=== PATIENT | male | born 1975 | race Hispanic/Latino ===

== ENCOUNTER 2017-06-10 07:49 | Day surgery (SDC) | payer BC ==
[2017-06-09 15:00] LABS: Absolute Lymphocytes (CBC) 1.8 K/uL (0.7-4.9); Absolute Monocytes 0.6 K/uL (0.1-1.3); Absolute Neutrophil 6.9 K/uL (1.8-8.0); Basophils % 0.4 % (0-1.3); Eosinophils % 0.8 % (0-4.4); Hematocrit 39.3 % (39.6-49.0); Lymphocytes % 19.4 % (15.3-44.8); MCH 30.4 pg (27.0-35.0); MCV 92.5 fL (80-100); MPV 8.1 fL (7.6-11.3); Monocytes % 6.4 % (3.3-12.3); RBC Red Blood Cell Count 4.25 M/uL (4.33-5.43)
--- NOTE | 2017-06-09 15:00 | RAD REPORT ---
EXAM DESCRIPTION: Salud Dhillon (2 Views)06/09/2017 2:55 pm CLINICAL HISTORY: Preop COMPARISON: 2013 FINDINGS: The lungs appear clear of acute infiltrate. The heart is normal size IMPRESSION: No acute abnormalities displayed
[2017-06-09 15:18] LABS: Potassium 5.3 mEq/L (3.6-5.0)
--- NOTE | 2017-06-09 17:58 | EKG ---
Test Date: 2017-06-09 Test Time: 14:22:32 Supervisor Train Operations: MERY MEASUREMENT RESULTS: Intervals: Rate: 51 NC: 168 QRSD: 92 QT: 386 QTc: 355 [place]: P: 7 NC: 168 QRS: 35 T: 24 INTERPRETIVE STATEMENTS: Sinus bradycardia with sinus arrhythmia Otherwise normal ECG Compared to ECG 01/06/2016 08:18:22 Sinus rhythm no longer present Electronically Signed On 06-09-17 17:57:56 CDT by Alexander Lundy
[2017-06-10] MEDS ORDERED: CEFAZOLIN/SWI 1gm 1 GM/10 ML SYR ONE (08:07)
[2017-06-10] MEDS ORDERED: NA CHLORIDE 0.9% 1,000 ML ONE (08:07)
[2017-06-10] MEDS ORDERED: COLLAGENASE 30 GM OINTMENT TOP ONE (08:54)
[2017-06-10] MEDS ORDERED: PROPOFOL 200 MG/20 ML VIAL IV ONE (09:01)
[2017-06-10] MEDS ORDERED: LIDOCAINE 2% MPF 5 ML VIAL ONE (09:02)
[2017-06-10] MEDS ORDERED: MIDAZOLAM HCL 2 MG/2 ML INJ ONE (09:02)
[2017-06-10] MEDS ORDERED: FENTANYL CITR 100 MCG/2 ML ONE (09:03)
[2017-06-10 10:06] VITALS: O2SAT 100
[2017-06-10] MEDS: MEPERIDINE HCL 50 MG/ML AMP ONE ×2 (10:06→10:14)
[2017-06-10] MEDS ORDERED: CODEINE 30MG/APAP 300MG TAB ONE (10:58)
[2017-06-10 11:06] VITALS: BP 132/74; TEMP 98.2
--- NOTE | 2017-06-10 20:52 | OP ---
Date of Procedure: 06/10/2017 Surgeon: Duglas Saunders MD Preoperative Diagnosis: Right scrotal abscess. Postoperative Diagnosis: Right scrotal abscess. Procedure Performed: Incision, drainage, and debridement of right scrotal abscess. Estimated Blood Loss: Minimal. Specimen: Pus. Findings: As above. Anesthesia: General. Complications: None. Disposition: The patient tolerated the procedure in stable condition and taken to Recovery in good g eneral condition. Procedure In Detail: The patient was brought to the OR and placed in supine position. General anest hesia was begun. The patient was prepped and draped in usual sterile fashion in the lithotomy positi on. Then Marcaine 0.5% was infiltrated locally. A 15-blade was used to make a 3 cm incision. Subcu taneous tissue was divided. Pus evacuated. Loculation broken up. Necrotic tissue debrided. Wound irrigated. Bleeding controlled with pressure. Wet-to-dry normal saline dressing change applied. The patient tolerated the procedure in stable condition and taken to Recovery in good general condition. /MODL Voice ID: [id number] Report ID: [id number]
--- NOTE | 2017-06-10 20:58 | DS ---
Date of Discharge: 06/10/2017 Discharge Note: The patient will go to Day Surgery and home when stable. Disposition: Home. Condition: Stable. Discharge Instructions: Resume home medications and diet. Activity as tolerated. No heavy lifting. Remove outer dressing in a.m. wet-to-dry normal saline dressing changes daily. Tylenol No. 3 one t ablet p.o. q.4 p.r.n. pain, and the patient has a prescription for Levaquin already. Follow up in my office 1-2 weeks. SHAHLA/TAMIKO Voice ID: [id number] Report ID: [id number]
== END 2017-06-10 11:31 | disposition home or self-care (01) ==
LOC: OR 07:49
PROVIDERS: ATTEND Surgery
PROC: 0V950ZZ Drainage of Scrotum, Open Approach (ICD-10-PCS; principal; 2017-06-10 09:00)
DX: N49.2 Inflammatory disorders of scrotum (principal)
CPT/HCPCS: 36415; 71046; 80048; 82962; 85025; 87070; 87205; 93005; J0690; J2175; J2250; J3010; J3590; J7030

== ENCOUNTER 2018-09-08 08:29 | Emergency (ER) | payer BC ==
[2018-09-08] MEDS ORDERED: NA CHLORIDE 0.9% 1,000 ML ONE (08:41)
[2018-09-08 08:55] LABS: Absolute Lymphocytes (CBC) 2.9 K/uL (0.7-4.9); Basophils % 0.4 % (0-1.3); Hematocrit 30.1 % (39.6-49.0); MPV 8.2 fL (7.6-11.3); RBC Red Blood Cell Count 3.19 M/uL (4.33-5.43)
[2018-09-08 09:31] LABS: Potassium 3.9 mmol/L (3.5-5.1)
--- NOTE | 2018-09-08 09:59 | RAD REPORT ---
EXAM DESCRIPTION: CT - Head C Spine Cap Wo Con - 09/08/2018 9:17 am CLINICAL HISTORY: Fall, syncopal episode, head, neck, chest and abdomen pain, history of gastric byp ass COMPARISON: None. TECHNIQUE: Axial [address] head images were obtained. Axial [address] cervical spine images were obtain ed with sagittal and coronal reconstruction images reviewed. Axial 5 mm images of the chest, abdomen and pelvis were obtained. All CT scans are performed using dose optimization technique as appropriate and may include automated exposure control or mA/KV adjustment according to patient size. FINDINGS: No intracranial hemorrhage, mass or edema. No midline shift or abnormal fluid collection. Mastoid air cells are clear. Facial bones, orbits and sinuses are separately detailed. . No skull fra cture. Cervical bodies are normal in height and alignment. No fracture or acute bone finding.Minimal disc sp alex narrowing and endplate spurring at C5-6. No canal or foramen stenosis suspected.No prevertebral s oft tissue thickening or paraspinal mass.Central canal detail is inherently limited on CT imaging. CT chest shows no pneumothorax, pulmonary contusion or pleural fluid collection. No mediastinal hem atoma and the aorta and pulmonary arteries are unremarkable. No chest will mass or abnormal axillary finding. No displaced rib fracture or other significant bony finding. CT abdomen and pelvis show no injury to solid abdominal viscera. Cholecystectomy clips are present. N o biliary tree dilatation. Gastric bypass surgical changes seen. No bowel injury or significant findi ng. No free air, free fluid or abnormal stranding. No hernia, mass or bulky lymphadenopathy. No urin shefali bladder abnormality. Slight wedging of the T11 and T12 bodies noted. This is not uncommonly seen even in asymptomatic yuri ents. Correlation is needed with any back pain symptoms referable to the thoracolumbar junction. No a cute fracture planes are seen. Patient has degenerative gas in the disc spaces of L2-3, L3-4 and L4-5 . Central canal detail is limited. IMPRESSION: No hemorrhage, edema or acute CT Head finding. Facial bones, orbits and sinuses are sep arately detailed. Minimal cervical spine degenerative change with no acute finding. Central canal detail is inherently limited regarding assessment of disc herniation or cord injury. No significant CT Chest finding. No significant CT Abdomen and Pelvis finding. Patient has mild wedging of the T11 and T12 vertebrae. An acute fracture line is not seen on CT imagi ng. Correlation is needed with any acute symptoms referable to the thoracolumbar junction. MR imaging can be performed as warranted. Patient has significant for age degenerative change at L2-3, L3-4 and L4-5 disc spaces. Again, Centra l canal detail is limited regarding accurate assessment of disc bulge or herniation.
--- NOTE | 2018-09-08 10:04 | RAD REPORT ---
EXAM DESCRIPTION: CT - Facial Bones W/ Mpr - 09/08/2018 9:17 am CLINICAL HISTORY: Dizziness, fall, syncope, left-sided facial trauma COMPARISON: None. TECHNIQUE: Axial 2 millimeter thick images of the facial bones were obtained with sagittal and coron al reconstruction imaging. All CT scans are performed using dose optimization technique as appropriate and may include automated exposure control or mA/KV adjustment according to patient size. FINDINGS: Mandible is intact. Condyles are normally positioned. Mastoid air cells are clear. Mild mu cosal thickening changes are present along the floor of each maxillary sinus with trace mucosal thick ening in the ethmoid air cells. No acute sinus finding. No facial bone fracture is identified. Very m inimal left deviation of the mid nasal septum seen. There is subtle cortical irregularity of the nasal bone near the anterior tip. However, this is not c onfirmed as a fracture. No globe or orbital content abnormality. No foreign body in the soft tissues. On CT imaging no signif icant mass or hematoma. Patient has a very minimal edema or contusion pattern in the subcutaneous fat overlying the anterolateral left maxilla. IMPRESSION: Minimal contusion or edema changes in the subcutaneous fatty tissues left maxilla region . No foreign body or air in the soft tissues. No facial bone fracture.
[2018-09-08 10:45] LABS: Urine Blood NEGATIVE (NEG); Urine Glucose NEGATIVE (NEG); Urine Protein 1+ (NEG)
[2018-09-08] MEDS ORDERED: HYDROCODONE/APAP 10/325 TAB ONE (11:20)
[2018-09-08] MEDS ORDERED: LIDOCAINE 1% MPF 5 ML VIAL ONE (11:24)
--- NOTE | 2018-09-08 11:43 | ER ---
Nurse's Notes [facility] Name: Rhett Ayers Age: 42 yrs Sex: Male : 1975 Arrival Date: 09/08/2018 Time: 08:34 Bed 13 Private MD: Diagnosis: Syncope and collapse;Superficial injury of head;Lip laceration Presentation: 09/08 08:35 Presenting complaint: EMS states: Patient was feeling dizzy, generally not feeling ss well, stepped out of care, walked approximately 5-10 feet and had a syncopal episode, falling face first onto concrete. Patient is awake and alert on arrival to ED. Asked about his wallet twice and had forgotten he already asked about it. C/o pain to L side of face and L lateral chest wall. Transition of care: patient was not received from another setting of care. Onset of symptoms was September 08, 2018. Risk Assessment: Do you want to hurt yourself or someone else? Patient reports no desire to harm self or others. Initial Sepsis Screen: Does the patient meet any 2 criteria? No. Patient's initial sepsis screen is negative. Does the patient have a suspected source of infection? No. Patient's initial sepsis screen is negative. Care prior to arrival: Two failed IV attempts, BGL 170. 08:35 Method Of Arrival: EMS: [facility] ss 08:35 Acuity: SANTIAG[place] 1 ss 08:35 Mechanism of Injury: Fall from standing position. Trauma event details: Injury occurred ss in the [facility], Injury occurred: in a public building. Injury occurred: September 08, 2018. Trauma Activation: Physician: ED Physician; Name: Noe; Notified At: 08:20; Arrived At: 08:20 Physician: General Surgeon; Name: ; Notified At: 08:20; Arrived At: Physician: Radiology; Name: Siomara Sales; Notified At: 08:20; Arrived At: 08:23 Physician: Respiratory; Name: ; Notified At: 08:20; Arrived At: Physician: Lab; Name: ; Notified At: 08:20; Arrived At: Trauma Activation: Alert Physician: ED Physician; Name: ; Notified At: ; Arrived At: Physician: General Surgeon; Name: ; Notified At: ; Arrived At: Physician: Radiology; Name: ; Notified At: ; Arrived At: Physician: Respiratory; Name: ; Notified At: ; Arrived At: Physician: Lab; Name: ; Notified At: ; Arrived At: Historical: - Allergies: 08:40 No Known Allergies; ss - PMHx: 08:40 Diabetes - NIDDM; Hypertension; orthostatic hypotension; PUD; ss - PSHx: 08:40 Gastric Bypass; ss - Immunization history:: Adult Immunizations up to date. - Social history:: Smoking status: Patient/guardian denies using tobacco. - Immunization history: Last tetanus immunization: - up to date. - Ebola Screening: : Patient denies exposure to infectious person Patient denies travel to an Ebola-affected area in the 21 days before illness onset. Screenin:09 Abuse screen: Denies threats or abuse. Denies injuries from another. Nutritional ss screening: No deficits noted. Tuberculosis screening: Never had TB. Fall Risk Fall in past 12 months (25 points). Secondary diagnosis (15 points) syncope/ hypotension. IV access (20 points). Ambulatory Aid- None/Bed Rest/Nurse Assist (0 pts). Gait- Normal/Bed Rest/Wheelchair (0 pts) Mental Status- Oriented to own ability (0 pts). Primary Survey: 08:35 NO uncontrolled hemorrhage observed. A: The patient is alert. Airway: patent, No ss supplemental oxygen in use on arrival. Oral cavity: clear, Trachea midline. Breathing/Chest: Respiratory pattern: regular, Respiratory effort: spontaneous, unlabored, Breath sounds: clear, bilaterally. Chest inspection: symmetrical rise and fall of the chest. Circulation: Pulses: palpable right radial artery, right posterior tibial artery, left radial artery and left posterior tibial artery. Skin color: pink. Disability Alert. Exposure/Environment: There is no evidence of uncontrolled external bleeding. No obvious injuries are noted at this time. 08:50 Reassessment Airway Airway Patent Breathing/Chest Respiratory pattern Regular rb1 Respiratory effort Spontaneous Unlabored Breath sounds Clear Chest inspection Symmetrical Circulation Heart rhythm Sinus donna Heart tones Present Pulses Palpable Color [place] Temperature Warm Disability Alert. Secondary Survey: 08:35 HEENT: Face Other dry blood noted to mouth, no active bleeding at this time. Eyes: No ss injury or deformity noted. Ears: clear Nose: clear Throat: No injury or deformity noted. : Reports penile swelling. Patient is currently on antibiotic therapy for UTI treatment. Musculoskeletal: Circulation, motion, and sensation intact. Range of motion: intact in all extremities, Swelling absent. 08:50 Gastrointestinal: No deficits noted. rb1 Assessment: 08:33 General: Appears uncomfortable, Behavior is calm, cooperative, Reports intermittent ss fatigue and dizziness since yesterday evening. 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 reports that patient blood pressure was low last night. Denies fever, feeling ill. Pain: Complains of pain in L side of face, L lateracl chest wall Pain currently is 9 out of 10 on a pain scale. Quality of pain is described as aching, tender, Is continuous, Aggravated by increased activity, repositioning. Neuro: Level of Consciousness is awake, alert, obeys commands, Oriented to person, place, time, situation, Tester/Lift Trucker are equal bilaterally Moves all extremities. Full function Speech is normal, Facial symmetry appears normal, Pupils are PERRLA. Neuro: Reports dizziness, since yesterday headache in entire since after syncopal episode. Cardiovascular: Pulses are palpable in right radial artery, right posterior tibial artery, left radial artery and left posterior tibial artery Rhythm is sinus bradycardia. Respiratory: Airway is patent Respiratory effort is even, unlabored, Respiratory pattern is regular, symmetrical, Breath sounds are clear bilaterally. Denies cough, shortness of breath labored breathing, pain with respiration, pain with cough, pain with movement, air hunger. GI: Patient currently denies abdominal pain, diarrhea, nausea, vomiting. : Reports currently taking cipro for treatment of UTI. EENT: Nares are clear no obvious chips in teeth noted. Patient believes he may have a small chip in one of his teeth because he feels some grit in his mouth. No foreign body noted. Oral mucosa is moist. Throat is clear. Derm: Skin is intact, is healthy with good turgor, Skin is pink, warm \T\ dry. normal, Skin temperature is warm. Musculoskeletal: Circulation, motion, and sensation intact. Range of motion: intact in all extremities, Swelling present in upper vermilion border. Injury Description: 0.5-1.0 cm laceration noted to L upper lip. 09:09 Reassessment: Accompanied patient to CT now. Patient is awake, alert and oriented x 3. ss Respirations remain even and unlabored. 09:24 Reassessment: back from CT. at bedside. Patient c/o only of L sided facial pain, L ss lateral chest wall pain. Respirations are even and unlabored. A\T\O x3. 10:20 Reassessment: Patient appears in no apparent distress at this time. Patient and/or rb1 family updated on plan of care and expected duration. Pain level reassessed. Patient is alert, oriented x 3, equal unlabored respirations, skin warm/dry/pink. 11:20 Reassessment: Patient appears in no apparent distress at this time. No changes from rb1 previously documented assessment. Family at bedside. 12:00 Reassessment: Provider at bedside suturing the pt. lip. rb1 12:10 Reassessment: Discharge pending due to provider performing wound care at bedside. rb1 Vital Signs: 08:34 BP 76 / 49; Pulse 54; Resp 16; Pulse Ox 100% on R/A; Weight 117.03 kg; Height 6 ft. 2 ss in. (187.96 cm); Pain 9/10; 08:35 Temp 97.9(O); ss 09:01 BP 84 / 37; Pulse 52; ss 09:22 BP 96 / 65; Pulse 48; Resp 16; Pulse Ox 100% on R/A; ss 10:20 BP 98 / 59; Pulse 44; Resp 12; Temp 98.0(O); Pulse Ox 100% on R/A; Pain 9/10; rb1 11:20 BP 106 / 73; Pulse 50; Resp 13; Temp 98.1(O); Pulse Ox 100% on R/A; Pain 9/10; rb1 12:20 BP 105 / 71; Pulse 51; Resp 17; Temp 98.1(O); Pulse Ox 100% on R/A; Pain 0/10; rb1 08:34 Body Mass Index 33.12 (117.03 kg, 187.96 cm) Ivan Coma Score: 08:35 Eye Response: spontaneous(4). Verbal Response: oriented(5). Motor Response: obeys ss commands(6). Total: 15. 09:22 Eye Response: spontaneous(4). Verbal Response: oriented(5). Motor Response: obeys ss commands(6). Total: 15. Trauma Score (Adult): 08:35 Eye Response: spontaneous(1); Verbal Response: oriented(1); Motor Response: obeys ss commands(2); Systolic BP: 76 to 89 mm Hg(3); Respiratory Rate: 10 to 29 per min(4); Ivan Score: 15; Trauma Score: 11 09:22 Eye Response: spontaneous(1); Verbal Response: oriented(1); Motor Response: obeys ss commands(2); Systolic BP: > 89 mm Hg(4); Respiratory Rate: 10 to 29 per min(4); Ivan Score: 15; Trauma Score: 12 10:20 Eye Response: spontaneous(1); Verbal Response: oriented(1); Motor Response: obeys rb1 commands(2); Systolic BP: > 89 mm Hg(4); Respiratory Rate: 10 to 29 per min(4); [place] Score: 15; Trauma Score: 12 11:20 Eye Response: spontaneous(1); Verbal Response: oriented(1); Motor Response: obeys rb1 commands(2); Systolic BP: > 89 mm Hg(4); Respiratory Rate: 10 to 29 per min(4); Ivan Score: 15; Trauma Score: 12 12:20 Eye Response: spontaneous(1); Verbal Response: oriented(1); Motor Response: obeys rb1 commands(2); Systolic BP: > 89 mm Hg(4); Respiratory Rate: 10 to 29 per min(4); Ivan Score: 15; Trauma Score: 12 NIH Stroke Scale Scores: 08:35 NIHSS Score: 0 ss ED Course: 08:34 Patient arrived in ED. ss 08:34 Arm band placed on right wrist. ss 08:35 Patient maintains SpO2 saturation greater than 95% on room air. ss 08:38 Andrés Liu MD is Attending Physician. kdr 08:39 Triage completed. ss 08:40 Patient has correct armband on for positive identification. Placed in gown. Bed in low ss position. Call light in reach. Side rails up X2. cardiac monitor on. Pulse ox on. NIBP on. Warm blanket given. 08:40 Thermoregulation: warm blanket given to patient. rb1 08:45 Inserted saline lock: 22 gauge in right antecubital area, using aseptic technique. ss Blood collected. 08:46 EKG done, by calibration technician. reviewed by Andrés Liu MD. sm3 09:20 CT Traumagram (Head C Spine CAP wo con) In Process Unspecified. EDMS 09:20 Facial Bones W/ Mpr In Process Unspecified. EDMS 09:23 Claudine Werner, RN is Primary Nurse. ss 12:30 No provider procedures requiring assistance completed. IV discontinued, intact, rb1 bleeding controlled, No redness/swelling at site. Pressure dressing applied. Administered Medications: 08:45 Drug: NS 0.9% 1000 ml Route: IV; Rate: 1 bolus; Site: right antecubital; ss 09:30 Follow up: IV Status: Completed infusion; IV Intake: 1000ml ss 11:23 Drug: [place] 10 mg-325 mg 1 tabs Route: PO; rb1 Intake: 09:30 IV: 1000ml; Total: 1000ml. ss 12:30 PO: 25ml (Water); IV: 1000ml (IV Fluid); Total: 2025ml. rb1 Outcome: 11:42 Discharge ordered by . kdr 11:53 Patient's length of stay in the Emergency Department was greater than 2 hours. rb1 POCPatient's length of stay extended due to 12:30 Discharged to home via wheelchair, with family. rb1 12:30 Condition: stable 12:30 Discharge instructions given to patient, Instructed on discharge instructions, follow up and referral plans. medication usage, Demonstrated understanding of instructions, follow-up care, medications, Prescriptions given X 1. 12:35 Patient left the ED. rb1 NIH Stroke Scale - NIH Stroke Score Date: 09/08/2018 Time: 08:35 Total Score = 0 1a. Level of Consciousness (LOC) - 0(Alert) 1b. Level of Consciousness (LOC) (Year \T\ Age) - 0(Both) 1c. LOC Commands (Open \T\ Closes Eyes/Breaster) - 0(Both) 2. Best Gaze (Lateral Gaze Paresis) - 0(Normal) 3. Visual Field Loss - 0(No visual loss) 4. Facial Palsy - 0(Normal) 5a. Left Arm: Motor (10-second hold) - 0(No drift) 5b. Right Arm: Motor (10-second hold) - 0(No drift) 6a. Left Leg: Motor (5-second hold - always test supine) - 0(No drift) 6b. Right Leg: Motor (5-second hold - always test supine) - 0(No drift) 7. Limb Ataxia (finger/nose \T\ heel/gamez - test with eyes open) - 0(Absent) 8. Sensory Loss (pinprick arms/legs/face) - 0(Normal) 9. Best Language: Aphasia (description/naming/reading) - 0(No aphasia) 10. Dysarthria (speech clarity - read or repeat words) - 0(Normal) 11. Extinction and Inattention (visual/tactile/auditory/spatial/personal) - 0(No abnormality) Initials: ss Signatures: Dispatcher [employer] EDMS Andrés Liu MD MD [facility] Claudine Werner RN RN ss Sade Fisher RN RN rb1 Ольга [email or web address] Corrections: (The following items were deleted from the chart) 09:25 08:35 Ivan Score=15, Trauma Score=12, [facility] 18:28 12:30 Discharge instructions given to patient, Instructed on discharge rb1 instructions, follow up and referral plans. Demonstrated understanding of instructions, follow-up care, rb1
--- NOTE | 2018-09-08 11:43 | EDPHYS ---
Physician Documentation [facility] Name: Rhett Ayers Age: 42 yrs Sex: Male : 1975 Arrival Date: 09/08/2018 Time: 08:34 Bed 13 Private MD: ED Physician Andrés Liu HPI: 09/08 08:42 This 42 yrs old Male presents to ER via EMS with complaints of Syncope. kdr 08:42 The patient has experienced syncope, became unresponsive, collapsed. Onset: The kdr symptoms/episode began/occurred suddenly, just prior to arrival. Duration: This was a single episode, Brief. Context: the episode(s) was witnessed, by a bystander, occurred at a store, on a street or driveway, occurred while the patient was standing, walking, Just prior to the episode the patient experienced. Associated injury: Head/face: left jain, left frontal area and left side of forehead, contusion, laceration, pain, swelling, tenderness. Associated signs and symptoms: Pertinent positives: weakness, Hypotension. Current symptoms: Currently, the patient is not experiencing any symptoms, Mouth and left facial pain s/p fall. The patient has not experienced similar symptoms in the past. The patient has not recently seen a physician. Historical: - Allergies: 08:40 No Known Allergies; ss - PMHx: 08:40 Diabetes - NIDDM; Hypertension; orthostatic hypotension; PUD; ss - PSHx: 08:40 Gastric Bypass; ss - Immunization history:: Adult Immunizations up to date. - Social history:: Smoking status: Patient/guardian denies using tobacco. - Immunization history: Last tetanus immunization: - up to date. - Ebola Screening: : Patient denies exposure to infectious person Patient denies travel to an Ebola-affected area in the 21 days before illness onset. ROS: 08:42 Constitutional: Negative for fever, chills, and weight loss, Eyes: Negative for injury, kdr pain, redness, and discharge, ENT: Negative for injury, pain, and discharge, Neck: Negative for injury, pain, and swelling, Cardiovascular: Negative for chest pain, palpitations, and edema, Respiratory: Negative for shortness of breath, cough, wheezing, and pleuritic chest pain, Abdomen/GI: Negative for abdominal pain, nausea, vomiting, diarrhea, and constipation, Back: Negative for injury and pain, : Negative for injury, bleeding, discharge, and swelling, MS/Extremity: Negative for injury and deformity, Skin: Negative for injury, rash, and discoloration he does have [id number] and contusioni to the left lateral upper lip Psych: Negative for depression, anxiety, suicide ideation, homicidal ideation, and hallucinations, Allergy/Immunology: Negative for hives, rash, and allergies, Endocrine: Negative for neck swelling, polydipsia, polyuria, polyphagia, and marked weight changes, Hematologic/Lymphatic: Negative for swollen nodes, abnormal bleeding, and unusual bruising. 08:42 Neuro: Positive for dizziness, syncope, Negative for altered mental status, gait disturbance, headache, hearing loss, loss of consciousness, numbness, seizure activity, speech changes, tingling, tremor, visual changes, weakness. Exam: 08:42 Constitutional: This is a well developed, well nourished patient who is awake, alert, kdr and in no acute distress. Head/Face: Normocephalic - minor contuions and abrasions to left side of head and face Eyes: Pupils equal round and reactive to light, extra-ocular motions intact. Lids and lashes normal. Conjunctiva and sclera are non-icteric and not injected. Cornea within normal limits. Periorbital areas with no swelling, redness, or edema. Neck: Trachea midline, no thyromegaly or masses palpated, and no cervical lymphadenopathy. Supple, full range of motion without nuchal rigidity, or vertebral point tenderness. No Meningismus. Chest/axilla: Normal chest wall appearance and motion. Nontender with no deformity. No lesions are appreciated. Cardiovascular: Regular rate and rhythm with a normal S1 and S2. No gallops, murmurs, or rubs. Normal PMI, no JVD. No pulse deficits. Respiratory: Lungs have equal breath sounds bilaterally, clear to auscultation and percussion. No rales, rhonchi or wheezes noted. No increased work of breathing, no retractions or nasal flaring. Abdomen/GI: Soft, non-tender, with normal bowel sounds. No distension or tympany. No guarding or rebound. No evidence of tenderness throughout. Back: No spinal tenderness. No costovertebral tenderness. Full range of motion. MS/ Extremity: Pulses equal, no cyanosis. Neurovascular intact. Full, normal range of motion. Neuro: Awake and alert, GCS 15, oriented to person, place, time, and situation. Cranial nerves II-XII grossly intact. Motor strength 5/5 in all extremities. Sensory grossly intact. Cerebellar exam normal. Normal gait. Psych: Awake, alert, with orientation to person, place and time. Behavior, mood, and affect are within normal limits. 08:42 Skin: injury, laceration(s), the wound is approximately 1 cm(s), with a depth of .5 cm(s), of the gums, upper vermilion border and left corner of mouth. Vital Signs: 08:34 BP 76 / 49; Pulse 54; Resp 16; Pulse Ox 100% on R/A; Weight 117.03 kg; Height 6 ft. 2 ss in. (187.96 cm); Pain 9/10; 08:35 Temp 97.9(O); ss 09:01 BP 84 / 37; Pulse 52; ss 09:22 BP 96 / 65; Pulse 48; Resp 16; Pulse Ox 100% on R/A; ss 10:20 BP 98 / 59; Pulse 44; Resp 12; Temp 98.0(O); Pulse Ox 100% on R/A; Pain 9/10; rb1 11:20 BP 106 / 73; Pulse 50; Resp 13; Temp 98.1(O); Pulse Ox 100% on R/A; Pain 9/10; rb1 12:20 BP 105 / 71; Pulse 51; Resp 17; Temp 98.1(O); Pulse Ox 100% on R/A; Pain 0/10; rb1 08:34 Body Mass Index 33.12 (117.03 kg, 187.96 cm) NIH Stroke Scale Scores: 08:35 NIHSS Score: 0 Ivan Coma Score: 08:35 Eye Response: spontaneous(4). Verbal Response: oriented(5). Motor Response: obeys ss commands(6). Total: 15. 09:22 Eye Response: spontaneous(4). Verbal Response: oriented(5). Motor Response: obeys ss commands(6). Total: 15. Trauma Score (Adult): 08:35 Eye Response: spontaneous(1); Verbal Response: oriented(1); Motor Response: obeys ss commands(2); Systolic BP: 76 to 89 mm Hg(3); Respiratory Rate: 10 to 29 per min(4); Ivan Score: 15; Trauma Score: 11 09:22 Eye Response: spontaneous(1); Verbal Response: oriented(1); Motor Response: obeys ss commands(2); Systolic BP: > 89 mm Hg(4); Respiratory Rate: 10 to 29 per min(4); Ivan Score: 15; Trauma Score: 12 10:20 Eye Response: spontaneous(1); Verbal Response: oriented(1); Motor Response: obeys rb1 commands(2); Systolic BP: > 89 mm Hg(4); Respiratory Rate: 10 to 29 per min(4); [place] Score: 15; Trauma Score: 12 11:20 Eye Response: spontaneous(1); Verbal Response: oriented(1); Motor Response: obeys rb1 commands(2); Systolic BP: > 89 mm Hg(4); Respiratory Rate: 10 to 29 per min(4); Ivan Score: 15; Trauma Score: 12 12:20 Eye Response: spontaneous(1); Verbal Response: oriented(1); Motor Response: obeys rb1 commands(2); Systolic BP: > 89 mm Hg(4); Respiratory Rate: 10 to 29 per min(4); [place] Score: 15; Trauma Score: 12 Laceration: 13:15 Wound Repair of 3cm ( 1.2in ) subcutaneous laceration to left upper lip - internal. jr8 Distal neuro/vascular/tendon intact. Anesthesia: Local anesthetic administered with 1.5 mls of 1% lidocaine. Wound prep: Wound explored extensively, Copious irrigation. Skin closed with 2 5-0 fast absorbing chromic using simple sutures and sterile technique. Patient tolerated well. 13:17 Wound Repair of 1.5cm ( 0.6in ) subcutaneous laceration to left upper lip - external. jr8 Moderate contamination.. Distal neuro/vascular/tendon intact. Anesthesia: Local anesthetic administered with .7 mls of 1% lidocaine. Wound prep: Particulate matter removal of gravel by me, Wound explored extensively, Copious irrigation. Skin closed with 1 5-0 Prolene using simple sutures and sterile technique. Patient tolerated well. MDM: 08:42 Data reviewed: vital signs, nurses notes, lab test result(s), radiologic studies. kdr Counseling: I had a detailed discussion with the patient and/or guardian regarding: the historical points, exam findings, and any diagnostic results supporting the discharge/admit diagnosis, lab results, radiology results. 11:42 Patient medically screened. kdr 09/08 08:39 Order name: Basic Metabolic Panel; Complete Time: 10:40 kdr 09/08 13:58 Interpretation: CRE 2.99. kdr 09/08 08:39 Order name: CBC with Diff; Complete Time: 10:40 kdr 09/08 08:39 Order name: CT Traumagram (Head C Spine CAP wo con); Complete Time: 10:40 kdr 09/08 08:39 Order name: Creatinine for Radiology; Complete Time: 10:40 kdr 09/08 08:39 Order name: Type And Screen; Complete Time: 10:40 kdr 09/08 10:33 Order name: Urine Dipstick--Ancillary (enter results) eb 09/08 08:39 Order name: Labs collected and sent; Complete Time: 09:09 kdr 09/08 08:58 Order name: Facial Bones W/ Mpr; Complete Time: 10:40 EDMS Administered Medications: 08:45 Drug: NS 0.9% 1000 ml Route: IV; Rate: 1 bolus; Site: right antecubital; ss 09:30 Follow up: IV Status: Completed infusion; IV Intake: 1000ml ss 11:23 Drug: [place] 10 mg-325 mg 1 tabs Route: PO; rb1 Disposition: 14:21 Co-signature as Attending Physician, Andrés Liu MD I agree with the assessment and kdr plan of care. Disposition: 09/08/18 11:42 Discharged to Home. Impression: Syncope and collapse, Superficial injury of head, Lip laceration. - Condition is Stable. - Discharge Instructions: Nonspecific Chest Pain, Chkg-wz-Pfns, Facial Laceration, Tsws-wy-Xmax, Syncope, Ydsw-wb-Bzzm, Head Injury, Adult, Ytfe-yc-Ywch, Blunt Chest Trauma. - Prescriptions for Tylenol- Codeine #3 300-30 mg Oral Tablet - take 2 tablets by ORAL route every 6 hours As needed; 6 tablet. - Medication Reconciliation Form, Thank You Letter, Work release form form. - Follow up: Private Physician; When: 2 - 3 days; Reason: If symptoms return, Further diagnostic work-up, Recheck today's complaints, Continuance of care, Re-evaluation by your physician. - Problem is new. - Symptoms have improved. - Notes: External sutures out in 5 - 7 days NIH Stroke Scale - NIH Stroke Score Date: 09/08/2018 Time: 08:35 Total Score = 0 1a. Level of Consciousness (LOC) - 0(Alert) 1b. Level of Consciousness (LOC) (Year \T\ Age) - 0(Both) 1c. LOC Commands (Open \T\ Closes Eyes/Pharmacy Services Representative) - 0(Both) 2. Best Gaze (Lateral Gaze Paresis) - 0(Normal) 3. Visual Field Loss - 0(No visual loss) 4. Facial Palsy - 0(Normal) 5a. Left Arm: Motor (10-second hold) - 0(No drift) 5b. Right Arm: Motor (10-second hold) - 0(No drift) 6a. Left Leg: Motor (5-second hold - always test supine) - 0(No drift) 6b. Right Leg: Motor (5-second hold - always test supine) - 0(No drift) 7. Limb Ataxia (finger/nose \T\ heel/gamez - test with eyes open) - 0(Absent) 8. Sensory Loss (pinprick arms/legs/face) - 0(Normal) 9. Best Language: Aphasia (description/naming/reading) - 0(No aphasia) 10. Dysarthria (speech clarity - read or repeat words) - 0(Normal) 11. Extinction and Inattention (visual/tactile/auditory/spatial/personal) - 0(No abnormality) Initials: Signatures: Dispatcher [employer] EDMS Andrés Liu MD MD kdr Claudine Werner RN RN Tremayne Moses PA PA 8 Sade Fisher, RN RN rb1 Corrections: (The following items were deleted from the chart) 12:35 11:42 09/08/2018 11:42 Discharged to Home. Impression: Syncope and collapse; rb1 Superficial injury of head; Lip laceration. Condition is Stable. Forms are Medication Reconciliation Form, Thank You Letter, Antibiotic Education, Prescription Opioid Use. Follow up: Private Physician; When: 2 - 3 days; Reason: If symptoms return, Further diagnostic work-up, Recheck today's complaints, Continuance of care, Re-evaluation by your physician. Problem is new. Symptoms have improved. kdr
[2018-09-08 12:50] VITALS: O2SAT 100
[2018-09-08 12:56] VITALS: BP 106/73; TEMP 98.1
--- NOTE | 2018-09-09 12:38 | EKG ---
Test Date: 2018-09-08 Test Time: 08:36:44 Medical Support Specialist: OSMNA MEASUREMENT RESULTS: Intervals: Rate: 48 VT: 182 QRSD: 104 QT: 464 QTc: 414 [place]: P: 22 VT: 182 QRS: 62 T: 48 INTERPRETIVE STATEMENTS: Marked sinus bradycardia Abnormal ECG Compared to ECG 06/09/2017 14:22:32 Sinus arrhythmia no longer present Electronically Signed On 09-09-18 12:33:15 CDT by Gigi Bedolla
== END 2018-09-08 12:35 | disposition home or self-care (01) ==
LOC: ER 08:29
PROC: 0CQ0XZZ Repair Upper Lip, External Approach (ICD-10-PCS; principal; 2018-09-08)
DX: R55 Syncope and collapse (principal); S00.90XA Unspecified superficial injury of unspecified part of head, initial encounter; S01.511A Laceration without foreign body of lip, initial encounter; W18.39XA Other fall on same level, initial encounter; Y93.01 Activity, walking, marching and hiking; E11.9 Type 2 diabetes mellitus without complications; I10 Essential (primary) hypertension
CPT/HCPCS: 36415; 70450; 70486; 71250; 72125; 76377; 80048; 81003; 85025; 86850; 86900; 86901; 93005; 96360; 99291; 99292; J7030

== ENCOUNTER 2018-09-08 14:15 | Inpatient (IN) | payer BC ==
--- NOTE | 2018-09-08 14:32 | ER ---
Nurse's Notes [facility] Name: Rhett Ayers Age: 42 yrs Sex: Male : 1975 Arrival Date: 09/08/2018 Time: 14:17 Bed 7 Private MD: Diagnosis: Renal failure, closed head injury, syncope, chest wall pain s/p fall Presentation: 09/08 14:31 Presenting complaint: Patient states: "I passed out last night and this morning and my aa5 blood pressure was 70/50 but right now my blood pressure is high because I am hurting". Pt states "I was just seen here a little bit ago and Dr. Deleon sent me here again because I think he wants to admit me". Transition of care: patient was not received from another setting of care. Onset of symptoms was September 08, 2018. Risk Assessment: Do you want to hurt yourself or someone else? Patient reports no desire to harm self or others. Initial Sepsis Screen: Does the patient meet any 2 criteria? No. Patient's initial sepsis screen is negative. Does the patient have a suspected source of infection? No. Patient's initial sepsis screen is negative. Care prior to arrival: None. 14:31 Acuity: SANTIAGO 3 aa5 14:31 Method Of Arrival: Wheelchair aa5 Historical: - Allergies: 14:33 No Known Allergies; ss - PMHx: 14:33 Diabetes - NIDDM; Hypertension; Orthostatic hypotension; PUD; ss - PSHx: 14:33 Gastric Bypass; ss - Immunization history:: Adult Immunizations up to date. - Social history:: Smoking status: Patient/guardian denies using tobacco. - Ebola Screening: : Patient denies exposure to infectious person Patient denies travel to an Ebola-affected area in the 21 days before illness onset. Screenin:55 Abuse screen: Denies threats or abuse. Denies injuries from another. Nutritional sv screening: No deficits noted. Tuberculosis screening: No symptoms or risk factors identified. Fall Risk None identified. Assessment: 14:55 General: Appears in no apparent distress. uncomfortable, well developed, Behavior is sv calm, cooperative, appropriate for age. Pain: Complains of pain in "all over" Pain currently is 8 out of 10 on a pain scale. Neuro: Level of Consciousness is awake, alert, obeys commands, Oriented to person, place, time, situation, Moves all extremities. Full function Gait is steady, Speech is normal. Respiratory: Airway is patent Respiratory effort is even, unlabored, Respiratory pattern is regular, symmetrical. Derm: Skin is pink, warm \\T\\ dry. 15:50 Reassessment: Patient appears in no apparent distress at this time. No changes from sv previously documented assessment. Patient and/or family updated on plan of care and expected duration. Pain level reassessed. Patient is alert, oriented x 3, equal unlabored respirations, skin warm/dry/pink. 17:00 Reassessment: Dr Rich came to see the pt. sv Vital Signs: 14:35 BP 158 / 79; Pulse 72; Resp 18 S; Temp 98.0(O); Pulse Ox 100% on R/A; Weight 116.57 kg aa5 (R); Height 6 ft. 2 in. (187.96 cm) (R); Pain 8/10; 16:46 BP 147 / 76; Pulse 66; Resp 16; Temp 97.6; Pulse Ox 100% on R/A; Pain 3/10; hb 14:35 Body Mass Index 33.00 (116.57 kg, 187.96 cm) aa5 ED Course: 14:17 Patient arrived in ED. as 14:29 Andrés Liu MD is Attending Physician. kdr 14:29 Destiney Trevino MD is Hospitalizing Provider. kdr 14:29 Arm band placed on. aa5 14:33 Triage completed. aa5 14:39 Rosibel Arellano, MEGHANN is Primary Nurse. sv 14:55 Patient has correct armband on for positive identification. Placed in gown. Bed in low sv position. Call light in reach. Side rails up X2. Pulse ox on. NIBP on. Door closed. Warm blanket given. Head of bed elevated. 14:55 Initial lab(s) drawn, by me, sent to lab. Inserted saline lock: 20 gauge in right sv antecubital area, using aseptic technique. Blood collected. Flushed right antecubital with 5 ml normal saline. 16:50 No provider procedures requiring assistance completed. Patient admitted, IV remains in hb place. Administered Medications: 15:15 Drug: Zofran 4 mg Route: IVP; Site: right antecubital; sv 16:10 Follow up: Response: No adverse reaction hb 15:15 Drug: NS 0.9% 1000 ml Route: IV; Rate: 1 bolus; Site: right antecubital; sv 16:50 Follow up: Response: No adverse reaction; IV Status: Completed infusion; IV Intake: sv 1000ml 15:17 Drug: fentaNYL (PF) 50 mcg Route: IVP; Site: right antecubital; sv 16:10 Follow up: Response: No adverse reaction; Pain is decreased hb 16:50 Drug: NS 0.9% 1000 ml Route: IV; Rate: 150 ml/hr; Site: right antecubital; sv 16:51 Follow up: Response: No adverse reaction; IV Status: Infusion continued upon admission sv 17:07 Drug: Tylenol 1000 mg Route: PO; sv 17:07 Follow up: Response: No adverse reaction; Medication administered at discharge. sv Intake: 16:50 IV: 1000ml; Total: 1000ml. sv Outcome: 14:31 Decision to Hospitalize by Provider. kdr 15:45 No charge visit due to call back/ED request. ss 16:50 Admitted to Med/surg accompanied by tech, family with patient, via wheelchair, room hb 421, with chart, Report called to Xenia ZAVALETA 16:50 Condition: stable 16:50 Instructed on the need for admit, Demonstrated understanding of instructions. 17:08 Patient left the ED. sv Signatures: Rosibel Arellano, RN RN sv Andrés Liu MD MD kdr Martinez, Amelia as Calderon, Audri, RN RN aa5 Claudine Werner RN RN Jane Valle RN RN hb
--- NOTE | 2018-09-08 14:32 | EDPHYS ---
Physician Documentation [facility] Name: Rhett Ayers Age: 42 yrs Sex: Male : 1975 Arrival Date: 09/08/2018 Time: 14:17 Bed 7 Private MD: ED Physician Andrés Liu HPI: 09/08 14:32 This 42 yrs old Male presents to ER via Unassigned with complaints of Kidney kdr Problem. 14:32 The patient has been feeling generally weak and tired. He has not been eating or kdr drinking much due to gastric ulcers which he reports were diagnosed and managed by Dr. Castro. The patient had been seen earlier for syncopal episode. He reports that his BP had been low at home for some time. The renal function had not been appreciated on the earlier visit today. Onset: The symptoms/episode began/occurred at an unknown time. Severity of symptoms: At their worst the symptoms were mild in the emergency department the symptoms are unchanged. It is unknown whether or not the patient has had similar symptoms in the past. The patient has been seen by the GI recently for gastric ulcers. Historical: - Allergies: 14:33 No Known Allergies; ss - PMHx: 14:33 Diabetes - NIDDM; Hypertension; Orthostatic hypotension; PUD; ss - PSHx: 14:33 Gastric Bypass; ss - Immunization history:: Adult Immunizations up to date. - Social history:: Smoking status: Patient/guardian denies using tobacco. - Ebola Screening: : Patient denies exposure to infectious person Patient denies travel to an Ebola-affected area in the 21 days before illness onset. ROS: 14:32 Constitutional: Negative for fever, chills, and weight loss. kdr 14:32 Back: Positive for pain with movement, The patient has chronic back pain. Exam: 14:52 Constitutional: This is a well developed, well nourished patient who is awake, alert, kdr and in no acute distress. 14:52 Head/face: Noted is Tender and contusion to left head and face. 14:52 : The patient has had significant reconstructive genital surgery several years ago. He has mild swelling currently which the patient states comes and goes from time to time. Vital Signs: 14:35 BP 158 / 79; Pulse 72; Resp 18 S; Temp 98.0(O); Pulse Ox 100% on R/A; Weight 116.57 kg aa5 (R); Height 6 ft. 2 in. (187.96 cm) (R); Pain 8/10; 16:46 BP 147 / 76; Pulse 66; Resp 16; Temp 97.6; Pulse Ox 100% on R/A; Pain 3/10; hb 14:35 Body Mass Index 33.00 (116.57 kg, 187.96 cm) aa5 MDM: 14:31 Patient medically screened. kdr 09/09 07:55 Data reviewed: vital signs, nurses notes, lab test result(s), radiologic studies. kdr Counseling: I had a detailed discussion with the patient and/or guardian regarding: the historical points, exam findings, and any diagnostic results supporting the discharge/admit diagnosis, lab results, radiology results, the need for further work-up and treatment in the hospital. 09/08 14:47 Order name: Occult Blood--Ancillary; Complete Time: 16:55 sv 09/08 14:59 Order name: Echo with Doppler EDMS 09/08 14:59 Order name: Transferrin Sat/Iron Binding; Complete Time: 16:55 EDMS 09/08 14:59 Order name: Carotid Artery Bilateral; Complete Time: 16:55 EDMS 09/08 14:57 Order name: CONS Physician Consult EDMS 09/08 14:57 Order name: CONS Physician Consult EDMS 09/08 14:58 Order name: NPO; Complete Time: 15:30 EDMS Administered Medications: 09/08 15:15 Drug: Zofran 4 mg Route: IVP; Site: right antecubital; sv 16:10 Follow up: Response: No adverse reaction hb 15:15 Drug: NS 0.9% 1000 ml Route: IV; Rate: 1 bolus; Site: right antecubital; sv 16:50 Follow up: Response: No adverse reaction; IV Status: Completed infusion; IV Intake: sv 1000ml 15:17 Drug: fentaNYL (PF) 50 mcg Route: IVP; Site: right antecubital; sv 16:10 Follow up: Response: No adverse reaction; Pain is decreased hb 16:50 Drug: NS 0.9% 1000 ml Route: IV; Rate: 150 ml/hr; Site: right antecubital; sv 16:51 Follow up: Response: No adverse reaction; IV Status: Infusion continued upon admission sv 17:07 Drug: Tylenol 1000 mg Route: PO; sv 17:07 Follow up: Response: No adverse reaction; Medication administered at discharge. sv Disposition: 09/08/18 14:31 Hospitalization ordered by Destiney Trevino for Inpatient Admission. Preliminary diagnosis is Renal failure, closed head injury, syncope, chest wall pain s/p fall. - Bed requested for Telemetry/MedSurg (Inpatient). - Status is Inpatient Admission. sv - Condition is Fair. - Problem is new. - Symptoms are unchanged. UTI on Admission? Yes Signatures: Dispatcher [employer] EDPA Rosibel Arellano RN RN sv Ene Thomas RN RN dw Andrés Liu MD MD [facility] Claudine Werner RN RN Jane Valle RN Corrections: (The following items were deleted from the chart) 15:00 14:59 Iron ordered. EDPA EDPA 16:16 14:31 Hospitalization Ordered by Destiney Trevino MD for Inpatient Admission. Preliminary dw diagnosis is Renal failure, closed head injury, syncope, chest wall pain s/p fall. Bed requested for Telemetry/MedSurg (Inpatient). Status is Inpatient Admission. Condition is Fair. Problem is new. Symptoms are unchanged. UTI on Admission? Yes. kdr 17:08 16:16 09/08/2018 14:31 Hospitalization Ordered by Destiney Trevino MD for Inpatient sv Admission. Preliminary diagnosis is Renal failure, closed head injury, syncope, chest wall pain s/p fall. Bed requested for Telemetry/MedSurg (Inpatient). Status is Inpatient Admission. Condition is Fair. Problem is new. Symptoms are unchanged. UTI on Admission? Yes. dw
[2018-09-08] MEDS: NA CHLORIDE 0.9% 1,000 ML IV SCH (15:00)
[2018-09-08] MEDS ORDERED: NA CHLORIDE 0.9% 2,000 ML ONE (15:07)
[2018-09-08] MEDS ORDERED: ONDANSETRON 4 MG/2 ML VIAL ONE (15:07)
[2018-09-08] MEDS ORDERED: FENTANYL CITR 100 MCG/2 ML ONE (15:07)
--- NOTE | 2018-09-08 16:20 | P.HP ---
Certification for Inpatient Patient admitted to: Inpatient With expected LOS: >2 Midnights Patient will require the following post-hospital care: None Practitioner: I am a practitioner with admitting privileges, knowledge of patient current condition, hospital course, and medical plan of care. Services: Services provided to patient in accordance with Admission requirements found in Title 42 Section 412.3 of the Code of Federal Regulations Patient History Date of Service: 09/08/18 Primary Care Provider: Dr Deleon Reason for admission: Syncope History of Present Illness: This is a 42-year-old male with significant past medical history of gastric ulcer who presented to the ED complaining of having a syncopal episode. Patient was seen this morning in the ER after he had a syncopal episode and hit his head on the concrete. At that time trauma g was performed which was negative for any acute abnormality however consistent with chronic degenerative disease. Patient at that time was given fluids and was discharged from the ER to follow up with PCP under stable condition. However patient continued to have syncopal episode at the house and thus decided to come back to the ER. Patient stated that for past couple of weeks he has been having low blood pressure which is primary care doctor has been working on and has also been diagnosed with iron-deficiency anemia along with gastric ulcers. Patient was seen recently by GI physician in August and had an MRCP done to rule out any acute abnormality in the gallbladder area. MRCP was negative and consistent with normal post cholecystectomy MRCP. Patient denies having any fever chills nausea vomiting or any other associated symptoms at this. Allergies No Known Allergies Allergy (Verified 06/09/17 14:09) Home Medications: Gabapentin [Neurontin] 100 mg PO TID 01/06/16 Tizanidine HCl 4 mg PO TID 01/06/16 Lisinopril [Prinivil] 10 mg PO [id number] 06/09/17 Metformin HCl [Glucophage] 500 mg PO BIDWM 06/09/17 levoFLOXacin [Levaquin] 500 mg PO DAILY 06/09/17 - Past Medical/Surgical History Diabetic: No -: Chronic back pain -: R knee surgery -: Gastric bypass -: Phimosis skin graft -: Circumcision -: Jackie - Social History Alcohol use: No CD- Drugs: No Caffeine use: Yes Review of Systems 10-point ROS is otherwise unremarkable Physical Examination - Physical Exam General: Alert, In no apparent distress HEENT: Atraumatic, PERRLA, Mucous membr. moist/pink, EOMI, Sclerae nonicteric Neck: Supple, 2+ carotid pulse no bruit, No LAD, Without JVD or thyroid abnormality Respiratory: Clear to auscultation bilaterally, Normal air movement Cardiovascular: Regular rate/rhythm, Normal S1 S2 Gastrointestinal: Normal bowel sounds, No tenderness Musculoskeletal: No tenderness Integumentary: No rashes Neurological: Normal gait, Normal speech, Normal strength at 5/5 x4 extr, Normal tone, Normal affect Lymphatics: No axilla or inguinal lymphadenopathy - Studies Microbiology Data (last 24 hrs): 09/08/18 14:47 Stool Occult Blood - Final Assessment and Plan - Problems (Diagnosis) (1) Syncope Current Visit: Yes Status: Acute Plan: Patient with syncopal episode this morning most likely secondary to hypovolemia -CTA trauma Gram negative for any acute abnormalities -carotid Doppler and echocardiogram ordered at this time -will start with IV fluids -PTOT consulted here in the hospital Qualifiers: Syncope type: unspecified Qualified Code(s): R55 - Syncope and collapse (2) MIGUEL (acute kidney injury) Current Visit: Yes Status: Acute Plan: MIGUEL I was likely secondary to hypovolemia secondary to iron deficiency anemia -BUN creatinine elevated today from baseline -IV fluids at this time -will consult Nephrology (3) Anemia Current Visit: Yes Status: Chronic Plan: Patient with chronic iron-deficiency anemia -hemoglobin is 9.9 which is his baseline according to a GI specialist -will get iron studies done here in the hospital -will transfuse if necessary Qualifiers: Anemia type: iron deficiency Iron deficiency anemia type: chronic blood loss Qualified Code(s): D50.0 - Iron deficiency anemia secondary to blood loss (chronic) - Plan Patient will be admitted to medical-surgical floor for acute kidney injury along with syncopal episode. Will rule out any acute abnormality and treat the acute kidney injury Discharge Plan: Home Plan to discharge in: Greater than 2 days - Advance Directives Does patient have a Living Will: No Does patient have a Durable POA for Healthcare: Yes - Code Status/Comfort Care Code Status Assessed: Yes Critical Care: No
--- NOTE | 2018-09-08 16:54 | RAD REPORT ---
EXAM DESCRIPTION: USCarotid Artery Bilateral09/08/2018 4:29 pm CLINICAL HISTORY: Syncope COMPARISON: None FINDINGS: The velocity of the right internal carotid artery equals 102 cm/sec. The right ICA/CCA rat io 0.9 The velocity of the left internal carotid artery equals 94 cm/sec. The left ICA/CCA ratio 0.8 Plaque is not seen within the carotid arteries. The vertebral arteries demonstrate antegrade flow IMPRESSION: Unremarkable exam NASCET criteria used. Mild 0-49% stenosis Moderate 50-69% stenosis Severe 70-99% stenosis
[2018-09-08] MEDS ORDERED: ACETAMINOPHEN 500 MG TAB ONE (17:01)
[2018-09-08 17:39] VITALS: O2SAT 100
[2018-09-08 18:07] VITALS: BMI 33.1
[2018-09-08] MEDS: PANTOPRAZOLE 40 MG INJ IVP SCH ×2 (18:20→21:00)
[2018-09-08] MEDS ORDERED: GLUCAGON 1 MG/VIAL IM PRN (18:21)
[2018-09-08] MEDS ORDERED: D50W 25 GM/50 ML SYRINGE IV PRN (18:21)
--- NOTE | 2018-09-08 19:15 | RAD REPORT ---
EXAM DESCRIPTION: US - Renal Ultrasound-Complete - 09/08/2018 7:01 pm CLINICAL HISTORY: . Abdominal pain COMPARISON: May 2017 FINDINGS: The right kidney measures 11 cm with a normal echotexture. The left kidney measures 11 cm with a normal echotexture. Hydronephrosis is not seen. No gross abnormality of the bladder noted IMPRESSION: Unremarkable renal ultrasound.
[2018-09-08] MEDS: HYDROCODONE/APAP 7.5/325 MG TAB PO SCH (20:14)
[2018-09-08] MEDS: INSULIN -REGULAR HUMAN 50 UNIT/0.5 ML ML SQ SCH (21:00)
[2018-09-08] MEDS ORDERED: PNEUMOCOCCAL VACCINE 0.5 ML IMVAC ONE (21:00)
[2018-09-08] MEDS: CIPROFLOXACIN HCL 500 MG TAB PO SCH (21:24)
[2018-09-08] MEDS: TIZANIDINE 4 MG TABLET PO SCH (21:24)
[2018-09-08] MEDS: GABAPENTIN 400 MG CAP PO SCH (21:24)
[2018-09-09] MEDS: NA CHLORIDE 0.9% 1,000 ML IV SCH (00:16)
[2018-09-09] MEDS ORDERED: NA CHLORIDE 0.9% 500 ML IV ONE ×2 (00:39→09:28)
[2018-09-09] MEDS ORDERED: FENTANYL CITR 100 MCG/2 ML IV ONE ×2 (00:39→04:55)
[2018-09-09 00:41] LABS: Urine Appearance CLEAR; Urine Bilirubin NEGATIVE (NEG); Urine Blood NEGATIVE (NEG); Urine Color YELLOW; Urine Glucose 1+ (NEG); Urine Protein NEGATIVE (NEG); Urine Specific Gravity 1.015 (1.005-1.030); Urine Urobilinogen 0.2 mg/dL (0.2-1.0); Urine pH 5.5 (5.0-7.0)
[2018-09-09 00:45] LABS: Urine Microscopic Reflex NO UMIC
[2018-09-09 06:32] LABS: Basophils % 0.1 % (0-1.3); Hematocrit 31.9 % (39.6-49.0); Lymphocytes % 24.4 % (15.3-44.8); MPV 9.2 fL (7.6-11.3); RBC Red Blood Cell Count 3.38 M/uL (4.33-5.43)
[2018-09-09 07:01] LABS: Albumin 3.4 g/dL (3.4-5.0); Bilirubin Total 0.4 mg/dL (0.2-1.0); Potassium 3.8 mmol/L (3.5-5.1); Protein, Total 6.6 g/dL (6.4-8.2)
[2018-09-09] MEDS: INSULIN -REGULAR HUMAN 50 UNIT/0.5 ML ML SQ SCH ×2 (07:30→11:30)
[2018-09-09] MEDS: PANTOPRAZOLE 40 MG INJ IVP SCH (08:11)
[2018-09-09] MEDS: TIZANIDINE 4 MG TABLET PO SCH (08:13)
[2018-09-09] MEDS: CIPROFLOXACIN HCL 500 MG TAB PO SCH (08:13)
[2018-09-09] MEDS: GABAPENTIN 400 MG CAP PO SCH (08:13)
[2018-09-09] MEDS: HYDROCODONE/APAP 7.5/325 MG TAB PO SCH (09:00)
--- NOTE | 2018-09-09 12:33 | ECHO ---
HEIGHT: 6 ft 2 in WEIGHT: 258 lb 0 oz DATE OF STUDY: 09/08/[address]: Destiney Trevino MD 2-DIMENSIONAL: YES M.MODE: YES DOPPLER: YES COLOR FLOW: YES TDS: NO PORTABLE: NO DEFINITY: NO BUBBLE STUDY: NO DIAGNOSIS: SYNCOPE CARDIAC HISTORY: CATHERIZATION: NO SURGERY: NO PROSTHETIC VALVE: NO PACEMAKER: NO MEASUREMENTS (cm) DIASTOLIC (NORMALS) SYSTOLIC (NORMALS) IVSd 1.2 (0.6-1.2) LA Diam 3.8 (1.9-4.0) LVEF 66% LVIDd 5.6 (3.5-5.7) LVIDs 3.5 (2.0-3.5) %FS 37% LVPWd 1.5 (0.6-1.2) Ao Diam 3.2 (2.0-3.7) 2 DIMENSIONAL ASSESSMENT: RIGHT ATRIUM: NORMAL LEFT ATRIUM: NORMAL RIGHT VENTRICLE: NORMAL LEFT VENTRICLE: LEFT VENTRICULAR HYPERTROPHY TRICUSPID VALVE: NORMAL MITRAL VALVE: NORMAL PULMONIC VALVE: NORMAL AORTIC VALVE: NORMAL PERICARDIAL EFFUSION: NONE AORTIC ROOT: NORMAL LEFT VENTRICULAR WALL MOTION: NORMAL. DOPPLER/COLOR FLOW: NORMAL. COMMENTS: MILD LEFT VENTRICULAR HYPERTROPHY. NO WALL MOTION ABNORMALITY. NO EFFUSION. NO WALL MOTION ABNORMALITY. TECHNOLOGIST: NINI NULL
--- NOTE | 2018-09-09 13:18 | P.CNS ---
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 , EGD with gastric ulcer , strted on PPI pt didnt improved pt noticed that his bp was on the low side, increased his fluid intake and stopped lisniopril had syncope the day before admission with head trauma in ER Cr 3.0 pt denied chest pain, palpitation, or diarrhea Allergies No Known Allergies Allergy (Verified 06/09/17 14:09) Home Medications: Gabapentin [Neurontin*] 800 mg PO QID 01/06/16 Tizanidine HCl 6 mg PO QID 01/06/16 Lisinopril [Prinivil*] 20 mg PO [id number] 06/09/17 Metformin HCl [Glucophage*] 1,000 mg PO BIDWM 06/09/17 Ciprofloxacin HCl 500 mg PO BID 09/08/18 Hydrocodone/Acetaminophen [Hydrocodone-Acetamin 7.5-325] 1 tab PO QID 09/08/18 Pantoprazole Sodium [Protonix] 40 mg PO DAILY 09/08/18 Sucralfate [Carafate*] 1 gm PO ACHS 09/08/18 - Past Medical/Surgical History Diabetic: No -: Chronic back pain -: DM II age 22 -: R knee surgery -: Gastric bypass -: Phimosis skin graft -: Circumcision -: Jackie -: rt knee surg - Family History Mother Medical History: Heart disease, Diabetes Notes: of cirrrosis of liver Father Medical History: Diabetes Brother Medical History: Hypertension, Diabetes Notes: at 39yr old from "natural causes" - Social History Alcohol use: No CD- Drugs: No Caffeine use: Yes Place of Residence: Home Physical Examination Temp Pulse Resp BP Pulse Ox 97.4 F 50 16 91/44 L 98 09/09/18 08:00 09/09/18 08:00 09/09/18 08:00 09/09/18 08:00 09/09/18 08:00 General: Oriented x3, Obese HEENT: Atraumatic Neck: Supple, Without JVD or thyroid abnormality Respiratory: Clear to auscultation bilaterally, Normal air movement Cardiovascular: No edema, Normal S1 S2, No gallops, No rubs, No murmurs Gastrointestinal: Normal bowel sounds, Soft and benign, No ascites, No tenderness Integumentary: No rashes - Problems (1) MIGUEL (acute kidney injury) Current Visit: Yes Status: Acute (2) Syncope Current Visit: Yes Status: Acute Qualifiers: Syncope type: unspecified Qualified Code(s): R55 - Syncope and collapse Conclusions/Impression: MIGUEL due to prerenal azotemia Cont IVF US no hydro UA +1 prot , no bld Anemia with Hx of gastric ulcer low Iron sat will send for b12 and folate as pt have Hx of gatric bypass Syncope likely due to dehydration Cont IVF for now HTN bp on the low side Cont IVF DM SSI off metformin
[2018-09-09 13:37] VITALS: BP 112/55; TEMP 96.9
--- NOTE | 2018-09-09 17:24 | P.DS ---
Admission Date: 09/08/18 Discharge Date: 09/09/18 Primary Care Provider: Dr Deleon Disposition: ROUTINE DISCHARGE Discharge Condition: GOOD Reason for Admission: Syncope Consultations: Nephrology - Problems (1) Syncope Status: Acute Qualifiers: Syncope type: unspecified Qualified Code(s): R55 - Syncope and collapse (2) MIGUEL (acute kidney injury) Status: Acute (3) Anemia Status: Chronic Qualifiers: Anemia type: iron deficiency Iron deficiency anemia type: chronic blood loss Qualified Code(s): D50.0 - Iron deficiency anemia secondary to blood loss (chronic) Brief History of Present Illness: This is a 42-year-old male with significant past medical history of gastric ulcer who presented to the ED complaining of having a syncopal episode. Patient was seen this morning in the ER after he had a syncopal episode and hit his head on the concrete. At that time trauma g was performed which was negative for any acute abnormality however consistent with chronic degenerative disease. Patient at that time was given fluids and was discharged from the ER to follow up with PCP under stable condition. However patient continued to have syncopal episode at the house and thus decided to come back to the ER. Patient stated that for past couple of weeks he has been having low blood pressure which is primary care doctor has been working on and has also been diagnosed with iron-deficiency anemia along with gastric ulcers. Patient was seen recently by GI physician in August and had an MRCP done to rule out any acute abnormality in the gallbladder area. MRCP was negative and consistent with normal post cholecystectomy MRCP. Patient denies having any fever chills nausea vomiting or any other associated symptoms at this. Hospital Course: Overall during the hospital stay patient remained stable Patient was initially admitted to the hospital for syncopal episode, fall and a KI. Patient's syncopal episode was most likely secondary to hypotension. Patient stated that this is a chronic problem for him at due to chronic blood loss anemia secondary to his gastric ulcer. Hemoglobin here in the hospital remained stable. Patient was placed on IV fluids here in the hospital for acute kidney injury. Had marked improvement in his BUN and creatinine at that time. For syncopal workup patient had carotid Dopplers and echocardiogram done here in the hospital which were without any acute abnormality. At that time cardiology was consulted who recommended outpatient follow up for further testing with stress test if needed. Patient had marked improvement in his symptoms and thus was discharged home under stable condition. Patient did have an episode of bradycardia while here in the hospital however that was immediately after patient took pain medication here in the hospital. After which patient had his heart rate return back to his normal baseline. Patient remained asymptomatic while here in the hospital as well. Patient then was discharged home under stable condition was asked to follow with cardiology and primary care provider in about 1-2 days post discharge. Vital Signs/Physical Exam: Temp Pulse Resp BP Pulse Ox 96.9 F 40 L 18 112/55 L 100 09/09/18 12:00 09/09/18 12:00 09/09/18 12:00 09/09/18 12:00 09/09/18 12:00 General: Alert, In no apparent distress HEENT: Atraumatic, PERRLA, EOMI Neck: Supple, JVD not distended Respiratory: Clear to auscultation bilaterally, Normal air movement Cardiovascular: Regular rate/rhythm, Normal S1 S2 Gastrointestinal: Normal bowel sounds, No tenderness Musculoskeletal: No tenderness Integumentary: No rashes Neurological: Normal speech, Normal tone, Normal affect Lymphatics: No axilla or inguinal lymphadenopathy Laboratory Data at Discharge: WBC 8.2 K/uL (4.3-10.9) 09/09/18 05:50 Hgb 10.8 g/dL (13.6-17.9) L 09/09/18 05:50 Hct 31.9 % (39.6-49.0) L 09/09/18 05:50 Plt Count 227 K/uL (152-406) 09/09/18 05:50 Sodium 144 mmol/L (136-145) 09/09/18 05:50 Potassium 3.8 mmol/L (3.5-5.1) 09/09/18 05:50 BUN 11 mg/dL (7-18) 09/09/18 05:50 Creatinine 1.27 mg/dL (0.55-1.3) D 09/09/18 05:50 Glucose 107 mg/dL (74-106) H 09/09/18 05:50 Total Bilirubin 0.4 mg/dL (0.2-1.0) 09/09/18 05:50 AST 13 U/L (15-37) L 09/09/18 05:50 ALT 21 U/L (12-78) 09/09/18 05:50 Alkaline Phosphatase 77 U/L (45-117) 09/09/18 05:50 Home Medications: Gabapentin [Neurontin*] 800 mg PO QID 01/06/16 Tizanidine HCl 6 mg PO QID 01/06/16 Lisinopril [Prinivil*] 20 mg PO [id number] 06/09/17 Metformin HCl [Glucophage*] 1,000 mg PO BIDWM 06/09/17 Ciprofloxacin HCl 500 mg PO BID 09/08/18 Hydrocodone/Acetaminophen [Hydrocodone-Acetamin 7.5-325] 1 tab PO QID 09/08/18 Pantoprazole Sodium [Protonix] 40 mg PO DAILY 09/08/18 Sucralfate [Carafate*] 1 gm PO ACHS 09/08/18 Diet: Regular Activity: Ad ethan Followup: Deyanira Matt MD [ACTIVE - CAN ADMIT] - 1 Week (kidney doctor- Call to schedule an appointment) Jose Antonio Rich MD [ACTIVE - CAN ADMIT] - 1 Week (gastroenterolgist- Call to schedule an appointment)
== END 2018-09-09 16:14 | disposition home or self-care (01) | DRG 684 ==
LOC: ER 14:15 → ERHOLD 14:56 → 4TH 16:34
PROVIDERS: ADMIT Family Medicine; ATTEND Family Medicine
DX: N17.9 Acute kidney failure, unspecified (principal); E86.0 Dehydration; D50.0 Iron deficiency anemia secondary to blood loss (chronic); E11.9 Type 2 diabetes mellitus without complications; I10 Essential (primary) hypertension; R00.1 Bradycardia, unspecified; Z23 Encounter for immunization; Z79.84 Long term (current) use of oral hypoglycemic drugs; Z87.11 Personal history of peptic ulcer disease; Z98.84 Bariatric surgery status
CPT/HCPCS: 36415; 76770; 80053; 81003; 82272; 82962; 83540; 84466; 85025; 90471; 90670; 93306; 93880; 96361; 96374; 96375; C9113; J2405; J3010; J7030

== ENCOUNTER 2019-04-01 21:50 | Inpatient (IN) | payer BC ==
[2019-04-01] MEDS ORDERED: NA CHLORIDE 0.9% 2,000 ML ONE (22:23)
[2019-04-01] MEDS ORDERED: PANTOPRAZOLE 40 MG INJ ONE ×2 (22:32→23:06)
[2019-04-01 22:38] LABS: Absolute Lymphocytes (CBC) 2.4 K/uL (0.7-4.9); Basophils % 0.6 % (0-1.3); Hematocrit 26.1 % (39.6-49.0); Lymphocytes % 20.1 % (15.3-44.8); MPV 7.5 fL (7.6-11.3); RBC Red Blood Cell Count 2.69 M/uL (4.33-5.43)
[2019-04-01 22:39] LABS: Protime INR 1.11
--- NOTE | 2019-04-01 22:48 | RAD REPORT ---
EXAM DESCRIPTION: [facility] Single View04/01/2019 10:39 pm CLINICAL HISTORY: Hypertension COMPARISON: 2017 FINDINGS: The lungs appear clear of acute infiltrate. The heart is normal size IMPRESSION: No acute abnormalities displayed
[2019-04-01 22:55] LABS: ALT/SGPT 13 U/L (12-78); AST/SGOT 9 U/L (15-37); Albumin 2.7 g/dL (3.4-5.0); Alkaline Phosphatase 80 U/L (45-117); BUN Blood Urea Nitrogen 37 mg/dL (7-18); Bicarbonate 16 mmol/L (21-32); Bilirubin Direct < 0.1 mg/dL (0-0.2); Glucose Level 140 mg/dL (74-106); Magnesium 1.8 mg/dL (1.8-2.4); NT PRO-BNP 179 pg/mL (<125); Protein, Total 6.7 g/dL (6.4-8.2); Sodium Level 140 mmol/L (136-145); Troponin (Emerg Dept Use Only) < 0.02 ng/mL (0.0-0.045)
[2019-04-01 23:05] LABS: Bilirubin Total < 0.1 mg/dL (0.2-1.0)
[2019-04-01] MEDS ORDERED: NA CHLORIDE 0.9% 250 ML ONE (23:12)
--- NOTE | 2019-04-02 00:33 | EDPHYS ---
Physician Documentation [facility] Name: Rhett Ayers Age: 43 yrs Sex: Male : 1975 Arrival Date: 04/01/2019 Time: 21:52 Bed 2 Private MD: Juarez Deleon ED Physician Jose Carlos Salinas HPI: 04/01 22:31 This 43 yrs old Male presents to ER via Wheelchair with complaints of LOW ary BLOOD PRESSURE SYNCOPE. 22:31 The patient has experienced near-syncope. Onset: The symptoms/episode began/occurred ary just prior to arrival. Duration: This was a single episode, that lasted 20 second(s). Context: the episode(s) was witnessed, by family, . Associated injury: The patient did not suffer any apparent associated injury. Associated signs and symptoms: The patient has no apparent associated signs or symptoms. The patient has experienced similar episodes in the past, a few times. Historical: - Allergies: 22:03 No Known Allergies; aj1 - Home Meds: 22:03 Hydrocodone-Acetaminophen Oral [Active]; tizanidine oral oral [Active]; Lisinopril Oral aj1 [Active]; gabapentin oral oral [Active]; "diabetes medicine" [Active]; - PMHx: 22:03 Diabetes - NIDDM; Hypertension; Orthostatic hypotension; PUD; aj1 - Immunization history:: Flu vaccine is up to date. - Coronavirus screen:: The patient has NOT traveled to [place] in the past 14 days. - Social history:: Smoking status: Patient/guardian denies using tobacco. - Family history:: not pertinent. - Ebola Screening: : Patient denies travel to an Ebola-affected area in the 21 days before illness onset. ROS: 22:31 Constitutional: Negative for fever, chills, and weight loss, Eyes: Negative for injury, ary pain, redness, and discharge, ENT: Negative for injury, pain, and discharge, Neck: Negative for injury, pain, and swelling, Cardiovascular: Negative for chest pain, palpitations, and edema, Respiratory: Negative for shortness of breath, cough, wheezing, and pleuritic chest pain, Abdomen/GI: Negative for abdominal pain, nausea, vomiting, diarrhea, and constipation, Back: Negative for injury and pain, : Negative for injury, bleeding, discharge, and swelling, MS/Extremity: Negative for injury and deformity, Psych: Negative for depression, anxiety, suicide ideation, homicidal ideation, and hallucinations, Allergy/Immunology: Negative for hives, rash, and allergies, Endocrine: Negative for neck swelling, polydipsia, polyuria, polyphagia, and marked weight changes, Hematologic/Lymphatic: Negative for swollen nodes, abnormal bleeding, and unusual bruising. 22:31 Skin: Positive for pallor. 22:31 Neuro: Positive for near syncope, weakness. Exam: 22:31 Constitutional: This is a well developed, well nourished patient who is awake, alert, ary and in no acute distress. Head/Face: Normocephalic, atraumatic. ENT: Nares patent. No nasal discharge, no septal abnormalities noted. Tympanic membranes are normal and external auditory canals are clear. Oropharynx with no redness, swelling, or masses, exudates, or evidence of obstruction, uvula midline. Mucous membranes moist. Neck: Trachea midline, no thyromegaly or masses palpated, and no cervical lymphadenopathy. Supple, full range of motion without nuchal rigidity, or vertebral point tenderness. No Meningismus. Chest/axilla: Normal chest wall appearance and motion. Nontender with no deformity. No lesions are appreciated. Cardiovascular: Regular rate and rhythm with a normal S1 and S2. No gallops, murmurs, or rubs. Normal PMI, no JVD. No pulse deficits. Respiratory: Lungs have equal breath sounds bilaterally, clear to auscultation and percussion. No rales, rhonchi or wheezes noted. No increased work of breathing, no retractions or nasal flaring. Abdomen/GI: Soft, non-tender, with normal bowel sounds. No distension or tympany. No guarding or rebound. No evidence of tenderness throughout. Back: No spinal tenderness. No costovertebral tenderness. Full range of motion. Male : Normal genitalia with no discharge or lesions. MS/ Extremity: Pulses equal, no cyanosis. Neurovascular intact. Full, normal range of motion. Neuro: Awake and alert, GCS 15, oriented to person, place, time, and situation. Cranial nerves II-XII grossly intact. Motor strength 5/5 in all extremities. Sensory grossly intact. Cerebellar exam normal. Normal gait. Psych: Awake, alert, with orientation to person, place and time. Behavior, mood, and affect are within normal limits. 22:31 Eyes: Conjunctiva: pale. 22:31 Abdomen/GI: Rectal exam: is unremarkable, Prostate: normal, rectal tone normal, Stool: guaiac negative, hemorrhoid(s), are not appreciated, mass, is not appreciated, swelling, is not appreciated, Liver: no appreciated palpable abnormalities, Hernia: not appreciated. 22:31 Skin: Appearance: Color: pale. Vital Signs: 21:58 BP 77 / 46; Pulse 51; Resp 18; Temp 97.0; Pulse Ox 100% on R/A; aj1 22:03 Pain 8/10; aj1 22:43 BP 81 / 46; Pulse 43; Resp 14 S; Pulse Ox 100% on R/A; jd3 23:30 BP 86 / 55; Pulse 55; Resp 17 S; Pulse Ox 100% on R/A; Pain 0/10; jd3 04/02 00:01 BP 93 / 53; Pulse 43; Resp 17 S; Pulse Ox 100% on R/A; jd3 01:55 BP 99 / 61; Pulse 47; Resp 16 S; Temp 97.1(A); Pulse Ox 100% on R/A; jd3 03:00 BP 105 / 58; Pulse 77; Resp 20 S; Pulse Ox 99% on R/A; jd3 MDM: 04/01 22:15 Patient medically screened. [facility] 22:35 Data reviewed: vital signs, nurses notes, lab test result(s), EKG, radiologic studies, [facility] plain films. 04/01 22:11 Order name: Basic Metabolic Panel [facility] 04/01 22:11 Order name: CBC with Diff [facility] 04/01 22:11 Order name: LFT's [facility] 04/01 22:11 Order name: Magnesium [facility] 04/01 22:11 Order name: NT PRO-BNP [facility] 04/01 22:11 Order name: PT-INR [facility] 04/01 22:11 Order name: Troponin (emerg Dept Use Only) [facility] 04/01 22:11 Order name: Blood Culture Adult (2) [facility] 04/01 22:16 Order name: Type And Screen [facility] 04/01 22:16 Order name: Lipase [facility] 04/01 22:16 Order name: Urine Culture [facility] 04/01 22:57 Order name: Protime (+INR); Complete Time: 23:03 EDSC 04/01 22:57 Order name: CBC with Automated Diff; Complete Time: 23:03 EDMS 04/01 23:08 Order name: Basic Metabolic Panel; Complete Time: 23:16 EDMS 04/01 22:11 Order name: XRAY Chest (1 view) [facility] 04/01 22:52 Order name: RAD; Complete Time: 23:03 EDMS 04/01 23:08 Order name: Liver (Hepatic) Function; Complete Time: 23:16 EDMS 04/01 23:08 Order name: Troponin (Emerg Dept Use Only); Complete Time: 23:16 EDMS 04/01 23:08 Order name: NT PRO-BNP; Complete Time: 23:16 EDMS 04/01 23:08 Order name: Magnesium; Complete Time: 23:16 EDMS 04/01 23:27 Order name: Lipase; Complete Time: 00:22 [facility] 04/01 23:45 Order name: Type and Screen EDSC 04/02 00:22 Order name: Urine Dipstick--Ancillary (enter results) sp 04/02 00:44 Order name: Urine Dipstick-Ancillary [facility] 04/01 22:11 Order name: EKG; Complete Time: 22:12 [facility] 04/01 22:11 Order name: Cardiac monitoring; Complete Time: 22:40 [facility] 04/01 22:11 Order name: EKG - Nurse/Tech; Complete Time: 22:40 [facility] 04/01 22:11 Order name: IV Saline Lock; Complete Time: 22:40 [facility] 04/01 22:11 Order name: Labs collected and sent; Complete Time: 22:40 [facility] 04/01 22:11 Order name: O2 Per Protocol; Complete Time: 22:40 [facility] 04/01 22:11 Order name: O2 Sat Monitoring; Complete Time: 22:40 [facility] 04/01 22:18 Order name: IV Saline Lock - Large Bore; Complete Time: 22:38 [facility] 04/01 22:52 Order name: EKG; Complete Time: 22:52 [facility] 04/01 22:52 Order name: EKG - Nurse/Tech; Complete Time: 23:15 [facility] Administered Medications: 22:38 Drug: NS 0.9% 1000 ml Route: IV; Rate: 125 ml/hr; Site: right antecubital; jd3 04/02 02:24 Follow up: Response: No adverse reaction; IV Status: Infusion continued upon admission jd3 04/01 22:39 Drug: NS 0.9% 1000 ml Route: IV; Rate: 1 bolus; Site: right antecubital; jd3 23:35 Follow up: Response: No adverse reaction; IV Status: Completed infusion; IV Intake: jd3 1000ml 22:39 Drug: ProTONIX 40 mg Route: IVP; Site: right antecubital; jd3 23:38 Follow up: Response: No adverse reaction jd3 23:25 Drug: ProTONIX 40 mg Route: IVP; Site: right antecubital; jd3 04/02 00:25 Follow up: Response: No adverse reaction jd3 04/01 23:25 Drug: ProTONIX 8 mg/hr Route: IV; Rate: 25 ml/hr; Site: right antecubital; jd3 04/02 02:24 Follow up: Response: No adverse reaction; IV Status: Infusion continued upon admission jd3 01:30 Drug: Tylenol 650 mg Route: PO; jd3 02:25 Follow up: Response: No adverse reaction jd3 01:30 Drug: Benadryl 12.5 mg Route: IVP; Site: right antecubital; jd3 02:25 Follow up: Response: No adverse reaction jd3 Disposition: 04/02/19 00:32 Hospitalization ordered by Yonathan Romano for Inpatient Admission. Preliminary diagnosis are Hypotension, Anemia, unspecified, Bradycardia, unspecified, Weakness, Unspecified kidney failure, Volume depletion, Syncope and collapse. - Bed requested for Intensive Care Unit. - Status is Inpatient Admission. jd3 - Condition is Fair. - Problem is new. - Symptoms have improved. Signatures: Dispatcher [employer] EDDannielle Laura RN RN aj1 Jose Carlos Salinas MD MD cha Therrien, Shelly, INSPECTOR LINE-C INSPECTOR LINE-Carey Morgan RN RN cg Davies, Jonathon, RN RN jd3 Corrections: (The following items were deleted from the chart) :24 00:32 Hospitalization Ordered by Yonathan Romano for Inpatient Admission. Preliminary cg diagnosis is Hypotension; Anemia, unspecified; Bradycardia, unspecified; Weakness; Unspecified kidney failure; Volume depletion; Syncope and collapse. Bed requested for Telemetry/MedSurg (Inpatient). Status is Inpatient Admission. Condition is Fair. Problem is new. Symptoms have improved. ary 03:07 01:24 04/02/2019 00:32 Hospitalization Ordered by Yonathan Romano for Inpatient jd3 Admission. Preliminary diagnosis is Hypotension; Anemia, unspecified; Bradycardia, unspecified; Weakness; Unspecified kidney failure; Volume depletion; Syncope and collapse. Bed requested for Intensive Care Unit. Status is Inpatient Admission. Condition is Fair. Problem is new. Symptoms have improved. cg
--- NOTE | 2019-04-02 00:33 | ER ---
Nurse's Notes [facility] Name: Rhett Ayers Age: 43 yrs Sex: Male : 1975 Arrival Date: 04/01/2019 Time: 21:52 Bed 2 Private MD: Juarez Deleon Diagnosis: Hypotension;Anemia, unspecified;Bradycardia, unspecified;Weakness;Unspecified kidney failure;Volume depletion;Syncope and collapse Presentation: 04/01 21:58 Presenting complaint: Significant other states: He was active today, during yard work, aj1 took his prescriptions for his bad back and then he woke up and said his chest was fluttering and he felt dizzy. Patient also reports fatigue. Transition of care: patient was not received from another setting of care. Onset of symptoms was April 01, 2019. Risk Assessment: Do you want to hurt yourself or someone else? Patient reports no desire to harm self or others. Initial Sepsis Screen: Does the patient meet any 2 criteria? Systolic BP < 90 mmHg. Mean Arterial Pressure (MAP) < 65. Does the patient have a suspected source of infection? No. Patient's initial sepsis screen is negative. Care prior to arrival: None. 21:58 Method Of Arrival: Wheelchair aj1 21:58 Acuity: SANTIAGO 2 aj1 Triage Assessment: 22:03 General: Appears in no apparent distress. uncomfortable, Behavior is calm, cooperative, aj1 appropriate for age. Pain: Complains of pain in diaphragm. Neuro: Level of Consciousness is awake, alert, obeys commands. Cardiovascular: Patient's skin is warm and dry. Respiratory: Airway is patent Respiratory effort is even, unlabored, Respiratory pattern is regular, symmetrical. Historical: - Allergies: 22:03 No Known Allergies; aj1 - Home Meds: 22:03 Hydrocodone-Acetaminophen Oral [Active]; tizanidine oral oral [Active]; Lisinopril Oral aj1 [Active]; gabapentin oral oral [Active]; "diabetes medicine" [Active]; - PMHx: 22:03 Diabetes - NIDDM; Hypertension; Orthostatic hypotension; PUD; aj1 - Immunization history:: Flu vaccine is up to date. - Coronavirus screen:: The patient has NOT traveled to [place] in the past 14 days. - Social history:: Smoking status: Patient/guardian denies using tobacco. - Family history:: not pertinent. - Ebola Screening: : Patient denies travel to an Ebola-affected area in the 21 days before illness onset. Screenin/23 00:02 Abuse screen: Denies threats or abuse. Nutritional screening: No deficits noted. jd3 Tuberculosis screening: No symptoms or risk factors identified. Fall Risk IV access (20 points). Ambulatory Aid- None/Bed Rest/Nurse Assist (0 pts). Gait- Weak (10 pts.). Mental Status- Oriented to own ability (0 pts). Total Gomez Fall Scale indicates Low Risk Score (25-44 pts). Fall prevention measures have been instituted. Side Rails Up X 2 Placed close to Nursing Station Frequent Obs/Assesments occuring. Assessment: 04/01 22:40 General: Appears uncomfortable, Behavior is calm, cooperative, appropriate for age. jd3 Pain: Denies pain. Neuro: Level of Consciousness is awake, alert, obeys commands, Oriented to person, place, time, situation. Cardiovascular: Reports fatigue, Denies chest pain, Heart tones present Capillary refill < 3 seconds Patient's skin is warm and dry. Rhythm is sinus bradycardia. Respiratory: Airway is patent Respiratory effort is even, unlabored, Respiratory pattern is regular, symmetrical, Breath sounds are clear bilaterally. Denies cough, shortness of breath. GI: No signs and/or symptoms were reported involving the gastrointestinal system. Patient currently denies diarrhea, nausea, vomiting. : No signs and/or symptoms were reported regarding the genitourinary system. EENT: No signs and/or symptoms were reported regarding the EENT system. Derm: Skin is intact, Skin is dry, Skin is normal, Skin temperature is warm. Musculoskeletal: Circulation, motion, and sensation intact. Range of motion: intact in all extremities. 23:40 Reassessment: Patient appears in no apparent distress at this time. No changes from jd3 previously documented assessment. Patient and/or family updated on plan of care and expected duration. Pain level reassessed. Patient is alert, oriented x 3, equal unlabored respirations, skin warm/dry/pink. 04/02 00:40 Reassessment: Patient appears in no apparent distress at this time. No changes from jd3 previously documented assessment. Patient and/or family updated on plan of care and expected duration. Pain level reassessed. Patient is alert, oriented x 3, equal unlabored respirations, skin warm/dry/pink. 01:40 Reassessment: Patient appears in no apparent distress at this time. Patient and/or jd3 family updated on plan of care and expected duration. Pain level reassessed. Patient is alert, oriented x 3, equal unlabored respirations, skin warm/dry/pink. blood transfusion started. blood consent signed. 02:02 Reassessment: Patient appears in no apparent distress at this time. Patient and/or jd3 family updated on plan of care and expected duration. Pain level reassessed. Patient is alert, oriented x 3, equal unlabored respirations, skin warm/dry/pink. Patient states feeling better. 02:32 Reassessment: Patient appears in no apparent distress at this time. Patient and/or jd3 family updated on plan of care and expected duration. Pain level reassessed. Patient is alert, oriented x 3, equal unlabored respirations, skin warm/dry/pink. report given to Marcelo ZAVALETA. Vital Signs: 04/01 21:58 BP 77 / 46; Pulse 51; Resp 18; Temp 97.0; Pulse Ox 100% on R/A; aj1 22:03 Pain 8/10; aj1 22:43 BP 81 / 46; Pulse 43; Resp 14 S; Pulse Ox 100% on R/A; jd3 23:30 BP 86 / 55; Pulse 55; Resp 17 S; Pulse Ox 100% on R/A; Pain 0/10; jd3 04/02 00:01 BP 93 / 53; Pulse 43; Resp 17 S; Pulse Ox 100% on R/A; jd3 01:55 BP 99 / 61; Pulse 47; Resp 16 S; Temp 97.1(A); Pulse Ox 100% on R/A; jd3 03:00 BP 105 / 58; Pulse 77; Resp 20 S; Pulse Ox 99% on R/A; jd3 ED Course: 04/01 21:52 Patient arrived in ED. es 21:53 Juarez Deleon MD is Private Physician. es 22:01 Triage completed. aj1 22:03 Arm band placed on Patient placed in an exam room. aj1 22:15 Jose Carlos Salinas MD is Attending Physician. ary 22:18 Inserted saline lock: 18 gauge in right in left antecubital area, using aseptic jb4 technique. Blood collected. 22:35 Initial lab(s) drawn, by me, sent to lab. Inserted saline lock: 18 gauge in right EJ, jb4 using aseptic technique. 22:37 Venkatesh Ortega RN is Primary Nurse. j 04/02 00:03 Patient has correct armband on for positive identification. Placed in gown. Bed in low jd3 position. Call light in reach. Side rails up X2. Adult w/ patient. 00:20 Consent for blood and/or blood product transfusion explained by staff, explained by [facility] physician, signed by patient. 00:30 Yonathan Romano is Hospitalizing Provider. [facility] 02:32 No provider procedures requiring assistance completed. Patient admitted, IV remains in jd3 place. Administered Medications: 04/01 22:38 Drug: NS 0.9% 1000 ml Route: IV; Rate: 125 ml/hr; Site: right antecubital; jd3 04/02 02:24 Follow up: Response: No adverse reaction; IV Status: Infusion continued upon admission j 04/01 22:39 Drug: NS 0.9% 1000 ml Route: IV; Rate: 1 bolus; Site: right antecubital; jd3 23:35 Follow up: Response: No adverse reaction; IV Status: Completed infusion; IV Intake: jd3 1000ml 22:39 Drug: ProTONIX 40 mg Route: IVP; Site: right antecubital; jd3 23:38 Follow up: Response: No adverse reaction jd3 23:25 Drug: ProTONIX 40 mg Route: IVP; Site: right antecubital; jd3 04/02 00:25 Follow up: Response: No adverse reaction jd3 04/01 23:25 Drug: ProTONIX 8 mg/hr Route: IV; Rate: 25 ml/hr; Site: right antecubital; jd3 04/02 02:24 Follow up: Response: No adverse reaction; IV Status: Infusion continued upon admission jd3 01:30 Drug: Tylenol 650 mg Route: PO; jd3 02:25 Follow up: Response: No adverse reaction jd3 01:30 Drug: Benadryl 12.5 mg Route: IVP; Site: right antecubital; jd3 02:25 Follow up: Response: No adverse reaction jd3 Intake: 04/01 23:35 IV: 1000ml; Total: 1000ml. jd3 Outcome: 04/02 00:32 Decision to Hospitalize by Provider. ary 03:06 Admitted to ICU accompanied by nurse, via stretcher, room 8, on monitor, with chart, jd3 Report called to Marcelo ZAVALETA 03:06 Condition: stable 03:06 Instructed on the need for admit, Demonstrated understanding of instructions. 03:07 Patient left the ED. jd3 Signatures: Dannielle Coker RN RN aj1 Jose Carlos Salinas MD MD cha Salyer, Edna es Bryson, James, RN RN jb4 Venkatesh Ortega RN RN jd3 Corrections: (The following items were deleted from the chart) 04/01 22:45 22:40 Pain: Denies pain. jd3 jd3 22:45 22:40 Cardiovascular: Reports fatigue, Denies chest pain, Heart tones present Capillary jd3 refill < 3 seconds Patient's skin is warm and dry. Rhythm is sinus bradycardia jd3 23:41 22:40 Pain: Complains of pain in chest jd3 jd3 23:41 22:40 Cardiovascular: Reports chest pain, fatigue, Heart tones present Capillary refill jd3 < 3 seconds Patient's skin is warm and dry. Rhythm is sinus bradycardia jd3 04/02 03:06 03:05 BP 105 / 58; Pulse 77bpm; Resp 20bpm; Spontaneous; Pulse Ox 99% RA; jd3 jd3
[2019-04-02 00:43] LABS: Urine Blood NEGATIVE (NEG); Urine Glucose NEGATIVE (NEG); Urine Protein 2+ (NEG)
--- NOTE | 2019-04-02 01:01 | P.HP ---
Certification for Inpatient Patient admitted to: Observation With expected LOS: <2 Midnights Practitioner: I am a practitioner with admitting privileges, knowledge of patient current condition, hospital course, and medical plan of care. Services: Services provided to patient in accordance with Admission requirements found in Title 42 Section 412.3 of the Code of Federal Regulations Patient History Date of Service: 04/02/19 Reason for admission: Near-syncope History of Present Illness: 43-year-old gentleman with a history of morbid obesity status post gastric bypass surgery in the form of [id number] presented to the emergency department due to an episode of dizziness and feeling of passing out. Patient mentioned the episode occurring after being out on his backyard weeding for about 2 hrs. He reports multiple episodes of diarrhea 2 days ago. He also reports frequent vomiting with meals. He has a history of chronic anemia and takes iron supplementation. He also has a history of chronic kidney disease and follow with Dr. Ferguson. Patient was hypotensive with systolic blood pressure in the 70s on arrival to the ED. His hemoglobin today is 8. He is also noted to be bradycardic. The patient was given 1L normal saline bolus which improved his systolic blood pressures to the 90s. He has evidence of acute renal failure. Patient is admitted for further management. Allergies No Known Allergies Allergy (Verified 04/02/19 05:57) Home Medications: Cholecalciferol (Vitamin D3) [Vitamin D3] 2,000 unit PO BID 04/02/19 Cyanocobalamin [Vitamin B-12] 1,000 mcg PO DAILY 04/02/19 Gabapentin [Neurontin] 800 mg PO Q8H 04/02/19 Lisinopril [Zestril] 20 mg PO DAILY 04/02/19 Metformin HCl 1,000 mg PO BID 04/02/19 Multivitamin [Daily Multiple Vitamin] 1 each PO DAILY 04/02/19 Pantoprazole [Protonix Tab] 40 mg PO DAILY 04/02/19 Sucralfate [Carafate -Tab] 1 gm PO QID 04/02/19 Tizanidine HCl [Zanaflex] 6 mg PO Q6H 04/02/19 - Past Medical/Surgical History Diabetic: No -: Chronic back pain -: DM II age 22 -: Gastric ulcer -: Anemia -: R knee surgery -: Gastric bypass -: Phimosis skin graft -: Circumcision -: Jackie -: rt knee surg - Family History Mother -: Heart disease, Diabetes Notes: of cirrrosis of liver Father -: Diabetes Brother -: Hypertension, Diabetes Notes: at 39yr old from "natural causes" - Social History Alcohol use: No CD- Drugs: No Caffeine use: Yes Review of Systems Other: Except as documented, all other systems reviewed and negative. Physical Examination - Physical Exam General: Alert, In no apparent distress, Oriented x3 HEENT: Normocephalic, PERRLA, Mucous membr. moist/pink, Sclerae nonicteric Neck: Supple, JVD not distended, No Thyromegaly Respiratory: Clear to auscultation bilaterally, Normal air movement Cardiovascular: No edema, Normal pulses, Normal S1 S2, Other (Bradycardia) Capillary refill: <2 Seconds Gastrointestinal: Normal bowel sounds, Soft and benign, Non-distended, No tenderness Musculoskeletal: No swelling, No erythema Integumentary: No rashes Neurological: Normal speech, Normal strength at 5/5 x4 extr, Cranial nerves 3- 12 intact - Studies Laboratory Data (last 24 hrs) 04/01/19 22:18: Lipase 248 04/01/19 22:18: PT 13.1 H, INR 1.11 04/01/19 22:18: WBC 11.9 H, Hgb 8.4 L, Hct 26.1 L, Plt Count 427 H 04/01/19 22:18: Sodium 140, Potassium 5.0, BUN 37 H, Creatinine 2.15 H, Glucose 140 H, Magnesium 1.8, Total Bilirubin < 0.1 L, AST 9 L, ALT 13, Alkaline Phosphatase 80 Assessment and Plan - Problems (Diagnosis) (1) Near syncope Current Visit: Yes Status: Acute (2) Symptomatic anemia Current Visit: Yes Status: Acute (3) Bradycardia Current Visit: Yes Status: Acute (4) Hypovolemic shock Current Visit: Yes Status: Acute (5) DM type 2 (diabetes mellitus, type 2) Current Visit: Yes Status: Acute (6) Acute worsening of stage 3 chronic kidney disease Current Visit: Yes Status: Acute - Plan Admit to ICU for close monitoring Aggressively hydrate with IV normal saline. Transfuse 2 units PRBC Start IV Protonix Monitor H&H q.6 hrs Obtain echocardiogram Cardiology consult Monitor renal function Hold metformin Manage blood sugar with insulin sliding scale. - Advance Directives Does patient have a Living Will: No Does patient have a Durable POA for Healthcare: Yes
[2019-04-02] MEDS ORDERED: NA CHLORIDE 0.9% 250 ML ONE ×2 (01:30→04:10)
[2019-04-02] MEDS ORDERED: DIPHENHYDRAMINE 50 MG/ML VIAL ONE (01:30)
[2019-04-02] MEDS ORDERED: ACETAMINOPHEN 325 MG TABLET ONE (01:30)
[2019-04-02] MEDS ORDERED: SODIUM CHLORIDE 0.9% 10ML INJ IV PRN (02:33)
[2019-04-02] MEDS ORDERED: ONDANSETRON 4 MG/2 ML VIAL IV PRN (02:33)
[2019-04-02] MEDS: HYDROCODONE/APAP 7.5/325 MG TAB PO PRN ×3 (04:15→20:04)
[2019-04-02] MEDS: NA CHLORIDE 0.9% 1,000 ML IV SCH ×4 (04:17→21:11)
[2019-04-02 05:33] VITALS: BMI 29.6
[2019-04-02] MEDS ORDERED: INSULIN -REGULAR HUMAN 50 UNIT/0.5 ML ML SQ SCH (06:00)
--- NOTE | 2019-04-02 07:45 | EKG ---
Test Date: 2019-04-01 Test Time: 22:18:31 Commercial Review Appraiser: SATISH MEASUREMENT RESULTS: Intervals: Rate: 46 NV: 152 QRSD: 96 QT: 416 QTc: 364 [place]: P: 23 NV: 152 QRS: 54 T: 55 INTERPRETIVE STATEMENTS: Marked sinus bradycardia Abnormal ECG Compared to ECG 09/08/2018 08:36:44 No significant changes Electronically Signed On 04-02-19 07:44:36 ACID CONDENSER by Gigi Bedolla
--- NOTE | 2019-04-02 07:45 | EKG ---
Test Date: 2019-04-01 Test Time: 23:14:22 Slater Apprentice: SATISH MEASUREMENT RESULTS: Intervals: Rate: 42 TN: 160 QRSD: 96 QT: 446 QTc: 372 [place]: P: 17 TN: 160 QRS: 54 T: 46 INTERPRETIVE STATEMENTS: Marked sinus bradycardia Early repolarization Abnormal ECG Compared to ECG 04/01/2019 22:18:31 Early repolarization now present Electronically Signed On 04-02-19 07:44:34 TECHNICAL IMPLEMENTATION LEAD by Gigi Bedolla
[2019-04-02] MEDS: PANTOPRAZOLE 40 MG INJ IVP SCH ×2 (08:31→20:04)
[2019-04-02] MEDS ORDERED: GABAPENTIN 300 MG CAP PO PRN (08:41)
[2019-04-02 08:57] LABS: Absolute Lymphocytes (CBC) 1.5 K/uL (0.7-4.9); Basophils % 0.3 % (0-1.3); Hematocrit 29.5 % (39.6-49.0); Lymphocytes % 12.4 % (15.3-44.8); MPV 7.2 fL (7.6-11.3); RBC Red Blood Cell Count 3.17 M/uL (4.33-5.43)
[2019-04-02] MEDS ORDERED: D5 0.9 NS 1,000 ML IV SCH (09:00)
[2019-04-02 09:05] LABS: Potassium 4.1 mmol/L (3.5-5.1)
[2019-04-02 09:22] LABS: Thyroid Stimulating Hormone 0.718 uIU/mL (0.360-3.740)
[2019-04-02] MEDS: GABAPENTIN 400 MG CAP PO PRN ×2 (09:45→17:31)
[2019-04-02] MEDS: TIZANIDINE 4 MG TABLET PO PRN ×3 (09:46→23:39)
--- NOTE | 2019-04-02 10:19 | P.PN ---
Subjective Date of Service: 04/02/19 Chief Complaint: Near-syncope Subjective: No new changes, Improving Review of Systems 10-point ROS is otherwise unremarkable Physical Examination - Vital Signs Temperature: 97 F Blood Pressure: 158/87 Pulse: 101 Respirations: 20 Pulse Ox (%): 94 - Physical Exam General: Alert, In no apparent distress HEENT: Atraumatic, Normocephalic Neck: Supple Respiratory: Clear to auscultation bilaterally, Normal air movement Cardiovascular: No edema, Regular rate/rhythm Gastrointestinal: Soft and benign, W/out hepatosplenomegaly Musculoskeletal: No clubbing, No swelling Integumentary: No rashes Neurological: Normal speech, Normal strength at 5/5 x4 extr Lymphatics: No axilla or inguinal lymphadenopathy External genitalia: Deferred Rectal: Deferred - Studies Laboratory Data (last 24 hrs) 04/01/19 22:18: Lipase 248 04/01/19 22:18: PT 13.1 H, INR 1.11 04/01/19 22:18: WBC 11.9 H, Hgb 8.4 L, Hct 26.1 L, Plt Count 427 H 04/01/19 22:18: Sodium 140, Potassium 5.0, BUN 37 H, Creatinine 2.15 H, Glucose 140 H, Magnesium 1.8, Total Bilirubin < 0.1 L, AST 9 L, ALT 13, Alkaline Phosphatase 80 Assessment & Plan - Problems (Diagnosis) (1) Acute worsening of stage 3 chronic kidney disease Current Visit: Yes Status: Acute (2) Bradycardia Current Visit: Yes Status: Acute (3) DM type 2 (diabetes mellitus, type 2) Current Visit: Yes Status: Chronic Qualifiers: Diabetes mellitus complication status: with kidney complications Diabetes mellitus complication detail: with chronic kidney disease Chronic kidney disease stage: stage 3 (moderate) (4) Near syncope Current Visit: Yes Status: Acute (5) Symptomatic anemia Current Visit: Yes Status: Acute Plan: close monitoring under telemetry Aggressively hydrate with IV normal saline. Transfuse 2 units PRBC On IV Protonix Monitor H&H q.6 hrs Appreciate Cardiology consult Monitor renal function Hold metformin Manage blood sugar with insulin sliding scale. GI consult Continue off Protonix and sucralfate Start on clear liquid diet and advance Will get FOBT and felt Discharge Plan: Home Plan to discharge in: 48 Hours Time Spent Managing Pts Care (In Minutes): 42
[2019-04-02] MEDS ORDERED: D50W 25 GM/50 ML SYRINGE/VIAL IV PRN (10:21)
[2019-04-02] MEDS ORDERED: GLUCAGON 1 MG/VIAL IM PRN (10:21)
[2019-04-02] MEDS: INSULIN -REGULAR HUMAN 50 UNIT/0.5 ML ML SQ SCH ×3 (11:30→21:00)
--- NOTE | 2019-04-02 17:14 | CON ---
Date of Consultation: 04/02/[address] Romano on 04/02/2019. I saw the patient on 04/02/2019. Reason For Consultation: Bradycardia and syncope. History Of Present Illness: Mr. Ayers is a 43-year-old white male, has a very complex past medical hi story, but mainly has a history of diabetes, hypertension, as well as orthostatic hypotension and has a history of obesity status post surgery. At his maximum, he weighed over 500 pounds. He continued to lose weight. He has lost 100 pounds in the last year that is unexplained. He has also history o f peptic ulcer disease. Dr. Rich has cared for him in that regard. Apparently that was develope d after he was taking for chronic pain. He has pain all over the body. He had a gastric bypass surgery by Dr. Nunez in [place]. He is a patient of Dr. Deleon and Dr. Ferguson. Has suffered from renal insufficiency for quite some time. He had an episode in September of 2018, 6 months ago whe re he had syncope as well, but had a normal echocardiogram, normal carotid Doppler, normal renal ultr asound. This has not reoccurred until yesterday. 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 He came in bradycardic in the 50s, hypotensive. This has resolved after hydration. His heart rate now is in the 70s. His blood pressure is about 130 and he is asymptomatic from that standpoint. He denied chest pain, denied nausea or vomiting or diaphoresis. Denied PND, orthopnea, pedal edema, or palpitations. Allergies: NONE. Review of Systems: Positive for aches and pains throughout his body as well as weight loss and lack of energy. Medications: At home include metformin, lisinopril, Neurontin, Protonix. Physical Examination: General: His blood pressure was 158/87. His pulse was 100. HEENT: Negative. Neck: Supple with no bruit. Chest: Clear. Cardiac: Revealed a regular rhythm and rate. No murmurs, gallops, or rubs. Abdomen: Benign. Extremities: Revealed no clubbing, cyanosis, or edema. Diagnostic Data: His creatinine was 2.15, glucose of 140. His BNP was negative. Troponin was negat ross. His hemoglobin was 8.4. TSH was pending. Impression And Plan: Syncope secondary to orthostatic hypotension and/or dehydration. I suggest hyd ration. I would not repeat too much cardiac workup. He just had a negative echo carotid and renal r ecently. I would consider the use of midodrine on hand maybe 5 mg 3 times a day and as needed for lo w blood pressure. [place] may be getting an event monitor on him as an outpatient. Recheck hemoglobin . Consider reconsulting Renal and GI. We will see what his PSA shows. He is already status post bl ood transfusions. He can certainly move out of the ICU whenever it is okay with Dr. Romano. NB/MODL Voice ID: [id number] Report ID: [id number]
[2019-04-03] MEDS: HYDROCODONE/APAP 7.5/325 MG TAB PO PRN ×4 (03:13→23:06)
[2019-04-03 04:17] LABS: Absolute Lymphocytes (CBC) 1.7 K/uL (0.7-4.9); Basophils % 0.4 % (0-1.3); Hematocrit 27.5 % (39.6-49.0); Lymphocytes % 18.2 % (15.3-44.8); MPV 7.4 fL (7.6-11.3); RBC Red Blood Cell Count 3.01 M/uL (4.33-5.43)
[2019-04-03 05:20] LABS: BUN Blood Urea Nitrogen 11 mg/dL (7-18); Bicarbonate 18 mmol/L (21-32); Glucose Level 112 mg/dL (74-106); Phosphorus 2.3 mg/dL (2.5-4.9); Potassium 4.1 mmol/L (3.5-5.1); Sodium Level 142 mmol/L (136-145)
[2019-04-03 05:24] LABS: Magnesium 1.4 mg/dL (1.8-2.4)
[2019-04-03] MEDS ORDERED: Magnesium Sulfate 2gm IVPB 2 G/50 ML BAG IV ONE (05:33)
[2019-04-03] MEDS: GABAPENTIN 400 MG CAP PO PRN ×3 (06:06→21:08)
[2019-04-03] MEDS: INSULIN -REGULAR HUMAN 50 UNIT/0.5 ML ML SQ SCH ×4 (07:30→21:00)
[2019-04-03] MEDS: PANTOPRAZOLE 40 MG INJ IVP SCH ×2 (08:01→21:09)
[2019-04-03] MEDS: POTASS/SODIUM PHOSPHATE 1 PKT POWD.PACK PO SCH ×3 (08:02→11:18)
[2019-04-03] MEDS: TIZANIDINE 4 MG TABLET PO PRN ×3 (08:02→21:08)
--- NOTE | 2019-04-03 11:52 | P.PN ---
Subjective Date of Service: 04/03/19 Chief Complaint: Near-syncope Patient states he feels a lot better today. His blood pressure has improved and he is actually hypertensive today. He will occasionally have bradycardia down to 30. He denies any melena or hematochezia. He has tolerated liquid diet. Noted a drop in his hemoglobin today. Physical Examination - Vital Signs Temperature: 97.7 F Blood Pressure: 176/82 Pulse: 61 Respirations: 19 Pulse Ox (%): 95 - Physical Exam General: Alert, In no apparent distress, Oriented x3 HEENT: PERRLA, Mucous membr. moist/pink, Sclerae nonicteric Neck: Supple, JVD not distended Respiratory: Clear to auscultation bilaterally, Normal air movement Cardiovascular: No edema, Regular rate/rhythm, Normal S1 S2 Capillary refill: <2 Seconds Gastrointestinal: Normal bowel sounds, Soft and benign, Non-distended, No tenderness Musculoskeletal: No swelling, No erythema Integumentary: No rashes Neurological: Normal speech, Normal strength at 5/5 x4 extr Assessment And Plan - Current Problems (Diagnosis) (1) Near syncope Current Visit: Yes Status: Acute (2) Symptomatic anemia Current Visit: Yes Status: Acute (3) Bradycardia Current Visit: Yes Status: Acute (4) Hypovolemic shock Current Visit: Yes Status: Resolved (5) DM type 2 (diabetes mellitus, type 2) Current Visit: Yes Status: Chronic Qualifiers: Diabetes mellitus complication status: with kidney complications Diabetes mellitus complication detail: with chronic kidney disease Chronic kidney disease stage: stage 3 (moderate) (6) Acute worsening of stage 3 chronic kidney disease Current Visit: Yes Status: Acute - Plan Discontinue IV fluid Status post Transfuse 2 units PRBC Change Protonix to oral Monitor Echocardiogram is pending Cardiology input appreciated. Patient may need an event monitor. He will follow with Cardiology as outpatient for arrangement for event monitor. GI consult placed. I contacted Dr. Galvan who will see amd evaluate him tomorrow. Hold metformin Manage blood sugar with insulin sliding scale.
[2019-04-03] MEDS ORDERED: MAGNESIUM SULFATE 1 gm IVPB 1 GM/100 ML BAG IV ONE (14:38)
[2019-04-04] MEDS: TIZANIDINE 4 MG TABLET PO PRN ×2 (03:07→10:00)
[2019-04-04] MEDS: HYDROCODONE/APAP 7.5/325 MG TAB PO PRN ×2 (05:50→13:48)
[2019-04-04 06:18] LABS: Absolute Lymphocytes (CBC) 2.3 K/uL (0.7-4.9); Basophils % 0.4 % (0-1.3); Hematocrit 27.9 % (39.6-49.0); Lymphocytes % 29.1 % (15.3-44.8); MPV 7.6 fL (7.6-11.3); RBC Red Blood Cell Count 3.02 M/uL (4.33-5.43)
[2019-04-04 06:37] LABS: BUN Blood Urea Nitrogen 7 mg/dL (7-18); Bicarbonate 22 mmol/L (21-32); Glucose Level 108 mg/dL (74-106); Magnesium 1.8 mg/dL (1.8-2.4); Phosphorus 2.4 mg/dL (2.5-4.9); Potassium 4.2 mmol/L (3.5-5.1); Sodium Level 141 mmol/L (136-145)
[2019-04-04] MEDS: POTASS/SODIUM PHOSPHATE 1 PKT POWD.PACK PO SCH ×3 (07:00→09:00)
[2019-04-04] MEDS ORDERED: MAGNESIUM SULFATE 1 gm IVPB 1 GM/100 ML BAG IV ONE (07:00)
[2019-04-04] MEDS: INSULIN -REGULAR HUMAN 50 UNIT/0.5 ML ML SQ SCH ×3 (07:30→16:23)
--- NOTE | 2019-04-04 09:17 | RAD REPORT ---
EXAM DESCRIPTION: RAD - Small Bowel Series - 04/04/2019 9:11 am CLINICAL HISTORY: Anemia Abdominal pain COMPARISON: Renal Ultrasound-Complete dated 09/08/2018 FINDINGS: Premix Concrete Batcher film shows a nonspecific bowel gas pattern. No obstruction or free air. No suspiciou s calcifications. Cholecystectomy clips. Gastric size and mucosal fold pattern are normal. No delay in transit of contrast into the small janelle l. Small bowel is normal in diameter with no mucosal fold thickening. No intrinsic or extrinsic mass identifiable. Terminal ileum has normal appearance. Transit time to the colon is normal. No fluoroscopy was performed. Total images acquired: 11 IMPRESSION: Normal small bowel series.
[2019-04-04] MEDS: PANTOPRAZOLE 40 MG INJ IVP SCH (09:50)
[2019-04-04 09:57] VITALS: O2SAT 100
[2019-04-04 13:08] VITALS: BP 157/81; TEMP 99.7
--- NOTE | 2019-04-04 13:22 | P.DS ---
Admission Date: 04/02/19 Discharge Date: 04/04/19 Disposition: ROUTINE DISCHARGE Discharge Condition: FAIR Reason for Admission: Near-syncope Consultations: GI-Dr. Rich Cardiology-Dr. Bedolla - Problems (1) Near syncope Current Visit: Yes Status: Acute (2) Symptomatic anemia Current Visit: Yes Status: Acute (3) Bradycardia Current Visit: Yes Status: Acute (4) Hypovolemic shock Current Visit: Yes Status: Resolved (5) DM type 2 (diabetes mellitus, type 2) Current Visit: Yes Status: Chronic Qualifiers: Diabetes mellitus complication status: with kidney complications Diabetes mellitus complication detail: with chronic kidney disease Chronic kidney disease stage: stage 3 (moderate) (6) Acute worsening of stage 3 chronic kidney disease Current Visit: Yes Status: Acute Brief History of Present Illness: 43-year-old gentleman with a history of morbid obesity status post gastric bypass surgery in the form of [id number] presented to the emergency department due to an episode of dizziness and feeling of passing out. Patient mentioned the episode occurring after being out on his backyard weeding for about 2 hrs. He reports multiple episodes of diarrhea 2 days prior. He also reports frequent vomiting with meals. He has a history of chronic anemia and takes iron supplementation. He also has a history of chronic kidney disease and follow with Dr. Ferguson. Patient was hypotensive with systolic blood pressure in the 70s on arrival to the ED. His hemoglobin was 8. He is also noted to be bradycardic. The patient was given 1L normal saline bolus which improved his systolic blood pressures to the 90s. He had evidence of acute renal failure. Patient was admitted for further management. Hospital Course: Patient was initially admitted to ICU and resuscitated with IV fluids. He was also given 2 units PRBC transfusion which brought his hemoglobin up to 10. Patient had episodes of bradycardia. She was seen and evaluated by Dr. Bedolla. Echocardiogram was performed which was normal. Dr. Bedolla recommended outpatient event monitor given 2 episodes of syncope. Noted patient 's blood pressure was also low on presentation. He takes lisinopril for hypertension and has had multiple episodes of diarrhea and vomiting prior to his symptoms. His dizziness could be related to symptomatic anemia along with hypovolemic shock. He was seen and evaluated by Dr. Rich, small-bowel series was performed which was normal. Dr. Rich recommended CT entereoscopy to further look for bleeding source in the small bowel, which can be done as an outpatient, and also to follow with his bariatric surgeon for a possible reversal of his gastric bypass. His lisinopril was held during the hospital stay and discontinued on discharge. Vital Signs/Physical Exam: Temp Pulse Resp BP Pulse Ox 99.7 F 83 16 157/81 H 97 04/04/19 12:00 04/04/19 12:00 04/04/19 12:00 04/04/19 12:00 04/04/19 12:00 General: Alert, In no apparent distress, Oriented x3 HEENT: Mucous membr. moist/pink, Sclerae nonicteric Neck: Supple, JVD not distended Respiratory: Clear to auscultation bilaterally, Normal air movement Cardiovascular: No edema, Regular rate/rhythm, Normal S1 S2 Gastrointestinal: Normal bowel sounds, Soft and benign, Non-distended, No tenderness Musculoskeletal: No swelling, No erythema Integumentary: No rashes Neurological: Normal speech, Normal strength at 5/5 x4 extr, Cranial nerves 3- 12 intact Laboratory Data at Discharge: WBC 8.1 K/uL (4.3-10.9) 04/04/19 05:09 Hgb 9.1 g/dL (13.6-17.9) L 04/04/19 05:09 Hct 27.9 % (39.6-49.0) L 04/04/19 05:09 Plt Count 371 K/uL (152-406) 04/04/19 05:09 PT 13.1 SECONDS (9.5-12.5) H 04/01/19 22:18 INR 1.11 04/01/19 22:18 Sodium 141 mmol/L (136-145) 04/04/19 05:09 Potassium 4.2 mmol/L (3.5-5.1) 04/04/19 05:09 BUN 7 mg/dL (7-18) 04/04/19 05:09 Creatinine 0.81 mg/dL (0.55-1.3) 04/04/19 05:09 Glucose 108 mg/dL (74-106) H 04/04/19 05:09 Phosphorus 2.4 mg/dL (2.5-4.9) L 04/04/19 05:09 Magnesium 1.8 mg/dL (1.8-2.4) 04/04/19 05:09 Total Bilirubin < 0.1 mg/dL (0.2-1.0) L 04/01/19 22:18 AST 9 U/L (15-37) L 04/01/19 22:18 ALT 13 U/L (12-78) 04/01/19 22:18 Alkaline Phosphatase 80 U/L (45-117) 04/01/19 22:18 Lipase 248 U/L (73-393) 04/01/19 22:18 Home Medications: Cholecalciferol (Vitamin D3) [Vitamin D3] 2,000 unit PO BID 04/02/19 Cyanocobalamin [Vitamin B-12*] 1,000 mcg PO DAILY 04/02/19 Gabapentin [Neurontin] 800 mg PO Q8H 04/02/19 Metformin HCl 1,000 mg PO BID 04/02/19 Multivitamin [Daily Multiple Vitamin] 1 each PO DAILY 04/02/19 Pantoprazole [Protonix Tab*] 40 mg PO DAILY 04/02/19 Sucralfate [Carafate*] 1 gm PO QID 04/02/19 Tizanidine HCl [Zanaflex] 6 mg PO Q6H 04/02/19 Diet: ADA Activity: Fall precautions Followup: Gigi Bedolla MD [ACTIVE - CAN ADMIT] - 1 Week Jose Antonio Rich MD [ACTIVE - CAN ADMIT] - 1-2 Weeks Time spent managing pt's care (in minutes): 40
--- NOTE | 2019-04-04 13:54 | ECHO ---
HEIGHT: 6 ft 2 in WEIGHT: 230 lb 11.2 oz DATE OF STUDY: 04/04/[address]: david pittman 2-DIMENSIONAL: YES M.MODE: YES DOPPLER: YES COLOR FLOW: YES TDS: PORTABLE: DEFINITY: BUBBLE STUDY: DIAGNOSIS: SYMPTOMATIC BRADYCARDIA CARDIAC HISTORY: CATHERIZATION: NO SURGERY: NO PROSTHETIC VALVE: NO PACEMAKER: NO MEASUREMENTS (cm) DIASTOLIC (NORMALS) SYSTOLIC (NORMALS) IVSd 1.2 (0.6-1.2) LA Diam 3.6 (1.9-4.0) LVEF 73% LVIDd 5.0 (3.5-5.7) LVIDs 2.9 (2.0-3.5) %FS 42% LVPWd 1.3 (0.6-1.2) Ao Diam 3.0 (2.0-3.7) 2 DIMENSIONAL ASSESSMENT: RIGHT ATRIUM: NORMAL LEFT ATRIUM: NORMAL RIGHT VENTRICLE: NORMAL LEFT VENTRICLE: NORMAL TRICUSPID VALVE: NORMAL MITRAL VALVE: NORMAL PULMONIC VALVE: NORMAL AORTIC VALVE: NORMAL PERICARDIAL EFFUSION: NONE AORTIC ROOT: NORMAL LEFT VENTRICULAR WALL MOTION: NORMAL DOPPLER/COLOR FLOW: MILD TRICUSPID REGURGITATION. COMMENTS: MILD TRICUSPID REGURGITATION NORMAL RIGHT VENTRICULAR SYSTOLIC PRESSURE. NORMAL LEFT VENTRICULAR SIZE AND FUNCTION. NO EFFUSION. TECHNOLOGIST: NINI RIVERO
== END 2019-04-04 17:00 | disposition home or self-care (01) | DRG 872 ==
LOC: ER 21:50 → ERHOLD 04-02 01:07 → 3RD-ICU 04-02 02:56 → 4TH 04-02 14:10
PROVIDERS: ADMIT Internal Medicine; ATTEND Internal Medicine
PROC: 30233N1 Transfusion of Nonautologous Red Blood Cells into Peripheral Vein, Percutaneous Approach (ICD-10-PCS; principal; 2019-04-02)
PROC: 30233N1 Transfusion of Nonautologous Red Blood Cells into Peripheral Vein, Percutaneous Approach (ICD-10-PCS; 2019-04-02)
DX: R57.1 Hypovolemic shock (principal); N17.9 Acute kidney failure, unspecified; R55 Syncope and collapse; D64.9 Anemia, unspecified; R00.1 Bradycardia, unspecified; E11.22 Type 2 diabetes mellitus with diabetic chronic kidney disease; N18.3 Chronic kidney disease, stage 3 (moderate); I12.9 Hypertensive chronic kidney disease with stage 1 through stage 4 chronic kidney disease, or unspecified chronic kidney disease; Z98.84 Bariatric surgery status
CPT/HCPCS: 36415; 36430; 71045; 74250; 80048; 80076; 81003; 82947; 83540; 83690; 83735; 83880; 84100; 84443; 84466; 84484; 85018; 85025; 85610; 86850; 86900; 86901; 87040; 87086; 87088; 93005; 93306; 96361; 96365; 96366; 96375; 99285; C9113; J1200; J3475; J7030; P9016

== ENCOUNTER 2019-08-17 19:37 | Inpatient (IN) | payer BC ==
[2019-08-18 01:20] LABS: Absolute Lymphocytes (CBC) 1.4 K/uL (0.7-4.9); Basophils % 0.4 % (0-1.3); Hematocrit 33.5 % (39.6-49.0); Lymphocytes % 26.2 % (15.3-44.8); MPV 8.9 fL (7.6-11.3); RBC Red Blood Cell Count 3.35 M/uL (4.33-5.43)
[2019-08-18 01:24] LABS: Protime INR 0.92
[2019-08-18 01:34] LABS: ALT/SGPT 22 U/L (12-78); AST/SGOT 9 U/L (15-37); Albumin 3.6 g/dL (3.4-5.0); Alkaline Phosphatase 97 U/L (45-117); BUN Blood Urea Nitrogen 33 mg/dL (7-18); Bicarbonate 13 mmol/L (21-32); Bilirubin Direct < 0.1 mg/dL (0-0.2); Bilirubin Total 0.3 mg/dL (0.2-1.0); Glucose Level 148 mg/dL (74-106); Lipase 78 U/L (73-393); Potassium 4.4 mmol/L (3.5-5.1); Protein, Total 7.1 g/dL (6.4-8.2); Sodium Level 141 mmol/L (136-145)
[2019-08-18] MEDS ORDERED: NA CHLORIDE 0.9% 1,000 ML ONE (02:17)
[2019-08-18] MEDS ORDERED: HYDROCODONE/APAP 7.5/325 MG TAB ONE (02:41)
--- OUTSIDE RECORDS SUMMARY | 2019-08-18 02:49 | XMS REPORT | Continuity of Care Document ---
:1975 Author Organization [facility] [employer] Care Team Providers Name Role Phone [facility] [employer] Unavailable Un available Problems Problem Status Onset Classification Date Comments [facility] e Date Reported [id number]--- Active 04/25/19 COMPLICATION OF 20 Jhonny ria BARIATRIC [facility] REFLUX Active 04/06/[address] KIDNEY STONE Active 08/20/[address] Herniated disc Resolved Problem 08/24/2012 [facility] Pyelonephritis Resolved Problem 08/24/2012 [facility] Benign essential Active Problem 08/10/2019 Medical hypertension Group,M H (disorder) [facility] Diabetes mellitus Active Problem 08/10/2019 H Medical (disorder) Group,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 Morbid obesity Active Problem 08/10/2019 [facility] edical (disorder) Group,[facility] Pyelonephritis Resolved Problem 08/10/2019 [facility] edical (disorder) Group,[facility] Hypertensive Active Problem 08/10/2019 Med ical disorder, Group, systemic arterial [facility] (disorder) [facility] CALCULUS OF Active [facility] ILLNESS, Active UNSPECIFIED [facility] Medications Medication Details Route Status Patient Ordering Order Source Instructions Provider Date remove patch Notes: Remove No Longer 05/04/ old patch Active 2019 [facility] application of new patch. scopolamine 1.5 Notes: Change No Longer 05/04/ mg transdermal patch every 72 Active 2019 [place] morial film hours (Same City as: Transderm-Scop) Acetaminophen Notes: Do not Inactive 05/02/ exceed 4 2019 [facility] gm/day. (Same City as: Tylenol) Acetaminophen Notes: Do not Inactive 05/02/ 325 MG / exceed 4gm/day 2019 [facility] Hydrocodone [facility] Bitartrate 10 MG acetaminophen. Oral Tablet (Same as: [place] 325/10) omeprazole 40 mg 40 mg = 1 cap, Active oral delayed PO, BID, # 60 2019 Memor ial release capsule cap, 1 [facility] Refill(s) Protonix Notes: For IV Inactive push 2019 [facility] with 10 ml 0.9% sodium chloride and push over 2 minutes. (Same as: Protonix) Lisinopril Notes: (Same Inactive as: Prinivil, 2019 [facility] Zestril) [facility] Lovenox Notes: (Same Inactive as: Lovenox) 2019 [facility] Calcium Chloride 1,000 mL, 1,000 Inactive 0.0014 MEQ/ML / ml/hr, Infuse 2019 [facility] Potassium Over: 1 hr, [facility] Chloride 0.004 Route: IV, MEQ/ML / Sodium 1,000, Drug Chloride 0.103 form: INJ, MEQ/ML / Sodium ONCE, Priority: Lactate 0.028 STAT, Dosing MEQ/ML Weight 102.9 Injectable kg, Start date: Solution 05/02/19 17:50:00 CDT, Stop date: 05/02/19 17:50:00 CDT, 0 Calcium Chloride 1,000 mL, 1,000 Inactive 0.0014 MEQ/ML / ml/hr, Infuse 2019 [facility] Potassium Over: 1 hr, [facility] Chloride 0.004 Route: IV, MEQ/ML / Sodium 1,000, Drug Chloride 0.103 form: INJ, MEQ/ML / Sodium ONCE, Priority: Lactate 0.028 STAT, Dosing MEQ/ML Weight 102.9 Injectable kg, Start date: Solution 05/02/19 17:10:00 CDT, Stop date: 05/02/19 17:10:00 CDT, 0 Ofirmev Notes: Infuse No Longer over [address] Do not exceed [facility] 4gm/day of acetaminophen MEDICATION WASTE Product Size: 1000 mg Product Wasted: ___ mg gabapentin 800 Notes: (Same No Longer MG Oral Tablet as: Neurontin) Active 2019 [facility] tizanidine 6 MG 6 mg = 1 cap, Active Oral Capsule PO, Q6H, PRN 2019 Memori al [Zanaflex] for muscle City spasms gabapentin 800 800 mg = 1 tab, Active H MG Oral Tablet PO, Q8H 2019 [facility] 72 HR Notes: Change Inactive Scopolamine patch every 72 2019 Memor ial 0.0139 MG/HR hours (Same [facility] Transdermal as: Patch Transderm-Scop) tizanidine Notes: (Same No Longer As: Zanaflex) [facility] 2019 [facility] Dextrose 50% 12.5 gm, 25 mL, No Longer H Syringe (D50W) Route: IVP, 2019 [facility] ial Drug Form: INJ, [facility] Dosing Weight 102.9, kg, PRN, PRN Blood Glucose Results, Start date: 05/02/19 12:52:00 CDT, Duration: 30 day, Stop date: 06/01/19 12:51:00 CDT, 0 Glucagon 1 mg, Route: No Longer IM, Drug form: [facility] 2019 [facility] PDR/INJ, PRN, [facility] Dosing Weight 102.9, kg, PRN Blood Glucose Results, Start date: 05/02/19 12:52:00 CDT, Duration: 30 day, Stop date: 06/01/19 12:51:00 CDT, 0 Insulin regular Notes: (Same No Longer H as: Humulin R) [address] in [facility] of hands gently; Do not shake vigorously. WASTE: F/P - Black; E - Municipal Trash Bin Stable for 31 days at room temperature Expires in days from D ate tramadol 50 mg = 1 tab, No Longer hydrochloride 50 PO, Q4H, PRN Active 2019 Me morial MG Oral Tablet Pain Score 4-6, C ity X 3 day, # 18 tab, 0 Refill(s) Sucralfate 1000 1 gm = 1 tab, Active MG Oral Tablet PO, QID-Before 2019 Me morial [Carafate] Meals, crush City and mix with 5-10mL water, # 56 tab, 0 Refill(s) omeprazole 40 mg 40 mg = 1 cap, No Longer oral delayed PO, Daily, # 30 2019 [facility] orial release capsule cap, 3 City Refill(s) ketOROLAC (ANES) IV, ONCE Inactive [address] [place] [address] sugammadex Route: IV, Drug Inactive (ANES) form: SOLN, [address] [place] [address] ONCE, Stop City date: 05/02/19 12:46:00 CDT Calcium Chloride 1,000 mL, Rate: No Longer 05/01 0.0014 MEQ/ML / 150 ml/hr, 2019 [facility] ial Potassium Infuse over: [facility] Chloride 0.004 6.7 hr, Route: MEQ/ML / Sodium IV, Dosing Chloride 0.103 Weight 102.9 MEQ/ML / Sodium kg, Total Lactate 0.028 Volume: 1,000, MEQ/ML Start date: Injectable 05/02/19 Solution 12:45:00 CDT, Duration: 30 day, Stop date: 06/01/19 12:44:00 CDT, 2.3, m2, 0 tramadol Notes: Not to No Longer hydrochloride 50 exceed [facility] [place] [facility] MG Oral Tablet 400mg/day. City (Same As: Ultram) Dilaudid Notes: Same as No Longer Dilaudid [address] Labetalol Notes: (Same No Longer as: Normodyne, [address] Trandate) Push City over 2 minutes Give bolus over 2-3 minutes. Hydralazine Notes: (Same No Longer as: Apresoline) [address] Push over 5 City minutes Ondansetron Notes: (Same No Longer as: Zofran) [address] MEDICATION City WASTE Product Size: 4 mg Product Wasted: ___ mg Promethazine 12.5 mg, 50 mL, No Longer H Route: IVPB, [address] Drug form: City SOLN, Q6H, Dosing Weight 102.9, kg, PRN Nausea & Vomiting, Start date: 05/02/19 12:45:00 CDT, Duration: 30 day, Stop date: 06/01/19 12:44:00 CDT, 0 ondansetron Route: IV, Drug Inactive (ANES) form: INJ, [address] [place] [address] ONCE, Stop [facility] date: 05/02/19 12:35:00 CDT phenylephrine Route: IV, Drug Inactive H (ANES) form: INJ, 2019 [facility] ONCE, Stop [facility] date: 05/02/19 11:24:00 CDT Calcium Chloride 1,000 mL, Rate: Inactive 0.0014 MEQ/ML / 125 ml/hr, 2019 [facility] ial Potassium Infuse over: 8 City Chloride 0.004 hr, Route: IV, MEQ/ML / Sodium Dosing Weight Chloride 0.103 102.9 kg, Total MEQ/ML / Sodium Volume: 1,000, Lactate 0.028 Start date: MEQ/ML 05/02/19 Injectable 10:55:00 CDT, Solution Duration: 30 day, Stop date: 06/01/19 10:54:00 CDT, 2.3, m2, 0 Sodium Chloride 1,000 mL, Rate: Inactive 0.9% IV 1,000 mL 125 ml/hr, 2019 Jhonny rial Infuse over: 8 City hr, Route: IV, Dosing Weight 102.9 kg, Total Volume: 1,000, Start date: 05/02/19 10:55:00 CDT, Duration: 30 day, Stop date: 06/01/19 10:54:00 CDT, 2.3, m2, 0 Hydralazine Notes: (Same Inactive as: Apresoline) [address] [place] [address] Push over 5 City minutes Labetalol Notes: (Same Inactive as: Normodyne, 2019 [facility] Trandate) Push [facility] over 2 minutes Give bolus over 2-3 minutes. Metoprolol Notes: (Same Inactive as: Lopressor) [address] [place] [address] Push over 2 City minutes Acetaminophen Notes: Max Inactive acetaminophen [address] [place] [address] 4000 mg/day (4 City gm/day). (Same as: Tylenol Extra Strength) Ibuprofen Notes: (Same Inactive as: Motrin) "Do [address] [place] [address] Not Crush" [facility] Take with food. Hydromorphone Notes: Same as Inactive Dilaudid [address] [place] [address] Morphine Notes: (Same Inactive as:MORPhine [address] [place] [address] Sulfate) [facility] Flumazenil Notes: (Same Inactive as: Romazicon) 2019 [facility] Naloxone Notes: Same as Inactive Narcan 2019 [facility] Albuterol 0.83 Notes: SEE RT Inactive MG/ML Inhalant DOCUMENTATION 2019 [facility] orial Solution (Same as: [facility] Proventil) Diphenhydramine Notes: (Same Inactive as: Benadryl) 2019 [facility] Meperidine Notes: (Same Inactive as: Demerol) 2019 [facility] "Use Precaution City in Elderly, Seizure disorders, and Renal impairment&quot ; Ondansetron Notes: (Same Inactive as: Zofran) 2019 [facility] MEDICATION City WASTE Product Size: 4 mg Product Wasted: ___ mg Dexamethasone Notes: Inactive Concentration: 2019 [facility] 4mg/ml [facility] Promethazine Notes: Do not Inactive give IV push. 2019 [facility] (Same as: [facility] Phenergan) 72 HR 1 patch, Route: Inactive Scopolamine TOP, Drug Form: 2019 Jhonny rial 0.0139 MG/HR ERFILM, Dosing [facility] Transdermal Weight 102.9, Patch kg, ONCE, Apply behind ear. Avoid use in elderly., Start date: 05/02/19 10:55:00 CDT, Stop date: 05/02/19 10:55:00 CDT Midazolam Notes: (Same Inactive as: Versed) 2019 [facility] MEDICATION City WASTE Product Size: 2 mg Product Wasted: ___ mg ePHEDrine (ANES) Route: IV, Drug Inactive form: INJ, 2019 [facility] ONCE, Stop City date: 05/02/19 10:54:00 CDT fentaNYL (ANES) Route: IV, Drug Inactive form: [id number] [facility] ONCE, Stop City date: 05/02/19 10:44:00 CDT lidocaine (ANES) Route: IV, Drug Inactive form: [id number] [facility] , Stop City date: 05/02/19 10:44:00 CDT propofol (ANES) Route: IV, Drug Inactive form: INJ, 2019 [facility] , Stop City date: 05/02/19 10:44:00 CDT famotidine Route: IV, Drug Inactive (ANES) form: [id number] [facility] , Stop date: 05/02/19 10:44:00 CDT rocuronium Route: IV, Drug Inactive (ANES) form: [id number] [facility] , City date: 05/02/19 10:39:00 CDT ceFAZolin (ANES) Route: IV, Drug Inactive form: INJ, 2019 [facility] , Stop City date: 05/02/19 10:39:00 CDT succinylcholine Route: IV, Drug Inactive (ANES) form: [id number] [facility] , date: 05/02/19 10:39:00 CDT midazolam (ANES) Route: IV, Drug Inactive form: SOLN, 2019 [facility] , date: 05/02/19 10:28:00 CDT acetaminophen Route: IV, Drug Inactive H (ANES) 10 mg form: INJ, 2019 Start date: 05/02/19 10:12:00 CDT, Stop date: 05/02/19 11:12:00 CDT Sodium Chloride Route: IV, Inactive 0.9% IV (ANES) Total Volume: 2019 Mem orial 1000 mL 1,000, Start City date: 05/02/19 9:48:00 CDT, Stop date: 05/02/19 10:48:00 CDT Sodium Chloride 1,000 mL, Rate: Inactive 0.9% IV 1,000 mL 75 ml/hr, 2019 Memor ial Infuse over: [facility] 13.3 hr, Route: IV, Dosing Weight 102.9 kg, Total Volume: 1,000, Start date: 05/02/19 9:11:00 CDT, Duration: 30 day, Stop date: 06/01/19 9:10:00 CDT, 2.3, m2, 0 ceFAZolin + Notes: (Same No Longer sterile water 20 As: Ancef, Active 2019 Jhonny rial mL Kefzol) City MEDICATION WASTE Product Size: 1000 mg Product Wasted: ___ mg scopolamine Notes: Change No Longer patch every 72 Active 2019 [facility] (Same City as: Transderm-Scop) pantoprazole 40 40 mg = 1 tab, No Longer mg oral enteric PO, TID, # 30 Active 2019 Me morial coated tablet tab, 3 City Refill(s) gabapentin 800 800 mg = 1 tab, Active H MG Oral Tablet PO, TID, 0 2019 Medica l Refill(s) Group Sucralfate 100 1 gm = 10 mL, Active MG/ML Oral PO, QID-Before 2019 Medica l Suspension Meals, 0 Group [Carafate] Refill(s) pantoprazole 40 40 mg = 1 tab, Active H mg oral enteric PO, Daily, 0 2020 Med ical coated tablet Refill(s) Group Metformin 1,000 mg = 1 Active hydrochloride tab, PO, BID, 0 2019 Me dical 1000 MG Oral Refill(s) Group Tablet lisinopril 20 mg 20 mg = 1 tab, Active oral tablet PO, Daily, 0 2019 Medical Refill(s) Group Colace 100 mg 100 mg, 1 cap, PO Active [facility] [place] oral capsule PO, BID, 30 2012 Medical cap, Center Substitution Allowed, CAP [place] 10/325 1 tab, PO, Q6H, PO Active [facility] oral tablet PRN, 15 tab, 2012 Medical Pain, Center Substitution Allowed, Maintenance, TAB Keflex 500 mg 500 mg, 1 cap, PO Active [facility] oral capsule PO, QID, 40 2012 Medical cap, Center Substitution Allowed, CAP Insulin regular 4 unit, 0.04 SUB-Q No Longer [facility] mL, Route: Active 2012 Medical SUB-Q, Drug Center form: SOLN, Bedtime, Dosing Weight 153.636, kg, PRN Blood Glucose Results, Start date: 08/21/12 12:06:00, Duration: 30 day, Stop date: 09/20/12 12:05:00 glucagon 1 mg, Route: IM No Longer Ileana Sukhjinder as IM, Drug form: Active 2012 Medical PDR/INJ, PRN, Center Dosing Weight 153.636, kg, PRN Blood Glucose Results, Start date: 08/21/12 12:06:00, Duration: 30 day, Stop date: 09/20/12 12:05:00 Dextrose 50% 25 gm, 50 mL, IVP No Longer Ileana [place] Syringe Route: IVP, Active 2012 Medical Drug Form: INJ, Center Dosing Weight 153.636, kg, PRN, PRN Blood Glucose Results, Start date: 08/21/12 12:06:00, Duration: 30 day, Stop date: 09/20/12 12:05:00 bisacodyl 10 mg, 1 supp, OH No Longer Ileana [facility] Route: OH, Drug Active 2012 Medical form: SUPP, Center Daily, Dosing Weight 153.636, kg, PRN Constipation, Start date: 08/21/12 9:45:00, Duration: 30 day, Stop date: 09/20/12 9:44:00 Insulin regular 1 unit, 0.01 SUB-Q No Longer Ileana [facility] mL, Route: Active 2012 Medical SUB-Q, Drug Center form: SOLN, TID-Before Meals, Dosing Weight 153.636, kg, PRN Blood Glucose Results, Start date: 08/21/12 6:35:00, Duration: 30 day, Stop date: 09/20/12 6:34:00 glucagon 1 mg, Route: IM No Longer Ileana Sukhjinder as IM, Drug form: Active 2012 Medical PDR/INJ, PRN, Center Dosing Weight 153.636, kg, PRN Blood Glucose Results, Start date: 08/21/12 6:35:00, Duration: 30 day, Stop date: 09/20/12 6:34:00 Dextrose 50% 25 gm, 50 mL, IVP No Longer Ileana 08/21/ [facility] Syringe Route: IVP, Active 2012 Medical Drug Form: INJ, Center Dosing Weight 153.636, kg, PRN, PRN Blood Glucose Results, Start date: 08/21/12 6:35:00, Duration: 30 day, Stop date: 09/20/12 6:34:00 [place] 10/325 1 tab, Route: PO No Longer Ileana 13/ H [place] oral tablet PO, Drug Form: Active 2012 Medic al TAB, Dosing Center Weight 153.636, kg, Q6H, Start date: 08/20/12 18:00:00, Duration: 30 day, Stop date: 09/19/12 12:00:00 tizanidine 8 mg, 2 tab, PO No Longer [place] Route: PO, Drug Active 2012 Medical form: TAB, BID, Center Dosing Weight 153.636, kg, Start date: 08/20/12 17:00:00, Duration: 30 day, Stop date: 09/19/12 9:00:00 Flexeril 10 mg, 1 tab, PO No Longer [place] Route: PO, Drug Active 2012 Medical form: TAB, BID, Center Dosing Weight 153.636, kg, PRN Spasm, Start date: 08/20/12 11:21:00, Duration: 30 day, Stop date: 09/19/12 11:20:00 Colace 100 mg 100 mg, 1 cap, PO No Longer [facility] oral capsule Route: PO, Drug Active 2012 Med ical form: CAP, BID, Center Dosing Weight 153.636, kg, Start date: 08/20/12 9:00:00, Duration: 30 day, Stop date: 09/18/12 17:00:00 senna 8.6 mg, 1 tab, PO No Longer [place] Route: PO, Drug Active 2012 Medical Form: TAB, Center Dosing Weight 153.636, kg, BID, Start date: 08/20/12 9:00:00, Duration: 30 day, Stop date: 09/18/12 17:00:00 [place] 10/325 1 tab, Route: PO No Longer Ileana H [place] oral tablet PO, Drug Form: Active 2012 Medic al TAB, Dosing Center Weight 153.636, kg, Q6H, PRN Pain, Start date: 08/20/12 6:36:00, Duration: 30 day, Stop date: 09/19/12 6:35:00 Dilaudid 1 mg, Route: IVP No Longer Donnie 07/13[facility] IVP, ONCE, Active 2012 Medical Dosing Weight Center 152.273, kg, Priority: STAT, Start date: 08/20/12 2:14:00, Stop date: 08/20/12 2:14:00 Rocephin 1 gm, Route: IVPB No Longer [place] IVPB, Drug Active 2012 Medical form: PDR/INJ, Center [id number], Dosing Weight 152.273, kg, Start date: 08/20/12 2:00:00, Duration: 30 day, Stop date: 09/18/12 2:00:00 ondansetron 4 mg, Route: IVP No Longer [place] IVP, ONCE, Active 2012 Medical Dosing Weight Center 152.273, kg, PRN Nausea & Vomiting, Start date: 08/20/12 1:32:00 naloxone 0.04 mg, 0.1 IVP No Longer Donnie 08/20[facility] mL, Route: IVP, 2012 Medical Drug form: INJ, Center Q2MIN, Dosing Weight 152.273, kg, PRN Narcotic Reversal, Start date: 08/20/12 1:32:00, Duration: 8 doses or times, Stop date: Limited # of times hydromorphone 0.5 mg, 0.25 IVP No Longer Roselia 08/20[facility] mL, Route: IVP, 2012 Medical Drug form: INJ, Center Q5Min, Dosing Weight 152.273, kg, PRN Pain Score 7-10, Start date: 08/20/12 1:32:00, Duration: 5 doses or times, Stop date: Limited # of times flumazenil 0.2 mg, 2 mL, IVP No Longer [place] Route: IVP, Active 2012 Medical Drug form: INJ, Center PRN, Dosing Weight 152.273, kg, PRN Benzodiazepine Reversal, Initial dose, Start date: 08/20/12 1:32:00, Duration: 30 day, Stop date: 09/19/12 1:31:00 Rocephin 1 gm, Route: IVPB No Longer [place] IVPB, Drug Active 2012 Medical form: PDR/INJ, Center [id number], Dosing Weight 152.273, kg, Start date: 08/20/12 0:00:00, Duration: 30 day, Stop date: 09/18/12 0:00:00 Dilaudid 1 mg, Route: IVP No Longer [place] 08/20[facility] IVP, ONCE, Active 2012 Medical Dosing Weight Center 152.273, kg, Priority: STAT, Start date: 08/19/12 22:53:00, Stop date: 08/19/12 22:53:00 ciprofloxacin 400 mg, 200 mL, IVPB No Longer [facility] 08/20[facility] Route: IVPB, Active 2012 Medical Drug form: INJ, Center [id number], Dosing Weight 152.273, kg, Priority: STAT, Start date: 08/19/12 22:04:00, Duration: 30 day, Stop date: 09/18/12 10:04:00 morphine Sulfate 2 mg, 1 mL, IVP No Longer [facility] 08/20[facility] Route: IVP, Active 2012 Medical Drug form: INJ, Center Q2H, Dosing Weight 152.273, kg, PRN Break[facility] Pain, Start date: 08/19/12 22:02:00, Duration: 30 day, Stop date: 09/18/12 22:01:00 omega-3 1,000 mg, 1 PO Active 08/20[facility] polyunsaturated cap, PO, BID, 2012 Me dical fatty acids 1000 Substitution Ce nter mg oral capsule Allowed Unknown Home fenugreek Active [facility] Medication herbal 2012 Medical supplement- 1 Center tab po daily, Substitution Allowed multivitamin 1 tab, PO, PO Active 08/20[facility] Daily, 2012 Medical Substitution Center Allowed, Maintenance ibuprofen 800 mg 800 mg, 1 tab, PO Active [facility] oral tablet PO, TID, PRN, 2012 Medica l 270 tab, as Center needed for pain, Substitution Allowed, TAB tizanidine 4 mg 8 mg, 2 tab, PO Active 08/20[facility] oral tablet PO, BID, 180 2012 Medical tab, Center Substitution Allowed, TAB tramadol 50 mg 50 mg, 1 tab, PO Active [facility] oral tablet PO, BID, PRN, 2012 Medica l 40 tab, Pain, Center Substitution Allowed, TAB Flexeril 10 mg 10 mg, 1 tab, PO Active [place] oral tablet PO, BID, PRN, 2012 Medica l 30 tab, for Center spasm, Substitution Allowed, TAB Vicodin HP 660 1 tab, PO, TID, PO Active [place] mg-10 mg oral PRN, for pain, 2012 Med ical tablet Substitution Center Allowed, Maintenance, TAB NS 1,000 mL 1,000 mL, Rate: IV No Longer Ileana [place] 42 ml/hr, Active 2012 Medical Infuse over: Center 23.8 hr, Route: IV, Dosing Weight 152.273 kg, Total Volume: 1,000, Start date: 08/19/12 20:53:00, Stop date: 09/18/12 20:52:00 acetaminophen 650 mg, Route: PO No Longer Hoot [place] PO, ONCE, Active 2012 Medical Dosing Weight Center 152.273, kg, Priority: STAT, Start date: 08/19/12 19:45:00, Stop date: 08/19/12 19:45:00 Dilaudid 1 mg, Route: IV No Longer ot [place] IV, ONCE, Active 2012 Medical Dosing Weight Center 152.273, kg, Start date: 08/19/12 19:37:00, Stop date: 08/19/12 19:37:00 Toradol 30 mg/mL 30 mg, Route: IV No Longer ot [place] injectable IV, ONCE, Active 2012 Medical solution Dosing Weight Center 152.273, kg, Start date: 08/19/12 19:37:00, Stop date: 08/19/12 19:37:00 Allergies, Adverse Reactions, Alerts Substance Category Reaction Severity Reaction Status Date Comments S ource type Reported No Known Assertion Drug MH Medication allergy Medic al Allergies Group Immunizations No Data Provided for This Section Results Order Name Results Value Reference Date Interpretation Comments Lenora rce Range HEMATOLOGY Hgb 9.0 14.0 - 05/02 MH 18.0 [facility] CHEM PANEL Glucose Lvl 173 70 - 99 05/02 [facility] CHEM PANEL BUN 19 7 - 22 05/02 [facility] CHEM PANEL Creatinine 1.10 0.50 - 05/02 MH Lvl 1.40 [facility] CHEM PANEL Sodium Lvl 138 135 - 145 05/02 [facility] CHEM PANEL Potassium 5.0 3.5 - 5.1 05/02 MH Lvl /2019 [facility] CHEM PANEL Chloride Lvl 111 95 - 109 05/02 [facility] CHEM PANEL CO2 19 24 - 32 05/02 [facility] CHEM PANEL Calcium Lvl 8.4 8.5 - 10.5 05/02 [facility] CHEM PANEL AGAP 13.0 10.0 - 05/02 MH 20.0 [facility] CHEM PANEL eGFR 81 05/02 Result Comment: The [facility] eGFR is City calculated using the CKD-EPI formula. In most young, healthy individuals the eGFR will be >90 mL/min/1.73m2 . The eGFR declines with age. An eGFR of 60-89 may be normal in some populations, particularly the elderly, for whom the CKD-EPI formula has not been extensively validated. Use of the eGFR is not recommended in the following populations:< br/>
Jenny viduals with unstable creatinine concentration s, including patients and those with serious co-morbid conditions.<b r/>
Patie nts with extremes in muscle mass or diet.

The data above are obtained from the National Kidney Disease Education Program (NKDEP) which additionally recommends that when the eGFR is used in patients with extremes of body mass index for purposes of drug dosing, the eGFR should be multiplied by the estimated BMI. HEMATOLOGY Segs 68.9 45.0 - 05/02 MH 75.0 [facility] HEMATOLOGY Lymphocytes 23.8 20.0 - 05/02 MH 40.0 [facility] HEMATOLOGY Monocytes 6.1 2.0 - 12.0 05/02 MH /2019 [facility] HEMATOLOGY Eosinophils 1.1 0.0 - 4.0 05/02 [facility] HEMATOLOGY Basophils 0.1 0.0 - 1.0 05/02 [facility] HEMATOLOGY Neutrophils 4.6 1.5 - 8.1 05/02 MH # /2019 [facility] HEMATOLOGY Lymphocytes 1.6 1.0 - 5.5 05/02 MH # [facility] HEMATOLOGY Monocytes # 0.4 0.0 - 0.8 05/02 [facility] HEMATOLOGY Eosinophils 0.1 0.0 - 0.5 / MH # /2019 [facility] HEMATOLOGY WBC 6.7 3.7 - 10.4 03 MH /2019 [facility] HEMATOLOGY RBC 2.86 4.70 - 05/02 MH 6.10 [facility] HEMATOLOGY Hgb 8.6 14.0 - 05/02 [facility] 18.0 [facility] [facility] HEMATOLOGY Hct 27.1 42.0 - 05/02 MH 54.0 /2019 [facility] HEMATOLOGY MCV 95.0 80.0 - 05/02 MH 94.0 /2019 [facility] HEMATOLOGY MCH 30.2 27.0 - 05/02 MH 31.0 /2019 [facility] HEMATOLOGY MCHC 31.8 32.0 - 05/02 MH 36.0 /2019 [facility] HEMATOLOGY RDW 16.5 11.5 - 05/02 MH 14.5 /2019 [facility] HEMATOLOGY Platelet 203 133 - 450 05/02 MH /2019 [facility] HEMATOLOGY MPV 8.3 7.4 - 10.4 05/02 MH /2019 [facility] HEMATOLOGY Hgb 9.3 14.0 - 05/02 MH 18.0 [facility] HEMATOLOGY Hct 33.0 42.0 - 05/01 MH 54.0 [facility] BLOOD BANK ABO/Rh A POS 05/01 RESULTS /2019 [facility] BLOOD BANK Antibody Negative 05/01 RESULTS Scrn (05/02/19 8:55 AM) /2019 [facility] [place] CHEM PANEL Vit B1 Lvl 128.8 66.5 - 05/01 Result MH (Bariatric) 200.0 Comment: This [facility] test was [place] developed and its performance characteristi cs
determ ined by [facility]. It has not been cleared or
approv ed by the Food and Drug Administratio n.
Perfor med At: [facility] [place]
[id number], [place] [id number]<br/ >Clement Stock MD Ph:[phone] CHEM PANEL Vitamin D, 70.5 30.0 - 05/01 MH 25-OH, Total 100.0 [facility] HEMATOLOGY WBC 5.7 3.7 - 10.4 05/01 MH /2019 [facility] HEMATOLOGY RBC 3.94 4.70 - 05/01 MH 6.10 [facility] HEMATOLOGY Hct 36.9 42.0 - 05/01 MH 54.0 [facility] HEMATOLOGY MCV 93.6 80.0 - 05/01 MH 94.0 /2019 [facility] HEMATOLOGY MCH 30.6 27.0 - 05/01 MH 31.0 /2019 [facility] HEMATOLOGY MCHC 32.7 32.0 - 05/01 MH 36.0 /2019 [facility] HEMATOLOGY RDW 16.5 11.5 - 05/01 MH 14.5 /2019 [facility] HEMATOLOGY Platelet 271 133 - 450 03 MH /2019 [facility] HEMATOLOGY MPV 7.8 7.4 - 10.4 03/ MH /2019 [facility] HEMATOLOGY PT 12.2 12.0 - 05/01 MH 14.7 /2019 [facility] HEMATOLOGY INR 0.91 0.85 - 05/01 MH 1.17 /2019 [facility] HEMATOLOGY PTT 26.7 22.9 - 05/01 MH 35.8 [facility] HEMATOLOGY Segs 52.1 45.0 - 05/01 MH 75.0 [facility] HEMATOLOGY Lymphocytes 37.6 20.0 - 05/01 MH 40.0 [facility] HEMATOLOGY Monocytes 6.5 2.0 - 12.0 03 MH /2019 [facility] HEMATOLOGY Eosinophils 3.5 0.0 - 4.0 03/ MH /2019 [facility] HEMATOLOGY Basophils 0.3 0.0 - 1.0 03/ MH /2019 [facility] HEMATOLOGY Neutrophils 3.0 1.5 - 8.1 05/01 # /2019 [facility] HEMATOLOGY Lymphocytes 2.1 1.0 - 5.5 05/01 # /2019 [facility] HEMATOLOGY Monocytes # 0.4 0.0 - 0.8 05/01 [facility] HEMATOLOGY Eosinophils 0.2 0.0 - 0.5 05/01 # /2019 [facility] URINE AND UA Turbidity Clear Clear 05/01 STOOL (05/02/19 8:45 AM) [facility] URINE AND UA Spec Grav 1.009 <=1.030 05/01 STOOL /2019 [facility] URINE AND UA pH 5.0 5.0 - 8.0 05/01 STOOL /2019 [facility] URINE AND UA Protein Negative Negative 05/01 STOOL mg/dL mg/dL [facility] URINE AND UA Glucose Negative Negative 05/01 STOOL mg/dL mg/dL [facility] URINE AND UA Bili Negative Negative 05/01 STOOL *NA* /2019 [facility] (05/02/19 8:45 AM) [facility] URINE AND UA Blood Negative Negative 05/01 STOOL (05/02/19 8:45 AM) [facility] [place] URINE AND UA Nitrite Negative Negative 05/01 STOOL (05/02/19 8:45 AM) [facility] [place] URINE AND UA Leuk Est Negative Negative 05/01 STOOL (05/02/19 8:45 AM) [facility] [place] URINE AND Micro? Not Indicated 05/01 STOOL *NA* /2019 [facility] (05/02/19 8:45 AM) [facility] URINE AND UA Color Straw 05/01 STOOL /2019 [facility] URINE AND UA Ketones Negative 05/01 STOOL [facility] URINE AND UA <=1.0 0.1 - 1.0 05/01 STOOL Urobilinogen mg/dL /2019 [facility] ELECTROLYTE POC Sodium 136 135 - 145 04/10 S [facility] ELECTROLYTE POC 3.8 3.5 - 5.1 04/10 S Potassium /2019 [facility] ELECTROLYTE POC Glucose 92 70 - 99 04/10 S /2019 [facility] ELECTROLYTE POC 10.5 14.0 - 04/10 S Hemoglobin 18.0 [facility] ELECTROLYTE POC 31.0 42.0 - 04/10 S Hematocrit 54.0 [facility] BEDSIDE Gluc POC 168 70 - 99 08/22 HI <sup>1</sup>I [facility] GLUCOSE [facility] nterpretive Medical TESTING Data: Center Upper Reportable Limit: 200 mg/dL. BEDSIDE Comment1 Notify 08/22 NA [facility] GLUCOSE RN/MD Medical TESTING Center CHEMISTRY AGAP 14.8 10.0 - 08/22 Normal [facility] 20.0 [facility] CHEMISTRY eGFR 69 08/22 NA <sup>4</sup>R esult Medical Comment: The Center eGFR is calculated using the CKD-EPI formula. In most young, healthy individuals the eGFR will be >90 mL/min/1.73m2 . The eGFR declines with age. An eGFR of 60-89 may be normal in some populations, particularly the elderly, for whom the CKD-EPI formula has not been extensively validated. Use of the eGFR is not recommended in the following populations:& lt;br/>
I ndividuals with unstable creatinine concentration s, including patients and those with serious co-morbid conditions.<b r/>
Patie nts with extremes in muscle mass or diet.

The data above are obtained from the National Kidney Disease Education Program (NKDEP) which additionally recommends that when the eGFR is used in patients with extremes of body mass index for purposes of drug dosing, the eGFR should be multiplied by the estimated BMI. CHEMISTRY Calcium Lvl 8.0 8.5 - 10.5 08/22 LOW a s [facility] Center CHEMISTRY Chloride Lvl 106 95 - 109 08/22 Normal [facility] Center CHEMISTRY CO2 24 24 - 32 08/22 Normal [facility] CHEMISTRY Potassium 3.8 3.5 - 5.1 08/22 Normal [facility] Lv [facility] Center CHEMISTRY Sodium Lvl 141 135 - 145 08/22 [facility] CHEMISTRY Creatinine 1.3 0.5 - 1.4 08/22 Normal [facility] CHEMISTRY BUN 22 7 - 22 08/22 Normal [facility] CHEMISTRY Glucose Lvl 152 70 - 99 08/22 HI <sup>7</sup>I T ex nterpretive Medical Data: Adult Center reference range values reflect the clinical guidelines
of the [place] [employer]. HEMATOLOGY Platelet 130 133 - 450 08/22 [facility] HEMATOLOGY RDW 15.1 11.5 - 08/22 [facility] [place] 14.5 [facility] HEMATOLOGY MCHC 33.6 32.0 - 08/22 Normal [place] 36.0 /2012 [facility] HEMATOLOGY MCH 28.5 27.0 - 08/22 [facility] [place] 31.0 Medical Center HEMATOLOGY MCV 84.8 80.0 - 08/22 Normal [place] 94.0 /2012 [facility] HEMATOLOGY Hct 30.7 42.0 - 07 [facility] [place] 54.0 /2012 [facility] Center HEMATOLOGY Hgb 10.3 14.0 - 08/22 [facility] [place] 18.0 [facility] HEMATOLOGY MPV 9.1 7.4 - 10.4 08/22 Normal [facility] HEMATOLOGY RBC 3.62 4.70 - 08/22 [facility] [place] 6.10 Medical Center HEMATOLOGY WBC 7.6 3.7 - 10.4 08/22 Normal [facility] Center HEMATOLOGY Lymphocytes 1.0 1.0 - 5.5 08/22 [facility] [place] # /2012 [facility] HEMATOLOGY Segs-Bands # 5.5 1.5 - 8.1 08/22 Normal Sukhjinder as /2012 [facility] HEMATOLOGY Monocytes # 1.0 0.0 - 0.8 08/22 [place] [facility] HEMATOLOGY Eosinophils 0.1 0.0 - 0.5 08/22 [place] # /2012 [facility] Center HEMATOLOGY Basophils 0.3 0.0 - 1.0 08/22 Normal [facility] HEMATOLOGY Eosinophils 1.1 0.0 - 4.0 08/22 [place]2012 [facility] HEMATOLOGY Monocytes 13.1 2.0 - 12.0 08/22 HI [facility] HEMATOLOGY Lymphocytes 13.2 20.0 - 08/22 LOW [place] 40.0 [facility] HEMATOLOGY Segs 72.3 45.0 - 08/22 Normal [facility] 75.0 [facility] BEDSIDE Gluc POC 328 70 - 99 08/22 HI <sup>2</sup>I [facility] GLUCOSE [facility] nterpretive Medical TESTING Data: Center Upper Reportable Limit: 200 mg/dL. BEDSIDE Comment1 Notify 08/21 NA [facility] GLUCOSE RN/ /2012 [facility] TESTING Center BEDSIDE Gluc POC 168 70 - 99 08/21 HI <sup>3</sup>I [facility] GLUCOSE [facility] nterpretive Medical TESTING Data: [place] Upper Reportable Limit: 200 mg/dL. BEDSIDE Comment1 Notify 08/21 NA [facility] GLUCOSE RN/ [facility] TESTING Center Microbiolog Culture: 08/21 [facility] y Urine [facility] CHEMISTRY eGFR 76 08/21 NA <sup>5</sup>R esult Medical Comment: The Center eGFR is calculated using the CKD-EPI formula. In most young, healthy individuals the eGFR will be >90 mL/min/1.73m2 . The eGFR declines with age. An eGFR of 60-89 may be normal in some populations, particularly the elderly, for whom the CKD-EPI formula has not been extensively validated. Use of the eGFR is not recommended in the following populations:& lt;br/>
I ndividuals with unstable creatinine concentration s, including patients and those with serious co-morbid conditions.<b r/>
Patie nts with extremes in muscle mass or diet.

The data above are obtained from the National Kidney Disease Education Program (NKDEP) which additionally recommends that when the eGFR is used in patients with extremes of body mass index for purposes of drug dosing, the eGFR should be multiplied by the estimated BMI. CHEMISTRY Creatinine 1.2 0.5 - 1.4 08/21 Normal [facility] CHEMISTRY BUN 16 7 - 22 08/21 Normal [facility] CHEMISTRY Chloride Lvl 103 95 - 109 08/21 Normal [facility] CHEMISTRY Potassium 3.6 3.5 - 5.1 08/21 Normal [facility] Lvl [facility] CHEMISTRY Sodium Lvl 138 135 - 145 08/21 [facility] CHEMISTRY Glucose Lvl 187 70 - 99 08/21 [place] <sup>8</sup>I [place] nterpretive Medical Data: Adult Center reference range values reflect the clinical guidelines
of the [place] [employer]. CHEMISTRY Calcium Lvl 8.0 8.5 - 10.5 08/21 [place] [facility] Center CHEMISTRY CO2 24 24 - 32 08/21 Normal [facility] CHEMISTRY AGAP 14.6 10.0 - 08/21 [facility] [place] 20.0 /2012 Medical Center HEMATOLOGY MCHC 32.6 32.0 - 08/21 [facility] [place] 36.0 /2012 [facility] HEMATOLOGY RDW 15.3 11.5 - 08/21 [facility] [place] 14.5 /2012 [facility] HEMATOLOGY Hct 30.0 42.0 - 08/21 LOW [place] 54.0 /2012 [facility] Center HEMATOLOGY MCV 86.0 80.0 - 08/21 [facility] [place] 94.0 /2012 [facility] Center HEMATOLOGY MCH 28.0 27.0 - 07 Normal [place] 31.0 /2012 [facility] HEMATOLOGY MPV 9.2 7.4 - 10.4 08/21 [facility] HEMATOLOGY Platelet 141 133 - 450 08/21 Normal [facility] HEMATOLOGY WBC 15.8 3.7 - 10.4 08/21 HI [facility] HEMATOLOGY RBC 3.49 4.70 - 08/21 LOW [place] 6.10 [facility] HEMATOLOGY Hgb 9.8 14.0 - 08/21 [facility] [place] 18.0 /2012 [facility] HEMATOLOGY Segs 88.7 45.0 - 08/21 [facility] [place] 75.0 /2012 [facility] HEMATOLOGY Lymphocytes 6.5 20.0 - 08/21 LOW [place] 40.0 /2012 [facility] HEMATOLOGY Monocytes 4.5 2.0 - 12.0 08/21 Normal [facility] HEMATOLOGY Eosinophils 0.2 0.0 - 4.0 08/21 Normal a [facility] HEMATOLOGY Segs-Bands # 14.0 1.5 - 8.1 08/21 HI [facility] HEMATOLOGY Basophils 0.1 0.0 - 1.0 08/21 Normal [facility] HEMATOLOGY Monocytes # 0.7 0.0 - 0.8 08/21 Normal [facility] HEMATOLOGY Lymphocytes 1.0 1.0 - 5.5 08/21 Normal [facility] CHEMISTRY eGFR 69 08/20 NA <sup>6</sup>R esult Medical Comment: The Center eGFR is calculated using the CKD-EPI formula. In most young, healthy individuals the eGFR will be >90 mL/min/1.73m2 . The eGFR declines with age. An eGFR of 60-89 may be normal in some populations, particularly the elderly, for whom the CKD-EPI formula has not been extensively validated. Use of the eGFR is not recommended in the following populations:& lt;br/>
I ndividuals with unstable creatinine concentration s, including patients and those with serious co-morbid conditions.<b r/>
Patie nts with extremes in muscle mass or diet.

The data above are obtained from the National Kidney Disease Education Program (NKDEP) which additionally recommends that when the eGFR is used in patients with extremes of body mass index for purposes of drug dosing, the eGFR should be multiplied by the estimated BMI. CHEMISTRY Chloride Lvl 106 95 - 109 08/20 Normal [facility] CHEMISTRY Calcium Lvl 7.6 8.5 - 10.5 08/20 [facility] CHEMISTRY AGAP 17.8 10.0 - 08/20 Normal [facility] 20.0 [facility] CHEMISTRY CO2 21 24 - 32 08/20 LOW [facility] CHEMISTRY Glucose Lvl 224 70 - 99 08/20 HI <sup>9</sup>I T ex /2012 nterpretive Medical Data: Adult Center reference range values reflect the clinical guidelines
of the [place] [employer]. CHEMISTRY BUN 14 7 - 22 08/20 Normal [facility] Center CHEMISTRY Potassium 3.8 3.5 - 5.1 08/20 Normal [facility] Lvl [facility] Center CHEMISTRY Creatinine 1.3 0.5 - 1.4 08/20 Normal [facility] Lvl Medical Center CHEMISTRY Sodium Lvl 141 135 - 145 08/20 Normal /2012 Medical Center HEMATOLOGY Plt Morph Normal 08/20 Normal [facility] (08/20/2012 05:30:00) Mi dicva Center HEMATOLOGY Tot Cell Ct 100 08/20 NA [facility] HEMATOLOGY Segs 65.0 45.0 - 08/20 Normal [place] 75.0 /2012 [facility] HEMATOLOGY Bands 28.0 0.0 - 11.0 08/20 HI [facility] HEMATOLOGY Monocytes # 0.2 0.0 - 0.8 08/20 [place] [facility] HEMATOLOGY RBC Morph Normal 08/20 Normal [facility] (08/20/2012 05:30:00) Mi dicva Center HEMATOLOGY Atypical 0.0 <=0.0 08/20 Normal [facility] Lymphs /2012 Medical Center HEMATOLOGY Monocytes 1.0 2.0 - 12.0 08/20 LOW [place] /2012 Medical [facility] HEMATOLOGY Metamyelocyt 1.0 0.0 - 1.0 08/20 Normal [facility] as es [facility] HEMATOLOGY Lymphocytes 5.0 20.0 - 08/20 LOW [place] 40.0 Medical Center HEMATOLOGY Lymphocytes 1.2 1.0 - 5.5 08/20 [place] # /2012 [facility] HEMATOLOGY Segs-Bands # 23.1 1.5 - 8.1 08/20 [facility] as [facility] HEMATOLOGY MCHC 32.3 32.0 - 08/20 Normal [place] 36.0 Medical Center HEMATOLOGY RDW 15.0 11.5 - 08/20 [facility] [place] 14.5 Medical Center HEMATOLOGY Hgb 10.3 14.0 - 08/20 LOW [place] 18.0 /2012 Medical Center HEMATOLOGY RBC 3.67 4.70 - 08/20 LOW [place] 6.10 /2012 Medical Center HEMATOLOGY WBC 24.8 3.7 - 10.4 08/20 HI Medical [place] HEMATOLOGY MCV 86.5 80.0 - 08/20 Normal [place] 94.0 /2012 Medical [place] HEMATOLOGY MCH 27.9 27.0 - 08/20 Normal [facility] 31.0 Medical [place] HEMATOLOGY Hct 31.8 42.0 - 07 LOW [place] 54.0 Medical [place] HEMATOLOGY MPV 9.2 7.4 - 10.4 08/20 Normal [facility] HEMATOLOGY Platelet 132 133 - 450 08/20 LOW [facility] CHEMISTRY Magnesium 1.4 1.8 - 2.4 08/20 LOW [facility] l [facility] CHEMISTRY Phosphorus 2.8 2.5 - 4.5 08/20 Normal [facility] BLOOD BANK Antibody Negative 08/20 Normal [facility] RESULTS Scrn (08/19/2012 21:20:00) [facility] BLOOD BANK ABO/Rh A POS 08/20 Unknown [facility] RESULTS [facility] CHEMISTRY Lactic Acid 3.6 0.5 - 2.2 08/20 [facility] Center CHEMISTRY Globulin 3.5 2.0 - 4.0 08/20 Normal [facility] CHEMISTRY A/G Ratio 0.9 0.7 - 1.6 08/20 Normal [facility] CHEMISTRY Bili 0.8 0.0 - 1.0 08/20 Normal [facility] CHEMISTRY Albumin Lvl 3.2 3.5 - 5.0 08/20 LOW [facility] CHEMISTRY ALT 38 0 - 65 08/20 Normal [facility] Center CHEMISTRY Total 6.7 6.4 - 8.4 08/20 Normal [facility] CHEMISTRY Alk Phos 113 39 - 136 08/20 Normal [facility] CHEMISTRY Bili Total 1.0 0.2 - 1.3 08/20 Normal [facility] Center CHEMISTRY AST 37 0 - 37 08/20 Normal [facility] CHEMISTRY Bili Direct 0.2 0.0 - 0.3 08/20 Normal [facility] HEMATOLOGY Elliptocyte Slight None Seen 08/[place] *[place]* /2012 Medical (08/19/2012 21:20:00) Ce nter HEMATOLOGY Atypical 0.0 <=0.0 08/20 Normal [facility] Lymphs [facility] Center HEMATOLOGY Toxic Gran Slight None Seen 08/20 [facility] * Medical (08/19/2012 21:20:00) Ce nter HEMATOLOGY Large Plt Slight None Seen 08/20 [facility] * Medical (08/19/2012 21:20:00) Ce nter HEMATOLOGY Neut Vac Slight None Seen 08/20 [facility] Medical (08/19/2012 21:20:00) Ce nter HEMATOLOGY Anisocyte 1+ None Seen 08/20 [facility] * Medical (08/19/2012 21:20:00) Ce nter HEMATOLOGY Tot Cell Ct 200 08/20 NA [facility] HEMATOLOGY Polychrom Slight None Seen 08/20 Normal [facility] (08/19/2012 21:20:00) Mi dicva Center HEMATOLOGY Microcyte 1+ None Seen 08/20 [facility] Medical (08/19/2012 21:20:00) Ce nter HEMATOLOGY Hypochrom Slight None Seen 08/20 Normal [facility] (08/19/2012 21:20:00) Mi dical Center HEMATOLOGY Bands 21.0 0.0 - 11.0 08/20 [facility] HEMATOLOGY INR 1.30 0.85 - 08/20 [place] <sup[place]sup> [place] 1.17 Interpretive Medical Data: Center RECOMMENDED RANGES FOR PROTIME INR:
2.0-3.0 for most medical and surgical thromboemboli c states.
2.5-3.5 for artificial heart valves and recurrent embolism.<br/ >
INR SHOULD BE USED ONLY FOR PATIENTS ON STABLE ANTICOAGULANT THERAPY. HEMATOLOGY PT 16.4 12.0 - 08/20 [facility] [place] 14.7 [facility] HEMATOLOGY PTT 33.2 22.9 - 08/20 Normal <sup>11[place]sup> [place] 35.8 Interpretive Medical Data: [facility] Center Therapeutic Range: 57 - 92 Seconds URINALYSIS UA WBC 6-10 /HPF None Seen 08/19 [facility] *ABN Medical (08/19/2012 18:27:00) Ce nter URINALYSIS UA Sq Epi None Seen Few 08/19 Normal [facility] (08/19/2012 18:27:00) Me dical Center URINALYSIS UA Bacteria Few /HPF None Seen 08/19 Normal [facility]hjinder as (08/19/2012 18:27:00) Me dical Center URINALYSIS UA RBC >100 /HPF 0 - 2 08/19 ABN [facility] Medical (08/19/2012 18:27:00) Ce nter URINALYSIS Micro? Performed 08/19 Normal [facility] (08/19/2012 18:27:00) Mi dical Center URINALYSIS UA Protein 30 mg/dL Negative 08/19 [facility] Medical (08/19/2012 18:27:00) Ce nter URINALYSIS UA Glucose Negative Negative 08/19 Normal [facility] (08/19/2012 18:27:00) Mi dical Center URINALYSIS UA pH 5.5 5.0 - 8.0 08/19 Normal [facility] URINALYSIS UA Bili Negative Negative 08/19 NA [facility] *NA* Medical (08/19/2012 18:27:00) Ce nter URINALYSIS UA Ketones Negative [facility] (08/[facility]2012 18:27:00) Ce nter URINALYSIS UA Color Yellow Yellow 08/19 NA [facility]* Medical (08/19/2012 18:27:00) Ce nter URINALYSIS UA Turbidity Slight Cloudy Clear 08/19 Normal [facility] (08/19/2012 18:27:00) Me dical Center URINALYSIS UA Spec Grav 1.020 <=1.030 08/19 Normal [facility] URINALYSIS UA Nitrite Negative Negative 08/19 Normal [facility] (08/19/2012 18:27:00) Me dical Center URINALYSIS UA Leuk Est Small Negative 08/19 [facility] Medical (08/19/2012 18:27:00) Ce nter URINALYSIS UA Blood Large Negative 08/19 ABN Medical (08/19/2012 18:27:00) Ce nter URINALYSIS UA 0.2 0.1 - 1.0 08/19 Normal [facility] Urobilinogen /[address] [place] [address] Pathology Reports No Data Provided for This Section Diagnostic Reports Report Value Date Source Chest 1view DX SINGLE VIEW CHEST X-RAY. 05/02/2019 8:16 AM CDT 05/02/[address] [facility] INDICATION: Coughing - coughing TECHNIQUE: Single frontal view of the chest was performed. COMPARISON: None FINDINGS: The lungs are ana r without consolidation. There are no effusions. No evidence of pneumothorax. The cardiomediastinal silhouette is within normal. Osseous structures show no significant finding. The visualized abdomen is unremarkable. IMPRESSION: No acute cardiopulmonary process. Consultation Notes No Data Provided for This Section Discharge Summaries No Data Provided for This Section History and Physicals No Data Provided for This Section Vital Signs Vital Sign Value Date Comments Source Height 182.88 cm 07/10/2019 [facility] Weight 101.364 07/10/2019 [facility] BMI Calculated 30.31 07/10/2019 [facility] Height 182.88 cm 05/11/2019 [facility] Weight 101.364 05/11/2019 [facility] BMI Calculated 30.31 05/11/2019 [facility] Temperature Oral (F) 97.7 F 05/03/2019 [facility] Heart [facility] 54 [facility] 18 05/03/2019 [facility] C ity Systolic (mm Hg) 112 05/03/2019 [facility] [place] Diastolic (mm Hg) 59 05/03/2019 [facility] Temperature Oral (F) 98.3 F 05/03/2019 [facility] Heart Rate 55 05/03/2019 [facility] Respitory Rate 17 05/03/2019 [facility] C ity Systolic (mm Hg) 99 05/03/2019 [facility] [place] Diastolic (mm Hg) 50 05/03/2019 [facility] Temperature Oral (F) 98.2 F 05/03/2019 [facility] Heart Rate 62 05/03/2019 [facility] Respitory Rate 16 05/03/2019 [facility] C ity Systolic (mm Hg) 149 05/03/2019 [facility] [place] Diastolic (mm Hg) 96 05/03/2019 [facility] Height 182.88 cm 05/01/2019 [facility] Weight 102.9 [facility] Calculated 30.77 [facility]2019 [facility] Height 182.88 cm [facility]2019 [facility] Weight 102.273 04/11[facility]2019 [facility] BMI Calculated 30.58 04[facility]11[facility]2019 [facility] Systolic (mm Hg) 162 04/06/[facility] Diastolic (mm Hg) 93 04/06/2019 [facility] Heart Rate 62 04/06/2019 [facility] Height 182.88 cm 04/06/2019 [facility] Weight 104.091 04/06/2019 [facility] BMI Calculated 31.12 04/06/2019 [facility] Diastolic (mm Hg) 64 08/22/2012 [facility] Systolic (mm Hg) 124 08/22/2012 [facility] Heart Rate 62 08/22/2012 [facility] Respitory Rate 18 08/22/2012 [facility] Temperature Oral (F) 98.0 F 08/22/2012 [facility] Diastolic (mm Hg) 65 08/22/2012 [facility] Systolic (mm Hg) 108 08/22/2012 [facility] Respitory Rate 18 08/22/2012 [facility] Temperature Oral (F) 97.7 F 08/22/2012 [facility] Heart Rate 51 08/22/2012 [facility] Diastolic (mm Hg) 52 08/22/2012 [facility] Respitory Rate 18 08/22/2012 [facility] Center Systolic (mm Hg) 97 08/22/2012 [facility] Heart Rate 59 08/22/2012 [facility] Temperature Oral (F) 97.8 F 08/22/2012 [facility] Height 189.23 cm 08/20/2012 [facility] Weight 153.636 08/20/2012 [facility] Weight 152.273 08/19/2012 [facility] Height 187.96 cm 08/19/2012 [facility] Encounters Location Location Encounter Encounter Reason Attending ADM TX Stat us Source Details Type Number For Provider Date Date Visit [facility] Inpatient [id number] KIDNEY LINDA 08/19 08/22 Active [facility] YAQUELIN /2012 [facility] Outpatient [id number] 04/06 Active [facility] Primomo /2020 [facility] Outpatient [id number] 04/06 [facility] /2020 /2020 [facility] Surgery [facility] Bedded [id number] Jim 04/10 04/10 Patrick Outpatient [facility] /2020 /2020 Jhonny ramonel [facility] Inpatient [id number] Jim 05/01 05/03 Patrick [facility] /2020 /2020 [facility] Outpatient [id number] Jim 05/10 Active [facility] Primomo /2020 [facility] Outpatient [id number] Jim 05/10 05/11 [facility] /2019 /2020 [facility] Surgery Outpatient [id number] GATE PERSON 06/15 Beliai juanita [facility] VISIT /2019 [facility] Outpatient [id number] GATE PERSON 06/15 06/16 [facility]icians VISIT /2019 [facility] l [facility] Surgery Outpatient [id number] Jim 07/09 Active [facility] Primomo /2020 [facility] Outpatient [id number] Jim 07/09 07/10 [facility] /2020 /2020 [facility] Surgery Between [id number] 08/06 08/07 Physicians Visit /2019 [facility] Surgery Between [id number] 08/06 08/07 Physicians Visit /2019 [facility] Surgery Procedures Procedure Code Date Perfomer Comments Source Cystoscopy of ureter [id number] [facility] Gastric bypass [id number] [facility] Right Retrograde [facility] pyelogram with Medical Abtracting Uterry [place] [facility] Stent placement [id number] [facility] with [facility] Cystoscopy of ureter [id number] [facility] edical Group,[facility] Gastric bypass [id number] Medical operation Group,[facility] Right Retrograde [id number] Medic al pyelogram with Group, [facility] Right Stent placement [id number] Medical with [employer] Split Group,[facility] Arthroplasty of [id number] torn meniscus Med ical knee<sup>1</sup> Group,[facility] Cholecystectomy [id number] Medica l Group,[facility] Partial gastrectomy [id number] Me dical Group Revision of [id number] Medical gastrojejunostomy Group Small bowel resection [id number] Medical Group Assessment and Plan Assessment and Plan Date Source Extracted from:Title: Surgery Progress Note 05/04/[address] [facility] Author: Niko Huston (Fellow) DO Date: 05/03/19 43Ms/p laparoscopic revision of gastrojejunostomy with partial gastrectomy, intraoperative endoscopy ; POD1 - advance to Bariatric full liquids as tolerated - continue IV hydration - convert to PO pain medication regimen: Tylenol and PRN Tr amadol - Scopolamine + Zofran, Phenergan PRN nausea - pertinent home meds resumed - continue OOB, ambulation and incentive spirometry - VTE ppx: Lovenox, SCDs Anticipate discharge to home later today Discussed with attending, Addendum by Jim Maurer MD on 05/03/2019 11:18 CDT No events. H/H trending down from 10.5 t o 8.3. Patient with hypotension that has resolved. Denies orthostasis. Ambulating well. Tolerating diet well. Pain well controlled. Abd soft, ND, appr TTP. Unclea r etiology of anemia. Possible chronic b eing manifested by IV hydration . Plan continue to monito and recheck H/H. Cont protocol. Plan of Care No Data Provided for This Section Social History Social History Date Source Social History TypeResponse 07/10/2019 [facility] Smoking Status Never smoker; Previous treatment: None; Exposure to Tobacco Smoke None; Cigarette Smoking Last 365 Days No; Reg Smoking Cessation Counseling No entered on: 07/10/19 Social History TypeResponse 05/02/[address] [facility] Smoking Status Never smoker; Previous treatment: None; Exposure to Tobacco Smoke None; Cigarette Smoking Last 365 Days No; Reg Smoking Cessation Counseling No entered on: 05/02/19 Family History No Data Provided for This Section Advance Directives No Data Provided for This Section Functional Status No Data Provided for This Section
[2019-08-18 03:31] LABS: Blood Gas Oxyhemoglobin 95.9 % (94-97); Blood O2 Saturation 97.8 % (92-98.5)
--- NOTE | 2019-08-18 04:10 | EDPHYS ---
Physician Documentation [facility] Name: Rhett Ayers Age: 43 yrs Sex: Male : 1975 Arrival Date: 08/17/2019 Time: 19:39 Bed 25 Private MD: ED Physician Xavier Sigala HPI: 08/17 00:33 This 43 yrs old Male presents to ER via Ambulatory with complaints of Low cp Blood Level. 00:33 low serum bicarb. patient reports having bloodwork today that returned with low serum cp bicarb. Patient was referred to ED for evaluation. Patient c/o fatigue. Onset: The symptoms/episode began/occurred at an unknown time. Historical: - Allergies: 08/16 19:57 No Known Allergies; dm5 - PMHx: 19:57 Diabetes - NIDDM; Hypertension; Orthostatic hypotension; PUD; compressed discs; dm5 - Immunization history:: Adult Immunizations up to date. - Social history:: Smoking status: Patient denies any tobacco usage or history of. ROS: 08/17 00:40 Constitutional: Positive for fatigue, Negative for body aches, chills, fever, poor PO cp intake. 00:40 Eyes: Negative for injury, pain, redness, and discharge. cp 00:40 ENT: Negative for ear pain, sore throat, difficulty swallowing, difficulty handling secretions. 00:40 Cardiovascular: Negative for chest pain, edema, palpitations. 00:40 Respiratory: Negative for cough, shortness of breath, wheezing. 00:40 Abdomen/GI: Positive for constipation, Negative for abdominal pain, nausea, vomiting, and diarrhea, black/tarry stool, rectal bleeding. 00:40 : Negative for urinary symptoms, difficulty urinating. 00:40 Neuro: Negative for altered mental status, headache, weakness. 00:40 All other systems are negative. Exam: 00:45 Constitutional: The patient appears in no acute distress, alert, awake, cp non-diaphoretic, non-toxic, well developed, well nourished. 00:45 Head/Face: Normocephalic, atraumatic. cp 00:45 Eyes: Periorbital structures: appear normal, Conjunctiva: normal, no exudate, no injection, Sclera: no appreciated abnormality, Lids and lashes: appear normal, bilaterally. 00:45 ENT: External ear(s): are unremarkable, Nose: is normal, Mouth: Lips: moist, Oral mucosa: moist, Posterior pharynx: is normal, airway is patent. 00:45 Neck: ROM/movement: is normal, is supple, without pain, no range of motions limitations. 00:45 Chest/axilla: Inspection: normal. 00:45 Cardiovascular: Rate: normal, Rhythm: regular, Edema: is not appreciated, JVD: is not appreciated. 00:45 Respiratory: the patient does not display signs of respiratory distress, Respirations: normal, no use of accessory muscles, no retractions, labored breathing, is not present, Breath sounds: are clear throughout, no decreased breath sounds. 00:45 Abdomen/GI: Inspection: abdomen appears normal, Bowel sounds: active, all quadrants, Palpation: abdomen is soft and non-tender, in all quadrants. 00:45 Neuro: Orientation: to person, place \T\ time. Mentation: is normal, Motor: moves all fours, strength is normal, Sensation: is normal. 01:00 ECG was reviewed by the Attending Physician. Vital Signs: 08/16 19:54 BP 134 / 85; Pulse 72; Resp 18; Temp 97.6; Pulse Ox 100% on R/A; Weight 104.33 kg (R); dm5 Height 6 ft. 1 in. (185.42 cm) (R); Pain 7/10; 21:50 BP 169 / 98; Pulse 68; Resp 18; Temp 97.6; dm5 08/17 01:00 BP 119 / 75; Pulse 58; Resp 18; Pulse Ox 100% ; vc 03:00 BP 120 / 83; Pulse 53; Resp 18; Pulse Ox 100% ; vc 08/16 19:54 Body Mass Index 30.34 (104.33 kg, 185.42 cm) dm5 08/16 19:54 chronic back pain dm5 MDM: 08/17 00:40 Patient medically screened. cp 01:00 Differential Diagnosis electrolyte abnormality, dehydration, renal failure, cp gastroenteritis, anemia. 03:45 Data reviewed: vital signs, nurses notes, lab test result(s), EKG, I have discussed the cp patient's presentation/case with the attending Emergency Department Physician;. 03:45 Test interpretation: by ED physician or midlevel provider: ECG. cp 03:59 Physician consultation: January Rollins MD was contacted at 03:55, regarding consult, cp patient's condition, and will see patient later today, would like admission per Dr. Yonathan Romano. 04:06 Physician consultation: Yonathan Romano was called at 04:07, was contacted at 04:07, cp regarding admission, to the telemetry unit. patient's condition. 08/17 00:30 Order name: Basic Metabolic Panel; Complete Time: 02:00 cp 08/17 02:01 Interpretation: Normal except: CL 120; CO2 13; GLUC 148; BUN 33; CRE 1.63; GFR 46. cp 08/17 00:30 Order name: CBC with Diff; Complete Time: 02:00 cp 08/17 02:01 Interpretation: RBC 3.35; HGB 10.9; HCT 33.5. cp 08/17 00:30 Order name: Hepatic Function; Complete Time: 02:00 cp 08/17 00:30 Order name: Lipase; Complete Time: 02:00 cp 08/17 00:30 Order name: PT-INR; Complete Time: 02:00 cp 08/17 00:30 Order name: Ptt, Activated; Complete Time: 02:00 cp 08/17 00:30 Order name: IV Saline Lock; Complete Time: 01:30 cp 08/17 00:30 Order name: Labs collected and sent; Complete Time: 01:30 cp 08/17 02:35 Order name: ABG; Complete Time: 03:40 cp EC:00 Rate is 64 beats/min. Rhythm is regular. GA interval is normal. QRS interval is normal. cp QT interval is normal. T waves are Inverted in lead III. Interpreted by me. Reviewed by me. Administered Medications: 02:40 Drug: [place] (7.5 mg-325 mg) 1 tabs Route: PO; vc 04:38 Not Given (order to not give fluids per JOI Carrasco): NS 0.9% 1000 ml IV at 1 bolus Per dm5 protocol; 1000 mL bolus Disposition: 06:47 Co-signature as Attending Physician, Xavier Sigala MD. [email or web address] Disposition: 08/18/19 04:09 Hospitalization ordered by Yonathan Romano for Inpatient Admission. Preliminary diagnosis are Acidosis - metabolic, Chronic kidney disease, unspecified, Anemia in chronic diseases classified elsewhere. - Bed requested for Telemetry/MedSurg (Inpatient). - Status is Inpatient Admission. dm5 - Condition is Stable. - Problem is new. - Symptoms are unchanged. Signatures: Dispatcher [employer] [facility] Viktoria Elmore RN MEGHANN dm5 Jose Carlos Carrasco PA PA cp Garcia, Cindy, RN RN cg Tangela Joseph RN RN vc Holmes, Maurice, MD MD [email or web address] Corrections: (The following items were deleted from the chart) 03:34 02:19 Arterial Blood Gas+RC.LAB.BRZ ordered. [facility] 04:24 04:09 Hospitalization Ordered by Yonathan Romano for Inpatient Admission. Preliminary dm5 diagnosis is Acidosis - metabolic; Chronic kidney disease, unspecified; Anemia in chronic diseases classified elsewhere. Bed requested for Telemetry/MedSurg (Inpatient). Status is Inpatient Admission. Condition is Stable. Problem is new. Symptoms are unchanged. cp 05:13 04:24 08/18/2019 04:09 Hospitalization Ordered by Yonathan Romano for Inpatient cg Admission. Preliminary diagnosis is Acidosis - metabolic; Chronic kidney disease, unspecified; Anemia in chronic diseases classified elsewhere. Bed requested for [facility] ER HOLD. Status is Inpatient Admission. Condition is Stable. Problem is new. Symptoms are unchanged. dm5 05:22 05:13 08/18/2019 04:09 Hospitalization Ordered by [facility] for Inpatient cg Admission. Preliminary diagnosis is Acidosis - metabolic; Chronic kidney disease, unspecified; Anemia in chronic diseases classified elsewhere. Bed requested for Telemetry/MedSurg (Inpatient). Status is Inpatient Admission. Condition is Stable. Problem is new. Symptoms are unchanged. 06:02 05:22 08/18/2019 04:09 Hospitalization Ordered by Yonathan Ibarra for Inpatient dm5 Admission. Preliminary diagnosis is Acidosis - metabolic; Chronic kidney disease, unspecified; Anemia in chronic diseases classified elsewhere. Bed requested for Telemetry/MedSurg (Inpatient). Status is Inpatient Admission. Condition is Stable. Problem is new. Symptoms are unchanged. 06:10 06:02 08/18/2019 04:09 Hospitalization Ordered by [facility] for Inpatient dm5 Admission. Preliminary diagnosis is Acidosis - metabolic; Chronic kidney disease, unspecified; Anemia in chronic diseases classified elsewhere. Bed requested for Telemetry/MedSurg (Inpatient). Status is Inpatient Admission. Condition is Stable. Problem is new. Symptoms are unchanged. dm5
--- NOTE | 2019-08-18 04:10 | ER ---
Nurse's Notes [facility] Name: Rhett Ayers Age: 43 yrs Sex: Male : 1975 Arrival Date: 08/17/2019 Time: 19:39 Bed 25 Private MD: Diagnosis: Acidosis-metabolic;Chronic kidney disease, unspecified;Anemia in chronic diseases classified elsewhere Presentation: 08/16 19:54 Chief complaint: Patient states: fatigued, seen by analytics director. Told that bicarb was dm5 low. Doesn't feel right. Coronavirus screen: Patient denies a cough. Patient denies shortness of breath or difficulty breathing. Patient denies measured and/or subjective temperature greater than 100.4F prior to today's visit. Patient denies travel on a cruise ship or to a country the [facility] currently lists as an affected area. Patient denies contact with known and/or suspected case of COVID-19. Ebola Screen: Patient negative for fever greater than or equal to 101.5 degrees Fahrenheit, and additional compatible Ebola Virus Disease symptoms Patient denies exposure to infectious person. Patient denies travel to an Ebola-affected area in the 21 days before illness onset. No symptoms or risks identified at this time. Initial Sepsis Screen: Does the patient meet any 2 criteria? No. Patient's initial sepsis screen is negative. Does the patient have a suspected source of infection? No. Patient's initial sepsis screen is negative. Risk Assessment: Do you want to hurt yourself or someone else? Patient reports no desire to harm self or others. Onset of symptoms was August 17, 2019. 19:54 Method Of Arrival: Ambulatory dm5 19:54 Acuity: SANTIAGO 3 dm5 Triage Assessment: 23:35 General: Appears in no apparent distress. uncomfortable, Behavior is calm, cooperative. dm5 Pain: Complains of pain in back Pain currently is 7 out of 10 on a pain scale. Pain began years ago. Neuro: Level of Consciousness is awake, alert, obeys commands, Oriented to person, place, time. Historical: - Allergies: 19:57 No Known Allergies; dm5 - PMHx: 19:57 Diabetes - NIDDM; Hypertension; Orthostatic hypotension; PUD; compressed discs; dm5 - Immunization history:: Adult Immunizations up to date. - Social history:: Smoking status: Patient denies any tobacco usage or history of. Screenin/10 00:30 Abuse screen: Denies threats or abuse. Nutritional screening: No deficits noted. vc Tuberculosis screening: No symptoms or risk factors identified. Fall Risk None identified. Assessment: 00:30 General: Appears in no apparent distress. comfortable, Behavior is calm, cooperative, vc appropriate for age. Pain: Complains of pain in back. Neuro: Level of Consciousness is awake, alert, obeys commands, Oriented to person, place, time, situation, Appropriate for age. Cardiovascular: Capillary refill < 3 seconds Patient's skin is warm and dry. Respiratory: Airway is patent Respiratory effort is even, unlabored, Respiratory pattern is regular, symmetrical. GI: No signs and/or symptoms were reported involving the gastrointestinal system. : No signs and/or symptoms were reported regarding the genitourinary system. Derm: Skin is intact, is healthy with good turgor, Skin temperature is warm. 01:30 Reassessment: Patient appears in no apparent distress at this time. Patient and/or vc family updated on plan of care and expected duration. Pain level reassessed. Patient is alert, oriented x 3, equal unlabored respirations, skin warm/dry/pink. 02:30 Reassessment: Patient appears in no apparent distress at this time. Patient and/or vc family updated on plan of care and expected duration. Pain level reassessed. Patient is alert, oriented x 3, equal unlabored respirations, skin warm/dry/pink. 03:48 Reassessment: Patient appears in no apparent distress at this time. Patient and/or vc family updated on plan of care and expected duration. Pain level reassessed. Patient is alert, oriented x 3, equal unlabored respirations, skin warm/dry/pink. Vital Signs: 08/16 19:54 BP 134 / 85; Pulse 72; Resp 18; Temp 97.6; Pulse Ox 100% on R/A; Weight 104.33 kg (R); dm5 Height 6 ft. 1 in. (185.42 cm) (R); Pain 08/17; 21:50 BP 169 / 98; Pulse 68; Resp 18; Temp 97.6; dm5 08/17 01:00 BP 119 / 75; Pulse 58; Resp 18; Pulse Ox 100% ; vc 03:00 BP 120 / 83; Pulse 53; Resp 18; Pulse Ox 100% ; vc 08/16 19:54 Body Mass Index 30.34 (104.33 kg, 185.42 cm) dm5 08/16 19:54 chronic back pain 5 ED Course: 19:39 Patient arrived in ED. cl3 19:56 Triage completed. dm5 08/17 00:13 Jose Carlos Carrasco PA is PHCP. cp 00:13 Xavier Sigala MD is Attending Physician. cp 00:30 Arm band placed on right wrist. vc 00:30 Patient has correct armband on for positive identification. Bed in low position. Call vc light in reach. Side rails up X2. Pulse ox on. NIBP on. 00:53 Tangela Joseph RN is Primary Nurse. vc 04:00 Report received from MEGHANN Honeycutt. dm5 04:07 Yonathan Romano is Hospitalizing Provider. cp 06:03 PHCP role handed off by Jose Carlos Carrasco PA dm5 06:03 Primary Nurse role handed off by Tangela Joseph RN dm5 06:10 Viktoria Elmore RN is Primary Nurse. dm5 07:47 No provider procedures requiring assistance completed. Patient admitted, IV remains in dm5 place. Administered Medications: 02:40 Drug: [place] (7.5 mg-325 mg) 1 tabs Route: PO; vc 04:38 Not Given (order to not give fluids per JOI Carrasco): NS 0.9% 1000 ml IV at 1 bolus Per 5 protocol; 1000 mL bolus Outcome: 04:09 Decision to Hospitalize by Provider. cp 06:02 Patient left the ED. dm5 06:10 Patient left the ED. dm5 07:48 Admitted to Tele accompanied by nurse, via wheelchair, with chart, Report called to [facility] Oleg Ge RN 07:48 Condition: stable 07:48 Discharge instructions given to patient, Instructed on the need for admit. Signatures: Viktoria Elmore, RN RN [facility] Jose Carlos Carrasco PA PA Marya Mcintosh cl3 Tangela Joseph RN RN vc
[2019-08-18] MEDS ORDERED: NACHLORIDE 0.45% 1,000 ML with NA BICARB 8.4% 50 MEQ IV SCH ×4 (05:00→08:00)
[2019-08-18] MEDS ORDERED: ONDANSETRON 4 MG/2 ML VIAL IV PRN (05:00)
[2019-08-18 06:15] VITALS: O2SAT 100
[2019-08-18] MEDS: INSULIN -REGULAR HUMAN 50 UNIT/0.5 ML ML SQ SCH ×4 (07:30→21:00)
--- NOTE | 2019-08-18 08:31 | P.HP ---
Certification for Inpatient Patient admitted to: Observation With expected LOS: <2 Midnights Practitioner: I am a practitioner with admitting privileges, knowledge of patient current condition, hospital course, and medical plan of care. Services: Services provided to patient in accordance with Admission requirements found in Title 42 Section 412.3 of the Code of Federal Regulations Patient History Date of Service: 08/18/19 Reason for admission: Low on blood bicarb level History of Present Illness: 43-year-old gentleman with a history of gastric bypass surgery, chronic iron d eficiency, prior history of peptic ulcer disease was directed to the emergency department due to low bicarb level in his blood. Patient reports previous intermittent diarrhea, last loose bowel movement was about a couple of weeks ago. He denied any nausea or vomiting. He denied any polyuria or decreased urine output. He was previously admitted 4 months ago for acute renal failure which resolved with IV hydration. Patient denies any fever or cough. He has chronic back pain and is on multiple pain medications. ABG showed pH of 7.2. Patient is placed under observation for further management. Allergies No Known Allergies Allergy (Verified 08/02/19 10:37) Home Medications: Cholecalciferol (Vitamin D3) [Vitamin D3] 2,000 unit PO BID 04/02/19 Cyanocobalamin [Vitamin B-12*] 1,000 mcg PO DAILY 04/02/19 Gabapentin [Neurontin] 800 mg PO Q8H 04/02/19 Metformin HCl 1,000 mg PO BID 04/02/19 Multivitamin [Daily Multiple Vitamin] 1 each PO DAILY 04/02/19 Pantoprazole [Protonix Tab*] 40 mg PO DAILY 04/02/19 Sucralfate [Carafate*] 1 gm PO QID 04/02/19 Tizanidine HCl [Zanaflex] 6 mg PO Q6H 04/02/19 - Past Medical/Surgical History Diabetic: No -: Chronic back pain -: DM II age 22 -: Gastric ulcer -: Anemia -: HTN -: R knee surgery -: Gastric bypass -: Phimosis skin graft -: Circumcision -: Jackie -: rt knee surg - Family History Mother -: Heart disease, Diabetes Notes: of cirrrosis of liver Father -: Diabetes Brother -: Hypertension, Diabetes Notes: at 39yr old from "natural causes" - Social History Alcohol use: No CD- Drugs: No Caffeine use: Yes Review of Systems Other: Except as documented, all other systems reviewed and negative. Physical Examination - Vital Signs Temperature: 97.6 F Blood Pressure: 120/83 Pulse: 53 Respirations: 18 - Physical Exam General: Alert, In no apparent distress, Oriented x3 HEENT: Mucous membr. moist/pink, Sclerae nonicteric Neck: Supple, JVD not distended Respiratory: Clear to auscultation bilaterally, Normal air movement Cardiovascular: No edema, Regular rate/rhythm, Normal S1 S2 Capillary refill: <2 Seconds Gastrointestinal: Normal bowel sounds, Soft and benign, Non-distended, No tenderness Musculoskeletal: No swelling, No erythema Integumentary: No rashes Neurological: Normal strength at 5/5 x4 extr, Cranial nerves 3-12 intact - Studies Laboratory Data (last 24 hrs) 08/18/19 01:01: PT 10.9, INR 0.92, APTT 30.6 08/18/19 01:01: WBC 5.2, Hgb 10.9 L, Hct 33.5 L, Plt Count 232 08/18/19 01:01: Sodium 141, Potassium 4.4, BUN 33 H, Creatinine 1.63 H, Glucose 148 H, Total Bilirubin 0.3, AST 9 L, ALT 22, Alkaline Phosphatase 97, Lipase 78 Assessment and Plan - Problems (Diagnosis) (1) Metabolic acidosis Current Visit: Yes Status: Acute (2) MIGUEL (acute kidney injury) Current Visit: No Status: Acute (3) Metabolic encephalopathy Current Visit: Yes Status: Acute (4) Iron deficiency Current Visit: Yes Status: Acute (5) History of Rahul-en-Y gastric bypass Current Visit: Yes Status: Acute (6) DM type 2 (diabetes mellitus, type 2) Current Visit: No Status: Chronic Qualifiers: Diabetes mellitus complication status: with kidney complications Diabetes mellitus complication detail: with chronic kidney disease Chronic kidney disease stage: stage 3 (moderate) (7) Chronic pain syndrome Current Visit: Yes Status: Acute - Plan Admit to the medical floor. Start IV hydration with bicarb drip. Consult to nephrology. Continue home pain medications. Monitor blood chemistry. - Advance Directives Does patient have a Living Will: No Does patient have a Durable POA for Healthcare: Yes
[2019-08-18] MEDS: HEPARIN 5000 UNIT/ML 1 ML VIAL SQ SCH ×3 (10:17→23:50)
[2019-08-18] MEDS: HYDROCODONE/APAP 7.5/325 MG TAB PO PRN ×2 (12:50→20:16)
[2019-08-18 12:58] VITALS: BMI 30.3
--- NOTE | 2019-08-18 15:10 | P.CNS ---
Date of Consult: 08/18/19 Reason for Consult: MIGUEL with acidosis Requesting Physician: david pittman Chief Complaint: Low on blood bicarb level History of Present Illness: 43 yo HM DM sent to the ER by H/O for acidosis in the setting of MIGUEL with associated malaise of unclear etiology. Reports long standing fatigue and weakness with poor endurance. Recently received IV iron. No NSAIDs. No difficulty with urination. 43-year-old gentleman with a history of gastric bypass surgery, chronic iron deficiency, prior history of peptic ulcer disease was directed to the emergency department due to low bicarb level in his blood. Patient reports previous intermittent diarrhea, last loose bowel movement was about a couple of weeks ago. He denied any nausea or vomiting. He denied any polyuria or decreased urine output. He was previously admitted 4 months ago for acute renal failure which resolved with IV hydration. Patient denies any fever or cough. He has chronic back pain and is on multiple pain medications. ABG showed pH of 7.2. Patient is placed under observation for further management. Allergies No Known Allergies Allergy (Verified 08/02/19 10:37) Home medications list reviewed: Yes Home Medications: Cholecalciferol (Vitamin D3) [Vitamin D3] 2,000 unit PO BID 04/02/19 Cyanocobalamin [Vitamin B-12*] 1,000 mcg PO DAILY 04/02/19 Gabapentin [Neurontin] 800 mg PO Q8H 04/02/19 Metformin HCl 1,000 mg PO BID 04/02/19 Multivitamin [Daily Multiple Vitamin] 1 each PO DAILY 04/02/19 Pantoprazole [Protonix Tab*] 40 mg PO DAILY 04/02/19 Tizanidine HCl [Zanaflex] 6 mg PO Q6H 04/02/19 Hydrocodone 7.5/APAP 325 [[place] 7.5/325 mg] 1 tab PO Q6H PRN 08/18/19 Lisinopril [Zestril] 20 mg PO DAILY 08/18/19 Naloxegol Oxalate [Movantik] 25 mg PO DAILY 08/18/19 - Past Medical/Surgical History Diabetic: No -: Chronic back pain -: DM II age 22 -: Gastric ulcer -: Anemia -: HTN -: R knee surgery -: Gastric bypass -: Phimosis skin graft -: Circumcision -: Jackie -: rt knee surg - Family History Mother Medical History: Heart disease, Diabetes Notes: of cirrrosis of liver Father Medical History: Diabetes Brother Medical History: Hypertension, Diabetes Notes: at 39yr old from "natural causes" - Social History Alcohol use: No CD- Drugs: No Caffeine use: Yes Place of Residence: Home Review of Systems 10-point ROS is otherwise unremarkable General: Weakness, Malaise Gastrointestinal: Nausea, Abdominal Pain Neurological: Weakness Physical Examination Temp Pulse Resp BP Pulse Ox 98.6 F 67 18 168/70 H 98 08/18/19 12:00 08/18/19 12:00 08/18/19 12:00 08/18/19 12:00 08/18/19 12:00 General: In no apparent distress, Oriented x3, Cooperative HEENT: Atraumatic Neck: Supple Respiratory: Clear to auscultation bilaterally Cardiovascular: No edema, Regular rate/rhythm Gastrointestinal: Soft and benign, Non-distended Musculoskeletal: No clubbing, No contractures Integumentary: No rashes, No cyanosis Neurological: Normal speech Laboratory Data (last 24 hrs) 08/18/19 01:01: PT 10.9, INR 0.92, APTT 30.6 08/18/19 01:01: WBC 5.2, Hgb 10.9 L, Hct 33.5 L, Plt Count 232 08/18/19 01:01: Sodium 141, Potassium 4.4, BUN 33 H, Creatinine 1.63 H, Glucose 148 H, Total Bilirubin 0.3, AST 9 L, ALT 22, Alkaline Phosphatase 97, Lipase 78 Conclusions/Impression: A/ MIGUEL of unclear etiology but may be due to hypovolemia. Proteinuria HTN DM II with CKD Anemia in chronic illness Iron deficiency Hx of chronic gastric ulcer. Hx gastric bypass. P/ Continue current POC and Medications. Continue IVF. Give a dose of IV iron in the am. Start Sucralfate. Start Vitamin C. No NSAIDs. AM labs. Daily weight. Thank you kindly for the consultation.
[2019-08-18] MEDS: GABAPENTIN 400 MG CAP PO SCH ×2 (16:40→23:50)
[2019-08-18] MEDS: TIZANIDINE 4 MG TABLET PO SCH ×2 (17:02→23:50)
[2019-08-18] MEDS: SODIUM BICARB 325 MG TAB PO SCH (20:15)
[2019-08-18] MEDS: Ringers Lactate 1,000 ML IV SCH (20:16)
[2019-08-18 21:17] LABS: Potassium 4.5 mmol/L (3.5-5.1)
[2019-08-18] MEDS: ASCORBIC ACID 500 MG TABLET PO SCH (21:54)
[2019-08-18] MEDS: SUCRALFATE 1 GM TABLET PO SCH (21:54)
[2019-08-19] MEDS: HYDROCODONE/APAP 7.5/325 MG TAB PO PRN ×3 (04:36→17:11)
[2019-08-19] MEDS: TIZANIDINE 4 MG TABLET PO SCH ×3 (05:14→17:48)
[2019-08-19] MEDS: Ringers Lactate 1,000 ML IV SCH ×2 (05:15→17:13)
[2019-08-19 05:31] LABS: Urine Appearance CLEAR; Urine Bilirubin NEGATIVE (NEG); Urine Blood NEGATIVE (NEG); Urine Color YELLOW; Urine Glucose NEGATIVE (NEG); Urine Protein NEGATIVE (NEG); Urine Urobilinogen 0.2 mg/dL (0.2-1.0)
[2019-08-19 06:06] LABS: Magnesium 1.6 mg/dL (1.8-2.4); Phosphorus 2.8 mg/dL (2.5-4.9); Uric Acid 5.3 mg/dL (3.5-7.2)
[2019-08-19 06:36] LABS: Basophils % 0.4 % (0-1.3); Hematocrit 28.6 % (39.6-49.0); Lymphocytes % 32.9 % (15.3-44.8); MPV 8.8 fL (7.6-11.3); RBC Red Blood Cell Count 2.89 M/uL (4.33-5.43)
[2019-08-19] MEDS: INSULIN -REGULAR HUMAN 50 UNIT/0.5 ML ML SQ SCH ×4 (07:30→21:00)
[2019-08-19] MEDS ORDERED: HYDROCODONE/APAP 7.5/325 MG TAB PO PRN (07:32)
[2019-08-19 07:36] LABS: Urine Bacteria >50 /HPF (NONE SEEN); Urine Culture Reflex Order REFLEXED; Urine RBC <5 /HPF (NONE SEEN)
[2019-08-19] MEDS ORDERED: HOME MED 1 EA UNK (Gabapentin [Neurontin] 800 MG) PO SCH (07:45)
[2019-08-19] MEDS ORDERED: TIZANIDINE HCL 6 MG PO SCH (07:45)
[2019-08-19] MEDS: ASCORBIC ACID 500 MG TABLET PO SCH ×2 (08:38→20:09)
[2019-08-19] MEDS: SODIUM BICARB 325 MG TAB PO SCH ×3 (08:39→20:09)
[2019-08-19] MEDS: GABAPENTIN 400 MG CAP PO SCH ×2 (08:39→17:48)
[2019-08-19] MEDS: SUCRALFATE 1 GM TABLET PO SCH ×4 (08:39→20:09)
[2019-08-19] MEDS: HEPARIN 5000 UNIT/ML 1 ML VIAL SQ SCH ×2 (08:42→17:47)
--- NOTE | 2019-08-19 08:52 | P.DS ---
Admission Date: 08/18/19 Discharge Date: 08/19/19 Disposition: ROUTINE DISCHARGE Reason for Admission: Low on blood bicarb level - Problems (1) Metabolic acidosis Current Visit: Yes Status: Acute (2) MIGUEL (acute kidney injury) Current Visit: No Status: Acute (3) Metabolic encephalopathy Current Visit: Yes Status: Acute (4) Iron deficiency Current Visit: Yes Status: Acute (5) History of Rahul-en-Y gastric bypass Current Visit: Yes Status: Acute (6) DM type 2 (diabetes mellitus, type 2) Current Visit: No Status: Chronic Qualifiers: Diabetes mellitus complication status: with kidney complications Diabetes mellitus complication detail: with chronic kidney disease Chronic kidney disease stage: stage 3 (moderate) (7) Chronic pain syndrome Current Visit: Yes Status: Acute Brief History of Present Illness: 43-year-old gentleman with a history of gastric bypass surgery, chronic iron deficiency, prior history of peptic ulcer disease was directed to the emergency department due to low bicarb level in his blood. Patient reports previous intermittent diarrhea, last loose bowel movement was about a couple of weeks ago. He denied any nausea or vomiting. He denied any polyuria or decreased urine output. He was previously admitted 4 months ago for acute renal failure which resolved with IV hydration. Patient denied any fever or cough. He has chronic back pain and is on multiple pain medications. ABG showed pH of 7.2. Patient was placed under observation for further management. Hospital Course: Patient admitted to the medical floor and hydrated with IV fluids and bicarb drip. Nephrology was consulted, patient was seen by Dr. Ferguson. IV fluid adjusted to ringers lactate and patient placed on oral bicarb replacement. Acute renal failure resolved with IV hydration. Metabolic acidosis also got resolved. I suspect GI bicarb loss as the cause of the metabolic acidosis. Patient also given a dose of IV iron infusion during the hospital stay and placed on vitamin-C. Patient report feeling better. He is deemed clinically stable for discharge`. Vital Signs/Physical Exam: Temp Pulse Resp BP Pulse Ox 97.9 F 54 20 114/55 L 96 08/19/19 04:00 08/19/19 04:00 08/19/19 05:36 08/19/19 04:00 08/19/19 05:36 General: Alert, In no apparent distress, Oriented x3 HEENT: Mucous membr. moist/pink, Sclerae nonicteric Respiratory: Clear to auscultation bilaterally, Normal air movement Cardiovascular: No edema, Regular rate/rhythm, Normal S1 S2 Gastrointestinal: Normal bowel sounds, Soft and benign, No tenderness Musculoskeletal: No swelling, No erythema Neurological: Normal strength at 5/5 x4 extr Laboratory Data at Discharge: WBC 6.0 K/uL (4.3-10.9) D 08/19/19 05:26 Hgb 9.5 g/dL (13.6-17.9) L 08/19/19 05:26 Hct 28.6 % (39.6-49.0) L 08/19/19 05:26 Plt Count 213 K/uL (152-406) 08/19/19 05:26 PT 10.9 SECONDS (9.5-12.5) 08/18/19 01:01 INR 0.92 08/18/19 01:01 APTT 30.6 SECONDS (24.3-36.9) 08/18/19 01:01 Sodium 140 mmol/L (136-145) 08/19/19 05:26 Potassium 5.0 mmol/L (3.5-5.1) 08/19/19 05:26 BUN 14 mg/dL (7-18) 08/19/19 05:26 Creatinine 1.01 mg/dL (0.55-1.3) 08/19/19 05:26 Glucose 153 mg/dL (74-106) H 08/19/19 05:26 Uric Acid 5.3 mg/dL (3.5-7.2) 08/19/19 05:26 Phosphorus 2.8 mg/dL (2.5-4.9) 08/19/19 05:26 Magnesium 1.6 mg/dL (1.8-2.4) L 08/19/19 05:26 Total Bilirubin 0.3 mg/dL (0.2-1.0) 08/18/19 01:01 AST 9 U/L (15-37) L 08/18/19 01:01 ALT 22 U/L (12-78) 08/18/19 01:01 Alkaline Phosphatase 97 U/L (45-117) 08/18/19 01:01 Lipase 78 U/L (73-393) 08/18/19 01:01 Home Medications: Cholecalciferol (Vitamin D3) [Vitamin D3] 2,000 unit PO BID 04/02/19 Cyanocobalamin [Vitamin B-12*] 1,000 mcg PO DAILY 04/02/19 Gabapentin [Neurontin] 800 mg PO Q8H 04/02/19 Metformin HCl 1,000 mg PO BID 04/02/19 Multivitamin [Daily Multiple Vitamin] 1 each PO DAILY 04/02/19 Pantoprazole [Protonix Tab*] 40 mg PO DAILY 04/02/19 Tizanidine HCl [Zanaflex] 6 mg PO Q6H 04/02/19 Hydrocodone 7.5/APAP 325 [[place] 7.5/325 mg*] 1 tab PO Q6H PRN 08/18/19 Lisinopril [Zestril] 20 mg PO DAILY 08/18/19 Naloxegol Oxalate [Movantik] 25 mg PO DAILY 08/18/19 Ascorbic Acid [Vitamin C*] 500 mg PO Q12H #60 tablet 08/19/19 Na Bicarb Tab [Sodium Bicarb 325 MG Tab*] 650 mg PO TID #42 tab 08/19/19 Sucralfate [Carafate*] 1 gm PO ACHS tab 08/19/19 New Medications: Na Bicarb Tab [Sodium Bicarb 325 MG Tab*] 650 mg PO TID #42 tab Ascorbic Acid [Vitamin C*] 500 mg PO Q12H #60 tablet Diet: AHA Activity: Ad ethan Followup: Michael Ferguson DO [ACTIVE - CAN ADMIT] - 1-2 Weeks Charlene Aguilar MD [ACTIVE - CAN ADMIT] - 1 Week Time spent managing pt's care (in minutes): 32
[2019-08-19] MEDS ORDERED: PANTOPRAZOLE 40MG TABLET PO SCH (09:00)
[2019-08-19] MEDS ORDERED: MAGNESIUM SULFATE 1 gm IVPB 1 GM/100 ML BAG IV ONE (09:00)
[2019-08-19] MEDS ORDERED: NALOXEGOL OXALATE 25 MG PO SCH (09:00)
[2019-08-19] MEDS ORDERED: VITAMIN D 5,000 UNIT CAP PO SCH (09:00)
[2019-08-19] MEDS ORDERED: SOD FERRIC GLUC COMPLX/SUCROSE 250 MG in NA CHLORIDE 0.9% 250 ML IV SCH (09:00)
[2019-08-19] MEDS ORDERED: MULTIVITAMIN TAB PO SCH (09:00)
[2019-08-19 22:26] VITALS: BP 154/76; TEMP 98.5
--- NOTE | 2019-08-19 23:29 | PN ---
Date of Progress Note: 08/19/2019 Subjective: Patient was seen and examined. He states that he feels well. No overnight events were noted. No issues noted. Diarrhea was improved. Objective: Vital Signs: Have been reviewed and are stable. General: He appears in no acute distress. Lungs: Clear to auscultation. Abdomen: Soft and nontender. Extremities: Without any evidence of edema. Laboratory Data: Has been reviewed in detail. Renal function has significantly improved. Acidosis has also improved. His blood sugars were running low, but it is improved now after he started eating some snacks. He has mild anemia, but otherwise stable. Impression: 1.Acute renal failure secondary to likely from dehydration, currently with improving renal function with IV fluids. 2.Hypertension, stable. 3.Insulin-dependent diabetes, improved. 4.Iron deficiency, received some iron transfusion. 5.History of Rahul-en-Y gastric bypass. 6.Metabolic acidosis, stabilized. Plan: Patient is overall doing okay. He presented to the hospital with acidosis, likely secondary t o diarrhea. Patient's heart volume status was corrected with IV fluids and bicarb drip. Renal funct ion has returned back to baseline. Will need further investigation into recurrent causes of this aci dosis and GI losses of bicarb. Will need to do that as outpatient. This was counseled to the patien t and he understands and voiced understanding and will agree to follow up. Patient is okay to be discharged f rom Nephrology standpoint. VV/MODL Voice ID: [id number] Report ID: [id number]
== END 2019-08-19 22:41 | disposition home or self-care (01) | DRG 682 ==
LOC: ER 19:37 → ERHOLD 08-18 04:36 → 2ND 08-18 05:36 → OBSVTOIN 08-18 18:21
PROVIDERS: ADMIT Internal Medicine; ATTEND Internal Medicine
DX: N17.9 Acute kidney failure, unspecified (principal); G93.41 Metabolic encephalopathy; E87.2 Acidosis; E86.0 Dehydration; E61.1 Iron deficiency; E11.22 Type 2 diabetes mellitus with diabetic chronic kidney disease; I12.9 Hypertensive chronic kidney disease with stage 1 through stage 4 chronic kidney disease, or unspecified chronic kidney disease; N18.3 Chronic kidney disease, stage 3 (moderate); G89.4 Chronic pain syndrome; Z20.828 Contact with and (suspected) exposure to other viral communicable diseases; Z98.84 Bariatric surgery status
CPT/HCPCS: 36415; 80048; 80076; 81001; 82533; 82805; 82947; 83036; 83605; 83690; 83735; 84100; 84550; 85025; 85610; 85730; 87077; 87086; 87088; 87186; 93005; 99285; G0378; J1644; J2916; J3475; J7030; J7050; J7120; U0002

== ENCOUNTER 2019-09-06 07:30 | Day surgery (SDC) | payer BC ==
[2019-09-06] MEDS ORDERED: SODIUM CHLORIDE 0.9% 10ML INJ IV ONE (08:00)
[2019-09-06] MEDS ORDERED: COSYNTROPIN 0.25 MG VIAL IV ONE (08:00)
--- OUTSIDE RECORDS SUMMARY | 2019-09-06 08:01 | XMS REPORT | Continuity of Care Document ---
:[address] [facility] Information [employer] Care Team Providers Name Role Phone [facility] Information [facility] Unavailable Un available Problems Problem Status Onset Classification Date Comments [facility] e Date Reported [id number]--- Active 04/25/19 COMPLICATION OF 20 Jhonny ria BARIATRIC [facility] REFLUX Active 04/06/[address] KIDNEY STONE Active 08/20/[address] Herniated disc Resolved Problem 08/24/2012 [facility] Pyelonephritis Resolved Problem 08/24/2012 [facility] Benign essential Active Problem 08/10/2019 Medical hypertension Group,M H (disorder) [facility] Diabetes mellitus Active Problem 08/10/2019 H Medical (disorder) Group,[facility] 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/2019 [facility] edical disc prolapse Group, (disorder) [facility] Joint pain Active Problem 08/10/2019 Medic al (finding) Group,[facility] Morbid obesity Active Problem 08/10/2019 [facility] edical (disorder) Group,[facility] Pyelonephritis Resolved Problem 08/10/2019 [facility] edical (disorder) Group,[facility] Hypertensive Active Problem 08/10/2019 Med ical disorder, Group, systemic arterial [facility] (disorder) [facility] CALCULUS OF Active [facility] ILLNESS, Active UNSPECIFIED [facility] Medications Medication Details Route Status Patient Ordering Order Source Instructions Provider Date remove patch Notes: Remove No Longer 05/04/ old patch Active 2019 [facility] application of new patch. scopolamine 1.5 Notes: Change No Longer 05/04/ mg transdermal patch every 72 Active 2019 [place] [facility] film hours (Same City as: Transderm-Scop) Acetaminophen Notes: Do not Inactive 05/02/ exceed 4 2019 [facility] gm/day. (Same City as: Tylenol) Acetaminophen Notes: Do not Inactive 05/02/ 325 MG / exceed 4gm/day 2019 [facility] Hydrocodone [facility] Bitartrate 10 MG acetaminophen. Oral Tablet (Same as: [place] 325/10) omeprazole 40 mg 40 mg = 1 cap, Active oral delayed PO, BID, # 60 2019 [facility] ial release capsule cap, 1 [facility] Refill(s) Protonix Notes: For IV Inactive push 2019 [facility] with 10 ml 0.9% sodium chloride and push over 2 minutes. (Same as: Protonix) Lisinopril Notes: (Same Inactive as: Prinivil, 2019 [facility] Zestril) [facility] Lovenox Notes: (Same Inactive as: Lovenox) 2019 [facility] Calcium Chloride 1,000 mL, 1,000 Inactive 0.0014 MEQ/ML / ml/hr, Infuse 2019 [facility] Potassium Over: 1 hr, [facility] Chloride 0.004 Route: IV, MEQ/ML / Sodium 1,000, Drug Chloride 0.103 form: INJ, MEQ/ML / Sodium ONCE, Priority: Lactate 0.028 STAT, Dosing MEQ/ML Weight 102.9 Injectable kg, Start date: Solution 05/02/19 17:50:00 CDT, Stop date: 05/02/19 17:50:00 CDT, 0 Calcium Chloride 1,000 mL, 1,000 Inactive 0.0014 MEQ/ML / ml/hr, Infuse 2019 [facility] Potassium Over: 1 hr, [facility] Chloride 0.004 Route: IV, MEQ/ML / Sodium 1,000, Drug Chloride 0.103 form: INJ, MEQ/ML / Sodium ONCE, Priority: Lactate 0.028 STAT, Dosing MEQ/ML Weight 102.9 Injectable kg, Start date: Solution 05/02/19 17:10:00 CDT, Stop date: 05/02/19 17:10:00 CDT, 0 Ofirmev Notes: Infuse No Longer over [address] Do not exceed [facility] 4gm/day of acetaminophen MEDICATION WASTE Product Size: 1000 mg Product Wasted: ___ mg gabapentin 800 Notes: (Same No Longer MG Oral Tablet as: Neurontin) Active 2019 [facility] tizanidine 6 MG 6 mg = 1 cap, Active Oral Capsule PO, Q6H, PRN 2019 Memori al [Zanaflex] for muscle City spasms gabapentin 800 800 mg = 1 tab, Active H MG Oral Tablet PO, Q8H 2019 [facility] 72 HR Notes: Change Inactive Scopolamine patch every 72 2019 [facility] ial 0.0139 MG/HR hours (Same [facility] Transdermal as: Patch Transderm-Scop) tizanidine Notes: (Same No Longer As: Zanaflex) [facility] 2019 [facility] Dextrose 50% 12.5 gm, 25 mL, No Longer H Syringe (D50W) Route: IVP, 2019 [facility] Drug Form: INJ, [facility] Dosing Weight 102.9, kg, PRN, PRN Blood Glucose Results, Start date: 05/02/19 12:52:00 CDT, Duration: 30 day, Stop date: 06/01/19 12:51:00 CDT, 0 Glucagon 1 mg, Route: No Longer IM, Drug form: [facility] 2019 [facility] PDR/INJ, PRN, [facility] Dosing Weight 102.9, kg, PRN Blood Glucose Results, Start date: 05/02/19 12:52:00 CDT, Duration: 30 day, Stop date: 06/01/19 12:51:00 CDT, 0 Insulin regular Notes: (Same No Longer H as: Humulin R) [address] in [facility] of hands gently; Do not shake [...] oral delayed PO, Daily, # 30 2019 [facility] orial release capsule cap, 3 City Refill(s) ketOROLAC (ANES) IV, ONCE Inactive [address] [place] [address] sugammadex Route: IV, Drug Inactive (ANES) form: SOLN, [address] [place] [address] ONCE, Stop City date: 05/02/19 12:46:00 CDT Calcium Chloride 1,000 mL, Rate: No Longer 05/01 0.0014 MEQ/ML / 150 ml/hr, 2019 [facility] Potassium Infuse over: [facility] Chloride 0.004 6.7 hr, Route: MEQ/ML / Sodium IV, Dosing Chloride 0.103 Weight 102.9 MEQ/ML / Sodium kg, Total Lactate 0.028 Volume: 1,000, MEQ/ML Start date: Injectable 05/02/19 Solution 12:45:00 CDT, Duration: 30 day, Stop date: 06/01/19 12:44:00 CDT, 2.3, m2, 0 tramadol Notes: Not to No Longer hydrochloride 50 exceed [facility] Memoria l MG Oral Tablet 400mg/day. City (Same As: Ultram) Dilaudid Notes: Same as No Longer Dilaudid [address] Labetalol Notes: (Same No Longer as: Normodyne, [address] Trandate) Push City over 2 minutes Give bolus over 2-3 minutes. Hydralazine Notes: (Same No Longer as: Apresoline) [address] Push over 5 City minutes Ondansetron Notes: (Same No Longer as: Zofran) [address] MEDICATION City WASTE Product Size: 4 mg Product Wasted: ___ mg Promethazine 12.5 mg, 50 mL, No Longer H Route: IVPB, [address] Drug form: City SOLN, Q6H, Dosing Weight 102.9, kg, PRN Nausea & Vomiting, Start date: 05/02/19 12:45:00 CDT, Duration: 30 day, Stop date: 06/01/19 12:44:00 CDT, 0 ondansetron Route: IV, Drug Inactive (ANES) form: INJ, [address] [place] [address] ONCE, Stop [facility] date: 05/02/19 12:35:00 CDT phenylephrine Route: IV, Drug Inactive H (ANES) form: INJ, 2019 [facility] ONCE, Stop [facility] date: 05/02/19 11:24:00 CDT Calcium Chloride [...] 0 Hydralazine Notes: (Same Inactive as: Apresoline) [address] [place] [address] Push over 5 City minutes Labetalol Notes: (Same Inactive as: Normodyne, 2019 [facility] Trandate) Push [facility] over 2 minutes Give bolus over 2-3 minutes. Metoprolol Notes: (Same Inactive as: Lopressor) [address] [place] [address] Push over 2 City minutes Acetaminophen Notes: Max Inactive acetaminophen [address] [place] [address] 4000 mg/day (4 City gm/day). (Same as: Tylenol Extra Strength) Ibuprofen Notes: (Same Inactive as: Motrin) "Do [address] [place] [address] Not Crush" [facility] Take with food. Hydromorphone Notes: Same as Inactive Dilaudid [address] [place] [address] Morphine Notes: (Same Inactive as:MORPhine [address] [place] [address] Sulfate) [facility] Flumazenil Notes: (Same Inactive as: Romazicon) 2019 [facility] Naloxone Notes: Same as Inactive Narcan 2019 [facility] Albuterol 0.83 Notes: SEE RT Inactive MG/ML Inhalant DOCUMENTATION 2019 [facility] orial Solution (Same as: [facility] Proventil) Diphenhydramine Notes: (Same Inactive as: Benadryl) 2019 [facility] Meperidine Notes: (Same Inactive as: Demerol) 2019 [facility] "Use Precaution City in Elderly, Seizure disorders, and Renal impairment&quot ; Ondansetron Notes: (Same Inactive as: Zofran) 2019 [facility] MEDICATION City WASTE Product Size: 4 mg Product Wasted: ___ mg Dexamethasone Notes: Inactive Concentration: 2019 [facility] 4mg/ml [facility] Promethazine Notes: Do not Inactive give IV push. 2019 [facility] (Same as: [facility] Phenergan) 72 HR 1 patch, Route: Inactive Scopolamine TOP, Drug Form: 2019 Jhonny rial 0.0139 MG/HR ERFILM, Dosing [facility] Transdermal Weight 102.9, Patch kg, ONCE, Apply behind ear. Avoid use in elderly., Start date: 05/02/19 10:55:00 CDT, Stop date: 05/02/19 10:55:00 CDT Midazolam Notes: (Same Inactive as: Versed) 2019 [facility] MEDICATION City WASTE Product Size: 2 mg Product Wasted: ___ mg ePHEDrine (ANES) Route: IV, Drug Inactive form: INJ, 2019 [facility] ONCE, Stop City date: 05/02/19 10:54:00 CDT fentaNYL (ANES) Route: IV, Drug Inactive form: [id number] [facility] ONCE, Stop City date: 05/02/19 10:44:00 CDT lidocaine (ANES) Route: IV, Drug Inactive form: [id number] [facility] , Stop City date: 05/02/19 10:44:00 CDT propofol (ANES) Route: IV, Drug Inactive form: INJ, 2019 [facility] , Stop City date: 05/02/19 10:44:00 CDT famotidine Route: IV, Drug Inactive (ANES) form: [id number] [facility] , Stop date: 05/02/19 10:44:00 CDT rocuronium Route: IV, Drug Inactive (ANES) form: [id number] [facility] , City date: 05/02/19 10:39:00 CDT ceFAZolin (ANES) Route: IV, Drug Inactive form: INJ, 2019 [facility] , Stop City date: 05/02/19 10:39:00 CDT succinylcholine Route: IV, Drug Inactive (ANES) form: [id number] [facility] , date: 05/02/19 10:39:00 CDT midazolam (ANES) Route: IV, Drug Inactive form: SOLN, 2019 [facility] , date: 05/02/19 10:28:00 CDT acetaminophen [...] 75 ml/hr, 2019 Mem[facility] ial Infuse over: [facility] 13.3 hr, Route: IV, Dosing Weight [...] 2012 Medical cap, Center Substitution Allowed, CAP [place] 10/325 1 tab, PO, Q6H, PO Active [facility] oral tablet PRN, 15 tab, 2012 Medical Pain, Center Substitution Allowed, Maintenance, TAB Keflex 500 mg 500 mg, 1 cap, PO Active [facility] oral capsule PO, QID, 40 2012 Medical cap, Center Substitution Allowed, CAP Insulin regular 4 unit, 0.04 SUB-Q No Longer [facility] mL, Route: Active 2012 Medical SUB-Q, [...] 50 mL, IVP No Longer Ileana H [place] Syringe Route: IVP, Active 2012 Medical Drug Form: INJ, Center Dosing Weight 153.636, kg, PRN, PRN Blood Glucose Results, Start date: 08/21/12 12:06:00, Duration: 30 day, Stop date: 09/20/12 12:05:00 bisacodyl 10 mg, 1 supp, IA No Longer Ileana [facility] Route: IA, Drug Active 2012 Medical form: SUPP, Center Daily, Dosing Weight 153.636, kg, PRN Constipation, Start date: 08/21/12 9:45:00, Duration: 30 day, Stop date: 09/20/12 9:44:00 Insulin regular 1 unit, 0.01 SUB-Q No Longer Ileana [facility] mL, Route: Active 2012 Medical SUB-Q, [...] 50 mL, IVP No Longer Ileana 08/21/ [facility] Syringe Route: IVP, Active 2012 Medical Drug Form: INJ, Center Dosing Weight 153.636, kg, PRN, PRN Blood Glucose Results, Start date: 08/21/12 6:35:00, Duration: 30 day, Stop date: 09/20/12 6:34:00 [place] 10/325 1 tab, Route: PO No Longer Ileana 13/ H [place] oral tablet PO, Drug Form: Active 2012 [...] 100 mg, 1 cap, PO No Longer [facility] oral capsule Route: PO, Drug Active [...] Duration: 30 day, Stop date: 09/18/12 17:00:00 [place] 10/325 1 tab, Route: PO No Longer Ileana H [place] oral tablet PO, Drug Form: Active 2012 Medic al TAB, Dosing Center Weight 153.636, kg, Q6H, PRN Pain, Start date: 08/20/12 6:36:00, Duration: 30 day, Stop date: 09/19/12 6:35:00 Dilaudid 1 mg, Route: IVP No Longer Donnie 07/13[facility] IVP, ONCE, Active 2012 Medical Dosing Weight Center 152.273, kg, Priority: STAT, Start date: 08/20/12 2:14:00, Stop date: 08/20/12 2:14:00 Rocephin 1 gm, Route: IVPB [place] Longer [place] IVPB, Drug Active 2012 Medical form: PDR/INJ, Center [id number], Dosing Weight 152.273, kg, Start date: 08/20/12 2:00:00, Duration: 30 day, Stop date: 09/18/12 2:00:00 ondansetron 4 mg, Route: IVP No Longer [place] IVP, ONCE, Active 2012 Medical Dosing Weight Center 152.273, kg, PRN Nausea & Vomiting, Start date: 08/20/12 1:32:00 naloxone 0.04 mg, 0.1 IVP No Longer Donnie 08/20[facility] mL, Route: IVP, 2012 Medical Drug form: INJ, Center Q2MIN, Dosing Weight 152.273, kg, PRN Narcotic Reversal, Start date: 08/20/12 1:32:00, Duration: 8 doses or times, Stop date: Limited # of times hydromorphone 0.5 mg, 0.25 IVP No Longer Roselia 08/20[facility] mL, Route: IVP, 2012 Medical Drug form: [...] Drug Active 2012 Medical form: PDR/INJ, Center [id number], Dosing Weight 152.273, kg, Start date: 08/20/12 0:00:00, Duration: 30 day, Stop date: 09/18/12 0:00:00 Dilaudid 1 mg, Route: IVP No Longer [place] 08/20[facility] IVP, ONCE, Active 2012 Medical Dosing Weight Center 152.273, kg, Priority: STAT, Start date: 08/19/12 22:53:00, Stop date: 08/19/12 22:53:00 ciprofloxacin 400 mg, 200 mL, IVPB No Longer [facility] 08/20[facility] Route: IVPB, Active 2012 Medical Drug form: INJ, Center [id number], Dosing Weight 152.273, kg, Priority: STAT, Start date: 08/19/12 22:04:00, Duration: 30 day, Stop date: 09/18/12 10:04:00 morphine Sulfate 2 mg, 1 mL, IVP No Longer [facility] 08/20[facility] Route: IVP, Active 2012 Medical Drug form: INJ, Center Q2H, Dosing Weight 152.273, kg, PRN Breakthrough Pain, Start date: 08/19/12 22:02:00, Duration: 30 day, Stop date: 09/18/12 22:01:00 omega-3 1,000 mg, 1 PO Active 08/20[facility] polyunsaturated cap, PO, BID, 2012 Me dical fatty acids 1000 Substitution Ce nter mg oral capsule Allowed Unknown Home fenugreek Active [facility] Medication herbal 2012 Medical supplement- 1 Center tab po daily, Substitution Allowed multivitamin 1 tab, PO, PO Active 08/20[facility] Daily, 2012 Medical Substitution Center Allowed, Maintenance ibuprofen 800 mg 800 mg, 1 tab, PO Active [facility] oral tablet PO, TID, PRN, 2012 Medica l 270 tab, as Center needed for pain, Substitution Allowed, TAB tizanidine 4 mg 8 mg, 2 tab, PO Active 08/20[facility] oral tablet PO, BID, 180 2012 Medical tab, Center Substitution Allowed, TAB tramadol 50 mg 50 mg, 1 tab, PO Active [facility] oral tablet PO, BID, PRN, 2012 Medica l 40 tab, Pain, Center Substitution Allowed, TAB Flexeril 10 mg 10 mg, 1 tab, PO Active [place] oral tablet PO, BID, PRN, 2012 Medica l 30 tab, for Center spasm, Substitution Allowed, TAB Vicodin HP 660 1 tab, PO, TID, PO Active [place] mg-10 mg oral PRN, for pain, 2012 Med ical tablet Substitution Center Allowed, Maintenance, TAB NS 1,000 mL 1,000 mL, Rate: IV No Longer Ileana [place] 42 ml/hr, Active 2012 Medical Infuse over: Center 23.8 hr, Route: IV, Dosing Weight 152.273 kg, Total Volume: 1,000, Start date: 08/19/12 20:53:00, Stop date: 09/18/12 20:52:00 acetaminophen 650 mg, Route: PO No Longer Hoot [place] PO, ONCE, Active 2012 Medical Dosing Weight Center 152.273, kg, Priority: STAT, Start date: 08/19/12 19:45:00, Stop date: 08/19/12 19:45:00 Dilaudid 1 mg, Route: IV No Longer ot [place] IV, ONCE, Active 2012 Medical Dosing Weight Center 152.273, kg, Start date: 08/19/12 19:37:00, Stop date: 08/19/12 19:37:00 Toradol 30 mg/mL 30 mg, Route: IV No Longer ot [place] injectable IV, ONCE, Active 2012 Medical solution [...] Hgb 9.0 14.0 - 05/02 MH 18.0 [facility] CHEM PANEL Glucose Lvl 173 70 - 99 05/02 [facility] CHEM PANEL BUN 19 7 - 22 05/02 [facility] CHEM PANEL Creatinine 1.10 0.50 - 05/02 MH Lvl 1.40 [facility] CHEM PANEL Sodium Lvl 138 135 - 145 05/02 [facility] CHEM PANEL Potassium 5.0 3.5 - 5.1 05/02 MH Lvl /2019 [facility] CHEM PANEL Chloride Lvl 111 95 - 109 05/02 [facility] CHEM PANEL CO2 19 24 - 32 05/02 [facility] CHEM PANEL Calcium Lvl 8.4 8.5 - 10.5 05/02 [facility] CHEM PANEL AGAP 13.0 10.0 - 05/02 MH 20.0 [facility] CHEM PANEL eGFR 81 05/02 Result Comment: [facility] eGFR is City calculated using the [...] Segs 68.9 45.0 - 05/02 MH 75.0 [facility] HEMATOLOGY Lymphocytes 23.8 20.0 - 05/02 MH 40.0 [facility] HEMATOLOGY Monocytes 6.1 2.0 - 12.0 05/02 MH /2019 [facility] HEMATOLOGY Eosinophils 1.1 0.0 - 4.0 05/02 [facility] HEMATOLOGY Basophils 0.1 0.0 - 1.0 05/02 [facility] HEMATOLOGY Neutrophils 4.6 1.5 - 8.1 05/02 MH # /2019 [facility] HEMATOLOGY Lymphocytes 1.6 1.0 - 5.5 05/02 MH # [facility] HEMATOLOGY Monocytes # 0.4 0.0 - 0.8 05/02 [facility] HEMATOLOGY Eosinophils 0.1 0.0 - 0.5 / MH # /2019 [facility] HEMATOLOGY WBC 6.7 3.7 - 10.4 03 MH /2019 [facility] HEMATOLOGY RBC 2.86 4.70 - 05/02 MH 6.10 [facility] HEMATOLOGY Hgb 8.6 14.0 - 05/02 MH 18.0 [facility] HEMATOLOGY Hct 27.1 42.0 - 05/02 MH 54.0 /2019 [facility] HEMATOLOGY MCV 95.0 80.0 - 05/02 MH 94.0 /2019 [facility] HEMATOLOGY MCH 30.2 27.0 - 05/02 MH 31.0 /2019 [facility] HEMATOLOGY MCHC 31.8 32.0 - 05/02 MH 36.0 /2019 [facility] HEMATOLOGY RDW 16.5 11.5 - 05/02 MH 14.5 /2019 [facility] HEMATOLOGY Platelet 203 133 - 450 05/02 MH /2019 [facility] HEMATOLOGY MPV 8.3 7.4 - 10.4 05/02 MH /2019 [facility] HEMATOLOGY Hgb 9.3 14.0 - 05/02 MH 18.0 [facility] HEMATOLOGY Hct 33.0 42.0 - 05/01 MH 54.0 [facility] BLOOD BANK ABO/Rh A POS 05/01 RESULTS /2019 [facility] BLOOD BANK Antibody Negative 05/01 RESULTS Scrn (05/02/19 8:55 AM) /2019 [facility] CHEM PANEL Vit B1 Lvl 128.8 66.5 - 05/01 Result MH (Bariatric) 200.0 Comment: This [facility] test was City developed and its performance characteristi cs
determ ined by [facility]. It has not been cleared or
approv ed by the Food and Drug Administratio n.
Perfor med At: [facility] [place]
[address], [place] [id number]<br/ >Clement Stock MD Ph:[phone] CHEM PANEL Vitamin D, 70.5 30.0 - 05/01 MH 25-OH, Total 100.0 [facility] HEMATOLOGY WBC 5.7 3.7 - 10.4 05/01 MH /2019 [facility] HEMATOLOGY RBC 3.94 4.70 - 05/01 MH 6.10 [facility] HEMATOLOGY Hct 36.9 42.0 - 05/01 MH 54.0 [facility] HEMATOLOGY MCV 93.6 80.0 - 05/01 MH 94.0 /2019 [facility] HEMATOLOGY MCH 30.6 27.0 - 05/01 MH 31.0 /2019 [facility] HEMATOLOGY MCHC 32.7 32.0 - 05/01 MH 36.0 /2019 [facility] HEMATOLOGY RDW 16.5 11.5 - 05/01 MH 14.5 /2019 [facility] HEMATOLOGY Platelet 271 133 - 450 03 MH /2019 [facility] HEMATOLOGY MPV 7.8 7.4 - 10.4 03/ MH /2019 [facility] HEMATOLOGY PT 12.2 12.0 - 05/01 MH 14.7 /2019 [facility] HEMATOLOGY INR 0.91 0.85 - 05/01 MH 1.17 /2019 [facility] HEMATOLOGY PTT 26.7 22.9 - 05/01 MH 35.8 [facility] HEMATOLOGY Segs 52.1 45.0 - 05/01 MH 75.0 [facility] HEMATOLOGY Lymphocytes 37.6 20.0 - 05/01 MH 40.0 [facility] HEMATOLOGY Monocytes 6.5 2.0 - 12.0 03 MH /2019 [facility] HEMATOLOGY Eosinophils 3.5 0.0 - 4.0 03/ MH /2019 [facility] HEMATOLOGY Basophils 0.3 0.0 - 1.0 03/ MH /2019 [facility] HEMATOLOGY Neutrophils 3.0 1.5 - 8.1 05/01 # /2019 [facility] HEMATOLOGY Lymphocytes 2.1 1.0 - 5.5 05/01 # /2019 [facility] HEMATOLOGY Monocytes # 0.4 0.0 - 0.8 05/01 [facility] HEMATOLOGY Eosinophils 0.2 0.0 - 0.5 05/01 # /2019 [facility] URINE AND UA Turbidity Clear Clear 05/01 STOOL (05/02/19 8:45 AM) [facility] URINE AND UA Spec Grav 1.009 <=1.030 05/01 STOOL /2019 [facility] URINE AND UA pH 5.0 5.0 - 8.0 05/01 STOOL /2019 [facility] URINE AND UA Protein Negative Negative 05/01 STOOL mg/dL mg/dL [facility] URINE AND UA Glucose Negative Negative 05/01 STOOL mg/dL mg/dL [facility] URINE AND UA Bili Negative Negative 05/01 STOOL *NA* /2019 [facility] (05/02/19 8:45 AM) [facility] URINE AND UA Blood Negative Negative 05/01 STOOL (05/02/19 8:45 AM) [facility] URINE AND UA Nitrite Negative Negative 05/01 STOOL (05/02/19 8:45 AM) [facility] URINE AND UA Leuk Est Negative Negative 05/01 STOOL (05/02/19 8:45 AM) [facility] URINE AND Micro? Not Indicated 05/01 STOOL *NA* /2019 [facility] (05/02/19 8:45 AM) [facility] URINE AND UA Color Straw 05/01 STOOL /2019 [facility] URINE AND UA Ketones Negative 05/01 STOOL [facility] URINE AND UA <=1.0 0.1 - 1.0 05/01 STOOL Urobilinogen mg/dL /2019 [facility] ELECTROLYTE POC Sodium 136 135 - 145 04/10 S [facility] ELECTROLYTE POC 3.8 3.5 - 5.1 04/10 S Potassium /2019 [facility] ELECTROLYTE POC Glucose 92 70 - 99 04/10 S /2019 [facility] ELECTROLYTE POC 10.5 14.0 - 04/10 S Hemoglobin 18.0 [facility] ELECTROLYTE POC 31.0 42.0 - 04/10 S Hematocrit 54.0 [facility] BEDSIDE Gluc POC 168 70 - 99 08/22 HI <sup>1</sup>I [facility] GLUCOSE Lifscn nterpretive Medical TESTING Data: Center Upper Reportable Limit: 200 mg/dL. BEDSIDE Comment1 Notify 08/22 NA [facility] GLUCOSE RN/MD Medical TESTING Center CHEMISTRY AGAP 14.8 10.0 - 08/22 Normal [facility] 20.0 [facility] CHEMISTRY eGFR 69 08/22 NA <sup>4</sup>R esult [...] 8.5 - 10.5 08/22 LOW a s [facility] CHEMISTRY Chloride Lvl 106 95 - 109 08/22 Normal [facility] CHEMISTRY CO2 24 24 - 32 08/22 Normal [facility] CHEMISTRY Potassium 3.8 3.5 - 5.1 08/22 Normal [facility] Lv [facility] CHEMISTRY Sodium Lvl 141 135 - 145 08/22 [facility] CHEMISTRY Creatinine 1.3 0.5 - 1.4 08/22 Normal [facility] CHEMISTRY BUN 22 7 - 22 08/22 Normal [facility] CHEMISTRY Glucose Lvl 152 70 - 99 08/22 HI <sup>7</sup>I T ex nterpretive Medical Data: Adult Center reference range values reflect the clinical guidelines
of the [place] [employer]. HEMATOLOGY Platelet 130 133 - 450 08/22 [facility] HEMATOLOGY RDW 15.1 11.5 - 08/22 [facility] [place] 14.5 [facility] HEMATOLOGY MCHC 33.6 32.0 - 08/22 Normal [place] 36.0 /2012 [facility] HEMATOLOGY MCH 28.5 27.0 - 08/22 [facility] [place] 31.0 Medical Center HEMATOLOGY MCV 84.8 80.0 - 08/22 Normal [place] 94.0 /2012 Medical Center HEMATOLOGY Hct 30.7 42.0 - 07 [facility] [place] 54.0 /2012 [facility] HEMATOLOGY Hgb 10.3 14.0 - 08/22 [facility] [place] 18.0 [facility] HEMATOLOGY MPV 9.1 7.4 - 10.4 08/22 Normal [facility] HEMATOLOGY RBC 3.62 4.70 - 08/22 [facility] [place] 6.10 Medical Center HEMATOLOGY WBC 7.6 3.7 - 10.4 08/22 Normal [facility] HEMATOLOGY Lymphocytes 1.0 1.0 - 5.5 08/22 [facility] [place] # /2012 [facility] HEMATOLOGY Segs-Bands # 5.5 1.5 - 8.1 08/22 Normal [place]ukhjinder as /2012 [facility] HEMATOLOGY Monocytes # 1.0 0.0 - 0.8 08/22 [place] [facility] HEMATOLOGY Eosinophils 0.1 0.0 - 0.5 08/22 [place] # /2012 [facility] HEMATOLOGY Basophils 0.3 0.0 - 1.0 08/22 Normal [facility] HEMATOLOGY Eosinophils 1.1 0.0 - 4.0 08/22 [place] [facility] HEMATOLOGY Monocytes 13.1 2.0 - 12.0 08/22 HI [facility] HEMATOLOGY Lymphocytes 13.2 20.0 - 08/22 LOW [place] 40.0 [facility] HEMATOLOGY Segs 72.3 45.0 - 08/22 Normal [facility] 75.0 [facility] BEDSIDE Gluc POC 328 70 - 99 08/22 HI <sup>2</sup>I [facility] GLUCOSE [facility] nterpretive Medical TESTING Data: Center Upper Reportable Limit: 200 mg/dL. BEDSIDE Comment1 Notify 08/21 NA [facility] GLUCOSE RN/ /2012 [facility] TESTING Center BEDSIDE Gluc POC 168 70 - 99 08/21 HI <sup>3</sup>I [facility] GLUCOSE [facility] nterpretive Medical TESTING Data: [place] Upper Reportable Limit: 200 mg/dL. BEDSIDE Comment1 Notify 08/21 NA [facility] GLUCOSE RN/ [facility] TESTING Center Microbiolog Culture: 08/21 [facility] y Urine [facility] CHEMISTRY eGFR 76 08/21 NA <sup>5</sup>R esult [...] Creatinine 1.2 0.5 - 1.4 08/21 Normal [facility] CHEMISTRY BUN 16 7 - 22 08/21 Normal [facility] CHEMISTRY Chloride Lvl 103 95 - 109 08/21 Normal [facility] CHEMISTRY Potassium 3.6 3.5 - 5.1 08/21 Normal [facility] Lvl [facility] CHEMISTRY Sodium Lvl 138 135 - 145 08/21 [facility] CHEMISTRY Glucose Lvl 187 70 - 99 08/21 [place] <sup>8</sup>[place] nterpretive Medical Data: Adult Center reference range values reflect the clinical guidelines
of the [place] [employer]. CHEMISTRY Calcium Lvl 8.0 8.5 - 10.5 08/21 [place] [facility] CHEMISTRY CO2 24 24 - 32 08/21 Normal [facility] CHEMISTRY AGAP 14.6 10.0 - 08/21 [facility] [place] 20.0 /2012 Medical Center HEMATOLOGY MCHC 32.6 32.0 - 08/21 [facility] [place] 36.0 /2012 [facility] HEMATOLOGY RDW 15.3 11.5 - 08/21 [facility] [place] 14.5 /2012 [facility] HEMATOLOGY Hct 30.0 42.0 - 08/21 LOW [place] 54.0 /2012 [facility] HEMATOLOGY MCV 86.0 80.0 - 08/21 [facility] [place] 94.0 /2012 [facility] HEMATOLOGY MCH 28.0 27.0 - 07 Normal [place] 31.0 /2012 [facility] HEMATOLOGY MPV 9.2 7.4 - 10.4 08/21 [facility] HEMATOLOGY Platelet 141 133 - 450 08/21 Normal [facility] HEMATOLOGY WBC 15.8 3.7 - 10.4 08/21 HI [facility] HEMATOLOGY RBC 3.49 4.70 - 08/21 LOW [place] 6.10 [facility] HEMATOLOGY Hgb 9.8 14.0 - 08/21 [facility] [place] 18.0 /2012 [facility] HEMATOLOGY Segs 88.7 45.0 - 08/21 [facility] [place] 75.0 /2012 [facility] HEMATOLOGY Lymphocytes 6.5 20.0 - 08/21 LOW [place] 40.0 /2012 [facility] HEMATOLOGY Monocytes 4.5 2.0 - 12.0 08/21 Normal [facility] HEMATOLOGY Eosinophils 0.2 0.0 - 4.0 08/21 Normal a [facility] HEMATOLOGY Segs-Bands # 14.0 1.5 - 8.1 08/21 HI [facility] HEMATOLOGY Basophils 0.1 0.0 - 1.0 08/21 Normal [facility] HEMATOLOGY Monocytes # 0.7 0.0 - 0.8 08/21 [facility] HEMATOLOGY Lymphocytes 1.0 1.0 - 5.5 08/21 [facility] CHEMISTRY eGFR 69 08/20 NA <sup>6</sup>R esult [...] Lvl 106 95 - 109 08/20 Normal [facility] CHEMISTRY Calcium Lvl 7.6 8.5 - 10.5 08/20 [facility] CHEMISTRY AGAP 17.8 10.0 - 08/20 Normal [facility] 20.0 [facility] CHEMISTRY CO2 21 24 - 32 08/20 LOW [facility] CHEMISTRY Glucose Lvl 224 70 - 99 08/20 [place] <sup>9</sup>I [place] /2012 nterpretive Medical Data: Adult Center reference range values reflect the clinical guidelines
of the [place] [employer]. CHEMISTRY BUN 14 7 - 22 08/20 Normal [facility] CHEMISTRY Potassium 3.8 3.5 - 5.1 08/20 Normal [facility] Lvl [facility] CHEMISTRY Creatinine 1.3 0.5 - 1.4 08/20 Normal [facility] Lvl Medical Center CHEMISTRY Sodium Lvl 141 135 - 145 08/20 Normal /2012 [facility] HEMATOLOGY Plt Morph Normal 08/20 Normal [facility] (08/20/2012 05:30:00) [facility] HEMATOLOGY Tot Cell Ct 100 08/20 NA [facility] HEMATOLOGY Segs 65.0 45.0 - 08/20 Normal [place] 75.0 /2012 [facility] HEMATOLOGY Bands 28.0 0.0 - 11.0 08/20 [facility] HEMATOLOGY Monocytes # 0.2 0.0 - 0.8 08/20 [place] [facility] HEMATOLOGY RBC Morph Normal 08/20 Normal [facility] (08/20/2012 05:30:00) [place] [facility] HEMATOLOGY Atypical 0.0 <=0.0 08/20 Normal [facility] Lymphs /2012 [facility] HEMATOLOGY Monocytes 1.0 2.0 - 12.0 08/20 LOW [place] /2012 [facility] HEMATOLOGY Metamyelocyt 1.0 0.0 - 1.0 08/20 Normal S[facility]hjinder as es [facility] HEMATOLOGY Lymphocytes 5.0 20.0 - 08/20 LOW [place] 40.0 [facility] HEMATOLOGY Lymphocytes 1.2 1.0 - 5.5 08/20 [place] # /2012 [facility] HEMATOLOGY Segs-Bands # 23.1 1.5 - 8.1 08/20 [facility] Sukhjinder as [facility] HEMATOLOGY MCHC 32.3 32.0 - 08/20 Normal [place] 36.0 [facility] HEMATOLOGY RDW 15.0 11.5 - 08/20 [facility] [place] 14.5 [facility] Center HEMATOLOGY Hgb 10.3 14.0 - 08/20 LOW [place] 18.0 /2012 [facility] HEMATOLOGY RBC 3.67 4.70 - 08/20 LOW [place] 6.10 /2012 [facility] HEMATOLOGY WBC 24.8 3.7 - 10.4 08/20 [place] Medical [place] HEMATOLOGY MCV 86.5 80.0 - 08/20 Normal [place] 94.0 /2012 Medical [place] HEMATOLOGY MCH 27.9 27.0 - 08/20 Normal [facility] 31.0 Medical [place] HEMATOLOGY Hct 31.8 42.0 - 07 LOW [place] 54.0 Medical [place] HEMATOLOGY MPV 9.2 7.4 - 10.4 08/20 Normal [facility] HEMATOLOGY Platelet 132 133 - 450 08/20 LOW [facility] CHEMISTRY Magnesium 1.4 1.8 - 2.4 08/20 LOW [facility] l [facility] CHEMISTRY Phosphorus 2.8 2.5 - 4.5 08/20 Normal [facility] BLOOD BANK Antibody Negative 08/20 Normal [facility] RESULTS Scrn (08/19/2012 21:20:00) [facility] BLOOD BANK ABO/Rh A POS 08/20 Unknown [facility] RESULTS [facility] CHEMISTRY Lactic Acid 3.6 0.5 - 2.2 08/20 [facility] CHEMISTRY Globulin 3.5 2.0 - 4.0 08/20 Normal [facility] CHEMISTRY A/G Ratio 0.9 0.7 - 1.6 08/20 Normal [facility] CHEMISTRY Bili 0.8 0.0 - 1.0 08/20 Normal [facility] CHEMISTRY Albumin Lvl 3.2 3.5 - 5.0 08/20 LOW [facility] CHEMISTRY ALT 38 0 - 65 08/20 Normal [facility] CHEMISTRY Total 6.7 6.4 - 8.4 08/20 Normal [facility] CHEMISTRY Alk Phos 113 39 - 136 08/20 Normal [facility] CHEMISTRY Bili Total 1.0 0.2 - 1.3 08/20 Normal [facility] CHEMISTRY AST 37 0 - 37 08/20 Normal [facility] CHEMISTRY Bili Direct 0.2 0.0 - 0.3 08/20 Normal [facility] HEMATOLOGY Elliptocyte Slight None Seen 08/[place] *[place]* /2012 Medical (08/19/2012 21:20:00) Ce nter HEMATOLOGY Atypical 0.0 <=0.0 08/20 Normal [facility] Lymphs [facility] HEMATOLOGY Toxic Gran Slight None Seen 08/20 [facility] * Medical (08/19/2012 21:20:00) Ce nter HEMATOLOGY Large Plt Slight None Seen 08/20 [facility] * Medical (08/19/2012 21:20:00) Ce nter HEMATOLOGY Neut Vac Slight None Seen 08/20 [facility] Medical (08/19/2012 21:20:00) Ce nter HEMATOLOGY Anisocyte 1+ None Seen 08/20 [facility] * Medical (08/19/2012 21:20:00) Ce nter HEMATOLOGY Tot Cell Ct 200 08/20 NA [facility] HEMATOLOGY Polychrom Slight None Seen 08/20 Normal [facility] (08/19/2012 21:20:00) [facility] HEMATOLOGY Microcyte 1+ None Seen 08/20 [facility] Medical (08/19/2012 21:20:00) Ce nter HEMATOLOGY Hypochrom Slight None Seen 08/20 Normal [facility] (08/19/2012 21:20:00) [place] [facility] HEMATOLOGY Bands 21.0 0.0 - 11.0 08/20 [facility] HEMATOLOGY INR 1.30 0.85 - 08/20 [place]sup[place]> [place] 1.17 Interpretive Medical Data: Center RECOMMENDED RANGES FOR PROTIME INR:
2.0-3.0 for most medical and surgical thromboemboli c states.
2.5-3.5 for artificial heart valves and recurrent embolism.<br/ >
INR SHOULD BE USED ONLY FOR PATIENTS ON STABLE ANTICOAGULANT THERAPY. HEMATOLOGY PT 16.4 12.0 - 08/20 [facility] [place] 14.7 [facility] HEMATOLOGY PTT 33.2 22.9 - 08/20 Normal <sup>11</sup> [place] 35.8 Interpretive Medical Data: [facility] Center Therapeutic Range: 57 - 92 Seconds URINALYSIS UA WBC 6-10 /HPF None Seen 08/19 [facility] *ABN Medical (08/19/2012 18:27:00) Ce nter URINALYSIS UA Sq Epi None Seen Few 08/19 Normal [facility] (08/19/2012 18:27:00) Me dical Center URINALYSIS UA Bacteria Few /HPF None Seen 08/19 Normal Sukhjinder as (08/19/2012 18:27:00) Me dical Center URINALYSIS UA RBC >100 /HPF 0 - 2 08/19 ABN [facility] Medical (08/19/2012 18:27:00) Ce nter URINALYSIS Micro? Performed 08/19 Normal [facility] (08/19/2012 18:27:00) [facility] URINALYSIS UA Protein 30 mg/dL Negative 08/19 [facility] Medical (08/19/2012 18:27:00) Ce nter URINALYSIS UA Glucose Negative Negative 08/19 Normal [facility] (08/19/2012 18:27:00) [place] [facility] URINALYSIS UA pH 5.5 5.0 - 8.0 08/19 Normal [facility] Center URINALYSIS UA Bili Negative Negative 08/19 NA [facility] *NA* Medical (08/19/2012 18:27:00) Ce nter URINALYSIS UA Ketones Negative Negative [facility]2012 18:27:00) Ce nter URINALYSIS UA Color Yellow Yellow 08/19 NA [facility]* Medical (08/19/2012 18:27:00) Ce nter URINALYSIS UA Turbidity Slight Cloudy Clear 08/19 Normal [facility] (08/19/2012 18:27:00) Me dical Center URINALYSIS UA Spec Grav 1.020 <=1.030 08/19 Normal [facility] URINALYSIS UA Nitrite Negative Negative 08/19 Normal [facility] (08/19/2012 18:27:00) Me dical Center URINALYSIS UA Leuk Est Small Negative 08/19 [facility] Medical (08/19/2012 18:27:00) Ce nter URINALYSIS UA Blood Large Negative 08/19 ABN Medical (08/19/2012 18:27:00) Ce nter URINALYSIS UA 0.2 0.1 - 1.0 08/19 Normal [facility] [employer]ilin[employer] /[address] [place] [address] Pathology Reports No Data Provided for This Section Diagnostic Reports Report Value Date Source Chest 1view DX SINGLE VIEW CHEST X-RAY. 05/02/2019 8:16 AM CDT 05/02/2019 [facility] INDICATION: Coughing - coughing TECHNIQUE: Single frontal [...] oup Temperature Oral (F) 97.7 F 05/03/2019 [facility] Heart Rate 54 [facility]03[facility] Resp[facility] 18 05/03/[address] [facility] C ity Systolic (mm Hg) 112 05/03/[address] [facility] [place] Diastolic (mm Hg) 59 05/03/[address] [facility] Temperature Oral (F) 98.3 F 05/03/2019 [facility] Heart Rate 55 05/03/2019 [facility] Respitory Rate 17 05/03/[address] [facility] C ity Systolic (mm Hg) 99 05/03/[address] [facility] [place] Diastolic (mm Hg) 50 05/03/[address] [facility] Temperature Oral (F) 98.2 F 05/03/2019 [facility] Heart Rate 62 05/03/2019 [facility] Respitory Rate 16 05/03/[address] [facility] C ity Systolic (mm Hg) 149 05/03/[address] [facility] [place] Diastolic (mm Hg) 96 05/03/[address] [facility] Height 182.88 cm 05/01/2019 [facility] [...] Gr oup Diastolic (mm Hg) 64 08/22/2012 [facility] edical Center Systolic (mm Hg) 124 08/22/2012 [facility] dical Center Heart Rate 62 08/22/2012 [facility] Respitory Rate 18 08/22/2012 [facility] Temperature Oral (F) 98.0 F 08/22/2012 [facility] Diastolic (mm Hg) 65 08/22/2012 [facility] edical Center Systolic (mm Hg) 108 08/22/2012 [facility] dical Center Respitory Rate 18 08/22/2012 [facility] Center Temperature Oral (F) 97.7 F 08/22/2012 [facility] Heart Rate 51 08/22/2012 [facility] Diastolic (mm Hg) 52 08/22/2012 [facility] edical Center Respitory Rate 18 08/22/2012 [facility] damien Center Systolic (mm Hg) 97 08/22/2012 [facility] dical Center Heart Rate 59 08/22/2012 [facility] Temperature Oral (F) 97.8 F 08/22/2012 [facility] Height 189.23 cm 08/20/2012 [facility] Medica l Center Weight 153.636 08/20/2012 [facility] Medica l Center Weight 152.273 08/19/2012 [facility] Medica l Center Height 187.96 cm 08/19/2012 [facility] Encounters Location Location Encounter Encounter Reason Attending ADM [place] Stat us Source Details Type Number For Provider Date Date Visit [facility] Inpatient [id number] KIDNEY LINDA 08/19 08/22 Active [place] [facility] STONE YAQUELIN /2012 [facility] Outpatient [id number] 04/06 Active [facility] Primomo /2020 [facility] Outpatient [id number] 04/06 [facility] [place] /2020 /2020 [facility] Surgery [facility] Bedded [id number] Jim 04/10 04/10 [facility] [place] /2020 /2020 Jhonny ramonel [facility] Inpatient [id number] Jim 05/01 05/03 Patrick [place] /2020 /2020 [facility] Outpatient [id number] Jim 05/10 Active [facility] Primomo /2020 [facility] Outpatient [id number] Jim 05/10 05/11 [facility] [place] /2019 /2020 [facility] Surgery Outpatient [id number] QUALITY RN 06/15 Beliai juanita [facility] VISIT /2019 [facility] Outpatient [id number] QUALITY RN 06/15 06/16 Physicians VISIT /2019 Medica l [facility]ric Group Surgery Outpatient [id number] Jim 07/09 Active [facility] Primomo /2020 [facility] Outpatient [id number] Jim 07/09 07/10 [facility] [place] /2020 /2020 [facility]ric Group Surgery Between [id number] 08/06 08/07 Physicians Visit /2019 [facility]ica l [facility]ric [facility] Surgery Between [id number] 08/06 08/07 Physicians Visit /2019 Medica l Bariatric Group Surgery Procedures Procedure Code Date Perfomer Comments Source Cystoscopy of ureter [id number] [facility] Gastric bypass [id number] [facility] Right Retrograde [facility] pyelogram with Medical Abtracting Uterry [place] Stone Right Stent placement [id number] [facility] with [facility] Cystoscopy of ureter [id number] [facility] edical Group,[facility] Gastric bypass [id number] Medical operation Group,[facility] Right Retrograde [id number] Medic al pyelogram with Group, [facility] Stone Right Stent placement [id number] Medical with [employer] Split Group,[facility] Arthroplasty of [id number] torn meniscus Med ical knee<sup>1</sup> Group,[facility] Cholecystectomy [id number] Medica l Group,[facility] Partial gastrectomy [id number] Me dical Group Revision of [id number] Medical gastrojejunostomy Group Small bowel resection [id number] Medical Group Assessment and Plan Assessment and Plan Date Source Extracted from:Title: Surgery Progress Note 05/04/2019 [facility] Author: Niko Huston (Fellow) DO Date: 05/03/19 [...] entered on: 07/10/19 Social History TypeResponse 05/02/2019 [facility] Smoking Status Never smoker; Previous treatment: None; Exposure to Tobacco Smoke None; Cigarette Smoking Last 365 Days No; Reg Smoking Cessation Counseling No entered on: 05/02/19 Family History No Data Provided for This Section Advance Directives No Data Provided for This Section Functional Status No Data Provided for This Section
--- OUTSIDE RECORDS SUMMARY | 2019-09-06 08:05 | XMS REPORT | Continuity of Care Document ---
:1975 Author Organization [facility] t Address [address] [place] [address] Care Team Providers Name Role Phone Lukasz Duran MD Attending Clinician Edmundo Maurer Attending Clinician VISIT, ESTELITA Attending Clinician Unavailable Edmundo Maurer Admitting Clinician Problems Condition Condition Condition Status Onset Resolution Last Treating Co mments Source Name Details Category Date Date Treatment Clinician Date 37224--- Diagnosis Active 2019-05-02 M emoria [place]AT[place] 3-17 15:27[place] [address]--- 00:00: Hitesh n BARIATRIC COMPLICATI 00 SURGE ON OF BARIATRIC SURGE Active 04/25/2019 [facility] REFLUX Diagnosis Active 2019-04-11 Mem oria 2-27 11:36:00 l REFLUX 00:00: Patrick 00 Active 04/06/2019 [facility] KIDNEY Diagnosis Active 2012-09-20 Mem oria STONE 7-12 15:15:00 l KIDNEY 00:00: Dustin STONE 00 Active 08/19/2012 [facility] Herniated Problem Resolve 2012-08-24 M emoria disc d 21:03:13 l Dustin Herniated disc Resolved Problem 08/24/2012 [facility] Pyelonephr Problem Resolve 2012-08-24 Memoria itis d 21:03:13 l Dustin Pyelonephr itis Resolved Problem 08/24/2012 [facility] Interverte Problem Resolve 2019-08-10 Memoria bral disc d 22:24:06 l prolapse Dustin (disorder) Interverte bral disc prolapse (disorder) Resolved Problem 08/10/2019 [facility] Pyelonephr Problem Resolve 2019-08-10 Memoria itis d 22:24:06 l (disorder) Hitesh n Pyelonephr itis (disorder) Resolved Problem 08/10/2019 [facility] Benign Problem Active 2019-08-10 Memor ia essential 22:24:06 l hypertensi Benign Herm david on essential (disorder) hypertensi on (disorder) Active Problem 08/10/2019 [facility] Diabetes Problem Active 2019-08-10 Mem oria mellitus 22:24:06 l (disorder) Diabetes He rmann mellitus (disorder) Active Problem 08/10/2019 [facility] Joint pain Problem Active 2019-08-10 M emoria (finding) 22:24:06 l Joint Dustin pain (finding) Active Problem 08/10/2019 [facility] Morbid Problem Active 2019-08-10 Memor ia obesity 22:24:06 l (disorder) Morbid Herm david obesity (disorder) Active Problem 08/10/2019 [facility] Hypertensi Problem Active 2019-08-10 M emoria ve 22:24:06 l disorder, Patrick systemic Hypertensi arterial ve (disorder) disorder, systemic arterial (disorder) Active Problem 08/10/2019 [facility] CALCULUS Diagnosis Active 2012-09-20 M emoria OF KIDNEY 15:15:00 l CALCULUS Hitesh n OF KIDNEY Active [facility] ILLNESS, Diagnosis Active 2019-05-02 M emoria UNSPECIFIE 15:27:00 l D ILLNESS, Hitesh n UNSPECIFIE D Active [facility] Allergies, Adverse Reactions, Alerts Allergy Allergy Status Severity Reaction(s) Onset Inactive Treating Comm ents Source Name Type Date Date Clinician No Known No Known Active Memori a Medicati Medicati l on on Patrick Allergie Allergie s s Social History Smoking Status Start Date Stop Date Source Social History [facility] Medications Ordered Filled Start Stop Current Ordering Indication Dosage Frequency Signature Comments Components Source Medication Medication Date Date Medication? Clinician (SIG) Name Name remove No Notes: Memoria patch 3-27 Remove old l 14:00: patch Patrick 00 before applicatio n of new patch. scopolamine No Notes: Jhonny ramone 1.5 mg 3-27 Change l transdermal 14:00: patch Nina nn film 00 every 72 hours (Same as: Transderm- Scop) Acetaminoph No Notes: Do M emoria en 3-25 not exceed l 17:45: 4 gm/day. Patrick 00 (Same as: Tylenol) Acetaminoph No Notes: Do M emoria en 325 MG / 3-25 not exceed l Hydrocodone 15:52: 4gm/day of Patrick Bitartrate 00 acetaminop 10 MG Oral hen. Tablet (Same as: [place] 325/10) omeprazole Yes 40 mg = 1 Me moria 40 mg oral 3-25 cap, PO, l delayed 15:46: BID, # 60 Nina nn release 00 cap, 1 capsule Refill(s) Protonix No Notes: For Mem oria 3-25 IV push l 14:00: reconstitu Dustin 00 te with 10 ml 0.9% sodium chloride and push over 2 minutes. (Same as: Protonix) Lisinopril No Notes: Memor ia 3-25 (Same as: l 14:00: Prinivil, Dustin Zestril) Lovenox No Notes: Memoria 3-25 (Same as: l 06:00: Lovenox) Patrick 00 Calcium No 1,000 mL, Memor ia Chloride 3-24 1,000 l 0.0014 22:50: ml/hr, Dustin MEQ/ML / 00 Infuse Potassium Over: 1 Chloride hr, Route: 0.004 IV, 1,000, MEQ/ML / Drug form: Sodium INJ, ONCE, Chloride Priority: 0.103 STAT, MEQ/ML / Dosing Sodium Weight Lactate 102.9 kg, 0.028 Start MEQ/ML date: Injectable 05/02/19 Solution 17:50:00 CDT, Stop date: 05/02/19 17:50:00 CDT, 0 Calcium No 1,000 mL, Memor ia Chloride 3-24 1,000 l 0.0014 22:10: ml/hr, Dustin MEQ/ML / 00 Infuse Potassium Over: 1 Chloride hr, Route: 0.004 IV, 1,000, MEQ/ML / Drug form: Sodium INJ, ONCE, Chloride Priority: 0.103 STAT, MEQ/ML / Dosing Sodium Weight Lactate 102.9 kg, 0.028 Start MEQ/ML date: Injectable 05/02/19 Solution 17:10:00 CDT, Stop date: 05/02/19 17:10:00 CDT, 0 Ofirmev 2019-0 No Notes: Memoria 3-24 Infuse l 22:00: over 15 Patrick 00 minutes Do not exceed 4gm/day of acetaminop hen MEDICATION WASTE Product Size: 1000 mg Product Wasted: ___ mg gabapentin No Notes: Memor ia 800 MG Oral 3-24 (Same as: l Tablet 21:00: Neurontin) Nina tizanidine Yes 6 mg = 1 Mem oria 6 MG Oral 3-24 cap, PO, l Capsule 18:49: Q6H, PRN Hitesh n [Zanaflex] 00 for muscle spasms gabapentin Yes 800 mg = 1 M emoria 800 MG Oral 3-24 tab, PO, l Tablet 18:46: Q8H Patrick 00 72 HR 0 No Notes: Memoria Scopolamine 3-24 Change l 0.0139 18:00: patch Dustin MG/HR 00 every 72 Transdermal hours Patch (Same as: Transderm- Scop) tizanidine No Notes: Memor ia 3-24 (Same As: l 18:00: Zanaflex) Dextrose 2019-0 No 12.5 gm, Memor ia 50% Syringe 3-24 25 mL, l (D50W) 17:52: Route: Dustin 00 IVP, Drug Form: INJ, Dosing Weight 102.9, kg, PRN, PRN Blood Glucose Results, Start date: 05/02/19 12:52:00 CDT, Duration: 30 day, Stop date: 06/01/19 12:51:00 CDT, 0 Glucagon 0 No 1 mg, Memoria 3-24 Route: IM, l 17:52: Drug form: Patrick 00 PDR/INJ, PRN, Dosing Weight 102.9, kg, PRN Blood Glucose Results, Start date: 05/02/19 12:52:00 CDT, Duration: 30 day, Stop date: 06/01/19 12:51:00 CDT, 0 Insulin 2020-0 No Notes: Memoria regular 3-24 (Same as: l 17:52: Humulin R) Patrick Roll in palms of hands gently; Do not shake vigorously . WASTE: F/P - Black; E - Municipal Trash Bin Stable for 31 days at room temperatur e Expires in days from ____Date tramadol 2020-0 No 50 mg = 1 Jhonny ramone hydrochlori 3-24 tab, PO, l de 50 MG 17:52: Q4H, PRN Nina nn Oral Tablet 00 Pain Score 4-6, X 3 day, # 18 tab, 0 Refill(s) Sucralfate 2020-0 Yes 1 gm = 1 Mem oria 1000 MG 3-24 tab, PO, l Oral Tablet 17:52: QID-Before Dustin [Carafate] 00 Meals, crush and mix with 5-10mL water, # 56 tab, 0 Refill(s) omeprazole 2020-0 No 40 mg = 1 Me moria 40 mg oral 3-24 cap, PO, l delayed 17:52: Daily, # Hitesh n release 00 30 cap, 3 capsule Refill(s) ketOROLAC 2020-0 No IV, ONCE Jhonny ramone (ANES) 3-24 l 17:46: Patrick 00 sugammadex 2020-0 No Route: IV, M emoria (ANES) 3-24 Drug form: l 17:46: SOLN, Patrick 00 ONCE, Stop date: 05/02/19 12:46:00 CDT Calcium 2020-0 No 1,000 mL, Memor ia Chloride 3-24 Rate: 150 l 0.0014 17:45: ml/hr, Patrick MEQ/ML / 00 Infuse Potassium over: 6.7 Chloride hr, Route: 0.004 IV, Dosing MEQ/ML / Weight Sodium 102.9 kg, Chloride Total 0.103 Volume: MEQ/ML / 1,000, Sodium Start Lactate date: 0.028 05/02/19 MEQ/ML 12:45:00 Injectable CDT, Solution Duration: 30 day, Stop date: 06/01/19 12:44:00 CDT, 2.3, m2, 0 tramadol 2020-0 No Notes: Not Mem oria hydrochlori 3-24 to exceed l de 50 MG 17:45: 400mg/day. Her reyes Oral Tablet 00 (Same As: Ultram) Dilaudid 2019-0 No Notes: Memoria 3-24 Same as l 17:45: Dilaudid Labetalol 2019-0 No Notes: Memori a 3-24 (Same as: l 17:45: Normodyne, Trandate) Push over 2 minutes Give bolus over 2-3 minutes. Hydralazine 2019-0 No Notes: Jhonny ramone 3-24 (Same as: l 17:45: Apresoline ) Push over 5 minutes Ondansetron 2019-0 No Notes: Jhonny ramone 3-24 (Same as: l 17:45: Zofran) MEDICATION WASTE Product Size: 4 mg Product Wasted: ___ mg Promethazin 2019-0 No 12.5 mg, Me moria e 3-24 50 mL, l 17:45: Route: IVPB, Drug form: SOLN, Q6H, Dosing Weight 102.9, kg, PRN Nausea & Vomiting, Start date: 05/02/19 12:45:00 CDT, Duration: 30 day, Stop date: 06/01/19 12:44:00 CDT, 0 ondansetron 2019-0 No Route: IV, Memoria (ANES) 3-24 Drug form: l 17:35: INJ, ONCE, Stop date: 05/02/19 12:35:00 CDT phenylephri 2019-0 No Route: IV, Memoria ne (ANES) 3-24 Drug form: l 16:24: INJ, ONCE, Stop date: 05/02/19 11:24:00 CDT Calcium 2019-0 No 1,000 mL, Memor ia Chloride -24 Rate: 125 l 0.0014 15:55: ml/hr, MEQ/ML / 00 Infuse Potassium over: 8 Chloride hr, Route: 0.004 IV, Dosing MEQ/ML / Weight Sodium 102.9 kg, Chloride Total 0.103 Volume: MEQ/ML / 1,000, Sodium Start Lactate date: 0.028 05/02/19 MEQ/ML 10:55:00 Injectable CDT, Solution Duration: 30 day, Stop date: 06/01/19 10:54:00 CDT, 2.3, m2, 0 Sodium 2020-0 No 1,000 mL, Memori a Chloride 3-24 Rate: 125 l 0.9% IV 15:55: ml/hr, Dustin 1,000 mL 00 Infuse over: 8 hr, Route: IV, Dosing Weight 102.9 kg, Total Volume: 1,000, Start date: 05/02/19 10:55:00 CDT, Duration: 30 day, Stop date: 06/01/19 10:54:00 CDT, 2.3, m2, 0 Hydralazine 2019- No Notes: Jhonny ramone 3-24 (Same as: l 15:55: Apresoline ) Push over 5 minutes Labetalol No Notes: Memori a 3-24 (Same as: l 15:55: Normodyne, Trandate) Push over 2 minutes Give bolus over 2-3 minutes. Metoprolol No Notes: Memor ia 3-24 (Same as: l 15:55: Lopressor) Push over 2 minutes Acetaminoph No Notes: Max Memoria en 3-24 acetaminop l 15:55: hen 4000 mg/day (4 gm/day). (Same as: Tylenol Extra Strength) Ibuprofen No Notes: Memori a 3-24 (Same as: l 15:55: Motrin) "Do Not Crush" Take with food. Hydromorpho No Notes: Jhonny ramone ne 3-24 Same as l 15:55: Dilaudid Morphine No Notes: Memoria 3-24 (Same l 15:55: as:MORPhin e Sulfate) Flumazenil No Notes: Memor ia 3-24 (Same as: l 15:55: Romazicon) Naloxone 2019-0 No Notes: Memoria 3-24 Same as l 15:55: Narcan Albuterol No Notes: SEE Me moria 0.83 MG/ML 3-24 RT l Inhalant 15:55: DOCUMENTAT Her reyes Solution 00 ION (Same as: Proventil) Diphenhydra No Notes: Jhonny ramone mine 3-24 (Same as: l 15:55: Benadryl) Meperidine No Notes: Memor ia -24 (Same as: l 15:55: Demerol) "Use Precaution in Elderly, Seizure disorders, and Renal impairment " Ondansetron No Notes: Jhonny ramone 3-24 (Same as: l 15:55: Zofran) MEDICATION WASTE Product Size: 4 mg Product Wasted: ___ mg Dexamethaso No Notes: Jhonny ramone ne -24 Concentrat l 15:55: ion: 4mg/ml Promethazin No Notes: Do M emoria e 3-24 not give l 15:55: IV push. (Same as: Phenergan) 72 HR No 1 patch, Memoria Scopolamine 24 Route: l 0.0139 15:55: TOP, Drug Hitesh n MG/HR 00 Form: Transdermal ERFILM, Patch Dosing Weight 102.9, kg, ONCE, Apply behind ear. Avoid use in elderly., Start date: 05/02/19 10:55:00 CDT, Stop date: 05/02/19 10:55:00 CDT Midazolam No Notes: Memori a 3-24 (Same as: l 15:55: Versed) MEDICATION WASTE Product Size: 2 mg Product Wasted: ___ mg ePHEDrine No Route: IV, Me moria (ANES) -24 Drug form: l 15:54: INJ, ONCE, Stop date: 05/02/19 10:54:00 CDT fentaNYL 2019- No Route: IV, Mem oria (ANES) -24 Drug form: l 15:44: INJ, ONCE, Stop date: 05/02/19 10:44:00 CDT lidocaine 2020-0 No Route: IV, Me moria (ANES) - Drug form: l 15:44: INJ, ONCE, Stop date: 05/02/19 10:44:00 CDT propofol 2020-0 No Route: IV, Mem oria (ANES) - Drug form: l 15:44: INJ, ONCE, Stop date: 05/02/19 10:44:00 CDT famotidine 2020-0 No Route: IV, Francine emoria (ANES) - Drug form: l 15:44: INJ, ONCE, Stop date: 05/02/19 10:44:00 CDT rocuronium 2020-0 No Route: IV, Francine emoria (ANES) - Drug form: l 15:39: INJ, ONCE, Stop date: 05/02/19 10:39:00 CDT ceFAZolin 2019-0 No Route: IV, Me moria (ANES) - Drug form: l 15:39: INJ, ONCE, Stop date: 05/02/19 10:39:00 CDT succinylcho 2019-0 No Route: IV, Memoria line (ANES) - Drug form: l 15:39: INJ, ONCE, Stop date: 05/02/19 10:39:00 CDT midazolam 2019-0 No Route: IV, Me moria (ANES) - Drug form: l 15:28: SOLN, 00 ONCE, Stop date: 05/02/19 10:28:00 CDT acetaminoph 2019-0 No Route: IV, Memoria en (ANES) - Drug form: l 10 mg 15:12: INJ, Start Hitesh n 00 date: 05/02/19 10:12:00 CDT, Stop date: 05/02/19 11:12:00 CDT Sodium 2020-0 No Route: IV, Memor ia Chloride 3-24 Total l 0.9% IV 14:48: Volume: Dustin (ANES) 1000 00 1,000, mL Start date: 05/02/19 9:48:00 CDT, Stop date: 05/02/19 10:48:00 CDT Sodium 2020-0 No 1,000 mL, Memori a Chloride 3-24 Rate: 75 l 0.9% IV 14:11: ml/hr, Patrick 1,000 mL 00 Infuse over: 13.3 hr, Route: IV, Dosing Weight 102.9 kg, Total Volume: 1,000, Start date: 05/02/19 9:11:00 CDT, Duration: 30 day, Stop date: 06/01/19 9:10:00 CDT, 2.3, m2, 0 ceFAZolin + No Notes: Jhonny ramone sterile 3-24 (Same As: l water 20 mL 03:00: Ancef, Herm david 00 Kefzol) MEDICATION WASTE Product Size: 1000 mg Product Wasted: ___ mg scopolamine No Notes: Jhonny ramone 3-24 Change l 03:00: patch Patrick 00 every 72 hours (Same as: Transderm- Scop) pantoprazol No 40 mg = 1 M emoria e 40 mg 3-23 tab, PO, l oral 16:16: TID, # 30 Patrick enteric 00 tab, 3 coated Refill(s) tablet gabapentin Yes 800 mg = 1 M emoria 800 MG Oral 2-27 tab, PO, l Tablet 21:27: TID, 0 Dustin 00 Refill(s) Sucralfate 0 Yes 1 gm = 10 Me moria 100 MG/ML 2-27 mL, PO, l Oral 21:27: QID-Before Dustin Suspension 00 Meals, 0 [Carafate] Refill(s) pantoprazol Yes 40 mg = 1 M emoria e 40 mg 2-27 tab, PO, l oral 21:27: Daily, 0 Dustin enteric 00 Refill(s) coated tablet Metformin 0 Yes 1,000 mg = Me moria hydrochlori 2-27 1 tab, PO, l de 1000 MG 21:27: BID, 0 Nina nn Oral Tablet 00 Refill(s) lisinopril Yes 20 mg = 1 Me moria 20 mg oral 2-27 tab, PO, l tablet 21:27: Daily, 0 Patrick 00 Refill(s) Colace 100 2013-0 Yes Martine Ifrah 100 mg, 1 Memoria mg oral 7-15 Canalichio cap, PO, l capsule 13:22: BID, 30 Dustin 02 cap, Substituti on Allowed, CAP [place] Yes Martine Ifrah 1 tab, PO, Memoria 10/325 oral 7-15 Canalichio Q6H, PRN, l tablet 13:21: 15 tab, Patrick 03 Pain, Substituti on Allowed, Maintenanc e, TAB Keflex 500 Yes Martine Ifrah 500 mg, 1 Memoria mg oral 7-15 Canalichio cap, PO, l capsule 13:17: QID, 40 Patrick 38 cap, Substituti on Allowed, CAP Insulin No 4 unit, Memor ia regular 714 Mainor 0.04 mL, l 17:06: Ileana Route: Hitesh n 00 SUB-Q, Drug form: SOLN, Bedtime, Dosing Weight 153.636, kg, PRN Blood Glucose Results, Start date: 08/21/12 12:06:00, Duration: 30 day, Stop date: 09/20/12 12:05:00 glucagon No 1 mg, Memori a 7-14 Mainor Route: IM, l 17:06: Ileana Drug form: He rmann 00 PDR/INJ, PRN, Dosing Weight 153.636, kg, PRN Blood Glucose Results, Start date: 08/21/12 12:06:00, Duration: 30 day, Stop date: 09/20/12 12:05:00 Dextrose No 25 gm, 50 Me moria 50% Syringe 08-21 Mainor mL, Route: l 17:06: Ileana IVP, Drug Her reyes 00 Form: INJ, Dosing Weight 153.636, kg, PRN, PRN Blood Glucose Results, Start date: 08/21/12 12:06:00, Duration: 30 day, Stop date: 09/20/12 12:05:00 bisacodyl 2012- No 10 mg, 1 Me moria 7-14 Mainor supp, l 14:45: Ileana Route: MN, He rmann 00 Drug form: SUPP, Daily, Dosing Weight 153.636, kg, PRN Constipati on, Start date: 08/21/12 9:45:00, Duration: 30 day, Stop date: 09/20/12 9:44:00 Insulin 2012- No 1 unit, Memor ia regular 08-21 Mainor 0.01 mL, l 11:35: Ileana Route: Hitesh n 00 SUB-Q, Drug form: SOLN, TID-Before Meals, Dosing Weight 153.636, kg, PRN Blood Glucose Results, Start date: 08/21/12 6:35:00, Duration: 30 day, Stop date: 09/20/12 6:34:00 glucagon 2012- No 1 mg, Memori a 08-21 Mainor Route: IM, l 11:35: Ileana Drug form: He rmann 00 PDR/INJ, PRN, Dosing Weight 153.636, kg, PRN Blood Glucose Results, Start date: 08/21/12 6:35:00, Duration: 30 day, Stop date: 09/20/12 6:34:00 Dextrose No 25 gm, 50 Me moria 50% Syringe 08-21 Mainor mL, Route: l 11:35: Ileana IVP, Drug Her reyes 00 Form: INJ, Dosing Weight 153.636, kg, PRN, PRN Blood Glucose Results, Start date: 08/21/12 6:35:00, Duration: 30 day, Stop date: 09/20/12 6:34:00 [place] 2012-0 No 1 tab, Memoria 10/325 oral 08-20 Mainor Route: PO, l tablet 23:00: Ileana Drug Form: Patrick 00 TAB, Dosing Weight 153.636, kg, Q6H, Start date: 08/20/12 18:00:00, Duration: 30 day, Stop date: 09/19/12 12:00:00 tizanidine 2012-0 No 8 mg, 2 Me moria 08-20 Mainor tab, l 22:00: Ileana Route: PO, He rmann 00 Drug form: TAB, BID, Dosing Weight 153.636, kg, Start date: 08/20/12 17:00:00, Duration: 30 day, Stop date: 09/19/12 9:00:00 Flexeril 2012-0 No 10 mg, 1 Mem oria 08-20 Mainor tab, l 16:21: Ileana Route: PO, He rmann 00 Drug form: TAB, BID, Dosing Weight 153.636, kg, PRN Spasm, Start date: 08/20/12 11:21:00, Duration: 30 day, Stop date: 09/19/12 11:20:00 Colace 100 2012-0 No 100 mg, 1 Memoria mg oral 08-20 Mainor cap, l capsule 14:00: Route: PO, Patrick 00 Drug form: CAP, BID, Dosing Weight 153.636, kg, Start date: 08/20/12 9:00:00, Duration: 30 day, Stop date: 09/18/12 17:00:00 senna 2012-0 No 8.6 mg, 1 Memor ia 08-20 Mainor tab, l 14:00: Route: PO, He rm Drug Form: TAB, Dosing Weight 153.636, kg, BID, Start date: 08/20/12 9:00:00, Duration: 30 day, Stop date: 09/18/12 17:00:00 [place] 2012-0 No 1 tab, Memoria 10/325 oral 08-20 Mainor Route: PO, l tablet 11:36: Drug Form: TAB, Dosing Weight 153.636, kg, Q6H, PRN Pain, Start date: 08/20/12 6:36:00, Duration: 30 day, Stop date: 09/19/12 6:35:00 Dilaudid 2012-0 No Raheel 1 mg, Memoria 08-20 Ricardo Route: l 07:14: Donnie IVP, ONCE, Hitesh n 00 Dosing Weight 152.273, kg, Priority: STAT, Start date: 08/20/12 2:14:00, Stop date: 08/20/12 2:14:00 Rocephin 2012-0 No Rose 1 gm, Memor ia 08-20 [facility] Route: l 07:00: Ketchandji IVPB, Drug H erm form: PDR/INJ, [id number], Dosing Weight 152.273, kg, Start date: 08/20/12 2:00:00, Duration: 30 day, Stop date: 09/18/12 2:00:00 ondansetron 2013-0 No Gaby 4 mg, Jhonny ramone 08-20 [place] Route: l 06:32: Roselia IVP, ONCE, Herm Dosing Weight 152.273, kg, PRN Nausea & Vomiting, Start date: 08/20/12 1:32:00 naloxone No Raheel 0.04 mg, Jhonny ramone 08-20 Ricardo 0.1 mL, l 06:32: Donnie Route: Patrick IVP, Drug form: INJ, Q2MIN, Dosing Weight 152.273, kg, PRN Narcotic Reversal, Start date: 08/20/12 1:32:00, Duration: 8 doses or times, Stop date: Limited # of times hydromorpho No Gaby 0.5 mg, Me moria ne 08-20 [place] 0.25 mL, l 06:32: Roselia Route: Dustin IVP, Drug form: INJ, Q5Min, Dosing Weight 152.273, kg, PRN Pain Score 7-10, Start date: 08/20/12 1:32:00, Duration: 5 doses or times, Stop date: Limited # of times flumazenil No Raheel 0.2 mg, 2 M emoria 08-20 Ricardo mL, Route: l 06:32: Donnie IVP, Drug Dustin 00 form: INJ, PRN, Dosing Weight 152.273, kg, PRN Benzodiaze pine Reversal, Initial dose, Start date: 08/20/12 1:32:00, Duration: 30 day, Stop date: 09/19/12 1:31:00 Rocephin No Rose 1 gm, Memor ia 08-20 [facility] Route: l 05:00: [place] IVPB, Drug H erm form: PDR/INJ, [id number], Dosing Weight 152.273, kg, Start date: 08/20/12 0:00:00, Duration: 30 day, Stop date: 09/18/12 0:00:00 Dilaudid No Teddy 1 mg, Memori a 08-20 [place] Route: l 03:53: Potter IVP, ONCE, Nina Dosing Weight 152.273, kg, Priority: STAT, Start date: 08/19/12 22:53:00, Stop date: 08/19/12 22:53:00 ciprofloxac 2012- No 400 mg, M emoria in 08-20 Mainor 200 mL, l 03:04: Ileana Route: Hitesh n 00 IVPB, Drug form: INJ, [id number], Dosing Weight 152.273, kg, Priority: STAT, Start date: 08/19/12 22:04:00, Duration: 30 day, Stop date: 09/18/12 10:04:00 morphine 2012- No 2 mg, 1 Jhonny ramone Sulfate 08-20 Mainor mL, Route: l 03:02: Ileana IVP, Drug Her reyes 00 form: INJ, Q2H, Dosing Weight 152.273, kg, PRN Breakthrou gh Pain, Start date: 08/19/12 22:02:00, Duration: 30 day, Stop date: 09/18/12 22:01:00 omega-3 2012- Yes 1,000 mg, Memor ia polyunsatur 08-20 1 cap, PO, l ated fatty 03:01: BID, Patrick acids 1000 23 Substituti mg oral on Allowed capsule Unknown Yes fenugreek Memor ia Home 08-20 herbal l Medication 03:00: supplement H ermann 17 - 1 tab po daily, Substituti on Allowed multivitami Yes 1 tab, PO, Memoria n -13 Daily, l 03:00: Substituti Patrick 00 on Allowed, Maintenanc e ibuprofen Yes 800 mg, 1 Mem oria 800 mg oral -13 tab, PO, l tablet 02:59: TID, PRN, Hitesh n 48 270 tab, as needed for pain, Substituti on Allowed, TAB tizanidine 2012- Yes 8 mg, 2 Jhonny ramone 4 mg oral 7-13 tab, PO, l tablet 02:59: BID, 180 Patrick 33 tab, Substituti on Allowed, TAB tramadol 50 2012- Yes 50 mg, 1 Me moria mg oral -13 tab, PO, l tablet 02:59: BID, PRN, Hitesh n 09 40 tab, Pain, Substituti on Allowed, TAB Flexeril 10 Yes 10 mg, 1 Me moria mg oral 08-20 tab, PO, l tablet 02:58: BID, PRN, Hitesh n 57 30 tab, for spasm, Substituti on Allowed, TAB Vicodin HP Yes 1 tab, PO, M emoria 660 mg-10 08-20 TID, PRN, l mg oral 02:58: for pain, Nina nn tablet 42 Substituti on Allowed, Maintenanc e, TAB NS 1,000 mL No 1,000 mL, Memoria 08-20 Mainor Rate: 42 l 01:53: Ileana ml/hr, Hitesh n 00 Infuse over: 23.8 hr, Route: IV, Dosing Weight 152.273 kg, Total Volume: 1,000, Start date: 08/19/12 20:53:00, Stop date: 09/18/12 20:52:00 acetaminoph No Oswald 650 mg, M emoria en 08-20 [place] Route: PO, l 00:45: Hoot ONCE, Dustin Dosing Weight 152.273, kg, Priority: STAT, Start date: 08/19/12 19:45:00, Stop date: 08/19/12 19:45:00 Dilaudid No Oswald 1 mg, Memori a 08-20 [place] Route: IV, l 00:37: Hoot ONCE, Dustin 00 Dosing Weight 152.273, kg, Start date: 08/19/12 19:37:00, Stop date: 08/19/12 19:37:00 Toradol 30 No Oswald 30 mg, Mem oria mg/mL 08-20 [place] Route: IV, l injectable 00:37: Hoot ONCE, Hitesh n solution Dosing Weight 152.273, kg, Start date: 08/19/12 19:37:00, Stop date: 08/19/12 19:37:00 Vital Signs Vital Name Observation Time Observation Value Comments Source Height 2019-07-10 14:25:00 182.88 cm [facility] Weight 2019-07-10 14:25:00 [facility] BMI Calculated 2019-07-10 14:25:00 Jesus Alberto shell Dustin Height 2019-05-11 13:32:00 182.88 cm [facility] 2019-05-11 13:32:00 [facility] Dustin BMI Calculated 2019-05-11 13:32:00 Memori al Patrick Temperature Oral (F) 2019-05-03 21:51:00 97.7 F [facility] Patrick Heart Rate 2019-05-03 21:51:00 [facility] Dustin Respitory Rate 2019-05-03 21:51:00 Memori al Patrick Systolic (mm Hg) 2019-05-03 21:51:00 Jhonny rial Dustin Diastolic (mm Hg) 2019-05-03 21:51:00 [facility] Temperature Oral (F) 2019-05-03 16:13:00 98.3 F [facility] Heart Rate 2019-05-03 16:13:00 [facility] Respitory Rate 2019-05-03 16:13:00 [facility] Systolic (mm Hg) 2019-05-03 16:13:00 [facility] Diastolic (mm Hg) 2019-05-03 16:13:00 [facility] Temperature Oral (F) 2019-05-03 12:35:00 98.2 F [facility] Heart Rate 2019-05-03 12:35:00 [facility] Respitory Rate 2019-05-03 12:35:00 [facility] Systolic (mm Hg) 2019-05-03 12:35:00 [facility] Diastolic (mm Hg) 2019-05-03 12:35:00 [facility] Height 2019-05-01 16:17:00 182.88 cm [facility] Weight 2019-05-01 16:17:00 [facility] BMI Calculated 2019-05-01 16:17:00 [facility] Height 2019-04-11 18:01:00 182.88 cm [facility] Weight 2019-04-11 18:01:00 [facility] BMI Calculated 2019-04-11 18:01:00 [facility] Systolic (mm Hg) 2019-04-06 21:23:00 [facility] Diastolic (mm Hg) 2019-04-06 21:23:00 [facility] Heart Rate 2019-04-06 21:23:00 [facility] Height 2019-04-06 21:23:00 182.88 cm [facility] Weight 2019-04-06 21:23:00 [facility] BMI Calculated 2019-04-06 21:23:00 [facility] Diastolic (mm Hg) 2012-08-22 13:15:00 [facility] Systolic (mm Hg) 2012-08-22 13:15:00 [facility] Heart Rate 2012-08-22 13:15:00 [facility] Respitory Rate 2012-08-22 13:15:00 [facility] Temperature Oral (F) 2012-08-22 13:15:00 98.0 F [facility] Diastolic (mm Hg) 2012-08-22 10:15:00 [facility] Systolic (mm Hg) 2012-08-22 10:15:00 [facility] Respitory Rate 2012-08-22 10:15:00 [facility] Temperature Oral (F) 2012-08-22 10:15:00 97.7 F [facility] Heart Rate 2012-08-22 10:15:00 [facility] Diastolic (mm Hg) 2012-08-22 04:52:00 [facility] Dustin Respitory Rate 2012-08-22 04:52:00 [facility] Systolic (mm Hg) 2012-08-22 04:52:00 Jhonny rial Dustin Heart Rate 2012-08-22 04:52:00 [facility] Temperature Oral (F) 2012-08-22 04:52:00 97.8 F [facility] Dustin Height 2012-08-20 08:41:00 189.23 cm [facility] Weight 2012-08-20 08:41:00 [facility] Weight 2012-08-19 23:04:00 [facility] 2012-08-19 23:04:00 187.96 [facility] Procedures Procedure Date / Time Performing Clinician Source Performed [facility] operation [facility] Right Retrograde pyelogram [facility] with Abtracting Uterry Stone Right Stent placement with [facility] Durcel Split [facility] of [facility] Gastric bypass operation [facility] Right Retrograde pyelogram [facility] with Abtracting Uterry Stone Right Stent placement with [facility] Durcel Split [facility]<sup>1</sup> Cholecystectomy [facility] Dustin Partial gastrectomy [facility] Revision of [facility] gastrojejunostomy Small bowel resection [facility] Encounters Start End Encounter Admission Attending Care Care Encounter Source Date/Time Date/Time Type Type Clinicians Facility Department ID 2019-05-[address] [facility] [id number] Mem oria 07:39:00 [facility] 2019-08-07 2019-08-08 Outpatient [facility] [id number] 15:15:59 15:15:59 03 2019-08-07 2019-08-08 Outpatient [facility] [id number] 09:20:22 09:20:22 02 2019-07-20 2019-07-20 [id number] 00:00:00 00:00:00 Lukasz Hoyos [facility] [id number] Surgical 4.2.7.2.686 Specialti [id number] es [address] 2019-07-10 2019-07-10 Outpatient Erasto, [facility] [id number] 09:45:00 23:59:59 Jim Wyatt 2019-07-06 2019-07-06 Telephone [facility] [id number] 00:00:00 00:00:00 Lukasz Hoyos [facility] [id number] Surgical 4.2.7.2.686 Specialti [id number] es [address] 2019-07-04 2019-07-04 [facility] [id number] 00:00:00 00:00:00 Lukasz Hoyos [facility] [id number] Surgical 4.2.7.2.686 Specialti [id number] es [address] [place] 2019-06-29 2019-06-29 [facility] [id number] 08:56:15 09:22:49 Visit Lukasz Hoyos [facility] [id number] Surgical 4.2.7.2.686 Specialti [id number] es [address] 2019-06-16 2019-06-16 Outpatient VISIT, [facility] [id number] 10:00:00 23:59:59 MANAGER DIVISION 02 MPB 2019-05-11 2019-05-11 Outpatient Primomo, [facility] [id number] 09:00:00 23:59:59 Jim 01 Edmundo 2019-05-02 2019-05-03 Outpatient Primomo, [facility] [id number] 07:39:00 19:00:00 Jim Carr Edmundo 2019-04-11 2019-04-11 Outpatient Primomo, [facility] [id number] 11:28:00 14:50:00 Jim 00 Edmundo 2019-04-11 2019-04-[address] [facility] [id number] Memoria 11:28:00 11:28:00 l [facility] 2019-04-06 2019-04-06 Outpatient Primomo, [facility] [id number] 14:30:00 23:59:59 Jim Wyatt Results Test Description Test Time Test Comments Results Result Comments Source HEMATOLOGY 2019-05-03 9.0 [facility] nn 16:41:00 CHEM PANEL 2019-05-03 173 [facility] nn 09:09:00 CHEM PANEL 2019-05-03 19 [facility] nn 09:09:00 CHEM PANEL 2019-05-03 1.10 [facility] nn 09:09:00 CHEM PANEL 2019-05-03 138 [facility] nn 09:09:00 CHEM PANEL 2019-05-03 5.0 [facility] nn 09:09:00 CHEM PANEL 2019-05-03 111 [facility] nn 09:09:00 CHEM PANEL 2019-05-03 19 [facility] nn 09:09:00 CHEM PANEL 2019-05-03 8.4 [facility] nn 09:09:00 CHEM PANEL 2019-05-03 13.0 [facility] nn 09:09:00 CHEM PANEL 2019-05-03 81 [facility] nn 09:09:00 HEMATOLOGY 2019-05-03 68.9 [facility] nn 09:09:00 HEMATOLOGY 2019-05-03 23.8 [facility] nn 09:09:00 HEMATOLOGY 2019-05-03 6.1 [facility] nn 09:09:00 HEMATOLOGY 2019-05-03 1.1 [facility] nn 09:09:00 HEMATOLOGY 2019-05-03 0.1 [facility] nn 09:09:00 HEMATOLOGY 2019-05-03 4.6 [facility] nn 09:09:00 HEMATOLOGY 2019-05-03 1.6 [facility] nn 09:09:00 HEMATOLOGY 2019-05-03 0.4 [facility] nn 09:09:00 HEMATOLOGY 2019-05-03 0.1 [facility] nn 09:09:00 HEMATOLOGY 2019-05-03 6.7 [facility] nn 09:09:00 HEMATOLOGY 2019-05-03 2.86 [facility] nn 09:09:00 HEMATOLOGY 2019-05-03 8.6 [facility] nn 09:09:00 HEMATOLOGY 2019-05-03 27.1 [facility] nn 09:09:00 HEMATOLOGY 2019-05-03 95.0 [facility] Nina nn 09:09:00 HEMATOLOGY 2019-05-03 09:09:00 Test Item Value Reference Range Interpretation Comme nts MCH (test code = MCH) 30.2 pg 27.0-31.0 [facility] UethgtmZJBDPASYIT9146-26-06 09:09:0031.8[facility] HermannHEMATOLOGY 2019-05-03 09:09:0016.5[facility] CcwxrctSNRRIKOINH7655-47-26 09:09:80826Kicwbgzs XlskqfpPXNTXQTQSG6413-12-89 09:09:008.3[facility] VjjplpnWJUZBDFUHI3320-17-48 04:40:009.3[facility] ZrldrsgSEQUEXEKHW6406-69-89 23:19:0033.0[facility] BLOOD BANK EBFWOAP2288-89-19 13:55:00Negative (05/02/19 8:55 AM)[facility] CHEM INYKF8265-55-45 13:55:01218.8[facility] HermannCHEM UCCSE8162-64-32 13:55:00 70.5[facility] EnrwmsxVLHXPDIWLL0091-41-29 13:55:005.7[facility] HermannHEMATOLOGY 2019-05-02 13:55:003.94[facility] YfqkcdaJOCGYMJCZG0423-83-02 13:55:0036.9[facility] SvqqpaeRDAIWTTFTJ6187-99-40 13:55:0093.6[facility] HgvcqayGHYKZVIXQG6082-41-57 13:55:00 Test Item Value Reference Range Interpretation Comments MCH (test code = MCH) 30.6 pg 27.0-31.0 [facility] MjzjmmgHYLOSUYBVK5019-46-44 13:55:0032.7[facility] HermannHEMATOLOGY 2019-05-02 13:55:0016.5[facility] RfrzakmIQKJOVJWPQ6836-56-93 13:55:55696Cjrdtqyz UbvfjfhQWSCIFXOXH9516-82-55 13:55:007.8[facility] KhgcbfdNXFPFHYZUA1067-74-69 13:55:00 Test Item Value Reference Range Interpretation Comments PT (test code = PT) 12.2 s 12.0-14.7 [facility] DnwsrvmALJCJVRQPN2524-91-73 13:55:00 Test Item Value Reference Range Interpretation Comments INR (test code = INR) 0.91 1 0.85-1.17 [facility] ArpddwiPWBUHJUSSX6152-64-34 13:55:00 Test Item Value Reference Range Interpretation Comments PTT (test code = PTT) 26.7 s 22.9-35.8 [facility] AmpbamrIVTZOKUBOL0810-03-28 13:55:0052.1[facility] HermannHEMATOLOGY 2019-05-02 13:55:0037.6[facility] BkmcoroQABAVKJNVG1483-32-40 13:55:006.5[facility] UyfdrqvKSCPNWQMBW8335-46-18 13:55:003.5[facility] MtxzennFTFALNFFJO4416-70-56 13:55:000.3[facility] PncfznkGFOEWRQHUG5894-20-06 13:55:003.0[facility] WBMTDNEYKS2607-14-71 13:55:002.1[facility] PxrycyiIIXVTXWEFM2860-67-63 13:55:000.4 [facility] NuauztdJIXQWTINQT3435-53-56 13:55:000.2[facility] HermannURINE AND STOOL 2019-05-02 13:45:00Clear (05/02/19 8:45 AM)[facility]ann[facility]INE AND STOOL 2019-05-02 13:45:00 Test Item Value Reference Range Interpretation Comments UA Spec Grav (test code = UA Spec 1.009 1 Grav) [facility] AND WSZEM2242-10-24 13:45:00 Test Item Value Reference Range Interpretation Comments UA pH (test code = UA pH) 5.0 1 5.0-8.0 [facility] AND ULBMT6885-89-60 13:45:00Negative *NA*(05/02/19 8:45 AM) [facility] CKDPY5786-66-66 13:45:00Negative (05/02/19 8:45 AM) [facility] ULVNG0835-15-37 13:45:00Negative (05/02/19 8:45 AM) [facility] SDVFA1165-22-93 13:45:00Negative (05/02/19 8:45 AM) [facility] AND YYVHD9139-62-05 13:45:00Not Indicated *NA*(05/02/19 8:45 AM)[facility] IyyxkptJYWPJVFERHGQ6230-24-43 18:23:80702Ywkoccfm Dustin KUCJGMGURCDW8111-16-28 18:23:003.8[facility] CpcilsoLZZVRMNEYWJA0344-88-14 18:23:0092[facility] AuxfwzdOVTMLXRPIYCN2764-26-16 18:23:0010.5[facility] YHAKOISEXZRJ5186-88-28 18:23:0031.0[facility] HermannBEDSIDE GLUCOSE TESTING 2012-08-22 12:59:65462Rhrbfpop YnookqoBMTNWCNIY0908-66-06 10:15:0014.8[facility] XwfhxlxMACQTKCGA0166-66-51 10:15:0069[facility] DteaasiDJLKBOSCK4099-93-43 10:15:008.0[facility] JfnasapDAFZHSYTI3560-06-52 10:15:64665Lbfsgzkh Patrick SNYDAELIP4137-98-28 10:15:0024[facility] IvbsvfdYSYJOVPNO6144-34-22 10:15:003.8 [facility] WfueqzdROVGRKKCL4544-13-94 10:15:92125Vttotmze HermannCHEMISTRY 2012-08-22 10:15:001.3[facility] ShqxgvnSRYDUZYGN2630-37-90 10:15:0022[facility] KukfsexWIFDZUBWB9833-29-76 10:15:60750Pleevqpg IpcgglxDWBLEPUREP8942-64-63 10:15:21831Vekcryev HagqhcuXRIYMQAJHE5934-92-07 10:15:0015.1[facility] MSTFMLONGT3408-51-18 10:15:0033.6[facility] IewpkbxSEOAZQUVKS8348-16-47 10:15:00 Test Item Value Reference Range Interpretation Comments MCH (test code = MCH) 28.5 pg 27.0-31.0 N [facility] LdtdkalBRINNDAJNO7757-72-64 10:15:0084.8[facility] HermannHEMATOLOGY 2012-08-22 10:15:0030.7[facility] FqeilmcFZIFISNTTP4041-61-14 10:15:0010.3[facility] GfxlnrvNXCRZVVGHU9147-83-52 10:15:009.1[facility] HfrpsoqLXDZTNCDPX3266-76-31 10:15:003.62[facility] NkpcwqhAJFCVNIWUI4238-38-74 10:15:007.6[facility] TNOQUIJINN3598-04-06 10:15:001.0[facility] VfqdsvmDARGRBMTGE6862-51-20 10:15:005.5 [facility] IoxaurjQFJCCJRYIE4383-25-65 10:15:001.0[facility] HermannHEMATOLOGY 2012-08-22 10:15:000.1[facility] UfmucjjURSOYRKYAG0319-86-86 10:15:000.3[facility] HmkvzbuHECBUIUPGI7851-67-73 10:15:001.1[facility] IisoqyrFCAOIQTROC1775-81-81 10:15:0013.1[facility] SauwvmmOAUICBPGFJ7316-22-92 10:15:0013.2[facility] HJBVLGVXJB6776-44-55 10:15:0072.3[facility] HermannBEDSIDE GLUCOSE TESTING 2012-08-22 01:25:41042Lasvcrnd HermannBEDSIDE GLUCOSE STKAVRL5084-96-26 21:35:00 168[facility] KztciovVYXCUCEQR5108-47-39 07:31:1776[facility] HermannCHEMISTRY 2012-08-21 07:31:171.2[facility] BgkpnreSPRGCEQUC8978-35-57 07:31:1716[facility] FhgqmokINOKDKOYG7944-26-61 07:31:48442Onzmqgtp HwryyvbEZJFBZZTV6739-36-19 07:31:173.6[facility] TmogzpsHWMWVOUDL6425-61-31 07:31:12947Btfaxtie Dustin LPTHKJKSN6439-79-85 07:31:28097Oevsaczd HcvzdhcKXVKWKJGP2422-11-43 07:31:178.0 [facility] IcbealqLYJYEBFLT7472-55-07 07:31:1724[facility] HermannCHEMISTRY 2012-08-21 07:31:1714.6[facility] PsisjcyGNOBHZWAAB8540-10-23 07:31:1732.6[facility] YolezmeCTANYZOTOQ0018-49-56 07:31:1715.3[facility] KmytegrLCKSLEOSNW1209-45-21 07:31:1730.0[facility] WjjuifvEENRYTAIQC7669-20-79 07:31:1786.0[facility] IZHFVGRAAT8448-93-40 07:31:17 Test Item Value Reference Range Interpretation Comments MCH (test code = MCH) 28.0 pg 27.0-31.0 N [facility] JsshgwjNIRVRORXXK8941-80-10 07:31:179.2[facility] HermannHEMATOLOGY 2012-08-21 07:31:96948Dcndseow MrlwkpxCRASEPERZY1911-55-07 07:31:1715.8[facility] DlcemxpRHOMJTVPWW2878-99-95 07:31:173.49[facility] AbtimnuIHMIVVXEGW9297-60-65 07:31:179.8[facility] HfraahcWPHDRDHPTN4501-38-20 07:31:1788.7[facility] ERHUFNGBAU7761-62-47 07:31:176.5[facility] KybutijOKGTYGYYOW9988-05-56 07:31:174.5 [facility] VkqdfwnKHYOFXCKAA6479-70-94 07:31:170.2[facility] HermannHEMATOLOGY 2012-08-21 07:31:1714.0[facility] HlxmnxdNJMCVXIRTF0998-27-88 07:31:170.1[facility] GrrocrqNWQHPYKTUB9769-47-16 07:31:170.7[facility] QwnmmpvHPGWVEZVXU8872-73-63 07:31:171.0[facility] HbuuyzxEDAXNNALO2902-48-21 10:30:0069[facility] OZYWYBQYO9571-19-45 10:30:02482Ozwodeqd RgqhgmoCQXOPMIFH2967-77-69 10:30:007.6 [facility] SszqrsiBVJMZCWVF2538-71-74 10:30:0017.8[facility] HermannCHEMISTRY 2012-08-20 10:30:0021Mem[facility] BwdmvqwJLEBQDYEW4161-67-81 10:30:66441Ogkuqhqi AbsuozhWYRFTXVBR9728-44-30 10:30:0014Mem[facility] WhkziywGTYKCVWNR7258-51-00 10:30:003.8[facility] KjujugjCEANQOQDF6550-69-13 10:30:001.3[facility] SKWAMBHRB1914-75-26 10:30:96698Pomvsjtw RnsfvyjZKKABPIJIU8392-04-67 10:30:00 Normal (08/20/2012 05:30:00)[facility] VacvqkuQGJQLUVJSO4677-31-36 10:30:00 Test Item Value Reference Range Interpretation Comments Tot Cell Ct (test code = Tot Cell Ct) 100 1 [facility] BcfhzxmETCSMSSQAK1751-15-40 10:30:0065.0[facility] HermannHEMATOLOGY 2012-08-20 10:30:0028.0[facility] KocksvdUWOBXFLMYH6115-14-77 10:30:000.2[facility] AcfjaerSWHRLAWIHQ2956-68-39 10:30:00Normal (08/20/2012 05:30:00)[facility] QCHBLQJHAV8215-49-07 10:30:000.0[facility] IcuvljwFWQSIWUWAJ3004-79-19 10:30:001.0 [facility] FldxujcJMCMTGZCJQ9846-85-13 10:30:001.0[facility] HermannHEMATOLOGY 2012-08-20 10:30:005.0[facility] UmivsukNOREIYQFRA9244-81-37 10:30:001.2[facility] BcpiuovCPTLSNKRHS4406-96-68 10:30:0023.1[facility] RfcctsqLMGMATZJBT4515-32-08 10:30:0032.3[facility] LhdjzjeEYEWWUZSME4150-42-36 10:30:0015.0[facility] NSBTWSDHCS3274-16-59 10:30:0010.3[facility] OhkotxbCDUWJQKMMO5467-58-32 10:30:00 3.67[facility] FtuvkbxGUXCLHFBZA4505-95-44 10:30:0024.8[facility] HermannHEMATOLOGY 2012-08-20 10:30:0086.5[facility] XxjwkpfCNRTOERJKX6478-25-12 10:30:00 Test Item Value Reference Range Interpretation Comments MCH (test code = MCH) 27.9 pg 27.0-31.0 N [facility] GnkvsoyKPGESQEAZU6260-85-68 10:30:0031.8[facility] HermannHEMATOLOGY 2012-08-20 10:30:009.2[facility] MndfhtlZHIVXJMBTN1853-47-58 10:30:66169Dlpugytw WuyjghxMWXWSIPDU4774-96-38 08:00:001.4[facility] FakfunaGNKXEWGCO8776-92-09 08:00:002.8[facility] HermannBLOOD BANK MMFTKPX6951-66-99 02:20:00Negative (08/19/2012 21:20:00)[facility] YdykdibCLFEWFTKS5954-22-47 02:20:003.6[facility] HeegogzSHLIMWSTA5483-43-32 02:20:003.5[facility] KlqcyicHEXXKXPOH3830-40-03 02:20:000.9[facility] XrwcfvqIPIXXVMBV5497-24-91 02:20:000.8[facility] MLRAGMYLV6295-57-87 02:20:003.2[facility] JhqefewKGNCHFCDZ2297-69-47 02:20:0038 [facility] CeholudZJWZYDALO2208-68-82 02:20:006.7[facility] HermannCHEMISTRY 2012-08-20 02:20:86944Papezsep UuxhuezDIOQIWPMF5793-98-67 02:20:001.0[facility] ZclrjxfXYPLHSWPB8238-19-07 02:20:0037[facility] FvknleyFYQNUVUTV2497-33-95 02:20:000.2[facility] WykpoucUBGXIMHRBO6051-77-94 02:20:00Slight *ABN*(08/19/2012 21:20:00)[facility]LhhchpoTUYKQQYWYK4344-39-69 02:20:000.[facility] HULNQUECZV4187-68-30 02:20:00Slight *ABN*(08/19/2012 21:20:00)[facility] YCCCLFZIHV2225-71-09 02:20:00Slight *ABN*(08/19/2012 21:20:00)[facility] MXSCNXMSCM1128-13-87 02:20:00Slight *ABN*(08/19/2012 21:20:00)[facility] TVQZXQKIWH0627-06-59 02:20:001+ *ABN*(08/19/2012 21:20:00)[facility] TALXPDERDU3997-60-68 02:20:00 Test Item Value Reference Range Interpretation Comments Tot Cell Ct (test code = Tot Cell Ct) 200 1 [facility] CenterZpusovmLQAIEFVYOW1103-24-61 02:20:00Slight (08/19/2012 21:20:00) [facility] CenterYejmofvMQHPIZJCJO8959-40-25 02:20:001+ *ABN*(08/19/2012 21:20:00) [facility] CenterIqnmunzTHNMBNAKFJ8850-49-85 02:20:00Slight (08/19/2012 21:20:00) [facility] CypressYgzbuswJXLSNVYRSG6291-02-05 02:20:0021.0[facility] 2012-08-20 02:20:001.30[facility] CenterQktbarsYXJYWRGOMT7155-37-32 02:20:00 Test Item Value Reference Range Interpretation Comments PT (test code = PT) 16.4 s 12.0-14.7 H [facility] CypressXmpvrfgMMXFYTYXBJ3633-25-43 02:20:00 Test Item Value Reference Range Interpretation Comments PTT (test code = PTT) 33.2 s 22.9-35.8 N [facility] CypressYoqqrleUITWWNVEJH1887-86-09 23:27:006-10 /HPF *ABN*(08/19/2012 18:27:00)[facility]ressUiwjjhbCFAINIOTZF0257-23-58 23:27:00None Seen (08/19/2012 18:27:00)[facility] CypressLwydabvMMNKTHPTBI1764-48-88 23:27:00Few /HPF (08/19/2012 18:27:00)[facility] CenterZanpzsaOUVYKTGKUX6831-92-52 23:27:00>100 /HPF *ABN*(08/19/2012 18:27:00)[facility] CenterDdlhajtCYHQLKZTNO0595-04-44 23:27:00Performed (08/19/2012 18:27:00)[facility] CenterPlpgysyBUHOIAZHPT8457-27-13 23:27:0030 mg/dL *ABN*(08/19/2012 18:27:00)[facility] CenterJylhwllYKEXIHPKAR2134-61-10 23:27:00Negative (08/19/2012 18:27:00)[facility] CenterCsuwrgoTHKOVOTVLW2713-34-68 23:27:00 Test Item Value Reference Range Interpretation Comments UA pH (test code = UA pH) 5.5 1 5.0-8.0 N [facility] CenterClnoxttTJQXXAZFQW5978-98-01 23:27:00Negative *NA*(08/19/2012 18:27:00) [facility] CenterRwhtlxmPMTRIIVLLV4210-70-41 23:27:00Negative *NA*(08/19/2012 18:27:00) [facility] CenterJimybfsBZYOPSLTMM8218-84-25 23:27:00Yellow *NA*(08/19/2012 18:27:00) [facility] CenterUklisynVTVRJEPVHS9644-95-09 23:27:00Slight Cloudy (08/19/2012 18:27:00) [facility] CenterMfljdgmDGOZXJFMVN8553-37-07 23:27:00 Test Item Value Reference Range Interpretation Comments UA Spec Grav (test code = UA Spec 1.020 1 N Grav) [facility] CenterStejdfvIJUKHZVPFX7124-81-98 23:27:00Negative (08/19/2012 18:27:00) [facility] CenterValybekBNHQYFNYNR0044-34-86 23:27:00Small *ABN*(08/19/2012 18:27:00) [facility] CenterQfkgzvtVSDFTXCLON2051-46-79 23:27:00Large *ABN*(08/19/2012 18:27:00) [facility] CenterPbmttwfITQCTGHMXR7336-89-14 23:27:000.2[facility]
[2019-09-06 08:12] VITALS: BP 146/87; TEMP 97; O2SAT 100; BMI 28.2
== END 2019-09-06 09:15 | disposition home or self-care (01) ==
LOC: DS 07:30
PROVIDERS: ATTEND Internal Medicine Nephrology
DX: E27.40 Unspecified adrenocortical insufficiency (principal); E83.42 Hypomagnesemia; N18.3 Chronic kidney disease, stage 3 (moderate); E11.22 Type 2 diabetes mellitus with diabetic chronic kidney disease; I12.9 Hypertensive chronic kidney disease with stage 1 through stage 4 chronic kidney disease, or unspecified chronic kidney disease; N18.4 Chronic kidney disease, stage 4 (severe); N17.9 Acute kidney failure, unspecified; R60.9 Edema, unspecified; E87.70 Fluid overload, unspecified; E11.42 Type 2 diabetes mellitus with diabetic polyneuropathy; E61.1 Iron deficiency; N20.0 Calculus of kidney
CPT/HCPCS: 36415; 82533 ×4; 82024; 96372; J0834

== ENCOUNTER 2019-09-18 07:47 | Emergency (ER) | payer BC ==
--- OUTSIDE RECORDS SUMMARY | 2019-09-18 07:54 | XMS REPORT | Continuity of Care Document ---
:1975 Author Organization [facility] t Address [address] [place] [address] Care Team Providers Name Role Phone Lukasz Duran MD Attending Clinician Problems This patient has no known problems. Allergies, Adverse Reactions, Alerts This patient has no known allergies or adverse reactions. Medications This patient has no known medications. Procedures This patient has no known procedures. Encounters Start End Encounter Admission Attending Care Care Encounter Source Date/Time Date/Time Type Type Clinicians Facility Department ID 2019-05-02 Inpatient [facility] 7501 Mem oria 07:39:00 fitz Nguyen [facility] 2019-07-20 2019-07-20 Telephone [facility] [id number] 00:00:00 00:00:00 Lukasz Hoyos 4vets [id number] Surgical 4.2.7.2.686 Specialti [id number] [address] 2019-07-06 2019-07-06 Telephone [facility] [id number] 00:00:00 00:00:00 Lukasz [facility] [id number] Surgical 4.2.7.2.686 Specialti [id number] es [address] 2019-07-04 2019-07-04 Telephone [facility] [id number] 00:00:00 00:00:00 Lukasz [facility] [id number] Surgical 4.2.7.2.686 Specialti [id number] es [address] 2019-06-29 2019-06-29 Office Roger [place] [id number] 08:56:15 09:22:49 Visit [facility] [id number] Surgical 4.2.7.2.686 Specialti [id number] es [address] 2019-04-11 2019-04-[address] 11:28:00 11:28:00 fitz Nguyen [facility] l Results This patient has no known results.
[2019-09-18] MEDS ORDERED: NA CHLORIDE 0.9% 1,000 ML ONE (09:07)
[2019-09-18] MEDS ORDERED: ACETAMINOPHEN 500 MG TAB ONE (10:11)
--- NOTE | 2019-09-18 11:05 | ER ---
Nurse's Notes [facility] Name: Rhett Ayers Age: 43 yrs Sex: Male : 1975 Arrival Date: 09/18/2019 Time: 07:48 Bed 4 Private MD: Diagnosis: Near syncope;Urinary tract infection, site not specified Presentation: 09/17 07:55 Chief complaint: Patient states: Dizziness, headache and low blood sugar that began ss last night. Coronavirus screen: Client denies travel out of the [place] in the last 14 days. At this time, the client does not indicate any symptoms associated with coronavirus-19. Ebola Screen: Patient denies exposure to infectious person. Patient denies travel to an Ebola-affected area in the 21 days before illness onset. Initial Sepsis Screen: Does the patient meet any 2 criteria? No. Patient's initial sepsis screen is negative. Does the patient have a suspected source of infection? No. Patient's initial sepsis screen is negative. Risk Assessment: Do you want to hurt yourself or someone else? Patient reports no desire to harm self or others. Onset of symptoms was September 17, 2019. 07:55 Method Of Arrival: Ambulatory ss 07:55 Acuity: SANTIAGO 3 ss Historical: - Allergies: 08:00 No Known Allergies; ss - PMHx: 08:00 compressed discs; Diabetes - NIDDM; Hypertension; Orthostatic hypotension; PUD; ss - Immunization history:: Adult Immunizations up to date. - Social history:: Smoking status: Patient denies any tobacco usage or history of. - Family history:: not pertinent. - Hospitalizations: : No recent hospitalization is reported. Screenin:30 Nutritional screening: No deficits noted. Tuberculosis screening: No symptoms or risk jr10 factors identified. Fall Risk No fall in past 12 months (0 pts). No secondary diagnosis (0 pts). IV access (20 points). Ambulatory Aid- None/Bed Rest/Nurse Assist (0 pts). Gait- Normal/Bed Rest/Wheelchair (0 pts) Mental Status- Oriented to own ability (0 pts). 09:35 Abuse screen: Denies threats or abuse. Denies injuries from another. jr10 Assessment: 09:00 General: Appears in no apparent distress. Behavior is calm, cooperative, appropriate jr10 for age. Pain: Complains of pain in generalized WATSON pain. Neuro: Level of Consciousness is awake, alert, obeys commands, Oriented to person, place, time, situation, Appropriate for age. Neuro: Reports dizziness, since this morning when he noticed his BG was low. Pt report BG at 50, reports drinking OJ and eating a star crunch and several popsicle's doll wig maker. Pt BG noted to be 90 upon arrival. Cardiovascular: No deficits noted. Denies chest pain, Rhythm is sinus bradycardia. Respiratory: No deficits noted. Airway is patent Respiratory effort is even, unlabored, Respiratory pattern is regular, symmetrical, Breath sounds are clear bilaterally. Denies cough, shortness of breath. GI: No deficits noted. No signs and/or symptoms were reported involving the gastrointestinal system. : No deficits noted. No signs and/or symptoms were reported regarding the genitourinary system. EENT: No deficits noted. No signs and/or symptoms were reported regarding the EENT system. Derm: No deficits noted. No signs and/or symptoms reported regarding the dermatologic system. Musculoskeletal: No deficits noted. No signs and/or symptoms reported regarding the musculoskeletal system. 10:00 Reassessment: Patient and/or family updated on plan of care and expected duration. Pain jr10 level reassessed. Patient is alert, oriented x 3, equal unlabored respirations, skin warm/dry/pink. Repeat BG performed, BG noted to be 92. Pt resting comfortably in bed, c/o left side temporal WATSON at present. Dr Thomas notified and aware. Order for tylenol placed, see downtime paper charting for order. Vital Signs: 07:55 BP 178 / 96; Pulse 63; Resp 16; Temp 97.6(O); Pulse Ox 100% on R/A; Weight 106.59 kg; Height 6 ft. 2 in. (187.96 cm); Pain 9/10; 09:34 BP 147 / 80; Pulse 54; Resp 20; Pulse Ox 100% on R/A; jr10 10:59 BP 149 / 78; Pulse 60; Resp 20; Pulse Ox 100% on R/A; jr10 07:55 Body Mass Index 30.17 (106.59 kg, 187.96 cm) ED Course: 07:48 Patient arrived in ED. ds1 08:00 Triage completed. 08:00 Arm band placed on left wrist. 08:16 Kenroy Thomas MD is Attending Physician. rn 08:25 Elisa Gonzalez, MEGHANN is Primary Nurse. jr10 08:37 EKG done, by ED staff, reviewed by Kenroy Thomas MD. dh3 08:53 Missed attempt(s): 20 gauge in left antecubital area. Bleeding controlled, band aid dh3 applied, catheter tip intact. 09:35 Patient has correct armband on for positive identification. Bed in low position. Call jr10 light in reach. Side rails up X2. Pulse ox on. NIBP on. 09:35 Inserted saline lock: 20 gauge in left forearm, using aseptic technique. IV is patent, jr10 is intact, with good blood return, Flushed. 11:21 IV discontinued, bleeding controlled, No redness/swelling at site. Pressure dressing jr10 applied. 11:22 No provider procedures requiring assistance completed. jr10 Administered Medications: 09:00 Drug: NS 0.9% 1000 ml {Note: see downtime paper documentation for correct order times.} jr10 Route: IV; Rate: 1000 ml; Site: left forearm; 10:58 Follow up: Response: No adverse reaction; IV Status: Completed infusion jr10 10:00 Drug: Tylenol 1000 mg Route: PO; jr10 10:02 CANCELLED (wrong order): Sodium Chloride 0.9% 500 ml IVPB in left forearm once jr10 11:10 Drug: Cipro 500 mg Route: PO; jr10 11:21 Follow up: Response: No adverse reaction jr10 Point of Care Testing: Blood Glucose: 08:00 Blood Glucose: 90 mg/dL; Ranges: Outcome: 11:04 Discharge ordered by . rn 11:22 Discharged to home ambulatory. jr10 11:22 Condition: stable 11:22 Discharge instructions given to patient, Instructed on discharge instructions, follow up and referral plans. Demonstrated understanding of instructions, follow-up care, medications, Prescriptions given X 1. 11:22 Patient left the ED. jr10 Signatures: Lola Juarez ds1 Kenroy Thomas MD MD rn Smirch, Shelby, RN RN Jacquelyn Diggs 3 Elisa Gonzalez, RN RN jr10 Corrections: (The following items were deleted from the chart) 10:01 09:00 Sodium Chloride 0.9% 500 ml IVPB in left forearm jr10 jr10
--- NOTE | 2019-09-18 11:06 | EDPHYS ---
Physician Documentation [facility] Name: Rhett Ayers Age: 43 yrs Sex: Male : 1975 Arrival Date: 09/18/2019 Time: 07:48 Bed 4 Private MD: ED Physician Kenroy Thomas HPI: 09/17 08:37 This 43 yrs old Male presents to ER via Ambulatory with complaints of Syncope, rn Dizziness. 08:37 The patient has experienced near-syncope. Onset: The symptoms/episode began/occurred rn just prior to arrival. Duration: This was a single episode. Associated injury: The patient did not suffer any apparent associated injury. Current symptoms: headache. The patient has experienced similar episodes in the past. Reports almost "blacked out", when getting up from bed, reports happened multiple times in past without clear answers, has been told has chronic anemia and has had problems with acidosis and dehydration. Denies fever/focal neuro complaints/chest pain/sob/abd pain/vomiting/diarrhea/blood in stool. Took glucose and was 50s, took PO and now glucose increased, feels better but shaky. Reports increased urination.. Historical: - Allergies: 08:00 No Known Allergies; ss - PMHx: 08:00 compressed discs; Diabetes - NIDDM; Hypertension; Orthostatic hypotension; PUD; ss - Immunization history:: Adult Immunizations up to date. - Social history:: Smoking status: Patient denies any tobacco usage or history of. - Family history:: not pertinent. - Hospitalizations: : No recent hospitalization is reported. ROS: 08:37 Constitutional: Negative for fever, chills, and weight loss, Eyes: Negative for injury, rn pain, redness, and discharge, Neck: Negative for injury, pain, and swelling, Cardiovascular: Negative for chest pain, and edema, Respiratory: Negative for shortness of breath, cough, wheezing, and pleuritic chest pain, Abdomen/GI: Negative for abdominal pain, nausea, vomiting, diarrhea, and constipation, MS/Extremity: Negative for injury and deformity, Skin: Negative for injury, rash, and discoloration, Neuro: Negative for numbness, tingling, and seizure. Exam: 08:37 Constitutional: This is a well developed, well nourished patient who is awake, alert, rn and in no acute distress. Head/Face: Normocephalic, atraumatic. ENT: dry MM Cardiovascular: Regular rate and rhythm. No pulse deficits. Respiratory: No increased work of breathing, no retractions or nasal flaring. Abdomen/GI: soft, non-tender Skin: Warm, dry MS/ Extremity: Pulses equal, no cyanosis. Neurovascular intact. Full, normal range of motion. Equal circumference. Neuro: Awake and alert, GCS 15, oriented to person, place, time, and situation. Cranial nerves II-XII grossly intact. Motor strength 5/5 in all extremities. Sensory grossly intact. Cerebellar exam normal. Normal gait. 09:03 ECG was reviewed by the Attending Physician. rn Vital Signs: 07:55 BP 178 / 96; Pulse 63; Resp 16; Temp 97.6(O); Pulse Ox 100% on R/A; Weight 106.59 kg; ss Height 6 ft. 2 in. (187.96 cm); Pain 9/10; 09:34 BP 147 / 80; Pulse 54; Resp 20; Pulse Ox 100% on R/A; jr10 10:59 BP 149 / 78; Pulse 60; Resp 20; Pulse Ox 100% on R/A; jr10 07:55 Body Mass Index 30.17 (106.59 kg, 187.96 cm) ss MDM: 08:16 Patient medically screened. rn 09:59 ED course: CT head neg per Dr. Santoro. rn 11:02 Differential Diagnosis: vasovagal episode, anemia, dehydration, UTI, hyperglycemia. rn Data reviewed: vital signs, nurses notes, lab test result(s), EKG, radiologic studies, CT scan, and as a result, I will discharge patient. Counseling: I had a detailed discussion with the patient and/or guardian regarding: the historical points, exam findings, and any diagnostic results supporting the discharge/admit diagnosis, lab results, radiology results, the need for outpatient follow up, to return to the emergency department if symptoms worsen or persist or if there are any questions or concerns that arise at home. Response to treatment: the patient's symptoms have markedly improved after treatment, and as a result, I will discharge patient. Special discussion: I discussed with the patient/guardian in detail that at this point there is no indication for admission to the hospital. It is understood, however, that if the symptoms persist or worsen the patient needs to return immediately for re-evaluation. Based on the history and exam findings, there is no indication for further emergent testing or inpatient evaluation. I discussed with the patient/guardian the need to see the primary care provider for further evaluation of the symptoms. ED course: Feels better, + UTI, normal glucose, is hungry, stable vitals, bicarb 20, which is what is was when hematology checked this past week. Will prescribe abx and dc home. . 09/17 10:31 Order name: Urine Dipstick--Ancillary (enter results) mt EC:03 Rate is 47 beats/min. Rhythm is regular. QRS [place] is Normal. SD interval is normal. QRS rn interval is normal. QT interval is normal. No Q waves. T waves are Normal. No ST changes noted. Clinical impression: Sinus bradycardia. Interpreted by me. Reviewed by me. Administered Medications: 09:00 Drug: NS 0.9% 1000 ml {Note: see downtime paper documentation for correct order times.} jr10 Route: IV; Rate: 1000 ml; Site: left forearm; 10:58 Follow up: Response: No adverse reaction; IV Status: Completed infusion jr10 10:00 Drug: Tylenol 1000 mg Route: PO; jr10 10:02 CANCELLED (wrong order): Sodium Chloride 0.9% 500 ml IVPB in left forearm once jr10 11:10 Drug: Cipro 500 mg Route: PO; jr10 11:21 Follow up: Response: No adverse reaction jr10 Point of Care Testing: Blood Glucose: 08:00 Blood Glucose: 90 mg/dL; ss Ranges: Critical Glucose Levels:Adult <50 mg/dl or >400 mg/dl <40 mg/dl or >180 mg/dl Disposition: 09/18/19 11:04 Discharged to Home. Impression: Near syncope, Urinary tract infection, site not specified. - Condition is Stable. - Discharge Instructions: Near-Syncope, Urinary Tract Infection, Adult. - Prescriptions for Cipro 500 mg Oral Tablet - take 1 tablet by ORAL route every 12 hours for 10 days; 20 tablet. - Medication Reconciliation Form, Thank You Letter, Antibiotic Education, Prescription Opioid Use form. - Follow up: Private Physician; When: As needed; Reason: Recheck today's complaints, Re-evaluation by your physician. - Problem is new. - Symptoms have improved. Signatures: Dispatcher [employer] EDMS Kenroy Thomas MD MD rn Smirch, Shelby, RN RN Elisa Gonzalez RN RN jr10 Corrections: (The following items were deleted from the chart) 10:02 10:01 Sodium Chloride 0.9% 500 ml IVPB in left forearm once given. jr10 jr10 10:02 10:01 Sodium Chloride 0.9% 500 ml IVPB in left forearm once ordered. jr10 jr10 11:22 11:04 09/18/2019 11:04 Discharged to Home. Impression: Near syncope; Urinary tract jr10 infection, site not specified. Condition is Stable. Forms are Medication Reconciliation Form, Thank You Letter, Antibiotic Education, Prescription Opioid Use. Follow up: Private Physician; When: As needed; Reason: Recheck today's complaints, Re-evaluation by your physician. Problem is new. Symptoms have improved. rn
[2019-09-18] MEDS ORDERED: CIPROFLOXACIN HCL 500 MG TAB ONE (11:21)
--- NOTE | 2019-09-18 11:38 | RAD REPORT ---
EXAM DESCRIPTION: CT - Head Brain Wo Cont - 09/18/2019 11:07 am CLINICAL HISTORY: DIZZY, LOW BLOOD SUGAR Headache, drowsiness COMPARISON: Facial Bones W/ Mpr dated 09/08/2018 TECHNIQUE: All CT scans are performed using dose optimization technique as appropriate and may inclu de automated exposure control or mA/KV adjustment according to patient size. FINDINGS: No intracranial hemorrhage, hydrocephalus or extra-axial fluid collection.Mild brain atrop hy is seen.No areas of brain edema or evidence of midline shift. The paranasal sinuses and mastoids are clear. The calvarium is intact. IMPRESSION: No acute intracranial abnormality.
[2019-09-18 12:51] VITALS: BP 149/78; TEMP 97.6; O2SAT 100
[2019-09-18 14:09] LABS: Basophils % 0.5 % (0-1.3); Hematocrit 31.2 % (39.6-49.0); Lymphocytes % 34.2 % (15.3-44.8); RBC Red Blood Cell Count 3.22 M/uL (4.33-5.43)
[2019-09-18 14:35] LABS: ALT/SGPT 25 U/L (12-78); AST/SGOT 15 U/L (15-37); Albumin 3.6 g/dL (3.4-5.0); Alkaline Phosphatase 98 U/L (45-117); BUN Blood Urea Nitrogen 17 mg/dL (7-18); Bicarbonate 20 mmol/L (21-32); Bilirubin Direct < 0.1 mg/dL (0-0.2); Bilirubin Total 0.2 mg/dL (0.2-1.0); Glucose Level 97 mg/dL (74-106); Lipase 77 U/L (73-393); Potassium 4.5 mmol/L (3.5-5.1); Protein, Total 7.1 g/dL (6.4-8.2); Sodium Level 143 mmol/L (136-145); Troponin (Emerg Dept Use Only) < 0.02 ng/mL (0.0-0.045)
[2019-09-18 22:04] LABS: Urine Bacteria >50 /HPF (NONE SEEN); Urine Culture Reflex Order REFLEXED; Urine RBC <5 /HPF (NONE SEEN)
--- NOTE | 2019-09-19 07:22 | EKG ---
Test Date: 2019-09-18 Test Time: 08:37:35 Chief Meteorologist: LOPEZ MEASUREMENT RESULTS: Intervals: Rate: 47 NH: 148 QRSD: 96 QT: 400 QTc: 354 [place]: P: 9 NH: 148 QRS: 52 T: 44 INTERPRETIVE STATEMENTS: Marked sinus bradycardia Abnormal ECG Compared to ECG 08/17/2019 20:14:22 Sinus rhythm no longer present Sinus arrhythmia no longer present Electronically Signed On 09-19-19 07:21:55 CDT by Gigi Bedolla
[2019-09-19 10:55] LABS: Urine Blood NEGATIVE (NEG); Urine Glucose NEGATIVE (NEG); Urine Protein NEGATIVE (NEG); Urine pH 5.5 (5.0-7.0)
== END 2019-09-18 11:22 | disposition home or self-care (01) ==
LOC: ER 07:47
DX: N39.0 Urinary tract infection, site not specified (principal); I10 Essential (primary) hypertension
CPT/HCPCS: 96361; 93005; 87088; 85025; 87086; 80048; 36415; 82947 ×3; 80076; 84484; 83690; 70450; 96360; 99284; J7030; 81003; 81015; 87077; 87186

== ENCOUNTER 2020-12-20 08:57 | Inpatient (IN) | payer BC ==
[2020-12-20 09:54] LABS: Urine Blood Trace-intact (Negative); Urine Glucose Negative (Negative); Urine Protein 2+ (Negative); Urine Specific Gravity 1.015 (1.005-1.030); Urine pH 5.5 (5.0-7.0)
[2020-12-20] MEDS ORDERED: NA CHLORIDE 0.9% 3,000 ML ONE (10:21)
[2020-12-20 10:47] LABS: Absolute Lymphocytes (CBC) 0.8 K/uL (0.7-4.9); Basophils % 0.2 % (0-1.3); Hematocrit 35.3 % (39.6-49.0); Lymphocytes % 9.7 % (15.3-44.8); MPV 7.6 fL (7.6-11.3); RBC Red Blood Cell Count 3.61 M/uL (4.33-5.43)
[2020-12-20 10:52] LABS: Protime INR 0.93
[2020-12-20 11:16] LABS: ALT/SGPT 27 U/L (12-78); AST/SGOT 16 U/L (15-37); Albumin 3.5 g/dL (3.4-5.0); Alkaline Phosphatase 145 U/L (45-117); Amylase 50 U/L (25-115); BUN Blood Urea Nitrogen 55 mg/dL (7-18); Bilirubin Direct < 0.1 mg/dL (0-0.2); Bilirubin Total 0.2 mg/dL (0.2-1.0); CKMB Creatine Kinase MB 1.5 ng/mL (1.0-3.6); Creatine Phosphokinase 101 U/L (39-308); Glucose Level 112 mg/dL (74-106); Lipase 91 U/L (73-393); Protein, Total 7.8 g/dL (6.4-8.2); Sodium Level 142 mmol/L (136-145); Troponin (Emerg Dept Use Only) < 0.02 ng/mL (0.0-0.045)
[2020-12-20] MEDS ORDERED: WATER FOR INJ,STERILE 10 ML ONE (11:20)
[2020-12-20] MEDS ORDERED: CEFTRIAXONE 1000 MG/VIAL ONE ×2 (11:20→11:24)
[2020-12-20 11:24] LABS: Potassium 6.9 mmol/L (3.5-5.1)
[2020-12-20] MEDS ORDERED: NA CHLORIDE 0.9% 0 ML ONE (11:24)
[2020-12-20 11:27] LABS: Bicarbonate 14 mmol/L (21-32)
--- NOTE | 2020-12-20 11:51 | RAD REPORT ---
EXAM DESCRIPTION: RAD - Chest Single View - 12/20/2020 10:40 am CLINICAL HISTORY: Weakness and dizziness COMPARISON: March 2019 TECHNIQUE: AP portable chest image was obtained 12/20/2020 10:40 am . FINDINGS: Lungs are clear. Heart and vasculature are normal. No measurable pleural effusion and no p neumothorax. No acute bony abnormality seen. No acute aortic findings suspected. IMPRESSION: No acute cardiopulmonary process. No significant change from comparison study.
--- NOTE | 2020-12-20 12:08 | ER ---
Nurse's Notes [facility] Name: Rhett Ayers Age: 45 yrs Sex: Male : 1975 Arrival Date: 12/20/2020 Time: 09:00 Bed 8 Private MD: Barbara Garcia Diagnosis: Weakness, acute renal failure, hyperkalemia, metabolic acidosis Presentation: 12/20 09:11 Chief complaint: Spouse and/or significant other states: "He has been confused. ss Yesterday he slept all day. He just isn't making any sense. The last time this happened it was dehydration. They kept him, did fluids and they even did a blood transfusion. He has this trouble because he had a gastric bypass years ago and then had another surgery because he had an ulcer which made his stomach even smaller making it more difficult to stay hydrated and receive nutrients.". Coronavirus screen: Client denies travel out of the [place] in the last 14 days. Ebola Screen: Patient denies exposure to infectious person. Patient denies travel to an Ebola-affected area in the 21 days before illness onset. Initial Sepsis Screen: Does the patient meet any 2 criteria? No. Patient's initial sepsis screen is negative. Does the patient have a suspected source of infection? No. Patient's initial sepsis screen is negative. Risk Assessment: Do you want to hurt yourself or someone else? Patient reports no desire to harm self or others. Onset of symptoms was December 2020. 09:11 Method Of Arrival: Ambulatory ss 09:11 Acuity: SANTIAGO 3 ss Historical: - Allergies: 09:15 No Known Allergies; ss - Home Meds: 14:21 lisinopril 20 mg Oral tab 1 tab once daily [Active]; fluoxetine 40 mg Oral cap 1 cap tw2 once daily [Active]; amlodipine 5 mg tab 1 tab once daily [Active]; tizanidine 2 mg oral tab 4 tabs every 8 hours [Active]; gabapentin 800 mg oral tab 1 tab 3 times per day [Active]; hydrocodone-acetaminophen 10-325 mg Oral tab 1 tab every 6 hours [Active]; morphine 15 mg Oral TR12 1 tab once daily [Active]; Movantik 25 mg oral tab 1 tab once daily [Active]; - PMHx: 09:15 compressed discs; Diabetes - NIDDM; Hypertension; Orthostatic hypotension; PUD; ss 14:21 Gastric ulcer; Kidney stone; tw2 - PSHx: 09:15 Gatric Bypass; Cholecystectomy; ss 14:26 Ureter sx; tw2 - Immunization history:: Client reports receiving the 2nd dose of the Covid vaccine. - Social history:: Smoking status: Patient denies any tobacco usage or history of. Screenin:32 Abuse screen: Denies threats or abuse. Nutritional screening: No deficits noted. tw2 Tuberculosis screening: No symptoms or risk factors identified. Fall Risk None identified. Assessment: 09:16 Reassessment: provider at bedside at this time. General: Appears in no apparent tw2 distress. Behavior is calm, cooperative, appropriate for age. Pain: Denies pain. Neuro: Level of Consciousness is awake, alert, obeys commands, Oriented to person, place, time, situation, Reports weakness. 09:59 Cardiovascular: Capillary refill < 3 seconds. Respiratory: Airway is patent Respiratory tw2 effort is even, unlabored, Respiratory pattern is regular, symmetrical. Musculoskeletal: Range of motion: intact in all extremities. 11:01 Reassessment: Patient appears in no apparent distress at this time. No changes from tw2 previously documented assessment. Patient and/or family updated on plan of care and expected duration. Pain level reassessed. Patient is alert, oriented x 3, equal unlabored respirations, skin warm/dry/pink. 12:00 Reassessment: Patient appears in no apparent distress at this time. No changes from tw2 previously documented assessment. Patient and/or family updated on plan of care and expected duration. Pain level reassessed. Patient is alert, oriented x 3, equal unlabored respirations, skin warm/dry/pink. 13:59 Reassessment: Patient appears in no apparent distress at this time. No changes from tw2 previously documented assessment. Patient and/or family updated on plan of care and expected duration. Pain level reassessed. Patient is alert, oriented x 3, equal unlabored respirations, skin warm/dry/pink. 15:39 Reassessment: Patient appears in no apparent distress at this time. No changes from tw2 previously documented assessment. Patient and/or family updated on plan of care and expected duration. Pain level reassessed. Patient is alert, oriented x 3, equal unlabored respirations, skin warm/dry/pink. Vital Signs: 09:11 BP 130 / 57; Pulse 77; Resp 16; Temp 97.1(TE); Pulse Ox 100% on R/A; Weight 117.93 kg; ss Height 6 ft. 2 in. (187.96 cm); Pain 0/10; 11:01 BP 147 / 67; Pulse 68; Resp 15; Pulse Ox 100% on R/A; tw2 12:00 BP 154 / 72; Pulse 73; Resp 17; Pulse Ox 100% on R/A; tw2 13:00 BP 148 / 66; Pulse 70; Resp 17; Pulse Ox 100% on R/A; tw2 13:58 BP 155 / 74; Pulse 99; Resp 20; Pulse Ox 100% on R/A; tw2 14:50 BP 153 / 69; Pulse 86; Resp 17; Pulse Ox 100% on R/A; tw2 15:38 BP 117 / 58; Pulse 87; Resp 17; Pulse Ox 97% on R/A; tw2 09:11 Body Mass Index 33.38 (117.93 kg, 187.96 cm) ED Course: 09:00 Patient arrived in ED. as 09:00 Barbara Garcia is Private Physician. as 09:15 Triage completed. ss 09:15 Arm band placed on right wrist. ss 09:29 Andrés Liu MD is Attending Physician. kdr 09:31 Darlene Bangura RN is Primary Nurse. tw2 09:32 Bed in low position. Call light in reach. Adult w/ patient. tw2 10:24 Missed attempt(s): 20 gauge in left antecubital area. by Vini Olivera at this time.. tw2 Bleeding controlled, band aid applied, catheter tip intact. 10:40 Chest Single View XRAY In Process Unspecified. EDMS 10:45 Initial lab(s) drawn, by ED staff, sent to lab. First set of blood cultures drawn by ED jl7 staff, Second set of blood cultures drawn by ky, EKG done, by ED staff, reviewed by Andrés Liu MD. 10:55 IV discontinued, intact, bleeding controlled, No redness/swelling at site. Pressure tw2 dressing applied, 20 g LEFT ac. would not flush at this time. Missed attempt(s): 20 gauge in right forearm. notified MEGHANN Chapa of need for iv at this time.. Bleeding controlled, band aid applied, catheter tip intact. 11:15 Inserted saline lock: 20 gauge in right antecubital area, using aseptic technique. jl7 11:31 Repeat lab(s) drawn. by me, sent to lab. jl7 12:03 Amylase, Serum Sent. jl7 12:03 Basic Metabolic Panel Sent. jl7 12:03 Blood Culture Adult (2) Sent. jl7 12:03 CBC with Diff Sent. jl7 12:03 CPK Sent. jl7 12:03 Ckmb Sent. jl7 12:03 LFT's Sent. jl7 12:03 Lactate Sent. jl7 12:06 Jose Maria Thomas MD is Hospitalizing Provider. kdr 15:37 No provider procedures requiring assistance completed. tw2 Administered Medications: 11:19 Drug: NS 0.9% (30 ml/kg) 30 ml/kg {Note: 3L per Dr. Liu.} Route: IV; Rate: bolus; tw2 Site: right antecubital; 13:20 Follow up: Response: No adverse reaction; IV Status: Completed infusion; IV Intake: tw2 3000ml 12:00 Drug: Rocephin - (cefTRIAXone) 1 grams {Note: IVP available..} Route: IVPB; Infused tw2 Over: 10 mins; Site: right antecubital; 12:03 Follow up: Response: No adverse reaction; IV Status: Completed infusion jl7 12:19 Follow up: IV Intake: 10ml tw2 13:05 Drug: Insulin Regular Human 10 units {Co-Signature: ll3 (Greyson Ivy RN).} Route: jl7 IVP; Site: right antecubital; 15:39 Follow up: Response: No adverse reaction tw2 13:10 Drug: D50W 50 ml Route: IVP; Site: right antecubital; jl7 15:39 Follow up: Response: No adverse reaction tw2 13:15 Drug: Sodium Bicarbonate 1 amp Route: IVP; Site: right antecubital; jl7 14:29 Follow up: Response: No adverse reaction tw2 13:22 Drug: Calcium Gluconate 1 grams Route: IVPB; Infused Over: 60 mins; Site: right jl antecubital; 14:22 Follow up: Response: No adverse reaction; IV Status: Completed infusion; IV Intake: tw2 100ml 13:22 Drug: Albuterol 2.5 mg Route: Inhalation; jl7 13:22 Drug: Albuterol 2.5 mg Route: Inhalation; jl7 13:22 Drug: Albuterol 2.5 mg Route: Inhalation; jl7 Intake: 12:19 IV: 10ml; Total: 10ml. tw2 13:20 IV: 3000ml; Total: 3010ml. tw2 14:22 IV: 100ml; Total: 3110ml. tw2 Output: 11:30 Urine: 400ml (Voided); Total: 400ml. tw2 Outcome: 12:07 Decision to Hospitalize by Provider. kdr 15:37 Admitted to Med/surg via wheelchair, room 211, with chart, Report called to MEGHANN Raza tw2 15:37 Condition: stable 15:37 Instructed on the need for admit. 15:45 Patient left the ED. tw2 Signatures: Dispatcher [employer] EDMS Andrés Liu MD MD kdr Vernell Fowler Shelby, RN RN ss Darlene Bangura RN RN tw2 Sammi Vasques RN RN jl7 Greyson Ivy RN ll3 Corrections: (The following items were deleted from the chart) 09:59 09:16 Neuro: Level of Consciousness is awake, alert, obeys commands, Oriented to tw2 person, place, time, situation, Reports weakness tw2 11:01 10:55 Missed attempt(s): 20 gauge in right forearm. Bleeding controlled, band aid tw2 applied, catheter tip intact. tw2
--- NOTE | 2020-12-20 12:08 | EDPHYS ---
Physician Documentation [facility] Name: Rhett Ayers Age: 45 yrs Sex: Male : 1975 Arrival Date: 12/20/2020 Time: 09:00 Bed 8 Private MD: Barbara Garcia ED Physician Andrés Liu HPI: 12/20 10:30 This 45 yrs old Male presents to ER via Ambulatory with complaints of General kdr Weakness. 10:30 Patient complains of generalized weakness and possible dehydration. Since having a kdr gastric sleeve placed several years ago, he has had intermittent issues with hydration, dizziness and occasional syncope last syncope was several years ago. Today his concern is that he feels he is becoming increasingly dehydrated and he and his feel that he may need either a blood transfusion or iron or fluids or all of the above.. Onset: The symptoms/episode began/occurred gradually, at an unknown time. Severity of symptoms: At their worst the symptoms were mild moderate just prior to arrival, in the emergency department the symptoms are unchanged. The patient has experienced similar episodes in the past, chronically. The patient has not recently seen a physician. Historical: - Allergies: 09:15 No Known Allergies; ss - Home Meds: 14:21 lisinopril 20 mg Oral tab 1 tab once daily [Active]; fluoxetine 40 mg Oral cap 1 cap tw2 once daily [Active]; amlodipine 5 mg tab 1 tab once daily [Active]; tizanidine 2 mg oral tab 4 tabs every 8 hours [Active]; gabapentin 800 mg oral tab 1 tab 3 times per day [Active]; hydrocodone-acetaminophen 10-325 mg Oral tab 1 tab every 6 hours [Active]; morphine 15 mg Oral TR12 1 tab once daily [Active]; Movantik 25 mg oral tab 1 tab once daily [Active]; - PMHx: 09:15 compressed discs; Diabetes - NIDDM; Hypertension; Orthostatic hypotension; PUD; ss 14:21 Gastric ulcer; Kidney stone; tw2 - PSHx: 09:15 Gatric Bypass; Cholecystectomy; ss 14:26 Ureter sx; tw2 - Immunization history:: Client reports receiving the 2nd dose of the Covid vaccine. - Social history:: Smoking status: Patient denies any tobacco usage or history of. ROS: 10:30 Constitutional: Negative for fever, chills, and weight loss, Eyes: Negative for injury, kdr pain, redness, and discharge, ENT: Negative for injury, pain, and discharge, Neck: Negative for injury, pain, and swelling, Cardiovascular: Negative for chest pain, palpitations, and edema, Respiratory: Negative for shortness of breath, cough, wheezing, and pleuritic chest pain, Abdomen/GI: Negative for abdominal pain, nausea, vomiting, diarrhea, and constipation, Back: Negative for injury and pain, : Negative for injury, bleeding, discharge, and swelling, MS/Extremity: Negative for injury and deformity, Skin: Negative for injury, rash, and discoloration, Psych: Negative for depression, anxiety, suicide ideation, homicidal ideation, and hallucinations, Allergy/Immunology: Negative for hives, rash, and allergies, Endocrine: Negative for neck swelling, polydipsia, polyuria, polyphagia, and marked weight changes, Hematologic/Lymphatic: Negative for swollen nodes, abnormal bleeding, and unusual bruising. 10:30 Neuro: Positive for dizziness, weakness, He feels that when he closes his eyes and shakes his head he becomes very dizzy and disoriented, Negative for loss of consciousness, seizure activity, speech changes, syncope, near syncope. Exam: 10:30 Constitutional: This is a well developed, well nourished patient who is awake, alert, kdr and in no acute distress. Head/Face: Normocephalic, atraumatic. Eyes: Pupils equal round and reactive to light, extra-ocular motions intact. Lids and lashes normal. Conjunctiva and sclera are non-icteric and not injected. Cornea within normal limits. Periorbital areas with no swelling, redness, or edema. Neck: Trachea midline, no thyromegaly or masses palpated, and no cervical lymphadenopathy. Supple, full range of motion without nuchal rigidity, or vertebral point tenderness. No Meningismus. Chest/axilla: Normal chest wall appearance and motion. Nontender with no deformity. No lesions are appreciated. Cardiovascular: Regular rate and rhythm with a normal S1 and S2. No gallops, murmurs, or rubs. Normal PMI, no JVD. No pulse deficits. Respiratory: Lungs have equal breath sounds bilaterally, clear to auscultation and percussion. No rales, rhonchi or wheezes noted. No increased work of breathing, no retractions or nasal flaring. Abdomen/GI: Soft, non-tender, with normal bowel sounds. No distension or tympany. No guarding or rebound. No evidence of tenderness throughout. Back: No spinal tenderness. No costovertebral tenderness. Full range of motion. Skin: Warm, dry with normal turgor. Normal color with no rashes, no lesions, and no evidence of cellulitis. MS/ Extremity: Pulses equal, no cyanosis. Neurovascular intact. Full, normal range of motion. Neuro: Awake and alert, GCS 15, oriented to person, place, time, and situation. Cranial nerves II-XII grossly intact. Motor strength 5/5 in all extremities. Sensory grossly intact. Cerebellar exam normal. Normal gait. Psych: Awake, alert, with orientation to person, place and time. Behavior, mood, and affect are within normal limits. 10:45 ECG was reviewed by the Attending Physician. kdr Vital Signs: 09:11 BP 130 / 57; Pulse 77; Resp 16; Temp 97.1(TE); Pulse Ox 100% on R/A; Weight 117.93 kg; ss Height 6 ft. 2 in. (187.96 cm); Pain 0/10; 11:01 BP 147 / 67; Pulse 68; Resp 15; Pulse Ox 100% on R/A; tw2 12:00 BP 154 / 72; Pulse 73; Resp 17; Pulse Ox 100% on R/A; tw2 13:00 BP 148 / 66; Pulse 70; Resp 17; Pulse Ox 100% on R/A; tw2 13:58 BP 155 / 74; Pulse 99; Resp 20; Pulse Ox 100% on R/A; tw2 14:50 BP 153 / 69; Pulse 86; Resp 17; Pulse Ox 100% on R/A; tw2 15:38 BP 117 / 58; Pulse 87; Resp 17; Pulse Ox 97% on R/A; tw2 09:11 Body Mass Index 33.38 (117.93 kg, 187.96 cm) ss MDM: 10:30 Data reviewed: vital signs, nurses notes, lab test result(s), radiologic studies. kdr Counseling: I had a detailed discussion with the patient and/or guardian regarding: the historical points, exam findings, and any diagnostic results supporting the discharge/admit diagnosis, lab results, radiology results. 12:07 Patient medically screened. [facility] 12/20 09:54 Order name: Urine Dipstick-Ancillary; Complete Time: 11:22 EDMS 12/20 10:05 Order name: Amylase, Serum kdr 12/20 10:05 Order name: Basic Metabolic Panel kdr 12/20 10:05 Order name: Blood Culture Adult (2) kdr 12/20 10:05 Order name: CBC with Diff kdr 12/20 10:05 Order name: CPK kdr 12/20 10:05 Order name: Ckmb kdr 12/20 10:05 Order name: LFT's kdr 12/20 10:05 Order name: Lactate kdr 12/20 10:05 Order name: Lipase; Complete Time: 11:40 [facility] 12/20 10:05 Order name: Procalcitonin kdr 12/20 10:05 Order name: Protime (+inr); Complete Time: 11:22 [facility] 12/20 10:05 Order name: Ptt, Activated; Complete Time: 11:22 [facility] 12/20 10:05 Order name: Troponin (emerg Dept Use Only); Complete Time: 11:40 [facility] 12/20 10:05 Order name: Urine Microscopic Only kdr 12/20 10:05 Order name: Chest Single View XRAY kdr 12/20 10:06 Order name: Amylase; Complete Time: 11:40 EDMS 12/20 10:06 Order name: Basic Metabolic Panel; Complete Time: 11:40 EDMS 12/20 10:06 Order name: Blood Culture EDMS 12/20 10:06 Order name: CBC with Automated Diff; Complete Time: 11:22 EDAL 12/20 10:06 Order name: Creatine Phosphokinase; Complete Time: 11:40 EDMS 12/20 10:06 Order name: CKMB Creatine Kinase MB; Complete Time: 11:40 EDMS 12/20 10:06 Order name: Liver (Hepatic) Function; Complete Time: 11:40 EDMS 12/20 10:06 Order name: Lactate; Complete Time: 11:22 EDMS 12/20 10:38 Order name: Glucose, Ancillary Testing; Complete Time: 11:22 EDMS 12/20 10:55 Order name: Type and Screen Tube method EDMS 12/20 11:34 Order name: Basic Metabolic Panel 12/20 12:15 Order name: Urine Culture EDAL 12/20 13:09 Order name: SARS-COV-2 RT PCR (Document "Date of Onset" if Symptomatic) 12/20 10:05 Order name: Accucheck; Complete Time: : kdr 12/20 10:05 Order name: Cardiac monitoring; Complete Time: : kdr 12/20 10:05 Order name: EKG - Nurse/Tech; Complete Time: 10: kdr 12/20 10:05 Order name: IV Saline Lock - Large Bore; Complete Time: 10: kdr 12/20 10:05 Order name: Labs collected and sent; Complete Time: : kdr 12/20 10:05 Order name: O2 Per Protocol; Complete Time: 10: kdr 12/20 10:05 Order name: O2 Sat Monitoring; Complete Time: : kdr 12/20 10:05 Order name: Urine Dipstick-Ancillary (obtain specimen); Complete Time: : kdr 12/20 13:07 Order name: CONS Physician Consult EDMS EC:45 Rate is 66 beats/min. Rhythm is regular, Normal Sinus Rhythm with No ectopy. QRS Gordon kdr is Normal. KS interval is normal. QRS interval is normal. QT interval is normal. Clinical impression: Normal ECG. Administered Medications: :19 Drug: NS 0.9% (30 ml/kg) 30 ml/kg {Note: 3L per Dr. Liu.} Route: IV; Rate: bolus; tw2 Site: right antecubital; 13:20 Follow up: Response: No adverse reaction; IV Status: Completed infusion; IV Intake: tw2 3000ml 12:00 Drug: Rocephin - (cefTRIAXone) 1 grams {Note: IVP available..} Route: IVPB; Infused tw2 Over: 10 mins; Site: right antecubital; 12:03 Follow up: Response: No adverse reaction; IV Status: Completed infusion jl7 12:19 Follow up: IV Intake: 10ml tw2 13:05 Drug: Insulin Regular Human 10 units {Co-Signature: ll3 (Greyson Ivy RN).} Route: jl7 IVP; Site: right antecubital; 15:39 Follow up: Response: No adverse reaction tw2 13:10 Drug: D50W 50 ml Route: IVP; Site: right antecubital; jl7 15:39 Follow up: Response: No adverse reaction tw2 13:15 Drug: Sodium Bicarbonate 1 amp Route: IVP; Site: right antecubital; jl7 14:29 Follow up: Response: No adverse reaction tw2 13:22 Drug: Calcium Gluconate 1 grams Route: IVPB; Infused Over: 60 mins; Site: right jl7 antecubital; 14:22 Follow up: Response: No adverse reaction; IV Status: Completed infusion; IV Intake: tw2 100ml 13:22 Drug: Albuterol 2.5 mg Route: Inhalation; jl7 13:22 Drug: Albuterol 2.5 mg Route: Inhalation; jl7 13:22 Drug: Albuterol 2.5 mg Route: Inhalation; jl7 Disposition Summary: 12/20/20 12:07 Hospitalization Ordered Hospitalization Status: Inpatient Admission kdr Provider: Jose Maria Thomas Location: Telemetry/MedSurg (Inpatient) kdr Condition: Fair kdr Problem: an acute exacerbation kdr Symptoms: have improved kdr Bed/Room Type: Standard kdr Room Assignment: 211(12/20/20 14:54) eb Diagnosis - Weakness, acute renal failure, hyperkalemia, metabolic acidosis kdr Forms: - Medication Reconciliation Form kdr - SBAR form kdr Signatures: Dispatcher [employer] EDMS Anrdés Liu MD MD kdr Claudine Werner RN RN ss Darlene Bangura RN RN tw2 Sammi Vasques RN RN jl7 Page Kothari Greyson Ivy RN ll3 Corrections: (The following items were deleted from the chart) 10:55 10:35 TYPE AND SCREEN+[id number].BRZ ordered. EDAL EDAL 14:54 12:07 kdr eb
[2020-12-20 12:14] LABS: Urine Bacteria LOADED /HPF (NONE SEEN)
[2020-12-20 12:33] LABS: Potassium 6.9 mmol/L (3.5-5.1)
[2020-12-20] MEDS ORDERED: ALBUTEROL 2.5 MG/3 ML NEB SOL ONE (12:44)
[2020-12-20] MEDS ORDERED: INSULIN -REGULAR HUMAN 50 UNIT/0.5 ML ML ONE (12:45)
[2020-12-20] MEDS ORDERED: D50W 50 ML IV ONE (12:45)
[2020-12-20] MEDS ORDERED: CALCIUM GLUCONATE 1 GM IVPB 1 GM/50 ML BAG IV ONE (12:46)
--- NOTE | 2020-12-20 13:18 | P.HP ---
Certification for Inpatient Patient admitted to: Inpatient With expected LOS: >2 Midnights Practitioner: I am a practitioner with admitting privileges, knowledge of patient current condition, hospital course, and medical plan of care. Services: Services provided to patient in accordance with Admission requirements found in Title 42 Section 412.3 of the Code of Federal Regulations Patient History Date of Service: 12/20/20 Reason for admission: MIGUEL, UTI History of Present Illness: 45yo M, PMH: gastric bypass, anemia of unknown etiology, NIDDM2, HTN, PUD Presents to ED due to ~2-3 days of generalized weakness, fatigue, and <1 day of confusion. Patient also reports intermittent dysuria over the last week as well as slightly increased frequency of loose stools. No recent change in medication. He states he has always been easily dehydrated since he had his gastric bypass. Very fatigued over last 2 days, sleeping most of the days. Unsure if he had a fever or not, states he always runs cold anyway. Denies nausea/vomiting. Last night was confused per , thought it was a different time / confused of what was going on. ER physician had requested admission for further evaluation / treatment. Allergies No Known Allergies Allergy (Verified 08/02/19 10:37) Home Medications: Cholecalciferol (Vitamin D3) [Vitamin D3] 2,000 unit PO BID 04/02/19 Cyanocobalamin [Vitamin B-12*] 1,000 mcg PO DAILY 04/02/19 Gabapentin [Neurontin] 800 mg PO Q8H 04/02/19 Metformin HCl 1,000 mg PO BID 04/02/19 Multivitamin [Daily Multiple Vitamin] 1 each PO DAILY 04/02/19 Pantoprazole [Protonix Tab*] 40 mg PO DAILY 04/02/19 Tizanidine HCl [Zanaflex] 6 mg PO Q6H 04/02/19 Hydrocodone 7.5/APAP 325 [[place] 7.5/325 mg*] 1 tab PO Q6H PRN 08/18/19 Lisinopril [Zestril] 20 mg PO DAILY 08/18/19 Naloxegol Oxalate [Movantik] 25 mg PO DAILY 08/18/19 Ascorbic Acid [Vitamin C*] 500 mg PO Q12H #60 tablet 08/19/19 Na Bicarb Tab [Sodium Bicarb 325 MG Tab*] 650 mg PO TID #42 tab 08/19/19 Sucralfate [Carafate -Tab] 1 gm PO ACHS 14 Days #56 tab 08/19/19 - Past Medical/Surgical History Diabetic: No -: Chronic back pain -: DM II age 22 -: Gastric ulcer -: Anemia -: HTN -: R knee surgery -: Gastric bypass -: Phimosis skin graft -: Circumcision -: Jackie -: rt knee surg - Family History Mother -: Heart disease, Diabetes Notes: of cirrrosis of liver Father -: Diabetes Brother -: Hypertension, Diabetes Notes: at 39yr old from "natural causes" - Social History Smoking Status: Never smoker Alcohol use: No CD- Drugs: No Caffeine use: Yes Place of Residence: Home Review of Systems 10-point ROS is otherwise unremarkable Physical Examination - Physical Exam General: Alert, Mild distress HEENT: Sclerae nonicteric Respiratory: Clear to auscultation bilaterally, Normal air movement Cardiovascular: No edema, Regular rate/rhythm Capillary refill: <2 Seconds Gastrointestinal: Soft and benign, Non-distended, No tenderness Musculoskeletal: No tenderness Integumentary: No rashes, No significant lesion Neurological: Normal speech, Normal strength at 5/5 x4 extr, Normal affect - Studies Laboratory Data (last 24 hrs) 12/20/20 11:29: Sodium 142, Potassium 6.9 H*, BUN 52 H, Creatinine 2.30 H, Glucose 104 12/20/20 10:30: PT 10.7, INR 0.93, APTT 29.9 12/20/20 10:30: WBC 8.00, Hgb 11.2 L, Hct 35.3 L, Plt Count 312 12/20/20 10:30: Sodium 142, Potassium 6.9 H*, BUN 55 H, Creatinine 2.48 H, Glucose 112 H, Total Bilirubin 0.2, AST 16, ALT 27, Alkaline Phosphatase 145 H, Amylase 50, Lipase 91 Assessment and Plan - Advance Directives Does patient have a Living Will: No Does patient have a Durable POA for Healthcare: Yes Physician Review Additional Text: Problem list Urinary tract infection MIGUEL, likely prerenal CKD 2 Hyperkalemia Hyperchloremic metabolic acidosis Chronic loose stools, after gastric bypass (Rahul-en-Y) Hypertension Diabetes mellitus type 2, [id number] Chronic back pain -Patient is afebrile, vitals within normal limits and stable. Patient does not appear to have severe sepsis or septic shock -Urine with pyuria and bacteriuria, start Rocephin empirically -MIGUEL likely prerenal, possible renal disease, but has been having more loose stools, reports difficulty today keep up with his hydration -Start D5 half NS -Nephrology consulted due to MIGUEL, hyperkalemia, hyperchloremic metabolic acidosis -ER ordered hyperkalemia protocol, will recheck later this afternoon -Patient denies any chronic kidney disease, but has had episodes of acute renal failure in the past -Monitor on telemetry -Confirm home medications and restart as appropriate -Patient reports he takes chronic opioid pain medication -Follow-up cultures VTE: lovenox Code: full Dispo: anticipate dc home in 2-3 days Time Spent Managing Pts Care (In Minutes): 60
[2020-12-20] MEDS ORDERED: ONDANSETRON 4 MG/2 ML VIAL IV PRN (15:57)
[2020-12-20 16:27] VITALS: BMI 33.3
[2020-12-20] MEDS: INSULIN -REGULAR HUMAN 50 UNIT/0.5 ML ML SQ SCH ×2 (16:30→21:00)
[2020-12-20] MEDS: ENOXAPARIN 40 MG/0.4 ML SQ SCH (16:44)
[2020-12-20] MEDS: D5 0.45 NS 1,000 ML IV SCH (16:44)
[2020-12-20] MEDS ORDERED: INFLUENZA VACCINE (for 6+ mo) 0.5 ML DOSE IMVAC ONE (17:00)
[2020-12-20 17:54] LABS: Potassium 5.5 mmol/L (3.5-5.1)
[2020-12-20] MEDS: HYDROCODONE/APAP 10/325 TAB PO PRN (20:09)
[2020-12-20] MEDS ORDERED: MORPHINE 2 MG/ML SYR IV ONE (21:36)
--- NOTE | 2020-12-20 21:39 | RAD REPORT ---
EXAM DESCRIPTION: US - Renal Ultrasound-Complete - 12/20/2020 6:22 pm CLINICAL HISTORY: MIGUEL COMPARISON: Small Bowel Series dated 04/04/2019 FINDINGS: Both kidneys are normal in size, shape and echotexture. The right kidney measures 9.5 cm. No hydronephrosis, focal mass or perinephric fluid. The left kidney measures 10.8 cm. No hydronephrosis, focal mass or perinephric fluid. The urinary bladder is incompletely distended without gross abnormality seen. IMPRESSION: No hydronephrosis.
[2020-12-21] MEDS: ZOLPIDEM TARTRATE 10 MG TABLET PO SCH ×2 (00:17→20:16)
[2020-12-21] MEDS: TIZANIDINE 4 MG TABLET PO SCH ×5 (00:17→23:33)
[2020-12-21] MEDS: GABAPENTIN 400 MG CAP PO SCH ×4 (00:17→23:35)
[2020-12-21] MEDS: D5 0.45 NS 1,000 ML IV SCH ×4 (00:22→23:46)
[2020-12-21 05:27] LABS: Urine Appearance CLEAR (Clear); Urine Bilirubin NEGATIVE (Negative); Urine Blood 1+ (Negative); Urine Color YELLOW (Yellow); Urine Glucose NEGATIVE (Negative); Urine Protein TRACE (Negative); Urine Urobilinogen 0.2 mg/dL (0.2-1.0); Urine pH 5.5 (5.0-7.0)
[2020-12-21 05:48] LABS: Urine Bacteria <20 /HPF (NONE SEEN)
--- NOTE | 2020-12-21 06:00 | P.PN ---
Date of Service: 12/21/20 Subjective: Feeling better, continues with headache, continues with chronic pain More energy, overall feeling little bit better No new complaints/symptoms ROS: 10 point ROS as noted above, otherwise negative Physical exam GEN: Alert, oriented, uncomfortable HEENT: Normal conjunctiva, sclera anicteric CV: Regular rate and rhythm, no edema Pulm: Nonlabored respiration on room air ABD: Soft, nontender, nondistended MSK: lumbar tenderness (chronic) Integumentary: No rashes Neuro: Normal speech, normal affect Problem list Urinary tract infection MIGUEL, likely prerenal CKD 2 Hyperkalemia Hyperchloremic metabolic acidosis Chronic loose stools, after gastric bypass (Rahul-en-Y) Hypertension Diabetes mellitus type 2, [id number] Chronic back pain -Patient is afebrile, vitals within normal limits and stable. Patient does not appear to have severe sepsis or septic shock -Urine with pyuria and bacteriuria, continue Rocephin empirically -MIGUEL likely prerenal, possible renal disease, but has been having more loose stools, reports difficulty today keep up with his hydration -Start D5 half NS, renal function improving -Nephrology consulted due to MIGUEL, hyperkalemia, hyperchloremic metabolic acidosis -Patient denies any chronic kidney disease, but has had episodes of acute renal failure in the past -Monitor on telemetry -Patient reports he takes chronic opioid pain medication -Continue home pain medication, [employer]PER[employer] reviewed, no red flags -Preliminary urine culture growing gram-negative rods VTE: lovenox Code: full Dispo: anticipate dc home in ~2 days Time Spent Managing Pts Care (In Minutes): 35
[2020-12-21 06:04] LABS: Absolute Lymphocytes (CBC) 1.1 K/uL (0.7-4.9); Basophils % 0.3 % (0-1.3); Hematocrit 28.8 % (39.6-49.0); Lymphocytes % 18.9 % (15.3-44.8); MPV 7.9 fL (7.6-11.3); RBC Red Blood Cell Count 3.01 M/uL (4.33-5.43)
[2020-12-21] MEDS: HYDROCODONE/APAP 10/325 TAB PO PRN ×4 (06:09→23:34)
[2020-12-21 06:23] LABS: Albumin 2.7 g/dL (3.4-5.0); Bilirubin Total 0.2 mg/dL (0.2-1.0); Magnesium 1.6 mg/dL (1.8-2.4); Phosphorus 2.5 mg/dL (2.5-4.9); Potassium 5.5 mmol/L (3.5-5.1); Protein, Total 6.3 g/dL (6.4-8.2); Uric Acid 5.9 mg/dL (3.5-7.2)
[2020-12-21] MEDS: INSULIN -REGULAR HUMAN 50 UNIT/0.5 ML ML SQ SCH ×4 (07:30→21:00)
[2020-12-21] MEDS: ENOXAPARIN 40 MG/0.4 ML SQ SCH (08:56)
[2020-12-21] MEDS ORDERED: MORPHINE *EXTENDED RELEASE* 15 MG TAB PO SCH (09:00)
[2020-12-21] MEDS ORDERED: AMLODIPINE 5 MG TAB PO SCH (09:00)
[2020-12-21] MEDS ORDERED: FLUOXETINE 20 MG CAP PO SCH (09:00)
[2020-12-21] MEDS ORDERED: CEFTRIAXONE 1,000 MG in NA CHLORIDE 0.9% 50 ML IVPB SCH (09:00)
--- NOTE | 2020-12-21 12:16 | P.CNS ---
Date of Consult: 12/21/20 Reason for Consult: MIGUEL/ CKD with hyperkalemia Requesting Physician: Jose Maria Thomas Chief Complaint: MIGUEL, UTI History of Present Illness: 45yo M, PMH: gastric bypass, anemia of unknown etiology, NIDDM2, HTN, PUD Presents to ED due to ~2-3 days of generalized weakness, fatigue, and <1 day of confusion. Patient also reports intermittent dysuria over the last week as well as slightly increased frequency of loose stools. No recent change in medication. He states he has always been easily dehydrated since he had his gastric bypass. Very fatigued over last 2 days, sleeping most of the days. Unsure if he had a fever or not, states he always runs cold anyway. Denies nausea/vomiting. Last night was confused per , thought it was a different time / confused of what was going on. Reports intermittent NSAIDs over the past few weeks. Reports drinking OJ and eating potatoes regularly. He notice more muscle cramping over the past few weeks. 10:30 This 45 yrs old Male presents to ER via Ambulatory with complai nts of General kdr Weakness. 10:30 Patient complains of generalized weakness and possible dehydration. Since having a kdr gastric sleeve placed several years ago, he has had intermittent issues with hydration, dizziness and occasional syncope last syncope was several years ago. Today his concern is that he feels he is becoming increasingly dehydrated and he and his feel that he may need either a blood transfusion or iron or fluids or all of the above.. Onset: The symptoms/episode began/occurred gradually, at an unknown time. Severity of symptoms: At their worst the symptoms were mild moderate just prior to arrival, in the emergency department the symptoms are unchanged. The patient has experienced similar episodes in the past, chronically. The patient has not recently seen a physician. Allergies No Known Allergies Allergy (Verified 08/02/19 10:37) Home medications list reviewed: Yes Home Medications: Gabapentin [Neurontin] 800 mg PO Q8H 04/02/19 Metformin HCl 1,000 mg PO DAILY PRN 04/02/19 Multivitamin [Daily Multiple Vitamin] 1 each PO DAILY 04/02/19 Tizanidine HCl [Zanaflex] 6 mg PO Q6H 04/02/19 Hydrocodone 7.5/APAP 325 [[place] 7.5/325 mg*] 1 tab PO Q6H PRN 08/18/19 Naloxegol Oxalate [Movantik] 25 mg PO DAILY 08/18/19 Amlodipine [Norvasc] 5 mg PO DAILY 12/20/20 Fluoxetine HCl [Prozac] 1 cap PO DAILY 12/20/20 Lisinopril [Zestril] 1 tab PO DAILY 12/20/20 Morphine *Extended Release* [MS Contin*] 1 tab PO DAILY 12/20/20 Zolpidem Tartrate [Ambien Cr] 1 tab PO BEDTIME 12/20/20 - Past Medical/Surgical History Diabetic: Yes -: Chronic back pain -: DM II age 22 -: Gastric ulcer -: Anemia -: HTN -: R knee surgery -: Gastric bypass -: Phimosis skin graft -: Circumcision -: Jackie -: rt knee surg - Family History Mother Medical History: Heart disease, Diabetes Notes: of cirrrosis of liver Father Medical History: Diabetes Brother Medical History: Hypertension, Diabetes Notes: at 39yr old from "natural causes" - Social History Alcohol use: No CD- Drugs: No Caffeine use: Yes Place of Residence: Home Review of Systems 10-point ROS is otherwise unremarkable General: Weakness, Malaise Neurological: Weakness Physical Examination Temp Pulse Resp BP Pulse Ox 98.6 F 58 18 149/71 H 100 12/21/20 11:24 12/21/20 11:24 12/21/20 11:24 12/21/20 11:24 12/21/20 11:24 General: Oriented x3, Cooperative HEENT: Normocephalic Neck: Supple Respiratory: Clear to auscultation bilaterally Cardiovascular: No edema, Regular rate/rhythm Gastrointestinal: Soft and benign, Non-distended Musculoskeletal: No clubbing, No contractures Integumentary: No rashes, No cyanosis Laboratory Data (last 24 hrs) 12/20/20 11:29: Sodium 142, Potassium 6.9 H*, BUN 52 H, Creatinine 2.30 H, Glucose 104 Imagings Data: EXAM DESCRIPTION: US - Renal Ultrasound-Complete - 12/20/2020 6:22 pm CLINICAL HISTORY: MIGUEL COMPARISON: Small Bowel Series dated 04/04/2019 FINDINGS: Both kidneys are normal in size, shape and echotexture. The right kidney measures 9.5 cm. No hydronephrosis, focal mass or perinephric fluid. The left kidney measures 10.8 cm. No hydronephrosis, focal mass or perinephric fluid. The urinary bladder is incompletely distended without gross abnormality seen. IMPRESSION: No hydronephrosis. EXAM DESCRIPTION: RAD - Chest Single View - 12/20/2020 10:40 am CLINICAL HISTORY: Weakness and dizziness COMPARISON: March 2019 TECHNIQUE: AP portable chest image was obtained 12/20/2020 10:40 am . FINDINGS: Lungs are clear. Heart and vasculature are normal. No measurable pleural effusion and no pneumothorax. No acute bony abnormality seen. No acute aortic findings suspected. IMPRESSION: No acute cardiopulmonary process. No significant change from comparison study. Conclusions/Impression: MIGUEL likely due to hypovolemia CKD III -No NSAIDs -Continue IVF Hyperkalemia -Low potassium diet -Continue IVF -Hold Lisinopril Acidosis -Continue IVF Hypomagnesemia HTN with CKD -Continue Amlodipine DM II with CKD -RISS Moderate malnutrition -Encourage nutrition Anemia in chronic illness -Monitor H&H Thank you kindly for the consultation. Case reviewed with Dr. Thomas
[2020-12-21] MEDS ORDERED: ZOLPIDEM TARTRATE 10 MG TABLET PO SCH (21:00)
[2020-12-21 21:35] VITALS: O2SAT 99
--- OUTSIDE RECORDS SUMMARY | 2020-12-21 22:33 | XMS REPORT | Continuity of Care Document ---
:1975 Author Organization [facility] t Address [address] [place] [address] [address] [place] [address] Care Team Providers Name Role Phone LOS MARRERO Attending Clinician Unavailable Doctor Unassigned, Name Attending Clinician Unavailable Roger SCRUGGS L Attending Clinician Fitz PORTILLO Attending Clinician Unavailable Payers Payer Name Policy Type Policy Number Effective Date Expiration Date S [facility] - [id number] 2008 00:00:00 OUT OF STATE Problems This patient has no known problems. Allergies, Adverse Reactions, Alerts Allergy Allergy Status Severity Reaction(s) Onset Inactive Treating Comm ents Source Name Type Date Date Clinician NO KNOWN Drug Active Univers ALLERGIE Class ity of [facility] Social History Social Habit Start Date Stop Date Quantity Comments Source Sex Assigned At [facility] Medical Branch Exposure to Not sure [facility] SARS-CoV-2 (event) Medica l Branch Tobacco use and 2019-06-29 2019-06-29 Never used [facility] exposure 00:00:00 00:00:00 Medical [place] Smoking Status Start Date Stop Date Source Never smoker [facility] Medications Ordered Filled Start Stop Current Ordering Indication Dosage Frequency Signature Comments Components Source Medication Medication Date Date Medication? Clinician (SIG) Name Name pantoprazol 2020-0 Yes Univer s e 40 mg EC 5-19 ity of tablet 00:00: [place] [facility] pantoprazol 2020-0 Yes Univer s e 40 mg EC 5-19 ity of tablet 00:00: [place] 00 [facility] pantoprazol 2020-0 Yes Univer s e 40 mg EC 5-19 ity of tablet 00:00: [place] 00 [facility] pantoprazol 2020-0 Yes Univer s e 40 mg EC 5-19 ity of tablet 00:00: [place] 00 [facility] pantoprazol 2020-0 Yes Univer s e 40 mg EC 5-19 ity of tablet 00:00: [place] 00 [facility] pantoprazol 2020-0 Yes Univer s e 40 mg EC 5-19 ity of tablet 00:00: [place] 00 [facility] gabapentin 2020-0 Yes TAKE 1 Unive rs 800 mg 5-17 TABLET BY ity of tablet 00:00: MOUTH [place] EVERY 8 Medical HOURS Branch tiZANidine 2020-0 Yes Univers 6 mg 5-17 ity of capsule 00:00: [place] 00 [facility] gabapentin 2020-0 Yes TAKE 1 Unive rs 800 mg 5-17 TABLET BY ity of tablet 00:00: MOUTH [place] EVERY 8 Medical HOURS Branch tiZANidine 2020-0 Yes Univers 6 mg 5-17 ity of capsule 00:00: [place] 00 [facility] gabapentin 2020-0 Yes TAKE 1 Unive rs 800 mg 5-17 TABLET BY ity of tablet 00:00: MOUTH [place] EVERY 8 Medical HOURS Branch tiZANidine 2020-0 Yes Univers 6 mg 5-17 ity of capsule 00:00: [place] 00 [facility] gabapentin 2020-0 Yes TAKE 1 Unive rs 800 mg 5-17 TABLET BY ity of tablet 00:00: MOUTH [place] EVERY 8 Medical HOURS Branch tiZANidine 2020-0 Yes Univers 6 mg 5-17 ity of capsule 00:00: [place] 00 [facility] gabapentin 2020-0 Yes TAKE 1 Unive rs 800 mg 5-17 TABLET BY ity of tablet 00:00: MOUTH [place] EVERY 8 Medical HOURS Branch tiZANidine 2020-0 Yes Univers 6 mg 5-17 ity of capsule 00:00: [place] 00 [facility] gabapentin 2020-0 Yes TAKE 1 Unive rs 800 mg 5-17 TABLET BY ity of tablet 00:00: MOUTH [place] EVERY 8 Medical HOURS Branch tiZANidine 2020-0 Yes Univers 6 mg 5-17 ity of capsule 00:00: [place] 00 [facility] Branch HYDROcodone 2020-0 Yes TAKE 1 Univ ers -acetaminop 5-07 TABLET BY ity of hen 10-325 00:00: MOUTH [place] mg tablet 00 EVERY 6 Medical HOURS Branch NEEDED HYDROcodone 2020-0 Yes TAKE 1 Univ ers -acetaminop 5-07 TABLET BY ity of hen 10-325 00:00: MOUTH [place] mg tablet 00 EVERY 6 Medical HOURS Branch NEEDED HYDROcodone 2020-0 Yes TAKE 1 Univ ers -acetaminop 5-07 TABLET BY ity of hen 10-325 00:00: MOUTH [place] mg tablet 00 EVERY 6 Medical HOURS Branch NEEDED HYDROcodone 2020-0 Yes TAKE 1 Univ ers -acetaminop 5-07 TABLET BY ity of hen 10-325 00:00: MOUTH [place] mg tablet 00 EVERY 6 Medical HOURS Branch NEEDED HYDROcodone 2020-0 Yes TAKE 1 Univ ers -acetaminop 5-07 TABLET BY ity of hen 10-325 00:00: MOUTH [place] mg tablet 00 EVERY 6 Medical HOURS Branch NEEDED HYDROcodone 2020-0 Yes TAKE 1 Univ ers -acetaminop 5-07 TABLET BY ity of hen 10-325 00:00: MOUTH [place] mg tablet 00 EVERY 6 Medical HOURS Branch NEEDED MOVANTIK 25 2020-0 Yes 1{tbl} Take 1 Un luz [place] mg Tab 5-05 tablet by ity of 00:00: mouth [place] 00 every Medical morning. Branch MOVANTIK 25 2020-0 Yes 1{tbl} Take 1 Un luz [place] mg Tab 5-05 tablet by ity of 00:00: mouth [place] 00 every Medical morning. Branch MOVANTIK 25 2020-0 Yes 1{tbl} Take 1 Un luz [place] mg Tab 5-05 tablet by ity of 00:00: mouth [place] 00 every Medical morning. Branch MOVANTIK 25 2020-0 Yes 1{tbl} Take 1 Un luz [place] mg Tab 5-05 tablet by ity of 00:00: mouth [place] 00 every Medical morning. Branch MOVANTIK 25 2020-0 Yes 1{tbl} Take 1 Un luz [place] mg Tab 5-05 tablet by ity of 00:00: mouth [place] 00 every Medical morning. Branch MOVANTIK 25 2020-0 Yes 1{tbl} Take 1 Un luz [place] mg Tab 5-05 tablet by ity of 00:00: mouth [place] 00 every Medical morning. Branch lisinopril 2020-0 Yes 20mg Take 20 mg U nivers 20 mg 5-03 by mouth ity of tablet 00:00: daily. [place] 00 Medical Branch lisinopril 2020-0 Yes 20mg Take 20 mg U nivers 20 mg 5-03 by mouth ity of tablet 00:00: daily. Medical Branch lisinopril 2020-0 Yes 20mg Take 20 mg U nivers 20 mg 5-03 by mouth ity of tablet 00:00: daily. Medical Branch lisinopril 2019-0 Yes 20mg Take 20 mg U nivers 20 mg 5-03 by mouth ity of tablet 00:00: daily. [place] [facility] lisinopril 2020-0 Yes 20mg Take 20 mg U nivers 20 mg 5-03 by mouth ity of tablet 00:00: daily. [place] [facility] lisinopril 2019-0 Yes 20mg Take 20 mg U nivers 20 mg 5-03 by mouth ity of tablet 00:00: daily. [place] [facility] CARAFATE 2019-0 Yes TAKE 10 ML Uni vers 100 mg/mL 3-16 BY MOUTH 4 ity of suspension 00:00: TIMES [place] DAY BEFORE Medical MEALS Branch CARAFATE 2019-0 Yes TAKE 10 ML Uni vers 100 mg/mL 3-16 BY MOUTH 4 ity of [place] 00:00: TIMES [place] 00 DAY BEFORE Medical MEALS Branch CARAFATE 2019-0 Yes TAKE 10 ML Uni vers 100 mg/mL 3-16 BY MOUTH 4 ity of [place] 00:00: [place]ES [place] BEFORE Medical MEALS Branch CARAFATE 2019-0 Yes TAKE 10 ML Uni vers 100 mg/mL 3-16 BY MOUTH 4 ity of [place] 00:00: [place]ES [place] BEFORE Medical MEALS Branch CARAFATE 2019-0 Yes TAKE 10 ML Uni vers 100 mg/mL 3-16 BY MOUTH 4 ity of [place] 00:00: [place]ES [place] 00 DAY BEFORE Medical MEALS Branch CARAFATE 2019-0 Yes TAKE 10 ML Uni vers 100 mg/mL 3-16 BY MOUTH 4 ity of [place] 00:00: [place]ES [place] BEFORE [place] MEALS Branch Vital Signs Vital Name Observation Time Observation Value Comments Source Systolic blood 2019-06-29 14:16:00 137 mm[Hg] [facility]iver [facility]ity of [place] pressure Medical Branch Diastolic blood 2019-06-29 14:16:00 81 mm[Hg] [facility] [place] [facility] Heart rate 2019-06-29 14:16:00 52 /min Universi ty [facility] BMI 2019-06-29 14:11:00 29.69 kg/m2 Universi ty [facility] Body height 2019-06-29 14:11:00 185.4 cm Universi ty [facility] Body weight 2019-06-29 14:11:00 102.059 kg Universi ty [facility] Systolic blood 2019-06-29 14:16:00 137 mm[Hg] Univer sity of [facility] Diastolic blood 2019-06-29 14:16:00 81 mm[Hg] Unive rsity [facility] Heart rate 2019-06-29 14:16:00 52 /min Universi ty [facility] BMI 2019-06-29 14:11:00 29.69 kg/m2 Universi ty [facility] Body height 2019-06-29 14:11:00 185.4 cm Universi ty [facility] Body weight 2019-06-29 14:11:00 102.059 kg Universi ty [facility] Procedures This patient has no known procedures. Encounters Start End Encounter Admission Attending Care Care Encounter Source Date/Time Date/Time Type Type Clinicians Facility Department ID 2019-05-02 Inpatient [facility] [id number] Mem oria 07:39:00 [facility] 2020-04-27 2020-04-27 Outpatient [facility] [id number] Univers 09:45:00 09:45:00 ity [facility] 2020-04-06 2020-04-06 Outpatient Tawana MARRERO [facility] [id number] Univers 09:55:00 09:55:00 LOS ity [facility] 2020-04-04 2020-04-04 Letter Doctor MAYA [id number] Univers 00:00:00 00:00:00 (Out) Unassigned, BA [id number] ity of [place] [facility] [id number] Sukhjinder as [phone] [address] 2019-07-20 2019-07-20 Telephone Roger [facility] [id number] 00:00:00 00:00:[address] [facility] [id number] Surgical [id number] Specialti [id number] es [address] [place] 2019-07-20 2019-07-20 Telephone Roger [facility] [id number] Univers 00:00:00 00:00:00 Lisha [facility] [id number] it y of Surgical [id number] Sukhjinder as Specialti [id number] Me dical es [address] Branch [place] 2019-07-06 2019-07-06 Telephone Roger [facility] [id number] 00:00:00 00:00:00 Lisha [facility] [id number] Surgical [id number] Specialti [phone] es [address] [place] 2019-07-06 2019-07-06 Telephone Roger [facility] [id number] Univers 00:00:00 00:00:00 Lisha [facility] [id number] it y of Surgical [id number] Sukhjinder as Specialti [phone] Dc dical es 198 [facility] 2019-07-04 2019-07-04 Telephone Roger [facility] [id number] 00:00:00 00:00:00 Lisha [facility] [id number] Surgical [id number] Specialti [id number] es [address] [place] 2019-07-04 2019-07-04 Telephone Roger [facility] [id number] [facility] 00:00:00 00:00:00 Lisha [facility] [id number] it y of Surgical [id number] Sukhjinder as Specialti [id number] Dc dical es 198 [facility] 2019-06-29 2019-06-29 Office Roger [facility] [id number] 08:56:15 09:22:49 Visit Lisha [facility] [id number] Surgical [id number] Specialti [phone] es [address] [place] 2019-06-29 2019-06-29 Office Roger [facility] [id number] [facility] 08:56:15 09:22:49 Visit Lisha [facility] [id number] it y of Surgical [id number] Sukhjinder as Specialti [id number] Dc mal [address] 2019-06-29 2019-06-29 Outpatient Tawana PORTILLO [facility] [id number] [facility] 09:00:00 09:00:00 LISHA lundy [facility] 2019-04-11 2019-04-11 Outpatient [facility] [id number] [facility] 11:28:00 11:28:00 fitz Monzon l [facility] Results This patient has no known results.
[2020-12-22] MEDS: D5 0.45 NS 1,000 ML IV SCH (01:36)
[2020-12-22 05:36] LABS: Hematocrit 28.7 % (39.6-49.0); MPV 7.8 fL (7.6-11.3); RBC Red Blood Cell Count 3.04 M/uL (4.33-5.43)
[2020-12-22 05:51] LABS: Magnesium 1.5 mg/dL (1.8-2.4); Potassium 4.6 mmol/L (3.5-5.1)
[2020-12-22] MEDS: HYDROCODONE/APAP 10/325 TAB PO PRN (05:58)
[2020-12-22] MEDS: TIZANIDINE 4 MG TABLET PO SCH (05:58)
[2020-12-22] MEDS ORDERED: Magnesium Sulfate 2gm IVPB 2 G/50 ML BAG IV ONE (06:30)
[2020-12-22 08:02] VITALS: BP 135/82; TEMP 98.2
--- NOTE | 2020-12-22 20:43 | P.DS ---
Admission Date: 12/20/20 Discharge Date: 12/22/20 Disposition: AMA-LEFT AGAINST MEDICAL ADVIC Reason for Admission: MIGUEL, UTI Consultations: Nephrology - Dr. 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 Patient also reports intermittent dysuria over the last week as well as slightly increased frequency of loose stools. No recent change in medication. He states he has always been easily dehydrated since he had his gastric bypass. Very fatigued over last 2 days, sleeping most of the days. Unsure if he had a fever or not, states he always runs cold anyway. Denies nausea/vomiting. Last night was confused per , thought it was a different time / confused of what was going on. ER physician had requested admission for further evaluation / treatment. Hospital Course: Patient had improvement of his symptoms / MIGUEL / hyperkalemia with antibiotics and IV fluid. Nephrology was consulted for assistance with management. On 12/22, patient reported having a family emergency and had to leave the hospital. Upon my arrival to his room, I asked if everything was ok and if there was any way I could help. He responded with yelling and using expletives while describing how upset he was due to the conditions of his room, the uncomfortable bed, rough blankets, that blankets/sheets were changed within 24hrs, the temperature of his room, some of the staff, and accused me of being very rude / not listening to him when I admitted him. He went on to say that I was talking to him as though he were a child by asking him if everything was ok and if I could do anything to help with his family emergency. Patient stated the family emergency was an invasion of his privacy, that I should take him for his word, and I should learn how to talk to him. He went on to threaten me with harm - stating he has a short temper and I'm luis he has changed his ways. If we weren't in the hospital he would put me in my place. Patient demanded to leave the hospital. It was explained to him that he is leaving against medical advise at this time. He was still on IV fluids and urine culture was pending. He expressed understanding and that he didn't care. He signed AMA paperwork and left the hospital. I sent a prescription electronically to his pharmacy for Levaquin for 7 days to complete his treatment for UTI. Patient was informed of this prescription prior to leaving. He was advised to follow up with his PCP JUANITA and follow up with nephrology in the next few weeks. He should get blood work done within a week. Vital Signs/Physical Exam: Patient refused exam. Temp Pulse Resp BP Pulse Ox 98.2 F 61 18 135/82 97 12/22/20 08:00 12/22/20 08:00 12/22/20 08:00 12/22/20 08:00 12/22/20 08:00 Laboratory Data at Discharge: WBC 6.90 K/uL (4.3-10.9) D 12/22/20 05:24 Hgb 9.3 g/dL (13.6-17.9) L 12/22/20 05:24 Hct 28.7 % (39.6-49.0) L 12/22/20 05:24 Plt Count 275 K/uL (152-406) 12/22/20 05:24 PT 10.7 SECONDS (9.5-12.5) 12/20/20 10:30 INR 0.93 12/20/20 10:30 APTT 29.9 SECONDS (24.3-36.9) 12/20/20 10:30 Sodium 144 mmol/L (136-145) 12/22/20 05:24 Potassium 4.6 mmol/L (3.5-5.1) 12/22/20 05:24 BUN 15 mg/dL (7-18) 12/22/20 05:24 Creatinine 1.15 mg/dL (0.55-1.3) 12/22/20 05:24 Glucose 128 mg/dL (74-106) H 12/22/20 05:24 Uric Acid 5.9 mg/dL (3.5-7.2) 12/21/20 05:13 Phosphorus 2.5 mg/dL (2.5-4.9) 12/21/20 05:13 Magnesium Cancelled 12/22/20 14:00 Total Bilirubin 0.2 mg/dL (0.2-1.0) 12/21/20 05:13 AST 11 U/L (15-37) L 12/21/20 05:13 ALT 22 U/L (12-78) 12/21/20 05:13 Alkaline Phosphatase 114 U/L (45-117) 12/21/20 05:13 Amylase 50 U/L (25-115) 12/20/20 10:30 Lipase 91 U/L (73-393) 12/20/20 10:30 Home Medications: Gabapentin [Neurontin] 800 mg PO Q8H 04/02/19 Metformin HCl 1,000 mg PO DAILY PRN 04/02/19 Multivitamin [Daily Multiple Vitamin] 1 each PO DAILY 04/02/19 Tizanidine HCl [Zanaflex] 6 mg PO Q6H 04/02/19 Hydrocodone 7.5/APAP 325 [[place] 7.5/325 mg*] 1 tab PO Q6H PRN 08/18/19 Naloxegol Oxalate [Movantik] 25 mg PO DAILY 08/18/19 Amlodipine [Norvasc] 5 mg PO DAILY 12/20/20 Fluoxetine HCl [Prozac] 1 cap PO DAILY 12/20/20 Lisinopril [Zestril] 1 tab PO DAILY 12/20/20 Morphine *Extended Release* [MS Contin*] 1 tab PO DAILY 12/20/20 Zolpidem Tartrate [Ambien Cr] 1 tab PO BEDTIME 12/20/20 levoFLOXacin [Levaquin] 750 mg PO DAILY 7 Days #7 tab 12/22/20 New Medications: levoFLOXacin [Levaquin] 750 mg PO DAILY 7 Days #7 tab Followup: Barbara Garcia FNP [Primary Care Provider] - Time spent managing pt's care (in minutes): 45
== END 2020-12-22 08:10 | disposition left against medical advice (07) | DRG 683 ==
LOC: ER 08:57 → ERHOLD 13:06 → 2ND 15:33
PROVIDERS: ADMIT Hospitalist; ATTEND Hospitalist
DX: N17.9 Acute kidney failure, unspecified (principal); N39.0 Urinary tract infection, site not specified; E87.2 Acidosis; E44.0 Moderate protein-calorie malnutrition; E87.5 Hyperkalemia; G89.29 Other chronic pain; M54.9 Dorsalgia, unspecified; I12.9 Hypertensive chronic kidney disease with stage 1 through stage 4 chronic kidney disease, or unspecified chronic kidney disease; N18.30 Chronic kidney disease, stage 3 unspecified; E11.22 Type 2 diabetes mellitus with diabetic chronic kidney disease; E83.42 Hypomagnesemia; D63.8 Anemia in other chronic diseases classified elsewhere; Z98.84 Bariatric surgery status; Z79.899 Other long term (current) drug therapy; Z68.32 Body mass index [BMI] 32.0-32.9, adult; Z90.49 Acquired absence of other specified parts of digestive tract; Z79.84 Long term (current) use of oral hypoglycemic drugs; Z53.29 Procedure and treatment not carried out because of patient's decision for other reasons; Z20.822 Contact with and (suspected) exposure to COVID-19
CPT/HCPCS: 36415; 71045; 76770; 80048; 80053; 80076; 81001; 81003; 81015; 82150; 82550; 82553; 82570; 82947; 83605; 83690; 83735; 84100; 84132; 84145; 84300; 84484; 84550; 85025; 85027; 85610; 85730; 86850; 86900; 86901; 87040; 87077; 87086; 87088; 87186; 93005; 94760; 96365; 96366; 96367; 96375; 99285; J0610; J1650; J2270; J2405; J3475; J7030; J7799; U0003

== ENCOUNTER 2021-09-10 15:09 | Inpatient (IN) | payer BC, OTHER ==
--- OUTSIDE RECORDS SUMMARY | 2021-09-10 15:14 | XMS REPORT | Continuity of Care Document ---
:1975 Author Organization [facility] t Address [address] [place] [address] Dr. [address]. [address] [place] [address] Care Team Providers Name Role Phone CAROLINE VALLE Primary Care Physician Unavailable TANYA BOSS Attending Clinician Unavailable Tanya Boss MD Attending Clinician CAROLINE VALLE Attending Clinician Unavailable CHAPO JOHNSON Attending Clinician Unavailable MIRA BEDOYA Attending Clinician Unavailable SHAHEEN CACERES Attending Clinician Unavailable SIMBA NATHAN Attending Clinician Unavailable JASON TRAYLOR Attending Clinician Unavailable SANIYA MARCELO Attending Clinician Unavailable Chapo Johnson MD Attending Clinician MARY ESPANA Attending Clinician Unavailable LAB47 Attending Clinician Unavailable Diego Martin MD Attending Clinician JOSE G SUN Attending Clinician Unavailable NEY CARRILLO Attending Clinician Unavailable Jac SCRUGGS, Simba Attending Clinician LAB90 Attending Clinician Unavailable Leonard ASHER-Caroline Varghese Attending Clinician MD GEOVANNI Attending Clinician Unavailable CARMENCITA WASHINGTON Attending Clinician Unavailable LAB45 Attending Clinician Unavailable Jose G Sun MD Attending Clinician Jack Traylor Attending Clinician Unavailable JOSE GUEVARA Attending Clinician Unavailable EVIE GUSMAN Attending Clinician Unavailable Lukasz Duran MD Attending Clinician MAYA LANGLEY Attending Clinician Unavailable Caroline Valle Admitting Clinician Unavailable MAYA LANGLEY Admitting Clinician Unavailable Payers Payer Name Policy Type Policy Number Effective Date Expiration Date S shellce [employer] [id number] 2021 00:00:00 BCBS 2 [id number] 2021 00:00:00 Problems Condition Condition Condition Status Onset Resolution Last Treating Co mments Source Name Details Category Date Date Treatment Clinician Date 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, ulcer, 00:00: [place] left left Medical Branch Symptomati Symptomati Disease Active U nivers c c 5-09 it[place] of bradycardi bradycardi [place] [facility] [place] 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 5-09 ity of kidney kidney 00:00: [place] disease disease 00 Medical Branch Major Major Disease Active [place] 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 disorder disorder 00:00: 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 00 remission remission Iron Iron Disease Active [place] deficiency deficiency -27 Se [place] anemia anemia 00:00: secondary secondary 00 to to inadequate inadequate dietary dietary iron iron intake intake Intestinal Intestinal Disease Active Shahid schneider malabsorpt malabsorpt -27 Se [place] ion ion 00:00: 00 Chronic Chronic Disease Active [place] pain 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-06 Seybold syndrome - syndrome - 00:00: Controlled Controlled 00 Slow Slow Disease Active [place] transit transit 03-06 Sey[place] constipati constipati 00:00: on - Not on - Not 00 Controlled Controlled 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 03-06 [place] valgum valgum 00:00: 00 Dislocatio Dislocatio Disease Active K elsey n of right n of right 03-06 Se [facility] knee knee 00:00: 00 History of History of Disease Active K elsemargaret torn torn 03-06 Seybold meniscus meniscus 00:00: of right of right 00 knee - Not knee - Not Controlled Controlled Numbness Numbness Disease Active Kelse y in left in left 03-06 [place] leg leg 00:00: 00 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 03-06 [place] low back low back 00:00: pain with pain with 00 sciatica sciatica Hypertensi Hypertensi Disease Active K elsey on on 03-06 Seybold 00:00: 00 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[place] chronic chronic 03-06 [place] kidney kidney 00:00: disease disease 00 Phimosis Phimosis Disease Active Kelse y of penis - of penis - 03-06 Se ybold Not Not 00:00: Controlled Controlled 00 Recurrent Recurrent Disease Active Cole sey UTI - Not UTI - Not 03-06 Seyb old Controlled Controlled 00:00: 00 Prediabete Prediabete Disease Active K elsey s - s - 03-06 Seybold Controlled Controlled 00:00: 00 MIGUEL (acute MIGUEL (acute Disease Active 2020-02 U nivers kidney kidney 2-06 ity of injury) injury) 00:00: [place] [address] Medical Branch Obesity Obesity Disease Active 2020-02 [facility] (BMI (BMI 2-06 ity of 30-39.9) 30-39.9) 00:00: [place] [address] Medical Branch Primary Primary Disease Active 2020-02 [facility] hypertensi hypertensi 2-06 it y of on on 00:00: [place] 00 Medical Branch Type 2 Type 2 Disease Active 2020-02 [facility] diabetes diabetes 2 ity of mellitus mellitus 00:00: [place] without without 00 Medical complicati complicati Br anch on, on, without without long-term long-term current current use of use of insulin insulin Elevated Elevated Disease Active 2020-02 Unive rs brain brain 2-06 ity of natriureti natriureti [place] c peptide c peptide 00 Medi damien (BNP) (BNP) Branch level level Anemia Anemia Disease Active 2020-02 [facility] 2-06 ity of 00:00: [place] 00 Medical Branch Hyperkalem Hyperkalem Disease Active 2020-02 U nivers ia ia 03-15 ity of 00:00: [address] Allergies, Adverse Reactions, Alerts Allergy Allergy Status Severity Reaction(s) Onset Inactive Treating Comm ents Source Name Type Date Date Clinician No Known DA Active [facility] 06-04 [place] Intolera 00:00: d [address] NO KNOWN Drug Active [facility] ALLERGIE Class ity of S [facility] Social History Social Habit Start Date Stop Date Quantity Comments Source Exposure to 2021-08-26 2021-09-05 Not sure [facility] SARS-CoV-2 00:00:00 13:18:00 [facility] (event) [place] Alcohol intake 2021-06-25 2021-06-25 Ex-drinker [place] antonio 00:00:00 00:00:00 (finding) Tobacco use and 2021-06-04 2021-06-04 Smokeless tobacco Ez chaidezcaitie Brady exposure 00:00:00 00:00:00 non-user Sex [birth year] M [place] peterson 00:00:00 00:00:00 Smoking Status Start Date Stop Date Source Never smoked tobacco [place] Medications Ordered Filled Start Stop Current Ordering Indication Dosage Frequency Signature Comments Components Source Medication Medication Date Date Medication? Clinician (SIG) Name Name prednisoLON Yes [id number] 1[drp] Place 1 Univers E acetate 09-05 [id number] Drop in ity o f (PRED 00:00: left eye 4 [facility]) 1 % 00 (four) Medical ophthalmic times Branch suspension daily. drops moxifloxaci Yes [id number] 1[drp] Place 1 Univers n 0.5 % 7-01 9102 Drop in ity of ophthalmic 00:00: left eye 4 [place] drops 00 (four) Medical times Branch daily. ketorolac Yes [id number] 1[drp] Place 1 Univers 0.5 % 6-07 9102 Drop in ity of ophthalmic 00:00: left eye 4 [place] solution 00 (four) Medical times Branch daily. hydroCHLORO Yes [id number] 25mg Take 2 [facility] thiazide 5-29 9102 capsules ity of 12.5 mg 00:00: by mouth [place] capsule 00 daily. Medical Branch tiZANidine Yes 6mg Take 6 mg Un luz marina 2 mg 5-28 by mouth ity of capsule 17:49: every 6 [place] 34 (six) Medical hours. Branch FLUoxetine Yes 40mg Take 40 mg U nivers 40 mg 5-28 by mouth ity of capsule 17:49: daily. [address] Branch naloxegoL Yes 25mg Take 25 mg Un luz marina (MOVANTIK) 5-28 by mouth ity o f 25 mg Tab 17:49: daily. [address] Branch ferrous Yes 325mg Take 325 Unive rs sulfate 325 5-28 mg by ity of mg (65 mg 17:49: mouth [place] iron) 34 every Medical tablet other day. Branch HYDROcodone Yes 1{tbl} Take 1 Un luz marina -acetaminop 5-28 tablet by ity of hen (NORCO) 17:49: mouth [place] 10-325 mg 34 every 6 Medical tablet (six) Branch hours as needed for Pain (scale 7-10). doxepin HCl Yes 75mg Take 75 mg Univers (DOXEPIN 5-28 by mouth ity of ORAL) 17:49: every [place] 34 evening. Medical Branch morphine ER Yes 15mg Take 15 mg Univers 15 mg 12 hr 5-28 by mouth ity of tablet 17:49: daily. [address] Branch docusate Yes 100mg Take 100 Univ ers 100 mg 5-28 mg by ity of capsule 17:49: mouth [place] 34 daily. Medical Branch nystatin Yes Apply to Unive rs 100,000 5- area(s) 2 ity of unit/gram 17:49: (two) [place] cream 34 times Medical daily. Branch ondansetron Yes 4mg Take 4 mg U nivers 4 mg 5-28 by mouth ity of disintegrat 17:49: every 8 Sukhjinder as ing tablet 34 (eight) Medica l hours as Branch needed for Nausea and Vomiting (N/V). natamycin 5 Yes [id number] 1[drp] Place 1 Univers % 5-28 9102 Drop in ity of ophthalmic 00:00: left eye Sukhjinder as suspension 00 every 2 Medica l drops (two) Branch hours. erythromyci Yes [id number] .5[in_u Place 0.5 Univers n 5 mg/gram 5-28 9102 s] Inches in ity of (0.5 %) 00:00: left eye [place] ophthalmic 00 at Medical ointment bedtime. Branch hydrALAZINE Yes [id number] 5mg Take 0.5 Univers 10 mg 5-28 9102 tablets by ity of tablet 00:00: mouth 2 [place] 00 (two) Medical times Branch daily. HYDROcodone Yes [id number] Take by [place] -Acetaminop 5-18 mouth Seybold hen 10-325 11:11: MG oral 20 Tablet Metoprolol 0 Yes [id number] 50mg TAKE 1 K elsey Tartrate 50 5-09 TABLET (50 Se ybold MG oral 00:00: MG TOTAL) Tablet 00 BY MOUTH IN THE MORNING AND 1 TABLET (50 MG TOTAL) IN THE EVENING. hydroCHLORO 0 Yes [id number] 25mg TAKE 1 [place] thiazide 25 5-09 TABLET (25 Se ybold MG oral 00:00: MG TOTAL) Tablet 00 BY MOUTH DAILY. Metoprolol 0 Yes [id number] 50mg TAKE 1 K elsey Tartrate 50 5-09 TABLET (50 Se ybold MG oral 00:00: MG TOTAL) Tablet 00 BY MOUTH IN THE MORNING AND 1 TABLET (50 MG TOTAL) IN THE EVENING. hydroCHLORO 2021-0 Yes [id number] 25mg TAKE 1 [place] thiazide 25 5-09 TABLET (25 Se ybold MG oral 00:00: MG TOTAL) Tablet 00 BY MOUTH DAILY. Nystatin Yes [id number] APPLY 1 Ke lsey [id number] 4-28 APPLICATIO Seybold UNIT/GM 00:00: N apply 00 TOPICALLY externally 3 TIMES Powder DAILY. Nystatin Yes [id number] APPLY 1 Ke lsey [id number] 4-28 APPLICATIO Seybold UNIT/GM 00:00: N apply 00 TOPICALLY externally 3 TIMES Powder DAILY. HYDROcodone Yes [id number] Take by [place] -Acetaminop 4-15 mouth Seybold hen 10-325 11:36: MG oral 16 Tablet HYDROcodone Yes [id number] Take by [place] -Acetaminop 4-15 mouth Seybold hen 10-325 11:36: MG oral 16 Tablet Acarbose 50 Yes Take one Ke lsey MG oral 4-13 tablet Seybold Tablet 00:00: daily 00 before largest meal of the day Acarbose 50 Yes Take one Ke lsey MG oral 4-13 tablet Seybold Tablet 00:00: daily 00 before largest meal of the day Acarbose 50 0 Yes Take one Ke lsey MG oral 4-13 tablet Seybold Tablet 00:00: daily 00 before largest meal of the day Methylpredn 2021- No [id number] 40mg [place] isolone -05-16 Seybold Acetate 16:45: 16:37 (Depo-Medro 00 :00 l) 40 mg/ml - Physician Administere d (J1030) Methylpredn 2021- No [id number] 40mg 40 mg, [place] isolone -05-16 Physician Seybol d Acetate 16:45: 16:37 Administer (Depo-Medro 00 :00 ed, ONCE, l) 40 mg/ml 1 dose, On - Physician 05/16/21 Administere at 1145 d (J1030) HYDROcodone Yes [id number] Take by [place] -Acetaminop 4-08 mouth Seybold hen 10-325 10:52: MG oral 25 Tablet HYDROcodone 2021-0 Yes [id number] Take by [place] -Acetaminop 3-29 mouth Seybold hen 10-325 09:51: MG oral 33 Tablet hydroCHLORO 2022-0 Yes [id number] 25mg Take 1 [place] thiazide 25 3-29 tablet (25 Se ybold MG oral 00:00: mg total) Tablet 00 by mouth daily Nystatin Yes [id number] Apply 1 Ke lsey [id number] 3-29 applicatio Seybold UNIT/GM 00:00: n apply 00 topically externally 3 times Powder daily Ondansetron 0 Yes [id number] 4mg Q.[id number] Take 1 [place] (Zofran 3-29 [id number] tablet (4 S eybold ODT) 4 MG 00:00: 3D mg total) oral TABLET 00 by mouth DISPERSIBLE every 8 hours as needed for nausea hydroCHLORO 0 Yes [id number] 25mg Take 1 [place] thiazide 25 3-29 tablet (25 Se ybold MG oral 00:00: mg total) Tablet 00 by mouth daily Nystatin 0 Yes [id number] Apply 1 Ke lsey [id number] 3-29 applicatio Seybold UNIT/GM 00:00: n apply 00 topically externally 3 times Powder daily Ondansetron 0 Yes [id number] 4mg Q.[id number] Take 1 [place] (Zofran 3-29 [id number] tablet (4 S eybold ODT) 4 MG 00:00: 3D mg total) oral TABLET 00 by mouth DISPERSIBLE every 8 hours as needed for nausea hydroCHLORO 0 Yes [id number] 25mg Take 1 [place] thiazide 25 3-29 tablet (25 Se ybold MG oral 00:00: mg total) Tablet 00 by mouth daily Nystatin 0 Yes [id number] Apply 1 Ke lsey [id number] 3-29 applicatio Seybold UNIT/GM 00:00: n apply 00 topically externally 3 times Powder daily Ondansetron 0 Yes [id number] 4mg Q.[id number] Take 1 [place] (Zofran 3-29 [id number] tablet (4 S eybold ODT) 4 MG 00:00: 3D mg total) oral TABLET 00 by mouth DISPERSIBLE every 8 hours as needed for nausea Ondansetron 2021-0 Yes [id number] 4mg Q.[id number] Take 1 [place] (Zofran 3-29 [id number] tablet (4 S eybold ODT) 4 MG 00:00: 3D mg total) oral TABLET 00 by mouth DISPERSIBLE every 8 hours as needed for nausea Ondansetron 2021-0 Yes [id number] 4mg Q.[id number] Take 1 [place] (Zofran 3-29 [id number] tablet (4 S eybold ODT) 4 MG 00:00: 3D mg total) oral TABLET 00 by mouth DISPERSIBLE every 8 hours as needed for nausea HYDROcodone 2021-0 Yes [id number] Take by [place] -Acetaminop 3-25 mouth Seybold hen 10-325 10:27: MG oral 08 Tablet Pantoprazol 2021-0 Yes [place] e Sodium 40 3-25 Seybold MG oral 00:00: Tablet 00 Delayed Response Pantoprazol 2021-0 Yes [place] e Sodium 40 3-25 Seybold MG oral 00:00: Tablet 00 Delayed Response Pantoprazol 2021-0 Yes [place] e Sodium 40 3-25 Seybold MG oral 00:00: Tablet 00 Delayed Response Pantoprazol 2021-0 Yes [place] e Sodium 40 3-25 Seybold MG oral 00:00: Tablet 00 Delayed Response Pantoprazol 2021-0 Yes [place] e Sodium 40 3-25 Seybold MG oral 00:00: Tablet 00 Delayed Response Cosyntropin 2021-0 2021- No [id number] .25mg [place] (CORTROSYN) 04-30- Seybold 0.25 mg 14:15: 14:21 00 :00 Cosyntropin 2021-0 2021- No [id number] .25mg 0.25 mg, [place] (CORTROSYN) 04-30- intramuscu S eybold 0.25 mg 14:15: 14:21 lar, ONCE, 00 :00 1 dose, On Wed04/30/21 at 0915 Tizanidine 2021-0 2021- No [id number] every 6 [place] HCl 2 MG 04-30- (six) Seybold oral 08:46: 00:00 hours Capsule 51 :00 HYDROcodone 2021-0 Yes [id number] Take by [place] -Acetaminop 3-23 mouth Seybold hen 10-325 08:46: MG oral 49 Tablet Sodium Yes [place] Bicarbonate 3-20 Seybold 325 MG oral 00:00: Tablet 00 Sodium Yes [place] Bicarbonate 3-20 Seybold 325 MG oral 00:00: Tablet 00 Sodium 2021- No [place] Bicarbonate 3-20 03-29 Seybold 325 MG oral 00:00: 00:00 Tablet 00 :00 Continuous Yes Use daily Ke lsey Blood Gluc 3-15 to check Seybo ld Transmit 00:00: blood 3-4 (Dexcom G6 00 times and Transmitter as needed. ) does not apply Misc Continuous Yes Use daily Ke lsey Blood Gluc 3-15 to check Seybo ld Transmit 00:00: blood 3-4 (Dexcom G6 00 times and Transmitter as needed. ) does not apply Misc Continuous Yes Use daily Ke lsey Blood Gluc 3-15 to check Seybo ld Transmit 00:00: blood 3-4 (Dexcom G6 00 times and Transmitter as needed. ) does not apply Misc Continuous Yes Use daily Ke lsey Blood Gluc 3-15 to check Seybo ld Transmit 00:00: blood 3-4 (Dexcom G6 00 times and Transmitter as needed. ) does not apply Misc Continuous Yes Use daily Ke lsey Blood Gluc 3-15 to check Seybo ld Transmit 00:00: blood 3-4 (Dexcom G6 00 times and Transmitter as needed. ) does not apply Misc Continuous Yes Use daily Ke lsey Blood Gluc 3-15 to check Seybo ld Transmit 00:00: blood 3-4 (Dexcom G6 00 times and Transmitter as needed. ) does not apply Misc Continuous Yes Use daily Ke lsey Blood Gluc 3-15 to check Seybo ld Transmit 00:00: blood 3-4 (Dexcom G6 00 times and Transmitter as needed. ) does not apply Misc Metoprolol Yes [id number] 50mg Take 1 K elsey Tartrate 50 3-08 tablet (50 Se ybold MG oral 00:00: mg total) Tablet 00 by mouth in the morning and 1 tablet (50 mg total) in the evening. Docusate Yes [id number] 100mg Take 100 [place] Sodium 100 3-08 mg by Seybold MG oral 00:00: mouth 2 Tablet 00 times daily Metoprolol 2021-0 Yes [id number] 50mg Take 1 K elsey Tartrate 50 3-08 tablet (50 Se ybold MG oral 00:00: mg total) Tablet 00 by mouth in the morning and 1 tablet (50 mg total) in the evening. Docusate 2021-0 Yes [id number] 100mg Take 100 [place] Sodium 100 3-08 mg by Seybold MG oral 00:00: mouth 2 Tablet 00 times daily Metoprolol 2021-0 Yes [id number] 50mg Take 1 K elsey Tartrate 50 3-08 tablet (50 Se ybold MG oral 00:00: mg total) Tablet 00 by mouth in the morning and 1 tablet (50 mg total) in the evening. Docusate 2021-0 Yes [id number] 100mg Take 100 [place] Sodium 100 3-08 mg by Seybold MG oral 00:00: mouth 2 Tablet 00 times daily Metoprolol 2021-0 Yes [id number] 50mg Take 1 K elsey Tartrate 50 3-08 tablet (50 Se ybold MG oral 00:00: mg total) Tablet 00 by mouth in the morning and 1 tablet (50 mg total) in the evening. Docusate 2021-0 Yes [id number] 100mg Take 100 [place] Sodium 100 3-08 mg by Seybold MG oral 00:00: mouth 2 Tablet 00 times daily Metoprolol 2021-0 Yes [id number] 50mg Take 1 K elsey Tartrate 50 3-08 tablet (50 Se ybold MG oral 00:00: mg total) Tablet 00 by mouth in the morning and 1 tablet (50 mg total) in the evening. Docusate 2021-0 Yes [id number] 100mg Take 100 [place] Sodium 100 3-08 mg by Seybold MG oral 00:00: mouth 2 Tablet 00 times daily Docusate 2021-0 Yes [id number] 100mg Take 100 [place] Sodium 100 3-08 mg by Seybold MG oral 00:00: mouth 2 Tablet 00 times daily Docusate 2021-0 Yes [id number] 100mg Take 100 [place] Sodium 100 3-08 mg by Seybold MG oral 00:00: mouth 2 Tablet 00 times daily Tizanidine 2021-0 Yes [id number] every 6 [place] HCl 2-28 (six) Seybold (Zanaflex) 08:53: hours 2 MG oral 51 Capsule HYDROcodone Yes [id number] Take by [place] -Acetaminop 2-28 mouth Seybold hen 10-325 08:53: MG oral 32 Tablet Fluoxetine 2021- No [id number] Take by [place] HCl 20 MG 2-24 02-24 mouth 2 Seybol d oral 15:04: 00:00 times Capsule 25 :00 daily Metformin 2021- No [id number] 1000mg Take 1,000 [place] HCl 1000 MG 2-23 02-23 mg by Seybol d oral Tablet 10:44: 00:00 mouth 42 :00 daily Continuous Yes [id number] Check K elsey Blood Gluc 2-23 Seybold Sensor 00:00: (Dexcom G6 00 Sensor) does not apply Misc Continuous Yes [id number] Check K elsey Blood Gluc 2-23 sugar 4 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: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 (Dexcom G4 00 daily and [place] as needed Rcv/Share) does not apply Device Continuous 0 Yes [id number] Check K elsey Blood Gluc 2-23 Seybold Sensor 00:00: (Dexcom G6 00 Sensor) does not apply Misc Continuous 2021-0 Yes [id number] Check K elsey Blood Gluc 2-23 sugar 4 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:00: times (Dexcom G4 00 daily and [place] as needed Rcv/Share) does not apply Device Continuous 0 Yes [id number] Check K elsey Blood Gluc 2-23 Seybold Sensor 00:00: (Dexcom G6 00 Sensor) does not apply Misc Continuous 2021-0 Yes [id number] Check K elsey Blood Gluc 2-23 sugar 4 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:00: 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 (Dexcom G4 00 daily and [place] as needed Rcv/Share) does not apply Device Continuous 2021-0 Yes [id number] Check K elsey Blood Gluc 2-23 Seybold Sensor 00:00: (Dexcom G6 00 Sensor) does not apply Misc Continuous 2021-0 Yes [id number] Check K elsey Blood Gluc 2-23 sugar 4 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:00: times (Dexcom G4 00 daily and [place] as needed Rcv/Share) does not apply Device Continuous 2-0 Yes [id number] Check K elsey Blood Gluc 2-23 Seybold Sensor 00:00: (Dexcom G6 00 Sensor) does not apply Misc Continuous 2021-0 Yes [id number] Check K elsey Blood Gluc 2-23 sugar 4 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: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 (Dexcom G4 00 daily and [place] as needed Rcv/Share) does not apply Device Continuous 2021-0 Yes [id number] Check K elsey Blood Gluc 2-23 Seybold Sensor 00:00: (Dexcom G6 00 Sensor) does not apply Misc Continuous 2021-0 Yes [id number] Check K elsey Blood Gluc 2-23 sugar 4 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:00: times (Dexcom G4 00 daily and [place] as needed Rcv/Share) does not apply Device Continuous 2021-0 Yes [id number] Check K elsey Blood Gluc 2-23 Seybold Sensor 00:00: (Dexcom G6 00 Sensor) does not apply Misc Continuous 2021-0 Yes [id number] Check K elsey Blood Gluc 2-23 sugar 4 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:00: times (Dexcom G4 00 daily and [place] as needed Rcv/Share) does not apply Device Continuous 2021-0 Yes [id number] Check K elsey Blood Gluc 2-23 Seybold Sensor 00:00: (Dexcom G6 00 Sensor) does not apply Misc Continuous 2021-0 Yes [id number] Check K elsey Blood Gluc 2-23 sugar 4 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:00: times (Dexcom G4 00 daily and [place] as needed Rcv/Share) does not apply Device Continuous 2021-0 Yes [id number] Check K elsey Blood Gluc 2-23 Seybold Sensor 00:00: (Dexcom G6 00 Sensor) does not apply Misc Continuous 2021-0 Yes [id number] Check K elsey Blood Gluc 2-23 sugar 4 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:00: times (Dexcom G4 00 daily and [place] as needed Rcv/Share) does not apply Device Docusate 2021-0 Yes [place] Sodium 100 2-22 Seybold MG oral 00:00: Capsule 00 Docusate 2-0 Yes [place] Sodium 100 2-22 Seybold MG oral 00:00: Capsule 00 Docusate 2021-0 2021- No [place] Sodium 100 2-29 04- Seybold MG oral 00:00: 00:00 Capsule 00 :00 Lisinopril 2-0 2021- No [place] 40 MG oral 04-0124 Seybold Tablet 00:00: 00:00 00 :00 Tamsulosin 2021-0 Yes 1{capsu Take 1 Ke lsey HCl 0.4 MG 2-18 le} capsule by Sey bold oral 00:00: mouth Capsule 00 daily Amlodipine 2021-0 Yes 10mg Take 10 mg K elsey Besylate 10 2-18 by mouth Seyb old MG oral 00:00: daily Tablet 00 Tamsulosin 2021-0 Yes 1{capsu Take 1 Ke lsey HCl 0.4 MG 2-18 le} capsule by Sey bold oral 00:00: mouth Capsule 00 daily Amlodipine 2021-0 Yes 10mg Take 10 mg K elsey Besylate 10 2-18 by mouth Seyb old MG oral 00:00: daily Tablet 00 Tamsulosin 2021-0 Yes 1{capsu Take 1 Ke lsey HCl 0.4 MG 2-18 le} capsule by Sey bold oral 00:00: mouth Capsule 00 daily Amlodipine 2021-0 Yes 10mg Take 10 mg K elsey Besylate 10 2-18 by mouth Seyb old MG oral 00:00: daily Tablet 00 Tamsulosin 2021-0 Yes 1{capsu Take 1 Ke lsey HCl 0.4 MG 2-18 le} capsule by Sey bold oral 00:00: mouth Capsule 00 daily Amlodipine 2021-0 Yes 10mg Take 10 mg K elsey Besylate 10 2-18 by mouth Seyb old MG oral 00:00: daily Tablet 00 Tamsulosin 2021-0 Yes 1{capsu Take 1 Ke lsey HCl 0.4 MG 2-18 le} capsule by Sey bold oral 00:00: mouth Capsule 00 daily Tamsulosin 2021-0 Yes 1{capsu Take 1 Ke lsey HCl 0.4 MG 2-18 le} capsule by Sey bold oral 00:00: mouth Capsule 00 daily Tamsulosin 2021-0 Yes 1{capsu Take 1 Ke lsey HCl 0.4 MG 2-18 le} capsule by Sey bold oral 00:00: mouth Capsule 00 daily Tamsulosin 0 Yes 1{capsu Take 1 Ke lsey HCl 0.4 MG 2-18 le} capsule by Sey bold oral 00:00: mouth Capsule 00 daily Tamsulosin 0 Yes 1{capsu Take 1 Ke lsey HCl 0.4 MG 2-18 le} capsule by Sey bold oral 00:00: mouth Capsule 00 daily Amlodipine 0 2021- No 10mg Take 10 mg [place] Besylate 10 18 05-06 by mouth Sey bold MG oral 00:00: 00:00 daily Tablet 00 :00 Metoprolol 2021-0 Yes [id number] TAKE 1 K elsey Tartrate 50 2-17 TABLET BY Sey bold MG oral 00:00: MOUTH 2 Tablet 00 TIMES DAILY Tizanidine 0 Yes TAKE 3 Kelse y HCl 2 MG 2-17 TABLETS BY Seybo ld oral Tablet 00:00: MOUTH 00 EVERY 6 HOURS Metoprolol 2021-0 Yes [id number] TAKE 1 K elsey Tartrate 50 2-17 TABLET BY Sey bold MG oral 00:00: MOUTH 2 Tablet 00 TIMES DAILY Tizanidine 2021-0 Yes TAKE 3 Kelse y HCl 2 MG 2-17 TABLETS BY Seybo ld oral Tablet 00:00: MOUTH 00 EVERY 6 HOURS Tizanidine 2021-0 Yes TAKE 3 Kelse y HCl 2 MG 2-17 TABLETS BY Seybo ld oral Tablet 00:00: MOUTH 00 EVERY 6 HOURS Tizanidine 2021-0 Yes TAKE 3 Kelse y HCl 2 MG 2-17 TABLETS BY Seybo ld oral Tablet 00:00: MOUTH 00 EVERY 6 HOURS Tizanidine 2021-0 Yes TAKE 3 Kelse y HCl 2 MG 2-17 TABLETS BY Seybo ld oral Tablet 00:00: MOUTH 00 EVERY 6 HOURS Tizanidine 2021-0 Yes TAKE 3 Kelse y HCl 2 MG 2-17 TABLETS BY Seybo ld oral Tablet 00:00: MOUTH 00 EVERY 6 HOURS Tizanidine 2021-0 Yes TAKE 3 Kelse y HCl 2 MG 2-17 TABLETS BY Seybo ld oral Tablet 00:00: MOUTH 00 EVERY 6 HOURS Tizanidine 2021-0 Yes TAKE 3 Kelse y HCl 2 MG 2-17 TABLETS BY Seybo ld oral Tablet 00:00: MOUTH 00 EVERY 6 HOURS Tizanidine 2021-0 Yes TAKE 3 Kelse y HCl 2 MG 2-17 TABLETS BY Seybo ld oral Tablet 00:00: MOUTH 00 EVERY 6 HOURS Fluoxetine 2021-0 Yes 40mg Take 40 mg K elsey HCl 40 MG 2-11 by mouth Seybol d oral 00:00: daily Capsule Fluoxetine 2021-0 Yes 40mg Take 40 mg K elsey HCl 40 MG 2-11 by mouth Seybol d oral 00:00: daily Capsule Fluoxetine 2021-0 Yes 40mg Take 40 mg K elsey HCl 40 MG 2-11 by mouth Seybol d oral 00:00: daily Capsule Fluoxetine 2021-0 Yes 40mg Take 40 mg K elsey HCl 40 MG 2-11 by mouth Seybol d oral 00:00: daily Capsule Fluoxetine 2021-0 Yes 40mg Take 40 mg K elsey HCl 40 MG 2-11 by mouth Seybol d oral 00:00: daily Capsule Fluoxetine 2021-0 Yes 40mg Take 40 mg K elsey HCl 40 MG 2-11 by mouth Seybol d oral 00:00: daily Capsule Fluoxetine 2021- Yes 40mg Take 40 mg K elsey HCl 40 MG 2-11 by mouth Seybol d oral 00:00: daily Capsule Fluoxetine 2021-0 Yes 40mg Take 40 mg K elsey HCl 40 MG 2-11 by mouth Seybol d oral 00:00: daily Capsule Fluoxetine 2021-0 Yes 40mg Take 40 mg K elsey HCl 40 MG 2-11 by mouth Seybol d oral 00:00: daily Capsule Doxepin HCl 2021-0 Yes TAKE 1 Wanda ey 75 MG oral 1-31 CAPSULE Seybol d Capsule 00:00: (75 MG) BY 00 MOUTH DAILY AT BEDTIME Doxepin HCl 2021-0 Yes TAKE 1 Wanda ey 75 MG oral 1-31 CAPSULE Seybol d Capsule 00:00: (75 MG) BY 00 MOUTH DAILY AT BEDTIME Doxepin HCl 2021-0 Yes TAKE 1 Wanda ey 75 MG oral 1-31 CAPSULE Seybol d Capsule 00:00: (75 MG) BY 00 MOUTH DAILY AT BEDTIME Doxepin HCl 2021-0 Yes TAKE 1 Wanda ey 75 MG oral 1-31 CAPSULE Seybol d Capsule 00:00: (75 MG) BY 00 MOUTH DAILY AT BEDTIME Doxepin HCl Yes TAKE 1 Wanda ey 75 MG oral 1-31 CAPSULE Seybol d Capsule 00:00: (75 MG) BY 00 MOUTH DAILY AT BEDTIME Doxepin HCl 2021-0 Yes TAKE 1 Wanda ey 75 MG oral 1-31 CAPSULE Seybol d Capsule 00:00: (75 MG) BY 00 MOUTH DAILY AT BEDTIME Doxepin HCl 2021-0 Yes TAKE 1 Wanda ey 75 MG oral 1-31 CAPSULE Seybol d Capsule 00:00: (75 MG) BY 00 MOUTH DAILY AT BEDTIME Doxepin HCl Yes TAKE 1 Wanda ey 75 MG oral 1-31 CAPSULE Seybol d Capsule 00:00: (75 MG) BY 00 MOUTH DAILY AT BEDTIME Doxepin HCl 2021- Yes TAKE 1 Wanda ey 75 MG oral 1-31 CAPSULE Seybol d Capsule 00:00: (75 MG) BY 00 MOUTH DAILY AT BEDTIME Fluoxetine 2021-0 Yes [id number] Take by Cheyenne HCl 20 MG 1-27 mouth 2 Seybold oral 08:05: times Capsule 51 daily Metformin 2021-0 Yes [id number] 1000mg Take 1,000 [place] HCl 1000 MG 1-27 mg by Seybold oral Tablet 08:05: mouth 32 daily HYDROcodone 2021-0 Yes [id number] Take by Cheyenne -Acetaminop 1-27 mouth Seybold hen 10-325 08:05: MG oral 25 Tablet Tizanidine 2021-0 Yes [id number] every 6 Cheyenne HCl 1-27 (six) Seybold (Zanaflex) 08:05: hours 2 MG oral 25 Capsule HYDROcodone 2021-0 Yes [id number] Take by Che[place] -Acetaminop 1-27 mouth Seybold hen 10-325 08:05: MG oral 25 Tablet Tizanidine 2021-0 Yes [id number] every 6 [place] HCl 1-27 (six) Seybold (Zanaflex) 08:05: hours 2 MG oral 25 Capsule Docusate 2021-0 Yes [id number] 100mg Take 100 Cheyenne Sodium 100 1-26 mg by Seybold MG oral 00:00: mouth 2 Tablet 00 times daily Sennosides 2021-0 Yes [id number] 1{capsu Take 1 Cheyenne (Senna) 8.6 1-26 le} capsule by Se ybold MG oral 00:00: mouth Capsule 00 daily Docusate Yes [id number] 100mg Take 100 Che[place] Sodium 100 1-26 mg by Seybold MG oral 00:00: mouth 2 Tablet 00 times daily Sennosides Yes [id number] 1{capsu Take 1 Cheyenne (Senna) 8.6 1-26 le} capsule by Se ybold MG oral 00:00: mouth Capsule 00 daily Sennosides 0 Yes [id number] 1{capsu Take 1 Che[place]enne (Senna) 8.6 1-26 le} capsule by Se ybold MG oral 00:00: mouth Capsule 00 daily Sennosides Yes [id number] 1{capsu Take 1 Che[place]enne (Senna) 8.6 1-26 le} capsule by Se ybold MG oral 00:00: mouth Capsule 00 daily Sennosides 0 Yes [id number] 1{capsu Take 1 Che[place]enne (Senna) 8.6 1-26 le} capsule by Se ybold MG oral 00:00: mouth Capsule 00 daily Sennosides 0 Yes [id number] 1{capsu Take 1 [place]enne (Senna) 8.6 1-26 le} capsule by Se ybold MG oral 00:00: mouth Capsule 00 daily Sennosides 0 Yes [id number] 1{capsu Take 1 Cheyenne (Senna) 8.6 1-26 le} capsule by Se ybold MG oral 00:00: mouth Capsule 00 daily Sennosides 0 Yes [id number] 1{capsu Take 1 [place] (Senna) 8.6 1-26 le} capsule by Se ybold MG oral 00:00: mouth Capsule 00 daily Metoprolol Yes [id number] 50mg Take 1 K elsey Tartrate 50 1-26 tablet (50 Se ybold MG oral 00:00: mg total) Tablet 00 by mouth 2 times daily Sennosides Yes [id number] 1{capsu Take 1 Che[place]enne (Senna) 8.6 1-26 le} capsule by Se ybold MG oral 00:00: mouth Capsule 00 daily Docusate Yes [id number] 100mg Take 100 [place] Sodium 100 1-26 mg by Seybold MG oral 00:00: mouth 2 Tablet 00 times daily Sennosides 2022-0 Yes [id number] 1{capsu Take 1 Che[place] (Senna) 8.6 1-26 le} capsule by Se ybold MG oral 00:00: mouth Capsule 00 daily Gabapentin 2022-0 Yes [id number] Ke lsey 800 MG oral 1-24 Seybold Tablet 00:00: 00 Gabapentin 2022-0 Yes [id number] Ke lsey 800 MG oral 1-24 Seybold Tablet 00:00: 00 Gabapentin 2022-0 Yes [id number] Ke lsey 800 MG oral 1-24 Seybold Tablet 00:00: 00 Gabapentin 2022-0 Yes [id number] Ke lsey 800 MG oral 1-24 Seybold Tablet 00:00: 00 Gabapentin 2022-0 Yes [id number] Ke lsey 800 MG oral 1-24 Seybold Tablet 00:00: 00 Gabapentin 2022-0 Yes [id number] Ke lsey 800 MG oral 1-24 Seybold Tablet 00:00: 00 Gabapentin 2022-0 Yes [id number] Ke lsey 800 MG oral 1-24 Seybold Tablet 00:00: 00 Gabapentin 2022-0 Yes [id number] Ke lsey 800 MG oral 1-24 Seybold Tablet 00:00: 00 Gabapentin 2022-0 Yes [id number] Ke lsey 800 MG oral 1-24 Seybold Tablet 00:00: 00 Gabapentin 2022-0 Yes [id number] Ke lsey 800 MG oral 1-24 Seybold Tablet 00:00: 00 Morphine 2022-0 Yes [id number] Wanda ey Sulfate ER 1-15 Seybold 15 MG oral 00:00: Tab CR 00 Morphine 2022-0 Yes [id number] Wanda ey Sulfate ER 1-15 Seybold 15 MG oral 00:00: Tab CR 00 Morphine 2022-0 Yes [id number] Wanda ey Sulfate ER 1-15 Seybold 15 MG oral 00:00: Tab CR 00 Morphine 2022-0 Yes [id number] Wanda ey Sulfate ER 1-15 Seybold 15 MG oral 00:00: Tab CR 00 Morphine 2022-0 Yes [id number] Wanda ey Sulfate ER 1-15 Seybold 15 MG oral 00:00: Tab CR 00 Morphine 2022-0 Yes [id number] Wanda ey Sulfate ER 1-15 Seybold 15 MG oral 00:00: Tab CR 00 Morphine 2022-0 Yes [id number] Wanda ey Sulfate ER 1-15 Seybold 15 MG oral 00:00: Tab CR 00 Morphine 2022-0 Yes [id number] Wanda ey Sulfate ER 1-15 Seybold 15 MG oral 00:00: Tab CR 00 Morphine 2022-0 Yes [id number] Wanda ey Sulfate ER 1-15 Seybold 15 MG oral 00:00: Tab CR 00 Morphine 2022-0 Yes [id number] Wanda ey Sulfate ER 1-15 Seybold 15 MG oral 00:00: Tab CR 00 Doxepin HCl 2022-0 Yes [id number] Ke lsey 25 MG oral 1-12 Seybold Capsule 00:00: 00 Doxepin HCl 2022-0 Yes [id number] Ke lsey 25 MG oral 1-12 Seybold Capsule 00:00: 00 Doxepin HCl 2022-0 Yes [id number] Ke lsey 25 MG oral 1-12 Seybold Capsule 00:00: 00 Doxepin HCl 2022-0 2022- No [id number] K elsey 25 MG oral 1-12 -23 Seybold Capsule 00:00: 00:00 00 :00 Lokelma 10 2022-0 Yes [id number] Cole sey g oral Pack 1-10 Seybold 00:00: 00 Lokelma 10 2022-0 Yes [id number] Cole sey g oral Pack 1-10 Seybold 00:00: 00 Lokelma 10 2022-0 Yes [id number] Cole sey g oral Pack 1-10 Seybold 00:00: 00 Lokelma 10 2022-0 Yes [id number] Cole sey g oral Pack 1-10 Seybold 00:00: 00 Lokelma 10 2022-0 Yes [id number] Cole sey g oral Pack 1-10 Seybold 00:00: 00 Lokelma 10 2022-0 Yes [id number] Cole sey g oral Pack 1-10 Seybold 00:00: 00 Lokelma 10 2022-0 Yes [id number] Cole sey g oral Pack 1-10 Seybold 00:00: 00 Lokelsd 10 2021-0 Yes [id number] Cole sey g oral Pack 1-10 Seybold 00:00: 00 Lokelsd 10 2021-0 Yes [id number] Cole sey g oral Pack 1- Seybold 00:00: 00 Lokelsd 10 2021-0 Yes [id number] Cole sorenseny g oral Pack 1- Seybold 00:00: 00 Sodium 2021-0 3- No [id number] 650mg Take 650 K elsey Bicarbonate 1-10 -11 mg by Seybol d 650 MG oral 00:00: 05:59 mouth 3 Tablet 00 :00 times daily Sodium 2021-0 3- No [id number] 650mg Take 650 K elsey Bicarbonate 1-10 -11 mg by Seybol d 650 MG oral 00:00: 05:59 mouth 3 Tablet 00 :00 times daily Sodium 2021-0 3- No [id number] 650mg Take 650 K elsey Bicarbonate 1-10 -11 mg by Seybol d 650 MG oral 00:00: 05:59 mouth 3 Tablet 00 :00 times daily Sodium 2021-0 3- No [id number] 650mg Take 650 K elsey Bicarbonate 1-10 01-11 mg by Seybol d 650 MG oral 00:00: 05:59 mouth 3 Tablet 00 :00 times daily Sodium 2021-0 3- No [id number] 650mg Take 650 K elsey Bicarbonate 1-10 01-11 mg by Seybol d 650 MG oral 00:00: 05:59 mouth 3 Tablet 00 :00 times daily Sodium 2021-0 3- No [id number] 650mg Take 650 K elsey Bicarbonate 1-10 01-11 mg by Seybol d 650 MG oral 00:00: 05:59 mouth 3 Tablet 00 :00 times daily Sodium 2021-0 3- No [id number] 650mg Take 650 K elsey Bicarbonate 1-10 01-11 mg by Seybol d 650 MG oral 00:00: 05:59 mouth 3 Tablet 00 :00 times daily Sodium 2021-0 3- No [id number] 650mg Take 650 K elsey Bicarbonate 1-10 01-11 mg by Seybol d 650 MG oral 00:00: 05:59 mouth 3 Tablet 00 :00 times daily Sodium 2021-0 2023- No [id number] 650mg Take 650 K elsey Bicarbonate 1-10 01-11 mg by Seybol d 650 MG oral 00:00: 05:59 mouth 3 Tablet 00 :00 times daily Sodium 2021-0 2022- No [id number] 650mg Take 650 K elsey Bicarbonate 1-10 01-11 mg by Seybol d 650 MG oral 00:00: 05:59 mouth 3 Tablet 00 :00 times daily Movantik 25 2021-0 Yes [id number] K elsey MG oral 1-05 Seybold Tablet 00:00: 00 [facility] 25 2021-0 Yes [id number] K elsey MG oral 1-05 Seybold Tablet 00:00: 00 [facility] 2021-0 Yes [id number] K elsey MG oral 1-05 Seybold Tablet 00:00: 00 [facility] 25 2021-0 Yes [id number] K elsey MG oral 1-05 Seybold Tablet 00:00: 00 [facility] 2021-0 Yes [id number] K elsey MG oral 1-05 Seybold Tablet 00:00: 00 [facility] 25 2021-0 Yes [id number] K elsey MG oral 1-05 Seybold Tablet 00:00: 00 [facility] 2021-0 Yes [id number] K elsey MG oral 1-05 Seybold Tablet 00:00: 00 [facility] 25 2021-0 Yes [id number] K elsey MG oral 1-05 Seybold Tablet 00:00: 00 [facility] 2021-0 Yes [id number] K elsey MG oral 1-05 Seybold Tablet 00:00: 00 [facility] 2021-0 Yes [id number] K elsey MG oral 1-05 Seybold Tablet 00:00: 00 Ferrous 2020-02 Yes [id number] Kelse y Sulfate 325 2-26 Seybold (65 Fe) MG 00:00: oral Tablet 00 Ferrous 2020-02 Yes [id number] Kelse y Sulfate 325 2-26 Seybold (65 Fe) MG 00:00: oral Tablet 00 Ferrous 2020-02 Yes [id number] Kelse y Sulfate 325 2-26 Seybold (65 Fe) MG 00:00: oral Tablet 00 Ferrous 2020-02 Yes [id number] Kelse y Sulfate 325 2-26 Seybold (65 Fe) MG 00:00: oral Tablet 00 Ferrous 2020-02 Yes [id number] Kelse y Sulfate 325 2-26 Seybold (65 Fe) MG 00:00: oral Tablet 00 Ferrous 2020-02 Yes [id number] Kelse y Sulfate 325 2-26 Seybold (65 Fe) MG 00:00: oral Tablet 00 Ferrous 2020-02 Yes [id number] Kelse y Sulfate 325 2-26 Seybold (65 Fe) MG 00:00: oral Tablet 00 Ferrous 2020-02 Yes [id number] Kelse y Sulfate 325 2-26 Seybold (65 Fe) MG 00:00: oral Tablet 00 Ferrous 2020-02 Yes [id number] Kelse y Sulfate 325 2-26 Seybold (65 Fe) MG 00:00: oral Tablet 00 Ferrous 2020-02 Yes [id number] Kelse y Sulfate 325 2-26 Seybold (65 Fe) MG 00:00: oral Tablet 00 [facility] Vitamin 2020- Yes [id number] K elsey B12 1000 2-08 Seybold MCG oral 00:00: Tab CR 00 Magnesium 2020-1 Yes [id number] Wanda ey Oxide 420 2-08 Seybold MG oral 00:00: Tablet 00 [facility] Vitamin 202-1 Yes [id number] K elsey B12 1000 2-08 Seybold MCG oral 00:00: Tab CR 00 Magnesium 2020-1 Yes [id number] Wanda ey Oxide 420 2-08 Seybold MG oral 00:00: Tablet 00 [facility] Vitamin 202-1 Yes [id number] K elsey B12 1000 2-08 Seybold MCG oral 00:00: Tab CR 00 Magnesium 2020-1 Yes [id number] Wanda ey Oxide 420 2-08 Seybold MG oral 00:00: Tablet 00 [facility] Vitamin 202-1 Yes [id number] K elsey B12 1000 2-08 Seybold MCG oral 00:00: Tab CR 00 Magnesium 2020-1 Yes [id number] Wanda ey Oxide 420 2-08 Seybold MG oral 00:00: Tablet 00 [facility] Vitamin 202-1 Yes [id number] K elsey B12 1000 2-08 Seybold MCG oral 00:00: Tab CR 00 Magnesium 1-1 Yes [id number] Wanda ey Oxide 420 2-08 Seybold MG oral 00:00: Tablet 00 [facility] Vitamin 2021-1 Yes [id number] K elsey B12 1000 2-08 Seybold MCG oral 00:00: Tab CR 00 Magnesium 2021-1 Yes [id number] Wanda ey Oxide 420 2-08 Seybold MG oral 00:00: Tablet 00 [facility] Vitamin 2021-1 Yes [id number] K elsey B12 1000 2-08 Seybold MCG oral 00:00: Tab CR 00 Magnesium 2021-1 Yes [id number] Wanda ey Oxide 420 2-08 Seybold MG oral 00:00: Tablet 00 [facility] Vitamin 2021-1 Yes [id number] K elsey B12 1000 2-08 Seybold MCG oral 00:00: Tab CR 00 [facility] Vitamin 2021-1 Yes [id number] K elsey B12 1000 2-08 Seybold MCG oral 00:00: Tab CR 00 Magnesium 2021-1 Yes [id number] Wanda ey Oxide 420 2-08 Seybold MG oral 00:00: Tablet 00 Magnesium 2021-1 Yes [id number] Wanda ey Oxide 420 2-08 Seybold MG oral 00:00: Tablet 00 [facility] Vitamin 2021-1 Yes [id number] K elsey B12 1000 2-08 Seybold MCG oral 00:00: Tab CR 00 Magnesium 2021-1 Yes [id number] Wanda ey Oxide 420 2-08 Seybold MG oral 00:00: Tablet 00 Ascorbic 2021-1 Yes [id number] 1{tbl} Take 1 Cheyenne Acid 500 MG 1-22 tablet by Sey bold oral Tablet 00:00: mouth 2 00 times daily Ascorbic 202-1 Yes [id number] 1{tbl} Take 1 [place] Acid 500 MG 1-22 tablet by Sey bold oral Tablet 00:00: mouth 2 00 times daily Ascorbic 2021-1 Yes [id number] 1{tbl} Take 1 [place] Acid 500 MG 1-22 tablet by Sey bold oral Tablet 00:00: mouth 2 00 times daily Ascorbic 202-1 Yes [id number] 1{tbl} Take 1 [place] Acid 500 MG 1-22 tablet by Sey bold oral Tablet 00:00: mouth 2 00 times daily Ascorbic 202-1 Yes [id number] 1{tbl} Take 1 [place] Acid 500 MG 1-22 tablet by Sey bold oral Tablet 00:00: mouth 2 00 times daily Ascorbic 2021-1 Yes [id number] 1{tbl} Take 1 [place] Acid 500 MG 1-22 tablet by Sey bold oral Tablet 00:00: mouth 2 00 times daily Ascorbic 2020-02 Yes [id number] 1{tbl} Take 1 [place] Acid 500 MG 1-22 tablet by Sey bold oral Tablet 00:00: mouth 2 00 times daily Ascorbic 2020-02 Yes [id number] 1{tbl} Take 1 [place] Acid 500 MG 1-22 tablet by Sey bold oral Tablet 00:00: mouth 2 00 times daily Ascorbic 2020-02 Yes [id number] 1{tbl} Take 1 [place] Acid 500 MG 1-22 tablet by Sey bold oral Tablet 00:00: mouth 2 00 times daily Ascorbic 2020-02 Yes [id number] 1{tbl} Take 1 [place] Acid 500 MG 1-22 tablet by Sey bold oral Tablet 00:00: mouth 2 00 times daily Amlodipine 2020-0 2021- No [id number] 5mg Take 5 mg Cheyenne Besylate 5 09-02- by mouth Seyb old MG oral 00:00: 04:59 daily Tablet 00 :00 Amlodipine 2020-0 2021- No [id number] 5mg Take 5 mg Cheyenne Besylate 5 -02 09- by mouth Seyb old MG oral 00:00: 04:59 daily Tablet 00 :00 Amlodipine 2020-0 2021- No [id number] 5mg Take 5 mg Cheyenne Besylate 5 -02 09- by mouth Seyb old MG oral 00:00: 04:59 daily Tablet 00 :00 Amlodipine 2020-0 2021- No [id number] 5mg Take 5 mg Cheyenne Besylate 5 -02 09- by mouth Seyb old MG oral 00:00: 04:59 daily Tablet 00 :00 Amlodipine 2020-0 2021- No [id number] 5mg Take 5 mg Cheyenne Besylate 5 -02 09- by mouth Seyb old MG oral 00:00: 04:59 daily Tablet 00 :00 Amlodipine 2020-0 2021- No [id number] 5mg Take 5 mg Cheyenne Besylate 5 -03 05-29 by mouth Seyb old MG oral 00:00: 00:00 daily Tablet 00 :00 gabapentin 2019-0 Yes 800mg Take 800 Un luz marina 800 mg 5-17 mg by ity of tablet 00:00: mouth [place] 00 every 6 [facility] ([facility] hours. Immunizations Ordered Immunization Filled Immunization Date Status Commen ts Source Name Name Covid-19 Vaccine 2021-01-10 Completed Cheyenne romeo ([employer]), Mrna-lnp, 00:00:00 Noam Protein, Pf, 30mcg/0.3ml,IM Covid-19 Vaccine 2021-01-10 Completed Cheyenne bloodbocinthia ([employer]), Mrna-lnp, 00:00:00 Noam Protein, Pf, 30mcg/0.3ml,IM Covid-19 Vaccine 2021-01-10 Completed Cheyenne Uriarte eybold ([employer]), Mrna-lnp, 00:00:00 Noam Protein, Pf, 30mcg/0.3ml,IM Covid-19 Vaccine 2021-01-10 Completed Cheyenne bloodbocinthia ([employer]), Mrna-lnp, 00:00:00 Noam Protein, Pf, 30mcg/0.3ml,IM Covid-19 Vaccine 2021-01-10 Completed Cheyenne bloodbocinthia ([employer]), Mrna-lnp, 00:00:00 Noam Protein, Pf, 30mcg/0.3ml,IM Covid-19 Vaccine 2021-01-10 Completed Cheyenne bloodbocinthia ([employer]), Mrna-lnp, 00:00:00 Noam Protein, Pf, 30mcg/0.3ml,IM Covid-19 Vaccine 2021-01-10 Completed Cheyenne bloodbocinthia ([employer]), Mrna-lnp, 00:00:00 Noam Protein, Pf, 30mcg/0.3ml,IM Covid-19 Vaccine 2021-01-10 Completed Cheyenne bloodbold ([employer]), Mrna-lnp, 00:00:00 Noam Protein, Pf, 30mcg/0.3ml,IM Covid-19 Vaccine 2021-01-10 Completed Cheyenne Uriarte eybold ([employer]), Mrna-lnp, 00:00:00 Noam Protein, Pf, 30mcg/0.3ml,IM Covid-19 Vaccine 2021-01-10 Completed Cheyenne Uriarte eybold ([employer]), Mrna-lnp, 00:00:00 Noam Protein, Pf, 30mcg/0.3ml,IM Covid-19 Vaccine 2021-01-10 Completed Cheyenne S eybold (Pf[facility]), Mrna-lnp, 00:00:00 Noam Protein, Pf, 30mcg/0.3ml,IM Covid-19 Vaccine 2021-01-10 Completed Cheyenne S eybold (Pfizer), Mrna-lnp, 00:00:00 Noam Protein, Pf, 30mcg/0.3ml,IM Covid-19 Vaccine 2021-01-10 Completed Cheyenne S eybold (Pfizer), Mrna-lnp, 00:00:00 Noam Protein, Pf, 30mcg/0.3ml,IM Covid-19 Vaccine 2021-01-10 Completed Cheyenne S eybold (Pfizer), Mrna-lnp, 00:00:00 Noam Protein, Pf, 30mcg/0.3ml,IM Covid-19 Vaccine 2021-01-10 Completed Cheyenne S eybold (Pfizer), Mrna-lnp, 00:00:00 Noam Protein, Pf, 30mcg/0.3ml,IM Covid-19 Vaccine 2021-01-10 Completed Cheyenne S eybold (Pfizer), Mrna-lnp, 00:00:00 Noam Protein, Pf, 30mcg/0.3ml,IM Covid-19 Vaccine 2021-01-10 Completed Cheyenne S eybold (Pfizer), Mrna-lnp, 00:00:00 Noam Protein, Pf, 30mcg/0.3ml,IM Covid-19 Vaccine 2021-01-10 Completed Cheyenne S eybold (Pfizer), Mrna-lnp, 00:00:00 Noam Protein, Pf, 30mcg/0.3ml,IM Covid-19 Vaccine 2021-01-10 Completed Cheyenne S eybold (Pfizer), Mrna-lnp, 00:00:00 Noam Protein, Pf, 30mcg/0.3ml,IM SARS-COV-2 COVID-19 2021-01-10 Completed [facility] of PFIZER VACCINE 00:00:00 [facility] Covid-19 Vaccine 2020-04-27 Completed Cheyenne S eybold (Pfizer), Mrna-lnp, 00:00:00 Noam Protein, Pf, 30mcg/0.3ml,IM Covid-19 Vaccine 2020-04-27 Completed Cheyenne S eybold (Pfizer), Mrna-lnp, 00:00:00 Noam Protein, Pf, 30mcg/0.3ml,IM Covid-19 Vaccine 2020-04-27 Completed Cheyenne S eybold (Pfizer), Mrna-lnp, 00:00:00 Noam Protein, Pf, 30mcg/0.3ml,IM Covid-19 Vaccine 2020-04-27 Completed Cheyenne S eybold (Pfizer), Mrna-lnp, 00:00:00 Noam Protein, Pf, 30mcg/0.3ml,IM Covid-19 Vaccine 2020-04-27 Completed Cheyenne S eybold (Pfizer), Mrna-lnp, 00:00:00 Noam Protein, Pf, 30mcg/0.3ml,IM Covid-19 Vaccine 2020-04-27 Completed Cheyenne S eybold (Pfizer), Mrna-lnp, 00:00:00 Noam Protein, Pf, 30mcg/0.3ml,IM Covid-19 Vaccine 2020-04-27 Completed Cheyenne S eybold (Pfizer), Mrna-lnp, 00:00:00 Noam Protein, Pf, 30mcg/0.3ml,IM Covid-19 Vaccine 2020-04-27 Completed Cheyenne S eybold (Pfizer), Mrna-lnp, 00:00:00 Noam Protein, Pf, 30mcg/0.3ml,IM Covid-19 Vaccine 2020-04-27 Completed Cheyenne S eybold (Pfizer), Mrna-lnp, 00:00:00 Noam Protein, Pf, 30mcg/0.3ml,IM Covid-19 Vaccine 2020-04-27 Completed Cheyenne S eybold (Pfizer), Mrna-lnp, 00:00:00 Noam Protein, Pf, 30mcg/0.3ml,IM Covid-19 Vaccine 2020-04-27 Completed Cheyenne S eybold (Pfizer), Mrna-lnp, 00:00:00 Noam Protein, Pf, 30mcg/0.3ml,IM Covid-19 Vaccine 2020-04-27 Completed Cheyenne S eybold (Pfizer), Mrna-lnp, 00:00:00 Noam Protein, Pf, 30mcg/0.3ml,IM Covid-19 Vaccine 2020-04-27 Completed Cheyenne S eybold (Pfizer), Mrna-lnp, 00:00:00 Noam Protein, Pf, 30mcg/0.3ml,IM Covid-19 Vaccine 2020-04-27 Completed Cheyenne S eybold (Pfizer), Mrna-lnp, 00:00:00 Noam Protein, Pf, 30mcg/0.3ml,IM Covid-19 Vaccine 2020-04-27 Completed Cheyenne S eybold (Pfizer), Mrna-lnp, 00:00:00 Noam Protein, Pf, 30mcg/0.3ml,IM Covid-19 Vaccine 2020-04-27 Completed Cheyenne S eybold (Pfizer), Mrna-lnp, 00:00:00 Noam Protein, Pf, 30mcg/0.3ml,IM Covid-19 Vaccine 2020-04-27 Completed Cheyenne S eybold (Pfizer), Mrna-lnp, 00:00:00 Noam Protein, Pf, 30mcg/0.3ml,IM Covid-19 Vaccine 2020-04-27 Completed Cheyenne S eybold (Pfizer), Mrna-lnp, 00:00:00 Noam Protein, Pf, 30mcg/0.3ml,IM Covid-19 Vaccine 2020-04-27 Completed Cheyenne S eybold (Pfizer), Mrna-lnp, 00:00:00 Noam Protein, Pf, 30mcg/0.3ml,IM SARS-COV-2 COVID-19 2020-04-27 Completed [facility] of PFIZER VACCINE 00:00:00 [facility] Covid-19 Vaccine 2020-04-06 Completed Cheyenne S eybold (Pfizer), Mrna-lnp, 00:00:00 Noam Protein, Pf, 30mcg/0.3ml,IM Covid-19 Vaccine 2020-04-06 Completed Cheyenne S eybold (Pf[facility]), Mrna-lnp, 00:00:00 Noam Protein, Pf, 30mcg/0.3ml,IM Covid-19 Vaccine 2020-04-06 Completed Cheyenne S eybold ([facility]), Mrna-lnp, 00:00:00 Noam Protein, Pf, 30mcg/0.3ml,IM Covid-19 Vaccine 2020-04-06 Completed Cheyenne S eybold (Pf[facility]), Mrna-lnp, 00:00:00 Noam Protein, Pf, 30mcg/0.3ml,IM Covid-19 Vaccine 2020-04-06 Completed Cheyenne S eybold (Pf[facility]), Mrna-lnp, 00:00:00 Noam Protein, Pf, 30mcg/0.3ml,IM Covid-19 Vaccine 2020-04-06 Completed Cheyenne S eybold (Pf[facility]), Mrna-lnp, 00:00:00 Noam Protein, Pf, 30mcg/0.3ml,IM Covid-19 Vaccine 2020-04-06 Completed Cheyenne S eybold ([facility]), Mrna-lnp, 00:00:00 Noam Protein, Pf, 30mcg/0.3ml,IM Covid-19 Vaccine 2020-04-06 Completed Cheyenne S eybold ([facility]), Mrna-lnp, 00:00:00 Noam Protein, Pf, 30mcg/0.3ml,IM Covid-19 Vaccine 2020-04-06 Completed Cheyenne S eybold ([facility]), Mrna-lnp, 00:00:00 Noam Protein, Pf, 30mcg/0.3ml,IM Covid-19 Vaccine 2020-04-06 Completed Cheyenne S eybold ([facility]), Mrna-lnp, 00:00:00 Noam Protein, Pf, 30mcg/0.3ml,IM Covid-19 Vaccine 2020-04-06 Completed Cheyenne S eybold ([facility]), Mrna-lnp, 00:00:00 Noam Protein, Pf, 30mcg/0.3ml,IM Covid-19 Vaccine 2020-04-06 Completed Cheyenne S eybold ([facility]), Mrna-lnp, 00:00:00 Noam Protein, Pf, 30mcg/0.3ml,IM Covid-19 Vaccine 2020-04-06 Completed Cheyenne S eybold (Pf[facility]), Mrna-lnp, 00:00:00 Noam Protein, Pf, 30mcg/0.3ml,IM Covid-19 Vaccine 2020-04-06 Completed Cheyenne S eybold ([employer]), Mrna-lnp, 00:00:00 Noam Protein, Pf, 30mcg/0.3ml,IM Covid-19 Vaccine 2020-04-06 Completed Cheyenne S eybold ([employer]), Mrna-lnp, 00:00:00 oNam Protein, Pf, 30mcg/0.3ml,IM Covid-19 Vaccine 2020-04-06 Completed Cheyenne S eybold ([employer]), Mrna-lnp, 00:00:00 Noam Protein, Pf, 30mcg/0.3ml,IM Covid-19 Vaccine 2020-04-06 Completed Cheyenne S eybold ([employer]), Mrna-lnp, 00:00:00 Noam Protein, Pf, 30mcg/0.3ml,IM Covid-19 Vaccine 2020-04-06 Completed Cheyenne S eybold ([employer]), Mrna-lnp, 00:00:00 Noam Protein, Pf, 30mcg/0.3ml,IM Covid-19 Vaccine 2020-04-06 Completed Cheyenne Uriarte eybold ([employer]), Mrna-lnp, 00:00:00 Noam Protein, Pf, 30mcg/0.3ml,IM SARS-COV-2 COVID-19 2020-04-06 Completed [facility] PFIZER VACCINE 00:00:00 [facility] Influenza, Seasonal, 2018-11-01 Completed Wanda ey Seybold Injectable 00:00:00 Influenza Virus 2018-11-01 Completed [facility] Se ybold Vaccine, Unspecified 00:00:00 Formulation Influenza, Seasonal, 2018-11-01 Completed Wanda ey Seybold Injectable 00:00:00 Influenza Virus 2018-11-01 Completed [facility] Se ybold Vaccine, Unspecified 00:00:00 Formulation Influenza, Seasonal, 2018-11-01 Completed Wanda ey Seybold Injectable 00:00:00 Influenza Virus 2018-11-01 Completed [facility] Se [facility] Vaccine, Unspecified 00:00:00 Formulation Influenza, Seasonal, 2018-11-01 Completed Wanda ey Seybold Injectable 00:00:00 Influenza Virus 2018-11-01 Completed [facility] Se ybold Vaccine, Unspecified 00:00:00 Formulation Influenza, Seasonal, 2018-11-01 Completed Wanda ey Seybold Injectable 00:00:00 Influenza Virus 2018-11-01 Completed [facility] Se [facility] Vaccine, Unspecified 00:00:00 Formulation Influenza, Seasonal, 2018-11-01 Completed Wanda ey Seybold Injectable 00:00:00 Influenza Virus 2018-11-01 Completed [facility] Se [facility] Vaccine, Unspecified 00:00:00 Formulation Influenza, Seasonal, 2018-11-01 Completed Wanda ey Seybold Injectable 00:00:00 Influenza Virus 2018-11-01 Completed [facility] Se [facility] Vaccine, Unspecified 00:00:00 Formulation Influenza, Seasonal, 2018-11-01 Completed Wanda ey Seybold Injectable 00:00:00 Influenza Virus 2018-11-01 Completed [facility] Se [facility] Vaccine, Unspecified 00:00:00 Formulation Influenza, Seasonal, 2018-11-01 Completed Wanda ey Seybold Injectable 00:00:00 Influenza Virus 2018-11-01 Completed [facility] Se [facility] Vaccine, Unspecified 00:00:00 Formulation Influenza, Seasonal, 2018-11-01 Completed Wanda ey Seybold Injectable 00:00:00 Influenza Virus 2018-11-01 Completed [facility] Se ybold Vaccine, Unspecified 00:00:00 Formulation Influenza Virus 2018-11-01 Completed [facility] 00:00:00 [facility] Influenza Virus 2018-11-01 Completed [facility] 00:00[facility]00 [facility] Pneumococcal Vaccine, 2018-09-08 Completed Cole sey Seybold Polysaccharide 00:00:00 Pneumococcal Vaccine, 2018-09-08 Completed Cole sey Seybold Polysaccharide 00:00:00 Pneumococcal Vaccine, 2018-09-08 Completed Cole sey Seybold Polysaccharide 00:00:00 Pneumococcal Vaccine, 2018-09-08 Completed Cole sey Seybold Polysaccharide 00:00:00 Pneumococcal Vaccine, 2018-09-08 Completed Cole sey Seybold Polysaccharide 00:00:00 Pneumococcal Vaccine, 2018-09-08 Completed Cole sey Seybold Polysaccharide 00:00:00 Pneumococcal Vaccine, 2018-09-08 Completed Cole sey Seybold Polysaccharide 00:00:00 Pneumococcal Vaccine, 2018-09-08 Completed Cole sey Seybold Polysaccharide 00:00:00 Pneumococcal Vaccine, 2018-09-08 Completed Cole sey Seybold Polysaccharide 00:00:00 Pneumococcal Vaccine, 2018-09-08 Completed Cole mckay Seybold Polysaccharide 00:00:00 Pneumococcal 2018-09-08 Completed [facility] Polysaccharide, 00:00:00 [facility] PPSV23 (PNEUMOVAX) Pooler Vital Signs Vital Name Observation Time Observation Value Comments Source Body weight 2021-09-05 18:53:00 117.935 kg [facility] BMI 2021-09-05 18:53:00 33.38 kg/m2 [facility] Systolic blood 2021-06-25 16:08:00 140 mm[Hg] Cheyenne Seybold pressure Diastolic blood 2021-06-25 16:08:00 85 mm[Hg] Kelse y Seybold pressure Heart rate 2021-06-25 16:08:00 60 /min Cheyenne S eybold Respiratory rate 2021-06-25 16:08:00 18 /min Wanda blood Seybold Body height 2021-06-25 16:08:00 188 cm Cheyenne S caitiebold Body weight 2021-06-25 16:08:00 117.935 kg [place] S eybold BMI 2021-06-25 16:08:00 33.38 kg/m2 [place] S eybold Systolic blood 2021-05-23 16:35:00 143 mm[Hg] Cheyenne Seybold pressure Diastolic blood 2021-05-23 16:35:00 78 mm[Hg] Kelse y Seybold pressure Heart rate 2021-05-23 16:35:00 74 /min [place]yenne S eybold Body temperature 2021-05-23 16:35:00 36.83 Carlyn Wanda ey Seybold Respiratory rate 2021-05-23 16:35:00 18 /min Wanda ey Seybold Body height 2021-05-23 16:35:00 188 cm [place]enne S eybold Body weight 2021-05-23 16:35:00 121.11 kg [place] S eybold BMI 2021-05-23 16:35:00 34.28 kg/m2 Cheyenne Uriarte eybold Oxygen saturation in 2021-05-23 16:35:00 98 /min Cheyenne Sorensenybold Arterial blood by Pulse oximetry Systolic blood 2021-05-16 15:51:00 142 mm[Hg] Cheyenne Seybold pressure Diastolic blood 2021-05-16 15:51:00 80 mm[Hg] Kelse y Seybold pressure Body height 2021-05-16 15:51:00 188 cm [place] S eybold Body weight 2021-05-16 15:51:00 120.203 kg [place] S eybold BMI 2021-05-16 15:51:00 34.02 kg/m2 [place] S eybold Systolic blood 2021-05-06 14:53:00 139 mm[Hg] Cheyenne Seybold pressure Diastolic blood 2021-05-06 14:53:00 80 mm[Hg] Kelse y Seybold pressure Heart rate 2021-05-06 14:53:00 56 /min [place] S eybold Body temperature 2021-05-06 14:53:00 36.39 Carlyn Wanda ey Seybold Respiratory rate 2021-05-06 14:53:00 14 /min Wanda ey Seybold Body height 2021-05-06 14:53:00 188 cm [place]enne S eybold Body weight 2021-05-06 14:53:00 122.471 kg [place] S eybold BMI 2021-05-06 14:53:00 34.67 kg/m2 [place] S eybold Oxygen saturation in 2021-05-06 14:53:00 96 /min Cheyenne Seybold Arterial blood by Pulse oximetry Body height 2021-05-02 15:21:00 188 cm [place]yenne S eybold Body weight 2021-05-02 15:21:00 122.471 kg [place] S eybold BMI 2021-05-02 15:21:00 34.67 kg/m2 [place] S eybold Systolic blood 2021-04-30 13:47:00 148 mm[Hg] Cheyenne Seybold pressure Diastolic blood 2021-04-30 13:47:00 82 mm[Hg] Kelse y Seybold pressure Heart rate 2021-04-30 13:47:00 58 /min [place]yenne S eybold Respiratory rate 2021-04-30 13:47:00 18 /min Wanda ey Seybold Body height 2021-04-30 13:47:00 188 cm [place]yenne S eybold Body weight 2021-04-30 13:47:00 123.016 kg Chey[place] Uriarte eybold BMI 2021-04-30 13:47:00 34.82 kg/m2 Chey[place] Uriarte eybold Oxygen saturation in 2021-04-30 13:47:00 99 /min Cheyenne Brady Arterial blood by Pulse oximetry Body temperature 2021-04-07 14:48:00 37.11 Carlyn Wanda ey Seybold Body height 2021-04-07 14:48:00 188 cm [place]enne Uriarte eybold Body weight 2021-04-07 14:48:00 117.935 kg [place] Uriarte eybold BMI 2021-04-07 14:48:00 33.38 kg/m2 [place] Uriarte eybold Systolic blood 2021-04-02 16:06:00 138 mm[Hg] Cheyenne Seybold pressure Diastolic blood 2021-04-02 16:06:00 81 mm[Hg] Kelse y Seybold pressure Heart rate 2021-04-02 16:06:00 55 /min Cheyenne Uriarte eybold Body temperature 2021-04-02 16:06:00 36 Carlyn Wanda ey Seybold Respiratory rate 2021-04-02 16:06:00 14 /min Wanda ey Seybold Body height 2021-04-02 16:06:00 188 cm Cheyenne Uriarte eybold Body weight 2021-04-02 16:06:00 122.471 kg Cheyenne Uriarte eybold BMI 2021-04-02 16:06:00 34.67 kg/m2 [place] Uriarte eybold Systolic blood 2021-03-05 16:16:00 164 mm[Hg] Cheyenne Seybold pressure Diastolic blood 2021-03-05 16:16:00 86 mm[Hg] Kelse y Seybold pressure Heart rate 2021-03-05 16:16:00 106 /min [place] Uriarte eybold Body temperature 2021-03-05 16:16:00 35.67 Carlyn Wanda ey Seybold Respiratory rate 2021-03-05 16:16:00 12 /min Wanda ey Seybold Body height 2021-03-05 16:16:00 188 cm Cheyenne Uriarte eybold Body weight 2021-03-05 16:16:00 118.842 kg Cheyenne romeo BMI 2021-03-05 16:16:00 33.64 kg/m2 Cheyenne romeo Procedures Procedure Date / Time Performed Performing Clinician [facility] e SHOULDER 3 VIEW RIGHT 2021-05-16 16:50:00 Simba Nathan (ORTHO) KNEE ROUTINE 40 YEARS AND 2021-05-16 16:20:08 Simba Nathan OLDER RIGHT HIPS BILATERAL 2021-04-07 16:58:39 Chapo Johnson ld LUMBAR SPINE 2 VIEWS 2021-04-07 16:54:49 Chapo Johnson LUMBAR SPINE FLEX/EXTENSION 2021-04-07 16:45:43 Chapo Johnson ONLY CERVICAL SPINE - 2 VIEW 2021-04-07 16:44:19 Chapo Johnson URINALYSIS, ROUTINE 2021-04-02 17:46:00 Caroline Valle MICROSCOPIC EXAMINATION 2021-04-02 17:46:00 Caroline Valle PHOSPHORUS, SERUM 2021-04-02 17:27:00 Caroline Valle MAGNESIUM, SERUM 2021-04-02 17:27:00 Caroline Valle COMP. METABOLIC PANEL (14) 2021-04-02 17:27:00 Caroline Valle Encounters Start End Encounter Admission Attending Care Care Encounter Source Date/Time Date/Time Type Type Clinicians Facility Department ID 2021-09-24 2021-09-24 Outpatient R NIDIA DCPALLAVI [facility] [id number] Univers 13:30:00 13:30:00 [facility] 2021-09-05 2021-09-05 Office ROBSON Boss [id number] Univers 13:30:00 14:26:19 Visit relocality 350.1.13.10 it y of EYE 4.2.7.2.686 [facility] [id number] [address] 2021-08-12 2021-08-12 Outpatient LEONARD CHEYENNE DIAZ [id number] [place] 00:00:00 00:00:00 CAROLINE Seybol d 2021-07-22 2021-07-22 Outpatient CHEYENNE VALLE CHEYENNE [id number] [place] 13:30:00 13:30:00 CAROLINE Seybol d 2021-07-15 2021-07-15 Outpatient LEONARD [place] DIAZ [id number] [place] 00:00:00 00:00:00 CAROLINE Seybol d 2021-07-08 2021-07-08 Outpatient LEONARD [place] DIAZ [id number] [place] 00:00:00 00:00:00 CAROLINE Seybol d 2021-07-02 2021-07-02 Outpatient CHAPO JOHNSON [place] DIAZ [id number] [place] 10:30:00 10:30:00 Seybol d 2021-06-26 2021-06-26 Outpatient CHEYENNE DIAZ [id number] [place] 07:35:00 07:35:00 Seybol d 2021-06-26 2021-06-26 Outpatient CHEYENNE DIAZ [id number] [place] 07:05:00 07:05:00 Seybol d 2021-06-26 2021-06-26 Outpatient CHEYENNE BEDOYA [id number] [place] 07:00:00 07:00:00 AHMED Seybol d 2021-06-26 2021-06-26 Outpatient CHEYENNE CACERES [id number] [place] 00:00:00 00:00:00 SHAHEEN vicente 2021-06-25 2021-06-25 Office KORIN NATHAN 1.2.840.114 [id number] [place] 11:20:00 11:20:00 Visit [facility] 350.1.13.13 [facility] 1.2.7.2.686 [id number] 2021-06-25 2021-06-25 Outpatient CHEYENNE TRAYLOR [id number] [place] 00:00:00 00:00:00 ADRYENE Seybol d 2021-06-25 2021-06-25 Outpatient DAVIAN [facility] [id number] [place] 00:00:00 00:00:[address]WARD [address] 2021-06-23 2021-06-23 Outpatient CHEYENNE BEDOYA [id number] [place] 00:00:00 00:00:00 AHMED Seybol d 2021-06-20 2021-06-20 Telemedici Chapo JohnsonWOO 1.2.840.11 [id number] [place] 10:15:00 10:26:50 ne T D 350.1.13.13 Se ybold 1.2.7.2.686 [id number] 2021-06-16 2021-06-16 Outpatient SONY SAVANNAHBRIANNA DIAZ [id number] [place] 15:15:00 15:15:00 Seybol d 2021-06-16 2021-06-16 Outpatient CHEYENNE VALLE [id number] [place] 00:00:00 00:00:00 CAROLINE Seybol d 2021-06-14 2021-06-14 Outpatient CHEYENNE VALLE [id number] [place] 00:00:00 00:00:00 CAROLINE Seybol d 2021-06-07 2021-06-07 Outpatient CHEYENNE NATHAN [id number] [place] 00:00:00 00:00:00 SIMBA Seybol d 2021-06-07 2021-06-07 Outpatient SONY SAVANNAHBRIANNA DIAZ [id number] [place] 00:00:00 00:00:00 Seybol d 2021-06-05 2021-06-05 Outpatient CHEYENNE BEDOYA [id number] [place] 09:02:00 09:02:00 AHMED Seybol d 2021-06-05 2021-06-05 Outpatient CHEYENNE DIAZ [id number] [place] 07:15:00 07:15:00 Seybol d 2021-06-05 2021-06-05 Outpatient CHEYENNE CACERES [id number] [place] 00:00:00 00:00:00 SHAHEEN Grimeso ld 2021-06-04 2021-06-04 Outpatient CHEYENNE BEDOYA [id number] [place] 00:00:00 00:00:00 AHMED Seybol d 2021-06-04 2021-06-04 Outpatient KYMBERLY CHE[place]NE DIAZ [id number] [place] 00:00:00 00:00:00 ADRYENE Seybol d 2021-06-03 2021-06-03 Outpatient JOVIMARY Wing [place]NE DIAZ [id number] [place] 10:30:00 10:30:00 Seybol d 2021-05-23 2021-05-23 Outpatient CHEYENNE DIAZ [id number] [place] 14:00:00 14:00:00 Seybol d 2021-05-23 2021-05-23 Outpatient LAB CHEYENNE DIAZ [id number] [place] 12:05:00 12:05:00 Seybol d 2021-05-23 2021-05-23 Office Diego Martin 1.2.840.114 [id number] [place] 11:20:00 11:40:00 Visit 350.1.13.13 ybold 1.2.7.2.686 [id number] 2021-05-23 2021-05-23 Outpatient CHEYENNE NATHAN [id number] [place] 00:00:00 00:00:00 SIMBA Seybol d 2021-05-21 2021-05-21 Outpatient CHEYENNE SUN [id number] [place] 00:00:00 00:00:00 JOSE G Seybol d 2021-05-19 2021-05-19 Outpatient CHEYENNE SUN [id number] [place] 00:00:00 00:00:00 JOSE G Seybol d 2021-05-16 2021-05-16 Outpatient CHEYENNE DIAZ [id number] [place] 11:45:00 11:45:00 Seybol d 2021-05-16 2021-05-16 Outpatient CHEYENNE CARRILLO [id number] [place] 11:45:00 11:45:00 NEY Seybol d 2021-05-16 2021-05-16 Office KORIN Nathan 1.2.840.114 [id number] [place] 11:00:00 11:20:00 Visit [facility] 350.1.13.13 Se ybold 1.2.7.2.686 [id number] 2021-05-16 2021-05-16 Outpatient CHEYENNE DIAZ [id number] [place] 11:05:00 11:05:00 Seybol d 2021-05-16 2021-05-16 Outpatient MARY ESPANA [id number] [place] 09:10:00 09:10:00 Seybol d 2021-05-12 2021-05-12 Outpatient CHAPO JOHNSON [id number] [place] 00:00:00 00:00:00 Seybol d 2021-05-11 2021-05-11 Outpatient CHAPO JOHNSON [id number] [place] 00:00:00 00:00:00 Seybol d 2021-05-08 2021-05-08 Outpatient CHEYENNE SUN [id number] [place] 09:30:00 09:30:00 JOSE G Seybol d 2021-05-06 2021-05-06 Outpatient LAB CHEYENNE DIAZ [id number] [place] 10:55:00 10:55:00 Seybol d 2021-05-06 2021-05-06 Office Surendra Valle 1.2.840.114 [id number] [place] 10:00:00 10:30:00 Visit Caroline Durham 350.1.13.13 Se ybold 1.2.7.2.686 [id number] 2021-05-05 2021-05-05 Outpatient CHEYENNE BEDOYA [id number] [place] 00:00:00 00:00:00 AHMED Seybol d 2021-05-05 2021-05-05 Outpatient CHEYENNE BEDOYA [id number] [place] 00:00:00 00:00:00 AHMED Seybol d 2021-05-05 2021-05-05 Outpatient MAIRA DIAZ [id number] [place] 00:00:00 00:00:00 MD RAJAN Seybol d 2021-05-05 2021-05-05 Outpatient CHAPO JOHNSON [id number] [place] 00:00:00 00:00:00 Seybol d 2021-05-02 2021-05-02 Office Chapo Johnson 1.2.840.114 [id number] [place] 10:15:00 10:30:00 Visit Ezio Almaraz 350.1.13.13 Se ybold 1.2.7.2.686 [id number] 2021-05-02 2021-05-02 Outpatient CHEYENNE WASHINGTON [id number] [place] 09:00:00 09:00:00 CARMENCITA Seybol d 2021-04-30 2021-04-30 Outpatient LAB45 CHEY[place]NE DIAZ [id number] [place] 10:25:00 10:25:00 Seybol d 2021-04-30 2021-04-30 Office PAWEL Sun [id number] [place] 08:45:00 09:15:00 Visit Jose G CLARKE 350.1.13.13 Seybold DIAGNOSTI 1.2.7.2.686 [facility] [id number] 2021-04-30 2021-04-30 Outpatient CHEYENNE VALLE [id number] [place] 08:30:00 08:30:00 CAROLINE Seybol d 2021-04-25 2021-04-25 Inpatient LOLY Jack Traylor [facility] RADI [id number] [facility] 10:00:00 10:00:00 [id number] [facility] 2021-04-23 2021-04-23 Outpatient CHEYENNE GUEVARA [id number] [place] 09:00:00 09:00:00 JOSE Seybol d 2021-04-22 2021-04-22 Outpatient CHEYENNE DIAZ [id number] [place] 07:00:00 07:00:00 Seybol d 2021-04-22 2021-04-22 Outpatient CHEYENNE GUSMAN [id number] [place] 00:00:00 00:00:00 EVIE Seybol d 2021-04-22 2021-04-22 Outpatient CHEYENNE GUSMAN [id number] [place] 00:00:00 00:00:00 EVIE Seybol d 2021-04-18 2021-04-18 Outpatient CHEYENNE DIAZ [id number] [place] 14:00:00 14:00:00 Seybol d 2021-04-18 2021-04-18 Outpatient CHEYENNE VALLE [id number] [place] 00:00:00 00:00:00 CAROLINE Seybol d 2021-04-17 2021-04-17 Outpatient TraylorJack dejesus [place] [id number] [facility] 14:14:00 14:14:00 [id number] [facility] 2021-04-15 2021-04-15 Outpatient Jack Traylor [place] [id number] [facility] 15:51:00 15:51:00 [id number] [facility] 2021-04-14 2021-04-14 Outpatient CHEYENNE VALLE [id number] [place] 00:00:00 00:00:00 CAROLINE Seybol d 2021-04-11 2021-04-11 Outpatient LAB90 CHEYENNE DIAZ [id number] [place] 10:20:00 10:20:00 Seybol d 2021-04-10 2021-04-10 Outpatient CHEYENNE VALLE [id number] [place] 00:00:00 00:00:00 CAROLINE Seybol d 2021-04-07 2021-04-07 Outpatient CHEYENNE DIAZ [id number] [place] 10:05:00 10:05:00 Seybol d 2021-04-07 2021-04-07 Outpatient CHEYENNE DIAZ [id number] [place] 10:00:00 10:00:00 Seybol d 2021-04-07 2021-04-07 Outpatient CHEYENNE DIAZ [id number] [place] 09:55:00 09:55:00 Seybol d 2021-04-07 2021-04-07 Outpatient CHEYENNE DIAZ [id number] [place] 09:50:00 09:50:00 Seybol d 2021-04-07 2021-04-07 Outpatient CHEYENNE DIAZ [id number] [place] 09:05:00 09:05:00 Seybol d 2021-04-072021-04-07 Office CHAPO JOHNSON 1.2.840.114 [id number] [place] 09:00:00 09:00:00 Visit MEDICAL 350.1.13.13 Seybold DIAGNOSTI 1.2.7.2.686 [facility] [id number] 2021-04-04 2021-04-04 Outpatient CHEYENNE VALLE [id number] [place] 00:00:00 00:00:00 CAROLINE Seybol d 2021-04-03 2021-04-03 Outpatient CHEYENNE SUN [id number] [place] 15:30:00 15:30:00 JOSE G Seybol d 2021-04-02 2021-04-02 Outpatient LAB90 CHEYENNE DIAZ [id number] [place] 11:25:00 11:25:00 Seybol d 2021-04-02 2021-04-02 Office Surendra Valle 1.2.840.114 [id number] [place] 10:00:00 10:30:00 Visit Caroline He 350.1.13.13 Se ybold 1.2.7.2.686 [id number] 2021-03-26 2021-03-26 Outpatient CHEYENNE VALLE [id number] [place] 00:00:00 00:00:00 CAROLINE Seybol d 2021-03-26 2021-03-26 Outpatient CHEYENNE VALLE [id number] [place] 00:00:00 00:00:00 CAROLINE Seybol d 2021-03-06 2021-03-06 Outpatient CHEYENNE VALLE [id number] [place] 00:00:00 00:00:00 CAROLINE Seybol d 2021-03-05 2021-03-05 Office Surendra Valle 1.2.840.114 [id number] [place] 10:30:00 11:00:00 Visit Caroline He 350.1.13.13 Se ybold 1.2.7.2.686 [id number] 2021-03-05 2021-03-05 Outpatient CHEYENNE VALLE [id number] [place] 00:00:00 00:00:00 CAROLINE Seybol d 2019-07-20 2019-07-20 Telephone ROBSON Duran 1.2.840.114 [id number] 00:00:00 00:00:00 Lukasz [facility] 350.1.13.10 Surgical 4.2.7.2.686 Specialti [id number] es [address] [place] 2019-07-06 2019-07-06 Telephone ROBSON Duran 1.2.840.114 [id number] 00:00:00 00:00:00 Lukasz Pinzon 350.1.13.10 Surgical 4.2.7.2.686 Specialti [id number] es [address] [place] 2019-07-04 2019-07-04 Telephone ROBSON Duran 1.2.840.114 [id number] 00:00:00 00:00:00 Lukasz Pinzon 350.1.13.10 Surgical 4.2.7.2.686 Specialti [id number] es [address] [place] 2019-06-29 2019-06-29 Office ROBSON Duran [id number] 08:56:15 09:22:49 Visit Lukasz Pinzon 350.1.13.10 Surgical 4.2.7.2.686 Specialti [id number] es [address] [place] 2019-05-02 2019-05-03 Inpatient [facility] [id number] [place] 07:39:00 19:00:00 [facility] 2019-04-[facility] 2019-04-11 [id number] 14:50:00 MAYA Nguyen [facility] Results Test Description Test Time Test Comments Results Result Comments Source URINALYSIS, ROUTINE 2021-04-03 16:56:00 Test Item Value Reference Range Interpretation Comme nts SPECIFIC GRAVITY (test 1.005-1.030 code = 5811-5) PH (test code = 5803-2) 5.0-7.5 URINE-COLOR (test code = Yellow Yellow 5778-6) APPEARANCE (test code = Clear Clear 5767-9) WBC ESTERASE (test code = 1+ Negative A 5799-2) PROTEIN (test code = Negative Negative/Trace 05583-3) GLUCOSE (test code = Negative Negative 35578-4) KETONES (test code = Negative Negative 2514-8) OCCULT BLOOD (test code = Negative Negative 5794-3) BILIRUBIN (test code = Negative Negative 5770-3) UROBILINOGEN,SEMI-QN (test 0.2 mg/dL 0.2-1.0 code = 58705-9) NITRITE, URINE (test code Negative Negative = 5802-4) MICROSCOPIC EXAMINATION See below: Micr oscopic was (test code = 53018-6) indica senthil and was performed. [place] (test code = [place]) [facility] results reported in Eastern Time. [facility] Clinical Information:SRC:Urin e*Urine ?LCA Source of Specimen:Urine*Urine Lab Interpretation (test Abnormal code = 95982-5) [place] SeyboldMICROSCOPIC [id number] 16:56:00 Test Item Value Reference Range Interpretation Comments WBC (test code = 11-30 See_Comment A [Automated 5821-4) message] The system which generated this result transmit senthil reference range : 0 - 5 /hpf. The reference range was not used to interpret this result as normal/abnormal . RBC (test code = None seen See_Comment [Automated 90274-1) message] The system which generated this result transmit senthil reference range : 0 - 2 /hpf. The reference range was not used to interpret this result as normal/abnormal . EPITHELIAL CELLS (NON 0-10 See_Comment [Auto mated RENAL) (test code = message] The 5787-7) system which generated this result transmit senthil reference range : 0 - 10 /hpf. The reference range was not used to interpret this result as normal/abnormal . CASTS (test code = None seen None seen /lpf 77680-4) BACTERIA (test code = None seen None seen/Few 5769-5) [place] (test code = [place]) [facility] results reported in Eastern Time. [facility] Clinical Information:SRC :Urine*Urine ?LCA Source of Specimen:Urine* Urine Lab Interpretation Abnormal (test code = 29271-1) Cheyenne GrimesoldMAGNESIUM, [id number] 14:37:00 Test Item Value Reference Range Interpretation Comments MAGNESIUM, SERUM 1.9 mg/dL 1.6-2.3 (test code = 96496-6) [place] (test code = [place]) [facility] results reported in Eastern Time. [facility] Clinical Information:[facility] Source of Specimen:Blood, venous*Venipunc [place] BradyPHOSPHORUS, [id number] 14:37:00 Test Item Value Reference Range Interpretation Comments PHOSPHORUS, SERUM 3.2 mg/dL 2.8-4.1 (test code = 2777-1) [place] (test code = [place]) [facility] results reported in Eastern Time. [facility] Clinical Information:SRC:Blood, venous*Venipunc ture ? [facility] Source of Specimen:Blood, venous*Venipunc [place] BradyCOMP. METABOLIC PANEL (14)2021-04-03 14:09:00 Test Item Value Reference Range Interpretation Comments GLUCOSE, SERUM (test 101 mg/dL 65-99 H code = 2345-7) BUN (test code = 22 mg/dL - 3094-0) CREATININE, SERUM 1.22 mg/dL 0.76-1.27 ? (test code = 2160-0) Effec tive April 07, 2021 [facility] will begin ? reporting the 2020 CKD-EPI creatin ine equation that ? estimat es kidney function without a race variable. EGFR IF NONAFRICN AM 70 mL/min/1.73 >59 (test code = 61469-3) EGFR IF AFRICN AM 81 mL/min/1.73 >59 In acc ordance with (test code = recommendations from 92920-5) the NKF-ASN Tas k force, ?[facility] is in the process of updating its eG FR calculation to the ?2020 CKD-EPI creatinine equa tion that estimates kidney function ?witho ut a race variable. BUN/CREATININE RATIO 9-20 (test code = 3097-3) SODIUM, SERUM (test 138 mmol/L 134-144 code = 2951-2) POTASSIUM, SERUM 5.6 mmol/L 3.5-5.2 H (test code = 2823-3) CHLORIDE, SERUM 105 mmol/L 96-106 (test code = 5-0) CARBON DIOXIDE, 20 mmol/L 20-29 TOTAL (test code = 2027-10) CALCIUM, SERUM (test 9.4 mg/dL 8.7-10.2 code = 89776-2) PROTEIN, TOTAL, 7.1 g/dL 6.0-8.5 SERUM (test code = 2885-2) ALBUMIN, SERUM (test 4.7 g/dL 4.0-5.0 code = 1751-7) GLOBULIN, TOTAL 2.4 g/dL 1.5-4.5 (test code = 89485-5) A/G RATIO (test code 1.2-2.2 = 1759-0) BILIRUBIN, TOTAL 0.3 mg/dL 0.0-1.2 (test code = 1975-2) ALKALINE See_Comment H [Automated mes jing] PHOSPHATASE, SERUM The syste m which (test code = 6768-6) generat ed this result transmitted ref erence range: 44 - 121 IU/L. The reference r reece was not used to interpret this result as normal/abnor mal. AST (SGOT) (test See_Comment [Automated message] code = 1920-8) The system [employer] generated this result transmitted ref erence range: 0 - 40 I U/L. The reference r reece was not used to interpret this result as normal/abnor mal. ALT (SGPT) (test See_Comment [Automated message] code = 1742-6) The system [employer] generated this result transmitted ref erence range: 0 - 44 I U/L. The reference r reece was not used to interpret this result as normal/abnor mal. [place] (test code = [facility] [place]) results reported in Eastern Time. [facility] Clinical Information:SR C:Blood, venous*Venipun c ture ? [facility] Source of Specimen:Blood , venous*Venipun c Lab Interpretation Abnormal (test code = 95503-3) Cheyenne Brady
[2021-09-10] MEDS ORDERED: MORPHINE 4 MG/ML SYR ONE (15:26)
[2021-09-10] MEDS ORDERED: ONDANSETRON 4 MG/2 ML VIAL ONE (15:26)
[2021-09-10 15:37] LABS: Absolute Lymphocytes (CBC) 1.2 K/uL (0.7-4.9); Hematocrit 36.7 % (39.6-49.0); Lymphocytes % 8.6 % (15.3-44.8); MCV 95.6 fL (80-100); MPV 8.5 fL (7.6-11.3); RBC Red Blood Cell Count 3.84 M/uL (4.33-5.43)
[2021-09-10 16:01] LABS: Potassium 5.8 mmol/L (3.5-5.1)
--- NOTE | 2021-09-10 16:01 | RAD REPORT ---
EXAM DESCRIPTION: CT - Stone Protocol - 09/10/2021 3:37 pm CLINICAL HISTORY: left flank pain, fall COMPARISON: CT ABD PELVIS W CONTRAST dated 08/19/2012 TECHNIQUE: Axial 3 mm thick images were obtained without oral or IV contrast. The vjrxl-rt-dwnr span s the entirety of the system including uppermost abdomen and lung bases. All CT scans are performed using dose optimization technique as appropriate and may include automated exposure control or mA/KV adjustment according to patient size. FINDINGS: No dense consolidations seen in the lung base. However, there is patchy alveolar opacifica tion in the left lower lobe and minimally in the lingula. No pneumothorax or pleural effusion. No car diomegaly or pericardial effusion. No hydronephrosis is present and no obstructing ureteral calculi. A punctate 3 mm calcification is pr esent lower pole of the left kidney. No perinephric stranding. No suspicious renal masses. Isodense m asses and pyelonephritis are not excluded on a stone protocol CT scan. No significant adrenal finding . No urinary bladder suspicious finding. Imaged portions of the liver, spleen and pancreas show no suspicious findings on non-contrast imaging . Cholecystectomy clips are present. No biliary tree dilatation. Postsurgical gastric changes are present. Fluid filled gastric lumen noted with no wall thickening or mass. No gastric wall edema. Small bowel loops are unremarkable. Small bowel anastomosis without acu te findings. Moderate stool volume present in the colon. No hernia, mass or bulky lymphadenopathy noted. No free air, free fluid or inflammatory stranding. Disc and bone degenerative changes are present. No acute bone finding. IMPRESSION: No hydronephrosis, obstructing calculus or acute finding. Isodense masses and pyelonephritis are not excluded on stone protocol technique. Left lower lobe parenchymal opacification is present suspicious for early pneumonia. Correlation is n eeded to determine if the patient's left flank symptoms may be due to a left base pneumonia.
[2021-09-10] MEDS ORDERED: INSULIN -REGULAR HUMAN 50 UNIT/0.5 ML ML ONE ×2 (18:33→18:35)
[2021-09-10] MEDS ORDERED: DEXTROSE 10%-WATER 500 ML IV ONE (18:38)
[2021-09-10] MEDS ORDERED: SOD POLYSTYREN SUL 15 GM/60 ML UCUP ONE ×2 (18:38→18:45)
[2021-09-10] MEDS ORDERED: ALBUTEROL INHALER 60 PUFF/8 GM IH ONE (18:39)
--- NOTE | 2021-09-10 19:26 | EDPHYS ---
Physician Documentation [facility] Name: Rhett Ayers Age: 45 yrs Sex: Male : 1975 Arrival Date: 09/10/2021 Time: 15:11 Bed 20 Private MD: ED Physician Jose Carlos Salinas HPI: 09/10 19:22 This 45 yrs old Male presents to ER via EMS with complaints of Low back pain. jmm 19:22 The patient presents with pain that is acute. The symptoms are located in the low back. jmm Onset: The symptoms/episode began/occurred acutely, just prior to arrival. The pain radiates to the left leg. This is a 45-year-old male with history diabetes mellitus, hypertension the presents emerged department with complaints of left flank pain radiating to the left leg. Patient states he sustained multiple falls over the past couple days. Patient did recently have a dental extraction and is taking pain medication for this. Denies shortness of breath or chest pain. Denies fever. Historical: - Allergies: 15:14 No Known Allergies; ld1 - PMHx: 15:14 compressed discs; Diabetes - NIDDM; gastric ulcer; Hypertension; Kidney stone; ld1 Orthostatic hypotension; PUD; - PSHx: 15:14 Cholecystectomy; Gatric Bypass; Ureter sx; ld1 - Immunization history:: Adult Immunizations up to date, Client reports having NOT received the Covid vaccine. - Social history:: Smoking status: Patient denies any tobacco usage or history of. Patient/guardian denies using alcohol. ROS: 19:22 Constitutional: Negative for fever, chills, and weight loss, Cardiovascular: Negative jmm for chest pain, palpitations, and edema, Respiratory: Negative for shortness of breath, cough, wheezing, and pleuritic chest pain. 19:22 Back: Positive for pain with movement. 19:22 All other systems are negative. Exam: 19:22 Constitutional: This is a well developed, well nourished patient who is awake, alert, jmm and in no acute distress. Head/Face: atraumatic. Eyes: EOMI, no conjunctival erythema appreciated ENT: Moist Mucus Membranes Neck: Trachea midline, Supple Chest/axilla: Normal chest wall appearance and motion. 19:22 Cardiovascular: Rate: normal, Rhythm: regular. 19:22 Respiratory: the patient does not display signs of respiratory distress, Respirations: normal, Breath sounds: are clear throughout. 19:22 Back: pain, that is moderate, of the left subscapular area, left low back and left mid back. 19:22 Musculoskeletal/extremity: ROM: intact in all extremities. 19:22 Neuro: Orientation: is normal, Mentation: is normal, Memory: is normal. 19:22 Psych: Behavior/mood is pleasant, cooperative. Vital Signs: 15:12 BP 111 / 52; Pulse 67; Resp 18; Temp 97.9(O); Pulse Ox 100% on R/A; Pain 9/10; ld1 17:06 BP 116 / 63; Pulse 69; Resp 18; Pulse Ox 100% on R/A; ld1 18:20 BP 125 / 65; Pulse 78; Resp 18; Pulse Ox 99% on R/A; Weight 117.93 kg; eh3 18:29 BP 129 / 72; Pulse 76; Resp 18; Pulse Ox 100% on R/A; ld1 09/11 00:42 BP 104 / 57; Pulse 91; Resp 20; Pulse Ox 96% on R/A; ja4 03:16 BP 101 / 65; Pulse 69; Resp 20; Pulse Ox 93% on 2 lpm NC; ja4 MDM: 09/10 15:12 Patient medically screened. [facility] 19:24 Data reviewed: vital signs, nurses notes. Counseling: I had a detailed discussion with [facility] the patient and/or guardian regarding: the historical points, exam findings, and any diagnostic results supporting the discharge/admit diagnosis, lab results, the need for further work-up and treatment in the hospital. ED course: I discussed the patient with Dr. Segundo penn whom accepted the patient as consult. I discussed the patient with Hayes Forte excepted the patient to Dr. Martha cowan.. 09/10 15:13 Order name: CBC with Diff; Complete Time: 16:10 [facility] 09/10 15:13 Order name: BMP; Complete Time: 16:10 [facility] 09/10 18:16 Order name: Troponin High Sensitivity; Complete Time: 20:18 [facility] 09/10 18:16 Order name: Lactate; Complete Time: 20:18 [facility] 09/10 18:16 Order name: Blood Culture Adult (2) [facility] 09/10 19:56 Order name: SARS RAPID jmm 09/10 20:45 Order name: SARS-COV-2 Antigen Rapid EDMS 09/10 21:59 Order name: Glucose, Ancillary Testing EDMS 09/10 22:00 Order name: Urine Dipstick-Ancillary EDMS 09/10 22:46 Order name: Glucose, Ancillary Testing EDMS 09/11 00:24 Order name: Basic Metabolic Panel EDMS 09/11 01:44 Order name: Glucose, Ancillary Testing EDMS 09/11 02:39 Order name: CBC with Automated Diff EDMS 09/11 02:58 Order name: Comprehensive Metabolic Panel EDMS 09/11 02:58 Order name: Creatine Phosphokinase EDMS 09/11 02:58 Order name: Lipid Profile EDMS 09/11 02:58 Order name: T4 Free EDMS 09/11 02:58 Order name: Thyroid Stimulating Hormone EDMS 09/11 03:24 Order name: Hemoglobin A1c EDMS / 08:01 Order name: Glucose, Ancillary Testing EDMS / 12:02 Order name: Glucose, Ancillary Testing EDMS 09/11 14:03 Order name: Potassium EDMS 09/11 17:29 Order name: Procalcitonin EDMS / 17:32 Order name: Glucose, Ancillary Testing EDMS 09/11 20:46 Order name: Glucose, Ancillary Testing EDMS 09/12 03:34 Order name: CBC with Automated Diff EDMS 09/12 03:53 Order name: Comprehensive Metabolic Panel EDMS 09/12 03:53 Order name: Uric Acid EDMS 09/12 03:53 Order name: Phosphorus EDMS 09/12 03:53 Order name: Creatine Phosphokinase EDMS 09/10 15:13 Order name: Saline Lock; Complete Time: 15:26 m 09/10 15:13 Order name: CT Stone Protocol; Complete Time: 16:10 m 09/10 16:35 Order name: EKG - Nurse/Tech; Complete Time: 17:22 m 09/10 18:23 Order name: CT Chest Wo Con; Complete Time: 19:38 jmm 09/10 19:10 Order name: Urine Dipstick-Ancillary (obtain specimen); Complete Time: 20:55 jmm 09/11 08:37 Order name: US EDMS 09/12 03:53 Order name: Magnesium EDMS 09/12 06:13 Order name: Glucose, Ancillary Testing EDMS Administered Medications: 15:26 Drug: morphine 4 mg Route: IVP; Infused Over: 4 mins; Site: right antecubital; ld1 18:53 Follow up: Response: No adverse reaction ld1 15:26 Drug: Zofran (Ondansetron) 4 mg Route: IVP; Site: right antecubital; ld1 18:53 Follow up: Response: No adverse reaction ld1 19:09 CANCELLED (Patient Refused): NS 0.9% 1000 ml IV at 1 bolus Per protocol; 1000 mL bolus [facility] 19:10 Drug: D10 in Water [2 mL/kg] 2 ml/kg Route: IVP; Site: right antecubital; [facility] 19:10 Drug: Albuterol 2.5 mg Route: Inhalation; 3 19:10 Drug: Kayexalate (polystyrene) 60 grams Route: PO; [facility] 20:00 Follow up: Response: No adverse reaction j9 19:25 Drug: Insulin Regular Human 10 units {Co-Signature: [facility] (Geovanna Bradley).} Route: IVP; Site: ld1 right antecubital; 20:00 Follow up: Response: No adverse reaction jg9 20:42 Drug: Rocephin - (cefTRIAXone) 1 grams Route: IVPB; Infused Over: 30 mins; Site: right bb antecubital; 20:59 Follow up: IV Status: Completed infusion; IV Intake: 50ml bb 20:46 Drug: NS 0.9% 250 ml Route: IV; Rate: bolus; Site: right antecubital; 22:00 Follow up: IV Status: Completed infusion; IV Intake: 250ml j9 20:59 Drug: Zithromax (azithromycin) 500 mg Route: IVPB; Infused Over: 1 hrs; Site: right bb antecubital; 22:00 Follow up: IV Status: Completed infusion; IV Intake: 250ml jg9 09/11 07:39 Not Given (previous shiftt): Kayexalate (polystyrene) 30 grams PO once jg9 Disposition Summary: 09/10/21 19:25 Hospitalization Ordered Hospitalization Status: Inpatient Admission jmm Provider: Jose Maria Thomas Condition: Stable jmm Problem: new jmm Symptoms: are unchanged jmm Bed/Room Type: Standard [facility] Location: [facility] ER HOLD(09/10/21 21:27) tw5 Room Assignment: ERHOLD-(09/10/21 21:27) tw5 Diagnosis - Acute Renal Failure [facility] - Hyperkalemia werner - Pneumonia werner Forms: - Medication Reconciliation Form werner - SBAR form sandra Signatures: Dispatcher [employer] EDMS Jethro Huerta PA PA jmm Ballard, Brenda, RN RN Hayes Zarco, LINUX SECURITY ADMINISTRATOR-C LINUX SECURITY ADMINISTRATOR-[facility]1 Kamilah Griffith RN RN cinthia1 Myrna Copeland tw5 January Rich RN RN jg9 Kirk, Geovanna 3 Geovanna Bradley 3 Corrections: (The following items were deleted from the chart) 09/10 19:09 19:09 NS 0.9% 1000 ml IV at 1 bolus Per protocol; 1000 mL bolus ordered. [facility] : 19:25 Telemetry/MedSurg (Inpatient) [place] [id number] : 19:25 [place] [id number]
--- NOTE | 2021-09-10 19:26 | ER ---
Nurse's Notes [facility] Name: Rhett Ayers Age: 45 yrs Sex: Male : 1975 Arrival Date: 09/10/2021 Time: 15:11 Bed 20 Private MD: Diagnosis: Acute Renal Failure;Hyperkalemia;Pneumonia Presentation: 09/10 15:12 Chief complaint: EMS states: toned out to pt home for left flank pain X 24 hours. ld1 Coronavirus screen: At this time, the client does not indicate any symptoms associated with coronavirus-19. Ebola Screen: No symptoms or risks identified at this time. Initial Sepsis Screen: Does the patient meet any 2 criteria? No. Patient's initial sepsis screen is negative. Does the patient have a suspected source of infection? No. Patient's initial sepsis screen is negative. Risk Assessment: Do you want to hurt yourself or someone else? Patient reports no desire to harm self or others. Onset of symptoms was September 10, 2021. 15:12 Method Of Arrival: EMS: [facility] ld1 15:12 Acuity: SANTIAGO 3 ld1 Triage Assessment: 15:14 General: Appears in no apparent distress. uncomfortable, Behavior is calm, cooperative, ld1 appropriate for age. Pain: Complains of pain in left low back Pain does not radiate. Pain currently is 9 out of 10 on a pain scale. Quality of pain is described as sharp, throbbing, Pain began 1 day ago. Is continuous. EENT: No signs and/or symptoms were reported regarding the EENT system. Neuro: Level of Consciousness is awake, alert, obeys commands, Oriented to person, place, time, situation. Cardiovascular: Capillary refill < 3 seconds Patient's skin is warm and dry. Respiratory: Airway is patent Respiratory effort is even, unlabored. GI: Abdomen is round non-distended. : Reports pain in left flank(s). Derm: No signs and/or symptoms reported regarding the dermatologic system. Musculoskeletal: No signs and/or symptoms reported regarding the musculoskeletal system. Historical: - Allergies: 15:14 No Known Allergies; ld1 - PMHx: 15:14 compressed discs; Diabetes - NIDDM; gastric ulcer; Hypertension; Kidney stone; ld1 Orthostatic hypotension; PUD; - PSHx: 15:14 Cholecystectomy; Gatric Bypass; Ureter sx; ld1 - Immunization history:: Adult Immunizations up to date, Client reports having NOT received the Covid vaccine. - Social history:: Smoking status: Patient denies any tobacco usage or history of. Patient/guardian denies using alcohol. Screenin:35 Abuse screen: na. Nutritional screening: No deficits noted. Tuberculosis screening: No [facility] symptoms or risk factors identified. Fall Risk Fall in past 12 months (25 points). IV access (20 points). Gait- Weak (10 pts.). Assessment: 17:06 Reassessment: Patient appears in no apparent distress at this time. See triage ld1 assessment. 20:58 Reassessment:. ja4 21:15 Reassessment: Pt up to the restroom at this time. will complete meds when pt returns. ja4 Vital Signs: 15:12 BP 111 / 52; Pulse 67; Resp 18; Temp 97.9(O); Pulse Ox 100% on R/A; Pain 9/10; ld1 17:06 BP 116 / 63; Pulse 69; Resp 18; Pulse Ox 100% on R/A; ld1 18:20 BP 125 / 65; Pulse 78; Resp 18; Pulse Ox 99% on R/A; Weight 117.93 kg; eh3 18:29 BP 129 / 72; Pulse 76; Resp 18; Pulse Ox 100% on R/A; ld1 08/04 00:42 BP 104 / 57; Pulse 91; Resp 20; Pulse Ox 96% on R/A; ja4 03:16 BP 101 / 65; Pulse 69; Resp 20; Pulse Ox 93% on 2 lpm NC; ja4 ED Course: 09/10 15:11 Patient arrived in ED. 3 15:12 Jethro Huerta PA is PHCP. [facility] 15:12 Jose Carlos Salinas MD is Attending Physician. [facility] 15:12 Kamilah Griffith, RN is Primary Nurse. ld1 15:14 Triage completed. ld1 15:14 Arm band placed on right wrist. ld1 15:26 BMP Sent. ld1 15:26 CBC with Diff Sent. ld1 15:26 Inserted saline lock: 20 gauge in right antecubital area, using aseptic technique. ld1 Blood collected. 15:39 CT Stone Protocol In Process Unspecified. EDMS 19:01 CT Chest Wo Con In Process Unspecified. EDMS 19:25 Jose Maria Thomas MD is Hospitalizing Provider. jmm 19:36 Lactate Sent. oe 19:36 Troponin High Sensitivity Sent. oe 20:55 SARS RAPID Sent. ja4 21:16 Blood Culture Adult (2) Sent. ja4 21:35 Patient has correct armband on for positive identification. Bed in low position. Call ja4 light in reach. Side rails up X2. Adult w/ patient. 21:35 No provider procedures requiring assistance completed. 4 09/11 07:29 Patient admitted, IV remains in place. jg9 Administered Medications: 09/10 15:26 Drug: morphine 4 mg Route: IVP; Infused Over: 4 mins; Site: right antecubital; ld1 18:53 Follow up: Response: No adverse reaction ld1 15:26 Drug: Zofran (Ondansetron) 4 mg Route: IVP; Site: right antecubital; 1 18:53 Follow up: Response: No adverse reaction ld1 19:09 CANCELLED (Patient Refused): NS 0.9% 1000 ml IV at 1 bolus Per protocol; 1000 mL bolus [facility] 19:10 Drug: D10 in Water [2 mL/kg] 2 ml/kg Route: IVP; Site: right antecubital; [facility] 19:10 Drug: Albuterol 2.5 mg Route: Inhalation; 3 19:10 Drug: Kayexalate (polystyrene) 60 grams Route: PO; 3 20:00 Follow up: Response: No adverse reaction [facility] 19:25 Drug: Insulin Regular Human 10 units {Co-Signature: 3 (Geovanna Bradley).} Route: IVP; Site: ld1 right antecubital; 20:00 Follow up: Response: No adverse reaction j9 20:42 Drug: Rocephin - (cefTRIAXone) 1 grams Route: IVPB; Infused Over: 30 mins; Site: right bb antecubital; 20:59 Follow up: IV Status: Completed infusion; IV Intake: 50ml bb 20:46 Drug: NS 0.9% 250 ml Route: IV; Rate: bolus; Site: right antecubital; bb 22:00 Follow up: IV Status: Completed infusion; IV Intake: 250ml j9 20:59 Drug: Zithromax (azithromycin) 500 mg Route: IVPB; Infused Over: 1 hrs; Site: right bb antecubital; 22:00 Follow up: IV Status: Completed infusion; IV Intake: 250ml jg9 09/11 07:39 Not Given (previous shiftt): Kayexalate (polystyrene) 30 grams PO once jg9 Medication: 07:29 VIS not applicable for this client. jg9 Intake: 09/10 20:59 IV: 50ml; Total: 50ml. bb 22:00 IV: 250ml; Total: 300ml. jg9 22:00 IV: 250ml; Total: 550ml. jg9 Outcome: 19:25 Decision to Hospitalize by Provider. sandra 09/11 07:29 Admitted to ER Hold. Please see [facility] for further documentation. jg9 Condition: stable 09/12 09:07 Patient left the ED. aa5 Signatures: Dispatcher [employer] EDMS Jethro Huerta PA PA Mirtha Powell RN RN Lisbeth Stokes RN RN aa5 Carlos Alberto Pelletier Lauren RN RN ld1 January Rich RN RN jGeovanna Solorio 3 Hipolito Lozoya RN RN ja4 Geovanna Bradley 3 Corrections: (The following items were deleted from the chart) 09/10 19:21 19:10 Kayexalate (polystyrene) 30 grams PO eh3 eh3 09/11 07:39 0803 22:00 Kayexalate (polystyrene) 30 grams PO jg9 jg9 09/11 07:39 0803 22:30 Response: No adverse reaction jg9 jg9 09/11 14:58 14:58 Response: No adverse reaction jg9 jg9 14:59 09/10 20:00 Response: No adverse reaction jg9 jg9 09/11 15:01 08 20:00 Response: No adverse reaction jg9 jg9
--- NOTE | 2021-09-10 19:35 | RAD REPORT ---
EXAM DESCRIPTION: CT - Thorax Wo Scott - 09/10/2021 6:59 pm CLINICAL HISTORY: flank pain, pnemonia COMPARISON: No comparisons TECHNIQUE: Axial 5 mm thick images of the chest were obtained without IV contrast. All CT scans are performed using dose optimization technique as appropriate and may include automated exposure control or mA/KV adjustment according to patient size. FINDINGS: Patchy interstitial and alveolar opacities are present in the left lower lobe and minimall y in the posterior lingula. Right lung field is clear. No dense consolidation. No mass or cavitation seen. In the acute clinical setting a mild or early pneumonia would be most likely. There is no pneum othorax or pleural effusion. No pleural based mass. No abnormal mediastinal or hilar masses or lymphadenopathy seen. No gross aortic or pulmonary artery finding suspected. Assessment is limited in the absence of IV contrast. No chest wall mass or abnormal axillary lymphadenopathy. IMPRESSION: Patchy interstitial and alveolar opacities scattered in the left lower lobe and minimall y in the posterior lingula of the left upper lobe. In the acute clinical setting a mild or early pneumonia would be most likely.
[2021-09-10] MEDS ORDERED: NA CHLORIDE 0.9% 250 ML ONE ×2 (20:35→20:55)
[2021-09-10] MEDS ORDERED: NA CHLORIDE 0.9% 50 ML ONE (20:35)
[2021-09-10] MEDS ORDERED: CEFTRIAXONE 1000 MG/VIAL ONE (20:35)
[2021-09-10] MEDS ORDERED: AZITHROMYCIN 500 MG INJ IVPB ONE (20:35)
[2021-09-10 20:45] LABS: SARS-CoV-2 Antigen Rapid Res Negative (Negative)
--- NOTE | 2021-09-10 21:16 | P.HP ---
Certification for Inpatient Patient admitted to: Inpatient With expected LOS: >2 Midnights Patient will require the following post-hospital care: None Practitioner: I am a practitioner with admitting privileges, knowledge of patient current condition, hospital course, and medical plan of care. Services: Services provided to patient in accordance with Admission requirements found in Title 42 Section 412.3 of the Code of Federal Regulations <Hayes Forte - Last Filed: 09/10/21 21:17> Patient History Date of Service: 09/10/21 Reason for admission: Acute renal failure, pneumonia History of Present Illness: 45-year-old male with history of chronic pain, [id number] diabetes, hypertension and reported CKD presents the emergency department for left flank/back pain and feeling unwell. He was evaluated in the emergency department his labs were significant for leukocytosis, acute renal failure, hyperkalemia and mild hyperglycemia he had a CT scan of his chest without contrast which revealed patchy interstitial and alveolar opacities scattered in the left lower lobe and minimally in the posterior lingula of the left upper lobe concern for mild or early pneumonia CT of the abdomen without contrast showed no hydronephrosis, obstructing calculus or acute findings. ED provider discussed case with nephrology patient was given small IV fluid bolus as well as treatment for his hyperkalemia nephrology prefers IV fluids overnight and will consult. Only sirs criteria present is leukocytosis no sepsis at this time. We will continue antibiotics for treatment of pneumonia as well as IV fluids and nephrology consult. - Past Medical/Surgical History Diabetic: Yes -: Chronic back pain -: DM II age 22 -: Gastric ulcer -: Anemia -: HTN -: R knee surgery -: Gastric bypass -: Phimosis skin graft -: Circumcision -: Jackie -: rt knee surg Psychosocial/ Personal History: Patient lives at home with his , is disabled - Family History Mother -: Heart disease, Diabetes Notes: of cirrrosis of liver Father -: Diabetes Brother -: Hypertension, Diabetes Notes: at 39yr old from "natural causes" - Social History Smoking Status: Never smoker Alcohol use: No CD- Drugs: No Caffeine use: Yes Place of Residence: Home <Hayes Forte - Last Filed: 09/10/21 21:17> Date of Service: 09/11/21 <Larry Jones - Last Filed: 09/11/21 16:08> Allergies No Known Allergies Allergy (Verified 08/02/19 10:37) Home Medications: Gabapentin [Neurontin] 800 mg PO Q8H 04/02/19 Multivitamin [Daily Multiple Vitamin] 1 each PO DAILY 04/02/19 Tizanidine HCl [Zanaflex] 6 mg PO Q6H 04/02/19 Hydrocodone 7.5/APAP 325 [[place] 7.5/325 mg*] 1 tab PO Q6H PRN 08/18/19 Amlodipine [Norvasc] 5 mg PO DAILY 12/20/20 Fluoxetine HCl [Prozac] 1 cap PO DAILY 12/20/20 Morphine *Extended Release* [MS Contin*] 1 tab PO DAILY 12/20/20 Review of Systems 10-point ROS is otherwise unremarkable General: Weakness, Malaise Gastrointestinal: Nausea Musculoskeletal: Back Pain <Hayes Forte - Last Filed: 09/10/21 21:17> Physical Examination - Physical Exam General: Alert, In no apparent distress, Oriented x3 HEENT: Atraumatic, PERRLA, Mucous membr. moist/pink, EOMI, Sclerae nonicteric Neck: Supple, 2+ carotid pulse no bruit, No LAD, Without JVD or thyroid abnormality Respiratory: Normal air movement, Diminished Cardiovascular: No edema, Regular rate/rhythm, Normal S1 S2 Gastrointestinal: Normal bowel sounds, No tenderness Musculoskeletal: No tenderness Integumentary: No rashes Neurological: Normal speech, Normal strength at 5/5 x4 extr, Normal tone, Normal affect - Studies Laboratory Data (last 24 hrs) 09/10/21 15:25: Sodium 131 L, Potassium 5.8 H*, BUN 89 H, Creatinine 5.53 H*, Glucose 165 H 09/10/21 15:25: WBC 14.0 H, Hgb 11.9 L, Hct 36.7 L, Plt Count 236 <Hayes Forte - Last Filed: 09/10/21 21:17> Assessment and Plan - Plan Assessment: Acute renal failure with hyperkalemia Left lower lobe pneumonia Diabetes mellitus type [id number] Hypertension Plan: Acute renal failure with hyperkalemia: Most recent renal function here with normal creatinine, patient's manager field investigations was consulted we will continue IV fluids overnight, obtain renal ultrasound. Patient denies taking any NSAIDs, he is currently on metformin as well as hydrochlorothiazide, hold these medications. Appreciate further input from nephrology. Left lower lobe pneumonia: Continue Rocephin/Zithromax/incentive spirometry. 14,000 white count no other prescription. Present at this time. Currently not septic. Diabetes mellitus type [id number]: ACH S Accu-Chek, sliding scale insulin. Hold metformin given acute renal failure. Hypertension: Patient not completely sure was on medications but believes he is taking hydrochlorothiazide we will hold this medication. Provide medication as needed for hypertension will need adjustment of his medications given renal function. DVT PPX: Heparin Code status: Full Discharge Plan: Home Plan to discharge in: 72 Hours - Advance Directives Does patient have a Living Will: No Does patient have a Durable POA for Healthcare: Yes - Code Status/Comfort Care Code Status Assessed: Yes (Full code) Critical Care: No Time Spent Managing Pts Care (In Minutes): 70 <Hayes Forte - Last Filed: 09/10/21 21:17> Physician Review: Patient Assessed, Agree with Above Assessment and Plan <Larry Jones - Last Filed: 09/11/21 16:08>
[2021-09-10 21:59] LABS: Urine Blood 1+ (Negative); Urine Glucose Negative (Negative); Urine Protein 1+ (Negative); Urine Specific Gravity 1.015 (1.005-1.030); Urine pH 5.5 (5.0-7.0)
[2021-09-10] MEDS ORDERED: ONDANSETRON 4 MG/2 ML VIAL IV PRN (21:59)
[2021-09-10] MEDS ORDERED: ACETAMINOPHEN 500 MG TAB PO PRN (21:59)
[2021-09-10] MEDS ORDERED: NA CHLORIDE 0.9% 1,000 ML IV SCH (21:59)
[2021-09-10] MEDS: HEPARIN 5000 UNIT/ML 1 ML VIAL SQ SCH (21:59)
[2021-09-10] MEDS: INSULIN -REGULAR HUMAN 50 UNIT/0.5 ML ML SQ SCH (21:59)
[2021-09-10] MEDS ORDERED: HYDROCODONE/APAP 5/325 MG TAB ONE (22:55)
[2021-09-10] MEDS ORDERED: NA CHLORIDE 0.9% 1,000 ML ONE (22:55)
[2021-09-10] MEDS ORDERED: HEPARIN 5000 UNIT/ML 1 ML VIAL ONE (22:55)
[2021-09-10] MEDS: HYDROCODONE/APAP 7.5/325 MG TAB PO PRN (23:00)
[2021-09-10] MEDS ORDERED: HYDROCODONE/APAP 7.5/325 MG TAB ONE (23:09)
[2021-09-11] MEDS ORDERED: FUROSEMIDE 40 MG/4 ML VIAL IV ONE (00:34)
[2021-09-11] MEDS ORDERED: CALCIUM GLUC 10% INJ 4.65 MEQ in NA CHLORIDE 0.9% 100 ML IV ONE (00:34)
[2021-09-11] MEDS ORDERED: GLUCAGON 1 MG/VIAL IM PRN ×2 (00:36→07:48)
[2021-09-11] MEDS ORDERED: D50W 25 GM/50 ML SYRINGE IV PRN ×2 (00:36→07:48)
[2021-09-11] MEDS ORDERED: INSULIN -REGULAR HUMAN 50 UNIT/0.5 ML ML IV ONE ×2 (00:37→08:00)
[2021-09-11] MEDS ORDERED: D10W 125 ML IV PRN (00:44)
[2021-09-11] MEDS ORDERED: CALCIUM GLUCONATE 1 GM IVPB 1 GM/50 ML BAG IV ONE ×2 (00:45→01:00)
[2021-09-11] MEDS ORDERED: FUROSEMIDE 40 MG/4 ML VIAL ONE (00:59)
[2021-09-11] MEDS ORDERED: INSULIN -REGULAR HUMAN 50 UNIT/0.5 ML ML ONE ×3 (00:59→12:54)
[2021-09-11] MEDS ORDERED: D10W 250 ML IV ONE ×2 (01:00→08:00)
[2021-09-11] MEDS ORDERED: NA CHLORIDE 0.9% 250 ML IV ONE (01:12)
[2021-09-11 01:34] VITALS: BMI 33.3
[2021-09-11 02:32] LABS: Absolute Lymphocytes (CBC) 0.9 K/uL (0.7-4.9); Hematocrit 33.7 % (39.6-49.0); Lymphocytes % 8.2 % (15.3-44.8); MCV 95.2 fL (80-100); MPV 8.4 fL (7.6-11.3); RBC Red Blood Cell Count 3.54 M/uL (4.33-5.43)
[2021-09-11 02:57] LABS: Albumin 3.3 g/dL (3.4-5.0); Bilirubin Total 0.2 mg/dL (0.2-1.0); Protein, Total 7.4 g/dL (6.4-8.2); Thyroid Stimulating Hormone 0.138 uIU/mL (0.360-3.740)
[2021-09-11 02:58] LABS: Potassium 5.6 mmol/L (3.5-5.1)
[2021-09-11] MEDS: INSULIN -REGULAR HUMAN 50 UNIT/0.5 ML ML SQ SCH ×4 (07:30→21:00)
[2021-09-11] MEDS ORDERED: SOD POLYSTYREN SUL 15 GM/60 ML UCUP PO ONE ×2 (07:46→09:54)
[2021-09-11] MEDS ORDERED: D50W 25 GM/50 ML SYRINGE IV ONE (07:47)
--- NOTE | 2021-09-11 07:53 | P.PN ---
Date of Service: 09/11/21 Brief Renal note (full consult note to follow, chart review only) Pt presents with Stage III ARF per REILLY definition with presenting Cr level > 4 mg/dl, but levels slowly downward trending with volume challenge. CT scan shows no obstuctive uropathy. UA not too impressive. Pt also with hyperkalemia s/p medical treatment with lower level this AM but still > 5 mmol/L so will dose D50/IV insulin regular push and Kayexalate. Will plance on sodium bicarb added IVF to address bicarb deficit, lung imaging shows no major pulm edema and prior echo did not show systolic dysfunction. Dr. Ferguson to follow up on this pt later today. Cj Ruiz MD, [facility]
[2021-09-11] MEDS: NACHLORIDE 0.45% 1,000 ML with NA BICARB 8.4% 75 MEQ IV SCH ×4 (08:00→18:45)
[2021-09-11] MEDS ORDERED: HYDROCODONE/APAP 7.5/325 MG TAB ONE (08:00)
[2021-09-11] MEDS: HYDROCODONE/APAP 7.5/325 MG TAB PO PRN (08:03)
--- NOTE | 2021-09-11 08:36 | RAD REPORT ---
EXAM DESCRIPTION: US - Renal Ultrasound-Complete - 09/11/2021 1:55 am CLINICAL HISTORY: arf Flank pain COMPARISON: Renal Ultrasound-Complete dated 12/20/2020 FINDINGS: Both kidneys are normal in size, shape and echotexture. The right kidney measures 10.3 x 6.4 x 4.7 cm. No hydronephrosis, focal mass or perinephric fluid. The left kidney measures 10.8 x 6.7 x 5.3 cm. No hydronephrosis, focal mass or perinephric fluid. The urinary bladder is incompletely distended without gross abnormality seen. IMPRESSION: Unremarkable renal sonogram.
[2021-09-11] MEDS: HEPARIN 5000 UNIT/ML 1 ML VIAL SQ SCH ×2 (09:00→21:00)
[2021-09-11] MEDS ORDERED: SOD POLYSTYREN SUL 15 GM/60 ML UCUP ONE ×2 (09:16→11:33)
[2021-09-11] MEDS ORDERED: HEPARIN 5000 UNIT/ML 1 ML VIAL ONE ×2 (09:17→20:53)
[2021-09-11] MEDS: SODIUM BICARB 325 MG TAB PO SCH ×4 (10:00→21:00)
--- NOTE | 2021-09-11 10:01 | P.CNS ---
Date of Consult: 09/11/21 Reason for Consult: MIGUEL/ CKD Requesting Physician: Larry Jones Chief Complaint: Acute renal failure, pneumonia History of Present Illness: 45-year-old male with history of chronic pain, onh-[id number]-[id number] diabetes, hypertension and reported CKD presents the emergency department for left flank/back pain and feeling unwell. He was evaluated in the emergency department his labs were significant for leukocytosis, acute renal failure, hyperkalemia and mild hyperglycemia he had a CT scan of his chest without contrast which revealed patchy interstitial and alveolar opacities scattered in the left lower lobe and minimally in the posterior lingula of the left upper lobe concern for mild or early pneumonia CT of the abdomen without contrast showed no hydronephrosis, obstructing calculus or acute findings. ED provider discussed case with nephrology patient was given small IV fluid bolus as well as treatment for his hyperkalemia nephrology prefers IV fluids overnight and will consult. Only sirs criteria present is leukocytosis no sepsis at this time. We will continue antibiotics for treatment of pneumonia as well as IV fluids and nephrology consult. 19:22 This 45 yrs old Male presents to ER via EMS with complaints of Low back pain. [facility] 19:22 The patient presents with pain that is acute. The symptoms are located in the low back. jmm Onset: The symptoms/episode began/occurred acutely, just prior to arrival. The pain radiates to the left leg. This is a 45-year-old male with history diabetes mellitus, hypertension the presents emerged department with complaints of left flank pain radiating to the left leg. Patient states he sustained multiple falls over the past couple days. Patient did recently have a dental extraction and is taking pain medication for this. Denies shortness of breath or chest pain. Denies fever. Allergies No Known Allergies Allergy (Verified 08/02/19 10:37) Home medications list reviewed: Yes Home Medications: Gabapentin [Neurontin] 800 mg PO Q8H 04/02/19 Multivitamin [Daily Multiple Vitamin] 1 each PO DAILY 04/02/19 Tizanidine HCl [Zanaflex] 6 mg PO Q6H 04/02/19 Hydrocodone 7.5/APAP 325 [[place] 7.5/325 mg*] 1 tab PO Q6H PRN 08/18/19 Amlodipine [Norvasc] 5 mg PO DAILY 12/20/20 Fluoxetine HCl [Prozac] 1 cap PO DAILY 12/20/20 Morphine *Extended Release* [MS Contin*] 1 tab PO DAILY 12/20/20 - Past Medical/Surgical History Diabetic: Yes -: Chronic back pain -: DM II Dx age 22 -: Gastric ulcer -: Anemia -: HTN -: CKD II with proteinuria/ Hx MIGUEL followed by Dr. Ferguson -: R knee surgery -: Gastric bypass -: Phimosis skin graft -: Circumcision -: Jackie -: rt knee surg Psychosocial/ Personal History: Patient lives at home with his , is disabled - Family History Mother Medical History: Heart disease, Diabetes Notes: of cirrrosis of liver Father Medical History: Diabetes Brother Medical History: Hypertension, Diabetes Notes: at 39yr old from "natural causes" - Social History Alcohol use: No CD- Drugs: No Caffeine use: Yes Place of Residence: Home Review of Systems 10-point ROS is otherwise unremarkable General: Weakness, Malaise Neurological: Weakness Physical Examination Temp Pulse Resp BP Pulse Ox 81 18 117/70 97 09/11/21 08:00 09/11/21 08:03 09/11/21 08:00 09/11/21 08:03 General: Oriented x3, Cooperative HEENT: Atraumatic Neck: Supple Respiratory: Clear to auscultation bilaterally Cardiovascular: No edema, Regular rate/rhythm Gastrointestinal: Hypoactive, Non-distended Musculoskeletal: No clubbing, No contractures Integumentary: No rashes, No cyanosis Neurological: Normal speech Laboratory Data (last 24 hrs) 09/10/21 15:25: Sodium 131 L, Potassium 5.8 H*, BUN 89 H, Creatinine 5.53 H*, Glucose 165 H 09/10/21 15:25: WBC 14.0 H, Hgb 11.9 L, Hct 36.7 L, Plt Count 236 Imagings Data: EXAM DESCRIPTION: US - Renal Ultrasound-Complete - 09/11/2021 1:55 am CLINICAL HISTORY: arf Flank pain COMPARISON: Renal Ultrasound-Complete dated 12/20/2020 FINDINGS: Both kidneys are normal in size, shape and echotexture. The right kidney measures 10.3 x 6.4 x 4.7 cm. No hydronephrosis, focal mass or perinephric fluid. The left kidney measures 10.8 x 6.7 x 5.3 cm. No hydronephrosis, focal mass or perinephric fluid. The urinary bladder is incompletely distended without gross abnormality seen. IMPRESSION: Unremarkable renal sonogram. EXAM DESCRIPTION: CT - Thorax Wo Con - 09/10/2021 6:59 pm CLINICAL HISTORY: flank pain, pnemonia COMPARISON: No comparisons TECHNIQUE: Axial 5 mm thick images of the chest were obtained without IV contrast. All CT scans are performed using dose optimization technique as appropriate and may include automated exposure control or mA/KV adjustment according to patient size. FINDINGS: Patchy interstitial and alveolar opacities are present in the left lower lobe and minimally in the posterior lingula. Right lung field is clear. No dense consolidation. No mass or cavitation seen. In the acute clinical setting a mild or early pneumonia would be most likely. There is no pneumothorax or pleural effusion. No pleural based mass. No abnormal mediastinal or hilar masses or lymphadenopathy seen. No gross aortic or pulmonary artery finding suspected. Assessment is limited in the absence of IV contrast. No chest wall mass or abnormal axillary lymphadenopathy. IMPRESSION: Patchy interstitial and alveolar opacities scattered in the left lower lobe and minimally in the posterior lingula of the left upper lobe. In the acute clinical setting a mild or early pneumonia would be most likely. EXAM DESCRIPTION: CT - Stone Protocol - 09/10/2021 3:37 pm CLINICAL HISTORY: left flank pain, fall COMPARISON: CT ABD PELVIS W CONTRAST dated 08/19/2012 TECHNIQUE: Axial 3 mm thick images were obtained without oral or IV contrast. The [id number] spans the entirety of the system including uppermost abdomen and lung bases. All CT scans are performed using dose optimization technique as appropriate and may include automated exposure control or mA/KV adjustment according to patient size. FINDINGS: No dense consolidations seen in the lung base. However, there is patchy alveolar opacification in the left lower lobe and minimally in the lingula. No pneumothorax or pleural effusion. No cardiomegaly or pericardial effusion. No hydronephrosis is present and no obstructing ureteral calculi. A punctate 3 mm calcification is present lower pole of the left kidney. No perinephric stranding. No suspicious renal masses. Isodense masses and pyelonephritis are not excluded on a stone protocol CT scan. No significant adrenal finding. No urinary bladder suspicious finding. Imaged portions of the liver, spleen and pancreas show no suspicious findings on non-contrast imaging. Cholecystectomy clips are present. No biliary tree dilatation. Postsurgical gastric changes are present. Fluid filled gastric lumen noted with no wall thickening or mass. No gastric wall edema. Small bowel loops are unremarkable. Small bowel anastomosis without acute findings. Moderate stool volume present in the colon. No hernia, mass or bulky lymphadenopathy noted. No free air, free fluid or inflammatory stranding. Disc and bone degenerative changes are present. No acute bone finding. IMPRESSION: No hydronephrosis, obstructing calculus or acute finding. Isodense masses and pyelonephritis are not excluded on stone protocol technique. Left lower lobe parenchymal opacification is present suspicious for early pneumonia. Correlation is needed to determine if the patient's left flank symptoms may be due to a left base pneumonia. Conclusions/Impression: MIGUEL likely due to hypovolemia CKD III with proteinuria -No NSAIDs -Continue IVF Hyponatremia -Continue IVF Hypokalemia -Continue IVF -Kayexalate as ordered Acidosis -Start oral bicarb -Continue IVF with bicarb HTN with CKD -Hold antihypertensives at this time DM II with CKD & Polyneuropathy -RISS -Continue Gabapentin Anemia in chronic illness -Monitor H&H Case reviewed with Dr. Jones Thank you kindly for the consultation.
[2021-09-11] MEDS ORDERED: DEXTROSE 10%-WATER 500 ML IV ONE (10:10)
[2021-09-11] MEDS: TIZANIDINE 4 MG TABLET PO SCH ×3 (10:50→21:00)
[2021-09-11] MEDS ORDERED: FLUOXETINE 20 MG CAP PO SCH (10:51)
[2021-09-11] MEDS: GABAPENTIN 300 MG CAP PO SCH ×2 (10:52→21:00)
[2021-09-11] MEDS ORDERED: GABAPENTIN 300 MG CAP ONE ×2 (11:33→20:53)
--- NOTE | 2021-09-11 15:44 | P.PN ---
Subjective Date of Service: 09/11/21 Chief Complaint: Acute renal failure, pneumonia Subjective: No new changes This morning, he appears to have significant chills and anxiety. His vital signs are stable, but he appears to be withdrawing from his home medications. He reports that he has not taken his medications in two days: tizanidine 6 mg QID, fluoxetine 40 mg daily, Sapello-10 q6h, doxepin 75 mg daily, morphine 12.5 mg daily, and gabapentin 800 mg q6h. Will restart his medications at lower dose given his acute renal failure. Review of Systems 10-point ROS is otherwise unremarkable General: Chills Gastrointestinal: Constipation Musculoskeletal: Other (generalized pain/discomfort) Physical Examination - Vital Signs Blood Pressure: 126/74 Pulse: 66 Respirations: 17 Pulse Ox (%): 97 - Physical Exam General: Alert, Oriented x3, Mild distress HEENT: Atraumatic, Mucous membr. moist/pink, EOMI, Sclerae nonicteric Neck: Supple, JVD not distended Respiratory: Diminished (LLL field) Cardiovascular: No edema, Regular rate/rhythm, Normal S1 S2, No gallops, No rubs, No murmurs Gastrointestinal: Normal bowel sounds, Soft and benign, Non-distended, No tenderness, No rebound, No guarding Musculoskeletal: No clubbing Integumentary: No rashes Neurological: Normal speech, Normal affect - Studies Laboratory Data (last 24 hrs) 09/10/21 15:25: Sodium 131 L, Potassium 5.8 H*, BUN 89 H, Creatinine 5.53 H*, Glucose 165 H 09/10/21 15:25: WBC 14.0 H, Hgb 11.9 L, Hct 36.7 L, Plt Count 236 Medications List Reviewed: Yes Assessment And Plan - Plan # KDIGO Stage III Acute Kidney Injury with Hyperkalemia - Nephrology consulted and spoke with Dr. Ferguson - recommendations appreciated - Creatinine = 5.53 -> 4.38 -> 4.02 (was 1.15 in 12/2020) - Urinalysis = 1+ blood, leukocyte esterase +, 1+protein - Renal ultrasound = "unremarkable renal sonogram." - CT abdomen/pelvis = "no hydronephrosis, obstructing calculus or acute finding. Isodense masses and pyelonephritis are not excluded on stone protocol technique. Left lower lobe parenchymal opacification is present suspicious for early pneumonia. Correlation is needed to determine if the patient's left flank symptoms may be due to a left base pneumonia. " - Monitor creatinine and urine output - Renally dose medications - Hold home metformin and hydrochlorothiazide # Left Lower Lobe Community Acquired Pneumonia Does not meet SIRS criteria. - Evaluation thus far: - CT chest= "patchy interstitial and alveolar opacities scattered in the left lower lobe and minimally in the posterior lingula of the left upper lobe. In the acute clinical setting a mild or early pneumonia would be most likely." - Management plan: - Ordered procalcitonin and urine Streptococcus and Legionella antigens - Ceftriaxone 1 g IV q24hr - Azithromycin 500 mg IV q24hr - Supplemental oxygen to maintain SpO2 > 92% - Incentive spirometry # Hyperglycemia in Type II Diabetes Mellitus - Hgb A1c = 6.5 % - Correction scale insulin - Metformin held in the setting of MIGUEL # Suspect Early Opioid Withdrawal - Will give his home medications at a reduced dose given decreased creatinine clearance # Hypertension Resume home meds once reconciled - MÓNICA-I/ARBs and diuretics will need to be held given MIGUEL # Subclinical Hyperthyroidism - TSH 0.138, Free T4 0.91 - Follow-up with PCP Larry Jones M.D. Discharge Plan: Home Plan to discharge in: Greater than 2 days
[2021-09-11] MEDS: HYDROCODONE/APAP 5/325 MG TAB PO PRN (18:22)
[2021-09-11] MEDS ORDERED: HYDROCODONE/APAP 5/325 MG TAB ONE (18:32)
[2021-09-11] MEDS ORDERED: AZITHROMYCIN IV 500 MG in NA CHLORIDE 0.9% 250 ML IVPB SCH (20:00)
[2021-09-11] MEDS ORDERED: CEFTRIAXONE 1000 MG/VIAL ONE (20:53)
[2021-09-11] MEDS ORDERED: AZITHROMYCIN 500 MG INJ IVPB ONE (20:53)
[2021-09-11] MEDS ORDERED: NA CHLORIDE 0.9% 250 ML ONE (20:54)
[2021-09-11] MEDS ORDERED: CEFTRIAXONE 1,000 MG in NA CHLORIDE 0.9% 50 ML IVPB SCH (21:00)
[2021-09-12] MEDS: HYDROCODONE/APAP 5/325 MG TAB PO PRN (00:43)
[2021-09-12 03:33] LABS: Absolute Lymphocytes (CBC) 1.4 K/uL (0.7-4.9); Hematocrit 32.5 % (39.6-49.0); Lymphocytes % 15.6 % (15.3-44.8); MCV 94.2 fL (80-100); MPV 8.2 fL (7.6-11.3); RBC Red Blood Cell Count 3.45 M/uL (4.33-5.43)
[2021-09-12 03:43] LABS: Albumin 3.4 g/dL (3.4-5.0); Bilirubin Total 0.4 mg/dL (0.2-1.0); Magnesium 2.2 mg/dL (1.8-2.4); Phosphorus 3.5 mg/dL (2.5-4.9); Potassium 3.6 mmol/L (3.5-5.1); Protein, Total 7.3 g/dL (6.4-8.2); Uric Acid 7.6 mg/dL (3.5-7.2)
[2021-09-12] MEDS: NACHLORIDE 0.45% 1,000 ML with NA BICARB 8.4% 75 MEQ IV SCH ×2 (05:30)
--- NOTE | 2021-09-12 07:59 | P.DS ---
Admission Date: 09/10/21 Discharge Date: 09/12/21 Disposition: ROUTINE DISCHARGE Discharge Condition: GOOD Reason for Admission: Acute renal failure, pneumonia Consultations: 1. Nephrology Hospital Course: DIAGNOSES: # KDIGO Stage III Acute Kidney Injury with Hyperkalemia # Left Lower Lobe Community Acquired Pneumonia # Hyperglycemia in Type II Diabetes Mellitus # Suspect Early Opioid Withdrawal # Hypertension # Subclinical Hyperthyroidism HOSPITAL COURSE: Mr. Rhett Ayers is a 45 year old male with a past medical history significant for type 2 diabetes mellitus and hypertension who was admitted to the [facility] on 09/10/2021 due to generalized weakness. Upon further evaluation, he was found to have a KDIGO stage III acute kidney injury complicated by hyperkalemia as well as a left lower lobe community- acquired pneumonia. He was admitted to the Medicine service and Nephrology was consulted. He was evaluated by Dr. Ferguson, who recommended IV hydration. Over the course of his hospitalization, his creatinine improved significantly and he was cleared for discharge by Nephrology with a close follow-up appointment. In regards to his pneumonia, he had minimal respiratory symptoms and maintained adequate SpO2 readings on room air. On 09/12/2021, he was seen on morning rounds and deemed medically stable for discharge. He was discharged with instructions to schedule follow-up appointments with his PCP in 3-5 days and with Nephrology (Dr. Ferguson) in 3-5 days. He was provided prescriptions for cefdinir and azithromycin. He was given the opportunity to ask questions and reported no further questions. Furthermore, all questions were answered to the best of my ability. Today, I personally spent 20 minutes with him, of which greater than 50% of the time was spent in patient education, counseling, and coordination of care as described above. - Physical Exam General: Alert, Oriented x3, Mild distress HEENT: Atraumatic, Mucous membr. moist/pink, EOMI, Sclerae nonicteric Neck: Supple, JVD not distended Respiratory: CTAB with diminished breath sounds in LLL field Cardiovascular: No edema, Regular rate/rhythm, Normal S1 S2, No gallops, No rubs, No murmurs Gastrointestinal: Normal bowel sounds, Soft and benign, Non-distended, No tenderness, No rebound, No guarding Musculoskeletal: No clubbing Integumentary: No rashes Neurological: Normal speech, Normal affect Vital Signs/Physical Exam: Temp Pulse Resp BP Pulse Ox 97.8 F 76 16 149/84 H 100 09/12/21 04:00 09/12/21 04:00 09/12/21 04:00 09/12/21 04:00 09/12/21 04:00 Laboratory Data at Discharge: WBC 8.8 K/uL (4.3-10.9) D 09/12/21 03:08 Hgb 10.8 g/dL (13.6-17.9) L 09/12/21 03:08 Hct 32.5 % (39.6-49.0) L 09/12/21 03:08 Plt Count 243 K/uL (152-406) 09/12/21 03:08 Sodium 140 mmol/L (136-145) 09/12/21 03:08 Potassium 3.6 mmol/L (3.5-5.1) 09/12/21 03:08 BUN 60 mg/dL (7-18) H D 09/12/21 03:08 Creatinine 2.18 mg/dL (0.55-1.3) H D 09/12/21 03:08 Glucose 153 mg/dL (74-106) H 09/12/21 03:08 Uric Acid 7.6 mg/dL (3.5-7.2) H D 09/12/21 03:08 Phosphorus 3.5 mg/dL (2.5-4.9) 09/12/21 03:08 Magnesium 2.2 mg/dL (1.8-2.4) D 09/12/21 03:08 Total Bilirubin 0.4 mg/dL (0.2-1.0) 09/12/21 03:08 AST 41 U/L (15-37) H 09/12/21 03:08 ALT 64 U/L (12-78) 09/12/21 03:08 Alkaline Phosphatase 138 U/L (45-117) H 09/12/21 03:08 Triglycerides 106 mg/dL (<150) 09/11/21 02:08 Cholesterol 93 mg/dL (<200) 09/11/21 02:08 HDL Cholesterol 52 mg/dL (40-60) 09/11/21 02:08 Cholesterol/HDL Ratio 1.79 09/11/21 02:08 Home Medications: Gabapentin [Neurontin] 800 mg PO Q8H 04/02/19 Multivitamin [Daily Multiple Vitamin] 1 each PO DAILY 04/02/19 Tizanidine HCl [Zanaflex] 6 mg PO Q6H 04/02/19 Hydrocodone 7.5/APAP 325 [[place] 7.5/325 mg*] 1 tab PO Q6H PRN 08/18/19 Amlodipine [Norvasc*] 5 mg PO DAILY 12/20/20 Fluoxetine HCl [Prozac] 1 cap PO DAILY 12/20/20 Morphine *Extended Release* [MS Contin*] 1 tab PO DAILY 12/20/20 Azithromycin Tab [Zithromax*] 250 mg PO ZPAK #1 indira 09/12/21 Cefdinir [Cefdinir*] 300 mg PO BID #10 cap 09/12/21 New Medications: Cefdinir [Cefdinir*] 300 mg PO BID #10 cap Azithromycin Tab [Zithromax*] 250 mg PO ZPAK #1 indira Physician Discharge Instructions: 1. Please schedule a follow-up with your PCP in 3-5 days 2. Please schedule a follow-up with Nephrology (Dr. Ferguson) in 5-7 days Diet: Renal Activity: Ad ethan Followup: Erma Riojas, LAKESHIA [Primary Care Provider] - Michael Ferguson DO [ACTIVE - CAN ADMIT] - Time spent managing pt's care (in minutes): 20
[2021-09-12 09:22] VITALS: TEMP 97.9
[2021-09-12 09:33] VITALS: BP 101/65; O2SAT 93
--- NOTE | 2021-09-12 15:11 | EKG ---
Test Date: 2021-09-10 Test Time: 17:18:04 Asp Developer: MILLY MEASUREMENT RESULTS: Intervals: Rate: 70 NE: 200 QRSD: 96 QT: 382 QTc: 412 [place]: P: 67 NE: 200 QRS: 50 T: 63 INTERPRETIVE STATEMENTS: Normal sinus rhythm Normal ECG Compared to ECG 12/20/2020 10:27:03 No significant changes Electronically Signed On 09-12-21 15:08:49 CDT by Trell Erwin
== END 2021-09-12 08:55 | disposition home or self-care (01) | DRG 682 ==
LOC: ER 15:09 → ERHOLD 19:15 → 2ND 21:38 → ERHOLD 22:12
PROVIDERS: ADMIT Internal Medicine; ATTEND Internal Medicine
DX: N17.9 Acute kidney failure, unspecified (principal); J18.9 Pneumonia, unspecified organism; F11.23 Opioid dependence with withdrawal; E87.2 Acidosis; E87.1 Hypo-osmolality and hyponatremia; E87.5 Hyperkalemia; E11.65 Type 2 diabetes mellitus with hyperglycemia; E05.80 Other thyrotoxicosis without thyrotoxic crisis or storm; I12.9 Hypertensive chronic kidney disease with stage 1 through stage 4 chronic kidney disease, or unspecified chronic kidney disease; E11.22 Type 2 diabetes mellitus with diabetic chronic kidney disease; N18.30 Chronic kidney disease, stage 3 unspecified; Z98.84 Bariatric surgery status; Z20.822 Contact with and (suspected) exposure to COVID-19
CPT/HCPCS: 36415; 71250; 74176; 76377; 76770; 80048; 80053; 80061; 81003; 82550; 82947; 83036; 83605; 83735; 84100; 84132; 84145; 84439; 84443; 84484; 84550; 85025; 86704; 86706; 87040; 87340; 87449; 87811; 87899; 93005; 96365; 96367; 96375; 99285; J0456; J0610; J1644; J1815; J1940; J2405; J7030; J7050

== ENCOUNTER 2021-11-10 17:24 | Emergency (ER) | payer OTHER ==
--- OUTSIDE RECORDS SUMMARY | 2021-11-10 17:32 | XMS REPORT | Continuity of Care Document ---
:1975 Author Organization [facility] t Address [facility] [place] [address] Care Team Providers Name Role Phone Caroline Valle Primary Care Physician CAROLINE VALLE Attending Clinician Unavailable Almas Boss MD Attending Clinician ALMAS BOSS Attending Clinician Unavailable MIRA BEDOYA Attending Clinician Unavailable LAB90 Attending Clinician Unavailable Evie Gusman MD Attending Clinician [phone] EVIE GUSMAN Attending Clinician Unavailable DIANNA JOHNSON Attending Clinician Unavailable SHAHEEN CACERES Attending Clinician Unavailable Neftali Parker MD Attending Clinician RYDER NATHAN Attending Clinician Unavailable JASON TRAYLOR Attending Clinician Unavailable Dianna Johnson MD Attending Clinician MARY ESPANA Attending Clinician Unavailable LAB47 Attending Clinician Unavailable Diego Martin MD Attending Clinician AMARJIT SUN Attending Clinician Unavailable NEY CARRILLO Attending Clinician Unavailable Ryder Nathan MD Attending Clinician Leonard ASHER-CCaroline Attending Clinician MD GEOVANNI Attending Clinician Unavailable CARMENCITA WASHINGTON Attending Clinician Unavailable LAB45 Attending Clinician Unavailable Amarjit Sun MD Attending Clinician Jack Traylor Attending Clinician Unavailable JOSE GUEVARA Attending Clinician Unavailable Lukasz Duran MD Attending Clinician MAYA LANGLEY Attending Clinician Unavailable Caroline Valle Admitting Clinician Unavailable MAYA LANGLEY Admitting Clinician Unavailable Payers Payer Name Policy Type Policy Number Effective Date Expiration Date Kalani beltran [facility] 2 [id number] 2021 [facility] 00:00:00 ADMINISTRATORS BCBS 2 [id number] 2021 00:00:00 Problems Condition Condition Condition Status Onset Resolution Last Treating Co mments Source Name Details Category Date Date Treatment Clinician Date 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, ulcer, 00:00: [place] left left 00 Medical Branch Symptomati Symptomati Disease Active U nivers c c - ity of bradycardi bradycardi [place] 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 - ity of kidney kidney 00:00: [place] disease disease 00 Medical Branch Major Major Disease Active [place] 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 disorder disorder 00:00: 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 00 remission remission Iron Iron Disease Active [place] deficiency deficiency 03-06 [place] anemia anemia 00:00: secondary secondary 00 to to inadequate inadequate dietary dietary iron iron intake intake Intestinal Intestinal Disease Active K jennie malabsorpt malabsorpt 03-06 Se [place] ion ion 00:00: 00 Chronic [...] History of History of Disease Active K parammargaret torn torn 03-06 [place] meniscus meniscus 00:00: [...] - 03-06 [place] Controlled Controlled 00:00: 00 Elevated Elevated Disease Active 2020-02 Unive rs brain brain 2-06 ity of natriureti nat[place]ureti [place] c peptide c peptide 00 Medi damien (BNP) (BNP) Branch level level Anemia Anemia Disease Active 2020-02 Univers 2-06 ity of 00:00: [place] [address] Medical Branch MIGUEL (acute MIGUEL (acute Disease Active 2020-02 U dale kidney kidney 2-06 ity of injury) injury) 00:00: [place] [address] Medical Branch Obesity Obesity Disease Active 2020-02 Univers (BMI (BMI 2-06 ity of 30-39.9) 30-39.9) 00:00: [place] [address] Medical Branch Primary Primary Disease Active 2020-02 Univers hypertensi hypertensi 2-06 it y of on on 00:00: [place] [address] Medical Branch Type 2 Type 2 Disease Active 2020-02 Univers diabetes diabetes 2-06 ity of mellitus mellitus 00:00: [place] without without 00 Medical complicati complicati Br anch on, on, without without long-term long-term current current use of use of insulin insulin Hyperkalem Hyperkalem Disease Active 2020-02 U dale ia ia 2-05 ity of 00:00: [place] [address] Medical [place] Allergies, Adverse Reactions, Alerts Allergy Allergy Status Severity Reaction(s) Onset Inactive Treating Comm ents Source Name Type Date Date Clinician No Known DA Active U [facility] Drug 4-27 [place] Intolera 00:00: [place] [address] Medical [place] NO KNOWN Drug Active [facility] ALLERGIE Class ity of [facility] Social History Social Habit Start Date Stop Date Quantity Comments Source Exposure to 2021-09-28 2021-10-08 Not sure [facility] SARS-CoV-2 00:00:00 09:17:00 [facility] (event) Branch Alcohol intake 2021-06-25 2021-06-25 Ex-drinker [place] antonio 00:00:00 00:00:00 (finding) Tobacco use and 2021-06-04 2021-06-04 Smokeless tobacco Ez Brady exposure 00:00:00 00:00:00 non-user Sex Ass[birth year] At [birth year] [facility] 00:00:00 00:00:00 Smoking Status Start Date Stop Date Source Tobacco smoking consumption unknown [facility] Never smoked tobacco [place] Medications Ordered Filled Start Stop Current Ordering Indication Dosage Frequency Signature Comments Components Source Medication Medication Date Date Medication? Clinician (SIG) Name Name PREDNISOLON Yes [id number] PLACE ONE Univers E ACETATE 1 10-21 [id number] (1) DROP it y of % 00:00: INTO LEFT [place] ophthalmic 00 EYE FOUR Medic al suspension TIMES Branch drops DAILY. MOXIFLOXACI 2021-0 Yes [id number] INSTILL Univers N 0.5 % 09-30 9102 ONE (1) ity of ophthalmic 00:00: [place] drops 00 LEFT EYE Medical FOUR TIMES Branch DAILY. MOXIFLOXACI 2021-0 Yes [id number] INSTILL Univers N 0.5 % 09-30 9102 ONE (1) ity of ophthalmic 00:00: [place]OP [place] drops 00 LEFT EYE Medical FOUR TIMES Branch DAILY. prednisoLON 2021-0 Yes [id number] 1[drp] Place 1 Univers E acetate - [id number] Drop in ity o f (PRED 00:00: left eye 4 [place] FORTE) 1 % 00 (four) Medical ophthalmic times Branch suspension daily. drops prednisoLON 2021-0 2022- No [id number] 1[drp] Place 1 Univers E acetate 8-10-21 [id number] Drop in ity of (PRED 00:00: 00:00 left eye 4 [place] FORTE) 1 % 00 :00 (four) Medical ophthalmic times Branch suspension daily. drops ketorolac 2021-0 Yes [id number] 1[drp] Place 1 Univers 0.5 % 6-07 9102 Drop in ity of ophthalmic 00:00: left eye 4 [place] solution 00 (four) Medical times Branch daily. ketorolac 2021-0 Yes [id number] 1[drp] Place 1 Univers 0.5 % 6-07 9102 Drop in ity of ophthalmic 00:00: left eye 4 [place] solution 00 (four) Medical times Branch daily. hydroCHLORO 2021-0 Yes [id number] 25mg Take 2 Univers thiazide 5-29 9102 capsules ity of 12.5 mg 00:00: by mouth [place] capsule 00 daily. Medical Branch hydroCHLORO 2021-0 Yes [id number] 25mg Take 2 Univers thiazide 5-29 9102 capsules ity of 12.5 mg 00:00: by mouth [place] capsule 00 daily. Medical Branch tiZANidine 2021-0 Yes 6mg Take 6 mg Un luz marina 2 mg 5-28 by mouth ity of capsule 17:49: every 6 [place] 34 (six) Medical hours. Branch FLUoxetine Yes 40mg Take 40 mg U nivers 40 mg 5-28 by mouth ity of capsule 17:49: daily. [place] [address] Medical Branch naloxegoL 0 Yes 25mg Take 25 mg Un luz marina (MOVANTIK) 5-28 by mouth ity o f 25 mg Tab 17:49: daily. [place] [address] Medical Branch ferrous 0 Yes 325mg Take 325 Unive rs sulfate 325 5-28 mg by ity of mg (65 mg 17:49: mouth [place] iron) 34 every Medical tablet other day. Branch HYDROcodone 0 Yes 1{tbl} Take 1 Un luz marina -acetaminop 5-28 tablet by ity of hen (NORCO) 17:49: mouth [place] 10-325 mg 34 every 6 Medical tablet (six) Branch hours as needed for Pain (scale 7-10). doxepin HCl Yes 75mg Take 75 mg Univers (DOXEPIN 5-28 by mouth ity of ORAL) 17:49: every [place] [address] evening. Medical Branch morphine ER Yes 15mg Take 15 mg Univers 15 mg 12 hr 5-28 by mouth ity of tablet 17:49: daily. [place] [address] Medical Branch docusate 0 Yes 100mg Take 100 Univ ers 100 mg 5-28 mg by ity of capsule 17:49: mouth [place] 34 daily. Medical Branch nystatin Yes Apply to Unive rs 100,000 5-28 area(s) 2 ity of unit/gram 17:49: (two) [place] cream 34 times Medical daily. Branch ondansetron Yes 4mg Take 4 mg U nivers 4 mg 5-28 by mouth ity of disintegrat 17:49: every 8 Sukhjinder as ing tablet 34 (eight) Medica l hours as Branch needed for Nausea and Vomiting (N/V). tiZANidine 0 Yes 6mg Take 6 mg Un luz marina 2 mg 5-28 by mouth ity of capsule 17:49: every 6 [place] [address] (six) Medical hours. Branch FLUoxetine Yes 40mg Take 40 mg U nivers 40 mg 5-28 by mouth ity of capsule 17:49: daily. [place] [address] Medical Branch naloxegoL 0 Yes 25mg Take 25 mg Un luz marina (MOVANTIK) 5-28 by mouth ity o f 25 mg Tab 17:49: daily. [place] [address] Medical Branch ferrous Yes 325mg Take 325 Unive [...] by mouth ity of ORAL) 17:49: every [place] 34 evening. Medical Branch morphine ER Yes 15mg Take 15 mg Univers 15 mg 12 hr 5-28 by mouth ity of tablet 17:49: daily. [place] [address] Medical Branch docusate Yes 100mg Take 100 Univ ers 100 mg 5-28 mg by ity of capsule 17:49: mouth [place] 34 daily. Medical Branch nystatin Yes Apply to Unive rs 100,000 5-28 area(s) 2 ity of unit/gram 17:49: (two) [place] cream 34 times Medical daily. Branch ondansetron Yes 4mg Take 4 mg U nivers 4 mg 5-28 by mouth ity of disintegrat 17:49: every 8 Sukhjinder as ing tablet 34 (eight) Medica l hours as Branch needed for Nausea and Vomiting (N/V). natamycin 5 Yes [id number] 1[drp] Place 1 Univers % 5-28 9102 Drop in ity of ophthalmic 00:00: left eye Sukhjinder as suspension 00 every 2 Medica l drops (two) Branch hours. erythromyci Yes [id number] .5[in_u Place 0.5 Univers n 5 mg/gram 5-28 9102 s] Inches in ity of (0.5 %) 00:00: left eye [place] ophthalmic 00 at Medical ointment bedtime. Branch hydrALAZINE Yes [id number] 5mg Take 0.5 Univers 10 mg 5-28 9102 tablets by ity of tablet 00:00: mouth 2 [place] (two) Medical times Branch daily. natamycin 5 2021-0 Yes [id number] 1[drp] Place 1 Univers % 5-28 9102 Drop in ity of ophthalmic 00:00: left eye Sukhjinder as suspension 00 every 2 Medica l drops (two) Branch hours. erythromyci Yes [id number] .5[in_u Place 0.5 Univers n 5 mg/gram 5-28 9102 s] Inches in ity of (0.5 %) 00:00: left eye [place] ophthalmic 00 at Medical ointment bedtime. Branch hydrALAZINE Yes [id number] 5mg Take 0.5 Univers 10 mg 5-28 9102 tablets by ity of tablet 00:00: mouth 2 [place] (two) Medical times [place] daily. HYDROcodone 0 Yes [id number] Take by [place] -Acetaminop 5-18 mouth Seybold hen 10-325 11:11: MG oral 20 Tablet Metoprolol 0 Yes [id number] 50mg TAKE 1 K elsey Tartrate 50 5-09 TABLET (50 Se ybold MG oral 00:00: MG TOTAL) Tablet 00 BY MOUTH IN THE MORNING AND 1 TABLET (50 MG TOTAL) IN THE EVENING. hydroCHLORO 2021-0 Yes [id number] 25mg TAKE 1 [place] thiazide 25 5-09 TABLET (25 Se ybold MG oral 00:00: MG TOTAL) Tablet 00 BY MOUTH DAILY. Metoprolol 0 Yes [id number] 50mg TAKE 1 K elsey Tartrate 50 5-09 TABLET (50 Se ybold MG oral 00:00: MG TOTAL) Tablet 00 BY MOUTH IN THE MORNING AND 1 TABLET (50 MG TOTAL) IN THE EVENING. hydroCHLORO 2021-0 Yes [id number] 25mg TAKE 1 [place] thiazide 25 5-09 TABLET (25 Se ybold MG oral 00:00: MG TOTAL) Tablet 00 BY MOUTH DAILY. Nystatin 2021-0 Yes [id number] APPLY 1 [place] [id number] 4-28 APPLICATIO Seybold UNIT/GM 00:00: N apply 00 TOPICALLY externally 3 TIMES Powder DAILY. Nystatin 2021-0 Yes [id number] APPLY 1 [place] [id number] 4-28 APPLICATIO Seybold UNIT/GM 00:00: N apply 00 TOPICALLY externally 3 TIMES Powder DAILY. HYDROcodone Yes [id number] Take by [place] -Acetaminop 4-15 mouth Seybold hen 10-325 11:36: MG oral 16 Tablet HYDROcodone 2021-0 Yes [id number] Take by [place] -Acetaminop 4-15 mouth Seybold [...] before largest meal of the day Methylpredn 2021-2021- No [id number] 40mg [place] isolone 05-16 [place] Acetate 16:45: 16:37 (Depo-Medro 00 :00 l) 40 mg/ml - Physician Administere d (J1030) Methylpredn 2021-0 2021- No [id number] 40mg 40 mg, [place] isolone -08 05-16 Physician Seybol d Acetate 16:45: 16:37 Administer (Depo-Medro 00 :00 ed, ONCE, l) 40 mg/ml 1 dose, On - Physician Wed05/16/21 Administere at 1145 d (J1030) HYDROcodone 2021-0 Yes [id number] Take by [place] -Acetaminop 4-08 mouth Seybold hen 10-325 10:52: MG oral 25 Tablet HYDROcodone 2021-0 Yes [id number] Take by [place] -Acetaminop 3-29 mouth Seybold hen 10-325 09:51: MG oral 33 Tablet hydroCHLORO 2021-0 Yes [id number] 25mg Take 1 [place] thiazide 25 3-29 tablet (25 Se ybold MG oral 00:00: mg total) Tablet 00 by mouth daily Nystatin Yes [id number] Apply 1 [place] [id number] 3-29 applicatio Seybold UNIT/GM 00:00: n apply 00 topically externally 3 times Powder daily Ondansetron 2021-0 Yes [id number] 4mg Q.[id number] Take 1 [place] (Zofran 3-29 [id number] tablet (4 S eybold ODT) 4 MG 00:00: 3D mg total) oral TABLET 00 by mouth DISPERSIBLE every 8 hours as needed for nausea hydroCHLORO 2-0 Yes [id number] 25mg Take 1 [place] thiazide 25 3-29 tablet (25 Se ybold MG oral 00:00: mg total) Tablet 00 by mouth daily Nystatin 2021-0 Yes [id number] Apply 1 [place] [id number] 3-29 applicatio Seybold UNIT/GM 00:00: n apply 00 topically externally 3 times Powder daily Ondansetron 2021-0 Yes [id number] 4mg Q.[id number] Take 1 [place] (Zofran 3-29 [id number] tablet (4 S eybold ODT) 4 MG 00:00: 3D mg total) oral TABLET 00 by mouth DISPERSIBLE every 8 hours as needed for nausea hydroCHLORO 2021-0 Yes [id number] 25mg Take 1 [place] thiazide 25 3-29 tablet (25 Se ybold MG oral 00:00: mg total) Tablet 00 by mouth daily Nystatin 2021-0 Yes [id number] Apply 1 [place] 761971 3- applicatio Seybold UNIT/GM 00:00: n apply 00 topically externally 3 times Powder daily Ondansetron 2-0 Yes [id number] 4mg Q.[id number] Take 1 [place] (Zofran 3-29 [id number] tablet (4 S eybold ODT) 4 MG 00:00: 3D mg total) oral TABLET 00 by mouth DISPERSIBLE every 8 hours as needed for nausea Ondansetron 2-0 Yes [id number] 4mg Q.[id number] Take 1 [place] (Zofran 3-29 [id number] tablet (4 S eybold ODT) 4 MG 00:00: 3D mg total) oral TABLET 00 by mouth DISPERSIBLE every 8 hours as needed for nausea Ondansetron 2022-0 Yes [id number] 4mg Q.[id number] Take 1 [place] (Zofran 3-29 [id number] tablet (4 S eybold ODT) 4 MG 00:00: 3D mg total) oral TABLET 00 by mouth DISPERSIBLE every 8 hours as needed for nausea HYDROcodone Yes [id number] Take by [place] -Acetaminop 3-25 mouth Seybold hen 10-325 10:27: MG oral 08 Tablet Pantoprazol 2021-0 Yes [place] e Sodium 40 3-25 Seybold MG oral 00:00: Tablet 00 Delayed Response Pantoprazol 0 Yes [place] e Sodium 40 3-25 Seybold MG oral 00:00: Tablet 00 Delayed Response Pantoprazol 0 Yes [place] e Sodium 40 3-25 Seybold MG oral 00:00: Tablet 00 Delayed Response Pantoprazol 0 Yes [place] e Sodium 40 3-25 Seybold MG oral 00:00: Tablet 00 Delayed Response Pantoprazol 0 Yes [place] e Sodium 40 3-25 Seybold MG oral 00:00: Tablet 00 Delayed Response Cosyntropin 0 2021- No [id number] .25mg [place] (CORTROSYN) 04-30 Seybold 0.25 mg 14:15: 14:21 00 :00 Cosyntropin 2021-0 2021- No [id number] .25mg 0.25 mg, [place] (CORTROSYN) 04-30- intramuscu S eybold 0.25 mg 14:15: 14:21 lar, ONCE, 00 :00 1 dose, On Wed04/30/21 at 0915 Tizanidine 2021-0 2021- No [id number] every 6 [place] HCl 2 MG -30 04-23 (six) Seybold oral 08:46: 00:00 hours Capsule 51 :00 HYDROcodone 2021-0 Yes [id number] Take by [place] -Acetaminop 3-23 mouth Seybold hen 10-325 08:46: MG oral 49 Tablet Sodium 0 Yes [place] Bicarbonate 3-20 Seybold 325 MG oral 00:00: Tablet 00 Sodium 2021-0 Yes [place] Bicarbonate 3-20 Seybold 325 MG oral 00:00: Tablet 00 Sodium 2021-0 202- No [place] Bicarbonate 3-20 03-29 Seybold 325 MG oral 00:00: 00:00 Tablet 00 :00 Continuous Yes Use daily [place] Blood Gluc 3-15 to check Seybo ld Transmit 00:00: blood 3-4 (Dexcom G6 00 times and Transmitter as needed. ) does not apply Misc Continuous 0 Yes Use daily [place] Blood Gluc 3-15 to check Seybo ld Transmit 00:00: blood 3-4 (Dexcom G6 00 times and Transmitter as needed. ) does not apply Misc Continuous 0 Yes Use daily Ke l[place] Blood Gluc [...] ) does not apply Misc Metoprolol Yes [id number] 50mg Take 1 K elsey Tartrate 50 3-08 tablet (50 Se ybold MG oral 00:00: mg total) Tablet 00 by mouth in the morning and 1 tablet (50 mg total) in the evening. Docusate Yes [id number] 100mg Take 100 [place] Sodium 100 3-08 mg by Seybold MG oral 00:00: mouth 2 Tablet 00 times daily Metoprolol Yes [id number] 50mg Take 1 K elsey Tartrate 50 3-08 tablet (50 Se ybold MG oral 00:00: mg total) Tablet 00 by mouth in the morning and 1 tablet (50 mg total) in the evening. Docusate 0 Yes [id number] 100mg Take 100 [place] Sodium 100 3-08 mg by Seybold MG oral 00:00: mouth 2 Tablet 00 times daily Metoprolol 2021-0 Yes [id number] 50mg Take 1 K elsey Tartrate 50 3-08 tablet (50 Se ybold MG oral 00:00: mg total) Tablet 00 by mouth in the morning and 1 tablet (50 mg total) in the evening. Docusate 0 Yes [id number] 100mg Take 100 [place] Sodium 100 3-08 mg by Seybold MG oral 00:00: mouth 2 Tablet 00 times daily Metoprolol 0 Yes [id number] 50mg Take 1 K elsey Tartrate 50 3-08 tablet (50 Se ybold MG oral 00:00: mg total) Tablet 00 by mouth in the morning and 1 tablet (50 mg total) in the evening. Docusate 0 Yes [id number] 100mg Take 100 [place] Sodium 100 3-08 mg by Seybold MG oral 00:00: mouth 2 Tablet 00 times daily Metoprolol 0 Yes [id number] 50mg Take 1 K elsey Tartrate 50 3-08 tablet (50 Se ybold MG oral 00:00: mg total) Tablet 00 by mouth in the morning and 1 tablet (50 mg total) in the evening. Docusate Yes [id number] 100mg Take 100 [place] Sodium 100 3-08 mg by Seybold MG oral 00:00: mouth 2 Tablet 00 times daily Docusate 2021-0 Yes [id number] 100mg Take 100 [place] Sodium 100 3-08 mg by Seybold MG oral 00:00: mouth 2 Tablet 00 times daily Docusate 2021-0 Yes [id number] 100mg Take 100 [place] Sodium 100 3-08 mg by Seybold MG oral 00:00: mouth 2 Tablet 00 times daily Tizanidine 2021-0 Yes [id number] every 6 [place] HCl 2-28 (six) Seybold (Zanaflex) 08:53: hours 2 MG oral 51 Capsule HYDROcodone 2021-0 Yes [id number] Take by [place] -Acetaminop 2-28 mouth Seybold hen 10-325 08:53: MG oral 32 Tablet Fluoxetine 0 2021- No [id number] Take by [place] HCl 20 MG 2-24 02-24 mouth 2 Seybol d oral 15:04: 00:00 times Capsule 25 :00 daily Metformin 2021- No [id number] 1000mg Take 1,000 [place] HCl 1000 MG 2-23 02-23 mg by Seybol d oral Tablet 10:44: 00:00 mouth 42 :00 daily Continuous Yes [id number] Check K elsey Blood Gluc 2-23 Seybold Sensor 00:00: (Dexcom G6 00 Sensor) does not apply Misc Continuous Yes [id number] Check K elsey Blood Gluc 2-23 sugar 4 Seybol d [employer] 00:00: times (Dexcom G4 00 daily and [place] as needed Rcv/Share) does not apply Device Continuous Yes [id number] Check K elsey Blood Gluc 2-23 Seybold Sensor 00:00: (Dexcom G6 00 Sensor) does not apply Misc Continuous Yes [id number] Check K elsey Blood Gluc 2-23 sugar 4 Seybol d [employer] Manager 00:00: times (Dexcom G4 00 daily and [place] as needed Rcv/Share) does not apply Device Continuous 0 Yes [id number] Check K elsey Blood Gluc 2-23 Seybold Sensor 00:00: (Dexcom G6 00 Sensor) does not apply Misc Continuous 2021-0 Yes [id number] Check K elsey Blood Gluc 2-23 sugar 4 Seybol d [employer] 00:00: times (Dexcom G4 00 daily and [place] as needed Rcv/Share) does not apply Device Continuous 0 Yes [id number] Check K elsey Blood Gluc 2-23 Seybold Sensor 00:00: (Dexcom G6 00 Sensor) does not apply Misc Continuous 2021-0 Yes [id number] Check K elsey Blood Gluc 2-23 sugar 4 Seybol d [employer] 00:00: times (Dexcom G4 00 daily and [place] as needed Rcv/Share) does not apply Device Continuous 2021-0 Yes [id number] Check K elsey Blood Gluc 2-23 Seybold Sensor 00:00: (Dexcom G6 00 Sensor) does not apply Misc Continuous 2021-0 Yes [id number] Check K elsey Blood Gluc 2-23 sugar 4 Seybol d [employer] 00:00: times (Dexcom G4 00 daily and [place] as needed Rcv/Share) does not apply Device Continuous 2021-0 Yes [id number] Check K elsey Blood Gluc 2-23 Seybold Sensor 00:00: (Dexcom G6 00 Sensor) does not apply Misc Continuous 2021-0 Yes [id number] Check K elsey Blood Gluc 2-23 sugar 4 Seybol d [employer] 00:00: times (Dexcom G4 00 daily and [place] as needed Rcv/Share) does not apply Device Continuous 2021-0 Yes [id number] Check K elsey Blood Gluc 2-23 Seybold Sensor 00:00: (Dexcom G6 00 Sensor) does not apply Misc Continuous 2021-0 Yes [id number] Check K elsey Blood Gluc 2-23 sugar 4 Seybol d [employer] 00:00: times (Dexcom G4 00 daily and [place] as needed Rcv/Share) does not apply Device Continuous 2021-0 Yes [id number] Check K elsey Blood Gluc 2-23 Seybold Sensor 00:00: (Dexcom G6 00 Sensor) does not apply Misc Continuous 2021-0 Yes [id number] Check K elsey Blood Gluc 2-23 sugar 4 Seybol d [employer] 00:00: times (Dexcom G4 00 daily and [place] as needed Rcv/Share) does not apply Device Continuous 2021-0 Yes [id number] Check K elsey Blood Gluc 2-23 Seybold Sensor 00:00: (Dexcom G6 00 Sensor) does not apply Misc Continuous 2021-0 Yes [id number] Check K elsey Blood Gluc 2-23 sugar 4 Seybol d [employer] Manager 00:00: times (Dexcom G4 00 daily and [place] as needed Rcv/Share) does not apply Device Docusate 2021-0 Yes [place] Sodium 100 2-22 Seybold MG oral 00:00: Capsule 00 Docusate 2021-0 Yes [place] Sodium 100 2-22 Seybold MG oral 00:00: Capsule 00 Docusate 2021-0 2022- No [place] Sodium 100 2-22 03-23 Seybold MG oral 00:00: 00:00 Capsule 00 :00 Lisinopril 2021-0 2021- No [place] 40 MG oral 2-22 02-24 Seybold Tablet 00:00: 00:00 00 :00 Tamsulosin [...] 00:00: mouth Capsule 00 daily Amlodipine 2021-0 2- No 10mg Take 10 mg [place] Besylate 10 -18 - by mouth Sey bold MG oral 00:00: 00:00 daily Tablet 00 :00 Metoprolol 2021-0 Yes [id number] TAKE 1 K elsey Tartrate 50 2-17 TABLET BY Sey bold MG oral 00:00: MOUTH 2 Tablet 00 TIMES DAILY Tizanidine 2021-0 Yes TAKE 3 Kelse y HCl 2 MG 2-17 TABLETS BY Seybo ld oral Tablet 00:00: MOUTH 00 EVERY 6 HOURS Metoprolol 2021-0 Yes [id number] TAKE 1 K elsey Tartrate 50 2-17 [...] 00:00: MOUTH 00 EVERY 6 HOURS Fluoxetine 2-0 Yes 40mg Take 40 mg K elsey HCl 40 MG 2-11 by mouth Seybol d oral 00:00: daily Capsule Fluoxetine Yes 40mg Take 40 mg K elsey HCl 40 MG 2-11 by mouth Seybol d oral 00:00: daily Capsule Fluoxetine Yes 40mg Take 40 mg K elsey HCl 40 MG 2-11 by mouth Seybol d oral 00:00: daily Capsule Fluoxetine Yes 40mg Take 40 mg K elsey HCl 40 MG 2-11 by mouth Seybol d oral 00:00: daily Capsule Fluoxetine Yes 40mg Take 40 mg K elsey HCl 40 MG 2-11 by mouth Seybol d oral 00:00: daily Capsule Fluoxetine Yes 40mg Take 40 mg K elsey HCl 40 MG 2-11 by mouth Seybol d oral 00:00: daily Capsule Fluoxetine Yes 40mg Take 40 mg K elsey HCl 40 MG 2-11 by mouth Seybol d oral 00:00: daily Capsule Fluoxetine Yes 40mg Take 40 mg K elsey HCl 40 MG 2-11 by mouth Seybol d oral 00:00: daily Capsule Fluoxetine Yes 40mg Take 40 mg K elsey HCl 40 MG 2-11 by mouth Seybol d oral 00:00: daily Capsule Doxepin HCl Yes TAKE 1 Wanda ey 75 MG oral 03-10 CAPSULE Seybol d Capsule 00:00: (75 MG) BY 00 MOUTH DAILY AT BEDTIME Doxepin HCl Yes TAKE 1 Wanda ey 75 MG oral 03-10 CAPSULE Seybol d Capsule 00:00: (75 MG) BY 00 MOUTH DAILY AT BEDTIME Doxepin HCl Yes TAKE 1 Wanda ey 75 MG oral -31 CAPSULE Seybol d Capsule 00:00: (75 MG) BY 00 MOUTH DAILY AT BEDTIME Doxepin HCl 2021- Yes TAKE 1 Wanda ey 75 MG oral 1-31 CAPSULE Seybol d Capsule 00:00: (75 MG) BY 00 MOUTH DAILY AT BEDTIME Doxepin HCl 2021- Yes TAKE 1 Wanda ey 75 MG oral -31 CAPSULE Seybol d Capsule 00:00: (75 MG) BY 00 MOUTH DAILY AT BEDTIME Doxepin HCl Yes TAKE 1 Wanda ey 75 MG oral 1-31 CAPSULE Seybol d Capsule 00:00: (75 MG) BY 00 MOUTH DAILY AT BEDTIME Doxepin HCl 2021-0 Yes TAKE 1 [place] ey 75 MG oral 1-31 CAPSULE Seybol [...] MOUTH DAILY AT BEDTIME Fluoxetine 2021-0 Yes [id number] Take by [place] HCl 20 MG 1-27 mouth 2 Seybold oral 08:05: times Capsule 51 daily Metformin 2021-0 Yes [id number] 1000mg Take 1,000 [place] HCl 1000 MG 1-27 mg by Seybold oral Tablet 08:05: mouth 32 daily HYDROcodone 2021-0 Yes [id number] Take by [place] -Acetaminop 1-27 mouth Seybold hen 10-325 08:05: MG oral 25 Tablet Tizanidine 2021-0 Yes [id number] every 6 [place] HCl 1-27 (six) Seybold (Zanaflex) 08:05: hours 2 MG oral 25 Capsule HYDROcodone 2021-0 Yes [id number] Take by Cheyenne -Acetaminop 1-27 mouth Seybold hen 10-325 08:05: MG oral 25 Tablet Tizanidine 2-0 Yes [id number] every 6 Cheyenne HCl 1-27 (six) Seybold (Zanaflex) 08:05: hours 2 MG oral 25 Capsule Docusate 2021-0 Yes [id number] 100mg Take 100 Cheyenne Sodium 100 1-26 mg by Seybold MG oral 00:00: mouth 2 Tablet 00 times daily Sennosides 2021-0 Yes [id number] 1{capsu Take 1 Cheyenne (Senna) 8.6 1-26 le} capsule by Se ybold MG oral 00:00: mouth Capsule 00 daily Docusate 2-0 Yes [id number] 100mg Take 100 Cheyenne Sodium 100 1-26 mg by Seybold MG oral 00:00: mouth 2 Tablet 00 times daily Sennosides 202-0 Yes [id number] 1{capsu Take 1 Cheyenne (Senna) 8.6 1-26 le} capsule by Se ybold MG oral 00:00: mouth Capsule 00 daily Sennosides 202-0 Yes [id number] 1{capsu Take 1 Cheyenne (Senna) 8.6 1-26 le} capsule by Se ybold MG oral 00:00: mouth Capsule 00 daily Sennosides 2020 Yes [id number] 1{capsu Take 1 Cheyenne (Senna) 8.6 1-26 le} capsule by Se ybold MG oral 00:00: mouth Capsule 00 daily Sennosides 202-0 Yes [id number] 1{capsu Take 1 Cheyenne (Senna) 8.6 1-26 le} capsule by Se ybold MG oral 00:00: mouth Capsule 00 daily Sennosides 202-0 Yes [id number] 1{capsu Take 1 Cheyenne (Senna) 8.6 1-26 le} capsule by Se ybold MG oral 00:00: mouth Capsule 00 daily Sennosides 202-0 Yes [id number] 1{capsu Take 1 Cheyenne (Senna) 8.6 1-26 le} capsule by Se ybold MG oral 00:00: mouth Capsule 00 daily Sennosides 202-0 Yes [id number] 1{capsu Take 1 Cheyenne (Senna) 8.6 1-26 le} capsule by Se ybold MG oral 00:00: mouth Capsule 00 daily Metoprolol 0 Yes [id number] 50mg Take 1 K elsey Tartrate 50 1-26 tablet (50 Se ybold MG oral 00:00: mg total) Tablet 00 by mouth 2 times daily Sennosides 2020 Yes [id number] 1{capsu Take 1 Cheyenne (Senna) 8.6 1-26 le} capsule by Se ybold MG oral 00:00: mouth Capsule 00 daily Docusate 2021-0 Yes [id number] 100mg Take 100 [place]enne Sodium 100 1-26 mg by Seybold MG oral 00:00: mouth 2 Tablet 00 times daily Sennosides 0 Yes [id number] 1{capsu Take 1 Cheyenne (Senna) 8.6 1-26 le} capsule by Se ybold MG oral 00:00: mouth Capsule 00 daily Gabapentin 2022-0 Yes [id number] Ke lsey 800 MG oral 1-24 Seybold Tablet 00:00: 00 Gabapentin 2022-0 Yes [id number] Ke lsey 800 MG oral 1-24 Seybold Tablet 00:00: 00 Gabapentin 2022-0 Yes [id number] Ke lsey 800 MG oral 1-24 Seybold Tablet 00:00: 00 Gabapentin 2022-0 Yes [id number] Ke lsey 800 MG oral 1-24 Seybold Tablet 00:00: 00 Gabapentin 2022-0 Yes [id number] Ke lsey 800 MG oral 1-24 Seybold Tablet 00:00: 00 Gabapentin 2022-0 Yes [id number] Ke lsey 800 MG oral 1-24 Seybold Tablet 00:00: 00 Gabapentin 2022-0 Yes [id number] Ke lsey 800 MG oral 1-24 Seybold Tablet 00:00: 00 Gabapentin 2022-0 Yes [id number] Ke lsey 800 MG oral 1-24 Seybold Tablet 00:00: 00 Gabapentin 2022-0 Yes [id number] Ke lsey 800 MG oral 1-24 Seybold Tablet 00:00: 00 Gabapentin 2022-0 Yes [id number] Ke lsey 800 MG oral 1-24 Seybold Tablet 00:00: 00 Morphine 2022-0 Yes [id number] Wanda ey Sulfate ER 1-15 Seybold 15 MG oral 00:00: Tab CR 00 Morphine 2022-0 Yes [id number] Wanda ey Sulfate ER 1-15 Seybold 15 MG oral 00:00: Tab CR 00 Morphine 2022-0 Yes [id number] Wanda ey Sulfate ER 1-15 Seybold 15 MG oral 00:00: Tab CR 00 Morphine 2022-0 Yes [id number] Wanda ey Sulfate ER 1-15 Seybold 15 MG oral 00:00: Tab CR 00 Morphine 2022-0 Yes [id number] Wanda ey Sulfate ER 1-15 Seybold 15 MG oral 00:00: Tab CR 00 Morphine 2022-0 Yes [id number] Wanda ey Sulfate ER 1-15 Seybold 15 MG oral 00:00: Tab CR 00 Morphine 2022-0 Yes [id number] Wanda ey Sulfate ER 1-15 Seybold 15 MG oral 00:00: Tab CR 00 Morphine 2022-0 Yes [id number] Wanda ey Sulfate ER 1-15 Seybold 15 MG oral 00:00: Tab CR 00 Morphine 2022-0 Yes [id number] Wanda ey Sulfate ER 1-15 Seybold 15 MG oral 00:00: Tab CR 00 Morphine 2022-0 Yes [id number] Wanda ey Sulfate ER 1-15 Seybold 15 MG oral 00:00: Tab CR 00 Doxepin HCl 2022-0 Yes [id number] Ke lsey 25 MG oral 1-12 Seybold Capsule 00:00: 00 Doxepin HCl 2022-0 Yes [id number] Ke lsey 25 MG oral 1-12 Seybold Capsule 00:00: 00 Doxepin HCl 2022-0 Yes [id number] Ke lsey 25 MG oral 1-12 Seybold Capsule 00:00: 00 Doxepin HCl 2022-0 2022- No [id number] K elsey 25 MG oral 1-12 - Seybold Capsule 00:00: 00:00 00 :00 Lokelma 10 2022-0 Yes [id number] Cole sey g oral Pack 1-10 Seybold 00:00: 00 Lokelma 10 2022-0 Yes [id number] Cole sey g oral Pack 1-10 Seybold 00:00: 00 Lokelma 10 2022-0 Yes [id number] Cole sey g oral Pack 1-10 Seybold 00:00: 00 Lokelma 10 2022-0 Yes [id number] Cole sey g oral Pack 1-10 Seybold 00:00: 00 Lokelma 10 2022-0 Yes [id number] Cole sey g oral Pack 1-10 Seybold 00:00: 00 Lokelma 10 2022-0 Yes [id number] Cole sey g oral Pack 1-10 Seybold 00:00: 00 Lokelma 10 2022-0 Yes [id number] Cole sey g oral Pack 1-10 Seybold 00:00: 00 Lokelma 10 2022-0 Yes [id number] Cole sey g oral Pack 1-10 Seybold 00:00: 00 Lokelma 10 2022-0 Yes [id number] Cole sey g oral Pack 1-10 Seybold 00:00: 00 Lokelma 10 2022-0 Yes [id number] Cole sey g oral Pack 1-10 Seybold 00:00: 00 Sodium 2022- No [id number] 650mg Take 650 K elsey Bicarbonate 1-10 -11 mg by Seybol d 650 MG oral 00:00: 05:59 mouth 3 Tablet 00 :00 times daily Sodium 0 2022- No [id number] 650mg Take 650 K elsey Bicarbonate 1-10 -11 mg by Seybol d 650 MG oral 00:00: 05:59 mouth 3 Tablet 00 :00 times daily Sodium 2022- No [id number] 650mg Take 650 K elsey Bicarbonate 1-10 -11 mg by Seybol d 650 MG oral 00:00: 05:59 mouth 3 Tablet 00 :00 times daily Sodium 2022- No [id number] 650mg Take 650 K elsey Bicarbonate 1-10 -11 mg by Seybol d 650 MG oral 00:00: 05:59 mouth 3 Tablet 00 :00 times daily Sodium 2022- No [id number] 650mg Take 650 K elsey Bicarbonate 1-10 -11 mg by Seybol d 650 MG oral 00:00: 05:59 mouth 3 Tablet 00 :00 times daily Sodium 2022- No [id number] 650mg Take 650 K elsey Bicarbonate 1-10 -11 mg by Seybol d 650 MG oral 00:00: 05:59 mouth 3 Tablet 00 :00 times daily Sodium 2022- No [id number] 650mg Take 650 K elsey Bicarbonate 1-10 -11 mg by Seybol d 650 MG oral 00:00: 05:59 mouth 3 Tablet 00 :00 times daily Sodium 2022- No [id number] 650mg Take 650 K elsey Bicarbonate 1-10 -11 mg by Seybol d 650 MG oral 00:00: 05:59 mouth 3 Tablet 00 :00 times daily Sodium 2022- No [id number] 650mg Take 650 K elsey Bicarbonate 1-10 -11 mg by Seybol d 650 MG oral 00:00: 05:59 mouth 3 Tablet 00 :00 times daily Sodium 2022- No [id number] 650mg Take 650 K elsey Bicarbonate 1-10 01-11 mg by Seybol d 650 MG oral 00:00: 05:59 mouth 3 Tablet 00 :00 times daily [facility]-0 Yes [id number] K elsey MG oral 1-05 Seybold Tablet 00:00: 00 [facility] 2021-0 Yes [id number] K elsey MG oral 1-05 Seybold Tablet 00:00: 00 [facility] Yes [id number] K elsey MG oral 1-05 Seybold Tablet 00:00: 00 Mov[facility] 2021-0 Yes [id number] K elsey MG oral 1-05 Seybold Tablet 00:00: 00 [facility] 2021-0 Yes [id number] K elsey MG oral 1-05 Seybold Tablet 00:00: 00 [facility] 2021-0 Yes [id number] K elsey MG oral 1-05 Seybold Tablet 00:00: [facility]-0 Yes [id number] K elsey MG oral 1-05 Seybold Tablet 00:00: 00 [facility] Yes [id number] K elsey MG oral 1-05 Seybold Tablet 00:00: 00 [facility] 2021-0 Yes [id number] K elsey MG oral 1-05 Seybold Tablet 00:00: 00 [facility] 2021-0 Yes [id number] K elsey MG oral 1-05 Seybold Tablet 00:00: 00 Ferrous 2020-02 Yes [id number] Kelse y Sulfate 325 2-26 Seybold (65 Fe) MG 00:00: oral Tablet 00 Ferrous 2020-02 Yes [id number] Kelse y Sulfate 325 2-26 Seybold (65 Fe) MG 00:00: oral Tablet 00 Ferrous 2020-02 Yes [id number] Kelse y Sulfate 325 2-26 Seybold (65 Fe) MG 00:00: oral Tablet 00 Ferrous 2020-02 Yes [id number] Kelse y Sulfate 325 2-26 Seybold (65 Fe) MG 00:00: oral Tablet 00 Ferrous 2020-02 Yes [id number] Kelse y Sulfate 325 2-26 Seybold (65 Fe) MG 00:00: oral Tablet 00 Ferrous 2020-02 Yes [id number] Kelse y Sulfate 325 2-26 Seybold (65 Fe) MG 00:00: oral Tablet 00 Ferrous 2020-1 Yes [id number] Kelse y Sulfate 325 2-26 Seybold (65 Fe) MG 00:00: oral Tablet 00 Ferrous 2020- Yes [id number] Kelse y Sulfate 325 2-26 Seybold (65 Fe) MG 00:00: oral Tablet 00 Ferrous 2020- Yes [id number] Kelse y Sulfate 325 2-26 Seybold (65 Fe) MG 00:00: oral Tablet 00 Ferrous 2020- Yes [id number] Kelse y Sulfate 325 2-26 Seybold (65 Fe) MG 00:00: oral Tablet 00 [facility] Vitamin 202-1 Yes [id number] K elsey B12 1000 2-08 Seybold MCG oral 00:00: Tab CR 00 Magnesium 2021-1 Yes [id number] Wanda ey Oxide 420 2-08 Seybold MG oral 00:00: Tablet 00 [facility] Vitamin 2021-1 Yes [id number] K elsey B12 1000 2-08 Seybold MCG oral 00:00: Tab CR 00 Magnesium 2021-1 Yes [id number] Wanda ey Oxide 420 2-08 Seybold MG oral 00:00: Tablet 00 [facility] Vitamin 2021-1 Yes [id number] K elsey B12 1000 2-08 Seybold MCG oral 00:00: Tab CR 00 Magnesium 2021-1 Yes [id number] Wanda ey Oxide 420 2-08 Seybold MG oral 00:00: Tablet 00 [facility] Vitamin 2021-1 Yes [id number] K elsey B12 1000 2-08 Seybold MCG oral 00:00: Tab CR 00 Magnesium 2021-1 Yes [id number] Wanda ey Oxide 420 2-08 Seybold MG oral 00:00: Tablet 00 [facility] Vitamin 2021-1 Yes [id number] K elsey B12 1000 2-08 Seybold MCG oral 00:00: Tab CR 00 Magnesium 2021-1 Yes [id number] Wanda ey Oxide 420 2-08 Seybold MG oral 00:00: Tablet 00 [facility] Vitamin 2021-1 Yes [id number] K elsey B12 1000 2-08 Seybold MCG oral 00:00: Tab CR 00 Magnesium 2021-1 Yes [id number] Wanda ey Oxide 420 2-08 Seybold MG oral 00:00: Tablet 00 [facility] Vitamin 202-1 Yes [id number] K elsey B12 1000 2-08 Seybold MCG oral 00:00: Tab CR 00 Magnesium 202-1 Yes [id number] Wanda ey Oxide 420 2-08 Seybold MG oral 00:00: Tablet 00 [facility] Vitamin 202-1 Yes [id number] K elsey B12 1000 2-08 Seybold MCG oral 00:00: Tab CR 00 [facility] Vitamin 2020-1 Yes [id number] K elsey B12 1000 2-08 Seybold MCG oral 00:00: Tab CR 00 Magnesium 2021-1 Yes [id number] Wanda ey Oxide 420 2-08 Seybold MG oral 00:00: Tablet 00 Magnesium 202-1 Yes [id number] Wanda ey Oxide 420 2-08 Seybold MG oral 00:00: Tablet 00 [facility] Vitamin 2020- Yes [id number] K elsey B12 1000 2-08 Seybold MCG oral 00:00: Tab CR 00 Magnesium 2021-1 Yes [id number] Wanda ey Oxide 420 2-08 Seybold MG oral 00:00: Tablet 00 Ascorbic 2020- Yes [id number] 1{tbl} Take 1 Cheyenne Acid 500 MG 1-22 tablet by Sey bold oral Tablet 00:00: mouth 2 00 times daily Ascorbic 2020- Yes [id number] 1{tbl} Take 1 [place]enne Acid 500 MG 1-22 tablet by Sey bold oral Tablet 00:00: mouth 2 00 times daily Ascorbic 2020- Yes [id number] 1{tbl} Take 1 [place]enne Acid 500 MG 1-22 tablet by Sey bold oral Tablet 00:00: mouth 2 00 times daily Ascorbic 2020- Yes [id number] 1{tbl} Take 1 [place] Acid 500 MG 1-22 tablet by Sey bold oral Tablet 00:00: mouth 2 00 times daily Ascorbic 2020- Yes [id number] 1{tbl} Take 1 [place] Acid 500 MG 1-22 tablet by Sey bold oral Tablet 00:00: mouth 2 00 times daily Ascorbic 2020- Yes [id number] 1{tbl} Take 1 [place] Acid 500 MG 1-22 tablet by Sey bold oral Tablet 00:00: mouth 2 00 times daily Ascorbic 2020- Yes [id number] 1{tbl} Take 1 [place] Acid 500 MG 1-22 tablet by Sey bold oral Tablet 00:00: mouth 2 00 times daily Ascorbic 2020-02 Yes [id number] 1{tbl} Take 1 [place] Acid 500 MG 1-22 tablet by Sey bold oral Tablet 00:00: mouth 2 00 times daily Ascorbic 2020-02 Yes [id number] 1{tbl} Take 1 [place] Acid 500 MG 1-22 tablet by Sey bold oral Tablet 00:00: mouth 2 00 times daily Ascorbic 2020-02 Yes [id number] 1{tbl} Take 1 [place] Acid 500 MG 1-22 tablet by Sey bold oral Tablet 00:00: mouth 2 00 times daily Amlodipine 2020-0 2021- No [id number] 5mg Take 5 mg Cheyenne Besylate 5 -02 09- by mouth Seyb old MG oral 00:00: 04:59 daily Tablet 00 :00 Amlodipine 2020-0 2021- No [id number] 5mg Take 5 mg Cheyenne Besylate 5 -02 09- by mouth Seyb old MG oral 00:00: 04:59 daily Tablet 00 :00 Amlodipine 2020-0 2021- No [id number] 5mg Take 5 mg Cheyenne Besylate 5 -02 09- by mouth Seyb old MG oral 00:00: 04:59 daily Tablet 00 :00 Amlodipine 2020-0 2021- No [id number] 5mg Take 5 mg Cheyenne Besylate 5 -02 09- by mouth Seyb old MG oral 00:00: 04:59 daily Tablet 00 :00 Amlodipine 2020-0 2021- No [id number] 5mg Take 5 mg Cheyenne Besylate 5 -02 09- by mouth Seyb old MG oral 00:00: 04:59 daily Tablet 00 :00 Amlodipine 2020-0 2021- No [id number] 5mg Take 5 mg Cheyenne Besylate 5 -03 05-29 by mouth Seyb old MG oral 00:00: 00:00 daily Tablet 00 :00 gabapentin 2020-0 Yes 800mg Take 800 Un luz marina 800 mg 5-17 mg by ity of tablet 00:00: mouth [place] 00 every 6 Medical (six) Branch hours. gabapentin 2020-0 Yes 800mg Take 800 Un luz marina 800 mg 5-17 mg by ity of tablet 00:00: mouth [place] 00 every 6 Medical (six) Branch hours. Immunizations Ordered Immunization Filled Immunization Date Status Commen ts Source Name Name SARS-COV-2 COVID-19 2021-01-10 Completed Unive rsity of PFIZER VACCINE 00:00:00 [facility] SARS-COV-2 COVID-19 2021-01-10 Completed Unive rsity of PFIZER VACCINE 00:00:00 [facility] Covid-19 Vaccine 2021-01-10 Completed Cheyenne S eybold [...] Protein, Pf, 30mcg/0.3ml,IM SARS-COV-2 COVID-19 2020-04-27 Completed [facility] of PFIZER VACCINE 00:00:00 [facility] SARS-COV-2 COVID-19 2020-04-27 Completed Unive rsity of PFIZER VACCINE 00:00:00 [facility] Covid-19 Vaccine 2020-04-27 Completed Cheyenne S eybold [...] Completed Unive rsity of PFIZER VACCINE 00:00:00 [facility] SARS-COV-2 COVID-19 2020-04-06 Completed Unive rsity of PFIZER VACCINE 00:00:00 [facility] Covid-19 Vaccine 2020-04-06 Completed Cheyenne S eybold [...] Pf, 30mcg/0.3ml,IM Covid-19 Vaccine 2020-04-06 Completed Cheyenne bloodbold ([employer]), Mrna-lnp, 00:00:00 Noam Protein, Pf, 30mcg/0.3ml,IM Covid-19 Vaccine 2020-04-06 Completed Cheyenne Uriarte eybold ([employer]), Mrna-lnp, 00:00:00 Noam Protein, Pf, 30mcg/0.3ml,IM Covid-19 Vaccine 2020-04-06 Completed Cheyenne Uriarte eybold ([employer]), Mrna-lnp, 00:00:00 Noam Protein, Pf, 30mcg/0.3ml,IM Covid-19 Vaccine 2020-04-06 Completed Cheyenne bloodbold ([employer]), Mrna-lnp, 00:00:00 Noam Protein, Pf, 30mcg/0.3ml,IM Covid-19 Vaccine 2020-04-06 Completed Cheyenne bloodbold ([employer]), Mrna-lnp, 00:00:00 Noam Protein, Pf, 30mcg/0.3ml,IM Covid-19 Vaccine 2020-04-06 Completed Cheyenne Uriarte eybold ([employer]), Mrna-lnp, 00:00:00 Noam Protein, Pf, 30mcg/0.3ml,IM Covid-19 Vaccine 2020-04-06 Completed Cheyenne bloodbold ([employer]), Mrna-lnp, 00:00:00 Noam Protein, Pf, 30mcg/0.3ml,IM Covid-19 Vaccine 2020-04-06 Completed Cheyenne bloodbold ([employer]), Mrna-lnp, 00:00:00 Noam Protein, Pf, 30mcg/0.3ml,IM Influenza Virus 2018-11-01 Completed [facility] Vaccine (3+ yrs) 00:00:00 [facility] Influenza Virus 2018-11-01 Completed [facility] of Vaccine 00:00:00 [facility] Influenza Virus 2018-11-01 Completed [facility]it [facility] of Vaccine (3+ yrs) 00:00:00 [facility] Influenza Virus 2018-11-01 Completed Universit [facility] of Vaccine 00:00:00 [facility] Influenza, Seasonal, 2018-11-01 Completed Wanda ey Seybold [...] Cheyenne Se ybold Vaccine, Unspecified 00:00:00 Formulation Pneumococcal 2018-09-08 Completed Klemme o f Polysaccharide, 00:00:00 [facility] ical PPSV23 (PNEUMOVAX) Branch Pneumococcal 2018-09-08 Completed Klemme o f Polysaccharide, 00:00:00 [place] [facility] ical PPSV23 (PNEUMOVAX) Branch Pneumococcal Vaccine, 2018-09-08 Completed Cole sey Seybold [...] 2018-09-08 Completed Cole sey Seybold Polysaccharide 00:00:00 Vital Signs Vital Name Observation Time Observation Value Comments Source Body weight 2021-10-08 14:40:00 120.203 kg [facility] BMI 2021-10-08 14:40:00 34.02 kg/m2 [facility] Systolic blood 2021-06-25 16:08:00 140 mm[Hg] Cheyenne Seybold pressure Diastolic blood 2021-06-25 16:08:00 85 mm[Hg] Kelse y Seybold pressure Heart rate 2021-06-25 16:08:00 60 /min Cheyenne S eybold Respiratory rate 2021-06-25 16:08:00 18 /min Wanda ey Seybold Body height 2021-06-25 16:08:00 188 cm Cheyenne S eybold Body weight 2021-06-25 16:08:00 117.935 kg Cheyenne [...] eybold BMI 2021-05-23 16:35:00 34.28 kg/m2 Cheyenne S eybold Oxygen saturation in 2021-05-23 16:35:00 98 /min Cheyenne Seybold Arterial blood by Pulse oximetry Systolic blood [...] Body weight 2021-04-30 13:47:00 123.016 kg Cheyenne S eybold BMI 2021-04-30 13:47:00 34.82 kg/m2 Cheyenne S eybold Oxygen saturation in 2021-04-30 13:47:00 99 /min Cheyenne Seybold Arterial blood by Pulse oximetry Body temperature 2021-04-07 14:48:00 37.11 Carlyn Wanda ey Seybold Body height 2021-04-07 14:48:00 188 cm Cheyenne S eybold Body weight 2021-04-07 14:48:00 117.935 kg Cheyenne S eybold BMI 2021-04-07 14:48:00 33.38 kg/m2 Cheyenne S eybold Systolic blood 2021-04-02 16:06:00 138 mm[Hg] Cheyenne Seybold pressure Diastolic blood 2021-04-02 16:06:00 81 mm[Hg] Kelse y Seybold pressure Heart rate 2021-04-02 16:06:00 55 /min Cheyenne S eybold Body temperature 2021-04-02 16:06:00 36 Carlyn Wanda ey Seybold Respiratory rate 2021-04-02 16:06:00 14 /min Wanda ey Seybold Body height 2021-04-02 16:06:00 188 cm Cheyenne S eybold Body weight 2021-04-02 16:06:00 122.471 kg Cheyenne S eybold BMI 2021-04-02 16:06:00 34.67 kg/m2 Cheyenne S eybold Systolic blood 2021-03-05 16:16:00 164 mm[Hg] Cheyenne Brittmiltonrita pressure Diastolic blood 2021-03-05 16:16:00 86 mm[Hg] Quan Brady pressure Heart rate 2021-03-05 16:16:00 106 /min Cheyenne romeo Body temperature 2021-03-05 16:16:00 35.67 Carlyn Wanda Brady Respiratory rate 2021-03-05 16:16:00 12 /min Wanda Brady Body height 2021-03-05 16:16:00 188 cm Cheyenne romeo Body weight 2021-03-05 16:16:00 118.842 kg Cheyenne rmoeo BMI 2021-03-05 16:16:00 33.64 kg/m2 Cheyenne romeo Procedures Procedure Date / Time Performed Performing Clinician [facility] FUNGUS CULTURE 2021-06-26 02:23:00 KeithNeftali zepeda [facility] SHOULDER 3 VIEW RIGHT 2021-05-16 16:50:00 Ryder Nathan (ORTHO) KNEE ROUTINE 38 YEARS 2021-05-16 16:20:08 Ryder Nathan AND OLDER RIGHT HIPS BILATERAL 2021-04-07 16:58:39 Dianna Johnson LUMBAR SPINE 2 VIEWS 2021-04-07 16:54:49 Dianna Johnson LUMBAR SPINE 2021-04-07 16:45:43 Dianna Johnson FLEX/EXTENSION ONLY CERVICAL SPINE - 2 VIEW 2021-04-07 16:44:19 Dianna Johnson URINALYSIS, ROUTINE 2021-04-02 17:46:00 Caroline Valle MICROSCOPIC EXAMINATION 2021-04-02 17:46:00 Caroline Valle PHOSPHORUS, SERUM 2021-04-02 17:27:00 Caroline Valle MAGNESIUM, SERUM 2021-04-02 17:27:00 Caroline Valle COMP. METABOLIC PANEL 2021-04-02 17:27:00 Caroline Valle (14) Plan of Care Planned Activity Planned Date Details Comments Source Future Scheduled 2021-10-29 INFLUENZA VACCINE [facility] 05:44:13 [code = INFLUENZA VACCINE] Future Scheduled 2021-10-29 [facility]13 (1 of 3 - 3-dose series) [code = HEPATITIS B VACCINES (1 of 3 - 3-dose series)] Future Scheduled 2021-10-29 COLONOSCOPY SCREENING [facility] Test 05:44:13 [code = COLONOSCOPY SCREENING] Future Scheduled 2021-10-29 COVID-19 VACCINE (4 - [facility] Test 05:44:13 Booster for Pfizer series) [code = COVID-19 VACCINE (4 - Booster for Pfizer series)] Encounters Start End Encounter Admission Attending Care Care Encounter Source Date/Time Date/Time Type Type Clinicians Facility Department ID 2021-11-25 2021-11-25 Outpatient CHEYENNE VALLE [id number] Cheyenne 09:00:00 09:00:00 CAROLINE billings 2021-10-21 2021-10-21 Refill G[facility] [id number] Univers 00:00:00 00:00:00 [facility] [id number] it y of EYE [id number] [facility] [place] [id number] [address] 2021-10-15 2021-10-15 Outpatient AOSM AOSM [id number] Sharon 00:00:00 00:00:00 [id number] Orthop e dic Sports Medicin e 2021-10-08 2021-10-08 Office Gera [facility] [id number] Univers 09:30:00 10:36:53 Visit [facility] [id number] it y of EYE [id number] [facility] [place] [phone] [address] 2021-10-08 2021-10-08 Outpatient Tawana BOSS [facility] [id number] Univers 09:30:00 10:36:53 ALMAS itmargaret [facility] 2021-10-08 2021-10-08 Outpatient CHEYENNE BEDOYA CHEYENNE [id number] [place] 08:00:00 08:00:00 AHMED Seybol d 2021-10-03 2021-10-03 Outpatient LAB90 CHEYENNE CHEYENNE [id number] Che[place] 10:35:00 10:35:00 Seybol d 2021-09-25 2021-09-25 Outpatient LAB90 CHEYENNE CHEYENNE [id number] [place] 09:50:00 09:50:00 Seybol d 2021-09-25 2021-09-25 Office Surendra Gusman [id number] [place] 09:00:00 09:15:00 Visit Evie He [id number] Se ybold Somogyi [id number] 2021-09-25 2021-09-25 Outpatient NASEEM, CHEYENNE DIAZ [id number] [place] 00:00:00 00:00:00 EVIE Seybol d 2021-09-22 2021-09-22 Outpatient TIHAGOSoha CHEYENNE DIAZ [id number] [place] 10:00:00 10:00:00 CAROLINE Seybol d 2021-09-17 2021-09-17 Outpatient LAB90 CHEYENNE DIAZ [id number] [place] 09:45:00 09:45:00 Seybol d 2021-09-17 2021-09-17 Office Surendra Gusman [id number] [place] 09:00:00 09:30:00 Visit Evie He [id number] Se ybold Somogyi [id number] 2021-09-11 2021-09-11 Outpatient LEONARD [place] DIAZ [id number] [place] 00:00:00 00:00:00 CAROLINE Seybol d 2021-08-12 2021-08-12 Outpatient CHEYENNE VALLE [id number] [place] 00:00:00 00:00:00 CAROLINE Seybol d 2021-07-22 2021-07-22 Outpatient CHEYENNE VALLE [id number] [place] 13:30:00 13:30:00 CAROLINE Seybol d 2021-07-15 2021-07-15 Outpatient THIAGOSoha CHEYENNE DIAZ [id number] [place] 00:00:00 00:00:00 CAROLINE Seybol d 2021-07-08 2021-07-08 Outpatient LEONARD [place] DIAZ [id number] [place] 00:00:00 00:00:00 CAROLINE Seybol d 2021-07-02 2021-07-02 Outpatient DIANNA JOHNSON [place] DIAZ [id number] [place] 10:30:00 10:30:00 Seybol d 2021-06-26 2021-06-26 Outpatient CHEYENNE DIAZ [id number] [place] 07:35:00 07:35:00 Seybol d 2021-06-26 2021-06-26 Outpatient CHEYENNE DIAZ [id number] [place] 07:05:00 07:05:00 Seybol d 2021-06-26 2021-06-26 Outpatient JOHNDERICCHEYENNE [id number] [place] 07:00:00 07:00:00 AHMED Seybol d 2021-06-26 2021-06-26 Outpatient MORRIS [place] DIAZ [id number] [place] 00:00:00 00:00:00 SHAHEEN vicente 2021-06-25 2021-06-25 Lab Keith [id number] Methodi 21:20:00 21:25:00 Edward [id number] [facility] [id number] Hospit a [id number] l .8 2021-06-25 2021-06-25 Office KORIN NATHAN [id number] [place] 11:20:00 11:20:00 Visit [facility] [id number] kristen [id number] 2021-06-25 2021-06-25 Outpatient CHEYENNE TRAYLOR [id number] [place] 00:00:00 00:00:00 ADRYENE Seybol d 2021-06-25 2021-06-25 Outpatient [facility] [id number] [place] 00:00:00 00:00:[address] 2021-06-25 2021-06-25 Travel 1.2.840.1 1.2.062.716 [id number] Methodi 00:00:00 00:00:[address] 3.430.2.7 0.2.7.3.698 Ho spita .3.444465 084.8 l .8 2021-06-23 2021-06-23 Outpatient CHEYENNE BEDOYA [id number] [place] 00:00:00 00:00:00 AHMED Seybol d 2021-06-20 2021-06-20 Telemedici Dianna Johnson 1.2.840.11 4 [id number] [place] 10:15:00 10:26:50 ne T D 350.1.13.13 Se ybold 1.2.7.2.686 [id number] 5 2021-06-16 2021-06-16 Outpatient DIANNA JOHNSON [id number] [place] 15:15:00 15:15:00 Seybol d 2021-06-16 2021-06-16 Outpatient CHEYENNE VALLE [id number] [place] 00:00:00 00:00:00 CAROLINE Seybol d 2021-06-14 2021-06-14 Outpatient CHEY[place]NE VALLE [id number] [place] 00:00:00 00:00:00 CAROLINE Seybol d 2021-06-07 2021-06-07 Outpatient CHEYENNE NATHAN [id number] [place] 00:00:00 00:00:00 RYDER Seybol d 2021-06-07 2021-06-07 Outpatient DIANNA JOHNSON [id number] [place] 00:00:00 00:00:00 Seybol d 2021-06-05 2021-06-05 Outpatient CHEYENNE BEDOYA [id number] [place] 09:02:00 09:02:00 AHMED Seybol d 2021-06-05 2021-06-05 Outpatient [place]NE DIAZ [id number] [place] 07:15:00 07:15:00 Seybol d 2021-06-05 2021-06-05 Outpatient MORRISCHEYENNE [id number] [place] 00:00:00 00:00:00 SHAHEEN Seybo ld 2021-06-04 2021-06-04 Outpatient ELKECHEYENNE [id number] [place] 00:00:00 00:00:00 AHMED Seybol d 2021-06-04 2021-06-04 Outpatient TRAYLORCHEYENNE [id number] [place] 00:00:00 00:00:00 ADRYENE Seybol d 2021-06-03 2021-06-03 Outpatient MARY ESPANA [id number] [place] 10:30:00 10:30:00 Seybol d 2021-05-23 2021-05-23 Outpatient [place] DIAZ [id number] [place] 14:00:00 14:00:00 Seybol d 2021-05-23 2021-05-23 Outpatient [facility] [place] DIAZ [id number] [place] 12:05:00 12:05:00 Seybol d 2021-05-23 2021-05-23 Office Diego Martin [id number] [place] 11:20:00 11:40:00 Visit [id number] Se ybold [id number] 2021-05-23 2021-05-23 Outpatient CHEYENNE NATHAN [id number] [place] 00:00:00 00:00:00 RYDER Seybol d 2021-05-21 2021-05-21 Outpatient [place]NE SUN [id number] [place] 00:00:00 00:00:00 AMARJIT Seybol d 2021-05-19 2021-05-19 Outpatient [place]NE SUN [id number] [place] 00:00:00 00:00:00 AMARJIT Seybol d 2021-05-16 2021-05-16 Outpatient [place]NE DIAZ [id number] [place] 11:45:00 11:45:00 Seybol d 2021-05-16 2021-05-16 Outpatient CHEY[place]NE CARRILLO [id number] [place] 11:45:00 11:45:00 NEY Seybol d 2021-05-16 2021-05-16 Office ArlinKORIN crenshaw [id number] [place] 11:00:00 11:20:00 Visit [facility] [id number] Se ybold [id number] 2021-05-16 2021-05-16 Outpatient [place]NE DIAZ [id number] [place] 11:05:00 11:05:00 Seybol d 2021-05-16 2021-05-16 Outpatient MARY ESPANA [id number] [place] 09:10:00 09:10:00 Seybol d 2021-05-12 2021-05-12 Outpatient DIANNA JOHNSON [id number] [place] 00:00:00 00:00:00 Seybol d 2021-05-11 2021-05-11 Outpatient DIANNA JOHNSON [id number] [place] 00:00:00 00:00:00 Seybol d 2021-05-08 2021-05-08 Outpatient CHEYENNE SUN [id number] [place] 09:30:00 09:30:00 AMARJIT Seybol d 2021-05-06 2021-05-06 Outpatient LAB90 [place]NE DIAZ [id number] [place] 10:55:00 10:55:00 Seybol d 2021-05-06 2021-05-06 Office Surendra Valle [id number] [place] 10:00:00 10:30:00 Visit Caroline Neri [id number] Se ybold [id number] 2021-05-05 2021-05-05 Outpatient CHEYENNE BEDOYA [id number] [place] 00:00:00 00:00:00 AHMED Seybol d 2021-05-05 2021-05-05 Outpatient CHEYENNE BEDOYA [place] [id number] [place] 00:00:00 00:00:00 AHMED Seybol d 2021-05-05 2021-05-05 Outpatient MAIRA [place] DIAZ [id number] [place] 00:00:00 00:00:00 MD RAJAN Seybol d 2021-05-05 2021-05-05 Outpatient SONYDIANNA [place] DIAZ [id number] [place] 00:00:00 00:00:00 Seybol d 2021-05-02 2021-05-02 Office Dianna Johnson KYLEE [id number] [place] 10:15:00 10:30:00 Visit Ezio Billings 350.1.13.13 Se ybold [id number] 2021-05-02 2021-05-02 Outpatient CHE[place]ENNE WASHINGTON [id number] [place] 09:00:00 09:00:00 CARMENCITA Seybol d 2021-04-30 2021-04-30 Outpatient LAB45 [place] DIAZ [id number] [place] 10:25:00 10:25:00 Seybol d 2021-04-30 2021-04-30 Office PAWEL Sun [id number] [place] 08:45:00 09:15:00 Visit Amarjit ANTOINE 350.1.13.13 Seybold DIAGNOSTI 1.2.7.2.686 [facility] [id number] 2021-04-30 2021-04-30 Outpatient CHEYENNE VALLE [id number] [place] 08:30:00 08:30:00 CAROLINE Seybol d 2021-04-25 2021-04-25 Inpatient EL TraylorJack dejesus [facility] RADI [id number] [facility] 10:00:00 10:00:00 57 Kym billings [facility] 2021-04-23 2021-04-23 Outpatient CHEYENNE GUEVARA [id number] [place] 09:00:00 09:00:00 JOSE Seybol d 2021-04-22 2021-04-22 Outpatient [place]NE DIAZ [id number] [place] 07:00:00 07:00:00 Seybol d 2021-04-22 2021-04-22 Outpatient CHEYENNE GUSMAN [id number] [place] 00:00:00 00:00:00 EVIE Seybol d 2021-04-22 2021-04-22 Outpatient [place]NE GUSMAN [id number] [place] 00:00:00 00:00:00 EVIE Seybol d 2021-04-18 2021-04-18 Outpatient [place]NE DIAZ [id number] [place] 14:00:00 14:00:00 Seybol d 2021-04-18 2021-04-18 Outpatient [place]NE VALLE [id number] [place] 00:00:00 00:00:00 CAROLINE Seybol d 2021-04-17 2021-04-17 [id number] 14:14:00 14:14:00 21 [facility] 2021-04-15 2021-04-15 Outpatient Sabra [facility] [id number] [facility] 15:51:00 15:51:00 75 [facility] 2021-04-14 2021-04-14 Outpatient [place]NE VALLE [id number] [place] 00:00:00 00:00:00 CAROLINE Seybol d 2021-04-11 2021-04-11 Outpatient LAB90 [place] DIAZ [id number] [place] 10:20:00 10:20:00 Seybol d 2021-04-10 2021-04-10 Outpatient CHE[place]NE VALLE [id number] [place] 00:00:00 00:00:00 CAROLINE Seybol d 2021-04-07 2021-04-07 Outpatient [place]NE DIAZ [id number] [place] 10:05:00 10:05:00 Seybol d 2021-04-07 2021-04-07 Outpatient [place]NE DIAZ [id number] [place] 10:00:00 10:00:00 Seybol d 2021-04-07 2021-04-07 Outpatient [place]NE DIAZ [id number] [place] 09:55:00 09:55:00 Seybol d 2021-04-07 2021-04-07 Outpatient [place]NE DIAZ [id number] [place] 09:50:00 09:50:00 Seybol d 2021-04-07 2021-04-07 Outpatient [place]NE DIAZ [id number] [place] 09:05:00 09:05:00 Seybol d 2021-04-07 2021-04-07 Office SONYDIANNA PAWEL HALL [id number] [place] 09:00:00 09:00:00 Visit MEDICAL 350.1.13.13 Seybold DIAGNOSTI 1.2.7.2.686 [facility] [id number] 2021-04-04 2021-04-04 Outpatient CHEY[place]NE VALLE [id number] [place] 00:00:00 00:00:00 CAROLINE Seybol d 2021-04-03 2021-04-03 Outpatient CHEYENNE SUN [id number] [place] 15:30:00 15:30:00 AMARJIT Seybol d 2021-04-02 2021-04-02 Outpatient LAB90 [place] DIAZ [id number] [place] 11:25:00 11:25:00 Seybol d 2021-04-02 2021-04-02 Office Surendra Valle [id number] [place] 10:00:00 10:30:00 Visit Caroline He 350.1.13.13 Se ybold [id number] 2021-03-26 2021-03-26 Outpatient CHEY[place]NE VALLE [id number] [place] 00:00:00 00:00:00 CAROLINE Seybol d 2021-03-26 2021-03-26 Outpatient [place]NE VALLE [id number] [place] 00:00:00 00:00:00 CAROLINE Seybol d 2021-03-06 2021-03-06 Outpatient [place]NE VALLE [id number] [place] 00:00:00 00:00:00 CAROLINE Seybol d 2021-03-05 2021-03-05 Office Surendra Valle [id number] [place] 10:30:00 11:00:00 Visit Caroline He 350.1.13.13 Se peterson 1.2.7.2.686 [id number] 2021-03-05 2021-03-05 Outpatient CHEY[place]NE VALLE [id number] [place] 00:00:00 00:00:00 CAROLINE billings 2019-07-20 2019-07-[address] [facility] 1.2.840.114 [id number] 00:00:00 00:00:00 [facility] 350.1.13.10 Surgical 4.2.7.2.686 Specialti [id number] es [address] [place] 2019-07-06 2019-07-06 [facility] 1.2.840.114 [id number] 00:00:00 00:00:00 [facility] 350.1.13.10 Surgical 4.2.7.2.686 Specialti [id number] es [address] [place] 2019-07-04 2019-07-04 [facility] [id number] 00:00:00 00:00:00 Lukasz [facility] 350.1.13.10 Surgical 4.2.7.2.686 Specialti [id number] es [address] [place] 2019-06-29 2019-06-[address] [facility] [id number] 08:56:15 09:22:49 Visit Lukasz [facility] 350.1.13.10 Surgical 4.2.7.2.686 Specialti [id number] es [address] [place] 2019-05-02 2019-05-03 Inpatient [facility] [address] 07:39:00 19:00:00 [facility] 2019-04-11 2019-04-11 Outpatient [facility] [address] 11:28:00 14:50:00 MAYA [facility] Results Test Description Test Time Test Comments Results Result Comments Source HEPATITIS B SURFACE ANTIBODY 2021-09-12 14:53:53 Test Item Value Reference Range Interpretation Comme nts HEPATITIS B SURFACE ANTIBODY (BEAKER) (test code = 647) < mIU/mL <8.0 King Maker ID - BSHEPATITIS B SURFACE [id number] 14:53:32 Test Item Value Reference Range Interpretation Comments HEPATITIS B SURFACE ANTIGEN (2) Nonreactive Nonreactive (BEAKER) (test code = 2585) Specimen is considered negative for HBsAg.HEPATITIS B CORE ANTIBODY, TOTAL 2021-09-12 14:53:32 Test Item Value Reference Range Interpretation Comments HEPATITIS B CORE TOTAL ANTIBODY Nonreactive Nonreactive (BEAKER) (test code = 497) King Maker ID - BSFungus [id number] 19:50:00 Test Item Value Reference Interpretation Comments Range Fungus culture Fusarium A Specimen isolate (test code species Informati onSpecimen = 580-1) Source: CorneaS pecimen Site: Left Eye [place] (test code = ONLY CXFUN IS [place]) REQUESTED ON REQ Lab Interpretation Abnormal (test code = 00781-4) [facility] [id number] 16:56:00 Test Item Value Reference Range Interpretation Comments SPECIFIC GRAVITY 1.005-1.030 (test code = 5811-5) PH (test code = 5.0-7.5 5803-2) URINE-COLOR (test Yellow Yellow code = 5778-6) APPEARANCE (test code Clear Clear = 5767-9) WBC ESTERASE (test 1+ Negative A code = 5799-2) PROTEIN (test code = Negative Negative/Trace 99744-0) GLUCOSE (test code = Negative Negative 67718-5) KETONES (test code = Negative Negative 2514-8) OCCULT BLOOD (test Negative Negative code = 5794-3) BILIRUBIN (test code Negative Negative = 5770-3) UROBILINOGEN,SEMI-QN 0.2 mg/dL 0.2-1.0 (test code = 49662-4) NITRITE, URINE (test Negative Negative code = 5802-4) MICROSCOPIC See below: Microscopic was EXAMINATION (test indicated and was code = 96272-7) performed. [place] (test code = PH[place]ENIX) [facility] results reported in [place] Time. [facility] Clinical Information:SRC :Urine*Urine ?L[facility] Source of Specimen:Urine* Urine Lab Interpretation Abnormal (test code = 01871-1) [place] SeyboldMICROSCOPIC [id number] 16:56:00 Test Item Value Reference Range Interpretation Comments WBC (test code = 11-30 See_Comment A [Automated 5821-4) message] The system which generated this result transmit senthil reference range : 0 - 5 /hpf. The reference range was not used to interpret this result as normal/abnormal . RBC (test code = None seen See_Comment [Automated 49709-0) message] The system which generated this result [...] code = None seen None seen /lpf 02315-9) BACTERIA (test code = None seen None seen/Few 5769-5) [place] (test code = [place]) [facility] results reported in [place] Time. [facility] Clinical Information:SRC :Urine*Urine ?L[facility] Source of Specimen:Urine* Urine Lab Interpretation Abnormal (test code = 39649-1) [place] BradyMAGNESIUM, [id number] 14:37:00 Test Item Value Reference Range Interpretation Comments MAGNESIUM, SERUM 1.9 mg/dL 1.6-2.3 (test code = 74630-7) [place] (test code = PH[place]) [facility] results reported in [place] Time. [facility] Clinical Information:[facility] Source of Specimen:Blood, venous*Venipunc [place] GrimesoldPHOSPHORUS, [id number] 14:37:00 Test Item Value Reference Range Interpretation Comments PHOSPHORUS, SERUM 3.2 mg/dL 2.8-4.1 (test code = 2777-1) [place] (test code = [place]IX) [facility] results reported in [place] Time. [facility] Clinical Information:SRC:Blood, venous*Venipunc ture ? [facility] Source of Specimen:Blood, venous*Venipunc [place] BrittyboldCOMP. METABOLIC PANEL (14)2021-04-03 14:09:00 Test Item Value [...] AM 70 mL/min/1.73 >59 (test code = 69479-8) EGFR IF AFRICN AM 81 mL/min/1.73 >59 In acc ordance with (test code = recommendations from 83122-9) the NKF-ASN Tas k force, ?[facility] rp [...] SERUM 105 mmol/L 96-106 (test code = 2074-0) CARBON DIOXIDE, 20 mmol/L 20-29 TOTAL (test code = 2027-) CALCIUM, SERUM (test 9.4 mg/dL 8.7-10.2 code = 96660-6) PROTEIN, TOTAL, 7.1 g/dL 6.0-8.5 SERUM (test code = 2885-2) ALBUMIN, SERUM (test 4.7 g/dL 4.0-5.0 code = 1751-7) GLOBULIN, TOTAL 2.4 g/dL 1.5-4.5 (test code = 58419-6) A/G RATIO (test code 1.2-2.2 = 1759-0) [...] [Automated message] code = 1920-8) The system [facility] generated this result transmitted ref erence range: 0 - 40 I U/L. The reference r reece was not used to interpret this result as normal/abnor mal. ALT (SGPT) (test See_Comment [Automated message] code = 1742-6) The system [facility] generated this result transmitted ref erence range: 0 - 44 I U/L. The reference r reece was not used to interpret this result as normal/abnor mal. [place] (test code = [facility] [place]) results reported in [place] Time. [facility] Clinical Information:SR C:Blood, venous*Venipun c ture ? [facility] Source of Specimen:Blood , venous*Venipun c Lab Interpretation Abnormal (test code = 62446-1) [place] Brady
[2021-11-10 18:08] LABS: Hematocrit 32.6 % (39.6-49.0); Lymphocytes % 7.8 % (15.3-44.8); MCV 95.8 fL (80-100); MPV 8.2 fL (7.6-11.3)
[2021-11-10 18:34] LABS: Albumin 3.2 g/dL (3.4-5.0); Bilirubin Direct 0.1 mg/dL (0-0.2); Bilirubin Total 0.4 mg/dL (0.2-1.0); Potassium 5.2 mmol/L (3.5-5.1); Protein, Total 7.1 g/dL (6.4-8.2)
[2021-11-10] MEDS ORDERED: NA CHLORIDE 0.9% 500 ML ONE (18:40)
--- NOTE | 2021-11-10 18:45 | ER ---
Nurse's Notes [facility] Name: Rhett Ayers Age: 45 yrs Sex: Male : 1975 Arrival Date: 11/10/2021 Time: 17:29 Bed 18 Private MD: Diagnosis: Weakness;Dehydration Presentation: 11/10 17:37 Chief complaint: Patient states: he feels like he has been slow to respond lately, and ap3 due to his hx of CKD he believes he may have elevated sodium levels. patient states he has a hx of sodium levels and he feels similar to those times. patient reports having an increase of alcohol Wednesday11/07/2021, which may have lead to this. Coronavirus screen: At this time, the client does not indicate any symptoms associated with coronavirus-19. Ebola Screen: No symptoms or risks identified at this time. Initial Sepsis Screen: Does the patient meet any 2 criteria? No. Patient's initial sepsis screen is negative. Does the patient have a suspected source of infection? No. Patient's initial sepsis screen is negative. Risk Assessment: Do you want to hurt yourself or someone else? Patient reports no desire to harm self or others. Onset of symptoms was November 10, 2021. 17:37 Method Of Arrival: Wheelchair ap3 17:37 Acuity: SANTIAGO 3 ap3 Triage Assessment: 17:40 General: Appears in no apparent distress. Behavior is calm, cooperative. Pain: Denies ap3 pain. Neuro: Level of Consciousness is awake, alert, obeys commands, Oriented to person, place, time, patient states he feels he is slow to respond. Cardiovascular: Patient's skin is warm and dry. Respiratory: Airway is patent Respiratory effort is even, unlabored, Respiratory pattern is regular, symmetrical. Historical: - Allergies: 17:40 No Known Allergies; ap3 - PMHx: 17:40 compressed discs; Diabetes - NIDDM; gastric ulcer; Hypertension; Kidney stone; ap3 Orthostatic hypotension; PUD; CKD; - PSHx: 17:40 Cholecystectomy; Gatric Bypass; Ureter sx; ap3 - Immunization history:: Client reports receiving the 2nd dose of the Covid vaccine. - Social history:: Smoking status: Patient denies any tobacco usage or history of. Patient uses alcohol, occasionally. Screenin:41 Abuse screen: Denies threats or abuse. Nutritional screening: No deficits noted. ap3 Tuberculosis screening: No symptoms or risk factors identified. 19:15 Fall Risk None identified. jj7 Assessment: 18:04 Neuro: Level of Consciousness is awake, alert, obeys commands, Oriented to person, mb8 place, time, situation, Appropriate for age Technical Marketing Engineer are equal bilaterally Moves all extremities. Full function Gait is steady, Speech is normal, Facial symmetry appears normal, Intact. Respiratory: No deficits noted. 18:31 Reassessment: Patient and/or family updated on plan of care and expected duration. Pain mb8 level reassessed. Patient is alert, oriented x 3, equal unlabored respirations, skin warm/dry/pink. 19:15 Reassessment: ASSUMED CARE OF PT. PT LYING IN BED TALKING TO . NO PAIN OR DISTRESS jj7 NOTED. VS STABLE. IV INFUSION COMPLETE. NO NEEDS TA THIS TIME. PT READY FOR DISCHARGE. Vital Signs: 17:37 BP 147 / 79; Pulse 65; Resp 17; Pulse Ox 100% ; Weight 127.01 kg; Height 6 ft. 2 in. ap3 (187.96 cm); 18:31 BP 141 / 72; Pulse 67; Resp 16; Pulse Ox 98% ; mb8 19:15 BP 139 / 74; Pulse 74; Resp 14; Pulse Ox 99% ; Pain 0/10; jj7 17:37 Body Mass Index 35.95 (127.01 kg, 187.96 cm) ap3 Vitals: 18:31 Cardiac Rhythm Assessment Sinus rhythm. mb8 ED Course: 17:29 Patient arrived in ED. dt4 17:34 Oleg Hunt MD is Attending Physician. jr11 17:40 Triage completed. ap3 17:41 Arm band placed on left wrist. ap3 17:46 Navarro Comer, MEGHANN is Primary Nurse. mb8 18:04 Patient has correct armband on for positive identification. Placed in gown. Bed in low mb8 position. Call light in reach. Side rails up X2. Client placed on continuous cardiac and pulse oximetry monitoring. NIBP monitoring applied. monitoring and evaluation advisor on. 18:04 No provider procedures requiring assistance completed. Inserted saline lock: 20 gauge mb8 in left antecubital area, using aseptic technique. Blood collected. 18:30 Basic Metabolic Panel Sent. mb8 18:30 CBC with Diff Sent. mb8 18:30 LFT's Sent. mb8 18:30 Magnesium Sent. mb8 18:30 XRAY Chest (1 view) Sent. mb8 19:25 IV discontinued, intact, bleeding controlled, No redness/swelling at site. jj7 Administered Medications: 19:34 Discontinued: NS 0.9% 500 ml IV at bolus once jj7 18:42 Drug: NS 0.9% 500 ml Route: IV; Rate: bolus; Site: left antecubital; mb8 Medication: 17:41 VIS not applicable for this client. ap3 Outcome: 18:44 Discharge ordered by . jr11 19:25 Discharged to home ambulatory, with significant other. jj7 19:25 Condition: improved 19:25 Discharge instructions given to patient, family. 19:33 Patient left the ED. jj7 Signatures: Celestina Hollingsworth RN RN ap3 Oleg Hunt MD MD jr11 Navarro Comer RN RN mb8 Deniz Coker RN RN jj7 Kristine King dt4
--- NOTE | 2021-11-10 18:45 | EDPHYS ---
Physician Documentation [facility] Name: Rhett Ayers Age: 45 yrs Sex: Male : 1975 Arrival Date: 11/10/2021 Time: 17:29 Bed 18 Private MD: ED Physician Oleg Hunt HPI: 11/10 17:45 This 45 yrs old Male presents to ER via Wheelchair with complaints of jr11 Dizziness, POSSIBLE SODIUM BUILD UP. 17:45 The patient presents with feeling faint, generalized weakness, lightheadedness, a sense jr11 of confusion. Onset: The symptoms/episode began/occurred yesterday. Context: almost ESRD, went drinking last weekend . Modifying factors: The symptoms are alleviated by nothing, the symptoms are aggravated by nothing. Associated signs and symptoms: Pertinent positives: nausea, Pertinent negatives: abdominal pain, vomiting. Severity of symptoms: At their worst the symptoms were moderate in the emergency department the symptoms are worse. h/o the same . Historical: - Allergies: 17:40 No Known Allergies; ap3 - PMHx: 17:40 compressed discs; Diabetes - NIDDM; gastric ulcer; Hypertension; Kidney stone; ap3 Orthostatic hypotension; PUD; CKD; - PSHx: 17:40 Cholecystectomy; Gatric Bypass; Ureter sx; ap3 - Immunization history:: Client reports receiving the 2nd dose of the Covid vaccine. - Social history:: Smoking status: Patient denies any tobacco usage or history of. Patient uses alcohol, occasionally. ROS: 17:45 Cardiovascular: Negative for chest pain, palpitations, and edema. jr11 17:45 All other systems are negative. Exam: 17:45 Constitutional: This is a well developed, well nourished patient who is awake, alert, jr11 and in no acute distress. Head/Face: Normocephalic, atraumatic. Eyes: Extra-ocular motions intact. Lids and lashes normal. Conjunctiva and sclera are non-icteric and not injected. Cornea within normal limits. Periorbital areas with no swelling, redness, or edema. ENT: Nares patent. No nasal discharge, no septal abnormalities noted. Oropharynx with no redness, swelling, or masses, exudates, or evidence of obstruction, uvula midline. Mucous membranes moist. Neck: Trachea midline, no thyromegaly or masses palpated, and no cervical lymphadenopathy. Supple, full range of motion without nuchal rigidity, or vertebral point tenderness. No Meningismus. Chest/axilla: Normal chest wall appearance and motion. Nontender with no deformity. No lesions are appreciated. Cardiovascular: Regular rate and rhythm with a normal S1 and S2. No gallops, murmurs, or rubs. Normal PMI, no JVD. No pulse deficits. Respiratory: diminished at the bases Abdomen/GI: Soft, non-tender, with normal bowel sounds. No distension or tympany. No guarding or rebound. No evidence of tenderness throughout. Skin: Warm, dry with normal turgor. Normal color with no rashes, no lesions, and no evidence of cellulitis. MS/ Extremity: Pulses equal, no cyanosis. Neurovascular intact. Full, normal range of motion. Vital Signs: 17:37 BP 147 / 79; Pulse 65; Resp 17; Pulse Ox 100% ; Weight 127.01 kg; Height 6 ft. 2 in. ap3 (187.96 cm); 18:31 BP 141 / 72; Pulse 67; Resp 16; Pulse Ox 98% ; mb8 19:15 BP 139 / 74; Pulse 74; Resp 14; Pulse Ox 99% ; Pain 0/10; jj7 17:37 Body Mass Index 35.95 (127.01 kg, 187.96 cm) ap3 MDM: 17:42 Patient medically screened. jr11 17:45 Differential diagnosis: generalized weakness, electrolyte abnormalities . Data [facility] reviewed: vital signs, nurses notes. ED course: Patient is a 45-year-old that is near end-stage renal, has a history of electrolyte abnormalities that have him feeling lightheaded dizzy with slight confusion. Will check electrolytes, reassess. Patient otherwise is well-appearing alert and oriented x4.. 18:06 ED course: EKG interpreted by me shows normal sinus rhythm, normal axis, normal jr intervals, no acute ST changes.. 18:41 ED course: Pt with slight electrolyte derangements but not significant enough for [facility] admission, will get via PCP in 3 days again, return if worsening, slight volume depletion . 11/10 17:42 Order name: Basic Metabolic Panel jr11 11/10 17:42 Order name: CBC with Diff jr11 11/10 17:42 Order name: LFT's jr11 11/10 17:42 Order name: Magnesium jr 11/10 18:11 Order name: CBC with Automated Diff; Complete Time: 18:22 EDMS 11/10 18:35 Order name: Basic Metabolic Panel; Complete Time: 18:36 EDMS 11/10 17:42 Order name: XRAY Chest (1 view) [facility] 11/10 17:42 Order name: EKG; Complete Time: 17:43 [facility] 11/10 17:42 Order name: Cardiac monitoring; Complete Time: 18:30 [facility] 11/10 17:42 Order name: EKG - Nurse/Tech; Complete Time: 18:30 [facility] 11/10 18:35 Order name: Liver (Hepatic) Function; Complete Time: 18:36 EDMS 11/10 18:35 Order name: Magnesium; Complete Time: 18:36 EDMS 11/10 19:11 Order name: RAD EDMS 11/10 17:42 Order name: IV Saline Lock; Complete Time: 18:30 [facility] 11/10 17:42 Order name: Labs collected and sent; Complete Time: 18:30 [facility] 11/10 17:42 Order name: O2 Per Protocol; Complete Time: 18:30 [facility] 11/10 17:42 Order name: O2 Sat Monitoring; Complete Time: 18:30 [facility] Administered Medications: 19:34 Discontinued: NS 0.9% 500 ml IV at bolus once jj7 18:42 Drug: NS 0.9% 500 ml Route: IV; Rate: bolus; Site: left antecubital; mb8 Disposition Summary: 11/10/21 18:44 Discharge Ordered Location: Home jr Condition: Stable jr11 Diagnosis - Weakness jr11 - Dehydration jr11 Discharge Instructions: - Dehydration, Adult jr11 - Weakness jr11 - Discharge Summary Sheet mb8 - Fatigue jr11 Forms: - Medication Reconciliation Form jr11 - Thank You Letter jr11 - SBAR form mb8 - Antibiotic Education jr11 - Prescription Opioid Use jr11 Signatures: Dispatcher [employer] EDCelestina Paulino RN RN ap3 Oleg Hunt MD MD jr11 Navarro Comer RN RN mb8
--- NOTE | 2021-11-10 19:11 | RAD REPORT ---
EXAM DESCRIPTION: RAD - Chest Single View - 11/10/2021 6:35 pm CLINICAL HISTORY: electrolyte, esrd COMPARISON: Portable 12/20/2020 TECHNIQUE: AP portable chest image was obtained 11/10/2021 6:35 pm . FINDINGS: Patient has a chronic interstitial lung pattern is accentuated by shallow inspiration. The re is additional interstitial thickening and alveolar opacification in the right lung field. No dense consolidation seen. Heart size is similar to comparison. Central vasculature is mildly prominent. No measurable pleural effusion and no pneumothorax. No acute bony abnormality seen. No acute aortic findings suspected. IMPRESSION: Asymmetrically prominent interstitial and alveolar opacification worse on the right. Right-sided pneumonia is suspected. The patient could have asymmetric presentation of a failure or vo lume overload process.
[2021-11-10 19:47] VITALS: BP 139/74; O2SAT 99
--- NOTE | 2021-11-12 07:54 | EKG ---
Test Date: 2021-11-10 Test Time: 17:59:04 [employer]: LOPEZ MEASUREMENT RESULTS: Intervals: Rate: 66 [place]: 182 QRSD: 84 QT: 358 QTc: 375 [place]: P: 42 NJ: 182 QRS: 44 T: 34 INTERPRETIVE STATEMENTS: Normal sinus rhythm Junctional ST depression, probably normal Borderline ECG Compared to ECG 09/10/2021 17:18:04 ST (T wave) deviation now present Electronically Signed On 11-12-21 07:48:37 CDT by Gigi Bedolla
== END 2021-11-10 19:33 | disposition home or self-care (01) ==
LOC: ER 17:24
DX: E86.0 Dehydration (principal); R53.1 Weakness; E11.9 Type 2 diabetes mellitus without complications; I10 Essential (primary) hypertension; I95.1 Orthostatic hypotension; N18.9 Chronic kidney disease, unspecified
CPT/HCPCS: 93005; 85025; 80048; 36415; 83735; 80076; 71045; 99284; J7040

== ENCOUNTER 2021-12-23 03:05 | Emergency (ER) | payer OTHER ==
--- OUTSIDE RECORDS SUMMARY | 2021-12-23 03:12 | XMS REPORT | Continuity of Care Document ---
:1975 Author Organization [facility] t Address [facility] [place] [address] Care Team Providers Name Role Phone Evie Gusman MD Primary Care Physician [phone] MIRA BEDOYA Attending Clinician Unavailable ED SAMS Attending Clinician Unavailable CAROLINE VALLE Attending Clinician Unavailable ALMAS JACOB Attending Clinician Unavailable Almas Jacob MD Attending Clinician Doctor Unassigned, Gilead Attending Clinician Unavailable LAB90 Attending Clinician Unavailable Evie Gusman MD Attending Clinician [phone] EVIE GUSMAN Attending Clinician Unavailable ANDRÉS CHAUDHRY Attending Clinician Unavailable Isidoro SCRUGGS, Andrés Jean Attending Clinician Renetta ZAVALETA, Mickie Dejesus Attending Clinician BROOKS GIRALDO Attending Clinician Unavailable BOROKS GIRALDO Attending Clinician Unavailable Quinton ASHER, Jelly Attending Clinician Herrera Yoo DO Attending Clinician DIANNA JOHNSON Attending Clinician Unavailable SHAHEEN CACERES Attending Clinician Unavailable Neftali Parker MD Attending Clinician RYDER NAHTAN Attending Clinician Unavailable JASON MONTAÑO Attending Clinician Unavailable Alex SCRUGGS, Dianna Holguin Attending Clinician FIDEL GARCIA Attending Clinician Unavailable Guzman Oliva DO Attending Clinician Fidel Garcia MD Attending Clinician MARY ESPANA Attending Clinician Unavailable LAB47 Attending Clinician Unavailable Diego Martin MD Attending Clinician AMARJIT LEO Attending Clinician Unavailable NEY CARRILLO Attending Clinician Unavailable Ryder Nathan MD Attending Clinician Leonard ASHER-CCaroline Attending Clinician MD GEOVANNI Attending Clinician Unavailable CARMENCITA WASHINGTON Attending Clinician Unavailable LAB45 Attending Clinician Unavailable Amarjit Leo MD Attending Clinician Jack Montaño Attending Clinician Unavailable JOSE GUEVARA Attending Clinician Unavailable TEODORO HEARD Attending Clinician Unavailable Felicia Bar Attending Clinician Sharita Sanchez DO Attending Clinician Teodoro Heard MD Attending Clinician Kim Ba NP Attending Clinician Cici Watson MD Attending Clinician CICI WATSON Attending Clinician Unavailable HERRERA YOO Attending Clinician Unavailable Nurse, Adc Pob Immunization Attending Clinician Unavailable LOS MARRERO Attending Clinician Unavailable Lisha Portillo MD Attending Clinician LISHA PORTILLO Attending Clinician Unavailable MAYA LANGLEY Attending Clinician Unavailable HERRERA YOO Admitting Clinician Unavailable Herrera Yoo DO Admitting Clinician FIDEL GARCIA Admitting Clinician Unavailable Fidel Garcia MD Admitting Clinician Caroline Valle Admitting Clinician Unavailable SHARITA SANCHEZ Admitting Clinician Unavailable Sharita Sanchez DO Admitting Clinician Cici Watson MD Admitting Clinician CICI WATSON Admitting Clinician Unavailable MAYA LANGLEY Admitting Clinician Unavailable Payers Payer Name Policy Type Policy Number Effective Date Expiration Date S [facility] 2 [id number] 2021 [facility] 00:00:00 [employer] M[employer]IC [id number] 2021 00:00:00 BCBS 2 [id number] 2021 00:00:00 [place] [id number] [address] [place] [id number] 00:00:00 Problems Condition Condition Condition Status Onset Resolution Last Treating Co mments Source Name Details Category Date Date Treatment Clinician Date 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, ulcer, 00:00: [place] left left 00 Medical Branch Symptomati Symptomati Disease Active U nivers c c 5-09 ity of bradycardi bradycardi [place] [facility] [place] 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 5-09 ity of kidney kidney 00:00: [place] disease disease 00 Medical Branch Major Major Disease Active [place] 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 disorder disorder 00:00: 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 00 remission remission Iron Iron Disease Active [place] deficiency deficiency 1-27 [facility] [place] anemia anemia 00:00: secondary secondary 00 to to inadequate inadequate dietary dietary iron iron intake intake Intestinal Intestinal Disease Active K elsemargaret malabsorpt malabsorpt 03-06 [facility] [place] ion ion [...] kidney 2-06 ity of injury) injury) 00:00: [place] [address] Medical Branch Obesity Obesity Disease Active 2020-02 Univers (BMI (BMI 2-06 ity of 30-39.9) 30-39.9) 00:00: [place] [address] Medical Branch Primary Primary Disease Active 2020-02 Univers hypertensi hypertensi 2-06 it y of on on 00:00: [place] [address] Medical Branch Type 2 Type 2 Disease Active 2020-02 Univers diabetes diabetes 2 ity of mellitus mellitus 00:00: [place] without without 00 Medical complicati complicati Br anch on, on, without without long-term long-term current current use of use of insulin insulin Elevated Elevated Disease Active 2020-02 Unive rs brain brain 2 ity of natriureti natriureti [place] c peptide c peptide 00 Medi damien (BNP) (BNP) Branch level level Anemia Anemia Disease Active 2020-02 Univers 2-06 ity of 00:00: [place] [address] Medical Branch Hyperkalem Hyperkalem Disease Active 2020-02 U nivers ia ia 03-15 ity of 00:00: [address] Allergies, Adverse Reactions, Alerts Allergy Allergy Status Severity Reaction(s) Onset Inactive Treating Comm ents Source Name Type Date Date Clinician No Known DA Active [facility] 06-04 [place] [facility] 00:00: d nces 00 Medical [place] NO KNOWN Drug Active [facility] ALLERGIE Class ity of S [facility] Social History Social Habit Start Date Stop Date Quantity Comments Source Exposure to 2021-11-22 2021-12-02 Not sure [facility] SARS-CoV-2 00:00:00 08:34:00 [facility] (event) Branch Alcohol intake 2021-06-25 2021-06-25 Ex-drinker [place] antonio 00:00:00 00:00:00 (finding) Tobacco use and 2021-06-04 2021-06-04 Smokeless tobacco Ez Brady exposure 00:00:00 00:00:00 non-user Sex Ass[birth year] At [birth year] [facility] kes 00:00:00 [facility]:00:00 [facility] Smoking Status Start Date Stop Date Source Tobacco smoking consumption unknown [facility] Never smoked tobacco [place] Medications Ordered Filled Start Stop Current Ordering Indication Dosage Frequency Signature Comments Components Source Medication Medication Date Date Medication? Clinician (SIG) Name Name PREDNISOLON 2021-[id number] Univers E ACETATE 1 0- 338375 (1) DROP it y of % 00:00: INTO LEFT [place] ophthalmic 00 EYE FOUR Medic al suspension TIMES Branch drops DAILY. PREDNISOLON 2021-[id number] ONE Univers E ACETATE 1 0-06 529353 (1) DROP it y of % 00:00: INTO LEFT [place] ophthalmic 00 EYE FOUR Medic al suspension TIMES Branch drops DAILY. PREDNISOLON 2021-[id number] ONE Univers E ACETATE 1 0-06 801254 (1) DROP it y of % 00:00: INTO LEFT [place] ophthalmic 00 EYE FOUR Medic al suspension TIMES Branch drops DAILY. PREDNISOLON 2021-[id number] ONE Univers E ACETATE 1 0-06 650146 (1) DROP it y of % 00:00: INTO LEFT [place] ophthalmic 00 EYE FOUR Medic al suspension TIMES Branch drops DAILY. PREDNISOLON Yes [id number] PLACE ONE Univers E ACETATE 1 9-13 284248 (1) DROP it y of % 00:00: INTO LEFT [place] ophthalmic 00 EYE FOUR Medic al suspension TIMES Branch drops DAILY. PREDNISOLON 2021- No [id number] PLACE ONE Univers E ACETATE 1 9-13 10- 391196 (1) DROP i ty of % 00:00: 00:00 INTO LEFT [place] ophthalmic 00 :00 EYE FOUR Medic al suspension TIMES Branch drops DAILY. MOXIFLOXACI Yes [id number] INSTILL Univers N 0.5 % 09-3002 ONE (1) ity of ophthalmic 00:00: [place] drops 00 LEFT EYE Medical FOUR TIMES Branch DAILY. MOXIFLOXACI Yes [id number] INSTILL Univers N 0.5 % 09-3002 ONE (1) ity of ophthalmic 00:00: [place]OP [place] drops 00 LEFT EYE Medical FOUR TIMES Branch DAILY. MOXIFLOXACI Yes [id number] INSTILL Univers N 0.5 % 09-30 9102 ONE (1) ity of ophthalmic 00:00: DROP [place] drops 00 LEFT EYE Medical FOUR TIMES Branch DAILY. MOXIFLOXACI 0 Yes [id number] INSTILL Univers N 0.5 % 09-3002 ONE (1) ity of ophthalmic 00:00: DROP [place] drops 00 LEFT EYE Medical FOUR TIMES Branch DAILY. MOXIFLOXACI Yes [id number] INSTILL Univers N 0.5 % 8 9102 ONE (1) ity of ophthalmic 00:00: DROP [place] drops 00 LEFT EYE Medical FOUR TIMES Branch DAILY. MOXIFLOXACI 2021-0 Yes [id number] INSTILL Univers N 0.5 % 8 9102 ONE (1) ity of ophthalmic 00:00: DROP [place] drops 00 LEFT EYE Medical FOUR TIMES Branch DAILY. prednisoLON 2021-0 Yes [id number] 1[drp] Place 1 Univers E acetate 8- 579248 Drop in ity o f (PRED 00:00: left eye 4 [place] FORTE) 1 % 00 (four) Medical ophthalmic times Branch suspension daily. drops prednisoLON 2021-0 2021- No [id number] 1[drp] Place 1 Univers E acetate 8-11 16- 812644 Drop in ity of (PRED 00:00: 00:00 left eye 4 [place] FORTE) 1 % 00 :00 (four) Medical ophthalmic times Branch suspension daily. drops ketorolac 2021-0 Yes [id number] 1[drp] Place 1 Univers 0.5 % 6-07 9102 Drop in ity of ophthalmic 00:00: left eye 4 [place] solution 00 (four) Medical times Branch daily. ketorolac 2021-0 Yes [id number] 1[drp] Place 1 Univers 0.5 % 6-07 9102 Drop in ity of ophthalmic 00:00: left eye 4 [place] solution 00 (four) Medical times Branch daily. ketorolac 2021-0 Yes [id number] 1[drp] Place 1 Univers 0.5 % 6-07 9102 Drop in ity of ophthalmic 00:00: left eye 4 [place] solution 00 (four) Medical times Branch daily. ketorolac 2021-0 Yes [id number] 1[drp] Place 1 Univers 0.5 % 6-07 9102 Drop in ity of ophthalmic 00:00: left eye 4 [place] solution 00 (four) Medical times Branch daily. ketorolac 2021-0 Yes [id number] 1[drp] Place 1 Univers 0.5 % 6-07 9102 Drop in ity of ophthalmic 00:00: left eye 4 [place] solution 00 (four) Medical times Branch daily. ketorolac Yes [id number] 1[drp] Place 1 Univers 0.5 % 6-07 9102 Drop in ity of ophthalmic 00:00: left eye 4 [place] solution 00 (four) Medical times Branch daily. hydroCHLORO Yes [id number] 25mg Take 2 Univers thiazide 5-29 9102 capsules ity of 12.5 mg 00:00: by mouth [place] capsule 00 daily. Medical Branch hydroCHLORO Yes [id number] 25mg Take 2 Univers thiazide 5-29 9102 capsules ity of 12.5 mg 00:00: by mouth [place] capsule 00 daily. Medical Branch hydroCHLORO Yes [id number] 25mg Take 2 Univers thiazide 5-29 9102 capsules ity of 12.5 mg 00:00: by mouth [place] capsule 00 daily. Medical Branch hydroCHLORO Yes [id number] 25mg Take 2 Univers thiazide 5-29 9102 capsules ity of 12.5 mg 00:00: by mouth [place] capsule 00 daily. Medical Branch hydroCHLORO Yes [id number] 25mg Take 2 Univers thiazide 5-29 9102 capsules ity of 12.5 mg 00:00: by mouth [place] capsule 00 daily. Medical Branch hydroCHLORO 0 Yes [id number] 25mg Take 2 Univers thiazide 5-29 9102 capsules ity of 12.5 mg 00:00: by mouth [place] capsule 00 daily. Medical Branch tiZANidine Yes 6mg Take 6 mg Un luz marina 2 mg 5-28 by mouth ity of capsule 17:49: every 6 [place] [address] (six) Medical hours. Branch FLUoxetine Yes 40mg Take 40 mg U nivers 40 mg 5-28 by mouth ity of capsule 17:49: daily. [place] [address] Medical Branch naloxegoL 0 Yes 25mg Take 25 mg Un luz marina (MOVANTIK) 5-28 by mouth ity o f 25 mg Tab 17:49: daily. [place] [address] Medical Branch ferrous 0 Yes 325mg Take [...] needed for Pain (scale 7-10). doxepin HCl 0 Yes 75mg Take 75 mg Univers (DOXEPIN 5-28 by mouth ity of ORAL) 17:49: every [place] 34 evening. Medical Branch morphine ER 0 Yes 15mg Take 15 mg Univers 15 mg 12 hr 5-28 by mouth ity of tablet 17:49: daily. [place] [address] Medical Branch docusate 0 Yes 100mg Take [...] mouth ity of capsule 17:49: every 6 [place] 34 (six) Medical hours. Branch FLUoxetine 0 Yes 40mg Take 40 mg U nivers 40 mg 5-28 by mouth ity of capsule 17:49: daily. [place] [address] Medical Branch naloxegoL 0 Yes 25mg Take 25 mg Un luz marina (MOVANTIK) 5-28 by mouth ity o f 25 mg Tab 17:49: daily. [place] [address] Medical Branch ferrous 0 Yes 325mg Take [...] needed for Pain (scale 7-10). doxepin HCl 0 Yes 75mg Take 75 mg Univers (DOXEPIN 5-28 by mouth ity of ORAL) 17:49: every [place] 34 evening. Medical Branch morphine ER 0 Yes 15mg Take 15 mg Univers 15 mg 12 hr 5-28 by mouth ity of tablet 17:49: daily. [place] [address] Medical Branch docusate 0 Yes 100mg Take [...] needed for Nausea and Vomiting (N/V). tiZANidine Yes 6mg Take 6 mg Un luz [place] 2 mg 5-28 by mouth ity of capsule 17:49: every 6 [place] 34 (six) Medical hours. Branch FLUoxetine Yes 40mg Take 40 mg U nivers 40 mg 5-28 by mouth ity of capsule 17:49: daily. [place] [address] Medical Branch naloxegoL Yes 25mg Take 25 mg Un luz [place] (MOVANTIK) 5-28 by mouth ity o f 25 mg Tab 17:49: daily. [place] [address] Medical Branch ferrous 0 Yes 325mg Take [...] needed for Pain (scale 7-10). doxepin HCl 0 Yes 75mg Take 75 mg Univers (DOXEPIN 5-28 by mouth ity of ORAL) 17:49: every [place] 34 evening. Medical Branch morphine ER 0 Yes 15mg Take 15 mg Univers 15 mg 12 hr 5-28 by mouth ity of tablet 17:49: daily. [place] [address] Medical Branch docusate Yes 100mg Take 100 [...] needed for Nausea and Vomiting (N/V). tiZANidine Yes 6mg Take 6 mg Un luz [place] 2 mg 5-28 by mouth ity of capsule 17:49: every 6 [place] 34 (six) Medical hours. Branch FLUoxetine Yes 40mg Take 40 mg U nivers 40 mg 5-28 by mouth ity of capsule 17:49: daily. [place] [address] Medical Branch naloxegoL Yes 25mg Take 25 mg Un luz mar[place] (MOVANTIK) 5-28 by mouth ity o f 25 mg Tab 17:49: daily. [place] [address] Medical Branch ferrous Yes 325mg Take 325 [...] by mouth ity of ORAL) 17:49: every [place] 34 evening. Medical Branch morphine ER 0 Yes 15mg Take 15 mg Univers 15 mg 12 hr 5-28 by mouth ity of tablet 17:49: daily. [place] [address] Medical Branch docusate Yes 100mg Take 100 Univ ers 100 mg 5-28 mg by ity of capsule 17:49: mouth [place] 34 daily. Medical Branch nystatin Yes Apply to Univ ers 100,000 5-28 area(s) 2 ity of unit/gram 17:49: (two) [place] cream 34 times Medical daily. Branch ondansetron Yes 4mg Take 4 mg U nivers 4 mg 5-28 by mouth ity of disintegrat 17:49: every 8 Sukhjinder as ing tablet 34 (eight) Medica l hours as Branch needed for Nausea and Vomiting (N/V). tiZANidine Yes 6mg Take 6 mg Un luz [place] 2 mg 5-28 by mouth ity of capsule 17:49: every 6 [place] 34 (six) Medical hours. Branch FLUoxetine Yes 40mg Take 40 mg U nivers 40 mg 5-28 by mouth ity of capsule 17:49: daily. [place] [address] Medical Branch naloxegoL Yes 25mg Take 25 mg Un luz [place] (MOVANTIK) 5-28 by mouth ity o f 25 mg Tab 17:49: daily. [place] [address] Medical Branch ferrous Yes 325mg Take 325 [...] by mouth ity of ORAL) 17:49: every [place] 34 evening. Medical Branch morphine ER Yes 15mg Take 15 mg Univers 15 mg 12 hr 5-28 by mouth ity of tablet 17:49: daily. [place] [address] Medical Branch docusate Yes 100mg Take 100 [...] needed for Nausea and Vomiting (N/V). tiZANidine Yes 6mg Take 6 mg Un luz [place] 2 mg 5-28 by mouth ity of capsule 17:49: every 6 [place] 34 (six) Medical hours. Branch FLUoxetine Yes 40mg Take 40 mg U nivers 40 mg 5-28 by mouth ity of capsule 17:49: daily. [place] [address] Medical Branch naloxegoL Yes 25mg Take 25 mg Un luz [place] (MOVANTIK) 5-28 by mouth ity o f 25 mg Tab 17:49: daily. [place] [address] Medical Branch ferrous Yes 325mg Take 325 [...] by mouth ity of ORAL) 17:49: every [place] 34 evening. Medical Branch morphine ER Yes 15mg Take 15 mg Univers 15 mg 12 hr 5-28 by mouth ity of tablet 17:49: daily. [place] [address] Medical Branch docusate Yes 100mg Take 100 [...] Nausea and Vomiting (N/V). natamycin 5 Yes [id number] 1[drp] Place 1 Univers % 5-28 9102 Drop in ity of ophthalmic 00:00: left eye Sukhjinder as suspension 00 every 2 Medica l drops (two) Branch hours. erythromyci Yes [id number] .5[in_u Place 0.5 Univers n 5 mg/gram 5-28 9102 s] Inches in ity of (0.5 %) 00:00: left eye [place] ophthalmic 00 at Medical ointment bedtime. Branch hydrALAZINE Yes [id number] 5mg Take 0.5 Univers 10 mg 5-28 9102 tablets by ity of tablet 00:00: mouth 2 [place] 00 (two) Medical times Branch daily. natamycin 5 Yes [id number] 1[drp] Place 1 Univers % 5-28 9102 Drop in ity of ophthalmic 00:00: left eye Sukhjinder as suspension 00 every 2 Medica l drops (two) Branch hours. erythromyci Yes [id number] .5[in_u Place 0.5 Univers n 5 mg/gram 5-28 9102 s] Inches in ity of (0.5 %) 00:00: left eye [place] ophthalmic 00 at Medical ointment bedtime. Branch hydrALAZINE Yes [id number] 5mg Take 0.5 Univers 10 mg 5-28 9102 tablets by ity of tablet 00:00: mouth 2 (two) Medical times Branch daily. natamycin 5 0 Yes [id number] 1[drp] Place 1 Univers % 5-28 9102 Drop in ity of ophthalmic 00:00: left eye Sukhjinder as suspension 00 every 2 Medica l drops (two) Branch hours. erythromyci 0 Yes [id number] .5[in_u Place 0.5 Univers n 5 mg/gram 5-28 9102 s] Inches in ity of (0.5 %) 00:00: left eye [place] ophthalmic 00 at Medical ointment bedtime. Branch hydrALAZINE Yes [id number] 5mg Take 0.5 Univers 10 mg 5-28 9102 tablets by ity of tablet 00:00: mouth 2 [place] 00 (two) Medical times Branch daily. natamycin 5 2021-0 Yes [id number] 1[drp] Place 1 Univers % 5-28 9102 Drop in ity of ophthalmic 00:00: left eye Sukhjinder as suspension 00 every 2 Medica l drops (two) Branch hours. erythromyci Yes [id number] .5[in_u Place 0.5 Univers n 5 mg/gram 5-28 9102 s] Inches in ity of (0.5 %) 00:00: left eye [place] ophthalmic 00 at Medical ointment bedtime. Branch hydrALAZINE Yes [id number] 5mg Take 0.5 Univers 10 mg 5-28 9102 tablets by ity of tablet 00:00: mouth 2 [place] 00 (two) Medical times Branch daily. natamycin 5 Yes [id number] 1[drp] Place 1 Univers % 5-28 9102 Drop in ity of ophthalmic 00:00: left eye Sukhjinder as suspension 00 every 2 Medica l drops (two) Branch hours. erythromyci Yes [id number] .5[in_u Place 0.5 Univers n 5 mg/gram 5-28 9102 s] Inches in ity of (0.5 %) 00:00: left eye [place] ophthalmic 00 at Medical ointment bedtime. Branch hydrALAZINE Yes [id number] 5mg Take 0.5 Univers 10 mg 5-28 9102 tablets by ity of tablet 00:00: mouth 2 (two) Medical times Branch daily. natamycin 5 Yes [id number] 1[drp] Place 1 Univers % 5-28 9102 Drop in ity of ophthalmic 00:00: left eye Sukhjinder as suspension 00 every 2 Medica l drops (two) Branch hours. erythromyci Yes [id number] .5[in_u Place 0.5 Univers n 5 mg/gram 5-28 9102 s] Inches in ity of (0.5 %) 00:00: left eye [place] ophthalmic 00 at Medical ointment bedtime. Branch hydrALAZINE Yes [id number] 5mg Take 0.5 Univers 10 mg 5-28 9102 tablets by ity of tablet 00:00: mouth 2 [place] 00 (two) Medical times Branch daily. HYDROcodone 2022-0 Yes [id number] Take by [place] -Acetaminop 5-18 mouth [place] hen 10-325 11:11: MG oral 20 Tablet Metoprolol 2021-0 Yes [id number] 50mg TAKE 1 K elsey Tartrate 50 5-09 TABLET (50 Se ybold MG oral 00:00: MG TOTAL) Tablet 00 BY MOUTH IN THE MORNING AND 1 TABLET (50 MG TOTAL) IN THE EVENING. hydroCHLORO 2021-0 Yes [id number] 25mg TAKE 1 [place] thiazide 25 5-09 TABLET (25 Se ybold MG oral 00:00: MG TOTAL) Tablet 00 BY MOUTH DAILY. Metoprolol 2021-0 Yes [id number] 50mg TAKE 1 K elsey Tartrate 50 5-09 TABLET (50 Se ybold MG oral 00:00: MG TOTAL) Tablet 00 BY MOUTH IN THE MORNING AND 1 TABLET (50 MG TOTAL) IN THE EVENING. hydroCHLORO 2021-0 Yes [id number] 25mg TAKE 1 [place] thiazide 25 5-09 TABLET (25 Se ybold MG oral 00:00: MG TOTAL) Tablet 00 BY MOUTH DAILY. Nystatin 2021-0 Yes [id number] APPLY 1 [place] [id number] 4-28 APPLICATIO Seybold UNIT/GM 00:00: N apply 00 TOPICALLY externally 3 TIMES Powder DAILY. Nystatin 2021-0 Yes [id number] APPLY 1 [place] [id number] 4-28 APPLICATIO [place] UNIT/GM 00:00: N apply 00 TOPICALLY externally 3 TIMES Powder DAILY. HYDROcodone 2021-0 Yes [id number] Take by [place] -Acetaminop 4-15 mouth [place] hen 10-325 11:36: MG oral 16 Tablet HYDROcodone 2021-0 Yes [id number] Take by [place] -Acetaminop 4-15 mouth [place] hen 10-325 11:36: MG oral 16 Tablet Acarbose 50 2021-0 Yes Take one [place] MG oral 4-13 tablet Seybold Tablet 00:00: daily 00 before largest meal of the day Acarbose 50 2021-0 Yes Take one [place] MG oral 4-13 tablet Seybold Tablet 00:00: daily 00 before largest meal of the day Acarbose 50 2021-0 Yes Take one [place] MG oral 4-13 tablet Seybold Tablet 00:00: daily 00 before largest meal of the day Methylpredn 2021-0 2021- No [id number] 40mg [place] isolone 05-16 [place] Acetate 16:45: 16:37 (Depo-Medro 00 :00 l) 40 mg/ml - Physician Administere d (J1030) Methylpredn 2021-0 202- No [id number] 40mg 40 mg, [place] isolone 05-16 Physician Seybol d Acetate 16:45: 16:37 Administer (Depo-Medro 00 :00 ed, ONCE, l) 40 mg/ml 1 dose, On - Physician 05/16/21 Administere at 1145 d (J1030) HYDROcodone Yes [id number] Take by [place] -Acetaminop -08 mouth [place]bold hen 10-325 10:52: MG oral 25 Tablet HYDROcodone Yes [id number] Take by [place] -Acetaminop 3- mouth [place] hen 10-325 09:51: MG oral 33 Tablet hydroCHLORO Yes [id number] 25mg Take 1 [place] thiazide 25 3-29 tablet (25 Se ybold MG oral 00:00: mg total) Tablet 00 by mouth daily Nystatin Yes [id number] Apply 1 [place] [id number] 3-29 applicatio Seybold UNIT/GM 00:00: n apply 00 topically externally 3 times Powder daily Ondansetron Yes [id number] 4mg Q.[id number] Take 1 [place] (Zofran 3-29 [id number] tablet (4 S eybold ODT) 4 MG 00:00: 3D mg total) oral TABLET 00 by mouth DISPERSIBLE every 8 hours as needed for nausea hydroCHLORO Yes [id number] 25mg Take 1 [place] thiazide 25 3-29 tablet (25 Se ybold MG oral 00:00: mg total) Tablet 00 by mouth daily Nystatin Yes [id number] Apply 1 [place] [id number] 3-29 applicatio Seybold UNIT/GM 00:00: n apply 00 topically externally 3 times Powder daily Ondansetron Yes [id number] 4mg Q.[id number] Take 1 [place] (Zofran 3-29 [id number] tablet (4 S eybold ODT) 4 MG 00:00: 3D mg total) oral TABLET 00 by mouth DISPERSIBLE every 8 hours as needed for nausea hydroCHLORO 2021-0 Yes [id number] 25mg Take 1 [place] thiazide 25 3-29 tablet (25 Se ybold MG oral 00:00: mg total) Tablet 00 by mouth daily Nystatin 2021-0 Yes [id number] Apply 1 Ez chaidezey [id number] 3- applicatio Seybold UNIT/GM 00:00: n apply 00 topically externally 3 times Powder daily Ondansetron 0 Yes [id number] 4mg Q.[id number] Take 1 [place] (Zofran 3-29 [id number] tablet (4 S eybold ODT) 4 MG 00:00: 3D mg total) oral TABLET 00 by mouth DISPERSIBLE every 8 hours as needed for nausea Ondansetron 2021-0 Yes [id number] 4mg Q.[id number] Take 1 [place] (Zofran 3-29 [id number] tablet (4 S eybold ODT) 4 MG 00:00: 3D mg total) oral TABLET 00 by mouth DISPERSIBLE every 8 hours as needed for nausea Ondansetron 0 Yes [id number] 4mg Q.[id number] Take 1 [place] (Zofran 3-29 [id number] tablet (4 S eybold ODT) 4 MG 00:00: 3D mg total) oral TABLET 00 by mouth DISPERSIBLE every 8 hours as needed for nausea HYDROcodone 0 Yes [id number] Take by [place] -Acetaminop 3-25 mouth [place] hen 10-325 10:27: MG oral 08 Tablet Pantoprazol 2021-0 Yes [place] childs Sodium 40 3-25 Seybold MG oral 00:00: Tablet 00 Delayed Response Pantoprazol 2021-0 Yes [place] childs Sodium 40 3-25 Seybold MG oral 00:00: Tablet 00 Delayed Response Pantoprazol 2021-0 Yes [place] childs Sodium 40 3-25 Seybold MG oral 00:00: Tablet 00 Delayed Response Pantoprazol 2021-0 Yes [place] e Sodium 40 3-25 Seybold MG oral 00:00: Tablet 00 Delayed Response Pantoprazol 2021-0 Yes [place] e Sodium 40 3-25 Seybold MG oral 00:00: Tablet 00 Delayed Response Cosyntropin 2021- No [id number] .25mg [place] (CORTROSYN) 04-30 [place]bold 0.25 mg 14:15: 14:21 00 :00 Cosyntropin 2021- No [id number] .25mg 0.25 mg, [place] (CORTROSYN) 04-30 intramuscu S eybold 0.25 mg 14:15: 14:21 lar, ONCE, 00 :00 1 dose, On Wed04/30/21 at 0915 Tizanidine 2021- No [id number] every 6 [place] HCl 2 MG 04-30 (six) Seybold oral 08:46: 00:00 hours Capsule 51 :00 HYDROcodone Yes [id number] Take by [place] -Acetaminop 04-30 mouth [place] hen 10-325 08:46: MG oral 49 Tablet Sodium Yes [place] Bicarbonate 3-20 Seybold 325 MG oral 00:00: Tablet 00 Sodium 0 Yes [place] Bicarbonate 3-20 Seybold 325 MG oral 00:00: Tablet 00 Sodium 0 2021- No [place] Bicarbonate 3-20 03-29 Seybold [...] ) does not apply Misc Metoprolol Yes [id number] 50mg Take 1 K elsey Tartrate 50 3-08 tablet (50 Se ybold MG oral 00:00: mg total) Tablet 00 by mouth in the morning and 1 tablet (50 mg total) in the evening. Docusate Yes [id number] 100mg Take 100 [place] Sodium 100 3-08 mg by Seybold MG oral 00:00: mouth 2 Tablet 00 times daily Metoprolol Yes [id number] 50mg Take 1 K elsey Tartrate 50 3-08 tablet (50 Se ybold MG oral 00:00: mg total) Tablet 00 by mouth in the morning and 1 tablet (50 mg total) in the evening. Docusate Yes [id number] 100mg Take 100 [place] Sodium 100 3-08 mg by Seybold MG oral 00:00: mouth 2 Tablet 00 times daily Metoprolol Yes [id number] 50mg Take 1 K elsey Tartrate 50 3-08 tablet (50 Se ybold MG oral 00:00: mg total) Tablet 00 by mouth in the morning and 1 tablet (50 mg total) in the evening. Docusate Yes [id number] 100mg Take 100 [place] Sodium 100 3-08 mg by Seybold MG oral 00:00: mouth 2 Tablet 00 times daily Metoprolol Yes [id number] 50mg Take 1 K elsey Tartrate 50 3-08 tablet (50 Se ybold MG oral 00:00: mg total) Tablet 00 by mouth in the morning and 1 tablet (50 mg total) in the evening. Docusate Yes [id number] 100mg Take 100 [place] Sodium 100 3-08 mg by Seybold MG oral 00:00: mouth 2 Tablet 00 times daily Metoprolol Yes [id number] 50mg Take 1 K elsey Tartrate 50 3-08 tablet (50 Se ybold MG oral 00:00: mg total) Tablet 00 by mouth in the morning and 1 tablet (50 mg total) in the evening. Docusate Yes [id number] 100mg Take 100 [place] Sodium 100 3-08 mg by Seybold MG oral 00:00: mouth 2 Tablet 00 times daily Docusate Yes [id number] 100mg Take 100 [place] Sodium 100 3-08 mg by Seybold MG oral 00:00: mouth 2 Tablet 00 times daily Docusate Yes [id number] 100mg Take 100 [place] Sodium 100 3-08 mg by Seybold MG oral 00:00: mouth 2 Tablet 00 times daily Tizanidine Yes [id number] every 6 [place]enne HCl 2-28 (six) Seybold (Zanaflex) 08:53: hours 2 MG oral 51 Capsule HYDROcodone Yes [id number] Take by [place] -Acetaminop 2-28 mouth Seybold hen 10-325 08:53: MG oral 32 Tablet Fluoxetine 2021- No [id number] Take by [place] HCl 20 MG 2-24 02-24 mouth 2 Seybol d oral 15:04: 00:00 times Capsule 25 :00 daily Metformin 2021- No [id number] 1000mg Take 1,000 [place] HCl 1000 MG 2-23 02-23 mg by Seybol d oral Tablet 10:44: 00:00 mouth 42 :00 daily Continuous Yes [id number] Check K elsey Blood Gluc 2-23 Seybold Sensor 00:00: (Dexcom G6 00 Sensor) does not apply Misc Continuous Yes [id number] Check K elsey Blood Gluc 2-23 sugar 4 Seybol d 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:00: times (Dexcom G4 00 daily and [place] as needed Rcv/Share) does not apply Device Continuous Yes [id number] Check K elsey Blood Gluc 2-23 Seybold Sensor 00:00: (Dexcom G6 00 Sensor) does not apply Misc Continuous 2022-0 Yes [id number] Check K elsey Blood Gluc 2-23 sugar 4 Seybol d 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:00: times (Dexcom G4 00 daily and [place] as needed Rcv/Share) does not apply Device Continuous 2022-0 Yes [id number] Check K elsey Blood Gluc 2-23 Seybold Sensor 00:00: (Dexcom G6 00 Sensor) does not apply Misc Continuous 2022-0 Yes [id number] Check K elsey Blood Gluc 2-23 sugar 4 Seybol d 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:00: times (Dexcom G4 00 daily and [place] as needed Rcv/Share) does not apply Device Continuous 2022-0 Yes [id number] Check K elsey Blood Gluc 2-23 Seybold Sensor 00:00: (Dexcom G6 00 Sensor) does not apply Misc Continuous 2022-0 Yes [id number] Check K elsey Blood Gluc 2-23 sugar 4 Seybol d 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:00: times (Dexcom G4 00 daily and [place] as needed Rcv/Share) does not apply Device Continuous 2022-0 Yes [id number] Check K elsey Blood Gluc 2-23 Seybold Sensor 00:00: (Dexcom G6 00 Sensor) does not apply Misc Continuous 2022-0 Yes [id number] Check K elsey Blood Gluc 2-23 sugar 4 Seybol d 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:00: times (Dexcom G4 00 daily and [place] as needed Rcv/Share) does not apply Device Continuous 2022-0 Yes [id number] Check K elsey Blood Gluc 2-23 Seybold Sensor 00:00: (Dexcom G6 00 Sensor) does not apply Misc Continuous 2022-0 Yes [id number] Check K elsey Blood Gluc 2-23 sugar 4 Seybol d 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:00: times (Dexcom G4 00 daily and [place] as needed Rcv/Share) does not apply Device Continuous 2022-0 Yes [id number] Check K elsey Blood Gluc 2-23 Seybold Sensor 00:00: (Dexcom G6 00 Sensor) does not apply Misc Continuous 2022-0 Yes [id number] Check K elsey Blood Gluc 2-23 sugar 4 Seybol d 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:00: times (Dexcom G4 00 daily and [place] as needed Rcv/Share) does not apply Device Continuous 2021-0 Yes [id number] Check K elsey Blood Gluc 2-23 Seybold Sensor 00:00: (Dexcom G6 00 Sensor) does not apply Misc Continuous 2021-0 Yes [id number] Check K elsey Blood Gluc 2-23 sugar 4 Seybol d 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:00: times (Dexcom G4 00 daily and [place] as needed Rcv/Share) does not apply Device Continuous 2021-0 Yes [id number] Check K elsey Blood Gluc 2-23 Seybold Sensor 00:00: (Dexcom G6 00 Sensor) does not apply Misc Continuous 2021-0 Yes [id number] Check K elsey Blood Gluc 2-23 sugar 4 Seybol d 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:00: times (Dexcom G4 00 daily and [place] as needed Rcv/Share) does not apply Device Docusate 0 Yes [place] Sodium 100 2-22 Seybold MG oral 00:00: Capsule 00 Docusate 2021-0 Yes [place] Sodium 100 2-22 Seybold MG oral 00:00: Capsule 00 Docusate 2021-0 2022- No [place] Sodium 100 2-22 03-23 Seybold MG oral 00:00: 00:00 Capsule 00 :00 Lisinopril 2-0 2022- No Cheyenne 40 MG oral 2-22 02-24 [...] 00:00: mouth Capsule 00 daily Amlodipine 0 Yes 10mg Take 10 mg K elsey Besylate 10 2-18 by mouth Seyb old MG oral 00:00: daily Tablet 00 Tamsulosin Yes 1{capsu Take 1 Ke lsey HCl 0.4 MG 2-18 le} capsule by Sey bold oral 00:00: mouth Capsule 00 daily Amlodipine 0 Yes 10mg Take 10 mg K elsey Besylate 10 2-18 by mouth Seyb old MG oral 00:00: daily Tablet 00 Tamsulosin 0 Yes 1{capsu Take 1 Ke [...] 10mg Take 10 mg [place] Besylate 10 2-18 -29 by mouth Sey bold MG oral 00:00: 00:00 daily Tablet 00 :00 Metoprolol 2021-0 Yes [id number] TAKE 1 K elsey Tartrate 50 2-17 TABLET BY Sey bold MG oral 00:00: MOUTH 2 Tablet 00 TIMES DAILY Tizanidine 2021-0 Yes TAKE 3 Kelse y HCl 2 MG 2-17 TABLETS BY Seybo ld oral Tablet 00:00: MOUTH 00 EVERY 6 HOURS Metoprolol 2021-0 Yes [id number] TAKE 1 K elsey Tartrate 50 2-17 [...] mouth Seybol d oral 00:00: daily Capsule 00 Fluoxetine Yes 40mg Take 40 mg K elsey HCl 40 MG 2-11 by mouth Seybol d oral 00:00: daily Capsule 00 Fluoxetine Yes 40mg Take 40 mg K elsey HCl 40 MG 2-11 by mouth Seybol d oral 00:00: daily Capsule 00 Doxepin HCl Yes TAKE 1 Wanda ey [...] BY 00 MOUTH DAILY AT BEDTIME Fluoxetine Yes [id number] Take by [place] HCl 20 MG 1-27 mouth 2 Seybold oral 08:05: times Capsule 51 daily Metformin Yes [id number] 1000mg Take 1,000 [place] HCl 1000 MG 1-27 mg by Seybold oral Tablet 08:05: mouth 32 daily HYDROcodone 2021-0 Yes [id number] Take by [place] -Acetaminop 1-27 mouth Seybold hen 10-325 08:05: MG oral 25 Tablet Tizanidine 2021-0 Yes [id number] every 6 [place] HCl 1-27 (six) Seybold (Zanaflex) 08:05: hours 2 MG oral 25 Capsule HYDROcodone 0 Yes [id number] Take by [place] -Acetaminop 1-27 mouth Seybold hen 10-325 08:05: MG oral 25 Tablet Tizanidine 0 Yes [id number] every 6 [place] HCl 1-27 (six) Seybold (Zanaflex) 08:05: hours 2 MG oral 25 Capsule Docusate 0 Yes [id number] 100mg Take 100 [place] Sodium 100 1-26 mg by Seybold MG oral 00:00: mouth 2 Tablet 00 times daily Sennosides 0 Yes [id number] 1{capsu Take 1 [place] (Senna) 8.6 1-26 le} capsule by Se ybold MG oral 00:00: mouth Capsule 00 daily Docusate 0 Yes [id number] 100mg Take 100 [place] Sodium 100 1-26 mg by Seybold MG oral 00:00: mouth 2 Tablet 00 times daily Sennosides 0 Yes [id number] 1{capsu Take 1 [place] (Senna) 8.6 1-26 le} capsule by Se ybold MG oral 00:00: mouth Capsule 00 daily Sennosides 2021-0 Yes [id number] 1{capsu Take 1 [place] (Senna) 8.6 1-26 le} capsule by Se ybold MG oral 00:00: mouth Capsule 00 daily Sennosides 2021-0 Yes [id number] 1{capsu Take 1 [place] (Senna) 8.6 1-26 le} capsule by Se ybold MG oral 00:00: mouth Capsule 00 daily Sennosides 2021-0 Yes [id number] 1{capsu Take 1 [place] (Senna) 8.6 1-26 le} capsule by Se ybold MG oral 00:00: mouth Capsule 00 daily Sennosides Yes [id number] 1{capsu Take 1 [place] (Senna) 8.6 1-26 le} capsule by Se ybold MG oral 00:00: mouth Capsule 00 daily Sennosides 0 Yes [id number] 1{capsu Take 1 [place] (Senna) 8.6 1-26 le} capsule by Se ybold MG oral 00:00: mouth Capsule 00 daily Sennosides 0 Yes [id number] 1{capsu Take 1 [place] (Senna) 8.6 1-26 le} capsule by Se ybold MG oral 00:00: mouth Capsule 00 daily Metoprolol 0 Yes [id number] 50mg Take 1 K elsey Tartrate 50 1-26 tablet (50 Se ybold MG oral 00:00: mg total) Tablet 00 by mouth 2 times daily Sennosides Yes [id number] 1{capsu Take 1 [place] (Senna) 8.6 1-26 le} capsule by Se ybold MG oral 00:00: mouth Capsule 00 daily Docusate 0 Yes [id number] 100mg Take 100 [place] Sodium 100 1-26 mg by Seybold MG oral 00:00: mouth 2 Tablet 00 times daily Sennosides 0 Yes [id number] 1{capsu Take 1 [place] (Senna) 8.6 1-26 le} capsule by Se ybold MG oral 00:00: mouth Capsule 00 daily Gabapentin 2022-0 Yes [id number] Ke lsey 800 MG oral 1-24 Seybold Tablet 00:00: 00 Gabapentin 2022-0 Yes [id number] Ke lsey 800 MG oral 1-24 Seybold Tablet 00:00: 00 Gabapentin 2022-0 Yes [id number] Ke lsey 800 MG oral 1-24 Seybold Tablet 00:00: 00 Gabapentin 2022-0 Yes [id number] Ke lsey 800 MG oral 1-24 Seybold Tablet 00:00: 00 Gabapentin 2022-0 Yes [id number] Ke lsey 800 MG oral 1-24 Seybold Tablet 00:00: 00 Gabapentin 2022-0 Yes [id number] Ke lsey 800 MG oral 1-24 Seybold Tablet 00:00: 00 Gabapentin 2022-0 Yes [id number] Ke lsey 800 MG oral 1-24 Seybold Tablet 00:00: 00 Gabapentin 2022-0 Yes [id number] Ke lsey 800 MG oral 1-24 Seybold Tablet 00:00: 00 Gabapentin 2022-0 Yes [id number] Ke lsey 800 MG oral 1-24 Seybold Tablet 00:00: 00 Gabapentin 2022-0 Yes [id number] Ke lsey 800 MG oral 1-24 Seybold Tablet 00:00: 00 Morphine 2022-0 Yes [id number] Wanda ey Sulfate ER 1-15 Seybold 15 MG oral 00:00: Tab CR 00 Morphine 2022-0 Yes [id number] Wanda ey Sulfate ER 1-15 Seybold 15 MG oral 00:00: Tab CR 00 Morphine 2022-0 Yes [id number] Wanda ey Sulfate ER 1-15 Seybold 15 MG oral 00:00: Tab CR 00 Morphine 2022-0 Yes [id number] Wanda ey Sulfate ER 1-15 Seybold 15 MG oral 00:00: Tab CR 00 Morphine 2022-0 Yes [id number] Wanda ey Sulfate ER 1-15 Seybold 15 MG oral 00:00: Tab CR 00 Morphine 2022-0 Yes [id number] Wanda ey Sulfate ER 1-15 Seybold 15 MG oral 00:00: Tab CR 00 Morphine 2022-0 Yes [id number] Wanda ey Sulfate ER 1-15 Seybold 15 MG oral 00:00: Tab CR 00 Morphine 2022-0 Yes [id number] Wanda ey Sulfate ER 1-15 Seybold 15 MG oral 00:00: Tab CR 00 Morphine 2022-0 Yes [id number] Wanda ey Sulfate ER 1-15 Seybold 15 MG oral 00:00: Tab CR 00 Morphine 2022-0 Yes [id number] Wanda ey Sulfate ER 1-15 Seybold 15 MG oral 00:00: Tab CR 00 Doxepin HCl 2022-0 Yes [id number] Ke lsey 25 MG oral 1-12 Seybold Capsule 00:00: 00 Doxepin HCl 2022-0 Yes [id number] Ke lsey 25 MG oral 1-12 Seybold Capsule 00:00: 00 Doxepin HCl 2022-0 Yes [id number] Ke lsey 25 MG oral 1-12 Seybold Capsule 00:00: 00 Doxepin HCl 2022-0 2022- No [id number] K elsey 25 MG oral -01 10- Seybold Capsule 00:00: 00:00 00 :00 Lokelma 10 2-0 Yes [id number] Cole sey g oral Pack 1-10 Seybold 00:00: 00 Lokelma 10 2-0 Yes [id number] Cole sey g oral Pack 1-10 Seybold 00:00: 00 Lokelma 10 2-0 Yes [id number] Coel sey g oral Pack 1-10 Seybold 00:00: 00 Lokelma 10 2-0 Yes [id number] Cole sey g oral Pack 1-10 Seybold 00:00: 00 Lokelma 10 2-0 Yes [id number] Cole sey g oral Pack 1-10 Seybold 00:00: 00 Lokelma 10 2-0 Yes [id number] Cole sey g oral Pack 1-10 Seybold 00:00: 00 Lokelma 10 2-0 Yes [id number] Cole sey g oral Pack 1-10 Seybold 00:00: 00 Lokelma 10 2-0 Yes [id number] Cole sey g oral Pack 1-10 Seybold 00:00: 00 Lokelma 10 2-0 Yes [id number] Cole sey g oral Pack 1-10 Seybold 00:00: 00 Lokelma 10 2-0 Yes [id number] Cole sey g oral Pack 1-10 Seybold 00:00: 00 Sodium 2022-0 2023- No [id number] 650mg Take 650 K elsey Bicarbonate 1-10 -11 mg by Seybol d 650 MG oral 00:00: 05:59 mouth 3 Tablet 00 :00 times daily Sodium 2022-0 2023- No [id number] 650mg Take 650 K elsey Bicarbonate 1-10 -11 mg by Seybol d 650 MG oral 00:00: 05:59 mouth 3 Tablet 00 :00 times daily Sodium 2022-0 2023- No [id number] 650mg Take 650 K elsey Bicarbonate 1-10 -11 mg by Seybol d 650 MG oral 00:00: 05:59 mouth 3 Tablet 00 :00 times daily Sodium 2021-0 2023- No [id number] 650mg Take 650 K elsey Bicarbonate 1-10 01-11 mg by Seybol d 650 MG oral 00:00: 05:59 mouth 3 Tablet 00 :00 times daily Sodium 2021-0 3- No [id number] 650mg Take 650 K elsey Bicarbonate 1-10 01-11 mg by Seybol d 650 MG oral 00:00: 05:59 mouth 3 Tablet 00 :00 times daily Sodium 2021-0 3- No [id number] 650mg Take 650 K elsey Bicarbonate 1-10 01-11 mg by Seybol d 650 MG oral 00:00: 05:59 mouth 3 Tablet 00 :00 times daily Sodium 2021-0 3- No [id number] 650mg Take 650 K elsey Bicarbonate 1-10 01-11 mg by Seybol d 650 MG oral 00:00: 05:59 mouth 3 Tablet 00 :00 times daily Sodium 2021-0 3- No [id number] 650mg Take 650 K elsey Bicarbonate 1-10 01-11 mg by Seybol d 650 MG oral 00:00: 05:59 mouth 3 Tablet 00 :00 times daily Sodium 2021-0 3- No [id number] 650mg Take 650 K elsey Bicarbonate 1-10 01-11 mg by Seybol d 650 MG oral 00:00: 05:59 mouth 3 Tablet 00 :00 times daily Sodium 2021-0 3- No [id number] 650mg Take 650 K elsey Bicarbonate 1-10 01-11 mg by Seybol d 650 MG oral 00:00: 05:59 mouth 3 Tablet 00 :00 times daily Movantik 25 2021-0 Yes [id number] K elsey MG oral 1-05 Seybold Tablet 00:00: 00 Movantik 25 2021-0 Yes [id number] K elsey MG oral 1-05 Seybold Tablet 00:00: 00 Movantik 25 2021-0 Yes [id number] K elsey MG oral 1-05 Seybold Tablet 00:00: 00 Movantik 25 2021-0 Yes [id number] K elsey MG oral 1-05 Seybold Tablet 00:00: 00 Movantik 25 2021-0 Yes [id number] K elsey MG oral 1-05 Seybold Tablet 00:00: 00 Movantik 25 2021-0 Yes [id number] K elsey MG oral 1-05 Seybold Tablet 00:00: 00 Movantik 25 2021-0 Yes [id number] K elsey MG oral 1-05 Seybold Tablet 00:00: 00 Movantik 25 2021-0 Yes [id number] K elsey MG oral 1-05 Seybold Tablet 00:00: 00 Movantik 25 2021-0 Yes [id number] K elsey MG oral 1-05 Seybold Tablet 00:00: 00 Movantik 25 2021-0 Yes [id number] K elsey MG oral 1-05 Seybold Tablet 00:00: 00 Ferrous 2020-02 Yes [id number] Kelse y Sulfate 325 2-26 Seybold (65 Fe) MG 00:00: oral Tablet 00 Ferrous 2020-02 Yes [id number] Kelse y Sulfate 325 2-26 Seybold (65 Fe) MG 00:00: oral Tablet 00 Ferrous 2020-02 Yes [id number] Kelse y Sulfate 325 2-26 Seybold (65 Fe) MG 00:00: oral Tablet 00 Ferrous 2020-02 Yes [id number] Kelse y Sulfate 325 2-26 Seybold (65 Fe) MG 00:00: oral Tablet 00 Ferrous 2020-02 Yes [id number] Kelse y Sulfate 325 2-26 Seybold (65 Fe) MG 00:00: oral Tablet 00 Ferrous 2020-02 Yes [id number] Kelse y Sulfate 325 2-26 Seybold (65 Fe) MG 00:00: oral Tablet 00 Ferrous 2020-02 Yes [id number] Kelse y Sulfate 325 2-26 Seybold (65 Fe) MG 00:00: oral Tablet 00 Ferrous 2020-02 Yes [id number] Kelse y Sulfate 325 2-26 Seybold (65 Fe) MG 00:00: oral Tablet 00 Ferrous 2020-02 Yes [id number] Kelse y Sulfate 325 2-26 Seybold (65 Fe) MG 00:00: oral Tablet 00 Ferrous 2020-02 Yes [id number] Kelse y Sulfate 325 2-26 Seybold (65 Fe) MG 00:00: oral Tablet 00 [facility] Vitamin 2020-02 Yes [id number] K elsey B12 1000 2-08 Seybold MCG oral 00:00: Tab CR 00 Magnesium 2020-02 Yes [id number] Wanda ey Oxide 420 2-08 Seybold MG oral 00:00: Tablet 00 [facility] Vitamin 2021-1 Yes [id number] K elsey B12 1000 2-08 Seybold MCG oral 00:00: Tab CR 00 Magnesium 2021-1 Yes [id number] Wanda ey Oxide 420 2-08 Seybold MG oral 00:00: Tablet 00 [facility] Vitamin 2021-1 Yes [id number] K elsey B12 1000 2-08 Seybold MCG oral 00:00: Tab CR 00 Magnesium 2021-1 Yes [id number] Wanda ey Oxide 420 2-08 Seybold MG oral 00:00: Tablet 00 [facility] Vitamin 2021-1 Yes [id number] K elsey B12 1000 2-08 Seybold MCG oral 00:00: Tab CR 00 Magnesium 2021-1 Yes [id number] Wanda ey Oxide 420 2-08 Seybold MG oral 00:00: Tablet 00 [facility] Vitamin 2021-1 Yes [id number] K elsey B12 1000 2-08 Seybold MCG oral 00:00: Tab CR 00 Magnesium 2021-1 Yes [id number] Wanda ey Oxide 420 2-08 Seybold MG oral 00:00: Tablet 00 [facility] Vitamin 2021-1 Yes [id number] K elsey B12 1000 2-08 Seybold MCG oral 00:00: Tab CR 00 Magnesium 2021-1 Yes [id number] Wanda ey Oxide 420 2-08 Seybold MG oral 00:00: Tablet 00 [facility] Vitamin 2021-1 Yes [id number] K elsey B12 1000 2-08 Seybold MCG oral 00:00: Tab CR 00 Magnesium 2021-1 Yes [id number] Wanda ey Oxide 420 2-08 Seybold MG oral 00:00: Tablet 00 [facility] Vitamin 2021-1 Yes [id number] K elsey B12 1000 2-08 Seybold MCG oral 00:00: Tab CR 00 [facility] Vitamin 2021-1 Yes [id number] K elsey B12 1000 2-08 Seybold MCG oral 00:00: Tab CR 00 Magnesium 2021-1 Yes [id number] Wanda ey Oxide 420 2-08 Seybold MG oral 00:00: Tablet 00 Magnesium 2021-1 Yes [id number] Wanda ey Oxide 420 2-08 Seybold MG oral 00:00: Tablet 00 [facility] Vitamin 2021-1 Yes [id number] K elsey B12 1000 2-08 Seybold MCG oral 00:00: Tab CR 00 Magnesium 2020-02 Yes [id number] Wanda ey Oxide 420 2-08 Seybold MG oral 00:00: Tablet 00 Ascorbic 2020-02 Yes [id number] 1{tbl} Take 1 [place] Acid 500 MG 1-22 tablet by Sey bold oral Tablet 00:00: mouth 2 00 times daily Ascorbic 2020-02 Yes [id number] 1{tbl} Take 1 [place] Acid 500 MG 1-22 tablet by Sey bold oral Tablet 00:00: mouth 2 00 times daily Ascorbic 2020-02 Yes [id number] 1{tbl} Take 1 [place] Acid 500 MG 1-22 tablet by Sey bold oral Tablet 00:00: mouth 2 00 times daily Ascorbic 2020-02 Yes [id number] 1{tbl} Take 1 [place] Acid 500 MG 1-22 tablet by Sey bold oral Tablet 00:00: mouth 2 00 times daily Ascorbic 2020-02 Yes [id number] 1{tbl} Take 1 [place] Acid 500 MG 1-22 tablet by Sey bold oral Tablet 00:00: mouth 2 00 times daily Ascorbic 2020-02 Yes [id number] 1{tbl} Take 1 [place] Acid 500 MG 1-22 tablet by Sey bold oral Tablet 00:00: mouth 2 00 times daily Ascorbic 2020-02 Yes [id number] 1{tbl} Take 1 [place] Acid 500 MG 1-22 tablet by Sey bold oral Tablet 00:00: mouth 2 00 times daily Ascorbic 2020-02 Yes [id number] 1{tbl} Take 1 [place] Acid 500 MG 1-22 tablet by Sey bold oral Tablet 00:00: mouth 2 00 times daily Ascorbic 2020-02 Yes [id number] 1{tbl} Take 1 [place] Acid 500 MG 1-22 tablet by Sey bold oral Tablet 00:00: mouth 2 00 times daily Ascorbic 2020-02 Yes [id number] 1{tbl} Take 1 [place] Acid 500 MG 1-22 tablet by Sey bold oral Tablet 00:00: mouth 2 00 times daily Amlodipine 2021- No [id number] 5mg Take 5 mg [place] Besylate 5 7-26 07-27 by mouth Seyb old MG oral 00:00: 04:59 daily Tablet 00 :00 Amlodipine 2021- No [id number] 5mg Take 5 mg [place] Besylate 5 09-02- by mouth Seyb old MG oral 00:00: 04:59 daily Tablet 00 :00 Amlodipine 2020-0 2021- No [id number] 5mg Take 5 mg [place] Besylate 5 09-02- by mouth Seyb old MG oral 00:00: 04:59 daily Tablet 00 :00 Amlodipine 2020-0 2- No [id number] 5mg Take 5 mg [place] Besylate 5 09-02- by mouth Seyb old MG oral 00:00: 04:59 daily Tablet 00 :00 Amlodipine 2020-0 2021- No [id number] 5mg Take 5 mg [place] Besylate 5 09-02- by mouth Seyb old MG oral 00:00: 04:59 daily Tablet 00 :00 Amlodipine 2020-0 2021- No [id number] 5mg Take 5 mg [place] Besylate 5 09-02-29 by mouth Seyb old MG oral 00:00: 00:00 daily Tablet 00 :00 gabapentin 2020-0 Yes 800mg Take 800 Un luz marina 800 mg 5-17 mg by ity of tablet 00:00: [facility] 00 every 6 Medical (six) Branch hours. gabapentin 2020-0 Yes 800mg Take 800 Un luz marina 800 mg 5-17 mg by ity of tablet 00:00: [facility] 00 every 6 Medical (six) Branch hours. gabapentin 2020-0 Yes 800mg Take 800 Un luz marina 800 mg 5-17 mg by ity of tablet 00:00: [facility] 00 every 6 Medical (six) Branch hours. gabapentin 2020-0 Yes 800mg Take 800 Un luz marina 800 mg 5-17 mg by ity of tablet 00:00: [facility] 00 every 6 Medical (six) Branch hours. gabapentin 2020-0 Yes 800mg Take 800 Un luz marina 800 mg 5-17 mg by ity of tablet 00:00: [facility] 00 every 6 Medical (six) Branch hours. gabapentin 2020-0 Yes 800mg Take 800 Un luz marina 800 mg 5-17 mg by ity of tablet 00:00: [facility] 00 every 6 Medical (six) Branch hours. Immunizations Ordered Immunization Filled Immunization Date Status Commen ts Source Name Name SARS-COV-2 COVID-19 2021-01-10 Completed [facility] [employer] VACCINE 00:00:00 [facility] SARS-COV-2 COVID-19 2021-01-10 Completed Unive rsity of PFIZER VACCINE 00:00:00 [facility] SARS-COV-2 COVID-19 2021-01-10 Completed Unive rsity of PFIZER VACCINE 00:00:00 [facility] SARS-COV-2 COVID-19 2021-01-10 Completed Unive rsity of PFIZER VACCINE 00:00:00 [facility] SARS-COV-2 COVID-19 2021-01-10 Completed Unive rsity of PFIZER VACCINE 00:00:00 [facility] SARS-COV-2 COVID-19 2021-01-10 Completed Unive rsity of PFIZER VACCINE 00:00:00 [facility] Covid-19 Vaccine 2021-01-10 Completed [place]enne S eybold [...] Completed Cheyenne S eybold ([employer]), Mrna-lnp, 00:00:00 [place] [facility], Pf, 30mcg/0.3ml,IM Covid-19 Vaccine 2021-01-10 Completed [...] Protein, Pf, 30mcg/0.3ml,IM SARS-COV-2 COVID-19 2020-04-27 Completed Unive rsity of PFIZER VACCINE 00:00:00 [facility] SARS-COV-2 COVID-19 2020-04-27 Completed Unive rsity of PFIZER VACCINE 00:00:00 [facility] SARS-COV-2 COVID-19 2020-04-27 Completed Unive rsity of PFIZER VACCINE 00:00:00 [facility] SARS-COV-2 COVID-19 2020-04-27 Completed Unive rsity of PFIZER VACCINE 00:00:00 [facility] SARS-COV-2 COVID-19 2020-04-27 Completed Unive rsity of PFIZER VACCINE 00:00:00 [facility] SARS-COV-2 COVID-19 2020-04-27 Completed Unive rsity of PFIZER VACCINE 00:00:00 [facility] Covid-19 Vaccine 2020-04-27 Completed Chey[place] S eybold [...] Covid-19 Vaccine 2020-04-27 Completed Cheyenne S eybold ([facility]), Mrna-lnp, 00:00:00 [place] Protein, Pf, 30mcg/0.3ml,IM Covid-19 Vaccine 2020-04-27 Completed Cheyenne S eybold ([facility]), Mrna-lnp, 00:00:00 [facility] Protein, Pf, 30mcg/0.3ml,IM Covid-19 Vaccine 2020-04-27 Completed Cheyenne S eybold ([facility]), Mrna-lnp, 00:00:00 [place] Protein, Pf, 30mcg/0.3ml,IM Covid-19 Vaccine 2020-04-27 Completed Cheyenne S eybold ([facility]), Mrna-lnp, 00:00:00 [place] Protein, Pf, 30mcg/0.3ml,IM Covid-19 Vaccine 2020-04-27 Completed Cheyenne S eybold ([facility]), Mrna-lnp, 00:00:00 [place] Protein, Pf, 30mcg/0.3ml,IM Covid-19 Vaccine 2020-04-27 Completed Cheyenne S eybold ([facility]), Mrna-lnp, 00:00:00 [place] Protein, Pf, 30mcg/0.3ml,IM Covid-19 Vaccine 2020-04-27 Completed Cheyenne S eybold ([facility]), Mrna-lnp, 00:00:00 No[place] Protein, Pf, 30mcg/0.3ml,IM Covid-19 Vaccine 2020-04-27 Completed Cheyenne S eybold ([facility]), Mrna-lnp, 00:00:00 Noam Protein, Pf, 30mcg/0.3ml,IM Covid-19 Vaccine 2020-04-27 Completed Cheyenne S eybold ([facility]), Mrna-lnp, 00:00:00 Noam Protein, Pf, 30mcg/0.3ml,IM Covid-19 Vaccine 2020-04-27 Completed Chyeenne S eybold ([facility]), Mrna-lnp, 00:00:00 Noam Protein, Pf, 30mcg/0.3ml,IM Covid-19 Vaccine 2020-04-27 Completed Cheyenne S eybold ([facility]), Mrna-lnp, 00:00:00 [place] Protein, Pf, 30mcg/0.3ml,IM Covid-19 Vaccine 2020-04-27 Completed Cheyenne Uriarte eybold ([facility]), Mrna-lnp, 00:00:00 [place] Protein, Pf, 30mcg/0.3ml,IM Covid-19 Vaccine 2020-04-27 Completed Cheyenne Uriarte eybold ([facility]), Mrna-lnp, 00:00:00 No[place] Protein, Pf, 30mcg/0.3ml,IM Covid-19 Vaccine 2020-04-27 Completed [facility] Uri[facility] (Pfizer), Mrna-lnp, 00:00:00 [facility] Protein, Pf, 30mcg/0.3ml,IM SARS-COV-2 COVID-19 2020-04-06 Completed [facility] PFIZER VACCINE 00:00:00 [facility] SARS-COV-2 COVID-19 2020-04-06 Completed [facility] of PFIZER VACCINE 00:00:00 [facility] SARS-COV-2 COVID-19 2020-04-06 Completed [facility] of PFIZER VACCINE 00:00:00 [facility] SARS-COV-2 COVID-19 2020-04-06 Completed Unive rsity of PFIZER VACCINE 00:00:00 [facility] SARS-COV-2 COVID-19 2020-04-06 Completed Unive rsity of PFIZER VACCINE 00:00:00 [facility] SARS-COV-2 COVID-19 2020-04-06 Completed Unive rsity of PFIZER VACCINE 00:00:00 [facility] Covid-19 Vaccine 2020-04-06 Completed Cheyenne Uriarte eybold (Pfizer), Mrna-lnp, 00:00:00 Noam Protein, Pf, 30mcg/0.3ml,IM Covid-19 Vaccine 2020-04-06 Completed Cheyenne Uriarte eybold (Pfizer), Mrna-lnp, 00:00:00 Noam Protein, Pf, 30mcg/0.3ml,IM Covid-19 Vaccine 2020-04-06 Completed Cheyenne Uriarte eybold (Pfizer), Mrna-lnp, 00:00:00 Noam Protein, Pf, 30mcg/0.3ml,IM Covid-19 Vaccine 2020-04-06 Completed Cheyenne Uriarte eybold (Pfizer), Mrna-lnp, 00:00:00 Noam Protein, Pf, 30mcg/0.3ml,IM Covid-19 Vaccine 2020-04-06 Completed Cheyenne S eybold (Pfizer), Mrna-lnp, 00:00:00 Noam Protein, Pf, 30mcg/0.3ml,IM Covid-19 Vaccine 2020-04-06 Completed Cheyenne S eybold (Pfizer), Mrna-lnp, 00:00:00 Noam Protein, Pf, 30mcg/0.3ml,IM Covid-19 Vaccine 2020-04-06 Completed Cheyenne S eybold ([facility]), Mrna-lnp, 00:00:00 Noam Protein, Pf, 30mcg/0.3ml,IM Covid-19 Vaccine 2020-04-06 Completed Cheyenne S eybold ([facility]), Mrna-lnp, 00:00:00 Noam Protein, Pf, 30mcg/0.3ml,IM Covid-19 [...] Covid-19 Vaccine 2020-04-06 Completed Cheyenne S eybold (allyve), Mrna-lnp, 00:00:00 Noam Protein, Pf, 30mcg/0.3ml,IM Influenza Virus 2018-11-01 Completed Universit y of Vaccine (3+ yrs) 00:00:00 [facility] Influenza Virus 2018-11-01 Completed Universit y of Vaccine 00:00:00 [facility] Influenza Virus 2018-11-01 Completed Universit y of Vaccine (3+ yrs) 00:00:00 [facility] Influenza Virus 2018-11-01 Completed Universit y of Vaccine 00:00:00 [facility] Influenza Virus 2018-11-01 Completed Universit y of Vaccine (3+ yrs) 00:00:00 [facility] Influenza Virus 2018-11-01 Completed Universit y of Vaccine 00:00:00 [facility] Influenza Virus 2018-11-01 Completed Universit y of Vaccine (3+ yrs) 00:00:00 [facility] Influenza Virus 2018-11-01 Completed Universit y of Vaccine 00:00:00 [facility] Influenza Virus 2018-11-01 Completed Universit y of Vaccine (3+ yrs) 00:00:00 [facility] Influenza Virus 2018-11-01 Completed Universit y of Vaccine 00:00:00 [facility] Influenza Virus 2018-11-01 Completed Universit y of Vaccine (3+ yrs) 00:00:00 [place] [facility] Influenza Virus 2018-11-01 Completed Universit y of Vaccine 00:00:00 [facility] Influenza, Seasonal, 2018-11-01 Completed Wanda ey Seybold [...] Vaccine, Unspecified 00:00:00 Formulation Pneumococcal 2018-09-08 Completed University o f Polysaccharide, 00:00:00 [facility] PPSV23 (PNEUMOVAX) Branch Pneumococcal 2018-09-08 Completed University o f Polysaccharide, 00:00:00 [place] [facility] PPSV23 (PNEUMOVAX) Branch Pneumococcal 2018-09-08 Completed University o f Polysaccharide, 00:00:00 [place] [facility] PPSV23 (PNEUMOVAX) Branch Pneumococcal 2018-09-08 Completed University o f Polysaccharide, 00:00:00 [place] [facility] PPSV23 (PNEUMOVAX) Branch Pneumococcal 2018-09-08 Completed University o f Polysaccharide, 00:00:00 [place] [facility] PPSV23 (PNEUMOVAX) Branch Pneumococcal 2018-09-08 Completed University o f Polysaccharide, 00:00:00 [place] [facility] PPSV23 (PNEUMOVAX) Branch Pneumococcal Vaccine, [...] Source Body weight 2021-10-08 14:40:00 120.203 kg [facility] BMI 2021-10-08 14:40:00 34.02 kg/m2 [facility] Systolic blood 2021-06-25 16:08:00 140 mm[Hg] Cheyenne Grimesold pressure Diastolic blood 2021-06-25 16:08:00 85 mm[Hg] Quan y Seybold pressure Heart rate 2021-06-25 16:08:00 60 /min Cheyenne romeo Respiratory rate 2021-06-25 16:08:00 18 /min Wanda [...] pressure Heart rate 2021-03-05 16:16:00 106 /min Cheynene Uriarte eybold Body temperature 2021-03-05 16:16:00 35.67 Carlyn Wanda ey Seybold Respiratory rate 2021-03-05 16:16:00 12 /min Wanda ey Seybold Body height 2021-03-05 16:16:00 188 cm Cheyenne Uriarte eybocinthia Body weight 2021-03-05 16:16:00 118.842 kg [place] Uriarte eybold BMI 2021-03-05 16:16:00 33.64 kg/m2 Che[place]enne bloodbocinthia Procedures Procedure Date / Time Performing Clinician Source Performed OPHTHALMOLOGY DIAGNOSTIC 2021-12-02 05:01:00 Doctor Unassigned, No [facility] TEST Name Medical Branch OU CORNEAL TOPOGRAPHY, 2021-12-02 00:00:00 Micah Serrano [facility] BOTH EYES Medical Branch HEPATITIS B SURFACE 2021-09-12 03:08:00 [facility] Medical ANTIGEN Center HEPATITIS B SURFACE 2021-09-12 03:08:00 [facility] ANTIBODY Center HEPATITIS B CORE 2021-09-12 03:08:00 [facility] ANTIBODY, TOTAL Center FUNGUS CULTURE 2021-06-26 02:23:00 [facility] RIGHT 2021-05-16 16:50:00 Ryder Nathan (ORTHO) KNEE ROUTINE 38 YEARS 2021-05-16 16:20:08 Ryder Nathan AND OLDER RIGHT HIPS BILATERAL 2021-04-07 16:58:39 Johnson, Vargasu Ezio Quinn Seybo ld LUMBAR SPINE 2 VIEWS 2021-04-07 16:54:49 Alex, Dianna Quinn Seybold LUMBAR SPINE 2021-04-07 16:45:43 Johnson, Meimargaretu Ezio Quinn Seybo ld FLEX/EXTENSION ONLY CERVICAL SPINE - 2 VIEW 2021-04-07 16:44:19 Dianan Johnson Seybrita URINALYSIS, ROUTINE 2021-04-02 17:46:00 Hundl, Caroline bloodbocinthia MICROSCOPIC EXAMINATION 2021-04-02 17:46:00 KimlCaroline PHOSPHORUS, SERUM 2021-04-02 17:27:00 HundlCaroline bold MAGNESIUM, SERUM 2021-04-02 17:27:00 HundlCaroline old COMP. METABOLIC PANEL 2021-04-02 17:27:00 Caroline Valle (14) Plan of Care Planned Activity Planned Date Details Comments Source Future Scheduled 2021-12-10 INFLUENZA VACCINE [facility] Test 05:45:32 [code = INFLUENZA VACCINE] Future Scheduled 2021-12-10 HEPATITIS B VACCINES [facility] Hospital Test 05:45:32 (1 of 3 - 3-dose series) [code = HEPATITIS B VACCINES (1 of 3 - 3-dose series)] Future Scheduled 2021-12-10 COLONOSCOPY SCREENING [facility] Hospital Test 05:45:32 [code = COLONOSCOPY SCREENING] Future Scheduled 2021-12-10 COVID-19 VACCINE (4 - [facility] Hospital Test 05:45:32 Booster for Pfizer series) [code = COVID-19 VACCINE (4 - Booster for Pfizer series)] Future Scheduled 2021-10-29 COVID-19 VACCINE (4 - [facility] Hospital Test 05:44:13 Booster for Pfizer series) [code = COVID-19 VACCINE (4 - Booster for Pfizer series)] Future Scheduled 2021-10-29 INFLUENZA VACCINE [facility] Test 05:44:13 [code = INFLUENZA VACCINE] Future Scheduled 2021-10-29 HEPATITIS B VACCINES Met [facility] Test 05:44:13 (1 of 3 - 3-dose series) [code = HEPATITIS B VACCINES (1 of 3 - 3-dose series)] Future Scheduled 2021-10-29 COLONOSCOPY SCREENING [facility] Test 05:44:13 [code = COLONOSCOPY SCREENING] Future Scheduled 2021-10-09 INFLUENZA VACCINE (#1) [facility] Test 00:00:00 [code = INFLUENZA Medical Ce nter VACCINE (#1)] Future Scheduled 2021-02-[address] [facility] Test 00:00:00 (12+) [code = Medical Center DEPRESSION SCREENING (12+)] Future Scheduled [address] [facility] Test 00:00:00 (procedure) [code = Medical Center 56750075] Future Scheduled 1992 DTAP/TDAP/TD VACCINES [facility] Test 00:00:00 (1 - Tdap) [code = Medical C enter DTAP/TDAP/TD VACCINES (1 - Tdap)] Future Scheduled 1991-12-18 HEPATITIS C [facility]CREENING [facility] Test 00:00:00 [code = HEPATITIS C Medical Center SCREENING] Future Scheduled 1974-06-16 COVID-19 VACCINE (#1) [facility] Test 00:00:00 [code = COVID-[address] VACCINE (#1)] Future Scheduled [address] [facility] Test 00:00:00 (combo) [code = CT Medical C enter Colonography (combo)] Future Scheduled [address] [facility] Test 00:00:00 malignant neoplasm of Medica l Center colon (procedure) [code = 276582391] Future Scheduled [address] [facility] Test 00:00:00 malignant neoplasm of Medica [facility] Center colon (procedure) [code = 660672669] Future Scheduled [address] [facility] Test 00:00:00 malignant neoplasm of Medica l Center colon (procedure) [code = 154649900] Future Scheduled [address] [facility] Test 00:00:00 malignant neoplasm of [facility] colon (procedure) [code = 485308484] Future Scheduled 1973 Sigmoidoscopy [code [facility] Test 00:00:00 Sigmoidoscopy] Medical Jocelyneamadeo bose Encounters Start End Encounter Admission Attending Care Care Encounter Source Date/Time Date/Time Type Type Clinicians Facility Department ID 2022-01-07 2022-01-07 Outpatient CHEYENNE BEDOYA [id number] [place] 10:00:00 10:00:00 AHMED Seybol awa 2021-12-24 2021-12-24 Outpatient R FLAQUITA [facility] [id number] Univers 10:00:00 10:00:00 ED lundy [facility] 2021-12-03 2021-12-03 Outpatient CHEYENNE VALLE [id number] [place] 09:00:00 09:00:00 CAROLINE almaraz 2021-12-02 2021-12-02 [facility] [id number] Univers 09:00:00 09:47:08 [facility] ity [facility] 2021-12-02 2021-12-02 [facility] 1.2.840.114 [id number] Univers 09:00:00 09:47:08 Visit [facility] 350.1.13.10 it y of EYE 4.2.7.2.686 [facility] [id number] [facility] 136 Branch 2021-12-02 2021-12-02 Outpatient CHEYENNE VALLE [id number] [place] 00:00:00 00:00:00 CAROLINE Brittybol awa 2021-12-02 2021-12-02 Orders Doctor TREJO 1.2.840.114 [id number] Univers 00:00:00 00:00:00 Only Unassigned, BA 350.1.13.10 ity of [place] [facility] 4.2.7.2.686 [facility] [id number] [facility] 009 Branch 2021-12-01 2021-12-01 Outpatient LAB90 CHEYENNE QUINN [id number] [place] 09:45:00 09:45:00 Seybol d 2021-12-01 2021-12-01 Outpatient LEONARD CHEY[place]NE QUINN [id number] [place] 09:00:00 09:00:00 CAROLINE Seybol d 2021-11-25 2021-11-25 Outpatient LEONARD CHEYENNE CHEYENNE [id number] [place] 09:00:00 09:00:00 CAROLINE Seybol awa 2021-11-13 2021-11-13 [facility] 1.2.840.114 [id number] Univers 00:00:00 00:00:00 [facility] 350.1.13.10 [place] [id number] [address] 2021-10-21 2021-10-21 [facility] 1.2.840.114 [id number] Univers 00:00:00 00:00:00 [facility] HEALTH 350.1.13.10 [place] [id number] [address] 2021-10-15 2021-10-15 Outpatient AOSM AOSM [id number] Sharon 00:00:00 00:00:00 [id number] Orthop e dic Sports Medicin e 2021-10-08 2021-10-08 Outpatient Tawana JACOB [facility] [id number] Univers 09:30:00 10:36:53 [facility] 2021-10-08 2021-10-08 Office Nidia [facility] 1.2.840.114 [id number] Univers 09:30:00 10:36:53 Visit [facility] 350.1.13.10 it y of EYE 4.2.7.2.686 [facility] [id number] [address] 2021-10-08 2021-10-08 Outpatient Tawana JACOB [facility] [id number] Univers 09:30:00 10:36:53 [facility] 2021-10-08 2021-10-08 Outpatient Tawana JACOB [facility] [id number] Univers 09:30:00 09:30:00 HUMAIR ity [facility] 2021-10-08 2021-10-08 Outpatient ELKE CHEY[place]NE QUINN [id number] [place] 08:00:00 08:00:00 MIRA Grimesol d 2021-10-08 2021-10-08 Orders Doctor MAYA 1.2.840.114 [id number] Univers 00:00:00 00:00:00 Only Unassigned, BA 350.1.13.10 ity of [place] [facility] 4.2.7.2.686 [facility] [id number] [address] 2021-10-03 2021-10-03 Outpatient LAB90 CHEYENNE QUINN [id number] [place] 10:35:00 10:35:00 Semiltonol awa 2021-09-30 2021-09-30 Refill ROBSON Jacob 1.2.840.114 [id number] Univers 00:00:00 00:00:00 [employer] HEALTH 350.1.13.10 it y of EYE 4.2.7.2.686 [facility] [id number] [address] 2021-09-25 2021-09-25 Outpatient LAB90 CHEYENNE QUINN [id number] [place] 09:50:00 09:50:00 Corneliool awa 2021-09-25 2021-09-25 Office Surendra Gusman 1.2.840.114 [id number] [place] 09:00:00 09:15:00 Visit Evie He 350.1.13.13 Se kristen [place] 1.2.7.2.686 [id number] 2021-09-25 2021-09-25 Outpatient CHEYENNE GUSMAN [id number] [place] 00:00:00 00:00:00 EVIE Grimesol awa 2021-09-24 2021-09-24 Outpatient R ROBSON JACOB [facility] [id number] Univers 13:30:00 14:26:29 HUMAIR ity [facility] 2021-09-24 2021-09-24 Office ROBSON Jacob 1.2.840.114 [id number] Univers 13:30:00 14:26:[address] [facility] 350.1.13.10 it y of EYE 4.2.7.2.686 [facility] [id number] [facility] 136 Branch 2021-09-22 2021-09-22 Outpatient CHEYENNE VALLE [id number] [place] 10:00:00 10:00:00 CAROLINE almaraz 2021-09-22 2021-09-22 Orders Doctor TREJO 1.2.840.114 [id number] Univers 00:00:00 00:00:00 Only Unassigned, BA 350.1.13.10 ity of [place] [facility] 4.2.7.2.686 [facility] [id number] [facility] 009 Branch 2021-09-17 2021-09-17 Outpatient LAB90 CHEYENNE QUINN [id number] [place] 09:45:00 09:45:00 Thomsa almaraz 2021-09-17 2021-09-17 Office Surendra Gusman 1.2.840.114 [id number] [place] 09:00:00 09:30:00 Visit Evie He 350.1.13.13 Se kristen [place] 1.2.7.2.686 [id number] 2021-09-12 2021-09-[address] [facility] [id number] [facility] [facility] [address] 00:00:00 00:00:00 [facility] 2021-09-11 2021-09-11 Outpatient CHEYENNE VALLE [id number] [place] 00:00:00 00:00:00 CAROLINE almaraz 2021-09-05 2021-09-05 Outpatient Tawana JACOB [facility] [id number] Univers 13:30:00 14:26:19 [facility] ity [facility] 2021-09-05 2021-09-05 Office Nidia MDPALLAVI 1.2.840.114 [id number] Univers 13:30:00 14:26:19 Visit [facility] 350.1.13.10 it y of EYE 4.2.7.2.686 [facility] [id number] [facility] 136 Branch 2021-09-05 2021-09-05 Outpatient Tawana JACOB [facility] [id number] Univers 13:30:00 13:30:00 [facility] ity [facility] 2021-08-27 2021-08-27 Patient Nidia [facility] 1.2.840.114 [id number] Univers 00:00:00 00:00:00 Secure Msg [employer] HEALTH 350.1.13.10 [place]2.7.2.[place] [id number] [address] 2021-08-27 2021-08-27 Orders Doctor MAYA 1.2.840.114 [id number] Univers 00:00:00 00:00:00 Only Unassigned, BA 350.1.13.10 ity of [place] [facility] 4.2.7.2.686 Sukhjinder as [id number] [address] 2021-08-22 2021-08-22 Outpatient R NIDIA [facility] [id number] Univers 14:00:00 14:54:52 HUMAIR ity [facility] 2021-08-22 2021-08-22 Office Nidia [facility] 1.2.840.114 [id number] Univers 14:00:00 14:54:52 Visit [facility] HEALTH 350.1.13.10 [place]2.[place].2.[place] [id number] [address] 2021-08-22 2021-08-22 Outpatient R NIDIA [facility] [id number] Univers 14:00:00 14:00:00 HUMAIR ity [facility] 2021-08-12 2021-08-12 Outpatient CHEYENNE VALLE [id number] [place] 00:00:00 00:00:00 CAROLINE almaraz 2021-08-08 2021-08-08 [facility] [id number] Univers 15:30:00 16:30:03 HUMAIR ity [facility] 2021-08-08 2021-08-08 Office Nidia [facility] 1.2.840.114 [id number] Univers 15:30:00 16:30:03 Visit [employer] HEALTH 350.1.13.10 [place] 4.2.7.2.[place] [id number] [address] 2021-08-08 2021-08-08 Outpatient Tawana JACOB, [facility] [id number] Univers 15:30:00 16:30:03 HUMAIR ity [facility] 2021-08-08 2021-08-08 Outpatient Tawana JACOB [facility] [id number] Univers 15:30:00 16:30:03 HUMAIR ity [facility] 2021-07-30 2021-07-30 Outpatient Tawana NIDIA [facility] [id number] Univers 10:30:00 10:30:00 HUMAIR ity [facility] 2021-07-22 2021-07-22 Outpatient CHEYENNE VALLE [id number] [place] 13:30:00 13:30:00 CAROLINE almaraz 2021-07-15 2021-07-15 Outpatient Tawana JACOB [facility] [id number] Univers 13:00:00 13:57:05 [facility] 2021-07-15 2021-07-15 Outpatient Tawana JACOB [facility] [id number] Univers 13:00:00 13:57:05 [facility] 2021-07-15 2021-07-15 Office Nidia [facility] 1.2.840.114 [id number] Univers 13:00:00 13:57:05 Visit [facility] 350.1.13.10 it y of EYE 4.2.7.2.686 [facility] [id number] [address] 2021-07-15 2021-07-15 Outpatient CHEYENNE VALLE [id number] [place] 00:00:00 00:00:00 CAROLINE almaraz 2021-07-14 2021-07-14 [facility] [id number] Univers 10:15:00 10:15:00 [facility] 2021-07-09 2021-07-09 Outpatient R ISIDORO [facility] [id number] Univers 15:15:00 16:31:00 ANDRÉS [facility] 2021-07-09 2021-07-09 Office Isidoro MDPALLAVI 1.2.840.114 [id number] Univers 15:15:00 16:31:00 Visit Andrés Jean MEG 350.1.13.10 ity of IALTY 4.2.7.2.686 [facility] [id number] [facility] AND [address] [facility] 2021-07-08 2021-07-08 Outpatient CHEYENNE VALLE [id number] [place] 00:00:00 00:00:00 CAROLINE almaraz 2021-07-08 2021-07-08 Transition FELIPA Jackson 1.2.840.114 [id number] Univers 00:00:00 00:00:00 of Care Mickie Francine MANCUSO 350.1.13.10 i ty of YOANDY 4.2.7.2.686 [facility] [id number] [facility] 403 Branch 2021-07-01 2021-07-05 [facility] TIFFANIE [id number] Univers 10:06:00 17:49:00 [facility] 2021-07-01 2021-07-05 Inpatient X ENZO [facility] TIFFANIE [id number] Univers 10:06:00 17:49:00 [facility] 2021-07-01 2021-07-05 [facility] Jelly Alcantara 1.2.840.11 [id number] Univers 10:06:00 17:49:00 Encounter Herrera Yoo 350.1.1 3.10 [facility]y [facility] 4.2.7.2.686 [place] [id number] [facility] 099 Branch 2021-07-02 2021-07-02 Outpatient DIANNA JOHNSON [id number] [place] 10:30:00 10:30:00 Corneliool awa 2021-07-02 2021-07-02 Outpatient Tawana JACOB [facility] [id number] Univers 09:15:00 09:15:00 HUMAIR itmargaret [facility] 2021-07-01 2021-07-01 Outpatient Tawana JACOB [facility] [id number] Univers 09:00:00 09:30:19 HUMAIR itmargaret [facility] 2021-07-01 2021-07-[address] [facility] 1.2.777.157 [id number] Univers 09:00:00 09:30:19 Visit [employer] Y 350.1.13.10 it y of NATIONAL 4.2.7.2.686 Sukhjinder as BANK [id number] [facility] BLDG. 136 Branch 2021-07-01 2021-07-01 Orders Doctor MAYA 1.2.840.114 [id number] Univers 00:00:00 00:00:00 Only Unassigned, BA 350.1.13.10 ity of [place] [facility] 4.2.7.2.686 Sukhjinder as [id number] [facility] 009 Branch 2021-06-30 2021-06-30 Telephone Nidia [facility] 1.2.123.953 [id number] Univers 00:00:00 00:00:00 [employer] HEALTH 350.1.13.10 it y of E[place] 4.2.7.2.686 [place] [facility] [id number] [facility] 136 [place] 2021-06-27 2021-06-27 [facility] [id number] Univers 14:00:00 14:00:00 HUMAIR ity [facility] 2021-06-26 2021-06-26 Outpatient CHEYENNE QUINN [id number] [place] 07:35:00 07:35:00 Seybol d 2021-06-26 2021-06-26 Outpatient CHEYENNE QUINN [id number] [place] 07:05:00 07:05:00 Seybol d 2021-06-26 2021-06-26 Outpatient CHEYENNE BEDOYA [id number] [place] 07:00:00 07:00:00 AHMED Seybol d 2021-06-26 2021-06-26 Outpatient CHEYENNE CACERES [id number] [place] 00:00:00 00:00:00 SHAHEEN vicente 2021-06-25 2021-06-25 Lab Keith, 1.2.840.1 [id number] Oral 21:20:00 21:25:[address] [facility] 3.430.2.7 Hospit a .3.209062 l .8 2021-06-25 2021-06-25 Lab Keith, 1.2.840.1 [id number] Methodi 21:20:00 21:25:[address] [facility] 3.430.2.7 Hospit a .3.626122 l .8 2021-06-25 2021-06-25 Office KORIN NATHAN 1.2.840.114 [id number] [place] 11:20:00 11:20:00 Visit [facility] 350.1.13.13 Se ybold 1.2.7.2.686 [id number] 2021-06-25 2021-06-25 Outpatient CHEYENNE MONTAÑO [id number] [place] 00:00:00 00:00:00 ADRGUILLERMINA Seybol d 2021-06-25 2021-06-25 Travel 1.2.840.1 [id number] [id number] Methodi 00:00:00 00:00:[address] 3.430.2.7 0.2.7.3.698 Ho spita .3.471218 084.8 l .8 2021-06-25 2021-06-25 Travel 1.2.840.1 1.2.899.512 [id number] Methodi 00:00:00 00:00:[address] 3.430.2.7 0.2.7.3.698 Ho spita .3.459699 084.8 l .8 2021-06-23 2021-06-23 Outpatient CHEYENNE BEDOYA [id number] [place] 00:00:00 00:00:00 AHMED Seybol d 2021-06-20 2021-06-20 Telemedici Dianna Johnson 1.2.840.11 [id number] [place] 10:15:00 10:26:50 ne T D 350.1.13.13 Se ybold 1.2.7.2.686 [id number] 2021-06-16 2021-06-17 Outpatient X [facility] [id number] [facility] 06:11:00 14:35:00 FIDEL lundy [facility] 2021-06-16 2021-06-17 Emergency Guzman Oliva [facility] 1.2.840. [id number] [facility] 06:11:00 14:35:00 [facility]686 [facility] [id number] [place] [id number] [place] 2021-06-16 2021-06-16 Outpatient DIANNA JOHNSON [id number] [place] 15:15:00 15:15:00 Seybol d 2021-06-16 2021-06-16 Outpatient CHEYENNE VALLE [id number] [place] 00:00:00 00:00:00 CAROLINE Seybol d 2021-06-14 2021-06-14 Outpatient CHEY[place]NE VALLE [id number] [place] 00:00:00 00:00:00 CAROLINE Seybol d 2021-06-07 2021-06-07 Outpatient CHEYENNE NATHAN [id number] [place] 00:00:00 00:00:00 RYDER Seybol d 2021-06-07 2021-06-07 Outpatient DIANNA JOHNSON [id number] [place] 00:00:00 00:00:00 Seybol d 2021-06-05 2021-06-05 Outpatient CHEYENNE BEDOYA [id number] [place] 09:02:00 09:02:00 AHMED Seybol d 2021-06-05 2021-06-05 Outpatient CHEYENNE QUINN [id number] [place] 07:15:00 07:15:00 Seybol d 2021-06-05 2021-06-05 Outpatient CHEYENNE CACERES [id number] [place] 00:00:00 00:00:00 SHAHEEN vicente 2021-06-04 2021-06-04 Outpatient [place]NE BEDYOA [place] [id number] [place] 00:00:00 00:00:00 AHMED Seybol d 2021-06-04 2021-06-04 Outpatient KYMBERLY [place]NE QUINN [id number] [place] 00:00:00 00:00:00 ADRYENE Seybol d 2021-06-03 2021-06-03 Outpatient MARY ESPANA CHEY[place]NE QUINN [id number] [place] 10:30:00 10:30:00 Seybol d 2021-05-23 2021-05-23 Outpatient CHEY[place]NE QUINN [id number] [place] 14:00:00 14:00:00 Seybol d 2021-05-23 2021-05-23 Outpatient [facility] [place] QUINN [id number] [place] 12:05:00 12:05:00 Seybol d 2021-05-23 2021-05-23 Office Diego Martin .2.840.114 1 [id number] [place] 11:20:00 11:40:00 Visit 350.1.13.13 Se ybold 1.2.7.2.686 [id number] 2021-05-23 2021-05-23 Outpatient CHEYENNE NATHAN [id number] [place] 00:00:00 00:00:00 RYDER Seybol d 2021-05-21 2021-05-21 Outpatient CHEY[place]NE LEO [id number] [place] 00:00:00 00:00:00 AMARJIT Seybol d 2021-05-19 2021-05-19 Outpatient [place]NE LEO [id number] [place] 00:00:00 00:00:00 AMARJIT Seybol d 2021-05-16 2021-05-16 Outpatient [place]NE QUINN [id number] [place] 11:45:00 11:45:00 Seybol d 2021-05-16 2021-05-16 Outpatient CHEYENNE CARRILLO [id number] [place] 11:45:00 11:45:00 NEY Seybol d 2021-05-16 2021-05-16 Office KORIN Nathan 1.2.840.114 [id number] [place] 11:00:00 11:20:00 Visit [facility] 350.1.13.13 Se ybold 1.2.7.2.686 [id number] 2021-05-16 2021-05-16 Outpatient CHEY[place]NE QUINN [id number] [place] 11:05:00 11:05:00 Seybol d 2021-05-16 2021-05-16 Outpatient MARY ESPANA [id number] [place] 09:10:00 09:10:00 Seybol d 2021-05-12 2021-05-12 Outpatient JOHNSONDIANNA [id number] [place] 00:00:00 00:00:00 Seybol d 2021-05-11 2021-05-11 Outpatient DIANNA JOHNSON [id number] [place] 00:00:00 00:00:00 Seybol d 2021-05-08 2021-05-08 Outpatient CHEY[place]NE LEO [id number] [place] 09:30:00 09:30:00 AMARJIT Seybol d 2021-05-06 2021-05-06 Outpatient LAB90 CHE[place]NE QUINN [id number] [place] 10:55:00 10:55:00 Seybol d 2021-05-06 2021-05-06 Office Surendra Valle 1.2.840.114 [id number] [place] 10:00:00 10:30:00 Visit [facility] 350.1.13.13 Se ybold 1.2.7.2.686 [id number] 2021-05-05 2021-05-05 Outpatient CHEYENNE BEDOYA [id number] [place] 00:00:00 00:00:00 AHMED Seybol d 2021-05-05 2021-05-05 Outpatient CHEYENNE BEDOYA [id number] [place] 00:00:00 00:00:00 AHMED Seybol d 2021-05-05 2021-05-05 Outpatient MAIRA QUINN [id number] [place] 00:00:00 00:00:00 MD RAJAN Seybol d 2021-05-05 2021-05-05 Outpatient DIANNA JOHNSON [place] QUINN [id number] [place] 00:00:00 00:00:00 Seybol d 2021-05-02 2021-05-02 Office Dianna Johnson 1.2.840.114 [id number] [place] 10:15:00 10:30:00 Visit Ezio Almaraz 350.1.13.13 Se ybold 1.2.7.2.686 [id number] 2021-05-02 2021-05-02 Outpatient CHEYENNE WASHINGTON [id number] [place] 09:00:00 09:00:00 CARMENCITA Seybol d 2021-04-30 2021-04-30 Outpatient LAB45 [place]NE QUINN [id number] [place] 10:25:00 10:25:00 Seybol d 2021-04-30 2021-04-30 Office PAWEL Leo [id number] [id number] [place] 08:45:00 09:15:00 Visit Amarjit CLARKE 350.1.13.13 Seybold DIAGNOSTI 1.2.7.2.686 [facility] [id number] 2021-04-30 2021-04-30 Outpatient CHEYENNE VALLE [id number] [place] 08:30:00 08:30:00 CAROLINE Seybol d 2021-04-25 2021-04-25 Inpatient Jack Velasquez [facility] RADI [id number] [facility] 10:00:00 10:00:00 57 [facility] 2021-04-23 2021-04-23 Outpatient CHEYENNE GUEVARA [id number] [place] 09:00:00 09:00:00 JOSE Seybol d 2021-04-22 2021-04-22 Outpatient [place]NE QUINN [id number] [place] 07:00:00 07:00:00 Seybol d 2021-04-22 2021-04-22 Outpatient CHEYENNE GUSMAN [id number] [place] 00:00:00 00:00:00 EVIE Seybol d 2021-04-22 2021-04-22 Outpatient CHEY[place]NE GUSMAN [id number] [place] 00:00:00 00:00:00 EVIE Seybol d 2021-04-18 2021-04-18 Outpatient CHEY[place]NE QUINN [id number] [place] 14:00:00 14:00:00 Seybol d 2021-04-18 2021-04-18 Outpatient CHEYENNE VALLE [id number] [place] 00:00:00 00:00:00 CAROLINE Seybol d 2021-04-17 2021-04-17 Outpatient MontañoJack dejseus [facility] [id number] [facility] 14:14:00 14:14:[address] [facility] 2021-04-15 2021-04-15 Outpatient MontañoMary Jane dejesusFormerly [facility] BP00 [id number] [facility] 15:51:00 15:51:[address] [facility] 2021-04-14 2021-04-14 Outpatient CHEYENNE VALLE [id number] [place] 00:00:00 00:00:00 CAROLINE Seybol d 2021-04-11 2021-04-11 Outpatient LAB90 CHEY[place]NE QUINN [id number] [place] 10:20:00 10:20:00 Seybol d 2021-04-10 2021-04-10 Outpatient LEONARD [place]NE QUINN [id number] [place] 00:00:00 00:00:00 CAROLINE Seybol d 2021-04-07 2021-04-07 Outpatient CHEY[place]NE QUINN [id number] [place] 10:05:00 10:05:00 Seybol d 2021-04-07 2021-04-07 Outpatient CHEY[place]NE QUINN [id number] [place] 10:00:00 10:00:00 Seybol d 2021-04-07 2021-04-07 Outpatient CHEYENNE QUINN [id number] [place] 09:55:00 09:55:00 Seybol d 2021-04-07 2021-04-07 Outpatient CHEY[place]NE QUINN [id number] [place] 09:50:00 09:50:00 Seybol d 2021-04-07 2021-04-07 Outpatient CHEY[place]NE QUINN [id number] [place] 09:05:00 09:05:00 Seybol d 2021-04-07 2021-04-07 Office DIANNA JOHNSON 1.2.840.114 [id number] [place] 09:00:00 09:00:00 Visit TRICIA Erazo 350.1.13.13 Seybold DIAGNOSTI 1.2.7.2.686 [facility] [id number] 2021-04-04 2021-04-04 Outpatient CHEYENNE VALLE [id number] [place] 00:00:00 00:00:00 CAROLINE Seybol awa 2021-04-03 2021-04-03 Outpatient CHEYENNE LEO [id number] [place] 15:30:00 15:30:00 AMARJIT Seybol awa 2021-04-02 2021-04-02 Outpatient LAB90 [place]NE QUINN [id number] [place] 11:25:00 11:25:00 Seybol d 2021-04-02 2021-04-02 Office Surendra Valle 1.2.840.114 [id number] [place] 10:00:00 10:30:00 Visit Caroline He 350.1.13.13 Se ybrita 1.2.7.2.686 [id number] 2021-03-24 2021-03-28 [id number] Univers 19:41:00 16:22:00 [facility] 2021-03-24 2021-03-28 [facility] Felicia Griffin 1.2.840. 114 [id number] Univers 19:41:00 16:22:00 Encounter Sharita Sanchez 350.1.13.10 [facility] 4.2.7.2.686 [place] [id number] [address] 2021-03-26 2021-03-26 Outpatient CHEYENNE VALLE [id number] [place] 00:00:00 00:00:00 CAROLINE Seybol awa 2021-03-26 2021-03-26 Outpatient CHEY[place]NE VALLE [id number] [place] 00:00:00 00:00:00 CAROLINE Brittybol awa 2021-03-24 2021-03-24 Orders Doctor TREJO 1.2.840.114 [id number] Univers 00:00:00 00:00:00 Only Unassigned, BA 350.1.13.10 ity of [place] [facility] 4.2.7.2.686 Sukhjinder as [id number] [facility] [address] 2021-03-06 2021-03-06 Outpatient CHEYENNE VALLE [id number] [place] 00:00:00 00:00:00 CAROLINE almaraz 2021-03-05 2021-03-05 Office KimSurendra byrnes 1.2.840.114 [id number] [place] 10:30:00 11:00:00 Visit Caroline Neri 350.1.13.13 kristen 1.2.7.2.686 [id number] 2021-03-05 2021-03-05 Outpatient CHEYENNE VALLE [id number] [place] 00:00:00 00:00:00 CAROLINE almaraz 2021-01-16 2021-01-16 Transition FELIPA Jackson 1.2.840.114 [id number] Univers 00:00:00 00:00:00 of Care Mickie MANCUSO 350.1.13.10 i ty of [place] [id number] [facility] [address] 2021-01-12 2021-01-15 [facility] Kim Ba [facility] 1.2.840. 114 [id number] Univers 20:00:00 13:44:00 Encounter Cici Watson 350.1.13.10 ity of [place] [id number] [facility] [address] 2021-01-12 2021-01-15 Inpatient X WALTER [facility] TIFFANIE [id number] Univers 20:00:00 13:44:00 CICI lundy [facility] 2021-01-10 2021-01-10 Outpatient Tawana YOO [facility] [id number] Univers 14:10:00 14:10:00 HERRERA [facility] 2021-01-10 2021-01-10 Imm/Inj Nurse, Adc Pob Immunization [facility] 1.2.840.114 [id number] Univers 14:04:54 14:05:05 Visit Herrera Yoo Jens [facility] 350.1.13 .10 ity of [place] [id number] Nm dical NAL 421 [facility] 2020-04-27 2020-04-27 Outpatient [facility] [id number] Univers 09:45:00 09:45:00 ity of [facility] 2020-04-06 2020-04-06 Outpatient R ELIDA, [facility] [id number] Univers 09:55:00 09:55:00 LOS ity [facility] 2020-04-04 2020-04-04 Letter Doctor MAYA 1.2.840.114 [id number] Univers 00:00:00 00:00:00 (Out) Unassigned, BA 350.1.13.10 ity of [place] [facility] 4.2.7.2.686 Sukhjinder as [id number] [address] 2019-07-20 2019-07-20 Telephone [facility] 1.2.840.114 [id number] Univers 00:00:00 00:00:00 Lisha Quincy [employer] 350.1.13.10 it y of Surgical 4.2.7.2.686 Sukhjinder as Specialti [id number] Nm dical es [address] [facility] 2019-07-20 2019-07-20 Telephone [facility] 1.2.840.114 [id number] 00:00:00 00:00:00 Lisha Quincy [employer] 350.1.13.10 Surgical 4.2.7.2.686 Specialti [id number] es [address] [place] [address] 2019-07-06 2019-07-06 Telephone [facility] 1.2.840.114 [id number] Univers 00:00:00 00:00:00 Lisha [facility] 350.1.13.10 it y of Surgical 4.2.7.2.686 Sukhjinder as Specialti [id number] Nm dical es [address] [facility] 2019-07-06 2019-07-06 Telephone [facility] 1.2.840.114 [id number] 00:00:00 00:00:00 Lisha [facility] 350.1.13.10 Surgical 4.2.7.2.686 Specialti [id number] es [address] [place] 2019-07-04 2019-07-04 Telephone Bandar [facility] 1.2.840.114 [id number] Univers 00:00:00 00:00:00 Lisha Pinzon 350.1.13.10 it y of Surgical 4.2.7.2.686 Sukhjinder as Specialti [id number] Me dical es [address] [facility] 2019-07-04 2019-07-04 Telephone Bandar [facility] 1.2.840.114 [id number] 00:00:00 00:00:00 Lisha [facility] 350.1.13.10 Surgical 4.2.7.2.686 Specialti [id number] es [address] [place] 2019-06-29 2019-06-29 [facility] 1.2.752.160 [id number] Univers 08:56:15 09:22:49 Visit Lisha Pinzon 350.1.13.10 it y of Surgical 4.2.7.2.686 Sukhjinder as Specialti [id number] Nm dical es [address] [facility] 2019-06-29 2019-06-29 [facility] [id number] 08:56:15 09:22:49 Visit Lisha Pinzon 350.1.13.10 Surgical 4.2.7.2.686 Specialti [id number] es [address] [place] [address] 2019-06-29 2019-06-29 [facility] [id number] [facility] 09:00:00 09:00:00 LISHA lundy [facility] 2019-05-02 2019-05-03 Inpatient [facility] [id number] 07:39:00 19:00:00 [facility] 2019-04-11 2019-04-11 Outpatient [facility] [address] 11:28:00 14:50:00 MAYA Monzon [facility] Results Test Description Test Time Test Comments Results Result Comments Source Hepatitis B surface antibody 2021-09-12 14:53:53 Test Item Value Reference Range Interpretation Comme nts Hep B S Ab (test code = <8.0 See_Comment [Au tomated message] The 26709-6) system which ge nerated this result transmit senthil reference range: <8.0 mIU /mL. The reference range was not used to interpret th is result as normal/abnormal . PHOENIX (test code = PHOENIX) Patient Day Coordinator ID - BS Lab Interpretation (test Normal code = 66154-8) [facility] [id number] 14:53:53 Test Item Value Reference Range Interpretation Comments HEPATITIS B SURFACE ANTIBODY < mIU/mL <8.0 (BEAKER) (test code = 647) Patient Day Coordinator ID - BSHepatitis B surface [id number] 14:53:32 Test Item Value Reference Range Interpretation Comments Hepatitis B surface Nonreactive Nonreactive antigen (test code = 5195-3) PHOENIX (test code = PHOENIX) Specimen is considered negative for HBsAg. Lab Interpretation (test Normal code = 19009-0) [facility] antibody, [id number] 14:53:32 Test Item Value Reference Range Interpretation Comments Hep B Core Total Ab (test Nonreactive Nonreactive code = 66425-5) PHOENIX (test code = PHOENIX) Patient Day Coordinator ID - BS Lab Interpretation (test Normal code = 88523-9) [facility] [id number] 14:53:32 Test Item Value Reference Range Interpretation Comments HEPATITIS B SURFACE ANTIGEN (2) Nonreactive Nonreactive (BEAKER) (test code = 2585) Specimen is considered negative for HBsAg.HEPATITIS B CORE ANTIBODY, TOTAL 2021-09-12 14:53:32 Test Item Value Reference Range Interpretation Comments HEPATITIS B CORE TOTAL ANTIBODY Nonreactive Nonreactive (BEAKER) (test code = 497) Patient Day Coordinator ID - BSFungus [id number] 19:50:00 Test Item Value Reference Interpretation Comments Range Fungus culture Fusarium A Specimen isolate (test code species Informati onSpecimen = 580-1) Source: CorneaS pecimen Site: Left Eye PHOENIX (test code = ONLY CXFUN IS PHOENIX) REQUESTED ON REQ Lab Interpretation Abnormal (test code = 33257-7) [facility] [id number] 19:50:00 Test Item Value Reference Interpretation Comments Range Fungus culture Fusarium A Specimen isolate (test code species Informati onSpecimen = 580-1) Source: CorneaS pecimen Site: Left Eye PHOENIX (test code = ONLY CXFUN IS PHOENIX) REQUESTED ON REQ Lab Interpretation Abnormal (test code = 50789-0) [facility], [id number] 16:56:00 Test Item Value Reference Range Interpretation Comments SPECIFIC GRAVITY 1.005-1.030 (test code = 5811-5) PH (test code = 5.0-7.5 5803-2) URINE-COLOR (test Yellow Yellow code = 5778-6) APPEARANCE (test code Clear Clear = 5767-9) WBC ESTERASE (test 1+ Negative A code = 5799-2) PROTEIN (test code = Negative Negative/Trace 32099-2) GLUCOSE (test code = Negative Negative 33267-6) KETONES (test code = Negative Negative 2514-8) OCCULT BLOOD (test Negative Negative code = 5794-3) BILIRUBIN (test code Negative Negative = 5770-3) UROBILINOGEN,SEMI-QN 0.2 mg/dL 0.2-1.0 (test code = 00807-4) NITRITE, URINE (test Negative Negative code = 5802-4) MICROSCOPIC See below: Microscopic was EXAMINATION (test indicated and was code = 60377-4) performed. PHOENIX (test code = PHOENIX) [facility] results reported in Eastern Time. [facility] Clinical Information:SRC :Urine*Urine ?LCA Source of Specimen:Urine* Urine Lab Interpretation Abnormal (test code = 33252-4) [place] SeyboldMICROSCOPIC [id number] 16:56:00 Test Item Value Reference Range Interpretation Comments WBC (test code = 11-30 See_Comment A [Automated 5821-4) message] The system which generated this result transmit senthil reference range : 0 - 5 /hpf. The reference range was not used to interpret this result as normal/abnormal . RBC (test code = None seen See_Comment [Automated 57639-2) message] The system which generated this result [...] code = None seen None seen /lpf 77263-3) BACTERIA (test code = None seen None seen/Few 5769-5) PHOENIX (test code = PHOENIX) [facility] results reported in Eastern Time. [facility] Clinical Information:SRC :Urine*Urine ?LCA Source of Specimen:Urine* Urine Lab Interpretation Abnormal (test code = 34100-4) [place] CooperGNESIUM, [id number] 14:37:00 Test Item Value Reference Range Interpretation Comments MAGNESIUM, SERUM 1.9 mg/dL 1.6-2.3 (test code = 28358-2) PHOENIX (test code = PHOENIX) [facility] results reported in [place] Time. [facility] Clinical Information:[facility] Source of Specimen:Blood, venous*Venipunc [place] BradyPHOSPHORUS, [id number] 14:37:00 Test Item Value Reference Range Interpretation Comments PHOSPHORUS, SERUM 3.2 mg/dL 2.8-4.1 (test code = 2777-1) PHOENIX (test code = PHOENIX) [facility] results reported in [place] Time. [facility] Clinical Information:SRC:Blood, venous*Venipunc ture ? L[facility] Source of Specimen:Blood, venous*Venipunc [place] BradyCOMP. METABOLIC PANEL (14)2021-04-03 14:09:00 Test Item Value Reference Range Interpretation Comments GLUCOSE, SERUM (test 101 mg/dL 65-99 H code = 2345-7) BUN (test code = 22 mg/dL -24 3094-0) CREATININE, SERUM 1.22 mg/dL 0.76-1.27 ? (test code = 2160-0) Effec tive April 07, 2021 [facility] will begin ? reporting the 2020 CKD-EPI creatin ine equation that ? estimat es kidney function without a race variable. EGFR IF NONAFRICN AM 70 mL/min/1.73 >59 (test code = 73550-4) EGFR IF AFRICN AM 81 mL/min/1.73 >59 In acc ordance with (test code = recommendations from 17222-0) the NKF-ASN Tas k force, ?[facility] rp [...] SERUM (test 9.4 mg/dL 8.7-10.2 code = 76961-4) PROTEIN, TOTAL, 7.1 g/dL 6.0-8.5 SERUM (test code = 2885-2) ALBUMIN, SERUM (test 4.7 g/dL 4.0-5.0 code = 1751-7) GLOBULIN, TOTAL 2.4 g/dL 1.5-4.5 (test code = 12559-7) A/G RATIO (test code 1.2-2.2 = 1759-0) [...] [Automated message] code = 1920-8) The system [employer] generated this result transmitted ref erence range: 0 - 40 I U/L. The reference r reece was not used to interpret this result as normal/abnor mal. ALT (SGPT) (test See_Comment [Automated message] code = 1792-6) The system [employer] generated this result transmitted ref erence range: 0 - 44 I U/L. The reference r reece was not used to interpret this result as normal/abnor mal. PHOENIX (test code = [facility] PHOENIX) results reported in Eastern Time. [facility] Clinical Information:SR C:Blood, venous*Venipun c ture ? L[facility] Source of Specimen:Blood , venous*Venipun c Lab Interpretation Abnormal (test code = 91105-0) [place] Brady
[2021-12-23] MEDS ORDERED: HYDROCODONE/APAP 10/325 TAB ONE (03:39)
--- NOTE | 2021-12-23 05:18 | ER ---
Nurse's Notes [facility] Name: Rhett Ayers Age: 46 yrs Sex: Male : 1975 Arrival Date: 12/23/2021 Time: 03:08 Bed 12 Private MD: Diagnosis: Sprain of unspecified ligament of right ankle Presentation: 12/23 03:22 Chief complaint: Patient states: Around 0100 this morning i was walking and i grabbed kd3 the door knob to keep myself steady and my right slipper twisted out from under me and i held on to the door knob and my foot twisted more. Its really swollen now and hurts up to my knee. Coronavirus screen: Vaccine status: Patient reports receiving the 2nd dose of the covid vaccine. lolyzer. Ebola Screen: No symptoms or risks identified at this time. Initial Sepsis Screen: Does the patient meet any 2 criteria? No. Patient's initial sepsis screen is negative. Does the patient have a suspected source of infection? No. Patient's initial sepsis screen is negative. Risk Assessment: Do you want to hurt yourself or someone else? Patient reports no desire to harm self or others. Onset of symptoms was December 23, 2021. 03:22 Method Of Arrival: Wheelchair kd3 03:22 Acuity: SANTIAGO 3 kd3 Triage Assessment: 03:25 General: Appears uncomfortable, Behavior is calm, cooperative. Pain: Complains of pain kd3 in right foot, lateral aspect of right knee and posterior aspect of right knee. Neuro: Level of Consciousness is awake, alert, obeys commands, Oriented to person, place, time, situation. Musculoskeletal: Swelling present in right foot. Injury Description: Bruise sustained to right foot. Historical: - PMHx: 03:24 CKD; compressed discs; Diabetes - NIDDM; Hypertension; Kidney stone; Orthostatic kd3 hypotension; gastric ulcer; PUD; - PSHx: 03:24 Cholecystectomy; Ureter sx; Gatric Bypass; kd3 - Immunization history:: Adult Immunizations up to date. - Social history:: Smoking status: unknown. - Family history:: not pertinent. Screenin:26 Abuse screen: Denies threats or abuse. Denies injuries from another. Nutritional kd3 screening: No deficits noted. Tuberculosis screening: No symptoms or risk factors identified. Fall Risk Gait- Impaired (20 pts.). Assessment: 05:28 Reassessment: Patient and/or family updated on plan of care and expected duration. Pain kd3 level reassessed. Patient is alert, oriented x 3, equal unlabored respirations, skin warm/dry/pink. Patient states feeling better. Patient states symptoms have improved. Vital Signs: 03:22 Pulse 113; Resp 19; Temp 98.1; Pulse Ox 100% ; Weight 122.47 kg; Height 6 ft. 2 in. kd3 (187.96 cm); Pain 7/10; 03:41 BP 126 / 74; kd3 05:27 BP 147 / 66; Pulse 103; Resp 18; Pulse Ox 99% on R/A; kd3 03:22 Body Mass Index 34.67 (122.47 kg, 187.96 cm) kd3 ED Course: 03:08 Patient arrived in ED. ja2 03:22 Lydia Matute RN is Primary Nurse. kd3 03:24 Sly Norton MD is Attending Physician. rt 03:24 Triage completed. kd3 03:25 Arm band placed on right wrist. kd3 03:26 Patient has correct armband on for positive identification. Bed in low position. Side kd3 rails up X 1. Pulse ox on. NIBP on. 03:26 No provider procedures requiring assistance completed. kd3 05:27 Ankle Right 3 View In Process Unspecified. EDMS 05:27 Knee Right 3 View In Process Unspecified. EDMS 05:28 Patient did not have IV access during this emergency room visit. kd3 Administered Medications: 03:41 Drug: Belzoni (HYDROcodone-acetaminophen) 10 mg-325 mg 1 tabs Route: PO; kd3 05:17 Follow up: Response: No adverse reaction; Pain is decreased kd3 Medication: 03:26 VIS not applicable for this client. kd3 Outcome: 05:18 Discharge ordered by . rt 05:27 Discharged to home via wheelchair, with crutches. kd3 05:27 Condition: stable 05:27 Discharge instructions given to patient, Instructed on discharge instructions, follow up and referral plans. Demonstrated understanding of instructions, follow-up care. 05:28 Patient left the ED. kd3 Signatures: Dispatcher [employer] EDNC Melo Elisa ja2 Lydia Matute RN RN kd3 Sly Norton, MD rt
--- NOTE | 2021-12-23 05:18 | EDPHYS ---
Physician Documentation [facility] Name: Rhett Ayers Age: 46 yrs Sex: Male : 1975 Arrival Date: 12/23/2021 Time: 03:08 Bed 12 Private MD: ED Physician Sly Norton HPI: 12/23 04:08 This 46 yrs old Male presents to ER via Wheelchair with complaints of Foot rt Injury, Foot Pain, Knee Pain. 04:08 The patient presents with an injury. The complaints affect the right foot. Context: The rt problem was sustained at home. Onset: The symptoms/episode began/occurred acutely, just prior to arrival. Modifying factors: The symptoms are alleviated by nothing, the symptoms are aggravated by nothing. Associated signs and symptoms: The patient has no apparent associated signs or symptoms. Severity of symptoms: At their worst the symptoms were moderate. Patient presents to the ED with an injury to his right ankle. Patient states that as he was opening up a doorknob, his foot slipped, causing his foot to invert. He reports pain and swelling to his right lateral ankle as well as pain rating to his right knee which he states is chronic pain due to arthritis. Denies other injury or other acute complaints. Pain is aching nature, not otherwise radiating, no other aggravating or alleviating factors.. Historical: - PMHx: 03:24 CKD; compressed discs; Diabetes - NIDDM; Hypertension; Kidney stone; Orthostatic kd3 hypotension; gastric ulcer; PUD; - PSHx: 03:24 Cholecystectomy; Ureter sx; Gatric Bypass; kd3 - Immunization history:: Adult Immunizations up to date. - Social history:: Smoking status: unknown. - Family history:: not pertinent. ROS: 04:08 Constitutional: Negative for fever, chills, and weight loss, Eyes: Negative for injury, rt pain, redness, and discharge, Cardiovascular: Negative for chest pain, palpitations, and edema, Respiratory: Negative for shortness of breath, cough, wheezing, and pleuritic chest pain, Abdomen/GI: Negative for abdominal pain, nausea, vomiting, diarrhea, and constipation, Back: Negative for injury and pain, Skin: Negative for injury, rash, and discoloration, Neuro: Negative for headache, weakness, numbness, tingling, and seizure, Psych: Negative for depression, anxiety, suicide ideation, homicidal ideation, and hallucinations. 04:08 MS/extremity: Positive for injury or acute deformity, swelling. Exam: 04:08 Constitutional: This is a well developed, well nourished patient who is awake, alert, rt and in no acute distress. Head/Face: Normocephalic, atraumatic. Chest/axilla: Normal chest wall appearance and motion. Nontender with no deformity. No lesions are appreciated. Cardiovascular: Regular rate and rhythm with a normal S1 and S2. No gallops, murmurs, or rubs. Normal PMI, no JVD. No pulse deficits. Respiratory: Lungs have equal breath sounds bilaterally, clear to auscultation and percussion. No rales, rhonchi or wheezes noted. No increased work of breathing, no retractions or nasal flaring. Abdomen/GI: Soft, non-tender, with normal bowel sounds. No distension or tympany. No guarding or rebound. No evidence of tenderness throughout. Skin: Warm, dry with normal turgor. Normal color with no rashes, no lesions, and no evidence of cellulitis. Neuro: Awake and alert, GCS 15, oriented to person, place, time, and situation. Cranial nerves II-XII grossly intact. Motor strength 5/5 in all extremities. Sensory grossly intact. Cerebellar exam normal. Normal gait. Psych: Awake, alert, with orientation to person, place and time. Behavior, mood, and affect are within normal limits. 04:08 Musculoskeletal/extremity: Swelling, tenderness to the right lateral malleolus. Pulses, motor, sensation are intact, skin is intact. Minimal tenderness surrounding the knee, no appreciable swelling, deformity.. Vital Signs: 03:22 Pulse 113; Resp 19; Temp 98.1; Pulse Ox 100% ; Weight 122.47 kg; Height 6 ft. 2 in. kd3 (187.96 cm); Pain 7/10; 03:41 BP 126 / 74; kd3 05:27 BP 147 / 66; Pulse 103; Resp 18; Pulse Ox 99% on R/A; kd3 03:22 Body Mass Index 34.67 (122.47 kg, 187.96 cm) kd3 MDM: 03:26 Patient medically screened. rt 05:18 Differential diagnosis: fracture, sprain. Data reviewed: vital signs, nurses notes, rt radiologic studies. ED course: Patient presents to the ED with an injury to the right ankle.He has no neurovascular compromise, evidence of compartment syndrome. X-rays reveal no fracture. Suspect that the patient sprained his ankle. Will give patient Ortho boot, crutches. Discussed conservative home care with the patient, stable for outpatient care, return precautions discussed.. 12/23 03:37 Order name: Ankle Right 3 View XRAY rt 12/23 03:37 Order name: Knee Left 3 View XRAY rt 12/23 05:17 Order name: Crutches; Complete Time: 05:28 rt 12/23 05:27 Order name: Ankle Right 3 View EDMS 12/23 05:27 Order name: Knee Right 3 View EDMS 12/23 05:17 Order name: Orthopedic shoe; Complete Time: 05:28 rt Administered Medications: 03:41 Drug: Valentine (HYDROcodone-acetaminophen) 10 mg-325 mg 1 tabs Route: PO; kd3 05:17 Follow up: Response: No adverse reaction; Pain is decreased kd3 Disposition Summary: 12/23/21 05:18 Discharge Ordered Location: Home rt Problem: new rt Symptoms: are unchanged rt Condition: Stable rt Diagnosis - Sprain of unspecified ligament of right ankle rt Followup: rt - With: Private Physician - When: 2 - 3 days - Reason: Discharge Instructions: - Discharge Summary Sheet rt - Ankle Sprain rt Forms: - Medication Reconciliation Form rt - Thank You Letter rt - Antibiotic Education rt - Prescription Opioid Use rt Signatures: Dispatcher [employer] Lydia Stanley RN RN kd3 Sly Norton MD MD rt
[2021-12-23 05:34] VITALS: TEMP 98.1
[2021-12-23 05:36] VITALS: BP 147/66; O2SAT 99
--- NOTE | 2021-12-23 13:35 | RAD REPORT ---
EXAM DESCRIPTION: XR Right Knee, 3 Views CLINICAL HISTORY: The patient is 46 years old and is Male; pain TECHNIQUE: Three views of the right knee. COMPARISON: No relevant prior studies available. FINDINGS: Bones/joints: Lateral and anterior osteophytes. No effusion. No acute fracture. No dislocation. Soft tissues: Unremarkable. Vasculature: Atherosclerotic calcification. Other findings: Evidence of old MCL injury. IMPRESSION: No acute findings. Electronically signed by: Rosibel Castro MD 12/23/2021 5:07 AM CLERICAL SUPPORT SPECIALIST Due to temporary technical issues with the PACS/Fluency reporting system, reports are being signed by the in house radiologists without review as a courtesy to insure prompt reporting. The interpreting radiologist is fully responsible for the content of the report.
--- NOTE | 2021-12-23 13:36 | RAD REPORT ---
EXAM DESCRIPTION: Ankle Right 3 View XR Right Ankle 3 Views CLINICAL HISTORY: Pain COMPARISON: None. TECHNIQUE: Right Ankle 3 Views FINDINGS: No fracture or dislocation. No significant sclerotic/lytic bone lesion. Osteopenia or diffuse decreased bone density. Large calcaneal enthesophyte (bone spur) arising from plantar fascia attachment site. Joint spaces unremarkable. Moderate soft tissue swelling located along anterolateral aspects of right ankle. Vascular calcifications throughout visualized right lower extremity. IMPRESSION: 1. Osteopenia. 2. Large right calcaneal enthesophyte (bone spur) arising from plantar fascia attachment site. 3. Moderate right ankle soft tissue swelling. Electronically signed by: Kalin Cazares MD 12/23/2021 5:08 AM AGILE JAVA DEVELOPER Due to temporary technical issues with the PACS/Fluency reporting system, reports are being signed by the in house radiologists without review as a courtesy to insure prompt reporting. The interpreting radiologist is fully responsible for the content of the report.
== END 2021-12-23 05:28 | disposition home or self-care (01) ==
LOC: ER 03:05
DX: S93.401A Sprain of unspecified ligament of right ankle, initial encounter (principal); E11.22 Type 2 diabetes mellitus with diabetic chronic kidney disease; I12.9 Hypertensive chronic kidney disease with stage 1 through stage 4 chronic kidney disease, or unspecified chronic kidney disease; N18.9 Chronic kidney disease, unspecified
CPT/HCPCS: 99283

== ENCOUNTER 2022-01-05 16:10 | Inpatient (IN) | payer OTHER ==
[2022-01-05] MEDS: carvediloL 25 MG TAB PO SCH (17:00)
--- OUTSIDE RECORDS SUMMARY | 2022-01-05 17:22 | XMS REPORT | Continuity of Care Document ---
:1975 Author Organization [facility] t Address [address] [place] [address] Dr. Gonzalez. [address] [place] [address] Care Team Providers Name Role Phone Caroline Valle Primary Care Physician MIRA BEDOYA Attending Clinician Unavailable CAROLINE VALLE Attending Clinician Unavailable ED SAMS Attending Clinician Unavailable ALMAS JACOB Attending Clinician Unavailable Almas Jacob MD Attending Clinician Doctor Unassigned, Lorimor Attending Clinician Unavailable LAB90 Attending Clinician Unavailable Evie Gusman MD Attending Clinician [phone] EVIE GUSMAN Attending Clinician Unavailable MERKLEY, ANDRÉS H Attending Clinician Unavailable Fernando SCRUGGS, Andrés Jean Attending Clinician Renetta ZAVALETA, Mickie Escamilla Attending Clinician BROOKS GIRALDO Attending Clinician Unavailable ENZO, BROOKS Attending Clinician Unavailable Quinton ASHER, Jelly Attending Clinician Herrera Yoo DO Attending Clinician DIANNA JOHNSON Attending Clinician Unavailable SHAHEEN CACERES Attending Clinician Unavailable Nefatli Parker MD Attending Clinician RYDER NATHAN Attending Clinician Unavailable JASON MONTAÑO Attending Clinician [...] Policy Number Effective Date Expiration Date S [facility] 2 [id number] 2021 [facility] 00:00:00 ADMINISTRATORS MULTIPLAN GENERIC [id number] 2021 00:00:00 BCBS 2 [id number] 2021 00:00:00 [facility] [place] [facility] [id number] [address] [place] [id number] 00:00:00 Problems Condition Condition Condition Status Onset Resolution Last Treating Co mments Source Name Details Category Date Date Treatment Clinician Date 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-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 ulcer of 00:00: - left eye left eye 00 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 l Type 2 Type 2 Disease Active 2021-02 [place] diabetes diabetes 0-24 Seybol d mellitus mellitus 00:00: - without without 00 Externa complicati complicati l on, on, without without long-term long-term current current use of use of insulin insulin Cornea Cornea Disease Active 2021-02 [place] opacity opacity 0-24 Seybold 00:00: - 00 Externa l 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, ulcer, 00:00: [place] left left 00 Medical Branch Symptomati Symptomati Disease Active 2022-0 U nivers c c 06-16 ity of bradycardi bradycardi [place] a a [place] 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 06-16 ity of kidney kidney 00:00: [place] disease disease 00 Medical Branch Major Major Disease Active [place] depressive depressive 03-06 Se ybold disorder disorder 00:00: - 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 00 Ex terna remission remission l Iron Iron Disease Active [place] deficiency deficiency 03-06 Se ybold anemia anemia 00:00: - secondary secondary 00 Exte rna to to l inadequate inadequate dietary dietary iron iron intake intake Intestinal Intestinal Disease Active K elsey malabsorpt malabsorpt 03-06 Se ybold ion ion 00:00: - 00 Externa l Chronic Chronic Disease Active [place] pain pain 03-06 [facility]bold syndrome - syndrome - 00:00: - Controlled Controlled 00 Ex terna l Slow Slow Disease Active [place] transit transit 03-06 [facility] constipati constipati 00:00: - on - Not on - Not 00 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 Controlled Controlled l 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 03-06 [place] valgum valgum 00:00: - 00 Externa l Dislocatio Dislocatio Disease Active K elsey n of right n of right 03-06 Se ybold knee knee 00:00: - 00 Externa l History of History of Disease Active K elsemargaret torn torn 03-06 Seybold meniscus meniscus 00:00: - of right of right 00 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 knee - Not knee - Not l Controlled Controlled Numbness Numbness Disease Active Kelse y in left in left 03-06 [place] leg leg 00:00: - 00 Externa l 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 03-06 Seybold low back low back 00:00: - pain with pain with 00 Exte rna sciatica sciatica l Hypertensi Hypertensi Disease Active K elsey on on 03-06 Seybold 00:00: - 00 Externa l 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[place] chronic chronic 03-06 Sey[facility] kidney kidney 00:00: - disease disease 00 Externa l Phimosis Phimosis Disease Active Kelse y of penis - of penis - 03-06 Se ybold Not Not 00:00: - Controlled Controlled 00 Ex terna l Recurrent Recurrent Disease Active Cole sey UTI - Not UTI - Not 03-06 Seyb old Controlled Controlled 00:00: - 00 Externa l Prediabete Prediabete Disease Active K elsey s - s - 03-06 Seybold Controlled Controlled 00:00: 00 MIGUEL (acute MIGUEL (acute Disease Active 2020-02 U [facility] kidney kidney 2-06 ity of injury) injury) 00:00: [address] Branch Obesity Obesity Disease Active 2020-02 Univers (BMI (BMI 2-06 ity of 30-39.9) 30-39.9) 00:00: [address] Branch Primary Primary Disease Active 2020-02 Univers hypertensi hypertensi 2-06 it y of on on 00:00: [address] Branch Type 2 Type 2 Disease Active 2020-02 Univers diabetes diabetes 2-06 ity of mellitus mellitus 00:00: [place] without without 00 Medical complicati complicati Br anch on, on, without without long-term long-term current current use of use of insulin insulin Elevated Elevated Disease Active 2020-02 Unive rs brain brain 2-06 ity of natriureti natriureti [place] c peptide c peptide 00 Medi damien (BNP) (BNP) Branch level level Anemia Anemia Disease Active 2020-02 Univers 2-06 ity of 00:00: [address] Branch Hyperkalem Hyperkalem Disease Active 2020-02 U dale ia ia 2-05 ity of 00:00: [address] Branch Allergies, Adverse Reactions, Alerts Allergy Allergy Status Severity Reaction(s) Onset Inactive Treating Comm ents Source Name Type Date Date Clinician Amlodipi Propensi Active Swelling Wanda ey ne ty to 09-29 Seybold adverse 00:00: - reaction 00 Externa s l No Known DA Active [facility] 06-04 [place] [facility] 00:[facility]: [facility] NO KNOWN Drug Active Univers ALLERGIE Class ity of [facility] Social History Social Habit Start Date Stop Date Quantity Comments Source Alcohol intake 2022-01-05 2022-01-05 Ex-drinker [place] Leti bold - 00:00:00 00:00:00 (finding) External Exposure to 2021-11-22 2021-12-02 Not sure [facility]-CoV-2 00:00:00 08:34:00 [facility] (event) Branch Tobacco use and 2021-06-04 2021-06-04 Smokeless tobacco Ke lsey Seybold - exposure 00:00:00 00:00:00 non-user External Sex [birth year] At [birth year] JAMEY Cordoba 00:00:00 [facility]:00 [facility] Smoking Status Start Date Stop Date Source Tobacco smoking consumption unknown [facility] Never smoked tobacco [place] milton old - External Medications Ordered Filled Start Stop Current Ordering Indication Dosage Frequency Signature Comments Components Source Medication Medication Date Date Medication? Clinician (SIG) Name Name HYDROcodone 2021-02- No 1{tbl} Take 1 K elsey -Acetaminop 1-28 11-28 tablet by Se ybold hen 7.5-325 11:57: 00:00 mouth as - MG oral 37 :00 needed Externa Tablet l HYDROcodone 2021-02 Yes [id number] Take by [place] -Acetaminop 1-28 mouth Seybold hen 10-325 10:50: - MG oral 57 Externa Tablet l Carvedilol 2021-02 Yes [id number] 12.5mg Take 2 [place] 6.25 MG 1-28 tablets Seybold oral Tablet 00:00: (12.5 mg - 00 total) by Externa mouth in l the morning and 2 tablets (12.5 mg total) in the evening. Take with meals. Gabapentin 2021-02 Yes [id number] 800mg Q.[id number] Take 1 [place] 800 MG oral 1-28 [id number] tablet Seybold Tablet 00:00: 3D (800 mg - 00 total) by Externa mouth 3 l times daily as needed (nerve pain) Fluconazole 2021-02 Yes [id number] TAKE 1 [place] 150 MG oral 1-25 TABLET BY Sey bold Tablet 00:00: MOUTH A - 00 SINGLE Externa DOSE l PREDNISOLON 2021-[id number] Univers E ACETATE 1 0-06 [id number] (1) DROP it y of % 00:00: INTO LEFT [place] ophthalmic 00 EYE FOUR Medic al suspension TIMES Branch drops DAILY. PREDNISOLON 2021-[id number] ONE Univers E ACETATE 1 0-06 [id number] (1) DROP it y of % 00:00: INTO LEFT [place] ophthalmic 00 EYE FOUR Medic al suspension TIMES Branch drops DAILY. PREDNISOLON 2021-[id number] ONE Univers E ACETATE 1 0-06 [id number] (1) DROP it y of % 00:00: INTO LEFT [place] ophthalmic 00 EYE FOUR Medic al suspension TIMES Branch drops DAILY. PREDNISOLON 2021-[id number] ONE Univers E ACETATE 1 0-06 [id number] (1) DROP it y of % 00:00: INTO LEFT [place] ophthalmic 00 EYE FOUR Medic al suspension TIMES Branch drops DAILY. PREDNISOLON Yes [id number] PLACE ONE Univers E ACETATE 1 9-13 [id number] (1) DROP it y of % 00:00: INTO LEFT [place] ophthalmic 00 EYE FOUR Medic al suspension TIMES Branch drops DAILY. PREDNISOLON 2021- No [id number] PLACE ONE Univers E ACETATE 1 9-13 10- 651714 (1) DROP i ty of % 00:00: 00:00 INTO LEFT [place] ophthalmic 00 :00 EYE FOUR Medic al suspension TIMES Branch drops DAILY. MOXIFLOXACI Yes [id number] INSTILL Univers N 0.5 % 09-3002 ONE (1) ity of ophthalmic 00:00: [place] drops 00 LEFT EYE Medical FOUR TIMES Branch DAILY. MOXIFLOXACI Yes [id number] INSTILL Univers N 0.5 % 09-3002 ONE (1) ity of ophthalmic 00:00: [place]OP [place] drops 00 LEFT EYE Medical FOUR TIMES Branch DAILY. MOXIFLOXACI Yes [id number] INSTILL Univers N 0.5 % 09-30 9102 ONE (1) ity of ophthalmic 00:00: DROP IN [place] drops 00 LEFT EYE Medical FOUR TIMES Branch DAILY. MOXIFLOXACI 0 Yes [id number] INSTILL Univers N 0.5 % 09-3002 ONE (1) ity of ophthalmic 00:00: DROP IN [place] drops 00 LEFT EYE Medical FOUR TIMES Branch DAILY. MOXIFLOXACI Yes [id number] INSTILL Univers N 0.5 % 09-3002 ONE (1) ity of ophthalmic 00:00: DROP IN [place] drops 00 LEFT EYE Medical FOUR TIMES Branch DAILY. MOXIFLOXACI Yes [id number] INSTILL Univers N 0.5 % 09-30 ONE (1) ity of ophthalmic 00:00: DROP IN [place] drops 00 LEFT EYE Medical FOUR TIMES Branch DAILY. Carvedilol 2021- No TAKE ONE Ke lsey 6.25 MG 09-30 (1) Seybold oral Tablet 00:00: 00:00 TABLET(S) - 00 :00 BY MOUTH Externa TWICE A l DAY (EVERY MORNING AND EVENING). prednisoLON Yes [id number] 1[drp] Place 1 Univers E acetate 8- [id number] Drop in ity o f (PRED 00:00: left eye 4 [place] FORTE) 1 % 00 (four) Medical ophthalmic times Branch suspension daily. drops Doxepin HCl Yes [id number] TAKE 1 [place] 75 MG oral 8-10 CAPSULE Seybol d Capsule 00:00: (75 MG) BY - 00 MOUTH Externa DAILY AT l BEDTIME Fluoxetine Yes [id number] 40mg Take 1 K elsey HCl 40 MG 8-10 capsule Seybold oral 00:00: (40 mg - Capsule 00 total) by Externa mouth l daily prednisoLON Yes PLACE ONE K elsey E Acetate 1 8- (1) DROP Seyb old % 00:00: INTO LEFT - ophthalmic 00 EYE FOUR Exter na Suspension TIMES l DAILY. prednisoLON 2021- No [id number] 1[drp] Place 1 Univers E acetate 8-11 16-13 [id number] Drop in ity of (PRED 00:00: 00:00 left eye 4 [place] FORTE) 1 % 00 :00 (four) Medical ophthalmic times Branch suspension daily. drops ketorolac Yes [id number] 1[drp] Place 1 Univers 0.5 % 607 9102 Drop in ity of ophthalmic 00:00: left eye 4 [place] solution 00 (four) Medical times Branch daily. ketorolac Yes [id number] 1[drp] Place 1 Univers 0.5 % 6-07 9102 Drop in ity of ophthalmic 00:00: left eye 4 [place] solution 00 (four) Medical times Branch daily. ketorolac 2021-0 Yes [id number] 1[drp] Place 1 Univers 0.5 % 6-07 9102 Drop in ity of ophthalmic 00:00: left eye 4 [place] solution 00 (four) Medical times Branch daily. ketorolac 2021-0 Yes [id number] 1[drp] Place 1 Univers 0.5 % 6-07 9102 Drop in ity of ophthalmic 00:00: left eye 4 [place] solution 00 (four) Medical times Branch daily. ketorolac 2021-0 Yes [id number] 1[drp] Place 1 Univers 0.5 % 6-07 9102 Drop in ity of ophthalmic 00:00: left eye 4 [place] solution 00 (four) Medical times Branch daily. ketorolac 2021-0 Yes [id number] 1[drp] Place 1 Univers 0.5 % 6-07 9102 Drop in ity of ophthalmic 00:00: left eye 4 [place] solution 00 (four) Medical times Branch daily. Tizanidine 0 Yes TAKE 3 Kelse y HCl 2 MG 6-04 CAPSULES Seybold oral 00:00: BY MOUTH - Capsule 00 EVERY 6 Externa HOURS l hydroCHLORO 0 Yes [id number] 25mg Take 2 Univers thiazide 5-29 9102 capsules ity of 12.5 mg 00:00: by mouth [place] capsule 00 daily. Medical Branch hydroCHLORO 0 Yes [id number] 25mg Take 2 Univers thiazide 5-29 9102 capsules ity of 12.5 mg 00:00: by mouth [place] capsule 00 daily. Medical Branch hydroCHLORO 0 Yes [id number] 25mg Take 2 Univers thiazide 5-29 9102 capsules ity of 12.5 mg 00:00: by mouth [place] capsule 00 daily. Medical Branch hydroCHLORO 0 Yes [id number] 25mg Take 2 Univers thiazide 5-29 9102 capsules ity of 12.5 mg 00:00: by mouth [place] capsule 00 daily. Medical Branch hydroCHLORO 2021-0 Yes [id number] 25mg Take 2 Univers thiazide 5-29 9102 capsules ity of 12.5 mg 00:00: by mouth [place] capsule 00 daily. Medical Branch hydroCHLORO Yes [id number] 25mg Take 2 Univers thiazide 5-29 9102 [...] by mouth ity of capsule 17:49: daily. [place] [address] Medical Branch naloxegoL Yes 25mg Take 25 mg Un luz marina (MOVANTIK) 5-28 by mouth ity o f 25 mg Tab 17:49: daily. [place] [address] Medical Branch ferrous Yes 325mg Take 325 [...] by mouth ity of tablet 17:49: daily. [place] [address] Medical Branch docusate Yes 100mg Take 100 [...] mouth ity of capsule 17:49: every 6 [place] [address] (six) Medical hours. Branch FLUoxetine Yes 40mg Take 40 mg U nivers 40 mg 5-28 by mouth ity of capsule 17:49: daily. [place] [address] Medical Branch naloxegoL 0 Yes 25mg Take 25 mg Un luz marina (MOVANTIK) 5-28 by mouth ity o f 25 mg Tab 17:49: daily. [place] [address] Medical Branch ferrous Yes 325mg Take 325 [...] by mouth ity of ORAL) 17:49: every [place] 34 evening. Medical Branch morphine ER 0 Yes 15mg Take 15 mg Univers 15 mg 12 hr 5-28 by mouth ity of tablet 17:49: daily. [place] [address] Medical Branch docusate 0 Yes 100mg Take [...] mouth ity of capsule 17:49: every 6 [place] [address] (six) Medical hours. Branch FLUoxetine 2022-0 Yes 40mg Take 40 mg U nivers 40 mg 5-28 by mouth ity of capsule 17:49: daily. [place] [address] Medical Branch naloxegoL Yes 25mg Take 25 mg Un luz marina (MOVANTIK) 5-28 by mouth ity o f 25 mg Tab 17:49: daily. [place] [address] Medical Branch ferrous Yes 325mg Take 325 [...] by mouth ity of ORAL) 17:49: every [place] 34 evening. Medical Branch morphine ER Yes 15mg Take 15 mg Univers 15 mg 12 hr 5-28 by mouth ity of tablet 17:49: daily. [place] [address] Medical Branch docusate Yes 100mg Take 100 [...] by mouth ity of capsule 17:49: daily. [place] [address] Medical Branch naloxegoL Yes 25mg Take 25 mg Un luz marina (MOVANTIK) 5-28 by mouth ity o f 25 mg Tab 17:49: daily. [place] [address] Medical Branch ferrous Yes 325mg Take 325 [...] by mouth ity of ORAL) 17:49: every [place] [address] evening. Medical Branch morphine ER Yes 15mg Take 15 mg Univers 15 mg 12 hr 5-28 by mouth ity of tablet 17:49: daily. [place] [address] Medical Branch docusate Yes 100mg Take 100 Univ ers 100 mg 5-28 mg by ity of capsule 17:49: mouth [place] 34 daily. Medical Branch nystatin Yes Apply [...] mouth ity of capsule 17:49: every 6 [place] [address] (six) Medical hours. Branch FLUoxetine Yes 40mg Take 40 mg U nivers 40 mg 5-28 by mouth ity of capsule 17:49: daily. [place] [address] Medical Branch naloxegoL Yes 25mg Take 25 mg Un luz marina (MOVANTIK) 5-28 by mouth ity o f 25 mg Tab 17:49: daily. [place] [address] Medical Branch ferrous Yes 325mg Take 325 [...] by mouth ity of tablet 17:49: daily. [place] [address] Medical Branch docusate Yes 100mg Take 100 [...] by mouth ity of capsule 17:49: daily. [place] [address] Medical Branch naloxegoL Yes 25mg Take 25 mg Un luz marina (MOVANTIK) 5-28 by mouth ity o f 25 mg Tab 17:49: daily. [place] [address] Medical Branch ferrous 0 Yes 325mg Take [...] by mouth ity of tablet 17:49: daily. [place] 34 Medical Branch docusate Yes 100mg Take 100 [...] Nausea and Vomiting (N/V). natamycin 5 Yes [id number] 1[drp] Place 1 Univers % 5-28 9102 Drop in ity of ophthalmic 00:00: left eye Sukhjinder as suspension 00 every 2 Medica l drops (two) Branch hours. erythromyci Yes [id number] .5[in_u Place 0.5 Univers n 5 mg/gram 5-28 9102 s] Inches in ity of (0.5 %) 00:00: left eye [place] ophthalmic 00 at Medical ointment bedtime. Branch hydrALAZINE Yes [id number] 5mg Take 0.5 Univers 10 mg 5-28 9102 tablets by ity of tablet 00:00: mouth 2 [place] 00 (two) Medical times Branch daily. natamycin 5 Yes [id number] 1[drp] Place 1 Univers % 5-28 9102 Drop in ity of ophthalmic 00:00: left eye Sukhjinder as suspension 00 every 2 Medica l drops (two) Branch hours. erythromyci Yes [id number] .5[in_u Place 0.5 Univers n 5 mg/gram 5-28 9102 s] Inches in ity of (0.5 %) 00:00: left eye [place] ophthalmic 00 at Medical ointment bedtime. Branch hydrALAZINE Yes [id number] 5mg Take 0.5 Univers 10 mg 5-28 9102 tablets by ity of tablet 00:00: mouth 2 [place] (two) Medical times Branch daily. natamycin 5 Yes [id number] 1[drp] Place 1 Univers % 5-28 9102 Drop in ity of ophthalmic 00:00: left eye Sukhjinder as suspension 00 every 2 Medica l drops (two) Branch hours. erythromyci Yes [id number] .5[in_u Place 0.5 Univers n 5 mg/gram 5-28 9102 s] Inches in ity of (0.5 %) 00:00: left eye [place] ophthalmic 00 at Medical ointment bedtime. Branch hydrALAZINE Yes [id number] 5mg Take 0.5 Univers 10 mg 5-28 9102 tablets by ity of tablet 00:00: mouth 2 (two) Medical times Branch daily. natamycin Yes [id number] 1[drp] Place 1 Univers % 5-28 9102 Drop in ity of ophthalmic 00:00: left eye Sukhjinder as suspension 00 every 2 Medica l drops (two) Branch hours. erythromyci Yes [id number] .5[in_u Place 0.5 Univers n 5 mg/gram 5-28 9102 s] Inches in ity of (0.5 %) 00:00: left eye [place] ophthalmic 00 at Medical ointment bedtime. Branch hydrALAZINE Yes [id number] 5mg Take 0.5 Univers 10 mg 5-28 9102 tablets by ity of tablet 00:00: mouth 2 00 (two) Medical times Branch daily. natamycin 5 Yes [id number] 1[drp] Place 1 Univers % 5-28 9102 Drop in ity of ophthalmic 00:00: left eye Sukhjinder as suspension 00 every 2 Medica l drops (two) Branch hours. erythromyci Yes [id number] .5[in_u Place 0.5 Univers n 5 mg/gram 5-28 9102 s] Inches in ity of (0.5 %) 00:00: left eye [place] ophthalmic 00 at Medical ointment bedtime. Branch hydrALAZINE Yes [id number] 5mg Take 0.5 Univers 10 mg 5-28 9102 tablets by ity of tablet 00:00: mouth 2 [place] 00 (two) Medical times [place] daily. natamycin 5 0 Yes [id number] 1[drp] Place 1 Univers % 5-28 9102 Drop in ity of ophthalmic 00:00: left eye Sukhjinder as suspension 00 every 2 Medica l drops (two) Branch hours. erythromyci Yes [id number] .5[in_u Place 0.5 Univers n 5 mg/gram 5-28 9102 s] Inches in ity of (0.5 %) 00:00: left eye [place] ophthalmic 00 at Medical ointment bedtime. Branch hydrALAZINE Yes [id number] 5mg Take 0.5 Univers 10 mg 5-28 9102 tablets by ity of tablet 00:00: mouth 2 [place] [address] (two) Medical times [place] daily. HYDROcodone 0 Yes [id number] Take by [place] -Acetaminop 5-18 mouth Seybold hen 10-325 11:11: MG oral 20 Tablet Metoprolol 0 Yes [id number] 50mg TAKE 1 K elsey Tartrate 50 5-09 TABLET (50 Se ybold MG oral 00:00: MG TOTAL) Tablet 00 BY MOUTH IN THE MORNING AND 1 TABLET (50 MG TOTAL) IN THE EVENING. hydroCHLORO 0 Yes [id number] 25mg TAKE 1 [place] thiazide 25 5-09 TABLET (25 Se ybold MG oral 00:00: MG TOTAL) Tablet 00 BY MOUTH DAILY. Metoprolol 0 Yes [id number] 50mg TAKE 1 K elsey Tartrate 50 5-09 TABLET (50 Se ybold MG oral 00:00: MG TOTAL) Tablet 00 BY MOUTH IN THE MORNING AND 1 TABLET (50 MG TOTAL) IN THE EVENING. hydroCHLORO 2021-0 Yes [id number] 25mg TAKE 1 [place] thiazide 25 5-09 TABLET (25 Se ybold MG oral 00:00: MG TOTAL) Tablet 00 BY MOUTH DAILY. Nystatin 0 Yes [id number] APPLY 1 Ke lsey [id number] 4-28 APPLICATIO Seybold UNIT/GM 00:00: N apply 00 TOPICALLY externally 3 TIMES Powder DAILY. Nystatin Yes [id number] APPLY 1 Ke lsey [id number] 4-28 APPLICATIO Seybold UNIT/GM 00:00: N apply 00 TOPICALLY externally 3 TIMES Powder DAILY. HYDROcodone 2021-0 Yes [id number] Take by [place] -Acetaminop 4-15 mouth Seybold hen 10-325 11:36: MG oral 16 Tablet HYDROcodone 2021-0 Yes [id number] Take by [place] -Acetaminop 4-15 mouth Seybold [...] of the day Methylpredn 2021-0 2021- No [id number] 40mg [place] isolone -05-16 Seybold Acetate 16:45: 16:37 (Depo-Medro 00 :00 l) 40 mg/ml - Physician Administere d (J1030) Methylpredn 2021-0 2021- No [id number] 40mg 40 mg, [place] isolone -05-16 Physician Seybol d Acetate 16:45: 16:37 Administer (Depo-Medro 00 :00 ed, ONCE, l) 40 mg/ml 1 dose, On - Physician 05/16/21 Administere at 1145 d (J1030) HYDROcodone 2021-0 Yes [id number] Take by [place] -Acetaminop 4-08 mouth Seybold hen 10-325 10:52: MG oral 25 Tablet HYDROcodone 2021-0 Yes [id number] Take by [place] -Acetaminop 3-29 mouth Seybold hen 10-325 09:51: MG oral 33 Tablet hydroCHLORO 2021-0 Yes [id number] 25mg Take 1 [place] thiazide 25 3-29 tablet (25 Se ybold MG oral 00:00: mg total) Tablet 00 by mouth daily Nystatin 0 Yes [id number] Apply 1 Ke lsey [id number] 3- applicatio Seybold UNIT/GM 00:00: n apply 00 topically externally 3 times Powder daily Ondansetron 0 Yes [id number] 4mg Q.[id number] Take 1 [place] (Zofran 3-29 [id number] tablet (4 S eybold ODT) 4 MG 00:00: 3D mg total) oral TABLET 00 by mouth DISPERSIBLE every 8 hours as needed for nausea hydroCHLORO 2021-0 Yes [id number] 25mg Take 1 [place] thiazide 25 3-29 tablet (25 Se ybold MG oral 00:00: mg total) Tablet 00 by mouth daily Nystatin 0 Yes [id number] Apply 1 Ke lsey [id number] 3- applicatio Seybold UNIT/GM 00:00: n apply 00 topically externally 3 times Powder daily Ondansetron 0 Yes [id number] 4mg Q.[id number] Take 1 [place] (Zofran 3-29 [id number] tablet (4 S eybold ODT) 4 MG 00:00: 3D mg total) oral TABLET 00 by mouth DISPERSIBLE every 8 hours as needed for nausea hydroCHLORO 2021-0 Yes [id number] 25mg Take 1 [place] thiazide 25 3-29 tablet (25 Se ybold MG oral 00:00: mg total) Tablet 00 by mouth daily Nystatin 2021-0 Yes [id number] Apply 1 Ke lsey [id number] 3- applicatio Seybold UNIT/GM 00:00: n apply 00 topically externally 3 times Powder daily Ondansetron 2021-0 Yes [id number] 4mg Q.[id number] Take 1 [place] (Zofran 3-29 [id number] tablet (4 S eybold ODT) 4 MG 00:00: 3D mg total) oral TABLET 00 by mouth DISPERSIBLE every 8 hours as needed for nausea Ondansetron 2021-0 Yes [id number] 4mg Q.[id number] Take 1 [place] (Zofran 3-29 [id number] tablet (4 S eybold ODT) 4 MG 00:00: 3D mg total) oral TABLET 00 by mouth DISPERSIBLE every 8 hours as needed for nausea Ondansetron 2021-0 Yes [id number] 4mg Q.[id number] Take 1 [place] (Zofran 3-29 [id number] tablet (4 S eybold ODT) 4 MG 00:00: 3D mg total) oral TABLET 00 by mouth DISPERSIBLE every 8 hours as needed for nausea Ondansetron 2021-0 Yes [id number] 4mg Q.[id number] Take 1 [place] (Zofran 3-29 [id number] tablet (4 S eybold ODT) 4 MG 00:00: 3D mg total) - oral TABLET 00 by mouth Exte rna DISPERSIBLE every 8 l hours as needed for nausea HYDROcodone 2021-0 Yes [id number] Take by [place] -Acetaminop 3-25 mouth Seybold [...] oral 00:00: Tablet 00 Delayed Response Cosyntropin 2-0 2022- No [id number] .25mg [place] (CORTROSYN) 04-30 Seybold 0.25 mg 14:15: 14:21 00 :00 Cosyntropin 2-0 2021- No [id number] .25mg 0.25 mg, [place] (CORTROSYN) 04-30- intramuscu S eybold 0.25 mg 14:15: 14:21 lar, ONCE, 00 :00 1 dose, On Wed04/30/21 at 0915 Tizanidine 2021-0 2022- No [id number] every 6 [place] HCl 2 MG 04-30- (six) Seybold oral 08:46: 00:00 hours Capsule 51 :00 HYDROcodone Yes [id number] Take by [place] -Acetaminop 3-23 mouth Seybold [...] check Seybo ld Transmit 00:00: blood 3-4 - (Dexcom G6 00 times and Exte rna Transmitter as needed. l ) does not apply Misc Metoprolol 2021-0 Yes [id number] 50mg Take 1 K elsey Tartrate 50 3-08 tablet (50 Se ybold MG oral 00:00: mg total) Tablet 00 by mouth in the morning and 1 tablet (50 mg total) in the evening. Docusate 2021-0 Yes [id number] 100mg Take 100 [place] Sodium 100 3-08 mg by Seybold MG oral 00:00: mouth 2 Tablet 00 times daily Metoprolol 2021-0 Yes [id number] 50mg Take 1 K elsey Tartrate 50 3-08 tablet (50 Se ybold MG oral 00:00: mg total) Tablet 00 by mouth in the morning and 1 tablet (50 mg total) in the evening. Docusate 2021-0 Yes [id number] 100mg Take 100 [place] Sodium 100 3-08 mg by Seybold MG oral 00:00: mouth 2 Tablet 00 times daily Metoprolol 2021-0 Yes [id number] 50mg Take 1 K elsey Tartrate 50 3-08 tablet (50 Se ybold MG oral 00:00: mg total) Tablet 00 by mouth in the morning and 1 tablet (50 mg total) in the evening. Docusate 2021-0 Yes [id number] 100mg Take 100 [place] Sodium 100 3-08 mg by Seybold MG oral 00:00: mouth 2 Tablet 00 times daily Metoprolol 2021-0 Yes [id number] 50mg Take 1 K elsey Tartrate 50 3-08 tablet (50 Se ybold MG oral 00:00: mg total) Tablet 00 by mouth in the morning and 1 tablet (50 mg total) in the evening. Docusate 2021-0 Yes [id number] 100mg Take 100 [place] Sodium 100 3-08 mg by Seybold MG oral 00:00: mouth 2 Tablet 00 times daily Metoprolol 2021-0 Yes [id number] 50mg Take 1 K elsey Tartrate 50 3-08 tablet (50 Se ybold MG oral 00:00: mg total) Tablet 00 by mouth in the morning and 1 tablet (50 mg total) in the evening. Docusate 2021-0 Yes [id number] 100mg Take 100 [place] Sodium 100 3-08 mg by Seybold MG oral 00:00: mouth 2 Tablet 00 times daily Docusate Yes [id number] 100mg Take 100 Che[place] Sodium 100 3-08 mg by Seybold MG oral 00:00: mouth 2 Tablet 00 times daily Docusate Yes [id number] 100mg Take 100 Che[place]enne Sodium 100 3-08 mg by Seybold MG oral 00:00: mouth 2 Tablet 00 times daily Tizanidine Yes [id number] every 6 Cheyenne HCl 2-28 (six) Seybold (Zanaflex) 08:53: hours 2 MG oral 51 Capsule HYDROcodone Yes [id number] Take by Cheyenne -Acetaminop 2-28 mouth Seybold hen 10-325 08:53: MG oral 32 Tablet Fluoxetine 2021- No [id number] Take by Che[place] HCl 20 MG 2-24 02-24 mouth 2 Seybol d oral 15:04: 00:00 times Capsule 25 :00 daily Metformin 2021- No [id number] 1000mg Take 1,000 Cheyenne HCl 1000 MG 2-23 02-23 mg by Seybol d oral Tablet 10:44: 00:00 mouth 42 :00 daily Continuous Yes [id number] Check K elsey Blood Gluc 2-23 Seybold Sensor 00:00: (Dexcom G6 00 Sensor) does not apply Misc Continuous Yes [id number] Check K elsey Blood Gluc 2-23 sugar 4 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:00: times (Dexcom G4 00 daily and [place] as needed Rcv/Share) does not apply Device Continuous Yes [id number] Check K elsey Blood Gluc 2-23 Seybold Sensor 00:00: (Dexcom G6 00 Sensor) does not apply Misc Continuous Yes [id number] Check K elsey Blood Gluc 2-23 sugar 4 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:00: times (Dexcom G4 00 daily and [place] as needed Rcv/Share) does not apply Device Continuous Yes [id number] Check K elsey Blood Gluc 2-23 Seybold Sensor 00:00: (Dexcom G6 00 Sensor) does not apply Misc Continuous Yes [id number] Check K elsey Blood Gluc 2-23 sugar 4 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:00: times (Dexcom G4 00 daily and [place] as needed Rcv/Share) does not apply Device Continuous 2022-0 Yes [id number] Check K elsey Blood Gluc 2-23 Seybold Sensor 00:00: (Dexcom G6 00 Sensor) does not apply Misc Continuous 2022-0 Yes [id number] Check K elsey Blood Gluc 2-23 sugar 4 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:00: times (Dexcom G4 00 daily and [place] as needed Rcv/Share) does not apply Device Continuous 2022-0 Yes [id number] Check K elsey Blood Gluc 2-23 Seybold Sensor 00:00: (Dexcom G6 00 Sensor) does not apply Misc Continuous 2022-0 Yes [id number] Check K elsey Blood Gluc 2-23 sugar 4 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:00: times (Dexcom G4 00 daily and [place] as needed Rcv/Share) does not apply Device Continuous 2022-0 Yes [id number] Check K elsey Blood Gluc 2-23 Seybold Sensor 00:00: (Dexcom G6 00 Sensor) does not apply Misc Continuous 2022-0 Yes [id number] Check K elsey Blood Gluc 2-23 sugar 4 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:00: times (Dexcom G4 00 daily and [place] as needed Rcv/Share) does not apply Device Continuous 2022-0 Yes [id number] Check K elsey Blood Gluc 2-23 Seybold Sensor 00:00: (Dexcom G6 00 Sensor) does not apply Misc Continuous 2022-0 Yes [id number] Check K elsey Blood Gluc 2-23 sugar 4 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:00: times (Dexcom G4 00 daily and [place] as needed Rcv/Share) does not apply Device Continuous 2022-0 Yes [id number] Check K elsey Blood Gluc 2-23 Seybold Sensor 00:00: (Dexcom G6 00 Sensor) does not apply Misc Continuous 2022-0 Yes [id number] Check K elsey Blood Gluc 2-23 sugar 4 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:00: times (Dexcom G4 00 daily and [place] as needed Rcv/Share) does not apply Device Continuous 2022-0 Yes [id number] Check K elsey Blood Gluc 2-23 Seybold Sensor 00:00: (Dexcom G6 00 Sensor) does not apply Misc Continuous 0 Yes [id number] Check K elsey Blood Gluc 2-23 sugar 4 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:00: times (Dexcom G4 00 daily and [place] as needed Rcv/Share) does not apply Device Continuous 0 Yes [id number] Check K elsey Blood Gluc 2-23 sugar 4 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:00: times - (Dexcom G4 00 daily and Exte rna [place] as needed l Rcv/Share) does not apply Device Docusate 0 Yes Che[place] Sodium 100 2-22 Seybold MG oral 00:00: Capsule 00 Docusate 2021-0 Yes [place] Sodium 100 2-22 Seybold MG oral 00:00: Capsule 00 Docusate 2021-0 2- No [place] Sodium 100 2-22 03-23 Seybold MG oral 00:00: 00:00 Capsule 00 :00 Lisinopril 2021-0 2- No Cheyenne 40 MG oral 2-22 02-24 [...] oral 00:00: mouth Capsule 00 daily Amlodipine 2-0 Yes 10mg Take 10 mg K elsey [...] oral 00:00: mouth Capsule 00 daily Tamsulosin Yes 1{capsu Take 1 Ke lsey HCl 0.4 MG 2-18 le} capsule by Sey bold oral 00:00: mouth Capsule 00 daily Tamsulosin 0 Yes 1{capsu Take 1 Ke lsey HCl 0.4 MG 2-18 le} capsule by Sey bold oral 00:00: mouth Capsule 00 daily Amlodipine 2021-0 2021- No 10mg Take 10 mg Che[place] Besylate 10 2-18 -29 by mouth Sey bold MG oral 00:00: 00:00 daily Tablet 00 :00 Metoprolol 2021-0 Yes [id number] TAKE 1 K elsey Tartrate 50 2-17 TABLET BY Sey bold MG oral 00:00: MOUTH 2 Tablet 00 TIMES DAILY Tizanidine 0 Yes TAKE 3 Kelse y HCl 2 MG 2-17 TABLETS BY Seybo ld oral Tablet 00:00: MOUTH 00 EVERY 6 HOURS Metoprolol 2021-0 Yes [id number] TAKE 1 K elsey Tartrate 50 2-17 [...] 00 MOUTH DAILY AT BEDTIME Fluoxetine Yes [id number] Take by Che[place]enne HCl 20 MG 1-27 mouth 2 Seybold oral 08:05: times Capsule 51 daily Metformin Yes [id number] 1000mg Take 1,000 [place] HCl 1000 MG 1-27 mg by Seybold oral Tablet 08:05: mouth 32 daily HYDROcodone 2021-0 Yes [id number] Take by Cheyenne -Acetaminop 1-27 mouth Seybold hen 10-325 08:05: MG oral 25 Tablet Tizanidine Yes [id number] every 6 [place] HCl 1-27 (six) Seybold (Zanaflex) 08:05: hours 2 MG oral 25 Capsule HYDROcodone Yes [id number] Take by Cheyenne -Acetaminop 1-27 mouth Seybold hen 10-325 08:05: MG oral 25 Tablet Tizanidine 0 Yes [id number] every 6 [place] HCl 1-27 (six) Seybold (Zanaflex) 08:05: hours 2 MG oral 25 Capsule Docusate Yes [id number] 100mg Take 100 [place] Sodium 100 1-26 mg by Seybold MG oral 00:00: mouth 2 Tablet 00 times daily Sennosides 0 Yes [id number] 1{capsu Take 1 Cheyenne (Senna) 8.6 1-26 le} capsule by Se ybold MG oral 00:00: mouth Capsule 00 daily Docusate Yes [id number] 100mg Take 100 [place] Sodium 100 1-26 mg by Seybold MG oral 00:00: mouth 2 Tablet 00 times daily Sennosides Yes [id number] 1{capsu Take 1 Cheyenne (Senna) 8.6 1-26 le} capsule by Se ybold MG oral 00:00: mouth Capsule 00 daily Sennosides 0 Yes [id number] 1{capsu Take 1 Che[place]enne (Senna) 8.6 1-26 le} capsule by Se ybold MG oral 00:00: mouth Capsule 00 daily Sennosides 0 Yes [id number] 1{capsu Take 1 [place]enne (Senna) 8.6 1-26 le} capsule by Se ybold MG oral 00:00: mouth Capsule 00 daily Sennosides 0 Yes [id number] 1{capsu Take 1 [place]enne (Senna) 8.6 1-26 le} capsule by Se ybold MG oral 00:00: mouth Capsule 00 daily Sennosides 0 Yes [id number] 1{capsu Take 1 [place]enne (Senna) 8.6 1-26 le} capsule by Se ybold MG oral 00:00: mouth Capsule 00 daily Sennosides 0 Yes [id number] 1{capsu Take 1 [place] (Senna) 8.6 1-26 le} capsule by Se ybold MG oral 00:00: mouth Capsule 00 daily Sennosides 2021-0 Yes [id number] 1{capsu Take 1 [place] (Senna) 8.6 1-26 le} capsule by Se ybold MG oral 00:00: mouth Capsule 00 daily Metoprolol 2021-0 Yes [id number] 50mg Take 1 K elsey Tartrate 50 1-26 tablet (50 Se ybold MG oral 00:00: mg total) Tablet 00 by mouth 2 times daily Sennosides 2021-0 Yes [id number] 1{capsu Take 1 Che[place]enne (Senna) 8.6 1-26 le} capsule by Se ybold MG oral 00:00: mouth Capsule 00 daily Docusate 2021-0 Yes [id number] 100mg Take 100 [place] Sodium 100 1-26 mg by Seybold MG oral 00:00: mouth 2 Tablet 00 times daily Sennosides 0 Yes [id number] 1{capsu Take 1 [place] (Senna) 8.6 1-26 le} capsule by Se ybold MG oral 00:00: mouth Capsule 00 daily Sennosides 2021-0 Yes [id number] 1{capsu Take 1 [place] (Senna) 8.6 1-26 le} capsule by Se ybold MG oral 00:00: mouth - Capsule 00 daily Externa l Gabapentin 2021-0 Yes [id number] Ke lsey 800 MG oral 1-24 Seybold Tablet 00:00: 00 Gabapentin 2022-0 Yes [id number] Ke lsey 800 MG oral 1-24 Seybold Tablet 00:00: 00 Gabapentin 2022-0 Yes [id number] Ke lsey 800 MG oral 1-24 Seybold Tablet 00:00: 00 Gabapentin 2022-0 Yes [id number] Ke lsey 800 MG oral 1-24 Seybold Tablet 00:00: 00 Gabapentin 2022-0 Yes [id number] Ke lsey 800 MG oral 1-24 Seybold Tablet 00:00: 00 Gabapentin 2022-0 Yes [id number] Ke lsey 800 MG oral 1-24 Seybold Tablet 00:00: 00 Gabapentin 2022-0 Yes [id number] Ke lsey 800 MG oral 1-24 Seybold Tablet 00:00: 00 Gabapentin 2022-0 Yes [id number] Ke lsey 800 MG oral 1-24 Seybold Tablet 00:00: 00 Gabapentin 2022-0 Yes [id number] Ke lsey 800 MG oral 1-24 Seybold Tablet 00:00: 00 Gabapentin 2022-0 Yes [id number] Ke lsey 800 MG oral 1-24 Seybold Tablet 00:00: 00 Gabapentin 2022-0 2022- No [id number] K elsey 800 MG oral 1-24 11-28 Seybold Tablet 00:00: 00:00 - 00 :00 Externa l Morphine 2022-0 Yes [id number] Wanda ey Sulfate ER 1-15 Seybold 15 MG oral 00:00: Tab CR 00 Morphine 2022-0 Yes [id number] Wanda ey Sulfate ER 1-15 Seybold 15 MG oral 00:00: Tab CR 00 Morphine 2022-0 Yes [id number] Wanda ey Sulfate ER 1-15 Seybold 15 MG oral 00:00: Tab CR 00 Morphine 2022-0 Yes [id number] Wanda ey Sulfate ER 1-15 Seybold 15 MG oral 00:00: Tab CR 00 Morphine 2022-0 Yes [id number] Wanda ey Sulfate ER 1-15 Seybold 15 MG oral 00:00: Tab CR 00 Morphine 2022-0 Yes [id number] Wanda ey Sulfate ER 1-15 Seybold 15 MG oral 00:00: Tab CR 00 Morphine 2022-0 Yes [id number] Wanda ey Sulfate ER 1-15 Seybold 15 MG oral 00:00: Tab CR 00 Morphine 2022-0 Yes [id number] Wanda ey Sulfate ER 1-15 Seybold 15 MG oral 00:00: Tab CR 00 Morphine 2022-0 Yes [id number] Wanda ey Sulfate ER 1-15 Seybold 15 MG oral 00:00: Tab CR 00 Morphine 2022-0 Yes [id number] Wanda ey Sulfate ER 1-15 Seybold 15 MG oral 00:00: Tab CR 00 Morphine 2022-0 Yes [id number] Wanda ey Sulfate ER 1-15 Seybold 15 MG oral 00:00: - Tab CR 00 Externa l Doxepin HCl 2022-0 Yes [id number] Ke lsey 25 MG oral 1-12 Seybold Capsule 00:00: 00 Doxepin HCl 2022-0 Yes [id number] Ke lsey 25 MG oral 1-12 Seybold Capsule 00:00: 00 Doxepin HCl 2021-0 Yes [id number] Ke lsey 25 MG oral 1-12 Seybold Capsule 00:00: 00 Doxepin HCl 2022-0 2022- No [id number] K elsey 25 MG oral -12 -23 Seybold Capsule 00:00: 00:00 00 :00 Lokelma 10 2022-0 Yes [id number] Cole sey g oral Pack 1-10 Seybold 00:00: 00 Lokelma 10 2022-0 Yes [id number] Cole sey g oral Pack 1-10 Seybold 00:00: 00 Lokelma 10 2-0 Yes [id number] Cole sey g oral Pack 1-10 Seybold 00:00: 00 Lokelma 10 2-0 Yes [id number] Cole sey g oral Pack 1-10 Seybold 00:00: 00 Lokelma 10 2-0 Yes [id number] Cole sey g oral Pack 1-10 Seybold 00:00: 00 Lokelma 10 2022-0 Yes [id number] Cole sey g oral Pack 1-10 Seybold 00:00: 00 Lokelma 10 2-0 Yes [id number] Cole sey g oral Pack 1-10 Seybold 00:00: 00 Lokelma 10 2022-0 Yes [id number] Cole sey g oral Pack 1-10 Seybold 00:00: 00 Lokelma 10 2022-0 Yes [id number] Cole sey g oral Pack 1-10 Seybold 00:00: 00 Lokelma 10 2-0 Yes [id number] Cole sey g oral Pack 1-10 Seybold 00:00: 00 Sodium 2022-0 2023- No [id number] 650mg Take 650 K elsey Bicarbonate 1-10 01-11 mg by Seybol d 650 MG oral 00:00: 05:59 mouth 3 Tablet 00 :00 times daily Sodium 2022-0 2023- No [id number] 650mg Take 650 K elsey Bicarbonate 1-10 01-11 mg by Seybol d 650 MG oral 00:00: 05:59 mouth 3 Tablet 00 :00 times daily Sodium 2022-0 2023- No [id number] 650mg Take 650 K elsey Bicarbonate 1-10 01-11 mg by Seybol d 650 MG oral 00:00: 05:59 mouth 3 Tablet 00 :00 times daily Sodium 2021-0 2023- No [id number] 650mg Take 650 K elsey Bicarbonate 1-10 01-11 mg by Seybol d 650 MG oral 00:00: 05:59 mouth 3 Tablet 00 :00 times daily Sodium 2021-0 2023- No [id number] 650mg Take 650 K elsey Bicarbonate 1-10 01-11 mg by Seybol d 650 MG oral 00:00: 05:59 mouth 3 Tablet 00 :00 times daily Sodium 2021-0 2023- No [id number] 650mg Take 650 K elsey Bicarbonate 1-10 01-11 mg by Seybol d 650 MG oral 00:00: 05:59 mouth 3 Tablet 00 :00 times daily Sodium 2021-0 3- No [id number] 650mg Take 650 K elsey Bicarbonate 1-10 01-11 mg by Seybol d 650 MG oral 00:00: 05:59 mouth 3 Tablet 00 :00 times daily Sodium 2021-0 2023- No [id number] 650mg Take 650 K elsey Bicarbonate 1-10 01-11 mg by Seybol d 650 MG oral 00:00: 05:59 mouth 3 Tablet 00 :00 times daily Sodium 2021-0 3- No [id number] 650mg Take 650 K elsey Bicarbonate 1-10 01-11 mg by Seybol d 650 MG oral 00:00: 05:59 mouth 3 Tablet 00 :00 times daily Sodium 2021-0 3- No [id number] 650mg Take 650 K elsey Bicarbonate 1-10 01-11 mg by Seybol d 650 MG oral 00:00: 05:59 mouth 3 Tablet 00 :00 times daily Movantik 25 2021-0 Yes [id number] K elsey MG oral 1-05 Seybold Tablet 00:00: 00 Movantik 25 2021-0 Yes [id number] K elsey MG oral 1-05 Seybold Tablet 00:00: 00 Movantik 25 2021-0 Yes [id number] K elsey MG oral 1-05 Seybold Tablet 00:00: 00 Movantik 25 2021-0 Yes [id number] K elsey MG oral 1-05 Seybold Tablet 00:00: 00 Movantik 25 2021-0 Yes [id number] K elsey MG oral 1-05 Seybold Tablet 00:00: 00 Movantik 25 2021-0 Yes [id number] K elsey MG oral 1-05 Seybold Tablet 00:00: 00 Movantik 25 2021-0 Yes [id number] K elsey MG oral 1-05 Seybold Tablet 00:00: 00 Movantik 25 2021-0 Yes [id number] K elsey MG oral 1-05 Seybold Tablet 00:00: 00 Movantik 25 2021-0 Yes [id number] K elsey MG oral 1-05 Seybold Tablet 00:00: 00 Movantik 25 2021-0 Yes [id number] K elsey MG oral 1-05 Seybold Tablet 00:00: 00 Ferrous 2020-02 Yes [id number] Kelse y Sulfate 325 2-26 Seybold (65 Fe) MG 00:00: oral Tablet 00 Ferrous 2020-02 Yes [id number] Kelse y Sulfate 325 2-26 Seybold (65 Fe) MG 00:00: oral Tablet 00 Ferrous 2020-02 Yes [id number] Kelse y Sulfate 325 2-26 Seybold (65 Fe) MG 00:00: oral Tablet 00 Ferrous 2020-02 Yes [id number] Kelse y Sulfate 325 2-26 Seybold (65 Fe) MG 00:00: oral Tablet 00 Ferrous 2020-02 Yes [id number] Kelse y Sulfate 325 2-26 Seybold (65 Fe) MG 00:00: oral Tablet 00 Ferrous 2020-02 Yes [id number] Kelse y Sulfate 325 2-26 Seybold (65 Fe) MG 00:00: oral Tablet 00 Ferrous 2020-02 Yes [id number] Kelse y Sulfate 325 2-26 Seybold (65 Fe) MG 00:00: oral Tablet 00 Ferrous 2020-02 Yes [id number] Kelse y Sulfate 325 2-26 Seybold (65 Fe) MG 00:00: oral Tablet 00 Ferrous 2020-02 Yes [id number] Kelse y Sulfate 325 2-26 Seybold (65 Fe) MG 00:00: oral Tablet 00 Ferrous 2020-02 Yes [id number] Kelse y Sulfate 325 2-26 Seybold (65 Fe) MG 00:00: oral Tablet 00 [facility] Vitamin 2021-1 Yes [id number] K elsey B12 1000 2-08 Seybold MCG oral 00:00: Tab CR 00 Magnesium 2021-1 Yes [id number] Wanda ey Oxide 420 2-08 Seybold MG oral 00:00: Tablet 00 [facility] Vitamin 2021-1 Yes [id number] K elsey B12 1000 2-08 Seybold MCG oral 00:00: Tab CR 00 Magnesium 2021-1 Yes [id number] Wanda ey Oxide 420 2-08 Seybold MG oral 00:00: Tablet 00 [facility] Vitamin 2021-1 Yes [id number] K elsey B12 1000 2-08 Seybold MCG oral 00:00: Tab CR 00 Magnesium 2021-1 Yes [id number] Wanda ey Oxide 420 2-08 Seybold MG oral 00:00: Tablet 00 [facility] Vitamin 2021-1 Yes [id number] K elsey B12 1000 2-08 Seybold MCG oral 00:00: Tab CR 00 Magnesium 2021-1 Yes [id number] Wanda ey Oxide 420 2-08 Seybold MG oral 00:00: Tablet 00 [facility] Vitamin 2021-1 Yes [id number] K elsey B12 1000 2-08 Seybold MCG oral 00:00: Tab CR 00 Magnesium 2021-1 Yes [id number] Wanda ey Oxide 420 2-08 Seybold MG oral 00:00: Tablet 00 [facility] Vitamin 2021-1 Yes [id number] K elsey B12 1000 2-08 Seybold MCG oral 00:00: Tab CR 00 Magnesium 2021-1 Yes [id number] Wanda ey Oxide 420 2-08 Seybold MG oral 00:00: Tablet 00 [facility] Vitamin 2021-1 Yes [id number] K elsey B12 1000 2-08 Seybold MCG oral 00:00: Tab CR 00 Magnesium 2021-1 Yes [id number] Wanda ey Oxide 420 2-08 Seybold MG oral 00:00: Tablet 00 [facility] Vitamin 2021-1 Yes [id number] K elsey B12 1000 2-08 Seybold MCG oral 00:00: Tab CR 00 [facility] Vitamin 2021-1 Yes [id number] K elsey B12 1000 2-08 Seybold MCG oral 00:00: Tab CR 00 Magnesium 2021-1 Yes [id number] Wanda ey Oxide 420 2-08 Seybold MG oral 00:00: Tablet 00 Magnesium 2020-02 Yes [id number] Wanda ey Oxide 420 2-08 Seybold MG oral 00:00: Tablet 00 [facility] Vitamin 2020-02 Yes [id number] K elsey B12 1000 2-08 Seybold MCG oral 00:00: Tab CR 00 Magnesium 2020-02 Yes [id number] Wanda ey Oxide 420 2-08 Seybold MG oral 00:00: Tablet 00 [facility] Vitamin 2020-02 Yes [id number] K elsey B12 1000 2-08 Seybold MCG oral 00:00: - Tab CR 00 Externa l Ascorbic 2020-02 Yes [id number] 1{tbl} Take 1 Che[place] Acid 500 MG 1-22 tablet by Sey bold oral Tablet 00:00: mouth 2 00 times daily Ascorbic 2020-02 Yes [id number] 1{tbl} Take 1 [place] Acid 500 MG 1-22 tablet by Sey bold oral Tablet 00:00: mouth 2 00 times daily Ascorbic 2020-02 Yes [id number] 1{tbl} Take 1 [place] Acid 500 MG 1-22 tablet by Sey bold oral Tablet 00:00: mouth 2 00 times daily Ascorbic 2020-02 Yes [id number] 1{tbl} Take 1 [place] Acid 500 MG 1-22 tablet by Sey bold oral Tablet 00:00: mouth 2 00 times daily Ascorbic 2020-02 Yes [id number] 1{tbl} Take 1 [place] Acid 500 MG 1-22 tablet by Sey bold oral Tablet 00:00: mouth 2 00 times daily Ascorbic 2020-02 Yes [id number] 1{tbl} Take 1 [place] Acid 500 MG 1-22 tablet by Sey bold oral Tablet 00:00: mouth 2 00 times daily Ascorbic 2020-02 Yes [id number] 1{tbl} Take 1 [place] Acid 500 MG 1-22 tablet by Sey bold oral Tablet 00:00: mouth 2 00 times daily Ascorbic 2020-02 Yes [id number] 1{tbl} Take 1 [place] Acid 500 MG 1-22 tablet by Sey bold oral Tablet 00:00: mouth 2 00 times daily Ascorbic 2020-02 Yes [id number] 1{tbl} Take 1 [place] Acid 500 MG 1-22 tablet by Sey bold oral Tablet 00:00: mouth 2 00 times daily Ascorbic 2020-02 Yes [id number] 1{tbl} Take 1 [place] Acid 500 MG 1-22 tablet by Sey bold oral Tablet 00:00: mouth 2 00 times daily Amlodipine 2021- No [id number] 5mg Take 5 mg Cheyenne Besylate 5 09-02- by mouth Seyb old MG oral 00:00: 04:59 daily Tablet 00 :00 Amlodipine 2021- No [id number] 5mg Take 5 mg Che[place] Besylate 5 09-02- by mouth Seyb old MG oral 00:00: 04:59 daily Tablet 00 :00 Amlodipine 2021- No [id number] 5mg Take 5 mg [place] Besylate 5 09-02- by mouth Seyb old MG oral 00:00: 04:59 daily Tablet 00 :00 Amlodipine 2021- No [id number] 5mg Take 5 mg [place] Besylate 5 09-02- by mouth Seyb old MG oral 00:00: 04:59 daily Tablet 00 :00 Amlodipine 2021- No [id number] 5mg Take 5 mg [place] Besylate 5 09-02- by mouth Seyb old MG oral 00:00: 04:59 daily Tablet 00 :00 Amlodipine 2021- No [id number] 5mg Take 5 mg Cheyenne Besylate 5 09-02-29 by mouth Seyb old MG oral 00:00: 00:00 daily Tablet 00 :00 gabapentin 2020-0 Yes 800mg Take 800 Un luz marina 800 mg 5-17 mg by ity of tablet 00:00: mouth [place] 00 every 6 Medical (six) Branch hours. [...] mg by ity of tablet 00:00: mouth [place] 00 every 6 Medical (six) Branch hours. Immunizations Ordered Immunization Filled Immunization Date Status Commen ts Source Name Name Influenza Virus 2021-12-01 Completed Cheyenne peterson - Vaccine, age 6 months 00:00:00 Ext ernal and up SARS-COV-2 COVID-19 2021-01-10 Completed Unive rsity of PFIZER VACCINE 00:00:00 [facility] SARS-COV-2 COVID-19 2021-01-10 Completed Unive rsity of PFIZER VACCINE 00:00:00 [facility] SARS-COV-2 COVID-19 2021-01-10 Completed Unive rsity of PFIZER VACCINE 00:00:00 [facility] SARS-COV-2 COVID-19 2021-01-10 Completed Unive rsity of PFIZER VACCINE 00:00:00 [facility] SARS-COV-2 COVID-19 2021-01-10 Completed Unive rsity of PFIZER VACCINE 00:00:00 [facility] SARS-COV-2 COVID-19 2021-01-10 Completed Unive rsity of PFIZER VACCINE 00:00:00 [facility] Covid-19 Vaccine 2021-01-10 Completed Cheyenne romeo (Pfizer), Mrna-lnp, 00:00:00 Noam Protein, Pf, 30mcg/0.3ml,IM Covid-19 Vaccine 2021-01-10 Completed Cheyenne bloodbold (Pfizer), Mrna-lnp, 00:00:00 Noam Protein, Pf, 30mcg/0.3ml,IM Covid-19 Vaccine 2021-01-10 Completed Cheyenne bloodbold (Pfizer), Mrna-lnp, 00:00:00 Noam Protein, Pf, 30mcg/0.3ml,IM Covid-19 Vaccine 2021-01-10 Completed Cheyenne bloodbold (Pfizer), Mrna-lnp, 00:00:00 Noam Protein, Pf, 30mcg/0.3ml,IM Covid-19 Vaccine 2021-01-10 Completed Cheyenne bloodbold (Pfizer), Mrna-lnp, 00:00:00 Noam Protein, Pf, 30mcg/0.3ml,IM Covid-19 Vaccine 2021-01-10 Completed Cheyenne S eybold ([facility]), Mrna-lnp, 00:00:00 Noam Protein, Pf, 30mcg/0.3ml,IM Covid-19 Vaccine 2021-01-10 Completed Cheyenne S eybold (Pfizer), Mrna-lnp, 00:00:00 Noam Protein, Pf, 30mcg/0.3ml,IM Covid-19 Vaccine 2021-01-10 Completed Cheyenne S eybold ([facility]), Mrna-lnp, 00:00:00 Noam Protein, Pf, 30mcg/0.3ml,IM Covid-19 Vaccine 2021-01-10 Completed Cheyenne S eybold ([facility]), Mrna-lnp, 00:00:00 Noam Protein, Pf, 30mcg/0.3ml,IM Covid-19 Vaccine 2021-01-10 Completed Cheyenne S eybold ([facility]), Mrna-lnp, 00:00:00 Noam Protein, Pf, 30mcg/0.3ml,IM Covid-19 Vaccine 2021-01-10 Completed Cheyenne S eybold ([facility]), Mrna-lnp, 00:00:00 Noam Protein, Pf, 30mcg/0.3ml,IM Covid-19 Vaccine 2021-01-10 Completed Cheyenne S eybold ([facility]), Mrna-lnp, 00:00:00 Noam Protein, Pf, 30mcg/0.3ml,IM Covid-19 Vaccine 2021-01-10 Completed Cheyenne S eybold ([facility]), Mrna-lnp, 00:00:00 Noam Protein, Pf, 30mcg/0.3ml,IM Covid-19 Vaccine 2021-01-10 Completed Cheyenne S eybold ([facility]), Mrna-lnp, 00:00:00 Noam Protein, Pf, 30mcg/0.3ml,IM Covid-19 [...] Covid-19 Vaccine 2021-01-10 Completed Cheyenne S eybold - (Pfizer), Mrna-lnp, 00:00:00 Exter nal Noam Protein, Pf, 30mcg/0.3ml,IM Covid-19 Vaccine 2021-01-10 Completed Cheyenne S eybold - (Pfizer), Mrna-lnp, 00:00:00 Exter nal Noam Protein, Pf, 30mcg/0.3ml,IM SARS-COV-2 COVID-19 2020-04-27 Completed Unive rsity of PFIZER VACCINE 00:00:00 [facility] SARS-COV-2 COVID-19 2020-04-27 Completed Unive rsity of PFIZER VACCINE 00:00:00 [facility] SARS-COV-2 COVID-19 2020-04-27 Completed Unive rsity of PFIZER VACCINE 00:00:00 [facility] SARS-COV-2 COVID-19 2020-04-27 Completed Unive rsity of PFIZER VACCINE 00:00:00 [facility] SARS-COV-2 COVID-19 2020-04-27 Completed Unive rsity of PFIZER VACCINE 00:00:00 [facility] SARS-COV-2 COVID-19 2020-04-27 Completed Unive rsity of PFIZER VACCINE 00:00:00 [facility] Covid-19 Vaccine 2020-04-27 Completed Cheyenne S eybold (Pfizer), Mrna-lnp, 00:00:00 Noam Protein, Pf, 30mcg/0.3ml,IM Covid-19 Vaccine 2020-04-27 Completed Cheyenne S eybold ([facility]), Mrna-lnp, 00:00:00 Noam Protein, Pf, 30mcg/0.3ml,IM Covid-19 Vaccine 2020-04-27 Completed Cheyenne S eybold (Pfizer), Mrna-lnp, 00:00:00 Noam Protein, Pf, 30mcg/0.3ml,IM Covid-19 Vaccine 2020-04-27 Completed Cheyenne S eybold ([facility]), Mrna-lnp, 00:00:00 Noam Protein, Pf, 30mcg/0.3ml,IM Covid-19 Vaccine 2020-04-27 Completed [facility] ([facility]), Mrna-lnp, 00:00:00 Noam Protein, Pf, 30mcg/0.3ml,IM Covid-19 Vaccine 2020-04-27 Completed [facility] ([facility]), Mrna-lnp, 00:00:00 Noam Protein, Pf, 30mcg/0.3ml,IM Covid-19 Vaccine 2020-04-27 Completed [facility] ([facility]), Mrna-lnp, 00:00:00 Noam Protein, Pf, 30mcg/0.3ml,IM Covid-19 Vaccine 2020-04-27 Completed [facility] ([facility]), Mrna-lnp, 00:00:00 Noam Protein, Pf, 30mcg/0.3ml,IM Covid-19 Vaccine 2020-04-27 Completed [facility] ([facility]), Mrna-lnp, 00:00:00 Noam Protein, Pf, 30mcg/0.3ml,IM Covid-19 Vaccine 2020-04-27 Completed [facility] ([facility]), Mrna-lnp, 00:00:00 Noam Protein, Pf, 30mcg/0.3ml,IM Covid-19 Vaccine 2020-04-27 Completed [facility] ([facility]), Mrna-lnp, 00:00:00 Noam Protein, Pf, 30mcg/0.3ml,IM Covid-19 Vaccine 2020-04-27 Completed [facility] ([facility]), Mrna-lnp, 00:00:00 Noam Protein, Pf, 30mcg/0.3ml,IM Covid-19 Vaccine 2020-04-27 Completed Cheyenne S eybold ([facility]), Mrna-lnp, 00:00:00 Noam Protein, Pf, 30mcg/0.3ml,IM Covid-19 Vaccine 2020-04-27 Completed Cheyenne S eybold ([facility]), Mrna-lnp, 00:00:00 Noam Protein, Pf, 30mcg/0.3ml,IM Covid-19 Vaccine 2020-04-27 Completed Cheyenne S eybold ([facility]), Mrna-lnp, 00:00:00 Noam Protein, Pf, 30mcg/0.3ml,IM Covid-19 Vaccine 2020-04-27 Completed Cheyenne S eybold ([facility]), Mrna-lnp, 00:00:00 Noam Protein, Pf, 30mcg/0.3ml,IM Covid-19 Vaccine 2020-04-27 Completed Cheyenne S eybold ([facility]), Mrna-lnp, 00:00:00 Noam Protein, Pf, 30mcg/0.3ml,IM Covid-19 Vaccine 2020-04-27 Completed Chyeenne S eybold ([facility]), Mrna-lnp, 00:00:00 Noam Protein, Pf, 30mcg/0.3ml,IM Covid-19 Vaccine 2020-04-27 Completed Cheyenne S eybold ([facility]), Mrna-lnp, 00:00:00 Noam Protein, Pf, 30mcg/0.3ml,IM Covid-19 Vaccine 2020-04-27 Completed Cheyenne S eybold - ([facility]), Mrna-lnp, 00:00:00 Exter nal Noam Protein, Pf, 30mcg/0.3ml,IM Covid-19 Vaccine 2020-04-27 Completed Cheyenne S eybold - ([facility]), Mrna-lnp, 00:00:00 Exter nal Noam Protein, Pf, 30mcg/0.3ml,IM Covid-19 Vaccine 2020-04-06 Completed Cheyenne S eybold ([facility]), Mrna-lnp, 00:00:00 Noam Protein, Pf, 30mcg/0.3ml,IM Covid-19 Vaccine 2020-04-06 Completed Cheyenne S eybold ([facility]), Mrna-lnp, 00:00:00 Noam Protein, Pf, 30mcg/0.3ml,IM Covid-19 Vaccine 2020-04-06 Completed Cheyenne S eybold ([facility]), Mrna-lnp, 00:00:00 Noam Protein, Pf, 30mcg/0.3ml,IM Covid-19 Vaccine 2020-04-06 Completed Cheyenne S eybold ([facility]), Mrna-lnp, 00:00:00 Noam Protein, Pf, 30mcg/0.3ml,IM Covid-19 Vaccine 2020-04-06 Completed Cheyenne S eybold ([facility]), Mrna-lnp, 00:00:00 Noam Protein, Pf, 30mcg/0.3ml,IM Covid-19 Vaccine 2020-04-06 Completed Cheyenne S eybold ([facility]), Mrna-lnp, 00:00:00 Noam Protein, Pf, 30mcg/0.3ml,IM Covid-19 [...] Covid-19 Vaccine 2020-04-06 Completed Cheyenne Uriarte eybold - ([facility]), Mrna-lnp, 00:00:00 Exter nal Noam Protein, Pf, 30mcg/0.3ml,IM Covid-19 Vaccine 2020-04-06 Completed Cheyenne Uriarte eybold - ([facility]), Mrna-lnp, 00:00:00 Exter nal Noam Protein, Pf, 30mcg/0.3ml,IM SARS-COV-2 COVID-19 2020-04-06 Completed Unive rsity of PFIZER VACCINE 00:00:00 [facility] SARS-COV-2 COVID-19 2020-04-06 Completed Unive rsity of PFIZER VACCINE 00:00:00 [facility] SARS-COV-2 COVID-19 2020-04-06 Completed Unive rsity of PFIZER VACCINE 00:00:00 [facility] SARS-COV-2 COVID-19 2020-04-06 Completed Unive rsity of PFIZER VACCINE 00:00:00 [facility] SARS-COV-2 COVID-19 2020-04-06 Completed Unive rsity of PFIZER VACCINE 00:00:00 [facility] SARS-COV-2 COVID-19 2020-04-06 Completed Unive rsity of PFIZER VACCINE 00:00:00 [facility] Covid-19 Vaccine 2020-04-06 Completed Cheyenne Uriarte eybold ([facility]), Mrna-lnp, 00:00:00 Noam Protein, Pf, 30mcg/0.3ml,IM Covid-19 Vaccine 2020-04-06 Completed Cheyenne Uriarte eybold ([facility]), Mrna-lnp, 00:00:00 Noam Protein, Pf, 30mcg/0.3ml,IM Covid-19 Vaccine 2020-04-06 Completed Cheyenne S eybold ([facility]), Mrna-lnp, 00:00:00 Noam Protein, Pf, 30mcg/0.3ml,IM Covid-19 Vaccine 2020-04-06 Completed Cheyenne S eybold ([facility]), Mrna-lnp, 00:00:00 Noam Protein, Pf, 30mcg/0.3ml,IM Covid-19 Vaccine 2020-04-06 Completed Cheyenne S eybold ([facility]), Mrna-lnp, 00:00:00 Noam Protein, Pf, 30mcg/0.3ml,IM Covid-19 Vaccine 2020-04-06 Completed Cheyenne S eybold ([facility]), Mrna-lnp, 00:00:00 Noam Protein, Pf, 30mcg/0.3ml,IM Influenza, Seasonal, 2018-11-01 Completed Wanda ey Seybold [...] Influenza, Seasonal, 2018-11-01 Completed Wanda ey Seybold - Injectable 00:00:00 External Influenza Virus 2018-11-01 Completed Cheyenne Se ybold - Vaccine, Unspecified 00:00:00 Exte rnal Formulation Influenza Virus 2018-11-01 Completed Universit y of Vaccine (3+ yrs) 00:00:00 [facility] Influenza Virus 2018-11-01 Completed Universit y of Vaccine 00:00:00 [facility] Influenza Virus 2018-11-01 Completed Universit y of Vaccine (3+ yrs) 00:00:00 [facility] Influenza Virus 2018-11-01 Completed Universit y of Vaccine 00:00:00 [facility] Influenza Virus 2018-11-01 Completed Universit y of Vaccine (3+ yrs) 00:00:00 [facility] Influenza Virus 2018-11-01 Completed Universit y of Vaccine 00:00:00 [facility] Influenza Virus 2018-11-01 Completed Universit y of Vaccine (3+ yrs) 00:00:00 [facility] Influenza Virus 2018-11-01 Completed Universit y of Vaccine 00:00:00 [facility] Influenza Virus 2018-11-01 Completed Universit y of Vaccine (3+ yrs) 00:00:00 [facility] Influenza Virus 2018-11-01 Completed Universit y of Vaccine 00:00:00 [facility] Influenza Virus 2018-11-01 Completed Universit y of Vaccine (3+ yrs) 00:00:00 [facility] Influenza Virus 2018-11-01 Completed Universit y of Vaccine 00:00:00 [facility] Pneumococcal Vaccine, 2018-09-08 Completed Cole sey Seybold [...] Pneumococcal Vaccine, 2018-09-08 Completed Cole sey Seybold - Polysaccharide 00:00:00 External Pneumococcal 2018-09-08 Completed University o f Polysaccharide, [...] 00:00:00 [place] [facility] PPSV23 (PNEUMOVAX) Branch Vital Signs Vital Name Observation Time Observation Value Comments Source Systolic blood 2022-01-05 16:43:00 110 mm[Hg] Cheyenne Seybold - pressure External Diastolic blood 2022-01-05 16:43:00 68 mm[Hg] Quan y Seybold - pressure External Heart rate 2022-01-05 16:43:00 72 /min Cheyenne S eybold - External Body temperature 2022-01-05 16:43:00 35.39 Carlyn Wanda ey Seybold - External Respiratory rate 2022-01-05 16:43:00 16 /min Wanda ey Seybold - External Body height 2022-01-05 16:43:00 188 cm Cheyenne S eybold - External Body weight 2022-01-05 16:43:00 116.574 kg Cheyenne S eybold - External BMI 2022-01-05 16:43:00 33.00 kg/m2 Cheyenne S eybold - External Body weight 2021-10-08 14:40:00 120.203 kg [facility] BMI 2021-10-08 14:40:00 34.02 kg/m2 [facility] Systolic blood 2021-06-25 16:08:00 140 mm[Hg] [...] Heart rate 2021-03-05 16:16:00 106 /min Cheyenne S eybold Body temperature 2021-03-05 16:16:00 35.67 Carlyn Wanda ey Seybold Respiratory rate 2021-03-05 16:16:00 12 /min Wanda ey Seybold Body height 2021-03-05 16:16:00 188 cm Cheyenne S eybold Body weight 2021-03-05 16:16:00 118.842 kg Cheyenne romeo BMI 2021-03-05 16:16:00 33.64 kg/m2 Cheyenne bloodmarisela Procedures Procedure Date / Time Performing Clinician Source Performed OPHTHALMOLOGY DIAGNOSTIC 2021-12-02 05:01:00 Doctor Unassigned, No [facility] TEST Name Medical Branch OU CORNEAL TOPOGRAPHY, 2021-12-02 00:00:00 Micah Serrano [facility] BOTH EYES Medical Branch HEPATITIS B SURFACE 2021-09-12 03:08:00 [facility] ANTIGEN Center HEPATITIS B SURFACE 2021-09-12 03:08:00 [facility] ANTIBODY Center HEPATITIS B CORE 2021-09-12 03:08:00 [facility] ANTIBODY, TOTAL Center FUNGUS CULTURE 2021-06-26 02:23:00 Neftali Parker [facility] SHOULDER 3 VIEW RIGHT 2021-05-16 16:50:00 Ryder aNthan (ORTHO) KNEE ROUTINE 38 YEARS 2021-05-16 16:20:08 [...] Date Details Comments Source Future Scheduled 2021-12-10 COVID-19 VACCINE (4 - Me [facility] Test 05:45:32 Booster for Pfizer series) [code = COVID-19 VACCINE (4 - Booster for Pfizer series)] Future Scheduled 2021-12-10 INFLUENZA VACCINE Method [facility] Test 05:45:32 [code = INFLUENZA VACCINE] Future Scheduled 2021-12-10 HEPATITIS B VACCINES [facility] Test 05:45:32 (1 of 3 - 3-dose series) [code = HEPATITIS B VACCINES (1 of 3 - 3-dose series)] Future Scheduled 2021-12-10 COLONOSCOPY SCREENING [facility] Test 05:45:32 [code = COLONOSCOPY SCREENING] Future Scheduled 2021-12-10 COVID-19 VACCINE (4 - [facility] Test 05:45:32 Booster for Pfizer series) [code = COVID-19 VACCINE (4 - Booster for Pfizer series)] Future Scheduled 2021-12-10 INFLUENZA VACCINE Method [facility] Test 05:45:32 [code = INFLUENZA VACCINE] Future Scheduled 2021-12-10 HEPATITIS B VACCINES [facility] Test 05:45:32 (1 of 3 - 3-dose series) [code = HEPATITIS B VACCINES (1 of 3 - 3-dose series)] Future Scheduled 2021-12-10 COLONOSCOPY SCREENING [facility] Test 05:45:32 [code = COLONOSCOPY SCREENING] Future Scheduled 2021-10-29 INFLUENZA VACCINE Method [facility] Test 05:44:13 [code = INFLUENZA VACCINE] Future Scheduled 2021-10-29 HEPATITIS B VACCINES [facility] Test 05:44:13 (1 of 3 - 3-dose series) [code = HEPATITIS B VACCINES (1 of 3 - 3-dose series)] Future Scheduled 2021-10-29 COLONOSCOPY SCREENING [facility] Test 05:44:13 [code = COLONOSCOPY SCREENING] Future Scheduled 2021-10-29 COVID-19 VACCINE (4 - Me [facility] Test 05:44:13 Booster for Pfizer series) [code = COVID-19 VACCINE (4 - Booster for Pfizer series)] Future Scheduled 2021-10-09 INFLUENZA VACCINE (#1) [facility] Test 00:00:00 [code = INFLUENZA Medical Ce nter VACCINE (#1)] Future Scheduled 2021-10-09 INFLUENZA VACCINE (#1) [facility] Test 00:00:00 [code = INFLUENZA Medical Ce nter VACCINE (#1)] Future Scheduled 2021-02-[address] [facility] Test 00:00:00 (12+) [code = Medical Center DEPRESSION SCREENING (12+)] Future Scheduled 2021-02-[address] [facility] Test 00:00:00 (12+) [code = Medical Center DEPRESSION SCREENING (12+)] Future Scheduled [address] [facility] Test 00:[facility]:00 (procedure) [code = [facility] [id number]] Future Scheduled [address] [facility] Test 00:00:00 (procedure) [code = [facility] [id number]] Future Scheduled 1992 DTAP/TDAP/TD VACCINES [facility] Test 00:00:00 (1 - Tdap) [code = Medical C enter DTAP/TDAP/TD VACCINES (1 - Tdap)] Future Scheduled 1992 DTAP/TDAP/TD VACCINES [facility] Test 00:00:00 (1 - Tdap) [code = Medical C enter DTAP/TDAP/TD VACCINES (1 - Tdap)] Future Scheduled 1991-12-18 HEPATITIS C [facility]CREENING [facility] Test 00:00:00 [code = HEPATITIS C Medical Center SCREENING] Future Scheduled 1991-12-18 HEPATITIS C [facility]CREENING [facility] Test 00:00:00 [code = HEPATITIS C Medical Center SCREENING] Future Scheduled [address] [facility] Test 00:00:00 Counseling and Medical Cente r Screening (12+) [code = Tobacco Cessation Counseling and Screening (12+)] Future Scheduled 1974-06-16 COVID-19 VACCINE (#1) [facility] Test 00:00:00 [code = COVID-[address] VACCINE (#1)] Future Scheduled 1974-06-16 COVID-19 VACCINE (#1) [facility] 00:00:00 [code = COVID-[address] VACCINE (#1)] Future Scheduled [address] [facility] Test 00:00:00 (combo) [code = CT Medical C enter Colonography (combo)] Future Scheduled [address] [facility] Test 00:00:00 malignant neoplasm of Medica l Center colon (procedure) [code = 904883524] Future Scheduled [address] [facility] Test 00:00:00 malignant neoplasm of Medica l Center colon (procedure) [code = 925916972] Future Scheduled [address] [facility] Test 00:00:00 malignant neoplasm of Medica l Center colon (procedure) [code = 519186445] Future Scheduled [address] [facility] Test 00:00:00 malignant neoplasm of Medica l Center colon (procedure) [code = 754778696] Future Scheduled 1973 Sigmoidoscopy [code [facility] Sigmoidoscopy] Medical Zhou r Future Scheduled [address] [facility] Test 00:00:00 (combo) [code = CT Medical C enter Colonography (combo)] Future Scheduled [address] [facility] [facility] Test 00:00:00 malignant neoplasm of Medica l Center colon (procedure) [code = 317917810] Future Scheduled [address] [facility] Test 00:00:00 malignant neoplasm of Medica l Center colon (procedure) [code = 464133884] Future Scheduled [address] [facility] Test 00:00:00 malignant neoplasm of Medica l Center colon (procedure) [code = 724855218] Future Scheduled [address] [facility] [facility] Test 00:00:00 malignant neoplasm of Medica l Center colon (procedure) [code = 227948908] Future Scheduled 1973 Sigmoidoscopy [facility]code [facility] 00:[facility] Sigmoidoscopy] Medical Zhou r Encounters Start End Encounter Admission Attending Care Care Encounter Source Date/Time Date/Time Type Type Clinicians Facility Department ID 2022-01-07 2022-01-07 Outpatient CHEYENNE BEDOYA [id number] [place] 10:00:00 10:00:00 MIRA almaraz 2022-01-05 2022-01-05 Outpatient CHEYENNE VALLE [id number] [place] 10:30:00 10:30:00 CAROLINE Seybol d 2021-12-24 2021-12-24 Outpatient R JOVONADELINEKVNG [facility] [id number] Univers 10:00:00 10:00:00 ED lundy [facility] 2021-12-03 2021-12-03 Outpatient CHEYENNE VALLE [id number] [place] 09:00:00 09:00:00 CAROLINE Seybol d 2021-12-02 2021-12-02 [id number] Univers 09:00:00 09:47:08 [facility] 2021-12-02 2021-12-02 [facility] 1.2.840.114 [id number] [facility] 09:00:00 09:47:08 Visit [facility] [id number] it y of EYE [id number] [facility] [id number] [facility] 136 Branch 2021-12-02 2021-12-02 Outpatient LEONARD CHEYENNE DIAZ [id number] [place] 00:00:00 00:00:00 CAROLINE Grimesol awa 2021-12-02 2021-12-02 Orders Doctor MAYA 1.2.840.114 [id number] Univers 00:00:00 00:00:00 Only Unassigned, BA 350.1.13.10 ity of [place] [facility] 4.2.7.2.686 [facility] [id number] [facility] 009 Branch 2021-12-01 2021-12-01 Outpatient LAB90 CHEYENNE DIAZ [id number] [place] 09:45:00 09:45:00 Seybol d 2021-12-01 2021-12-01 Outpatient CHEYENNE VALLE [id number] [place] 09:00:00 09:00:00 CAROLINE Seybol d 2021-11-25 2021-11-25 Outpatient CHEYENNE VALLE [id number] [place] 09:00:00 09:00:00 CAROLINE Seybol awa 2021-11-13 2021-11-13 [facility] 1.2.840.114 [id number] Univers 00:00:00 00:00:00 [employer] [facility] [id number] it y of EYE 4.2.7.2.686 [facility] [id number] [address] 2021-10-21 2021-10-21 [facility] 1.2.840.114 [id number] Univers 00:00:00 00:00:00 [employer] HEALTH 350.1.13.10 it y of EYE 4.2.7.2.686 [facility] [id number] [address] 2021-10-15 2021-10-15 Outpatient AOSM AOSM [id number] Sharon 00:00:00 00:00:00 [id number] Orthop e dic Sports Medic[facility] e 2021-10-08 2021-10-08 [facility] [id number] Univers 09:30:00 10:36:53 HUMAIR ity [facility] 2021-10-08 2021-10-08 [facility] 1.2.840.114 [id number] Univers 09:30:00 10:36:53 Visit [employer] [facility] 350.1.13.10 it y of EYE 4.2.7.2.686 [facility] [id number] [address] 2021-10-08 2021-10-08 [facility] [id number] Univers 09:30:00 10:36:53 HUMAIR ity Formerly [facility] 2021-10-08 2021-10-08 [facility] [id number] Univers 09:30:00 09:30:00 HUMAIR ity Formerly [facility] 2021-10-08 2021-10-08 Outpatient CHEYENNE BEDOYA [id number] [place] 08:00:00 08:00:00 MIRA almaraz 2021-10-08 2021-10-08 Orders Doctor MAYA 1.2.840.114 [id number] Univers 00:00:00 00:00:00 Only Unassigned, BA 350.1.13.10 ity of [place] [facility] 4.2.7.2.686 Sukhjinder [id number] [facility] 009 Branch 2021-10-03 2021-10-03 Outpatient LAB90 CHEYENNE DIAZ [id number] [place] 10:35:00 10:35:00 Seybol d 2021-09-30 2021-09-30 Refill Nidia [facility] 1.2.840.114 [id number] Univers 00:00:00 00:00:00 [employer] HEALTH 350.1.13.10 it y of EYE 4.2.7.2.686 [facility] [id number] [facility] 136 Branch 2021-09-25 2021-09-25 Outpatient LAB90 CHEYENNE DIAZ [id number] [place] 09:50:00 09:50:00 Seybol awa 2021-09-25 2021-09-25 Office Surendra Gusman 1.2.840.114 [id number] [place] 09:00:00 09:15:00 Visit Evie He 350.1.13.13 Se kristen [place] 1.2.7.2.686 [id number] 2021-09-25 2021-09-25 Outpatient CHEYENNE GUSMAN [id number] [place] 00:00:00 00:00:00 EVIE almaraz 2021-09-24 2021-09-24 [facility] [id number] Univers 13:30:00 14:26:29 HUMAIR ity of [facility] 2021-09-24 2021-09-24 Office [facility] 1.2.840.114 [id number] Univers 13:30:00 14:26:29 Visit [facility] 350.1.13.10 it y of EYE 4.2.7.2.686 [facility] [id number] [facility] 136 Branch 2021-09-22 2021-09-22 Outpatient CHEYENNE VALLE [id number] [place] 10:00:00 10:00:00 CAROLINE Grimesol awa 2021-09-22 2021-09-22 Orders Doctor TRJEO 1.2.840.114 [id number] Univers 00:00:00 00:00:00 Only Unassigned, BA 350.1.13.10 ity of [place] [facility] 4.2.7.2.686 Sukhjinder [id number] [facility] 009 Branch 2021-09-17 2021-09-17 Outpatient LAB90 CHEYENNE DIAZ [id number] [place] 09:45:00 09:45:00 Thomas almaraz 2021-09-17 2021-09-17 Office Surendra Gusman 1.2.840.114 [id number] [place] 09:00:00 09:30:00 Visit Evie He 350.1.13.13 Se kristen [place] 1.2.7.2.686 [id number] 2021-09-12 2021-09-12 Lab [facility] [id number] 00:00[facility]00 [facility]00 [facility] 2021-09-12 2021-09-12 Lab [facility] [id number] 00:00:00 00:00:00 Requisitio [facility] 2021-09-11 2021-09-11 Outpatient LEONARD, CHEYENNE DIAZ [id number] [place] 00:00:00 00:00:00 CAROLINE almaraz 2021-09-05 2021-09-05 Outpatient R NIDIA [facility] [id number] Univers 13:30:00 14:26:19 HUMAIR ity [facility] 2021-09-05 2021-09-05 Office ROBSON Jacob 1.2.840.114 [id number] Univers 13:30:00 14:26:19 Visit [facility] Wavii 350.1.13.10 it y of EYE 4.2.7.2.686 [facility] [id number] [facility] 136 Branch 2021-09-05 2021-09-05 Outpatient R NIDIA [facility] [id number] Univers 13:30:00 13:30:00 HUMAIR ity Formerly [facility] 2021-08-27 2021-08-27 Patient ROBSON Jacob 1.2.840.114 [id number] Univers 00:00:00 00:00:00 Secure Msg [employer] HEALTH 350.1.13.10 ity of EYE 4.2.7.2.686 [facility] [place] [id number] [facility] 136 [place] 2021-08-27 2021-08-27 Orders Doctor MAYA 1.2.840.114 [id number] Univers 00:00:00 00:00:00 Only Unassigned, BA 350.1.13.10 ity of [place] [facility] 4.2.7.2.686 Sukhjinder [id number] [address] 2021-08-22 2021-08-22 [facility] [id number] Univers 14:00:00 14:54:52 HUMAIR ity [facility] 2021-08-22 2021-08-22 Office Nidia [facility] 1.2.840.114 [id number] Univers 14:00:00 14:54:52 [facility] 350.1.13.10 it y of EYE 4.2.7.2.686 [facility] s [place] [id number] [address] 2021-08-22 2021-08-22 [facility] [id number] Univers 14:00:00 14:00:00 [facility] 2021-08-12 2021-08-12 Outpatient CHEYENNE VALLE [id number] [place] 00:00:00 00:00:00 CAROLINE almaraz 2021-08-08 2021-08-08 Outpatient Tawana JACOB [facility] [id number] Univers 15:30:00 16:30:03 HUMAIR ity [facility]ly [facility] 2021-08-08 2021-08-08 Office Nidia MAPALLAVI 1.2.840.114 [id number] Univers 15:30:00 16:30:03 [facility] 350.1.13.10 it y of EYE 4.2.7.2.686 [facility] s [place] [id number] [address] 2021-08-08 2021-08-08 Outpatient Tawana JACOB [facility] [id number] Univers 15:30:00 16:30:03 HUMAIR ity Formerly [facility] 2021-08-08 2021-08-08 Outpatient Tawana JACOB [facility] [id number] Univers 15:30:00 16:30:03 HUMAIR ity Formerly [facility] 2021-07-30 2021-07-30 Outpatient Tawana JACOB [facility] [id number] Univers 10:30:00 10:30:00 HUMAIR ity [facility]ly [facility] 2021-07-22 2021-07-22 Outpatient CHEYENNE VALLE [id number] [place] 13:30:00 13:30:00 CAROLINE almaraz 2021-07-15 2021-07-15 Outpatient Tawana JACOB [facility] [id number] Univers 13:00:00 13:57:05 HUMAIR itmargaret [facility]ly [facility] 2021-07-15 2021-07-15 Outpatient Tawana JACOB [facility] [id number] Univers 13:00:00 13:57:05 [facility] 2021-07-15 2021-07-15 Office [facility] 1.2.840.114 [id number] Univers 13:00:00 13:57:05 Visit [facility] 350.1.13.10 [place] 4.2.7.2.[id number] [address] 2021-07-15 2021-07-15 Outpatient LEONARD CHEYENNE DIAZ [id number] [place] 00:00:00 00:00:00 CAROLINE almaraz 2021-07-14 2021-07-14 [facility] [id number] Univers 10:15:00 10:15:00 [facility] 2021-07-09 2021-07-09 Outpatient R PARKERMALISSA [facility] [id number] Univers 15:15:00 16:31:00 [facility] 2021-07-09 2021-07-09 Office [facility] 1.2.840.114 [id number] Univers 15:15:00 16:31:00 Visit Andrés MULTISPEC 350.1.13.10 it[place].2.7.2.[place] [id number] [facility] [place] [address] Branch [facility] 2021-07-08 2021-07-08 Outpatient CHEYENNE VALLE [id number] [place] 00:00:00 00:00:00 CAROLINE almaraz 2021-07-08 2021-07-08 Transition [facility] 1.2.840.114 [id number] Univers 00:00:00 00:00:00 of Care Mickie MANCUSO 350.1.13.10 i ty of [place] 4.2.7.2.686 [facility] [id number] [facility] 403 Branch 2021-07-01 2021-07-05 Inpatient X SANDORFrancine [facility] TIFFANIE [id number] Univers 10:06:00 17:49:[address] [facility] 2021-07-01 2021-07-05 Inpatient X ENZO [facility] TIFFANIE [id number] Univers 10:06:00 17:49:[address] [facility] 2021-07-01 2021-07-05 [facility] Jelly Alcantara [id number] Univers 10:06:00 17:49:00 Encounter Herrera Yoo 350.1.1 3.10 ity of [facility] [id number] [place] [id number] [facility] [address] 2021-07-02 2021-07-02 Outpatient DIANNA JOHNSON [id number] [place] 10:30:00 10:30:00 Thomas almaraz 2021-07-02 2021-07-02 Outpatient Tawana JACOB [facility] [id number] Univers 09:15:00 09:15:00 HUMAIR ity [facility] 2021-07-01 2021-07-01 Outpatient Tawana JACOB [facility] [id number] Univers 09:00:00 09:30:19 HUMAIR itmargaret [facility] 2021-07-01 2021-07-01 Office PHILOMENA Jacob [id number] Univers 09:00:00 09:30:19 Visit Almas Lee [id number] it y of NATIONAL [id number] Sukhjinder as BANK [id number] [facility] BLDG. [address] 2021-07-01 2021-07-01 Orders Doctor MAYA [id number] Univers 00:00:00 00:00:00 Only Unassigned, BA 350.1.13.10 ity of [place] [facility] 4.2.7.2.686 Sukhjinder as [phone] [facility] [address] 2021-06-30 2021-06-30 Telephone [facility] 1.2.098.110 [id number] Univers 00:00:00 00:00:00 [facility] HEALTH 350.1.13.10 it y of [place] [id number] [facility] [address] 2021-06-27 2021-06-27 Outpatient Tawana [facility] [id number] Univers 14:00:00 14:00:00 HUMAIR ity Formerly [facility] 2021-06-26 2021-06-26 Outpatient CHEYENNE DIAZ [id number] [place] 07:35:00 07:35:00 Seybol d 2021-06-26 2021-06-26 Outpatient CHEYENNE DIAZ [id number] [place] 07:05:00 07:05:00 Seybol d 2021-06-26 2021-06-26 Outpatient CHEYENNE BEDOYA [id number] [place] 07:00:00 07:00:00 MIRA Seybol d 2021-06-26 2021-06-26 Outpatient CHEYENNE CACERES [id number] [place] 00:00:00 00:00:00 SHAHEEN Negro ld 2021-06-25 2021-06-25 Lab Keith 1.2.840.1 [id number] Methodi 21:20:00 21:25:00 Neftali 35794.1.1 063 [facility] 3.430.2.7 Hospit a .3.572680 l .8 2021-06-25 2021-06-25 Samira Parker 1.2.840.1 [id number] [id number] Methodi 21:20:00 21:25:[address] Zander 3.430.2.7 Hospit a .3.795302 l .8 2021-06-25 2021-06-25 Office KORIN NATHAN 1.2.840.114 [id number] [place] 11:20:00 11:20:00 Visit [facility] 350.1.13.13 Se ybold 1.2.7.2.686 [id number] 0 2021-06-25 2021-06-25 Outpatient KYMBERLY CHEYENNE DIAZ [id number] [place] 00:00:00 00:00:00 JASON Seybol d 2021-06-25 2021-06-25 Travel 1.2.840.1 1.2.192.627 [id number] Methodi 00:00:00 00:00:[address] 3.430.2.7 0.2.7.3.698 Ho spita .3.871773 084.8 l .8 2021-06-25 2021-06-25 Travel 1.2.840.1 1.2.773.414 [id number] Methodi 00:00:00 00:00:[address] 3.430.2.7 0.2.7.3.698 Ho spita .3.988324 084.8 l .8 2021-06-23 2021-06-23 Outpatient ELKE CHEY[place]NE DIAZ [id number] [place] 00:00:00 00:00:00 AHMED Seybol d 2021-06-20 2021-06-20 Telemedici Dianna Johnson 1.2.840.11 [id number] [place] 10:15:00 10:26:50 ne T D 350.1.13.13 Se ybold 1.2.7.2.686 [id number] 5 2021-06-16 2021-06-17 Outpatient Adebayo GARCIA [facility] [id number] Univers 06:11:00 14:35:00 FIDEL lundy Formerly [facility] 2021-06-16 2021-06-17 Emergency Guzman Oliva [facility] 1.2.840. 114 [id number] [facility] 06:11:00 14:35:00 Fidel Garcia 350.1.13.10 [facility] 4.2.7.2.686 [facility] [phone] [place] [address] Branch 2021-06-16 2021-06-16 Outpatient DIANNA JOHNSON [id number] [place] 15:15:00 15:15:00 Seybol d 2021-06-16 2021-06-16 Outpatient CHEYENNE VALLE [id number] [place] 00:00:00 00:00:00 CAROLINE Seybol d 2021-06-14 2021-06-14 Outpatient CHEYENNE VALLE [id number] [place] 00:00:00 00:00:00 CAROLINE Seybol d 2021-06-07 2021-06-07 Outpatient CHEYENNE NATHAN 1090 [id number] [place] 00:00:00 00:00:00 RYDER Seybol d 2021-06-07 2021-06-07 Outpatient DIANNA JOHNSON [id number] [place] 00:00:00 00:00:00 Seybol d 2021-06-05 2021-06-05 Outpatient CHEYENNE BEDOYA [id number] [place] 09:02:00 09:02:00 AHMED Seybol d 2021-06-05 2021-06-05 Outpatient CHEYENNE DIAZ [id number] [place] 07:15:00 07:15:00 Seybol d 2021-06-05 2021-06-05 Outpatient CHEYENNE CACERES [id number] [place] 00:00:00 00:00:00 SHAHEEN Negro ld 2021-06-04 2021-06-04 Outpatient CHEYENNE BEDOYA [id number] [place] 00:00:00 00:00:00 AHMED Seybol d 2021-06-04 2021-06-04 Outpatient CHEYENNE MONTAÑO [id number] [place] 00:00:00 00:00:00 ADRYENE Seybol d 2021-06-03 2021-06-03 Outpatient MARY ESPANA [place]NE DIAZ [id number] [place] 10:30:00 10:30:00 Seybol d 2021-05-23 2021-05-23 Outpatient CHEYENNE DIAZ [id number] [place] 14:00:00 14:00:00 Seybol d 2021-05-23 2021-05-23 Outpatient [facility] CHE[place]NE DIAZ [id number] [place] 12:05:00 12:05:00 Seybol d 2021-05-23 2021-05-23 Office Diego Martin 1.2.840.114 1 [id number] [place] 11:20:00 11:40:00 Visit 350.1.13.13 Se ybold 1.2.7.2.686 [id number] 2021-05-23 2021-05-23 Outpatient CHEYENNE NATHAN [id number] [place] 00:00:00 00:00:00 RYDER Seybol d 2021-05-21 2021-05-21 Outpatient AHMET [place]NE DIAZ [id number] [place] 00:00:00 00:00:00 AMARJIT Seybol d 2021-05-19 2021-05-19 Outpatient AHMET [place] DIAZ [id number] [place] 00:00:00 00:00:00 AMARJIT Seybol d 2021-05-16 2021-05-16 Outpatient CHEYENNE DIAZ [id number] [place] 11:45:00 11:45:00 Seybol d 2021-05-16 2021-05-16 Outpatient GERARDO [place]NE DIAZ [id number] [place] 11:45:00 11:45:00 NEY Seybol d 2021-05-16 2021-05-16 Office KOIRN Nathan 1.2.840.114 [id number] [place] 11:00:00 11:20:00 Visit [facility] 350.1.13.13 Se ybold 1.2.7.2.686 [id number] 2021-05-16 2021-05-16 Outpatient CHEYENNE DIAZ [id number] [place] 11:05:00 11:05:00 Seybol d 2021-05-16 2021-05-16 Outpatient MARY ESPANA CHE[place]NE DIAZ [id number] [place] 09:10:00 09:10:00 Seybol d 2021-05-12 2021-05-12 Outpatient JOHNSON, DIANNA [place]NE DIAZ [id number] [place] 00:00:00 00:00:00 Seybol d 2021-05-11 2021-05-11 Outpatient JOHNSON, DIANNA [place]NE DIAZ [id number] [place] 00:00:00 00:00:00 Seybol d 2021-05-08 2021-05-08 Outpatient ADOLPHMeccaCHEYENNE [id number] [place] 09:30:00 09:30:00 AMARJIT Seybol d 2021-05-06 2021-05-06 Outpatient LAB90 CHEY[place]NE DIAZ [id number] [place] 10:55:00 10:55:00 Seybol d 2021-05-06 2021-05-06 Office Surendra Valle 1.2.840.114 [id number] [place] 10:00:00 10:30:00 [facility].1.13.13 [facility] 1.2.7.2.686 [id number] 0 2021-05-05 2021-05-05 Outpatient CHEYENNE BEDOYA [id number] [place] 00:00:00 00:00:00 AHMED Seybol d 2021-05-05 2021-05-05 Outpatient CHEYENNE BEDOYA [id number] [place] 00:00:00 00:00:00 AHMED Seybol d 2021-05-05 2021-05-05 Outpatient ALEXIAVINCEoSha DIAZ [id number] [place] 00:00:00 00:00:00 MD RAJAN Seybol d 2021-05-05 2021-05-05 Outpatient JOHNSON DIANNA DIAZ [id number] [place] 00:00:00 00:00:00 Seybol d 2021-05-02 2021-05-02 Office Dianna Johnson 1.2.840.114 1 [id number] [place] 10:15:00 10:30:00 Visit Ezio Almaraz 350.1.13.13 Se ybold 1.2.7.2.686 [id number] 5 2021-05-02 2021-05-02 Outpatient CHEYENNE WASHINGTON [id number] [place] 09:00:00 09:00:00 CARMENCITA Seybol d 2021-04-30 2021-04-30 Outpatient LAB45 CHE[place]NE DIAZ [id number] [place] 10:25:00 10:25:00 Seybol d 2021-04-30 2021-04-30 Office PAWEL Leo 1.2.544.378 [id number] [place] 08:45:00 09:15:00 Visit Amarjit CLARKE 350.1.13.13 Seybold DIAGNOSTI 1.2.7.2.686 [facility] [id number] 2021-04-30 2021-04-30 Outpatient CHEYENNE VALLE [id number] [place] 08:30:00 08:30:00 CAROLINE Seybol d 2021-04-25 2021-04-25 Inpatient Jack Montaño HCAPM RADI [id number] [facility] 10:00:00 10:00:00 57 [facility] 2021-04-23 2021-04-23 Outpatient CHEYENNE GUEVARA [id number] [place] 09:00:00 09:00:00 JOSE Seybol d 2021-04-22 2021-04-22 Outpatient CHEYENNE DIAZ [id number] [place] 07:00:00 07:00:00 Seybol d 2021-04-22 2021-04-22 Outpatient CHEYENNE GUSMAN [id number] [place] 00:00:00 00:00:00 EVIE Seybol d 2021-04-22 2021-04-22 Outpatient CHEYENNE GUSMAN [id number] [place] 00:00:00 00:00:00 EVIE Seybol d 2021-04-18 2021-04-18 Outpatient CHEYENNE DIAZ [id number] [place] 14:00:00 14:00:00 Seybol d 2021-04-18 2021-04-18 Outpatient LEONARD [place]NE DIAZ [id number] [place] 00:00:00 00:00:00 CAROLINE Seybol d 2021-04-17 2021-04-17 Outpatient Jack Montaño [facility] [id number] [facility] 14:14:00 14:14:00 21 [facility] 2021-04-15 2021-04-15 Outpatient Jack Montaño [facility] [id number] [facility] 15:51:00 15:51:00 75 [facility] 2021-04-14 2021-04-14 Outpatient CHEYENNE VALLE [id number] [place] 00:00:00 00:00:00 CAROLINE Seybol d 2021-04-11 2021-04-11 Outpatient LAB90 CHEYENNE DIAZ [id number] [place] 10:20:00 10:20:00 Seybol d 2021-04-10 2021-04-10 Outpatient CHEYENNE VALLE [id number] [place] 00:00:00 00:00:00 CAROLINE Seybol d 2021-04-07 2021-04-07 Outpatient CHEYENNE DIAZ [id number] [place] 10:05:00 10:05:00 Seybol d 2021-04-07 2021-04-07 Outpatient CHEYENNE DIAZ [id number] [place] 10:00:00 10:00:00 Seybol d 2021-04-07 2021-04-07 Outpatient CHEYENNE DIAZ [id number] [place] 09:55:00 09:55:00 Seybol d 2021-04-07 2021-04-07 Outpatient CHEYENNE DIAZ [id number] [place] 09:50:00 09:50:00 Seybol d 2021-04-07 2021-04-07 Outpatient CHEYENNE DIAZ [id number] [place] 09:05:00 09:05:00 Seybol d 2021-04-07 2021-04-07 Office DIANNA JOHNSON 1.2.840.114 1 [id number] [place] 09:00:00 09:00:00 Visit MEDICAL & 350.1.13.13 Seybold DIAGNOSTI 1.2.7.2.686 [facility] [id number] 2021-04-04 2021-04-04 Outpatient CHEYENNE VALLE [id number] [place] 00:00:00 00:00:00 CAROLINE Brittybol d 2021-04-03 2021-04-03 Outpatient CHEYENNE LEO [id number] [place] 15:30:00 15:30:00 AMARJIT Seybol d 2021-04-02 2021-04-02 Outpatient LAB90 CHEY[place]NE DIAZ [id number] [place] 11:25:00 11:25:00 Seybol d 2021-04-02 2021-04-02 Office Surendra Valle 1.2.840.114 [id number] [place] 10:00:00 10:30:00 Visit Caroline He 350.1.13.13 Se kristen 1.2.7.2.686 [id number] 2021-03-24 2021-03-28 Inpatient U FÉLIX [facility] [id number] Univers 19:41:00 16:22:00 [facility] ity Formerly [facility] 2021-03-24 2021-03-28 [facility] Felicia Griffin 1.2.840. 114 [id number] Univers 19:41:00 16:22:00 Encounter Sharita Sanchez 350.1.13.10 ity of [facility] 4.2.7.2.686 [place] [id number] [address] 2021-03-26 2021-03-26 Outpatient CHEYENNE VALLE [id number] [place] 00:00:00 00:00:00 CAROLINE Brittybol waa 2021-03-26 2021-03-26 Outpatient CHEYENNE VALLE [id number] [place] 00:00:00 00:00:00 CAROLINE Grimesol awa 2021-03-24 2021-03-24 Orders Doctor TREJO 1.2.840.114 [id number] Univers 00:00:00 00:00:00 Only UnassBA brown 350.1.13.10 ity of [place] [facility] 4.2.7.2.686 Sukhjinder as [id number] [facility] [address] 2021-03-06 2021-03-06 Outpatient CHEYENNE VALLE CHEYENNE [id number] [place] 00:00:00 00:00:00 CAROLINE almaraz 2021-03-05 2021-03-05 Office Surendra Valle 1.2.840.114 [id number] [place] 10:30:00 11:00:00 Visit Caroline He 350.1.13.13 kristen 1.2.7.2.686 [id number] 2021-03-05 2021-03-05 Outpatient CHEYENNE VALLE CHEYENNE [id number] [place] 00:00:00 00:00:00 CAROLINE almaraz 2021-01-16 2021-01-16 Transition FELIPA Jackson 1.2.840.114 [id number] Univers 00:00:00 00:00:00 of Care Mickie MANCUSO 350.1.13.10 i ty [place] [id number] [facility] [address] 2021-01-12 2021-01-15 [facility] Kim Ba [facility] 1.2.840. 114 [id number] Univers 20:00:00 13:44:00 Encounter Cici Watson 350.1.13.10 ity [facility] [place].2.7.2.[place] [id number] [facility] [address] 2021-01-12 2021-01-15 Inpatient X WALTER [facility] [id number] Univers 20:00:00 13:44:00 CICI lundy [facility] 2021-01-10 2021-01-10 Outpatient Tawana YOO [facility] [id number] Univers 14:10:00 14:10:00 HERRERA ludny [facility] 2021-01-10 2021-01-10 Imm/Inj Nurse, Adc Pob Immunization [facility] 1.2.840.114 [id number] Univers 14:04:54 14:05:05 Visit Herrera Yoo 350.1.13 .10 ity [facility] [place]2.[place].2.[place] [facility] [id number] Me dical NAL 421 [facility] 2020-04-27 2020-04-27 Outpatient [facility] [id number] Univers 09:45:00 09:45:00 ity of [facility] 2020-04-06 2020-04-06 Outpatient R ELIDA, [facility] [id number] Univers 09:55:00 09:55:00 LOS ity of [facility] 2020-04-04 2020-04-04 Letter Doctor MAYA 1.2.840.114 [id number] Univers 00:00:00 00:00:00 (Out) Unassigned, BA 350.1.13.10 ity of [place] [facility] 4.2.7.2.686 Sukhjinder as [id number] [address] 2019-07-20 2019-07-20 Telephone [facility] 1.2.840.114 [id number] [facility] 00:00:00 00:00:00 [facility] [employer] [facility] 350.1.13.10 it y of Surgical 4.2.7.2.686 Sukhjinder as Specialti [id number] Nh dical es [address] [facility] 2019-07-20 2019-07-20 [facility] 1.2.840.114 [id number] 00:00:00 00:00:00 Lisha MovieLaLa 350.1.13.10 Surgical 4.2.7.2.686 Specialti [id number] es [address] 2019-07-06 2019-07-06 [facility] 1.2.840.114 [id number] Univers 00:00:00 00:00:00 Lisha MovieLaLa 350.1.13.10 it y of Surgical 4.2.7.2.686 Sukhjinder as Specialti [id number] Me dical es [address] [facility] 2019-07-06 2019-07-06 [facility] 1.2.840.114 [id number] 00:00:00 00:00:00 Lisha MovieLaLa 350.1.13.10 Surgical 4.2.7.2.686 Specialti [id number] es [address] [place] [address] 2019-07-04 2019-07-04 Telephone [facility] 1.2.840.114 [id number] Univers 00:00:00 00:00:00 Lisha Pinzon 350.1.13.10 it y of Surgical 4.2.7.2.686 Sukhjinder as Specialti [id number] Nh dical es [address] [facility] 2019-07-04 2019-07-04 Telephone Bandar MAPALLAVI 1.2.840.114 [id number] 00:00:00 00:00:00 iLsha Pinzon 350.1.13.10 Surgical 4.2.7.2.686 Specialti [id number] es [address] 2019-06-29 2019-06-29 Office Bandar [facility] 1.2.328.353 [id number] [facility] 08:56:15 09:22:49 Visit Lisha Pinzon 350.1.13.10 it y of Surgical 4.2.7.2.686 Sukhjinder as Specialti [id number] Nh dical es [address] [facility] 2019-06-29 2019-06-29 Office Bandar [facility] 1.2.560.649 [id number] 08:56:15 09:22:49 Visit Lisha Pinzon 350.1.13.10 Surgical 4.2.7.2.686 Specialti [id number] es [address] [place] [address] 2019-06-29 2019-06-29 Outpatient R BANDAR [facility] [id number] Univers 09:00:00 09:00:00 LISHA lundy [facility] 2019-05-02 2019-05-03 Inpatient [facility] [address] 07:39:00 19:00:00 [facility] 2019-04-11 2019-04-11 Outpatient [facility] [address] 11:28:00 14:50:00 MAYA Nguyen [facility] Results Test Description Test Time Test Comments Results Result Comments Source Hepatitis B surface antibody 2021-09-12 14:53:53 Test Item Value Reference Range Interpretation Comme nts Hep B S Ab (test code = <8.0 See_Comment [Au tomated message] The 68278-6) system which ge nerated this result transmit senthil reference range: <8.0 mIU /mL. The reference range was not used to interpret th is result as normal/abnormal . PHOENIX (test code = PHOENIX) Technical Inspector ID - BS Lab Interpretation (test Normal code = 21122-7) [facility] [id number] 14:53:53 Test Item Value Reference Range Interpretation Comments Hep B S Ab (test code <8.0 See_Comment [Auto mated = 05734-3) message] The system which generated this result transmit senthil reference range : <8.0 mIU/mL. Th e reference range was not used to interpret this result as normal/abnormal . PHOENIX (test code = PHOENIX) Technical Inspector ID - BS Lab Interpretation Normal (test code = 66212-3) [facility] [id number] 14:53:53 Test Item Value Reference Range Interpretation Comments HEPATITIS B SURFACE ANTIBODY < mIU/mL <8.0 (BEAKER) (test code = 647) Technical Inspector ID - BSHepatitis B surface [id number] 14:53:32 Test Item Value Reference Range Interpretation Comments Hepatitis B surface Nonreactive Nonreactive antigen (test code = 5195-3) PHOENIX (test code = PHOENIX) Specimen is considered negative for HBsAg. Lab Interpretation (test Normal code = 75054-9) [facility] antibody, [id number] 14:53:32 Test Item Value Reference Range Interpretation Comments Hep B Core Total Ab (test Nonreactive Nonreactive code = 99925-0) PHOENIX (test code = PHOENIX) Technical Inspector ID - BS Lab Interpretation (test Normal code = 42737-2) [facility] surface [id number] 14:53:32 Test Item Value Reference Range Interpretation Comments Hepatitis B surface Nonreactive Nonreactive antigen (test code = 5195-3) PHOENIX (test code = PHOENIX) Specimen is considered negative for HBsAg. Lab Interpretation (test Normal code = 37087-3) [facility] antibody, [id number] 14:53:32 Test Item Value Reference Range Interpretation Comments Hep B Core Total Ab (test Nonreactive Nonreactive code = 86143-4) PHOENIX (test code = PHOENIX) Technical Inspector ID - BS Lab Interpretation (test Normal code = 03345-5) [facility] B SURFACE [id number] 14:53:32 Test Item Value Reference Range Interpretation Comments HEPATITIS B SURFACE ANTIGEN (2) Nonreactive Nonreactive (BEAKER) (test code = 2585) Specimen is considered negative for HBsAg.HEPATITIS B CORE ANTIBODY, TOTAL 2021-09-12 14:53:32 Test Item Value Reference Range Interpretation Comments HEPATITIS B CORE TOTAL ANTIBODY Nonreactive Nonreactive (BEAKER) (test code = 497) Technical Inspector ID - BSBasil [id number] 19:50:00 Test Item Value Reference Interpretation Comments Range Fungus culture Fusarium A Specimen isolate (test code species Informati onSpecimen = 580-1) [facility]: [facility] Left Eye PHOENIX (test code = ONLY CXFUN IS PHOENIX) REQUESTED ON REQ Lab Interpretation Abnormal (test code = 07317-4) [facility] [id number] 19:50:00 Test Item Value Reference Interpretation Comments Range Fungus culture Fusarium A Specimen isolate (test code species Informati onSpecimen = 580-1) Source: CorneaS pecimen Site: Left Eye PHOENIX (test code = ONLY CXFUN IS PHOENIX) REQUESTED ON REQ Lab Interpretation Abnormal (test code = 17016-7) [facility] [id number] 19:50:00 Test Item Value Reference Interpretation Comments Range Fungus culture Fusarium A Specimen isolate (test code species Informati onSpecimen = 580-1) Source: CorneaS [facility] Site: Left Eye PHOENIX (test code = ONLY CXFUN IS PHOENIX) REQUESTED ON REQ Lab Interpretation Abnormal (test code = 07906-0) [facility] [id number] 16:56:00 Test Item Value Reference Range Interpretation Comments SPECIFIC GRAVITY 1.005-1.030 (test code = 5811-5) PH (test code = 5.0-7.5 5803-2) URINE-COLOR (test Yellow Yellow code = 5778-6) APPEARANCE (test code Clear Clear = 5767-9) WBC ESTERASE (test 1+ Negative A code = 5799-2) PROTEIN (test code = Negative Negative/Trace 84349-3) GLUCOSE (test code = Negative Negative 48681-2) KETONES (test code = Negative Negative 4-8) OCCULT BLOOD (test Negative Negative code = 5794-3) BILIRUBIN (test code Negative Negative = 5770-3) UROBILINOGEN,SEMI-QN 0.2 mg/dL 0.2-1.0 (test code = 28517-4) NITRITE, URINE (test Negative Negative code = 5802-4) MICROSCOPIC See below: Microscopic was EXAMINATION (test indicated and was code = 83142-0) performed. PHOENIX (test code = PHOENIX) [facility] results reported in Eastern Time. [facility] Clinical Information:SRC :Urine*Urine ?LCA Source of Specimen:Urine* Urine Lab Interpretation Abnormal (test code = 08953-4) [place] GrimesoldMICROSCOPIC [id number] 16:56:00 Test Item Value Reference Range Interpretation Comments WBC (test code = 11-30 See_Comment A [Automated 5821-4) message] The system which generated this result transmit senthil reference range : 0 - 5 /hpf. The reference range was not used to interpret this result as normal/abnormal . RBC (test code = None seen See_Comment [Automated 93140-0) message] The system which generated this result [...] code = None seen None seen /lpf 34939-7) BACTERIA (test code = None seen None seen/Few 5769-5) PHOENIX (test code = PHOENIX) [facility] results reported in [place] Time. [facility] Clinical Information:SRC :Urine*Urine ?LCA Source of Specimen:Urine* Urine Lab Interpretation Abnormal (test code = 73431-8) [place] CooperGNESIUM, [id number] 14:37:00 Test Item Value Reference Range Interpretation Comments MAGNESIUM, SERUM 1.9 mg/dL 1.6-2.3 (test code = 87788-9) PHOENIX (test code = PHOENIX) [facility] results reported in [place] Time. [facility] Clinical Information:LCA Source of Specimen:Blood, venous*Venipunc [place] SeyboldPHOSPHORUS, [id number] 14:37:00 Test Item Value Reference Range Interpretation Comments PHOSPHORUS, SERUM 3.2 mg/dL 2.8-4.1 (test code = 2777-1) PHOENIX (test code = PHOENIX) [facility] results reported in Eastern Time. [facility] Clinical Information:SRC:Blood, venous*Venipunc ture ? LCA Source of Specimen:Blood, venous*Venipunc [place] Lowe. METABOLIC PANEL (14)2021-04-03 14:09:00 Test Item Value Reference Range Interpretation Comments GLUCOSE, SERUM (test 101 mg/dL 65-99 H code = 2345-7) BUN (test code = 22 mg/dL 08-01 3094-0) CREATININE, SERUM 1.22 mg/dL 0.76-1.27 ? (test code = 2160-0) Effec tive April 07, 2021 [facility] will begin ? reporting the 2020 CKD-EPI creatin ine equation that ? estimat es kidney function without a race variable. EGFR IF NONAFRICN AM 70 mL/min/1.73 >59 (test code = 75165-3) EGFR IF AFRICN AM 81 mL/min/1.73 >59 In acc ordance with (test code = recommendations from 47430-4) the NKF-ASN Tas k force, ?[facility] rp [...] SERUM 105 mmol/L 96-106 (test code = 2075-0) CARBON DIOXIDE, 20 mmol/L 20-29 TOTAL (test code = 2027-) CALCIUM, SERUM (test 9.4 mg/dL 8.7-10.2 code = 11931-4) PROTEIN, TOTAL, 7.1 g/dL 6.0-8.5 SERUM (test code = 2885-2) ALBUMIN, SERUM (test 4.7 g/dL 4.0-5.0 code = 1751-7) GLOBULIN, TOTAL 2.4 g/dL 1.5-4.5 (test code = 04597-6) A/G RATIO (test code 1.2-2.2 = 1759-0) [...] [Automated message] code = 1920-8) The system [employer] generated this result transmitted ref erence range: 0 - 40 I U/L. The reference r reece was not used to interpret this result as normal/abnor mal. ALT (SGPT) (test See_Comment [Automated message] code = 1742-6) The system [employer] generated this result transmitted ref erence range: 0 - 44 I U/L. The reference r reece was not used to interpret this result as normal/abnor mal. PHOENIX (test code = [facility] PHOENIX) results reported in Eastern Time. [facility] Clinical Information:SR C:Blood, venous*Venipun c ture ? L[facility] Source of Specimen:Blood , venous*Venipun c Lab Interpretation Abnormal (test code = 42397-1) [place] Brady
[2022-01-05 17:38] LABS: SARS-CoV-2 Antigen Rapid Res Negative (Negative)
[2022-01-05] MEDS ORDERED: ACETAMINOPHEN 500 MG TAB PO PRN (17:58)
[2022-01-05] MEDS ORDERED: ONDANSETRON 4 MG/2 ML VIAL IV PRN (17:58)
--- NOTE | 2022-01-05 17:58 | P.HP ---
Certification for Inpatient Patient admitted to: Inpatient With expected LOS: >2 Midnights Patient will require the following post-hospital care: None Practitioner: I am a practitioner with admitting privileges, knowledge of patient current condition, hospital course, and medical plan of care. Services: Services provided to patient in accordance with Admission requirements found in Title 42 Section 412.3 of the Code of Federal Regulations Patient History Date of Service: 01/05/22 Reason for admission: Right foot osteomyelitis History of Present Illness: Patient is a 46yo who was admitted to the hospital with a right foot infection. Has an eschar on the right foot. Patient's been running fevers and patient's been having a lot of pain in the right foot. Patient does appear to have neuropathy and is pulsation is diminished. She will get an arterial Doppler and an MRI of the foot. We will get surgery consultation. Patient will be admitted to the hospital for further treatment. Patient will probably need prolonged IV antibiotic therapy. Allergies No Known Allergies Allergy (Verified 08/02/19 10:37) Home Medications: Gabapentin [Neurontin] 800 mg PO QID 04/02/19 Multivitamin [Daily Multiple Vitamin] 1 each PO DAILY 04/02/19 Tizanidine HCl [Zanaflex] 6 mg PO Q6H 04/02/19 Fluoxetine HCl [Prozac] 1 cap PO DAILY 12/20/20 Morphine *Extended Release* [MS Contin*] 1 tab PO DAILY 12/20/20 Carvedilol [Coreg] 2 tab PO BID 01/05/22 Doxepin HCl 75 mg PO BEDTIME 01/05/22 Hydrocodone Bit/Acetaminophen [Hydrocodon-Acetaminophn 10-325] 1 tab PO QID 01/05/22 - Past Medical/Surgical History Diabetic: Yes -: Chronic back pain -: DM II Dx age 22 -: Gastric ulcer -: Anemia -: HTN -: CKD II with proteinuria/ Hx MIGUEL followed by Dr. Ferguson -: R knee surgery -: Gastric bypass -: Phimosis skin graft -: Circumcision -: Jackie -: rt knee surg Psychosocial/ Personal History: Patient lives at home with his , is disabled - Family History Mother Medical History: Heart disease, Diabetes Notes: of cirrrosis of liver Father Medical History: Diabetes Brother Medical History: Hypertension, Diabetes Notes: at 39yr old from "natural causes" - Social History Smoking Status: Never smoker Alcohol use: No CD- Drugs: No Caffeine use: Yes Review of Systems 10-point ROS is otherwise unremarkable Physical Examination - Vital Signs Temperature: 99 F Blood Pressure: 100/60 Pulse: 99 Respirations: 18 Pulse Ox (%): 95 - Physical Exam General: Alert, In no apparent distress, Oriented x3 HEENT: Atraumatic, PERRLA, Mucous membr. moist/pink, EOMI, Sclerae nonicteric Neck: Supple, 2+ carotid pulse no bruit, No LAD, Without JVD or thyroid abnormality Respiratory: Clear to auscultation bilaterally, Normal air movement Cardiovascular: Regular rate/rhythm, Normal S1 S2, Abnormal pulses (dominished in the lower extremity) Gastrointestinal: Normal bowel sounds, Soft and benign, Non-distended, No tenderness Musculoskeletal: No clubbing, Swelling, Erythema, Tenderness Integumentary: No rashes, Tenderness/swelling, Erythema Neurological: Normal strength at 5/5 x4 extr, Cranial nerves 3-12 intact, Abnormal gait, Abnormal sensation Lymphatics: No axilla or inguinal lymphadenopathy Assessment & Plan - Problems (Diagnosis) (1) Diabetic neuropathy Current Visit: Yes Status: Acute (2) Osteomyelitis Current Visit: Yes Status: Acute (3) DM type 2 (diabetes mellitus, type 2) Current Visit: No Status: Chronic (4) Peripheral arterial disease Current Visit: Yes Status: Acute (5) Acute worsening of stage 3 chronic kidney disease Current Visit: No Status: Acute (6) Anemia Current Visit: No Status: Chronic Qualifiers: Anemia type: iron deficiency Iron deficiency anemia type: chronic blood loss Qualified Code(s): D50.0 - Iron deficiency anemia secondary to blood loss (chronic) - Plan Plan: 1. Continue with IV antibiotics 2. General surgery consultation 3. Arterial Doppler 4. MRI of the foot 5. Nephrology consultation for acute renal insufficiency 6. Gentle hydration 7. Strict blood sugar control 8. History of blood pressure control 9. GI DVT prophylaxis Discharge Plan: Home Plan to discharge in: Greater than 2 days - Advance Directives Does patient have a Living Will: No Does patient have a Durable POA for Healthcare: Yes - Code Status/Comfort Care Code Status Assessed: Yes Code Status: Full Code Critical Care: No Time Spent Managing PTS Care (In Minutes): 45
[2022-01-05] MEDS ORDERED: Levofloxacin 750mg IV 750 MG/150 ML BAG IV ONE (18:00)
[2022-01-05] MEDS ORDERED: D50W 25 GM/50 ML SYRINGE IV PRN (18:02)
[2022-01-05] MEDS ORDERED: GLUCAGON 1 MG/VIAL IM PRN (18:02)
[2022-01-05] MEDS ORDERED: VANCOMYCIN 2 GM in NA CHLORIDE 0.9% 500 ML IVPB ONE (18:30)
[2022-01-05] MEDS ORDERED: Levofloxacin 750mg IV 750 MG/150 ML BAG IV SCH (19:00)
[2022-01-05] MEDS: HYDROCODONE/APAP 10/325 TAB PO PRN (19:15)
[2022-01-05] MEDS: NA CHLORIDE 0.9% 1,000 ML IV SCH (19:28)
--- NOTE | 2022-01-05 20:25 | RAD REPORT ---
EXAM DESCRIPTION: US - Lower Extremity Arterial Bilat - 01/05/2022 8:13 pm CLINICAL HISTORY: PAD; right leg COMPARISON: None FINDINGS: Right lower extremity: The common femoral, superficial femoral and popliteal arteries in the right lower extremity demonstra te monophasic flow. The posterior tibial and dorsalis pedis arteries in the right lower extremity demonstrate monophasic flow. Left lower extremity: The common femoral, superficial femoral and popliteal arteries in the right lower extremity demonstra te triphasic flow. The left posterior tibial artery demonstrates monophasic flow. The dorsalis pedis demonstrates biphas ic flow. IMPRESSION: Right lower extremity: Monophasic flow throughout the right lower extremity would sugges t a high-grade stenosis at the right iliac arteries. Left lower extremity: Triphasic flow to the level of the popliteal artery. Monophasic flow in the pos terior tibial artery indicating at least a moderate stenosis. Biphasic flow in the dorsalis pedis michael soriano.
[2022-01-05] MEDS: INSULIN -REGULAR HUMAN 50 UNIT/0.5 ML ML SQ SCH (21:00)
[2022-01-05] MEDS ORDERED: PREGABALIN 50 MG CAP PO SCH (21:00)
[2022-01-05] MEDS: GABAPENTIN 300 MG CAP PO SCH (21:06)
[2022-01-05] MEDS: INSULIN GLARGINE 100 UNIT/ML SQ SCH (21:09)
[2022-01-05] MEDS: MORPHINE 4 MG/ML SYR IV PRN (22:14)
[2022-01-06] MEDS: HYDROCODONE/APAP 10/325 TAB PO PRN ×2 (01:44→20:16)
[2022-01-06 04:29] LABS: Absolute Lymphocytes (CBC) 1.2 K/uL (0.7-4.9); Hematocrit 25.8 % (39.6-49.0); Lymphocytes % 17.3 % (15.3-44.8); MCV 96.5 fL (80-100); MPV 7.6 fL (7.6-11.3); RBC Red Blood Cell Count 2.67 M/uL (4.33-5.43)
[2022-01-06 04:33] LABS: Protime INR 1.05
[2022-01-06 04:36] LABS: Potassium 5.2 mmol/L (3.5-5.1)
[2022-01-06] MEDS: INSULIN -REGULAR HUMAN 50 UNIT/0.5 ML ML SQ SCH ×4 (07:30→20:19)
[2022-01-06] MEDS: carvediloL 25 MG TAB PO SCH ×2 (08:00→16:31)
[2022-01-06] MEDS: FLUOXETINE 20 MG CAP PO SCH (09:00)
[2022-01-06] MEDS: GABAPENTIN 300 MG CAP PO SCH ×3 (09:00→20:16)
[2022-01-06] MEDS: MORPHINE 4 MG/ML SYR IV PRN (09:10)
[2022-01-06] MEDS ORDERED: BUPIVACAINE 0.5% PF 10 ML VIAL ONE (09:54)
[2022-01-06] MEDS ORDERED: FENTANYL CITR 100 MCG/2 ML ONE (10:08)
[2022-01-06] MEDS ORDERED: propofoL 200 MG/20 ML VIAL IV ONE (10:08)
[2022-01-06] MEDS ORDERED: LIDOCAINE 1% MPF 5 ML VIAL ONE (10:09)
[2022-01-06] MEDS ORDERED: MIDAZOLAM HCL 2 MG/2 ML INJ ONE (10:09)
[2022-01-06] MEDS ORDERED: NA CHLORIDE 0.9% 1,000 ML ONE (10:24)
[2022-01-06] MEDS ORDERED: ONDANSETRON 4 MG/2 ML VIAL ONE (11:01)
[2022-01-06] MEDS ORDERED: EPHEDRINE SULF 50 MG/ML VIAL ONE (11:09)
[2022-01-06] MEDS ORDERED: NS 0.9% VIAL 10 ML ONE (11:09)
--- NOTE | 2022-01-06 11:27 | P.BOP ---
Preoperative diagnosis: right foot cellulitis with necrotic infected diabetic ulcers Postoperative diagnosis: same Primary procedure: Excisional debridement R foot necrotic infected diabetic ulcer 7x7x1.5cm Estimated blood loss: <10cc Specimen: necrotic tissue, culture Findings: necrotic wounds, tendons exposed dorsum Anesthesia: General Complications: None Transferred to: Recovery Room Condition: Good
[2022-01-06] MEDS: HYDROMORPHONE HCL 1 MG/ML INJ ONE ×2 (11:46→11:56)
--- NOTE | 2022-01-06 15:48 | CON ---
Date of Consultation: 01/06/2022 Diagnoses: Right foot osteomyelitis, necrotic ulcers, diabetic foot ulcers. History Of Present Illness: This is the case of a 46-year-old patient, who comes to the hospital, ad mitted with necrotic wounds in the right foot with an abscess and cellulitis. The patient was consul senthil for Surgery for debridement. The patient was admitted with a working diagnosis of cellulitis and osteomyelitis. He denies any trauma. Review of Systems: Denies any shortness of breath, any chest pain, any fever. Past Medical History: Diabetes, gastric ulcers, anemia, hypertension, chronic kidney disease. Past Surgical History: Procedures; gastric bypass, circumcision, cholecystectomy, right knee surger y. Family History: Includes diabetes and heart disease. Social History: He does not smoke. He does not drink alcohol. Review of Systems: See above, although 10 points otherwise unremarkable. Physical Examination: General: The patient is awake, alert. HEENT: Pupils are equal and reactive. Anicteric. Neck: Supple. Chest: Clear. Heart: S1, S2. Abdomen: Soft and depressible. No guarding or rebound. Extremities: Diminished pulses bilaterally, although present dorsalis pedis and posterior tibialis. Good capillary refill. Over the right foot, the patient has cellulitis of the entire foot with swel ling of the dorsum and multiple necrotic ulcers present and area is about 7 x 7 cm at least. There i s fluctuance present consistent with an abscess. Neuropathy present too. Laboratory Data: Blood work shows WBC count of 7.2 and hemoglobin of 8.4. INR of 1.05, creatinine i s 2.94. Doppler of the right leg shows right lower extremity monophasic flow through the right lower extremity was suggestive of high-grade stenosis at the area of the right iliac. Left lower extremit y shows some significant findings, although not as severe as the right side. Assessment: It is a 46-year-old patient. He has a necrotic infected diabetic ulcers. He will be ta zoran to surgery for debridement of the right foot ulcers with benefits, alternatives, and risks includ e, but not limited to infection, bleeding, damage to adjacent structures, anesthesia complication, no nhealing wound, SD and even . He also understands this may not relieve any symptoms. He might need more than one surgical intervention. He understood, signed a consent. He understands he may re quire wound care that may include also coming to the [facility]. He understood. For the v ascular issues to minimize chance of the future of this coming back or even amputation, he has to be seen by a vascular surgeon or at least a vascular practitioner, who can address the issue of the lowe r extremities stenosis. RICHARD/TAMIKO Voice ID: [id number] Report ID: [id number]
[2022-01-06] MEDS: ENOXAPARIN 40 MG/0.4 ML SQ SCH (17:10)
[2022-01-06] MEDS: NA CHLORIDE 0.9% 1,000 ML IV SCH ×2 (17:11→20:29)
[2022-01-06] MEDS ORDERED: VANCOMYCIN 1.75 GM in NA CHLORIDE 0.9% 500 ML IVPB SCH (18:00)
[2022-01-06 18:34] LABS: Absolute Lymphocytes (CBC) 0.8 K/uL (0.7-4.9); Hematocrit 22.7 % (39.6-49.0); Lymphocytes % 12.9 % (15.3-44.8); MCV 97.2 fL (80-100); MPV 7.2 fL (7.6-11.3); RBC Red Blood Cell Count 2.34 M/uL (4.33-5.43)
[2022-01-06 18:46] LABS: Potassium 4.2 mmol/L (3.5-5.1)
[2022-01-06 19:04] LABS: Magnesium 1.4 mg/dL (1.8-2.4)
[2022-01-06] MEDS ORDERED: Magnesium Sulfate 2gm IVPB 2 G/50 ML BAG IV ONE (19:38)
[2022-01-06] MEDS: INSULIN GLARGINE 100 UNIT/ML SQ SCH (20:18)
--- NOTE | 2022-01-06 21:10 | P.CNS ---
Date of Consult: 01/06/22 Reason for Consult: MIGUEL/ CKD Requesting Physician: Miriam Boss Chief Complaint: Right foot osteomyelitis History of Present Illness: 46 yo HM DM, HTN, CKD presented to the hospital with several days of a moderate, progressive necrotic ventral right foot ulcer subsequent to trauma at home. He was taking care of the wound at home but it continued to worsen with associated pain and swelling. No current NSAIDs. No difficulty with urination. Allergies No Known Allergies Allergy (Verified 08/02/19 10:37) Home medications list reviewed: Yes Home Medications: Gabapentin [Neurontin] 800 mg PO QID 04/02/19 Multivitamin [Daily Multiple Vitamin] 1 each PO DAILY 04/02/19 Tizanidine HCl [Zanaflex] 6 mg PO Q6H 04/02/19 Fluoxetine HCl [Prozac] 1 cap PO DAILY 12/20/20 Morphine *Extended Release* [MS Contin*] 1 tab PO DAILY 12/20/20 Carvedilol [Coreg] 2 tab PO BID 01/05/22 Doxepin HCl 75 mg PO BEDTIME 01/05/22 Hydrocodone Bit/Acetaminophen [Hydrocodon-Acetaminophn 10-325] 1 tab PO QID 01/05/22 - Past Medical/Surgical History Diabetic: Yes -: Chronic back pain -: DM II Dx age 22 -: Gastric ulcer -: Anemia -: HTN -: CKD II with proteinuria/ Hx MIGUEL followed by Dr. Ferguson -: R knee surgery -: Gastric bypass -: Phimosis skin graft -: Circumcision -: Jackie -: rt knee surg Psychosocial/ Personal History: Patient lives at home with his , is disabled - Family History Mother Medical History: Heart disease, Diabetes Notes: of cirrrosis of liver Father Medical History: Diabetes Brother Medical History: Hypertension, Diabetes Notes: at 39yr old from "natural causes" - Social History Smoking Status: Unknown if ever smoked Alcohol use: No CD- Drugs: No Caffeine use: Yes Place of Residence: Home Review of Systems 10-point ROS is otherwise unremarkable General: Malaise Integumentary: Lesions Physical Examination Temp Pulse Resp BP Pulse Ox 97.6 F 64 16 90/52 L 100 01/06/22 16:00 01/06/22 17:16 01/06/22 20:16 01/06/22 17:16 01/06/22 20:16 General: Oriented x3, Cooperative HEENT: Atraumatic Neck: Supple Respiratory: Clear to auscultation bilaterally Cardiovascular: No edema, Regular rate/rhythm Gastrointestinal: Soft and benign, Non-distended Musculoskeletal: No clubbing, No contractures Integumentary: No cyanosis, Skin breakdown, Skin lesion, Tenderness/swelling Neurological: Normal speech Laboratory Data (last 24 hrs) 01/06/22 18:24: Sodium 140 D, Potassium 4.2 D, BUN 31 H, Creatinine 1.87 H, Glucose 179 H, Magnesium 1.4 L* 01/06/22 18:24: WBC 6.50, Hgb 7.3 L D, Hct 22.7 L, Plt Count 241 01/06/22 03:40: Sodium 134 L, Potassium 5.2 H, BUN 48 H, Creatinine 2.94 H, Glucose 127 H 01/06/22 03:40: PT 11.6, INR 1.05, APTT 22.7 L 01/06/22 03:40: WBC 7.20, Hgb 8.4 L, Hct 25.8 L, Plt Count 270 Imagings Data: EXAM DESCRIPTION: US - Lower Extremity Arterial Bilat - 01/05/2022 8:13 pm CLINICAL HISTORY: PAD; right leg COMPARISON: None FINDINGS: Right lower extremity: The common femoral, superficial femoral and popliteal arteries in the right lower extremity demonstrate monophasic flow. The posterior tibial and dorsalis pedis arteries in the right lower extremity demonstrate monophasic flow. Left lower extremity: The common femoral, superficial femoral and popliteal arteries in the right lower extremity demonstrate triphasic flow. The left posterior tibial artery demonstrates monophasic flow. The dorsalis pedis demonstrates biphasic flow. IMPRESSION: Right lower extremity: Monophasic flow throughout the right lower extremity would suggest a high-grade stenosis at the right iliac arteries. Left lower extremity: Triphasic flow to the level of the popliteal artery. Monophasic flow in the posterior tibial artery indicating at least a moderate stenosis. Biphasic flow in the dorsalis pedis artery. Conclusions/Impression: Stage II MIGUEL in the setting of hypovolemia CKD II with proteinuria -No NSAIDs -Continue IVF Hyponatremia -Corrected with IVF Hyperkalemia -Continue IVF -Renal diet Metabolic Acidosis -Change IVF to IV bicarb Hypomagnesemia -Agree with IV mag -MagOx qhs HTN with CKD complicated by hypotension -Reduce Coreg and add holding parameters -Check cortisol level DM II with CKD and Polyneuropathy -Continue Lantus -RISS -Continue Gabapentin Anemia in chronic illness -Monitor H&H -Retacrit X1 PAD RLE Ulcer -Surgery following -Wound care as ordered -Continue abx; renal dosing -Monitor vanc level Thank you kindly for the consultation.
[2022-01-06] MEDS ORDERED: EPOETIN ALFA-EPBX 10,000 UNIT/ML VIAL SQ ONE (21:15)
--- NOTE | 2022-01-06 22:23 | OP ---
Date of Procedure: 01/06/2022 Surgeon: Angelo Fowler MD Preoperative Diagnosis: Right foot cellulitis with necrotic infected diabetic ulcer. Postoperative Diagnosis: Right foot cellulitis with necrotic infected diabetic ulcer. Procedure: Excisional debridement of right foot necrotic infected diabetic ulcer 7 x 7 x 1.5 cm. Estimated Blood Loss: Less than 10 mL. Specimen: Necrotic tissue culture. Finding: Necrotic wounds, tendon was exposed after the necrotic tissue was removed. Anesthesia: MAC plus local. Complications: None. Indications: This is the case of 46-year-old patient with history of diabetes with necrotic wound ov er the right foot area, abscess and cellulitis present with black necrotic wounds on top. Patient ex plained the importance of debridement with benefits, alternatives, and risks including, but not limit ed to infection, bleeding, damage to adjacent structures, anesthesia complication, recurrence, LA, an d even . He also understands this may not relieve the symptoms, he might need more than one caden gical intervention. He understands the importance of controlling sugar in his body controlling also the way he ambulates with proper diabetic shoes. Also advised the importance of losing weight. He u nderstands that after this, he will require wound care and he was invited to [facility] after he gets discharged. He also was advised to see a vascular surgeon for evaluation of h is circulation and improvement. The patient brought to the operating room, placed in supine position . Anesthesia was done without complication. A time-out was called. Right foot was prepped and drap ed in sterile fashion. Local anesthesia was applied followed by sharp incision with a knife of this wound on the dorsum of the foot. They extend lateral medial extent deep to the point that the tendon s are exposed. The fat underneath was necrotic too and all that have to be debrided. The patient to lerated the procedure well. Hemostasis was obtained and the area was packed with wet-to-dry dressing . Patient tolerated the procedure well. Patient was sent to recovery in stable condition. HM/MODL Voice ID: [id number] Report ID: [id number]
[2022-01-06] MEDS ORDERED: D5W 1,000 ML IV ONE (23:23)
[2022-01-06] MEDS ORDERED: SODIUM BICARB 50 MEQ/50ML VIAL ONE (23:25)
[2022-01-06] MEDS: MAGNESIUM OXIDE 400 MG TAB PO SCH (23:37)
[2022-01-06] MEDS: D5W 1,000 ML with NA BICARB 8.4% 100 MEQ IV SCH ×2 (23:38)
[2022-01-06] MEDS ORDERED: EPOETIN ALFA-EPBX 10,000 UNIT/ML VIAL ONE (23:54)
[2022-01-07] MEDS: HYDROCODONE/APAP 10/325 TAB PO PRN ×3 (01:07→20:22)
[2022-01-07 04:46] LABS: Lymphocytes % 11.9 % (15.3-44.8); MCV 96.1 fL (80-100); MPV 7.4 fL (7.6-11.3); RBC Red Blood Cell Count 2.91 M/uL (4.33-5.43)
[2022-01-07 04:56] LABS: Bilirubin Total 0.4 mg/dL (0.2-1.0); Magnesium 1.9 mg/dL (1.8-2.4); Phosphorus 2.1 mg/dL (2.5-4.9); Potassium 4.9 mmol/L (3.5-5.1); Protein, Total 6.9 g/dL (6.4-8.2); Uric Acid 5.9 mg/dL (3.5-7.2)
[2022-01-07] MEDS: VANCOMYCIN 1.75 GM in NA CHLORIDE 0.9% 500 ML IVPB SCH (06:22)
[2022-01-07] MEDS: INSULIN -REGULAR HUMAN 50 UNIT/0.5 ML ML SQ SCH ×4 (07:30→20:23)
[2022-01-07] MEDS: COLLAGENASE 30 GM OINTMENT TOP SCH (08:57)
[2022-01-07] MEDS: MORPHINE 4 MG/ML SYR IV PRN ×2 (08:58→13:49)
[2022-01-07] MEDS ORDERED: DRISDOL (VITAMIN D=ERGOCALCIFEROL) 50000 UNIT CAP PO SCH (09:00)
[2022-01-07] MEDS: FLUOXETINE 20 MG CAP PO SCH (09:04)
[2022-01-07] MEDS: carvediloL 25 MG TAB PO SCH ×2 (09:05→17:04)
[2022-01-07] MEDS: GABAPENTIN 300 MG CAP PO SCH ×3 (09:05→20:22)
--- NOTE | 2022-01-07 10:13 | P.PN ---
Subjective Date of Service: 01/06/22 Subjective: No new changes, No C/O voiced, Improving Review of Systems 10-point ROS is otherwise unremarkable Physical Examination - Vital Signs Temperature: 99 F Blood Pressure: 100/60 Pulse: 99 Respirations: 18 Pulse Ox (%): 95 - Physical Exam General: Alert, In no apparent distress, Oriented x3 Respiratory: Clear to auscultation bilaterally, Normal air movement Cardiovascular: Regular rate/rhythm, Normal S1 S2 Gastrointestinal: Normal bowel sounds, No tenderness Musculoskeletal: Erythema, Tenderness, Warmth Integumentary: Tenderness/swelling, Erythema Neurological: Normal speech, Normal tone, Normal affect, Abnormal sensation Lymphatics: No axilla or inguinal lymphadenopathy - Studies Laboratory Data (last 24 hrs) 01/07/22 04:15: WBC 8.50, Hgb 9.1 L D, Hct 28.0 L, Plt Count 321 D 01/07/22 04:15: Sodium 138, Potassium 4.9 D, BUN 30 H, Creatinine 1.76 H, Glucose 139 H, Uric Acid 5.9, Phosphorus 2.1 L, Magnesium 1.9, Total Bilirubin 0.4, AST 7 L, ALT 17, Alkaline Phosphatase 127 H 01/06/22 18:24: Sodium 140 D, Potassium 4.2 D, BUN 31 H, Creatinine 1.87 H, Glucose 179 H, Magnesium 1.4 L* 01/06/22 18:24: WBC 6.50, Hgb 7.3 L D, Hct 22.7 L, Plt Count 241 Medications List Reviewed: Yes Assessment & Plan - Problems (Diagnosis) (1) Diabetic neuropathy Current Visit: Yes Status: Acute (2) Osteomyelitis Current Visit: Yes Status: Acute (3) DM type 2 (diabetes mellitus, type 2) Current Visit: No Status: Chronic (4) Peripheral arterial disease Current Visit: Yes Status: Acute (5) Acute worsening of stage 3 chronic kidney disease Current Visit: No Status: Acute (6) Anemia Current Visit: No Status: Chronic Qualifiers: Anemia type: iron deficiency Iron deficiency anemia type: chronic blood loss Qualified Code(s): D50.0 - Iron deficiency anemia secondary to blood loss (chronic) - Plan Plan: Continue with plan of care as mentioned below: 1. Continue with IV antibiotics 2. General surgery consultation appreciated 3. Arterial Doppler with PAD 4. MRI of the foot pending 5. Nephrology consultation appreciated 6. Gentle hydration 7. Strict blood sugar control 8. History of blood pressure control 9. GI DVT prophylaxis Discharge Plan: Home Plan to discharge in: Greater than 2 days - Advance Directives Does patient have a Living Will: No Does patient have a Durable POA for Healthcare: Yes - Code Status/Comfort Care Code Status: Full Code Critical Care: No Time Spent Managing PTS Care (In Minutes): 35
--- NOTE | 2022-01-07 10:14 | P.PN ---
Date of Service: 01/07/22 Subjective Patient is clinically doing well. Awaiting for arrangements IV antibiotic therapy Review of Systems 10-point ROS is otherwise unremarkable Physical Examination - Vital Signs reviewed - Physical Exam General: Alert, In no apparent distress, Oriented x3 Respiratory: Clear to auscultation bilaterally, Normal air movement Cardiovascular: Regular rate/rhythm, Normal S1 S2 Gastrointestinal: Normal bowel sounds, No tenderness Musculoskeletal: Erythema, Tenderness, Warmth Integumentary: Tenderness/swelling, Erythema Neurological: No focal deficits Assessment & Plan - Problems (Diagnosis) (1) Diabetic neuropathy Current Visit: Yes Status: Acute (2) Osteomyelitis Current Visit: Yes Status: Acute (3) DM type 2 (diabetes mellitus, type 2) Current Visit: No Status: Chronic (4) Peripheral arterial disease Current Visit: Yes Status: Acute (5) Acute worsening of stage 3 chronic kidney disease Current Visit: No Status: Acute (6) Anemia Current Visit: No Status: Chronic Qualifiers: Anemia type: iron deficiency Iron deficiency anemia type: chronic blood loss Qualified Code(s): D50.0 - Iron deficiency anemia secondary to blood loss (chronic) - Plan Continue with plan of care as mentioned below: 1. Continue with IV antibiotics 2. General surgery consultation appreciated 3. Arterial Doppler showed PAD; outpt arteriogram 4. MRI of the foot pending 5. Nephrology consultation appreciated 6. Heplock IV 7. Strict blood sugar control 8. Continue with strict blood sugar & blood pressure control 9. GI/DVT prophylaxis
[2022-01-07] MEDS: D5W 1,000 ML with NA BICARB 8.4% 100 MEQ IV SCH ×2 (12:06)
--- NOTE | 2022-01-07 13:30 | P.PN ---
Nephrology note (S) Pt denies any sig foot pain, vitals stable, remains on IVF and Abx Vitals reviewed in the EMR General: Oriented x3, Cooperative HEENT: Atraumatic Neck: Supple Respiratory: Clear to auscultation bilaterally Cardiovascular: No edema, Regular rate/rhythm Gastrointestinal: Soft and benign, Non-distended Musculoskeletal: No clubbing, No contractures Integumentary: Rt foot ulcer/wound wrapped Neurological: Awake, alert, oriented, Normal speech Laboratory Data (last 24 hrs) Reviewed Conclusions/Impression: Stage II MIGUEL in the setting of hypovolemia, other CKD NOS with proteinuria -Cont hydration, avoid iodine contrast imaging unless strongly indicated and/or renal function improving, monitor Vanc levels Metabolic Acidosis -Cont bicarb added IVF to address deficit Hypomagnesemia -Cont supplementation Hypotension unspecified Cont IVF hydration, consider Coreg dose reduction and apply holding parameters PAD RLE DFU -Surgery following -Wound care as ordered -Continue abx
[2022-01-07] MEDS: NACHLORIDE 0.45% 1,000 ML with NA BICARB 8.4% 75 MEQ IV SCH ×2 (14:00)
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
--- NOTE | 2022-01-07 16:03 | PN ---
Date of Progress Note: 01/07/2022 Diagnosis: Right foot cellulitis with necrotic infected diabetic ulcer. Procedure: Excisional debridement of right foot necrotic infected diabetic ulcer. Subjective: Patient doing well. No complaint. No nausea, no vomiting. Objective: Chest: Clear. Abdomen: Soft and depressible. Extremity: Intact surgical site. Plan: From the surgical standpoint, continue dressing changes. May use enzymatic debrider and when he gets discharged from the institution, we would like to see him at the [facility] so we c an help him deal with this diabetic ulcers. RICHARD/TAMIKO Voice ID: [id number] Report ID: [id number]
[2022-01-07] MEDS: ENOXAPARIN 40 MG/0.4 ML SQ SCH (17:04)
[2022-01-07] MEDS: Levofloxacin 750mg IV 750 MG/150 ML BAG IV SCH (17:05)
[2022-01-07] MEDS ORDERED: Levofloxacin500mg IV 500 MG/100 ML BAG IV SCH (18:00)
[2022-01-07] MEDS: MAGNESIUM OXIDE 400 MG TAB PO SCH (20:22)
[2022-01-07] MEDS: INSULIN GLARGINE 100 UNIT/ML SQ SCH (20:23)
[2022-01-08] MEDS: HYDROCODONE/APAP 10/325 TAB PO PRN ×4 (03:20→22:53)
[2022-01-08] MEDS: NACHLORIDE 0.45% 1,000 ML with NA BICARB 8.4% 75 MEQ IV SCH ×2 (03:24)
[2022-01-08 05:58] LABS: Specific Gravity 1.014 (1.005-1.030); Urine Bilirubin NEGATIVE (Negative); Urine Blood Negative (Negative); Urine Clarity Clear (Clear); Urine Color Light-Yellow (Yellow); Urine Glucose 4+ (Negative); Urine Mucus Slight /HPF (None Seen); Urine Protein 1+ (Negative); Urine RBC <5 /HPF (None Seen); Urine Urobilinogen Normal (Normal); Urine pH 5.5 (5.0-7.0)
[2022-01-08 06:03] LABS: UR PROTEIN 61.6 mg/dL (<11.9); Urine Protein/Creatinine Ratio 0.6 ratio (<0.15)
[2022-01-08] MEDS: MORPHINE 4 MG/ML SYR IV PRN ×3 (06:31→19:40)
[2022-01-08] MEDS: INSULIN -REGULAR HUMAN 50 UNIT/0.5 ML ML SQ SCH ×4 (07:30→21:00)
[2022-01-08] MEDS: carvediloL 25 MG TAB PO SCH ×2 (09:30→17:06)
[2022-01-08] MEDS: FLUOXETINE 20 MG CAP PO SCH (09:30)
[2022-01-08] MEDS: GABAPENTIN 300 MG CAP PO SCH ×3 (09:30→21:19)
[2022-01-08] MEDS: COLLAGENASE 30 GM OINTMENT TOP SCH (09:32)
--- NOTE | 2022-01-08 13:14 | RAD REPORT ---
EXAM DESCRIPTION: RAD - Foot Right 2 View - 01/08/2022 12:42 pm CLINICAL HISTORY: F/U MRI Pain and swelling COMPARISON: Foot Right Wo Cont dated 01/08/2022 FINDINGS: Evidence of comminuted fracture of the second metatarsal shaft and base is present. Fractu re is also present involving the third metatarsal neck with mild displacement. Prominent soft tissue ulceration is seen dorsal forefoot. Large plantar calcaneal spur.
--- NOTE | 2022-01-08 13:19 | RAD REPORT ---
EXAM DESCRIPTION: MRIFoot Right Wo Cont01/08/2022 11:47 am CLINICAL HISTORY: Right foot pain COMPARISON: X-ray January 08, 2022 TECHNIQUE: Axial, sagittal and coronal magnetic resonance imaging of the right foot was obtained. FINDINGS: Mildly displaced fracture involves the proximal and mid second metatarsal with edema withi n the bone. Moderately to markedly displaced fracture involves the third metatarsal neck with edema in the bone. Increased signal throughout the fourth metatarsal. A discrete fracture line not seen. Nondisplaced fracture fourth metatarsal neck with edema in the bone. IMPRESSION: Mildly displaced fracture second metatarsal Moderately to markedly displaced fracture third metatarsal neck Nondisplaced fracture fourth metatarsal neck All these fractures probably are subacute
[2022-01-08] MEDS: VANCOMYCIN 1.75 GM in NA CHLORIDE 0.9% 500 ML IVPB SCH (17:06)
[2022-01-08] MEDS: ENOXAPARIN 40 MG/0.4 ML SQ SCH (17:07)
[2022-01-08] MEDS ORDERED: VANCOMYCIN 2 GM in NA CHLORIDE 0.9% 500 ML IVPB SCH (18:00)
[2022-01-08] MEDS: MAGNESIUM OXIDE 400 MG TAB PO SCH (21:19)
[2022-01-08] MEDS: INSULIN GLARGINE 100 UNIT/ML SQ SCH (21:25)
--- NOTE | 2022-01-08 21:29 | P.PN ---
Date of Service: 01/08/22 Vital Signs Temp Pulse Resp BP Pulse Ox 97.1 F 57 16 124/60 97 01/08/22 16:00 01/08/22 16:00 01/08/22 18:06 01/08/22 16:00 01/08/22 18:06 Medications Acetaminophen (Acetaminophen 500 Mg Tab) 500 mg PO Q6H PRN PRN Reason: Pain scale 2-4 (Mild) OR T>100 Hydrocodone Bitart/Acetaminophen (Hydrocodone/Apap 10/325 Tab) 1 tab PO QID PRN PRN Reason: Pain scale 5-7 (Moderate) Last Admin: 01/08/22 17:06 Dose: 1 tab Carvedilol (Carvedilol 25 Mg Tab) 12.5 mg PO BIDWM [facility] Last Admin: 01/08/22 17:06 Dose: 12.5 mg Collagenase (Collagenase 30 Gm Ointment) 1 appl TOP DAILY [facility] Last Admin: 01/08/22 09:32 Dose: 1 appl Enoxaparin Sodium (Enoxaparin 40 Mg/0.4 Ml) 40 mg SQ DAILY 5 PM [facility] Last Admin: 01/08/22 17:07 Dose: 40 mg Ergocalciferol (Drisdol (Vitamin D=Ergocalciferol) 38472 Unit Cap) 50,000 unit PO Q7D@0900 [facility] Last Admin: 01/07/22 09:06 Dose: 50,000 unit Fluoxetine HCl (Fluoxetine 20 Mg Cap) 40 mg PO DAILY [facility] Last Admin: 01/08/22 09:30 Dose: 40 mg Gabapentin (Gabapentin 300 Mg Cap) 600 mg PO TID [facility] Last Admin: 01/08/22 13:58 Dose: 600 mg Glucagon (Glucagon 1 Mg/Vial) 1 mg IM 1X PRN; Protocol PRN Reason: HYPOGLYCEMIA Levofloxacin/Dextrose (Levaquin 750 Mg/150 Ml Ivpb (Premix)) 750 mg in 150 mls @ 100 mls/hr IV Q48H [facility] Last Admin: 01/07/22 17:05 Dose: 150 mls Sodium Bicarbonate 75 meq/ (Sodium Chloride) 1,075 mls @ 75 mls/hr IV .[id number] [facility] Last Admin: 01/08/22 03:24 Dose: 1,075 mls Vancomycin HCl 2 gm/ Sodium (Chloride) 500 mls @ 250 mls/hr IVPB Q36H [facility] Last Admin: 01/08/22 18:00 Dose: 500 mls Insulin Glargine (Insulin Glargine 100 Unit/Ml) 20 unit SQ BEDTIME [facility] Last Admin: 01/07/22 20:23 Dose: 20 unit Insulin Human Regular (Insulin -Regular Human 50 Unit/0.5 Ml Ml) 0 unit SQ ACHS [facility]; Protocol Last Admin: 01/08/22 16:05 Dose: Not Given Magnesium Oxide (Magnesium Oxide 400 Mg Tab) 400 mg PO BEDTIME [facility] Last Admin: 01/07/22 20:22 Dose: 400 mg Morphine Sulfate (Morphine 4 Mg/Ml Syr) 4 mg IV Q4H PRN PRN Reason: Pain scale 8-10 (Severe) Last Admin: 01/08/22 19:40 Dose: 4 mg Ondansetron HCl (Ondansetron 4 Mg/2 Ml Vial) 4 mg IV Q4H PRN PRN Reason: NAUSEA / VOMITING Sodium Chloride (Flush Normal Saline 10 Ml) 10 ml IV BID [facility] Last Admin: 01/08/22 09:31 Dose: 10 ml Lab Results (last 24 hrs) 01/08/22 19:27: POC Glucose 126 H 01/08/22 16:14: Vancomycin Trough 8.5 01/08/22 15:44: POC Glucose 166 H 01/08/22 12:35: POC Glucose 125 H 01/08/22 07:23: POC Glucose 88 01/08/22 05:40: Urine Color Light-yellow, Urine Clarity Clear, Urine pH 5.5, Ur Specific Mulga 1.014, Glucose (UA)(Auto) 4+ H, Urine Ketones Negative, Urine Blood Negative, Urine Nitrite Negative, Urine Bilirubin Negative, Urine Urobilinogen Normal, Ur Leukocyte Esterase Negative, Urine RBC <5, Urine WBC <5, Ur Squamous Epith Cells <5, U Non-Squamous Epi Cells <5, Urine Mucus Slight, Urine Total Protein 1+ H 01/08/22 05:40: U Random Total Protein 61.6 H, Urine Creatinine 103.0, Protein/Creatinin Ratio 0.60 H 01/08/22 05:37: Urine Color Cancelled, Urine Clarity Cancelled, Urine pH Cance lled, Ur Specific Mulga Cancelled, Glucose (UA)(Auto) Cancelled, Urine Ketones Cancelled, Urine Blood Cancelled, Urine Nitrite Cancelled, Urine Bilirubin Cancelled, Urine Urobilinogen Cancelled, Ur Leukocyte Esterase Cancelled, Urine RBC Cancelled, Urine Red Cell Clumps Cancelled, Urine WBC Cancelled, Urine WBC Clumps Cancelled, Ur Squamous Epith Cells Cancelled, U Non-Squamous Epi Cells Cancelled, Ur Transition Epith Cell Cancelled, Ur Renal Epithelial Cell Cancelled, Calcium Carbonate Cryst Cancelled, Calcium Oxalate Crystal Cancelled, Leucine Crystals Cancelled, Cystine Crystals Cancelled, Uric Acid Crystals Cancelled, Triple Phos Crystals Cancelled, Tyrosine Crystals Cancelled, Unidentified Crystals Cancelled, Amorphous Crystals Cancelled, Urine Bacteria Cancelled, Hyaline Casts Cancelled, Granular Casts Cancelled, Waxy Casts Cancelled, RBC Casts Cancelled, WBC Casts Cancelled, Urine Mucus Cancelled, Urine Trichomonas Cancelled, Ur Yeast w Hyphae Cancelled, Urine Yeast (Budding) Cancelled, Urine Sperm Cancelled, Ur Oval Fat Bodies Cancelled, Urine Total Protein Cancelled, Urine Ascorbic Acid Cancelled, Urine Fat Cancelled Microbiology Results 01/06/22 11:15 Body Fluid - Other Gram Stain - Final 01/06/22 11:15 Wound - Other Gram Stain - Final Assessment/ Plan: Nephrology No dyspnea No chest pain Feeling better No acute events overnight Vitals, medications, blood work and imaging reviewed in the chart General: Oriented x3, Cooperative HEENT: Atraumatic Neck: Supple Respiratory: Clear to auscultation bilaterally Cardiovascular: No edema, Regular rate/rhythm Gastrointestinal: Soft and benign, Non-distended Musculoskeletal: No clubbing, No contractures Integumentary: No cyanosis, Skin breakdown, Skin lesion, Tenderness/swelling Neurological: Normal speech Laboratory Data (last 24 hrs) 01/06/22 18:24: Sodium 140 D, Potassium 4.2 D, BUN 31 H, Creatinine 1.87 H, Glucose 179 H, Magnesium 1.4 L* 01/06/22 18:24: WBC 6.50, Hgb 7.3 L D, Hct 22.7 L, Plt Count 241 01/06/22 03:40: Sodium 134 L, Potassium 5.2 H, BUN 48 H, Creatinine 2.94 H, Glucose 127 H 01/06/22 03:40: PT 11.6, INR 1.05, APTT 22.7 L 01/06/22 03:40: WBC 7.20, Hgb 8.4 L, Hct 25.8 L, Plt Count 270 Imagings Data: EXAM DESCRIPTION: US - Lower Extremity Arterial Bilat - 01/05/2022 8:13 pm CLINICAL HISTORY: PAD; right leg COMPARISON: None FINDINGS: Right lower extremity: The common femoral, superficial femoral and popliteal arteries in the right lower extremity demonstrate monophasic flow. The posterior tibial and dorsalis pedis arteries in the right lower extremity demonstrate monophasic flow. Left lower extremity: The common femoral, superficial femoral and popliteal arteries in the right lower extremity demonstrate triphasic flow. The left posterior tibial artery demonstrates monophasic flow. The dorsalis pedis demonstrates biphasic flow. IMPRESSION: Right lower extremity: Monophasic flow throughout the right lower extremity would suggest a high-grade stenosis at the right iliac arteries. Left lower extremity: Triphasic flow to the level of the popliteal artery. Monophasic flow in the posterior tibial artery indicating at least a moderate stenosis. Biphasic flow in the dorsalis pedis artery. Conclusions/Impression: Stage II MIGUEL in the setting of hypovolemia CKD II with proteinuria -No NSAIDs -Continue IVF Hyponatremia, resolved Hyperkalemia, resolved Metabolic Acidosis -Change IVF with bicarb Hypomagnesemia -MagOx qhs HTN with CKD complicated by hypotension -Continue Coreg with holding parameters DM II with CKD and Polyneuropathy -Continue Lantus -RISS -Continue Gabapentin Anemia in chronic illness -Monitor H&H -Retacrit prn PAD RLE Ulcer -Surgery following -Wound care as ordered -Continue abx; renal dosing -Monitor vanc level
[2022-01-09] MEDS: MORPHINE 4 MG/ML SYR IV PRN ×6 (00:36→21:27)
[2022-01-09] MEDS: NACHLORIDE 0.45% 1,000 ML with NA BICARB 8.4% 75 MEQ IV SCH ×4 (00:40→10:03)
[2022-01-09 04:26] LABS: Absolute Lymphocytes (CBC) 1.3 K/uL (0.7-4.9); Hematocrit 22.7 % (39.6-49.0); Lymphocytes % 20.1 % (15.3-44.8); MCV 94.7 fL (80-100); MPV 7.5 fL (7.6-11.3)
[2022-01-09 04:41] LABS: Albumin 2.5 g/dL (3.4-5.0); Bilirubin Total 0.3 mg/dL (0.2-1.0); C-Reactive Protein 4.37 mg/L (<3.00); Phosphorus 2.6 mg/dL (2.5-4.9); Potassium 3.8 mmol/L (3.5-5.1); Protein, Total 5.5 g/dL (6.4-8.2)
[2022-01-09] MEDS: HYDROCODONE/APAP 10/325 TAB PO PRN ×3 (06:34→20:25)
[2022-01-09] MEDS: INSULIN -REGULAR HUMAN 50 UNIT/0.5 ML ML SQ SCH ×4 (07:30→20:27)
[2022-01-09] MEDS: FLUOXETINE 20 MG CAP PO SCH (08:48)
[2022-01-09] MEDS: carvediloL 25 MG TAB PO SCH ×2 (08:48→18:20)
[2022-01-09] MEDS: GABAPENTIN 300 MG CAP PO SCH ×3 (08:49→20:25)
[2022-01-09] MEDS: COLLAGENASE 30 GM OINTMENT TOP SCH (08:54)
--- NOTE | 2022-01-09 15:38 | P.PN ---
Date of Service: 01/08/22 Subjective Awaiting for arrangements of IV antibiotic therapy. Review of Systems 10-point ROS is otherwise unremarkable Physical Examination - Vital Signs reviewed - Physical Exam General: Alert, In no apparent distress, Oriented x3 Respiratory: Clear to auscultation bilaterally, Normal air movement Cardiovascular: Regular rate/rhythm, Normal S1 S2 Gastrointestinal: Normal bowel sounds, No tenderness Musculoskeletal: Erythema, Tenderness, Warmth Integumentary: Tenderness/swelling, Erythema Neurological: No focal deficits Assessment & Plan - Problems (Diagnosis) (1) Diabetic neuropathy Current Visit: Yes Status: Acute (2) Osteomyelitis Current Visit: Yes Status: Acute (3) DM type 2 (diabetes mellitus, type 2) Current Visit: No Status: Chronic (4) Peripheral arterial disease Current Visit: Yes Status: Acute (5) Acute worsening of stage 3 chronic kidney disease Current Visit: No Status: Acute (6) Anemia Current Visit: No Status: Chronic Qualifiers: Anemia type: iron deficiency Iron deficiency anemia type: chronic blood loss Qualified Code(s): D50.0 - Iron deficiency anemia secondary to blood loss (chronic) - Plan Continue with plan of care as mentioned below: 1. Continue with IV antibiotics; trying to arrange for payment of outpt antibiotics 2. General surgery consultation appreciated 3. Arterial Doppler showed PAD; outpt arteriogram 4. MRI of the foot pending 5. Nephrology consultation appreciated 6. Heplock IV 7. Wound care 8. Continue with strict blood sugar & blood pressure control 9. GI/DVT prophylaxis
--- NOTE | 2022-01-09 15:42 | P.PN ---
Date of Service: 01/09/22 Subjective Insurance not covering antibiotics; unable to get him into home health Review of Systems 10-point ROS is otherwise unremarkable Physical Examination - Vital Signs reviewed - Physical Exam General: Alert, In no apparent distress, Oriented x3 Respiratory: Clear to auscultation bilaterally, Normal air movement Cardiovascular: Regular rate/rhythm, Normal S1 S2 Gastrointestinal: Normal bowel sounds, No tenderness Musculoskeletal: Erythema, Tenderness, Warmth Integumentary: Tenderness/swelling, Erythema Neurological: No focal deficits Assessment & Plan - Problems (Diagnosis) (1) Diabetic neuropathy Current Visit: Yes Status: Acute (2) Osteomyelitis Current Visit: Yes Status: Acute (3) DM type 2 (diabetes mellitus, type 2) Current Visit: No Status: Chronic (4) Peripheral arterial disease Current Visit: Yes Status: Acute (5) Acute worsening of stage 3 chronic kidney disease Current Visit: No Status: Acute (6) Anemia Current Visit: No Status: Chronic Qualifiers: Anemia type: iron deficiency Iron deficiency anemia type: chronic blood loss Qualified Code(s): D50.0 - Iron deficiency anemia secondary to blood loss (chronic) - Plan Continue with plan of care as mentioned below: 1. Continue with IV antibiotics; trying to arrange for payment of outpt antibiotics; insurance not covering antibiotics 2. General surgery consultation appreciated 3. Arterial Doppler showed PAD; outpt arteriogram 4. MRI of the foot with fractures; ID reccomending antibiotics intravenously 5. Nephrology consultation appreciated 6. Heplock IV 7. Wound care 8. Continue with strict blood sugar & blood pressure control 9. GI/DVT prophylaxis
--- NOTE | 2022-01-09 17:24 | PN ---
Subjective: The patient is lying in bed, awaiting for a PICC line placement to continue his antibiot ic. The patient denies any chest pain, abdominal pain, constipation, or diarrhea. Objective: Vital Signs: Temperature 97, pulse 59, respirations 17, blood pressure 148/75. Lungs: Basal crackles. Heart: S1, S2. Regular. Abdomen: Soft, nontender. Bowel sounds present. Extremities: No edema. Right foot wound noted. Muscle wasting noted. Laboratory Data: Shows WBC 6.3, hemoglobin 7.5, platelets 263. Chemistry shows BUN of 22, creatinin e 1.1, albumin level was 2.5. Micro data; cultures are negative to date, 1+ Staph species showing on wound cultures. Assessment And Plan: The patient is currently being treated with vancomycin and Levaquin. We will r ecommend to continue treatment for 6 weeks and follow up with surgical team for wound. Monitor kidne y function and liver function and CBC on biweekly basis while the patient is on 6 week antibiotic cou linus. MATHEUS/MODL Voice ID: [id number] Report ID: [id number]
--- NOTE | 2022-01-09 18:17 | RAD REPORT ---
EXAM DESCRIPTION: RAD - Chest Single View - 01/09/2022 6:09 pm CLINICAL HISTORY: PICC line placement COMPARISON: Chest Single View dated 11/10/2021; Chest Single View dated 12/20/2020; Chest Single View dated 04/01/2019; Chest Pa And Lat (2 Views) dated 06/09/2017 FINDINGS: Portable chest was obtained following placement of a right upper extremity PICC line. The catheter tip projects over the SVC.
[2022-01-09 18:20] VITALS: BMI 32.5
[2022-01-09] MEDS: Levofloxacin 750mg IV 750 MG/150 ML BAG IV SCH (18:21)
[2022-01-09] MEDS: VANCOMYCIN 1.75 GM in NA CHLORIDE 0.9% 500 ML IVPB SCH (18:21)
[2022-01-09] MEDS: ENOXAPARIN 40 MG/0.4 ML SQ SCH (18:21)
[2022-01-09] MEDS: INSULIN GLARGINE 100 UNIT/ML SQ SCH (20:25)
[2022-01-09] MEDS: MAGNESIUM OXIDE 400 MG TAB PO SCH (20:25)
[2022-01-09 23:05] VITALS: O2SAT 99
[2022-01-10] MEDS: MORPHINE 4 MG/ML SYR IV PRN ×2 (01:35→05:15)
[2022-01-10] MEDS: HYDROCODONE/APAP 10/325 TAB PO PRN (03:44)
[2022-01-10] MEDS: INSULIN -REGULAR HUMAN 50 UNIT/0.5 ML ML SQ SCH ×3 (07:30→16:25)
[2022-01-10] MEDS: COLLAGENASE 30 GM OINTMENT TOP SCH (09:00)
[2022-01-10] MEDS: carvediloL 25 MG TAB PO SCH ×2 (09:12→16:25)
[2022-01-10] MEDS: FLUOXETINE 20 MG CAP PO SCH (09:13)
[2022-01-10] MEDS: GABAPENTIN 300 MG CAP PO SCH ×2 (09:13→13:43)
[2022-01-10] MEDS ORDERED: MORPHINE *EXTENDED RELEASE* 15 MG TAB PO SCH (11:00)
[2022-01-10] MEDS: TIZANIDINE 4 MG TABLET PO SCH ×2 (13:43→16:25)
[2022-01-10] MEDS: ENOXAPARIN 40 MG/0.4 ML SQ SCH (16:25)
[2022-01-10] MEDS: VANCOMYCIN 1.75 GM in NA CHLORIDE 0.9% 500 ML IVPB SCH (16:25)
[2022-01-10 16:26] VITALS: BP 118/60
[2022-01-10] MEDS ORDERED: Levofloxacin500mg IV 500 MG/100 ML BAG IV SCH (17:00)
[2022-01-10 17:56] VITALS: TEMP 97.8
--- NOTE | 2022-01-10 18:24 | PN ---
Date of Progress Note: 01/10/2022 Subjective: Patient is seen and examined at bedside. Denies any complaints. No issues noted. Objective: Vital Signs: Have been reviewed and are stable. General: He appears in no acute distress. Lungs: Clear. Abdomen: Soft. Extremities: Right foot was noted to be in dressing. Laboratory Data: No new laboratory data has been obtained since this morning. Current Medications: Have been reviewed in detail. He remains on vancomycin every 24 hours along wi th Levaquin 750 mg every 48 hours to treat his foot infection. Impression: 1.Chronic renal insufficiency, currently with stable renal function. 2.Osteomyelitis, remains on antibiotics. 3.Diabetic neuropathy. 4.Peripheral arterial disease. Plan: The patient's renal function is stable. Continue to monitor. Antibiotics have been adjusted for renal function. Outpatient antibiotics are being arranged. Continue to monitor closely. TERESO/TAMIKO Voice ID: [id number] Report ID: [id number]
--- NOTE | 2022-01-10 19:00 | CON ---
Date of Consultation: 01/07/2022 Reason For Consultation: Peripheral arterial disease. History Of Present Illness: Mr. Ayers is an unfortunate 46-year-old male who has a history of chronic renal disease, diabetes, hypertension, and peripheral arterial disease, who came in with COVID and w as also found to have a right foot ulcer and he is status post debridement. Normally sees Dr. Riojas at [facility]. He had an arterial Doppler showing severe right iliac stenosis and I was consulte d. The patient denied any cardiac symptoms. Past Medical History: As stated above. Allergies: NONE. Medications: Include Coreg, Neurontin, and doxepin. Review of Systems: Negative. Social History: Negative. Family History: Noncontributory. Physical Examination: Vital Signs: Stable, afebrile. HEENT: Negative. Neck: Supple with no bruit. Chest: Clear. Cardiac: Normal. Abdomen: Benign. Extremities: No clubbing, cyanosis, or edema. He is status post debridement of his right foot ulcer s. Diagnostic Data: Otherwise within normal limits. Impression And Plan: Patient with history of chronic renal disease, diabetes, hypertension, peripher al arterial disease, and documented right iliac stenosis by Doppler. I prefer that Mr. Ayers wait to have an abdominal angiogram with runoff because of his COVID and because of the cellulitis of his rig ht foot. I will make arrangements for him to have an abdominal angiogram with runoff via left groin approach, hopefully in the next week or 2. I will make sure my office calls him after he goes home. YOSEF/TAMIKO Voice ID: [id number] Report ID: [id number]
--- NOTE | 2022-01-19 23:06 | P.DS ---
Discharge Date: 01/10/22 Disposition: ROUTINE DISCHARGE Discharge Condition: GOOD Reason for Admission: Right foot osteomyelitis Consultations: Infectious disease Surgery Cardiology - Problems (1) Diabetic neuropathy Status: Acute (2) Osteomyelitis Status: Acute (3) DM type 2 (diabetes mellitus, type 2) Status: Chronic (4) Peripheral arterial disease Status: Acute (5) Acute worsening of stage 3 chronic kidney disease Status: Acute (6) Anemia Status: Chronic Qualifiers: Anemia type: iron deficiency Iron deficiency anemia type: chronic blood loss Qualified Code(s): D50.0 - Iron deficiency anemia secondary to blood loss (chronic) Brief History of Present Illness: Patient is a 46yo who was admitted to the hospital with a right foot infection. Has an eschar on the right foot. Patient's been running fevers and patient's been having a lot of pain in the right foot. Patient does appear to have neuropathy and is pulsation is diminished. She will get an arterial Doppler and an MRI of the foot. We will get surgery consultation. Patient will be admitted to the hospital for further treatment. Patient will probably need prolonged IV antibiotic therapy. Hospital Course: Patient had arterial Doppler which revealed peripheral arterial disease. Possible occlusion in the iliac artery. Patient will be seen by Cardiology as an outpatient. Patient will need arteriogram for further evaluation. Patient also had debridement of a diabetic foot ulcer. This was done by General surgery. Patient had an excisional debridement of right foot necrotic infected diabetic ulcer 7cm x 7cm x 1.5 cm. patient will be followed up as an outpatient [facility] and [facility] surgery. Patient will see Cardiology as an outpatient as well. Patient had a PICC line placed and will be discharged with IV antibiotic therapy for 6 weeks. Vital Signs/Physical Exam: Temp Pulse Resp BP Pulse Ox 97.8 F 55 18 118/60 98 01/10/22 16:00 01/10/22 16:25 01/10/22 16:00 01/10/22 16:25 01/10/22 16:00 General: Alert, In no apparent distress, Oriented x3 Laboratory Data at Discharge: WBC 6.30 K/uL (4.3-10.9) 01/09/22 03:50 Hgb 7.5 g/dL (13.6-17.9) L 01/09/22 03:50 Hct 22.7 % (39.6-49.0) L 01/09/22 03:50 Plt Count 264 K/uL (152-406) 01/09/22 03:50 PT 11.6 SECONDS (9.5-12.5) 01/06/22 03:40 INR 1.05 01/06/22 03:40 APTT 22.7 SECONDS (24.3-36.9) L 01/06/22 03:40 Sodium 140 mmol/L (136-145) 01/09/22 03:50 Potassium 3.8 mmol/L (3.5-5.1) 01/09/22 03:50 BUN 22 mg/dL (7-18) H 01/09/22 03:50 Creatinine 1.11 mg/dL (0.55-1.3) 01/09/22 03:50 Glucose 92 mg/dL (74-106) 01/09/22 03:50 Uric Acid 4.7 mg/dL (3.5-7.2) 01/08/22 22:18 Phosphorus 2.6 mg/dL (2.5-4.9) 01/09/22 03:50 Magnesium 1.9 mg/dL (1.8-2.4) 01/07/22 04:15 Total Bilirubin 0.3 mg/dL (0.2-1.0) 01/09/22 03:50 AST 29 U/L (15-37) 01/09/22 03:50 ALT 53 U/L (12-78) 01/09/22 03:50 Alkaline Phosphatase 94 U/L (45-117) 01/09/22 03:50 Home Medications: Gabapentin [Neurontin] 800 mg PO QID 04/02/19 Multivitamin [Daily Multiple Vitamin] 1 each PO DAILY 04/02/19 Tizanidine HCl [Zanaflex] 6 mg PO Q6H 04/02/19 Fluoxetine HCl [Prozac] 1 cap PO DAILY 12/20/20 Morphine *Extended Release* [MS Contin*] 1 tab PO DAILY 12/20/20 Carvedilol [Coreg] 2 tab PO BID 01/05/22 Doxepin HCl 75 mg PO BEDTIME 01/05/22 Hydrocodone Bit/Acetaminophen [Hydrocodon-Acetaminophn 10-325] 1 tab PO QID 01/05/22 Collagenase [Santyl Ointment*] 1 appl TOP DAILY #1 tube 12/03/22 Magnesium Chloride [Slow-Mag] 64 mg PO DAILY #10 tab 01/10/22 New Medications: Collagenase [Santyl Ointment*] 1 appl TOP DAILY #1 tube Magnesium Chloride [Slow-Mag] 64 mg PO DAILY #10 tab Physician Discharge Instructions: OK TO DC IV AND DC HOME FOLLOW-UP WITH PRIMARY CARE PROVIDER IN 1-2 WEEKS FOLLOW-UP WITH CARDIOLOGY and SURGERY IN 1-2 WEEKS RETURN TO THE ER IF SYMPTOMS WORSENS CALL DR. JACOB AT [phone] IF ANY QUESTIONS REGARDING HOSPITAL STAY. PLEASE CALL THE FLOOR AT [phone] IF ANY MEDICATION OR NURSING QUESTIONS. Diet: ADA (heart healthy) Activity: Fall precautions Followup: Gigi Bedolla MD [ACTIVE - CAN ADMIT] - 1 Week (follow-up with Dr. Bedolla in 1 week to have PAD evaluated(stenosis of iliac artery suspected-to be treated once antibiotics completed)) Angelo Fowler MD [ACTIVE - CAN ADMIT] - 1 Week (follow-up at wound healing with Dr. Fowler in 1 week) Time spent managing pt's care (in minutes): 35
== END 2022-01-10 20:26 | disposition home or self-care (01) | DRG 264 ==
LOC: 2ND 17:13
PROVIDERS: ADMIT Hospitalist; ATTEND Hospitalist
PROC: 0JBQ0ZZ Excision of Right Foot Subcutaneous Tissue and Fascia, Open Approach (ICD-10-PCS; principal; 2022-01-06 11:15)
PROC: 02HV33Z Insertion of Infusion Device into Superior Vena Cava, Percutaneous Approach (ICD-10-PCS; 2022-01-09)
DX: E11.52 Type 2 diabetes mellitus with diabetic peripheral angiopathy with gangrene (principal); E87.1 Hypo-osmolality and hyponatremia; N17.9 Acute kidney failure, unspecified; E87.20 Acidosis, unspecified; L03.115 Cellulitis of right lower limb; M86.8X7 Other osteomyelitis, ankle and foot; E44.0 Moderate protein-calorie malnutrition; I12.9 Hypertensive chronic kidney disease with stage 1 through stage 4 chronic kidney disease, or unspecified chronic kidney disease; N18.2 Chronic kidney disease, stage 2 (mild); E11.22 Type 2 diabetes mellitus with diabetic chronic kidney disease; E11.42 Type 2 diabetes mellitus with diabetic polyneuropathy; E11.69 Type 2 diabetes mellitus with other specified complication; E11.621 Type 2 diabetes mellitus with foot ulcer; D63.1 Anemia in chronic kidney disease; D50.0 Iron deficiency anemia secondary to blood loss (chronic); G89.29 Other chronic pain; M54.9 Dorsalgia, unspecified; E83.42 Hypomagnesemia; E87.5 Hyperkalemia; D63.8 Anemia in other chronic diseases classified elsewhere; L97.519 Non-pressure chronic ulcer of other part of right foot with unspecified severity; Z90.49 Acquired absence of other specified parts of digestive tract; Z68.33 Body mass index [BMI] 33.0-33.9, adult; Z98.84 Bariatric surgery status; Z79.899 Other long term (current) drug therapy; Z20.822 Contact with and (suspected) exposure to COVID-19
CPT/HCPCS: 36415; 36569; 71045; 80048; 80053; 80202; 81001; 82024; 82533; 82570; 82947; 83735; 84100; 84156; 84550; 85025; 85610; 85652; 85730; 86140; 87070; 87075; 87077; 87186; 87205; 87811; 88304; 93925; A4216; J1170; J1650; J1815; J2001; J2250; J2405; J2704; J3010; J3370; J3475; J3590; J7030; J7040; Q5106

== ENCOUNTER 2022-02-12 15:07 | Observation (INO) | payer OTHER ==
--- OUTSIDE RECORDS SUMMARY | 2022-02-12 15:15 | XMS REPORT | Continuity of Care Document ---
:1975 Author Organization [facility] t Address [address] [place] [address] Care Team Providers Name Role Phone Evie Gusman MD Primary Care Physician [phone] EMIGDIO ALCALA Attending Clinician Unavailable MIRA BEDOYA Attending Clinician Unavailable CAROLINE VALLE Attending Clinician Unavailable SURENDRA SANDOVAL Attending Clinician Unavailable LAB90 Attending Clinician Unavailable GWENDOLYN CROOKS Attending Clinician Unavailable Doctor Unassigned, [place] Attending Clinician Unavailable ALMAS JACOB Attending Clinician Unavailable [facility]47 Attending Clinician Unavailable DIEGO LORENZO Attending Clinician Unavailable Almas Jacob MD Attending Clinician ED SAMS Attending Clinician Unavailable Denis SCRUGGS, Evie Enamorado Attending Clinician [phone] EVIE GUSMAN Attending Clinician Unavailable ANDRÉS CHAUDHRY Attending Clinician Unavailable Fernando SCRUGGS, Andrés Jean Attending Clinician Renetta ZAVALETA, Mickie Dejesus Attending Clinician BROOKS GIRALDO Attending Clinician Unavailable GRAYSON, BROOKS Attending Clinician Unavailable Jelly Yanes Attending Clinician Herrera Yoo DO Attending Clinician DIANNA JOHNSON Attending Clinician Unavailable SHAHEEN CACERES Attending Clinician Unavailable Keith SCRUGGS, Neftali Fermin Attending Clinician RYDER NATHAN Attending Clinician Unavailable JASON MONTAÑO Attending Clinician Unavailable Alex SCRUGGS, Dianna Holguin Attending Clinician FIDEL GARCIA Attending Clinician Unavailable Guzman Oliva DO Attending Clinician Fidel Garcia MD Attending Clinician MARY ESPANA Attending Clinician Unavailable Diego Lorenzo MD Attending Clinician AMARJIT LEO Attending Clinician [...] Policy Number Effective Date Expiration Date S ource [facility] 2 [id number] 2021 [facility] 00:00:00 ADMINISTRATORS DEVON COTA 9 [id number] 2022 [facility] ON 00:00:00 BCBS 2 [id number] 2021 00:00:00 [place] [id number] 2008 [facility] 00:00:00 Problems Condition Condition Condition Status Onset Resolution Last Treating Co mments Source Name Details Category Date Date Treatment Clinician Date 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-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 ulcer of 00:00: - left eye left eye 00 Audio/Video Technician a l Type 2 Type 2 Disease [...] Symptomati Disease Active U nivers c c 06-16 ity of bradycardi bradycardi [place] a a 00 Medical [place] 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 09 ity of kidney kidney 00:00: [place] disease disease 00 Medical Branch Major Major [...] on - Not on - Not 00 Audio/Video Technician a Controlled Controlled l 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 03-06 [facility] valgum valgum 00:00: - 00 Externa l Dislocatio Dislocatio Disease Active K elsey n of right n of right 03-06 Se ybold knee knee 00:00: - 00 Externa l History of History of Disease Active K elsey torn torn 03-06 [facility] meniscus meniscus 00:00: - of right of right 00 Audio/Video Technician a knee - Not knee - Not [...] kidney 2-06 ity of injury) injury) 00:00: [place] [address] Medical Branch Obesity Obesity Disease Active 2020-02 Univers (BMI (BMI 2-06 ity of 30-39.9) 30-39.9) 00:00: [place] [address] Medical Branch Primary Primary Disease Active 2020-02 Univers hypertensi hypertensi 2-06 it y of on on 00:00: [place] [address] Medical Branch Type 2 Type 2 Disease Active 2020-02 Univers diabetes diabetes 2-06 ity of mellitus mellitus 00:00: [place] without without 00 Medical complicati complicati Br anch on, on, without without long-term long-term current current use of use of insulin insulin Elevated Elevated Disease Active 2020-02 Unive rs brain brain 2-06 ity of natriureti natriureti 00:[place]: [place] c peptide c peptide 00 Medi damien (BNP) (BNP) Branch level level Anemia Anemia Disease Active 2020-02 Univers 2-06 ity of 00:00: [place] 00 Medical Branch Hyperkalem Hyperkalem Disease Active 2020-02 U dale ia ia 2-05 ity of 00:00: [place] [address] Medical Branch Allergies, Adverse Reactions, Alerts Allergy Allergy Status Severity Reaction(s) Onset Inactive Treating Comm ents Source Name Type Date Date Clinician Fd&C Propensi Active 2021-02 Other [place] Blue ty to 02-16 reaction( Seybold #1-Fd&C adverse 00:00: s): - Yellow reaction 00 Hallucina Exter na #10-Morp s tions l chandrika Amlodipi Propensi Active Swelling Wanda ey ne ty to 09-29 [place]bold adverse 00:00: - reaction 00 Externa s l No Known DA Active U [facility] 06-04 [place] [facility] 00:[facility]: [facility] NO KNOWN Drug Active Univers ALLERGIE Class ity of S [facility] Social History Social Habit Start Date Stop Date Quantity Comments Source Alcohol intake 2022-01-13 2022-01-13 Ex-drinker [place] Landeros bold - 00:00:00 00:00:00 (finding) External Exposure to 2021-11-22 2021-12-02 Not sure University SARS-CoV-2 00:00:00 08:34:00 [facility] (event) [place] Tobacco use and 2021-06-04 2021-06-04 Smokeless tobacco Ke froylan Seybold - exposure 00:00:00 00:00:00 non-user External Sex Ass[birth year] At [birth year] [facility] 00:00:00 00:00:00 Smoking Status Start Date Stop Date Source Tobacco smoking consumption unknown [facility] Never smoked tobacco [place] Grimes old - External Medications Ordered Filled Start Stop Current Ordering Indication Dosage Frequency Signature Comments Components Source Medication Medication Date Date Medication? Clinician (SIG) Name Name HYDROcodone 2021-02 Yes [id number] Take by [place] -Acetaminop 03-16 mouth Seybold hen 10325 13:51: - MG oral 43 Externa Tablet l prednisoLON 2021-[id number] ONE [place] E Acetate 1 03-16 (1) DROP Seyb old % 00:00: INTO LEFT - ophthalmic 00 EYE FOUR Exter na Suspension TIMES l DAILY. Moxifloxaci 2021-02 Yes [id number] 1[drp] Apply 1 [place] n HCl 0.5 % 03-16 drop to Seybo ld ophthalmic 00:00: eye 3 - Solution 00 times Externa daily l Fluconazole 2021-02 Yes [id number] TAKE 1 [place] 150 MG oral 2-05 TABLET BY Sey bold Tablet 00:00: MOUTH A - 00 SINGLE Externa DOSE l Doxepin HCl 2021-02 Yes [id number] TAKE 1 [place] 75 MG oral 2-05 CAPSULE Seybol d Capsule 00:00: (75 MG) BY - 00 MOUTH Externa DAILY AT l BEDTIME Fluoxetine 2021-02 Yes [id number] 40mg Take 1 K elsey HCl 40 MG 2-05 capsule Seybold oral 00:00: (40 mg - Capsule 00 total) by Externa mouth l daily Magnesium 2021-02 Yes 64mg 64 mg [place] Chloride 64 2-03 Seybold MG oral 00:00: - Tablet 00 Externa Delayed l Response Collagenase 2021-02 Yes DAILY Kelse y (Santyl) 2-03 Seybold 250 UNIT/GM 00:00: - apply 00 Externa externally l Ointment HYDROcodone 2021-02- No 1{tbl} Take 1 K elsey -Acetaminop 1-28 11-28 tablet by Se ybold hen 7.5-325 11:57: 00:00 mouth as - MG oral 37 :00 needed Externa Tablet l HYDROcodone 2021-02 Yes [id number] Take by [place] -Acetaminop 1-28 mouth Seybold hen 10-325 10:50: - MG oral 57 Externa Tablet l Carvedilol 2021-02 Yes [id number] 12.5mg Take 2 [place] 6.25 MG 1-28 tablets Seybold oral Tablet 00:00: (12.5 mg - 00 total) by Externa mouth in l the morning and 2 tablets (12.5 mg total) in the evening. Take with meals. Gabapentin 2021-02 Yes [id number] 800mg [id number] Take 1 [place] 800 MG oral 1-28 [id number] tablet Seybold Tablet 00:00: 3D (800 mg - 00 total) by Externa mouth 3 l times daily as needed (nerve pain) Carvedilol 2021-02 Yes [id number] 12.5mg Take 2 [place] 6.25 MG 1-28 tablets Seybold oral Tablet 00:00: (12.5 mg - 00 total) by Externa mouth in l the morning and 2 tablets (12.5 mg total) in the evening. Take with meals. Gabapentin 2021-02 Yes [id number] 800mg Q.[id number] Take 1 [place] 800 MG oral 1-28 [id number] tablet Seybold Tablet 00:00: 3D (800 mg - 00 total) by Externa mouth 3 l times daily as needed (nerve pain) Fluconazole 2021-02 Yes [id number] TAKE 1 [place] 150 MG oral 1-25 TABLET BY Sey bold Tablet 00:00: MOUTH A - 00 SINGLE Externa DOSE l PREDNISOLON 2021-[id number] Univers E ACETATE 1 0-06 [id number] (1) DROP it y of % 00:00: INTO LEFT [place] ophthalmic 00 EYE FOUR Medic al suspension TIMES Branch drops DAILY. PREDNISOLON 2021-[id number] ONE Univers E ACETATE 1 0-06 [id number] (1) DROP it y of % 00:00: INTO LEFT [place] ophthalmic 00 EYE FOUR Medic al suspension TIMES Branch drops DAILY. PREDNISOLON 2021-[id number] ONE Univers E ACETATE 1 0-06 [id number] (1) DROP it y of % 00:00: INTO LEFT [place] ophthalmic 00 EYE FOUR Medic al suspension TIMES Branch drops DAILY. PREDNISOLON 2021-[id number] ONE Univers E ACETATE 1 0-06 [id number] (1) DROP it y of % 00:00: INTO LEFT [place] ophthalmic 00 EYE FOUR Medic al suspension TIMES Branch drops DAILY. PREDNISOLON 2021-[id number] ONE Univers E ACETATE 1 0-06 [id number] (1) DROP it y of % 00:00: INTO LEFT [place] ophthalmic 00 EYE FOUR Medic al suspension TIMES Branch drops DAILY. PREDNISOLON 2021-[id number] ONE Univers E ACETATE 1 0-06 [id number] (1) DROP it y of % 00:00: INTO LEFT [place] ophthalmic 00 EYE FOUR Medic al suspension TIMES Branch drops DAILY. PREDNISOLON Yes [id number] PLACE ONE Univers E ACETATE 1 9-13 [id number] (1) DROP it y of % 00:00: INTO LEFT [place] ophthalmic 00 EYE FOUR Medic al suspension TIMES Branch drops DAILY. PREDNISOLON 2021- [id number] PLACE ONE Univers E ACETATE 1 9-13 10-06 [id number] (1) DROP i ty of % 00:00: 00:00 INTO LEFT [place] ophthalmic 00 :00 EYE FOUR Medic al suspension TIMES Branch drops DAILY. MOXIFLOXACI Yes [id number] INSTILL Univers N 0.5 % 09-30 9102 ONE (1) ity of ophthalmic 00:00: DR[place] drops 00 LEFT EYE Medical FOUR TIMES Branch DAILY. MOXIFLOXACI 2021-0 Yes [id number] INSTILL Univers N 0.5 % 09-30 ONE (1) ity of ophthalmic 00:00: DROP IN [place] drops 00 LEFT EYE Medical FOUR TIMES Branch DAILY. MOXIFLOXACI 2021-0 Yes [id number] INSTILL Univers N 0.5 % 09-30 ONE (1) ity of ophthalmic 00:00: DROP IN [place] drops 00 LEFT EYE Medical FOUR TIMES Branch DAILY. MOXIFLOXACI 2021-0 Yes [id number] INSTILL Univers N 0.5 % 09-30 ONE (1) ity of ophthalmic 00:00: DROP IN [place] drops 00 LEFT EYE Medical FOUR TIMES Branch DAILY. MOXIFLOXACI 2021-0 Yes [id number] INSTILL Univers N 0.5 % 09-30 ONE (1) ity of ophthalmic 00:00: DROP IN [place] drops 00 LEFT EYE Medical FOUR TIMES Branch DAILY. MOXIFLOXACI 2021-0 Yes [id number] INSTILL Univers N 0.5 % 09-30 ONE (1) ity of ophthalmic 00:00: DROP IN [place] drops 00 LEFT EYE Medical FOUR TIMES Branch DAILY. MOXIFLOXACI 2021-0 Yes [id number] INSTILL Univers N 0.5 % 09-30 ONE (1) ity of ophthalmic 00:00: DROP IN [place] drops 00 LEFT EYE Medical FOUR TIMES Branch DAILY. MOXIFLOXACI 0 Yes [id number] INSTILL Univers N 0.5 % 09-30 ONE (1) ity of ophthalmic 00:00: DROP IN [place] drops 00 LEFT EYE Medical FOUR TIMES Branch DAILY. Carvedilol 0 2021- No TAKE ONE Ke lsey 6.25 MG 09-30 (1) Seybold oral Tablet 00:00: 00:00 TABLET(S) - 00 :00 BY MOUTH Externa TWICE A l DAY (EVERY MORNING AND EVENING). prednisoLON 2021-0 Yes [id number] 1[drp] Place 1 Univers E acetate 09-17 [id number] Drop in ity o f (PRED 00:00: left eye 4 [place] FORTE) 1 % 00 (four) Medical ophthalmic times Branch suspension daily. drops Doxepin HCl Yes [id number] TAKE 1 [place] 75 MG oral 8-10 CAPSULE Seybol d Capsule 00:00: (75 MG) BY - 00 MOUTH Externa DAILY AT l BEDTIME Fluoxetine Yes [id number] 40mg Take 1 K elsey HCl 40 MG 8-10 capsule Seybold oral 00:00: (40 mg - Capsule 00 total) by Externa mouth l daily prednisoLON Yes PLACE ONE K elsey E Acetate 1 8-10 (1) DROP Seyb old % 00:00: INTO LEFT - ophthalmic 00 EYE FOUR Exter na Suspension TIMES l DAILY. prednisoLON 2021- No PLACE ONE [place] E Acetate 1 8-10 12-06 (1) DROP Sey bold % 00:00: 00:00 INTO LEFT - ophthalmic 00 :00 EYE FOUR Exter na Suspension TIMES l DAILY. prednisoLON 2021- No [id number] 1[drp] Place 1 Univers E acetate 8-10 10-21 [id number] Drop in ity of (PRED 00:00: 00:00 left eye 4 [place] FORTE) 1 % 00 :00 (four) Medical ophthalmic times Branch suspension daily. drops ketorolac Yes [id number] 1[drp] Place 1 Univers 0.5 % 6-07 9102 Drop in ity of ophthalmic 00:00: left eye 4 [place] solution 00 (four) Medical times Branch daily. ketorolac Yes [id number] 1[drp] Place 1 Univers 0.5 % 6-07 9102 Drop in ity of ophthalmic 00:00: left eye 4 [place] solution 00 (four) Medical times Branch daily. ketorolac 0 Yes [id number] 1[drp] Place 1 Univers 0.5 % 6-07 9102 Drop in ity of ophthalmic 00:00: left eye 4 [place] solution 00 (four) Medical times Branch daily. ketorolac 2021-0 Yes [id number] 1[drp] Place 1 Univers 0.5 % 6-07 9102 Drop in ity of ophthalmic 00:00: left eye 4 [place] solution 00 (four) Medical times Branch daily. ketorolac Yes [id number] 1[drp] Place 1 Univers 0.5 % 6-07 9102 Drop in ity of ophthalmic 00:00: left eye 4 [place] solution 00 (four) Medical times Branch daily. ketorolac 2021-0 Yes [id number] 1[drp] Place 1 Univers 0.5 % 6-07 9102 Drop in ity of ophthalmic 00:00: left eye 4 [place] solution 00 (four) Medical times Branch daily. ketorolac 2021-0 Yes [id number] 1[drp] Place 1 Univers 0.5 % 6-07 9102 Drop in ity of ophthalmic 00:00: left eye 4 [place] solution 00 (four) Medical times Branch daily. ketorolac 2021-0 Yes [id number] 1[drp] Place 1 Univers 0.5 % 6-07 9102 Drop in ity of ophthalmic 00:00: left eye 4 [place] solution 00 (four) Medical times Branch daily. Tizanidine 0 Yes TAKE 3 K[place] y HCl 2 MG 6-04 CAPSULES Seybold oral 00:00: BY MOUTH - Capsule 00 EVERY 6 Externa HOURS l Tizanidine 0 Yes TAKE 3 [place] HCl 2 MG 6-04 CAPSULES Seybold oral 00:00: BY MOUTH - Capsule 00 EVERY 6 Externa HOURS l hydroCHLORO 2021-0 Yes [id number] 25mg Take 2 Univers thiazide 5-29 9102 capsules ity of 12.5 mg 00:00: by mouth [place] capsule 00 daily. Medical Branch hydroCHLORO 0 Yes [id number] 25mg Take 2 Univers thiazide 5-29 9102 capsules ity of 12.5 mg 00:00: by mouth [place] capsule 00 daily. Medical Branch hydroCHLORO 2021-0 Yes [id number] 25mg Take 2 Univers thiazide 5-29 9102 capsules ity of 12.5 mg 00:00: by mouth [place] capsule 00 daily. Medical Branch hydroCHLORO 2021-0 Yes [id number] 25mg Take 2 Univers thiazide 5-29 9102 capsules ity of 12.5 mg 00:00: by mouth [place] capsule 00 daily. Medical Branch hydroCHLORO 2021-0 Yes [id number] 25mg Take 2 Univers thiazide 5-29 9102 capsules ity of 12.5 mg 00:00: by mouth [place] capsule 00 daily. Medical Branch hydroCHLORO Yes [id number] 25mg Take 2 Univers thiazide 5-29 9102 capsules ity of 12.5 mg 00:00: by mouth [place] capsule 00 daily. Medical Branch hydroCHLORO Yes [id number] 25mg Take 2 Univers thiazide 5-29 9102 capsules ity of 12.5 mg 00:00: by mouth [place] capsule 00 daily. Medical Branch hydroCHLORO Yes [id number] 25mg Take 2 Univers thiazide 5-29 9102 capsules ity of 12.5 mg 00:00: by mouth [place] capsule 00 daily. Medical Branch tiZANidine Yes 6mg Take 6 mg Un luz marina 2 mg 5-28 by mouth ity of capsule 17:49: every 6 [place] [address] (six) Medical hours. Branch FLUoxetine Yes 40mg Take 40 mg U nivers 40 mg 5-28 by mouth ity of capsule 17:49: daily. [place] [address] Medical Branch naloxegoL Yes 25mg Take 25 mg Un luz marina (MOVANTIK) 5-28 by mouth ity o f 25 mg Tab 17:49: daily. [place] [address] Medical Branch ferrous Yes 325mg Take 325 [...] by mouth ity of ORAL) 17:49: every [place] 34 evening. Medical Branch morphine ER Yes 15mg Take 15 mg Univers 15 mg 12 hr 5-28 by mouth ity of tablet 17:49: daily. [place] [address] Medical Branch docusate Yes 100mg Take 100 [...] by mouth ity of capsule 17:49: daily. [place] [address] Medical Branch naloxegoL Yes 25mg Take 25 mg Un luz mar[place] (MOVANTIK) 5-28 by mouth ity o f 25 mg Tab 17:49: daily. [place] [address] Medical Branch ferrous Yes 325mg Take 325 [...] by mouth ity of tablet 17:49: daily. [place] [address] Medical Branch docusate Yes 100mg Take 100 [...] by mouth ity of capsule 17:49: daily. [place] [address] Medical Branch naloxegoL 0 Yes 25mg Take 25 mg Un luz mar[place] (MOVANTIK) 5-28 by mouth ity o f 25 mg Tab 17:49: daily. [place] [address] Medical Branch ferrous Yes 325mg Take 325 [...] by mouth ity of tablet 17:49: daily. [place] [address] Medical Branch docusate Yes 100mg Take 100 [...] mouth ity of capsule 17:49: every 6 [place] [address] (six) Medical hours. Branch FLUoxetine Yes 40mg Take 40 mg U nivers 40 mg 5-28 by mouth ity of capsule 17:49: daily. [place] [address] Medical Branch naloxegoL 0 Yes 25mg Take 25 mg Un luz [place] (MOVANTIK) 5-28 by mouth ity o f 25 mg Tab 17:49: daily. [place] [address] Medical Branch ferrous 0 Yes 325mg Take [...] by mouth ity of ORAL) 17:49: every [place] [address] evening. Medical Branch morphine ER Yes 15mg Take 15 mg Univers 15 mg 12 hr 5-28 by mouth ity of tablet 17:49: daily. [place] [address] Medical Branch docusate 0 Yes 100mg Take [...] mouth ity of capsule 17:49: every 6 [place] [address] (six) Medical hours. Branch FLUoxetine Yes 40mg Take 40 mg U nivers 40 mg 5-28 by mouth ity of capsule 17:49: daily. [place] [address] Medical Branch naloxegoL Yes 25mg Take 25 mg Un luz [place] (MOVANTIK) 5-28 by mouth ity o f 25 mg Tab 17:49: daily. [place] [address] Medical Branch ferrous Yes 325mg Take 325 [...] by mouth ity of ORAL) 17:49: every [place] 34 evening. Medical Branch morphine ER Yes 15mg Take 15 mg Univers 15 mg 12 hr 5-28 by mouth ity of tablet 17:49: daily. [place] [address] Medical Branch docusate Yes 100mg Take 100 [...] mouth ity of capsule 17:49: every 6 [place] [address] (six) Medical hours. Branch FLUoxetine Yes 40mg Take 40 mg U nivers 40 mg 5-28 by mouth ity of capsule 17:49: daily. [place] [address] Medical Branch naloxegoL Yes 25mg Take 25 mg Un luz mar[place] (MOVANTIK) 5-28 by mouth ity o f 25 mg Tab 17:49: daily. [place] [address] Medical Branch ferrous Yes 325mg Take 325 [...] by mouth ity of tablet 17:49: daily. [place] [address] Medical Branch docusate Yes 100mg Take 100 [...] mouth ity of capsule 17:49: every 6 [place] [address] (six) Medical hours. Branch FLUoxetine Yes 40mg Take 40 mg U nivers 40 mg 5-28 by mouth ity of capsule 17:49: daily. [place] [address] Medical Branch naloxegoL Yes 25mg Take 25 mg Un luz [place] (MOVANTIK) 5-28 by mouth ity o f 25 mg Tab 17:49: daily. [place] [address] Medical Branch ferrous Yes 325mg Take 325 [...] by mouth ity of tablet 17:49: daily. [place] [address] Medical Branch docusate 0 Yes 100mg Take 100 Univ ers 100 mg 5-28 mg by ity of capsule 17:49: mouth [place] 34 daily. Medical Branch nystatin Yes Apply to Unive rs 100,000 5-28 area(s) 2 ity of unit/gram 17:49: (two) [place] cream 34 times Medical daily. Branch ondansetron 0 Yes 4mg Take 4 mg U nivers 4 mg 5-28 by mouth ity of disintegrat 17:49: every 8 Sukhjinder as ing tablet 34 (eight) Medica l hours as Branch needed for Nausea and Vomiting (N/V). tiZANidine 0 Yes 6mg Take 6 mg Un luz marina 2 mg 5-28 by mouth ity of capsule 17:49: every 6 [place] 34 (six) Medical hours. Branch FLUoxetine 0 Yes 40mg Take 40 mg U nivers 40 mg 5-28 by mouth ity of capsule 17:49: daily. [place] [address] Medical Branch naloxegoL 0 Yes 25mg Take 25 mg Un luz marina (MOVANTIK) 5-28 by mouth ity o f 25 mg Tab 17:49: daily. [place] [address] Medical Branch ferrous 0 Yes 325mg Take [...] needed for Pain (scale 7-10). doxepin HCl 2022-0 Yes 75mg Take 75 mg Univers (DOXEPIN 5-28 by mouth ity of ORAL) 17:49: every [place] 34 evening. Medical Branch morphine ER Yes 15mg Take 15 mg Univers 15 mg 12 hr 5-28 by mouth ity of tablet 17:49: daily. [place] 34 Medical Branch docusate Yes 100mg Take [...] Nausea and Vomiting (N/V). natamycin 5 Yes [id number] 1[drp] Place 1 Univers % 5-28 9102 Drop in ity of ophthalmic 00:00: left eye Sukhjinder as suspension 00 every 2 Medica l drops (two) Branch hours. erythromyci Yes [id number] .5[in_u Place 0.5 Univers n 5 mg/gram 5-28 9102 s] Inches in ity of (0.5 %) 00:00: left eye [place] ophthalmic 00 at Medical ointment bedtime. Branch hydrALAZINE Yes [id number] 5mg Take 0.5 Univers 10 mg 5-28 9102 tablets by ity of tablet 00:00: mouth 2 [place] 00 (two) Medical times Branch daily. natamycin 5 Yes [id number] 1[drp] Place 1 Univers % 5-28 9102 Drop in ity of ophthalmic 00:00: left eye Sukhjinder as suspension 00 every 2 Medica l drops (two) Branch hours. erythromyci Yes [id number] .5[in_u Place 0.5 Univers n 5 mg/gram 5-28 9102 s] Inches in ity of (0.5 %) 00:00: left eye [place] ophthalmic 00 at Medical ointment bedtime. Branch hydrALAZINE Yes [id number] 5mg Take 0.5 Univers 10 mg 5-28 9102 tablets by ity of tablet 00:00: mouth 2 [place] 00 (two) Medical times Branch daily. natamycin 5 2021-0 Yes [id number] 1[drp] Place 1 Univers % 5-28 9102 Drop in ity of ophthalmic 00:00: left eye Sukhjinder as suspension 00 every 2 Medica l drops (two) Branch hours. erythromyci Yes [id number] .5[in_u Place 0.5 Univers n 5 mg/gram 5-28 9102 s] Inches in ity of (0.5 %) 00:00: left eye [place] ophthalmic 00 at Medical ointment bedtime. Branch hydrALAZINE Yes [id number] 5mg Take 0.5 Univers 10 mg 5-28 9102 tablets by ity of tablet 00:00: mouth 2 00 (two) Medical times Branch daily. natamycin 5 Yes [id number] 1[drp] Place 1 Univers % 5-28 9102 Drop in ity of ophthalmic 00:00: left eye Sukhjinder as suspension 00 every 2 Medica l drops (two) Branch hours. erythromyci Yes [id number] .5[in_u Place 0.5 Univers n 5 mg/gram 5-28 9102 s] Inches in ity of (0.5 %) 00:00: left eye [place] ophthalmic 00 at Medical ointment bedtime. Branch hydrALAZINE Yes [id number] 5mg Take 0.5 Univers 10 mg 5-28 9102 tablets by ity of tablet 00:00: mouth 2 [place] 00 (two) Medical times Branch daily. natamycin 5 0 Yes [id number] 1[drp] Place 1 Univers % 5-28 9102 Drop in ity of ophthalmic 00:00: left eye Sukhjinder as suspension 00 every 2 Medica l drops (two) Branch hours. erythromyci Yes [id number] .5[in_u Place 0.5 Univers n 5 mg/gram 5-28 9102 s] Inches in ity of (0.5 %) 00:00: left eye [place] ophthalmic 00 at Medical ointment bedtime. Branch hydrALAZINE Yes [id number] 5mg Take 0.5 Univers 10 mg 5-28 9102 tablets by ity of tablet 00:00: mouth 2 (two) Medical times Branch daily. natamycin 5 2021-0 Yes [id number] 1[drp] Place 1 Univers % 5-28 9102 Drop in ity of ophthalmic 00:00: left eye Sukhjinder as suspension 00 every 2 Medica l drops (two) Branch hours. erythromyci 0 Yes [id number] .5[in_u Place 0.5 Univers n 5 mg/gram 5-28 9102 s] Inches in ity of (0.5 %) 00:00: left eye [place] ophthalmic 00 at Medical ointment bedtime. Branch hydrALAZINE Yes [id number] 5mg Take 0.5 Univers 10 mg 5-28 9102 tablets by ity of tablet 00:00: mouth 2 (two) Medical times Branch daily. natamycin 5 2021-0 Yes [id number] 1[drp] Place 1 Univers % 5-28 9102 Drop in ity of ophthalmic 00:00: left eye Sukhjinder as suspension 00 every 2 Medica l drops (two) Branch hours. erythromyci 0 Yes [id number] .5[in_u Place 0.5 Univers n 5 mg/gram 5-28 9102 s] Inches in ity of (0.5 %) 00:00: left eye [place] ophthalmic 00 at Medical ointment bedtime. Branch hydrALAZINE 0 Yes [id number] 5mg Take 0.5 Univers 10 mg 5-28 9102 tablets by ity of tablet 00:00: mouth 2 (two) Medical times Branch daily. natamycin 5 2021-0 Yes [id number] 1[drp] Place 1 Univers % 5-28 9102 Drop in ity of ophthalmic 00:00: left eye Sukhjinder as suspension 00 every 2 Medica l drops (two) Branch hours. erythromyci 2021-0 Yes [id number] .5[in_u Place 0.5 Univers n 5 mg/gram 5-28 9102 s] Inches in ity of (0.5 %) 00:00: left eye [place] ophthalmic 00 at Medical ointment bedtime. Branch hydrALAZINE Yes [id number] 5mg Take 0.5 Univers 10 mg 5-28 9102 tablets by ity of tablet 00:00: mouth 2 [place] 00 (two) Medical times [place] daily. HYDROcodone 0 Yes [id number] Take by [place] -Acetaminop 5-18 mouth Seybold hen 10-325 11:11: MG oral 20 Tablet Metoprolol 2021-0 Yes [id number] 50mg TAKE 1 K elsey Tartrate 50 5-09 TABLET (50 Se ybold MG oral 00:00: MG TOTAL) Tablet 00 BY MOUTH IN THE MORNING AND 1 TABLET (50 MG TOTAL) IN THE EVENING. hydroCHLORO Yes [id number] 25mg TAKE 1 [place] thiazide 25 5-09 TABLET (25 Se ybold MG oral 00:00: MG TOTAL) Tablet 00 BY MOUTH DAILY. Metoprolol Yes [id number] 50mg TAKE 1 K elsey Tartrate 50 5-09 TABLET (50 Se ybold MG oral 00:00: MG TOTAL) Tablet 00 BY MOUTH IN THE MORNING AND 1 TABLET (50 MG TOTAL) IN THE EVENING. hydroCHLORO Yes [id number] 25mg TAKE 1 [place] thiazide 25 5-09 TABLET (25 Se ybold MG oral 00:00: MG TOTAL) Tablet 00 BY MOUTH DAILY. Nystatin Yes [id number] APPLY 1 Ke lsey [id number] 4-28 APPLICATIO Seybold UNIT/GM 00:00: N apply 00 TOPICALLY externally 3 TIMES Powder DAILY. Nystatin 2021-0 Yes [id number] APPLY 1 Ke lsey [id number] 4-28 APPLICATIO Seybold UNIT/GM 00:00: N apply 00 TOPICALLY externally 3 TIMES Powder DAILY. HYDROcodone 2021-0 Yes [id number] Take by [place] -Acetaminop 4-15 mouth Seybold hen 10-325 11:36: MG oral 16 Tablet HYDROcodone 2021-0 Yes [id number] Take by [place] -Acetaminop 4-15 mouth Seybold [...] meal of the day Methylpredn 2021- No [id number] 40mg [place] isolone 05-16 Seybold Acetate 16:45: 16:37 (Depo-Medro 00 :00 l) 40 mg/ml - Physician Administere d (J1030) Methylpredn 2021- No [id number] 40mg 40 mg, [place] isolone 05-16 Physician Seybol d Acetate 16:45: 16:37 Administer (Depo-Medro 00 :00 ed, ONCE, l) 40 mg/ml 1 dose, On - Physician 05/16/21 Administere at 1145 d (J1030) HYDROcodone Yes [id number] Take by [place] -Acetaminop 4-08 mouth Seybold hen 10-325 10:52: MG oral 25 Tablet HYDROcodone Yes [id number] Take by [place] -Acetaminop 3-29 mouth Seybold hen 10-325 09:51: MG oral 33 Tablet hydroCHLORO Yes [id number] 25mg Take 1 [place] thiazide 25 3-29 tablet (25 Se ybold MG oral 00:00: mg total) Tablet 00 by mouth daily Nystatin Yes [id number] Apply 1 Ke lsey [id number] 3-29 applicatio Seybold UNIT/GM 00:00: n apply 00 topically externally 3 times Powder daily Ondansetron Yes [id number] 4mg Q.[id number] Take 1 [place] (Zofran 3-29 [id number] tablet (4 S eybold ODT) 4 MG 00:00: 3D mg total) oral TABLET 00 by mouth DISPERSIBLE every 8 hours as needed for nausea hydroCHLORO Yes [id number] 25mg Take 1 [place] thiazide 25 3-29 tablet (25 Se ybold MG oral 00:00: mg total) Tablet 00 by mouth daily Nystatin Yes [id number] Apply 1 Ke lsey [id number] 3-29 applicatio Seybold UNIT/GM 00:00: n apply 00 topically externally 3 times Powder daily Ondansetron 2021-0 Yes [id number] 4mg Q.[id number] Take 1 [place] (Zofran 3-29 [id number] tablet (4 S eybold ODT) 4 MG 00:00: 3D mg total) oral TABLET 00 by mouth DISPERSIBLE every 8 hours as needed for nausea hydroCHLORO 2021-0 Yes [id number] 25mg Take 1 [place] thiazide 25 -29 tablet (25 Se ybold MG oral 00:00: mg total) Tablet 00 by mouth daily Nystatin 2021-0 Yes [id number] Apply 1 Ke lsey 3 applicatio Seybold UNIT/GM 00:00: n apply 00 topically externally 3 times Powder daily Ondansetron 2021-0 Yes [id number] 4mg Q.[id number] Take 1 [place] (Zofran 3-29 [id number] tablet (4 S eybold ODT) 4 MG 00:00: 3D mg total) oral TABLET 00 by mouth DISPERSIBLE every 8 hours as needed for nausea Ondansetron 2021-0 Yes [id number] 4mg Q.[id number] Take 1 [place] (Zofran 3-29 [id number] tablet (4 S eybold ODT) 4 MG 00:00: 3D mg total) oral TABLET 00 by mouth DISPERSIBLE every 8 hours as needed for nausea Ondansetron 2021-0 Yes [id number] 4mg Q.[id number] Take 1 [place] (Zofran 3-29 [id number] tablet (4 S eybold ODT) 4 MG 00:00: 3D mg total) oral TABLET 00 by mouth DISPERSIBLE every 8 hours as needed for nausea Ondansetron 2021-0 Yes [id number] 4mg Q.[id number] Take 1 [place] (Zofran 3-29 [id number] tablet (4 S eybold ODT) 4 MG 00:00: 3D mg total) - oral TABLET 00 by mouth Exte rna DISPERSIBLE every 8 l hours as needed for nausea Ondansetron 2-0 Yes [id number] 4mg Q.[id number] Take 1 [place] (Zofran 3-29 [id number] tablet (4 S eybold ODT) 4 MG 00:00: 3D mg total) - oral TABLET 00 by mouth Exte rna DISPERSIBLE every 8 l hours as needed for nausea HYDROcodone Yes [id number] Take by [place] -Acetaminop 3-25 mouth Seybold hen 10-325 10:27: MG oral 08 Tablet Pantoprazol 2021-0 Yes [place]enne e Sodium 40 3-25 Seybold MG oral 00:00: Tablet 00 Delayed Response Pantoprazol 0 Yes [place] e Sodium 40 3-25 Seybold MG oral 00:00: Tablet 00 Delayed Response Pantoprazol 0 Yes [place] e Sodium 40 3-25 Seybold MG oral 00:00: Tablet 00 Delayed Response Pantoprazol Yes [place] e Sodium 40 3-25 Seybold MG oral 00:00: Tablet 00 Delayed Response Pantoprazol 0 Yes [place]enne e Sodium 40 3-25 Seybold MG oral 00:00: Tablet 00 Delayed Response Cosyntropin 2021- No [id number] .25mg [place] (CORTROSYN) 04-30 Seybold 0.25 mg 14:15: 14:21 00 :00 Cosyntropin 0 2021- No [id number] .25mg 0.25 mg, [place] (CORTROSYN) 04-30- intramuscu S eybold 0.25 mg 14:15: 14:21 lar, ONCE, 00 :00 1 dose, On Wed04/30/21 at 0915 Tizanidine 2021- No [id number] every 6 [place] HCl 2 MG 04-30- (six) Seybold oral 08:46: 00:00 hours Capsule 51 :00 HYDROcodone 0 Yes [id number] Take by [place] -Acetaminop 3-23 mouth Seybold [...] needed. l ) does not apply Misc Continuous Yes Use daily Ke lsey Blood Gluc 3-15 to check Seybo ld Transmit 00:00: blood 3-4 - (Dexcom G6 00 times and Exte rna Transmitter as needed. l ) does not apply Misc Metoprolol Yes [id number] 50mg Take 1 K elsey Tartrate 50 3-08 tablet (50 Se ybold MG oral 00:00: mg total) Tablet 00 by mouth in the morning and 1 tablet (50 mg total) in the evening. Docusate 2-0 Yes [id number] 100mg Take 100 [place] Sodium 100 3-08 mg by Seybold MG oral 00:00: mouth 2 Tablet 00 times daily Metoprolol 2-0 Yes [id number] 50mg Take 1 K elsey Tartrate 50 3-08 tablet (50 Se ybold MG oral 00:00: mg total) Tablet 00 by mouth in the morning and 1 tablet (50 mg total) in the evening. Docusate 2021-0 Yes [id number] 100mg Take 100 [place] Sodium 100 3-08 mg by Seybold MG oral 00:00: mouth 2 Tablet 00 times daily Metoprolol 2-0 Yes [id number] 50mg Take 1 K elsey Tartrate 50 3-08 tablet (50 Se ybold MG oral 00:00: mg total) Tablet 00 by mouth in the morning and 1 tablet (50 mg total) in the evening. Docusate 2021-0 Yes [id number] 100mg Take 100 [place] Sodium 100 3-08 mg by Seybold MG oral 00:00: mouth 2 Tablet 00 times daily Metoprolol 2-0 Yes [id number] 50mg Take 1 K elsey Tartrate 50 3-08 tablet (50 Se ybold MG oral 00:00: mg total) Tablet 00 by mouth in the morning and 1 tablet (50 mg total) in the evening. Docusate 2021-0 Yes [id number] 100mg Take 100 [place] Sodium 100 3-08 mg by Seybold MG oral 00:00: mouth 2 Tablet 00 times daily Metoprolol 2022-0 Yes [id number] 50mg Take 1 K elsey Tartrate 50 3-08 tablet (50 Se ybold MG oral 00:00: mg total) Tablet 00 by mouth in the morning and 1 tablet (50 mg total) in the evening. Docusate 2-0 Yes [id number] 100mg Take 100 [place] Sodium 100 3-08 mg by Seybold MG oral 00:00: mouth 2 Tablet 00 times daily Docusate 2-0 Yes [id number] 100mg Take 100 [place] Sodium 100 3-08 mg by Seybold MG oral 00:00: mouth 2 Tablet 00 times daily Docusate 2-0 Yes [id number] 100mg Take 100 [place] Sodium 100 3-08 mg by Seybold MG oral 00:00: mouth 2 Tablet 00 times daily Tizanidine Yes [id number] every 6 [place] HCl 2-28 (six) Seybold (Zanaflex) 08:53: hours 2 MG oral 51 Capsule HYDROcodone Yes [id number] Take by [place] -Acetaminop 2-28 mouth Seybold hen 10-325 08:53: MG oral 32 Tablet Fluoxetine 2021- No [id number] Take by [place] HCl 20 MG 2-24 02-24 mouth 2 Seybol d oral 15:04: 00:00 times Capsule 25 :00 daily Metformin 2021- No [id number] 1000mg Take 1,000 [place] HCl 1000 MG 2-23 02-23 mg by Seybol d oral Tablet 10:44: 00:00 mouth 42 :00 daily Continuous Yes [id number] Check K elsey Blood Gluc 2-23 Seybold Sensor 00:00: (Dexcom G6 00 Sensor) does not apply Misc Continuous Yes [id number] Check K elsey Blood Gluc 2-23 sugar 4 Seybol d Dance Coach 00:00: times (Dexcom G4 00 daily and [place] as needed Rcv/Share) does not apply Device Continuous Yes [id number] Check K elsey Blood Gluc 2-23 Seybold Sensor 00:00: (Dexcom G6 00 Sensor) does not apply Misc Continuous Yes [id number] Check K elsey Blood Gluc 2-23 sugar 4 Seybol d Dance Coach 00:00: times (Dexcom G4 00 daily and [place] as needed Rcv/Share) does not apply Device Continuous Yes [id number] Check K elsey Blood Gluc 2-23 Seybold Sensor 00:00: (Dexcom G6 00 Sensor) does not apply Misc Continuous Yes [id number] Check K elsey Blood Gluc 2-23 sugar 4 Seybol d Dance Coach 00:00: times (Dexcom G4 00 daily and [place] as needed Rcv/Share) does not apply Device Continuous Yes [id number] Check K elsey Blood Gluc 2-23 Seybold Sensor 00:00: (Dexcom G6 00 Sensor) does not apply Misc Continuous 0 Yes [id number] Check K elsey Blood Gluc 2-23 sugar 4 Seybol d Dance Coach 00:00: times (Dexcom G4 00 daily and [place] as needed Rcv/Share) does not apply Device Continuous 2022-0 Yes [id number] Check K elsey Blood Gluc 2-23 Seybold Sensor 00:00: (Dexcom G6 00 Sensor) does not apply Misc Continuous 2022-0 Yes [id number] Check K elsey Blood Gluc 2-23 sugar 4 Seybol d Dance Coach 00:00: times (Dexcom G4 00 daily and [place] as needed Rcv/Share) does not apply Device Continuous 2022-0 Yes [id number] Check K elsey Blood Gluc 2-23 Seybold Sensor 00:00: (Dexcom G6 00 Sensor) does not apply Misc Continuous 2022-0 Yes [id number] Check K elsey Blood Gluc 2-23 sugar 4 Seybol d Dance Coach 00:00: times (Dexcom G4 00 daily and [place] as needed Rcv/Share) does not apply Device Continuous 2022-0 Yes [id number] Check K elsey Blood Gluc 2-23 Seybold Sensor 00:00: (Dexcom G6 00 Sensor) does not apply Misc Continuous 2022-0 Yes [id number] Check K elsey Blood Gluc 2-23 sugar 4 Seybol d Dance Coach 00:00: times (Dexcom G4 00 daily and [place] as needed Rcv/Share) does not apply Device Continuous 2022-0 Yes [id number] Check K elsey Blood Gluc 2-23 Seybold Sensor 00:00: (Dexcom G6 00 Sensor) does not apply Misc Continuous 2022-0 Yes [id number] Check K elsey Blood Gluc 2-23 sugar 4 Seybol d Dance Coach 00:00: times (Dexcom G4 00 daily and [place] as needed Rcv/Share) does not apply Device Continuous 2022-0 Yes [id number] Check K elsey Blood Gluc 2-23 Seybold Sensor 00:00: (Dexcom G6 00 Sensor) does not apply Misc Continuous 2022-0 Yes [id number] Check K elsey Blood Gluc 2-23 sugar 4 Seybol d Dance Coach 00:00: times (Dexcom G4 00 daily and [place] as needed Rcv/Share) does not apply Device Continuous 2022-0 Yes [id number] Check K elsey Blood Gluc 2-23 sugar 4 Seybol d Dance Coach 00:00: times - (Dexcom G4 00 daily and Exte rna [place] as needed l Rcv/Share) does not apply Device Continuous Yes [id number] Check K elsey Blood Gluc 2-23 sugar 4 Seybol d Dance Coach 00:00: times - (Dexcom G4 00 daily and Exte rna [place] as needed l Rcv/Share) does not apply Device Docusate Yes [place] Sodium 100 2-22 Seybold MG oral 00:00: Capsule 00 Docusate 0 Yes [place] Sodium 100 2-22 Seybold MG oral 00:00: Capsule 00 Docusate 0 2022- No [place] Sodium 100 2-22 03-23 Seybold MG oral 00:00: 00:00 Capsule 00 :00 Lisinopril 2021-0 2- No [place] 40 MG oral 2-22 02-24 Seybold Tablet 00:00: 00:00 00 :00 Tamsulosin 0 Yes 1{capsu Take 1 Ke [...] Take 10 mg [place] Besylate 10 2-18 03-29 by mouth Sey bold MG oral 00:00: 00:00 daily Tablet 00 :00 Metoprolol 2021-0 Yes [id number] TAKE 1 K elsey Tartrate 50 2-17 TABLET BY Sey bold MG oral 00:00: MOUTH 2 Tablet 00 TIMES DAILY Tizanidine 2021-0 Yes TAKE 3 Kelse y HCl 2 MG 2-17 TABLETS BY Seybo ld oral Tablet 00:00: MOUTH 00 EVERY 6 HOURS Metoprolol 2021-0 Yes [id number] TAKE 1 K elsey Tartrate 50 2-17 [...] 00 MOUTH DAILY AT BEDTIME Doxepin HCl 0 Yes TAKE 1 Wanda ey 75 MG [...] 00 MOUTH DAILY AT BEDTIME Fluoxetine Yes [id number] Take by [place] HCl 20 MG 1-27 mouth 2 Seybold oral 08:05: times Capsule 51 daily Metformin 2021-0 Yes [id number] 1000mg Take 1,000 [place] HCl 1000 MG 1-27 mg by Seybold oral Tablet 08:05: mouth 32 daily HYDROcodone 2021-0 Yes [id number] Take by [place] -Acetaminop 1-27 mouth Seybold hen 10-325 08:05: MG oral 25 Tablet Tizanidine 2021-0 Yes [id number] every 6 [place] HCl 1-27 (six) Seybold (Zanaflex) 08:05: hours 2 MG oral 25 Capsule HYDROcodone 0 Yes [id number] Take by [place] -Acetaminop 1-27 mouth Seybold hen 10-325 08:05: MG oral 25 Tablet Tizanidine 0 Yes [id number] every 6 [place] HCl 1-27 (six) Seybold (Zanaflex) 08:05: hours 2 MG oral 25 Capsule Docusate 0 Yes [id number] 100mg Take 100 [place] Sodium 100 1-26 mg by Seybold MG oral 00:00: mouth 2 Tablet 00 times daily Sennosides 0 Yes [id number] 1{capsu Take 1 [place] (Senna) 8.6 1-26 le} capsule by Se ybold MG oral 00:00: mouth Capsule 00 daily Docusate 0 Yes [id number] 100mg Take 100 [place] Sodium 100 1-26 mg by Seybold MG oral 00:00: mouth 2 Tablet 00 times daily Sennosides 0 Yes [id number] 1{capsu Take 1 [place] (Senna) 8.6 1-26 le} capsule by Se ybold MG oral 00:00: mouth Capsule 00 daily Sennosides 2021-0 Yes [id number] 1{capsu Take 1 [place] (Senna) 8.6 1-26 le} capsule by Se ybold MG oral 00:00: mouth Capsule 00 daily Sennosides 2021-0 Yes [id number] 1{capsu Take 1 [place] (Senna) 8.6 1-26 le} capsule by Se ybold MG oral 00:00: mouth Capsule 00 daily Sennosides 2021-0 Yes [id number] 1{capsu Take 1 [place] (Senna) 8.6 1-26 le} capsule by Se ybold MG oral 00:00: mouth Capsule 00 daily Sennosides 2021-0 Yes [id number] 1{capsu Take 1 [place] (Senna) 8.6 1-26 le} capsule by Se ybold MG oral 00:00: mouth Capsule 00 daily Sennosides 2021-0 Yes [id number] 1{capsu Take 1 [place] (Senna) 8.6 1-26 le} capsule by Se ybold MG oral 00:00: mouth Capsule 00 daily Sennosides 0 Yes [id number] 1{capsu Take 1 [place] (Senna) 8.6 1-26 le} capsule by Se ybold MG oral 00:00: mouth Capsule 00 daily Metoprolol 2021-0 Yes [id number] 50mg Take 1 K elsey Tartrate 50 1-26 tablet (50 Se ybold MG oral 00:00: mg total) Tablet 00 by mouth 2 times daily Sennosides 0 Yes [id number] 1{capsu Take 1 [place] (Senna) 8.6 1-26 le} capsule by Se ybold MG oral 00:00: mouth Capsule 00 daily Docusate 0 Yes [id number] 100mg Take 100 [place] Sodium 100 1-26 mg by Seybold MG oral 00:00: mouth 2 Tablet 00 times daily Sennosides 0 Yes [id number] 1{capsu Take 1 [place] (Senna) 8.6 1-26 le} capsule by Se ybold MG oral 00:00: mouth Capsule 00 daily Sennosides 0 Yes [id number] 1{capsu Take 1 [place] (Senna) 8.6 1-26 le} capsule by Se ybold MG oral 00:00: mouth - Capsule 00 daily Externa l Sennosides 0 Yes [id number] 1{capsu Take 1 [place] (Senna) 8.6 1-26 le} capsule by Se ybold MG oral 00:00: mouth - Capsule 00 daily Externa l Gabapentin 2021-0 Yes [id number] Ke lsey 800 MG oral 1-24 Seybold Tablet 00:00: 00 Gabapentin 2022-0 Yes [id number] Ke lsey 800 MG oral 1-24 Seybold Tablet 00:00: 00 Gabapentin 2022-0 Yes [id number] Ke lsey 800 MG oral 1-24 Seybold Tablet 00:00: 00 Gabapentin 2022-0 Yes [id number] Ke lsey 800 MG oral 1-24 Seybold Tablet 00:00: 00 Gabapentin 2022-0 Yes [id number] Ke lsey 800 MG oral 1-24 Seybold Tablet 00:00: 00 Gabapentin 2022-0 Yes [id number] Ke lsey 800 MG oral 1-24 Seybold Tablet 00:00: 00 Gabapentin 2022-0 Yes [id number] Ke lsey 800 MG oral 1-24 Seybold Tablet 00:00: 00 Gabapentin 2022-0 Yes [id number] Ke lsey 800 MG oral 1-24 Seybold Tablet 00:00: 00 Gabapentin 2022-0 Yes [id number] Ke lsey 800 MG oral 1-24 Seybold Tablet 00:00: 00 Gabapentin 2022-0 Yes [id number] Ke lsey 800 MG oral 1-24 Seybold Tablet 00:00: 00 Gabapentin 2022-0 2022- No [id number] K elsey 800 MG oral 1-24 11-28 Seybold Tablet 00:00: 00:00 - 00 :00 Externa l Morphine 2022-0 Yes [id number] Wanda ey Sulfate ER 1-15 Seybold 15 MG oral 00:00: Tab CR 00 Morphine 2022-0 Yes [id number] Wanda ey Sulfate ER 1-15 Seybold 15 MG oral 00:00: Tab CR 00 Morphine 2022-0 Yes [id number] Wanda ey Sulfate ER 1-15 Seybold 15 MG oral 00:00: Tab CR 00 Morphine 2022-0 Yes [id number] Wanda ey Sulfate ER 1-15 Seybold 15 MG oral 00:00: Tab CR 00 Morphine 2022-0 Yes [id number] Wanda ey Sulfate ER 1-15 Seybold 15 MG oral 00:00: Tab CR 00 Morphine 2022-0 Yes [id number] Wanda ey Sulfate ER 1-15 Seybold 15 MG oral 00:00: Tab CR 00 Morphine 2022-0 Yes [id number] Wanda ey Sulfate ER 1-15 Seybold 15 MG oral 00:00: Tab CR 00 Morphine 2022-0 Yes [id number] Wanda ey Sulfate ER 1-15 Seybold 15 MG oral 00:00: Tab CR 00 Morphine 2022-0 Yes [id number] Wanda ey Sulfate ER 1-15 Seybold 15 MG oral 00:00: Tab CR 00 Morphine 2022-0 Yes [id number] Wanda ey Sulfate ER 1-15 Seybold 15 MG oral 00:00: Tab CR 00 Morphine 2022-0 Yes [id number] Wanda ey Sulfate ER 1-15 Seybold 15 MG oral 00:00: - Tab CR 00 Externa l Morphine 2-0 Yes [id number] Wanda ey Sulfate ER 1-15 Seybold 15 MG oral 00:00: - Tab CR 00 Externa l Doxepin HCl 2021-0 Yes [id number] Ke lsey 25 MG oral -12 Seybold Capsule 00:00: 00 Doxepin HCl 2021-0 Yes [id number] Ke lsey 25 MG oral 1-12 Seybold Capsule 00:00: 00 Doxepin HCl 2021-0 Yes [id number] Ke lsey 25 MG oral 1-12 Seybold Capsule 00:00: 00 Doxepin HCl 2021-0 2022- No [id number] K elsey 25 MG oral 1-12 -23 Seybold Capsule 00:00: 00:00 00 :00 Lokelma 10 2-0 Yes [id number] Cole sey g oral Pack 1-10 Seybold 00:00: 00 Lokelma 10 2-0 Yes [id number] Cole sey g oral Pack 1-10 Seybold 00:00: 00 Lokelma 10 2-0 Yes [id number] Cole sey g oral Pack 1-10 Seybold 00:00: 00 Lokelma 10 2-0 Yes [id number] Cole sey g oral Pack 1-10 Seybold 00:00: 00 Lokelma 10 2-0 Yes [id number] Cole sey g oral Pack 1-10 Seybold 00:00: 00 Lokelma 10 2-0 Yes [id number] Cole sey g oral Pack 1-10 Seybold 00:00: 00 Lokelma 10 2022-0 Yes [id number] Cole sey g oral Pack 1-10 Seybold 00:00: 00 Lokelma 10 2022-0 Yes [id number] Cole sey g oral Pack 1-10 Seybold 00:00: 00 Lokelma 10 2022-0 Yes [id number] Cole sey g oral Pack 1-10 Seybold 00:00: 00 Lokelma 10 2022-0 Yes [id number] Cole sey g oral Pack 1-10 Seybold 00:00: 00 Sodium 2022-0 2023- No [id number] 650mg Take 650 K elsey Bicarbonate 1-10 01-11 mg by Seybol d 650 MG oral 00:00: 05:59 mouth 3 Tablet 00 :00 times daily Sodium 2021-0 3- No [id number] 650mg Take 650 K elsey Bicarbonate 1-10 01-11 mg by Seybol d 650 MG oral 00:00: 05:59 mouth 3 Tablet 00 :00 times daily Sodium 2021-0 3- No [id number] 650mg Take 650 K elsey Bicarbonate 1-10 01-11 mg by Seybol d 650 MG oral 00:00: 05:59 mouth 3 Tablet 00 :00 times daily Sodium 2021-0 3- No [id number] 650mg Take 650 K elsey Bicarbonate 1-10 01-11 mg by Seybol d 650 MG oral 00:00: 05:59 mouth 3 Tablet 00 :00 times daily Sodium 2021-0 2022- No [id number] 650mg Take 650 K elsey Bicarbonate 1-10 01-11 mg by Seybol d 650 MG oral 00:00: 05:59 mouth 3 Tablet 00 :00 times daily Sodium 2021-0 2022- No [id number] 650mg Take 650 K elsey Bicarbonate 1-10 01-11 mg by Seybol d 650 MG oral 00:00: 05:59 mouth 3 Tablet 00 :00 times daily Sodium 2021-0 3- No [id number] 650mg Take 650 K elsey Bicarbonate 1-10 01-11 mg by Seybol d 650 MG oral 00:00: 05:59 mouth 3 Tablet 00 :00 times daily Sodium 2021-0 3- No [id number] 650mg Take 650 K elsey Bicarbonate 1-10 01-11 mg by Seybol d 650 MG oral 00:00: 05:59 mouth 3 Tablet 00 :00 times daily Sodium 2021-0 3- No [id number] 650mg Take 650 K elsey Bicarbonate 1-10 01-11 mg by Seybol d 650 MG oral 00:00: 05:59 mouth 3 Tablet 00 :00 times daily Sodium 2021-0 2022- No [id number] 650mg Take 650 K elsey Bicarbonate 1-10 01-11 mg by Seybol d 650 MG oral 00:00: 05:59 mouth 3 Tablet 00 :00 times daily Movantik 25 2021-0 Yes [id number] K elsey MG oral 1-05 Seybold Tablet 00:00: 00 Movantik 25 2021-0 Yes [id number] K elsey MG oral 1-05 Seybold Tablet 00:00: 00 Movantik 2021-0 Yes [id number] K elsey MG oral 1-05 Seybold Tablet 00:00: 00 Movantik 2021-0 Yes [id number] K elsey MG oral 1-05 Seybold Tablet 00:00: 00 Movantik 2021-0 Yes [id number] K elsey MG oral 1-05 Seybold Tablet 00:00: 00 Movantik 2021-0 Yes [id number] K elsey MG oral 1-05 Seybold Tablet 00:00: 00 Movantik 2021-0 Yes [id number] K elsey MG oral 1-05 Seybold Tablet 00:00: 00 Movantik 2021-0 Yes [id number] K elsey MG oral 1-05 Seybold Tablet 00:00: 00 Movanti 2021-0 Yes [id number] K elsey MG oral 1-05 Seybold Tablet 00:00: 00 Movantik 2021-0 Yes [id number] K elsey MG oral 1-05 Seybold Tablet 00:00: 00 Ferrous 2020-02 Yes [id number] Kelse y Sulfate 325 2-26 Seybold (65 Fe) MG 00:00: oral Tablet 00 Ferrous 2020-02 Yes [id number] Kelse y Sulfate 325 2-26 Seybold (65 Fe) MG 00:00: oral Tablet 00 Ferrous 2020-02 Yes [id number] Kelse y Sulfate 325 2-26 Seybold (65 Fe) MG 00:00: oral Tablet 00 Ferrous 2020-02 Yes [id number] Kelse y Sulfate 325 2-26 Seybold (65 Fe) MG 00:00: oral Tablet 00 Ferrous 2020-02 Yes [id number] Kelse y Sulfate 325 2-26 Seybold (65 Fe) MG 00:00: oral Tablet 00 Ferrous 2020-02 Yes [id number] Kelse y Sulfate 325 2-26 Seybold (65 Fe) MG 00:00: oral Tablet 00 Ferrous 2020-02 Yes [id number] Kelse y Sulfate 325 2-26 Seybold (65 Fe) MG 00:00: oral Tablet 00 Ferrous 2021-1 Yes [id number] Kelse y Sulfate 325 2-26 Seybold (65 Fe) MG 00:00: oral Tablet 00 Ferrous 202-1 Yes [id number] Kelse y Sulfate 325 2-26 Seybold (65 Fe) MG 00:00: oral Tablet 00 Ferrous 2021-1 Yes [id number] Kelse y Sulfate 325 2-26 Seybold (65 Fe) MG 00:00: oral Tablet 00 [facility] Vitamin 2021-1 Yes [id number] K elsey B12 1000 2-08 Seybold MCG oral 00:00: Tab CR 00 Magnesium 2021-1 Yes [id number] Wanda ey Oxide 420 2-08 Seybold MG oral 00:00: Tablet 00 [facility] Vitamin 2021-1 Yes [id number] K elsey B12 1000 2-08 Seybold MCG oral 00:00: Tab CR 00 Magnesium 2021-1 Yes [id number] Wanda ey Oxide 420 2-08 Seybold MG oral 00:00: Tablet 00 [facility] Vitamin 2021-1 Yes [id number] K elsey B12 1000 2-08 Seybold MCG oral 00:00: Tab CR 00 Magnesium 2021-1 Yes [id number] Wanda ey Oxide 420 2-08 Seybold MG oral 00:00: Tablet 00 [facility] Vitamin 2021-1 Yes [id number] K elsey B12 1000 2-08 Seybold MCG oral 00:00: Tab CR 00 Magnesium 2021-1 Yes [id number] Wanda ey Oxide 420 2-08 Seybold MG oral 00:00: Tablet 00 [facility] Vitamin 2021-1 Yes [id number] K elsey B12 1000 2-08 Seybold MCG oral 00:00: Tab CR 00 Magnesium 2021-1 Yes [id number] Wanda ey Oxide 420 2-08 Seybold MG oral 00:00: Tablet 00 [facility] Vitamin 2021-1 Yes [id number] K elsey B12 1000 2-08 Seybold MCG oral 00:00: Tab CR 00 Magnesium 2021-1 Yes [id number] Wanda ey Oxide 420 2-08 Seybold MG oral 00:00: Tablet 00 [facility] Vitamin 2021-1 Yes [id number] K elsey B12 1000 2-08 Seybold MCG oral 00:00: Tab CR 00 Magnesium 2021-1 Yes [id number] Wanda ey Oxide 420 2-08 Seybold MG oral 00:00: Tablet 00 [facility] Vitamin 2021-1 Yes [id number] K elsey B12 1000 2-08 Seybold MCG oral 00:00: Tab CR 00 [facility] Vitamin 2020- Yes [id number] K elsey B12 1000 2-08 Seybold MCG oral 00:00: Tab CR 00 Magnesium 202-1 Yes [id number] Wanda ey Oxide 420 2-08 Seybold MG oral 00:00: Tablet 00 Magnesium 2020-1 Yes [id number] Wanda ey Oxide 420 2-08 Seybold MG oral 00:00: Tablet 00 [facility] Vitamin 2020- Yes [id number] K elsey B12 1000 2-08 Seybold MCG oral 00:00: Tab CR 00 Magnesium 2020-1 Yes [id number] Wanda ey Oxide 420 2-08 Seybold MG oral 00:00: Tablet 00 [facility] Vitamin 2020- Yes [id number] K elsey B12 1000 2-08 Seybold MCG oral 00:00: - Tab CR 00 Externa l [facility] Vitamin 2020-02 Yes [id number] K elsey B12 1000 2-08 Seybold MCG oral 00:00: - Tab CR 00 Externa l Ascorbic 2020- Yes [id number] 1{tbl} Take 1 [place] Acid 500 MG 1-22 tablet by Sey bold oral Tablet 00:00: mouth 2 00 times daily Ascorbic 2020- Yes [id number] 1{tbl} Take 1 [place] Acid 500 MG 1-22 tablet by Sey bold oral Tablet 00:00: mouth 2 00 times daily Ascorbic 2020- Yes [id number] 1{tbl} Take 1 [place] Acid 500 MG 1-22 tablet by Sey bold oral Tablet 00:00: mouth 2 00 times daily Ascorbic 2020- Yes [id number] 1{tbl} Take 1 [place] Acid 500 MG 1-22 tablet by Sey bold oral Tablet 00:00: mouth 2 00 times daily Ascorbic 2020- Yes [id number] 1{tbl} Take 1 [place] Acid 500 MG 1-22 tablet by Sey bold oral Tablet 00:00: mouth 2 00 times daily Ascorbic 2020- Yes [id number] 1{tbl} Take 1 [place] Acid 500 MG 1-22 tablet by Sey bold oral Tablet 00:00: mouth 2 00 times daily Ascorbic 2020- Yes [id number] 1{tbl} Take 1 [place] Acid 500 MG 1-22 tablet by Sey bold oral Tablet 00:00: mouth 2 00 times daily Ascorbic 2020-02 Yes [id number] 1{tbl} Take 1 [place] Acid 500 MG 1-22 tablet by Sey bold oral Tablet 00:00: mouth 2 00 times daily Ascorbic 2020-02 Yes [id number] 1{tbl} Take 1 [place] Acid 500 MG 1-22 tablet by Sey bold oral Tablet 00:00: mouth 2 00 times daily Ascorbic 2020-02 Yes [id number] 1{tbl} Take 1 [place] Acid 500 MG 1-22 tablet by Sey bold oral Tablet 00:00: mouth 2 00 times daily Amlodipine 0 2021- No [id number] 5mg Take 5 mg [place] Besylate 5 -02 09- by mouth Seyb old MG oral 00:00: 04:59 daily Tablet 00 :00 Amlodipine 2020-0 2021- No [id number] 5mg Take 5 mg [place] Besylate 5 -02 09- by mouth Seyb old MG oral 00:00: 04:59 daily Tablet 00 :00 Amlodipine 2020-0 2021- No [id number] 5mg Take 5 mg [place] Besylate 5 -02 09- by mouth Seyb old MG oral 00:00: 04:59 daily Tablet 00 :00 Amlodipine 2020-0 2021- No [id number] 5mg Take 5 mg Cheyenne Besylate 5 7-02 09- by mouth Seyb old MG oral 00:00: 04:59 daily Tablet 00 :00 Amlodipine 2020-0 2021- No [id number] 5mg Take 5 mg Cheyenne Besylate 5 -02 09- by mouth Seyb old MG oral 00:00: 04:59 daily Tablet 00 :00 Amlodipine 2020-0 2021- No [id number] 5mg Take 5 mg Cheyenne Besylate 5 - 03-29 by mouth Seyb old MG oral 00:00: 00:00 daily Tablet 00 :00 gabapentin 2020-0 Yes 800mg Take 800 Un luz marina 800 mg 5-17 mg by ity of tablet 00:00: mouth [place] 00 every 6 [facility] ([facility] hours. [...] Name Name Influenza Virus 2021-12-01 Completed Cheyenne roseold - Vaccine, age 6 months 00:00:00 Ext ernal and up Influenza Virus 2021-12-01 Completed Cheyenne roseold - Vaccine, age 6 months 00:00:00 Ext ernal and up Covid-19 Vaccine 2021-01-10 Completed Cheyenne romeo (Poly Adaptive), Mrna-lnp, 00:00:00 Noam Protein, Pf, 30mcg/0.3ml,IM Covid-19 Vaccine 2021-01-10 Completed Cheyenne romeo (Poly Adaptive), Mrna-lnp, 00:00:00 Noam Protein, Pf, 30mcg/0.3ml,IM Covid-19 Vaccine 2021-01-10 Completed Cheyenne romeo (Poly Adaptive), Mrna-lnp, 00:00:00 Noam Protein, Pf, 30mcg/0.3ml,IM Covid-19 Vaccine 2021-01-10 Completed Cheyenne romeo (Poly Adaptive), Mrna-lnp, 00:00:00 Noam Protein, Pf, 30mcg/0.3ml,IM Covid-19 Vaccine 2021-01-10 Completed Cheyenne S eybold ([facility]), Mrna-lnp, 00:00:00 Noam Protein, Pf, 30mcg/0.3ml,IM Covid-19 Vaccine 2021-01-10 Completed Cheyenne S eybold (Pfizer), Mrna-lnp, 00:00:00 Noam Protein, Pf, 30mcg/0.3ml,IM Covid-19 Vaccine 2021-01-10 Completed Cheyenne S eybold (Pfizer), Mrna-lnp, 00:00:00 Noam Protein, Pf, 30mcg/0.3ml,IM Covid-19 Vaccine 2021-01-10 Completed Cheyenne S eybold ([facility]), Mrna-lnp, 00:00:00 Noam Protein, Pf, 30mcg/0.3ml,IM Covid-19 Vaccine 2021-01-10 Completed Cheyenne S eybold ([facility]), Mrna-lnp, 00:00:00 Noam Protein, Pf, 30mcg/0.3ml,IM Covid-19 Vaccine 2021-01-10 Completed Cheyenne S eybold (Pfizer), Mrna-lnp, 00:00:00 Noam Protein, Pf, 30mcg/0.3ml,IM Covid-19 Vaccine 2021-01-10 Completed Cheyenne S eybold ([facility]), Mrna-lnp, 00:00:00 Noam Protein, Pf, 30mcg/0.3ml,IM [...] nal Noam Protein, Pf, 30mcg/0.3ml,IM SARS-COV-2 COVID-19 2021-01-10 Completed Unive rsity of PFIZER VACCINE 00:00:00 [facility] SARS-COV-2 COVID-19 2021-01-10 Completed Unive rsity of PFIZER VACCINE 00:00:00 [facility] SARS-COV-2 COVID-19 2021-01-10 Completed Unive rsity of PFIZER VACCINE 00:00:00 [facility] SARS-COV-2 COVID-19 2021-01-10 Completed Unive rsity of PFIZER VACCINE 00:00:00 [facility] SARS-COV-2 COVID-19 2021-01-10 Completed Unive rsity of PFIZER VACCINE 00:00:00 [facility] SARS-COV-2 COVID-19 2021-01-10 Completed Unive rsity of PFIZER VACCINE 00:00:00 [facility] SARS-COV-2 COVID-19 2021-01-10 Completed Unive rsity of PFIZER VACCINE 00:00:00 [facility] SARS-COV-2 COVID-19 2021-01-10 Completed Unive rsity of PFIZER VACCINE 00:00:00 [facility] Covid-19 Vaccine 2020-04-27 Completed Cheyenne S eybold (Pfizer), Mrna-lnp, 00:00:00 Noam Protein, Pf, 30mcg/0.3ml,IM Covid-19 Vaccine 2020-04-27 Completed Cheyenne S eybold (Pfizer), Mrna-lnp, 00:00:00 Noam Protein, Pf, 30mcg/0.3ml,IM Covid-19 Vaccine 2020-04-27 Completed Cheyenne S eybold (Pfizer), Mrna-lnp, 00:00:00 Noam Protein, Pf, 30mcg/0.3ml,IM Covid-19 Vaccine 2020-04-27 Completed Cheyenne S eybold (Pfizer), Mrna-lnp, 00:00:00 [place] Protein, Pf, 30mcg/0.3ml,IM Covid-19 Vaccine 2020-04-27 Completed Cheyenne S eybold (Pfizer), Mrna-lnp, 00:00:00 Noam Protein, Pf, 30mcg/0.3ml,IM Covid-19 Vaccine 2020-04-27 Completed Cheyenne S eybold (Pfizer), Mrna-lnp, 00:00:00 Noam Protein, Pf, 30mcg/0.3ml,IM Covid-19 Vaccine 2020-04-27 Completed Cheyenne S eybold (Pfizer), Mrna-lnp, 00:00:00 Noam Protein, Pf, 30mcg/0.3ml,IM Covid-19 Vaccine 2020-04-27 Completed Cheyenne S eybold ([facility]), Mrna-lnp, 00:00:00 Noam Protein, Pf, 30mcg/0.3ml,IM Covid-19 Vaccine 2020-04-27 Completed Cheyenne S eybold ([facility]), Mrna-lnp, 00:00:00 Noam Protein, Pf, 30mcg/0.3ml,IM Covid-19 Vaccine 2020-04-27 Completed Cheyenne S eybold ([facility]), Mrna-lnp, 00:00:00 Noam Protein, Pf, 30mcg/0.3ml,IM Covid-19 Vaccine 2020-04-27 Completed Cheyenne S eybold ([facility]), Mrna-lnp, 00:00:00 Noam Protein, Pf, 30mcg/0.3ml,IM Covid-19 Vaccine 2020-04-27 Completed Cheyenne S eybold ([facility]), Mrna-lnp, 00:00:00 Noam Protein, Pf, 30mcg/0.3ml,IM Covid-19 Vaccine 2020-04-27 Completed Cheyenne S eybold ([facility]), Mrna-lnp, 00:00:00 Noam Protein, Pf, 30mcg/0.3ml,IM Covid-19 Vaccine 2020-04-27 Completed Cheyenne S eybold ([facility]), Mrna-lnp, 00:00:00 Noam Protein, Pf, 30mcg/0.3ml,IM Covid-19 Vaccine 2020-04-27 Completed Cheyenne S eybold ([facility]), Mrna-lnp, 00:00:00 Noam Protein, Pf, 30mcg/0.3ml,IM Covid-19 Vaccine 2020-04-27 Completed Cheyenne S eybold ([facility]), Mrna-lnp, 00:00:00 Noam Protein, Pf, 30mcg/0.3ml,IM Covid-19 Vaccine 2020-04-27 Completed Cheyenne S eybold ([facility]), Mrna-lnp, 00:00:00 Noam Protein, Pf, 30mcg/0.3ml,IM Covid-19 Vaccine 2020-04-27 Completed Cheyenne S eybold ([facility]), Mrna-lnp, 00:00:00 Noam Protein, Pf, 30mcg/0.3ml,IM Covid-19 Vaccine 2020-04-27 Completed Cheyenne S eybold (Pfizer), Mrna-lnp, 00:00:00 Noam Protein, Pf, 30mcg/0.3ml,IM Covid-19 Vaccine 2020-04-27 Completed Cheyenne S eybold - (Pfizer), Mrna-lnp, 00:00:00 Exter nal Noam Protein, Pf, 30mcg/0.3ml,IM Covid-19 Vaccine 2020-04-27 Completed Cheyenne S eybold - (Pfizer), Mrna-lnp, 00:00:00 Exter nal Noam Protein, Pf, 30mcg/0.3ml,IM Covid-19 Vaccine 2020-04-27 Completed Cheyenne S eybold - (Pfizer), Mrna-lnp, 00:00:00 Exter nal Noam Protein, Pf, 30mcg/0.3ml,IM Covid-19 Vaccine 2020-04-27 Completed Cheyenne Uriarte eybold - (Pfizer), Mrna-lnp, 00:00:00 Exter nal Noam Protein, Pf, 30mcg/0.3ml,IM SARS-COV-2 COVID-19 2020-04-27 Completed Unive rsity of PFIZER VACCINE 00:00:00 [facility] SARS-COV-2 COVID-19 2020-04-27 Completed Unive rsity of PFIZER VACCINE 00:00:00 [facility] SARS-COV-2 COVID-19 2020-04-27 Completed Unive rsity of PFIZER VACCINE 00:00:00 [facility] SARS-COV-2 COVID-19 2020-04-27 Completed Unive rsity of PFIZER VACCINE 00:00:00 [facility] SARS-COV-2 COVID-19 2020-04-27 Completed Unive rsity of PFIZER VACCINE 00:00:00 [facility] SARS-COV-2 COVID-19 2020-04-27 Completed Unive rsity of PFIZER VACCINE 00:00:00 [facility] SARS-COV-2 COVID-19 2020-04-27 Completed Unive rsity of PFIZER VACCINE 00:00:00 [facility] SARS-COV-2 COVID-19 2020-04-27 Completed Unive rsity of PFIZER VACCINE 00:00:00 [facility] Covid-19 Vaccine 2020-04-06 Completed Cheyenne Uriarte eybold [...] Covid-19 Vaccine 2020-04-06 Completed Cheyenne S eybold ([facility]), Mrna-lnp, 00:00:00 Noam Protein, Pf, 30mcg/0.3ml,IM Covid-19 Vaccine 2020-04-06 Completed Cheyenne S eybold (Pfizer), Mrna-lnp, 00:00:00 Noam Protein, Pf, 30mcg/0.3ml,IM Covid-19 Vaccine 2020-04-06 Completed Cheyenne S eybold (Pfizer), Mrna-lnp, 00:00:00 Noam Protein, Pf, 30mcg/0.3ml,IM Covid-19 Vaccine 2020-04-06 Completed Cheyenne S eybold (Poly Adaptive), Mrna-lnp, 00:00:00 Noam Protein, Pf, 30mcg/0.3ml,IM Covid-19 Vaccine 2020-04-06 Completed Cheyenne S eybold ([facility]), Mrna-lnp, 00:00:00 Noam Protein, Pf, 30mcg/0.3ml,IM Covid-19 Vaccine 2020-04-06 Completed Cheyenne S eybold ([facility]), Mrna-lnp, 00:00:00 Noam Protein, Pf, 30mcg/0.3ml,IM Covid-19 Vaccine 2020-04-06 Completed Cheyenne S eybold ([facility]), Mrna-lnp, 00:00:00 Noam Protein, Pf, 30mcg/0.3ml,IM Covid-19 Vaccine 2020-04-06 Completed Cheyenne S eybold (Pfizer), Mrna-lnp, 00:00:00 Noam Protein, Pf, 30mcg/0.3ml,IM Covid-19 Vaccine 2020-04-06 Completed Cheyenne S eybold ([facility]), Mrna-lnp, 00:00:00 Noam Protein, Pf, 30mcg/0.3ml,IM Covid-19 Vaccine 2020-04-06 Completed Cheyenne S eybold - ([facility]), Mrna-lnp, 00:00:00 Exter nal Noam Protein, Pf, 30mcg/0.3ml,IM Covid-19 Vaccine 2020-04-06 Completed Cheyenne S eybold - (Pfizer), Mrna-lnp, 00:00:00 Exter nal Noam Protein, Pf, 30mcg/0.3ml,IM Covid-19 Vaccine 2020-04-06 Completed Cheyenne bloodbold - (Pfizer), Mrna-lnp, 00:00:00 Exter nal Noam Protein, Pf, 30mcg/0.3ml,IM Covid-19 Vaccine 2020-04-06 Completed Cheyenne Uriarte eybold - (Pfizer), Mrna-lnp, 00:00:00 Exter nal Noam Protein, Pf, 30mcg/0.3ml,IM SARS-COV-2 COVID-19 2020-04-06 Completed Unive rsity of PFIZER VACCINE 00:00:00 [facility] SARS-COV-2 COVID-19 2020-04-06 Completed Unive rsity of PFIZER VACCINE 00:00:00 [facility] SARS-COV-2 COVID-19 2020-04-06 Completed Unive rsity of PFIZER VACCINE 00:00:00 [facility] SARS-COV-2 COVID-19 2020-04-06 Completed Unive rsity of PFIZER VACCINE 00:00:00 [facility] SARS-COV-2 COVID-19 2020-04-06 Completed Unive rsity of PFIZER VACCINE 00:00:00 [facility] SARS-COV-2 COVID-19 2020-04-06 Completed Unive rsity of PFIZER VACCINE 00:00:00 [facility] SARS-COV-2 COVID-19 2020-04-06 Completed Unive rsity of PFIZER VACCINE 00:00:00 [facility] SARS-COV-2 COVID-19 2020-04-06 Completed Unive rsity of PFIZER VACCINE 00:00:00 [facility] Influenza, Seasonal, 2018-11-01 Completed Wanda ey Seybold [...] - Vaccine, Unspecified 00:00:00 Exte rnal Formulation Influenza, Seasonal, 2018-11-01 Completed Wanda ey Seybold - Injectable 00:00:00 External Influenza Virus 2018-11-01 Completed Cheyenne Se ybold - Vaccine, Unspecified 00:00:00 Exte rnal Formulation Influenza Virus 2018-11-01 Completed Universit [facility] of Vaccine (3+ yrs) 00:00:00 [facility] Influenza Virus 2018-11-01 Completed Universit y of Vaccine 00:00:00 [facility] Influenza Virus 2018-11-01 Completed Universit y of Vaccine (3+ yrs) 00:00:00 [facility] Influenza Virus 2018-11-01 Completed Universit y of Vaccine 00:00:00 [facility] Influenza Virus 2018-11-01 Completed Universit y of Vaccine (3+ yrs) 00:00:00 [facility] Influenza Virus 2018-11-01 Completed Universit y of Vaccine 00:00:00 [facility] Influenza Virus 2018-11-01 Completed Universit y of Vaccine (3+ yrs) 00:00:00 [facility] Influenza Virus 2018-11-01 Completed Universit y of Vaccine 00:00:00 [facility] Influenza Virus 2018-11-01 Completed Universit y of Vaccine (3+ yrs) 00:00:00 [facility] Influenza Virus 2018-11-01 Completed Universit y of Vaccine 00:00:00 [facility] Influenza Virus 2018-11-01 Completed Universit y of Vaccine (3+ yrs) 00:00:00 [facility] Influenza Virus 2018-11-01 Completed Universit y of Vaccine 00:00:00 [facility] Influenza Virus 2018-11-01 Completed Universit y of Vaccine (3+ yrs) 00:00:00 [facility] Influenza Virus 2018-11-01 Completed Universit y of Vaccine 00:00:00 [facility] Influenza Virus 2018-11-01 Completed Universit y of Vaccine (3+ yrs) 00:00:00 [facility] Influenza Virus 2018-11-01 Completed Universit y of Vaccine 00:00:00 [facility] Pneumococcal Vaccine, 2018-09-08 Completed Cole sey Seybold [...] Polysaccharide 00:00:00 Pneumococcal Vaccine, 2018-09-08 Completed Cole sorenseny Seybold - Polysaccharide 00:00:00 External Pneumococcal Vaccine, 2018-09-08 Completed Cole sorenseny Seybold - Polysaccharide 00:00:00 External Pneumococcal 2018-09-08 [...] Time Observation Value Comments Source Systolic blood 2022-01-13 19:50:00 142 mm[Hg] Cheyenne Grimesold - pressure External Diastolic blood 2022-01-13 19:50:00 80 mm[Hg] Quan robles Seybold - pressure External Heart rate 2022-01-13 19:50:00 84 /min Cheyenne romeo - External Body temperature 2022-01-13 19:50:00 36.44 Carlyn Wanda blood Seybold - External Respiratory rate 2022-01-13 19:50:00 14 /min Wanda Brady - External Body height 2022-01-13 19:50:00 188 cm Cheyenne romeo - External Body weight 2022-01-13 19:50:00 122.018 kg Cheyenne S eybold - External BMI 2022-01-13 19:50:00 34.54 kg/m2 Cheyenne Uriarte eybold - External Oxygen saturation in 2022-01-13 19:50:00 99 /min Cheyenne Brady - Arterial blood by External Pulse oximetry Systolic blood 2022-01-05 16:43:00 110 mm[Hg] Cheyenne Seybold - pressure External Diastolic blood 2022-01-05 16:43:00 68 mm[Hg] Colese y Seybold - pressure External Heart rate 2022-01-05 16:43:00 72 /min Cheyenne Uriarte eybold - External Body temperature 2022-01-05 16:43:00 35.39 Carlyn Wanda ey Seybold - External Respiratory rate 2022-01-05 16:43:00 16 /min Wanda blood Seybold - External Body height 2022-01-05 16:43:00 188 cm Cheyenne Uriarte eybold - External Body weight 2022-01-05 16:43:00 116.574 kg Cheyenne Uriarte eybold - External BMI 2022-01-05 16:43:00 33.00 kg/m2 Cheyenne Uriarte eybold - External Body weight 2021-10-08 14:40:00 120.203 kg [facility] BMI 2021-10-08 14:40:00 34.02 kg/m2 [facility] Systolic blood 2021-06-25 16:08:00 140 mm[Hg] Cheyenne Seybold pressure Diastolic blood 2021-06-25 16:08:00 85 mm[Hg] Colese y Seybold pressure Heart rate 2021-06-25 16:08:00 [...] Seybold Body height 2021-05-23 16:35:00 188 cm Cheyenen S eybold Body weight 2021-05-23 16:35:00 121.11 [...] Body weight 2021-04-02 16:06:00 122.471 kg Cheyenne romeo BMI 2021-04-02 16:06:00 34.67 kg/m2 Cheyenne bloodboicnthia Systolic blood 2021-03-05 16:16:00 164 mm[Hg] Cheyenne ybold pressure Diastolic blood 2021-03-05 16:16:00 86 mm[Hg] Kelse y Seybold pressure Heart rate 2021-03-05 16:16:00 106 /min Cheyenne romeo Body temperature 2021-03-05 16:16:00 35.67 Carlyn Wanda blood Seybold Respiratory rate 2021-03-05 16:16:00 12 /min Wanda ey Seybold Body height 2021-03-05 16:16:00 188 cm Cheyenne romeo Body weight 2021-03-05 16:16:00 118.842 kg Cheyenne romeo BMI 2021-03-05 16:16:00 33.64 kg/m2 Cheyenne romeo Procedures Procedure Date / Time Performing Clinician Source Performed AUTHORIZATION FOR 2022-01-28 06:01:00 Doctor Unassigned, No [facility] RELEASE OF PHI Name [facility] OPHTHALMOLOGY DIAGNOSTIC 2021-12-02 05:01:00 Doctor Unassigned, No [facility] TEST Name [facility] OU CORNEAL TOPOGRAPHY, 2021-12-02 00:00:00 Micah Serrano [facility] BOTH EYES [facility] FUNGUS CULTURE 2021-06-26 02:23:00 Neftali Parker [facility] SHOULDER 3 VIEW RIGHT 2021-05-16 16:50:00 Ryder Nathan Seybold (ORTHO) KNEE ROUTINE 40 YEARS 2021-05-16 16:20:08 Ryder Nathan AND OLDER RIGHT HIPS BILATERAL 2021-04-07 16:58:39 Dianna Johnson ld LUMBAR SPINE 2 VIEWS 2021-04-07 16:54:49 Dianna Johnson LUMBAR SPINE 2021-04-07 16:45:43 Dianna Johnson FLEX/EXTENSION ONLY CERVICAL SPINE - 2 VIEW 2021-04-07 16:44:19 JohnsonDianna Wanda Brady URINALYSIS, ROUTINE 2021-04-02 17:46:00 Caroline Vallebocinthia MICROSCOPIC EXAMINATION 2021-04-02 17:46:00 Caroline Valle PHOSPHORUS, SERUM 2021-04-02 17:27:00 Caroline Valle MAGNESIUM, SERUM 2021-04-02 17:27:00 Caroline Valle COMP. METABOLIC PANEL 2021-04-02 17:27:00 Caroline Valle (14) Plan of Care Planned Activity Planned Date Details Comments Source Future Scheduled 2022-01-21 COLONOSCOPY SCREENING Formerly [facility] Test 05:11:07 [code = COLONOSCOPY SCREENING] Future Scheduled 2022-01-21 COVID-19 VACCINE (4 - [facility] Test 05:11:07 Booster for Pfizer series) [code = COVID-19 VACCINE (4 - Booster for Pfizer series)] Future Scheduled 2022-01-21 INFLUENZA VACCINE Method [facility] Test 05:11:07 [code = INFLUENZA VACCINE] Future Scheduled 2021-12-10 COLONOSCOPY SCREENING Formerly [facility] Test 05:45:32 [code = COLONOSCOPY SCREENING] Future Scheduled 2021-12-10 COVID-19 VACCINE (4 - [facility] Test 05:45:32 Booster for Pfizer series) [code = COVID-19 VACCINE (4 - Booster for Pfizer series)] Future Scheduled 2021-12-10 INFLUENZA VACCINE Method [facility] Test 05:45:32 [code = INFLUENZA VACCINE] Future Scheduled 2021-12-10 HEPATITIS B VACCINES Met [facility] Test 05:45:32 (1 of 3 - 3-dose series) [code = HEPATITIS B VACCINES (1 of 3 - 3-dose series)] Future Scheduled 2021-12-10 COLONOSCOPY SCREENING Formerly [facility] Test 05:45:32 [code = COLONOSCOPY SCREENING] Future Scheduled 2021-12-10 COVID-19 VACCINE (4 - [facility] Test 05:45:32 Booster for Pfizer series) [code = COVID-19 VACCINE (4 - Booster for Pfizer series)] Future Scheduled 2021-12-10 INFLUENZA VACCINE Method [facility] Test 05:45:32 [code = INFLUENZA VACCINE] Future Scheduled 2021-12-10 HEPATITIS B VACCINES Met [facility] Test 05:45:32 (1 of 3 - 3-dose series) [code = HEPATITIS B VACCINES (1 of 3 - 3-dose series)] Future Scheduled 2021-10-29 INFLUENZA VACCINE Method [facility] Test 05:44:13 [code = INFLUENZA VACCINE] Future Scheduled 2021-10-29 HEPATITIS B VACCINES Met [facility] Test 05:44:13 (1 of 3 - 3-dose series) [code = HEPATITIS B VACCINES (1 of 3 - 3-dose series)] Future Scheduled 2021-10-29 COLONOSCOPY SCREENING Formerly [facility] Test 05:44:13 [code = COLONOSCOPY SCREENING] Future Scheduled 2021-10-29 COVID-19 VACCINE (4 - [facility] Test 05:44:13 Booster for Pfizer series) [code = COVID-19 VACCINE (4 - Booster for Pfizer series)] Encounters Start End Encounter Admission Attending Care Care Encounter Source Date/Time Date/Time Type Type Clinicians Facility Department ID 2022-03-03 2022-03-03 Outpatient CHEYENNE ALCALA [id number] Cheyenne 08:40:00 08:40:00 EMIGDIO Seybol d 2022-02-18 2022-02-18 Outpatient CHEYENNE BEDOYA [id number] [place]yenne 09:00:00 09:00:00 AHMED Seybol d 2022-02-12 2022-02-12 Outpatient CHEYENNE VALLE [id number] [place] 00:00:00 00:00:00 CAROLINE Seybol d 2022-02-11 2022-02-11 Outpatient CHEYENNE VALLE [id number] Cheyenne 00:00:00 00:00:00 CAROLINE Seybol d 2022-02-11 2022-02-11 Outpatient CHEYENNE VALLE [id number] Cheyenne 00:00:00 00:00:00 CAROLINE Seybol d 2022-02-11 2022-02-11 Outpatient CHEYENNE VALLE [id number] [place]yenne 00:00:00 00:00:00 CAROLINE Seybol d 2022-02-10 2022-02-10 Outpatient SURENDRA SANDOVAL [id number] [place] 08:00:00 08:00:00 Seybol d 2022-02-10 2022-02-10 Outpatient LAB90 CHEYENNE DIAZ [id number] [place] 07:55:00 07:55:00 Seybol d 2022-02-10 2022-02-10 Outpatient LEONARD CHEYENNE CHEYENNE [id number] Cheyenne 00:00:00 00:00:00 CAROLINE Seybol d 2022-02-06 2022-02-06 Outpatient LAB90 CHEYENNE DIAZ [id number] Cheyenne 08:05:00 08:05:00 Seybol d 2022-02-03 2022-02-03 Outpatient SURENDRA SANDOVAL [id number] [place]enne 08:30:00 08:30:00 Seybol d 2022-02-03 2022-02-03 Outpatient LAB90 CHEYENNE DIAZ [id number] [place] 08:00:00 08:00:00 Seybol d 2022-02-03 2022-02-03 Outpatient CHEYENNE CROOKS [id number] Cheyenne 00:00:00 00:00:00 GWENDOLYN Seybol d 2022-02-03 2022-02-03 Outpatient LEONARD CHEYENNE DIAZ [id number] Cheyenne 00:00:00 00:00:00 CAROLINE Seybol d 2022-01-30 2022-01-30 Outpatient LAB90 CHEYENNE DIAZ [id number] Cheyenne 08:10:00 08:10:00 Seybol d 2022-01-28 2022-01-28 Orders Doctor MAYA [id number] Univers 00:00:00 00:00:00 Only Unassigned, BA [id number] ity of [place] [facility] [id number] Sukhjinder as [id number] [place] [id number] [place] 2022-01-27 2022-01-27 Outpatient CHEYENNE CROOKS [id number] Cheyenne 00:00:00 00:00:00 GWENDOLYN Seybol d 2022-01-26 2022-01-26 Outpatient JAIME SURENDRA DIAZ [id number] [place]yenne 08:45:00 08:45:00 Seybol d 2022-01-26 2022-01-26 Outpatient LAB90 CHEYENNE DIAZ [id number] [place]enne 08:00:00 08:00:00 Seybol d 2022-01-26 2022-01-26 Outpatient THIAGOL, CHEYENNE DIAZ [id number] Cheyenne 00:00:00 00:00:00 CAROLINE Seybol d 2022-01-23 2022-01-23 Outpatient HUNDL, CHEYENNE DIAZ [id number] Cheyenne 00:00:00 00:00:00 CAROLINE Seybol d 2022-01-21 2022-01-21 Outpatient PREZAS, CHEYENNE DIAZ [id number] Cheyenne 00:00:00 00:00:00 GWENDOLYN Seybol d 2022-01-20 2022-01-20 Outpatient R NIDIA, [facility] [id number] Univers 13:15:00 13:15:00 [facility] 2022-01-20 2022-01-20 Outpatient LAB90 CHEYENNE DIAZ [id number] Cheyenne 07:50:00 07:50:00 Seybol d 2022-01-19 2022-01-19 Outpatient HUNDL, CHEYENNE DIAZ [id number] Che[place]enne 00:00:00 00:00:00 CAROLINE Seybol d 2022-01-17 2022-01-17 Outpatient LAB47 CHEYENNE DIAZ [id number] [place] 08:50:00 08:50:00 Seybol d 2022-01-15 2022-01-15 Outpatient THIAGOL, CHEYENNE DIAZ [id number] [place]enne 00:00:00 00:00:00 CAROLINE Seybol d 2022-01-15 2022-01-15 Outpatient HUNDL, CHEYENNE DIAZ [id number] [place] 00:00:00 00:00:00 CAROLINE Seybol d 2022-01-14 2022-01-14 Outpatient LAB90 CHEYENNE DIAZ [id number] [place] 10:00:00 10:00:00 Seybol d 2022-01-14 2022-01-14 Outpatient JAIME, SERRANO CHEYENNE DIAZ [id number] Che[place] 09:30:00 09:30:00 Seybol d 2022-01-14 2022-01-14 Outpatient DIEGO LORENZO CHEYENNE DIAZ [id number] Cheyenne 00:00:00 00:00:00 Seybol d 2022-01-13 2022-01-13 Outpatient LAB90 CHEYENNE DIAZ [id number] [place] 14:45:00 14:45:00 Seybol d 2022-01-13 2022-01-13 Outpatient LEONARD CHEYENNE DIAZ [id number] [place] 14:00:00 14:00:00 CAROLINE Seybol d 2022-01-13 2022-01-13 Outpatient LEONARD CHEYENNE DIAZ [id number] [place] 13:30:00 13:30:00 CAROLINE Seybol d 2022-01-13 2022-01-13 Outpatient LEONARD [place] DIAZ [id number] [place] 00:00:00 00:00:00 CAROLINE Seybol d 2022-01-13 2022-01-13 [facility] [id number] [place] [address] 00:00:00 00:00:00 [facility] [id number] it y of EYE [id number] [facility] [id number] [address] 2022-01-12 2022-01-12 Outpatient LEONARD [place] DIAZ [id number] [place] 00:00:00 00:00:00 CAROLINE Seybol d 2022-01-11 2022-01-11 Outpatient CHEYENNE VALLE [id number] [place] 00:00:00 00:00:00 CAROLINE Seybol d 2022-01-07 2022-01-07 Outpatient CHEYENNE BEDOYA [id number] [place] 10:00:00 10:00:00 AHMED Seybol d 2022-01-05 2022-01-05 Outpatient [place]NE VALLE [id number] [place] 10:30:00 10:30:00 CAROLINE Seybol d 2021-12-24 2021-12-24 Outpatient Tawana SAMS [facility] [id number] Univers 10:00:00 10:00:00 ED lundy [facility] 2021-12-03 2021-12-03 Outpatient LEONARD [place]IAZ [id number] [place] 09:00:00 09:00:00 CAROLINE Seybol d 2021-12-02 2021-12-02 Outpatient R NIDIA [facility] [id number] Univers 09:00:00 09:47:08 HUMAIR [facility]y of [facility] 2021-12-02 2021-12-02 Office Nidia [facility] [id number] Univers 09:00:00 09:47:08 Visit [facility] [id number] it y of EYE [id number] [facility] [place] [id number] [address] 2021-12-02 2021-12-02 Outpatient CHEYENNE VALLE [id number] [place] 00:00:00 00:00:00 CAROLINE Seybol d 2021-12-02 2021-12-02 Orders Doctor MAYA [id number] Univers 00:00:00 00:00:00 Only Unassigned, BA 350.1.13.10 ity of [place] [facility] 4.2.7.2.686 Sukhjinder as [phone] [address] 2021-12-01 2021-12-01 Outpatient LAB90 CHEYENNE DIAZ [id number] [place] 09:45:00 09:45:00 Seybol d 2021-12-01 2021-12-01 Outpatient CHEYENNE VALLE [id number] [place] 09:00:00 09:00:00 CAROLINE Seybol d 2021-11-25 2021-11-25 Outpatient CHEYENNE VALEL [id number] [place] 09:00:00 09:00:00 CAROLINE Seybol d 2021-11-13 2021-11-13 Refkimo Jacob [facility] 1.2.840.114 [id number] Univers 00:00:00 00:00:00 [facility] 350.1.13.10 it y of EYE 4.2.7.2.686 [facility] [place] [id number] [address] 2021-10-21 2021-10-21 [facility] 1.2.840.114 [id number] Univers 00:00:00 00:00:00 [employer]air HEALTH 350.1.13.10 it y of EYE 4.2.7.2.686 [facility] [phone] [address] 2021-10-15 2021-10-15 Outpatient AOSM AOSM [id number] [place] 00:00:00 00:00:00 [id number] Orthop e dic Sports Medicin e 2021-10-08 2021-10-08 [facility] [id number] Univers 09:30:00 10:36:53 HUMAIR ity [facility] 2021-10-08 2021-10-08 [facility] 1.2.840.114 [id number] Univers 09:30:00 10:36:53 Visit [facility] 350.1.13.10 it y of EYE 4.2.7.2.686 [facility] [phone] [address] 2021-10-08 2021-10-08 [facility] [id number] Univers 09:30:00 10:36:53 HUMAIR ity [facility] 2021-10-08 2021-10-08 [facility] [id number] Univers 09:30:00 09:30:00 HUMAIR ity [facility] 2021-10-08 2021-10-08 Outpatient CHEYENNE BEDOYA [id number] [place] 08:00:00 08:00:00 MIRA Grimesol d 2021-10-08 2021-10-08 Orders Doctor MAYA 1.2.840.114 [id number] Univers 00:00:00 00:00:00 Only Unassigned, BA 350.1.13.10 ity of [place] [facility] 4.2.7.2.686 [facility] [phone] [address] 2021-10-03 2021-10-03 Outpatient LAB90 CHEYENNE DIAZ [id number] [place] 10:35:00 10:35:00 Seybol d 2021-09-30 2021-09-30 Refill [facility] 1.2.840.114 [id number] Univers 00:00:00 00:00:00 Humair HEALTH 350.1.13.10 it y of EYE 4.2.7.2.686 [facility] [phone] [facility] [address] 2021-09-25 2021-09-25 Outpatient LAB90 CHEYENNE DIAZ [id number] [place] 09:50:00 09:50:00 Seybol d 2021-09-25 2021-09-25 Office Surendra Gusman 1.2.840.114 [id number] [place] 09:00:00 09:15:00 Visit Evie He 350.1.13.13 Se kristen [place] 1.2.7.2.686 [id number] 2021-09-25 2021-09-25 Outpatient CHEYENNE GUSMAN [id number] [place] 00:00:00 00:00:00 EVIE Sorensenybol d 2021-09-24 2021-09-24 [facility] [id number] Univers 13:30:00 14:26:29 HUMAIR ity of [facility] 2021-09-24 2021-09-24 Office [facility] 1.2.840.114 [id number] Univers 13:30:00 14:26:29 Visit [facility] 350.1.13.10 it y of EYE 4.2.7.2.686 [facility] [phone] [facility] [address] 2021-09-22 2021-09-22 Outpatient CHEYENNE VALLE [id number] [place] 10:00:00 10:00:00 CAROLINE Seybol d 2021-09-22 2021-09-22 Orders Doctor MAYA 1.2.840.114 [id number] Univers 00:00:00 00:00:00 Only Unassigned, BA 350.1.13.10 ity of [place] [facility] 4.2.7.2.686 Sukhjinder [phone] [facility] [address] 2021-09-17 2021-09-17 Outpatient LAB90 CHEYENNE DIAZ [id number] [place] 09:45:00 09:45:00 Seybol d 2021-09-17 2021-09-17 Office Surendra Gusman 1.2.840.114 [id number] [place] 09:00:00 09:30:00 Visit Evie He 350.1.13.13 Se kristen [place] 1.2.7.2.686 [id number] 0 2021-09-11 2021-09-11 Outpatient CHEYENNE VALLE [id number] [place] 00:00:00 00:00:00 CAROLINE almaraz 2021-09-05 2021-09-05 [facility] [id number] Univers 13:30:00 14:26:19 HUMAIR ity [facility] 2021-09-05 2021-09-05 [facility] 1.2.840.114 [id number] Univers 13:30:00 14:26:19 Visit [facility] 350.1.13.10 it y of EYE 4.2.7.2.686 [facility] [id number] [facility] [address] 2021-09-05 2021-09-05 [facility] [id number] Univers 13:30:00 13:30:00 HUMAIR ity [facility] 2021-08-27 2021-08-27 Patient [facility] 1.2.840.114 [id number] Univers 00:00:00 00:00:00 Secure Msg [employer] HEALTH 350.1.13.10 ity of EYE 4.2.7.2.686 [facility] [phone] [facility] [address] 2021-08-27 2021-08-27 Orders Doctor MAYA 1.2.840.114 [id number] Univers 00:00:00 00:00:00 Only Unassigned, BA 350.1.13.10 ity of [place] [facility] 4.2.7.2.686 [facility] [phone] [facility] [address] 2021-08-22 2021-08-22 Out[facility] [id number] Univers 14:00:00 14:54:52 HUMAIR ity [facility] 2021-08-22 2021-08-22 [facility] 1.2.840.114 [id number] Univers 14:00:00 14:54:52 Visit [employer] HEALTH 350.1.13.10 it y of EYE 4.2.7.2.686 [facility] [place] [phone] [address] 2021-08-22 2021-08-22 Outpatient Tawana [facility] [id number] Univers 14:00:00 14:00:00 HUMAIR ity [facility] 2021-08-12 2021-08-12 Outpatient CHEYENNE VALLE [id number] [place] 00:00:00 00:00:00 CAROLINE almaraz 2021-08-08 2021-08-08 Outpatient Tawana [facility] [id number] Univers 15:30:00 16:30:03 HUMAIR ity [facility] 2021-08-08 2021-08-08 Office [facility] 1.2.840.114 [id number] Univers 15:30:00 16:30:03 Visit [facility] HEALTH 350.1.13.10 it y of EYE 4.2.7.2.686 [facility] [place] [phone] [address] 2021-08-08 2021-08-08 Out[facility] [id number] Univers 15:30:00 16:30:03 HUMAIR ity [facility] 2021-08-08 2021-08-08 Outpatient Tawana JACOB [facility] [id number] Univers 15:30:00 16:30:03 HUMAIR ity [facility] 2021-07-30 2021-07-30 Outpatient Tawana JACOB [facility] [id number] Univers 10:30:00 10:30:00 HUMAIR ity [facility] 2021-07-22 2021-07-22 Outpatient CHEYENEN VALLE [id number] [place] 13:30:00 13:30:00 CAROLINE almaraz 2021-07-15 2021-07-15 Outpatient Tawana [facility] [id number] Univers 13:00:00 13:57:05 HUMAIR ity [facility] 2021-07-15 2021-07-15 Outpatient Tawana NIDIA [facility] [id number] Univers 13:00:00 13:57:05 [facility] 2021-07-15 2021-07-15 [facility] 1.2.840.114 [id number] Univers 13:00:00 13:57:05 Visit [facility] 350.1.13.10 it [place] [id number] [facility] [address] 2021-07-15 2021-07-15 Outpatient CHEYENNE VALLE [id number] [place] 00:00:00 00:00:00 CAROLINE almaraz 2021-07-14 2021-07-14 Outpatient Tawana JACOB [facility] [id number] Univers 10:15:00 10:15:00 [facility] 2021-07-09 2021-07-09 Outpatient Tawana CHAUDHRY [facility] [id number] Univers 15:15:00 16:31:00 ANDRÉS lundy [facility] 2021-07-09 2021-07-09 [facility] 1.2.840.114 [id number] Univers 15:15:00 16:31:00 Visit Andrés WEAVER 350.1.13.10 ity of [place] 4.2.7.2.686 [facility] [place] [id number] [address] [facility] 2021-07-08 2021-07-08 Outpatient CHEYENNE VALLE [id number] [place] 00:00:00 00:00:00 CAROLINE almaraz 2021-07-08 2021-07-08 Transition FELIPA Jackson 1.2.840.114 [id number] Univers 00:00:00 00:00:00 of Care Mickie MANCUSO 350.1.13.10 i [place] [phone] [facility] [address] 2021-07-01 2021-07-05 Inpatient X BROOKS GIRALDO [facility] TIFFANIE [id number] Univers 10:06:00 17:49:00 BROOKS GIRALDO it y of [facility] 2021-07-01 2021-07-05 Inpatient X BROOKS GIRALDO [facility] [id number] Univers 10:06:00 17:49:00 BROOKS GIRALDO it y of [facility] 2021-07-01 2021-07-05 Hospital Jelly Alc[place] 1.2.840.11 [id number] Univers 10:06:00 17:49:00 Encounter Herrera Yoo 350.1.1 3.10 ity of [place] [facility] 4.2.7.2.686 [place] [phone] [facility] [address] 2021-07-02 2021-07-02 Outpatient DIANNA JOHNSON [id number] [place] 10:30:00 10:30:00 Seybol d 2021-07-02 2021-07-02 [facility] [id number] Univers 09:15:00 09:15:00 HUMAIR ity [facility] 2021-07-01 2021-07-01 Out[facility] [id number] Univers 09:00:00 09:30:19 HUMAIR ity [facility] 2021-07-01 2021-07-01 Office PHILOMENA Jacob 1.2.448.305 [id number] Univers 09:00:00 09:30:19 Visit [employer] Y 350.1.13.10 it y of NATIONAL 4.2.7.2.686 Sukhjinder as BANK [phone] [facility] BLDG. [address] 2021-07-01 2021-07-01 Orders Doctor MAYA 1.2.840.114 [id number] Univers 00:00:00 00:00:00 Only Unassigned, BA 350.1.13.10 ity of [place] [facility] 4.2.7.2.686 Sukhjinder as [phone] [facility] [address] 2021-06-30 2021-06-30 Telephone Nidia WAPALLAVI 1.2.576.841 [id number] Univers 00:00:00 00:00:00 [employer]air HEALTH 350.1.13.10 it y of EYE 4.2.7.2.686 [facility] [phone] [address] 2021-06-27 2021-06-27 Outpatient Tawana JACOB [facility] [id number] Univers 14:00:00 14:00:00 ALMAS lundy [facility] 2021-06-26 2021-06-26 Outpatient CHEYENNE DIAZ [id number] [place] 07:35:00 07:35:00 Seybol d 2021-06-26 2021-06-26 Outpatient CHEYENNE DIAZ [id number] [place] 07:05:00 07:05:00 Seybol d 2021-06-26 2021-06-26 Outpatient CHEYENNE BEDOYA [id number] [place] 07:00:00 07:00:00 AHMED Seybol d 2021-06-26 2021-06-26 Outpatient CHEYENNE CACERES [id number] [place] 00:00:00 00:00:00 SHAHEEN vicente 2021-06-25 2021-06-25 Lab Keith, 1.2.840.1 [id number] Methodi 21:20:00 21:25:[address] [facility] 3.430.2.7 Hospit a .3.787554 l .8 2021-06-25 2021-06-25 Lab Keith, 1.2.840.1 [id number] Methodi 21:20:00 21:25:[address] [facility] 3.430.2.7 Hospit a .3.314496 l .8 2021-06-25 2021-06-25 Office KORIN NATHAN 1.2.840.114 [id number] [place] 11:20:00 11:20:00 Visit [facility] 350.1.13.13 Se ybold 1.2.7.2.686 [id number] 0 2021-06-25 2021-06-25 Outpatient CHEYENNE MONTAÑO [id number] [place] 00:00:00 00:00:00 ADRYENE Seybol d 2021-06-25 2021-06-25 Travel 1.2.840.1 1.2.747.063 3603 [id number] Methodi 00:00:00 00:00:[address] 3.430.2.7 0.2.7.3.698 Ho spita .3.908936 084.8 l .8 2021-06-25 2021-06-25 Travel 1.2.840.1 1.2.440.157 [id number] Methodi 00:00:00 00:00:[address] 3.430.2.7 0.2.7.3.698 Ho spita .3.209048 084.8 l .8 2021-06-23 2021-06-23 Outpatient CHEYENNE BEDOYA [id number] [place] 00:00:00 00:00:00 MIRA Seybol d 2021-06-20 2021-06-20 Telemedici Dianna Johnson 1.2.840.11 [id number] [place] 10:15:00 10:26:50 ne Ezio Almaraz 350.1.13.13 Se ybold 1.2.7.2.686 [id number] 5 2021-06-16 2021-06-17 Outpatient X JUAN WAPALLAVI TIFFANIE [id number] Univers 06:11:00 14:35:00 FIDEL lundy [facility] 2021-06-16 2021-06-17 Emergency Guzman Oliva [facility] 1.2.840. 114 [id number] Univers 06:11:00 14:35:00 Fidel Garcia 350.1.13.10 kamron [facility] 4.2.7.2.686 [facility] [id number] [address] 2021-06-16 2021-06-16 Outpatient DIANNA JOHNSON [id number] [place] 15:15:00 15:15:00 Seybol d 2021-06-16 2021-06-16 Outpatient CHEYENNE VALLE [id number] [place] 00:00:00 00:00:00 CAROLINE Seybol d 2021-06-14 2021-06-14 Outpatient LEONARDCHEYENNE [id number] [place] 00:00:00 00:00:00 CAROLINE Seybol d 2021-06-07 2021-06-07 Outpatient NEETU CHEYENNE DIAZ [id number] [place] 00:00:00 00:00:00 RYDER Seybol d 2021-06-07 2021-06-07 Outpatient DIANNA JOHNSON CHEYENNE DIAZ [id number] [place] 00:00:00 00:00:00 Seybol d 2021-06-05 2021-06-05 Outpatient CHEYENNE BEDOYA [id number] [place] 09:02:00 09:02:00 AHMED Seybol d 2021-06-05 2021-06-05 Outpatient CHEYENNE DIAZ [id number] [place] 07:15:00 07:15:00 Seybol d 2021-06-05 2021-06-05 Outpatient CHEYENNE CACERES [id number] [place] 00:00:00 00:00:00 SHAHEEN Seybo ld 2021-06-04 2021-06-04 Outpatient CHEYENNE BEDOYA [id number] [place] 00:00:00 00:00:00 AHMED Seybol d 2021-06-04 2021-06-04 Outpatient MONTAÑOCHEYENNE [id number] [place] 00:00:00 00:00:00 ADRYENE Seybol d 2021-06-03 2021-06-03 Outpatient MARY ESPANA [id number] [place] 10:30:00 10:30:00 Seybol d 2021-05-23 2021-05-23 Outpatient CHEYENNE DIAZ [id number] [place] 14:00:00 14:00:00 Seybol d 2021-05-23 2021-05-23 Outpatient COLE CHEYENNE DIAZ [id number] [place] 12:05:00 12:05:00 Seybol d 2021-05-23 2021-05-23 Office Diego Lorenzo 1.2.840.114 1 [id number] [place] 11:20:00 11:40:00 Visit 350.1.13.13 Se ybold 1.2.7.2.686 [id number] 2021-05-23 2021-05-23 Outpatient CHEYENNE NATHAN [id number] [place] 00:00:00 00:00:00 RYDER Seybol d 2021-05-21 2021-05-21 Outpatient CHEYENNE LEO [id number] [place] 00:00:00 00:00:00 AMARJIT Seybol d 2021-05-19 2021-05-19 Outpatient CHEYENNE LEO [id number] [place] 00:00:00 00:00:00 AMARJIT Seybol d 2021-05-16 2021-05-16 Outpatient CHEYENNE DIAZ [id number] [place] 11:45:00 11:45:00 Seybol d 2021-05-16 2021-05-16 Outpatient CHEYENNE CARRILLO [id number] [place] 11:45:00 11:45:00 NEY Seybol d 2021-05-16 2021-05-16 Office KORIN Nathan 1.2.840.114 [id number] [place] 11:00:00 11:20:00 Visit [facility] 350.1.13.13 Se ybold 1.2.7.2.686 [id number] 2021-05-16 2021-05-16 Outpatient CHEYENNE DIAZ [id number] [place] 11:05:00 11:05:00 Seybol d 2021-05-16 2021-05-16 Outpatient MARY ESPANA [id number] [place] 09:10:00 09:10:00 Seybol d 2021-05-12 2021-05-12 Outpatient DIANNA JOHNSON [id number] [place] 00:00:00 00:00:00 Seybol d 2021-05-11 2021-05-11 Outpatient DIANNA JOHNSON [id number] [place] 00:00:00 00:00:00 Seybol d 2021-05-08 2021-05-08 Outpatient CHEYENNE LEO [id number] [place] 09:30:00 09:30:00 AMARJIT Seybol d 2021-05-06 2021-05-06 Outpatient LAB90 CHEYENNE DIAZ [id number] [place] 10:55:00 10:55:00 Seybol d 2021-05-06 2021-05-06 Office ThiagofitzSurendra 1.2.840.114 [id number] [place] 10:00:00 10:30:00 Visit Caroline He 350.1.13.13 Se ybold 1.2.7.2.686 [id number] 2021-05-05 2021-05-05 Outpatient CHEYENNE BEDOYA [id number] [place] 00:00:00 00:00:00 AHMED Seybol d 2021-05-05 2021-05-05 Outpatient CHEYENNE BEDOYA [id number] [place] 00:00:00 00:00:00 AHMED Seybol d 2021-05-05 2021-05-05 Outpatient MAIRA DIAZ [id number] [place] 00:00:00 00:00:00 MD RAJAN Seybol d 2021-05-05 2021-05-05 Outpatient DIANNA JOHNSON [id number] [place] 00:00:00 00:00:00 Seybol d 2021-05-02 2021-05-02 Office Dianna Johnson .2.840.114 1 [id number] [place] 10:15:00 10:30:00 Visit Ezio Almaraz 350.1.13.13 Se ybold 1.2.7.2.686 [id number] 2021-05-02 2021-05-02 Outpatient CHEYENNE WASHINGTON [id number] [place] 09:00:00 09:00:00 CARMENCITA Seybol d 2021-04-30 2021-04-30 Outpatient LAB45 CHEYENNE DIAZ [id number] [place] 10:25:00 10:25:00 Seybol d 2021-04-30 2021-04-30 Office PAWEL Leo 1.2.868.035 [id number] [place] 08:45:00 09:15:00 Visit Amarjit Hoyos [place] 13409.1.13.13 Jose Antonio DIAGNOSTI 1.2.7.2.686 [facility] [id number] 2021-04-30 2021-04-30 Outpatient CHEYENNE VALLE [id number] [place] 08:30:00 08:30:00 CAROLINE Seybol awa 2021-04-25 2021-04-25 Inpatient EL MontañoJack dejesus [facility] [id number] [facility] 10:00:00 10:00:00 57 [facility] 2021-04-23 2021-04-23 Outpatient CHEYENNE GUEVARA [id number] [place] 09:00:00 09:00:00 JOSE Grimesol awa 2021-04-22 2021-04-22 Outpatient CHEYENNE DIAZ [id number] [place] 07:00:00 07:00:00 Seybol awa 2021-04-22 2021-04-22 Outpatient CHEYENNE GUSMAN [id number] [place] 00:00:00 00:00:00 EVIE Seybol awa 2021-04-22 2021-04-22 Outpatient CHEYENNE GUSMAN [id number] [place] 00:00:00 00:00:00 EVIE Sorensenybol awa 2021-04-18 2021-04-18 Outpatient CHEYENNE DIAZ [id number] [place] 14:00:00 14:00:00 Semiltonol awa 2021-04-18 2021-04-18 Outpatient CHEYENNE VALLE [id number] [place] 00:00:00 00:00:00 CAROLINE Seybol awa 2021-04-17 2021-04-17 Outpatient MontañoJack dejesus [facility] [id number] [facility] 14:14:00 14:14:00 21 [facility] 2021-04-15 2021-04-15 Outpatient Jack Montaño [facility] [id number] [facility] 15:51:00 15:51:00 75 [facility] 2021-04-14 2021-04-14 Outpatient CHEYENNE VALLE [id number] [place] 00:00:00 00:00:00 CAROLINE Seybol d 2021-04-11 2021-04-11 Outpatient LAB90 CHEYENNE DIAZ [id number] [place] 10:20:00 10:20:00 Seybol d 2021-04-10 2021-04-10 Outpatient CHEYENNE VALLE [id number] [place] 00:00:00 00:00:00 CAROLINE Seybol d 2021-04-07 2021-04-07 Outpatient CHEYENNE DIAZ [id number] [place] 10:05:00 10:05:00 Seybol d 2021-04-07 2021-04-07 Outpatient CHEYENNE DIAZ [id number] [place] 10:00:00 10:00:00 Seybol d 2021-04-07 2021-04-07 Outpatient CHEYENNE DIAZ [id number] [place] 09:55:00 09:55:00 Seybol d 2021-04-07 2021-04-07 Outpatient CHEYENNE DIAZ [id number] [place] 09:50:00 09:50:00 Seybol d 2021-04-07 2021-04-07 Outpatient CHEYENNE DIAZ [id number] [place] 09:05:00 09:05:00 Seybol d 2021-04-07 2021-04-07 Office DIANNA JOHNSON 1.2.840.114 [id number] [place] 09:00:00 09:00:00 Visit MEDICAL & 350.1.13.13 Seybold DIAGNOSTI 1.2.7.2.686 [facility] [id number] 2021-04-04 2021-04-04 Outpatient CHEYENNE VALLE [id number] [place] 00:00:00 00:00:00 CAROLINE Seybol d 2021-04-03 2021-04-03 Outpatient CHEYENNE LEO [id number] [place] 15:30:00 15:30:00 AMARJIT Seybol d 2021-04-02 2021-04-02 Outpatient LAB90 CHEYENNE DIAZ [id number] [place] 11:25:00 11:25:00 Seybol d 2021-04-02 2021-04-02 Office Surendra Valle 1.2.840.114 [id number] [place] 10:00:00 10:30:00 Visit Caroline He 350.1.13.13 Se ybold 1.2.7.2.686 [id number] 2021-03-24 2021-03-28 Inpatient U FÉLIX [facility] [id number] Univers 19:41:00 16:22:00 PREMND ity [facility] 2021-03-24 2021-03-28 [facility] Felicia Griffin 1.2.840. 114 [id number] Univers 19:41:00 16:22:00 Encounter Coleman Sharita COSME 350.1.13.10 ity [facility] 4.2.7.2.686 [place] [id number] [facility] [address] 2021-03-26 2021-03-26 Outpatient CHEYENNE VALLE [id number] [place] 00:00:00 00:00:00 CAROLINE Seybol d 2021-03-26 2021-03-26 Outpatient CHEYENNE VALLE [id number] [place] 00:00:00 00:00:00 CAROLINE Seybol d 2021-03-24 2021-03-24 Orders Doctor MAYA 1.2.840.114 [id number] [facility] 00:00:00 00:00:00 Only Unassigned, BA 350.1.13.10 ity of [place] [facility] 4.2.7.2.686 [facility] [id number] [facility] [address] 2021-03-06 2021-03-06 Outpatient CHEYENNE VALLE [id number] [place] 00:00:00 00:00:00 CAROLINE Seybol d 2021-03-05 2021-03-05 Office Surendra Valle 1.2.840.114 [id number] [place] 10:30:00 11:00:00 Visit Caroline Neri 350.1.13.13 Se ybold 1.2.7.2.686 [id number] 2021-03-05 2021-03-05 Outpatient CHEYENNE VALLE [id number] [place] 00:00:00 00:00:00 CAROLINE Seybol d 2021-01-16 2021-01-16 Transition FELIPA Jackson 1.2.840.114 [id number] Univers 00:00:00 00:00:00 of Care Mickie WILSONY 350.1.13.10 i ty of [place] [id number] [facility] [address] 2021-01-12 2021-01-15 Hospital Kim Ba [facility] 1.2.840. 114 [id number] Univers 20:00:00 13:44:00 Encounter Cici Watson 350.1.13.10 it[place] [id number] [facility] [address] 2021-01-12 2021-01-15 Inpatient X WALTER [facility] [id number] Univers 20:00:00 13:44:00 CICI [facility] 2021-01-10 2021-01-10 Outpatient R ZULEIMA [facility] [id number] Univers 14:10:00 14:10:00 HERRERA margaret [facility] 2021-01-10 2021-01-10 Imm/Inj Nurse, Adc Pob Immunization [facility] 1.2.840.114 [id number] Univers 14:04:54 14:05:05 Visit Herrera Yoo 350.1.13 .10 ity of [place] [id number] [place] [facility] [address] BUILDING 2020-04-27 2020-04-27 Outpatient [facility] [id number] Univers 09:45:00 09:45:00 ity [facility] 2020-04-06 2020-04-06 Outpatient R ELIDA [facility] [id number] Univers 09:55:00 09:55:00 LOS [facility] 2020-04-04 2020-04-04 Letter Doctor MAYA 1.2.840.114 [id number] Univers 00:00:00 00:00:00 (Out) Unassigned, BA 350.1.13.10 ity of [place] [facility] 4.2.7.2.686 Sukhjinder as [phone] [address] 2019-07-20 2019-07-20 Telephone Bandar, WAPALLAVI 1.2.840.114 [id number] Univers 00:00:00 00:00:00 [facility] 350.1.13.10 it y of Surgical 4.2.7.2.686 Sukhjinder as Specialti [phone] [place] [address] [facility] 2019-07-20 2019-07-20 Telephone Bandar, [facility] 1.2.840.114 [id number] 00:00:00 00:00:00 [facility] 350.1.13.10 Surgical 4.2.7.2.686 Specialti [phone] es [address] [place] 2019-07-06 2019-07-06 Telephone Bandar [facility] 1.2.840.114 [id number] [facility] 00:00:00 00:00:00 Lisha L [facility] 350.1.13.10 it y of Surgical 4.2.7.2.686 Sukhjinder as Specialti [phone] [place] [address] [facility] 2019-07-06 2019-07-06 Telephone Bandar [facility] 1.2.840.114 [id number] 00:00:00 00:00:00 [facility] 350.1.13.10 Surgical 4.2.7.2.686 Specialti [id number] es [address] [place] 2019-07-04 2019-07-04 [place] Bandar [facility] 1.2.840.114 [id number] [facility] 00:00:00 00:00:00 [facility]isha [facility] 350.1.13.10 it y of Surgical 4.2.7.2.686 Sukhjinder as Specialti [phone] [place] [address] [facility] 2019-07-04 2019-07-04 Telephone Bandar [facility] 1.2.840.114 [id number] 00:00:00 00:00:00 [facility] 350.1.13.10 Surgical 4.2.7.2.686 Specialti [phone] es [address] [place] 2019-06-29 2019-06-29 Office Bandar [facility] 1.2.963.442 [id number] Univers 08:56:15 09:22:49 Visit Lisha Hoyos [facility] 350.1.13.10 it y of Surgical 4.2.7.2.686 Sukhjinder as Specialti [phone] Me dical es [address] [place] 2019-06-29 2019-06-29 [facility] 1.2.617.022 [id number] 08:56:15 09:22:49 Visit Lisha Hoyos [facility] 350.1.13.10 Surgical 4.2.7.2.686 Specialti [phone] es [address] [place] 2019-06-29 2019-06-29 [facility] [id number] Univers 09:00:00 09:00:00 [facility] 2019-05-02 2019-05-03 Inpatient [facility] [id number] 07:39:00 19:00:00 [facility] 2019-04-11 Outpatient [facility] [address] 11:28:00 14:50:00 MAYA Nguyen [facility] Results Test Description Test Time Test Comments Results Result Comments Source Fungus culture 2021-06-30 19:50:00 Test Item Value Reference Range Interpretation Comme nts Fungus culture isolate Fusarium species A S pecimen InformationSpecimen (test code = 580-1) Source: CorneaSpecimen Site: Left Eye [place] (test code = [place]) ONLY CXFUN IS REQUESTED ON REQ Lab Interpretation (test Abnormal code = 14341-3) [facility]2022-05-23 19:50:00 Test Item Value Reference Interpretation Comments Range Fungus culture Fusarium A Specimen isolate (test code species Informati onSpecimen = 580-1) Source: CorneaS pecimen Site: Left Eye [place] (test code = ONLY CXFUN IS [place]) REQUESTED ON REQ Lab Interpretation Abnormal (test code = 21300-0) [facility] [id number] 19:50:00 Test Item Value Reference Interpretation Comments Range Fungus culture Fusarium A Specimen isolate (test code species Informati onSpecimen = 580-1) Source: CorneaS pecimen Site: Left Eye [place] (test code = ONLY CXFUN IS [place]) REQUESTED ON REQ Lab Interpretation Abnormal (test code = 77187-5) [id number] 19:50:00 Test Item Value Reference Interpretation Comments Range Fungus culture Fusarium A Specimen isolate (test code species Informati onSpecimen = 580-1) Source: CorneaS pecimen Site: Left Eye [place] (test code = ONLY CXFUN IS [place]) REQUESTED ON REQ Lab Interpretation Abnormal (test code = 14079-4) [facility] [id number] 16:56:00 Test Item Value Reference Range Interpretation Comments SPECIFIC GRAVITY 1.005-1.030 (test code = 5811-5) PH (test code = 5.0-7.5 5803-2) URINE-COLOR (test Yellow Yellow code = 5778-6) APPEARANCE (test code Clear Clear = 5767-9) WBC ESTERASE (test 1+ Negative A code = 5799-2) PROTEIN (test code = Negative Negative/Trace 39310-8) GLUCOSE (test code = Negative Negative 68975-5) KETONES (test code = Negative Negative 2514-8) OCCULT BLOOD (test Negative Negative code = 5794-3) BILIRUBIN (test code Negative Negative = 5770-3) UROBILINOGEN,SEMI-QN 0.2 mg/dL 0.2-1.0 (test code = 78371-3) NITRITE, URINE (test Negative Negative code = 5802-4) MICROSCOPIC See below: Microscopic was EXAMINATION (test indicated and was code = 00603-9) performed. [place] (test code = [place]) [facility] results reported in [place] Time. [facility] Clinical Information:SRC :Urine*Urine ?[facility] Source of Specimen:Urine* Urine Lab Interpretation Abnormal (test code = 12415-5) [facility] SeyboldMICROSCOPIC [id number] 16:56:00 Test Item Value Reference Range Interpretation Comments WBC (test code = 11-30 See_Comment A [Automated 2721-4) message] The system which generated this result transmit senthil reference range : 0 - 5 /hpf. The reference range was not used to interpret this result as normal/abnormal . RBC (test code = None seen See_Comment [Automated 77474-4) message] The system which generated this result [...] code = None seen None seen /lpf 88101-9) BACTERIA (test code = None seen None seen/Few 5769-5) [place] (test code = [place]) [facility] results reported in [place] Time. [facility] Clinical Information:SRC :Urine*Urine ?[facility] Source of Specimen:Urine* Urine Lab Interpretation Abnormal (test code = 70014-4) [facility]yenne CooperGNESIUM, [id number] 14:37:00 Test Item Value Reference Range Interpretation Comments MAGNESIUM, SERUM 1.9 mg/dL 1.6-2.3 (test code = 61375-0) [place] (test code = [place]) [facility] results reported in [place] Time. [facility] Clinical Information:[facility] Source of Specimen:Blood, venous*Venipunc Cheyenne BradyPHOSPHORUS, [id number] 14:37:00 Test Item Value Reference Range Interpretation Comments PHOSPHORUS, SERUM 3.2 mg/dL 2.8-4.1 (test code = 2777-1) [place] (test code = [place]) [facility] results reported in [place] Time. [facility] Clinical Information:SRC:Blood, venous*Venipunc ture ? [facility] Source of Specimen:Blood, venous*Venipunc Cheyenne BradyCOMP. METABOLIC PANEL (14)2021-04-03 14:09:00 Test Item Value Reference Range Interpretation Comments GLUCOSE, SERUM (test 101 mg/dL 65-99 H code = 2345-7) BUN (test code = 22 mg/dL 6-24 3094-0) CREATININE, SERUM 1.22 mg/dL 0.76-1.27 ? (test code = 2160-0) Effec tive April 07, 2021 [facility] will begin ? reporting the 2020 CKD-EPI creatin ine equation that ? estimat es kidney function without a race variable. EGFR IF NONAFRICN AM 70 mL/min/1.73 >59 (test code = 05497-3) EGFR IF AFRICN AM 81 mL/min/1.73 >59 In acc ordance with (test code = recommendations from 53458-0) the NKF-ASN Tas k force, ?[facility]p [...] SERUM (test 9.4 mg/dL 8.7-10.2 code = 54245-9) PROTEIN, TOTAL, 7.1 g/dL 6.0-8.5 SERUM (test code = 2885-2) ALBUMIN, SERUM (test 4.7 g/dL 4.0-5.0 code = 1751-7) GLOBULIN, TOTAL 2.4 g/dL 1.5-4.5 (test code = 74130-1) A/G RATIO (test code 1.2-2.2 = 1759-0) [...] (SGOT) (test See_Comment [Automated message] code = 6350-8) The system [employer] generated this result transmitted ref erence range: 0 - 40 I U/L. The reference r reece was not used to interpret this result as normal/abnor mal. ALT (SGPT) (test See_Comment [Automated message] code = 8882-6) The system [facility] generated this result transmitted ref erence range: 0 - 44 I U/L. The reference r reece was not used to interpret this result as normal/abnor mal. [place] (test code = [facility] [place]) results reported in [place] Time. [facility] Clinical Information:SR C:Blood, venous*Venipun c ture ? [facility] Source of Specimen:Blood , venous*Venipun c Lab Interpretation Abnormal (test code = 47116-4) Cheyenne Brady
[2022-02-12] MEDS ORDERED: MORPHINE 4 MG/ML SYR ONE (16:00)
[2022-02-12] MEDS ORDERED: ONDANSETRON 4 MG/2 ML VIAL ONE (16:00)
[2022-02-12 16:39] LABS: Magnesium 1.7 mg/dL (1.6-2.4)
[2022-02-12 16:40] LABS: Potassium 5.6 mmol/L (3.5-5.1)
[2022-02-12] MEDS ORDERED: ALBUTEROL 2.5 MG/3 ML NEB SOL ONE (17:07)
[2022-02-12] MEDS ORDERED: NA CHLORIDE 0.9% 1,000 ML ONE (17:07)
[2022-02-12] MEDS ORDERED: D10W 250 ML IV ONE (17:10)
[2022-02-12 17:21] LABS: Absolute Lymphocytes (CBC) 1.2 K/uL (0.7-4.9); Hematocrit 24.9 % (39.6-49.0); MCV 95.7 fL (80-100); MPV 7.3 fL (7.6-11.3)
[2022-02-12 17:28] LABS: Protime INR 1.05
--- NOTE | 2022-02-12 17:31 | ER ---
Nurse's Notes [facility] Name: Rhett Ayers Age: 46 yrs Sex: Male : 1975 Arrival Date: 02/12/2022 Time: 15:20 Bed 27 Private MD: Diagnosis: Hyperkalemia;Unspecified injury of unspecified kidney, initial encounter Presentation: 02/12 15:22 Chief complaint: Patient states: " I was in preop today to check the flow of my blood em6 in my legs, because I have an open wound in the right foot. My labs came back and they decided to cancel my procedure and they sent me here to the ER. On December 22 I fell and cut my right food and it got infected I am a diabetic". Coronavirus screen: Client denies travel out of the [place] in the last 14 days. Ebola Screen: Patient negative for fever greater than or equal to 101.5 degrees Fahrenheit, and additional compatible Ebola Virus Disease symptoms. Initial Sepsis Screen: Does the patient meet any 2 criteria? No. Patient's initial sepsis screen is negative. Does the patient have a suspected source of infection? Yes: Skin breakdown/wound. Risk Assessment: Do you want to hurt yourself or someone else? Patient reports no desire to harm self or others. Onset of symptoms was February 12, 2022. 15:22 Method Of Arrival: Other em6 15:22 Acuity: SANTIAGO 3 em6 Historical: - Allergies: 15:28 No Known Allergies; em6 - PMHx: 15:28 CKD; compressed discs; Diabetes - NIDDM; gastric ulcer; Hypertension; Kidney stone; em6 Orthostatic hypotension; PUD; - PSHx: 15:28 Cholecystectomy; Gatric Bypass; Ureter sx; em6 - Immunization history:: Adult Immunizations up to date. - Social history:: Smoking status: unknown. Screenin:27 [facility] ED Fall Risk Assessment (Adult) History of falling in the last 3 months, em6 including since admission Yes- single mechanical fall (1 pt) Confusion or Disorientation No (0 pts) Intoxicated or Sedated No (0 pts) Impaired Gait Yes (1 pt) Mobility Assist Device Used No (0 pt) Altered Elimination No (0 pt) Score/Fall Risk Level 0 - 2 = Low Risk Oriented to surroundings, Maintained a safe environment, Educated pt \\T\\ family on fall prevention, incl call for assistance when getting out of bed, Assessed \\T\\ reinforced patient's understanding of fall precautions, Provided non-skid footwear, Hourly rounding (assess needs \\T\\ fall precautionary measures) done, Used ambulatory aids as needed (educated on \\T\\ assisted with), Used gait belt as appropriate. Abuse screen: Denies threats or abuse. Nutritional screening: No deficits noted. Tuberculosis screening: No symptoms or risk factors identified. Assessment: 15:20 General: Appears in no apparent distress. Behavior is cooperative. Pain: Complains of em6 pain in back and right foot Pain does not radiate. Pain currently is 8 out of 10 on a pain scale. Quality of pain is described as sharp, stabbing. Neuro: Level of Consciousness is awake, alert, obeys commands, Oriented to person, place, time, situation. Cardiovascular: Patient's skin is warm and dry. Respiratory: Airway is patent Respiratory effort is even, unlabored, Respiratory pattern is regular, symmetrical, Breath sounds are clear bilaterally. GI: Abdomen is non-distended, Bowel sounds present X 4 quads. Abd is soft and non tender X 4 quads. : No signs and/or symptoms were reported regarding the genitourinary system. EENT: No signs and/or symptoms were reported regarding the EENT system. Derm: wound noted to the right foot. dressing dry and intact. Musculoskeletal: Range of motion: intact in all extremities. 16:20 Reassessment: Patient appears in no apparent distress at this time. No changes from em6 previously documented assessment. Patient and/or family updated on plan of care and expected duration. Pain level reassessed. Patient is alert, oriented x 3, equal unlabored respirations, skin warm/dry/pink. 17:20 Reassessment: Patient appears in no apparent distress at this time. No changes from em6 previously documented assessment. Patient and/or family updated on plan of care and expected duration. Pain level reassessed. Patient is alert, oriented x 3, equal unlabored respirations, skin warm/dry/pink. 18:20 Reassessment: Patient appears in no apparent distress at this time. No changes from em6 previously documented assessment. Patient and/or family updated on plan of care and expected duration. Pain level reassessed. Patient is alert, oriented x 3, equal unlabored respirations, skin warm/dry/pink. 19:20 Reassessment: Patient appears in no apparent distress at this time. No changes from em6 previously documented assessment. Patient and/or family updated on plan of care and expected duration. Pain level reassessed. Patient is alert, oriented x 3, equal unlabored respirations, skin warm/dry/pink. 20:20 Reassessment: Patient appears in no apparent distress at this time. No changes from em6 previously documented assessment. Patient and/or family updated on plan of care and expected duration. Pain level reassessed. Patient is alert, oriented x 3, equal unlabored respirations, skin warm/dry/pink. Vital Signs: 15:22 BP 162 / 80; Pulse 71; Resp 20; Temp 98.1; Pulse Ox 99% ; Weight 122.47 kg; Height 6 em6 ft. 2 in. (187.96 cm); Pain 8/10; 16:45 BP 146 / 66; Pulse 73; Resp 15; Pulse Ox 100% on R/A; em6 17:30 BP 145 / 80; Pulse 78; Resp 15; Pulse Ox 100% on R/A; em6 20:09 BP 140 / 66; Pulse 82; Resp 18; Pulse Ox 100% ; em6 15:22 Body Mass Index 34.67 (122.47 kg, 187.96 cm) em6 ED Course: 15:20 Patient arrived in ED. em6 15:20 Accessed PICC line. Blood collected. PICC line dressing intact.. em6 15:21 Jose Carlos Carrasco PA is PHCP. cp 15:21 Geovany Salinas DO is Attending Physician. cp 15:27 Triage completed. em6 15:28 Arm band placed on. em6 15:28 Placed in gown. Bed in low position. Call light in reach. Side rails up X 1. Pulse ox em6 on. NIBP on. Warm blanket given. 15:35 Jelly Fowler, MEGHANN is Primary Nurse. em6 17:30 Larry Jones MD is Hospitalizing Provider. cp 17:57 SARS RAPID Sent. em6 20:55 No provider procedures requiring assistance completed. em6 20:56 Patient admitted, IV remains in place. em6 Administered Medications: 16:14 Drug: morphine 4 mg Route: IVP; Infused Over: 4 mins; Site: PICC; em6 17:00 Follow up: Response: No adverse reaction em6 16:14 Drug: Zofran (Ondansetron) 4 mg Route: IVP; Site: PICC; em6 17:00 Follow up: Response: No adverse reaction em6 17:26 Drug: D50W 50 ml Route: IVP; Site: PICC; em6 19:27 Follow up: Response: No adverse reaction em6 17:26 Drug: Albuterol 2.5 mg Route: Inhalation; em6 17:26 Drug: NS 0.9% 1000 ml Route: IV; Rate: 1 bolus; Site: PICC; em6 20:08 Follow up: Response: No adverse reaction; IV Status: Completed infusion; IV Intake: em6 1000ml 17:27 Drug: D50W 50 ml Route: IVP; Site: PICC; em6 19:27 Follow up: Response: No adverse reaction em6 18:00 Drug: Albuterol 2.5 mg Route: Inhalation; em6 18:32 Drug: Calcium Gluconate 1 grams Route: IVPB; Infused Over: 60 mins; Site: PICC; em6 19:27 Follow up: Response: No adverse reaction; IV Status: Completed infusion; IV Intake: [id number] 18:33 Drug: Albuterol 2.5 mg Route: Inhalation; em6 18:55 Drug: Lasix (furosemide) 40 mg Route: IVP; Site: PICC; em6 19:27 Follow up: Response: No adverse reaction em6 19:33 Drug: Insulin Regular Human 10 units {Co-Signature: [email or web address] (Monae Tellez RN).} em6 Route: IVP; Site: PICC; 20:08 Follow up: Response: No adverse reaction em6 Medication: 20:56 VIS not applicable for this client. em6 Intake: 19:27 IV: 50ml; Total: 50ml. em6 20:08 IV: 1000ml; Total: 1050ml. em6 Outcome: 17:31 Decision to Hospitalize by Provider. cp 20:56 Admitted to Tele accompanied by manan, via wheelchair, room 410, Report called to hoang em6 20:56 Condition: stable 20:56 Instructed on the need for admit, Demonstrated understanding of instructions. 20:57 Patient left the ED. em6 Signatures: Page, Jose Carlos, PA PA cp Malcolm, Jelly, RN RN em6 Monae Tellez RN mb9 Corrections: (The following items were deleted from the chart) 20:56 15:20 Accessed PICC line. Blood collected. PICC line dressing intact.. Patient em6 admitted, IV remains in place. em6
--- NOTE | 2022-02-12 17:31 | EDPHYS ---
Physician Documentation [facility] Name: Rhett Ayers Age: 46 yrs Sex: Male : 1975 Arrival Date: 02/12/2022 Time: 15:20 Bed 27 Private MD: ED Physician Geovany Salinas HPI: 02/12 15:40 This 46 yrs old Male presents to ER via Other with complaints of Abnormal labs.cp 15:40 Patient presents to ED after being referred by DR Erwin for elevated serum potassium. cp Patient reports he was scheduled for right leg stents to be placed when blood work showed elevated potassium level. Patient with chronic wound to right foot and is currently receiving IV Vancomycin and Levofloxacin antibiotics. Historical: - Allergies: 15:28 No Known Allergies; em6 - PMHx: 15:28 CKD; compressed discs; Diabetes - NIDDM; gastric ulcer; Hypertension; Kidney stone; em6 Orthostatic hypotension; PUD; - PSHx: 15:28 Cholecystectomy; Gatric Bypass; Ureter sx; em6 - Immunization history:: Adult Immunizations up to date. - Social history:: Smoking status: unknown. ROS: 15:45 Constitutional: Negative for body aches, chills, fever, poor PO intake. cp 15:45 Eyes: Negative for injury, pain, redness, and discharge. cp 15:45 ENT: Negative for drainage from ear(s), ear pain, sore throat, difficulty swallowing, difficulty handling secretions. 15:45 Cardiovascular: Negative for chest pain, palpitations. 15:45 Respiratory: Negative for cough, shortness of breath, wheezing. 15:45 Abdomen/GI: Negative for abdominal pain, nausea, vomiting, and diarrhea. 15:45 Back: Positive for pain at rest, Negative for injury or acute deformity. 15:45 MS/extremity: Positive for pain, of the right foot and right leg. 15:45 Neuro: Negative for altered mental status, dizziness, headache. 15:45 All other systems are negative. Exam: 15:50 Constitutional: The patient appears in no acute distress, alert, awake, cp non-diaphoretic, non-toxic, well developed, well nourished, obese. 15:50 Head/Face: Normocephalic, atraumatic. cp 15:50 Eyes: Periorbital structures: appear normal, Conjunctiva: normal, no exudate, no injection, Sclera: no appreciated abnormality, Lids and lashes: appear normal, bilaterally. 15:50 ENT: External ear(s): are unremarkable, Nose: is normal, Mouth: Lips: moist, Oral mucosa: moist, Posterior pharynx: Airway: no evidence of obstruction, patent. 15:50 Chest/axilla: Inspection: normal. 15:50 Cardiovascular: Rate: normal, Rhythm: regular, Edema: is not appreciated, JVD: is not appreciated. 15:50 Respiratory: the patient does not display signs of respiratory distress, Respirations: normal, no use of accessory muscles, no retractions, labored breathing, is not present, Breath sounds: are clear throughout, no decreased breath sounds, no stridor, no wheezing. 15:50 Abdomen/GI: Inspection: abdomen appears normal, Palpation: abdomen is soft and non-tender, in all quadrants. 15:50 Back: pain, is absent, ROM is normal. 15:50 Skin: chronic wound noted to dorsum right foot with mild swelling and mild erythema. 16:21 ECG was reviewed by the Attending Physician. Vital Signs: 15:22 BP 162 / 80; Pulse 71; Resp 20; Temp 98.1; Pulse Ox 99% ; Weight 122.47 kg; Height 6 em6 ft. 2 in. (187.96 cm); Pain 8/10; 16:45 BP 146 / 66; Pulse 73; Resp 15; Pulse Ox 100% on R/A; em6 17:30 BP 145 / 80; Pulse 78; Resp 15; Pulse Ox 100% on R/A; em6 20:09 BP 140 / 66; Pulse 82; Resp 18; Pulse Ox 100% ; em6 15:22 Body Mass Index 34.67 (122.47 kg, 187.96 cm) em6 MDM: 15:24 Patient medically screened. 17:00 Data reviewed: vital signs, nurses notes, lab test result(s), EKG. 17:00 Test interpretation: by ED physician or midlevel provider: ECG. 17:10 Physician consultation: Trell Erwin MD was called at 17:05, was contacted at 17:05, regarding patient's condition, wants patient admitted to hospitalist services and consult. 02/12 15:33 Order name: Basic Metabolic Panel; Complete Time: 16:53 02/12 16:53 Interpretation: Normal except: K 5.6; CL 112; CO2 17; BUN 22; CRE 1.63; GFR 52. cp 02/12 15:33 Order name: CBC with Diff; Complete Time: 17:29 cp 02/12 17:29 Interpretation: Normal except: RBC 2.60; HGB 8.3; HCT 24.9; RDW 17.4; MPV 7.3; LYM% cp 15.0; EOSINOPHIL % 10.6; EOSA 0.8. 01 15:33 Order name: Magnesium; Complete Time: 16:53 cp 02/12 15:33 Order name: PT-INR; Complete Time: 17:29 cp 02/12 16:23 Order name: Glucose, Ancillary Testing; Complete Time: 16:53 EDMS 02/12 17:51 Order name: SARS RAPID; Complete Time: 18:46 em6 02/12 18:46 Interpretation: Reviewed. 02/12 15:33 Order name: EKG; Complete Time: 15:33 cp 02/12 15:33 Order name: Cardiac monitoring; Complete Time: 16:25 cp 02/12 15:33 Order name: EKG - Nurse/Tech; Complete Time: 16:24 cp 02/12 15:33 Order name: IV Saline Lock; Complete Time: 16:14 cp 02/12 15:33 Order name: Labs collected and sent; Complete Time: 16:14 cp 02/12 15:33 Order name: O2 Per Protocol; Complete Time: 16:14 cp 02/12 15:33 Order name: O2 Sat Monitoring; Complete Time: 16:14 cp 02/12 15:33 Order name: Accucheck Blood Glucose; Complete Time: 16:14 cp 02/12 16:28 Order name: Labs - recollect needed; Complete Time: 17:08 ld1 EC:21 Rate is 74 beats/min. Rhythm is regular. CT interval is normal. QRS interval is normal. cp QT interval is normal. T waves are Inverted in lead aVR. Interpreted by me. Reviewed by me. Administered Medications: 16:14 Drug: morphine 4 mg Route: IVP; Infused Over: 4 mins; Site: PICC; em6 17:00 Follow up: Response: No adverse reaction em6 16:14 Drug: Zofran (Ondansetron) 4 mg Route: IVP; Site: PICC; em6 17:00 Follow up: Response: No adverse reaction em6 17:26 Drug: D50W 50 ml Route: IVP; Site: PICC; em6 19:27 Follow up: Response: No adverse reaction em6 17:26 Drug: Albuterol 2.5 mg Route: Inhalation; em6 17:26 Drug: NS 0.9% 1000 ml Route: IV; Rate: 1 bolus; Site: PICC; em6 20:08 Follow up: Response: No adverse reaction; IV Status: Completed infusion; IV Intake: em6 1000ml 17:27 Drug: D50W 50 ml Route: IVP; Site: PICC; em6 19:27 Follow up: Response: No adverse reaction em6 18:00 Drug: Albuterol 2.5 mg Route: Inhalation; em6 18:32 Drug: Calcium Gluconate 1 grams Route: IVPB; Infused Over: 60 mins; Site: PICC; em6 19:27 Follow up: Response: No adverse reaction; IV Status: Completed infusion; IV Intake: [id number] 18:33 Drug: Albuterol 2.5 mg Route: Inhalation; em6 18:55 Drug: Lasix (furosemide) 40 mg Route: IVP; Site: PICC; em6 19:27 Follow up: Response: No adverse reaction em6 19:33 Drug: Insulin Regular Human 10 units {Co-Signature: [email or web address] (Monae Tellez RN).} em6 Route: IVP; Site: PICC; 20:08 Follow up: Response: No adverse reaction em6 Disposition: 16:49 Co-signature as Attending Physician, Geovany REA was immediately available on-site ms3 in the Emergency Department for consultation in the care of the patient. Disposition Summary: 02/12/22 17:31 Hospitalization Ordered Hospitalization Status: Inpatient Admission cp Provider: Larry Jones cp Location: Telemetry/[facility] (Inpatient) cp Condition: Stable cp Problem: new cp Symptoms: are unchanged cp Bed/Room Type: Standard cp Room Assignment: 410(02/12/22 19:52) cg Diagnosis - Hyperkalemia cp - Unspecified injury of unspecified kidney, initial encounter cp Forms: - Medication Reconciliation Form cp - SBAR form cp Signatures: Dispatcher [employer] EDHayes Shannon, FUNERAL SERVICE PRACTITIONER/EMBALMER-C FUNERAL SERVICE PRACTITIONER/EMBALMER-Cla1 Jose Carlos Carrasco PA PA cp Garcia, Cindy, RN RN cg Geovany Salinas DO DO ms3 Kamilah Griffith RN RN ld1 Jelly Fowler RN RN em6 Monae Tellez RN mb9 Corrections: (The following items were deleted from the chart) 19:52 17:31 cp cg
[2022-02-12] MEDS ORDERED: CALCIUM GLUCONATE 1 GM IVPB 1 GM/50 ML BAG IV ONE (18:03)
[2022-02-12 18:25] LABS: SARS-CoV-2 Antigen Rapid Res Negative (Negative)
[2022-02-12] MEDS ORDERED: FUROSEMIDE 40 MG/4 ML VIAL ONE (18:53)
--- NOTE | 2022-02-12 19:15 | P.HP ---
Certification for Inpatient Patient admitted to: Observation With expected LOS: <2 Midnights Patient will require the following post-hospital care: None Practitioner: I am a practitioner with admitting privileges, knowledge of patient current condition, hospital course, and medical plan of care. Services: Services provided to patient in accordance with Admission requirements found in Title 42 Section 412.3 of the Code of Federal Regulations <Hayes Forte - Last Filed: 02/12/22 19:15> Patient History Date of Service: 02/12/22 Reason for admission: Hyperkalemia, CKD, foot ulcer History of Present Illness: 46-year-old male with history of vli-hilclho-okxzimosd diabetes, CKD 3, hypertension, GERD was scheduled for a angiogram of the right lower extremity given a chronic wound that has been present. Patient has been on antibiotics with vancomycin/Levaquin for the last approximately 4 weeks and is due to continue for total of 6 weeks for this diabetic ulceration to the dorsum of his right foot. He had labs performed prior to the procedure which demonstrated an elevated potassium level, at that time he was referred to the emergency department. He had his labs repeated in the emergency department his potassium was 5.6, creatinine 1.63, GFR 52, BUN 22 hemoglobin is 8.3 hematocrit 24.9. Patient was given insulin, dextrose, calcium gluconate, albuterol, Lasix in ED. ED provider wishes to admit under observation for further evaluation and management of hyperkalemia, diabetic foot ulceration. - Past Medical/Surgical History Diabetic: Yes -: Chronic back pain -: DM II Dx age 22 -: Gastric ulcer -: Anemia -: HTN -: CKD II with proteinuria/ Hx MIGUEL followed by Dr. Ferguson -: R knee surgery -: Gastric bypass -: Phimosis skin graft -: Circumcision -: Jackie -: rt knee surg Psychosocial/ Personal History: Patient lives at home with his , is disabled - Family History Mother -: Heart disease, Diabetes Notes: of cirrrosis of liver Father -: Diabetes Brother -: Hypertension, Diabetes Notes: at 39yr old from "natural causes" - Social History Alcohol use: No CD- Drugs: No Caffeine use: Yes Place of Residence: Home <Hayes Forte - Last Filed: 02/12/22 19:15> Date of Service: 02/13/22 <Larry Jones - Last Filed: 02/13/22 18:39> Allergies No Known Allergies Allergy (Verified 08/02/19 10:37) Home Medications: Gabapentin [Neurontin] 800 mg PO Q8H 04/02/19 Fluoxetine HCl [Prozac] 1 cap PO DAILY 12/20/20 Morphine *Extended Release* [MS Contin*] 1 tab PO DAILY 12/20/20 Carvedilol [Coreg] 2 tab PO BID 01/05/22 Hydrocodone Bit/Acetaminophen [Hydrocodon-Acetaminophn 10-325] 1 tab PO Q6H 01/05/22 Tizanidine HCl [Zanaflex] 1 tab PO Q6HP PRN 02/12/22 Review of Systems 10-point ROS is otherwise unremarkable Musculoskeletal: Foot Pain <Hayes Forte - Last Filed: 02/12/22 19:15> Physical Examination - Physical Exam General: Alert, In no apparent distress, Oriented x3 HEENT: Atraumatic, PERRLA, Mucous membr. moist/pink, EOMI, Sclerae nonicteric Neck: Supple, 2+ carotid pulse no bruit, No LAD, Without JVD or thyroid abnormality Respiratory: Clear to auscultation bilaterally, Normal air movement Cardiovascular: Regular rate/rhythm, Normal S1 S2 Capillary refill: <2 Seconds Gastrointestinal: Normal bowel sounds, No tenderness Musculoskeletal: No tenderness Integumentary: Diabetic ulcer (Diabetic ulceration present to the dorsum of the right foot with granulation tissue present.) Neurological: Normal gait, Normal speech, Normal strength at 5/5 x4 extr, Normal tone, Normal affect - Studies Laboratory Data (last 24 hrs) 02/12/22 17:08: PT 11.6, INR 1.05 02/12/22 17:08: WBC 7.80, Hgb 8.3 L, Hct 24.9 L, Plt Count 238 02/12/22 16:06: Sodium 136, Potassium 5.6 H*, BUN 22 H, Creatinine 1.63 H, Glucose 96, Magnesium 1.7 <Hayes Forte - Last Filed: 02/12/22 19:15> Assessment and Plan - Plan Assessment: CKD 3 with hyperkalemia 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 We will repeat potassium level this evening, nephrology consult in place. Patient similar to baseline underlying renal function. 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 Will need total of 6 weeks, continue IV antibiotics during hospitalization. We will consult wound healing, general surgery for evaluation. Diabetes mellitus type [id number]: A1c in the morning, mild sliding scale insulin. Chronic pain: Home medications continued hypertension: Continue home medications as appropriate. DVT PPX: Heparin Code status: Full Discharge Plan: Home Plan to discharge in: 24 Hours - Advance Directives Does patient have a Living Will: No Does patient have a Durable POA for Healthcare: Yes - Code Status/Comfort Care Code Status Assessed: Yes (Full code) Critical Care: No Time Spent Managing Pts Care (In Minutes): 55 <Hayes Forte - Last Filed: 02/12/22 19:15> Physician Review: Patient Assessed, Agree with Above Assessment and Plan <Larry Jones - Last Filed: 02/13/22 18:39>
[2022-02-12] MEDS ORDERED: INSULIN -REGULAR HUMAN 50 UNIT/0.5 ML ML ONE (19:32)
[2022-02-12] MEDS ORDERED: ACETAMINOPHEN 500 MG TAB PO PRN (21:01)
[2022-02-12] MEDS ORDERED: NA CHLORIDE 0.9% 1,000 ML IV SCH (21:01)
[2022-02-12] MEDS ORDERED: ONDANSETRON 4 MG/2 ML VIAL IV PRN (21:01)
[2022-02-12] MEDS: TIZANIDINE 4 MG TABLET PO SCH ×2 (21:01)
[2022-02-12] MEDS ORDERED: DOXEPIN HCL 25 MG CAP PO SCH (21:01)
[2022-02-12 21:34] VITALS: O2SAT 100
[2022-02-12] MEDS: GABAPENTIN 400 MG CAP PO SCH (21:36)
[2022-02-12] MEDS: HEPARIN 5000 UNIT/ML 1 ML VIAL SQ SCH (21:36)
[2022-02-12] MEDS: NA CHLORIDE 0.9% 1,000 ML IV SCH (21:37)
[2022-02-12] MEDS: HYDROCODONE/APAP 10/325 TAB PO SCH (21:37)
[2022-02-12] MEDS: INSULIN -REGULAR HUMAN 50 UNIT/0.5 ML ML SQ SCH (21:38)
[2022-02-12] MEDS ORDERED: VANCOMYCIN 2 GM in NA CHLORIDE 0.9% 500 ML IVPB SCH (22:00)
[2022-02-12] MEDS ORDERED: VANCOMYCIN 1 GM/VIAL ONE (23:31)
[2022-02-12] MEDS ORDERED: NA CHLORIDE 0.9% 500 ML ONE (23:32)
[2022-02-13 00:40] VITALS: BMI 34.2
[2022-02-13] MEDS ORDERED: HYDROCODONE/APAP 10/325 TAB PO ONE (02:41)
[2022-02-13] MEDS ORDERED: SOD POLYSTYREN SUL 15 GM/60 ML UCUP PO ONE (02:43)
[2022-02-13 04:51] LABS: Hematocrit 23.1 % (39.6-49.0); Lymphocytes % 13.8 % (15.3-44.8); MCV 96.1 fL (80-100); MPV 7.6 fL (7.6-11.3)
[2022-02-13 05:04] LABS: Potassium 5.4 mmol/L (3.5-5.1)
[2022-02-13] MEDS: TIZANIDINE 4 MG TABLET PO SCH ×3 (05:25→17:45)
[2022-02-13] MEDS: INSULIN -REGULAR HUMAN 50 UNIT/0.5 ML ML SQ SCH ×3 (07:30→16:30)
[2022-02-13] MEDS ORDERED: VANCOMYCIN 1 GM in NA CHLORIDE 0.9% 250 ML IVPB SCH (09:00)
[2022-02-13] MEDS ORDERED: COLLAGENASE 30 GM OINTMENT TOP SCH (09:00)
[2022-02-13] MEDS ORDERED: FLUOXETINE 20 MG CAP PO SCH (09:00)
[2022-02-13] MEDS ORDERED: MORPHINE *EXTENDED RELEASE* 15 MG TAB PO SCH (09:00)
[2022-02-13] MEDS ORDERED: Levofloxacin500mg IV 500 MG/100 ML BAG IV SCH (09:00)
[2022-02-13 09:08] LABS: Specific Gravity 1.015 (1.005-1.030); Urine Bacteria None Seen /HPF (<20); Urine Bilirubin NEGATIVE (Negative); Urine Blood Negative (Negative); Urine Clarity Clear (Clear); Urine Color Light-Yellow (Yellow); Urine Glucose 3+ (Negative); Urine Protein TRACE (Negative); Urine RBC <5 /HPF (None Seen); Urine Urobilinogen Normal (Normal)
[2022-02-13] MEDS: GABAPENTIN 400 MG CAP PO SCH ×3 (09:25→17:45)
[2022-02-13] MEDS: HYDROCODONE/APAP 10/325 TAB PO SCH ×3 (09:25→17:46)
[2022-02-13] MEDS: NA CHLORIDE 0.9% 1,000 ML IV SCH (09:37)
[2022-02-13] MEDS: HEPARIN 5000 UNIT/ML 1 ML VIAL SQ SCH (10:19)
[2022-02-13 12:50] VITALS: TEMP 98.7
[2022-02-13 16:59] VITALS: BP 135/60
[2022-02-13] MEDS ORDERED: VANCOMYCIN 2 GM in NA CHLORIDE 0.9% 500 ML IVPB SCH (18:00)
--- NOTE | 2022-02-13 18:39 | P.DS ---
Admission Date: 02/12/22 Discharge Date: 02/13/22 Primary Care Provider: Dr. Olivera Disposition: ROUTINE DISCHARGE Discharge Condition: GOOD Reason for Admission: Hyperkalemia, CKD, foot ulcer Consultations: 1. Nephrology 2. General Surgery Hospital Course: DIAGNOSES: # KDIGO Stage I Acute Kidney Injury on Chronic Kidney Disease Stage III with Hyperkalemia # Type II Diabetes Mellitus and Peripheral Arterial Disease complicated by Right Foot Wound with Osteomyelitis # Chronic Pain Syndrome # Hypertension HOSPITAL COURSE: Mr. Rhett Ayers is a 46 year old male with a past medical history significant for type 2 diabetes mellitus, hypertension, and chronic pain syndrome who was admitted to the [facility] on 02/12/2022 due to hyperkalemia. He was admitted to the Medicine service. He was found to have a slightly elevated potassium level, for which he received IV hydration and kayexalate. Nephrology was consulted, and he was evaluated by Dr. Ferguson. Given his improvement and the fact that he receives q3-day blood work currently for his IV antibiotics, he felt that he was safe to be discharged home with continued close outpatient follow-up between himself and Dr. Olivera. He cleared him for discharge with an additional dose of Lokelma prior to discharge. Dr. Fowler was consulted regarding his foot wound and he recommended outpatient follow-up at the wound healing center on 02/17/2022. On 02/13/2022, he was seen on rounds and deemed medically stable for discharge. He was discharged with instructions to schedule follow-up appointments with his PCP (Dr. Olivera), with General Surgery/Wound Healing (Dr. Fowler), and with Nephrology (Dr. Ferguson). He and his family members were given the opportunity to ask questions and reported no further questions. Furthermore, all questions were answered to the best of my ability. Today, I personally spent 20 minutes with him, of which greater than 50% of the time was spent in patient education, counseling, and coordination of care as described above. Vital Signs/Physical Exam: Temp Pulse Resp BP Pulse Ox 98.7 F 73 16 135/60 96 02/13/22 16:00 02/13/22 16:00 02/13/22 17:46 02/13/22 16:00 02/13/22 17:46 General: Alert, In no apparent distress, Oriented x3 HEENT: Atraumatic, Mucous membr. moist/pink, EOMI, Sclerae nonicteric Neck: JVD not distended Respiratory: Clear to auscultation bilaterally, Normal air movement Cardiovascular: No edema, Regular rate/rhythm, Normal S1 S2, No gallops, No rubs, No murmurs Gastrointestinal: Normal bowel sounds, Soft and benign, Non-distended, No tenderness, No rebound, No guarding Musculoskeletal: No clubbing Integumentary: No rashes, Other (Clean wound on the dorsum of the right foot. No warmth, erythema, or purulent drainage.) Neurological: Normal speech, Cranial nerves 3-12 intact, Normal affect Laboratory Data at Discharge: WBC 7.10 K/uL (4.3-10.9) 02/13/22 04:33 Hgb 7.6 g/dL (13.6-17.9) L D 02/13/22 04:33 Hct 23.1 % (39.6-49.0) L 02/13/22 04:33 Plt Count 231 K/uL (152-406) 02/13/22 04:33 PT 11.6 SECONDS (9.5-12.5) 02/12/22 17:08 INR 1.05 02/12/22 17:08 Sodium 138 mmol/L (136-145) 02/13/22 04:33 Potassium 5.4 mmol/L (3.5-5.1) H 02/13/22 04:33 BUN 24 mg/dL (7-18) H 02/13/22 04:33 Creatinine 1.46 mg/dL (0.70-1.30) H 02/13/22 04:33 Glucose 99 mg/dL (74-106) 02/13/22 04:33 Magnesium 1.7 mg/dL (1.6-2.4) 02/12/22 16:06 Home Medications: Gabapentin [Neurontin] 800 mg PO Q8H 04/02/19 Fluoxetine HCl [Prozac] 1 cap PO DAILY 12/20/20 Morphine *Extended Release* [MS Contin*] 1 tab PO DAILY 12/20/20 Carvedilol [Coreg] 2 tab PO BID 01/05/22 Hydrocodone Bit/Acetaminophen [Hydrocodon-Acetaminophn 10-325] 1 tab PO Q6H 01/05/22 Tizanidine HCl [Zanaflex] 1 tab PO Q6HP PRN 02/12/22 Physician Discharge Instructions: 1. Please call and schedule follow-up appointment with your PCP (Dr. Olivera) in 3-5 days -He will continue to check your blood work every 3 days while on the IV antibiotics for your foot infection 2. Please attend your follow-up appointment with Dr. Fowler at the wound healing center on 02/17/2022 3. Please call and schedule follow-up appointment with your Drophammer Operator (Dr. Ferguson) in 3-5 days Diet: Renal Activity: Ad ethan Followup: Michael Ferguson DO [ACTIVE - CAN ADMIT] - Angelo Fowler MD [ACTIVE - CAN ADMIT] - Giuseppe Olivera DO [ACTIVE - CAN ADMIT] - Time spent managing pt's care (in minutes): 20
[2022-02-13] MEDS ORDERED: SODIUM ZIRCONIUM CYCLOSILICATE 10 GM/PKT PO ONE (19:00)
--- NOTE | 2022-02-13 20:23 | CON ---
Date of Consultation: 02/13/2022 Diagnosis: Nonhealing wound in the right foot area. History Of Present Illness: This is a case of a 46-year-old patient known to us due to history of ne crotic wound on the right foot area. He says he has not been able to follow with us. Recently he ca me because he was doing some vascular workup and was found to have hyperkalemia. The patient was adm itted and the primary doctor requested us to evaluate the right foot wound. He denies any trauma. Ted childs stated his is doing dressing changes wet-to-dry all this time. Medications: Reviewed including Coreg, Santyl, Zanaflex, and Neurontin. Past Medical History: Includes diabetes, gastric ulcers, and anemia. Past Surgical History: Include gallbladder, knee surgeries, and once again debridement of the right foot. Family History: Includes diabetes. Social History: He does not smoke. He does not drink alcohol. Review of Systems: No nausea, no vomiting, no fever. Foot as per H and P. 10 points otherwise unremarkable. Physical Examination: General: The patient is awake, alert, and in no distress. Eye: Pupils are equal and reactive. Anicteric. Neck: Supple. Chest: Clear. Heart: S1, S2. Abdomen: Soft and depressible. Extremities: Good capillary refill. There is an open ulcer wound on the dorsum of the foot, approxi mately 5 cm. There is no bone or tendon exposed. Good granulation tissue present. Some fibrin mixe d with normal granulation tissue with no cellulitis present. No fluctuance seen. No crepitus. Laboratory Data: Blood work reviewed. Plan: Continue Santyl. We encouraged him to come to the [facility] this Wednesday morning f or followup. Diabetic shoes. It is important that he control his sugar. HM/MODL Voice ID: [id number] Report ID: [id number]
--- NOTE | 2022-02-13 22:28 | P.CNS ---
Date of Consult: 02/13/22 Reason for Consult: Hyperkalemia Requesting Physician: Larry Jones Primary Care Provider: Dr. Olivera Chief Complaint: Hyperkalemia, CKD, foot ulcer History of Present Illness: 46-year-old male with history of dsl-yszbbnv-[id number] diabetes, CKD 3, hypertension, GERD was scheduled for a angiogram of the right lower extremity given a chronic wound that has been present. Patient has been on antibiotics with vancomycin/Levaquin for the last approximately 4 weeks and is due to continue for total of 6 weeks for this diabetic ulceration to the dorsum of his right foot. He had labs performed prior to the procedure which demonstrated an elevated potassium level, at that time he was referred to the emergency department. He had his labs repeated in the emergency department his potassium was 5.6, creatinine 1.63, GFR 52, BUN 22 hemoglobin is 8.3 hematocrit 24.9. Patient was given insulin, dextrose, calcium gluconate, albuterol, Lasix in ED. ED provider wishes to admit under observation for further evaluation and management of hyperkalemia, diabetic foot ulceration. [facility] 15:40 This 46 yrs old Male presents to ER via Other with complaints of Abnormal labs. 15:40 Patient presents to ED after being referred by DR Erwin for elevated serum potassium. Patient reports he was scheduled for right leg stents to be placed when blood work showed elevated potassium level. Patient with chronic wound to right foot and is currently receiving IV Vancomycin and Levofloxacin antibiotics. Allergies No Known Allergies Allergy (Verified 08/02/19 10:37) Home medications list reviewed: Yes Home Medications: Gabapentin [Neurontin] 800 mg PO Q8H 04/02/19 Fluoxetine HCl [Prozac] 1 cap PO DAILY 12/20/20 Morphine *Extended Release* [MS Contin*] 1 tab PO DAILY 12/20/20 Carvedilol [Coreg] 2 tab PO BID 01/05/22 Hydrocodone Bit/Acetaminophen [Hydrocodon-Acetaminophn 10-325] 1 tab PO Q6H 01/05/22 Tizanidine HCl [Zanaflex] 1 tab PO Q6HP PRN 02/12/22 - Past Medical/Surgical History Diabetic: Yes -: Chronic back pain -: DM II Dx age 22 -: Gastric ulcer -: Anemia -: HTN -: CKD II with proteinuria/ Hx MIGUEL followed by Dr. Ferguson -: R knee surgery -: Gastric bypass -: Phimosis skin graft -: Circumcision -: Jackie -: rt knee surg Psychosocial/ Personal History: Patient lives at home with his , is disabled - Family History Mother Medical History: Heart disease, Diabetes Notes: of cirrrosis of liver Father Medical History: Diabetes Brother Medical History: Hypertension, Diabetes Notes: at 39yr old from "natural causes" - Social History Smoking Status: Unknown if ever smoked Alcohol use: No CD- Drugs: No Caffeine use: Yes Place of Residence: Home Review of Systems 10-point ROS is otherwise unremarkable Musculoskeletal: Foot Pain Physical Examination Temp Pulse Resp BP Pulse Ox 98.7 F 73 16 135/60 96 02/13/22 16:00 02/13/22 16:00 02/13/22 17:46 02/13/22 16:00 02/13/22 17:46 General: In no apparent distress, Oriented x3, Cooperative HEENT: Atraumatic Neck: Supple Respiratory: Clear to auscultation bilaterally Cardiovascular: No edema, Regular rate/rhythm Gastrointestinal: Soft and benign, Non-distended Musculoskeletal: No clubbing, No contractures Integumentary: No rashes, No cyanosis Neurological: Normal speech Blood work reviewed in the chart. Imagings Data: [facility] EXAM DESCRIPTION: US - Renal Ultrasound-Complete - 09/11/2021 1:55 am CLINICAL HISTORY: arf Flank pain COMPARISON: Renal Ultrasound-Complete dated 12/20/2020 FINDINGS: Both kidneys are normal in size, shape and echotexture. The right kidney measures 10.3 x 6.4 x 4.7 cm. No hydronephrosis, focal mass or perinephric fluid. The left kidney measures 10.8 x 6.7 x 5.3 cm. No hydronephrosis, focal mass or perinephric fluid. The urinary bladder is incompletely distended without gross abnormality seen. IMPRESSION: Unremarkable renal sonogram. Conclusions/Impression: Stage I MIGUEL due to hypovolemia CKD III -No NSAIDs -Encourage oral intake Hyperkalemia -Lokelma as ordered -Low potassium diet HTN with CKD -Restart Coreg DM II with CKD & Polyneuropathy -RISS -Continue Gabapentin Anemia in chronic illness -Monitor H&H Case reviewed with Dr. Jones Thank you kindly for the consultation Case reviewed with PCP, Dr. Olivera Will follow BMP as an outpt and adjust medications accordingly.
--- NOTE | 2022-02-14 17:43 | EKG ---
Test Date: 2022-02-12 Test Time: 16:13:49 Criminalist Technician: ANAHI MEASUREMENT RESULTS: Intervals: Rate: 74 CA: 170 QRSD: 94 QT: 374 QTc: 415 [place]: P: 28 CA: 170 QRS: 46 T: 27 INTERPRETIVE STATEMENTS: Normal sinus rhythm Normal ECG Compared to ECG 01/23/2022 13:35:06 No significant changes Electronically Signed On 02-14-22 17:40:22 OPHTHALMIC SURGICAL ASSISTANT by Trell Erwin
== END 2022-02-13 19:30 | disposition home or self-care (01) ==
LOC: ER 15:07 → ERHOLD 18:47 → 4TH 19:56
PROVIDERS: ADMIT Internal Medicine; ATTEND Internal Medicine
DX: N17.9 Acute kidney failure, unspecified (principal); E87.5 Hyperkalemia; E11.22 Type 2 diabetes mellitus with diabetic chronic kidney disease; I73.9 Peripheral vascular disease, unspecified; S91.301A Unspecified open wound, right foot, initial encounter; M86.9 Osteomyelitis, unspecified; I12.9 Hypertensive chronic kidney disease with stage 1 through stage 4 chronic kidney disease, or unspecified chronic kidney disease; N18.30 Chronic kidney disease, stage 3 unspecified; G89.29 Other chronic pain; E86.1 Hypovolemia; D63.1 Anemia in chronic kidney disease; Z20.822 Contact with and (suspected) exposure to COVID-19
CPT/HCPCS: 96365; 96361; 93005; 85025 ×2; 81001; 80048 ×2; 36415; 83735; 84132; 85610; 82947 ×5; 83036; 96375; 99285; 87811; J1815 ×2; J1940; J1644 ×2; J7613; J3590; J3370 ×2; J0610; J7040 ×2; J7030 ×3; J2405; G0378 ×3

== ENCOUNTER 2022-04-14 01:31 | Emergency (ER) | payer OTHER ==
--- OUTSIDE RECORDS SUMMARY | 2022-04-14 01:42 | XMS REPORT | Continuity of Care Document ---
:1975 Author Organization [facility] t Address [address] [address]. [address] [place] [address] Care Team Providers Name Role Phone Caroline Valle Primary Care Physician MIRA BEDOYA Attending Clinician Unavailable GWENDOLYN CROOKS Attending Clinician Unavailable HANK LEPE Attending Clinician Unavailable LAB90 Attending Clinician Unavailable KEITH SCHWARTZ Attending Clinician Unavailable CAROLINE VALLE Attending Clinician Unavailable Hank Lepe MD Attending Clinician [phone] HANK LEPE Attending Clinician Unavailable Hank Lepe MD Attending Clinician [phone] Yas Morataya MD Attending Clinician [phone] Zoya Lux CRNA Attending Clinician [phone] RUPINDER JOHNSON Attending Clinician Unavailable EMIGDIO ALCALA Attending Clinician Unavailable LAB39 Attending Clinician Unavailable SURENDRA SANDOVAL Attending Clinician Unavailable Doctor Unassigned, [place] Attending Clinician Unavailable ALMAS JACOB Attending Clinician Unavailable LAB47 Attending Clinician Unavailable DIEGO LORENZO Attending Clinician Unavailable Almas Jacob MD Attending Clinician ED SAMS Attending Clinician Unavailable Denis SCRUGGS, Evie Enamorado Attending Clinician [phone] EVIE GUSMAN Attending Clinician Unavailable ANDRÉS CHAUDHRY Attending Clinician Unavailable Andrés Chaudhry MD Attending Clinician Renetta ZAVALETA, Mickie Dejesus Attending Clinician BROOKS GIRALDO Attending Clinician Unavailable BROOKS GIRALDO Attending Clinician Unavailable Jelly Yanes Attending Clinician Herrera Yoo DO Attending Clinician DIANNA JOHNSON Attending Clinician Unavailable SHAHEEN CACERES Attending Clinician Unavailable Neftali Parker MD Attending Clinician RYDER NATHAN Attending Clinician Unavailable JASON MONTAÑO Attending Clinician Unavailable Dianna Johnson MD Attending Clinician FIDEL GARCIA Attending Clinician Unavailable Guzman Oliva DO Attending Clinician Fidel Garcia MD Attending Clinician MARY ESPANA Attending Clinician Unavailable Diego Lorenzo MD Attending Clinician AMARJIT LEO Attending Clinician Unavailable NEY CARRILLO Attending Clinician Unavailable Ryder Nathan MD Attending Clinician Caroline Palacios Attending Clinician MD GEOVANNI Attending Clinician Unavailable ELSENBROOK, CARMENCITA K Attending Clinician Unavailable LAB45 Attending Clinician Unavailable Amarjit Leo MD Attending Clinician Jack Montaño Attending Clinician Unavailable JOSE GUEVARA Attending Clinician Unavailable TEODORO HEARD Attending Clinician Unavailable Felicia Bar Attending Clinician Sharita Sanchez DO Attending Clinician Félix SCRUGGS, Teodoro Friedman Attending Clinician Kim Ba NP Attending Clinician Cici Watson MD Attending Clinician CICI WATSON Attending Clinician Unavailable HERRERA YOO Attending Clinician Unavailable Nurse, Adc Pob Immunization Attending Clinician Unavailable LOS MARRERO Attending Clinician Unavailable Lisha Portillo MD Attending Clinician LISHA PORTILLO Attending Clinician Unavailable MAYA LANGLEY Attending Clinician Unavailable HOMA BRANTLEY Attending Clinician Unavailable HANK LEPE Admitting Clinician Unavailable HERRERA YOO Admitting Clinician Unavailable [...] Policy Number Effective Date Expiration Date S devin AETNA NIDA GOLD 9 [id number] 2022 [facility] ON 00:00:00 [facility] A[facility] - [id number] [facility] PL[facility] EPO [id number] 2022-02-082022-03-03 - AETNA 00:00:00 00:00:00 PPO/EPO - BCBS [id number] [facility] 2 [id number] 2021 [facility] 00:00:00 ADMINISTRATORS BCBS 2 [id number] 2021 00:00:00 [place] - OUT [id number] 2008 [facility] 00:00:00 Problems Condition Condition Condition Status Onset Resolution Last Treating Co mments Source Name Details Category Date Date Treatment Clinician Date Diabetes Diabetes Disease Active Kelse y mellitus mellitus 1-16 Seybol d type 2 in type 2 in 00:00: - obese obese 00 Externa l 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-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 ulcer of 00:00: - left eye left eye 00 Optometric Tech a l Type 2 Type 2 Disease [...] depressive 1-27 Se ybold disorder disorder 00:00: - 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 00 Ex terna remission remission l Iron Iron Disease Active [place] deficiency deficiency 1-27 Se ybold anemia anemia 00:00: - secondary secondary 00 Exte rna to to l inadequate inadequate dietary dietary iron iron intake intake Intestinal Intestinal Disease Active K elsey malabsorpt malabsorpt 1-27 Se ybold ion ion 00:00: - 00 Externa l Chronic Chronic Disease Active [place] pain pain 1-27 Seybold syndrome - syndrome - 00:00: - Controlled Controlled 00 Ex terna l Slow Slow Disease Active [place] transit transit 03-06 Seybold constipati constipati 00:00: - on - Not on - Not 00 Optometric Tech a Controlled Controlled l Acquired Acquired Disease [...] 00:00: - of right of right 00 Optometric Tech a knee - Not knee - Not [...] kidney 2-06 ity of injury) injury) 00:00: [address] Obesity Obesity Disease Active 2020-02 [facility] (BMI (BMI 2-06 ity of 30-39.9) 30-39.9) 00:00: [address] Primary Primary Disease Active 2020-02 [facility] hypertensi hypertensi 2- it y of on on 00:00: [place] 00 [facility] Branch Type 2 Type 2 Disease Active 2020-02 [facility] diabetes diabetes 03-16 ity of mellitus mellitus 00:00: [place] without without 00 Medical complicati complicati Br anch on, on, without without long-term long-term current current use of use of insulin insulin Elevated Elevated Disease Active 2020-02 Unive rs brain brain 03-16 ity of natriureti [place] peptide c peptide 00 Medi damien (BNP) (BNP) Branch level level Anemia Anemia Disease Active 2020-02 Univers 2-06 ity of 00:00: [place] 00 Medical Branch Hyperkalem Hyperkalem Disease Active 2020-02 U nivers ia ia 03-15 ity of 00:00: [address] Branch Allergies, Adverse Reactions, Alerts Allergy Allergy Status Severity Reaction(s) Onset Inactive Treating Comm ents Source Name Type Date Date Clinician Amlodipi Drug Active [facility] AMLODIPI Allergy Active [facility] Fd&C Propensi Active 2021-02 Other [place] Blue ty to 02-16 reaction( Jose Antonio #1-Fd&C adverse 00:00: s): - Yellow reaction 00 Hallucina Exter na #10-Morp s tions l chandrika Amlodipi Propensi Active Swelling Wanda ey ne ty to 09-29 Seybold adverse 00:00: - reaction 00 Externa s l No Known DA Active [facility] Drug 4-27 [place] Intolera 00:00: d nces 00 [facility] NO KNOWN Drug Active [facility] ALLERGIE Class ity of S [facility] Social History Social Habit Start Date Stop Date Quantity Comments Source History SDOH [facility] Alcohol Std Drinks Medica l Center History SDOH [facility] Alcohol Binge Medical Iza[facility] History SDOH [facility] Alcohol Comment Medical C enter Exposure to 2022-02-22 2022-03-[address] [facility] SARS-CoV-2 (event) 00:00:00 11:41:00 Medica l Center Alcohol intake 2022-03-04 2022-03-04 Ex-drinker JAMEY Shah es 00:00:00 00:00:00 (finding) Medical Center History SDOH 2022-03-04 2022-03-04 1 JAMEY Ledesma Alcohol Frequency 00:00:00 00:00:00 Medical Center Tobacco use and 2022-03-04 2022-03-04 Never used JAMEY Cordoba exposure 00:00:00 00:00:00 Medical Center Sex [birth year] At [birth year] JAMEY Cordoba 00:00:00 00:00:00 [facility] Center Smoking Status Start Date Stop Date Source Tobacco smoking consumption unknown [facility] Never smoked tobacco [place] Seyb old - External Medications Ordered Filled Start Stop Current Ordering Indication Dosage Frequency Signature Comments Components Source Medication Medication Date Date Medication? Clinician (SIG) Name Name HYDROcodone Yes [id number] 1{tbl} Q.25D Take 1 [place] -Acetaminop 2-13 tablet by Sey bold hen 10-325 00:00: mouth - MG oral 00 every 6 Externa Tablet hours as l needed for pain Morphine Yes [id number] 1{tbl} Take 1 [place] Sulfate ER 2-13 tablet by Seyb old 15 MG oral 00:00: mouth - Tab CR 00 every 24 Externa hours l Baclofen 10 2022- No TAKE ONE K elsey MG oral 2-08 02-08 TABLET BY Seybol d Tablet 00:00: 00:00 MOUTH - 00 :00 THREE Externa TIMES A l DAY NEEDED FOR M USCLE SPASMS OR PAIN Voriconazol 2022- Yes 200mg Take 200 [place] e 200 MG 2-03 02-25 mg by Seybold oral Tablet 00:00: 05:59 mouth 2 - 00 :00 times Externa daily l Cyclobenzap Yes 10mg Q.[id number] Take 1 [place] rine HCl 10 1-30 [id number] tablet (10 Seybold MG oral 00:00: 3D mg total) - Tablet 00 by mouth 3 Externa times l daily as needed for muscle spasms Atropine 2022- Yes 1[drp] Inject 1 Cole sey Sulfate 1 % 1-26 drop into Sey bold ophthalmic 00:00: the eye 2 - Solution 00 times Externa daily l cyanocobala Yes 1000ug QD Take 1,[address] [facility] min 1-25 mcg by [facility] (vitamin 17:40: mouth Medical B-12) 1000 26 daily. Center MCG tablet prednisoLON Yes 1[drp] Q.25D Apply [address] [facility] acetate 1-25 drop to [facility] (Pred 17:40: eye(s) 4 Medical Forte) 1 % 26 (four) Center ophthalmic times suspension daily. TiZANidine Yes 6mg Q.25D Take [address] (ZANAFLEX) 1-25 by mouth 4 Shad es 6 MG 17:40: (four) Medical capsule 26 times Center daily. moxifloxaci Yes 1[drp] Q.[id number] Apply [address] [facility] (VIGAMOX) 1-25 [id number] drop to [facility] 0.5 % 17:40: 3D eye(s) 3 Medical ophthalmic 26 (three) Center solution times daily. HYDROcodone Yes 1{tbl} Take [address] -acetaminop 1-25 tablet by Shad cardoso hen (NORCO 17:40: mouth Medica l 10-325) 26 every 6 Center 10-325 mg (six) per tablet hours as needed for Pain. morphine Yes severe 15mg QD Take [address] (MS CONTIN) 1-25 chronic by mouth L ukes 15 MG 12 hr 17:40: pain daily. Medi damien tablet 26 requiring Center long-term opioid treatment naloxone Yes 1{spray [address] [address] (Narcan) 4 1-25 } Nasal [facility] mg/actuatio 17:40: route as Me dical n [place] 26 needed for Center Opioid Reversal. fluconazole Yes 150mg QD Take [address] (DIFLUCAN) 1-25 mg by [facility] 150 MG 17:40: mouth Medical tablet 26 daily. Center multivitami Yes 1{capsu QD Take [address] n capsule 1-25 le} capsule by Luke s 17:40: mouth Medical 26 daily. Center carvediloL Yes 12.5mg Take 12.[address] (COREG) 1-25 mg by [facility] 12.5 MG 17:40: mouth 2 Medical tablet 26 (two) Center times daily with breakfast and dinner. magnesium Yes 64mg QD Take [address] chloride 1-25 by mouth [facility] (Mag 64) 64 17:40: daily. Medi damien mg DR 26 Center tablet FLUoxetine 0 Yes 40mg QD Take [address] (PROzac) 40 1-25 by mouth Luke s MG capsule 17:40: daily. Medic al 26 Center doxepin Yes 75mg QD Take [address] (SINEquan) 1-25 by mouth [facility] 75 MG 17:40: nightly. Medical capsule 26 Center gabapentin Yes 800mg Q.76220996 Take [address] (NEURONTIN) 1-25 [id number] mg by L ukes 800 MG 17:40: 3D mouth 3 Medical tablet 26 (three) Center times daily. ondansetron Yes 4mg Take [address] (ZOFRAN) 4 1-25 by mouth 3 Shad es MG tablet 17:40: (three) Medic al 26 times Center daily as needed for Nausea. senna Yes constipatio 1{tbl} QD Take [address] (SENOKOT) 1-25 n tablet by [facility] 8.6 mg 17:40: mouth Medical tablet 26 daily. Center cyanocobala Yes 1000ug QD Take 1,[address] min 1-25 mcg by [facility] (vitamin 17:40: mouth Medical B-12) 1000 26 daily. Center MCG tablet prednisoLON Yes 1[drp] Q.25D Apply [address] [facility] acetate 1-25 drop to [facility] (Pred 17:40: eye(s) 4 Medical Forte) 1 % 26 (four) Center ophthalmic times suspension daily. TiZANidine Yes 6mg Q.25D Take [address] (ZANAFLEX) 1-25 by mouth 4 Shad es 6 MG 17:40: (four) Medical capsule 26 times Center daily. moxifloxaci 0 Yes 1[drp] Q.[id number] Apply [address] [facility] (VIGAMOX) 1-25 [id number] drop to [facility] 0.5 % 17:40: 3D eye(s) 3 Medical ophthalmic 26 (three) Center solution times daily. HYDROcodone Yes 1{tbl} Take [address] -acetaminop 1-25 tablet by Shad shaver (NORCO 17:40: mouth Medica l 10-325) 26 every 6 Center 10-325 mg (six) per tablet hours as needed for Pain. morphine Yes severe 15mg QD Take [address] (MS CONTIN) 1-25 chronic by mouth L ukes 15 MG 12 hr 17:40: pain daily. Medi damien tablet 26 requiring Center long-term opioid treatment naloxone Yes 1{spray [address] [facility] [address] (Narcan) 4 1-25 } Nasal [facility] mg/actuatio 17:40: route as Me dical n [place] 26 needed for Center Opioid Reversal. fluconazole Yes 150mg QD Take [address] (DIFLUCAN) 1-25 mg by [facility] 150 MG 17:40: mouth Medical tablet 26 daily. Center multivitami Yes 1{capsu QD Take [address] n capsule 1-25 le} capsule by Luke s 17:40: mouth Medical 26 daily. Center carvediloL Yes 12.5mg Take 12.[address] (COREG) 1-25 mg by [facility] 12.5 MG 17:40: mouth 2 Medical tablet 26 (two) Center times daily with breakfast and dinner. magnesium Yes 64mg QD Take [address] chloride 1-25 by mouth [facility] (Mag 64) 64 17:40: daily. Medi damien mg DR 26 Center tablet FLUoxetine Yes 40mg QD Take [address] (PROzac) 40 1-25 by mouth Luke s MG capsule 17:40: daily. Medic al 26 Center doxepin Yes 75mg QD Take [address] (SINEquan) 1-25 by mouth [facility] 75 MG 17:40: nightly. Medical capsule 26 Center gabapentin Yes 800mg Q.08500997 Take [address] (NEURONTIN) 1-25 [id number] mg by L ukes 800 MG 17:40: 3D mouth 3 Medical tablet 26 (three) Center times daily. ondansetron Yes 4mg Take [address] (ZOFRAN) 4 1-25 by mouth 3 Shad es MG tablet 17:40: (three) Medic al 26 times Center daily as needed for Nausea. senna Yes constipatio 1{tbl} QD Take [address] (SENOKOT) 1-25 n tablet by [facility] 8.6 mg 17:40: mouth Medical tablet 26 daily. Center cyanocobala Yes 1000ug QD Take 1,[address] min 1-25 mcg by [facility] (vitamin 17:40: mouth Medical B-12) 1000 26 daily. Center MCG tablet prednisoLON Yes 1[drp] Q.25D Apply [address] [facility] acetate 1-25 drop to [facility] (Pred 17:40: eye(s) 4 Medical Forte) 1 % 26 (four) Center ophthalmic times suspension daily. TiZANidine Yes 6mg Q.25D Take [address] (ZANAFLEX) 1-25 by mouth 4 Shad es 6 MG 17:40: (four) Medical capsule 26 times Center daily. moxifloxaci Yes 1[drp] Q.[id number] Apply [address] [facility] (VIGAMOX) 1-25 [id number] drop to [facility] 0.5 % 17:40: 3D eye(s) 3 Medical ophthalmic 26 (three) Center solution times daily. HYDROcodone Yes 1{tbl} Take [address] -acetaminop 1-25 tablet by Shad es hen (NORCO 17:40: mouth Medica l 10-325) 26 every 6 Center 10-325 mg (six) per tablet hours as needed for Pain. morphine Yes severe 15mg QD Take [address] (MS CONTIN) 1-25 chronic by mouth L ukes 15 MG 12 hr 17:40: pain daily. Medi damien tablet 26 requiring Center long-term opioid treatment naloxone Yes 1{spray [address] [facility] (Narcan) 4 1-25 } Nasal [facility] mg/actuatio 17:40: route as Me dical n [place] 26 needed for Center Opioid Reversal. fluconazole Yes 150mg QD Take [address] (DIFLUCAN) 1-25 mg by [facility] 150 MG 17:40: mouth Medical tablet 26 daily. Center multivitami Yes 1{capsu QD Take [address] n capsule 1-25 le} capsule by Luke s 17:40: mouth Medical 26 daily. Center moxifloxaci Yes 1[drp] Q.10798710 Apply [address] [facility] (VIGAMOX) 1-25 [id number] drop to [facility] 0.5 % 17:40: 3D eye(s) 3 Medical ophthalmic 26 (three) Center solution times daily. HYDROcodone Yes 1{tbl} Take [address] -acetaminop 1-25 tablet by Shad shaver (NORCO 17:40: mouth Medica l 10-325) 26 every 6 Center 10-325 mg (six) per tablet hours as needed for Pain. morphine Yes severe 15mg QD Take [address] (MS CONTIN) 1-25 chronic by mouth L ukes 15 MG 12 hr 17:40: pain daily. Medi damien tablet 26 requiring Center long-term opioid treatment naloxone Yes 1{spray [address] [facility] (Narcan) 4 1-25 } Nasal [facility] mg/actuatio 17:40: route as Me dical n [place] 26 needed for Center Opioid Reversal. carvediloL Yes 12.5mg Take 12.[address] (COREG) 1-25 mg by [facility] 12.5 MG 17:40: mouth 2 Medical tablet 26 (two) Center times daily with breakfast and dinner. fluconazole Yes 150mg QD Take [address] (DIFLUCAN) 1-25 mg by [facility] 150 MG 17:40: mouth Medical tablet 26 daily. Reform multivitami Yes 1{capsu QD Take [address] n capsule 1-25 le} capsule by Luke s 17:40: mouth Medical 26 daily. Center carvediloL Yes 12.5mg Take 12.[address] (COREG) 1-25 mg by [facility] 12.5 MG 17:40: mouth 2 Medical tablet 26 (two) Center times daily with breakfast and dinner. magnesium Yes 64mg QD Take [address] chloride 1-25 by mouth [facility] (Mag 64) 64 17:40: daily. Medi damien mg DR 26 Center tablet FLUoxetine 0 Yes 40mg QD Take [address] (PROzac) 40 1-25 by mouth Luke s MG capsule 17:40: daily. Medic al 26 Center doxepin 2022-0 Yes 75mg QD Take [address] (SINEquan) 1-25 by mouth [facility] 75 MG 17:40: nightly. Medical capsule 26 Center gabapentin 0 Yes 800mg Q.[id number] Take [address] (NEURONTIN) 1-25 [id number] mg by L ukes 800 MG 17:40: 3D mouth 3 Medical tablet 26 (three) Center times daily. ondansetron 0 Yes 4mg Take [address] (ZOFRAN) 4 1-25 by mouth 3 Shad es MG tablet 17:40: (three) Medic al 26 times Center daily as needed for Nausea. senna 0 Yes constipatio 1{tbl} QD Take [address] (SENOKOT) 1-25 n tablet by [facility] 8.6 mg 17:40: mouth Medical tablet 26 daily. Center cyanocobala 0 Yes 1000ug QD Take 1,[address] min 1-25 mcg by [facility] (vitamin 17:40: mouth Medical B-12) 1000 26 daily. Center MCG tablet magnesium 0 Yes 64mg QD Take [address] chloride 1-25 by mouth [facility] (Mag 64) 64 17:40: daily. Medi damien mg DR 26 Center tablet prednisoLON 0 Yes 1[drp] Q.25D Apply [address] [facility] acetate 1-25 drop to [facility] (Pred 17:40: eye(s) 4 Medical Forte) 1 % 26 (four) Center ophthalmic times suspension daily. TiZANidine 0 Yes 6mg Q.25D Take [address] (ZANAFLEX) 1-25 by mouth 4 Shad es 6 MG 17:40: (four) Medical capsule 26 times Center daily. FLUoxetine 2022-0 Yes 40mg QD Take [address] (PROzac) 40 1-25 by mouth Luke s MG capsule 17:40: daily. Medic al 26 Center doxepin 2022-0 Yes 75mg QD Take [address] (SINEquan) 1-25 by mouth [facility] 75 MG 17:40: nightly. Medical capsule 26 Center gabapentin Yes 800mg Q.[id number] Take [address] (NEURONTIN) 1-25 [id number] mg by L ukes 800 MG 17:40: 3D mouth 3 Medical tablet 26 (three) Center times daily. ondansetron Yes 4mg Take [address] (ZOFRAN) 4 1-25 by mouth 3 Shad es MG tablet 17:40: (three) Medic al 26 times Center daily as needed for Nausea. senna Yes constipatio 1{tbl} QD Take [address] (SENOKOT) 1-25 n tablet by [facility] 8.6 mg 17:40: mouth Medical tablet 26 daily. Center cyanocobala Yes 1000ug QD Take 1,[address] min 1-25 mcg by [facility] (vitamin 17:40: mouth Medical B-12) 1000 26 daily. Center MCG tablet prednisoLON Yes 1[drp] Q.25D Apply [address] [facility] acetate 1-25 drop to [facility] (Pred 17:40: eye(s) 4 Medical Forte) 1 % 26 (four) Center ophthalmic times suspension daily. TiZANidine Yes 6mg Q.25D Take [address] (ZANAFLEX) 1-25 by mouth 4 Shad es 6 MG 17:40: (four) Medical capsule 26 times Center daily. moxifloxaci Yes 1[drp] Q.[id number] Apply [address] [facility] (VIGAMOX) 1-25 [id number] drop to [facility] 0.5 % 17:40: 3D eye(s) 3 Medical ophthalmic 26 (three) Center solution times daily. HYDROcodone 0 Yes 1{tbl} Take [address] -acetaminop 1-25 tablet by Shad es hen (NORCO 17:40: mouth Medica l 10-325) 26 every 6 Center 10-325 mg (six) per tablet hours as needed for Pain. morphine Yes severe 15mg QD Take [address] (MS CONTIN) 1-25 chronic by mouth L ukes 15 MG 12 hr 17:40: pain daily. Medi damien tablet 26 requiring Center long-term opioid treatment naloxone Yes 1{spray [address] [facility] (Narcan) 4 1-25 } Nasal [facility] mg/actuatio 17:40: route as Me dical n [place] 26 needed for Center Opioid Reversal. fluconazole Yes 150mg QD Take [address] (DIFLUCAN) 1-25 mg by [facility] 150 MG 17:40: mouth Medical tablet 26 daily. Center multivitami Yes 1{capsu QD Take [address] n capsule 1-25 le} capsule by Luke s 17:40: mouth Medical 26 daily. Center carvediloL Yes 12.5mg Take 12.[address] (COREG) 1-25 mg by [facility] 12.5 MG 17:40: mouth 2 Medical tablet 26 (two) Center times daily with breakfast and dinner. magnesium Yes 64mg QD Take [address] chloride 1-25 by mouth [facility] (Mag 64) 64 17:40: daily. Medi damien mg DR 26 Center tablet FLUoxetine Yes 40mg QD Take [address] (PROzac) 40 1-25 by mouth Luke s MG capsule 17:40: daily. Medic al 26 Center doxepin Yes 75mg QD Take [address] (SINEquan) 1-25 by mouth [facility] 75 MG 17:40: nightly. Medical capsule 26 Center gabapentin Yes 800mg Q.[id number] Take [address] (NEURONTIN) 1-25 [id number] mg by L ukes 800 MG 17:40: 3D mouth 3 Medical tablet 26 (three) Center times daily. ondansetron Yes 4mg Take [address] (ZOFRAN) 4 1-25 by mouth 3 Shad es MG tablet 17:40: (three) Medic al 26 times Center daily as needed for Nausea. senna Yes constipatio 1{tbl} QD Take [address] (SENOKOT) 1-25 n tablet by [facility] 8.6 mg 17:40: mouth Medical tablet 26 daily. Reform cyanocobala Yes 1000ug QD Take 1,[address] min 1-25 mcg by [facility] (vitamin 17:40: mouth Medical B-12) 1000 26 daily. Center MCG tablet prednisoLON Yes 1[drp] Q.25D Apply [address] [facility] E acetate 1-25 drop to [facility] (Pred 17:40: eye(s) 4 Medical Forte) 1 % 26 (four) Center ophthalmic times suspension daily. TiZANidine Yes 6mg Q.25D Take [address] (ZANAFLEX) 1-25 by mouth 4 Shad es 6 MG 17:40: (four) Medical capsule 26 times Center daily. moxifloxaci Yes 1[drp] Q.[id number] Apply [address] n (VIGAMOX) 1-25 [id number] drop to [facility] 0.5 % 17:40: 3D eye(s) 3 Medical ophthalmic 26 (three) Center solution times daily. HYDROcodone Yes 1{tbl} Take [address] -acetaminop 1-25 tablet by Shad cardoso hen (NORCO 17:40: mouth Medica l 10-325) 26 every 6 Center 10-325 mg (six) per tablet hours as needed for Pain. morphine Yes severe 15mg QD Take [address] (MS CONTIN) 1-25 chronic by mouth L ukes 15 MG 12 hr 17:40: pain daily. Medi damien tablet 26 requiring Center long-term opioid treatment naloxone Yes 1{spray [address] [facility] (Narcan) 4 1-25 } Nasal [facility] mg/actuatio 17:40: route as Me dical n [place] 26 needed for Center Opioid Reversal. fluconazole Yes 150mg QD Take [address] (DIFLUCAN) 1-25 mg by [facility] 150 MG 17:40: mouth Medical tablet 26 daily. Center multivitami Yes 1{capsu QD Take [address] n capsule 1-25 le} capsule by Luke s 17:40: mouth Medical 26 daily. Center carvediloL Yes 12.5mg Take 12.[address] (COREG) 1-25 mg by [facility] 12.5 MG 17:40: mouth 2 Medical tablet 26 (two) Center times daily with breakfast and dinner. magnesium Yes 64mg QD Take [address] chloride 1-25 by mouth [facility] (Mag 64) 64 17:40: daily. Medi damien mg DR 26 Center tablet FLUoxetine Yes 40mg QD Take [address] (PROzac) 40 1-25 by mouth Luke s MG capsule 17:40: daily. Medic al 26 Center doxepin 0 Yes 75mg QD Take [address] (SINEquan) 1-25 by mouth [facility] 75 MG 17:40: nightly. Medical capsule 26 Center gabapentin Yes 800mg Q.[id number] Take [address] (NEURONTIN) 1-25 [id number] mg by L ukes 800 MG 17:40: 3D mouth 3 Medical tablet 26 (three) Center times daily. ondansetron Yes 4mg Take [address] (ZOFRAN) 4 1-25 by mouth 3 Shad es MG tablet 17:40: (three) Medic al 26 times Center daily as needed for Nausea. senna Yes constipatio 1{tbl} QD Take [address] (SENOKOT) 1-25 n tablet by [facility] 8.6 mg 17:40: mouth Medical tablet 26 daily. Center cyanocobala Yes 1000ug QD Take 1,[address] min 1-25 mcg by [facility] (vitamin 17:40: mouth Medical B-12) 1000 26 daily. Center MCG tablet prednisoLON Yes 1[drp] Q.25D Apply [address] E acetate 1-25 drop to [facility] (Pred 17:40: eye(s) 4 Medical Forte) 1 % 26 (four) Center ophthalmic times suspension daily. TiZANidine Yes 6mg Q.25D Take [address] (ZANAFLEX) 1-25 by mouth 4 Shad es 6 MG 17:40: (four) Medical capsule 26 times Center daily. moxifloxaci 0 Yes 1[drp] Q.[id number] Apply [address] n (VIGAMOX) 1-25 [id number] drop to [facility] 0.5 % 17:40: 3D eye(s) 3 Medical ophthalmic 26 (three) Center solution times daily. HYDROcodone 2023-0 Yes 1{tbl} Take [address] -acetaminop 1-25 tablet by Shad es hen (NORCO 17:40: mouth Medica l 10-325) 26 every 6 Center 10-325 mg (six) per tablet hours as needed for Pain. morphine Yes severe 15mg QD Take [address] (MS CONTIN) 1-25 chronic by mouth L ukes 15 MG 12 hr 17:40: pain daily. Medi [facility] tablet 26 requiring Center long-term opioid treatment naloxone Yes 1{spray [address] [facility] (Narcan) 4 1-25 } Nasal [facility] mg/actuatio 17:40: route as Me dical n [place] 26 needed for Center Opioid Reversal. fluconazole Yes 150mg QD Take [address] (DIFLUCAN) 1-25 mg by [facility] 150 MG 17:40: mouth Medical tablet 26 daily. Center multivitami Yes 1{capsu QD Take [address] n capsule 1-25 le} capsule by [facility] 17:40: mouth Medical 26 daily. Center carvediloL Yes 12.5mg Take 12.[address] [facility] (COREG) 1-25 mg by [facility] 12.5 MG 17:40: mouth 2 Medical tablet 26 (two) Center times daily with breakfast and dinner. magnesium Yes 64mg QD Take [address] [facility] [address] [facility] chloride 1-25 by mouth [facility] (Mag 64) 64 17:40: daily. Medi [facility] mg DR 26 Center tablet FLUoxetine Yes 40mg QD Take [address] (PROzac) 40 1-25 by mouth [facility] MG capsule 17:40: daily. Medic al 26 Center doxepin Yes 75mg QD Take [address] [facility] (SINEquan) 1-25 by mouth [facility] 75 MG 17:40: nightly. Medical capsule 26 Center gabapentin Yes 800mg Q.[id number] Take [address] [facility] (NEURONTIN) 1-25 [id number] mg by L [facility] 800 MG 17:40: 3D mouth 3 Medical tablet 26 (three) Center times daily. ondansetron Yes 4mg Take [address] [facility] (ZOFRAN) 4 1-25 by mouth 3 [facility] MG tablet 17:40: (three) Medic al 26 times Center daily as needed for Nausea. senna Yes constipatio 1{tbl} QD Take [address] (SENOKOT) 1-25 n tablet by [facility] 8.6 mg 17:40: mouth Medical tablet 26 daily. Center cyanocobala Yes 1000ug QD Take 1,[address] [facility] min 1-25 mcg by [facility] (vitamin 17:40: mouth Medical B-12) 1000 26 daily. Center MCG tablet prednisoLON Yes 1[drp] Q.25D Apply [address] [facility] E acetate 1-25 drop to [facility] (Pred 17:40: eye(s) 4 Medical Forte) 1 % 26 (four) Center ophthalmic times suspension daily. TiZANidine Yes 6mg Q.25D Take [address] [facility] (ZANAFLEX) 1-25 by mouth 4 Shad es 6 MG 17:40: (four) Medical capsule 26 times Center daily. moxifloxaci Yes 1[drp] Q.[id number] Apply [address] [facility] n (VIGAMOX) 1-25 [id number] drop to [facility] 0.5 % 17:40: 3D eye(s) 3 Medical ophthalmic 26 (three) Center solution times daily. HYDROcodone Yes 1{tbl} Take [address] [facility] [address] [facility] -acetaminop 1-25 tablet by Shad es hen (NORCO 17:40: mouth Medica l 10-325) 26 every 6 Center 10-325 mg (six) per tablet hours as needed for Pain. morphine Yes severe 15mg QD Take [address] [facility] (MS CONTIN) 1-25 chronic by mouth L u[facility] 15 MG 12 hr 17:40: pain daily. Medi [facility] tablet 26 requiring Center long-term opioid treatment naloxone Yes 1{spray [address] [facility] (Narcan) 4 1-25 } Nasal [facility] mg/actuatio 17:40: route as [place] dical n [place] 26 needed for Center Opioid Reversal. fluconazole Yes 150mg QD Take [address] (DIFLUCAN) 1-25 mg by [facility] 150 MG 17:40: mouth Medical tablet 26 daily. Center multivitami Yes 1{capsu QD Take [address] n capsule 1-25 le} capsule by [facility] 17:40: mouth Medical 26 daily. Reform carvediloL Yes 12.5mg Take 12.[address] [facility] (COREG) 1-25 mg by [facility] 12.5 MG 17:40: mouth 2 Medical tablet 26 (two) Center times daily with breakfast and dinner. magnesium Yes 64mg QD Take [address] [facility] [address] [facility] chloride 1-25 by mouth [facility] (Mag 64) 64 17:40: daily. Medi [facility] mg DR 26 Center tablet FLUoxetine Yes 40mg QD Take [address] (PROzac) 40 1-25 by mouth [facility] MG capsule 17:40: daily. Medic al 26 Reform doxepin Yes 75mg QD Take [address] [facility] (SINEquan) 1-25 by mouth [facility] 75 MG 17:40: nightly. Medical capsule 26 Reform gabapentin Yes 800mg Q.[id number] Take [address] [facility] (NEURONTIN) 1-25 [id number] mg by L ukes 800 MG 17:40: 3D mouth 3 Medical tablet 26 (three) Center times daily. ondansetron Yes 4mg Take [address] [facility] (ZOFRAN) 4 1-25 by mouth 3 Sh[facility] es MG tablet 17:40: (three) Medic al 26 times Center daily as needed for Nausea. senna Yes constipatio 1{tbl} QD Take [address] (SENOKOT) 1-25 n tablet by [facility] 8.6 mg 17:40: mouth Medical tablet 26 daily. Reform cyanocobala Yes 1000ug QD Take 1,[address] [facility] min 1-25 mcg by [facility] (vitamin 17:40: mouth Medical B-12) 1000 26 daily. Center MCG tablet prednisoLON Yes 1[drp] Q.25D Apply [address] [facility] E acetate 1-25 drop to [facility] (Pred 17:40: eye(s) 4 Medical Forte) 1 % 26 (four) Center ophthalmic times suspension daily. TiZANidine Yes 6mg Q.25D Take [address] (ZANAFLEX) 1-25 by mouth 4 Shad es 6 MG 17:40: (four) Medical capsule 26 times Center daily. moxifloxaci Yes 1[drp] Q.08826603 Apply [address] [facility] n (VIGAMOX) 1-25 [id number] drop to [facility] 0.5 % 17:40: 3D eye(s) 3 Medical ophthalmic 26 (three) Center solution times daily. HYDROcodone Yes 1{tbl} Take [address] -acetaminop 1-25 tablet by [facility] hen (NORCO 17:40: mouth Medica l 10-325) 26 every 6 Center 10-325 mg (six) per tablet hours as needed for Pain. morphine Yes severe 15mg QD Take [address] (MS CONTIN) 1-25 chronic by mouth L ukes 15 MG 12 hr 17:40: pain daily. Medi [facility] tablet 26 requiring Center long-term opioid treatment naloxone Yes 1{spray [address] [facility] (Narcan) 4 1-25 } Nasal [facility] mg/actuatio 17:40: route as Me dical n [place] 26 needed for Center Opioid Reversal. fluconazole Yes 150mg QD Take [address] (DIFLUCAN) 1-25 mg by [facility] 150 MG 17:40: mouth Medical tablet 26 daily. Center multivitami Yes 1{capsu QD Take [address] n capsule 1-25 le} capsule by [facility] 17:40: mouth Medical 26 daily. Center carvediloL Yes 12.5mg Take 12.[address] [facility] (COREG) 1-25 mg by [facility] 12.5 MG 17:40: mouth 2 Medical tablet 26 (two) Center times daily with breakfast and dinner. magnesium Yes 64mg QD Take [address] [facility] [address] [facility] chloride 1-25 by mouth [facility] (Mag 64) 64 17:40: daily. Medi [facility] mg DR 26 Center tablet FLUoxetine Yes 40mg QD Take [address] (PROzac) 40 1-25 by mouth [facility] MG capsule 17:40: daily. Medic al 26 Center doxepin Yes 75mg QD Take [address] [facility] (SINEquan) 1-25 by mouth [facility] 75 MG 17:40: nightly. Medical capsule 26 Center gabapentin Yes 800mg Q.85931841 Take [address] [facility] (NEURONTIN) 1-25 [id number] mg by L ukes 800 MG 17:40: 3D mouth 3 Medical tablet 26 (three) Center times daily. ondansetron Yes 4mg Take [address] (ZOFRAN) 4 1-25 by mouth 3 [facility] MG tablet 17:40: (three) Medic al 26 times Center daily as needed for Nausea. senna Yes constipatio 1{tbl} QD Take [address] (SENOKOT) 1-25 n tablet by [facility] 8.6 mg 17:40: mouth Medical tablet 26 daily. Center cyanocobala Yes 1000ug QD Take 1,[address] [facility] min 1-25 mcg by [facility] (vitamin 17:40: mouth Medical B-12) 1000 26 daily. Center MCG tablet prednisoLON Yes 1[drp] Q.25D Apply [address] [facility] E acetate 1-25 drop to [facility] (Pred 17:40: eye(s) 4 Medical Forte) 1 % 26 (four) Center ophthalmic times suspension daily. TiZANidine Yes 6mg Q.25D Take [address] (ZANAFLEX) 1-25 by mouth 4 Sh[facility] es 6 MG 17:40: (four) Medical capsule 26 times Center daily. moxifloxaci Yes 1[drp] Q.75245329 Apply [address] [facility] n (VIGAMOX) 1-25 [id number] drop to [facility] 0.5 % 17:40: 3D eye(s) 3 Medical ophthalmic 26 (three) Center solution times daily. HYDROcodone Yes 1{tbl} Take [address] -acetaminop 1-25 tablet by [facility] hen (NORCO 17:40: mouth Medica l 10-325) 26 every 6 Center 10-325 mg (six) per tablet hours as needed for Pain. morphine Yes severe 15mg QD Take [address] (MS CONTIN) 1-25 chronic by mouth L u[facility] 15 MG 12 hr 17:40: pain daily. Medi [facility] tablet 26 requiring Center long-term opioid treatment naloxone Yes 1{spray [address] [facility] (Narcan) 4 1-25 } Nasal [facility] mg/actuatio 17:40: route as Me dical n [place] 26 needed for Center Opioid Reversal. fluconazole Yes 150mg QD Take [address] (DIFLUCAN) 1-25 mg by [facility] 150 MG 17:40: mouth Medical tablet 26 daily. Center multivitami Yes 1{capsu QD Take [address] n capsule 1-25 le} capsule by [facility] 17:40: mouth Medical 26 daily. Center carvediloL Yes 12.5mg Take 12.[address] [facility] (COREG) 1-25 mg by [facility] 12.5 MG 17:40: mouth 2 Medical tablet 26 (two) Center times daily with breakfast and dinner. magnesium Yes 64mg QD Take [address] [facility] [address] [facility] chloride 1-25 by mouth [facility] (Mag 64) 64 17:40: daily. Medi [facility] mg DR 26 Center tablet FLUoxetine Yes 40mg QD Take [address] (PROzac) 40 1-25 by mouth [facility] MG capsule 17:40: daily. Medic al 26 Center doxepin Yes 75mg QD Take [address] [facility] (SINEquan) 1-25 by mouth [facility] 75 MG 17:40: nightly. Medical capsule 26 Center gabapentin Yes 800mg Q.18202289 Take [address] [facility] (NEURONTIN) 1-25 [id number] mg by L ukes 800 MG 17:40: 3D mouth 3 Medical tablet 26 (three) Center times daily. ondansetron Yes 4mg Take [address] (ZOFRAN) 4 1-25 by mouth 3 Shad es MG tablet 17:40: (three) Medic al 26 times Center daily as needed for Nausea. senna Yes constipatio 1{tbl} QD Take [address] (SENOKOT) 1-25 n tablet by [facility] 8.6 mg 17:40: mouth Medical tablet 26 daily. Center collagenase 2022- No 1{appli QD Apply [address] [facility] (SantyL) 1-25 01-25 cation} applicatio L ukes 250 units/g 11:45: 00:00 n Medic al ointment 38 :00 topically Center daily. collagenase 2022- No 1{appli QD Apply [address] [facility] (SantyL) 1-25 cation} applicatio L ukes 250 units/g 11:45: 00:00 n Medic al ointment 38 :00 topically Center daily. collagenase 2022- No 1{appli QD Apply [address] [facility] (SantyL) 1-25 cation} applicatio L ukes 250 units/g 11:45: 00:00 n Medic al ointment 38 :00 topically Center daily. collagenase 2022- No 1{appli QD Apply [address] [facility] (SantyL) 1-25 cation} applicatio L ukes 250 units/g 11:45: 00:00 n Medic al ointment 38 :00 topically Center daily. collagenase 2022- No 1{appli QD Apply [address] [facility] (SantyL) 1-25 cation} applicatio L ukes 250 units/g 11:45: 00:00 n Medic al ointment 38 :00 topically Center daily. collagenase 2022- No 1{appli QD Apply [address] [facility] (SantyL) 1-25 cation} applicatio L ukes 250 units/g 11:45: 00:00 n Medic al ointment 38 :00 topically Center daily. collagenase 2022- No 1{appli QD Apply [address] [facility] (SantyL) 1-25 cation} applicatio L ukes 250 units/g 11:45: 00:00 n Medic al ointment 38 :00 topically Center daily. collagenase 2022- No 1{appli QD Apply [address] [facility] (SantyL) 1-04 03-25 cation} applicatio L ukes 250 units/g 11:45: 00:00 n Medic al ointment 38 :00 topically Center daily. collagenase 2022- No 1{appli QD Apply [address] [facility] (SantyL) 1-04 03-25 cation} applicatio L ukes 250 units/g 11:45: 00:00 n Medic al ointment 38 :00 topically Center daily. collagenase 2022-3- No 1{appli QD Apply [address] [facility] (SantyL) 03-04 cation} applicatio L ukes 250 units/g 11:45: 00:00 n Medic al ointment 38 :00 topically Center daily. baclofen 2022-0 2023- No 10mg Take [address] [facility] [address] [facility] (LIORESAL) 03-04 by mouth 3 Kaycee kes 10 MG 11:45: 00:00 (three) Medical tablet 10 :00 times Center daily as needed (muscle spasms). baclofen 2022-0 2023- No 10mg Take [address] [facility] [address] [facility] (LIORESAL) 03-04 by mouth 3 Kaycee kes 10 MG 11:45: 00:00 (three) Medical tablet 10 :00 times Center daily as needed (muscle spasms). baclofen 2022-0 2023- No 10mg Take [address] [facility] [address] [facility] (LIORESAL) 03-04 by mouth 3 Kaycee kes 10 MG 11:45: 00:00 (three) Medical tablet 10 :00 times Center daily as needed (muscle spasms). baclofen 2022-0 2023- No 10mg Take [address] [facility] [address] [facility] (LIORESAL) 03-04 by mouth 3 Kaycee kes 10 MG 11:45: 00:00 (three) Medical tablet 10 :00 times Center daily as needed (muscle spasms). baclofen 2022-0 2023- No 10mg Take [address] [facility] [address] [facility] (LIORESAL) 03-04 by mouth 3 Kaycee kes 10 MG 11:45: 00:00 (three) Medical tablet 10 :00 times Center daily as needed (muscle spasms). baclofen 2022-0 2023- No 10mg Take [address] [facility] [address] [facility] (LIORESAL) 03-04 by mouth 3 Kaycee kes 10 MG 11:45: 00:00 (three) Medical tablet 10 :00 times Center daily as needed (muscle spasms). baclofen 3-0 2023- No 10mg Take [address] [facility] [address] [facility] (LIORESAL) 03-04 by mouth 3 Kaycee kes 10 MG 11:45: 00:00 (three) Medical tablet 10 :00 times Center daily as needed (muscle spasms). baclofen 0 2022- No 10mg Take [address] [facility] [address] [facility] (LIORESAL) -03-04 by mouth 3 Kaycee kes 10 MG 11:45: 00:00 (three) Medical tablet 10 :00 times Center daily as needed (muscle spasms). baclofen 0 2022- No 10mg Take [address] [facility] [address] [facility] (LIORESAL) -03-04 by mouth 3 Kaycee kes 10 MG 11:45: 00:00 (three) Medical tablet 10 :00 times Center daily as needed (muscle spasms). baclofen 2022- No 10mg Take [address] [facility] [address] [facility] (LIORESAL) 03-04 by mouth 3 Kaycee kes 10 MG 11:45: 00:00 (three) Medical tablet 10 :00 times Center daily as needed (muscle spasms). Moxifloxaci 0 Yes [id number] INSTILL 1 [place] n HCl 0.5 % 1-24 9100 DROP IN [place] [facility] ophthalmic 00:00: AFFECTED - Solution 00 EYE (S) 3 Optometric Tech a TIMES l DAILY Moxifloxaci 2022-0 Yes [id number] INSTILL 1 [place] n HCl 0.5 % 1-24 9100 DROP IN [place] [facility] ophthalmic 00:00: AFFECTED - Solution 00 EYE (S) 3 Optometric Tech a TIMES l DAILY Morphine 2022-0 Yes [id number] 1{tbl} Take 1 [facility] Sulfate ER 1-16 tablet by Cornelio [place] 15 MG oral 00:00: mouth - Tab CR 00 every 24 Externa hours l HYDROcodone 0 Yes [id number] 1{tbl} Q.25D Take 1 [facility] -Acetaminop 1-16 tablet by Leti antonio hen 10-325 00:00: mouth - MG oral 00 every 6 Externa Tablet hours as l needed for pain Morphine 2022-2022- No [id number] 1{tbl} Take 1 [facility] Sulfate ER 1-16 02-07 tablet by Leti bold 15 MG oral 00:00: 00:00 mouth - Tab CR 00 :00 every 24 Externa hours l HYDROcodone 2022-0 2022- No [id number] 1{tbl} Q.25D Take 1 [place] -Acetaminop 1-16 02-07 tablet by Se kristen shaver [id number] 00:00: 00:00 mouth - MG oral 00 :00 every 6 Externa Tablet hours as l needed for pain HYDROcodone 2022-0 Yes [id number] Take by [facility] -Acetaminop -11 mouth Jose Antonio shaver 10-325 08:53: - MG oral 57 Externa Tablet l Baclofen 10 0 Yes 10mg Q.[id number] Take 1 [facility] MG oral -11 [id number] tablet (10 [facility] Tablet 00:00: 3D mg total) - 00 by mouth 3 Externa times l daily as needed for muscle spasms or pain Naloxone 0 Yes Use as [facility] (Narcan) 4 02-18 directed, Sey[facility] old MG/0.1ML 00:00: May be - nasal 00 repeated Externa Liquid if needed l Baclofen 10 0 Yes 10mg Q.53192263 Take 1 [place] MG oral -11 [id number] tablet (10 [facility] Tablet 00:00: 3D mg total) - 00 by mouth 3 Externa times l daily as needed for muscle spasms or pain Naloxone 2022-0 Yes 4mg 0.1 mL (4 [facility] (Narcan) 4 1-11 mg total) [facility] old MG/0.1ML 00:00: by nasal - nasal 00 route as Externa Liquid needed l Naloxone 2022-0 Yes Use as [place] (Narcan) 4 02-18 directed, [facility] old MG/0.1ML 00:00: May be - nasal 00 repeated Externa Liquid if needed l Naloxone 2022-0 Yes 4mg 0.1 mL (4 [facility] (Narcan) 4 1-11 mg total) [facility] old MG/0.1ML 00:00: by nasal - nasal 00 route as Externa Liquid needed l Naloxone 2022-0 Yes Use as [place] (Narcan) 4 02-18 directed, [facility] MG/0.1ML 00:00: May be - nasal 00 repeated Externa Liquid if needed l Naloxone 2022-0 2023- No 2mg Inject 2 [facility] HCl 02-18 01-11 mg as [facility] (NARCAN) 2 00:00: 00:00 directed - MG/2ML 00 :00 once for 1 Externa injection dose l Solution Prefilled Syringe Moxifloxaci Yes [id number] INSTILL 1 [place] n HCl 0.5 % 1-05 9100 DROP IN [place] [facility] ophthalmic 00:00: AFFECTED - Solution 00 EYE (S) 3 Optometric Tech a TIMES l DAILY Fluconazole Yes [id number] TAKE ONE [place] 150 MG oral 1-05 TABLET BY Sey bold Tablet 00:00: MOUTH IN A - 00 SINGLE Externa DOSE l Fluconazole Yes [id number] TAKE ONE [place] 150 MG oral 1-05 TABLET BY Sey bold Tablet 00:00: MOUTH IN A - 00 SINGLE Externa DOSE l Fluconazole Yes [id number] TAKE ONE [place] 150 MG oral 1-05 TABLET BY Sey bold Tablet 00:00: MOUTH IN A - SINGLE Externa DOSE l Collagenase Yes [id number] APPLY TO [facility] (Santyl) 02-10 AFFECTED [facility] 250 UNIT/GM 00:00: AREA DAILY - apply 00 Externa externally l Ointment Collagenase Yes [id number] APPLY TO [facility] (Santyl) 02-10 AFFECTED [facility] 250 UNIT/GM 00:00: AREA DAILY - apply 00 Externa externally l Ointment Collagenase Yes [id number] APPLY TO [place] (Santyl) 1 AFFECTED [facility] 250 UNIT/GM 00:00: AREA DAILY - apply 00 Externa externally l Ointment Multiple 2021-02 Yes [id number] 1{tbl} Take 1 [facility] Vitamins-Ir 2-14 tablet by Leti antonio on 00:00: mouth - (Multivitam 00 daily Externa in Plus l Iron Adult) oral Tablet Multiple 2021-02 Yes [id number] 1{tbl} Take 1 [place] Vitamins-Ir 2-14 tablet by Leti antonio on 00:00: mouth - (Multivitam 00 daily Externa in Plus l Iron Adult) oral Tablet Multiple 2021-02 Yes [id number] 1{tbl} Take 1 [place] Vitamins-Ir 2-14 tablet by Leti antonio on 00:00: mouth - (Multivitam 00 daily Externa in Plus l Iron Adult) oral Tablet Carvedilol 2021-02 Yes [id number] 12.5mg Take 1 [facility] 12.5 MG 2-12 tablet [facility] oral Tablet 00:00: (12.5 mg - 00 total) by Externa mouth in l the morning and 1 tablet (12.5 mg total) in the evening. Take with meals. Carvedilol 2021-02 Yes [id number] 12.5mg Take 1 [place] 12.5 MG 2-12 tablet [facility] oral Tablet 00:00: (12.5 mg - 00 total) by Externa mouth in l the morning and 1 tablet (12.5 mg total) in the evening. Take with meals. Carvedilol 2021-02 Yes [id number] 12.5mg Take 1 [place] 12.5 MG 2-12 tablet [facility] oral Tablet 00:00: (12.5 mg - 00 total) by Externa mouth in l the morning and 1 tablet (12.5 mg total) in the evening. Take with meals. HYDROcodone 2021-02 Yes [id number] Take by [facility] -Acetaminop 03-16 mouth [facility] hen 10-325 13:51: - MG oral 43 Externa Tablet l prednisoLON 2021-[id number] ONE [place] E Acetate 1 03-16 (1) DROP Sey[facility] old % 00:00: INTO LEFT - ophthalmic 00 EYE FOUR Exter na Suspension TIMES l DAILY. Moxifloxaci 2021-02 Yes [id number] 1[drp] Apply 1 [place] HCl 0.5 % 03-16 drop to [facility] ophthalmic 00:00: eye 3 - Solution 00 times Externa daily l prednisoLON 2021-[id number] ONE [place] E Acetate 1 03-16 (1) DROP Sey[facility] old % 00:00: INTO LEFT - ophthalmic 00 EYE FOUR Exter na Suspension TIMES l DAILY. prednisoLON 2021-[id number] ONE [place] E Acetate 1 03-16 (1) DROP [facility] old % 00:00: INTO LEFT - ophthalmic 00 EYE FOUR Exter na Suspension TIMES l DAILY. prednisoLON 2021-[id number] ONE [place] E Acetate 1 03-16 (1) DROP Sey[facility] old % 00:00: INTO LEFT - ophthalmic 00 EYE FOUR Exter na Suspension TIMES l DAILY. Fluconazole 2021-02 Yes [id number] TAKE 1 [facility] 150 MG oral 2-05 TABLET BY Sey bold Tablet 00:00: MOUTH A - 00 SINGLE Externa DOSE l Doxepin HCl 2021-02 Yes [id number] TAKE 1 [facility] 75 MG oral 2-05 CAPSULE [facility] d Capsule 00:00: (75 MG) BY - 00 MOUTH Externa DAILY AT l BEDTIME Fluoxetine 2021-02 Yes [id number] 40mg Take 1 K elsey HCl 40 MG 2-05 capsule [facility] oral 00:00: (40 mg - Capsule 00 total) by Externa mouth l daily Doxepin HCl 2021-02 Yes [id number] TAKE 1 [place] 75 MG oral 2-05 CAPSULE [facility] Capsule 00:00: (75 MG) BY - 00 MOUTH Externa DAILY AT l BEDTIME Fluoxetine 2021-02 Yes [id number] 40mg Take 1 K [facility] HCl 40 MG 2-05 capsule [facility] oral 00:00: (40 mg - Capsule 00 total) by Externa mouth l daily Doxepin HCl 2021-02 Yes [id number] TAKE 1 [place] 75 MG oral 2-05 CAPSULE [facility] Capsule 00:00: (75 MG) BY - 00 MOUTH Externa DAILY AT l BEDTIME Fluoxetine 2021-02 Yes [id number] 40mg Take 1 K [facility] HCl 40 MG 2-05 capsule [facility] oral 00:00: (40 mg - Capsule 00 total) by Externa mouth l daily Doxepin HCl 2021-02 Yes [id number] TAKE 1 [place] 75 MG oral 2-05 CAPSULE [facility] d Capsule 00:00: (75 MG) BY - 00 MOUTH Externa DAILY AT l BEDTIME Fluoxetine 2021-02 Yes [id number] 40mg Take 1 K [facility] HCl 40 [...] - apply 00 Externa externally l Ointment Magnesium 2021-02 Yes 64mg 64 mg [place] Chloride 64 2-03 [facility] MG oral 00:00: - Tablet 00 Externa Delayed l Response Magnesium 2021-02 Yes 64mg 64 mg [place] Chloride 64 2-03 [facility] MG oral 00:00: - Tablet 00 Externa Delayed l Response Magnesium 2021-02 Yes 64mg 64 mg [place] Chloride 64 2-03 [facility] MG oral 00:00: - Tablet 00 Externa Delayed l Response HYDROcodone 2021-02 202- No 1{tbl} Take 1 K [facility] -Acetaminop 1-28 11-28 tablet by Se [facility]bold hen 7.5-325 11:57: 00:00 mouth as - MG oral 37 :00 needed Externa Tablet l HYDROcodone 2021-02 Yes [id number] Take by [facility] -Acetaminop 1-28 mouth [facility] hen 10-325 10:50: - MG oral 57 Externa Tablet l Carvedilol 2021-02 Yes [id number] 12.5mg Take 2 [facility] 6.25 MG 1-28 tablets [facility] oral Tablet 00:00: (12.5 mg - 00 total) by Externa mouth in l the morning and 2 tablets (12.5 mg total) in the evening. Take with meals. Gabapentin 2021-02 Yes [id number] 800mg Q.[id number] Take 1 [place] 800 MG oral 1-28 [id number] tablet [facility] Tablet 00:00: 3D (800 mg - 00 total) by Externa mouth 3 l times daily as needed (nerve pain) Carvedilol 2021-02 Yes [id number] 12.5mg Take 2 [place] 6.25 MG 1-28 tablets [facility] oral Tablet 00:00: (12.5 mg - 00 total) by Externa mouth in l the morning and 2 tablets (12.5 mg total) in the evening. Take with meals. Gabapentin 2021-02 Yes [id number] 800mg Q.[id number] Take 1 [place] 800 MG oral 1-28 [id number] tablet [facility] Tablet 00:00: 3D (800 mg - 00 total) by Externa mouth 3 l times daily as needed (nerve pain) Gabapentin 2021-02 Yes [id number] 800mg Q.[id number] Take 1 [place] 800 MG oral 1-28 [id number] tablet [facility] Tablet 00:00: 3D (800 mg - 00 total) by Externa mouth 3 l times daily as needed (nerve pain) Gabapentin 2021-02 Yes [id number] 800mg Q.[id number] Take 1 [place] 800 MG oral 1-28 [id number] tablet [facility] Tablet 00:00: 3D (800 mg - 00 total) by Externa mouth 3 l times daily as needed (nerve pain) Gabapentin 2021-02 Yes [id number] 800mg Q.[id number] Take 1 [place] 800 MG oral 1-28 [id number] tablet [facility] Tablet 00:00: 3D (800 mg - 00 total) by Externa mouth 3 l times daily as needed (nerve pain) Fluconazole 2021-02 Yes [id number] TAKE 1 [place] 150 MG oral 1-25 TABLET BY Sey bold Tablet 00:00: MOUTH A - 00 SINGLE Externa DOSE l PREDNISOLON 2021-[id number] ONE [facility] E ACETATE 1 0-06 [id number] (1) DROP it y of % 00:00: INTO LEFT [place] ophthalmic 00 EYE FOUR Medic al suspension TIMES Branch drops DAILY. PREDNISOLON 2021-[id number] ONE [facility] E ACETATE 1 0-06 [id number] (1) DROP it y of % 00:00: INTO LEFT [place] ophthalmic 00 EYE FOUR Medic al suspension TIMES Branch drops DAILY. PREDNISOLON 2021-[id number] ONE [facility] E ACETATE 1 0-06 [id number] (1) DROP it y of % 00:00: INTO LEFT [place] ophthalmic 00 EYE FOUR Medic al suspension TIMES Branch drops DAILY. PREDNISOLON 2021-[id number] ONE [facility] E ACETATE 1 0-06 [id number] (1) DROP it y of % 00:00: INTO LEFT [place] ophthalmic 00 EYE FOUR Medic al suspension TIMES Branch drops DAILY. PREDNISOLON 2021-[id number] ONE [facility] E ACETATE 1 0-06 [id number] (1) DROP it y of % 00:00: INTO LEFT [place] ophthalmic 00 EYE FOUR Medic al suspension TIMES Branch drops DAILY. PREDNISOLON 2021-[id number] ONE [facility] E ACETATE 1 0-06 [id number] (1) DROP it y of % 00:00: INTO LEFT [place] ophthalmic 00 EYE FOUR Medic al suspension TIMES Branch drops DAILY. PREDNISOLON Yes [id number] PLACE ONE [facility] E ACETATE 1 9-13 [id number] (1) DROP it y of % 00:00: INTO LEFT [place] ophthalmic 00 EYE FOUR Medic al suspension TIMES Branch drops DAILY. PREDNISOLON 2021-0 2- No [id number] PLACE ONE [facility] E ACETATE 1 10-21 [id number] (1) DROP i ty of % 00:00: 00:00 INTO LEFT [place] ophthalmic 00 :00 EYE FOUR Medic al suspension TIMES Branch drops DAILY. MOXIFLOXACI 2021-0 Yes [id number] INSTILL [facility] N 0.5 % 09-3002 ONE (1) ity of ophthalmic 00:[place]: [place]OP [place] drops 00 LEFT EYE Medical FOUR TIMES Branch DAILY. MOXIFLOXACI 2021-0 Yes [id number] INSTILL [facility] N 0.5 % 09-3002 ONE (1) ity of ophthalmic 00:[place]: DROP IN [place] drops 00 LEFT EYE Medical FOUR TIMES Branch DAILY. MOXIFLOXACI 2021-0 Yes [id number] INSTILL [facility] N 0.5 % 09-30 ONE (1) ity of ophthalmic 00:[place]: DROP IN [place] drops 00 LEFT EYE Medical FOUR TIMES Branch DAILY. MOXIFLOXACI 2021-0 Yes [id number] INSTILL [facility] N 0.5 % 09-3002 ONE (1) ity of ophthalmic 00:00: DROP IN [place] drops 00 LEFT EYE Medical FOUR TIMES Branch DAILY. MOXIFLOXACI 2021-0 Yes [id number] INSTILL [facility] N 0.5 % 09-3002 ONE (1) [facility] 00:[facility] drops 00 LEFT EYE Medical FOUR TIMES Branch DAILY. MOXIFLOXACI 2021-0 Yes [id number] INSTILL [facility] N 0.5 % 09-3002 ONE (1) [facility] 00:[facility] drops 00 LEFT EYE Medical FOUR TIMES Branch DAILY. MOXIFLOXACI 2021-0 Yes [id number] INSTILL [facility] N 0.5 % 09-3002 ONE (1) [facility] 00:[facility]: [place] drops 00 LEFT EYE Medical FOUR TIMES Branch DAILY. MOXIFLOXACI 2021-0 Yes [id number] INSTILL [facility] N 0.5 % 09-3002 ONE (1) [facility] 00:[place]: [place] drops 00 LEFT EYE Medical FOUR TIMES Branch DAILY. Carvedilol 2021- No TAKE ONE [place] 6.25 MG 09-30 (1) Seybold oral Tablet 00:00: 00:00 TABLET(S) - 00 :00 BY MOUTH Externa TWICE A l DAY (EVERY MORNING AND EVENING). Doxepin HCl 2021-0 Yes [id number] TAKE 1 [place] 75 MG oral 8-10 CAPSULE Seybol d Capsule 00:00: (75 MG) BY - 00 MOUTH Externa DAILY AT l BEDTIME Fluoxetine 2021-0 Yes [id number] 40mg Take 1 K elsey HCl 40 MG 8-10 capsule Seybold oral 00:00: (40 mg - Capsule 00 total) by Externa mouth l daily prednisoLON Yes PLACE ONE [facility] else[facility] E Acetate 1 8-10 (1) DROP Seyb old % 00:00: INTO LEFT - ophthalmic 00 EYE FOUR Exter na Suspension TIMES l DAILY. prednisoLON Yes [id number] 1[drp] Place 1 [facility] E acetate 8-10 [id number] Drop in ity o f (PRED 00:00: left eye 4 [place] FORTE) 1 % 00 (four) Medical ophthalmic times Branch suspension daily. drops prednisoLON 2021- No PLACE ONE [place] E Acetate 1 8-10 12-06 (1) DROP Sey bold % 00:00: 00:00 INTO LEFT - ophthalmic 00 :00 EYE FOUR Exter na Suspension TIMES l DAILY. prednisoLON 0 2021- No [id number] 1[drp] Place 1 [facility] E acetate 8-10 09-13 [id number] Drop in ity of (PRED 00:00: 00:00 left eye 4 [place] FORTE) 1 % 00 :00 (four) Medical ophthalmic times Branch suspension daily. drops ketorolac 2021- Yes [id number] 1[drp] Place 1 [facility] 0.5 % 6-07 9102 Drop in ity of ophthalmic 00:00: left eye 4 [place] solution 00 (four) Medical times Branch daily. ketorolac 2021-0 Yes [id number] 1[drp] Place 1 [facility] 0.5 % 6-07 9102 Drop in ity of ophthalmic 00:00: left eye 4 [place] solution 00 (four) Medical times Branch daily. ketorolac 2021-0 Yes [id number] 1[drp] Place 1 [facility] 0.5 % 6-07 9102 Drop in ity of ophthalmic 00:00: left eye 4 [place] solution 00 (four) Medical times Branch daily. ketorolac 2-0 Yes [id number] 1[drp] Place 1 [facility] 0.5 % 6-07 9102 Drop in ity of ophthalmic 00:00: left eye 4 [place] solution 00 (four) Medical times Branch daily. ketorolac 2-0 Yes [id number] 1[drp] Place 1 [facility] 0.5 % 6-07 9102 Drop in ity of ophthalmic 00:00: left eye 4 [place] solution 00 (four) Medical times Branch daily. ketorolac 2-0 Yes [id number] 1[drp] Place 1 [facility] 0.5 % 6-07 9102 Drop in ity of ophthalmic 00:00: left eye 4 [place] solution 00 (four) Medical times Branch daily. ketorolac 2021-0 Yes [id number] 1[drp] Place 1 [facility] 0.5 % 6-07 9102 Drop in ity of ophthalmic 00:00: left eye 4 [place] solution 00 (four) Medical times Branch daily. ketorolac 2-0 Yes [id number] 1[drp] Place 1 [facility] 0.5 % 6-07 9102 Drop in ity of ophthalmic 00:00: left eye 4 [place] solution 00 (four) Medical times Branch daily. Tizanidine 2021-0 Yes TAKE 3 K[facility] HCl 2 MG 6-04 CAPSULES Seybold oral 00:00: BY MOUTH - Capsule 00 EVERY 6 Externa HOURS l Tizanidine 2021-0 Yes TAKE 3 [place] HCl 2 MG 6-04 CAPSULES [facility] oral 00:00: BY MOUTH - Capsule 00 EVERY 6 Externa HOURS l Tizanidine 2-0 3- No TAKE 3 [place] ey HCl 2 MG 6-04 01-11 CAPSULES Seybol d oral 00:00: 00:00 BY MOUTH - Capsule 00 :00 EVERY 6 Externa HOURS l hydroCHLORO 2-0 Yes [id number] 25mg Take 2 [facility] thiazide 5-29 9102 capsules ity of 12.5 mg 00:00: by mouth [place] capsule 00 daily. Medical Branch hydroCHLORO Yes [id number] 25mg Take 2 [facility] thiazide 5-29 9102 capsules ity of 12.5 mg 00:00: by mouth [place] capsule 00 daily. Medical Branch hydroCHLORO 0 Yes [id number] 25mg Take 2 [facility] thiazide 5-29 9102 capsules ity of 12.5 mg 00:00: by mouth [place] capsule 00 daily. Medical Branch hydroCHLORO 0 Yes [id number] 25mg Take 2 [facility] thiazide 5-29 9102 capsules ity of 12.5 mg 00:00: by mouth [place] capsule 00 daily. Medical Branch hydroCHLORO Yes [id number] 25mg Take 2 [facility] thiazide 5-29 9102 capsules ity of 12.5 mg 00:00: by mouth [place] capsule 00 daily. Medical Branch hydroCHLORO Yes [id number] 25mg Take 2 [facility] thiazide 5-29 9102 capsules ity of 12.5 mg 00:00: by mouth [place] capsule 00 daily. Medical Branch hydroCHLORO Yes [id number] 25mg Take 2 [facility] thiazide 5-29 9102 capsules ity of 12.5 mg 00:00: by mouth [place] capsule 00 daily. Medical Branch hydroCHLORO 0 Yes [id number] 25mg Take 2 [facility] thiazide 5-29 9102 capsules ity of 12.5 mg 00:00: by mouth [place] capsule 00 daily. Medical Branch tiZANidine 0 Yes 6mg Take 6 mg Un luz [place] 2 mg 5-28 by mouth ity of capsule 17:49: every 6 [place] [address] (six) Medical hours. Branch FLUoxetine 0 Yes 40mg Take 40 mg U nivers 40 mg 5-28 by mouth ity of capsule 17:49: daily. [place] [address] Medical Branch naloxegoL 0 Yes 25mg Take 25 mg Un luz [place] (MOVANTIK) 5-28 by mouth ity o f 25 mg Tab 17:49: daily. [place] [address] Medical Branch ferrous 0 Yes 325mg Take [...] by mouth ity of tablet 17:49: daily. [place] [address] Medical Branch docusate 0 Yes 100mg Take [...] by mouth ity of capsule 17:49: daily. [place] [address] Medical Branch naloxegoL 0 Yes 25mg Take 25 mg Un luz [place] (MOVANTIK) 5-28 by mouth ity o f 25 mg Tab 17:49: daily. [place] [address] Medical Branch ferrous 0 Yes 325mg Take [...] by mouth ity of tablet 17:49: daily. [place] [address] Medical Branch docusate Yes 100mg Take 100 [...] by mouth ity of capsule 17:49: daily. [place] [address] Medical Branch naloxegoL Yes 25mg Take 25 mg Un l[facility] [place] (MOVANTIK) 5-28 by mouth ity o f 25 mg Tab 17:49: daily. [place] [address] Medical Branch ferrous Yes 325mg Take 325 [...] by mouth ity of tablet 17:49: daily. [place] [address] Medical Branch docusate Yes 100mg Take 100 [...] by mouth ity of capsule 17:49: daily. [place] [address] Medical Branch naloxegoL Yes 25mg Take 25 mg Un luz [place] (MOVANTIK) 5-28 by mouth ity o f 25 mg Tab 17:49: daily. [place] [address] Medical Branch ferrous Yes 325mg Take 325 [...] by mouth ity of tablet 17:49: daily. [place] [address] Medical Branch docusate Yes 100mg Take 100 [...] by mouth ity of capsule 17:49: daily. [place] [address] Medical Branch naloxegoL Yes 25mg Take 25 mg Un l[facility] [place] (MOVANTIK) 5-28 by mouth ity o f 25 mg Tab 17:49: daily. [place] [address] Medical Branch ferrous Yes 325mg Take 325 [...] by mouth ity of tablet 17:49: daily. [place] [address] Medical Branch docusate 0 Yes 100mg Take [...] by mouth ity of capsule 17:49: daily. [place] [address] Medical Branch naloxegoL 0 Yes 25mg Take 25 mg Un l[facility] [place] (MOVANTIK) 5-28 by mouth ity o f 25 mg Tab 17:49: daily. [place] [address] Medical Branch ferrous Yes 325mg Take 325 [...] by mouth ity of tablet 17:49: daily. [place] [address] Medical Branch docusate 0 Yes 100mg Take [...] mouth ity of capsule 17:49: every 6 [place] [address] (six) Medical hours. Branch FLUoxetine Yes 40mg Take 40 mg U nivers 40 mg 5-28 by mouth ity of capsule 17:49: daily. [place] [address] Medical Branch naloxegoL 0 Yes 25mg Take 25 mg Un l[facility] [place] (MOVANTIK) 5-28 by mouth ity o f 25 mg Tab 17:49: daily. [place] [address] Medical Branch ferrous 0 Yes 325mg Take [...] by mouth ity of ORAL) 17:49: every [place] 34 evening. Medical Branch morphine ER Yes 15mg Take 15 mg [facility] 15 mg 12 hr 5-28 by mouth ity of tablet 17:49: daily. [place] [address] Medical Branch docusate 0 Yes 100mg Take [...] mouth ity of capsule 17:49: every 6 [place] [address] (six) Medical hours. Branch FLUoxetine 0 Yes 40mg Take 40 mg U nivers 40 mg 5-28 by mouth ity of capsule 17:49: daily. [place] [address] Medical Branch naloxegoL Yes 25mg Take 25 mg [facility] [place] (MOVANTIK) 5-28 by mouth ity o f 25 mg Tab 17:49: daily. [place] [address] Medical Branch ferrous Yes 325mg Take 325 [...] by mouth ity of tablet 17:49: daily. [place] [address] Medical Branch docusate Yes 100mg Take 100 [...] Branch needed for Nausea and Vomiting (N/V). hydrALAZINE Yes [id number] 5mg Take 0.5 [facility] 10 mg 5-28 9102 tablets by ity of tablet 00:00: mouth 2 [place] 00 (two) Medical times Branch daily. natamycin 5 Yes [id number] 1[drp] Place 1 [facility] % 5-28 9102 Drop in ity of ophthalmic 00:00: left eye Sukhjinder as suspension 00 every 2 Medica l drops (two) Branch hours. erythromyci Yes [id number] .5[in_u Place 0.5 [facility] n 5 mg/gram 5-28 9102 s] Inches in ity of (0.5 %) 00:00: left eye [place] ophthalmic 00 at Medical ointment bedtime. Branch hydrALAZINE Yes [id number] 5mg Take 0.5 [facility] 10 mg 5-28 9102 tablets by ity of tablet 00:00: mouth 2 [place] 00 (two) Medical times Branch daily. natamycin 5 Yes [id number] 1[drp] Place 1 [facility] % 5-28 9102 Drop in ity of ophthalmic 00:00: left eye Sukhjinder as suspension 00 every 2 Medica l drops (two) Branch hours. erythromyci Yes [id number] .5[in_u Place 0.5 [facility] n 5 mg/gram 5-28 9102 s] Inches in ity of (0.5 %) 00:00: left eye [place] ophthalmic 00 at Medical ointment bedtime. Branch hydrALAZINE Yes [id number] 5mg Take 0.5 [facility] 10 mg 5-28 9102 tablets by ity of tablet 00:00: mouth 2 00 (two) Medical times Branch daily. natamycin 5 Yes [id number] 1[drp] Place 1 [facility] % 5-28 9102 Drop in ity of ophthalmic 00:00: left eye Sukhjinder as suspension 00 every 2 Medica l drops (two) Branch hours. erythromyci Yes [id number] .5[in_u Place 0.5 [facility] n 5 mg/gram 5-28 9102 s] Inches in ity of (0.5 %) 00:00: left eye [place] ophthalmic 00 at Medical ointment bedtime. Branch hydrALAZINE Yes [id number] 5mg Take 0.5 [facility] 10 mg 5-28 9102 tablets by ity of tablet 00:00: mouth 2 [place] 00 (two) Medical times Branch daily. natamycin 5 Yes [id number] 1[drp] Place 1 [facility] % 5-28 9102 Drop in ity of ophthalmic 00:00: left eye Sukhjinder as suspension 00 every 2 Medica l drops (two) Branch hours. erythromyci Yes [id number] .5[in_u Place 0.5 [facility] n 5 mg/gram 5-28 9102 s] Inches in ity of (0.5 %) 00:00: left eye [place] ophthalmic 00 at Medical ointment bedtime. Branch hydrALAZINE 0 Yes [id number] 5mg Take 0.5 [facility] 10 mg 5-28 9102 tablets by ity of tablet 00:00: mouth 2 [place] 00 (two) Medical times Branch daily. natamycin 5 2021-0 Yes [id number] 1[drp] Place 1 [facility] % 5-28 9102 Drop in ity of ophthalmic 00:00: left eye Sukhjinder as suspension 00 every 2 Medica l drops (two) Branch hours. erythromyci 0 Yes [id number] .5[in_u Place 0.5 [facility] n 5 mg/gram 5-28 9102 s] Inches in ity of (0.5 %) 00:00: left eye [place] ophthalmic 00 at Medical ointment bedtime. Branch hydrALAZINE Yes [id number] 5mg Take 0.5 [facility] 10 mg 5-28 9102 tablets by ity of tablet 00:00: mouth 2 [place] 00 (two) Medical times Branch daily. natamycin 5 2021-0 Yes [id number] 1[drp] Place 1 [facility] % 5-28 9102 Drop in ity of ophthalmic 00:00: left eye Sukhjinder as suspension 00 every 2 Medica l drops (two) Branch hours. erythromyci 0 Yes [id number] .5[in_u Place 0.5 [facility] n 5 mg/gram 5-28 9102 s] Inches in ity of (0.5 %) 00:00: left eye [place] ophthalmic 00 at Medical ointment bedtime. Branch hydrALAZINE Yes [id number] 5mg Take 0.5 [facility] 10 mg 5-28 9102 tablets by ity of tablet 00:00: mouth 2 [place] 00 (two) Medical times Branch daily. natamycin 5 2021-0 Yes [id number] 1[drp] Place 1 [facility] % 5-28 9102 Drop in ity of ophthalmic 00:00: left eye Sukhjinder as suspension 00 every 2 Medica l drops (two) Branch hours. erythromyci Yes [id number] .5[in_u Place 0.5 [facility] n 5 mg/gram 5-28 9102 s] Inches in ity of (0.5 %) 00:00: left eye [place] ophthalmic 00 at Medical ointment bedtime. Branch hydrALAZINE Yes [id number] 5mg Take 0.5 [facility] 10 mg 5-28 9102 tablets by ity of tablet 00:00: mouth 2 [place] 00 (two) Medical times Branch daily. natamycin 5 Yes [id number] 1[drp] Place 1 [facility] % 5-28 9102 Drop in ity of ophthalmic 00:00: left eye Sukhjinder as suspension 00 every 2 Medica l drops (two) Branch hours. erythromyci Yes [id number] .5[in_u Place 0.5 [facility] n 5 mg/gram 5-28 9102 s] Inches in ity of (0.5 %) 00:00: left eye [place] ophthalmic 00 at Medical ointment bedtime. Branch HYDROcodone Yes [id number] Take by [place] -Acetaminop 5-18 mouth Seybold hen 10-325 11:11: MG oral 20 Tablet Metoprolol Yes [id number] 50mg TAKE 1 K elsey Tartrate 50 5-09 TABLET (50 Se ybold MG oral 00:00: MG TOTAL) Tablet 00 BY MOUTH IN THE MORNING AND 1 TABLET (50 MG TOTAL) IN THE EVENING. hydroCHLORO Yes [id number] 25mg TAKE 1 [place] thiazide 25 5-09 TABLET (25 Se ybold MG oral 00:00: MG TOTAL) Tablet 00 BY MOUTH DAILY. Metoprolol Yes [id number] 50mg TAKE 1 K elsey Tartrate 50 5-09 TABLET (50 Se ybold MG oral 00:00: MG TOTAL) Tablet 00 BY MOUTH IN THE MORNING AND 1 TABLET (50 MG TOTAL) IN THE EVENING. hydroCHLORO Yes [id number] 25mg TAKE 1 [place] thiazide 25 5-09 TABLET (25 Se ybold MG oral 00:00: MG TOTAL) Tablet 00 BY MOUTH DAILY. Nystatin 0 Yes [id number] APPLY 1 [place] [id number] 4- APPLICATIO Seybold UNIT/GM 00:00: N apply 00 TOPICALLY externally 3 TIMES Powder DAILY. Nystatin 2021-0 Yes [id number] APPLY 1 [place] [id number] 4-28 APPLICATIO [facility] UNIT/GM 00:00: N apply 00 TOPICALLY externally 3 TIMES Powder DAILY. HYDROcodone 2021-0 Yes [id number] Take by [place] -Acetaminop 4-15 mouth Seybold hen 10-325 11:36: MG oral 16 Tablet HYDROcodone 2021-0 Yes [id number] Take by [place] -Acetaminop 4-15 mouth Seybold [...] of the day Methylpredn 2021-0 2021- No [id number] 40mg [place] isolone 05-1608 [facility] Acetate 16:45: 16:37 (Depo-Medro 00 :00 l) 40 mg/ml - Physician Administere d (J1030) Methylpredn 2021-0 2021- No [id number] 40mg 40 mg, [place] isolone -08 Physician Seybol d Acetate 16:45: 16:37 Administer (Depo-Medro 00 :00 ed, ONCE, l) 40 mg/ml 1 dose, On - Physician 05/16/21 Administere at 1145 d (J1030) HYDROcodone 2021-0 Yes [id number] Take by [place] -Acetaminop 4-08 mouth Seybold hen 10-325 10:52: MG oral 25 Tablet HYDROcodone 2021-0 Yes [id number] Take by [place] -Acetaminop 3-29 mouth Seybold hen 10-325 09:51: MG oral 33 Tablet hydroCHLORO 2021-0 Yes [id number] 25mg Take 1 [place] thiazide 25 3-29 tablet (25 Se ybold MG oral 00:00: mg total) Tablet 00 by mouth daily Nystatin 0 Yes [id number] Apply 1 [place] [id number] 3-29 applicatio Seybold UNIT/GM 00:00: n apply 00 topically externally 3 times Powder daily Ondansetron 0 Yes [id number] 4mg Q.[id number] Take 1 [place] (Zofran 3-29 [id number] tablet (4 S eybold ODT) 4 MG 00:00: 3D mg total) oral TABLET 00 by mouth DISPERSIBLE every 8 hours as needed for nausea hydroCHLORO 2021-0 Yes [id number] 25mg Take 1 [place] thiazide 25 3-29 tablet (25 Se ybold MG oral 00:00: mg total) Tablet 00 by mouth daily Nystatin Yes [id number] Apply 1 [place] [id number] 3-29 applicatio Seybold UNIT/GM 00:00: n apply 00 topically externally 3 times Powder daily Ondansetron 0 Yes [id number] 4mg Q.[id number] Take 1 [place] (Zofran 3-29 [id number] tablet (4 S eybold ODT) 4 MG 00:00: 3D mg total) oral TABLET 00 by mouth DISPERSIBLE every 8 hours as needed for nausea hydroCHLORO 2021-0 Yes [id number] 25mg Take 1 [place] thiazide 25 3-29 tablet (25 Se ybold MG oral 00:00: mg total) Tablet 00 by mouth daily Nystatin 0 Yes [id number] Apply 1 [place] [id number] 3-29 applicatio Seybold UNIT/GM 00:00: n apply 00 topically externally 3 times Powder daily Ondansetron 2021-0 Yes [id number] 4mg Q.[id number] Take 1 [place] (Zofran 3-29 [id number] tablet (4 S eybold ODT) 4 MG 00:00: 3D mg total) oral TABLET 00 by mouth DISPERSIBLE every 8 hours as needed for nausea Ondansetron 2021-0 Yes [id number] 4mg Q.[id number] Take 1 [place] (Zofran 3-29 [id number] tablet (4 S eybold ODT) 4 MG 00:00: 3D mg total) oral TABLET 00 by mouth DISPERSIBLE every 8 hours as needed for nausea Ondansetron 2021-0 Yes [id number] 4mg Q.[id number] Take 1 [place] (Zofran 3-29 [id number] tablet (4 S eybold ODT) 4 MG 00:00: 3D mg total) oral TABLET 00 by mouth DISPERSIBLE every 8 hours as needed for nausea Ondansetron 2021-0 Yes [id number] 4mg Q.[id number] Take 1 [place] (Zofran 3-29 [id number] tablet (4 S eybold ODT) 4 MG 00:00: 3D mg total) - oral TABLET 00 by mouth Exte rna DISPERSIBLE every 8 l hours as needed for nausea Ondansetron 2021-0 Yes [id number] 4mg Q.[id number] Take 1 [place] (Zofran 3-29 [id number] tablet (4 S eybold ODT) 4 MG 00:00: 3D mg total) - oral TABLET 00 by mouth Exte rna DISPERSIBLE every 8 l hours as needed for nausea Ondansetron 2021-0 Yes [id number] 4mg Q.[id number] Take 1 [place] (Zofran 3-29 [id number] tablet (4 S eybold ODT) 4 MG 00:00: 3D mg total) - oral TABLET 00 by mouth Exte rna DISPERSIBLE every 8 l hours as needed for nausea Ondansetron 2021-0 Yes [id number] 4mg Q.[id number] Take 1 [place] (Zofran 3-29 [id number] tablet (4 S eybold ODT) 4 MG 00:00: 3D mg total) - oral TABLET 00 by mouth Exte rna DISPERSIBLE every 8 l hours as needed for nausea Ondansetron 2021-0 Yes [id number] 4mg Q.[id number] Take 1 [place] (Zofran 3-29 [id number] tablet (4 S eybold ODT) 4 MG 00:00: 3D mg total) - oral TABLET 00 by mouth Exte rna DISPERSIBLE every 8 l hours as needed for nausea HYDROcodone 2021-0 Yes [id number] Take by [place] -Acetaminop 3-25 mouth Seybold [...] Tablet 00 Delayed Response Cosyntropin 2021- No [id number] .25mg [place] (CORTROSYN) 04-30-23 [facility] 0.25 mg 14:15: 14:21 00 :00 Cosyntropin 2021-2021- No [id number] .25mg 0.25 mg, [place] (CORTROSYN) -30 04- intramuscu S eybold 0.25 mg 14:15: 14:21 lar, ONCE, 00 :00 1 dose, On Wed04/30/21 at 0915 Tizanidine 2021-0 2021- No [id number] every 6 [place] HCl 2 MG -30 04-23 (six) Seybold oral 08:46: 00:00 hours Capsule 51 :00 HYDROcodone Yes [id number] Take by [place] -Acetaminop 3-23 mouth Seybold hen 10-325 08:46: MG oral 49 Tablet Sodium Yes [place] Bicarbonate 3-20 Seybold 325 MG oral 00:00: Tablet 00 Sodium 0 Yes [place] Bicarbonate 3-20 Sey[facility] 325 MG oral 00:00: Tablet 00 Sodium 2021-0 2021- No [place] Bicarbonate 3-20 03-29 Seybold [...] needed. ) does not apply Misc Continuous 2021-0 Yes Use daily [place] Blood Gluc [...] l ) does not apply Misc Continuous 0 Yes Use daily [place] Blood Gluc 3-15 to check Seybo ld Transmit 00:00: blood 3-4 - (Dexcom G6 00 times and Exte rna Transmitter as needed. l ) does not apply Misc Continuous 0 Yes Use daily [place] Blood Gluc 3-15 to check Seybo ld Transmit 00:00: blood 3-4 - (Dexcom G6 00 times and Exte rna Transmitter as needed. l ) does not apply Misc Continuous 2021-0 Yes Use daily [place] Blood Gluc 3-15 to check Seybo ld Transmit 00:00: blood 3-4 - (Dexcom G6 00 times and Exte rna Transmitter as needed. l ) does not apply Misc Continuous 0 Yes Use daily [place] Blood Gluc 3-15 to check Seybo ld Transmit 00:00: blood 3-4 - (Dexcom G6 00 times and Exte rna Transmitter as needed. l ) does not apply Misc Metoprolol 2021-0 Yes [id number] 50mg Take 1 K elsey Tartrate 50 3-08 tablet (50 Se ybold MG oral 00:00: mg total) Tablet 00 by mouth in the morning and 1 tablet (50 mg total) in the evening. Docusate 2021-0 Yes [id number] 100mg Take 100 [place] Sodium 100 3-08 mg by Seybold MG oral 00:00: mouth 2 Tablet 00 times daily Metoprolol 2021-0 Yes [id number] 50mg Take 1 K elsey Tartrate 50 3-08 tablet (50 Se ybold MG oral 00:00: mg total) Tablet 00 by mouth in the morning and 1 tablet (50 mg total) in the evening. Docusate 2021-0 Yes [id number] 100mg Take 100 [place] Sodium 100 3-08 mg by Seybold MG oral 00:00: mouth 2 Tablet 00 times daily Metoprolol 2021-0 Yes [id number] 50mg Take 1 K elsey Tartrate 50 3-08 tablet (50 Se ybold MG oral 00:00: mg total) Tablet 00 by mouth in the morning and 1 tablet (50 mg total) in the evening. Docusate 2021-0 Yes [id number] 100mg Take 100 [place] Sodium 100 3-08 mg by Seybold MG oral 00:00: mouth 2 Tablet 00 times daily Metoprolol 2021-0 Yes [id number] 50mg Take 1 K elsey Tartrate 50 3-08 tablet (50 Se ybold MG oral 00:00: mg total) Tablet 00 by mouth in the morning and 1 tablet (50 mg total) in the evening. Docusate 2021-0 Yes [id number] 100mg Take 100 [place] Sodium 100 3-08 mg by Seybold MG oral 00:00: mouth 2 Tablet 00 times daily Metoprolol 2021-0 Yes [id number] 50mg Take 1 K elsey Tartrate 50 3-08 tablet (50 Se ybold MG oral 00:00: mg total) Tablet 00 by mouth in the morning and 1 tablet (50 mg total) in the evening. Docusate 2021-0 Yes [id number] 100mg Take 100 [place] Sodium 100 3-08 mg by Seybold MG oral 00:00: mouth 2 Tablet 00 times daily Docusate Yes [id number] 100mg Take 100 [place] Sodium 100 3-08 mg by Seybold MG oral 00:00: mouth 2 Tablet 00 times daily Docusate Yes [id number] 100mg Take 100 [place] Sodium 100 3-08 mg by Seybold MG oral 00:00: mouth 2 Tablet 00 times daily Tizanidine Yes [id number] every 6 [place] HCl 2-28 (six) Seybold (Zanaflex) 08:53: hours 2 MG oral 51 Capsule HYDROcodone Yes [id number] Take by [place] -Acetaminop 2-28 mouth Seybold hen 10-325 08:53: MG oral 32 Tablet Fluoxetine 2021- No [id number] Take by [place] HCl 20 MG 2-24 02-24 mouth 2 Seybol d oral 15:04: 00:00 times Capsule 25 :00 daily Metformin 2021- No [id number] 1000mg Take 1,000 [place] HCl 1000 MG 2-23 02-23 mg by Seybol d oral Tablet 10:44: 00:00 mouth 42 :00 daily Continuous Yes [id number] Check K elsey Blood Gluc 2-23 Seybold Sensor 00:00: (Dexcom G6 00 Sensor) does not apply Misc Continuous Yes [id number] Check K elsey Blood Gluc 2-23 sugar 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 (Dexcom G4 00 daily and [place] as needed Rcv/Share) does not apply Device Continuous Yes [id number] Check K elsey Blood Gluc 2-23 Seybold Sensor 00:00: (Dexcom G6 00 Sensor) does not apply Misc Continuous Yes [id number] Check K elsey Blood Gluc 2-23 sugar 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 (Dexcom G4 00 daily and [place] as needed Rcv/Share) does not apply Device Continuous Yes [id number] Check K elsey Blood Gluc 2-23 Seybold Sensor 00:00: (Dexcom G6 00 Sensor) does not apply Misc Continuous Yes [id number] Check K elsey Blood Gluc 2-23 sugar 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 (Dexcom G4 00 daily and [place] as needed Rcv/Share) does not apply Device Continuous 2022-0 Yes [id number] Check K elsey Blood Gluc 2-23 Seybold Sensor 00:00: (Dexcom G6 00 Sensor) does not apply Misc Continuous 2022-0 Yes [id number] Check K elsey Blood Gluc 2-23 sugar 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 (Dexcom G4 00 daily and [place] as needed Rcv/Share) does not apply Device Continuous 2022-0 Yes [id number] Check K elsey Blood Gluc 2-23 Seybold Sensor 00:00: (Dexcom G6 00 Sensor) does not apply Misc Continuous 2022-0 Yes [id number] Check K elsey Blood Gluc 2-23 sugar 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 (Dexcom G4 00 daily and [place] as needed Rcv/Share) does not apply Device Continuous 2022-0 Yes [id number] Check K elsey Blood Gluc 2-23 Seybold Sensor 00:00: (Dexcom G6 00 Sensor) does not apply Misc Continuous 2022-0 Yes [id number] Check K elsey Blood Gluc 2-23 sugar 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 (Dexcom G4 00 daily and [place] as needed Rcv/Share) does not apply Device Continuous 2022-0 Yes [id number] Check K elsey Blood Gluc 2-23 Seybold Sensor 00:00: (Dexcom G6 00 Sensor) does not apply Misc Continuous 2022-0 Yes [id number] Check K elsey Blood Gluc 2-23 sugar 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 (Dexcom G4 00 daily and [place] as needed Rcv/Share) does not apply Device Continuous 2022-0 Yes [id number] Check K elsey Blood Gluc 2-23 Seybold Sensor 00:00: (Dexcom G6 00 Sensor) does not apply Misc Continuous 2022-0 Yes [id number] Check K elsey Blood Gluc 2-23 sugar 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 (Dexcom G4 00 daily and [place] as needed Rcv/Share) does not apply Device Continuous 2022-0 Yes [id number] Check K elsey Blood Gluc 2-23 Seybold Sensor 00:00: (Dexcom G6 00 Sensor) does not apply Misc Continuous Yes [id number] Check K elsey Blood Gluc 2-23 sugar 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 (Dexcom G4 00 daily and [place] as needed Rcv/Share) does not apply Device Continuous Yes [id number] Check K elsey Blood Gluc 2-23 sugar 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 - (Dexcom G4 00 daily and Exte rna [place] as needed l Rcv/Share) does not apply Device Continuous Yes [id number] Check K elsey Blood Gluc 2-23 sugar 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 - (Dexcom G4 00 daily and Exte rna [place] as needed l Rcv/Share) does not apply Device Continuous Yes [id number] Check K elsey Blood Gluc 2-23 sugar 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 - (Dexcom G4 00 daily and Exte rna [place] as needed l Rcv/Share) does not apply Device Continuous Yes [id number] Check K elsey Blood Gluc 2-23 sugar 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 - (Dexcom G4 00 daily and Exte rna [place] as needed l Rcv/Share) does not apply Device Continuous Yes [id number] Check K elsey Blood Gluc 2-23 sugar 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 - (Dexcom G4 00 daily and Exte rna Hughes as needed l Rcv/Share) does not apply Device Docusate Yes Cheyenne Sodium 100 2-22 Seybold MG oral 00:00: Capsule 00 Docusate 0 Yes Cheyenne Sodium 100 2-22 Seybold MG oral 00:00: Capsule 00 Docusate 2021-0 2021- No [place] Sodium 100 2-22 03-23 Seybold MG oral 00:00: 00:00 Capsule 00 :00 Lisinopril 2021-0 2021- No Cheyenne 40 MG oral 2-22 02-24 Seybold Tablet 00:00: 00:00 00 :00 Tamsulosin 0 Yes 1{capsu Take 1 Ke lsey HCl 0.4 MG 2-18 le} capsule by Sey bold oral 00:00: mouth Capsule 00 daily Amlodipine 2022-0 Yes 10mg Take 10 mg K elsey [...] 00:00: 00:00 daily Tablet 00 :00 Metoprolol 2-0 Yes [id number] TAKE 1 K elsey Tartrate 50 2-17 TABLET BY Sey bold MG oral 00:00: MOUTH 2 Tablet 00 TIMES DAILY Tizanidine 2021-0 Yes TAKE 3 Kelse y HCl 2 MG 2-17 TABLETS BY Seybo ld oral Tablet 00:00: MOUTH 00 EVERY 6 HOURS Metoprolol 2-0 Yes [id number] TAKE 1 K elsey Tartrate 50 2-17 [...] d oral 00:00: daily Capsule 00 Fluoxetine 2021-0 Yes 40mg Take 40 mg K elsey HCl 40 MG 2-11 by mouth Seybol d oral 00:00: daily Capsule 00 Fluoxetine 2021-0 Yes 40mg Take 40 mg [...] MOUTH DAILY AT BEDTIME Fluoxetine 2021-0 Yes [id number] Take by Cheyenne HCl 20 MG 1-27 mouth 2 Seybold oral 08:05: times Capsule 51 daily Metformin 2021-0 Yes [id number] 1000mg Take 1,000 Cheyenne HCl 1000 MG 1-27 mg by Seybold oral Tablet 08:05: mouth 32 daily HYDROcodone 2021-0 Yes [id number] Take by Cheyenne -Acetaminop 1-27 mouth Seybold hen 10-325 08:05: MG oral 25 Tablet Tizanidine 2021-0 Yes [id number] every 6 Cheyenne HCl 1-27 (six) Seybold (Zanaflex) 08:05: hours 2 MG oral 25 Capsule HYDROcodone 2021-0 Yes [id number] Take by Cheyenne -Acetaminop 1-27 mouth Seybold hen 10-325 08:05: MG oral 25 Tablet Tizanidine 2021-0 Yes [id number] every 6 Cheyenne HCl 1-27 (six) Seybold (Zanaflex) 08:05: hours 2 MG oral 25 Capsule Docusate 2021-0 Yes [id number] 100mg Take 100 Che[place]enne Sodium 100 1-26 mg by Seybold MG oral 00:00: mouth 2 Tablet 00 times daily Sennosides 2021-0 Yes [id number] 1{capsu Take 1 Cheyenne (Senna) 8.6 1-26 le} capsule by Se ybold MG oral 00:00: mouth Capsule 00 daily Docusate 2021-0 Yes [id number] 100mg Take 100 [place]enne Sodium 100 1-26 mg by Seybold MG oral 00:00: mouth 2 Tablet 00 times daily Sennosides 2021-0 Yes [id number] 1{capsu Take 1 Cheyenne (Senna) 8.6 1-26 le} capsule by Se ybold MG oral 00:00: mouth Capsule 00 daily Sennosides 2020 Yes [id number] 1{capsu Take 1 Cheyenne (Senna) 8.6 1-26 le} capsule by Se ybold MG oral 00:00: mouth Capsule 00 daily Sennosides 202-0 Yes [id number] 1{capsu Take 1 Che[place]enne (Senna) 8.6 1-26 le} capsule by Se ybold MG oral 00:00: mouth Capsule 00 daily Sennosides 2020 Yes [id number] 1{capsu Take 1 Che[place]enne (Senna) 8.6 1-26 le} capsule by Se ybold MG oral 00:00: mouth Capsule 00 daily Sennosides 0 Yes [id number] 1{capsu Take 1 Che[place]enne (Senna) 8.6 1-26 le} capsule by Se ybold MG oral 00:00: mouth Capsule 00 daily Sennosides 2020 Yes [id number] 1{capsu Take 1 Che[place]enne (Senna) 8.6 1-26 le} capsule by Se ybold MG oral 00:00: mouth Capsule 00 daily Sennosides 0 Yes [id number] 1{capsu Take 1 Cheyenne (Senna) 8.6 1-26 le} capsule by Se ybold MG oral 00:00: mouth Capsule 00 daily Metoprolol 0 Yes [id number] 50mg Take 1 K elsey Tartrate 50 1-26 tablet (50 Se ybold MG oral 00:00: mg total) Tablet 00 by mouth 2 times daily Sennosides 0 Yes [id number] 1{capsu Take 1 Cheyenne (Senna) 8.6 1-26 le} capsule by Se ybold MG oral 00:00: mouth Capsule 00 daily Docusate 0 Yes [id number] 100mg Take 100 [place] Sodium 100 1-26 mg by Seybold MG oral 00:00: mouth 2 Tablet 00 times daily Sennosides 0 Yes [id number] 1{capsu Take 1 Cheyenne (Senna) 8.6 1-26 le} capsule by Se ybold MG oral 00:00: mouth Capsule 00 daily Sennosides 2020 Yes [id number] 1{capsu Take 1 [place]enne (Senna) 8.6 1-26 le} capsule by Se ybold MG oral 00:00: mouth - Capsule 00 daily Externa l Sennosides 2021-0 Yes [id number] 1{capsu Take 1 Cheyenne (Senna) 8.6 1-26 le} capsule by Se ybold MG oral 00:00: mouth - Capsule 00 daily Externa l Sennosides 2-0 Yes [id number] 1{capsu Take 1 Cheyenne (Senna) 8.6 1-26 le} capsule by Se ybold MG oral 00:00: mouth - Capsule 00 daily Externa l Sennosides 2021-0 Yes [id number] 1{capsu Take 1 Cheyenne (Senna) 8.6 1-26 le} capsule by Se ybold MG oral 00:00: mouth - Capsule 00 daily Externa l Sennosides 2021-0 Yes [id number] 1{capsu Take 1 Cheyenne (Senna) 8.6 1-26 le} capsule by Se ybold MG oral 00:00: mouth - Capsule 00 daily Externa l Gabapentin 2022-0 Yes [id number] Ke lsey 800 MG oral 1-24 Seybold Tablet 00:00: 00 Gabapentin 2022-0 Yes [id number] Ke lsey 800 MG oral 1-24 Seybold Tablet 00:00: 00 Gabapentin 2022-0 Yes [id number] Ke lsey 800 MG oral 1-24 Seybold Tablet 00:00: 00 Gabapentin 2022-0 Yes [id number] Ke lsey 800 MG oral 1-24 Seybold Tablet 00:00: 00 Gabapentin 2022-0 Yes [id number] Ke lsey 800 MG oral 1-24 Seybold Tablet 00:00: 00 Gabapentin 2022-0 Yes [id number] Ke lsey 800 MG oral 1-24 Seybold Tablet 00:00: 00 Gabapentin 2022-0 Yes [id number] Ke lsey 800 MG oral 1-24 Seybold Tablet 00:00: 00 Gabapentin 2022-0 Yes [id number] Ke lsey 800 MG oral 1-24 Seybold Tablet 00:00: 00 Gabapentin 2022-0 Yes [id number] Ke lsey 800 MG oral 1-24 Seybold Tablet 00:00: 00 Gabapentin 2022-0 Yes [id number] Ke lsey 800 MG oral 1-24 Seybold Tablet 00:00: 00 Gabapentin 2022-0 2022- No [id number] K elsey 800 MG oral 124 11-28 Seybold Tablet 00:00: 00:00 - 00 :00 Externa l Morphine 2022-0 Yes [id number] Wanda ey Sulfate ER 1-15 Seybold 15 MG oral 00:00: Tab CR 00 Morphine 2022-0 Yes [id number] Wanda ey Sulfate ER 1-15 Seybold 15 MG oral 00:00: Tab CR 00 Morphine 2022-0 Yes [id number] Wanda ey Sulfate ER 1-15 Seybold 15 MG oral 00:00: Tab CR 00 Morphine 2022-0 Yes [id number] Wanda ey Sulfate ER 1-15 Seybold 15 MG oral 00:00: Tab CR 00 Morphine 2022-0 Yes [id number] Wanda ey Sulfate ER 1-15 Seybold 15 MG oral 00:00: Tab CR 00 Morphine 2022-0 Yes [id number] Wanda ey Sulfate ER 1-15 Seybold 15 MG oral 00:00: Tab CR 00 Morphine 2022-0 Yes [id number] Wanda ey Sulfate ER 1-15 Seybold 15 MG oral 00:00: Tab CR 00 Morphine 2022-0 Yes [id number] Wanda ey Sulfate ER 1-15 Seybold 15 MG oral 00:00: Tab CR 00 Morphine 2022-0 Yes [id number] Wanda ey Sulfate ER 1-15 Seybold 15 MG oral 00:00: Tab CR 00 Morphine 2022-0 Yes [id number] Wanda ey Sulfate ER 1-15 Seybold 15 MG oral 00:00: Tab CR 00 Morphine 2022-0 Yes [id number] Wanda ey Sulfate ER 1-15 Seybold 15 MG oral 00:00: - Tab CR 00 Externa l Morphine 2022-0 Yes [id number] Wanda ey Sulfate ER 1-15 Seybold 15 MG oral 00:00: - Tab CR 00 Externa l Morphine 2022-0 Yes [id number] Wanda ey Sulfate ER 1-15 Seybold 15 MG oral 00:00: - Tab CR 00 Externa l Doxepin HCl 2022-0 Yes [id number] Ke lsey 25 MG oral 1-12 Seybold Capsule 00:00: 00 Doxepin HCl 2022-0 Yes [id number] Ke lsey 25 MG oral 1-12 Seybold Capsule 00:00: 00 Doxepin HCl 2022-0 Yes [id number] Ke lsey 25 MG oral -12 Seybold Capsule 00:00: 00 Doxepin HCl 2022-0 2022- No [id number] K elsey 25 MG oral -01 10- Seybold Capsule 00:00: 00:00 00 :00 Lokelma 10 2022-0 Yes [id number] Cole sey g oral Pack 1-10 Seybold 00:00: 00 Lokelma 10 2022-0 Yes [id number] Cole sey g oral Pack 1-10 Seybold 00:00: 00 Lokelma 10 2022-0 Yes [id number] Cole sey g oral Pack 1-10 Seybold 00:00: 00 Lokelma 10 2022-0 Yes [id number] Cole sey g oral Pack 1-10 Seybold 00:00: 00 Lokelma 10 2022-0 Yes [id number] Cole sey g oral Pack 1-10 Seybold 00:00: 00 Lokelma 10 2022-0 Yes [id number] Cole sey g oral Pack 1-10 Seybold 00:00: 00 Lokelma 10 2022-0 Yes [id number] Cole sey g oral Pack 1-10 Seybold 00:00: 00 Lokelma 10 2022-0 Yes [id number] Cole sey g oral Pack 1-10 Seybold 00:00: 00 Lokelma 10 2022-0 Yes [id number] Cole sey g oral Pack 1-10 Seybold 00:00: 00 Lokelma 10 2022-0 Yes [id number] Cole sey g oral Pack 1-10 Seybold 00:00: 00 Sodium 2022-0 2023- No [id number] 650mg Take 650 K elsey Bicarbonate 1-10 -11 mg by Seybol d 650 MG oral 00:00: 05:59 mouth 3 Tablet 00 :00 times daily Sodium 2022-0 2023- No [id number] 650mg Take 650 K elsey Bicarbonate 1-10 -11 mg by Seybol d 650 MG oral 00:00: 05:59 mouth 3 Tablet 00 :00 times daily Sodium 2022-0 2023- No [id number] 650mg Take 650 K elsey Bicarbonate 1-10 01-11 mg by Seybol d 650 MG oral 00:00: 05:59 mouth 3 Tablet 00 :00 times daily Sodium 2021-0 3- No [id number] 650mg Take 650 K elsey Bicarbonate 1-10 01-11 mg by Seybol d 650 MG oral 00:00: 05:59 mouth 3 Tablet 00 :00 times daily Sodium 2021-0 2023- No [id number] 650mg Take 650 K elsey Bicarbonate 1-10 01-11 mg by Seybol d 650 MG oral 00:00: 05:59 mouth 3 Tablet 00 :00 times daily Sodium 2021-0 3- No [id number] 650mg Take 650 K elsey Bicarbonate 1-10 01-11 mg by Seybol d 650 MG oral 00:00: 05:59 mouth 3 Tablet 00 :00 times daily Sodium 2021-0 3- No [id number] 650mg Take 650 K elsey Bicarbonate 1-10 01-11 mg by Seybol d 650 MG oral 00:00: 05:59 mouth 3 Tablet 00 :00 times daily Sodium 2021-0 3- No [id number] 650mg Take 650 K elsey Bicarbonate 1-10 01-11 mg by Seybol d 650 MG oral 00:00: 05:59 mouth 3 Tablet 00 :00 times daily Sodium 2021-0 3- No [id number] 650mg Take 650 K elsey Bicarbonate 1-10 01-11 mg by Seybol d 650 MG oral 00:00: 05:59 mouth 3 Tablet 00 :00 times daily Sodium 2021-0 3- No [id number] 650mg Take 650 K elsey Bicarbonate 1-10 01-11 mg by Seybol d 650 MG oral 00:00: 05:59 mouth 3 Tablet 00 :00 times daily Movantik 25 2021-0 Yes [id number] K elsey MG oral 1-05 Seybold Tablet 00:00: 00 Movantik 25 2021-0 Yes [id number] K elsey MG oral 1-05 Seybold Tablet 00:00: 00 Movantik 25 2021-0 Yes [id number] K elsey MG oral 1-05 Seybold Tablet 00:00: 00 Movantik 25 2021-0 Yes [id number] K elsey MG oral 1-05 Seybold Tablet 00:00: 00 Movantik 25 2021-0 Yes [id number] K elsey MG oral 1-05 Seybold Tablet 00:00: 00 Movantik 25 2021-0 Yes [id number] K elsey MG oral 1-05 Seybold Tablet 00:00: 00 Movantik 25 2021-0 Yes [id number] K elsey MG oral 1-05 Seybold Tablet 00:00: 00 Movantik 25 2021-0 Yes [id number] K elsey MG oral 1-05 Seybold Tablet 00:00: 00 Movantik 25 2021-0 Yes [id number] K elsey MG oral 1-05 Seybold Tablet 00:00: 00 Movantik 2021-0 Yes [id number] K elsey MG oral 1-05 Seybold Tablet 00:00: 00 Ferrous 2020-02 Yes [id number] Kelse y Sulfate 325 2-26 Seybold (65 Fe) MG 00:00: oral Tablet 00 Ferrous 2020-02 Yes [id number] Kelse y Sulfate 325 2-26 Seybold (65 Fe) MG 00:00: oral Tablet 00 Ferrous 2020-02 Yes [id number] Kelse y Sulfate 325 2-26 Seybold (65 Fe) MG 00:00: oral Tablet 00 Ferrous 2020-02 Yes [id number] Kelse y Sulfate 325 2-26 Seybold (65 Fe) MG 00:00: oral Tablet 00 Ferrous 2020-02 Yes [id number] Kelse y Sulfate 325 2-26 Seybold (65 Fe) MG 00:00: oral Tablet 00 Ferrous 2020-02 Yes [id number] Kelse y Sulfate 325 2-26 Seybold (65 Fe) MG 00:00: oral Tablet 00 Ferrous 2020-02 Yes [id number] Kelse y Sulfate 325 2-26 Seybold (65 Fe) MG 00:00: oral Tablet 00 Ferrous 2020-02 Yes [id number] Kelse y Sulfate 325 2-26 Seybold (65 Fe) MG 00:00: oral Tablet 00 Ferrous 2020-02 Yes [id number] Kelse y Sulfate 325 2-26 Seybold (65 Fe) MG 00:00: oral Tablet 00 Ferrous 2020-02 Yes [id number] Kelse y Sulfate 325 2-26 Seybold (65 Fe) MG 00:00: oral Tablet 00 [facility] Vitamin 2021-1 Yes [id number] K elsey B12 1000 2-08 Seybold MCG oral 00:00: Tab CR 00 Magnesium 2021-1 Yes [id number] Wanda ey Oxide 420 2-08 Seybold MG oral 00:00: Tablet 00 [facility] Vitamin 2021-1 Yes [id number] K elsey B12 1000 2-08 Seybold MCG oral 00:00: Tab CR 00 Magnesium 2021-1 Yes [id number] Wanda ey Oxide 420 2-08 Seybold MG oral 00:00: Tablet 00 [facility] Vitamin 2021-1 Yes [id number] K elsey B12 1000 2-08 Seybold MCG oral 00:00: Tab CR 00 Magnesium 2021-1 Yes [id number] Wanda ey Oxide 420 2-08 Seybold MG oral 00:00: Tablet 00 [facility] Vitamin 2021-1 Yes [id number] K elsey B12 1000 2-08 Seybold MCG oral 00:00: Tab CR 00 Magnesium 2021-1 Yes [id number] Wanda ey Oxide 420 2-08 Seybold MG oral 00:00: Tablet 00 [facility] Vitamin 2021-1 Yes [id number] K elsey B12 1000 2-08 Seybold MCG oral 00:00: Tab CR 00 Magnesium 2021-1 Yes [id number] Wanda ey Oxide 420 2-08 Seybold MG oral 00:00: Tablet 00 [facility] Vitamin 2021-1 Yes [id number] K elsey B12 1000 2-08 Seybold MCG oral 00:00: Tab CR 00 Magnesium 2021-1 Yes [id number] Wanda ey Oxide 420 2-08 Seybold MG oral 00:00: Tablet 00 [facility] Vitamin 2021-1 Yes [id number] K elsey B12 1000 2-08 Seybold MCG oral 00:00: Tab CR 00 Magnesium 2021-1 Yes [id number] Wanda ey Oxide 420 2-08 Seybold MG oral 00:00: Tablet 00 [facility] Vitamin 2021-1 Yes [id number] K elsey B12 1000 2-08 Seybold MCG oral 00:00: Tab CR 00 [facility] Vitamin 2021-1 Yes [id number] K elsey B12 1000 2-08 Seybold MCG oral 00:00: Tab CR 00 Magnesium 2021-1 Yes [id number] Wanda ey Oxide 420 2-08 Seybold MG oral 00:00: Tablet 00 Magnesium 2021-1 Yes [id number] Wanda ey Oxide 420 2-08 Seybold MG oral 00:00: Tablet 00 [facility] Vitamin 202-1 Yes [id number] K elsey B12 1000 2-08 Seybold MCG oral 00:00: Tab CR 00 Magnesium 2020-1 Yes [id number] Wanda ey Oxide 420 2-08 Seybold MG oral 00:00: Tablet 00 [facility] Vitamin 202-1 Yes [id number] K elsey B12 1000 2-08 Seybold MCG oral 00:00: - Tab CR 00 Externa l [facility] Vitamin 202-1 Yes [id number] K elsey B12 1000 2-08 Seybold MCG oral 00:00: - Tab CR 00 Externa l [facility] Vitamin 202-1 Yes [id number] K elsey B12 1000 2-08 Seybold MCG oral 00:00: - Tab CR 00 Externa l [facility] Vitamin 202-1 Yes [id number] K elsey B12 1000 2-08 Seybold MCG oral 00:00: - Tab CR 00 Externa l [facility] Vitamin 2020- Yes [id number] K elsey B12 1000 2-08 Seybold MCG oral 00:00: - Tab CR 00 Externa l Ascorbic 2020- Yes [id number] 1{tbl} Take 1 Cheyenne Acid 500 MG 1-22 tablet by Sey bold oral Tablet 00:00: mouth 2 00 times daily Ascorbic 2020- Yes [id number] 1{tbl} Take 1 [place] Acid 500 MG 1-22 tablet by Sey bold oral Tablet 00:00: mouth 2 00 times daily Ascorbic 2020- Yes [id number] 1{tbl} Take 1 [place] Acid 500 MG 1-22 tablet by Sey bold oral Tablet 00:00: mouth 2 00 times daily Ascorbic 2020- Yes [id number] 1{tbl} Take 1 [place] Acid 500 MG 1-22 tablet by Sey bold oral Tablet 00:00: mouth 2 00 times daily Ascorbic 2020- Yes [id number] 1{tbl} Take 1 [place] Acid 500 MG 1-22 tablet by Sey bold oral Tablet 00:00: mouth 2 00 times daily Ascorbic 2020- Yes [id number] 1{tbl} Take 1 [place] Acid 500 MG 1-22 tablet by Sey bold oral Tablet 00:00: mouth 2 00 times daily Ascorbic 2020-02 Yes [id number] 1{tbl} Take 1 [place] Acid 500 MG 1-22 tablet by Sey bold oral Tablet 00:00: mouth 2 00 times daily Ascorbic 2020-02 Yes [id number] 1{tbl} Take 1 [place] Acid 500 MG 1-22 tablet by Sey bold oral Tablet 00:00: mouth 2 00 times daily Ascorbic 2020-02 Yes [id number] 1{tbl} Take 1 [place] Acid 500 MG 1-22 tablet by Sey bold oral Tablet 00:00: mouth 2 00 times daily Ascorbic 2020-02 Yes [id number] 1{tbl} Take 1 [place] Acid 500 MG 1-22 tablet by Sey bold oral Tablet 00:00: mouth 2 00 times daily Amlodipine 2021- No [id number] 5mg Take 5 mg Cheyenne Besylate 5 -02 09- by mouth Seyb old MG oral 00:00: 04:59 daily Tablet 00 :00 Amlodipine 0 2021- No [id number] 5mg Take 5 mg Cheyenne Besylate 5 -02 09- by mouth Seyb old MG oral 00:00: 04:59 daily Tablet 00 :00 Amlodipine 0 2021- No [id number] 5mg Take 5 mg Cheyenne Besylate 5 7-02 09-27 by mouth Seyb old MG oral 00:00: 04:59 daily Tablet 00 :00 Amlodipine 2021- No [id number] 5mg Take 5 mg Cheyenne Besylate 5 -02 09- by mouth Seyb old MG oral 00:00: 04:59 daily Tablet 00 :00 Amlodipine 0 2021- No [id number] 5mg Take 5 mg Cheyenne Besylate 5 7-02 09-27 by mouth Seyb old MG oral 00:00: 04:59 daily Tablet 00 :00 Amlodipine 0 2021- No [id number] 5mg Take 5 mg Cheyenne Besylate 5 -03 05-29 by mouth Seyb old MG oral 00:00: 00:00 daily Tablet 00 :00 gabapentin 2019- Yes 800mg Take 800 Un luz marina 800 mg 5-17 mg by ity of tablet 00:00: mouth [place] 00 every 6 [facility] ([facility] hours. gabapentin 2019- Yes 800mg Take 800 Un luz marina [...] Name Name Influenza Virus 2021-12-01 Completed Cheyenne Sorensen ybold - Vaccine, age 6 months 00:00:00 Ext ernal and up Influenza Virus 2021-12-01 Completed Cheyenne Sorensen ybold - Vaccine, age 6 months 00:00:00 Ext ernal and up Influenza Virus 2021-12-01 Completed Cheyenne Sorensen ybold - Vaccine, age 6 months 00:00:00 Ext ernal and up Influenza Virus 2021-12-01 Completed Cheyenne Sorensen ybold - Vaccine, age 6 months 00:00:00 Ext ernal and up Influenza Virus 2021-12-01 Completed Cheyenne Sorensen ybold - Vaccine, age 6 months 00:00:00 Ext ernal and up SARS-COV-2 COVID-19 2021-01-10 Completed Unive rsity of PFIZER VACCINE 00:00:00 [facility] SARS-COV-2 COVID-19 2021-01-10 Completed Unive rsity of PFIZER VACCINE 00:00:00 [facility] SARS-COV-2 COVID-19 2021-01-10 Completed Unive rsity of PFIZER VACCINE 00:00:00 [facility] SARS-COV-2 COVID-19 2021-01-10 Completed Unive rsity of PFIZER VACCINE 00:00:00 [facility] SARS-COV-2 COVID-19 2021-01-10 Completed Unive rsity of PFIZER VACCINE 00:00:00 [facility] SARS-COV-2 COVID-19 2021-01-10 Completed Unive rsity of PFIZER VACCINE 00:00:00 [facility] SARS-COV-2 COVID-19 2021-01-10 Completed Unive rsity of PFIZER VACCINE 00:00:00 [facility] SARS-COV-2 COVID-19 2021-01-10 Completed Unive rsity of PFIZER VACCINE 00:00:00 [facility] Covid-19 Vaccine 2021-01-10 Completed Cheyenne S eybold [...] 30mcg/0.3ml,IM Covid-19 Vaccine 2021-01-10 Completed Cheyenne bloodbold - ([employer]), Mrna-lnp, 00:00:00 Exter nal Noam Protein, Pf, 30mcg/0.3ml,IM SARS-COV-2 COVID-19 2020-04-27 Completed Unive rsity of PFIZER VACCINE 00:00:00 [facility] SARS-COV-2 COVID-19 2020-04-27 Completed Unive rsity of PFIZER VACCINE 00:00:00 [facility] SARS-COV-2 COVID-19 2020-04-27 Completed Unive rsity of PFIZER VACCINE 00:00:00 [facility] SARS-COV-2 COVID-19 2020-04-27 Completed Unive rsity of PFIZER VACCINE 00:00:00 [facility] SARS-COV-2 COVID-19 2020-04-27 Completed Unive rsity of PFIZER VACCINE 00:00:00 [facility] SARS-COV-2 COVID-19 2020-04-27 Completed Unive rsity of PFIZER VACCINE 00:00:00 [facility] SARS-COV-2 COVID-19 2020-04-27 Completed Unive rsity of PFIZER VACCINE 00:00:00 [facility] SARS-COV-2 COVID-19 2020-04-27 Completed Unive rsity of PFIZER VACCINE 00:00:00 [facility] Covid-19 Vaccine 2020-04-27 Completed Cheyenne bloodbold ([employer]), Mrna-lnp, 00:00:00 Noam Protein, Pf, 30mcg/0.3ml,IM Covid-19 Vaccine 2020-04-27 Completed Cheyenne bloodbold (Pf[employer]), Mrna-lnp, 00:00:00 Noam Protein, Pf, 30mcg/0.3ml,IM Covid-19 Vaccine 2020-04-27 Completed Cheyenne Uriarte eybold (Pf[employer]), Mrna-lnp, 00:00:00 Noam Protein, Pf, 30mcg/0.3ml,IM Covid-19 Vaccine 2020-04-27 Completed Cheyenne bloodbold (Pfizer), Mrna-lnp, 00:00:00 Noam Protein, Pf, 30mcg/0.3ml,IM Covid-19 Vaccine 2020-04-27 Completed Cheyenne S eybold ([facility]), Mrna-lnp, 00:00:00 Noam Protein, Pf, 30mcg/0.3ml,IM Covid-19 Vaccine 2020-04-27 Completed Cheyenne S eybold (Pf[employer]), Mrna-lnp, 00:00:00 Noam Protein, Pf, 30mcg/0.3ml,IM Covid-19 Vaccine 2020-04-27 Completed Cheyenne S eybold ([facility]), Mrna-lnp, 00:00:00 Noam Protein, Pf, 30mcg/0.3ml,IM Covid-19 Vaccine 2020-04-27 Completed Cheyenne S eybold ([facility]), Mrna-lnp, 00:00:00 Noam Protein, Pf, 30mcg/0.3ml,IM Covid-19 Vaccine 2020-04-27 Completed Cheyenne S eybold ([facility]), Mrna-lnp, 00:00:00 Noam Protein, Pf, 30mcg/0.3ml,IM Covid-19 Vaccine 2020-04-27 Completed Cheyenne S eybold ([facility]), Mrna-lnp, 00:00:00 Noam Protein, Pf, 30mcg/0.3ml,IM Covid-19 Vaccine 2020-04-27 Completed Cheyenne S eybold ([employer]), Mrna-lnp, 00:00:00 Noam Protein, Pf, 30mcg/0.3ml,IM Covid-19 Vaccine 2020-04-27 Completed Cheyenne S eybold ([facility]), Mrna-lnp, 00:00:00 Noam Protein, Pf, 30mcg/0.3ml,IM Covid-19 Vaccine 2020-04-27 Completed Cheyenne S eybold ([employer]), Mrna-lnp, 00:00:00 Noam Protein, Pf, 30mcg/0.3ml,IM Covid-19 Vaccine 2020-04-27 Completed Cheyenne S eybold (Pf[employer]), Mrna-lnp, 00:00:00 Noam Protein, Pf, 30mcg/0.3ml,IM Covid-19 Vaccine 2020-04-27 Completed Cheyenne S eybold ([facility]), Mrna-lnp, 00:00:00 Noam Protein, Pf, 30mcg/0.3ml,IM Covid-19 Vaccine 2020-04-27 Completed Cheyenne S eybold ([facility]), Mrna-lnp, 00:00:00 Noam Protein, Pf, 30mcg/0.3ml,IM Covid-19 Vaccine 2020-04-27 Completed Cheyenne S eybold ([facility]), Mrna-lnp, 00:00:00 Noam Protein, Pf, 30mcg/0.3ml,IM Covid-19 Vaccine 2020-04-27 Completed Cheyenne S eybold ([employer]), Mrna-lnp, 00:00:00 Noam Protein, Pf, 30mcg/0.3ml,IM Covid-19 Vaccine 2020-04-27 Completed Cheyenne S eybold ([employer]), Mrna-lnp, 00:00:00 Noam Protein, Pf, 30mcg/0.3ml,IM Covid-19 Vaccine 2020-04-27 Completed Cheyenne S eybold - ([employer]), Mrna-lnp, 00:00:00 Exter nal Noam Protein, Pf, 30mcg/0.3ml,IM Covid-19 Vaccine 2020-04-27 Completed Cheyenne S eybold - ([facility]), Mrna-lnp, 00:00:00 Exter nal Noam Protein, Pf, 30mcg/0.3ml,IM Covid-19 Vaccine 2020-04-27 Completed Cheyenne S eybold - ([facility]), Mrna-lnp, 00:00:00 Exter nal Noam Protein, Pf, 30mcg/0.3ml,IM Covid-19 Vaccine 2020-04-27 Completed Cheyenne S eybold - ([employer]), Mrna-lnp, 00:00:00 Exter nal Noam Protein, Pf, 30mcg/0.3ml,IM Covid-19 Vaccine 2020-04-27 Completed Cheyenne S eybold - ([facility]), Mrna-lnp, 00:00:00 Exter nal Noam Protein, [...] Completed Unive rsity of PFIZER VACCINE 00:00:00 [facility] SARS-COV-2 COVID-19 2020-04-06 Completed Unive rsity of PFIZER VACCINE 00:00:00 [facility] SARS-COV-2 COVID-19 2020-04-06 Completed Unive rsity of PFIZER VACCINE 00:00:00 [facility] SARS-COV-2 COVID-19 2020-04-06 Completed Unive rsity of PFIZER VACCINE 00:00:00 [facility] SARS-COV-2 COVID-19 2020-04-06 Completed Unive rsity of PFIZER VACCINE 00:00:00 [facility] SARS-COV-2 COVID-19 2020-04-06 Completed Unive rsity of PFIZER VACCINE 00:00:00 [facility] SARS-COV-2 COVID-19 2020-04-06 Completed Unive rsity of PFIZER VACCINE 00:00:00 [facility] SARS-COV-2 COVID-19 2020-04-06 Completed Unive rsity of PFIZER VACCINE 00:00:00 [facility] Covid-19 Vaccine 2020-04-06 Completed Cheyenne S eybold ([facility]), Mrna-lnp, 00:00:00 Noam Protein, Pf, 30mcg/0.3ml,IM [...] Covid-19 Vaccine 2020-04-06 Completed Cheyenne S eybold ([facility]), Mrna-lnp, 00:00:00 Noam Protein, Pf, 30mcg/0.3ml,IM Covid-19 Vaccine 2020-04-06 Completed Cheyenne S eybold ([facility]), Mrna-lnp, 00:00:00 [employer], Pf, 30mcg/0.3ml,IM Covid-19 Vaccine 2020-04-06 Completed Cheyenne S eybold ([facility]), Mrna-lnp, 00:00:00 No[employer], Pf, 30mcg/0.3ml,IM Covid-19 Vaccine 2020-04-06 Completed Cheyenne S eybold ([employer]), Mrna-lnp, 00:00:00 Noam Protein, Pf, 30mcg/0.3ml,IM Covid-19 Vaccine 2020-04-06 Completed Cheyenne S eybold ([facility]), Mrna-lnp, 00:00:00 Noam Protein, Pf, 30mcg/0.3ml,IM Covid-19 Vaccine 2020-04-06 Completed Cheyenne S eybold ([facility]), Mrna-lnp, 00:00:00 Noam Protein, Pf, 30mcg/0.3ml,IM Covid-19 Vaccine 2020-04-06 Completed Cheyenne S eybold ([facility]), Mrna-lnp, 00:00:00 Noam Protein, Pf, 30mcg/0.3ml,IM Covid-19 Vaccine 2020-04-06 Completed Cheyenne S eybold ([facility]), Mrna-lnp, 00:00:00 Noam Protein, Pf, 30mcg/0.3ml,IM Covid-19 Vaccine 2020-04-06 Completed Cheyenne S eybold - ([employer]), Mrna-lnp, 00:00:00 Exter nal Noam Protein, Pf, [...] 00:00:00 Exter nal Noam Protein, Pf, 30mcg/0.3ml,IM Influenza Virus 2018-11-01 Completed [facility] 00:00[facility]00 [facility] Influenza Virus 2018-11-01 Completed [facility]00 [facility] Influenza Virus 2018-11-01 Completed [facility] (3[facility] y[facility]) 00:00:00 [facility] Influenza Virus 2018-11-01 Completed [facility]00 [facility] Influenza Virus 2018-11-01 Completed [facility] (3[facility] yrs) 00:00:00 [facility] Influenza Virus 2018-11-01 Completed [facility] 00:00:00 [facility] Influenza Virus 2018-11-01 Completed [facility]) 00:00:00 [facility] Influenza Virus 2018-11-01 Completed [facility] 00:00[facility]00 [facility] Influenza Virus 2018-11-01 Completed [facility] Vaccine (3+ yrs) 00:00:00 [facility] Influenza Virus 2018-11-01 Completed [facility]ine 00:00:00 [facility] Influenza Virus 2018-11-01 Completed [facility] Vaccine (3+ yrs) 00:00:00 [facility] Influenza Virus 2018-11-01 Completed [facility] 00:00:00 [facility] Influenza Virus 2018-11-01 Completed [facility] Vaccine (3+ yrs) 00:00:00 [facility] Influenza Virus 2018-11-01 Completed [facility]ine 00:00:00 [facility] Influenza Virus 2018-11-01 Completed [facility] Vaccine (3+ yrs) 00:00:00 [facility] Influenza Virus 2018-11-01 Completed [facility] 00:00:00 [facility] Influenza, Seasonal, 2018-11-01 Completed Wanda ey Seybold [...] - Vaccine, Unspecified 00:00:00 Exte rnal Formulation Pneumococcal 2018-09-08 Completed [facility] [...] sey Seybold - Polysaccharide 00:00:00 External Pneumococcal Vaccine, 2018-09-08 Completed Cole sey Seybold - Polysaccharide 00:00:00 External Pneumococcal Vaccine, 2018-09-08 Completed Cole sey Seybold - Polysaccharide 00:00:00 External Pneumococcal Vaccine, 2018-09-08 Completed Cole sey Seybold - Polysaccharide 00:00:00 External Pneumococcal Vaccine, 2018-09-08 Completed Cloe sorenseny Seybold - Polysaccharide 00:00:00 External Vital Signs Vital Name Observation Time Observation Value Comments Source HEIGHT 2022-03-04 11:48:00 188 cm WEIGHT 2022-03-04 11:48:00 124.739 kg HEIGHT 2022-03-04 11:48:00 188 cm WEIGHT 2022-03-04 11:48:00 124.739 kg HEIGHT 2022-03-04 11:48:00 188 cm WEIGHT 2022-03-04 11:48:00 124.739 kg Systolic blood 2022-02-18 14:55:00 152 mm[Hg] Cheyenne Seybold - pressure External Diastolic blood 2022-02-18 14:55:00 84 mm[Hg] Colese y Seybold - pressure External Heart rate 2022-02-18 14:55:00 68 /min Cheyenne Uriarte eybold - External Respiratory rate 2022-02-18 14:55:00 16 /min Wanda blood Seybold - External Body height 2022-02-18 14:55:00 188 cm Cheyenne Uriarte eybold - External Body weight 2022-02-18 14:55:00 120.203 kg Cheyenne Uriarte eybold - External BMI 2022-02-18 14:55:00 34.02 kg/m2 Cheyenne Uriarte eybold - External Systolic blood 2022-01-13 19:50:00 142 mm[Hg] Cheyenne Seybold - pressure External Diastolic blood 2022-01-13 19:50:00 80 mm[Hg] Colese y Seybold - pressure External Heart rate 2022-01-13 19:50:00 84 /min Cheyenne Uriarte eybold - External Body temperature 2022-01-13 19:50:00 36.44 Carlyn Wanda ey Seybold - External Respiratory rate 2022-01-13 19:50:00 14 /min Wanda ey Seybold - External Body height 2022-01-13 19:50:00 188 cm Cheyenne Uriarte eybold - External Body weight 2022-01-13 19:50:00 122.018 kg Cheyenne Uriarte eybold - External BMI 2022-01-13 19:50:00 34.54 kg/m2 Cheyenne Uriarte eybold - External Oxygen saturation in 2022-01-13 19:50:00 99 /min Cheyenne Seybold - Arterial blood by External Pulse oximetry [...] External Body weight 2021-10-08 14:40:00 120.203 kg [facility] BMI 2021-10-08 14:40:00 34.02 kg/m2 [facility] Systolic blood 2021-06-25 16:08:00 [...] Body height 2021-04-02 16:06:00 188 cm Cheyenne bloodbocinthia Body weight 2021-04-02 16:06:00 122.471 kg Cheyenne bloodbold BMI 2021-04-02 16:06:00 34.67 kg/m2 Cheyenne Uriarte eybold Systolic blood 2021-03-05 16:16:00 164 mm[Hg] Cheyenne Seybold pressure Diastolic blood 2021-03-05 16:16:00 86 mm[Hg] Kelse y Seybold pressure Heart rate 2021-03-05 16:16:00 106 /min Cheyenne Uriarte eybold Body temperature 2021-03-05 16:16:00 35.67 Carlyn Wanda ey Seybold Respiratory rate 2021-03-05 16:16:00 12 /min Wanda blood Seybold Body height 2021-03-05 16:16:00 188 cm Cheyenne bloodbocinthia Body weight 2021-03-05 16:16:00 118.842 kg Cheyenne bloodbocinthia BMI 2021-03-05 16:16:00 33.64 kg/m2 Cheyenne bloodbold Systolic blood 2022-03-04 17:05:00 158 mm[Hg] [facility] Diastolic blood 2022-03-04 17:05:00 91 mm[Hg] [facility] Heart rate 2022-03-04 17:05:00 86 /min [facility] Respiratory rate 2022-03-04 17:05:00 17 /min [facility] Oxygen saturation in 2022-03-04 17:05:00 98 /min [facility] Arterial blood by Medical Ce nter Pulse oximetry Body temperature 2022-03-04 15:47:00 37.11 Carlyn [facility] Body height 2022-03-04 11:48:00 188 cm [facility] Body weight 2022-03-04 11:48:00 124.739 kg [facility] BMI 2022-03-04 11:48:00 35.31 kg/m2 [facility] Procedures Procedure Date / Time Performing Clinician Source Performed SURGICAL PATHOLOGY 2022-03-05 00:41:00 [facility] RE[facility] EYE CULTURE 2022-03-04 21:33:00 Hank Lepe ospital [facility] EYE CULTURE, ANAEROBIC 2022-03-04 21:33:00 [facility] 2022-03-04 21:33:00 Hank Lepe ospital [facility] FUNGUS CULTURE 2022-03-04 [facility] POCT-GLUCOSE METER 2022-03-04 15:56:00 Hank Lepe [facility] KERATOPLASTY, 2022-03-04 13:31:00 Hank Lepe [facility] PENETRATING [facility] POCT-GLUCOSE METER 2022-03-04 11:59:00 Roberth [facility] B-SCAN ULTRASOUND - OS - 2022-03-03 16:34:23 [facility] EYE Medicine AUTHORIZATION FOR 2022-01-28 06:01:00 Doctor Unassigned, No [facility] RELEASE OF PHI Name [facility] OPHTHALMOLOGY DIAGNOSTIC 2021-12-02 05:01:00 Doctor Unassigned, No [facility] TEST Name [facility] OU CORNEAL TOPOGRAPHY, 2021-12-02 00:00:00 Micah Serrano [facility] BOTH EYES [facility] HEPATITIS B SURFACE 2021-09-12 03:08:00 [facility] ANTIGEN Center HEPATITIS B SURFACE 2021-09-12 03:08:00 [facility] ANTIBODY Center HEPATITIS B CORE 2021-09-12 03:08:00 [facility] ANTIBODY, TOTAL Center FUNGUS CULTURE 2021-06-26 02:23:00 Neftali Parker [facility] SHOULDER 3 VIEW RIGHT 2021-05-16 16:50:00 Ryder Nathan (ORTHO) KNEE ROUTINE 40 YEARS 2021-05-16 16:20:08 Ryder Nathan AND OLDER RIGHT HIPS BILATERAL 2021-04-07 16:58:39 Dianna Johnson LUMBAR SPINE 2 VIEWS 2021-04-07 16:54:49 Dianna Johnson LUMBAR SPINE 2021-04-07 16:45:43 Dianna Johnson ld FLEX/EXTENSION ONLY CERVICAL SPINE - 2 VIEW 2021-04-07 16:44:19 Dianna Johnson URINALYSIS, ROUTINE 2021-04-02 17:46:00 Caroline Vallebocinthia MICROSCOPIC EXAMINATION 2021-04-02 17:46:00 Caroline Valle PHOSPHORUS, SERUM 2021-04-02 17:27:00 Caroline Valle MAGNESIUM, SERUM 2021-04-02 17:27:00 Caroline Valle COMP. METABOLIC PANEL 2021-04-02 17:27:00 Caroline Valle (14) Plan of Care Planned Activity Planned Date Details Comments Source Future Scheduled 2023-03-[address] [facility] 00[facility] (12+) [code = Tobacco Cessation Counseling and Screening (12+)] Future Scheduled 2023-03-[address] [facility] Test 00:00:00 [facility] (12+) [code = Tobacco Cessation Counseling and Screening (12+)] Future Scheduled 2023-03-[address] [facility] Test 00:00:00 [facility] (12+) [code = Tobacco Cessation Counseling and Screening (12+)] Future Scheduled 2023-03-[address] [facility] Test 00:00:00 [facility] (12+) [code = Tobacco Cessation Counseling and Screening (12+)] Future Scheduled 2023-03-[address] [facility] Test 00:00:00 [facility] (12+) [code = Tobacco Cessation Counseling and Screening (12+)] Future Scheduled 2023-03-[address] [facility] Test 00:00:00 [facility] (12+) [code = Tobacco Cessation Counseling and Screening (12+)] Future Scheduled 2023-03-[address] [facility] Test 00:00:00 [facility] (12+) [code = Tobacco Cessation Counseling and Screening (12+)] Future Scheduled 2023-03-[address] [facility] Test 00:00:00 [facility] (12+) [code = Tobacco Cessation Counseling and Screening (12+)] Future Scheduled 2023-03-[address] [facility] Test 00:00:00 [facility] (12+) [code = Tobacco Cessation Counseling and Screening (12+)] Future Scheduled 2023-03-[address] [facility] Test 00:00:00 [facility] (12+) [code = Tobacco Cessation Counseling and Screening (12+)] Future Scheduled 2022-04-14 COVID-19 VACCINE (4 - [facility] Test 01:33:47 Booster for Pfizer series) [code = COVID-19 VACCINE (4 - Booster for Pfizer series)] Future Scheduled 2022-04-14 COLONOSCOPY SCREENING [facility] Test 01:33:47 [code = COLONOSCOPY SCREENING] Future Scheduled 2022-02-[address] [facility] Test 00:00:00 (12+) [code = Medical Center DEPRESSION SCREENING (12+)] Future Scheduled 2022-02-[address] [facility] Test 00:00:00 (12+) [code = Medical Center DEPRESSION SCREENING (12+)] Future Scheduled 2022-02-[address] [facility] Test 00:00:00 (12+) [code = Medical Center DEPRESSION SCREENING (12+)] Future Scheduled 2022-02-[address] [facility] Test 00:00:00 (12+) [code = Medical Center DEPRESSION SCREENING (12+)] Future Scheduled 2022-02-[address] [facility] Test 00:00:00 (12+) [code = Medical Center DEPRESSION SCREENING (12+)] Future Scheduled 2022-02-[address] [facility] Test 00:00:00 (12+) [code = Medical Center DEPRESSION SCREENING (12+)] Future Scheduled 2022-02-[address] [facility] Test 00:00:00 (12+) [code = Medical Center DEPRESSION SCREENING (12+)] Future Scheduled 2022-02-[address] [facility] Test 00:00:00 (12+) [code = Medical Center DEPRESSION SCREENING (12+)] Future Scheduled 2022-02-[address] [facility] Test 00:00:00 (12+) [code = Medical Center DEPRESSION SCREENING (12+)] Future Scheduled 2022-02-[address] [facility] Test 00:00:00 (12+) [code = Medical Center DEPRESSION SCREENING (12+)] Future Scheduled 2022-01-21 COLONOSCOPY SCREENING [facility] Test 05:11:07 [code = COLONOSCOPY SCREENING] Future Scheduled 2022-01-21 [facility]-19 [facility]ACC[facility]:11[facility]07 Booster for Pfizer series) [code = COVID-19 VACCINE (4 - Booster for Pfizer series)] Future Scheduled 2022-01-21 [facility]:11:07 [code = INFLUENZA VACCINE] Future Scheduled 2021-12-10 HEPATITIS B VACCINES Met [facility] Test 05:45:32 (1 of 3 - 3-dose series) [code = HEPATITIS B VACCINES (1 of 3 - 3-dose series)] Future Scheduled 2021-12-10 COLONOSCOPY SCREENING [facility] Test 05:45:32 [code = COLONOSCOPY SCREENING] Future Scheduled 2021-12-10 COVID[facility]19 [facility] 05:45:32 Booster for Pfizer series) [code = COVID-19 VACCINE (4 - Booster for Pfizer series)] Future Scheduled 2021-12-10 [facility]UENZA [facility]ACCINE [facility] 05:45:32 [code = INFLUENZA VACCINE] Future Scheduled 2021-12-10 HEPATITIS B VACCINES Met [facility] Test 05:45:32 (1 of 3 - 3-dose series) [code = HEPATITIS B VACCINES (1 of 3 - 3-dose series)] Future Scheduled 2021-12-10 COLONOSCOPY SCREENING [facility] Test 05:45:32 [code = COLONOSCOPY SCREENING] Future Scheduled 2021-12-10 COVID-19 VACCINE ([facility] - [facility] 05:45:32 Booster for Pfizer series) [code = COVID-19 VACCINE (4 - Booster for Pfizer series)] Future Scheduled 2021-12-10 INFLUENZA [facility]ACCINE [facility] 05:45:32 [code = INFLUENZA VACCINE] Future Scheduled 2021-10-29 INFLUENZA VACCINE [facility] 05:44:13 [code = INFLUENZA VACCINE] Future Scheduled 2021-10-29 HEPATITIS B VACCINES Met [facility] Test 05:44:13 (1 of 3 - 3-dose series) [code = HEPATITIS B VACCINES (1 of 3 - 3-dose series)] Future Scheduled 2021-10-29 COLONOSCOPY SCREENING [facility] Test 05:44:13 [code = COLONOSCOPY SCREENING] Future Scheduled 2021-10-29 COVID-19 VACCINE (4 - [facility] Test 05:44:13 Booster for Pfizer series) [...] [facility] Test 00:00:00 (procedure) [code = [facility] [id number]] Future Scheduled [address] [facility] 00:[facility]:00 (procedure) [code = [facility] [id number]] Future Scheduled [address] [facility] 00:00:00 (procedure) [code = [facility] [id number]] Future Scheduled [address] [facility] 00:00:00 (procedure) [code = [facility] Center 36957770] Future Scheduled [address] [facility] 00:00:00 (procedure) [code = [facility] [id number]] Future Scheduled [address] [facility] 00:00:00 (procedure) [code = [facility] [id number]] Future Scheduled [address] [facility] 00:00:00 (procedure) [code = [facility] [id number]] Future Scheduled [address] [facility] 00:00:00 (procedure) [code = [facility] 17925714] Future Scheduled [address] [facility] 00:00:00 (procedure) [code = [facility] 95853171] Future Scheduled [address] [facility] 00:00:00 (procedure) [code = [facility] 70110758] Future Scheduled [address] [facility] 00:00:00 (procedure) [code = [facility] 76008685] Future Scheduled [address] [facility] 00:00:00 (procedure) [code = [facility] 00682087] Future Scheduled 1992 DTAP/TDAP/TD VACCINES [facility] [...] [facility] Center colon (procedure) [code = 087505355] Future Scheduled [address] [facility] colon (procedure) [code = 552013832] Future Scheduled [address] [facility] 00:00:00 [facility] colon (procedure) [code = 270327921] Future Scheduled [address] [facility] 00:00:00 [facility] colon (procedure) [code = 553832950] Future Scheduled 1973 Sigmoidoscopy [facility] Cent[facility] r Future Scheduled [address] [facility] 00:00:00 (combo) [code = CT Medical C enter Colonography (combo)] Future Scheduled [address] [facility] 00:00:00 [facility] colon (procedure) [code = 396527631] Future Scheduled [address] [facility] 00:00:00 [facility] colon (procedure) [code = 737021214] Future Scheduled [address] [facility] 00:00:00 [facility] colon (procedure) [code = 198662747] Future Scheduled [address] [facility] 00:00:00 malignant [facility] colon (procedure) [code = 381386195] Future Scheduled 1973 S[facility]oidoscopy [facility]] Medical Jocelynee r Future Scheduled [address] [facility] 00:00:00 (combo) [code = CT Medical C enter Colonography (combo)] Future Scheduled [address] [facility] 00:00:00 [facility] colon (procedure) [code = 937204217] Future Scheduled [address] [facility] 00:00:00 (combo) [code = CT Medical C enter Colonography (combo)] Future Scheduled [address] [facility] 00:00:00 [facility] colon (procedure) [code = 811299671] Future Scheduled [address] [facility] 00:00:00 [facility] colon (procedure) [code = 277126662] Future Scheduled [address] [facility] 00:00:00 [facility] colon (procedure) [code = 310794907] Future Scheduled [address] [facility] 00:00:00 [facility] colon (procedure) [code = 961164820] Future Scheduled 1973 [facility] Medical Cent[facility] r Future Scheduled [address] [facility] 00:00:00 [facility] colon (procedure) [code = 159396536] Future Scheduled [address] [facility] 00:00:00 [facility] colon (procedure) [code = 300644996] Future Scheduled [address] [facility] 00:00:00 [facility] colon (procedure) [code = 208501650] Future Scheduled [address] [facility] 00:00:00 (combo) [code = CT Medical C enter Colonography (combo)] Future Scheduled [address] [facility] 00:00:00 [facility] colon (procedure) [code = 255636501] Future Scheduled [address] [facility] 00:00:00 [facility] colon (procedure) [code = 595968223] Future Scheduled [address] [facility] 00:00:00 malignant [facility] colon (procedure) [code = 068543418] Future Scheduled [address] [facility] 00:00:00 malignant [facility]oplasm [facility] colon (procedure) [code = 258427028] Future Scheduled 1973 [facility] Medical Cent[facility] r Future Scheduled 1973 S[facility]oscopy [facility]] [facility] Cent[facility] r Future Scheduled [address] [facility] 00:00:00 (combo) [code = CT Medical C enter Colonography (combo)] Future Scheduled [address] [facility] 00:[facility]:00 [facility] colon (procedure) [code = 639930063] Future Scheduled [address] [facility] 00:00:00 [facility] colon (procedure) [code = 851266439] Future Scheduled [address] [facility] 00:00:00 [facility] colon (procedure) [code = 559812142] Future Scheduled [address] [facility] 00:00:00 [facility]oplasm [facility] colon (procedure) [code = 386049630] Future Scheduled 1973 S[facility] Cent[facility] Future Scheduled [address] [facility] 00:00:00 (combo) [code = CT Medical C enter Colonography (combo)] Future Scheduled [address] [facility] 00[facility]00:00 [facility] colon (procedure) [code = 474266076] Future Scheduled [address] [facility] 00:00:00 [facility] colon (procedure) [code = 836817488] Future Scheduled [address] [facility] 00:00:00 malignant [facility] colon (procedure) [code = 264224145] Future Scheduled [address] [facility] 00:00:00 malignant neoplasm [facility] colon (procedure) [code = 340196097] Future Scheduled 1973 S[facility]oidoscopy [facility] Cent[facility] Future Scheduled [address] [facility] 00:00:00 (combo) [code = CT Medical C enter Colonography (combo)] Future Scheduled [address] [facility] 00:00:00 [facility] colon (procedure) [code = 584269401] Future Scheduled [address] [facility] 00:00:00 malignant [facility]oplasm [facility] colon (procedure) [code = 764285173] Future Scheduled [address] [facility] 00:00:00 [facility] colon (procedure) [code = 223597255] Future Scheduled [address] [facility] 00:00:00 [facility]oplasm [facility] colon (procedure) [code = 149710283] Future Scheduled 1973 Sigmoidoscopy [facility] Cent[facility] Future Scheduled [address] [facility] 00:00:00 (combo) [code = CT Medical C enter Colonography (combo)] Future Scheduled [address] [facility] 00:00:00 malignant [facility] colon (procedure) [code = 669347564] Future Scheduled [address] [facility] 00:00:00 malignant neoplasm [facility] colon (procedure) [code = 091683731] Future Scheduled [address] [facility] 00:00:00 (combo) [code = CT Medical C enter Colonography (combo)] Future Scheduled [address] [facility] 00:00:00 malignant [facility]oplasm [facility] colon (procedure) [code = 421362187] Future Scheduled [address] [facility] 00:00:00 malignant neoplasm of [facility] colon (procedure) [code = 469548780] Future Scheduled [address] [facility] 00:00:00 malignant neoplasm of [facility] colon (procedure) [code = 974459477] Future Scheduled [address] [facility] 00:00:00 malignant neoplasm of [facility] colon (procedure) [code = 765428411] Future Scheduled [address] [facility] 00:00:00 malignant neoplasm of [facility] colon (procedure) [code = 504102802] Future Scheduled 1973 Sigmoidoscopy [facility]] Medical Cente r Future Scheduled [address] [facility] 00:00:00 malignant neoplasm of [facility] colon (procedure) [code = 849068009] Future Scheduled 1973 Sigmoidoscopy [code [facility] S[facility]oidoscopy] Medical Jocelynee r Future Scheduled [address] [facility] 00:00:00 (combo) [code = CT Medical C enter Colonography (combo)] Future Scheduled [address] [facility] 00:00:00 malignant neoplasm [facility] colon (procedure) [code = 919540450] Future Scheduled [address] [facility] 00:00:00 malignant neoplasm of [facility] colon (procedure) [code = 924703215] Future Scheduled [address] [facility] 00:00:00 malignant neoplasm [facility] colon (procedure) [code = 754626714] Future Scheduled [address] [facility] 00:00:00 malignant neoplasm of [facility] colon (procedure) [code = 690011218] Future Scheduled 1973 Sigmoidoscopy [facility]] Medical Zhuo r Future Scheduled [address] [facility] 00:00:00 (combo) [code = CT Medical C enter Colonography (combo)] Future Scheduled [address] [facility] 00[facility]00:00 malignant neoplasm [facility] colon (procedure) [code = 691134032] Future Scheduled [address] [facility] 00:00:00 malignant neoplasm of [facility] colon (procedure) [code = 517505784] Future Scheduled [address] [facility] 00:00:00 malignant neoplasm of [facility] colon (procedure) [code = 840661586] Future Scheduled [address] [facility] 00:00:00 malignant neoplasm of [facility] colon (procedure) [code = 572776495] Future Scheduled 1973 S[facility]oidoscopy [facility]] Medical Zhou r Medication 2022-05-18 HYDROcodone-Acetaminop Kelse y ybold - 00:00:00 hen 10-325 MG oral External Tablet [code = 414952] Medication 2022-05-18 Morphine Sulfate ER 30 Kelse y ybold - 00:00:00 MG oral Tab CR [code = Exter nal 633519] Medication 2022-04-20 HYDROcodone-Acetaminop Kelse y Seybold - 00:00:00 hen 10-325 MG oral External Tablet [code = 893592] Medication 2022-04-20 Morphine Sulfate ER 15 Kelse y ybold - 00:00:00 MG oral Tab CR [code = Exter nal 000505] Encounters Start End Encounter Admission Attending Care Care Encounter Source Date/Time Date/Time Type Type Clinicians Facility Department ID 2022-06-15 2022-06-15 Outpatient CHEYENNE BEDOYA [id number] [place] 10:30:00 10:30:00 AHMED Seybol d 2022-04-08 2022-04-08 Outpatient CHEYENNE CROOKS [id number] [place] 00:00:00 00:00:00 GWENDOLYN Seybol d 2022-04-06 2022-04-06 Outpatient TETE [facility] [id number] [facility] 13:51:50 15:06:32 HANK zaragoza of Medicin e 2022-04-01 2022-04-01 Outpatient CHEYENNE CROOKS [id number] [place] 00:00:00 00:00:00 GWENDOLYN Seybol d 2022-03-31 2022-03-31 Outpatient LAB90 CHEYENNE DIAZ [id number] [place] 09:05:00 09:05:00 Seybol d 2022-03-30 2022-03-30 Outpatient CHEYENNE BEDOYA [id number] [place] 00:00:00 00:00:00 AHMED Seybol d 2022-03-26 2022-03-26 Outpatient TETE [facility] [id number] [facility] 10:23:10 12:19:21 HANK Chacko ge of Medicin e 2022-03-24 2022-03-24 Outpatient CHEYENNE CROOKS [id number] [place] 00:00:00 00:00:00 GWENDOLYN Seybol d 2022-03-23 2022-03-23 Outpatient LAB90 CHEYENNE DIAZ [id number] [place] 08:05:00 08:05:00 Seybol d 2022-03-19 2022-03-[address] [facility] [id number] [facility] 11:19:39 12:17:35 HANK Colle ge of Medicin e 2022-03-18 2022-03-18 Outpatient ELKE [place]NE DIAZ [id number] [place] 13:45:00 13:45:00 AHMED Seybol d 2022-03-16 2022-03-16 Outpatient ROBERTH, [facility] [id number] [facility] 08:50:28 14:55:16 HANK Colle ge of Medicin e 2022-03-13 2022-03-13 Outpatient LANA, [facility] [id number] [facility] 16:18:33 17:18:33 KEITH Colleg e of Medicin e 2022-03-13 2022-03-13 Outpatient THIAGOSoha CHEYENNE DIAZ [id number] [place] 00:00:00 00:00:00 CAROLINE Seybol d 2022-03-13 2022-03-13 Outpatient VYBRITTANY [place] DIAZ [id number] [place] 00:00:00 00:00:00 GWENDOLYN Seybol d 2022-03-12 2022-03-12 Outpatient THIAGOSoha CHEY[place]NE DIAZ [id number] [place] 00:00:00 00:00:00 CAROLINE Seybol d 2022-03-09 2022-03-09 Outpatient [facility], [facility] [id number] [facility] 13:03:13 14:18:25 HANK Colle ge of Medicin e 2022-03-09 2022-03-09 Outpatient LAB90 CHEYENNE DIAZ [id number] [place] 08:50:00 08:50:00 Seybol d 2022-03-09 2022-03-09 Outpatient ELKE [place] DIAZ [id number] [place] 00:00:00 00:00:00 AHMED Seybol d 2022-03-06 2022-03-06 Outpatient LANA, [facility] [id number] [facility] 13:49:17 14:59:01 KEITH Guillen e of Medicin e 2022-03-06 2022-03-06 Outpatient LEONARDCHEYENNE CHEY[place]NE [id number] [place] 00:00:00 00:00:00 CAROLINE almaraz 2022-03-05 2022-03-05 Outpatient ROBERTH TETE [facility] [id number] [facility] 09:20:45 13:21:47 HANK zaragoza of Medicin e 2022-03-04 2022-03-04 [facility] [id number] 11:32:00 17:20:00 Encounter [facility] 2022-03-04 2022-03-04 [facility]patient [facility] [id number] [facility] 11:32:00 17:20:00 GLASSPORT 2022-03-04 2022-03-04 [facility] [id number] 11:32:00 17:20:00 Encounter [facility] 2022-03-04 2022-03-04 [facility], 1.2.840.1 [id number] [facility]i 17:00:00 17:05:00 Hank 68582.1.1 879 [facility] 3.430.2.7 Hospit a .3.740330 l .8 2022-03-04 2022-03-04 Anesthesia [facility] [id number] [facility] 13:41:00 15:43:00 Event Zoya Lux [facility] 2022-03-04 2022-03-04 Anesthesia Francis-Douglas Yas [facility] [id number] [facility] 13:41:00 15:43:00 Event Jose J Zoya [facility] 2022-03-04 2022-03-04 [facility] [id number] 12:25:00 13:45:00 [facility] 2022-03-04 2022-03-04 [facility] [id number] 12:25:00 13:45:00 [facility] 2022-03-04 2022-03-04 Outpatient CHEYENNE DIAZ [id number] [place] 00:00:00 00:00:00 Seybol d 2022-03-04 2022-03-04 Outpatient CHEYENNE DIAZ [id number] [place] 00:00:00 00:00:00 Seybol d 2022-03-04 2022-03-04 Out[facility] [id number] [place] 00:00:00 00:00:[address]ANK [address] 2022-03-04 2022-03-04 Travel [facility] [id number] [facility] 00:00[facility]00 00:00:00 [facility] 2022-03-04 2022-03-04 Travel [facility] [id number] [facility] 00:00:00 00:00:00 [facility] 2022-03-03 2022-03-[address] [facility] [id number] [facility] 14:10:05 17:20:16 HANK zaragoza of Medicin e 2022-03-03 2022-03-03 Outpatient CHEYENNE JOHNSON [id number] [place] 12:45:00 12:45:00 RUPINDER Seybol d 2022-03-03 2022-03-03 Outpatient CHEYENNE ALCALA [id number] [place] 08:40:00 08:40:00 EMIGDIO Seybol d 2022-03-03 2022-03-03 Outpatient CHEYENNE VALLE [id number] [place] 00:00:00 00:00:00 CAROLINE Seybol d 2022-03-03 2022-03-03 Outpatient CHEYENNE DIAZ [id number] [place] 00:00:00 00:00:00 Seybol d 2022-03-03 2022-03-03 Outpatient CHEYENNE DIAZ [id number] [place] 00:00:00 00:00:00 Seybol d 2022-03-03 2022-03-03 Outpatient CHEYENNE DIAZ [id number] [place] 00:00:00 00:00:00 Seybol d 2022-03-02 2022-03-02 Outpatient HUNDL, CHEYENNE CHEYENNE [id number] [place] 00:00:00 00:00:00 CAROLINE Seybol d 2022-02-24 2022-02-24 Outpatient LAB90 CHEYENNE CHEYENNE [id number] [place] 07:55:00 07:55:00 Seybol d 2022-02-24 2022-02-24 Outpatient HUNDL, CHEYENNE CHEYENNE [id number] [place] 00:00:00 00:00:00 CAROLINE Seybol d 2022-02-24 2022-02-24 Outpatient HUNDL, CHEYENNE DIAZ [id number] [place] 00:00:00 00:00:00 CAROLINE Seybol d 2022-02-20 2022-02-20 Outpatient HUNDL, CHEYENNE DIAZ [id number] [place] 14:00:00 14:00:00 CAROLINE Seybol d 2022-02-19 2022-02-19 Outpatient HUNDL, CHEYENNE DIAZ [id number] [place] 00:00:00 00:00:00 CAROLINE Seybol d 2022-02-18 2022-02-18 Outpatient LAB39 CHEYENNE DIAZ [id number] [place] 10:25:00 10:25:00 Seybol d 2022-02-18 2022-02-18 Outpatient ELKE [place] DIAZ [id number] [place] 09:00:00 09:00:00 AHMED Seybol d 2022-02-18 2022-02-18 Outpatient ELKE [place] DIAZ [id number] [place] 00:00:00 00:00:00 AHMED Seybol d 2022-02-17 2022-02-17 Outpatient [facility], SERRANO CHEY[place]NE DIAZ [id number] [place] 08:30:00 08:30:00 Seybol d 2022-02-17 2022-02-17 Outpatient LAB90 CHEYENNE DIAZ [id number] [place] 08:20:00 08:20:00 Seybol d 2022-02-12 2022-02-12 Outpatient HUNDL, CHEYENNE DIAZ [id number] [place] 00:00:00 00:00:00 CAROLINE Seybol d 2022-02-11 2022-02-11 Outpatient LEONARD CHEYENNE CHEYENNE [id number] [place] 00:00:00 00:00:00 CAROLINE Seybol d 2022-02-11 2022-02-11 Outpatient CHEYENNE VALLE CHEYENNE [id number] [place] 00:00:00 00:00:00 CAROLINE Seybol d 2022-02-11 2022-02-11 Outpatient CHEYENNE VALLE CHEYENNE [id number] [place] 00:00:00 00:00:00 CAROLINE Seybol d 2022-02-10 2022-02-10 Outpatient SURENDRA SANDOVAL [place] DIAZ [id number] [place] 08:00:00 08:00:00 Seybol d 2022-02-10 2022-02-10 Outpatient LAB90 CHEYENNE DIAZ [id number] [place] 07:55:00 07:55:00 Seybol d 2022-02-10 2022-02-10 Outpatient LEONARD [place] DIAZ [id number] [place] 00:00:00 00:00:00 CAROLINE Seybol d 2022-02-06 2022-02-06 Outpatient LAB90 CHEYENNE DIAZ [id number] [place] 08:05:00 08:05:00 Seybol d 2022-02-03 2022-02-03 Outpatient SURENDRA SANDOVAL [place] DIAZ [id number] [place] 08:30:00 08:30:00 Seybol d 2022-02-03 2022-02-03 Outpatient LAB90 CHEYENNE DIAZ [id number] [place] 08:00:00 08:00:00 Seybol d 2022-02-03 2022-02-03 Outpatient PREZAS [place]NE DIAZ [id number] [place] 00:00:00 00:00:00 GWENDOLYN Seybol d 2022-02-03 2022-02-03 Outpatient LEONARD [place] DIAZ [id number] [place] 00:00:00 00:00:00 CAROLINE Seybol d 2022-01-30 2022-01-30 Outpatient LAB90 CHEY[place]NE DIAZ [id number] [place] 08:10:00 08:10:00 Seybol d 2022-01-28 2022-01-28 Orders Doctor MAYA 1.2.840.114 [id number] Univers 00:00:00 00:00:00 Only Unassigned, BA 350.1.13.10 ity [facility] 4.2.7.2.686 Sukhjinder as [id number] [address] 2022-01-27 2022-01-27 Outpatient CHEYENNE CROOKS [id number] [place] 00:00:00 00:00:00 GWENDOLYN Seybol d 2022-01-26 2022-01-26 Outpatient JAIME, SERRANO [place] DIAZ [id number] [place] 08:45:00 08:45:00 Seybol d 2022-01-26 2022-01-26 Outpatient LAB90 CHEY[place]NE DIAZ [id number] [place] 08:00:00 08:00:00 Seybol d 2022-01-26 2022-01-26 Outpatient CHEYENNE VALLE [id number] [place] 00:00:00 00:00:00 CAROLINE Seybol d 2022-01-23 2022-01-23 Outpatient CHEYENNE VALLE [id number] [place] 00:00:00 00:00:00 CAROLINE Seybol d 2022-01-21 2022-01-21 Outpatient CHEYENNE CROOKS [id number] [place] 00:00:00 00:00:00 GWENDOLYN Seybol d 2022-01-20 2022-01-20 Outpatient Tawana JACOB [facility] [id number] Univers 13:15:00 13:15:00 ALMAS margaret [facility] 2022-01-20 2022-01-20 Outpatient LAB90 CHEYENNE DIAZ [id number] [place] 07:50:00 07:50:00 Seybol d 2022-01-19 2022-01-19 Outpatient CHEYENNE VALLE [id number] [place] 00:00:00 00:00:00 CAROLINE Seybol d 2022-01-17 2022-01-17 Outpatient LAB47 CHEYENNE DIAZ [id number] [place] 08:50:00 08:50:00 Seybol d 2022-01-15 2022-01-15 Outpatient CHEYENNE VALLE [id number] [place] 00:00:00 00:00:00 CAROLINE Seybol d 2022-01-15 2022-01-15 Outpatient LEONARD [place] DIAZ [id number] [place] 00:00:00 00:00:00 CAROLINE Seybol d 2022-01-14 2022-01-14 Outpatient LAB90 CHEYENNE DIAZ [id number] [place] 10:00:00 10:00:00 Seybol d 2022-01-14 2022-01-14 Outpatient SURENDRA SANDOVAL [place] DIAZ [id number] [place] 09:30:00 09:30:00 Seybol d 2022-01-14 2022-01-14 Outpatient DIEGO LORENZO [place] DIAZ [id number] [place] 00:00:00 00:00:00 Seybol d 2022-01-13 2022-01-13 Outpatient LAB90 CHEYENNE DIAZ [id number] [place] 14:45:00 14:45:00 Seybol d 2022-01-13 2022-01-13 Outpatient LEONARD [place] DIAZ [id number] [place] 14:00:00 14:00:00 CAROLINE Seybol d 2022-01-13 2022-01-13 Outpatient THIAGOSoha CHEYENNE DIAZ [id number] [place] 13:30:00 13:30:00 CAROLINE Seybol d 2022-01-13 2022-01-13 Outpatient LEONARD [place] DIAZ [id number] [place] 00:00:00 00:00:00 CAROLINE Seybol d 2022-01-13 2022-01-13 Grisel Jacob [facility] 1.2.840.114 [id number] Univers 00:00:00 00:00:00 [facility] 350.1.13.10 it y of EYE 4.2.7.2.686 [facility] [phone] [place] [address] [place] 2022-01-12 2022-01-12 Outpatient CHEYENNE VALLE [id number] [place] 00:00:00 00:00:00 CAROLINE Seybol d 2022-01-11 2022-01-11 Outpatient CHEYENNE VALLE [id number] [place] 00:00:00 00:00:00 CAROLINE Seybol d 2022-01-07 2022-01-07 Outpatient ELKE [place] DIAZ [id number] [place] 10:00:00 10:00:00 AHMED Seybol d 2022-01-05 2022-01-05 Outpatient CHEYENNE VALLE [id number] [place] 10:30:00 10:30:00 CAROLINE Seybol d 2021-12-24 2021-12-24 Outpatient R FLAQUITA [facility] [id number] Univers 10:00:00 10:00:00 ED margaret [facility] 2021-12-03 2021-12-03 Outpatient CHEYENNE VALLE [id number] [place] 09:00:00 09:00:00 CAROLINE Seybol awa 2021-12-02 2021-12-02 [facility] [id number] Univers 09:00:00 09:47:08 [facility] 2021-12-02 2021-12-02 Office [facility] 1.2.840.114 [id number] Univers 09:00:00 09:47:08 Visit [facility] 350.1.13.10 it y of EYE 4.2.7.2.686 [facility] [id number] [facility] [address] 2021-12-02 2021-12-02 Outpatient CHEYENNE VALLE [id number] [place] 00:00:00 00:00:00 CAROLINE Seybol d 2021-12-02 2021-12-02 Orders Doctor MAYA 1.2.840.114 [id number] Univers 00:00:00 00:00:00 Only Unassigned, BA 350.1.13.10 [facility] 4.2.7.2.686 Sukhjinder [id number] [facility] [address] 2021-12-01 2021-12-01 Outpatient LAB90 CHEYENNE DIAZ [id number] [place] 09:45:00 09:45:00 Seybol d 2021-12-01 2021-12-01 Outpatient CHEYENNE VALLE [id number] [place] 09:00:00 09:00:00 CAROLINE Grimesol awa 2021-11-25 2021-11-25 Outpatient CHEYENNE VALLE [id number] [place] 09:00:00 09:00:00 CAROLINE Grimesol awa 2021-11-13 2021-11-13 [facility] 1.2.840.114 [id number] Univers 00:00:00 00:00:00 [facility] 350.1.13.10 it [place] [id number] [address] 2021-10-21 2021-10-21 [facility] 1.2.840.114 [id number] Univers 00:00:00 00:00:00 [facility] 350.1.13.10 it y of EYE 4.2.7.2.686 [facility] [id number] [address] 2021-10-15 2021-10-15 Outpatient AOSM AOSM [id number] [place] 00:00:00 00:00:00 [id number] [facility] 2021-10-08 2021-10-08 [facility] [id number] Univers 09:30:00 10:36:53 [facility] 2021-10-08 2021-10-08 [facility] 1.2.840.114 [id number] Univers 09:30:00 10:36:53 Visit [facility] 350.1.13.10 it y of EYE 4.2.7.2.686 [facility] [place] [id number] [address] 2021-10-08 2021-10-08 Outpatient Tawana JACOB [facility] [id number] Univers 09:30:00 10:36:53 HUMAIR ity [facility] 2021-10-08 2021-10-08 Outpatient Tawana JACOB [facility] [id number] Univers 09:30:00 09:30:00 HUMAIR ity [facility] 2021-10-08 2021-10-08 Outpatient CHEYENNE BEDOYA [id number] [place] 08:00:00 08:00:00 MIRA Seybol d 2021-10-08 2021-10-08 Orders Doctor MAYA 1.2.840.114 [id number] Univers 00:00:00 00:00:00 Only Unassigned, BA 350.1.13.10 ity of [place] [facility] 4.2.7.2.686 Sukhjinder as [phone] [place] [address] [place] 2021-10-03 2021-10-03 Outpatient LAB90 CHEYENNE DIAZ [id number] [place] 10:35:00 10:35:00 Seybol d 2021-09-30 2021-09-30 Refill Nidia NVPALLAVI 1.2.840.114 [id number] Univers 00:00:00 00:00:00 [facility] 350.1.13.10 [place] [id number] [place] [address] [place] 2021-09-25 2021-09-25 Outpatient LAB90 CHEYENNE DIAZ [id number] [place] 09:50:00 09:50:00 Seybol d 2021-09-25 2021-09-25 Office Surendra Gusman 1.2.840.114 [id number] [place] 09:00:00 09:15:00 Visit Evie He 350.1.13.13 Se kristen [place] 1.2.7.2.686 [id number] 2021-09-25 2021-09-25 Outpatient CHEYENNE GUSMAN [id number] [place] 00:00:00 00:00:00 EVIE Grimesol awa 2021-09-24 2021-09-24 Outpatient R ROBSON JACOB NVPALLAVI [id number] Univers 13:30:00 14:26:29 HUMAIR ity of [facility] 2021-09-24 2021-09-24 Office ROBSON Jacob 1.2.840.114 [id number] Univers 13:30:00 14:26:29 Visit [facility] 350.1.13.10 it y of EYE 4.2.7.2.686 [facility] [place] [id number] [facility] [address] 2021-09-22 2021-09-22 Outpatient CHEYENNE VALLE CHEYENNE [id number] [place] 10:00:00 10:00:00 CAROLINE Grimesol awa 2021-09-22 2021-09-22 Orders Doctor TREJO 1.2.840.114 [id number] Univers 00:00:00 00:00:00 Only Unassigned, BA 350.1.13.10 ity of [place] [facility] 4.2.7.2.686 [facility] [id number] [facility] [address] 2021-09-17 2021-09-17 Outpatient LAB90 CHEYENNE DIAZ [id number] [place] 09:45:00 09:45:00 [place] awa 2021-09-17 2021-09-17 Office Surendra Gusman 1.2.840.114 [id number] [place] 09:00:00 09:30:00 Visit Evie He 350.1.13.13 Se miltonrita Fei 1.2.7.2.686 [id number] 2021-09-12 2021-09-[address] [facility] [id number] 00:00:00 00:00:00 [facility] 2021-09-12 2021-09-12 [facility] [id number] 00:00:00 00:00:00 [facility] 2021-09-11 2021-09-11 Outpatient THIAGOSoha CHEYENNE DIAZ [id number] [place] 00:00:00 00:00:00 CAROLINE almaraz 2021-09-05 2021-09-05 Outpatient Tawana JACOB [facility] [id number] Univers 13:30:00 14:26:19 HUMAIR ity of [facility] 2021-09-05 2021-09-05 Office Nidia [facility] 1.2.840.114 [id number] Univers 13:30:00 14:26:19 Visit [facility] 350.1.13.10 it y of EYE 4.2.7.2.686 [facility] [id number] [facility] [address] 2021-09-05 2021-09-05 [facility] [id number] Univers 13:30:00 13:30:00 HUMAIR ity [facility] 2021-08-27 2021-08-27 Patient Nidia NVPALLAVI 1.2.840.114 [id number] Univers 00:00:00 00:00:00 Secure Msg [employer] [facility] 350.1.13.10 ity of EYE 4.2.7.2.686 [facility] [id number] [address] 2021-08-27 2021-08-27 Orders Doctor MAYA 1.2.840.114 [id number] Univers 00:00:00 00:00:00 Only Unassigned, BA 350.1.13.10 ity [place] [facility] 4.2.7.2.686 Sukhjinder as [id number] [address] 2021-08-22 2021-08-22 Outpatient R NIDIA [facility] [id number] Univers 14:00:00 14:54:52 HUMAIR ity [facility] 2021-08-22 2021-08-22 [facility] 1.2.840.114 [id number] Univers 14:00:00 14:54:52 Visit [facility] 350.1.13.10 it y of EYE 4.2.7.2.686 [facility] [place] [id number] [address] 2021-08-22 2021-08-22 Outpatient R NIDIA [facility] [id number] Univers 14:00:00 14:00:00 HUMAIR ity [facility] 2021-08-12 2021-08-12 Outpatient CHEYENNE VALLE [id number] [place] 00:00:00 00:00:00 CAROLINE Grimesol d 2021-08-08 2021-08-08 Outpatient R NIDIA [facility] [id number] Univers 15:30:00 16:30:03 HUMAIR ity [facility] 2021-08-08 2021-08-08 Office Nidia [facility] 1.2.840.114 [id number] Univers 15:30:00 16:30:03 Visit [facility] 350.1.13.10 [place] [id number] [address] 2021-08-08 2021-08-08 Outpatient Tawana JACOB [facility] [id number] Univers 15:30:00 16:30:03 HUMAIR ity [facility] 2021-08-08 2021-08-08 Outpatient Tawana JACOB [facility] [id number] Univers 15:30:00 16:30:03 HUMAIR ity [facility] 2021-07-30 2021-07-30 Outpatient R NIDIA [facility] [id number] Univers 10:30:00 10:30:00 HUMAIR ity [facility] 2021-07-22 2021-07-22 Outpatient CHEYENNE VALLE [id number] [place] 13:30:00 13:30:00 CAROLINE almaraz 2021-07-15 2021-07-15 Outpatient Tawana JACOB, [facility] [id number] Univers 13:00:00 13:57:05 [facility] 2021-07-15 2021-07-15 Outpatient Tawana JACOB, [facility] [id number] Univers 13:00:00 13:57:05 [facility] 2021-07-15 2021-07-15 [facility] 1.2.840.114 [id number] Univers 13:00:00 13:57:05 Visit [facility] 350.1.13.10 it y of EYE 4.2.7.2.686 [facility] [id number] [address] 2021-07-15 2021-07-15 Outpatient CHEYENNE VALLE [id number] [place] 00:00:00 00:00:00 CAROLINE almaraz 2021-07-14 2021-07-14 [facility] [id number] Univers 10:15:00 10:15:00 HUMAIR ity [facility] 2021-07-09 2021-07-09 Outpatient Tawana CHAUDHRY [facility] [id number] Univers 15:15:00 16:31:00 ANDRÉS ity [facility] 2021-07-09 2021-07-09 [facility] 1.2.840.114 [id number] Univers 15:15:00 16:31:00 Visit Andrés WEAVER 350.1.13.10 ity of [place] 4.2.7.2.686 [facility] [id number] [facility] AND [address] [facility] 2021-07-08 2021-07-08 Outpatient CHEYENNE VALLE [id number] [place] 00:00:00 00:00:00 CAROLINE Grimesol d 2021-07-08 2021-07-08 Transition FELIPA [facility] 1.2.840.114 [id number] Univers 00:00:00 00:00:00 of Care Mickie MANCUSO 350.1.13.10 i ty of [place] 4.2.7.2.686 [facility] [id number] [facility] [address] 2021-07-01 2021-07-05 Inpatient X [facility] [id number] Univers 10:06:00 17:49:00 [facility] 2021-07-01 2021-07-05 Inpatient X [facility] GLADWIN TIFFANIE [id number] Univers 10:06:00 17:49:00 [facility] 2021-07-01 2021-07-05 [facility] Jelly Alcantara 1.2.840.11 4 [id number] Univers 10:06:00 17:49:00 Encounter Herrera Yoo 350.1.1 3.10 ity of [facility] 4.2.7.2.686 [place] [phone] [facility] [address] 2021-07-02 2021-07-02 Outpatient DIANNA JOHNSON [id number] [place] 10:30:00 10:30:00 Corneliool awa 2021-07-02 2021-07-02 Outpatient Tawana JACOB [facility] [id number] Univers 09:15:00 09:15:00 ALMAS ity [facility] 2021-07-01 2021-07-01 Outpatient Tawana JACOB [facility] [id number] Univers 09:00:00 09:30:19 HUMAIR ity of [facility] 2021-07-01 2021-07-01 Office Nidia [facility] 1.2.445.084 [id number] Univers 09:00:00 09:30:19 Visit [employer] Y 350.1.13.10 it y of NATIONAL 4.2.7.2.686 Sukhjinder as BANK [phone] [facility] [address]G. [address] [place] 2021-07-01 2021-07-01 Orders Doctor MAYA 1.2.840.114 [id number] Univers 00:00:00 00:00:00 Only Unassigned, BA 350.1.13.10 ity of [place] [facility] 4.2.7.2.686 Sukhjinder as [phone] [facility] [address] 2021-06-30 2021-06-30 Telephone Jacob NVPALLAVI 1.2.363.200 [id number] Univers 00:00:00 00:00:00 [employer] HEALTH 350.1.13.10 it y of E[place] 4.2.7.2.686 [place] [facility] [id number] [facility] [address] [place] 2021-06-27 2021-06-27 Outpatient R NIDIA [facility] [id number] Univers 14:00:00 14:00:00 HUMAIR ity of [facility] 2021-06-26 2021-06-26 Outpatient CHEYENNE DIAZ [id number] [place] 07:35:00 07:35:00 Seybol d 2021-06-26 2021-06-26 Outpatient CHEYENNE DIAZ [id number] [place] 07:05:00 07:05:00 Seybol d 2021-06-26 2021-06-26 Outpatient CHEYENNE BEDOYA [id number] [place] 07:00:00 07:00:00 AHMED Seybol d 2021-06-26 2021-06-26 Outpatient CHEYENNE CACERES [id number] [place] 00:00:00 00:00:00 SHAHEEN vicente 2021-06-25 2021-06-25 Samira Parker 1.2.840.1 [id number] Methodi 21:20:00 21:25:[address] [facility] 3.430.2.7 Hospit a .3.785861 l .8 2021-06-25 2021-06-25 Lab Rupinder Parker.2.840.1 [id number] Methodi 21:20:00 21:25:[address] [facility] 3.430.2.7 Hospit a .3.897700 l .8 2021-06-25 2021-06-25 Office KORIN NATHAN 1.2.840.114 [id number] [place] 11:20:00 11:20:[address] [facility] 350.1.13.13 [facility] 1.2.7.2.686 [id number] 2021-06-25 2021-06-25 Outpatient CHEYENNE MONTAÑO [id number] [place] 00:00:00 00:00:00 ADRYENE Seybol d 2021-06-25 2021-06-25 Travel 1.2.840.1 1.2.285.533 [id number] Methodi 00:00:00 00:00:[address] 3.430.2.7 0.2.7.3.698 Ho spita .3.726585 084.8 l .8 2021-06-25 2021-06-25 Travel 1.2.840.1 1.2.691.476 [id number] Methodi 00:00:00 00:00:[address] 3.430.2.7 0.2.7.3.698 Ho spita .3.129815 084.8 l .8 2021-06-23 2021-06-23 Outpatient CHEYENNE BEDOYA [id number] [place] 00:00:00 00:00:00 AHMED Seybol d 2021-06-20 2021-06-20 Telemedici Dianna Johnson 1.2.840.11 4 [id number] [place] 10:15:00 10:26:50 ne Ezio Almaraz 350.1.13.13 Se kristen 1.2.7.2.686 [id number] 2021-06-16 2021-06-17 Outpatient X JOSE [facility] [id number] Univers 06:11:00 14:35:00 FIDEL lundy [facility] 2021-06-16 2021-06-17 Emergency Guzman Oliva [facility] 1.2.840. 114 [id number] Univers 06:11:00 14:35:00 Jose [facility]ane [facility]13.[facility] [id number] [address] 2021-06-16 2021-06-16 Outpatient DIANNA JOHNSON [id number] [place] 15:15:00 15:15:00 Seybol d 2021-06-16 2021-06-16 Outpatient CHEYENNE VALLE [id number] [place] 00:00:00 00:00:00 CAROLINE Seybol d 2021-06-14 2021-06-14 Outpatient CHEYENNE VALLE [id number] [place] 00:00:00 00:00:00 CAROLINE Seybol d 2021-06-07 2021-06-07 Outpatient CHEYENNE NATHAN [id number] [place] 00:00:00 00:00:00 RYDER Seybol d 2021-06-07 2021-06-07 Outpatient DIANNA JOHNSON [id number] [place] 00:00:00 00:00:00 Seybol d 2021-06-05 2021-06-05 Outpatient CHEYENNE BEDOYA [id number] [place] 09:02:00 09:02:00 AHMED Seybol d 2021-06-05 2021-06-05 Outpatient CHEYENNE DIAZ [id number] [place] 07:15:00 07:15:00 Seybol d 2021-06-05 2021-06-05 Outpatient CHEYENNE CACERES [id number] [place] 00:00:00 00:00:00 SHAHEEN Seybo ld 2021-06-04 2021-06-04 Outpatient ELKE [place]NE DIAZ [id number] [place] 00:00:00 00:00:00 AHMED Seybol d 2021-06-04 2021-06-04 Outpatient MONTAÑOCHEYENNE [id number] [place] 00:00:00 00:00:00 ADRYENE Seybol d 2021-06-03 2021-06-03 Outpatient MARY ESPANA [id number] [place] 10:30:00 10:30:00 Seybol d 2021-05-23 2021-05-23 Outpatient CHEYENNE DIAZ [id number] [place] 14:00:00 14:00:00 Seybol d 2021-05-23 2021-05-23 Outpatient [facility] CHE[place]NE DIAZ [id number] [place] 12:05:00 12:05:00 Seybol d 2021-05-23 2021-05-23 Office Diego Lorenzo 1.2.840.114 1 [id number] [place] 11:20:00 11:40:00 Visit 350.1.13.13 Se ybold 1.2.7.2.686 [id number] 2021-05-23 2021-05-23 Outpatient CHEYENNE NATHAN [id number] [place] 00:00:00 00:00:00 RYDER Seybol d 2021-05-21 2021-05-21 Outpatient CHEYENNE LEO [id number] [place] 00:00:00 00:00:00 AMARJIT Seybol d 2021-05-19 2021-05-19 Outpatient CHEY[place]NE LEO [id number] [place] 00:00:00 00:00:00 AMARJIT Seybol d 2021-05-16 2021-05-16 Outpatient CHEY[place]NE DIAZ [id number] [place] 11:45:00 11:45:00 Seybol d 2021-05-16 2021-05-16 Outpatient CHEYENNE CARRILLO [id number] [place] 11:45:00 11:45:00 NEY Seybol d 2021-05-16 2021-05-16 Office KORIN Nathan 1.2.840.114 [id number] [place] 11:00:00 11:20:00 Visit [facility] 350.1.13.13 Se ybold 1.2.7.2.686 [id number] 2021-05-16 2021-05-16 Outpatient CHEYENNE DIAZ [id number] [place] 11:05:00 11:05:00 Seybol d 2021-05-16 2021-05-16 Outpatient MARY ESPANA [id number] [place] 09:10:00 09:10:00 Seybol d 2021-05-12 2021-05-12 Outpatient JOHNSONDIANNA [id number] [place] 00:00:00 00:00:00 Seybol d 2021-05-11 2021-05-11 Outpatient DIANNA JOHNSON [id number] [place] 00:00:00 00:00:00 Seybol d 2021-05-08 2021-05-08 Outpatient CHEYENNE LEO [id number] [place] 09:30:00 09:30:00 AMARJIT Seybol d 2021-05-06 2021-05-06 Outpatient LAB90 CHE[place]NE DIAZ [id number] [place] 10:55:00 10:55:00 Seybol d 2021-05-06 2021-05-06 Office Surendra Valle 1.2.840.114 [id number] [place] 10:00:00 10:30:00 Visit Caroline Neri 350.1.13.13 Se ybold 1.2.7.2.686 [id number] 2021-05-05 2021-05-05 Outpatient CHEYENNE BEDOYA [id number] [place] 00:00:00 00:00:00 AHMED Seybol d 2021-05-05 2021-05-05 Outpatient CHEYENNE BEDOYA [id number] [place] 00:00:00 00:00:00 AHMED Seybol d 2021-05-05 2021-05-05 Outpatient MAIRA DIAZ [id number] [place] 00:00:00 00:00:00 MD RAJAN Seybol d 2021-05-05 2021-05-05 Outpatient DIANNA JOHNSON [place] DIAZ [id number] [place] 00:00:00 00:00:00 Seybol d 2021-05-02 2021-05-02 Office Dianna Johnson 1.2.840.114 [id number] [place] 10:15:00 10:30:00 Visit Ezio Almaraz 350.1.13.13 Se ybold 1.2.7.2.686 [id number] 2021-05-02 2021-05-02 Outpatient CHEYENNE WASHINGTON [id number] [place] 09:00:00 09:00:00 CARMENCITA Seybol d 2021-04-30 2021-04-30 Outpatient LAB45 CHEY[place]NE DIAZ [id number] [place] 10:25:00 10:25:00 Seybol d 2021-04-30 2021-04-30 Office PAWEL Leo 1.2.011.185 [id number] [place] 08:45:00 09:15:00 Visit Amarjit CLARKE 350.1.13.13 Seybold DIAGNOSTI 1.2.7.2.686 [facility] [id number] 2021-04-30 2021-04-30 Outpatient CHEYENNE VALLE [id number] [place] 08:30:00 08:30:00 CAROLINE Seybol d 2021-04-25 2021-04-25 Inpatient LOLY MabryJack dejesus [facility] RADI [id number] [facility] 10:00:00 10:00:00 57 Kym smith [facility] 2021-04-23 2021-04-23 Outpatient CHEYENNE GUEVARA [id number] [place] 09:00:00 09:00:00 JOSE Seybol d 2021-04-22 2021-04-22 Outpatient CHEYENNE DIAZ [id number] [place] 07:00:00 07:00:00 Seybol d 2021-04-22 2021-04-22 Outpatient CHEYENNE GUSMAN [id number] [place] 00:00:00 00:00:00 EVIE Seybol d 2021-04-22 2021-04-22 Outpatient CHEYENNE GUSMAN [id number] [place] 00:00:00 00:00:00 EVIE Seybol d 2021-04-18 2021-04-18 Outpatient CHEYENNE DIAZ [id number] [place] 14:00:00 14:00:00 Seybol d 2021-04-18 2021-04-18 Outpatient CHEYENNE VALLE [id number] [place] 00:00:00 00:00:00 CAROLINE Seybol d 2021-04-17 2021-04-17 Outpatient MontañoJack dejesus [facility] [id number] [facility] 14:14:00 14:14:00 21 [facility] 2021-04-15 2021-04-15 Outpatient Sabra [facility] BP00 [id number] [facility] 15:51:00 15:51:00 75 [facility] 2021-04-14 2021-04-14 Outpatient CHEY[place]NE VALLE [id number] [place] 00:00:00 00:00:00 CAROLINE Seybol d 2021-04-11 2021-04-11 Outpatient LAB90 CHEYENNE DIAZ [id number] [place] 10:20:00 10:20:00 Seybol d 2021-04-10 2021-04-10 Outpatient CHEYENNE VALLE [id number] [place] 00:00:00 00:00:00 CAROLINE Seybol d 2021-04-07 2021-04-07 Outpatient CHEYENNE DIAZ [id number] [place] 10:05:00 10:05:00 Seybol d 2021-04-07 2021-04-07 Outpatient CHEYENNE DIAZ [id number] [place] 10:00:00 10:00:00 Seybol d 2021-04-07 2021-04-07 Outpatient CHEYENNE DIAZ [id number] [place] 09:55:00 09:55:00 Seybol d 2021-04-07 2021-04-07 Outpatient CHEYENNE DIAZ [id number] [place] 09:50:00 09:50:00 Seybol d 2021-04-07 2021-04-07 Outpatient CHEYENNE DIAZ [id number] [place] 09:05:00 09:05:00 Seybol d 2021-04-07 2021-04-07 Office DIANNA JOHNSON 1.2.840.114 [id number] [place] 09:00:00 09:00:00 Visit TRICIA Erazo 350.1.13.13 Seybold DIAGNOSTI 1.2.7.2.686 [facility] [id number] 2021-04-04 2021-04-04 Outpatient CHEYENNE VALLE [id number] [place] 00:00:00 00:00:00 CAROLINE Seybol d 2021-04-03 2021-04-03 Outpatient CHEYENNE LEO [id number] [place] 15:30:00 15:30:00 AMARJIT Seybol d 2021-04-02 2021-04-02 Outpatient LAB90 CHEY[place]NE DIAZ [id number] [place] 11:25:00 11:25:00 Seybol d 2021-04-02 2021-04-02 Office Surendra Valle 1.2.840.114 [id number] [place] 10:00:00 10:30:00 Visit Caroline He 350.1.13.13 Se ybold 1.2.7.2.686 [id number] 2021-03-24 2021-03-28 Inpatient U FÉLIX [facility] [id number] Univers 19:41:00 16:22:00 [facility] 2021-03-24 2021-03-28 [facility] Felicia Griffin 1.2.840. 114 [id number] Univers 19:41:00 16:22:00 [facility]13.[facility].7[facility] [place] [id number] [address] 2021-03-26 2021-03-26 Outpatient CHEYENNE VALLE [id number] [place] 00:00:00 00:00:00 CAROLINE Seybol d 2021-03-26 2021-03-26 Outpatient CHEYENNE VALLE [id number] [place] 00:00:00 00:00:00 CAROLINE Seybol d 2021-03-24 2021-03-24 Orders Doctor MAYA 1.2.840.114 [id number] Univers 00:00:00 00:00:00 Only Unassigned, BA 350.1.13.10 ity of [place] [facility] 4.2.7.2.686 Sukhjinder as [id number] [facility] [address] 2021-03-06 2021-03-06 Outpatient CHEYENNE VALLE [id number] [place] 00:00:00 00:00:00 CAROLINE Grimesol awa 2021-03-05 2021-03-05 Office Surendra Valle 1.2.840.114 [id number] [place] 10:30:00 11:00:00 Visit Caroline He 350.1.13.13 kristen 1.2.7.2.686 [id number] 2021-03-05 2021-03-05 Outpatient CHEYENNE VALLE [id number] [place] 00:00:00 00:00:00 CAROLINE almaraz 2021-01-16 2021-01-16 Transition FELIPA Jackson 1.2.840.114 [id number] Univers 00:00:00 00:00:00 of Care Mickie MANCUSO 350.1.13.10 i ty of [place] [id number] [facility] [address] 2021-01-12 2021-01-15 [facility] Jesenia Kim Elder [facility] 1.2.840. 114 [id number] Univers 20:00:00 13:44:00 Encounter Cici Watson 350.1.13.10 ity of [place] [id number] [facility] [address] 2021-01-12 2021-01-15 Inpatient X WALTER [facility] TIFFANIE [id number] Univers 20:00:00 13:44:00 CICI [facility] 2021-01-10 2021-01-10 Outpatient Tawana YOO [facility] [id number] Univers 14:10:00 14:10:00 HERRERA [facility] 2021-01-10 2021-01-10 Imm/Inj Nurse, Adc Pob Immunization [facility] 1.2.840.114 [id number] Univers 14:04:54 14:05:05 Visit Herrera Yoo [facility] 350.1.13 .10 ity of [place] [id number] N[place] dical NAL 421 [facility] 2020-04-27 2020-04-27 Outpatient [facility] [id number] Univers 09:45:00 09:45:00 ity [facility] 2020-04-06 2020-04-06 Outpatient R ELIDA, [facility] [id number] Univers 09:55:00 09:55:00 LOS ity [facility] 2020-04-04 2020-04-04 Letter Doctor MAYA 1.2.840.114 [id number] Univers 00:00:00 00:00:00 (Out) Unassigned, BA 350.1.13.10 ity of [place] [facility] 4.2.7.2.686 Sukhjinder as [id number] [address] 2019-07-20 2019-07-20 Telephone [facility] 1.2.840.114 [id number] Univers 00:00:00 00:00:00 [employer] 350.1.13.10 it y of Surgical 4.2.7.2.686 Sukhjinder as Specialti [id number] Nc dical es 198 [facility] 2019-07-20 2019-07-20 Telephone [facility] 1.2.840.114 [id number] 00:00:00 00:00:00 [employer] 350.1.13.10 Surgical 4.2.7.2.686 Specialti [id number] es 198 [place] 2019-07-06 2019-07-06 Telephone [facility] 1.2.840.114 [id number] Univers 00:00:00 00:00:00 [employer] 350.1.13.10 it y of Surgical 4.2.7.2.686 Sukhjinder as Specialti [id number] Nc dical es 198 [facility] 2019-07-06 2019-07-06 Telephone [facility] 1.2.840.114 [id number] 00:00:00 00:00:00 [facility]isha [facility] 350.1.13.10 Surgical 4.2.7.2.686 Specialti [id number] es [address] [place] 2019-07-04 2019-07-04 [facility] 1.2.840.114 [id number] [facility] 00:00:00 00:00:00 [facility] 350.1.13.10 it y of Surgical 4.2.7.2.686 Sukhjinder as Specialti [phone] Me dical es 198 [facility] 2019-07-04 2019-07-04 [facility] 1.2.840.114 [id number] 00:00:00 00:00:00 [facility]isha [facility] 350.1.13.10 Surgical 4.2.7.2.686 Specialti [id number] es [address] [place] 2019-06-29 2019-06-29 [facility] 1.2.775.472 [id number] [facility] 08:56:15 09:22:49 Visit Lisha [facility] 350.1.13.10 it y of Surgical 4.2.7.2.686 Sukhjinder as Specialti [id number] Me dical es 198 [facility] 2019-06-29 2019-06-29 Office [facility] 1.2.123.714 [id number] 08:56:15 09:22:49 Visit Lisha [facility] 350.1.13.10 Surgical 4.2.7.2.686 Specialti [id number] es [address] [place] [address] 2019-06-29 2019-06-29 [facility] [id number] [facility] 09:00:00 09:00:00 LISHA cinthiamargaret [facility] 2019-05-02 2019-05-03 Inpatient [facility] ANDRÉS [address] 07:39:00 19:00:00 MAYA byrnes [facility] 2019-04-11 2019-04-11 [facility] [address] 11:28:00 14:50:00 MAY[facility] 2013-12-08 2013-12-08 Outpatient TETE BRANTLEY [facility] [id number] [facility] 10:34:26 10:34:26 [facility] 2013-11-28 2013-11-28 Outpatient TETE BRANTLEY [facility] [id number] [facility] 12:10:31 12:10:31 HOMA [facility] e Results Test Description Test Time Test Comments Results Result Comments Source Eye culture, anaerobic 2022-03-11 13:34:00 Test Item Value Reference Range Interpretation Comme nts Eye culture isolate, No anaerobes isolated Specimen InformationSpecimen anaerobic (test code = after 7 days. Sour ce: Specimen Site: Left Eye - 1370) Corneal tissue PHOENIX (test code = PHOENIX) cup b [facility] [id number] 20:42:41 Test Item Value Reference Range Interpretation Comments Case number (test code = [id number]) Surgical pathology See link below for report (test code = PDF Lab Report 2255) Result status (test code This is Final Report = [id number]) for [id number] [facility] [id number] 16:08:54 Test Item Value Reference Range Interpretation Comments POC-Glucose Meter (test 126 mg/dL 70-110 H : TE STED AT code = 1538) [facility] [address] [address] 0: Retail Performance Coach/Techni alfred ID = [id number] for NEFTALI REESE Lab Interpretation (test Abnormal code = 91412-8) [facility] [id number] 16:08:54 Test Item Value Reference Range Interpretation Comments POC-Glucose Meter (test 126 mg/dL 70-110 H : TE STED AT code = 1538) [facility] [address] [address] 0: Retail Performance Coach/Techni alfred ID = [id number] for NEFTALI REESE Lab Interpretation (test Abnormal code = 67728-9) [facility]-Glucose [id number] 16:08:54 Test Item Value Reference Range Interpretation Comments POC-Glucose Meter (test 126 mg/dL 70-110 H : TE STED AT code = 1538) [facility] [address] [address] 0: Retail Performance Coach/Techni alfred ID = [id number] for CHANCO, EDWARD Lab Interpretation (test Abnormal code = 77236-0) [facility]-Glucose [id number] 16:08:54 Test Item Value Reference Range Interpretation Comments POC-Glucose Meter (test 126 mg/dL 70-110 H : TE STED AT code = 1538) [facility] [address] [address] 0: Retail Performance Coach/Techni alfred ID = [id number] for CHANCO, EDWARD Lab Interpretation (test Abnormal code = 19673-2) [facility]-Glucose [id number] 16:08:54 Test Item Value Reference Range Interpretation Comments POC-Glucose Meter (test 126 mg/dL 70-110 H : TE STED AT code = 1538) [facility] [address] [address] 0: Retail Performance Coach/Techni alfred ID = [id number] for CHANCO, EDWARD Lab Interpretation (test Abnormal code = 12277-7) [facility]-Glucose [id number] 16:08:54 Test Item Value Reference Range Interpretation Comments POC-Glucose Meter (test 126 mg/dL 70-110 H : TE STED AT code = 1538) [facility] [address] [address] 0: Retail Performance Coach/Techni alfred ID = [id number] for CHANCO, EDWARD Lab Interpretation (test Abnormal code = 03263-9) [facility]-Glucose [id number] 16:08:54 Test Item Value Reference Range Interpretation Comments POC-Glucose Meter (test 126 mg/dL 70-110 H : TE STED AT code = 1538) [facility] [address] [address] 0: Retail Performance Coach/Techni alfred ID = [id number] for CHANCO, EDWARD Lab Interpretation (test Abnormal code = 22614-9) [facility] [id number] 16:08:54 Test Item Value Reference Range Interpretation Comments POC-Glucose Meter (test 126 mg/dL 70-110 H : TE STED AT code = 1538) [facility] [address] [address] 0: Retail Performance Coach/Techni alfred ID = [id number] for NEFTALI REESE Lab Interpretation (test Abnormal code = 74715-6) [facility] [id number] 16:08:54 Test Item Value Reference Range Interpretation Comments POC-Glucose Meter (test 126 mg/dL 70-110 H : TE STED AT code = 1538) [facility] [address] [facility] [address] [place] [address] 0: Retail Performance Coach/Techni alfred ID = [id number] for NEFTALI REESE Lab Interpretation (test Abnormal code = 57422-9) [facility] [id number] 16:08:54 Test Item Value Reference Range Interpretation Comments POC-Glucose Meter (test 126 mg/dL 70-110 H : TE STED AT code = 1538) [facility] [address] [facility] [place] [address] 0: Retail Performance Coach/Techni alfred ID = [id number] for NEFTALI REESE Lab Interpretation (test Abnormal code = 15428-6) [facility]SE [id number] 16:08:54 Test Item Value Reference Range Interpretation Comments POC-GLUCOSE METER 126 mg/dL 70-110 H : TESTED A T [facility] (BEAKER) (test code = [address], DG B 1538) [place] [address] 0: Retail Performance Coach/Techni alfred ID = [id number] for NEFTALI THOMAS POCT-GLUCOSE [id number] 12:10:55 Test Item Value Reference Range Interpretation Comments POC-GLUCOSE METER 97 mg/dL 70-110 : TESTED A T [facility] (BEAKER) (test code = [address], BLDG B 1538) [place] [address] 0: Retail Performance Coach/Techni alfred ID = [id number] for Patsy Diehl Hepatitis B surface [id number] 14:53:53 Test Item Value Reference Range Interpretation Comments Hep B S Ab (test code <8.0 See_Comment [Auto mated = 45269-5) message] The system which generated this result transmit senthil reference range : <8.0 mIU/mL. e reference range was not used to interpret this result as normal/abnormal . PHOENIX (test code = PHOENIX) Retail Performance Coach ID - BS Lab Interpretation Normal (test code = 17063-9) [facility] B surface [id number] 14:53:53 Test Item Value Reference Range Interpretation Comments Hep B S Ab (test code <8.0 See_Comment [Auto mated = 14699-6) message] The system which generated this result transmit senthil reference range : <8.0 mIU/mL. Th e reference range was not used to interpret this result as normal/abnormal . PHOENIX (test code = PHOENIX) Retail Performance Coach ID - BS Lab Interpretation Normal (test code = 61802-8) [facility] B surface [id number] 14:53:53 Test Item Value Reference Range Interpretation Comments Hep B S Ab (test code <8.0 See_Comment [Auto mated = 80310-9) message] The system which generated this result transmit senthil reference range : <8.0 mIU/mL. Th e reference range was not used to interpret this result as normal/abnormal . PHOENIX (test code = PHOENIX) Retail Performance Coach ID - BS Lab Interpretation Normal (test code = 32204-9) [facility] B surface [id number] 14:53:53 Test Item Value Reference Range Interpretation Comments Hep B S Ab (test code <8.0 See_Comment [Auto mated = 18370-0) message] The system which generated this result transmit senthil reference range : <8.0 mIU/mL. Th e reference range was not used to interpret this result as normal/abnormal . PHOENIX (test code = PHOENIX) Retail Performance Coach ID - BS Lab Interpretation Normal (test code = 68769-5) [facility] B surface [id number] 14:53:53 Test Item Value Reference Range Interpretation Comments Hep B S Ab (test code <8.0 See_Comment [Auto mated = 53735-9) message] The system which generated this result transmit senthil reference range : <8.0 mIU/mL. Th e reference range was not used to interpret this result as normal/abnormal . PHOENIX (test code = PHOENIX) Retail Performance Coach ID - BS Lab Interpretation Normal (test code = 82393-4) [facility] B surface [id number] 14:53:53 Test Item Value Reference Range Interpretation Comments Hep B S Ab (test code <8.0 See_Comment [Auto mated = 99856-9) message] The system which generated this result transmit senthil reference range : <8.0 mIU/mL. Th e reference range was not used to interpret this result as normal/abnormal . PHOENIX (test code = PHOENIX) Retail Performance Coach ID - BS Lab Interpretation Normal (test code = 00447-4) [facility] surface [id number] 14:53:53 Test Item Value Reference Range Interpretation Comments Hep B S Ab (test code <8.0 See_Comment [Auto mated = 69534-2) message] The system which generated this result transmit senthil reference range : <8.0 mIU/mL. Th e reference range was not used to interpret this result as normal/abnormal . PHOENIX (test code = PHOENIX) Retail Performance Coach ID - BS Lab Interpretation Normal (test code = 03975-7) [facility] B surface [id number] 14:53:53 Test Item Value Reference Range Interpretation Comments Hep B S Ab (test code <8.0 See_Comment [Auto mated = 85762-2) message] The system which generated this result transmit senthil reference range : <8.0 mIU/mL. Th e reference range was not used to interpret this result as normal/abnormal . PHOENIX (test code = PHOENIX) Retail Performance Coach ID - BS Lab Interpretation Normal (test code = 05783-1) [facility] B surface [id number] 14:53:53 Test Item Value Reference Range Interpretation Comments Hep B S Ab (test code <8.0 See_Comment [Auto mated = 47972-1) message] The system which generated this result transmit senthil reference range : <8.0 mIU/mL. Th e reference range was not used to interpret this result as normal/abnormal . PHOENIX (test code = PHOENIX) Retail Performance Coach ID - BS Lab Interpretation Normal (test code = 91457-0) [facility] B surface nbktpqfj8437-14-56 14:53:53 Test Item Value Reference Range Interpretation Comments Hep B S Ab (test code <8.0 See_Comment [Auto mated = 68231-9) message] The system which generated this result transmit senthil reference range : <8.0 mIU/mL. Th e reference range was not used to interpret this result as normal/abnormal . PHOENIX (test code = PHOENIX) Retail Performance Coach ID - BS Lab Interpretation Normal (test code = 44892-3) [facility] egrtowut9755-20-66 14:53:53 Test Item Value Reference Range Interpretation Comments Hep B S Ab (test code <8.0 See_Comment [Auto mated = 49477-2) message] The system which generated this result transmit senthil reference range : <8.0 mIU/mL. Th e reference range was not used to interpret this result as normal/abnormal . PHOENIX (test code = PHOENIX) Retail Performance Coach ID - BS Lab Interpretation Normal (test code = 41018-2) [facility] [id number] 14:53:53 Test Item Value Reference Range Interpretation Comments Hep B S Ab (test code <8.0 See_Comment [Auto mated = 92797-1) message] The system which generated this result transmit senthil reference range : <8.0 mIU/mL. Th e reference range was not used to interpret this result as normal/abnormal . PHOENIX (test code = PHOENIX) Retail Performance Coach ID - BS Lab Interpretation Normal (test code = 77285-7) [facility] SURFACE [id number] 14:53:53 Test Item Value Reference Range Interpretation Comments HEPATITIS B SURFACE ANTIBODY < mIU/mL <8.0 (BEAKER) (test code = 647) Retail Performance Coach ID - BSHepatitis B surface [id number] 14:53:32 Test Item Value Reference Range Interpretation Comments Hepatitis B surface Nonreactive Nonreactive antigen (test code = 5195-3) PHOENIX (test code = PHOENIX) Specimen is considered negative for HBsAg. Lab Interpretation (test Normal code = 07454-6) [facility], [id number] 14:53:32 Test Item Value Reference Range Interpretation Comments Hep B Core Total Ab (test Nonreactive Nonreactive code = 58728-8) PHOENIX (test code = PHOENIX) [employer] ID - BS Lab Interpretation (test Normal code = 97751-8) [facility], [id number] 14:53:32 Test Item Value Reference Range Interpretation Comments Hep B Core Total Ab (test Nonreactive Nonreactive code = 08189-8) PHOENIX (test code = PHOENIX) Retail Performance Coach ID - BS Lab Interpretation (test Normal code = 58337-3) [facility] [id number] 14:53:32 Test Item Value Reference Range Interpretation Comments Hepatitis B surface Nonreactive Nonreactive antigen (test code = 5195-3) PHOENIX (test code = PHOENIX) Specimen is considered negative for HBsAg. Lab Interpretation (test Normal code = 36027-6) [facility], [id number] 14:53:32 Test Item Value Reference Range Interpretation Comments Hep B Core Total Ab (test Nonreactive Nonreactive code = 63706-2) PHO[place]IX (test code = PHOENIX) Retail Performance Coach ID - BS Lab Interpretation (test Normal code = 23921-8) [facility] [id number] 14:53:32 Test Item Value Reference Range Interpretation Comments Hepatitis B surface Nonreactive Nonreactive antigen (test code = 5195-3) PHOENIX (test code = PHOENIX) Specimen is considered negative for HBsAg. Lab Interpretation (test Normal code = 05025-1) [facility], [id number] 14:53:32 Test Item Value Reference Range Interpretation Comments Hep B Core Total Ab (test Nonreactive Nonreactive code = 27362-6) PHOENIX (test code = PHOENIX) Retail Performance Coach ID - BS Lab Interpretation (test Normal code = 40877-1) [facility] [id number] 14:53:32 Test Item Value Reference Range Interpretation Comments Hepatitis B surface Nonreactive Nonreactive antigen (test code = 5195-3) PHOENIX (test code = PHOENIX) Specimen is considered negative for HBsAg. Lab Interpretation (test Normal code = 64401-6) [facility], [id number] 14:53:32 Test Item Value Reference Range Interpretation Comments Hep B Core Total Ab (test Nonreactive Nonreactive code = 98816-1) PHO[place]IX (test code = PHOENIX) Retail Performance Coach ID - BS Lab Interpretation (test Normal code = 91624-7) [facility] [id number] 14:53:32 Test Item Value Reference Range Interpretation Comments Hepatitis B surface Nonreactive Nonreactive antigen (test code = 5195-3) PHOENIX (test code = PHOENIX) Specimen is considered negative for HBsAg. Lab Interpretation (test Normal code = 00321-5) [facility], [id number] 14:53:32 Test Item Value Reference Range Interpretation Comments Hep B Core Total Ab (test Nonreactive Nonreactive code = 73048-5) PHOENIX (test code = PHOENIX) Retail Performance Coach ID - BS Lab Interpretation (test Normal code = 56123-3) [facility] [id number] 14:53:32 Test Item Value Reference Range Interpretation Comments Hepatitis B surface Nonreactive Nonreactive antigen (test code = 5195-3) PHOENIX (test code = PHOENIX) Specimen is considered negative for HBsAg. Lab Interpretation (test Normal code = 29100-3) [facility] [id number] 14:53:32 Test Item Value Reference Range Interpretation Comments Hepatitis B surface Nonreactive Nonreactive antigen (test code = 5195-3) PHOENIX (test code = PHOENIX) Specimen is considered negative for HBsAg. Lab Interpretation (test Normal code = 55307-7) [facility], [id number] 14:53:32 Test Item Value Reference Range Interpretation Comments Hep B Core Total Ab (test Nonreactive Nonreactive code = 25853-0) PHO[place]IX (test code = PHOENIX) Retail Performance Coach ID - BS Lab Interpretation (test Normal code = 08586-2) [facility], [id number] 14:53:32 Test Item Value Reference Range Interpretation Comments Hep B Core Total Ab (test Nonreactive Nonreactive code = 83800-4) PHOENIX (test code = PHOENIX) Retail Performance Coach ID - BS Lab Interpretation (test Normal code = 31109-0) [facility] [id number] 14:53:32 Test Item Value Reference Range Interpretation Comments Hepatitis B surface Nonreactive Nonreactive antigen (test code = 5195-3) PHOENIX (test code = PHOENIX) Specimen is considered negative for HBsAg. Lab Interpretation (test Normal code = 66626-1) [facility], [id number] 14:53:32 Test Item Value Reference Range Interpretation Comments Hep B Core Total Ab (test Nonreactive Nonreactive code = 22080-3) PHO[place]IX (test code = PHOENIX) Retail Performance Coach ID - BS Lab Interpretation (test Normal code = 97481-5) [facility] [id number] 14:53:32 Test Item Value Reference Range Interpretation Comments Hepatitis B surface Nonreactive Nonreactive antigen (test code = 5195-3) PHOENIX (test code = PHOENIX) Specimen is considered negative for HBsAg. Lab Interpretation (test Normal code = 70932-7) [facility], [id number] 14:53:32 Test Item Value Reference Range Interpretation Comments Hep B Core Total Ab (test Nonreactive Nonreactive code = 44986-5) PHOENIX (test code = PHOENIX) Retail Performance Coach ID - BS Lab Interpretation (test Normal code = 10559-1) [facility] [id number] 14:53:32 Test Item Value Reference Range Interpretation Comments Hepatitis B surface Nonreactive Nonreactive antigen (test code = 5195-3) PHOENIX (test code = PHOENIX) Specimen is considered negative for HBsAg. Lab Interpretation (test Normal code = 05341-6) [facility], [id number] 14:53:32 Test Item Value Reference Range Interpretation Comments Hep B Core Total Ab (test Nonreactive Nonreactive code = 68181-7) PHOENIX (test code = PHOENIX) Retail Performance Coach ID - BS Lab Interpretation (test Normal code = 89656-9) [facility] [id number] 14:53:32 Test Item Value Reference Range Interpretation Comments Hepatitis B surface Nonreactive Nonreactive antigen (test code = 5195-3) PHOENIX (test code = PHOENIX) Specimen is considered negative for HBsAg. Lab Interpretation (test Normal code = 12582-1) [facility], [id number] 14:53:32 Test Item Value Reference Range Interpretation Comments Hep B Core Total Ab (test Nonreactive Nonreactive code = 63111-7) PH[place]IX (test code = PHOENIX) Retail Performance Coach ID - BS Lab Interpretation (test Normal code = 12180-5) [facility] [id number] 14:53:32 Test Item Value Reference Range Interpretation Comments Hepatitis B surface Nonreactive Nonreactive antigen (test code = 5195-3) PHOENIX (test code = PHOENIX) Specimen is considered negative for HBsAg. Lab Interpretation (test Normal code = 49200-0) [facility] [id number] 14:53:32 Test Item Value Reference Range Interpretation Comments HEPATITIS B SURFACE ANTIGEN (2) Nonreactive Nonreactive (BEAKER) (test code = 2585) Specimen is considered negative for HBsAg.HEPATITIS B CORE ANTIBODY, TOTAL 2021-09-12 14:53:32 Test Item Value Reference Range Interpretation Comments HEPATITIS B CORE TOTAL ANTIBODY Nonreactive Nonreactive (BEAKER) (test code = 497) Retail Performance Coach ID - BSFuashley [id number] 19:50:00 Test Item Value Reference Interpretation Comments Range Fungus culture Fusarium A Specimen isolate (test code species Informati onSpecimen = 580-1) [facility] PHOENIX (test code = ONLY CXFUN IS PHOENIX) REQUESTED ON REQ Lab Interpretation Abnormal (test code = 15860-1) [facility] [id number] 19:50:00 Test Item Value Reference Interpretation Comments Range Fungus culture Fusarium A Specimen isolate (test code species Informati onSpecimen = 580-1) Source: [facility] Site: Left Eye PHOENIX (test code = ONLY CXFUN IS PHOENIX) REQUESTED ON REQ Lab Interpretation Abnormal (test code = 08837-2) [facility] [id number] 19:50:00 Test Item Value Reference Interpretation Comments Range Fungus culture Fusarium A Specimen isolate (test code species Informati onSpecimen = 580-1) [facility] PHOENIX (test code = ONLY CXFUN IS PHOENIX) REQUESTED ON REQ Lab Interpretation Abnormal (test code = 44677-3) [facility] [id number] 19:50:00 Test Item Value Reference Interpretation Comments Range Fungus culture Fusarium A Specimen isolate (test code species Informati onSpecimen = 580-1) [facility] PHOENIX (test code = ONLY CXFUN IS PHOENIX) REQUESTED ON REQ Lab Interpretation Abnormal (test code = 22508-7) [facility] [id number] 16:56:00 Test Item Value Reference Range Interpretation Comments SPECIFIC GRAVITY 1.005-1.030 (test code = 5811-5) PH (test code = 5.0-7.5 5803-2) URINE-COLOR (test Yellow Yellow code = 5778-6) APPEARANCE (test code Clear Clear = 5767-9) WBC ESTERASE (test 1+ Negative A code = 5799-2) PROTEIN (test code = Negative Negative/Trace 36853-1) GLUCOSE (test code = Negative Negative 71653-3) KETONES (test code = Negative Negative 2514-8) OCCULT BLOOD (test Negative Negative code = 5794-3) BILIRUBIN (test code Negative Negative = 5770-3) UROBILINOGEN,SEMI-QN 0.2 mg/dL 0.2-1.0 (test code = 92932-5) NITRITE, URINE (test Negative Negative code = 5802-4) MICROSCOPIC See below: Microscopic was EXAMINATION (test indicated and was code = 45931-6) performed. PHOENIX (test code = PHOENIX) [facility] results reported in Eastern Time. [facility] Clinical Information:SRC :Urine*Urine ?[facility] Source of Specimen:Urine* Urine Lab Interpretation Abnormal (test code = 17382-6) Cheyenne SeyboldMICROSCOPIC [id number] 16:56:00 Test Item Value Reference Range Interpretation Comments WBC (test code = 11-30 See_Comment A [Automated 5821-4) message] The system which generated this result transmit senthil reference range : 0 - 5 /hpf. The reference range was not used to interpret this result as normal/abnormal . RBC (test code = None seen See_Comment [Automated 44385-5) message] The system which generated this result [...] code = None seen None seen /lpf 34490-1) BACTERIA (test code = None seen None seen/Few 5769-5) PHOENIX (test code = PHOENIX) [facility] results reported in Eastern Time. [facility] Clinical Information:SRC :Urine*Urine ?[facility] Source of Specimen:Urine* Urine Lab Interpretation Abnormal (test code = 57446-7) Cheyenne GrimesoldMAGNESIUM, [id number] 14:37:00 Test Item Value Reference Range Interpretation Comments MAGNESIUM, SERUM 1.9 mg/dL 1.6-2.3 (test code = 91042-7) PHOENIX (test code = PHOENIX) [facility] results reported in Eastern Time. [facility] Clinical Information:[facility] Source of Specimen:Blood, venous*Venipunc Cheyenne GrimesoldPHOSPHORUS, [id number] 14:37:00 Test Item Value Reference Range Interpretation Comments PHOSPHORUS, SERUM 3.2 mg/dL 2.8-4.1 (test code = 2777-1) PHOENIX (test code = PHOENIX) [facility] results reported in Eastern Time. [facility] Clinical Information:SRC:Blood, venous*Venipunc ture ? [facility] Source of Specimen:Blood, venous*Venipunc Cheyenne GrimesoldCOMP. METABOLIC PANEL (14)2021-04-03 14:09:00 Test Item Value [...] AM 70 mL/min/1.73 >59 (test code = 43649-5) EGFR IF AFRICN AM 81 mL/min/1.73 >59 In acc ordance with (test code = recommendations from 20038-5) the NKF-ASN Tas k force, ?[facility] rp [...] SERUM (test 9.4 mg/dL 8.7-10.2 code = 64199-7) PROTEIN, TOTAL, 7.1 g/dL 6.0-8.5 SERUM (test code = 2885-2) ALBUMIN, SERUM (test 4.7 g/dL 4.0-5.0 code = 1751-7) GLOBULIN, TOTAL 2.4 g/dL 1.5-4.5 (test code = 35914-9) A/G RATIO (test code 1.2-2.2 = 1759-0) BILIRUBIN, TOTAL 0.3 mg/dL 0.0-1.2 (test code = 1974-2) ALKALINE See_Comment H [Automated mes jing] PHOSPHATASE, SERUM The syste m which (test code = 6768-6) generat ed this result transmitted ref erence range: 44 - 121 IU/L. The reference r reece was not used to interpret this result as normal/abnor mal. AST (SGOT) (test See_Comment [Automated message] code = 1920-8) The system [employer] generated this result transmitted ref erence range: 0 - 40 I U/L. The reference r reece was not used to interpret this result as normal/abnor mal. ALT (SGPT) (test See_Comment [Automated message] code = 7702-6) The system [employer] generated this result transmitted ref erence range: 0 - 44 I U/L. The reference r reece was not used to interpret this result as normal/abnor mal. PH[place]ENIX (test code = [facility] PHOENIX) results reported in Eastern Time. [facility] Clinical Information:SR C:Blood, venous*Venipun c ture ? [facility] Source of Specimen:Blood , venous*Venipun c Lab Interpretation Abnormal (test code = 19391-3) Cheyenne Brady
[2022-04-14 03:29] LABS: Hematocrit 30.4 % (39.6-49.0); Lymphocytes % 15.8 % (15.3-44.8); MCV 95.9 fL (80-100); MPV 8.8 fL (7.6-11.3); RBC Red Blood Cell Count 3.17 M/uL (4.33-5.43)
[2022-04-14 03:43] LABS: Bilirubin Total 0.3 mg/dL (0.2-1.0); Potassium 5.2 mmol/L (3.5-5.1); Protein, Total 6.2 g/dL (6.4-8.2); Troponin High Sensitivity 3.1 pg/mL (<58.9)
[2022-04-14] MEDS ORDERED: NA CHLORIDE 0.9% 1,000 ML ONE (04:25)
[2022-04-14 06:08] VITALS: TEMP 97.9
[2022-04-14 06:11] VITALS: BP 98/60; O2SAT 96
--- NOTE | 2022-04-14 15:00 | RAD REPORT ---
EXAM DESCRIPTION: RAD - Chest Single View - 04/14/2022 2:58 am CLINICAL HISTORY: Chest pain COMPARISON: None. FINDINGS: Single frontal radiograph view of the chest. Cardiomediastinal silhouette: Normal size and contour. Lungs: No consolidation, pneumothorax, or pleural effusion. Bones: Degenerative change of the shoulders and spine. Upper abdomen: No abnormality identified. IMPRESSION: 1. No acute pulmonary process identified. Electronically signed by: Harshal Toro 04/14/2022 3:15 AM FIRE TOWER KEEPER Due to temporary technical issues with the PACS/Fluency reporting system, reports are being signed by the in house radiologists without review as a courtesy to insure prompt reporting. The interpreting radiologist is fully responsible for the content of the report.
--- NOTE | 2022-04-14 15:18 | RAD REPORT ---
EXAM DESCRIPTION: CT - Head C Spine Mpr Wo Con - 04/14/2022 5:17 am CLINICAL HISTORY: Altered mental status COMPARISON: 09/18/2019 TECHNIQUE: Axial CT of the head obtained from the skull apex to the skull base without contrast. Axi al CT images of the cervical spine obtained from the skull base through the thoracic inlet. Sagittal and coronal reformatted images available. This exam was performed according to our departmental dose- optimization program, which includes automated exposure control, adjustment of the mA and/or kV accor ding to patient size and/or use of iterative reconstruction technique. FINDINGS: CT head: No acute intracranial hemorrhage identified. No mass, mass effect, shift of the midline, abnormal ext ra-axial fluid collection or CT evidence of acute ischemic change identified. The ventricular system is unremarkable. No acute abnormalities of the supratentorial white matter, basal ganglia, cerebell um, or brainstem. The visualized paranasal sinuses and the mastoids are clear. No skull fracture identified. Visualized orbits and globes are unremarkable. Cervical CT: Alignment of the cervical spine is maintained without evidence of subluxation. The atlantoaxial, at lantodental, and occipitoatlantal intervals are preserved. No fracture identified. Vertebral body h eight preserved. Prevertebral soft tissues are unremarkable. Mild multilevel loss of intervertebral disc height with endplate spondylosis. Visualized skull base is intact. No fracture of the visualized facial bones. Visualized mastoid air c ells and paranasal sinuses are well aerated. Visualized thyroid is unremarkable. No cervical lymphadenopathy. No pneumothorax in the visualized lung apices. IMPRESSION: 1. No acute intracranial abnormality. 2. No acute fracture or subluxation of the cervical spine. 3. Mild multilevel degenerative change of the cervical spine. Electronically signed by: Harshal Toro 04/14/2022 3:33 AM MOLD CAPPER Due to temporary technical issues with the PACS/Fluency reporting system, reports are being signed by the in house radiologists without review as a courtesy to insure prompt reporting. The interpreting radiologist is fully responsible for the content of the report.
--- NOTE | 2022-04-14 17:32 | EKG ---
Test Date: 2022-04-14 Test Time: 04:09:53 Instructor Robotics: KAYCEE MEASUREMENT RESULTS: Intervals: Rate: 66 OH: 176 QRSD: 98 QT: 390 QTc: 408 [place]: P: 25 OH: 176 QRS: 51 T: 48 INTERPRETIVE STATEMENTS: Normal sinus rhythm Normal ECG Compared to ECG 02/12/2022 16:13:49 No significant changes Electronically Signed On 04-14-22 17:30:57 MAINFRAME PROGRAMMER by Trell Erwin
--- NOTE | 2022-05-01 14:13 | ER ---
Nurse's Notes [facility] Name: Rhett Ayers Age: 46 yrs Sex: Male : 1975 Arrival Date: 04/14/2022 Time: 02:55 Bed 13 Private MD: Diagnosis: Dehydration;Acute hypovolemia, acute on chronic renal insufficiency, chronic kidney disease, generalized weakness Presentation: 04/14 01:40 Chief complaint: Patient states: his states he is acting confused and he feels bb confused as well thinks he "over did it this week". Coronavirus screen: At this time, the client does not indicate any symptoms associated with coronavirus-19. Ebola Screen: No symptoms or risks identified at this time. 01:40 Method Of Arrival: Ambulatory bb 01:45 Initial Sepsis Screen: Does the patient meet any 2 criteria? No. Patient's initial bb sepsis screen is negative. Does the patient have a suspected source of infection? No. Patient's initial sepsis screen is negative. Risk Assessment: Do you want to hurt yourself or someone else? Patient reports no desire to harm self or others. Onset of symptoms was April 14, 2022. 01:45 Acuity: SANTIAGO 3 bb Historical: - Allergies: 03:04 No Known Allergies; bb - Home Meds: 03:04 hydrocodone [Active]; Flexeril Oral [Active]; morphine Oral [Active]; gabapentin oral bb [Active]; - PMHx: 03:04 CKD; compressed discs; Diabetes - NIDDM; gastric ulcer; Hypertension; Kidney stone; bb Orthostatic hypotension; PUD; - PSHx: 03:04 Cholecystectomy; Gatric Bypass; Ureter sx; left corneal transplant; bb - Immunization history:: Client reports receiving the 2nd dose of the Covid vaccine, Moderna. - Social history:: Denied use of tobacco alcohol or drug. Screenin:02 [facility] ED Fall Risk Assessment (Adult) History of falling in the last 3 months, jb4 including since admission No falls in past 3 months (0 pts) Confusion or Disorientation No (0 pts) Score/Fall Risk Level 0 - 2 = Low Risk Oriented to surroundings, Maintained a safe environment. Abuse screen: Denies threats or abuse. Nutritional screening: No deficits noted. Tuberculosis screening: No symptoms or risk factors identified. Assessment: 02:00 General: Appears in no apparent distress. comfortable, Behavior is calm, cooperative, jb4 appropriate for age. Pain: Denies pain. Neuro: Level of Consciousness is awake, alert, obeys commands, Oriented to person, place, time, situation. Cardiovascular: Patient's skin is warm and dry. Respiratory: Airway is patent Respiratory effort is even, unlabored, Respiratory pattern is regular, symmetrical. GI: No signs and/or symptoms were reported involving the gastrointestinal system. : No signs and/or symptoms were reported regarding the genitourinary system. EENT: No signs and/or symptoms were reported regarding the EENT system. Derm: Skin is intact, Skin is pink, warm \\T\\ dry. Musculoskeletal: Circulation, motion, and sensation intact. Range of motion: intact in all extremities. 03:45 Reassessment: Patient appears in no apparent distress at this time. Patient and/or jb4 family updated on plan of care and expected duration. Pain level reassessed. Patient is alert, oriented x 3, equal unlabored respirations, skin warm/dry/pink. 05:00 Reassessment: Patient appears in no apparent distress at this time. Patient and/or jb4 family updated on plan of care and expected duration. Pain level reassessed. Patient is alert, oriented x 3, equal unlabored respirations, skin warm/dry/pink. 06:00 Reassessment: Patient appears in no apparent distress at this time. Patient and/or jb4 family updated on plan of care and expected duration. Pain level reassessed. Patient is alert, oriented x 3, equal unlabored respirations, skin warm/dry/pink. Vital Signs: 01:45 BP 110 / 72; Pulse 70; Resp 16 S; Temp 97.9(O); Pulse Ox 99% on R/A; Weight 120.2 kg bb (R); Height 6 ft. 2 in. (R); Pain 0/10; 03:47 BP 102 / 66; Pulse 66; Resp 16; Pulse Ox 100% on R/A; jb4 04:15 BP 98 / 60; Pulse 68; Resp 16; Pulse Ox 96% on R/A; jb4 01:45 Body Mass Index 34.02 (120.20 kg, 187.96 cm) 01:45 Pain Scale: Adult ED Course: 01:40 Arm band placed on Patient placed in an exam room, on a stretcher, on pulse oximetry. aman Family accompanied patient. 02:55 Patient arrived in ED. jb4 02:55 Leighton Cotton MD is Attending Physician. sp4 03:04 Triage completed. aman 03:33 Mainor Hunt, RN is Primary Nurse. jb4 06:02 Patient has correct armband on for positive identification. Bed in low position. Call jb4 light in reach. Side rails up X 1. Client placed on continuous cardiac and pulse oximetry monitoring. NIBP monitoring applied. 06:02 No provider procedures requiring assistance completed. IV discontinued, intact, jb4 bleeding controlled, No redness/swelling at site. Pressure dressing applied. Administered Medications: 04:22 Drug: NS 0.9% IV 1000 ml Route: IV; Rate: 1 bolus; Site: right antecubital; jb4 Medication: 06:02 VIS not applicable for this client. jb4 Outcome: 04:59 Discharge ordered by MD. sp4 06:02 Discharged to home ambulatory, with family. jb4 06:02 Condition: stable 06:02 Discharge instructions given to patient, Instructed on discharge instructions, follow up and referral plans. medication usage, Demonstrated understanding of instructions, follow-up care, medications, Prescriptions given X 1. 06:03 Patient left the ED. jb4 Signatures: Mirtha Ruiz RN RN Mainor Rico, RN RN jb4 Leighton Cotton MD MD sp4
--- NOTE | 2022-05-01 14:14 | EDPHYS ---
Physician Documentation [facility] Name: Rhett Ayers Age: 46 yrs Sex: Male : 1975 Arrival Date: 04/14/2022 Time: 02:55 Bed 13 Private MD: ED Physician Leighton Cotton HPI: 04/14 02:56 This 46 yrs old Male presents to ER via Unassigned with complaints of Acute sp4 confusion. 02:56 . sp4 03:31 . sp4 03:42 46-year-old male presents with complaint of acute confusion starting 3 days ago, sp4 patient states that he talks out of his head and his has noticed that he is saying strange things, patient also complained of some generalized weakness and feeling unwell. Patient has extensive past medical history of chronic back pain, diabetes mellitus type 2, gastric ulcer, anemia, hypertension, chronic kidney disease stage II, history of Rahul-en-Y gastric bypass, skin phimosis with a penile skin graft, history of cholecystectomy, history of right knee surgery, patient was admitted in the hospital on 02/12/2022 for CKD with hyperkalemia, diabetes ulceration of right foot, with peripheral arterial disease and osteomyelitis, diabetes management, chronic pain, and hypertension. Besides confusion and generalized weakness patient has denied any other symptoms today. 03:44 Patient's medications include gabapentin 800 mg 3 times a day, fluoxetine daily, sp4 morphine extended release MS Contin daily, carvedilol twice daily, [place] 10 every 6 hours as needed for pain, and Flexeril 10 mg 3 times a day. Historical: - Allergies: 03:04 No Known Allergies; bb - Home Meds: 03:04 hydrocodone [Active]; Flexeril Oral [Active]; morphine Oral [Active]; gabapentin oral bb [Active]; - PMHx: 03:04 CKD; compressed discs; Diabetes - NIDDM; gastric ulcer; Hypertension; Kidney stone; bb Orthostatic hypotension; PUD; - PSHx: 03:04 Cholecystectomy; Gatric Bypass; Ureter sx; left corneal transplant; bb - Immunization history:: Client reports receiving the 2nd dose of the Covid vaccine, Moderna. - Social history:: Denied use of tobacco alcohol or drug. ROS: 03:44 Constitutional: Negative for fever, chills, and weight loss, reported feeling unwell, sp4 generalized weakness, and acute confusion Eyes: Negative for injury, pain, redness, and discharge, ENT: Negative for injury, pain, and discharge, Neck: Negative for injury, pain, and swelling, Cardiovascular: Negative for chest pain, palpitations, and edema, Respiratory: Negative for shortness of breath, cough, wheezing, and pleuritic chest pain, Abdomen/GI: Negative for abdominal pain, nausea, vomiting, diarrhea, and constipation, Back: Negative for injury and pain, : Negative for injury, bleeding, discharge, and swelling, MS/Extremity: Negative for injury and deformity, Skin: Negative for injury, rash, and discoloration, Neuro: Negative for headache, weakness, numbness, tingling, and seizure, Psych: Negative for depression, anxiety, suicide ideation, homicidal ideation, and hallucinations, reported acute confusional state Allergy/Immunology: Negative for hives, rash, and allergies, Endocrine: Negative for neck swelling, polydipsia, polyuria, polyphagia, and marked weight changes, Hematologic/Lymphatic: Negative for swollen nodes, abnormal bleeding, and unusual bruising. Exam: 03:44 Constitutional: This is a well developed, well nourished patient who is awake, alert, sp4 and in no acute distress. Overweight male who is chronic ill appearance but nontoxic Head/Face: Normocephalic, atraumatic. Eyes: Pupils equal round and reactive to light, extra-ocular motions intact. Lids and lashes normal. Conjunctiva and sclera are non-icteric and not injected. Cornea within normal limits. Periorbital areas with no swelling, redness, or edema. ENT: Nares patent. No nasal discharge, no septal abnormalities noted. Tympanic membranes are normal and external auditory canals are clear. Oropharynx with no redness, swelling, or masses, exudates, or evidence of obstruction, uvula midline. Mucous membranes moist. Neck: Trachea midline, no thyromegaly or masses palpated, and no cervical lymphadenopathy. Supple, full range of motion without nuchal rigidity, or vertebral point tenderness. No Meningismus. Chest/axilla: Normal chest wall appearance and motion. Nontender with no deformity. No lesions are appreciated. Cardiovascular: Regular rate and rhythm with a normal S1 and S2. No gallops, murmurs, or rubs. Normal PMI, no JVD. No pulse deficits. Respiratory: Lungs have equal breath sounds bilaterally, clear to auscultation and percussion. No rales, rhonchi or wheezes noted. No increased work of breathing, no retractions or nasal flaring. Abdomen/GI: Soft, non-tender, with normal bowel sounds. No distension or tympany. No guarding or rebound. No evidence of tenderness throughout. Back: No spinal tenderness. No costovertebral tenderness. Full range of motion. Male : Normal genitalia with no discharge or lesions. Penile skin graft from prior surgery Skin: Warm, dry with normal turgor. Normal color with no rashes, no lesions, and no evidence of cellulitis. MS/ Extremity: Pulses equal, no cyanosis. Neurovascular intact. Full, normal range of motion. Neuro: Awake and alert, GCS 15, oriented to person, place, time, and situation. Cranial nerves II-XII grossly intact. Motor strength 5/5 in all extremities. Sensory grossly intact. Cerebellar exam normal. Normal gait. Psych: Awake, alert, with orientation to person, place and time. Behavior, mood, and affect are within normal limits. Alert and oriented and has normal memory by exam, no sign of confusion 04:22 ECG was reviewed by the Attending Physician. Normal sinus rhythm at the rate of 66, no sp4 ST elevation or depression, no ectopy, normal axis, normal intervals, EKG done at 040 9 in the morning Vital Signs: 01:45 BP 110 / 72; Pulse 70; Resp 16 S; Temp 97.9(O); Pulse Ox 99% on R/A; Weight 120.2 kg bb (R); Height 6 ft. 2 in. (R); Pain 0/10; 03:47 BP 102 / 66; Pulse 66; Resp 16; Pulse Ox 100% on R/A; jb4 04:15 BP 98 / 60; Pulse 68; Resp 16; Pulse Ox 96% on R/A; jb4 01:45 Body Mass Index 34.02 (120.20 kg, 187.96 cm) bb 01:45 Pain Scale: Adult bb MDM: 03:01 Patient medically screened. sp4 03:51 Differential Diagnosis altered mental status, sepsis, flu. Data reviewed: vital signs, sp4 nurses notes, old medical records, lab test result(s), radiologic studies. ED course: Chest x-ray revealed no acute cardiopulmonary process, CT head and C-spine revealed no acute finding, blood work reveals worsening renal function. 04:56 ED course: Patient appears to have decreased kidney function and some degree of sp4 dehydration, he was given IV saline 1 L, patient's CT head and CT C-spine revealed no acute intracranial abnormality, no acute fracture or subluxation, mild multilevel degenerative changes of the cervical spine. Patient's chest x-ray is clear with no acute pulmonary process identified. Patient is stable for discharge home with recommendations to see a body and fender worker on outpatient basis in 7 to 10 days for repeat kidney function check. 04/14 03:30 Order name: CBC with Automated Diff; Complete Time: 03:48 EDMS 04/14 03:44 Order name: Comprehensive Metabolic Panel; Complete Time: 03:48 EDMS 04/14 03:44 Order name: Creatine Phosphokinase; Complete Time: 03:48 EDMS 04/14 03:44 Order name: Troponin High Sensitivity; Complete Time: 03:48 EDMS 04/14 03:44 Order name: Lipase; Complete Time: 03:48 EDMS 04/14 03:51 Order name: Urinalysis w/ reflexes sp4 04/14 04:25 Order name: Alcohol Serum/Plasma; Complete Time: 04:54 EDMS 04/14 03:58 Order name: EKG; Complete Time: 03:59 sp4 04/14 03:58 Order name: EKG - Nurse/Tech; Complete Time: 04:13 sp4 04/14 03:58 Order name: Saline Lock; Complete Time: 03:59 sp4 EC:22 Rate is 66 beats/min. Rhythm is regular. QRS [place] is Normal. [place] interval is normal. QRS sp4 interval is normal. No ST changes noted. Clinical impression: Normal ECG. Interpreted by me. Administered Medications: 04:22 Drug: NS 0.9% IV 1000 ml Route: IV; Rate: 1 bolus; Site: right antecubital; jb4 Disposition Summary: 04/14/22 04:59 Discharge Ordered Location: Home sp4 Problem: new sp4 Symptoms: have improved sp4 Condition: Stable sp4 Diagnosis - Dehydration sp4 - Acute hypovolemia, acute on chronic renal insufficiency, chronic kidney disease, sp4 generalized weakness Followup: sp4 - With: Private Physician - When: 7 - 10 days - Reason: Re-evaluation by your physician Discharge Instructions: - Discharge Summary Sheet sp4 - Dehydration, Adult sp4 Forms: - Medication Reconciliation Form sp4 - Thank You Letter sp4 Prescriptions: - Zofran 4 mg Oral Tablet - take 1 tablet by ORAL route every 12 hours As needed; 20 tablet; Refills: 0, sp4 Product Selection Permitted Signatures: Dispatcher [employer] Mirtha Stewart RN RN bb Mainor Hunt RN RN jb4 Leighton Cotton MD MD sp4
== END 2022-04-14 06:03 | disposition home or self-care (01) ==
LOC: ER 01:31
DX: E86.0 Dehydration (principal); E86.1 Hypovolemia; E11.22 Type 2 diabetes mellitus with diabetic chronic kidney disease; I12.9 Hypertensive chronic kidney disease with stage 1 through stage 4 chronic kidney disease, or unspecified chronic kidney disease; N18.9 Chronic kidney disease, unspecified
CPT/HCPCS: 93005; 85025; 36415; 82550; 84484; 83690; 80053; 70450; 72125; 71045; 99283; J7030; G0480

== ENCOUNTER 2022-07-18 23:26 | Emergency (ER) | payer OTHER ==
--- OUTSIDE RECORDS SUMMARY | 2022-07-18 23:58 | XMS REPORT | Continuity of Care Document ---
:[address] [facility] t Address [address] [place] [address] Care Team Providers Name Role Phone Caroline Valle Primary Care Physician MIRA BEDOYA Attending Clinician Unavailable CAROLINE VALLE Attending Clinician Unavailable CHRISTA GOMEZ Attending Clinician Unavailable Roselyn Attending Clinician Unavailable GWENDOLYN CROOKS Attending Clinician Unavailable HANK LEPE Attending Clinician Unavailable Savage Attending Clinician Unavailable Doctor Unassigned, [place] Attending Clinician Unavailable MASSUMI, CHARLENE Attending Clinician Unavailable CEASAR SAINI Attending Clinician Unavailable 39, HOLTER Attending Clinician Unavailable LAB90 Attending Clinician Unavailable KEITH SCHWARTZ Attending Clinician Unavailable Hank Lepe MD Attending Clinician [phone] HANK LEPE Attending Clinician Unavailable Hank Lepe MD Attending Clinician [phone] Yas Morataya MD Attending Clinician [phone] Zoya Lux CRNA Attending Clinician [phone] RUPINDER JOHNSON Attending Clinician Unavailable EMIGDIO ALCALA Attending Clinician Unavailable LAB39 Attending Clinician Unavailable SURENDRA SANDOVAL Attending Clinician Unavailable ALMAS JACOB Attending Clinician Unavailable LAB47 Attending Clinician Unavailable DIEGO LORENZO Attending Clinician Unavailable Almas Jacob MD Attending Clinician ED SASM Attending Clinician Unavailable Evie Gusman MD Attending Clinician [phone] EVIE GUSMAN Attending Clinician Unavailable ANDRÉS CHAUDHRY Attending Clinician Unavailable Andrés Chaudhry MD Attending Clinician Mickie Jackson RN Attending Clinician BROOKS GIRALDO Attending Clinician Unavailable [...] Unavailable Ryder Nathan MD Attending Clinician Leonard REALTIME REPORTER-CCaroline Attending Clinician MD GEOVANNI Attending Clinician Unavailable [...] Clinician Unavailable HOMA BRANTLEY Attending Clinician Unavailable Prajose_S Admitting Clinician Unavailable Savage Admitting Clinician Unavailable HANK LEPE Admitting Clinician Unavailable [...] Number Effective Date Expiration Date S devin [facility] GOLD 9 [id number] 2022 [employer] HMO ON 00:00:00 DARS [id number] [employer] - [id number] [place] [employer] EPO [id number] 2022 2022 - AETNA 00:00:00 00:00:00 PPO/EPO - BCBS [id number] [facility] [place] 2 [id number] 2021 [facility] 00:00:00 ADMINISTRATORS BCBS 2 [id number] 2021 00:00:00 [place] - OUT [id number] 2008 [facility] 00:00:00 Problems Condition Condition Condition Status Onset Resolution Last Treating Co mments Source Name Details Category Date Date Treatment Clinician Date Degenerati Degenerati Problem Active V illage ve joint ve Joint 5-23 Family disease Disease 00:00: Practic involving Involving 00 e multiple Multiple joints Joints Diabetes Diabetes Disease Active Kelse y mellitus mellitus 1-16 Seybol d type 2 in type 2 in 00:00: - obese obese 00 Externa l 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-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 ulcer of 00:00: - left eye left eye 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 l Type 2 Type 2 Disease [...] on - Not on - Not 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 Controlled Controlled l Acquired Acquired Disease [...] 00:00: - of right of right 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 knee - Not knee - Not [...] Externa l Prediabete Prediabete Disease Active K paramy s - s - - [place] Controlled Controlled 00:00: 00 MIGUEL (acute MIGUEL (acute Disease Active 2020-02 U dale kidney kidney 2-06 ity of injury) injury) 00:00: [place] [address] Medical [facility] Obesity Obesity Disease Active 2020-02 Univers (BMI (BMI 2-06 ity of 30-39.9) 30-39.9) 00:00: [place] [address] Medical Branch Primary Primary Disease Active 2020-02 Univers hypertensi hypertensi 2-06 it y of on on 00:00: [place] [address] Medical Branch Type 2 Type 2 Disease Active 2020-02 Univers diabetes diabetes 2-06 ity of mellitus mellitus 00:00: [place] without without 00 Medical complicati complicati Br anch on, on, without without long-term long-term current current use of use of insulin insulin Elevated Elevated Disease Active 2020-02 Unive rs brain brain 2-06 ity of natriureti natriureti [place] c peptide c peptide 00 Medi damien (BNP) (BNP) Branch level level Anemia Anemia Disease Active 2020-02 Univers 2-06 ity of 00:00: [place] [address] Medical Branch Hyperkalem Hyperkalem Disease Active 2020-02 U dale ia ia 2-05 ity of 00:00: [address] Allergies, Adverse Reactions, Alerts Allergy Allergy Status Severity Reaction(s) Onset Inactive Treating Comm ents Source Name Type Date Date Clinician AMLODIPI Allergy [facility] Amlodipi Drug Active [facility] Fd&C Propensi Active 2021-02 Other [place] Blue ty to 02-16 reaction( [place] #1-Fd&C adverse 00:00: s): - Yellow reaction 00 Hallucina Exter na #10-Morp s tions l chandrika Amlodipi Propensi Active Swelling Wanda ey ne ty to 09-29 [place] adverse 00:00: - reaction 00 Externa s l No Known DA Active U [facility] -27 [place] Intolera 00:00: d nces 00 [facility] Center NO KNOWN Drug Active Univers ALLERGIE Class ity of S [facility] Social History Social Habit Start Date Stop Date Quantity Comments Source History SDOH [facility] Alcohol Comment Medical C enter [facility] Sexual orientation [facility] History SDOH [facility] Alcohol Std Drinks Medica l Center History SDOH [facility] Alcohol Binge Medical Izaiah ter Exposure to 2022-02-22 2022-03-[address] [facility] SARS-CoV-2 (event) 00:00:00 11:41:00 Medica l Center Alcohol intake 2022-03-04 2022-03-04 Ex-drinker [facility] 00:[facility]00 00:00:00 (finding) Medical Center History SDOH 2022-03-04 2022-03-[address] [facility] Alcohol Frequency 00:00:00 00:00:00 [facility] Center Tobacco use and 2022-03-04 2022-03-[address] [facility] exposure 00:00:00 00:00:00 tobacco non-user Medical Center History of Social 2021-06-04 2021-06-04 [place]bold - function 00:00:00 00:00:00 External Sex Assigned At [address] [facility] 00:00:00 00:00:00 Medical Center Smoking Status Start Date Stop Date Source Tobacco smoking consumption unknown [facility] Medications Ordered Filled Start Stop Current Ordering Indication Dosage Frequency Signature Comments Components Source Medication Medication Date Date Medication? Clinician (SIG) Name Name HYDROcodone Yes 1{tbl} Q.25D Take 1 K elsey -Acetaminop 5-15 tablet by Leti shaver 10-325 00:00: mouth - MG oral 00 every 6 Externa Tablet hours as l needed for pain Morphine Yes [id number] 1{tbl} Take 1 [place] Sulfate ER 5-15 tablet by Seyb old 15 MG oral 00:00: mouth - Tab CR 00 every 24 Externa hours l Cyclobenzap Yes [id number] 10mg Q.[id number] Take 1 [place] rine HCl 10 5-08 9107 [id number] tablet (10 Seybold MG oral 00:00: 3D mg total) - Tablet 00 by mouth 3 Externa times l daily as needed for muscle spasms Gabapentin 2022-0 Yes 1200mg Take 2 Cole sey (Neurontin) 5-08 tablets Seybo ld 600 MG oral 00:00: (1,200 mg - Tablet 00 total) by Externa mouth 3 l times daily No driving. No alcohol. No operating machinery. Morphine 2022-0 202- No [id number] 1{tbl} Take 1 [place] Sulfate ER 4-14 05-05 tablet by Sey bold 15 MG oral 00:00: 00:00 mouth - Tab CR 00 :00 every 24 Externa hours l HYDROcodone 2022-0 Yes 1{tbl} Q.25D Take 1 K elsey -Acetaminop 4-10 tablet by Sey bold hen 10-325 00:00: mouth - MG oral 00 every 6 Externa Tablet hours as l needed for pain Morphine 2022-0 Yes 15mg Take 15 mg Cole sey Sulfate ER 4-10 by mouth Seybo ld 30 MG oral 00:00: every 24 - Tab CR 00 hours Externa l Carvedilol 2022-0 Yes [id number] TAKE ONE [place] 12.5 MG 4-10 TABLET BY Seybold oral Tablet 00:00: MOUTH - 00 EVERY Externa MORNING l AND TAKE ONE TABLET BY MOUTH EVERY EVENING WITH A MEAL Cyclobenzap 2022-0 2022- No [id number] TAKE ONE [place] rine HCl 10 4-10 05-08 TABLET BY Se ybold MG oral 00:00: 00:00 MOUTH - Tablet 00 :00 THREE Externa TIMES A l DAY NEEDED FOR MUSCLE SPASMS Gabapentin 2022-0 2023- No [id number] TAKE ONE [place] 800 MG oral 4-10 05-08 TABLET BY Se ybold Tablet 00:00: 00:00 MOUTH - 00 :00 THREE Externa TIMES A l DAY NEEDED FOR NERVE PAIN HYDROcodone 2022-0 202- No 1{tbl} Q.25D Take 1 [place] -Acetaminop 4-10 05-05 tablet by Se ybold hen 10-325 00:00: 00:00 mouth - MG oral 00 :00 every 6 Externa Tablet hours as l needed for pain Fluoxetine 2022-0 Yes [id number] TAKE ONE [place] HCl 40 MG 3-20 CAPSULE BY Seyb old oral 00:00: MOUTH - Capsule 00 DAILY Externa l Doxepin HCl 2022-0 Yes [id number] TAKE ONE [place] 75 MG oral 3-20 CAPSULE BY Leti bold Capsule 00:00: MOUTH - 00 EVERY Externa NIGHT AT l BEDTIME HYDROcodone 2022-0 Yes 1{tbl} Q.25D Take 1 K elsey -Acetaminop 3-13 tablet by Leti INRFOOD hen 10325 00:00: mouth - MG oral 00 every 6 Externa Tablet hours as l needed for pain Morphine 2022-0 Yes 15mg Take 15 mg Cole sey Sulfate ER 3-13 by mouth Seybo ld 15 MG oral 00:00: every 24 - Tab CR 00 hours Externa l HYDROcodone 2022-0 Yes 1{tbl} Q.25D Take 1 K elsey -Acetaminop 3-13 tablet by MedWhat hen 10325 00:00: mouth - MG oral 00 every 6 Externa Tablet hours as l needed for pain HYDROcodone 2022-0 Yes [id number] 1{tbl} Q.25D Take 1 [place] -Acetaminop 2-13 tablet by MedWhat hen 10325 00:00: mouth - MG oral 00 every 6 Externa Tablet hours as l needed for pain Morphine 2022-0 Yes [id number] 1{tbl} Take 1 [place] Sulfate ER 2-13 tablet by Seyb old 15 MG oral 00:00: mouth - Tab CR 00 every 24 Externa hours l HYDROcodone 2022-0 Yes [id number] 1{tbl} Q.25D Take 1 [place] -Acetaminop 2-13 tablet by Xuehuile hen 10325 00:00: mouth - MG oral 00 every 6 Externa Tablet hours as l needed for pain Baclofen 10 2022-0 2022- No TAKE ONE K elsey MG oral 2-08 02-08 TABLET BY Seybol d Tablet 00:00: 00:00 MOUTH - 00 :00 THREE Externa TIMES A l DAY NEEDED FOR M USCLE SPASMS OR PAIN Voriconazol 2022-0 2022- No 200mg Take 200 [place] e 200 MG 2-03 02-25 mg by Seybold oral Tablet 00:00: 05:59 mouth 2 - 00 :00 times Externa daily l Cyclobenzap 2022-0 Yes 10mg Q.[id number] Take 1 [place] rine HCl 10 03-09 [id number] tablet (10 Seybold MG oral 00:00: 3D mg total) - Tablet 00 by mouth 3 Externa times l daily as needed for muscle spasms Atropine Yes 1[drp] Inject 1 Cole sey Sulfate 1 % 1-26 drop into Sey bold ophthalmic 00:00: the eye 2 - Solution 00 times Externa daily l Atropine Yes 1[drp] Inject 1 Cole sey Sulfate [...] 26 times Center daily. moxifloxaci Yes 1[drp] Q.[id number] Apply [address] [facility] (VIGAMOX) 1-25 [id number] drop to [facility] 0.5 % 17:40: 3D [...] mg/actuatio 17:40: route as Me dical n [place] 26 needed for Center Opioid Reversal. fluconazole [...] Center times daily with breakfast and dinner. moxifloxaci Yes 1[drp] Q.[id number] Apply [address] [facility] (VIGAMOX) 1-25 [id number] drop to [facility] 0.5 % 17:40: 3D eye(s) 3 Medical ophthalmic 26 (three) Center solution times daily. HYDROcodone Yes 1{tbl} Take [address] -acetaminop 1-25 tablet by Shad shaver (NORCO 17:40: mouth Medica l 10-325) 26 every 6 Center 10-325 mg (six) per tablet hours as needed for Pain. magnesium Yes 64mg QD Take [address] chloride 1-25 by mouth [facility] (Mag 64) 64 17:40: daily. Medi damien mg DR 26 Center tablet morphine Yes severe 15mg QD Take [address] (MS CONTIN) 1-25 chronic by mouth L ukes 15 MG 12 hr 17:40: pain daily. Medi damien tablet 26 requiring Center long-term opioid treatment naloxone Yes 1{spray [address] (Narcan) 4 1-25 } Nasal [facility] mg/actuatio 17:40: route as Me dical n [place] 26 needed for Center Opioid Reversal. fluconazole [...] MG capsule 17:40: daily. Medic al 26 [place] doxepin Yes 75mg QD Take [address] (SINEquan) 1-25 by mouth [facility] 75 MG 17:40: nightly. Medical capsule 26 [place] gabapentin Yes 800mg Q.[id number] Take [address] (NEURONTIN) 1-25 [id number] mg by L ukes 800 MG 17:40: 3D mouth 3 Medical tablet 26 (three) Center times daily. ondansetron Yes 4mg Take [address] (ZOFRAN) 4 1-25 by mouth 3 Shad es MG tablet 17:40: (three) Medic al 26 times Center daily as needed for Nausea. FLUoxetine Yes 40mg QD Take [address] (PROzac) 40 1-25 by mouth Luke s MG capsule 17:40: daily. Medic al 26 [place] senna Yes constipatio 1{tbl} QD Take [address] (SENOKOT) 1-25 n tablet by [facility] 8.6 mg 17:40: mouth Medical tablet 26 daily. [place] cyanocobala Yes 1000ug QD Take 1,[address] min 1-25 mcg by [facility] (vitamin 17:40: mouth Medical B-12) 1000 26 daily. [place] MCG tablet prednisoLON Yes 1[drp] Q.25D Apply [address] E acetate 1-25 drop to [facility] (Pred 17:40: eye(s) 4 Medical Forte) 1 % 26 (four) Center ophthalmic times suspension daily. TiZANidine Yes 6mg Q.25D Take [address] (ZANAFLEX) 1-25 by mouth 4 Shad es 6 MG 17:40: (four) Medical capsule 26 times Center daily. doxepin Yes 75mg QD Take [address] (SINEquan) 1-25 by mouth [facility] 75 MG 17:40: nightly. Medical capsule 26 Center gabapentin Yes 800mg Q.[id number] Take [address] (NEURONTIN) 1-25 [id number] mg by L ukes 800 MG 17:40: [...] 26 times Center daily. moxifloxaci Yes 1[drp] Q.[id number] Apply [address] n (VIGAMOX) 1-25 [id number] drop to [facility] 0.5 % 17:40: 3D [...] mg/actuatio 17:40: route as Me dical n [place] 26 needed for Center Opioid Reversal. fluconazole [...] Medical capsule 26 Center gabapentin Yes 800mg Q.[id number] Take [address] (NEURONTIN) 1-25 [id number] mg by L ukes 800 MG 17:40: [...] 26 times Center daily. moxifloxaci Yes 1[drp] Q.[id number] Apply [address] [facility] (VIGAMOX) 1-25 [id number] drop to [facility] 0.5 % 17:40: 3D [...] mg/actuatio 17:40: route as Me dical n [place] 26 needed for Center Opioid Reversal. fluconazole Yes 150mg QD Take [address] (DIFLUCAN) 1-25 mg by [facility] 150 MG 17:40: mouth Medical tablet 26 daily. [place] multivitami Yes 1{capsu QD Take [address] n capsule 1-25 le} capsule by Luke s 17:40: mouth Medical 26 daily. [place] carvediloL Yes 12.5mg Take 12.[address] [...] Medical capsule 26 Center gabapentin Yes 800mg Q.[id number] Take [address] (NEURONTIN) 1-25 [id number] mg by L ukes 800 MG 17:40: [...] times Center daily. moxifloxaci 0 Yes 1[drp] Q.[id number] Apply [address] [facility] (VIGAMOX) 1-25 [id number] drop to [facility]ukes 0.5 % 17:40: 3D [...] mg/actuatio 17:40: route as Me dical n [place] 26 needed for Center Opioid Reversal. fluconazole Yes 150mg QD Take [address] (DIFLUCAN) 1-25 mg by [facility] 150 MG 17:40: mouth Medical tablet 26 daily. [place] multivitami Yes 1{capsu QD Take [address] n capsule 1-25 le} capsule by Luke s 17:40: mouth Medical 26 daily. [place] carvediloL Yes 12.5mg Take 12.[address] [...] Medical capsule 26 Center gabapentin Yes 800mg Q.[id number] Take [address] (NEURONTIN) 1-25 [id number] mg by L ukes 800 MG 17:40: [...] 26 times Center daily. moxifloxaci Yes 1[drp] Q.[id number] Apply [address] [facility] (VIGAMOX) 1-25 [id number] drop to [facility] 0.5 % 17:40: 3D [...] mg/actuatio 17:40: route as Me dical n [place] 26 needed for Center Opioid Reversal. fluconazole 2023-0 Yes 150mg QD Take [address] (DIFLUCAN) 1-25 mg by [facility] 150 MG 17:40: mouth Medical tablet 26 daily. [place] multivitami Yes 1{capsu QD Take [address] n capsule 1-25 le} capsule by Luke s 17:40: mouth Medical 26 daily. [place] carvediloL Yes 12.5mg Take 12.[address] [...] MG capsule 17:40: daily. Medic al 26 [place] doxepin Yes 75mg QD Take [address] (SINEquan) 1-25 by mouth [facility] 75 MG 17:40: nightly. Medical capsule 26 [place] gabapentin Yes 800mg Q.[id number] Take [address] (NEURONTIN) 1-25 [id number] mg by Soha crawfordes 800 MG 17:40: 3D mouth 3 Medical [...] mg 17:40: mouth Medical tablet 26 daily. [place] cyanocobala Yes 1000ug QD Take 1,000 CHI [...] 26 times Center daily. moxifloxaci Yes 1[drp] Q.[id number] Apply [address] [facility] (VIGAMOX) 1-25 [id number] drop to [facility]ukes 0.5 % 17:40: 3D [...] mg/actuatio 17:40: route as Me dical n [place] 26 needed for Center Opioid Reversal. fluconazole [...] Medical capsule 26 Center gabapentin Yes 800mg Q.[id number] Take [address] (NEURONTIN) 1-25 [id number] mg by L ukes 800 MG 17:40: [...] mg 17:40: mouth Medical tablet 26 daily. [place] cyanocobala Yes 1000ug QD Take 1,[address] min 1-25 mcg by [facility]ukes (vitamin 17:40: mouth Medical B-12) 1000 26 daily. [place] MCG tablet prednisoLON Yes 1[drp] Q.25D Apply [address] E acetate 1-25 drop to [facility]ukes (Pred 17:40: eye(s) 4 Medical Forte) 1 % 26 (four) Center ophthalmic times suspension daily. TiZANidine Yes 6mg Q.25D Take [address] (ZANAFLEX) 1-25 by mouth 4 Shad es 6 MG 17:40: (four) Medical capsule 26 times Center daily. moxifloxaci Yes 1[drp] Q.[id number] Apply [address] [facility] (VIGAMOX) 1-25 [id number] drop to [facility] 0.5 % 17:40: 3D [...] mg/actuatio 17:40: route as Me dical n [place] 26 needed for Center Opioid Reversal. fluconazole Yes 150mg QD Take [address] (DIFLUCAN) 1-25 mg by [facility] 150 MG 17:40: mouth Medical tablet 26 daily. Center multivitami Yes 1{capsu QD Take [address] n capsule 1-25 le} capsule by Luke s 17:40: mouth Medical 26 daily. [place] carvediloL Yes 12.5mg Take 12.[address] [...] MG capsule 17:40: daily. Medic al 26 [place] doxepin Yes 75mg QD Take [address] (SINEquan) 1-25 by mouth [facility] 75 MG 17:40: nightly. Medical capsule 26 [place] gabapentin Yes 800mg Q.[id number] Take [address] (NEURONTIN) 1-25 [id number] mg by L ukes 800 MG 17:40: [...] mg 17:40: mouth Medical tablet 26 daily. [place] cyanocobala Yes 1000ug QD Take 1,000 CH[facility] [...] 26 times Center daily. moxifloxaci Yes 1[drp] Q.[id number] Apply [address] [facility] (VIGAMOX) 1-25 [id number] drop to [facility] 0.5 % 17:40: 3D [...] mg/actuatio 17:40: route as Me dical n [place] 26 needed for Center Opioid Reversal. fluconazole [...] Medical capsule 26 Center gabapentin Yes 800mg Q.[id number] Take [address] (NEURONTIN) 1-25 [id number] mg by L ukes 800 MG 17:40: [...] mg 17:40: mouth Medical tablet 26 daily. [place] cyanocobala Yes 1000ug QD Take 1,000 CHI [...] times Center daily. moxifloxaci 0 Yes 1[drp] Q.[id number] Apply [address] n (VIGAMOX) 1-25 [id number] drop to [facility] 0.5 % 17:40: 3D [...] } Nasal [facility]ukes mg/actuatio 17:40: route as [place] dical n [place] 26 needed for Center Opioid Reversal. fluconazole [...] Medical capsule 26 Center gabapentin Yes 800mg Q.[id number] Take [address] (NEURONTIN) 1-25 [id number] mg by L ukes 800 MG 17:40: [...] 26 times Center daily. moxifloxaci Yes 1[drp] Q.[id number] Apply [address] [facility] (VIGAMOX) 1-25 [id number] drop to [facility] 0.5 % 17:40: 3D [...] mg/actuatio 17:40: route as Me dical n [place] 26 needed for Center Opioid Reversal. fluconazole Yes 150mg QD Take [address] (DIFLUCAN) 1-25 mg by [facility] 150 MG 17:40: mouth Medical tablet 26 daily. [place] multivitami Yes 1{capsu QD Take [address] n capsule 1-25 le} capsule by Luke s 17:40: mouth Medical 26 daily. [place] carvediloL Yes 12.5mg Take 12.[address] [...] MG capsule 17:40: daily. Medic al 26 [place] doxepin Yes 75mg QD Take [address] (SINEquan) 1-25 by mouth [facility] 75 MG 17:40: nightly. Medical capsule 26 [place] gabapentin Yes 800mg Q.[id number] Take [address] (NEURONTIN) 1-25 [id number] mg by Soha crawfordes 800 MG 17:40: 3D mouth 3 Medical [...] mg 17:40: mouth Medical tablet 26 daily. [place] cyanocobala Yes 1000ug QD Take 1,[address] min 1-25 mcg by [facility]ukes (vitamin 17:40: mouth Medical B-12) 1000 26 daily. [place] MCG tablet prednisoLON Yes 1[drp] Q.25D Apply [address] E acetate 1-25 drop to [facility]ukes (Pred 17:40: eye(s) 4 Medical Forte) 1 % 26 (four) Center ophthalmic times suspension daily. TiZANidine Yes 6mg Q.25D Take [address] (ZANAFLEX) 1-25 by mouth 4 Shad es 6 MG 17:40: (four) Medical capsule 26 times Center daily. moxifloxaci Yes 1[drp] Q.[id number] Apply [address] n (VIGAMOX) 1-25 [id number] drop to [facility] 0.5 % 17:40: 3D [...] [address] [facility] (Narcan) 4 25 } Nasal [facility] mg/actuatio 17:40: route as Me dical n [place] 26 needed for Center Opioid Reversal. fluconazole [...] Medical capsule 26 Center gabapentin Yes 800mg Q.[id number] Take [address] (NEURONTIN) 1-25 [id number] mg by L ukes 800 MG 17:40: [...] 26 times Center daily. moxifloxaci Yes 1[drp] Q.[id number] Apply [address] n (VIGAMOX) 1-25 [id number] drop to [facility] 0.5 % 17:40: 3D [...] mg/actuatio 17:40: route as Me dical n [place] 26 needed for Center Opioid Reversal. fluconazole [...] Medical capsule 26 Center gabapentin Yes 800mg Q.[id number] Take [address] (NEURONTIN) 1-25 [id number] mg by Soha gibbs 800 MG 17:40: 3D mouth 3 Medical [...] 26 times Center daily. moxifloxaci Yes 1[drp] Q.[id number] Apply [address] [facility] (VIGAMOX) 1-25 [id number] drop to [facility] 0.5 % 17:40: 3D [...] mg/actuatio 17:40: route as Me dical n [place] 26 needed for Center Opioid Reversal. fluconazole [...] 75 MG 17:40: nightly. Medical capsule 26 [place] gabapentin Yes 800mg Q.[id number] Take [address] (NEURONTIN) 1-25 [id number] mg by L ukes 800 MG 17:40: [...] mg 17:40: mouth Medical tablet 26 daily. [place] cyanocobala Yes 1000ug QD Take 1,000 CH[facility] [...] 26 times Center daily. moxifloxaci Yes 1[drp] Q.[id number] Apply [address] [facility] (VIGAMOX) 1-25 [id number] drop to [facility] 0.5 % 17:40: 3D [...] mg/actuatio 17:40: route as Me dical n [place] 26 needed for Center Opioid Reversal. fluconazole [...] Medical capsule 26 Center gabapentin Yes 800mg Q.[id number] Take [address] (NEURONTIN) 1-25 [id number] mg by L ukes 800 MG 17:40: 3D mouth 3 Medical tablet 26 (three) Center times daily. ondansetron Yes 4mg Take [address] (ZOFRAN) 4 1-25 by mouth 3 Shad es MG tablet 17:40: (three) Medic al 26 times Center daily as needed for Nausea. senna Yes constipatio 1{tbl} QD Take [address] (SENOKOT) 1-25 n tablet by Vania 8.6 mg 17:40: mouth Medical tablet 26 daily. Center collagenase 2022- No 1{appli QD Apply [address] (SantyL) 1-25 -25 cation} applicatio L ukes 250 units/g 11:45: 00:00 n Medic al ointment 38 :00 topically Center daily. collagenase 2022- No 1{appli QD Apply [address] (SantyL) 1-25 -25 cation} applicatio L ukes 250 units/g 11:45: [...] QD Apply [address] (SantyL) 1-25 -25 cation} applicatio L ukes 250 units/g 11:45: 00:00 n Medic al ointment 38 :00 topically Center daily. collagenase 2022- No 1{appli QD Apply [address] (SantyL) 1-25 -25 cation} applicatio L ukes 250 units/g 11:45: [...] ointment 38 :00 topically Center daily. baclofen 2022- No 10mg Take 10 mg [...] I St (LIORESAL) 03-04 by mouth 3 Akycee kes 10 MG 11:45: 00:00 (three) Medical tablet 10 :00 times Center daily as needed (muscle spasms). baclofen 2022-0 3- No 10mg Take [address] (LIORESAL) 03-04 by mouth 3 Kaycee kes 10 MG 11:45: 00:00 (three) Medical tablet 10 :00 times Center daily as needed (muscle spasms). baclofen 2022-0 3- No 10mg Take 10 mg [facility] I [...] Center daily as needed (muscle spasms). baclofen 2023-0 2023- No 10mg Take 10 mg CH [...] Center daily as needed (muscle spasms). Moxifloxaci 2023-0 Yes [id number] INSTILL 1 [place] n HCl 0.5 % 1-24 9100 DROP IN Seybo ld ophthalmic 00:00: AFFECTED - Solution 00 EYE (S) 3 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 Moxifloxaci 2023-0 Yes [id number] INSTILL 1 [place] n HCl 0.5 % 1-24 9100 DROP IN Seybo ld ophthalmic 00:00: AFFECTED - Solution 00 EYE (S) 3 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 Moxifloxaci 2022-0 Yes [id number] INSTILL 1 [place] n HCl 0.5 % 03-03 9100 DROP IN Seybo ld ophthalmic 00:00: AFFECTED - Solution 00 EYE (S) 3 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 Morphine 2022-0 Yes [id number] 1{tbl} Take 1 [place] Sulfate ER 1-16 tablet by Seyb old 15 MG oral 00:00: mouth - Tab CR 00 every 24 Externa hours l HYDROcodone 2022-0 Yes [id number] 1{tbl} Q.25D Take 1 [place] -Acetaminop 1-16 tablet by Sey bold hen 10-325 00:00: mouth - MG oral 00 every 6 Externa Tablet hours as l needed for pain Morphine 2022-0 2023- No [id number] 1{tbl} Take 1 [place] Sulfate ER 1-16 02-07 tablet by Sey bold 15 MG oral 00:00: 00:00 mouth - Tab CR 00 :00 every 24 Externa hours l HYDROcodone 2022-0 202- No [id number] 1{tbl} Q.25D Take 1 [place] -Acetaminop 1-16 02-07 tablet by Se ybold hen 10-325 00:00: 00:00 mouth - MG oral 00 :00 every 6 Externa Tablet hours as l needed for pain HYDROcodone 2022-0 Yes [id number] Take by [place] -Acetaminop 1-11 mouth Seybold hen 10-325 08:53: - MG oral 57 Externa Tablet l Baclofen 10 2022-0 Yes 10mg [id number] Take 1 [place] MG oral 1-11 [id number] tablet (10 Seybold Tablet 00:00: 3D mg total) - 00 by mouth 3 Externa times l daily as needed for muscle spasms or pain Naloxone Yes Use as [place] (Narcan) 4 1-11 directed, Seyb old MG/0.1ML 00:00: May be - nasal 00 repeated Externa Liquid if needed l Baclofen 10 2022-0 Yes 10mg [id number] Take 1 [place] MG oral 1-11 [id number] tablet (10 [facility]bold Tablet 00:00: 3D mg total) - 00 by mouth 3 Externa times l daily as needed for muscle spasms or pain Naloxone 2022-0 Yes 4mg 0.1 mL (4 Wanda ey (Narcan) 4 1-11 mg total) Seyb old MG/0.1ML 00:00: by nasal - nasal 00 route as Externa Liquid needed l Naloxone 2022-0 Yes Use as [place] (Narcan) 4 -11 directed, Seyb old MG/0.1ML 00:00: June be - nasal 00 repeated Externa Liquid if needed l Naloxone 2022-0 Yes 4mg 0.1 mL (4 Wanda ey (Narcan) 4 1-11 mg total) Seyb old MG/0.1ML 00:00: by nasal - nasal 00 route as Externa Liquid needed l Naloxone 2022-0 Yes Use as [place] (Narcan) 4 -11 directed, Seyb old MG/0.1ML 00:00: June be - nasal 00 repeated Externa Liquid if needed l Naloxone 2022-0 Yes 4mg 0.1 mL (4 [place]anda ey (Narcan) 4 1-11 mg total) Seyb old MG/0.1ML 00:00: by nasal - nasal 00 route as Externa Liquid needed l Naloxone 2022-0 Yes Use as [place] (Narcan) 4 11 directed, Seyb old MG/0.1ML 00:00: June be - nasal 00 repeated Externa Liquid if needed l Naloxone 2022-0 2023- No 2mg Inject 2 [place]anda ey HCl 02-18 01-11 mg as Seybold (NARCAN) 2 00:00: 00:00 directed - MG/2ML 00 :00 once for 1 Externa injection dose l Solution Prefilled Syringe Moxifloxaci 2022-0 Yes [id number] INSTILL 1 [place] n HCl 0.5 % 1-05 9100 DROP IN Seybo ld ophthalmic 00:00: AFFECTED - Solution 00 EYE (S) 3 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 Fluconazole 2022-0 Yes [id number] TAKE ONE [place] 150 MG oral 1-05 TABLET BY Sey bold Tablet 00:00: MOUTH IN A - 00 SINGLE Externa DOSE l Fluconazole 2022-0 Yes [id number] TAKE ONE [place] 150 MG oral 1-05 TABLET BY Sey bold Tablet 00:00: MOUTH IN A - 00 SINGLE Externa DOSE l Fluconazole 2022-0 Yes [id number] TAKE ONE [place] 150 MG oral 1-05 TABLET BY Sey bold Tablet 00:00: MOUTH IN A - SINGLE Externa DOSE l Fluconazole 2022-0 Yes [id number] TAKE ONE [place] 150 MG oral 1-05 TABLET BY Sey bold Tablet 00:00: MOUTH IN A - SINGLE Externa DOSE l Collagenase 2022-0 Yes [id number] APPLY TO [place] (Santyl) 1- AFFECTED Seybold 250 UNIT/GM 00:00: AREA DAILY - apply 00 Externa externally l Ointment Collagenase 2022-0 Yes [id number] APPLY TO [place] (Santyl) 1 AFFECTED [facility] 250 UNIT/GM 00:00: AREA DAILY - apply 00 Externa externally l Ointment Collagenase 2022-0 Yes [id number] APPLY TO [place] (Santyl) 02-10 AFFECTED Sey[facility] 250 UNIT/GM 00:00: AREA DAILY - apply 00 Externa externally l Ointment Collagenase 2022-0 Yes [id number] APPLY TO [place] (Santyl) 1-03 AFFECTED [facility] 250 UNIT/GM 00:00: AREA DAILY - apply 00 Externa externally l Ointment Multiple 2021-02 Yes [id number] 1{tbl} Take 1 [place] Vitamins-Ir 2-14 tablet by Leti bold on 00:00: mouth - (Multivitam 00 daily Externa in Plus l Iron Adult) oral Tablet Multiple 2021-02 Yes [id number] 1{tbl} Take 1 [place] Vitamins-Ir 2-14 tablet by Leti bold on 00:00: mouth - (Multivitam 00 daily Externa in Plus l Iron Adult) oral Tablet Multiple 2021-02 Yes [id number] 1{tbl} Take 1 [place] Vitamins-Ir 2-14 tablet by Leti bold on 00:00: mouth - (Multivitam 00 daily Externa in Plus l [place] Adult) oral Tablet Multiple 2021-02 Yes [id number] 1{tbl} Take 1 [place] Vitamins-Ir 2-14 tablet by Leti bold on 00:00: mouth - (Multivitam 00 daily Externa in Plus l [place] Adult) oral Tablet Carvedilol 2021-02 Yes [id number] 12.5mg Take 1 [place] 12.5 MG 2-12 tablet Sey[facility] oral Tablet 00:00: (12.5 mg - 00 total) by Externa mouth in l the morning and 1 tablet (12.5 mg total) in the evening. Take with meals. Carvedilol 2021-02 Yes [id number] 12.5mg Take 1 [place] 12.5 MG 2-12 tablet [facility] oral Tablet 00:00: (12.5 mg - 00 total) by Externa mouth in l the morning and 1 tablet (12.5 mg total) in the evening. Take with meals. Carvedilol 2021-02 Yes [id number] 12.5mg Take 1 [place] 12.5 MG 2-12 tablet [facility] oral Tablet 00:00: (12.5 mg - 00 total) by Externa mouth in l the morning and 1 tablet (12.5 mg total) in the evening. Take with meals. HYDROcodone 2021-02 Yes [id number] Take by [place] -Acetaminop 03-16 mouth Seybold hen 10-325 13:51: - MG oral 43 Externa Tablet l prednisoLON 2021-[id number] ONE [place] E Acetate 1 03-16 (1) DROP Seyb old % 00:00: INTO LEFT - ophthalmic 00 EYE FOUR Exter na Suspension TIMES l DAILY. Moxifloxaci 2021-02 Yes [id number] 1[drp] Apply 1 [place] n HCl 0.5 % 03-16 drop to Seybo ld ophthalmic 00:00: eye 3 - Solution 00 times Externa daily l prednisoLON 2021-[id number] ONE [place] E Acetate 1 03-16 (1) DROP Seyb old % 00:00: INTO LEFT - ophthalmic 00 EYE FOUR Exter na Suspension TIMES l DAILY. prednisoLON 2021-[id number] ONE [place] E Acetate 1 03-16 (1) DROP Seyb old % 00:00: INTO LEFT - ophthalmic 00 EYE FOUR Exter na Suspension TIMES l DAILY. prednisoLON 2021-[id number] ONE [place] E Acetate 1 03-16 (1) DROP Seyb old % 00:00: INTO LEFT - ophthalmic 00 EYE FOUR Exter na Suspension TIMES l DAILY. prednisoLON 2021-[id number] ONE [place] E Acetate 1 03-16 (1) DROP Seyb old % 00:00: INTO LEFT - ophthalmic 00 EYE FOUR Exter na Suspension TIMES l DAILY. Fluconazole 2021-02 Yes [id number] TAKE 1 [place] 150 MG oral 2-05 TABLET BY Sey bold Tablet 00:00: MOUTH A - 00 SINGLE Externa DOSE l Doxepin HCl 2021-02 Yes [id number] TAKE 1 [place] 75 MG oral 2-05 CAPSULE Seybol d Capsule 00:00: (75 MG) BY - 00 MOUTH Externa DAILY AT l BEDTIME Fluoxetine 2021-02 Yes [id number] 40mg Take 1 K elsey HCl 40 MG 2-05 capsule [facility] oral 00:00: (40 mg - Capsule 00 total) by Externa mouth l daily Doxepin HCl 2021-02 Yes [id number] TAKE 1 [place] 75 MG oral 2-05 CAPSULE Seybol d Capsule 00:00: (75 MG) BY - 00 MOUTH Externa DAILY AT l BEDTIME Fluoxetine 2021-02 Yes [id number] 40mg Take 1 K elsey HCl 40 MG 2-05 capsule [facility] oral 00:00: (40 mg - Capsule 00 total) by Externa mouth l daily Doxepin HCl 2021-02 Yes [id number] TAKE 1 [place] 75 MG oral 2-05 CAPSULE Seybol d Capsule 00:00: (75 MG) BY - 00 MOUTH Externa DAILY AT l BEDTIME Fluoxetine 2021-02 Yes [id number] 40mg Take 1 K elsey HCl 40 MG 2-05 capsule Seybold oral 00:00: (40 mg - Capsule 00 total) by Externa mouth l daily Doxepin HCl 2021-02 Yes [id number] TAKE 1 [place] 75 MG oral 2-05 CAPSULE Seybol d Capsule 00:00: (75 MG) BY - 00 MOUTH Externa DAILY AT l BEDTIME Fluoxetine 2021-02 Yes [id number] 40mg Take 1 K elsey HCl 40 [...] Tablet 00 Externa Delayed l Response HYDROcodone 2021-02- No 1{tbl} Take 1 K elsey -Acetaminop 1-28 11-28 tablet by Se ybold hen 7.5-325 11:57: 00:00 mouth as - MG oral 37 :00 needed Externa Tablet l HYDROcodone 2021-02 Yes [id number] Take by [place] -Acetaminop 1-28 mouth Seybold hen 10-325 10:50: - MG oral 57 Externa Tablet l Carvedilol 2021-02 Yes [id number] 12.5mg Take 2 [place] 6.25 MG 1-28 tablets [facility] oral Tablet 00:00: (12.5 mg - 00 total) by Externa mouth in l the morning and 2 tablets (12.5 mg total) in the evening. Take with meals. Gabapentin 2021-02 Yes [id number] 800mg Q.[id number] Take 1 [place] 800 MG oral 1-28 [id number] tablet [facility] Tablet 00:00: 3D (800 mg - 00 total) by Externa mouth 3 l times daily as needed (nerve pain) Carvedilol 2021-02 Yes [id number] 12.5mg Take 2 [place] 6.25 MG 1-28 tablets [facility] oral Tablet 00:00: (12.5 mg - 00 total) by Externa mouth in l the morning and 2 tablets (12.5 mg total) in the evening. Take with meals. Gabapentin 2021-02 Yes [id number] 800mg Q.[id number] Take 1 [place] 800 MG oral 1-28 [id number] tablet [facility] Tablet 00:00: 3D (800 mg - 00 total) by Externa mouth 3 l times daily as needed (nerve pain) Gabapentin 2021-02 Yes [id number] 800mg Q.[id number] Take 1 [place] 800 MG oral 1-28 [id number] tablet Seybold Tablet 00:00: 3D (800 mg - 00 total) by Externa mouth 3 l times daily as needed (nerve pain) Gabapentin 2021-02 Yes [id number] 800mg Q.[id number] Take 1 [place] 800 MG oral 1-28 [id number] tablet [facility] Tablet 00:00: 3D (800 mg - 00 total) by Externa mouth 3 l times daily as needed (nerve pain) Gabapentin 2021-02 Yes [id number] 800mg Q.[id number] Take 1 [place] 800 MG oral 1-28 [id number] tablet Sey[facility] Tablet 00:00: 3D (800 mg - 00 total) by Externa mouth 3 l times daily as needed (nerve pain) Fluconazole 2021-02 Yes [id number] TAKE 1 [place] 150 MG oral 1-25 TABLET BY Sey bold Tablet 00:00: MOUTH A - 00 SINGLE Externa DOSE l PREDNISOLON 2021-[id number] ONE [facility] E ACETATE 1 0-06 [id number] (1) DROP it y of % 00:00: INTO LEFT [place] ophthalmic 00 EYE FOUR Medic al suspension TIMES Branch drops DAILY. PREDNISOLON 2021-[id number] ONE [facility] E ACETATE 1 0-06 [id number] (1) DROP it y of % 00:00: INTO LEFT [place] ophthalmic 00 EYE FOUR Medic al suspension TIMES Branch drops DAILY. PREDNISOLON 2021-[id number] ONE [facility] E ACETATE 1 0-06 [id number] (1) DROP it y of % 00:00: INTO LEFT [place] ophthalmic 00 EYE FOUR Medic al suspension TIMES Branch drops DAILY. PREDNISOLON 2021-[id number] ONE [facility] E ACETATE 1 0-06 [id number] (1) DROP it y of % 00:00: INTO LEFT [place] ophthalmic 00 EYE FOUR Medic al suspension TIMES Branch drops DAILY. PREDNISOLON 2021-[id number] ONE [facility] E ACETATE 1 0-06 [id number] (1) DROP it y of % 00:00: INTO LEFT [place] ophthalmic 00 EYE FOUR Medic al suspension TIMES Branch drops DAILY. PREDNISOLON 2021-[id number] ONE [facility] E ACETATE 1 0- [id number] (1) DROP it y of % 00:00: INTO LEFT [place] ophthalmic 00 EYE FOUR Medic al suspension TIMES Branch drops DAILY. PREDNISOLON 2021-[id number] ONE [facility] E ACETATE 1 0- [id number] (1) DROP it y of % 00:00: INTO LEFT [place] ophthalmic 00 EYE FOUR Medic al suspension TIMES Branch drops DAILY. PREDNISOLON Yes [id number] PLACE ONE [facility] E ACETATE 1 9 [id number] (1) DROP it y of % 00:00: INTO LEFT [place] ophthalmic 00 EYE FOUR Medic al suspension TIMES Branch drops DAILY. PREDNISOLON 2021- No [id number] PLACE ONE [facility] E ACETATE 1 -11-13 [id number] (1) DROP i ty of % 00:00: 00:00 INTO LEFT [place] ophthalmic 00 :00 EYE FOUR Medic al suspension TIMES Branch drops DAILY. MOXIFLOXACI Yes [id number] INSTILL [facility] N 0.5 % 09-3002 ONE (1) ity of ophthalmic 00:00: DROP IN [place] drops 00 LEFT EYE Medical FOUR TIMES Branch DAILY. MOXIFLOXACI Yes [id number] INSTILL [facility] N 0.5 % 09-30 9102 ONE (1) ity of ophthalmic 00:00: DROP IN [place] drops 00 LEFT EYE Medical FOUR TIMES Branch DAILY. MOXIFLOXACI 0 Yes [id number] INSTILL [facility] N 0.5 % 09-3002 ONE (1) ity of ophthalmic 00:00: DROP IN [place] drops 00 LEFT EYE Medical FOUR TIMES Branch DAILY. MOXIFLOXACI 0 Yes [id number] INSTILL [facility] N 0.5 % 09-3002 ONE (1) ity of ophthalmic 00:00: DROP IN [place] drops 00 LEFT EYE Medical FOUR TIMES Branch DAILY. MOXIFLOXACI 0 Yes [id number] INSTILL [facility] N 0.5 % 09-3002 ONE (1) ity of ophthalmic 00:00: DROP IN [place] drops 00 LEFT EYE Medical FOUR TIMES Branch DAILY. MOXIFLOXACI Yes [id number] INSTILL [facility] N 0.5 % 09-30 ONE (1) ity of ophthalmic 00:00: DROP IN [place] drops 00 LEFT EYE Medical FOUR TIMES Branch DAILY. MOXIFLOXACI Yes [id number] INSTILL [facility] N 0.5 % 09-30 ONE (1) ity of ophthalmic 00:00: DROP IN [place] drops 00 LEFT EYE Medical FOUR TIMES Branch DAILY. MOXIFLOXACI Yes [id number] INSTILL [facility] N 0.5 % 09-30 ONE (1) ity of ophthalmic 00:00: DROP IN [place] drops 00 LEFT EYE Medical FOUR TIMES Branch DAILY. MOXIFLOXACI Yes [id number] INSTILL [facility] N 0.5 % 09-30 ONE (1) ity of ophthalmic 00:00: DROP IN [place] drops 00 LEFT EYE Medical FOUR TIMES Branch DAILY. Carvedilol 2021- No TAKE ONE [place] 6.25 MG 09-30 (1) Seybold oral Tablet 00:00: 00:00 TABLET(S) - 00 :00 BY MOUTH Externa TWICE A l DAY (EVERY MORNING AND EVENING). Doxepin HCl Yes [id number] TAKE 1 [place] 75 MG oral 8-10 CAPSULE Seybol d Capsule 00:00: (75 MG) BY - 00 MOUTH Externa DAILY AT l BEDTIME Fluoxetine Yes [id number] 40mg Take 1 K elsey HCl 40 MG 8-10 capsule Sey[facility] oral 00:00: (40 mg - Capsule 00 total) by Externa mouth l daily prednisoLON Yes PLACE ONE [facility] else[facility] E Acetate 1 8-10 (1) DROP Seyb old % 00:00: INTO LEFT - ophthalmic 00 EYE FOUR Exter na Suspension TIMES l DAILY. prednisoLON Yes [id number] 1[drp] Place 1 [facility] E acetate 8-10 [id number] Drop in ity o f (PRED 00:00: left eye 4 [place] FORTE) 1 % 00 (four) Medical ophthalmic times Branch suspension daily. drops prednisoLON 0 2021- No PLACE ONE [place] E Acetate 1 8-10 12-06 (1) DROP Sey bold % 00:00: 00:00 INTO LEFT - ophthalmic 00 :00 EYE FOUR Exter na Suspension TIMES l DAILY. prednisoLON 2021-2021- No [id number] 1[drp] Place 1 [facility] E acetate 09-17 [id number] Drop in ity of (PRED 00:00: 00:00 left eye 4 [place] FORTE) 1 % 00 :00 (four) Medical ophthalmic times Branch suspension daily. drops ketorolac 2021-0 Yes [id number] 1[drp] Place 1 [facility] 0.5 % 6-07 9102 Drop in ity of ophthalmic 00:00: left eye 4 [place] solution 00 (four) Medical times Branch daily. ketorolac 2021-0 Yes [id number] 1[drp] Place 1 [facility] 0.5 % 6-07 9102 Drop in ity of ophthalmic 00:00: left eye 4 [place] solution 00 (four) Medical times Branch daily. ketorolac 2021-0 Yes [id number] 1[drp] Place 1 [facility] 0.5 % 6-07 9102 Drop in ity of ophthalmic 00:00: left eye 4 [place] solution 00 (four) Medical times Branch daily. ketorolac 2021-0 Yes [id number] 1[drp] Place 1 [facility] 0.5 % 6-07 9102 Drop in ity of ophthalmic 00:00: left eye 4 [place] solution 00 (four) Medical times Branch daily. ketorolac 2021-0 Yes [id number] 1[drp] Place 1 [facility] 0.5 % 6-07 9102 Drop in ity of ophthalmic 00:00: left eye 4 [place] solution 00 (four) Medical times Branch daily. ketorolac 2021-0 Yes [id number] 1[drp] Place 1 [facility] 0.5 % 6-07 9102 Drop in ity of ophthalmic 00:00: left eye 4 [place] solution 00 (four) Medical times Branch daily. ketorolac 2021-0 Yes [id number] 1[drp] Place 1 [facility] 0.5 % 6-07 9102 Drop in ity of ophthalmic 00:00: left eye 4 [place] solution 00 (four) Medical times Branch daily. ketorolac 2021-0 Yes [id number] 1[drp] Place 1 [facility] 0.5 % 6-07 9102 Drop in ity of ophthalmic 00:00: left eye 4 [place] solution 00 (four) Medical times Branch daily. ketorolac 0 Yes [id number] 1[drp] Place 1 [facility] 0.5 % 6-07 [...] EVERY 6 Externa HOURS l Tizanidine 2021-0 2022- No TAKE 3 Wanda ey HCl 2 MG 6-04 01-11 CAPSULES Seybol d oral 00:00: 00:00 BY MOUTH - Capsule 00 :00 EVERY 6 Externa HOURS l hydroCHLORO 0 Yes [id number] 25mg Take 2 [facility] thiazide 5-29 9102 capsules ity of 12.5 mg 00:00: by mouth [place] capsule 00 daily. Medical Branch hydroCHLORO 0 Yes [id number] 25mg Take 2 [facility] thiazide 5-29 9102 capsules ity of 12.5 mg 00:00: by mouth [place] capsule 00 daily. Medical Branch hydroCHLORO 0 Yes [id number] 25mg Take 2 [facility] thiazide 5-29 9102 capsules ity of 12.5 mg 00:00: by mouth [place] capsule 00 daily. Medical Branch hydroCHLORO 0 Yes [id number] 25mg Take 2 [facility] thiazide 5-29 9102 capsules ity of 12.5 mg 00:00: by mouth [place] capsule 00 daily. Medical Branch hydroCHLORO 2021-0 Yes [id number] 25mg Take 2 [facility] thiazide 5-29 9102 capsules ity of 12.5 mg 00:00: by mouth [place] capsule 00 daily. Medical Branch hydroCHLORO 0 Yes [id number] 25mg Take 2 [facility] thiazide 5-29 9102 capsules ity of 12.5 mg 00:00: by mouth [place] capsule 00 daily. Medical Branch hydroCHLORO 2021-0 Yes [id number] 25mg Take 2 [facility] thiazide 5-29 9102 capsules ity of 12.5 mg 00:00: by mouth [place] capsule 00 daily. Medical Branch hydroCHLORO Yes [id number] 25mg Take 2 [facility] thiazide 5-29 9102 capsules ity of 12.5 mg 00:00: by mouth [place] capsule 00 daily. Medical Branch hydroCHLORO Yes [id number] 25mg Take 2 [facility] thiazide 5-29 9102 capsules ity of 12.5 mg 00:00: by mouth [place] capsule 00 daily. Medical Branch docusate Yes 100mg Take 100 [...] by mouth ity of capsule 17:49: daily. [place] [address] Medical Branch naloxegoL Yes 25mg Take 25 mg Un luz marina (MOVANTIK) 5-28 by mouth ity o f 25 mg Tab 17:49: daily. [place] [address] Medical Branch ferrous Yes 325mg Take 325 [...] by mouth ity of tablet 17:49: daily. [place] [address] Medical Branch docusate Yes 100mg Take 100 [...] by mouth ity of capsule 17:49: daily. [place] [address] Medical Branch naloxegoL Yes 25mg Take 25 mg Un luz [place] (MOVANTIK) 5-28 by mouth ity o f 25 mg Tab 17:49: daily. [place] [address] Medical Branch ferrous Yes 325mg Take 325 [...] by mouth ity of tablet 17:49: daily. [place] [address] Medical Branch docusate Yes 100mg Take 100 [...] by mouth ity of capsule 17:49: daily. [place] [address] Medical Branch naloxegoL Yes 25mg Take 25 mg Un luz [place] (MOVANTIK) 5-28 by mouth ity o f 25 mg Tab 17:49: daily. [place] [address] Medical Branch ferrous Yes 325mg Take 325 [...] by mouth ity of tablet 17:49: daily. [place] [address] Medical Branch docusate Yes 100mg Take 100 [...] by mouth ity of capsule 17:49: daily. [place] [address] Medical Branch naloxegoL Yes 25mg Take 25 mg Un luz [place] (MOVANTIK) 5-28 by mouth ity o f 25 mg Tab 17:49: daily. [place] [address] Medical Branch ferrous Yes 325mg Take 325 [...] by mouth ity of tablet 17:49: daily. [place] [address] Medical Branch docusate 0 Yes 100mg Take [...] by mouth ity of capsule 17:49: daily. [place] [address] Medical Branch naloxegoL 0 Yes 25mg Take 25 mg Un luz [place] (MOVANTIK) 5-28 by mouth ity o f 25 mg Tab 17:49: daily. [place] [address] Medical Branch ferrous Yes 325mg Take 325 [...] by mouth ity of tablet 17:49: daily. [place] [address] Medical Branch docusate Yes 100mg Take 100 [...] mouth ity of capsule 17:49: every 6 [place] [address] (six) Medical hours. Branch FLUoxetine 0 Yes 40mg Take 40 mg U nivers 40 mg 5-28 by mouth ity of capsule 17:49: daily. [place] [address] Medical Branch naloxegoL 0 Yes 25mg Take 25 mg Un luz [place] (MOVANTIK) 5-28 by mouth ity o f 25 mg Tab 17:49: daily. [place] [address] Medical Branch ferrous 0 Yes 325mg Take [...] by mouth ity of ORAL) 17:49: every [place] [address] evening. Medical Branch morphine ER 0 Yes 15mg Take 15 mg [facility] 15 mg 12 hr 5-28 by mouth ity of tablet 17:49: daily. [place] [address] Medical Branch docusate 0 Yes 100mg Take [...] mouth ity of capsule 17:49: every 6 [place] [address] (six) Medical hours. Branch FLUoxetine 0 Yes 40mg Take 40 mg U nivers 40 mg 5-28 by mouth ity of capsule 17:49: daily. [place] [address] Medical Branch naloxegoL Yes 25mg Take 25 mg Un luz [place] (MOVANTIK) 5-28 by mouth ity o f 25 mg Tab 17:49: daily. [place] [address] Medical Branch ferrous 0 Yes 325mg Take [...] by mouth ity of ORAL) 17:49: every [place] 34 evening. Medical Branch morphine ER Yes 15mg Take 15 mg [facility] 15 mg 12 hr 5-28 by mouth ity of tablet 17:49: daily. [place] [address] Medical Branch docusate Yes 100mg Take 100 [...] by mouth ity of capsule 17:49: daily. [place] [address] Medical Branch naloxegoL Yes 25mg Take 25 mg Un l[place] (MOVANTIK) 5-28 by mouth ity o f 25 mg Tab 17:49: daily. [place] [address] Medical Branch ferrous 2022-0 Yes 325mg Take 325 Unive rs sulfate [...] by mouth ity of tablet 17:49: daily. [place] [address] Medical Branch docusate Yes 100mg Take 100 [...] mouth ity of capsule 17:49: every 6 [place] 34 (six) Medical hours. Branch FLUoxetine Yes 40mg Take 40 mg U nivers 40 mg 5-28 by mouth ity of capsule 17:49: daily. [place] [address] Medical Branch naloxegoL Yes 25mg Take 25 mg Un luz [place] (MOVANTIK) 5-28 by mouth ity o f 25 mg Tab 17:49: daily. [place] [address] Medical Branch ferrous Yes 325mg Take 325 [...] by mouth ity of ORAL) 17:49: every [place] 34 evening. Medical Branch morphine ER Yes 15mg Take 15 mg [facility] 15 mg 12 hr 5-28 by mouth ity of tablet 17:49: daily. [place] 34 Medical Branch natamycin 5 Yes [id number] 1[drp] Place 1 [facility] % 5-28 9102 Drop in ity of ophthalmic 00:00: left eye Sukhjinder as suspension 00 every 2 Medica l drops (two) Branch hours. erythromyci Yes [id number] .5[in_u Place 0.5 [facility] n 5 mg/gram 5-28 9102 s] Inches in ity of (0.5 %) 00:00: left eye [place] ophthalmic 00 at Medical ointment bedtime. Branch hydrALAZINE Yes [id number] 5mg Take 0.5 [facility] 10 mg 5-28 9102 tablets by ity of tablet 00:00: mouth 2 [place] 00 (two) Medical times Branch daily. natamycin 5 Yes [id number] 1[drp] Place 1 [facility] % 5-28 9102 Drop in ity of ophthalmic 00:00: left eye Sukhjinder as suspension 00 every 2 Medica l drops (two) Branch hours. erythromyci Yes [id number] .5[in_u Place 0.5 [facility] n 5 mg/gram 5-28 9102 s] Inches in ity of (0.5 %) 00:00: left eye [place] ophthalmic 00 at Medical ointment bedtime. Branch hydrALAZINE Yes [id number] 5mg Take 0.5 [facility] 10 mg 5-28 9102 tablets by ity of tablet 00:00: mouth 2 [place] 00 (two) Medical times Branch daily. natamycin 5 Yes [id number] 1[drp] Place 1 [facility] % 5-28 9102 Drop in ity of ophthalmic 00:00: left eye Sukhjinder as suspension 00 every 2 Medica l drops (two) Branch hours. erythromyci Yes [id number] .5[in_u Place 0.5 [facility] n 5 mg/gram 5-28 9102 s] Inches in ity of (0.5 %) 00:00: left eye [place] ophthalmic 00 at Medical ointment bedtime. Branch hydrALAZINE Yes [id number] 5mg Take 0.5 [facility] 10 mg 5-28 9102 tablets by ity of tablet 00:00: mouth 2 00 (two) Medical times Branch daily. natamycin 5 2021-0 Yes [id number] 1[drp] Place 1 [facility] % 5-28 9102 Drop in ity of ophthalmic 00:00: left eye Sukhjinder as suspension 00 every 2 Medica l drops (two) Branch hours. erythromyci Yes [id number] .5[in_u Place 0.5 [facility] n 5 mg/gram 5-28 9102 s] Inches in ity of (0.5 %) 00:00: left eye [place] ophthalmic 00 at Medical ointment bedtime. Branch hydrALAZINE Yes [id number] 5mg Take 0.5 [facility] 10 mg 5-28 9102 tablets by ity of tablet 00:00: mouth 2 (two) Medical times Branch daily. natamycin 5 0 Yes [id number] 1[drp] Place 1 [facility] % 5-28 9102 Drop in ity of ophthalmic 00:00: left eye Sukhjinder as suspension 00 every 2 Medica l drops (two) Branch hours. erythromyci Yes [id number] .5[in_u Place 0.5 [facility] n 5 mg/gram 5-28 9102 s] Inches in ity of (0.5 %) 00:00: left eye [place] ophthalmic 00 at Medical ointment bedtime. Branch hydrALAZINE Yes [id number] 5mg Take 0.5 [facility] 10 mg 5-28 9102 tablets by ity of tablet 00:00: mouth 2 00 (two) Medical times Branch daily. natamycin 5 2021-0 Yes [id number] 1[drp] Place 1 [facility] % 5-28 9102 Drop in ity of ophthalmic 00:00: left eye Sukhjinder as suspension 00 every 2 Medica l drops (two) Branch hours. erythromyci Yes [id number] .5[in_u Place 0.5 [facility] n 5 mg/gram 5-28 9102 s] Inches in ity of (0.5 %) 00:00: left eye [place] ophthalmic 00 at Medical ointment bedtime. Branch hydrALAZINE Yes [id number] 5mg Take 0.5 [facility] 10 mg 5-28 9102 tablets by ity of tablet 00:00: mouth 2 [place] 00 (two) Medical times Branch daily. natamycin 5 2021-0 Yes [id number] 1[drp] Place 1 [facility] % 5-28 9102 Drop in ity of ophthalmic 00:00: left eye Sukhjinder as suspension 00 every 2 Medica l drops (two) Branch hours. erythromyci Yes [id number] .5[in_u Place 0.5 [facility] n 5 mg/gram 5-28 9102 s] Inches in ity of (0.5 %) 00:00: left eye [place] ophthalmic 00 at Medical ointment bedtime. Branch hydrALAZINE Yes [id number] 5mg Take 0.5 [facility] 10 mg 5-28 9102 tablets by ity of tablet 00:00: mouth 2 (two) Medical times Branch daily. natamycin 5 2021-0 Yes [id number] 1[drp] Place 1 [facility] % 5-28 9102 Drop in ity of ophthalmic 00:00: left eye Sukhjinder as suspension 00 every 2 Medica l drops (two) Branch hours. erythromyci Yes [id number] .5[in_u Place 0.5 [facility] n 5 mg/gram 5-28 9102 s] Inches in ity of (0.5 %) 00:00: left eye [place] ophthalmic 00 at Medical ointment bedtime. Branch hydrALAZINE 0 Yes [id number] 5mg Take 0.5 [facility] 10 mg 5-28 9102 tablets by ity of tablet 00:00: mouth 2 [place] 00 (two) Medical times Branch daily. natamycin 5 2021-0 Yes [id number] 1[drp] Place 1 [facility] % 5-28 9102 Drop in ity of ophthalmic 00:00: left eye Sukhjinder as suspension 00 every 2 Medica l drops (two) Branch hours. erythromyci Yes [id number] .5[in_u Place 0.5 Univers n 5 mg/gram 5-28 9102 s] Inches in ity of (0.5 %) 00:00: left eye [place] [facility] 00 at Medical ointment bedtime. Branch hydrALAZINE Yes [id number] 5mg Take 0.5 [facility] 10 mg 5-28 9102 tablets by ity of tablet 00:00: mouth 2 [place] 00 (two) Medical times Branch daily. HYDROcodone Yes [id number] Take by [place] -Acetaminop 5-18 mouth Seybold hen 10-325 11:11: MG oral 20 Tablet Metoprolol Yes [id number] 50mg TAKE 1 K elsey Tartrate 50 5-09 TABLET (50 Se ybold MG oral 00:00: MG TOTAL) Tablet 00 BY MOUTH IN THE MORNING AND 1 TABLET (50 MG TOTAL) IN THE EVENING. hydroCHLORO Yes [id number] 25mg TAKE 1 [place] thiazide 25 5-09 TABLET (25 Se ybold MG oral 00:00: MG TOTAL) Tablet 00 BY MOUTH DAILY. Metoprolol Yes [id number] 50mg TAKE 1 K elsey Tartrate 50 5-09 TABLET (50 Se ybold MG oral 00:00: MG TOTAL) Tablet 00 BY MOUTH IN THE MORNING AND 1 TABLET (50 MG TOTAL) IN THE EVENING. hydroCHLORO 0 Yes [id number] 25mg TAKE 1 [place] thiazide 25 5-09 TABLET (25 Se ybold MG oral 00:00: MG TOTAL) Tablet 00 BY MOUTH DAILY. Nystatin 0 Yes [id number] APPLY 1 Ke lsey [id number] 4-28 APPLICATIO Seybold UNIT/GM 00:00: N apply 00 TOPICALLY externally 3 TIMES Powder DAILY. Nystatin 0 Yes [id number] APPLY 1 Ke lsey [id number] 4-28 APPLICATIO Seybold UNIT/GM 00:00: N apply 00 TOPICALLY externally 3 TIMES Powder DAILY. HYDROcodone 2021-0 Yes [id number] Take by [place] -Acetaminop 4-15 mouth Seybold hen 10-325 11:36: MG oral 16 Tablet HYDROcodone Yes [id number] Take by [place] -Acetaminop 4-15 mouth Seybold [...] meal of the day Methylpredn 2021- No [id number] 40mg [place] isolone 05-16 Seybold Acetate 16:45: 16:37 (Depo-Medro 00 :00 l) 40 mg/ml - Physician Administere d (J1030) Methylpredn 2021- No [id number] 40mg 40 mg, [place] isolone 05-16 Physician Seybol d Acetate 16:45: 16:37 Administer (Depo-Medro 00 :00 ed, ONCE, l) 40 mg/ml 1 dose, On - Physician 05/16/21 Administere at 1145 d (J1030) HYDROcodone Yes [id number] Take by [place] -Acetaminop 4-08 mouth Seybold hen 10-325 10:52: MG oral 25 Tablet HYDROcodone Yes [id number] Take by [place] -Acetaminop 3-29 mouth Seybold hen 10-325 09:51: MG oral 33 Tablet hydroCHLORO Yes [id number] 25mg Take 1 [place] thiazide 25 3-29 tablet (25 Se ybold MG oral 00:00: mg total) Tablet 00 by mouth daily Nystatin Yes [id number] Apply 1 Ke lsey [id number] 3-29 applicatio Seybold UNIT/GM 00:00: n apply 00 topically externally 3 times Powder daily Ondansetron Yes [id number] 4mg Q.54015705 Take 1 [place] (Zofran 3-29 [id number] tablet (4 S eybold ODT) 4 MG 00:00: 3D mg total) oral TABLET 00 by mouth DISPERSIBLE every 8 hours as needed for nausea hydroCHLORO 2021-0 Yes [id number] 25mg Take 1 [place] thiazide 25 3-29 tablet (25 Se ybold MG oral 00:00: mg total) Tablet 00 by mouth daily Nystatin 2021-0 Yes [id number] Apply 1 Ke lsey [id number] 3-29 applicatio Seybold UNIT/GM 00:00: n apply 00 topically externally 3 times Powder daily Ondansetron 2021-0 Yes [id number] 4mg Q.[id number] Take 1 [place] (Zofran 3-29 [id number] tablet (4 S eybold ODT) 4 MG 00:00: 3D mg total) oral TABLET 00 by mouth DISPERSIBLE every 8 hours as needed for nausea hydroCHLORO 2021-0 Yes [id number] 25mg Take 1 [place] thiazide 25 3-29 tablet (25 Se ybold MG oral 00:00: mg total) Tablet 00 by mouth daily Nystatin 2021-0 Yes [id number] Apply 1 Ke lsey [id number] 3-29 applicatio Seybold UNIT/GM 00:00: n apply 00 topically externally 3 times Powder daily Ondansetron 2021-0 Yes [id number] 4mg Q.[id number] Take 1 [place] (Zofran 3-29 [id number] tablet (4 S eybold ODT) 4 MG 00:00: 3D mg total) oral TABLET 00 by mouth DISPERSIBLE every 8 hours as needed for nausea Ondansetron 2021-0 Yes [id number] 4mg Q.[id number] Take 1 [place] (Zofran 3-29 [id number] tablet (4 S eybold ODT) 4 MG 00:00: 3D mg total) oral TABLET 00 by mouth DISPERSIBLE every 8 hours as needed for nausea Ondansetron 2021-0 Yes [id number] 4mg Q.[id number] Take 1 [place] (Zofran 3-29 [id number] tablet (4 S eybold ODT) 4 MG 00:00: 3D mg total) oral TABLET 00 by mouth DISPERSIBLE every 8 hours as needed for nausea Ondansetron 2021-0 Yes [id number] 4mg Q.[id number] Take 1 [place] (Zofran 3-29 [id number] tablet (4 S eybold ODT) 4 MG 00:00: 3D mg total) - oral TABLET 00 by mouth Exte rna DISPERSIBLE every 8 l hours as needed for nausea Ondansetron 2021-0 Yes [id number] 4mg Q.[id number] Take 1 [place] (Zofran 3-29 [id number] tablet (4 S eybold ODT) 4 MG 00:00: 3D mg total) - oral TABLET 00 by mouth Exte rna DISPERSIBLE every 8 l hours as needed for nausea Ondansetron 0 Yes [id number] 4mg Q.[id number] Take 1 [place] (Zofran 3-29 [id number] tablet (4 S eybold ODT) 4 MG 00:00: 3D mg total) - oral TABLET 00 by mouth Exte rna DISPERSIBLE every 8 l hours as needed for nausea Ondansetron 0 Yes [id number] 4mg Q.[id number] Take 1 [place] (Zofran 3-29 [id number] tablet (4 S eybold ODT) 4 MG 00:00: 3D mg total) - oral TABLET 00 by mouth Exte rna DISPERSIBLE every 8 l hours as needed for nausea Ondansetron 0 Yes [id number] 4mg Q.[id number] Take 1 [place] (Zofran 3-29 [id number] tablet (4 S eybold ODT) 4 MG 00:00: 3D mg total) - oral TABLET 00 by mouth Exte rna DISPERSIBLE every 8 l hours as needed for nausea Ondansetron 0 Yes [id number] 4mg Q.[id number] Take 1 [place] (Zofran 3-29 [id number] tablet (4 S eybold ODT) 4 MG 00:00: 3D mg total) - oral TABLET 00 by mouth Exte rna DISPERSIBLE every 8 l hours as needed for nausea HYDROcodone 2021-0 Yes [id number] Take by [place] -Acetaminop 3-25 mouth Seybold [...] Tablet 00 Delayed Response Cosyntropin 2021- No [id number] .25mg [place] (CORTROSYN) -30 04-23 Seybold 0.25 mg 14:15: 14:21 00 :00 Cosyntropin 2021- No [id number] .25mg 0.25 mg, [place] (CORTROSYN) -30 04-23 intramuscu S eybold 0.25 mg 14:15: 14:21 lar, ONCE, 00 :00 1 dose, On Wed04/30/21 at 0915 Tizanidine 2021- No [id number] every 6 [place] HCl 2 MG -30 04-23 (six) Seybold oral 08:46: 00:00 hours Capsule 51 :00 HYDROcodone Yes [id number] Take by [place] -Acetaminop 3-23 mouth Seybold [...] l ) does not apply Misc Metoprolol 0 Yes [id number] 50mg Take 1 K elsey Tartrate 50 3-08 tablet (50 Se ybold MG oral 00:00: mg total) Tablet 00 by mouth in the morning and 1 tablet (50 mg total) in the evening. Docusate 0 Yes [id number] 100mg Take 100 [place] Sodium 100 3-08 mg by Seybold MG oral 00:00: mouth 2 Tablet 00 times daily Metoprolol 2021-0 Yes [id number] 50mg Take 1 K elsey Tartrate 50 3-08 tablet (50 Se ybold MG oral 00:00: mg total) Tablet 00 by mouth in the morning and 1 tablet (50 mg total) in the evening. Docusate 0 Yes [id number] 100mg Take 100 [place] Sodium 100 3-08 mg by Seybold MG oral 00:00: mouth 2 Tablet 00 times daily Metoprolol 2021-0 Yes [id number] 50mg Take 1 K elsey Tartrate 50 3-08 tablet (50 Se ybold MG oral 00:00: mg total) Tablet 00 by mouth in the morning and 1 tablet (50 mg total) in the evening. Docusate 0 Yes [id number] 100mg Take 100 [place] Sodium 100 3-08 mg by Seybold MG oral 00:00: mouth 2 Tablet 00 times daily Metoprolol 2021-0 Yes [id number] 50mg Take 1 K elsey Tartrate 50 3-08 tablet (50 Se ybold MG oral 00:00: mg total) Tablet 00 by mouth in the morning and 1 tablet (50 mg total) in the evening. Docusate 2021-0 Yes [id number] 100mg Take 100 [place] Sodium 100 3-08 mg by Seybold MG oral 00:00: mouth 2 Tablet 00 times daily Metoprolol 2021-0 Yes [id number] 50mg Take 1 K elsey Tartrate 50 3-08 tablet (50 Se ybold MG oral 00:00: mg total) Tablet 00 by mouth in the morning and 1 tablet (50 mg total) in the evening. Docusate Yes [id number] 100mg Take 100 [place] Sodium 100 3-08 mg by Seybold MG oral 00:00: mouth 2 Tablet 00 times daily Docusate Yes [id number] 100mg Take 100 [place] Sodium 100 3-08 mg by Seybold MG oral 00:00: mouth 2 Tablet 00 times daily Docusate Yes [id number] 100mg Take 100 [place] Sodium 100 3-08 mg by Seybold MG oral 00:00: mouth 2 Tablet 00 times daily Tizanidine Yes [id number] every 6 [place] HCl 2-28 (six) Seybold (Zanaflex) 08:53: hours 2 MG oral 51 Capsule HYDROcodone Yes [id number] Take by [place] -Acetaminop 2-28 mouth Seybold hen 10-325 08:53: MG oral 32 Tablet Fluoxetine 2021- No [id number] Take by [place] HCl 20 MG 2-24 02-24 mouth 2 Seybol d oral 15:04: 00:00 times Capsule 25 :00 daily Metformin 2021- No [id number] 1000mg Take 1,000 [place] HCl 1000 MG 2-23 02-23 mg by Seybol d oral Tablet 10:44: 00:00 mouth 42 :00 daily Continuous Yes [id number] Check K elsey Blood Gluc 2-23 Seybold Sensor 00:00: (Dexcom G6 00 Sensor) does not apply Misc Continuous Yes [id number] Check K elsey Blood Gluc 2-23 sugar 4 Seybol d [employer] 00:00: times (Dexcom G4 00 daily and [place] as needed Rcv/Share) does not apply Device Continuous Yes [id number] Check K elsey Blood Gluc 2-23 Seybold Sensor 00:00: (Dexcom G6 00 Sensor) does not apply Misc Continuous Yes [id number] Check K elsey Blood Gluc 2-23 sugar 4 Seybol d [employer] 00:00: times (Dexcom G4 00 daily and [place] as needed Rcv/Share) does not apply Device Continuous Yes [id number] Check K elsey Blood Gluc 2-23 Seybold Sensor 00:00: (Dexcom G6 00 Sensor) does not apply Misc Continuous 2022-0 Yes [id number] Check K elsey Blood Gluc 2-23 sugar 4 Seybol d [employer] 00:00: times (Dexcom G4 00 daily and [place] as needed Rcv/Share) does not apply Device Continuous 2022-0 Yes [id number] Check K elsey Blood Gluc 2-23 Seybold Sensor 00:00: (Dexcom G6 00 Sensor) does not apply Misc Continuous 2022-0 Yes [id number] Check K elsey Blood Gluc 2-23 sugar 4 Seybol d [employer] 00:00: times (Dexcom G4 00 daily and [place] as needed Rcv/Share) does not apply Device Continuous 2022-0 Yes [id number] Check K elsey Blood Gluc 2-23 Seybold Sensor 00:00: (Dexcom G6 00 Sensor) does not apply Misc Continuous 2022-0 Yes [id number] Check K elsey Blood Gluc 2-23 sugar 4 Seybol d [employer] 00:00: times (Dexcom G4 00 daily and [place] as needed Rcv/Share) does not apply Device Continuous 2022-0 Yes [id number] Check K elsey Blood Gluc 2-23 Seybold Sensor 00:00: (Dexcom G6 00 Sensor) does not apply Misc Continuous 2022-0 Yes [id number] Check K elsey Blood Gluc 2-23 sugar 4 Seybol d [employer] 00:00: times (Dexcom G4 00 daily and [place] as needed Rcv/Share) does not apply Device Continuous 2022-0 Yes [id number] Check K elsey Blood Gluc 2-23 Seybold Sensor 00:00: (Dexcom G6 00 Sensor) does not apply Misc Continuous 2022-0 Yes [id number] Check K elsey Blood Gluc 2-23 sugar 4 Seybol d [employer]iter 00:00: times (Dexcom G4 00 daily and [place] as needed Rcv/Share) does not apply Device Continuous 2022-0 Yes [id number] Check K elsey Blood Gluc 2-23 Seybold Sensor 00:00: (Dexcom G6 00 Sensor) does not apply Misc Continuous 2022-0 Yes [id number] Check K elsey Blood Gluc 2-23 sugar 4 Seybol d [employer] 00:00: times (Dexcom G4 00 daily and [place] as needed Rcv/Share) does not apply Device Continuous Yes [id number] Check K elsey Blood Gluc 2-23 Seybold Sensor 00:00: (Dexcom G6 00 Sensor) does not apply Misc Continuous Yes [id number] Check K elsey Blood Gluc 2-23 sugar 4 Seybol d [employer]iter 00:00: times (Dexcom G4 00 daily and [place] as needed Rcv/Share) does not apply Device Continuous Yes [id number] Check K elsey Blood Gluc 2-23 sugar 4 Seybol d [employer] Rec[employer]iter 00:00: times - (Dexcom G4 00 daily and Exte rna [place] as needed l Rcv/Share) does not apply Device Continuous Yes [id number] Check K elsey Blood Gluc 2-23 sugar 4 Seybol d [employer] Rec[employer]iter 00:00: times - (Dexcom G4 00 daily and Exte rna [place] as needed l Rcv/Share) does not apply Device Continuous Yes [id number] Check K elsey Blood Gluc 2-23 sugar 4 Seybol d [employer]iter 00:00: times - (Dexcom G4 00 daily and Exte rna [place] as needed l Rcv/Share) does not apply Device Continuous Yes [id number] Check K elsey Blood Gluc 2-23 sugar 4 Seybol d [employer] Rec[employer]iter 00:00: times - (Dexcom G4 00 daily and Exte rna [place] as needed l Rcv/Share) does not apply Device Continuous Yes [id number] Check K elsey Blood Gluc 2-23 sugar 4 Seybol d [employer] Rec[employer]iter 00:00: times - (Dexcom G4 00 daily and Exte rna [place] as needed l Rcv/Share) does not apply Device Continuous Yes [id number] Check K elsey Blood Gluc 2-23 sugar 4 Seybol d [employer] Rec[employer]iter 00:00: times - (Dexcom G4 00 daily and Exte rna [place] as needed l Rcv/Share) does not apply Device Docusate Yes [place] Sodium 100 2-22 Seybold MG oral 00:00: Capsule 00 Docusate 2021-0 Yes [place] Sodium 100 2-22 Seybold MG oral 00:00: Capsule 00 Docusate 2021-2021- No [place] Sodium 100 2-22 03-23 Seybold MG oral 00:00: 00:00 Capsule 00 :00 Lisinopril 2021-0 2- No [place]yenne 40 MG oral 04-01 Seybold Tablet 00:00: 00:00 00 :00 Tamsulosin [...] daily Tablet 00 :00 Metoprolol 2021-0 Yes [id number] TAKE 1 K elsey Tartrate 50 2-17 TABLET BY Sey bold MG oral 00:00: MOUTH 2 Tablet 00 TIMES DAILY Tizanidine 2021-0 Yes TAKE 3 Kelse y HCl 2 MG 2-17 TABLETS BY Seybo ld oral Tablet 00:00: MOUTH 00 EVERY 6 HOURS Metoprolol 2021-0 Yes [id number] TAKE 1 K elsey Tartrate 50 2-17 [...] 00:00: MOUTH 00 EVERY 6 HOURS Fluoxetine Yes 40mg Take 40 mg K elsey HCl 40 MG 2-11 by mouth Seybol d oral 00:00: daily Capsule Fluoxetine 0 Yes 40mg Take 40 mg K elsey [...] d oral 00:00: daily Capsule Doxepin HCl 0 Yes TAKE 1 Wanda [...] MOUTH DAILY AT BEDTIME Fluoxetine 2021-0 Yes [id number] Take by [place] HCl 20 MG 1-27 mouth 2 Seybold oral 08:05: times Capsule 51 daily Metformin 2021-0 Yes [id number] 1000mg Take 1,000 [place] HCl 1000 MG 1-27 mg by Seybold oral Tablet 08:05: mouth 32 daily HYDROcodone 2021-0 Yes [id number] Take by [place] -Acetaminop 1-27 mouth Seybold hen 10-325 08:05: MG oral 25 Tablet Tizanidine 2021-0 Yes [id number] every 6 [place] HCl 1-27 (six) Seybold (Zanaflex) 08:05: hours 2 MG oral 25 Capsule HYDROcodone 2021-0 Yes [id number] Take by [place] -Acetaminop 1-27 mouth Seybold hen 10-325 08:05: MG oral 25 Tablet Tizanidine 2021-0 Yes [id number] every 6 [place] HCl 1-27 (six) Seybold (Zanaflex) 08:05: hours 2 MG oral 25 Capsule Docusate 2021-0 Yes [id number] 100mg Take 100 [place] Sodium 100 1-26 mg by Seybold MG oral 00:00: mouth 2 Tablet 00 times daily Sennosides 2021-0 Yes [id number] 1{capsu Take 1 [place] (Senna) 8.6 1-26 le} capsule by Se ybold MG oral 00:00: mouth Capsule 00 daily Docusate Yes [id number] 100mg Take 100 [place] Sodium 100 1-26 mg by Seybold MG oral 00:00: mouth 2 Tablet 00 times daily Sennosides Yes [id number] 1{capsu Take 1 [place] (Senna) 8.6 1-26 le} capsule by Se ybold MG oral 00:00: mouth Capsule 00 daily Sennosides Yes [id number] 1{capsu Take 1 [place] (Senna) 8.6 1-26 le} capsule by Se ybold MG oral 00:00: mouth Capsule 00 daily Sennosides 0 Yes [id number] 1{capsu Take 1 [place] (Senna) 8.6 1-26 le} capsule by Se ybold MG oral 00:00: mouth Capsule 00 daily Sennosides Yes [id number] 1{capsu Take 1 [place] (Senna) 8.6 1-26 le} capsule by Se ybold MG oral 00:00: mouth Capsule 00 daily Sennosides Yes [id number] 1{capsu Take 1 [place] (Senna) 8.6 1-26 le} capsule by Se ybold MG oral 00:00: mouth Capsule 00 daily Sennosides Yes [id number] 1{capsu Take 1 [place] (Senna) 8.6 1-26 le} capsule by Se ybold MG oral 00:00: mouth Capsule 00 daily Sennosides 0 Yes [id number] 1{capsu Take 1 [place] (Senna) 8.6 1-26 le} capsule by Se ybold MG oral 00:00: mouth Capsule 00 daily Metoprolol Yes [id number] 50mg Take 1 K elsey Tartrate 50 1-26 tablet (50 Se ybold MG oral 00:00: mg total) Tablet 00 by mouth 2 times daily Sennosides Yes [id number] 1{capsu Take 1 [place] (Senna) 8.6 1-26 le} capsule by Se ybold MG oral 00:00: mouth Capsule 00 daily Docusate Yes [id number] 100mg Take 100 [place] Sodium 100 1-26 mg by Seybold MG oral 00:00: mouth 2 Tablet 00 times daily Sennosides 2021-0 Yes [id number] 1{capsu Take 1 [place] (Senna) 8.6 1-26 le} capsule by Se ybold MG oral 00:00: mouth Capsule 00 daily Sennosides 2021-0 Yes [id number] 1{capsu Take 1 [place] (Senna) 8.6 1-26 le} capsule by Se ybold MG oral 00:00: mouth - Capsule 00 daily Externa l Sennosides 2021-0 Yes [id number] 1{capsu Take 1 [place] (Senna) 8.6 1-26 le} capsule by Se ybold MG oral 00:00: mouth - Capsule 00 daily Externa l Sennosides 2021-0 Yes [id number] 1{capsu Take 1 [place] (Senna) 8.6 1-26 le} capsule by Se ybold MG oral 00:00: mouth - Capsule 00 daily Externa l Sennosides 2021-0 Yes [id number] 1{capsu Take 1 [place] (Senna) 8.6 1-26 le} capsule by Se ybold MG oral 00:00: mouth - Capsule 00 daily Externa l Sennosides 2021-0 Yes [id number] 1{capsu Take 1 [place] (Senna) 8.6 1-26 le} capsule by Se ybold MG oral 00:00: mouth - Capsule 00 daily Externa l Sennosides 2021-0 Yes [id number] 1{capsu Take 1 [place] (Senna) 8.6 1-26 le} capsule by Se ybold MG oral 00:00: mouth - Capsule 00 daily Externa l Gabapentin 2022-0 Yes [id number] Ke lsey 800 MG oral 1-24 Seybold Tablet 00:00: 00 Gabapentin 2022-0 Yes [id number] Ke lsey 800 MG oral 1-24 Seybold Tablet 00:00: 00 Gabapentin 2022-0 Yes [id number] Ke lsey 800 MG oral 1-24 Seybold Tablet 00:00: 00 Gabapentin 2022-0 Yes [id number] Ke lsey 800 MG oral 1-24 Seybold Tablet 00:00: 00 Gabapentin 2022-0 Yes [id number] Ke lsey 800 MG oral 1-24 Seybold Tablet 00:00: 00 Gabapentin 2022-0 Yes [id number] Ke lsey 800 MG oral 1-24 Seybold Tablet 00:00: 00 Gabapentin 2022-0 Yes [id number] Ke lsey 800 MG oral 1-24 Seybold Tablet 00:00: 00 Gabapentin 2022-0 Yes [id number] Ke lsey 800 MG oral 1-24 Seybold Tablet 00:00: 00 Gabapentin 2022-0 Yes [id number] Ke lsey 800 MG oral 1-24 Seybold Tablet 00:00: 00 Gabapentin 2022-0 Yes [id number] Ke lsey 800 MG oral 1-24 Seybold Tablet 00:00: 00 Gabapentin 2022-0 2022- No [id number] K elsey 800 MG oral 1-24 -28 Seybold Tablet 00:00: 00:00 - 00 :00 Externa l Morphine 2022-0 Yes [id number] Wanda ey Sulfate ER 1-15 Seybold 15 MG oral 00:00: Tab CR 00 Morphine 2022-0 Yes [id number] Wanda ey Sulfate ER 1-15 Seybold 15 MG oral 00:00: Tab CR 00 Morphine 2022-0 Yes [id number] Wanda ey Sulfate ER 1-15 Seybold 15 MG oral 00:00: Tab CR 00 Morphine 2022-0 Yes [id number] Wanda ey Sulfate ER 1-15 Seybold 15 MG oral 00:00: Tab CR 00 Morphine 2022-0 Yes [id number] Wanda ey Sulfate ER 1-15 Seybold 15 MG oral 00:00: Tab CR 00 Morphine 2022-0 Yes [id number] Wanda ey Sulfate ER 1-15 Seybold 15 MG oral 00:00: Tab CR 00 Morphine 2022-0 Yes [id number] Wanda ey Sulfate ER 1-15 Seybold 15 MG oral 00:00: Tab CR 00 Morphine 2022-0 Yes [id number] Wanda ey Sulfate ER 1-15 Seybold 15 MG oral 00:00: Tab CR 00 Morphine 2022-0 Yes [id number] Wanda ey Sulfate ER 1-15 Seybold 15 MG oral 00:00: Tab CR 00 Morphine 2022-0 Yes [id number] Wanda ey Sulfate ER 1-15 Seybold 15 MG oral 00:00: Tab CR 00 Morphine 2022-0 Yes [id number] Wanda ey Sulfate ER 1-15 Seybold 15 MG oral 00:00: - Tab CR 00 Externa l Morphine 2022-0 Yes [id number] Wanda ey Sulfate ER 1-15 Seybold 15 MG oral 00:00: - Tab CR 00 Externa l Morphine 2022-0 Yes [id number] Wanda ey Sulfate ER 1-15 Seybold 15 MG oral 00:00: - Tab CR 00 Externa l Doxepin HCl 2-0 Yes [id number] Ke lsey 25 MG oral 1-12 Seybold Capsule 00:00: 00 Doxepin HCl 2022-0 Yes [id number] Ke lsey 25 MG oral 1-12 Seybold Capsule 00:00: 00 Doxepin HCl 2022-0 Yes [id number] Ke lsey 25 MG oral 1-12 Seybold Capsule 00:00: 00 Doxepin HCl 2022-0 2022- No [id number] K elsey 25 MG oral 1-12 - Seybold Capsule 00:00: 00:00 00 :00 Lokelma 10 2022-0 Yes [id number] Cole sey g oral Pack 1-10 Seybold 00:00: 00 Lokelma 10 2022-0 Yes [id number] Cole sey g oral Pack 1-10 Seybold 00:00: 00 Lokelma 10 2022-0 Yes [id number] Cole sey g oral Pack 1-10 Seybold 00:00: 00 Lokelma 10 2022-0 Yes [id number] Cole sey g oral Pack 1-10 Seybold 00:00: 00 Lokelma 10 2022-0 Yes [id number] Cole sey g oral Pack 1-10 Seybold 00:00: 00 Lokelma 10 2022-0 Yes [id number] Cole sey g oral Pack 1-10 Seybold 00:00: 00 Lokelma 10 2022-0 Yes [id number] Cole sey g oral Pack 1-10 Seybold 00:00: 00 Lokelma 10 2022-0 Yes [id number] Cole sey g oral Pack 1-10 Seybold 00:00: 00 Lokelma 10 2022-0 Yes [id number] Cole sey g oral Pack 1-10 Seybold 00:00: 00 Lokelma 10 2022-0 Yes [id number] Cole sey g oral Pack 1-10 Seybold 00:00: 00 Sodium 2022- No [id number] 650mg Take 650 K elsey Bicarbonate 1-10 -11 mg by Seybol d 650 MG oral 00:00: 05:59 mouth 3 Tablet 00 :00 times daily Sodium 2022- No [id number] 650mg Take 650 K elsey Bicarbonate 1-10 -11 mg by Seybol d 650 MG oral 00:00: 05:59 mouth 3 Tablet 00 :00 times daily Sodium 2022- No [id number] 650mg Take 650 K elsey Bicarbonate 1-10 -11 mg by Seybol d 650 MG oral 00:00: 05:59 mouth 3 Tablet 00 :00 times daily Sodium 2022- No [id number] 650mg Take 650 K elsey Bicarbonate 1-10 -11 mg by Seybol d 650 MG oral 00:00: 05:59 mouth 3 Tablet 00 :00 times daily Sodium 2022- No [id number] 650mg Take 650 K elsey Bicarbonate 1-10 -11 mg by Seybol d 650 MG oral 00:00: 05:59 mouth 3 Tablet 00 :00 times daily Sodium 2022- No [id number] 650mg Take 650 K elsey Bicarbonate 1-10 -11 mg by Seybol d 650 MG oral 00:00: 05:59 mouth 3 Tablet 00 :00 times daily Sodium 2022- No [id number] 650mg Take 650 K elsey Bicarbonate 1-10 -11 mg by Seybol d 650 MG oral 00:00: 05:59 mouth 3 Tablet 00 :00 times daily Sodium 2022- No [id number] 650mg Take 650 K elsey Bicarbonate 1-10 -11 mg by Seybol d 650 MG oral 00:00: 05:59 mouth 3 Tablet 00 :00 times daily Sodium 2022- No [id number] 650mg Take 650 K elsey Bicarbonate 1-10 01-11 mg by Seybol d 650 MG oral 00:00: 05:59 mouth 3 Tablet 00 :00 times daily Sodium 2022- No [id number] 650mg Take 650 K elsey Bicarbonate 1-10 01-11 mg by Seybol d 650 MG oral 00:00: 05:59 mouth 3 Tablet 00 :00 times daily Movantik 2021-0 Yes [id number] K elsey MG oral 1-05 Seybold Tablet 00:00: 00 Movantik 2021-0 Yes [id number] K elsey MG oral 1-05 Seybold [facility]:00[facility] [id number] K elsey MG oral 1-05 Seybold Tablet 00:00: 00 Movantik 2021-0 Yes [id number] K elsey MG oral 1-05 Seybold Tablet 00:00: [facility] Yes [id number] K elsey MG oral 1-05 Seybold Tablet 00:00: [facility] Yes [id number] K elsey MG oral 1-05 Seybold Tablet 00:00: 00 [facility] 2021-0 Yes [id number] K elsey MG oral 1-05 Seybold [id number] K elsey MG oral 1-05 Seybold Tablet 00:00: [facility] Yes [id number] K elsey MG oral 1-05 Seybold Tablet 00:00: [facility] Yes [id number] K elsey MG oral 1-05 Seybold Tablet 00:00: 00 Ferrous 2020-02 Yes [id number] Kelse y Sulfate 325 2-26 Seybold (65 Fe) MG 00:00: oral Tablet 00 Ferrous 2020-02 Yes [id number] Kelse y Sulfate 325 2-26 Seybold (65 Fe) MG 00:00: oral Tablet 00 Ferrous 2020-02 Yes [id number] Kelse y Sulfate 325 2-26 Seybold (65 Fe) MG 00:00: oral Tablet 00 Ferrous 2020-02 Yes [id number] Kelse y Sulfate 325 2-26 Seybold (65 Fe) MG 00:00: oral Tablet 00 Ferrous 2020-02 Yes [id number] Kelse y Sulfate 325 2-26 Seybold (65 Fe) MG 00:00: oral Tablet 00 Ferrous 2020-02 Yes [id number] Kelse y Sulfate 325 2-26 Seybold (65 Fe) MG 00:00: oral Tablet 00 Ferrous 2020- Yes [id number] Kelse y Sulfate 325 2-26 Seybold (65 Fe) MG 00:00: oral Tablet 00 Ferrous 2020- Yes [id number] Kelse y Sulfate 325 2-26 Seybold (65 Fe) MG 00:00: oral Tablet 00 Ferrous 2020- Yes [id number] Kelse y Sulfate 325 2-26 Seybold (65 Fe) MG 00:00: oral Tablet 00 Ferrous 2020- Yes [id number] Kelse y Sulfate 325 2-26 Seybold (65 Fe) MG 00:00: oral Tablet 00 [facility] Vitamin 202-1 Yes [id number] K elsey B12 1000 2-08 Seybold MCG oral 00:00: Tab CR 00 Magnesium 2021-1 Yes [id number] Wanda ey Oxide 420 2-08 Seybold MG oral 00:00: Tablet 00 [facility] Vitamin 202-1 Yes [id number] K elsey B12 1000 2-08 Seybold MCG oral 00:00: Tab CR 00 Magnesium 2021-1 Yes [id number] Wanda ey Oxide 420 2-08 Seybold MG oral 00:00: Tablet 00 [facility] Vitamin 2021-1 Yes [id number] K elsey B12 1000 2-08 Seybold MCG oral 00:00: Tab CR 00 Magnesium 2021-1 Yes [id number] Wanda ey Oxide 420 2-08 Seybold MG oral 00:00: Tablet 00 [facility] Vitamin 2021-1 Yes [id number] K elsey B12 1000 2-08 Seybold MCG oral 00:00: Tab CR 00 Magnesium 2021-1 Yes [id number] Wanda ey Oxide 420 2-08 Seybold MG oral 00:00: Tablet 00 [facility] Vitamin 2021-1 Yes [id number] K elsey B12 1000 2-08 Seybold MCG oral 00:00: Tab CR 00 Magnesium 2021-1 Yes [id number] Wanda ey Oxide 420 2-08 Seybold MG oral 00:00: Tablet 00 [facility] Vitamin 2021-1 Yes [id number] K elsey B12 1000 2-08 Seybold MCG oral 00:00: Tab CR 00 Magnesium 2021-1 Yes [id number] Wanda ey Oxide 420 2-08 Seybold MG oral 00:00: Tablet 00 [facility] 2021-1 Yes [id number] K elsey B12 1000 2-08 Seybold MCG oral 00:00: Tab CR 00 Magnesium 2021-1 Yes [id number] Wanda ey Oxide 420 2-08 Seybold MG oral 00:00: Tablet 00 [facility] Vitamin 2021-1 Yes [id number] K elsey B12 1000 2-08 Seybold MCG oral 00:00: Tab CR 00 [facility] Vitamin 2021-1 Yes [id number] K elsey B12 1000 2-08 Seybold MCG oral 00:00: Tab CR 00 Magnesium 2021-1 Yes [id number] Wanda ey Oxide 420 2-08 Seybold MG oral 00:00: Tablet 00 Magnesium 2021-1 Yes [id number] Wanda ey Oxide 420 2-08 Seybold MG oral 00:00: Tablet 00 [facility] Vitamin 2021-1 Yes [id number] K elsey B12 1000 2-08 Seybold MCG oral 00:00: Tab CR 00 Magnesium 2021-1 Yes [id number] Wanda ey Oxide 420 2-08 Seybold MG oral 00:00: Tablet 00 [facility] Vitamin 2021-1 Yes [id number] K elsey B12 1000 2-08 Seybold MCG oral 00:00: - Tab CR 00 Externa l [facility] Vitamin 2021-1 Yes [id number] K elsey B12 1000 2-08 Seybold MCG oral 00:00: - Tab CR 00 Externa l [facility] Vitamin 2021-1 Yes [id number] K elsey B12 1000 2-08 Seybold MCG oral 00:00: - Tab CR 00 Externa l [facility] 2021-1 Yes [id number] K elsey B12 1000 2-08 Seybold MCG oral 00:00: - Tab CR 00 Externa l [facility] Vitamin 2021-1 Yes [id number] K elsey B12 1000 2-08 Seybold MCG oral 00:00: - Tab CR 00 Externa l [facility] Vitamin 2021-1 Yes [id number] K elsey B12 1000 2-08 Seybold MCG oral 00:00: - Tab CR 00 Externa l Ascorbic 2021-1 Yes [id number] 1{tbl} Take 1 Cheyenne Acid 500 MG 1-22 tablet by Sey bold oral Tablet 00:00: mouth 2 00 times daily Ascorbic 2021-1 Yes [id number] 1{tbl} Take 1 Cheyenne Acid 500 MG 1-22 tablet by Sey bold oral Tablet 00:00: mouth 2 00 times daily Ascorbic 2020-02 Yes [id number] 1{tbl} Take 1 Cheyenne Acid 500 MG 1-22 tablet by Sey bold oral Tablet 00:00: mouth 2 00 times daily Ascorbic 2020-02 Yes [id number] 1{tbl} Take 1 Cheyenne Acid 500 MG 1-22 tablet by Sey bold oral Tablet 00:00: mouth 2 00 times daily Ascorbic 2020-02 Yes [id number] 1{tbl} Take 1 Cheyenne Acid 500 MG 1-22 tablet by Sey bold oral Tablet 00:00: mouth 2 00 times daily Ascorbic 2020-02 Yes [id number] 1{tbl} Take 1 Cheyenne Acid 500 MG 1-22 tablet by Sey bold oral Tablet 00:00: mouth 2 00 times daily Ascorbic 2020-02 Yes [id number] 1{tbl} Take 1 Cheyenne Acid 500 MG 1-22 tablet by Sey bold oral Tablet 00:00: mouth 2 00 times daily Ascorbic 2020-02 Yes [id number] 1{tbl} Take 1 Cheyenne Acid 500 MG 1-22 tablet by Sey bold oral Tablet 00:00: mouth 2 00 times daily Ascorbic 2020-02 Yes [id number] 1{tbl} Take 1 Cheyenne Acid 500 MG 1-22 tablet by Sey bold oral Tablet 00:00: mouth 2 00 times daily Ascorbic 2020-02 Yes [id number] 1{tbl} Take 1 Cheyenne Acid 500 MG 1-22 tablet by Sey bold oral Tablet 00:00: mouth 2 00 times daily Amlodipine 0 2021- No [id number] 5mg Take 5 mg Cheyenne Besylate 5 7- 07-27 by mouth Seyb old MG oral 00:00: 04:59 daily Tablet 00 :00 Amlodipine 0 2021- No [id number] 5mg Take 5 mg Cheyenne Besylate 5 7- 07-27 by mouth Seyb old MG oral 00:00: 04:59 daily Tablet 00 :00 Amlodipine 2021- No [id number] 5mg Take 5 mg Cheyenne Besylate 5 7- 07-27 by mouth Seyb old MG oral 00:00: 04:59 daily Tablet 00 :00 Amlodipine 2021- No [id number] 5mg Take 5 mg Cheyenne Besylate 5 7-26 07-27 by mouth Seyb old MG oral 00:00: 04:59 daily Tablet 00 :00 Amlodipine 2020-0 2021- No [id number] 5mg Take 5 mg Cheyenne Besylate 5 09-02 by mouth Seyb old MG oral 00:00: 04:59 daily Tablet 00 :00 Amlodipine 2020-0 2- No [id number] 5mg Take 5 mg Cheyenne Besylate 5 09-02 by mouth Seyb old MG oral 00:00: [...] 00 every 6 Medical (six) Branch hours. carvedilol carvedilol No 1 BID carvedilol Village 12.5 mg 12.5 mg 12.5 mg Family tablet Take tablet Take tablet Practic 1 tablet 1 tablet Take 1 e twice a day twice a day tablet by oral by oral twice a route. route. day by oral route. cyclobenzap cyclobenzap No 1 TID cyclobenza [facility] rine 10 mg rine 10 mg brianna 10 Family tablet Take tablet Take mg tablet Practic 1 tablet 3 1 tablet 3 Take 1 e times a day times a day tablet 3 by oral by oral times a route. route. day by oral route. doxepin 50 doxepin 50 No 1capsul Q1D doxepin 50 Village mg capsule mg capsule e(s) mg capsule Family Take 1 Take 1 Take 1 Practic capsule capsule capsule e every day every day every day by oral by oral by oral route. route. route. Floromet Floromet No Floromet Maricruz roney 0.1 % eye 0.1 % eye 0.1 % eye Family drops,suspe drops,suspe drops,susp Practic nsion nsion ension e INSTILL 1 INSTILL 1 INSTILL 1 DROP INTO DROP INTO DROP INTO AFFECTED AFFECTED AFFECTED EYE(S) BY EYE(S) BY EYE(S) BY OPHTHALMIC OPHTHALMIC OPHTHALMIC ROUTE 4 ROUTE 4 ROUTE 4 TIMES PER TIMES PER TIMES PER DAY DAY DAY gabapentin gabapentin No 6mL TID gabapentin [facility] 250 mg/5 mL 250 mg/5 mL 250 mg/5 Family oral oral mL oral Practic solution solution solution e Take 6 mL 3 Take 6 mL 3 Take 6 mL times a day times a day 3 times a by oral by oral day by route. route. oral route. hydrocodone hydrocodone No 1 Q4H hydrocodon [facility] 10 10 e 10 Family mg-acetamin mg-acetamin mg-acetami Practic ophen 325 ophen 325 nophen 325 e mg tablet mg tablet mg tablet Take 1 Take 1 Take 1 tablet tablet tablet every 4 every 4 every 4 hours by hours by hours by oral route oral route oral route as needed. as needed. as needed. Moxicaine 5 Moxicaine 5 No Moxicaine [place] % topical % topical 5 % Famil y kit APPLY kit APPLY topical Pr actic TO AFFECTED TO AFFECTED kit APPLY e AREA(S) BY AREA(S) BY TO TOPICAL TOPICAL AFFECTED ROUTE 1-4 ROUTE 1-4 AREA(S) BY TIMES DAILY TIMES DAILY TOPICAL NEEDED NEEDED ROUTE 1-4 TIMES DAILY NEEDED naloxone 4 naloxone 4 No naloxone 4 Village mg/actuatio mg/actuatio mg/actuati Family n nasal n nasal on nasal Pract ic spray Take spray Take spray Take e by nasal by nasal by nasal route. route. route. ondansetron ondansetron No 2 BID ondansetro [facility] 4 mg 4 mg n 4 mg Family disintegrat disintegrat disintegra Practic ing tablet ing tablet ting e Place 2 Place [address] 2 twice a day twice a day tablets by by twice a translingua translingua day by l route. l route. translingu al route. Santyl 250 Santyl 250 No Santyl 250 Village unit/gram unit/gram unit/gram Family topical topical topical Practi c ointment ointment ointment e APPLY TO APPLY TO APPLY TO CLEANSED CLEANSED CLEANSED AFFECTED AFFECTED AFFECTED AREA BY AREA BY AREA BY TOPICAL TOPICAL TOPICAL ROUTE ONCE ROUTE ONCE ROUTE ONCE DAILY DAILY DAILY voriconazol voriconazol No 1 Q12H voriconazo Village e 200 mg e 200 mg le 200 mg Fa jennifer tablet Take tablet Take tablet Practic 1 tablet 1 tablet Take 1 e every 12 every 12 tablet hours by hours by every 12 oral route. oral route. hours by oral route. atropine atropine No atropine Maricruz roney 0.01 % eye 0.01 % eye 0.01 % eye Family drop drop drop Practic emulsion emulsion emulsion e baclofen 10 baclofen 10 No 1 TID baclofen Village mg tablet mg tablet 10 mg Fami ly Take 1 Take 1 tablet Practic tablet 3 tablet 3 Take 1 e times a day times a day tablet 3 by oral by oral times a route. route. day by oral route. Immunizations Ordered Immunization Filled Immunization Date Status Commen ts Source Name Name Influenza Virus 2021-12-01 Completed Cheyenne peterson - Vaccine, age 6 months 00:00:00 Ext ernal and up Influenza Virus 2021-12-01 Completed Cheyenne peterson - Vaccine, age 6 months 00:00:00 Ext ernal and up Influenza Virus 2021-12-01 Completed Cheyenne peterson - Vaccine, age 6 months 00:00:00 Ext ernal and up Influenza Virus 2021-12-01 Completed Cheyenne roseold - Vaccine, age 6 months 00:00:00 Ext ernal and up Influenza Virus 2021-12-01 Completed Cheyenne peterson - Vaccine, age 6 months 00:00:00 Ext ernal and up Influenza Virus 2021-12-01 Completed Cheyenne peterson - Vaccine, age 6 months 00:00:00 Ext ernal and up SARS-COV-2 COVID-19 2021-01-10 Completed Unive rsity of PFIZER VACCINE 00:00:00 [facility] SARS-COV-2 COVID-19 2021-01-10 Completed Unive rsity of PFIZER VACCINE 00:00:00 [facility] SARS-COV-2 COVID-19 2021-01-10 Completed Unive rsity of PFIZER VACCINE 00:00:00 [facility] SARS-COV-2 COVID-19 2021-01-10 Completed Unive rsity of PFIZER VACCINE 00:00:00 [facility] SARS-COV-2 COVID-19 2021-01-10 Completed Unive rsity of PFIZER VACCINE 00:00:00 [facility] SARS-COV-2 COVID-19 2021-01-10 Completed Unive rsity of PFIZER VACCINE 00:00:00 [facility] SARS-COV-2 COVID-19 2021-01-10 Completed Unive rsity of PFIZER VACCINE 00:00:00 [facility] SARS-COV-2 COVID-19 2021-01-10 Completed Unive rsity of PFIZER VACCINE 00:00:00 [facility] SARS-COV-2 COVID-19 2021-01-10 Completed Unive rsity of PFIZER VACCINE 00:00:00 [facility] Covid-19 Vaccine 2021-01-10 Completed Cheyenne romeo (Pfizer), [...] Covid-19 Vaccine 2021-01-10 Completed Cheyenne S eybold ([employer]), Mrna-lnp, 00:00:00 Noam Protein, Pf, 30mcg/0.3ml,IM Covid-19 Vaccine 2021-01-10 Completed Cheyenne S eybold ([employer]), Mrna-lnp, 00:00:00 Noam Protein, Pf, 30mcg/0.3ml,IM Covid-19 Vaccine 2021-01-10 Completed Cheyenne S eybold - ([employer]), Mrna-lnp, 00:00:00 Exter nal Noam Protein, Pf, 30mcg/0.3ml,IM Covid-19 Vaccine 2021-01-10 Completed Cheyenne S eybold - ([employer]), Mrna-lnp, 00:00:00 Exter nal Noam Protein, Pf, 30mcg/0.3ml,IM Covid-19 Vaccine 2021-01-10 Completed Cheyenne S eybold - (Pfizer), Mrna-lnp, 00:00:00 Exter nal Noam Protein, Pf, 30mcg/0.3ml,IM Covid-19 Vaccine 2021-01-10 Completed Cheyenne S eybold - ([employer]), Mrna-lnp, 00:00:00 Exter nal Noam Protein, Pf, 30mcg/0.3ml,IM Covid-19 Vaccine 2021-01-10 Completed Cheyenne S eybold - (Pfizer), Mrna-lnp, 00:00:00 Exter nal Noam Protein, Pf, 30mcg/0.3ml,IM Covid-19 Vaccine 2021-01-10 Completed Cheyenne S eybold - ([employer]), Mrna-lnp, 00:00:00 Exter nal Noam Protein, Pf, [...] Completed Unive rsity of PFIZER VACCINE 00:00:00 [facility] SARS-COV-2 COVID-19 2020-04-27 Completed Unive rsity of PFIZER VACCINE 00:00:00 [facility] SARS-COV-2 COVID-19 2020-04-27 Completed Unive rsity of PFIZER VACCINE 00:00:00 [facility] SARS-COV-2 COVID-19 2020-04-27 Completed Unive rsity of PFIZER VACCINE 00:00:00 [facility] SARS-COV-2 COVID-19 2020-04-27 Completed Unive rsity of PFIZER VACCINE 00:00:00 [facility] SARS-COV-2 COVID-19 2020-04-27 Completed Unive rsity of PFIZER VACCINE 00:00:00 [facility] SARS-COV-2 COVID-19 2020-04-27 Completed Unive rsity of PFIZER VACCINE 00:00:00 [facility] SARS-COV-2 COVID-19 2020-04-27 Completed Unive rsity of PFIZER VACCINE 00:00:00 [facility] SARS-COV-2 COVID-19 2020-04-27 Completed Unive rsity of PFIZER VACCINE 00:00:00 [facility] Covid-19 Vaccine 2020-04-27 Completed Cheyenne S eybold [...] Covid-19 Vaccine 2020-04-27 Completed Cheyenne S eybold ([facility]), Mrna-lnp, 00:00:00 Noam Protein, Pf, 30mcg/0.3ml,IM Covid-19 Vaccine 2020-04-27 Completed Cheyenne S eybold ([facility]), Mrna-lnp, 00:00:00 Noam Protein, Pf, 30mcg/0.3ml,IM Covid-19 Vaccine 2020-04-27 Completed Cheyenne S eybold ([facility]), Mrna-lnp, 00:00:00 Noam Protein, Pf, 30mcg/0.3ml,IM Covid-19 Vaccine 2020-04-27 Completed Cheyenne S eybold ([facility]), Mrna-lnp, 00:00:00 Noam Protein, Pf, 30mcg/0.3ml,IM Covid-19 Vaccine 2020-04-27 Completed Cheyenne S eybold ([facility]), Mrna-lnp, 00:00:00 Noam Protein, Pf, 30mcg/0.3ml,IM Covid-19 Vaccine 2020-04-27 Completed Cheyenne S eybold ([facility]), Mrna-lnp, 00:00:00 Noam Protein, Pf, 30mcg/0.3ml,IM Covid-19 Vaccine 2020-04-27 Completed Cheyenne S eybold ([facility]), Mrna-lnp, 00:00:00 Noam Protein, Pf, 30mcg/0.3ml,IM Covid-19 Vaccine 2020-04-27 Completed Cheyenne S eybold ([facility]), Mrna-lnp, 00:00:00 Noam Protein, Pf, 30mcg/0.3ml,IM Covid-19 Vaccine 2020-04-27 Completed Cheyenne S eybold ([facility]), Mrna-lnp, 00:00:00 Noam Protein, Pf, 30mcg/0.3ml,IM Covid-19 Vaccine 2020-04-27 Completed Cheyenne S eybold ([facility]), Mrna-lnp, 00:00:00 Noam Protein, Pf, 30mcg/0.3ml,IM Covid-19 Vaccine 2020-04-27 Completed Cheyenne S eybold ([facility]), Mrna-lnp, 00:00:00 Noam Protein, Pf, 30mcg/0.3ml,IM Covid-19 Vaccine 2020-04-27 Completed Cheyenne S eybold - (Pfizer), Mrna-lnp, 00:00:00 Exter nal Noam Protein, Pf, 30mcg/0.3ml,IM Covid-19 Vaccine 2020-04-27 Completed Cheyenne S eybold - (Pfizer), Mrna-lnp, 00:00:00 Exter nal Noam Protein, Pf, 30mcg/0.3ml,IM Covid-19 Vaccine 2020-04-27 Completed Cheyenne S eybold - ([employer]), Mrna-lnp, 00:00:00 Exter nal Noam Protein, Pf, [...] Completed Unive rsity of PFIZER VACCINE 00:00:00 [facility] SARS-COV-2 COVID-19 2020-04-06 Completed Unive rsity of PFIZER VACCINE 00:00:00 [facility] SARS-COV-2 COVID-19 2020-04-06 Completed Unive rsity of PFIZER VACCINE 00:00:00 [facility] SARS-COV-2 COVID-19 2020-04-06 Completed Unive rsity of PFIZER VACCINE 00:00:00 [facility] SARS-COV-2 COVID-19 2020-04-06 Completed Unive rsity of PFIZER VACCINE 00:00:00 [facility] SARS-COV-2 COVID-19 2020-04-06 Completed Unive rsity of PFIZER VACCINE 00:00:00 [facility] SARS-COV-2 COVID-19 2020-04-06 Completed Unive rsity of PFIZER VACCINE 00:00:00 [facility] SARS-COV-2 COVID-19 2020-04-06 Completed Unive rsity of PFIZER VACCINE 00:00:00 [facility] SARS-COV-2 COVID-19 2020-04-06 Completed Unive rsity of PFIZER VACCINE 00:00:00 [facility] Covid-19 Vaccine 2020-04-06 Completed Cheyenne bloodbold (Pfizer), Mrna-lnp, 00:00:00 Noam [...] Covid-19 Vaccine 2020-04-06 Completed Cheyenne S eybold ([facility]), Mrna-lnp, 00:00:00 Noam Protein, Pf, 30mcg/0.3ml,IM Covid-19 Vaccine 2020-04-06 Completed Cheyenne S eybold ([facility]), Mrna-lnp, 00:00:00 Noam Protein, Pf, 30mcg/0.3ml,IM Covid-19 Vaccine 2020-04-06 Completed Cheyenne S eybold ([facility]), Mrna-lnp, 00:00:00 Noam Protein, Pf, 30mcg/0.3ml,IM Covid-19 Vaccine 2020-04-06 Completed Cheyenne S eybold ([facility]), Mrna-lnp, 00:00:00 Noam Protein, Pf, 30mcg/0.3ml,IM Covid-19 Vaccine 2020-04-06 Completed Cheyenne S eybold ([facility]), Mrna-lnp, 00:00:00 Noam Protein, Pf, 30mcg/0.3ml,IM Covid-19 Vaccine 2020-04-06 Completed Cheyenne S eybold ([facility]), Mrna-lnp, 00:00:00 Noam Protein, Pf, 30mcg/0.3ml,IM Covid-19 Vaccine 2020-04-06 Completed Cheyenne S eybold - ([facility]), Mrna-lnp, 00:00:00 Exter nal Noam Protein, Pf, 30mcg/0.3ml,IM Covid-19 Vaccine 2020-04-06 Completed Cheyenne S eybold - ([facility]), Mrna-lnp, 00:00:00 Exter nal Noam Protein, Pf, 30mcg/0.3ml,IM Covid-19 Vaccine 2020-04-06 Completed Cheyenne S eybold - ([facility]), Mrna-lnp, 00:00:00 Exter nal Noam Protein, Pf, 30mcg/0.3ml,IM Covid-19 Vaccine 2020-04-06 Completed Cheyenne S eybold - ([employer]), Mrna-lnp, 00:00:00 Exter nal Noam Protein, Pf, [...] Universit [facility] of Vaccine (3+ yrs) 00:00:00 [facility] Influenza Virus 2018-11-01 Completed [facility] Vaccine 00:00:00 [facility] Influenza Virus 2018-11-01 Completed Universit y of Vaccine (3+ yrs) 00:00:00 [facility] Influenza Virus 2018-11-01 Completed Universit y of Vaccine 00:00:00 [facility] Influenza Virus 2018-11-01 Completed Universit y of Vaccine (3+ yrs) 00:00:00 [facility] Influenza Virus 2018-11-01 Completed Universit y of Vaccine 00:00:00 [facility] Influenza Virus 2018-11-01 Completed Universit y of Vaccine (3+ yrs) 00:00:00 [facility] Influenza Virus 2018-11-01 Completed Universit y of Vaccine 00:00:00 [facility] Influenza Virus 2018-11-01 Completed Universit y of Vaccine (3+ yrs) 00:00:00 [facility] Influenza Virus 2018-11-01 Completed Universit y of Vaccine 00:00:00 [facility] Influenza Virus 2018-11-01 Completed Universit y of Vaccine (3+ yrs) 00:00:00 [facility] Influenza Virus 2018-11-01 Completed Universit y of Vaccine 00:00:00 [facility] Influenza Virus 2018-11-01 Completed Universit y of Vaccine (3+ yrs) 00:00:00 [facility] Influenza Virus 2018-11-01 Completed Universit y of Vaccine 00:00:00 [facility] Influenza Virus 2018-11-01 Completed Universit y of Vaccine (3+ yrs) 00:00:00 [facility] Influenza Virus 2018-11-01 Completed Universit y of Vaccine 00:00:00 [facility] Influenza Virus 2018-11-01 Completed Universit y of Vaccine (3+ yrs) 00:00:00 [facility] Influenza Virus 2018-11-01 Completed Universit y of Vaccine 00:00:00 [facility] Influenza, Seasonal, 2018-11-01 Completed Wanda ey Seybold [...] Cole sey Seybold - Polysaccharide 00:00:00 External Vital Signs Vital Name Observation Time Observation Value Comments Source BP Diastolic 2022-06-30 00:00:00 84 mm[Hg] [facility] Height 2022-06-30 00:00:00 74 [in_i] [facility] BMI (Body Mass 2022-06-30 00:00:00 34.5 kg/m2 [facility] Family Index) Practice BP Systolic 2022-06-30 00:00:00 138 mm[Hg] [facility] Body Weight 2022-06-30 00:00:00 269 [lb_av] [facility] HEIGHT 2022-03-04 11:48:00 188 cm WEIGHT 2022-03-04 11:48:00 124.739 kg HEIGHT 2022-03-04 11:48:00 188 cm WEIGHT 2022-03-04 11:48:00 124.739 kg HEIGHT 2022-03-04 11:48:00 188 cm WEIGHT 2022-03-04 11:48:00 124.739 kg Systolic blood 2022-02-18 14:55:00 152 mm[Hg] Cheyenne Brittybold - pressure External Diastolic blood 2022-02-18 14:55:00 84 mm[Hg] Kelse y Seybold - pressure External Heart rate 2022-02-18 14:55:00 68 /min Cheyenne S eybold - External Respiratory rate 2022-02-18 14:55:00 16 /min Wanda ey Seybold - External Body height 2022-02-18 14:55:00 188 cm Cheyenne S eybold - External Body weight 2022-02-18 14:55:00 120.203 kg Cheyenne S eybold - External BMI 2022-02-18 14:55:00 34.02 kg/m2 Cheyenne S eybold - External Systolic blood 2022-01-13 19:50:00 142 mm[Hg] Cheyenne Seybold - pressure External Diastolic blood 2022-01-13 19:50:00 80 mm[Hg] Colese y Seybold - pressure External Heart rate 2022-01-13 19:50:00 84 /min Cheyenne S eybold - External Body temperature 2022-01-13 19:50:00 36.44 Carlyn Wanda ey Seybold - External Respiratory rate 2022-01-13 19:50:00 14 /min Wanda ey Seybold - External Body height 2022-01-13 19:50:00 188 cm Cheyenne S eybold - External Body weight 2022-01-13 19:50:00 122.018 kg Cheyenne S eybold - External BMI 2022-01-13 19:50:00 34.54 kg/m2 Cheyenne S eybold - External Oxygen saturation in 2022-01-13 [...] External Body weight 2021-10-08 14:40:00 120.203 kg [facility] BMI 2021-10-08 14:40:00 34.02 kg/m2 [facility] Systolic blood 2021-06-25 16:08:00 140 [...] oximetry Body height 2021-05-02 15:21:00 188 cm Chyeenne S eybold Body weight 2021-05-02 15:21:00 122.471 [...] saturation in 2021-04-30 13:47:00 99 /min Cheyenne Brittybrita Arterial blood by Pulse oximetry Body temperature [...] BMI 2021-03-05 16:16:00 33.64 kg/m2 Cheyenne romeo Systolic blood 2022-03-04 17:05:00 158 mm[Hg] [facility] Diastolic blood 2022-03-04 17:05:00 91 mm[Hg] [facility] Heart rate 2022-03-04 17:05:00 86 /min [facility] Respiratory rate 2022-03-04 17:05:00 17 /min [facility] Oxygen saturation in 2022-03-04 17:05:00 98 /min [facility] Arterial blood by Medical Ce nter Pulse oximetry Body temperature 2022-03-04 15:47:00 37.11 Carlyn [facility] Body height 2022-03-04 11:48:00 188 cm [facility] Body weight 2022-03-04 11:48:00 124.739 kg [facility] BMI 2022-03-04 11:48:00 35.31 kg/m2 [facility] Procedures Procedure Date / Time Performing Clinician Source Performed X-RAY OF KNEE 1 OR 2 2022-06-30 00:00:00 [facility] 2022-06-03 05:01:00 Doctor Unassigned, No [facility] RELEASE/CLEARANCE FORMS Name [facility] SURGICAL PATHOLOGY 2022-03-05 00:41[facility] 2022-03-04 21:33:00 Hank Lepe ospital [facility] FUNGUS CULTURE 2022-03-04 21:33:00 Hank Lepe ospital [facility] EYE CULTURE 2022-03-04 21:33:00 Hank Lepe ostal [facility] EYE CULTURE, ANAEROBIC 2022-03-04 21:33:00 Hank Lepe [facility] POCT-GLUCOSE METER 2022-03-04 15:56:00 Hank Lepe [facility] KERATOPLASTY, 2022-03-04 13:31:00 Hank Lepe [facility] POCT-GLUCOSE METER 2022-03-04 11:59:00 Hank Lepe [facility] B-SCAN ULTRASOUND - OS - 2022-03-03 16:34:23 [facility] EYE Medicine AUTHORIZATION FOR 2022-01-28 06:01:00 Doctor Unassigned, No [facility] RELEASE OF PHI Name [facility] OPHTHALMOLOGY DIAGNOSTIC 2021-12-02 05:01:00 [facility] Name [facility] OU CORNEAL TOPOGRAPHY, 2021-12-02 00:00:00 Micah Serrano [facility] BOTH EYES [facility] HEPATITIS B SURFACE 2021-09-12 03:08:00 [facility] ANTIGEN [place] HEPATITIS B SURFACE 2021-09-12 03:08:00 [facility] ANTIBODY [place] HEPATITIS B CORE 2021-09-12 03:08:00 [facility] ANTIBODY, TOTAL Center FUNGUS CULTURE 2021-06-26 02:23:00 Neftali Parker [facility] SHOULDER 3 VIEW RIGHT 2021-05-16 16:50:00 Ryder [...] METABOLIC PANEL 2021-04-02 17:27:00 Caroline Valle (12) Cor[facility]al [facility] Procedure on Penis [facility] Osteomyelitis Drainage [facility] Gastric Bypass for [facility] Obesity Practice Plan of Care Planned Activity Planned Date [...] Cessation Counseling and Screening (12+)] Future Scheduled 2022-07-16 [facility] Test 09:11:47 malignant neoplasm of colon (procedure) [code = 862948876] Future Scheduled 2022-07-16 [facility] Test 09:11:47 malignant neoplasm of colon (procedure) [code = [id number]] Future Scheduled 2022-07-16 [facility] Test 09:11:47 malignant neoplasm of colon (procedure) [code = [id number]] Future Scheduled 2022-07-16 [facility] Test 09:11:47 malignant neoplasm of colon (procedure) [code = [id number]] Future Scheduled 2022-07-16 [facility] Test 09:11:47 malignant neoplasm of colon (procedure) [code = [id number]] Future Scheduled 2022-07-16 COVID-19 VACCINE (4 - [facility] Test 09:11:47 Pfizer series) [code = COVID-19 VACCINE (4 - Pfizer series)] Future Scheduled 2022-07-16 INFLUENZA VACCINE [facility] Test 09:11:47 [code = INFLUENZA VACCINE] Future Scheduled 2022-04-14 COLONOSCOPY SCREENING [facility] Test 01:33:47 [code = COLONOSCOPY SCREENING] Future Scheduled 2022-04-14 COVID-19 VACCINE (4 - [facility] Test 01:33:47 Booster for Pfizer series) [code = COVID-19 VACCINE (4 - Booster for Pfizer series)] Future Scheduled 2022-02-[address] [...] SCREENING (12+)] Future Scheduled 2022-01-21 COLONOSCOPY SCREENING [facility] Test 05:11:07 [code = COLONOSCOPY SCREENING] Future Scheduled 2022-01-21 COVID-19 VACCINE (4 - [facility] Test 05:11:07 Booster for Pfizer series) [code = COVID-19 VACCINE (4 - Booster for Pfizer series)] Future Scheduled 2022-01-21 INFLU[facility]ZA VACCINE [facility] 05:11:07 [code = INFLUENZA VACCINE] Future Scheduled 2021-12-10 HEPATITIS B VACCINES [facility] Test 05:45:32 (1 of 3 - 3-dose series) [code = HEPATITIS B VACCINES (1 of 3 - 3-dose series)] Future Scheduled 2021-12-10 COLONOSCOPY SCREENING [facility] Test 05:45:32 [code = COLONOSCOPY SCREENING] Future Scheduled 2021-12-10 COVID-19 VACCINE (4 - [facility] Test 05:45:32 Booster for Pfizer series) [code = COVID-19 VACCINE (4 - Booster for Pfizer series)] Future Scheduled 2021-12-10 [facility]INE [facility] 05:45:32 [code = INFLUENZA VACCINE] Future Scheduled 2021-12-10 HEPATITIS B VACCINES [facility] Test 05:45:32 (1 of 3 - 3-dose series) [code = HEPATITIS B VACCINES (1 of 3 - 3-dose series)] Future Scheduled 2021-12-10 COLONOSCOPY SCREENING [facility] Test 05:45:32 [code = COLONOSCOPY SCREENING] Future Scheduled 2021-12-10 COVID-19 VACCINE (4 - [facility] Test 05:45:32 Booster for Pfizer series) [code = COVID-19 VACCINE (4 - Booster for Pfizer series)] Future Scheduled 2021-12-10 [facility] 05:45:32 [code = INFLUENZA VACCINE] Future Scheduled 2021-10-29 [facility]INE [facility] 05:44:13 [code = INFLUENZA VACCINE] Future Scheduled 2021-10-29 HEPATITIS B VACCINES [facility] Test 05:44:13 (1 of 3 - 3-dose series) [code = HEPATITIS B VACCINES (1 of 3 - 3-dose series)] Future Scheduled 2021-10-29 COLONOSCOPY SCREENING [facility] Test 05:44:13 [code = COLONOSCOPY SCREENING] Future Scheduled 2021-10-29 COVID-19 VACCINE (4 - [facility] Test 05:44:13 Booster for Pfizer series) [code = COVID-19 VACCINE (4 - Booster for Pfizer series)] Future Scheduled 2021-10-09 INFLUENZA VACCINE (#1) [facility] 00:[facility]00 [code = INFLUENZA Medical Ce nter VACCINE (#1)] Future Scheduled 2021-10-09 INFLUENZA VACCINE (#1) [facility] 00:00:00 [code = INFLUENZA Medical Ce nter VACCINE (#1)] Future Scheduled 2021-03-07 COVID-19 VACCINE (4 - [facility] Booster for Pfizer Medical C enter series) [code = COVID-19 VACCINE (4 - Booster for Pfizer series)] Future Scheduled 2021-03-07 COVID-19 VACCINE (4 - [facility] 00:00:00 Booster for Pfizer Medical C enter series) [code = COVID-19 VACCINE (4 - Booster for Pfizer series)] Future Scheduled 2021-03-07 COVID-19 VACCINE (4 - [facility] 00:00:00 Booster for Pfizer Medical C enter series) [code = COVID-19 VACCINE (4 - Booster for Pfizer series)] Future Scheduled 2021-02-[address] [facility] Test 00:00:00 (12+) [code = Medical Center DEPRESSION SCREENING (12+)] Future Scheduled 2021-02-[address] [facility] Test 00:00:00 (12+) [code = Medical Center DEPRESSION SCREENING (12+)] Future Scheduled [address] [facility] 00:00:00 (procedure) [code = Medical Center [id number]] Future Scheduled [address] [facility] Test 00:00:00 (procedure) [code = Medical Center 55190188] Future Scheduled [address] [facility] Test 00:00:00 (procedure) [code = Medical Center 32884407] Future Scheduled [address] [facility] Test 00:00:00 (procedure) [code = Medical Center 23212606] Future Scheduled [address] [facility] Test 00:00:00 (procedure) [code = Medical Center 73711697] Future Scheduled [address] [facility] Test 00:00:00 (procedure) [code = Medical Center 95296460] Future Scheduled [address] [facility] Test 00:00:00 (procedure) [code = Medical Center 74975013] Future Scheduled [address] [facility] Test 00:00:00 (procedure) [code = Medical Center 10079315] Future Scheduled [address] [facility] Test 00:00:00 (procedure) [code = Medical Center 70620662] Future Scheduled [address] [facility] Test 00:00:00 (procedure) [code = Medical Center 43893684] Future Scheduled [address] [facility] Test 00:00:00 (procedure) [code = Medical Center 36020131] Future Scheduled [address] [facility] Test 00:00:00 (procedure) [code = Medical Center 26450836] Future Scheduled [address] [facility] Test 00:00:00 (procedure) [code = Medical Center 49189776] Future Scheduled [address] [facility] Test 00:00:00 (procedure) [code = Medical Center 02266817] Future Scheduled [address] [facility] Test 00:00:00 (procedure) [code = Medical Center 38465686] Future Scheduled [address] [facility] Test 00:00:00 (procedure) [code = Medical Center 99191693] Future Scheduled [address] [facility] Test 00:00:00 (procedure) [code = Medical Center 46610671] Future Scheduled 1992 DTAP/TDAP/TD VACCINES [facility] [...] [address] ter VACCINE (#1)] Future Scheduled [address] [facility] 00:[facility]:00 malignant neoplasm of Medica l Center colon (procedure) [code = 476382457] Future Scheduled 1973 Sigmoidoscopy [facility] [address] [facility] 00:00:00 (combo) [code = CT Medical C enter Colonography (combo)] Future Scheduled [address] [facility] Test 00:00:00 malignant neoplasm [facility] Medica [facility] Center colon (procedure) [code = 076002302] Future Scheduled [address] [facility] Test 00:00:00 [facility] Center colon (procedure) [code = 890200346] Future Scheduled [address] [facility] Test 00:00:00 [facility] Center colon (procedure) [code = 468298698] Future Scheduled [address] [facility] Test 00:00:00 malignant neoplasm of Medica [facility] Center colon (procedure) [code = 395475132] Future Scheduled 1973 [facility] [address] [facility] 00:00:00 (combo) [code = CT Medical C enter Colonography (combo)] Future Scheduled [address] [facility] Test 00:00:00 malignant neoplasm [facility] Medica [facility] Center colon (procedure) [code = 896662492] Future Scheduled [address] [facility] Test 00:00:00 malignant [facility]oplasm [facility] Center colon (procedure) [code = 361417942] Future Scheduled [address] [facility] Test 00:00:00 malignant neoplasm of [facility] Center colon (procedure) [code = 598444137] Future Scheduled [address] [facility] Test 00:00:00 malignant neoplasm of [facility] Center colon (procedure) [code = 426086211] Future Scheduled 1973 Sigmoidoscopy [facility] S[facility]oscopy] Medical Zhou r Future Scheduled [address] [facility] 00:00:00 (combo) [code = CT Medical C enter Colonography (combo)] Future Scheduled [address] [facility] Test 00:00:00 [facility] Center colon (procedure) [code = 073488955] Future Scheduled [address] [facility] Test 00:00:00 malignant neoplasm of [facility] Center colon (procedure) [code = 868548833] Future Scheduled [address] [facility] Test 00:00:00 malignant neoplasm of [facility]ica [facility] Center colon (procedure) [code = 451489443] Future Scheduled [address] [facility] Test 00:00:00 malignant neoplasm of [facility] Center colon (procedure) [code = 416588114] Future Scheduled 1973 Sigmoidoscopy [facility]oscopy] Medical Zhou r Future Scheduled [address] [facility] 00:00:00 (combo) [code = CT Medical C enter Colonography (combo)] Future Scheduled [address] [facility] Test 00:00:00 malignant neoplasm of Medica l Center colon (procedure) [code = 855191354] Future Scheduled [address] [facility] Test 00:00:00 malignant neoplasm of [facility]ica [facility] Center colon (procedure) [code = 556225090] Future Scheduled [address] [facility] Test 00:00:00 malignant neoplasm of [facility]ica [facility] Center colon (procedure) [code = 833411672] Future Scheduled [address] [facility] Test 00:00:00 malignant neoplasm of [facility]ica [facility] Center colon (procedure) [code = 276934093] Future Scheduled 1973 Sigmoidoscopy [facility]] Medical Zhou r Future Scheduled [address] [facility] 00:00:00 (combo) [code = CT Medical C enter Colonography (combo)] Future Scheduled [address] [facility] 00:00:00 malignant neoplasm of [facility]ica [facility] Center colon (procedure) [code = 435421763] Future Scheduled [address] [facility] Test 00:00:00 malignant neoplasm of [facility] Center colon (procedure) [code = 650470110] Future Scheduled [address] [facility] Test 00:00:00 malignant neoplasm of [facility] Center colon (procedure) [code = 991390070] Future Scheduled [address] [facility] Test 00:00:00 malignant neoplasm of Medica l Center colon (procedure) [code = 897452469] Future Scheduled 1973 Sigmoidoscopy [facility]] [facility] Future Scheduled [address] [facility] 00:00:00 (combo) [code = CT Medical C enter Colonography (combo)] Future Scheduled [address] [facility] Test 00:00:00 malignant neoplasm of Medica [facility] Center colon (procedure) [code = 534182899] Future Scheduled [address] [facility] Test 00:00:00 malignant neoplasm of [facility] Center colon (procedure) [code = 298236523] Future Scheduled [address] [facility] 00:00:00 malignant neoplasm of [facility] Center colon (procedure) [code = 333912752] Future Scheduled [address] [facility] 00:00:00 malignant neoplasm of [facility]ica [facility] Center colon (procedure) [code = 938060849] Future Scheduled 1973 Sigmoidoscopy [facility]] [facility] Future Scheduled [address] [facility] 00:00:00 (combo) [code = CT Medical C enter Colonography (combo)] Future Scheduled [address] [facility] Test 00:00:00 malignant neoplasm of Medica [facility] Center colon (procedure) [code = 577789544] Future Scheduled [address] [facility] Test 00:00:00 malignant neoplasm of [facility]ica [facility] Center colon (procedure) [code = 589731697] Future Scheduled [address] [facility] Test 00:00:00 malignant neoplasm of [facility]ica [facility] Center colon (procedure) [code = 758659141] Future Scheduled [address] [facility] Test 00:00:00 malignant neoplasm of Medica [facility] Center colon (procedure) [code = 474048025] Future Scheduled 1973 Sigmoidoscopy [facility]] Medical Jocelynee r Future Scheduled [address] [facility] 00:00:00 (combo) [code = CT Medical C enter Colonography (combo)] Future Scheduled [address] [facility] 00:00:00 malignant neoplasm of [facility] Center colon (procedure) [code = 800680591] Future Scheduled [address] [facility] 00:00:00 malignant neoplasm of [facility] Center colon (procedure) [code = 572849351] Future Scheduled [address] [facility] 00:00:00 malignant neoplasm of [facility] Center colon (procedure) [code = 831418615] Future Scheduled [address] [facility] 00:00:00 malignant neoplasm of Medica [facility] Center colon (procedure) [code = 623051746] Future Scheduled 1973 S[facility]oidoscopy [facility]] [facility] Scheduled [address] [facility] 00:00:00 (combo) [code = CT Medical C enter Colonography (combo)] Future Scheduled [address] [facility] 00:00:00 malignant neoplasm of [facility] Center colon (procedure) [code = 876784293] Future Scheduled [address] [facility] 00:00:00 (combo) [code = CT Medical C enter Colonography (combo)] Future Scheduled [address] [facility] 00:00:00 malignant neoplasm of [facility] Center colon (procedure) [code = 706169760] Future Scheduled [address] [facility] 00:00:00 malignant neoplasm of [facility] Center colon (procedure) [code = 024553242] Future Scheduled [address] [facility] 00:00:00 malignant neoplasm of [facility] Center colon (procedure) [code = 000438301] Future Scheduled [address] [facility] 00:00:00 malignant neoplasm [facility] Center colon (procedure) [code = 465041665] Future Scheduled 1973 [facility]oidoscopy [facility] [address] [facility] 00:00:00 malignant neoplasm of [facility] Center colon (procedure) [code = 815009295] Future Scheduled [address] [facility] 00:00:00 malignant neoplasm of [facility] Center colon (procedure) [code = 597977727] Future Scheduled [address] [facility] Test 00:00:00 malignant neoplasm of [facility] Center colon (procedure) [code = 935779620] Future Scheduled [address] [facility] 00:00:00 (combo) [code = CT Medical C enter Colonography (combo)] Future Scheduled [address] [facility] 00:00:00 malignant neoplasm [facility] Center colon (procedure) [code = 644754296] Future Scheduled [address] [facility] 00:00:00 malignant neoplasm of [facility] Center colon (procedure) [code = 164408187] Future Scheduled [address] [facility] 00:00:00 malignant neoplasm of [facility] Center colon (procedure) [code = 492357475] Future Scheduled [address] [facility] 00:00:00 malignant neoplasm of [facility] Center colon (procedure) [code = 066421822] Future Scheduled 1973 S[facility]oidoscopy [facility]] Medical Jocelynee r Future Scheduled 1973 Sigmoidoscopy [code [facility] 00:[facility] S[facility]oscopy] [facility] Future Scheduled [address] [facility] 00:00:00 (combo) [code = CT Medical C enter Colonography (combo)] Future Scheduled [address] [facility] 00:00:00 malignant neoplasm of [facility] Center colon (procedure) [code = 546168786] Future Scheduled [address] [facility] 00:00:00 malignant neoplasm of [facility] Center colon (procedure) [code = 307675116] Future Scheduled [address] [facility] 00:00:00 malignant neoplasm of [facility] Center colon (procedure) [code = 980173288] Future Scheduled [address] [facility] 00:00:00 malignant neoplasm of [facility] Center colon (procedure) [code = 294932402] Future Scheduled 1973 Sigmoidoscopy [facility]code [facility] 00:[facility]] Medical Jocelynee r Future Scheduled [address] [facility] 00:00:00 (combo) [code = CT Medical C enter Colonography (combo)] Future Scheduled [address] [facility] 00:00:00 malignant neoplasm of [facility] Center colon (procedure) [code = 725528182] Future Scheduled [address] [facility] 00:00:00 malignant neoplasm of [facility] Center colon (procedure) [code = 353209244] Future Scheduled [address] [facility] 00:00:00 malignant neoplasm of [facility] Center colon (procedure) [code = 153991533] Future Scheduled [address] [facility] 00:00:00 malignant neoplasm of [facility] Center colon (procedure) [code = 756598252] Future Scheduled 1973 S[facility]oidoscopy [facility]] [facility] Future Scheduled [address] [facility] 00:00:00 (combo) [code = CT Medical C enter Colonography (combo)] Future Scheduled [address] [facility] 00:00:00 malignant neoplasm of [facility] Center colon (procedure) [code = 228384560] Future Scheduled [address] [facility] 00:00:00 malignant neoplasm of [facility] Center colon (procedure) [code = 382653744] Future Scheduled [address] [facility] 00:00:00 malignant neoplasm of [facility] Center colon (procedure) [code = 094850660] Future Scheduled [address] [facility] 00:00:00 malignant neoplasm of [facility] Center colon (procedure) [code = 826180094] Future Scheduled 1973 [facility]oidoscopy [facility] [address] [facility] 00:00:00 (combo) [code = CT Medical C enter Colonography (combo)] Future Scheduled [address] [facility] 00:00:00 malignant neoplasm of [facility] Center colon (procedure) [code = 298965827] Future Scheduled [address] [facility] 00:00:00 malignant neoplasm of [facility] Center colon (procedure) [code = 001498416] Future Scheduled [address] [facility] 00:00:00 (combo) [code = CT Medical C enter Colonography (combo)] Future Scheduled [address] [facility] 00:00:00 malignant neoplasm of [facility] Center colon (procedure) [code = 995565107] Future Scheduled [address] [facility] 00:00:00 malignant neoplasm of [facility] Center colon (procedure) [code = 657277878] Future Scheduled [address] [facility] 00:00:00 malignant neoplasm of [facility] Center colon (procedure) [code = 780526671] Future Scheduled [address] [facility] 00:00:00 malignant neoplasm of [facility] Center colon (procedure) [code = 280240412] Future Scheduled [address] [facility] 00:00:00 malignant neoplasm of [facility]ica l Center colon (procedure) [code = 151116080] Future Scheduled 1973 Sigmoidoscopy [facility]code [facility] [address] [facility] 00:00:00 malignant neoplasm of [facility] Center colon (procedure) [code = 358583137] Future Scheduled 1973 S[facility]oidoscopy [facility] [address] [facility] 00:00:00 (combo) [code = CT Medical C enter Colonography (combo)] Future Scheduled [address] [facility] 00:00:00 malignant neoplasm of [facility] Center colon (procedure) [code = 226041354] Future Scheduled [address] [facility] 00:00:00 malignant neoplasm of [facility] Center colon (procedure) [code = 489325216] Future Scheduled [address] [facility] 00:00:00 malignant neoplasm of [facility] Center colon (procedure) [code = 906734234] Medication 2022-08-18 HYDROcodone-Acetaminop Kelse y Seybold - 00:00:00 hen 10-325 MG oral External Tablet [code = 769128] Medication 2022-08-18 Morphine Sulfate ER 15 Kelse y Seybold - 00:00:00 MG oral Tab CR [code = Exter nal 535021] Medication 2022-07-21 HYDROcodone-Acetaminop Kelse y Seybold - 00:00:00 hen 10-325 MG oral External Tablet [code = 429704] Medication 2022-07-21 Morphine Sulfate ER 15 Kelse y Seybold - 00:00:00 MG oral Tab CR [code = Exter nal 490228] Encounters Start End Encounter Admission Attending Care Care Encounter Source Date/Time Date/Time Type Type Clinicians Facility Department ID 2022-09-15 2022-09-15 Outpatient CHEYENNE BEDOYA [id number] [place] 10:15:00 10:15:00 MIRA Seybol d 2022-07-23 2022-07-23 Outpatient CHEYENNE VALLE [id number] [place] 11:00:00 11:00:00 CAROLINE Seybol awa 2022-07-22 2022-07-22 Outpatient CHEYENNE GOMEZ [id number] [place] 14:45:00 14:45:00 CHRISTA Seybol awa 2022-07-04 2022-07-04 Outpatient CHEYENNE BEDOYA [id number] [place] 00:00:00 00:00:00 MIRA Seybol awa 2022-07-02 2022-07-02 Outpatient CHEY[place]NE VALLE [id number] [place] 00:00:00 00:00:00 CAROLINE Seybol awa 2022-06-30 2022-06-30 Outpatient Navi_S VFP VFP [id number] [facility] 00:00:00 00:00:00 [id number] Family Practic e 2022-06-30 2022-06-30 Swayam VFP [place] - [id number] V illage 00:00:00 00:00:00 Pedro Mcelroy Famil y MD: [id number] Medical - Pract Medical [place] - e Center VM_HOL[facility]ette_[facility]umou [address], [address] [address] , Ph. 2022-06-26 2022-06-26 Outpatient CHEYENNE VALLE [id number] [place] 00:00:00 00:00:00 CAROLNIE Grimesol awa 2022-06-26 2022-06-26 Outpatient CHEYENNE CROOKS [id number] [place] 00:00:00 00:00:00 GWENDOLYN almaraz 2022-06-24 2022-06-24 Outpatient CHEYENNE BEDOYA [id number] [place] 00:00:00 00:00:00 AHMED Seybol d 2022-06-22 2022-06-22 Outpatient [place]NE VALLE [id number] [place] 00:00:00 00:00:00 CAROLINE Seybol d 2022-06-16 2022-06-16 Outpatient [facility] [id number] [facility] 14:09:14 15:41:23 HANK zaragoza of Medicin e 2022-06-16 2022-06-16 Outpatient CHEYENNE VALLE [id number] [place] 00:00:00 00:00:00 CAROLINE Seybol d 2022-06-16 2022-06-16 Outpatient [place]NE VALLE [id number] [place] 00:00:00 00:00:00 CAROLINE Seybol d 2022-06-15 2022-06-15 Outpatient JOHNCHEYENNE LEOS [id number] [place] 10:30:00 10:30:00 AHMED Seybol d 2022-06-10 2022-06-10 Outpatient Julián VF VFP [id number] [facility] 00:00:00 00:00:00 z [id number] Family Practic e 2022-06-04 2022-06-04 Outpatient CHEYENNE VALLE [id number] [place] 00:00:00 00:00:00 CAROLINE Seybol d 2022-06-03 2022-06-03 Outpatient CHEYENNE DIAZ [id number] [place] 00:00:00 00:00:00 Seybol d 2022-06-03 2022-06-03 Orders Doctor MAYA [id number] [facility] 00:00:00 00:00:00 Only Unassigned, BA [id number] [facility] [place] [id number] Sukhjinder as [id number] [facility] damien [address]9 [place] 2022-05-29 2022-05-29 Outpatient CHEYENNE VALLE [id number] [place] 00:00:00 00:00:00 CAROLINE Seybol d 2022-05-22 2022-05-22 Outpatient CHEY[place]NE VALLE [id number] [place] 00:00:00 00:00:00 CAROLINE Seybol d 2022-05-21 2022-05-21 Outpatient ELKE [place]NE DIAZ [id number] [place] 00:00:00 00:00:00 AHMED Seybol d 2022-05-20 2022-05-20 Outpatient PREDEVIKACHEYENNE Uriarte [id number] [place] 00:00:00 00:00:00 GWENDOLYN Seybol d 2022-05-19 2022-05-19 Outpatient CHEYENNE RODRIGUEZ [id number] [place] 10:00:00 10:00:00 CHARLENE Seybol d 2022-05-19 2022-05-19 Outpatient YNEYCHEYENNE [id number] [place] 09:40:00 09:40:00 CEASAR Seybol d 2022-05-18 2022-05-18 Outpatient ELKECHEYENNE [id number] [place] 00:00:00 00:00:00 AHMED Seybol d 2022-05-17 2022-05-17 Outpatient HUNDLCHEYENNE [id number] [place] 00:00:00 00:00:00 CAROLINE Seybol d 2022-05-14 2022-05-14 Outpatient CHEY[place]NE DIAZ [id number] [place] 08:30:00 08:30:00 Seybol d 2022-05-12 2022-05-12 Outpatient [facility] [id number] [facility] 12:41:55 14:04:31 HANK brown Medicin e 2022-05-12 2022-05-12 Outpatient 39, HOLTER CHE[place]NE DIAZ [id number] [place] 10:45:00 10:45:00 Seybol d 2022-05-12 2022-05-12 Outpatient LORNACHEYENNE DICKSON [id number] [place] 09:15:00 09:15:00 CHARLENE Seybol d 2022-05-12 2022-05-12 Outpatient CHEYENNE CROOKS [id number] [place] 00:00:00 00:00:00 GWENDOLYN Seybol d 2022-05-11 2022-05-11 Outpatient LAB90 CHEY[place]NE DIAZ [id number] [place] 09:35:00 09:35:00 Seybol d 2022-05-11 2022-05-11 Outpatient CHEYENNE CROOKS [id number] [place] 00:00:00 00:00:00 GWENDOLYN Seybol d 2022-05-11 2022-05-11 Outpatient CHEYENNE CROOKS [id number] [place] 00:00:00 00:00:00 GWENDOLYN Seybol d 2022-04-27 2022-04-27 Outpatient [facility] [id number] [facility] 12:56:48 13:41:22 HANK Colle ge of Medicin e 2022-04-27 2022-04-27 Outpatient CHEYENNE VALLE [id number] [place] 00:00:00 00:00:00 CAROLINE Seybol d 2022-04-22 2022-04-22 Outpatient CHEYENNE BEDOYA [id number] [place] 00:00:00 00:00:00 AHMED Seybol d 2022-04-16 2022-04-16 [id number] [facility] 10:18:12 11:09:57 HANK Colle ge of Medicin e 2022-04-15 2022-04-15 Outpatient CHEYENNE VALLE [id number] [place] 00:00:00 00:00:00 CAROLINE Seybol d 2022-04-08 2022-04-08 Outpatient CHEYENNE CROOKS [id number] [place] 00:00:00 00:00:00 GWENDOLYN Seybol d 2022-04-06 2022-04-06 Outpatient [facility] [id number] [facility] 13:51:50 15:06:32 HANK Colle ge of Medicin e 2022-04-01 2022-04-01 Outpatient CHEYENNE CROOKS [id number] [place] 00:00:00 00:00:00 GWENDOLYN Seybol d 2022-03-31 2022-03-31 Outpatient LAB90 CHEYENNE DIAZ [id number] [place] 09:05:00 09:05:00 Seybol d 2022-03-30 2022-03-30 Outpatient CHEYENNE BEDOYA [id number] [place] 00:00:00 00:00:00 AHMED Seybol d 2022-03-26 2022-03-26 Outpatient [facility]ERTH[facility] [id number] [facility] 10:23:10 12:19:21 HANK Colle ge of Medicin e 2022-03-24 2022-03-24 Outpatient PRECHEYENNE SOTO [id number] [place] 00:00:00 00:00:00 GWENDOLYN Seybol d 2022-03-23 2022-03-23 Outpatient LAB90 CHEYENNE DIAZ [id number] [place] 08:05:00 08:05:00 Seybol d 2022-03-19 2022-03-19 Outpatient [facility] [id number] [facility] 11:19:39 12:17:35 HANK Colle ge of Medicin e 2022-03-18 2022-03-18 Outpatient VENANCIOCHEYENNE HERNANDES [id number] [place] 13:45:00 13:45:00 AHMED Seybol d 2022-03-16 2022-03-16 Outpatient [facility] [id number] [facility] 08:50:28 14:55:16 HANK Colle ge of Medicin e 2022-03-13 2022-03-13 Outpatient LANA, [facility] [id number] [facility] 16:18:33 17:18:33 KEITH Colleg [employer] Medicin e 2022-03-13 2022-03-13 Outpatient CHEYENNE VALLE [id number] [place] 00:00:00 00:00:00 CAROLINE Seybol d 2022-03-13 2022-03-13 Outpatient PREDEVIKACHEYENNE Uriarte [id number] [place] 00:00:00 00:00:00 GWENDOLYN Seybol d 2022-03-12 2022-03-12 Outpatient CHEYENNE VALLE [id number] [place] 00:00:00 00:00:00 CAROLINE Seybol d 2022-03-09 2022-03-09 Outpatient [facility] [id number] [facility] 13:03:13 14:18:25 HANK Colle ge of Medicin e 2022-03-09 2022-03-09 Outpatient LAB90 CHEYENNE CHEYENNE [id number] [place] 08:50:00 08:50:00 Seybol d 2022-03-09 2022-03-09 Outpatient CHEYENNE BEDOYA [place] [id number] [place] 00:00:00 00:00:00 AHMED Seybol d 2022-03-06 2022-03-06 [facility] [id number] [place] [address] 13:49:17 14:59:01 KEITH childs of Medicin e 2022-03-06 2022-03-06 Outpatient CHEYENNE VALLE CHEYENNE [id number] [place] 00:00:00 00:00:00 CAROLINE Seybol d 2022-03-05 2022-03-05 Outpatient ROBERTH [facility] [id number] [place] [id number] 09:20:45 13:21:47 HANK zaragoza of Medicin e 2022-03-04 2022-03-04 [facility] [id number] 11:32:00 17:20:00 Encounter [facility] 2022-03-04 2022-03-04 Outpatient [facility] Surgery [id number] [facility] 11:32:00 17:20:00 HANK 2022-03-04 2022-03-04 [facility] [id number] 11:32:00 17:20:00 Encounter [facility] 2022-03-04 2022-03-04 [facility], 1.2.840.1 [id number] [facility] 17:00:00 17:05:[address] [facility] 3.430.2.7 Hospit a .3.891937 l .8 2022-03-04 2022-03-04 Lab [place], 1.2.840.1 [id number] [facility] 17:00:00 17:05:[address] [place] 3.430.2.7 Hospit a .3.915631 l .8 2022-03-04 2022-03-04 Anesthesia [facility] [id number] [facility] 13:41:00 15:43:00 Event Zoya [facility] 2022-03-04 2022-03-04 Anesthesia [facility] [id number] [facility] 13:41:00 15:43:00 Event Zoya [facility] 2022-03-04 2022-03-04 [facility] [id number] 12:25:00 13:45:00 [facility] 2022-03-04 2022-03-04 Surgery [facility] [id number] 12:25:00 13:45:00 [facility] 2022-03-04 2022-03-04 Outpatient CHEYENNE DIAZ [id number] [place] 00:00:00 00:00:00 Seybol d 2022-03-04 2022-03-04 Outpatient CHEYENNE DIAZ [id number] [place] 00:00:00 00:00:00 Seybol d 2022-03-04 2022-03-[address] [facility] [id number] [facility] 00:[facility] 00:00:00 [facility] 2022-03-04 2022-03-[address] [facility] [id number] [facility] 00:00:00 00:00:00 [facility] 2022-03-03 2022-03-03 Outpatient [facility] [id number] [facility] 14:10:05 17:20:16 HANK brown Medicin e 2022-03-03 2022-03-03 Outpatient CHEYENNE JOHNSON [id number] [place] 12:45:00 12:45:00 RUPINDER Seybol d 2022-03-03 2022-03-03 Outpatient CHEYENNE ALCALA [id number] [place] 08:40:00 08:40:00 EMIGDIO Seybol d 2022-03-03 2022-03-03 Outpatient HUNDL, CHEYENNE CHEYENNE [id number] [place] 00:00:00 00:00:00 CAROLINE Seybol d 2022-03-03 2022-03-03 Outpatient CHEYENNE DIAZ [id number] [place] 00:00:00 00:00:00 Seybol d 2022-03-03 2022-03-03 Outpatient CHEYENNE DIAZ [id number] [place] 00:00:00 00:00:00 Seybol d 2022-03-03 2022-03-03 Outpatient CHEYENNE DIAZ [id number] [place] 00:00:00 00:00:00 Seybol d 2022-03-02 2022-03-02 Outpatient THIAGOL CHEYENNE DIAZ [id number] [place] 00:00:00 00:00:00 CAROLINE Seybol d 2022-02-24 2022-02-24 Outpatient LAB90 CHEYENNE DIAZ [id number] [place] 07:55:00 07:55:00 Seybol d 2022-02-24 2022-02-24 Outpatient THIAGOL, CHEYENNE DIAZ [id number] [place] 00:00:00 00:00:00 CAROLINE Seybol d 2022-02-24 2022-02-24 Outpatient LEONARD CHEYENNE DIAZ [id number] [place] 00:00:00 00:00:00 CAROLINE Seybol d 2022-02-20 2022-02-20 Outpatient LEONARD CHEYENNE DIAZ [id number] [place] 14:00:00 14:00:00 CAROLINE Seybol d 2022-02-19 2022-02-19 Outpatient THIAGOL CHEY[place]NE DIAZ [id number] [place] 00:00:00 00:00:00 CAROLINE Seybol d 2022-02-18 2022-02-18 Outpatient LAB39 CHEYENNE DIAZ [id number] [place] 10:25:00 10:25:00 Seybol d 2022-02-18 2022-02-18 Outpatient CHEYENNE BEDOYA [id number] [place] 09:00:00 09:00:00 AHMED Seybol d 2022-02-18 2022-02-18 Outpatient CHEYENNE BEDOYA [id number] [place] 00:00:00 00:00:00 AHMED Seybol d 2022-02-17 2022-02-17 Outpatient JAIME, SURENDRA DIAZ [place] [id number] [place] 08:30:00 08:30:00 Seybol d 2022-02-17 2022-02-17 Outpatient LAB90 CHEYENNE CHEYENNE [id number] [place] 08:20:00 08:20:00 Seybol d 2022-02-12 2022-02-12 Outpatient HUNDL, CHEYENNE CHEYENNE [id number] [place] 00:00:00 00:00:00 CAROLINE Seybol d 2022-02-11 2022-02-11 Outpatient HUNDL, CHEYENNE CHEYENNE [id number] [place] 00:00:00 00:00:00 CAROLINE Seybol d 2022-02-11 2022-02-11 Outpatient HUNDL, CHEYENNE CHEYENNE [id number] [place] 00:00:00 00:00:00 CAROLINE Seybol d 2022-02-11 2022-02-11 Outpatient HUNDL, CHEYENNE CHEYENNE [id number] [place] 00:00:00 00:00:00 CAROLINE Seybol d 2022-02-10 2022-02-10 Outpatient JAIME, SURENDRA HALLLETI DIAZ [id number] [place] 08:00:00 08:00:00 Seybol d 2022-02-10 2022-02-10 Outpatient LAB90 CHEYENNE CHEYENNE [id number] [place] 07:55:00 07:55:00 Seybol d 2022-02-10 2022-02-10 Outpatient HUNDL, CHEYENNE CHEYENNE [id number] [place] 00:00:00 00:00:00 CAROLINE Seybol d 2022-02-06 2022-02-06 Outpatient LAB90 CHEYENNELETI DIAZ [id number] [place] 08:05:00 08:05:00 Seybol d 2022-02-03 2022-02-03 Outpatient JAIME, SURENDRA DIAZ [place] [id number] [place] 08:30:00 08:30:00 Seybol d 2022-02-03 2022-02-03 Outpatient LAB90 CHEYENNE DIAZ [id number] [place] 08:00:00 08:00:00 Seybol d 2022-02-03 2022-02-03 Outpatient DAKSHA CHEYENNE DIAZ [id number] [place] 00:00:00 00:00:00 GWENDOLYN Seybol d 2022-02-03 2022-02-03 Outpatient LEONARD CHEY[place]NE DIAZ [id number] [place] 00:00:00 00:00:00 CAROLINE Seybol d 2022-01-30 2022-01-30 Outpatient LAB90 CHEYENNE DIAZ [id number] [place] 08:10:00 08:10:00 Seybol d 2022-01-28 2022-01-28 Orders Doctor MAYA 1.2.840.114 [id number] Univers 00:00:00 00:00:00 Only Unassigned, BA [facility].1.13.[address] [facility] 4.2.7.2.686 Sukhjinder as [id number] [address] 2022-01-27 2022-01-27 Outpatient DAKSHA CHE[place]NE DIAZ [id number] [place] 00:00:00 00:00:00 GWENDOLYN Seybol d 2022-01-26 2022-01-26 Outpatient SURENDRA SANDOVAL [place]NE DIAZ [id number] [place] 08:45:00 08:45:00 Seybol d 2022-01-26 2022-01-26 Outpatient LAB90 CHEYENNE DIAZ [id number] [place] 08:00:00 08:00:00 Seybol d 2022-01-26 2022-01-26 Outpatient LEONARD CHEY[place]NE DIAZ [id number] [place] 00:00:00 00:00:00 CAROLINE Seybol d 2022-01-23 2022-01-23 Outpatient LEONARD CHEY[place]NE DIAZ [id number] [place] 00:00:00 00:00:00 CAROLINE Seybol d 2022-01-21 2022-01-21 Outpatient CHEYENNE CROOKS [id number] [place] 00:00:00 00:00:00 GWENDOLYN Seybol d 2022-01-20 2022-01-20 Outpatient Tawana JACOB [facility] [id number] Univers 13:15:00 13:15:00 [facility] 2022-01-20 Outpatient LAB90 CHEYENNE DIAZ [id number] [place] 07:50:00 07:50:00 Seybol d 2022-01-19 2022-01-19 Outpatient LEONARD, CHEYENNE DIAZ [id number] [place] 00:00:00 00:00:00 CAROLINE Seybol d 2022-01-17 2022-01-17 Outpatient LAB47 CHEYENNE DIAZ [id number] [place] 08:50:00 08:50:00 Seybol d 2022-01-15 2022-01-15 Outpatient HUNDSoha, CHEYENNE DIAZ [id number] [place] 00:00:00 00:00:00 CAROLINE Seybol d 2022-01-15 2022-01-15 Outpatient HUNDSoha, CHEYENNE DIAZ [id number] [place] 00:00:00 00:00:00 CAROLINE Seybol d 2022-01-14 2022-01-14 Outpatient LAB90 CHEYENNE DIAZ [id number] [place] 10:00:00 10:00:00 Seybol d 2022-01-14 2022-01-14 Outpatient SURENDRA SANDOVAL [place]NE DIAZ [id number] [place] 09:30:00 09:30:00 Seybol d 2022-01-14 2022-01-14 Outpatient DIEGO LORENZO CHE[place]NE DIAZ [id number] [place] 00:00:00 00:00:00 Seybol d 2022-01-13 2022-01-13 Outpatient LAB90 CHEYENNE DIAZ [id number] [place] 14:45:00 14:45:00 Seybol d 2022-01-13 2022-01-13 Outpatient LEONARD CHEY[place]NE DIAZ [id number] [place] 14:00:00 14:00:00 CAROLINE Seybol d 2022-01-13 2022-01-13 Outpatient HUNDSoha, CHEYENNE DIAZ [id number] [place] 13:30:00 13:30:00 CAROLINE Seybol d 2022-01-13 2022-01-13 Outpatient HUNDSoha, CHEYENNE DIAZ [id number] [place] 00:00:00 00:00:00 CAROLINE Seybol d 2022-01-13 2022-01-13 [facility] 1.2.840.114 [id number] Univers 00:00:00 00:00:00 [facility] HEALTH 350.1.13.10 it y of EYE 4.2.7.2.686 [facility] [id number] [address] 2022-01-12 2022-01-12 Outpatient CHEYENNE VALLE [id number] [place] 00:00:00 00:00:00 CAROLINE Seybol d 2022-01-11 2022-01-11 Outpatient CHEYENNE VALLE [id number] [place] 00:00:00 00:00:00 CAROLINE Seybol d 2022-01-07 2022-01-07 Outpatient CHEYENNE BEDOYA [id number] [place] 10:00:00 10:00:00 AHMED Seybol d 2022-01-05 2022-01-05 Outpatient CHEYENNE VALLE [id number] [place] 10:30:00 10:30:00 CAROLINE Seybol d 2021-12-24 2021-12-24 Outpatient Tawana SAMS [facility] [id number] Univers 10:00:00 10:00:00 ED lundy [facility] 2021-12-03 2021-12-03 Outpatient CHEYENNE VALLE [id number] [place] 09:00:00 09:00:00 CAROLINE Seybol d 2021-12-02 2021-12-02 [facility] [id number] Univers 09:00:00 09:47:08 [facility] 2021-12-02 2021-12-02 Office [facility] 1.2.840.114 [id number] [facility] 09:00:00 09:47:08 Visit [facility] 350.1.13.10 it y of EYE 4.2.7.2.686 [facility] [id number] [address] 2021-12-02 2021-12-02 Outpatient CHEYENNE VALLE [id number] [place] 00:00:00 00:00:00 CAROLINE Seybol d 2021-12-02 2021-12-02 Orders Doctor MAYA 1.2.840.114 [id number] Univers 00:00:00 00:00:00 Only Unassigned, BA 350.1.13.10 ity of [place] [facility] 4.2.7.2.686 Sukhjinder as [phone] [place] [address] [place] 2021-12-01 2021-12-01 Outpatient LAB90 CHEYENNE DIAZ [id number] [place] 09:45:00 09:45:00 Seybol d 2021-12-01 2021-12-01 Outpatient THIAGOSoha CHEYENNE DIAZ [id number] [place] 09:00:00 09:00:00 CAROLINE Seybol d 2021-11-25 2021-11-25 Outpatient CHEYENNE VALLE [id number] [place] 09:00:00 09:00:00 CAROLINE Seybol d 2021-11-13 2021-11-13 RefROBSON Whitt 1.2.840.114 [id number] Univers 00:00:00 00:00:00 [facility] HEALTH 350.1.13.10 it [place] [id number] [address] 2021-10-21 2021-10-21 Grisel Jacob MDPALLAVI 1.2.840.114 [id number] Univers 00:00:00 00:00:00 [facility] HEALTH 350.1.13.10 [place] [id number] [address] 2021-10-15 2021-10-15 Outpatient AOSM AOSM [id number] [place] 00:00:00 00:00:00 [id number] [facility] 2021-10-08 2021-10-08 Outpatient R ROBSON JACOB [facility] [id number] Univers 09:30:00 10:36:53 HUMAIR ity of [facility] 2021-10-08 2021-10-08 Office ROBSON Jacob 1.2.840.114 [id number] Univers 09:30:00 10:36:53 Visit [employer] HEALTH 350.1.13.10 it y of EYE 4.2.7.2.686 [facility] [id number] [address] 2021-10-08 2021-10-08 Outpatient R NIDIA [facility] [id number] Univers 09:30:00 10:36:53 HUMAIR ity [facility] 2021-10-08 2021-10-08 Outpatient Tawana JACOB [facility] [id number] Univers 09:30:00 09:30:00 HUMAIR ity [facility] 2021-10-08 2021-10-08 Outpatient CHEYENNE BEDOYA [id number] [place] 08:00:00 08:00:00 AHMED Seybol d 2021-10-08 2021-10-08 Orders Doctor TREJO 1.2.840.114 [id number] Univers 00:00:00 00:00:00 Only Unassigned, BA 350.1.13.10 ity of [place] [facility] 4.2.7.2.686 Sukhjinder [id number] [place] [address] [place] 2021-10-03 2021-10-03 Outpatient LAB90 CHEYENNE DIAZ [id number] [place] 10:35:00 10:35:00 Seybol d 2021-09-30 2021-09-30 Grisel [facility] 1.2.840.114 [id number] Univers 00:00:00 00:00:00 [facility] 350.1.13.10 it y of EYE 4.2.7.2.686 [facility] [place] [id number] [address] 2021-09-25 2021-09-25 Outpatient LAB90 CHEYENNE DIAZ [id number] [place] 09:50:00 09:50:00 Seybol d 2021-09-25 2021-09-25 Office Surendra Gusman 1.2.840.114 [id number] [place] 09:00:00 09:15:00 Visit Evie He 350.1.13.13 Se ybold Somogyi 1.2.7.2.686 [id number] 0 2021-09-25 2021-09-25 Outpatient CHEYENNE GUSMAN [id number] [place] 00:00:00 00:00:00 EVIE Seybol d 2021-09-24 2021-09-24 Outpatient R NIDIA [facility] [id number] Univers 13:30:00 14:26:29 HUMAIR ity [facility] 2021-09-24 2021-09-24 Office Nidia [facility] 1.2.840.114 [id number] Univers 13:30:00 14:26:29 Visit [facility] 350.1.13.10 it y of EYE 4.2.7.2.686 [facility] [id number] [place] [address] [place] 2021-09-22 2021-09-22 Outpatient CHEYENNE VALLE [id number] [place] 10:00:00 10:00:00 CAROLINE almaraz 2021-09-22 2021-09-22 Orders Doctor TERJO 1.2.840.114 [id number] Univers 00:00:00 00:00:00 Only Unassigned, BA 350.1.13.10 ity of [place] [facility] 4.2.7.2.686 [facility] [id number] [place] [address] [place] 2021-09-17 2021-09-17 Outpatient LAB90 CHEYENNE DIAZ [id number] [place] 09:45:00 09:45:00 Thomas almaraz 2021-09-17 2021-09-17 Office Surendra Gusman 1.2.840.114 [id number] [place] 09:00:00 09:30:00 Visit Evie He 350.1.13.13 Se kristen [place] 1.2.7.2.686 [id number] 0 2021-09-12 2021-09-[address] [facility] [id number] 00:00:00 00:00:00 Requisitio [facility] 2021-09-12 2021-09-[address] [facility] [id number] 00:00:00 00:00:00 Requisitio [facility] 2021-09-11 2021-09-11 Outpatient CHEYENNE VALLE [id number] [place] 00:00:00 00:00:00 CAROLINE Grimesol awa 2021-09-05 2021-09-05 Outpatient R NIDIA [facility] [id number] Univers 13:30:00 14:26:19 HUMAIR ity [facility] 2021-09-05 2021-09-05 Office Nidia [facility] 1.2.840.114 [id number] Univers 13:30:00 14:26:19 Visit [facility] HEALTH 350.1.13.10 [place] [id number] [address] 2021-09-05 2021-09-05 [facility] [id number] Univers 13:30:00 13:30:00 HUMAIR ity [facility] 2021-08-27 2021-08-27 Patient Nidia [facility] 1.2.840.114 [id number] Univers 00:00:00 00:00:00 Secure Msg [employer] HEALTH 350.1.13.10 ity of EYE 4.2.7.2.686 [facility] [id number] [address] 2021-08-27 2021-08-27 Orders Doctor MAYA 1.2.840.114 [id number] Univers 00:00:00 00:00:00 Only Unassigned, BA 350.1.13.10 ity of [place] [facility] 4.2.7.2.686 Sukhjinder as [id number] [address] 2021-08-22 2021-08-22 Outpatient R JACOB [facility] [id number] Univers 14:00:00 14:54:52 HUMAIR ity [facility] 2021-08-22 2021-08-22 Office Nidia [facility] 1.2.840.114 [id number] Univers 14:00:00 14:54:52 Visit [employer] HEALTH 350.1.13.10 it y of EYE 4.2.7.2.686 [facility] [id number] [address] 2021-08-22 2021-08-22 [facility] [id number] Univers 14:00:00 14:00:00 HUMAIR ity [facility] 2021-08-12 2021-08-12 Outpatient CHEYENNE VALLE [id number] [place] 00:00:00 00:00:00 CAROLINE almaraz 2021-08-08 2021-08-08 Outpatient R NIDIA [facility] [id number] Univers 15:30:00 16:30:03 HUMAIR ity [facility] 2021-08-08 2021-08-08 Office [facility] 1.2.840.114 [id number] Univers 15:30:00 16:30:03 Visit [facility] HEALTH 350.1.13.10 it y of EYE 4.2.7.2.686 [facility] [place] [id number] [address] 2021-08-08 2021-08-08 Outpatient R NIDIA [facility] [id number] Univers 15:30:00 16:30:03 HUMAIR ity [facility] 2021-08-08 2021-08-08 Outpatient R NIDIA [facility] [id number] Univers 15:30:00 16:30:03 HUMAIR ity [facility] 2021-07-30 2021-07-30 Outpatient R NIDIA [facility] [id number] Univers 10:30:00 10:30:00 HUMAIR ity [facility] 2021-07-22 2021-07-22 Outpatient CHEYENNE VALLE [id number] [place] 13:30:00 13:30:00 CAROLINE almaraz 2021-07-15 2021-07-15 Outpatient Tawana JACOB [facility] [id number] Univers 13:00:00 13:57:05 HUMAIR ity [facility] 2021-07-15 2021-07-15 Outpatient R NIDIA [facility] [id number] Univers 13:00:00 13:57:05 HUMAIR ity [facility] 2021-07-15 2021-07-15 Office [facility] 1.2.840.114 [id number] Univers 13:00:00 13:57:05 Visit [facility] HEALTH 350.1.13.10 it y of EYE 4.2.7.2.686 [facility] [place] [id number] [address] 2021-07-15 2021-07-15 Outpatient CHEYENNE VLALE [id number] [place] 00:00:00 00:00:00 CAROLINE almaraz 2021-07-14 2021-07-14 Outpatient R NIDIA [facility] [id number] Univers 10:15:00 10:15:00 ALMAS lundy [facility] 2021-07-09 2021-07-09 Outpatient R ISIDORO [facility] [id number] Univers 15:15:00 16:31:00 ANDRÉS lundy [facility] 2021-07-09 2021-07-09 Office [facility] 1.2.840.114 [id number] Univers 15:15:00 16:31:00 Visit Andrés WEAVER 350.1.13.10 [place] [id number] [facility] AND [address] [facility] 2021-07-08 2021-07-08 Outpatient CHEYENNE VALLE [id number] [place] 00:00:00 00:00:00 CAROLINE almaraz 2021-07-08 2021-07-08 Transition FELIPA Jackson 1.2.840.114 [id number] Univers 00:00:00 00:00:00 of Manuel MANCUSO 350.1.13.10 i ty of [place] [id number] [facility] [address] 2021-07-01 2021-07-05 Inpatient X BROOKS GIRALDO [facility] TIFFANIE [id number] Univers 10:06:00 17:49:00 BROOKS GIRALDO [facility] 2021-07-01 2021-07-05 Inpatient X BROOKS GIRALDO [facility] TIFFANIE [id number] Univers 10:06:00 17:49:00 BROOKS GIRALDO [facility] 2021-07-01 2021-07-05 Hospital Jelly Alcantara 1.2.840.11 4 [id number] Univers 10:06:00 17:49:00 Encounter Herrera Yoo 350.1.1 3.10 ity of [facility] 4.2.7.2.686 [place] [id number] [facility] [address] 2021-07-02 2021-07-02 Outpatient DIANNA JOHNSON CHEYENNE DIAZ [id number] [place] 10:30:00 10:30:00 Seybol d 2021-07-02 2021-07-02 [facility] [id number] Univers 09:15:00 09:15:00 HUMAIR ity [facility] 2021-07-01 2021-07-01 [facility] [id number] Univers 09:00:00 09:30:19 HUMAIR ity [facility] 2021-07-01 2021-07-01 Office PHILOMENA Jacob 1.2.993.527 [id number] Univers 09:00:00 09:30:19 Visit [employer] Y 350.1.13.10 it y of NATIONAL 4.2.7.2.686 Sukhjinder as BANK [id number] [facility] BLDG. 136 Branch 2021-07-01 2021-07-01 Orders Doctor MAYA 1.2.840.114 [id number] Univers 00:00:00 00:00:00 Only Unassigned, BA 350.1.13.10 ity of [place] [facility] 4.2.7.2.686 Sukhjinder as [id number] [facility] 009 Branch 2021-06-30 2021-06-30 [facility] 1.2.605.777 [id number] Univers 00:00:00 00:00:00 [employer] HEALTH 350.1.13.10 it y [place] 4[place] [id number] [facility] 136 Branch 2021-06-27 2021-06-27 [facility] [id number] Univers 14:00:00 14:00:00 HUMAIR ity [facility] 2021-06-26 2021-06-26 Outpatient CHEYENNE DIAZ [id number] [place] 07:35:00 07:35:00 Seybol d 2021-06-26 2021-06-26 Outpatient CHEY[place]NE DIAZ [id number] [place] 07:05:00 07:05:00 Seybol d 2021-06-26 2021-06-26 Outpatient ELKE [place] DIAZ [id number] [place] 07:00:00 07:00:00 AHMED Seybol d 2021-06-26 2021-06-26 Outpatient MORRIS [place] DIAZ [id number] [place] 00:00:00 00:00:00 SHAHEEN vicente 2021-06-25 2021-06-25 Lab Keith, 1.2.840.1 [id number] Methodi 21:20:00 21:25:[address] Zander 3.430.2.7 Hospit a .3.821192 l .8 2021-06-25 2021-06-25 Office KORIN NATHAN 1.2.840.114 [id number] [place] 11:20:00 11:20:00 Visit [facility] 350.1.13.13 Se ybold 1.2.7.2.686 [id number] 0 2021-06-25 2021-06-25 Outpatient KYMBERLY CHEYENNE CHEYENNE [id number] [place] 00:00:00 00:00:00 ADRYENE Seybol d 2021-06-25 2021-06-25 Travel 1.2.840.1 1.2.078.610 [id number] Methodi 00:00:00 00:00:[address] 3.430.2.7 0.2.7.3.698 Ho spita .3.816915 084.8 l .8 2021-06-23 2021-06-23 Outpatient ELKE [place] DIAZ [id number] [place] 00:00:00 00:00:00 AHMED Seybol d 2021-06-20 2021-06-20 Telemedici AlexDianna KYLEE 1.2.840.11 [id number] [place] 10:15:00 10:26:50 ne T D 350.1.13.13 Se ybold 1.2.7.2.686 [id number] 5 2021-06-16 2021-06-17 Outpatient X JUAN [facility] [id number] Univers 06:11:00 14:35:00 FIDEL lundy [facility] 2021-06-16 2021-06-17 Emergency Guzman Oliva [facility] 1.2.840. 114 [id number] Univers 06:11:00 14:35:00 Fidel Garcia [place] [facility]13.[facility] 4.2.7.2.686 [facility] [id number] [place] [address] Branch 2021-06-16 2021-06-16 Outpatient DIANNA JOHNSON [id number] [place] 15:15:00 15:15:00 Seybol d 2021-06-16 2021-06-16 Outpatient CHEYENNE VALLE [id number] [place] 00:00:00 00:00:00 CAROLINE Seybol d 2021-06-14 2021-06-14 Outpatient CHEY[place]NE VALLE [id number] [place] 00:00:00 00:00:00 CAROLINE Seybol d 2021-06-07 2021-06-07 Outpatient CHEYENNE NATHAN [id number] [place] 00:00:00 00:00:00 RYDER Seybol d 2021-06-07 2021-06-07 Outpatient DIANNA JOHNSON [id number] [place] 00:00:00 00:00:00 Seybol d 2021-06-05 2021-06-05 Outpatient CHEYENNE BEDOYA [id number] [place] 09:02:00 09:02:00 AHMED Seybol d 2021-06-05 2021-06-05 Outpatient CHEY[place]NE DIAZ [id number] [place] 07:15:00 07:15:00 Seybol d 2021-06-05 2021-06-05 Outpatient CHEYENNE CACERES [id number] [place] 00:00:00 00:00:00 SHAHEEN Negro ld 2021-06-04 2021-06-04 Outpatient CHEYENNE BEDOYA [id number] [place] 00:00:00 00:00:00 AHMED Seybol d 2021-06-04 2021-06-04 Outpatient MONTAÑOCHEYENNE [id number] [place] 00:00:00 00:00:00 ADRYENE Seybol d 2021-06-03 2021-06-03 Outpatient JOVIMARY Wing [place] DIAZ [id number] [place] 10:30:00 10:30:00 Seybol d 2021-05-23 2021-05-23 Outpatient CHEY[place]NE DIAZ [id number] [place] 14:00:00 14:00:00 Seybol d 2021-05-23 2021-05-23 Outpatient LAB CHEYENNE DIAZ [id number] [place] 12:05:00 12:05:00 Seybol d 2021-05-23 2021-05-23 Office Diego Lorenzo 1.2.840.114 [id number] [place] 11:20:00 11:40:[address] [facility] 1.2.7.2.686 [id number] 2021-05-23 2021-05-23 Outpatient CHEYENNE NATHAN [id number] [place] 00:00:00 00:00:00 RYDER Seybol d 2021-05-21 2021-05-21 Outpatient CHEYENNE LEO [id number] [place] 00:00:00 00:00:00 AMARJIT Seybol d 2021-05-19 2021-05-19 Outpatient CHEY[place]NE LEO [id number] [place] 00:00:00 00:00:00 AMARJIT Seybol d 2021-05-16 2021-05-16 Outpatient CHEY[place]NE DIAZ [id number] [place] 11:45:00 11:45:00 Seybol d 2021-05-16 2021-05-16 Outpatient CHEYENNE CARRILLO [id number] [place] 11:45:00 11:45:00 NEY Seybol d 2021-05-16 2021-05-16 Office KORIN Nathan 1.2.840.114 [id number] [place] 11:00:00 11:20:00 Visit [facility] 350.1.13.13 Se ybold 1.2.7.2.686 [id number] 2021-05-16 2021-05-16 Outpatient CHEYENNE DIAZ [id number] [place] 11:05:00 11:05:00 Seybol d 2021-05-16 2021-05-16 Outpatient MARY ESPANA [id number] [place] 09:10:00 09:10:00 Seybol d 2021-05-12 2021-05-12 Outpatient DIANNA JOHNSON [id number] [place] 00:00:00 00:00:00 Seybol d 2021-05-11 2021-05-11 Outpatient DIANNA JOHNSON [id number] [place] 00:00:00 00:00:00 Seybol d 2021-05-08 2021-05-08 Outpatient CHEYENNE LEO [id number] [place] 09:30:00 09:30:00 AMARJIT Seybol d 2021-05-06 2021-05-06 Outpatient LAB90 [place]NE DIAZ [id number] [place] 10:55:00 10:55:00 Seybol d 2021-05-06 2021-05-06 Office Surendra Valle 1.2.840.114 [id number] [place] 10:00:00 10:30:00 Visit [facility] 350.1.13.13 Se ybold 1.2.7.2.686 [id number] 2021-05-05 2021-05-05 Outpatient CHEYENNE BEDOYA [id number] [place] 00:00:00 00:00:00 AHMED Seybol d 2021-05-05 2021-05-05 Outpatient CHEYENNE BEDOYA [id number] [place] 00:00:00 00:00:00 AHMED Seybol d 2021-05-05 2021-05-05 Outpatient MAIRA DIAZ [id number] [place] 00:00:00 00:00:00 MD RAJAN Seybol d 2021-05-05 2021-05-05 Outpatient DIANNA JOHNSON [id number] [place] 00:00:00 00:00:00 Seybol d 2021-05-02 2021-05-02 Office Dianna Johnson 1.2.840.114 [id number] [place] 10:15:00 10:30:00 Visit Ezio Almaraz 350.1.13.13 Se ybold 1.2.7.2.686 [id number] 2021-05-02 2021-05-02 Outpatient CHEYENNE WASHINGTON [id number] [place] 09:00:00 09:00:00 CARMENCITA Seybol d 2021-04-30 2021-04-30 Outpatient LAB45 CHE[place]NE DIAZ [id number] [place] 10:25:00 10:25:00 Seybol d 2021-04-30 2021-04-30 Office PAWEL Leo 1.2.024.742 [id number] [place] 08:45:00 09:15:00 Visit Amarjit CLARKE 350.1.13.13 Seybold DIAGNOSTI 1.2.7.2.686 [facility] [id number] 2021-04-30 2021-04-30 Outpatient CHEYENNE VALLE [id number] [place] 08:30:00 08:30:00 CAROLINE Seybol d 2021-04-25 2021-04-25 Inpatient Jack Velasquez [facility] [id number] [facility] 10:00:00 10:00:00 57 [facility] 2021-04-23 2021-04-23 Outpatient CHEYENNE GUEVARA [id number] [place] 09:00:00 09:00:00 JOSE Seybol d 2021-04-22 2021-04-22 Outpatient CHEY[place]NE DIAZ [id number] [place] 07:00:00 07:00:00 Seybol d 2021-04-22 2021-04-22 Outpatient CHEYENNE GUSMAN [id number] [place] 00:00:00 00:00:00 EVIE Seybol d 2021-04-22 2021-04-22 Outpatient CHEYENNE GUSMAN [id number] [place] 00:00:00 00:00:00 EVIE Seybol d 2021-04-18 2021-04-18 Outpatient CHEY[place]NE DIAZ [id number] [place] 14:00:00 14:00:00 Seybol d 2021-04-18 2021-04-18 Outpatient LEONARD [place] DIAZ [id number] [place] 00:00:00 00:00:00 CAROLINE Seybol d 2021-04-17 2021-04-17 Outpatient MontañoJack dejesus [facility] [id number] [facility] 14:14:00 14:14:00 21 [facility] 2021-04-15 2021-04-15 Outpatient MontañoMary Jane dejesusFormerly [facility] [id number] [facility] 15:51:00 15:51:00 75 [facility] 2021-04-14 2021-04-14 Outpatient THIAGOSoha CHEY[place]NE DIAZ [id number] [place] 00:00:00 00:00:00 CAROLINE Seybol d 2021-04-11 2021-04-11 Outpatient LAB90 CHEY[place]NE DIAZ [id number] [place] 10:20:00 10:20:00 Seybol d 2021-04-10 2021-04-10 Outpatient THIAGOSoha CHE[place]NE DIAZ [id number] [place] 00:00:00 00:00:00 CAROLINE Seybol d 2021-04-07 2021-04-07 Outpatient CHEY[place]NE DIAZ [id number] [place] 10:05:00 10:05:00 Seybol d 2021-04-07 2021-04-07 Outpatient CHEY[place]NE DIAZ [id number] [place] 10:00:00 10:00:00 Seybol d 2021-04-07 2021-04-07 Outpatient CHEYENNE DIAZ [id number] [place] 09:55:00 09:55:00 Seybol d 2021-04-07 2021-04-07 Outpatient CHEY[place]NE DIAZ [id number] [place] 09:50:00 09:50:00 Seybol d 2021-04-07 2021-04-07 Outpatient CHEYENNE DIAZ [id number] [place] 09:05:00 09:05:00 Seybol d 2021-04-07 2021-04-07 Office DIANNA JOHNSON 1.2.840.114 [id number] [place] 09:00:00 09:00:00 Visit MEDICAL & 350.1.13.13 Seybold DIAGNOSTI 1.2.7.2.686 [facility] [id number] 2021-04-04 2021-04-04 Outpatient CHEYENNE VALLE [id number] [place] 00:00:00 00:00:00 CAROLINE Seybol awa 2021-04-03 2021-04-03 Outpatient CHEYENNE LEO [id number] [place] 15:30:00 15:30:00 AMARJIT Seybol d 2021-04-02 2021-04-02 Outpatient LAB90 CHEY[place]NE DIAZ [id number] [place] 11:25:00 11:25:00 Seybol d 2021-04-02 2021-04-02 Office Surendra Valle 1.2.840.114 [id number] [place] 10:00:00 10:30:00 Visit Caroline He 350.1.13.13 Se ybrita 1.2.7.2.686 [id number] 2021-03-24 2021-03-28 Inpatient U [facility] [id number] Univers 19:41:00 16:22:00 [facility]-03-24 2021-03-28 [facility] Felicia Griffin 1.2.840. 114 [id number] Univers 19:41:00 16:22:00 [facility].2.7[facility] [place] [id number] [address] 2021-03-26 2021-03-26 Outpatient CHEYENNE VALLE [id number] [place] 00:00:00 00:00:00 CAROLINE Brittybol awa 2021-03-26 2021-03-26 Outpatient CHEYENNE VALLE [id number] [place] 00:00:00 00:00:00 CAROLINE Brittybol awa 2021-03-24 2021-03-24 Orders Doctor TREJO 1.2.840.114 [id number] Univers 00:00:00 00:00:00 Only Unassigned, BA 350.1.13.10 ity of [place] [facility] 4.2.7.2.686 Sukhjinder as [id number] [facility] [address] 2021-03-06 2021-03-06 Outpatient CHEYENNE VALLE [id number] [place] 00:00:00 00:00:00 CAROLINE almaraz 2021-03-05 2021-03-05 Office Surendra Valle 1.2.840.114 [id number] [place] 10:30:00 11:00:00 Visit Caroline He 350.1.13.13 Se kristen 1.2.7.2.686 [id number] 2021-03-05 2021-03-05 Outpatient CHEYENNE VALLE [id number] [place] 00:00:00 00:00:00 CAROLINE almaraz 2021-01-16 2021-01-16 Transition FELIPA Jackson 1.2.840.114 [id number] Univers 00:00:00 00:00:00 of Care Mickie MANCUSO 350.1.13.10 i ty of [place] [id number] [facility] [address] 2021-01-12 2021-01-15 [facility] Kim Ba [facility] 1.2.840. 114 [id number] Univers 20:00:00 13:44:00 Encounter Cici Watson 350.1.13.10 ity of [place] [facility] [id number] [facility] [address] 2021-01-12 2021-01-15 Inpatient X WALTER [facility] [id number] Univers 20:00:00 13:44:00 CICI lundy [facility] 2021-01-10 2021-01-10 Outpatient Tawana YOO [facility] [id number] Univers 14:10:00 14:10:00 HERRERA lundy [facility] 2021-01-10 2021-01-10 Imm/Inj Nurse, Adc Pob Immunization [facility] 1.2.840.114 [id number] Univers 14:04:54 14:05:05 Visit Herrera Yoo [place] 350.1.13 .10 ity [place] PROF[place] [id number] Me dical NAL 421 [facility] 2020-04-27 2020-04-27 Outpatient [facility] [id number] Univers 09:45:00 09:45:00 ity of [facility] 2020-04-06 2020-04-06 Outpatient R ELIDA, [facility] [id number] Univers 09:55:00 09:55:00 LOS ity of [facility] 2020-04-04 2020-04-04 Letter Doctor MAYA 1.2.840.114 [id number] Univers 00:00:00 00:00:00 (Out) Unassigned, BA 350.1.13.10 ity of [place] [facility] 4.2.7.2.686 Sukhjinder as [id number] [address] 2019-07-20 2019-07-20 Telephone [facility] 1.2.840.114 [id number] 00:00:00 00:00:00 LishaYouTube 350.1.13.10 Surgical 4.2.7.2.686 Specialti [id number] [address] 2019-07-20 2019-07-20 Telephone [facility] 1.2.840.114 [id number] Univers 00:00:00 00:00:00 LishaYouTube 350.1.13.10 it y of Surgical 4.2.7.2.686 Sukhjinder as Specialti [id number] Nj dical es 198 [facility] 2019-07-06 2019-07-06 Telephone [facility] 1.2.840.114 [id number] 00:00:00 00:00:00 Lisha L [facility] 350.1.13.10 Surgical 4.2.7.2.686 Specialti [id number] [address] 2019-07-06 2019-07-06 Telephone [facility] 1.2.840.114 [id number] Univers 00:00:00 00:00:00 Lisha L Health 350.1.13.10 it y of Surgical 4.2.7.2.686 Sukhjinder as Specialti [id number] Me dical es 198 [facility] 2019-07-04 2019-07-04 [facility]phone [facility] 1.2.840.114 [id number] 00:00:00 00:00:00 [facility]isha [facility] 350.1.13.10 Surgical 4.2.7.2.686 Specialti [id number] es [address] [place] 2019-07-04 2019-07-04 Telephone [facility] 1.2.840.114 [id number] Univers 00:00:00 00:00:00 [facility]isha [facility] 350.1.13.10 it y of Surgical 4.2.7.2.686 Sukhjinder as Specialti [id number] Me dical es 198 [facility] 2019-06-29 2019-06-29 Office [facility] 1.2.705.645 [id number] 08:56:15 09:22:49 Visit Lisha [facility] 350.1.13.10 Surgical 4.2.7.2.686 Specialti [id number] es [address] [place] 2019-06-29 2019-06-29 Office [facility] 1.2.703.020 [id number] [facility] 08:56:15 09:22:49 Visit Lisha [facility] 350.1.13.10 it y of Surgical 4.2.7.2.686 Sukhjinder as Specialti [id number] Me dical es 198 [facility] 2019-06-29 2019-06-29 [facility] [id number] [facility] 09:00:00 09:00:00 LISHA lundy [facility] 2019-05-02 2019-05-03 Inpatient [facility] [address] 07:39:00 19:00:00 [facility] 2019-04-11 2019-04-11 Outpatient [facility] [address] 11:28:00 14:50:00 MAYA [facility] 2013-12-08 2013-12-08 Outpatient TETE BRANTLEY Francine [id number] [facility] 10:34:26 10:34:26 HOMA Tucker 2013-11-28 2013-11-28 Outpatient TETE BRANTLEY [facility] [id number] [facility] 12:10:31 12:10:31 HOMA [facility] Medicin e Results Test Description Test Time Test Comments Results Result Comments Source AFB culture 2022-04-15 14:08:00 Test Item Value Reference Range Interpretation Comme nts AFB culture isolate No AFB isolated after 6 Specimen InformationSpecimen (test code = 543-9) weeks Source: Specimen Site: Left Eye - Corneal tissue [place] (test code = [place]) cup [facility] [id number] 13:34:00 Test Item Value Reference Range Interpretation Comments Eye culture No anaerobes Specimen isolate, isolated after InformationSp ecimen anaerobic (test 7 days. Source: [facility] Site: code = 1370) Left Eye - Pomerene eal tissue [place]IX (test code cup b = [place]) [facility], [id number] 13:34:00 Test Item Value Reference Range Interpretation Comments Eye culture No anaerobes Specimen isolate, isolated after InformationSp ecimen anaerobic (test 7 days. Source: [facility] Site: code = 1370) Left Eye - Pomerene eal tissue [place] (test code cup b = [place]IX) [facility] [id number] 20:42:41 Test Item Value Reference Range Interpretation Comments Case number (test code = [id number]) Surgical pathology See link below for report (test code = PDF Lab Report 2255) Result status (test code This is Final Report = [id number]) for [id number] [facility] [id number] 20:42:41 Test Item Value Reference Range Interpretation Comments Case number (test code = [id number]) Surgical pathology See link below for report (test code = PDF Lab Report 2255) Result status (test code This is Final Report = [id number]) for [id number] [facility] [id number] 16:08:54 Test Item Value Reference Range Interpretation Comments POC-Glucose Meter (test 126 mg/dL 70-110 H : TE STED AT code = 1538) [facility] [address] [place], [facility] 7703 0: Typing Bookkeeper/Techni alfred ID = [id number] for CHANCO, EDWARD Lab Interpretation (test Abnormal code = 30495-8) [facility]-Glucose [id number] 16:08:54 Test Item Value Reference Range Interpretation Comments POC-Glucose Meter (test 126 mg/dL 70-110 H : TE STED AT code = 1538) [facility] [address] [place] [address] 0: Typing Bookkeeper/Techni alfred ID = [id number] for CHANCO, EDWARD Lab Interpretation (test Abnormal code = 32620-7) [facility]-Glucose [id number] 16:08:54 Test Item Value Reference Range Interpretation Comments POC-Glucose Meter (test 126 mg/dL 70-110 H : TE STED AT code = 1538) [facility] [address] [place] [address] 0: Typing Bookkeeper/Techni alfred ID = [id number] for CHANCO, EDWARD Lab Interpretation (test Abnormal code = 30467-9) [facility]-Glucose [id number] 16:08:54 Test Item Value Reference Range Interpretation Comments POC-Glucose Meter (test 126 mg/dL 70-110 H : TE STED AT code = 1538) [facility] [address] [place] [address] 0: Typing Bookkeeper/Techni alfred ID = [id number] for CHANCO, EDWARD Lab Interpretation (test Abnormal code = 04954-8) [facility]-Glucose [id number] 16:08:54 Test Item Value Reference Range Interpretation Comments POC-Glucose Meter (test 126 mg/dL 70-110 H : TE STED AT code = 1538) [facility] [address] [place] [address] 0: Typing Bookkeeper/Techni alfred ID = [id number] for CHANCO, EDWARD Lab Interpretation (test Abnormal code = 81053-2) [facility]-Glucose [id number] 16:08:54 Test Item Value Reference Range Interpretation Comments POC-Glucose Meter (test 126 mg/dL 70-110 H : TE STED AT code = 1538) [facility] [address] [place] [address] 0: Typing Bookkeeper/Techni alfred ID = [id number] for CHANCO, EDWARD Lab Interpretation (test Abnormal code = 91371-2) [facility]ucose [id number] 16:08:54 Test Item Value Reference Range Interpretation Comments POC-Glucose Meter (test 126 mg/dL 70-110 H : TE STED AT code = 1538) [facility] [address] [place] [address] 0: Typing Bookkeeper/Techni alfred ID = [id number] for CHANCO, EDWARD Lab Interpretation (test Abnormal code = 06611-5) [facility]-Glucose [id number] 16:08:54 Test Item Value Reference Range Interpretation Comments POC-Glucose Meter (test 126 mg/dL 70-110 H : TE STED AT code = 1538) [facility] [address] [place] [address] 0: Typing Bookkeeper/Techni alfred ID = [id number] for CHANCO, EDWARD Lab Interpretation (test Abnormal code = 12883-9) [facility] [id number] 16:08:54 Test Item Value Reference Range Interpretation Comments POC-Glucose Meter (test 126 mg/dL 70-110 H : TE STED AT code = 1538) [facility] [address] [place] [place] [address] 0: Typing Bookkeeper/Techni alfred ID = [id number] for CHANCO, EDWARD Lab Interpretation (test Abnormal code = 19020-6) [facility] [id number] 16:08:54 Test Item Value Reference Range Interpretation Comments POC-Glucose Meter (test 126 mg/dL 70-110 H : TE STED AT code = 1538) [facility] [address] [place] [address] 0: Typing Bookkeeper/Techni alfred ID = [id number] for CHANCO, EDWARD Lab Interpretation (test Abnormal code = 66716-0) [facility]-Glucose [id number] 16:08:54 Test Item Value Reference Range Interpretation Comments POC-Glucose Meter (test 126 mg/dL 70-110 H : TE STED AT code = 1538) [facility] [address] [place] [address] 0: Typing Bookkeeper/Techni alfred ID = [id number] for CHANCO, EDWARD Lab Interpretation (test Abnormal code = 61919-5) [facility] [id number] 16:08:54 Test Item Value Reference Range Interpretation Comments POC-Glucose Meter (test 126 mg/dL 70-110 H : TE STED AT code = 1538) [facility] [address] [place] [address] 0: Typing Bookkeeper/Techni alfred ID = [id number] for CHANCO, EDWARD Lab Interpretation (test Abnormal code = 46996-4) [facility] [id number] 16:08:54 Test Item Value Reference Range Interpretation Comments POC-Glucose Meter (test 126 mg/dL 70-110 H : TE STED AT code = 1538) [facility] [address] [place] [place] [address] 0: Typing Bookkeeper/Techni alfred ID = [id number] for CHANCO, EDWARD Lab Interpretation (test Abnormal code = 41487-6) [facility] [id number] 16:08:54 Test Item Value Reference Range Interpretation Comments POC-Glucose Meter (test 126 mg/dL 70-110 H : TE STED AT code = 1538) [facility] [address] [place] [place] [address] 0: Typing Bookkeeper/Techni alfred ID = [id number] for CHANCO, EDWARD Lab Interpretation (test Abnormal code = 22119-0) [facility] [id number] 16:08:54 Test Item Value Reference Range Interpretation Comments POC-Glucose Meter (test 126 mg/dL 70-110 H : TE STED AT code = 1538) [facility] [address] [place] [address] 0: Typing Bookkeeper/Techni alfred ID = [id number] for CHANCO, EDWARD Lab Interpretation (test Abnormal code = 60265-1) [facility]-GLUCOSE [id number] 16:08:54 Test Item Value Reference Range Interpretation Comments POC-GLUCOSE METER 126 mg/dL 70-110 H : TESTED A T [facility] (test code = [address] [facility]) [place] [address] 0: Typing Bookkeeper/Techni alfred ID = [id number] for NEFTALI THOMAS POCT-GLUCOSE [id number] 12:10:55 Test Item Value Reference Range Interpretation Comments POC-GLUCOSE METER 97 mg/dL 70-110 : TESTED A T [facility] (BEAKER) (test code = [address], BLDG B 1538) [place] [address] 0: Typing Bookkeeper/Techni alfred ID = [id number] for Patsy Diehl Hepatitis B surface [id number] 14:53:53 Test Item Value Reference Range Interpretation Comments Hep B S Ab (test code <8.0 See_Comment [Auto mated = 69035-9) message] The system which generated this result transmit senthil reference range : <8.0 mIU/mL. Th e reference range was not used to interpret this result as normal/abnormal . PHOENIX (test code = PHOENIX) Typing Bookkeeper ID - BS Lab Interpretation Normal (test code = 50614-9) [facility] B surface [id number] 14:53:53 Test Item Value Reference Range Interpretation Comments Hep B S Ab (test code <8.0 See_Comment [Auto mated = 81237-2) message] The system which generated this result transmit senthil reference range : <8.0 mIU/mL. Th e reference range was not used to interpret this result as normal/abnormal . [place]IX (test code = PHOENIX) Typing Bookkeeper ID - BS Lab Interpretation Normal (test code = 13376-0) [facility] [id number] 14:53:53 Test Item Value Reference Range Interpretation Comments Hep B S Ab (test code <8.0 See_Comment [Auto mated = 63421-1) message] The system which generated this result transmit senthil reference range : <8.0 mIU/mL. Th e reference range was not used to interpret this result as normal/abnormal . PH[place]ENIX (test code = PHOENIX) Typing Bookkeeper ID - BS Lab Interpretation Normal (test code = 88504-3) [facility] [id number] 14:53:53 Test Item Value Reference Range Interpretation Comments Hep B S Ab (test code <8.0 See_Comment [Auto mated = 38442-6) message] The system which generated this result transmit senthil reference range : <8.0 mIU/mL. Th e reference range was not used to interpret this result as normal/abnormal . PHOENIX (test code = PHOENIX) Typing Bookkeeper ID - BS Lab Interpretation Normal (test code = 60601-9) [facility] B surface [id number] 14:53:53 Test Item Value Reference Range Interpretation Comments Hep B S Ab (test code <8.0 See_Comment [Auto mated = 64441-4) message] The system which generated this result transmit senthil reference range : <8.0 mIU/mL. Th e reference range was not used to interpret this result as normal/abnormal . PHOENIX (test code = PHOENIX) Typing Bookkeeper ID - BS Lab Interpretation Normal (test code = 88271-3) [facility] B surface [id number] 14:53:53 Test Item Value Reference Range Interpretation Comments Hep B S Ab (test code <8.0 See_Comment [Auto mated = 06608-4) message] The system which generated this result transmit senthil reference range : <8.0 mIU/mL. Th e reference range was not used to interpret this result as normal/abnormal . PHOENIX (test code = PHOENIX) Typing Bookkeeper ID - BS Lab Interpretation Normal (test code = 04450-2) [facility] B surface [id number] 14:53:53 Test Item Value Reference Range Interpretation Comments Hep B S Ab (test code <8.0 See_Comment [Auto mated = 10494-8) message] The system which generated this result transmit senthil reference range : <8.0 mIU/mL. Th e reference range was not used to interpret this result as normal/abnormal . PHOENIX (test code = PHOENIX) Typing Bookkeeper ID - BS Lab Interpretation Normal (test code = 15470-9) [facility] B surface [id number] 14:53:53 Test Item Value Reference Range Interpretation Comments Hep B S Ab (test code <8.0 See_Comment [Auto mated = 58068-9) message] The system which generated this result transmit senthil reference range : <8.0 mIU/mL. Th e reference range was not used to interpret this result as normal/abnormal . PHOENIX (test code = PHOENIX) Typing Bookkeeper ID - BS Lab Interpretation Normal (test code = 84557-5) [facility] B surface kgudqkae1831-07-03 14:53:53 Test Item Value Reference Range Interpretation Comments Hep B S Ab (test code <8.0 See_Comment [Auto mated = 70113-2) message] The system which generated this result transmit senthil reference range : <8.0 mIU/mL. Th e reference range was not used to interpret this result as normal/abnormal . PHOENIX (test code = PHOENIX) Typing Bookkeeper ID - BS Lab Interpretation Normal (test code = 60444-0) [facility] B surface [id number] 14:53:53 Test Item Value Reference Range Interpretation Comments Hep B S Ab (test code <8.0 See_Comment [Auto mated = 41540-8) message] The system which generated this result transmit senthil reference range : <8.0 mIU/mL. Th e reference range was not used to interpret this result as normal/abnormal . [place]IX (test code = PHOENIX) Typing Bookkeeper ID - BS Lab Interpretation Normal (test code = 42540-1) [facility] B surface ezhafglk8192-11-21 14:53:53 Test Item Value Reference Range Interpretation Comments Hep B S Ab (test code <8.0 See_Comment [Auto mated = 67563-5) message] The system which generated this result transmit senthil reference range : <8.0 mIU/mL. Th e reference range was not used to interpret this result as normal/abnormal . PHOENIX (test code = PHOENIX) Typing Bookkeeper ID - BS Lab Interpretation Normal (test code = 79475-5) [facility] B surface [id number] 14:53:53 Test Item Value Reference Range Interpretation Comments Hep B S Ab (test code <8.0 See_Comment [Auto mated = 59598-1) message] The system which generated this result transmit senthil reference range : <8.0 mIU/mL. Th e reference range was not used to interpret this result as normal/abnormal . PHOENIX (test code = PHOENIX) Typing Bookkeeper ID - BS Lab Interpretation Normal (test code = 39655-9) [facility] B surface [id number] 14:53:53 Test Item Value Reference Range Interpretation Comments Hep B S Ab (test code See_Comment [Auto mated = 18502-7) message] The system which generated this result transmit senthil reference range : <8.0 mIU/mL. Th e reference range was not used to interpret this result as normal/abnormal . PHOENIX (test code = PHOENIX) Typing Bookkeeper ID - BS Lab Interpretation Normal (test code = 97792-7) [facility] B surface [id number] 14:53:53 Test Item Value Reference Range Interpretation Comments Hep B S Ab (test code See_Comment [Auto mated = 47098-1) message] The system which generated this result transmit senthil reference range : <8.0 mIU/mL. Th e reference range was not used to interpret this result as normal/abnormal . PHOENIX (test code = PHOENIX) Typing Bookkeeper ID - BS Lab Interpretation Normal (test code = 72474-6) [facility] B surface [id number] 14:53:53 Test Item Value Reference Range Interpretation Comments Hep B S Ab (test code See_Comment [Auto mated = 84443-1) message] The system which generated this result transmit senthil reference range : <8.0 mIU/mL. Th e reference range was not used to interpret this result as normal/abnormal . PHOENIX (test code = PHOENIX) Typing Bookkeeper ID - BS Lab Interpretation Normal (test code = 77447-9) [facility] B surface [id number] 14:53:53 Test Item Value Reference Range Interpretation Comments Hep B S Ab (test code <8.0 See_Comment [Auto mated = 07956-6) message] The system which generated this result transmit senthil reference range : <8.0 mIU/mL. Th e reference range was not used to interpret this result as normal/abnormal . PHOENIX (test code = PHOENIX) Typing Bookkeeper ID - BS Lab Interpretation Normal (test code = 75533-0) [facility] B surface [id number] 14:53:53 Test Item Value Reference Range Interpretation Comments Hep B S Ab (test code See_Comment [Auto mated = 97338-7) message] The system which generated this result transmit senthil reference range : <8.0 mIU/mL. Th e reference range was not used to interpret this result as normal/abnormal . PHOENIX (test code = PHOENIX) Typing Bookkeeper ID - BS Lab Interpretation Normal (test code = 52588-3) [facility] [id number] 14:53:53 Test Item Value Reference Range Interpretation Comments HEPATITIS B SURFACE ANTIBODY < mIU/mL <8.0 (BEAKER) (test code = 647) Typing Bookkeeper ID - BSHepatitis B surface [id number] 14:53:32 Test Item Value Reference Range Interpretation Comments Hepatitis B surface Nonreactive Nonreactive antigen (test code = 5195-3) PHOENIX (test code = PHOENIX) Specimen is considered negative for HBsAg. Lab Interpretation (test Normal code = 33248-4) [facility] [id number] 14:53:32 Test Item Value Reference Range Interpretation Comments Hepatitis B surface Nonreactive Nonreactive antigen (test code = 5195-3) PHOENIX (test code = PHOENIX) Specimen is considered negative for HBsAg. Lab Interpretation (test Normal code = 52306-7) [facility], [id number] 14:53:32 Test Item Value Reference Range Interpretation Comments Hep B Core Total Ab (test Nonreactive Nonreactive code = 85908-9) PHOENIX (test code = PHOENIX) Typing Bookkeeper ID - BS Lab Interpretation (test Normal code = 61276-4) [facility], [id number] 14:53:32 Test Item Value Reference Range Interpretation Comments Hep B Core Total Ab (test Nonreactive Nonreactive code = 28126-4) PHOENIX (test code = PHOENIX) Typing Bookkeeper ID - BS Lab Interpretation (test Normal code = 02099-9) [facility] [id number] 14:53:32 Test Item Value Reference Range Interpretation Comments Hepatitis B surface Nonreactive Nonreactive antigen (test code = 5195-3) PHOENIX (test code = PHOENIX) Specimen is considered negative for HBsAg. Lab Interpretation (test Normal code = 24158-1) [facility], [id number] 14:53:32 Test Item Value Reference Range Interpretation Comments Hep B Core Total Ab (test Nonreactive Nonreactive code = 01779-1) PHOENIX (test code = PHOENIX) Typing Bookkeeper ID - BS Lab Interpretation (test Normal code = 18028-4) [facility] [id number] 14:53:32 Test Item Value Reference Range Interpretation Comments Hepatitis B surface Nonreactive Nonreactive antigen (test code = 5195-3) PHOENIX (test code = PHOENIX) Specimen is considered negative for HBsAg. Lab Interpretation (test Normal code = 42674-4) [facility], [id number] 14:53:32 Test Item Value Reference Range Interpretation Comments Hep B Core Total Ab (test Nonreactive Nonreactive code = 21710-9) PHOENIX (test code = PHOENIX) Typing Bookkeeper ID - BS Lab Interpretation (test Normal code = 06581-1) [facility] [id number] 14:53:32 Test Item Value Reference Range Interpretation Comments Hepatitis B surface Nonreactive Nonreactive antigen (test code = 5195-3) PHOENIX (test code = PHOENIX) Specimen is considered negative for HBsAg. Lab Interpretation (test Normal code = 42058-4) [facility], [id number] 14:53:32 Test Item Value Reference Range Interpretation Comments Hep B Core Total Ab (test Nonreactive Nonreactive code = 31854-9) PHOENIX (test code = PHOENIX) Typing Bookkeeper ID - BS Lab Interpretation (test Normal code = 48174-0) [facility] [id number] 14:53:32 Test Item Value Reference Range Interpretation Comments Hepatitis B surface Nonreactive Nonreactive antigen (test code = 5195-3) PHOENIX (test code = PHOENIX) Specimen is considered negative for HBsAg. Lab Interpretation (test Normal code = 11696-0) [facility], [id number] 14:53:32 Test Item Value Reference Range Interpretation Comments Hep B Core Total Ab (test Nonreactive Nonreactive code = 10263-3) PHOENIX (test code = PHOENIX) Typing Bookkeeper ID - BS Lab Interpretation (test Normal code = 21523-8) [facility] [id number] 14:53:32 Test Item Value Reference Range Interpretation Comments Hepatitis B surface Nonreactive Nonreactive antigen (test code = 5195-3) PHOENIX (test code = PHOENIX) Specimen is considered negative for HBsAg. Lab Interpretation (test Normal code = 33540-9) [facility] [id number] 14:53:32 Test Item Value Reference Range Interpretation Comments Hepatitis B surface Nonreactive Nonreactive antigen (test code = 5195-3) PHOENIX (test code = PHOENIX) Specimen is considered negative for HBsAg. Lab Interpretation (test Normal code = 71042-0) [facility], [id number] 14:53:32 Test Item Value Reference Range Interpretation Comments Hep B Core Total Ab (test Nonreactive Nonreactive code = 85306-4) PHOENIX (test code = PHOENIX) Typing Bookkeeper ID - BS Lab Interpretation (test Normal code = 29927-7) [facility], [id number] 14:53:32 Test Item Value Reference Range Interpretation Comments Hep B Core Total Ab (test Nonreactive Nonreactive code = 47449-1) PHOENIX (test code = PHOENIX) Typing Bookkeeper ID - BS Lab Interpretation (test Normal code = 50582-9) [facility] [id number] 14:53:32 Test Item Value Reference Range Interpretation Comments Hepatitis B surface Nonreactive Nonreactive antigen (test code = 5195-3) PHOENIX (test code = PHOENIX) Specimen is considered negative for HBsAg. Lab Interpretation (test Normal code = 61853-7) [facility], [id number] 14:53:32 Test Item Value Reference Range Interpretation Comments Hep B Core Total Ab (test Nonreactive Nonreactive code = 45949-1) PHOENIX (test code = PHOENIX) Typing Bookkeeper ID - BS Lab Interpretation (test Normal code = 02258-1) [facility] [id number] 14:53:32 Test Item Value Reference Range Interpretation Comments Hepatitis B surface Nonreactive Nonreactive antigen (test code = 5195-3) PHOENIX (test code = PHOENIX) Specimen is considered negative for HBsAg. Lab Interpretation (test Normal code = 03948-0) [facility], [id number] 14:53:32 Test Item Value Reference Range Interpretation Comments Hep B Core Total Ab (test Nonreactive Nonreactive code = 84006-3) PHOENIX (test code = PHOENIX) Typing Bookkeeper ID - BS Lab Interpretation (test Normal code = 11344-5) [facility] [id number] 14:53:32 Test Item Value Reference Range Interpretation Comments Hepatitis B surface Nonreactive Nonreactive antigen (test code = 5195-3) PHOENIX (test code = PHOENIX) Specimen is considered negative for HBsAg. Lab Interpretation (test Normal code = 93245-7) [facility], [id number] 14:53:32 Test Item Value Reference Range Interpretation Comments Hep B Core Total Ab (test Nonreactive Nonreactive code = 00474-4) PHOENIX (test code = PHOENIX) Typing Bookkeeper ID - BS Lab Interpretation (test Normal code = 01844-7) [facility] [id number] 14:53:32 Test Item Value Reference Range Interpretation Comments Hepatitis B surface Nonreactive Nonreactive antigen (test code = 5195-3) PHOENIX (test code = PHOENIX) Specimen is considered negative for HBsAg. Lab Interpretation (test Normal code = 49640-2) [facility], [id number] 14:53:32 Test Item Value Reference Range Interpretation Comments Hep B Core Total Ab (test Nonreactive Nonreactive code = 64090-6) PHOENIX (test code = PHOENIX) Typing Bookkeeper ID - BS Lab Interpretation (test Normal code = 88432-1) [facility] [id number] 14:53:32 Test Item Value Reference Range Interpretation Comments Hepatitis B surface Nonreactive Nonreactive antigen (test code = 5195-3) PHOENIX (test code = PHOENIX) Specimen is considered negative for HBsAg. Lab Interpretation (test Normal code = 59053-9) [facility], [id number] 14:53:32 Test Item Value Reference Range Interpretation Comments Hep B Core Total Ab (test Nonreactive Nonreactive code = 76313-9) PHOENIX (test code = PHOENIX) Typing Bookkeeper ID - BS Lab Interpretation (test Normal code = 67021-4) [facility] iahwawz7051-87-21 14:53:32 Test Item Value Reference Range Interpretation Comments Hepatitis B surface Nonreactive Nonreactive antigen (test code = 5195-3) PHOENIX (test code = PHOENIX) Specimen is considered negative for HBsAg. Lab Interpretation (test Normal code = 03185-3) [facility], [id number] 14:53:32 Test Item Value Reference Range Interpretation Comments Hep B Core Total Ab (test Nonreactive Nonreactive code = 56961-1) PHOENIX (test code = PHOENIX) Typing Bookkeeper ID - BS Lab Interpretation (test Normal code = 90385-3) [facility] [id number] 14:53:32 Test Item Value Reference Range Interpretation Comments Hepatitis B surface Nonreactive Nonreactive antigen (test code = 5195-3) PHOENIX (test code = PHOENIX) Specimen is considered negative for HBsAg. Lab Interpretation (test Normal code = 35712-0) [facility], [id number] 14:53:32 Test Item Value Reference Range Interpretation Comments Hep B Core Total Ab (test Nonreactive Nonreactive code = 65402-6) PHOENIX (test code = PHOENIX) Typing Bookkeeper ID - BS Lab Interpretation (test Normal code = 69558-6) [facility] [id number] 14:53:32 Test Item Value Reference Range Interpretation Comments Hepatitis B surface Nonreactive Nonreactive antigen (test code = 5195-3) PHOENIX (test code = PHOENIX) Specimen is considered negative for HBsAg. Lab Interpretation (test Normal code = 73919-5) [facility], [id number] 14:53:32 Test Item Value Reference Range Interpretation Comments Hep B Core Total Ab (test Nonreactive Nonreactive code = 42827-1) PHOENIX (test code = PHOENIX) Typing Bookkeeper ID - BS Lab Interpretation (test Normal code = 87150-3) [facility] [id number] 14:53:32 Test Item Value Reference Range Interpretation Comments Hepatitis B surface Nonreactive Nonreactive antigen (test code = 5195-3) PHOENIX (test code = PHOENIX) Specimen is considered negative for HBsAg. Lab Interpretation (test Normal code = 09934-8) [facility], [id number] 14:53:32 Test Item Value Reference Range Interpretation Comments Hep B Core Total Ab (test Nonreactive Nonreactive code = 05012-0) PHOENIX (test code = PHOENIX) Typing Bookkeeper ID - BS Lab Interpretation (test Normal code = 61606-7) [facility] [id number] 14:53:32 Test Item Value Reference Range Interpretation Comments HEPATITIS B SURFACE ANTIGEN (2) Nonreactive Nonreactive (BEAKER) (test code = 2585) Specimen is considered negative for HBsAg.HEPATITIS B CORE ANTIBODY, TOTAL 2021-09-12 14:53:32 Test Item Value Reference Range Interpretation Comments HEPATITIS B CORE TOTAL ANTIBODY Nonreactive Nonreactive (BEAKER) (test code = 497) Typing Bookkeeper ID - BSFungus hkgysoo9104-07-55 19:50:00 Test Item Value Reference Interpretation Comments Range Fungus culture Fusarium A Specimen isolate (test code species Informati onSpecimen = 580-1) Source: [facility] Site: Left Eye PHOENIX (test code = ONLY CXFUN IS PHOENIX) REQUESTED ON REQ Lab Interpretation Abnormal (test code = 98359-7) [facility] [id number] 19:50:00 Test Item Value Reference Interpretation Comments Range Fungus culture Fusarium A Specimen isolate (test code species Informati onSpecimen = 580-1) Source: [facility] Site: Left Eye PHOENIX (test code = ONLY CXFUN IS PHOENIX) REQUESTED ON REQ Lab Interpretation Abnormal (test code = 25233-3) [facility] [id number] 19:50:00 Test Item Value Reference Interpretation Comments Range Fungus culture Fusarium A Specimen isolate (test code species Informati onSpecimen = 580-1) Source: [facility] Site: Left Eye PHOENIX (test code = ONLY CXFUN IS PHOENIX) REQUESTED ON REQ Lab Interpretation Abnormal (test code = 78331-3) [facility] [id number] 19:50:00 Test Item Value Reference Interpretation Comments Range Fungus culture Fusarium A Specimen isolate (test code species Informati onSpecimen = 580-1) Source: [facility] Site: Left Eye PHOENIX (test code = ONLY CXFUN IS PHOENIX) REQUESTED ON REQ Lab Interpretation Abnormal (test code = 85565-7) [facility] [id number] 16:56:00 Test Item Value Reference Range Interpretation Comments SPECIFIC GRAVITY 1.005-1.030 (test code = 5811-5) PH (test code = 5.0-7.5 5803-2) URINE-COLOR (test Yellow Yellow code = 5778-6) APPEARANCE (test code Clear Clear = 5767-9) WBC ESTERASE (test 1+ Negative A code = 5799-2) PROTEIN (test code = Negative Negative/Trace 78862-7) GLUCOSE (test code = Negative Negative 87856-4) KETONES (test code = Negative Negative 2514-8) OCCULT BLOOD (test Negative Negative code = 5794-3) BILIRUBIN (test code Negative Negative = 5770-3) UROBILINOGEN,SEMI-QN 0.2 mg/dL 0.2-1.0 (test code = 04559-7) NITRITE, URINE (test Negative Negative code = 5802-4) MICROSCOPIC See below: Microscopic was EXAMINATION (test indicated and was code = 80897-1) performed. PHOENIX (test code = PHOENIX) [facility] results reported in Eastern Time. [facility] Clinical Information:SRC :Urine*Urine ?[facility] Source of Specimen:Urine* Urine Lab Interpretation Abnormal (test code = 16905-3) [place] SeyboldMICROSCOPIC [id number] 16:56:00 Test Item Value Reference Range Interpretation Comments WBC (test code = 11-30 See_Comment A [Automated 5821-4) message] The system which generated this result transmit senthil reference range : 0 - 5 /hpf. The reference range was not used to interpret this result as normal/abnormal . RBC (test code = None seen See_Comment [Automated 33399-9) message] The system which generated this result [...] code = None seen None seen /lpf 08494-3) BACTERIA (test code = None seen None seen/Few 5769-5) PHOENIX (test code = PHOENIX) [facility] results reported in Eastern Time. [facility] Clinical Information:SRC :Urine*Urine ?[facility] Source of Specimen:Urine* Urine Lab Interpretation Abnormal (test code = 45720-5) [place] CooperGNESIUM, [id number] 14:37:00 Test Item Value Reference Range Interpretation Comments MAGNESIUM, SERUM 1.9 mg/dL 1.6-2.3 (test code = 40768-2) PHOENIX (test code = PHOENIX) [facility] results reported in Eastern Time. [facility] Clinical Information:[facility] Source of Specimen:Blood, venous*Venipunc [place] BradyPHOSPHORUS, [id number] 14:37:00 Test Item Value Reference Range Interpretation [...] AM 70 mL/min/1.73 >59 (test code = 89954-2) EGFR IF AFRICN AM 81 mL/min/1.73 >59 In acc ordance with (test code = recommendations from 98892-4) the NKF-ASN Tas k force, ?[facility] rp [...] 20 mmol/L 20-29 TOTAL (test code = 2027-9) CALCIUM, SERUM (test 9.4 mg/dL 8.7-10.2 code = 10101-0) PROTEIN, TOTAL, 7.1 g/dL 6.0-8.5 SERUM (test code = 2885-2) ALBUMIN, SERUM (test 4.7 g/dL 4.0-5.0 code = 1751-7) GLOBULIN, TOTAL 2.4 g/dL 1.5-4.5 (test code = 42485-5) A/G RATIO (test code 1.2-2.2 = 1759-0) [...] [Automated message] code = 1920-8) The system Cynny generated this result transmitted ref erence range: 0 - 40 I U/L. The reference r reece was not used to interpret this result as normal/abnor mal. ALT (SGPT) (test See_Comment [Automated message] code = 1742-6) The system Cynny generated this result transmitted ref erence range: 0 - 44 I U/L. The reference r reece was not used to interpret this result as normal/abnor mal. PHOENIX (test code = [facility] PHOENIX) results reported in Eastern Time. [facility] Clinical Information:SR C:Blood, venous*Venipun c ture ? [facility] Source of Specimen:Blood , venous*Venipun c Lab Interpretation Abnormal (test code = 73918-3) Cheyenne Brady
[2022-07-19] MEDS ORDERED: NA CHLORIDE 0.9% 500 ML ONE ×2 (00:06→00:11)
[2022-07-19 00:08] LABS: Absolute Lymphocytes (CBC) 1.3 K/uL (0.7-4.9); Hematocrit 27.1 % (39.6-49.0); MCV 97.2 fL (80-100); MPV 6.7 fL (7.6-11.3); RBC Red Blood Cell Count 2.79 M/uL (4.33-5.43)
[2022-07-19 00:24] LABS: Albumin 2.6 g/dL (3.4-5.0); Bilirubin Total 0.2 mg/dL (0.2-1.0); Potassium 3.7 mEq/L (3.5-5.1); Protein, Total 6.8 g/dL (6.4-8.2)
[2022-07-19 02:27] LABS: Specific Gravity 1.015 (1.005-1.030); Urine Bacteria <20 /HPF (<20); Urine Bilirubin NEGATIVE (Negative); Urine Blood Negative (Negative); Urine Clarity Clear (Clear); Urine Color Light-Yellow (Yellow); Urine Glucose NEGATIVE (Negative); Urine Mucus Slight /HPF (None Seen); Urine Protein TRACE (Negative); Urine RBC <5 /HPF (None Seen); Urine Urobilinogen Normal (Normal)
--- NOTE | 2022-07-19 02:30 | ER ---
Nurse's Notes [facility] Name: Rhett Ayers Age: 46 yrs Sex: Male : 1975 Arrival Date: 07/18/2022 Time: 23:26 Bed 6 Private MD: Diagnosis: Diarrhea, unspecified Presentation: 07/18 23:35 Chief complaint: Patient states: dehydration due from diarrhea, left flank pain of 6 pf1 and concerned for kidney function with elevated potassium,onset Wednesday. Patient stated had diarrhea that started on Wednesday, lasted for 2 days. Coronavirus screen: Vaccine status: Patient reports receiving the 2nd dose of the covid vaccine. 3 doses of Moderna Client denies travel out of the [place] in the last 14 days. Client presents with at least one sign or symptom that may indicate coronavirus-19. Ebola Screen: Patient negative for fever greater than or equal to 101.5 degrees Fahrenheit, and additional compatible Ebola Virus Disease symptoms. Initial Sepsis Screen: Does the patient meet any 2 criteria? No. Patient's initial sepsis screen is negative. Does the patient have a suspected source of infection? No. Patient's initial sepsis screen is negative. Risk Assessment: Do you want to hurt yourself or someone else?. 23:35 Method Of Arrival: Ambulatory pf1 23:35 Acuity: SANTIAGO 3 pf1 07/19 00:00 Onset of symptoms was July 19, 2022. rv Historical: - Home Meds: 07/18 23:42 Flexeril Oral [Active]; gabapentin oral [Active]; Hydrocodone [Active]; Morphine Oral pf1 [Active]; carvedilol 12.5 mg oral tablet 2 times per day [Active]; doxepin 75 mg Oral capsule 1 cap once [Active]; fluoxetine 40 mg Oral capsule 1 cap once [Active]; fluorometholone 0.1 % ophthalmic (eye) drops, suspension 1 drop 2 times per day [Active]; fluconazole 150 mg Oral tablet 1 tab [Active]; - PMHx: 23:46 CKD; compressed discs; Diabetes - NIDDM; gastric ulcer; Hypertension; Kidney stone; pf1 Orthostatic hypotension; PUD; - PSHx: 23:46 Cholecystectomy; Gatric Bypass; left corneal transplant; Ureter sx; skin graft to pf1 genital region; - Immunization history:: Adult Immunizations up to date, Client reports receiving the 2nd dose of the Covid vaccine, Last tetanus immunization: < 10 years ago Flu vaccine is up to date. - Social history:: Smoking status: Patient denies any tobacco usage or history of. Patient/guardian denies using alcohol, street drugs. Screenin/11 02:41 [facility] ED Fall Risk Assessment (Adult) History of falling in the last 3 months, rv including since admission No falls in past 3 months (0 pts). Abuse screen: Denies threats or abuse. Denies injuries from another. Nutritional screening: No deficits noted. Tuberculosis screening: No symptoms or risk factors identified. Assessment: 00:00 General: Appears in no apparent distress. comfortable, Behavior is calm, cooperative, jb4 appropriate for age. Pain:. Neuro: Level of Consciousness is awake, alert, obeys commands, Oriented to person, place, time, situation. Cardiovascular: Patient's skin is warm and dry. Respiratory: Airway Respiratory effort is even, unlabored, Respiratory pattern is regular, symmetrical. GI: Abdomen is non-distended, obese, Reports diarrhea. : EENT: No signs and/or symptoms were reported regarding the EENT system. Derm: Skin is intact, Skin is pink, warm \T\ dry. Musculoskeletal: Circulation, motion, and sensation intact. Range of motion: intact in all extremities. 01:20 Reassessment: Patient appears in no apparent distress at this time. Patient and/or jb4 family updated on plan of care and expected duration. Pain level reassessed. Patient is alert, oriented x 3, equal unlabored respirations, skin warm/dry/pink. Vital Signs: 07/18 23:35 BP 144 / 82; Pulse 88; Resp 18; Temp 97.1; Pulse Ox 96% on R/A; Weight 120.2 kg; Height pf1 6 ft. 2 in. ; Pain 08/17; 07/19 01:20 BP 151 / 84; Pulse 67; Resp 16; Pulse Ox 99% on R/A; jb4 02:26 BP 127 / 64; Pulse 68; Resp 18; Pulse Ox 99% on R/A; rv 07/18 23:35 Body Mass Index 34.02 (120.20 kg, 187.96 cm) pf1 07/18 23:35 Pain Scale: Adult pf1 [place] Coma Score: 02:26 Eye Response: spontaneous(4). Motor Response: obeys commands(6). Verbal Response: rv oriented(5). Total: 15. ED Course: 07/18 23:30 Patient arrived in ED. bp1 23:42 Triage completed. pf1 23:50 Robel Terrazas MD is Attending Physician. bs3 07/19 00:00 Inserted saline lock: 20 gauge in right antecubital area, using aseptic technique. rv Blood collected. 00:00 Arm band placed on right wrist. rv 00:00 Patient has correct armband on for positive identification. Placed in gown. Bed in low rv position. Call light in reach. Side rails up X 1. 00:00 Client placed on continuous cardiac and pulse oximetry monitoring. NIBP monitoring rv applied. 01:18 Mainor Hunt, RN is Primary Nurse. jb4 02:41 No provider procedures requiring assistance completed. IV discontinued, intact, rv bleeding controlled, No redness/swelling at site. Pressure dressing applied. Administered Medications: 00:09 Drug: NS 0.9% IV 500 ml Route: IV; Rate: 1 bolus; Site: right antecubital; jb4 01:00 Follow up: IV Status: Completed infusion; IV Intake: 500ml rv Medication: 02:41 VIS not applicable for this client. rv Intake: 01:00 IV: 500ml; Total: 500ml. rv Outcome: 02:30 Discharge ordered by . bs3 02:41 Discharged to home ambulatory. rv 02:41 Condition: improved 02:41 Discharge instructions given to patient, Instructed on discharge instructions, follow up and referral plans. Demonstrated understanding of instructions, follow-up care. 02:42 Patient left the ED. rv Signatures: Mainor Hunt, RN RN jb4 Nick Jones RN RN rv Roz Ruff bp1 Robel Terrazas MD MD bs3 Kim Tomlinson RN RN pf1
--- NOTE | 2022-07-19 02:30 | EDPHYS ---
Physician Documentation [facility] Name: Rhett Ayers Age: 46 yrs Sex: Male : 1975 Arrival Date: 07/18/2022 Time: 23:26 Bed 6 Private MD: ED Physician Robel Terrazas HPI: 07/19 00:01 This 46 yrs old Male presents to ER via Ambulatory with complaints of bs3 Diarrhea, Dizziness. 00:01 Mr. Rivera is a pleasant 46-year-old male with a history of CKD stage III almost 4, bs3 diabetes who presents with diarrhea for several days he then noted that he got lightheaded and dizzy he denies any fevers or chills chest pain shortness of breath but does note some vague left-sided flank pain he does not have abdominal pain associate with this no sick contacts no recent travel no recent antibiotic use he has had multiple episodes over the last 48 hours no associated vomiting. Historical: - Home Meds: 07/18 23:42 Flexeril Oral [Active]; gabapentin oral [Active]; Hydrocodone [Active]; Morphine Oral pf1 [Active]; carvedilol 12.5 mg oral tablet 2 times per day [Active]; doxepin 75 mg Oral capsule 1 cap once [Active]; fluoxetine 40 mg Oral capsule 1 cap once [Active]; fluorometholone 0.1 % ophthalmic (eye) drops, suspension 1 drop 2 times per day [Active]; fluconazole 150 mg Oral tablet 1 tab [Active]; - PMHx: 23:46 CKD; compressed discs; Diabetes - NIDDM; gastric ulcer; Hypertension; Kidney stone; pf1 Orthostatic hypotension; PUD; - PSHx: 23:46 Cholecystectomy; Gatric Bypass; left corneal transplant; Ureter sx; skin graft to pf1 genital region; - Immunization history:: Adult Immunizations up to date, Client reports receiving the 2nd dose of the Covid vaccine, Last tetanus immunization: < 10 years ago Flu vaccine is up to date. - Social history:: Smoking status: Patient denies any tobacco usage or history of. Patient/guardian denies using alcohol, street drugs. ROS: 07/19 00:01 Constitutional: Negative for fever, chills bs3 All other systems are negative. Exam: 00:01 Constitutional: This is a well developed, well nourished patient who is awake, alert, bs3 and in no acute distress. Head/Face: Normocephalic, atraumatic. Eyes: Pupils equal round and reactive to light, extra-ocular motions intact. Lids and lashes normal. ENT: mmm, no posterior phyarngeal erythema Neck: Trachea midline, no thyromegaly, no neck stiffness Chest/axilla: Normal chest wall appearance and motion. Nontender with no deformity. No lesions are appreciated. Cardiovascular: Regular rate and rhythm with a normal S1 and S2. symmetric pulses in upper extremities Respiratory: Lungs have equal breath sounds bilaterally, clear to auscultation, no respiratory distress Abdomen/GI: Soft, non-tender, no rebound or guarding MS/ Extremity: Pulses equal, no cyanosis. Neurovascular intact. Full, normal range of motion. Neuro: Awake and alert, GCS 15, oriented to person, place, time, and situation. Cranial nerves II-XII grossly intact. Motor strength 5/5 in all extremities. Sensory grossly intact. Psych: Awake, alert, with orientation to person, place and time. Behavior, mood, and affect are within normal limits. 00:06 Normal sinus rhythm at [address] elevations or depressions QTc 401 no peak T waves as bs3 interpreted by myself Vital Signs: 07/18 23:35 BP 144 / 82; Pulse 88; Resp 18; Temp 97.1; Pulse Ox 96% on R/A; Weight 120.2 kg; Height pf1 6 ft. 2 in. ; Pain 08/17; 07/19 01:20 BP 151 / 84; Pulse 67; Resp 16; Pulse Ox 99% on R/A; jb4 02:26 BP 127 / 64; Pulse 68; Resp 18; Pulse Ox 99% on R/A; rv 07/18 23:35 Body Mass Index 34.02 (120.20 kg, 187.96 cm) pf1 07/18 23:35 Pain Scale: Adult pf1 [place] Coma Score: 02:26 Eye Response: spontaneous(4). Motor Response: obeys commands(6). Verbal Response: rv oriented(5). Total: 15. MDM: 07/18 23:50 Patient medically screened. bs3 07/19 00:01 Differential diagnosis: Nonspecific abd pain, gastritis, pancreatitis, viral bs3 gastroenteritis, gastroenteritis. Data reviewed: vital signs, nurses notes. ED course: Will evaluate for electrolyte abnormality will hydrate we will do serial exams and reassess. 00:50 ED course: Hemoglobin slightly lower than prior but patient denies black tarry stools bs3 or bright red blood per rectum advised outpatient follow-up. 02:30 ED course: Urinalysis negative for acute pathology discharged home return precautions. bs3 07/18 23:50 Order name: CBC with Diff; Complete Time: 00:49 bs3 07/18 23:50 Order name: Comprehensive Metabolic Panel; Complete Time: 00:49 bs3 07/19 00:00 Order name: Urinalysis w/ reflexes; Complete Time: 02:30 bs3 07/18 23:50 Order name: EKG - Nurse/Tech; Complete Time: 00:09 bs3 Administered Medications: 00:09 Drug: NS 0.9% IV 500 ml Route: IV; Rate: 1 bolus; Site: right antecubital; jb4 01:00 Follow up: IV Status: Completed infusion; IV Intake: 500ml rv Disposition Summary: 07/19/22 02:30 Discharge Ordered Location: Home bs3 Problem: new bs3 Symptoms: have improved bs3 Condition: Stable bs3 Diagnosis - Diarrhea, unspecified bs3 Followup: bs3 - With: Private Physician - When: 1 week - Reason: Re-evaluation by your physician Discharge Instructions: - Discharge Summary Sheet bs3 - Diarrhea, Adult bs3 Forms: - Medication Reconciliation Form bs3 - Thank You Letter bs3 - Antibiotic Education bs3 - Prescription Opioid Use bs3 Signatures: Dispatcher [employer] EDMS Mainor Hunt RN RN jb4 Robel Terrazas MD MD bs3 Kim Tomlinson RN RN pf1 Nick Jones RN rv
[2022-07-19 02:57] VITALS: TEMP 97.1
[2022-07-19 03:07] VITALS: O2SAT 99
[2022-07-19 03:09] VITALS: BP 127/64
--- NOTE | 2022-07-20 12:06 | EKG ---
Test Date: 2022-07-19 Test Time: 00:04:50 Security Delivery Specialist: KAYCEE MEASUREMENT RESULTS: Intervals: Rate: 73 ID: [id number] QRSD: 96 QT: 364 QTc: 401 [place]: P: 21 ID: [id number] QRS: 43 T: 32 INTERPRETIVE STATEMENTS: Normal sinus rhythm Normal ECG Compared to ECG 04/14/2022 04:09:53 No significant changes Electronically Signed On 07-20-22 12:00:49 CDT by Gigi Bedolla
== END 2022-07-19 02:42 | disposition home or self-care (01) ==
LOC: ER 23:26
DX: R19.7 Diarrhea, unspecified (principal); E11.22 Type 2 diabetes mellitus with diabetic chronic kidney disease; I12.9 Hypertensive chronic kidney disease with stage 1 through stage 4 chronic kidney disease, or unspecified chronic kidney disease; N18.30 Chronic kidney disease, stage 3 unspecified
CPT/HCPCS: 93005; 85025; 81001; 36415; 80053; 96360; 99284; J7040

== ENCOUNTER 2023-08-15 11:16 | Emergency (ER) | payer OTHER ==
[2023-08-15 12:14] LABS: Absolute Eosinophils 0.4 K/uL (0-0.5); Absolute Lymphocytes (CBC) 1.3 K/uL (0.7-4.9); Absolute Monocytes 0.6 K/uL (0.1-1.3); Absolute Neutrophil 11.9 K/uL (1.8-8.0); Basophils % 0.2 % (0-1.3); Eosinophils % 3.1 % (0-4.4); Hematocrit 40.4 % (39.6-49.0); Hemoglobin 12.5 g/dL (13.6-17.9); Lymphocytes % 9.4 % (15.3-44.8); MCH 32.1 pg (27.0-35.0); MCV 103.6 fL (80-100); MPV 7.9 fL (7.6-11.3); Neutrophils % 83.3 % (41.7-73.7); Platelets 432 thou/uL (152-406); RBC Red Blood Cell Count 3.89 M/uL (4.33-5.43); Red Cell Distribution Width 16.3 % (12.1-15.2)
[2023-08-15 12:24] LABS: Specific Gravity 1.027 (1.005-1.030); Sqamous Epithelial <5 /HPF (None Seen); Urine Bacteria <20 /HPF (<20); Urine Bilirubin NEGATIVE (Negative); Urine Blood 1+ (Negative); Urine Clarity Extremely Turbid (Clear); Urine Color Yellow (Yellow); Urine Crystals Unidentified Few /HPF (None Seen); Urine Culture Reflex Order REFLEXED; Urine Glucose NEGATIVE (Negative); Urine Ketones NEGATIVE (Negative); Urine Microscopic Reflex YN ORDER UMIC; Urine Mucus Slight /HPF (None Seen); Urine Nitrite NEGATIVE (Negative); Urine Protein 2+ (Negative); Urine Urobilinogen Normal (Normal); Urine WBC >50 /HPF (<5); Urine WBC Clump Occasional /HPF (None Seen); Urine Yeast (Budding) Occasional /HPF (None Seen)
[2023-08-15 12:29] LABS: Anion Gap 14.1 mEq/L (5.0-15.0)
[2023-08-15 12:30] LABS: Potassium 4.1 mEq/L (3.5-5.1)
--- NOTE | 2023-08-15 13:01 | RAD REPORT ---
EXAM DESCRIPTION: [place]ud Single View08/15/2023 12:53 pm CLINICAL HISTORY: Hypertension, weakness COMPARISON: 2022 FINDINGS: The lungs appear clear of acute infiltrate. The heart is normal size IMPRESSION: No acute abnormalities displayed
[2023-08-15] MEDS ORDERED: NA CHLORIDE 0.9% 1,000 ML ONE (13:27)
--- NOTE | 2023-08-15 13:33 | RAD REPORT ---
EXAM DESCRIPTION: CT - Stone Protocol - 08/15/2023 1:12 pm CLINICAL HISTORY: Abdominal pain. COMPARISON: 2021 TECHNIQUE: Computed axial tomography of the abdomen pelvis was obtained without oral or IV contrast. Lack of IV and oral contrast limits evaluation of solid organs, appendix, bowel, and vessels. Fields l reformatted images were obtained and reviewed. All CT scans are performed using dose optimization technique as appropriate and may include automated exposure control or mA/KV adjustment according to patient size. FINDINGS: Mild to moderate patchy ground-glass and tree-in-bud opacities within the lung bases. Tiny bilateral renal calculi. No hydronephrosis. . Ureteral/bladder calculus is not noted. Cholecystectomy. Post surgical changes involve stomach. The liver, spleen, pancreas and adrenals appear grossly normal There is no evidence of diverticulitis. The appendix appears normal IMPRESSION: Tiny nonobstructing bilateral renal calculi Mild to moderate patchy ground-glass and tree-in-bud opacities within the lung bases may indicate inf ection or inflammation
--- NOTE | 2023-08-15 13:56 | EDPHYS ---
Physician Documentation [facility] Name: Rhett Ayers Age: 47 yrs Sex: Male : 1975 Arrival Date: 08/15/2023 Time: 11:16 Bed 19 Private MD: ED Physician Santos Veliz HPI: 08/14 13:04 This 47 yrs old Male presents to ER via Wheelchair with complaints of General kb Weakness. 13:04 Pt is a 47 year old male who presents for generalized weakness, fatigue, decreased kb appetite and increased thirst for one week. Reports he had abd pain but that has resolved. Denies n/v/d, fever. . Historical: - Allergies: 11:29 No Known Allergies; ph - Home Meds: 13:36 carvedilol 12.5 mg Oral tablet 2 times per day [Active]; doxepin 75 mg Oral capsule 1 le1 cap once [Active]; Flexeril Oral [Active]; fluconazole 150 mg Oral tablet 1 tab [Active]; fluorometholone 0.1 % ophthalmic (eye) drops 1 drop 2 times per day [Active]; fluoxetine 40 mg Oral capsule 1 cap once [Active]; gabapentin oral [Active]; Hydrocodone [Active]; Morphine Oral [Active]; - PMHx: 11:29 CKD; compressed discs; Diabetes - NIDDM; gastric ulcer; Hypertension; Kidney stone; ph Orthostatic hypotension; PUD; - PSHx: 11:29 Cholecystectomy; left corneal transplant; Gatric Bypass; skin graft to genital region; ph Ureter sx; - Immunization history:: Adult Immunizations unknown. - Infectious Disease History:: Denies. - Social history:: Smoking status: Patient denies any tobacco usage or history of. ROS: 13:04 Constitutional: As per HPI kb Exam: 13:04 Constitutional: This is a well developed, well nourished patient who is awake, alert, kb and in no acute distress. Head/Face: Normocephalic, atraumatic. ENT: Moist Mucous membranes Cardiovascular: Regular rate Respiratory: Respirations even and unlabored. No increased work of breathing. Talking in full sentences Abdomen/GI: Soft, non-tender. No distention Skin: Warm, dry with normal turgor. Normal color. MS/ Extremity: Pulses equal, no cyanosis. Neurovascular intact. Full, normal range of motion. Neuro: Awake and alert, GCS 15, oriented to person, place, time, and situation. Moves all extremities. Normal gait. Vital Signs: 11:39 BP 109 / 77; Pulse 82; Resp 18; Temp 97.7; Pulse Ox 99% on R/A; Weight 111.13 kg; ph Height 6 ft. 2 in. ; 13:34 BP 113 / 81; Pulse 74; Resp 18; Pulse Ox 100% ; le1 15:48 BP 117 / 68; Pulse 71; Resp 18; Temp 98.8; Pulse Ox 100% ; le1 11:39 Body Mass Index 31.46 (111.13 kg, 187.96 cm) ph MDM: 11:22 Patient medically screened. kb 13:05 Data reviewed: vital signs, nurses notes. kb 15:35 Differential diagnosis: pneumonia UTI, viral syndrome, abnormal electrolytes, kidney kb failure, dehydration. Consideration of Admission/Observation discussed transfer with pt. Pt refuses transfer at this time. Requests antibiotics and discharge. States cipro or levaquin are the antibiotics that normally work for him when he has a UTI. . Management of patient was discussed with the following: Dr Veliz. Counseling: I had a detailed discussion with the patient and/or guardian regarding the historical points, exam findings, and any diagnostic results supporting the discharge/admit diagnosis, lab results, radiology results, the need to transfer to another facility, [facility] does not immediately have the required specialist. ED course: PT refuses transfer. . 08/14 11:32 Order name: CBC with Diff; Complete Time: 12:16 kb 08/14 11:32 Order name: BMP; Complete Time: 12:34 kb 08/14 11:32 Order name: Urinalysis w/ reflexes; Complete Time: 12:25 kb 08/14 12:27 Order name: Urine Culture EDKY 08/14 12:17 Order name: Chest Single View XRAY; Complete Time: 13:02 kb 08/14 12:42 Order name: CT Stone Protocol; Complete Time: 13:34 kb 08/14 13:35 Order name: EKG; Complete Time: 13:36 kb 08/14 11:32 Order name: IV Start; Complete Time: 12:07 kb 08/14 13:35 Order name: IV Saline Lock - Large Bore; Complete Time: 13:50 kb 08/14 13:35 Order name: O2 Per Protocol; Complete Time: 13:50 kb 08/14 13:35 Order name: O2 Sat Monitoring; Complete Time: 13:50 kb 08/14 13:35 Order name: Vital Signs; Complete Time: 13:50 kb Administered Medications: 13:28 Drug: NS 0.9% IV 1000 ml IV at 1000 ml once Route: IV; Rate: 1000 ml; Site: right le1 antecubital; 15:25 Follow up: Response: No adverse reaction; IV Status: Completed infusion le1 15:28 Follow up: Response: No adverse reaction; IV Status: Completed infusion le1 14:02 CANCELLED (Patient Refused): rocephin1 grams IV at calculated rate once; give after le1 blood cultures 14:02 CANCELLED (Patient Refused): [id number] mg IVPB once over 1 hrs; mix in 250 mL NS le1 15:47 Drug: LevOfloxacin PO 500 mg PO once Route: PO; le1 15:47 Follow up: Response: No adverse reaction le1 15:47 Drug: [place] PO 10 mg-325 mg 1 tabs PO once Route: PO; le1 15:47 Follow up: Response: No adverse reaction; Pain is decreased le1 15:47 Drug: Cyclobenzaprine PO 10 mg PO once Route: PO; le1 15:47 Follow up: Response: No adverse reaction le1 Disposition Summary: 08/15/23 15:33 Discharge Ordered Notes: Location: Home kb Condition: Stable(08/15/23 15:33) kb Diagnosis - Acute kidney failure, unspecified kb - Pneumonia, unspecified organism(08/15/23 15:33) kb - UTI/ Urinary tract infection, site not specified(08/15/23 15:33) kb Followup: kb - With: Emergency Department - When: As needed - Reason: Worsening of condition Followup: kb - With: Private Physician - When: 2 - 3 days - Reason: Recheck today's complaints, Continuance of care, Re-evaluation by your physician Discharge Instructions: - Discharge Summary Sheet kb - Urinary Tract Infection, Adult, [id number] kb - Community-Acquired Pneumonia, Adult, [id number] kb - Chronic Kidney Disease, Adult, [id number] kb Forms: - Medication Reconciliation Form kb - Antibiotic Education kb - Prescription Opioid Use kb - Patient Portal Instructions kb - Leadership Thank You Letter kb Prescriptions: - levofloxacin 500 mg Oral tablet - take 1 tablet ORAL route once daily for 7 days; 7 tablet; Refills: 0, Product kb Selection Permitted Signatures: Dispatcher [employer] EDAshtyn Tatum, DOMINGO ASHER-Vanessa Caly, RN RN Antoine Mcallister RN RN le1 Corrections: (The following items were deleted from the chart) 14:02 13:53 Rocephin IV 1 grams IV at calculated rate once; give after blood cultures le1 ordered. kb 14:02 13:53 Zithromax IVPB 500 mg IVPB once over 1 hrs; mix in 250 mL NS ordered. kb le1 14:03 13:35 Accucheck ordered. kb le1 14:03 13:35 Cardiac monitoring ordered. kb le1 14:03 13:35 EKG - Nurse/Tech ordered. kb le1 14:03 13:35 Labs collected and sent ordered. kb le1 15:33 13:55 Dr kb kb 15:33 13:55 [facility] kb kb 15:33 13:55 Higher level of care kb kb 15:33 13:55 Stable kb kb 15:33 13:55 new kb kb 15:33 13:55 are unchanged kb kb 15:33 13:55 UTI/ Urinary tract infection, site not specified kb kb 15:33 13:55 Other acute kidney failure - acute on chronic kb kb 15:33 13:55 Pneumonia, unspecified organism kb kb
--- NOTE | 2023-08-15 13:56 | ER ---
Nurse's Notes [facility] Name: Rhett Ayers Age: 47 yrs Sex: Male : 1975 Arrival Date: 08/15/2023 Time: 11:16 Bed 19 Private MD: Diagnosis: Acute kidney failure, unspecified;Pneumonia, unspecified organism;UTI/ Urinary tract infection, site not specified Presentation: 08/14 11:28 Chief complaint: Patient states: Fatigue, generalized weakness, decreased appetite and ph increased thirst that has been ongoing for a few weeks. Coronavirus screen: Vaccine status: Patient reports receiving the 2nd dose of the covid vaccine. Ebola Screen: No symptoms or risks identified at this time. Initial Sepsis Screen: Does the patient meet any 2 criteria? No. Patient's initial sepsis screen is negative. Does the patient have a suspected source of infection? No. Patient's initial sepsis screen is negative. Risk Assessment: Do you want to hurt yourself or someone else? Patient reports no desire to harm self or others. Onset of symptoms was August 15, 2023. 11:28 Method Of Arrival: Wheelchair ph 11:39 Acuity: SANTIAGO 3 ph Historical: - Allergies: 11:29 No Known Allergies; ph - Home Meds: 13:36 carvedilol 12.5 mg Oral tablet 2 times per day [Active]; doxepin 75 mg Oral capsule 1 le1 cap once [Active]; Flexeril Oral [Active]; fluconazole 150 mg Oral tablet 1 tab [Active]; fluorometholone 0.1 % ophthalmic (eye) drops 1 drop 2 times per day [Active]; fluoxetine 40 mg Oral capsule 1 cap once [Active]; gabapentin oral [Active]; Hydrocodone [Active]; Morphine Oral [Active]; - PMHx: 11:29 CKD; compressed discs; Diabetes - NIDDM; gastric ulcer; Hypertension; Kidney stone; ph Orthostatic hypotension; PUD; - PSHx: 11:29 Cholecystectomy; left corneal transplant; Gatric Bypass; skin graft to genital region; ph Ureter sx; - Immunization history:: Adult Immunizations unknown. - Infectious Disease History:: Denies. - Social history:: Smoking status: Patient denies any tobacco usage or history of. Screenin:[address] [facility] ED Fall Risk Assessment (Adult) History of falling in the last 3 months, le1 including since admission No falls in past 3 months (0 pts) Confusion or Disorientation No (0 pts) Intoxicated or Sedated No (0 pts) Impaired Gait No (0 pts) Mobility Assist Device Used No (0 pt) Altered Elimination No (0 pt) Score/Fall Risk Level 0 - 2 = Low Risk Oriented to surroundings, Maintained a safe environment, Educated pt \T\ family on fall prevention, incl call for assistance when getting out of bed, Assessed \T\ reinforced patient's understanding of fall precautions, Hourly rounding (assess needs \T\ fall precautionary measures) done. Abuse screen: Denies threats or abuse. Nutritional screening: No deficits noted. Tuberculosis screening: No symptoms or risk factors identified. Assessment: 13:33 Reassessment: Patient appears in no apparent distress at this time. General: Appears in le1 no apparent distress. comfortable, Behavior is calm, cooperative. General: Reports fatigue for. Pain: Denies pain. Neuro: No deficits noted. Cardiovascular: No deficits noted. Respiratory: No deficits noted. GI: No deficits noted. : No deficits noted. Vital Signs: 11:39 BP 109 / 77; Pulse 82; Resp 18; Temp 97.7; Pulse Ox 99% on R/A; Weight 111.13 kg; ph Height 6 ft. 2 in. ; 13:34 BP 113 / 81; Pulse 74; Resp 18; Pulse Ox 100% ; le1 15:48 BP 117 / 68; Pulse 71; Resp 18; Temp 98.8; Pulse Ox 100% ; le1 11:39 Body Mass Index 31.46 (111.13 kg, 187.96 cm) ph ED Course: 11:18 Patient arrived in ED. ph 11:22 Ashtyn He FNP-C is PHCP. kb 11:22 Santos Veliz MD is Attending Physician. kb 11:29 Arm band placed on. ph 11:39 Triage completed. ph 11:51 Antoine Mcallister RN is Primary Nurse. le1 12:07 Initial lab(s) drawn, by hi, sent to lab. Urine collected: clean catch specimen, clear. zm Inserted saline lock: 20 gauge in right antecubital area, using aseptic technique. Blood collected. 12:07 BMP Sent. zm 12:07 CBC with Diff Sent. zm 12:07 Urinalysis w/ reflexes Sent. zm 12:55 Chest Single View XRAY In Process Unspecified. EDMS 13:15 CT Stone Protocol In Process Unspecified. EDMS 13:36 Patient has correct armband on for positive identification. Bed in low position. Call le1 light in reach. Side rails up X2. Adult w/ patient. Provided Education on: Use call light if needed. 15:49 No provider procedures requiring assistance completed. IV discontinued, intact, le1 bleeding controlled, No redness/swelling at site. Pressure dressing applied. Administered Medications: 13:28 Drug: NS 0.9% IV 1000 ml IV at 1000 ml once Route: IV; Rate: 1000 ml; Site: right le1 antecubital; 15:25 Follow up: Response: No adverse reaction; IV Status: Completed infusion le1 15:28 Follow up: Response: No adverse reaction; IV Status: Completed infusion le1 14:02 CANCELLED (Patient Refused): rocephin1 grams IV at calculated rate once; give after le1 blood cultures 14:02 CANCELLED (Patient Refused): [id number] mg IVPB once over 1 hrs; mix in 250 mL NS le1 15:47 Drug: LevOfloxacin PO 500 mg PO once Route: PO; le1 15:47 Follow up: Response: No adverse reaction le1 15:47 Drug: [place] PO 10 mg-325 mg 1 tabs PO once Route: PO; le1 15:47 Follow up: Response: No adverse reaction; Pain is decreased le1 15:47 Drug: Cyclobenzaprine PO 10 mg PO once Route: PO; le1 15:47 Follow up: Response: No adverse reaction le1 Medication: 13:42 VIS not applicable for this client. le1 Outcome: 13:55 ER care complete, transfer ordered by . vero 15:33 Discharge ordered by . vero 15:49 Discharged to home ambulatory, le1 15:49 Condition: improved 15:49 Discharge instructions given to patient, family, Instructed on discharge instructions, follow up and referral plans. medication usage, Demonstrated understanding of instructions, follow-up care, medications, Prescriptions given X 1, 15:49 Patient left the ED. le1 Signatures: Dispatcher [employer] EDMS Ashtyn He, DOMINGO ASHER-Vanessa Clay RN RN ph Malcolm, Eliz zm [place], LaKendric, RN RN le1
[2023-08-15] MEDS ORDERED: levoFLOXacin 250 MG TAB ONE (15:39)
[2023-08-15] MEDS ORDERED: CYCLOBENZAPRINE 10 MG TAB ONE (15:39)
[2023-08-15] MEDS ORDERED: HYDROCODONE/APAP 10/325 TAB ONE (15:39)
[2023-08-15 16:30] VITALS: BP 117/68; TEMP 98.8; O2SAT 100
== END 2023-08-15 15:49 | disposition home or self-care (01) ==
LOC: ER 11:16
DX: N17.9 Acute kidney failure, unspecified (principal); J18.9 Pneumonia, unspecified organism; N39.0 Urinary tract infection, site not specified
CPT/HCPCS: 96361; 87088; 85025; 81001; 87086; 80048; 36415; 87077; 87186; 76377; 74176; 71045; 96360; 99284; J7030

== ENCOUNTER 2023-09-11 21:00 | Inpatient (IN) | payer OTHER ==
[2023-09-11 22:37] LABS: Absolute Eosinophils 0.3 K/uL (0-0.5); Absolute Lymphocytes (CBC) 1.1 K/uL (0.7-4.9); Absolute Monocytes 0.8 K/uL (0.1-1.3); Absolute Neutrophil 8.8 K/uL (1.8-8.0); Basophils % 0.1 % (0-1.3); Eosinophils % 2.5 % (0-4.4); Hematocrit 32.3 % (39.6-49.0); Hemoglobin 10.2 g/dL (13.6-17.9); Lymphocytes % 10.1 % (15.3-44.8); MCH 33.6 pg (27.0-35.0); MCHC 31.7 g/dL (32.0-36.0); MPV 8.7 fL (7.6-11.3); Monocytes % 7.3 % (3.3-12.3); Platelets 182 thou/uL (152-406); RBC Red Blood Cell Count 3.04 M/uL (4.33-5.43); Red Cell Distribution Width 19.7 % (12.1-15.2)
[2023-09-11 22:53] LABS: PT Prothrombin Time 12.1 SECONDS (9.4-12.5); Protime INR 1.08
[2023-09-11 23:00] LABS: Albumin 2.5 g/dL (3.4-5.0); Albumin/Globulin Ratio 0.7 (1.1-1.8); Anion Gap 12.5 mEq/L (5.0-15.0); Bilirubin Direct 0.3 mg/dL (0-0.2); Bilirubin Indirect, Calculated 0.3 mg/dL (0.2-0.8); Bilirubin Total 0.6 mg/dL (0.2-1.0); Globulin 3.4 g/dL (2.3-3.5); Magnesium 1.6 mg/dL (1.6-2.4); Potassium 3.5 mEq/L (3.5-5.1); Protein, Total 5.9 g/dL (6.4-8.2); Troponin High Sensitivity 7.7 pg/mL (<58.9)
[2023-09-11] MEDS ORDERED: NA CHLORIDE 0.9% 1,000 ML ONE (23:11)
[2023-09-11 23:36] LABS: Specific Gravity 1.022 (1.005-1.030); Sqamous Epithelial <5 /HPF (None Seen); Urine Bacteria 20-50 /HPF (<20); Urine Bilirubin NEGATIVE (Negative); Urine Blood 1+ (Negative); Urine Clarity Extremely Turbid (Clear); Urine Color Yellow (Yellow); Urine Culture Reflex Order REFLEXED; Urine Glucose NEGATIVE (Negative); Urine Ketones NEGATIVE (Negative); Urine Micro Reflex YN NO BILL MICROSCOPIC; Urine Mucus Slight /HPF (None Seen); Urine Nitrite NEGATIVE (Negative); Urine Protein 1+ (Negative); Urine Urobilinogen Normal (Normal); Urine WBC 20-50 /HPF (<5)
[2023-09-11] MEDS ORDERED: CEFTRIAXONE 1000 MG/VIAL ONE (23:56)
[2023-09-11] MEDS ORDERED: CYCLOBENZAPRINE 10 MG TAB ONE (23:56)
[2023-09-11] MEDS ORDERED: GABAPENTIN 300 MG CAP ONE (23:56)
[2023-09-11] MEDS ORDERED: HYDROCODONE/APAP 10/325 TAB ONE (23:56)
[2023-09-11] MEDS ORDERED: NA CHLORIDE 0.9% 50 ML ONE (23:57)
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
[2023-09-12] MEDS ORDERED: ACETAMINOPHEN 500 MG TAB PO PRN (01:17)
[2023-09-12] MEDS ORDERED: MORPHINE 2 MG/ML SYR IV PRN (01:17)
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
[2023-09-12] MEDS ORDERED: HOME MED 1 EA UNK (Gabapentin [Neurontin] 800 MG Tablet) PO SCH (01:45)
[2023-09-12] MEDS ORDERED: Levofloxacin500mg IV 500 MG/100 ML BAG IV ONE (07:21)
[2023-09-12] MEDS ORDERED: NA CHLORIDE 0.9% 1,000 ML ONE (07:22)
[2023-09-12] MEDS: carvediloL 12.5 MG TAB PO SCH (09:00)
[2023-09-12] MEDS: GABAPENTIN 400 MG CAP PO SCH (09:13)
[2023-09-12] MEDS: MORPHINE *EXTENDED RELEASE* 15 MG TAB PO SCH (09:13)
[2023-09-12] MEDS: FLUOXETINE 20 MG CAP PO SCH (09:13)
[2023-09-12] MEDS: carvediloL 25 MG TAB PO SCH (09:13)
[2023-09-12] MEDS: Levofloxacin500mg IV 500 MG/100 ML BAG IV SCH (09:13)
[2023-09-12] MEDS: NA CHLORIDE 0.9% 1,000 ML IV SCH (09:13)
[2023-09-12] MEDS ORDERED: MORPHINE *EXTENDED RELEASE* 15 MG TAB PO ONE (09:23)
[2023-09-12 10:34] LABS: Absolute Eosinophils 0.4 K/uL (0-0.5); Absolute Lymphocytes (CBC) 1.2 K/uL (0.7-4.9); Absolute Monocytes 0.9 K/uL (0.1-1.3); Absolute Neutrophil 8.3 K/uL (1.8-8.0); Basophils % 0.2 % (0-1.3); Eosinophils % 3.3 % (0-4.4); Hematocrit 30.9 % (39.6-49.0); Hemoglobin 9.8 g/dL (13.6-17.9); Lymphocytes % 10.8 % (15.3-44.8); MCH 33.5 pg (27.0-35.0); MCHC 31.8 g/dL (32.0-36.0); MCV 105.2 fL (80-100); MPV 8.5 fL (7.6-11.3); Monocytes % 8.3 % (3.3-12.3); Neutrophils % 77.4 % (41.7-73.7); Platelets 186 thou/uL (152-406); RBC Red Blood Cell Count 2.94 M/uL (4.33-5.43); Red Cell Distribution Width 19.3 % (12.1-15.2)
[2023-09-12 10:51] LABS: Albumin 2.4 g/dL (3.4-5.0); Albumin/Globulin Ratio 0.7 (1.1-1.8); Bilirubin Total 0.6 mg/dL (0.2-1.0); Globulin 3.5 g/dL (2.3-3.5); Magnesium 1.4 mg/dL (1.6-2.4); Protein, Total 5.9 g/dL (6.4-8.2)
[2023-09-12 11:01] VITALS: BMI 30.2
[2023-09-12 11:54] LABS: Anisocytosis 2+; Blood Morphology Comment NOTED (NOT SEEN); Hypochromasia 2+; Platelet Estimate ADEQ; White Blood Cell Scan OK (OK)
[2023-09-12] MEDS: Magnesium Sulfate 2gm IVPB 2 G/50 ML BAG IV ONE (12:52)
[2023-09-12] MEDS: CEFEPIME 1 GM in NA CHLORIDE 0.9% 100 ML IV SCH (12:54)
[2023-09-12] MEDS: POTASSIUM CL 40 MEQ in NA CHLORIDE 0.9% 500 ML IV SCH (13:43)
[2023-09-12] MEDS: VANCOMYCIN 2.75 GM in NA CHLORIDE 0.9% 500 ML IVPB ONE (14:12)
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
[2023-09-12] MEDS: CYCLOBENZAPRINE 10 MG TAB PO PRN (17:47)
[2023-09-12 18:45] LABS: Anion Gap 8.5 mEq/L (5.0-15.0)
[2023-09-12 18:46] LABS: Magnesium 1.8 mg/dL (1.6-2.4); Potassium 3.5 mEq/L (3.5-5.1)
[2023-09-12] MEDS: GABAPENTIN 300 MG CAP PO SCH (21:29)
[2023-09-12] MEDS: HYDROCODONE/APAP 10/325 TAB PO PRN (21:29)
[2023-09-13] MEDS: HYDROCODONE/APAP 10/325 TAB PO PRN (05:14)
[2023-09-13 05:49] LABS: Albumin 1.8 g/dL (3.4-5.0); Albumin/Globulin Ratio 0.7 (1.1-1.8); Bilirubin Total 0.3 mg/dL (0.2-1.0); Globulin 2.7 g/dL (2.3-3.5); Protein, Total 4.5 g/dL (6.4-8.2)
[2023-09-13 05:54] LABS: Absolute Eosinophils 0.2 K/uL (0-0.5); Absolute Lymphocytes (CBC) 1.4 K/uL (0.7-4.9); Absolute Monocytes 0.8 K/uL (0.1-1.3); Absolute Neutrophil 4.4 K/uL (1.8-8.0); Basophils % 0.2 % (0-1.3); Eosinophils % 3.6 % (0-4.4); Hematocrit 23.8 % (39.6-49.0); Hemoglobin 7.8 g/dL (13.6-17.9); Lymphocytes % 20.1 % (15.3-44.8); MCH 33.9 pg (27.0-35.0); MCHC 32.7 g/dL (32.0-36.0); MCV 103.8 fL (80-100); MPV 8.8 fL (7.6-11.3); Neutrophils % 64.1 % (41.7-73.7); Platelets 149 thou/uL (152-406); RBC Red Blood Cell Count 2.29 M/uL (4.33-5.43); Red Cell Distribution Width 18.4 % (12.1-15.2)
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
--- NOTE | 2023-09-13 09:48 | RAD REPORT ---
EXAM DESCRIPTION: CT - Chest Abd Pelvis Wo Con - 09/12/2023 6:45 am CLINICAL HISTORY: The patient is 47 years old and is Male; chest pain, weakness, hematuria, perineal abscess TECHNIQUE: Axial computed tomography images of the chest, abdomen and pelvis without intravenous con trast. Sagittal and coronal reformatted images were created and reviewed. This CT exam was perfor med using one or more of the following dose reduction techniques: automated exposure control, adjus tment of the mA and/or kV according to patient size, and/or use of iterative reconstruction technique . COMPARISON: No relevant prior studies available. FINDINGS: CHEST: LUNGS: Subtle patchy groundglass opacities within the right upper lobe and to a greater extent th e left lower lobe are noted. The lungs are otherwise clear. The tracheobronchial tree is patent. PLEURAL SPACE: Unremarkable. No significant effusion. No pneumothorax. HEART: No cardiomegaly. No pericardial effusion. ABDOMEN: LIVER: Homogeneous without focal mass. GALLBLADDER AND BILE DUCTS: Surgical clips are present in the right upper quadrant, consistent wi th previous cholecystectomy. PANCREAS: Unremarkable. No ductal dilation. SPLEEN: Unremarkable. ADRENALS: Unremarkable. No mass. KIDNEYS AND URETERS: No obstructing stones. No hydronephrosis. No perinephric fluid. STOMACH AND BOWEL: Postsurgical changes level of the GE junction is noted. Postsurgical change of the stomach suggesting a gastric bypass is noted. Several fluid-filled small bowel loops are prese nt which are prominent specifically within the left lower quadrant there is no mucosal thickening. Gr adual transition to normal caliber bowel is present. Stool and air noted throughout the colon. There is no evidence of obstruction. PELVIS: APPENDIX: No findings to suggest acute appendicitis. BLADDER: The bladder is moderately distended. No stones. REPRODUCTIVE: Unremarkable as visualized. CHEST, ABDOMEN and PELVIS: INTRAPERITONEAL SPACE: Unremarkable. No significant fluid collection. No free air. BONES/JOINTS: Multilevel degenerative change of the spine is present. There is no acute fracture. SOFT TISSUES: Mild edema of the soft tissues of the lower pannus is present. VASCULATURE: Minimal atherosclerosis of the vasculature is present. No aortic aneurysm. LYMPH NODES: Unremarkable. No enlarged lymph nodes. IMPRESSION: 1. Subtle groundglass opacities within the right upper lobe and to a greater extent th e left lower lobe. Findings are nonspecific and may be secondary to infectious and/or edematous proce ss. 2. Several prominent fluid-filled small bowel loops specifically within the left abdomen. Gradual t ransition to normal caliber bowel in the right lower quadrant is present. Findings may be secondary t o an ileus. 3. Mild/moderate stool burden. Electronically signed by: Svetlana Manning MD 09/12/2023 12:54 AM CDT RP Due to temporary technical issues with the PACS/Fluency reporting system, reports are being signed by the in house radiologist without review as a courtesy to ensure prompt reporting. The interpreting r adiologist is fully responsible for the content of the report.
--- NOTE | 2023-09-13 10:40 | RAD REPORT ---
EXAM DESCRIPTION: US - Extremity Nonvascular Complete - 09/13/2023 9:02 am CLINICAL HISTORY: r/o abscess COMPARISON: Chest Abd Pelvis Wo Con dated 09/12/2023 TECHNIQUE: Sonographic grayscale and color flow images of the perineum and posterior scrotum were obtained. FINDINGS: Targeted sonographic evaluation of the perineal soft tissues reveals a complex elongated i ll-defined region of hypoechogenicity starting in the hypo dermis, and extending into the subcutaneou s soft tissues, with some marginal hypervascularity and tiny areas of fluid internally. This measures 3.4 x 0.9 x 3.5 cm in greatest dimensions. No discrete tract extending to the skin is noted. IMPRESSION: Ill-defined elongated hypo dermal/subcutaneous 3.5 cm ill-defined collection suggesting early abscess versus phlegmon.
--- NOTE | 2023-09-13 12:28 | RAD REPORT ---
EXAM DESCRIPTION: RAD - Chest Single View - 09/11/2023 10:37 pm CLINICAL HISTORY: 47 years, Male, Chest pain; congestion. COMPARISON: XR Chest 08/15/2023. FINDINGS: 1 view of the chest (frontal) was obtained. Prior films were compared. There is normal l angie volume. Mediastinum: The cardiomediastinal silhouette appears normal in size and shape. Lungs: Minimal perihilar increased density perhaps corresponding to minimal bronchial thickening and/ or atelectasis. Heart: The heart is normal in size. Thoracic aorta: The thoracic aorta demonstrate to be normal. Pulmonary vasculature: The pulmonary vasculature is normal in distribution. Pleura: The costophrenic angles demonstrate to be sharp. Osseous structures: The bony structures demonstrate to be within normal limits. Other: None. IMPRESSION: Minimal perihilar increased density perhaps corresponding to minimal bronchial thickenin g and/or atelectasis. Electronically signed by: Jim Graham MD 09/11/2023 11:23 PM CDT RP Due to temporary technical issues with the PACS/Fluency reporting system, reports are being signed by the in house radiologist without review as a courtesy to ensure prompt reporting. The interpreting r adiologist is fully responsible for the content of the report.
[2023-09-13] MEDS: VANCOMYCIN 2 GM in NA CHLORIDE 0.9% 500 ML IVPB SCH (12:34)
--- NOTE | 2023-09-13 17:01 | EKG ---
Test Date: 2023-09-11 Test Time: 22:36:51 [employer] [place] Miller: THEA MEASUREMENT RESULTS: Intervals: Rate: 63 OK: 174 QRSD: 114 QT: 388 QTc: 397 [place]: P: 20 OK: 174 QRS: 13 T: 3 INTERPRETIVE STATEMENTS: Normal sinus rhythm Nonspecific T wave abnormality Abnormal ECG Compared to ECG 07/19/2022 00:04:50 T-wave abnormality now present Electronically Signed On 09-13-23 16:57:25 CDT by Trell Erwin
[2023-09-14 06:27] LABS: Absolute Eosinophils 0.2 K/uL (0-0.5); Absolute Lymphocytes (CBC) 1.4 K/uL (0.7-4.9); Absolute Monocytes 0.7 K/uL (0.1-1.3); Absolute Neutrophil 4.5 K/uL (1.8-8.0); Basophils % 0.3 % (0-1.3); Eosinophils % 3.3 % (0-4.4); Hematocrit 22.9 % (39.6-49.0); Hemoglobin 7.6 g/dL (13.6-17.9); Lymphocytes % 20.1 % (15.3-44.8); MCHC 33.1 g/dL (32.0-36.0); MCV 102.7 fL (80-100); MPV 8.6 fL (7.6-11.3); Monocytes % 10.8 % (3.3-12.3); Neutrophils % 65.5 % (41.7-73.7); Platelets 154 thou/uL (152-406); RBC Red Blood Cell Count 2.23 M/uL (4.33-5.43); Red Cell Distribution Width 17.9 % (12.1-15.2)
[2023-09-14 07:04] LABS: Albumin 1.8 g/dL (3.4-5.0); Albumin/Globulin Ratio 0.6 (1.1-1.8); Anion Gap 9.9 mEq/L (5.0-15.0); Bilirubin Total 0.2 mg/dL (0.2-1.0); Globulin 2.8 g/dL (2.3-3.5); Magnesium 1.4 mg/dL (1.6-2.4); Potassium 2.9 mEq/L (3.5-5.1); Protein, Total 4.6 g/dL (6.4-8.2)
--- NOTE | 2023-09-14 07:48 | RAD REPORT ---
EXAM DESCRIPTION: US - Scrotum Testicles - 09/13/2023 11:27 pm CLINICAL HISTORY: eval 3rd mass and testicles COMPARISON: No comparisons FINDINGS: The right testicle 3.0 x 3.0 x 1.8 cm. No intratesticular masses or evidence of testicular torsion. The left testicle 3.5 x 2.2 x 1.7 cm. No intratesticular masses or evidence of testicular torsion. Both epididymides are normal in size and appearance. No pathologic fluid collections. IMPRESSION: No acute abnormality seen.
[2023-09-14] MEDS: NA CHLORIDE 0.9% 1,000 ML ONE (09:34)
[2023-09-14] MEDS ORDERED: propofoL 200 MG/20 ML VIAL IV ONE (09:50)
[2023-09-14] MEDS ORDERED: KETOROLAC 30 MG/ML INJ ONE (09:50)
[2023-09-14] MEDS ORDERED: LIDOCAINE 1% MPF 5 ML VIAL ONE (09:50)
[2023-09-14] MEDS ORDERED: MIDAZOLAM HCL 2 MG/2 ML INJ ONE (09:50)
[2023-09-14] MEDS ORDERED: FENTANYL CITR 250 MCG/5 ML ONE (09:50)
[2023-09-14] MEDS ORDERED: FENTANYL CITR 100 MCG/2 ML ONE (09:54)
[2023-09-14] MEDS ORDERED: EPHEDRINE SULF 50 MG/ML VIAL ONE (10:55)
--- NOTE | 2023-09-14 11:14 | P.BOP ---
Preoperative diagnosis: Perineal infected subQ mass with abscess Postoperative diagnosis: same Primary procedure: Excisional biopsy 3 infected subQ masses ( 1.5 cm each) with abcess drainag Estimated blood loss: <10cc Specimen: mass x 3, culture Findings: 3 masses at perineum near base of scrotum Anesthesia: General Complications: None Transferred to: Recovery Room Condition: Good
[2023-09-14] MEDS: Magnesium Sulfate 2gm IVPB 2 G/50 ML BAG IV ONE (13:10)
[2023-09-14] MEDS: KCL 20 MEQ/100 mL IVPB 20 MEQ/100 ML BAG IV SCH (13:11)
--- NOTE | 2023-09-14 13:13 | P.PN ---
Subjective Date of Service: 09/14/23 Chief Complaint: Dizziness falls acute renal failure pneumonia Patient has no new complaint today. He stated his perineal pain is much better. No recorded fever. 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 Gradual transition to normal caliber bowel in RLQ present. Possibly secondary to ileus. Mild-mod stool burden CT 1 month ago also noted mild-mod patchy ground glass and tree-in-bud opacities continue empiric vanc / cefepime. afebrile, no leukocytosis UTI, POA; h/o recurrent UTIs prior skin graft to penis reports urine has been dark/foul smelling for ~1 month. 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 urine cx (09/11): 4+ GNR, organism ID and antibiotic sensitivities still pending. continue empiric cefepime for now (09/11-) afebrile, no leukocytosis Scrotal/Perineal cyst vs abscess first noticed palpable lumps/boil over perineum and scrotal base ~1 week ago. +tender Dr. Fowler, general surgery evaluated patient and performed I&D. Local wound care. Analgesics as needed. MIGUEL on CKD2 Hypokalemia Renal function improved, I suspect creatinine is back to baseline. continue to monitor renal function monitor and replete electrolytes as needed continue IV fluids Hypertension Continue home medications. NIDDM2 accu-cheks, SSI Chronic anemia daily labs. monitor H&H. Chronic back pain Continue home meds Analgesics as needed. VTE: ambulatory Code: Full Dispo: Home once clinically stable
[2023-09-14 16:42] VITALS: O2SAT 96
[2023-09-14] MEDS: DOXEPIN HCL 25 MG CAP PO SCH (21:03)
[2023-09-14 21:55] LABS: Anion Gap 9.3 mEq/L (5.0-15.0); Potassium 3.3 mEq/L (3.5-5.1)
--- NOTE | 2023-09-14 22:24 | OP ---
Date of Procedure: 09/14/2023 Surgeon: Angelo Fowler MD Preoperative Diagnosis: Perineal infected subcutaneous mass with abscess. Postoperative Diagnosis: Perineal infected subcutaneous mass with abscess. Procedure: Excisional biopsy of 3 infected subcutaneous mass, 1.5 cm each with abscess drainage. Estimated Blood Loss: Less than 10 mL. Specimen: Mass x3 adjacent on the area at the base of the scrotum to the left, to the right, and mid line. There is purulent discharge present, it is superficial in the subcutaneous tissue. Anesthesia: General plus local. Indication: This is the case of a male, who came to us with pneumonia, also found to have infected m adames on the perineum. He was cleared from a medical standpoint. Since and tender, we pr oceeded then to drain the abscess, but I do not think we will be able to drain the abscess unless we remove that lump, so we are scheduling him for excisional biopsy of an infected subcutaneous mass wit h abscess drainage with benefits, alternatives, and risks including, but not limited to infection, bl eeding, damage to adjacent structures, anesthesia complication, recurrence, MD, and even . He a lso understands this may not relieve symptoms, he might need more than one surgical intervention. He also understands this may require wound care. He understood also it may exacerbate his pneumonia si nce he is so tender in that area that he will require anesthetic. He understood, signed a consent. Description Of Procedure: The patient's area of concern was marked by me and him in the holding room . The patient was brought to the operating room, placed in supine position. Anesthesia was done wit hout complication. The patient was placed in lithotomy position with proper protection. The perinea l area was prepped and draped in sterile fashion. We proceeded to do each mass individually by using the same technique, which consisted with the help of a knife and a Bovie cauterizer. We went around the skin, removed the skin been affected by this subcutaneous mass, and then we found the pus undern eath and we cultured one of them. We noticed that deep in the subcutaneous tissue was intact, does n ot penetrate the scrotum. Each mass was done individually. Hemostasis was obtained and then local a nesthesia was applied after irrigation and then we packed each area with wet-to-dry dressing. The chyna bellamy tolerated the procedure well. The patient was sent to recovery in stable condition. RICHARD/TAMIKO Voice ID: [id number] Report ID: [id number]
[2023-09-14] MEDS: VANCOMYCIN 1.5 GM in NA CHLORIDE 0.9% 500 ML IVPB SCH (22:47)
[2023-09-14] MEDS: POTASSIUM CL SA 10 MEQ TAB PO ONE (22:55)
[2023-09-15] MEDS: ONDANSETRON 4 MG/2 ML VIAL IV PRN (02:40)
[2023-09-15] MEDS: MORPHINE 2 MG/ML SYR IV PRN (02:41)
[2023-09-15 07:07] LABS: Absolute Eosinophils 0.2 K/uL (0-0.5); Absolute Lymphocytes (CBC) 1.4 K/uL (0.7-4.9); Absolute Monocytes 0.6 K/uL (0.1-1.3); Absolute Neutrophil 4.4 K/uL (1.8-8.0); Basophils % 0.4 % (0-1.3); Eosinophils % 3.2 % (0-4.4); Hematocrit 25.1 % (39.6-49.0); Hemoglobin 8.2 g/dL (13.6-17.9); Lymphocytes % 21.2 % (15.3-44.8); MCH 33.4 pg (27.0-35.0); MCHC 32.5 g/dL (32.0-36.0); MCV 102.8 fL (80-100); MPV 8.1 fL (7.6-11.3); Monocytes % 9.1 % (3.3-12.3); Neutrophils % 66.1 % (41.7-73.7); Nucleated Red Blood Cells % 0.2 % (0-0); Platelets 174 thou/uL (152-406); RBC Red Blood Cell Count 2.44 M/uL (4.33-5.43); Red Cell Distribution Width 18.4 % (12.1-15.2)
[2023-09-15 07:19] LABS: Anion Gap 7.1 mEq/L (5.0-15.0); Potassium 3.1 mEq/L (3.5-5.1)
[2023-09-15 08:33] VITALS: BP 127/60; TEMP 97.6
--- NOTE | 2023-09-15 08:45 | P.DS ---
Admission Date: 09/12/23 Discharge Date: 09/15/23 Disposition: ROUTINE DISCHARGE Discharge Condition: FAIR Reason for Admission: Dizziness falls acute renal failure pneumonia Brief History of Present Illness: 47-year-old gentleman with a history of recurrent UTI came to the emergency room because of a feeling of passing out and dizziness. He was diagnosed with another episode of UTI about 2 and half months ago. He denied any fever or chills. Patient was evaluated in the ED and noted to have acute kidney injury, checks x- ray demonstrated possible left-sided pneumonia. Patient was hospitalized for further management. Hospital Course: Diagnosis Bilateral lower lung opacities L > R; presumed pneumonia UTI, POA; recurrent UTIs prior skin graft to penis Scrotal/Perineal cyst vs abscess MIGUEL on CKD2 Hypokalemia Hypertension NIDDM2 Chronic anemia Chronic back pain Hx Rahul-en-Y gastric bypass Bilateral lower lung opacities L > R; presumed pneumonia CT chest (09/11): groundglass opacities L > R, ?infectious pneumonia vs edematous also noted several prominent fluid-filled small bowel loops in left abdomen. Gradual transition to normal caliber bowel in RLQ present. Possibly secondary to ileus. Mild-mod stool burden CT 1 month ago also noted mild-mod patchy ground glass and tree-in-bud opacities Patient treated with empiric antibiotics-IV vancomycin and cefepime He was afebrile, no leukocytosis. 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 urine cx (09/11): 4+ GNR, organism ID and antibiotic sensitivities still pending. Patient treated with empiric IV cefepime. afebrile, no leukocytosis Patient discharged with Augmentin and doxycycline. Scrotal/Perineal cyst vs abscess first noticed palpable lumps/boil over perineum and scrotal base ~1 week ago. +tender Dr. Fowler, general surgery evaluated patient and performed I&D of 3 abscesses. Abscesses look clean, local wound care with Bactroban [address] Fowler Follow-up with Dr. Fowler in the wound care clinic. MIGUEL on CKD2 Hypokalemia Renal function improved with IV hydration, I suspect creatinine has improved to baseline. Hypokalemia corrected. Hypertension Continued home medications. NIDDM2 Managed with insulin sliding scale. Chronic anemia Macrocytic anemia Hemoglobin stable. Chronic back pain Continued home meds Vital Signs/Physical Exam: Temp Pulse Resp BP Pulse Ox 97.6 F 71 16 127/60 99 09/15/23 08:00 09/15/23 08:00 09/15/23 08:00 09/15/23 08:00 09/15/23 08:00 General: Alert, In no apparent distress, Oriented x3 HEENT: Mucous membr. moist/pink Neck: JVD not distended Respiratory: Clear to auscultation bilaterally, Normal air movement Cardiovascular: No edema, Regular rate/rhythm, Normal S1 S2 Gastrointestinal: Soft and benign, Non-distended, No tenderness Musculoskeletal: No swelling Integumentary: No cyanosis Neurological: Normal strength at 5/5 x4 extr Laboratory Data at Discharge: WBC 6.70 thou/uL (4.3-10.9) 09/15/23 06:51 Hgb 8.2 g/dL (13.6-17.9) L 09/15/23 06:51 Hct 25.1 % (39.6-49.0) L 09/15/23 06:51 Plt Count 174 thou/uL (152-406) 09/15/23 06:51 PT 12.1 SECONDS (9.4-12.5) 09/11/23 22:25 INR 1.08 09/11/23 22:25 Sodium 144 mEq/L (136-145) 09/15/23 06:51 Potassium 3.1 mEq/L (3.5-5.1) L 09/15/23 06:51 BUN 15 mg/dL (7-18) 09/15/23 06:51 Creatinine 1.39 mg/dL (0.70-1.30) H 09/15/23 06:51 Glucose 95 mg/dL (74-106) 09/15/23 06:51 Magnesium 1.4 mg/dL (1.6-2.4) L 09/14/23 05:11 Total Bilirubin 0.2 mg/dL (0.2-1.0) 09/14/23 05:11 AST 17 U/L (15-37) 09/14/23 05:11 ALT 21 U/L (16-61) 09/14/23 05:11 Alkaline Phosphatase 160 U/L (45-117) H 09/14/23 05:11 Home Medications: Gabapentin [Neurontin] 600 mg PO TID 04/02/19 Fluoxetine HCl [Prozac] 1 cap PO DAILY 12/20/20 Morphine *Extended Release* [MS Contin*] 1 tab PO DAILY 12/20/20 Carvedilol [Coreg] 12.5 mg PO BID 01/05/22 Hydrocodone Bit/Acetaminophen [Hydrocodon-Acetaminophn 10-325] 10 mg PO Q6H PRN 01/05/22 Collagenase [Santyl Ointment*] 30 gm TP BEDTIME 02/17/22 Doxepin HCl 75 mg PO BEDTIME 02/17/22 Cyclobenzaprine [Flexeril*] 10 mg PO TID PRN 09/12/23 Amox/Clavulanate [Augmentin 875-125 Tab] 1 each PO BID #20 tab 09/15/23 Doxycycline Hyclate 100 mg PO BID #20 cap 09/15/23 New Medications: Amox/Clavulanate [Augmentin 875-125 Tab] 1 each PO BID #20 tab Doxycycline Hyclate 100 mg PO BID #20 cap Physician Discharge Instructions: Wound care: Apply bactroban/mupirocin cream to wounds, cover with gauze twice a day. Diet: ADA Activity: Ad ethan Followup: Angelo Fowler MD [ACTIVE - CAN ADMIT] - 09/21/23 (Next week Wednesday09/21/2023 at the wound care clinic) Erma Riojas FNP [Primary Care Provider] - 1-2 Weeks Time spent managing pt's care (in minutes): 36
[2023-09-15] MEDS: POTASSIUM CL SA 10 MEQ TAB PO ONE (09:02)
[2023-09-15] MEDS ORDERED: MUPIROCIN 2% OINT 22GM TUBE TOP SCH (10:30)
--- NOTE | 2023-09-15 13:11 | PN ---
Patient is out for surgical debridement. We will re-evaluate the patient tomorrow. NF/MODL Voice ID: [id number] Report ID: [id number]
== END 2023-09-15 11:35 | disposition home or self-care (01) | DRG 682 ==
LOC: ER 21:00 → ERHOLD 09-12 01:17 → 2ND 09-12 11:17
PROVIDERS: ADMIT Internal Medicine Sleep Medicine; ATTEND Internal Medicine
PROC: 0J9B0ZX Drainage of Perineum Subcutaneous Tissue and Fascia, Open Approach, Diagnostic (ICD-10-PCS; principal; 2023-09-14 11:00)
DX: N17.9 Acute kidney failure, unspecified (principal); J18.9 Pneumonia, unspecified organism; K56.7 Ileus, unspecified; L02.215 Cutaneous abscess of perineum; N39.0 Urinary tract infection, site not specified; I12.9 Hypertensive chronic kidney disease with stage 1 through stage 4 chronic kidney disease, or unspecified chronic kidney disease; N18.2 Chronic kidney disease, stage 2 (mild); E11.22 Type 2 diabetes mellitus with diabetic chronic kidney disease; D63.1 Anemia in chronic kidney disease; E87.6 Hypokalemia; G89.29 Other chronic pain; M54.9 Dorsalgia, unspecified; R29.6 Repeated falls; Z91.81 History of falling; Z98.84 Bariatric surgery status
CPT/HCPCS: 36415; 71045; 71250; 74176; 76870; 76881; 80048; 80053; 80076; 80202; 81001; 82947; 83735; 83880; 84484; 85025; 85610; 87070; 87075; 87086; 87088; 87205; 88304; 88305; 93005; 96361; 96365; 96366; 99285; J0692; J0696; J2001; J2250; J2270; J2405; J2704; J3010; J3475; J3480; J7030; J7040

== ENCOUNTER 2023-11-10 07:50 | Emergency (ER) | payer OTHER, SELFPAY ==
[2023-11-10 08:32] LABS: Absolute Eosinophils 0.1 K/uL (0-0.5); Absolute Lymphocytes (CBC) 1.6 K/uL (0.7-4.9); Absolute Monocytes 0.4 K/uL (0.1-1.3); Absolute Neutrophil 4.9 K/uL (1.8-8.0); Basophils % 0.5 % (0-1.3); Eosinophils % 1.5 % (0-4.4); Hematocrit 29.2 % (39.6-49.0); Hemoglobin 9.4 g/dL (13.6-17.9); Lymphocytes % 22.2 % (15.3-44.8); MCH 34.7 pg (27.0-35.0); MCHC 32.2 g/dL (32.0-36.0); MCV 107.9 fL (80-100); MPV 7.3 fL (7.6-11.3); Monocytes % 5.7 % (3.3-12.3); Neutrophils % 70.1 % (41.7-73.7); Nucleated Red Blood Cells % 0.1 % (0-0); Platelets 348 thou/uL (152-406); Red Cell Distribution Width 16.9 % (12.1-15.2)
--- NOTE | 2023-11-10 08:44 | RAD REPORT ---
EXAMINATION: CT HEAD WITHOUT CONTRAST CT CERVICAL SPINE WITHOUT CONTRAST CLINICAL INDICATION: Head and neck injury status post fall. Head and neck pain. Dizziness TECHNIQUE: Axial CT images from the skull base to the vertex without intravenous contrast. Axial CT i mages through the cervical spine were obtained without intravenous contrast. Sagittal and coronal reformatted images were created from the data set. Coronal and sagittal reformatted images were creat ed from the data set. One or more of the following dose reduction techniques were used: Automated exposure control, adjustment of the mA and/or kV according to patient size, and/or iterative reconstr uction. Unless otherwise specified, incidental findings do not require dedicated imaging follow-up. [id number]. Comparison: 2022 FINDINGS: Intracranial bleed not noted. Ventricles are normal in caliber. No significant hypodensity within the brain No extra-axial fluid collection. No fluid within the sinuses/mastoids No fracture or dislocation is seen involving the cervical spine. IMPRESSION: No acute intracranial abnormality noted A cervical fracture is not seen. If the patient continues to have symptoms to suggest acute [employer]/spinal pathology then MRI would be rec ommended
[2023-11-10 08:47] LABS: PT Prothrombin Time 10.3 SECONDS (9.4-12.5); PTT, Activated Partial Thromb 31.8 SECONDS (24.3-36.9); Protime INR 0.92
[2023-11-10 08:53] LABS: Albumin 2.8 g/dL (3.4-5.0); Albumin/Globulin Ratio 0.7 (1.1-1.8); Anion Gap 12.3 mEq/L (5.0-15.0); Bilirubin Direct 0.2 mg/dL (0-0.2); Bilirubin Indirect, Calculated 0.2 mg/dL (0.2-0.8); Bilirubin Total 0.4 mg/dL (0.2-1.0); Globulin 4.1 g/dL (2.3-3.5); Magnesium 1.6 mg/dL (1.6-2.4); Potassium 4.3 mEq/L (3.5-5.1); Protein, Total 6.9 g/dL (6.4-8.2); Troponin High Sensitivity 4.5 pg/mL (<58.9)
[2023-11-10 08:57] LABS: Specific Gravity 1.023 (1.005-1.030); Sqamous Epithelial <5 /HPF (None Seen); Urine Bacteria None Seen /HPF (<20); Urine Bilirubin NEGATIVE (Negative); Urine Blood Negative (Negative); Urine Clarity Clear (Clear); Urine Color Light-Yellow (Yellow); Urine Culture Reflex Order NOT NEEDED; Urine Glucose NEGATIVE (Negative); Urine Ketones NEGATIVE (Negative); Urine Microscopic Reflex YN ORDER UMIC; Urine Nitrite NEGATIVE (Negative); Urine Protein 1+ (Negative); Urine RBC <5 /HPF (None Seen); Urine Urobilinogen Normal (Normal); Urine WBC <5 /HPF (<5)
--- NOTE | 2023-11-10 09:27 | RAD REPORT ---
Procedure: Chest Single View History: Hypertension and dizziness Comparison: September 2023 The lungs appear clear of acute infiltrate. No significant pleural effusion noted. The heart is normal size. IMPRESSION: No acute abnormality is displayed.
[2023-11-10 09:49] LABS: Blood Morphology Comment NOTED (NOT SEEN); Burr Cells FEW; Macrocytosis 1+; Platelet Estimate ADEQ; Poikilocytosis 1+; Polychromasia 1+; Teardrop Cell FEW; White Blood Cell Scan OK (OK)
--- NOTE | 2023-11-10 10:16 | ER ---
Nurse's Notes [facility] Name: Rhett Ayers Age: 47 yrs Sex: Male : 1975 Arrival Date: 11/10/2023 Time: 07:50 Bed 2 Private MD: Diagnosis: Dehydration;Muscle weakness (generalized);Chronic kidney disease, unspecified;Anemia, unspecified Presentation: 11/09 08:12 Chief complaint: Patient states: Generalized weakness and fatigue that has been ongoing ph for "a few weeks" but has recently gotten worse. Coronavirus screen: Vaccine status: Patient reports receiving the 2nd dose of the covid vaccine. Ebola Screen: No symptoms or risks identified at this time. Initial Sepsis Screen: Does the patient meet any 2 criteria? No. Patient's initial sepsis screen is negative. Does the patient have a suspected source of infection? No. Patient's initial sepsis screen is negative. Risk Assessment: Do you want to hurt yourself or someone else? Patient reports no desire to harm self or others. 08:12 Method Of Arrival: Ambulatory ph 08:12 Acuity: SANTI[place] 3 ph 08:19 Onset of symptoms was November 10, 2023. ph Triage Assessment: 08:16 General: Appears in no apparent distress. comfortable, Behavior is calm, cooperative. ph Pain: Denies pain. Neuro: Level of Consciousness is awake, alert, obeys commands, Oriented to person, place, time, situation, Reports weakness. Cardiovascular: Reports fatigue, lightheadedness, nausea, vomiting, Capillary refill < 3 seconds in bilateral fingers Patient's skin is warm and dry. Respiratory: Airway is patent Respiratory effort is even, unlabored. GI: Reports nausea, vomiting. Derm: Skin is pale. Historical: - Allergies: 07:57 No Known Allergies; ll1 - PMHx: 07:57 CKD; compressed discs; Diabetes - NIDDM; gastric ulcer; Hypertension; Kidney stone; ll1 Orthostatic hypotension; peptic ulcer disease (Unknown); - Immunization history:: Adult Immunizations up to date. - Infectious Disease History:: Denies. - Family history:: not pertinent. - Social history:: Smoking status: Patient denies any tobacco usage or history of. - Hospitalizations: : No recent hospitalization is reported. Screenin:18 [facility] ED Fall Risk Assessment (Adult) History of falling in the last 3 months, ph including since admission Yes- physiologic fall (2 pts) Confusion or Disorientation No (0 pts) Intoxicated or Sedated No (0 pts) Impaired Gait No (0 pts) Mobility Assist Device Used No (0 pt) Altered Elimination No (0 pt) Score/Fall Risk Level 0 - 2 = Low Risk Oriented to surroundings, Maintained a safe environment, Hourly rounding (assess needs \\T\\ fall precautionary measures) done. Abuse screen: Denies threats or abuse. Denies injuries from another. Nutritional screening: On. Nutritional screening: No deficits noted. Tuberculosis screening: No symptoms or risk factors identified. Assessment: 08:24 General: SEE TRIAGE ASSESSMENT. ph 10:14 Reassessment: Patient appears in no apparent distress at this time. Patient is alert, bp oriented x 3, equal unlabored respirations, skin warm/dry/pink. 10:16 Reassessment: DC ON HOLD FOR COMPLETED IVF. bp Vital Signs: 08:12 BP 117 / 78; Pulse 79; Resp 18; Temp 97.3; Pulse Ox 98% on R/A; Weight 99.79 kg; Height ph 6 ft. 2 in. ; 10:13 BP 116 / 79; Pulse 69; Resp 17; Pulse Ox 100% ; bp 08:12 Body Mass Index 28.25 (99.79 kg, 187.96 cm) ph ED Course: 07:52 Patient arrived in ED. ra3 07:55 Kenroy Thomas MD is Attending Physician. rn 07:57 Arm band placed on Patient placed in an exam room, on a stretcher. ll1 07:58 Vanessa Bradley, RN is Primary Nurse. ph 08:16 Triage completed. ph 08:19 Patient has correct armband on for positive identification. Bed in low position. Call ph light in reach. Side rails up X 1. Client placed on continuous cardiac and pulse oximetry monitoring. NIBP monitoring applied. ekg monitor on. Door closed. Noise minimized. Warm blanket given. Pillow given. 08:23 Basic Metabolic Panel Sent. ph 08:23 CBC with Diff Sent. ph 08:23 Hepatic Function Sent. ph 08:23 Magnesium Sent. ph 08:23 Protime (+inr) Sent. ph 08:23 Ptt, Activated Sent. ph 08:23 Troponin High Sensitivity Sent. ph 08:24 Initial lab(s) drawn, by me, sent to lab. EKG done, by ED staff, reviewed by Kenroy Thomas MD. Inserted saline lock: 20 gauge in right antecubital area, using aseptic technique. Blood collected. Flushed with 10 mL NS. 08:25 CT Head C Spine In Process Unspecified. EDMS 08:58 Chest Single View XRAY In Process Unspecified. EDMS 10:36 No provider procedures requiring assistance completed. IV discontinued, intact, ph bleeding controlled, No redness/swelling at site. Pressure dressing applied. Administered Medications: 08:52 Drug: NS 0.9% IV 500 ml IV at bolus once Route: IV; Rate: bolus; Site: right ph antecubital; 09:30 Follow up: Response: No adverse reaction; IV Status: Completed infusion; IV Intake: ph 500ml 09:42 Drug: NS 0.9% IV 500 ml IV at bolus once Route: IV; Rate: bolus; Site: right bp antecubital; 10:20 Follow up: Response: No adverse reaction; IV Status: Completed infusion; IV Intake: ph 500ml Medication: 08:18 VIS not applicable for this client. ph Intake: 09:30 IV: 500ml; Total: 500ml. ph 10:20 IV: 500ml; Total: 1000ml. ph Outcome: 10:15 Discharge ordered by . rn 10:36 Discharged to home ambulatory, with significant other, ph 10:36 Condition: good 10:36 Discharge instructions given to patient, Instructed on discharge instructions, follow up and referral plans. Demonstrated understanding of instructions, follow-up care, 10:36 Patient left the ED. ph Signatures: Dispatcher [employer] [facility] Kenroy Thomas MD MD rn Hall, Patricia, RN RN Juarez Arthur RN RN bp Lewis, Lynsay, RN RN pedro1 Arielle Talley ra3
--- NOTE | 2023-11-10 10:16 | EDPHYS ---
Physician Documentation [facility] Name: Rhett Ayers Age: 47 yrs Sex: Male : 1975 Arrival Date: 11/10/2023 Time: 07:50 Bed 2 Private MD: ED Physician Kenroy Thomas HPI: 11/09 10:10 This 47 yrs old Male presents to ER via Ambulatory with complaints of Weakness.rn 10:10 The patient presents to the emergency department with weakness of the entire body, rn generalized weakness. Onset: The symptoms/episode began/occurred at an unknown time. Associated signs and symptoms: Pertinent positives: This patient does not have any pertinent positives. Pertinent negatives: fever, headache, neck stiffness, seizure, syncope, blurred vision, double vision, visual field changes, loss of vision. Severity of symptoms: At their worst the symptoms were mild in the emergency department the symptoms are unchanged. Current symptoms: Generalized weakness. The patient has experienced similar episodes in the past. Patient reports months of generalized malaise and dizziness with feeling lightheaded. States recurrent falls. No clear etiology for his dizziness or falls. Has chronic kidney disease and chronic anemia, no longer gets his iron infusions but denies any acute loss of bladder or intestinal bleeding. No chest pain or shortness of breath. No fever or chills. Just completed round of antibiotics for urinary tract infection and feels much better. Patient got lightheaded and leaned up against the wall, may have struck his head, no LOC denies injury from fall.. Historical: - Allergies: 07:57 No Known Allergies; ll1 - PMHx: 07:57 CKD; compressed discs; Diabetes - NIDDM; gastric ulcer; Hypertension; Kidney stone; ll1 Orthostatic hypotension; peptic ulcer disease (Unknown); - Immunization history:: Adult Immunizations up to date. - Infectious Disease History:: Denies. - Family history:: not pertinent. - Social history:: Smoking status: Patient denies any tobacco usage or history of. - Hospitalizations: : No recent hospitalization is reported. ROS: 10:10 Constitutional: Negative for fever, chills Neck: Negative for injury, pain, and rn swelling, Cardiovascular: Negative for chest pain, palpitations, and edema, Respiratory: Negative for shortness of breath, cough, wheezing, and pleuritic chest pain, Abdomen/GI: Negative for abdominal pain, nausea, vomiting, diarrhea, and constipation, Back: Negative for injury and pain, : Negative for injury, bleeding, discharge, and swelling, MS/Extremity: Negative for injury and deformity, Skin: Negative for injury, rash, and discoloration, Neuro: Positive for generalized weakness Exam: 10:10 Constitutional: This is a well developed, well nourished patient who is awake, alert, rn and in no acute distress. Ambulatory to room without difficulty or assistance Head/Face: Normocephalic, atraumatic. ENT: Dry mucous membranes Neck: No midline cervical tenderness Cardiovascular: Regular rate and rhythm. No pulse deficits. Respiratory: No increased work of breathing, no retractions or nasal flaring. Abdomen/GI: Soft, nontender MS/ Extremity: Pulses equal, no cyanosis. Neurovascular intact. Full, normal range of motion. Equal circumference. Neuro: Awake and alert, GCS 15, oriented to person, place, time, and situation. Cranial nerves II-XII grossly intact. Motor strength 4/5 in all extremities. Sensory grossly intact. Cerebellar exam normal. Normal gait. 11:03 ECG was reviewed by the Attending Physician. rn Vital Signs: 08:12 BP 117 / 78; Pulse 79; Resp 18; Temp 97.3; Pulse Ox 98% on R/A; Weight 99.79 kg; Height ph 6 ft. 2 in. ; 10:13 BP 116 / 79; Pulse 69; Resp 17; Pulse Ox 100% ; bp 08:12 Body Mass Index 28.25 (99.79 kg, 187.96 cm) ph MDM: 07:55 Patient medically screened. rn 10:10 Data reviewed: vital signs, nurses notes, lab test result(s), EKG, radiologic studies, rn CT scan, plain films, and as a result, I will discharge patient. Care significantly affected by the following chronic conditions: Diabetes, Hypertension, Chronic Kidney Disease. Counseling: I had a detailed discussion with the patient and/or guardian regarding the historical points, exam findings, and any diagnostic results supporting the discharge/admit diagnosis, lab results, radiology results, the need for outpatient follow up, to return to the emergency department if symptoms worsen or persist or if there are any questions or concerns that arise at home. Special discussion: I discussed with the patient/guardian in detail that at this point there is no indication for admission to the hospital. It is understood, however, that if the symptoms persist or worsen the patient needs to return immediately for re-evaluation. Based on the history and exam findings, there is no indication for further emergent testing or inpatient evaluation. I discussed with the patient/guardian the need to see the primary care provider for further evaluation of the symptoms. ED course: No acute findings and workup. Signs of his known chronic kidney disease and chronic anemia. CT head and C-spine negative for acute findings. Improved after IV fluids. Will discharge home with PCP follow-up and given return precautions.. 11/09 08:05 Order name: Basic Metabolic Panel; Complete Time: 09:33 rn 11/09 08:05 Order name: CBC with Diff; Complete Time: 09:56 rn 11/09 08:05 Order name: Hepatic Function; Complete Time: :33 rn 11/09 08:05 Order name: Magnesium; Complete Time: :33 rn 11/09 08:05 Order name: Protime (+inr); Complete Time: :33 rn 11/09 08:05 Order name: Ptt, Activated; Complete Time: :33 rn 11/09 08:05 Order name: Troponin High Sensitivity; Complete Time: 09:33 rn 11/09 08:05 Order name: Urinalysis w/ reflexes; Complete Time: :33 rn 11/09 08:44 Order name: CBC Smear Scan; Complete Time: 09:56 EDMS 11/09 08:05 Order name: CT Head C Spine; Complete Time: 09:33 rn 11/09 08:05 Order name: Chest Single View XRAY; Complete Time: :33 rn 11/09 08:05 Order name: Cardiac monitoring; Complete Time: 08:41 rn 11/09 08:05 Order name: EKG - Nurse/Tech; Complete Time: 08:41 rn 11/09 08:05 Order name: IV Saline Lock; Complete Time: 08:23 rn 11/09 08:05 Order name: Labs collected and sent; Complete Time: 08:23 rn 11/09 08:05 Order name: O2 Per Protocol; Complete Time: 08:19 rn 11/09 08:05 Order name: O2 Sat Monitoring; Complete Time: 08:19 rn EC:03 Rate is 73 beats/min. Rhythm is regular. QRS Lewis is Normal. MI interval is normal. QRS rn interval is normal. QT interval is normal. No Q waves. T waves are Normal. No ST changes noted. Clinical impression: NSR w/ Non-specific ST/T Changes. Interpreted by me. Reviewed by me. Administered Medications: 08:52 Drug: NS 0.9% IV 500 ml IV at bolus once Route: IV; Rate: bolus; Site: right ph antecubital; 09:30 Follow up: Response: No adverse reaction; IV Status: Completed infusion; IV Intake: ph 500ml 09:42 Drug: NS 0.9% IV 500 ml IV at bolus once Route: IV; Rate: bolus; Site: right bp antecubital; 10:20 Follow up: Response: No adverse reaction; IV Status: Completed infusion; IV Intake: ph 500ml Disposition Summary: 11/10/23 10:15 Discharge Ordered Notes: Location: Home rn Problem: an ongoing problem rn Symptoms: have improved rn Condition: Stable rn Diagnosis - Dehydration rn - Muscle weakness (generalized) rn - Chronic kidney disease, unspecified rn - Anemia, unspecified rn Followup: rn - With: Private Physician - When: As needed - Reason: Recheck today's complaints, Re-evaluation by your physician Discharge Instructions: - Discharge Summary Sheet rn - Anemia rn - Weakness rn - Chronic Kidney Disease, Adult rn Forms: - Medication Reconciliation Form rn - Antibiotic rn plasma center - Prescription Opioid Use rn - Patient Portal Instructions rn - Leadership Thank You Letter rn Signatures: Dispatcher [employer] EDMS Kenroy Thomas MD MD rn Hall, Patricia, RN RN Juarez Arthur, RN RN Prateek Sorenson, RN RN ll1 Corrections: (The following items were deleted from the chart) 08:06 08:06 BASIC METABOLIC PANEL+C.LAB.BRZ ordered. EDMS EDMS 08:06 08:06 CBC+H.LAB.BRZ ordered. EDMS EDMS 08:06 08:06 HEPATIC FUNCTION+C.LAB.BRZ ordered. EDMS EDMS 08:06 08:06 MAGNESIUM+C.LAB.BRZ ordered. EDMS EDMS 08:06 08:06 PROTIME (+INR)+COAG.LAB.BRZ ordered. EDMS EDMS 08:06 08:06 PTT, ACTIVATED+COAG.LAB.BRZ ordered. EDMS EDMS 08:06 08:06 Troponin High Sensitivity+C.LAB.BRZ ordered. EDMS EDMS 08: 08:06 Urinalysis+U.LAB.BRZ ordered. EDMS EDMS 08: 08:06 Head C Spine MPR Wo Con+CT.RAD.BRZ ordered. EDMS EDMS 08: 08:06 Chest Single View+RAD.RAD.BRZ ordered. EDMS EDMS
[2023-11-10 22:50] VITALS: BP 117/78; TEMP 97.3; O2SAT 98
--- NOTE | 2023-11-12 16:42 | EKG ---
Test Date: 2023-11-10 Test Time: 08:38:34 [employer] Operator: ANGEL MEASUREMENT RESULTS: Intervals: Rate: 73 NJ: 164 QRSD: 106 QT: 388 QTc: 427 Bayard: P: 1 NJ: 164 QRS: 12 T: 40 INTERPRETIVE STATEMENTS: Normal sinus rhythm Nonspecific T wave abnormality Abnormal ECG Compared to ECG 09/11/2023 22:36:51 No significant changes Electronically Signed On 11-12-23 16:34:34 CDT by Trell Ewrin
== END 2023-11-10 10:36 | disposition home or self-care (01) ==
LOC: ER 07:50
DX: E86.0 Dehydration (principal); D64.9 Anemia, unspecified; M62.81 Muscle weakness (generalized); N18.9 Chronic kidney disease, unspecified; E11.9 Type 2 diabetes mellitus without complications; I10 Essential (primary) hypertension; I95.1 Orthostatic hypotension
CPT/HCPCS: 36415; 70450; 71045; 72125; 80048; 80076; 81001; 83735; 84484; 85025; 85610; 85730; 93005; 96360; 99285

== ENCOUNTER 2023-12-18 17:35 | Inpatient (IN) | payer OTHER ==
[2023-12-18] MEDS ORDERED: NA CHLORIDE 0.9% 1,000 ML ONE (18:35)
--- NOTE | 2023-12-18 18:45 | RAD REPORT ---
EXAMINATION: ONE VIEW CHEST XR CLINICAL INDICATION: Male, 48 years old.SOB TECHNIQUE: 1 View, AP supine, X-ray of the chest was performed. [id number]. COMPARISON: Chest radiograph 11/10/2023, chest CT 09/12/2023 FINDINGS: Lungs and pleura: Ill-defined bilateral airspace disease which has progressed since 11/10/2023. No eff usion. Heart and mediastinum: Normal heart size. Unremarkable mediastinal contours. Osseous structures: No acute abnormality. Tubes/lines: None Other: None. IMPRESSION: Increased ill-defined irregular bilateral airspace disease which could reflect multifocal pneumonia.
[2023-12-18 19:07] LABS: Absolute Lymphocytes (CBC) 0.6 K/uL (0.7-4.9); Absolute Monocytes 0.4 K/uL (0.1-1.3); Absolute Neutrophil 21.6 K/uL (1.8-8.0); Basophils % 0.1 % (0-1.3); Eosinophils % 0.1 % (0-4.4); Hematocrit 27.3 % (39.6-49.0); Hemoglobin 8.8 g/dL (13.6-17.9); Lymphocytes % 2.5 % (15.3-44.8); MCHC 32.2 g/dL (32.0-36.0); MCV 111.8 fL (80-100); MPV 7.7 fL (7.6-11.3); Monocytes % 1.9 % (3.3-12.3); Neutrophils % 95.4 % (41.7-73.7); Platelets 288 thou/uL (152-406); RBC Red Blood Cell Count 2.44 M/uL (4.33-5.43)
[2023-12-18 19:23] LABS: Albumin 1.6 g/dL (3.4-5.0); Albumin/Globulin Ratio 0.4 (1.1-1.8); Anion Gap 13.5 mEq/L (5.0-15.0); Bilirubin Total 0.6 mg/dL (0.2-1.0); Potassium 3.5 mEq/L (3.5-5.1); Protein, Total 5.6 g/dL (6.4-8.2)
[2023-12-18 19:46] LABS: Differential Total Cells Count 100; Lymphocytes 4 % (15-42); Monocytes 4 % (0-10); Platelet Estimate ADEQ; Segmented Neutrophils 92 % (40-80); Toxic Granulation 1+
[2023-12-18 19:47] LABS: Blood Morphology Comment NOTED (NOT SEEN); Macrocytosis 2+
--- NOTE | 2023-12-18 21:07 | RAD REPORT ---
EXAM: CT CHEST, ABDOMEN AND PELVIS WITHOUT CONTRAST CLINICAL INDICATION: Male, 48 years old Abd pain;Rectal drainage;SOB TECHNIQUE: CT chest, abdomen and pelvis was performed, without IV contrast, [facility] Axial, sagittal and coronal reconstructions were obtained. One or more of the following dose reduction techniques were used: Automated exposure control, adjustment of the mA and/or kV according to the patient size, and/or iterative reconstruction. Unless otherwise specified, incidental findings do not require dedicated imaging follow-up. [id number]. COMPARISON: 09/12/2023, 08/15/2023 FINDINGS: The lack of intravenous contrast limits the sensitivity of this exam for evaluation of solid visceral organs, vascular structures, and retroperitoneum. Chest: LOWER NECK/CHEST WALL: Visualized thyroid gland and soft tissues are normal. LUNGS AND AIRWAYS: Worsened multifocal nodular and groundglass opacities, previously mainly in the le ft lung and now diffuse. PLEURA: No pleural effusion. No pneumothorax. Hemidiaphragms are normally positioned. MEDIASTINUM AND LYMPH NODES: Dense material in the distal esophagus could be from a prior study with oral contrast. THORACIC AORTA: Normal caliber and configuration. PULMONARY ARTERIES: Normal caliber. HEART: Trace pericardial effusion. Coronary artery calcifications which are mild. Abdomen/Pelvis LIVER: Normal in size and contour. No focal lesion. GALLBLADDER/BILE DUCTS: Cholecystectomy PANCREAS: Pancreatic atrophy. SPLEEN: Normal size. No focal lesion. ADRENALS: Normal; no mass. KIDNEYS AND URETERS: Punctate stone in the right kidney. No hydronephrosis. GASTROINTESTINAL TRACT: Rahul-en-Y gastric bypass. Moderate stool in the colon. No bowel obstruction. PERITONEUM: No free fluid. LYMPH NODES: No lymphadenopathy. ABDOMINAL AORTA AND OTHER VESSELS: Normal caliber aorta and IVC. URINARY BLADDER: Normal contour. REPRODUCTIVE ORGANS: No pathologic process. MUSCULOSKELETAL: No acute or suspicious osseous abnormality. Healed remote left 11th rib fracture. Re mote T11 compression fracture. ADDITIONAL FINDINGS: Gas and fluid containing collection in the right medial gluteal fold and periana l region measuring approximately 4.2 x 4.9 cm x 2 cm. IMPRESSION: 1. Perianal abscess with or without fistula. 2. Worsened bilateral airspace disease compared with 09/12/2023. The appearance is most consistent with infection or inflammation but the differential is broader as the findings are progressive and chronic. 3. Dense fluid in the distal esophagus is presumably recently ingested oral contrast. This may be fro m an outside facility. Oral contrast is seen distally within the bowel. Retention of contrast in the esophagus could be from reflux or possible a stricture. Chronic aspiration could conceivably expl ain the progressive lung findings.
--- NOTE | 2023-12-18 21:54 | EDPHYS ---
Physician Documentation [facility] Name: Rhett Ayers Age: 48 yrs Sex: Male : 1975 Arrival Date: 12/18/2023 Time: 17:35 Bed 20 Private MD: ED Physician Sly Norton HPI: 12/17 18:15 This 48 yrs old Male presents to ER via Wheelchair with complaints of cp Shortness Of Breath, Cyst. 18:15 The patient has shortness of breath with light activity. Onset: The symptoms/episode cp began/occurred gradually. Duration: The symptoms are continuous, and are steadily getting worse. Associated signs and symptoms: Pertinent positives: fatigue, Pertinent negatives: chest pain, fever, abdominal pain. 18:15 Patient reports noticing drainage from rectal area today with pain in rectum for cp "awhile". Historical: - Allergies: 17:46 No Known Allergies; tl4 - PMHx: 17:46 CKD; compressed discs; Diabetes - NIDDM; gastric ulcer; Hypertension; Kidney stone; tl4 Orthostatic hypotension; peptic ulcer disease (Unknown); - Immunization history:: Adult Immunizations unknown. - Infectious Disease History:: Denies. - Social history:: Smoking status: Patient denies any tobacco usage or history of. ROS: 18:20 Constitutional: Positive for fatigue, malaise, poor PO intake, Negative for fever, cp 18:20 Eyes: Negative for injury, pain, redness, and discharge, cp 18:20 ENT: Negative for drainage from ear(s), ear pain, sore throat, difficulty swallowing, difficulty handling secretions, 18:20 Cardiovascular: Negative for chest pain, edema, palpitations, 18:20 Respiratory: Positive for shortness of breath, on exertion. Negative for cough, wheezing, 18:20 Abdomen/GI: Positive for rectal pain, purulent drainage from rectal area, Negative for abdominal pain, vomiting, diarrhea, black/tarry stool, rectal bleeding, 18:20 Neuro: Positive for weakness, Negative for altered mental status, dizziness, headache, syncope, 18:20 All other systems are negative, Exam: 18:25 Constitutional: The patient appears in no acute distress, alert, awake, cp non-diaphoretic, non-toxic, well developed, well nourished, obviously ill, uncomfortable, 18:25 Head/Face: Normocephalic, atraumatic. cp 18:25 Eyes: Periorbital structures: appear normal, Pupils: equal, round, and reactive to light and accomodation, Extraocular movements: intact throughout, Conjunctiva: normal, no exudate, no injection, Sclera: no appreciated abnormality, Lids and lashes: appear normal, bilaterally, 18:25 ENT: External ear(s): are unremarkable, Nose: is normal, Mouth: Lips: dry, Oral mucosa: dry, Posterior pharynx: Airway: no evidence of obstruction, patent, 18:25 Neck: ROM/movement: is normal, is supple, without pain, no range of motions limitations, no meningismus, no nuchal rigidity, 18:25 Chest/axilla: Inspection: normal, Palpation: is normal, no crepitus, no tenderness, cp 18:25 Cardiovascular: Rate: tachycardic, Rhythm: regular, Edema: is not appreciated, JVD: is not appreciated, 18:25 Respiratory: the patient does not display signs of respiratory distress, Respirations: normal, no use of accessory muscles, no retractions, labored breathing, is not present, Breath sounds: are clear throughout, no decreased breath sounds, no stridor, no wheezing, 18:25 Abdomen/GI: Inspection: abdomen appears normal, Bowel sounds: active, all quadrants, Palpation: abdomen is soft and non-tender, in all quadrants, Rectal exam: open wound with purulent drainage noted right upper rectum. 18:25 Back: CVA tenderness, is absent, 18:25 Neuro: Orientation: to person, place \\T\\ time. Mentation: is normal, Motor: moves all cp fours, no focal deficits, Vital Signs: 17:43 BP 92 / 57; Pulse 110; Resp 20; Temp 97.7; Pulse Ox 96% on R/A; Weight 95.25 kg; Height tl4 6 ft. 2 in. ; Pain 9/10; 19:22 BP 102 / 68; Pulse 90; Resp 16; Pulse Ox 100% ; kj2 22:25 BP 104 / 70; Pulse 92; Resp 18; Pulse Ox 100% on R/A; kj2 17:43 Body Mass Index 26.96 (95.25 kg, 187.96 cm) tl4 17:43 Pain Scale: Adult tl4 MDM: 17:51 Medical Screening Exam initiated cp 21:38 Management of patient was discussed with the following: Credit Underwriter: DR Fowler who cp will consult and wants patient admitted to hospitalist services. 22:00 Data reviewed: vital signs, nurses notes, lab test result(s), EKG, radiologic studies, cp CT scan, and as a result, I will admit patient, administer antibiotics Zosyn and metronidazole. 12/17 18: Order name: Blood Culture Adult (2) 12/17 18: Order name: CBC with Diff; Complete Time: 20:01 12/17 20:01 Interpretation: Normal except: WBC 22.70; RBC 2.44; HGB 8.8; HCT 27.3; MCV 111.8; MCH cp 36.0; RDW 16.0; ANDREI% 95.4; LYM% 2.5; MN% 1.9; NEUT A 21.6; LYMA 0.6. 12/17 18:09 Order name: CMP; Complete Time: 20:01 12/17 20:02 Interpretation: Normal except: CL 119; CO2 13; GLUC 108; CRE 1.84; GFR 44; ALK 187; TP cp 5.6; ALB 1.6; GLOB 4.0; A/G 0.4. 12/17 18: Order name: Lactate w/ 2H reflex if indic.; Complete Time: 20:02 12/18 20:03 Interpretation: LAC 3.0; Reviewed. 12/17 18:09 Order name: Protime (+inr); Complete Time: 20:02 12/17 18:09 Order name: Ptt, Activated; Complete Time: 20:02 12/17 18:09 Order name: Urinalysis w/ reflexes 12/17 19:30 Order name: Manual Differential; Complete Time: 20:01 [facility] 12/17 21:54 Order name: Type And Screen; Complete Time: 20:02 12/17 22:03 Order name: Urinalysis w/ reflexes; Complete Time: 20:02 [facility] 12/17 22:03 Order name: CBC with Automated Diff [facility] 12/17 22:03 Order name: CBC with Automated Diff; Complete Time: 20:02 [facility] 12/17 22:03 Order name: Comprehensive Metabolic Panel [facility] 12/17 22:03 Order name: Comprehensive Metabolic Panel [facility] 12/17 18:09 Order name: Chest Single View XRAY; Complete Time: 20:01 cp 12/17 20:15 Order name: Chest Abd Pelvis Wo Con; Complete Time: 21:11 [facility] 12/17 22:03 Order name: CONS Physician Consult [facility] 12/17 18:09 Order name: Accucheck; Complete Time: 19:07 cp 12/17 18:09 Order name: Cardiac monitoring; Complete Time: 19:07 cp 12/17 18:09 Order name: EKG - Nurse/Tech; Complete Time: 19:03 cp 12/17 18:09 Order name: IV Saline Lock - Large Bore; Complete Time: 18:55 cp 12/17 18:09 Order name: O2 Per Protocol; Complete Time: 18:35 cp 12/17 18:09 Order name: O2 Sat Monitoring; Complete Time: 18:35 cp 12/17 18:09 Order name: Vital Signs; Complete Time: 18:35 cp Administered Medications: 21:39 Not Given (Physician Discretion): ns 0.9% 1000 ml IV at 1 bolus Per protocol; to be cp given as a bolus over 30 minutes 22:23 Drug: NS 0.9% IV (30 ml/kg) 30 ml/kg IV at bolus once; Sepsis Protocol; to be given as kj2 a bolus over 90 minutes {Note: midline in upper right arm.} Route: IV; Rate: bolus; Site: Other; 23:23 Follow up: IV Status: Infusion continued upon admission; IV Intake: 2000ml kj2 22:24 Drug: metroNIDAZOLE IVPB 500 mg 100 ml IVPB once over 30 mins Volume: 100 ml; Route: kj2 IVPB; Infused Over: 30 mins; Site: right upper arm; 22:55 Follow up: IV Status: Completed infusion; IV Intake: 100ml kj2 23:16 Follow up: Response: No adverse reaction kj2 23:23 Follow up: Response: No adverse reaction kj2 23:16 Drug: Piperacillin-Tazobactam IVPB 3.375 grams IVPB once over 60 mins; (mix in NS 100 kj2 mL) Route: IVPB; Infused Over: 60 mins; Site: right upper arm; 23:24 Follow up: IV Status: Infusion continued; Infusion continued upon admission kj2 Disposition Summary: 12/18/23 21:54 Hospitalization Ordered Notes: Hospitalization Status: Inpatient Admission cp Provider: Kanu Patrick cp Location: Telemetry/MedSurg (Inpatient) cp Condition: Stable cp Problem: new cp Symptoms: have improved cp Bed/Room Type: Standard cp Room Assignment: 229(12/18/23 22:08) rv1 Diagnosis - Severe sepsis without septic shock cp - Right Gluteal Fold and Perianal Abscess with Fistula cp - Anemia in chronic kidney disease cp Forms: - Medication Reconciliation Form cp - SBAR form cp - Leadership Thank You Letter cp Addendum: 12/20/2023 20:49 Co-signature as Attending Physician, Sly Norton MD I reviewed the patient's care r t provided by the Advanced Practice Provider and agree with the diagnosis and treatment plan. Signatures: Dispatcher [employer] EDMS Jose Carlos Carrasco PA PA cp Sly Norton MD MD rt Sade Flores rv1 Yair Young RN RN tl4 Li Mathews RN RN kj2 Corrections: (The following items were deleted from the chart) 12/17 18:09 18:04 Abdomen Pelvis W Con+CT.RAD.BRZ ordered. EDMS EDMS 18:10 18:10 BLOOD CULTURE*+BA.LAB.BRZ ordered. EDMS EDMS 18:10 18:10 CBC+H.LAB.BRZ ordered. EDMS EDMS 18:10 18:10 COMPREHENSIVE METABOLIC PANEL+C.LAB.BRZ ordered. EDMS EDMS 18:10 18:10 LACTATE+C.LAB.BRZ ordered. EDMS EDMS 18:10 18:10 PROTIME (+INR)+COAG.LAB.BRZ ordered. EDMS EDMS 18:10 18:10 PTT, ACTIVATED+COAG.LAB.BRZ ordered. EDMS EDMS 18:10 18:10 Urinalysis+U.LAB.BRZ ordered. EDMS EDMS 18:10 18:10 Chest Single View+RAD.RAD.BRZ ordered. EDMS EDMS 20:15 18:09 Abdomen ordered. EDMS EDMS 20:21 20:04 Thorax Wo Con+CT.RAD.BRZ ordered. EDMS EDMS 22:08 21:54 cp rv1
--- NOTE | 2023-12-18 21:54 | ER ---
Nurse's Notes [facility] Name: Rhett Ayers Age: 48 yrs Sex: Male : 1975 Arrival Date: 12/18/2023 Time: 17:35 Bed 20 Private MD: Diagnosis: Severe sepsis without septic shock;Right Gluteal Fold and Perianal Abscess with Fistula;Anemia in chronic kidney disease Presentation: 12/17 17:43 Chief complaint: Patient states: Pt c/o cyst between buttocks that has gotten tl4 significantly worse today. Wound appears to have purulent drainage. Pt also c/o feeling progressively more SOB over the past several months. Coronavirus screen: At this time, the client does not indicate any symptoms associated with coronavirus-19. Ebola Screen: No symptoms or risks identified at this time. Initial Sepsis Screen: Does the patient meet any 2 criteria? No. Patient's initial sepsis screen is negative. Does the patient have a suspected source of infection? No. Patient's initial sepsis screen is negative. Risk Assessment: Do you want to hurt yourself or someone else? Patient reports no desire to harm self or others. Onset of symptoms is unknown. 17:43 Method Of Arrival: Wheelchair tl4 17:43 Acuity: SANTIAGO 2 tl4 Triage Assessment: 17:46 General: Appears distressed, uncomfortable, Behavior is cooperative. Pain: Complains of tl4 pain in buttocks. EENT: No signs and/or symptoms were reported regarding the EENT system. Neuro: Level of Consciousness is awake, alert, obeys commands, Oriented to person, place, time, situation. Cardiovascular: Capillary refill < 3 seconds Patient's skin is warm and dry. Respiratory: Reports shortness of breath Airway is patent Respiratory effort is even, unlabored, Respiratory pattern is regular, symmetrical, Onset: The symptoms/episode began/occurred several months, the patient has mild shortness of breath. GI: No signs and/or symptoms were reported involving the gastrointestinal system. : No signs and/or symptoms were reported regarding the genitourinary system. Derm: Abscess located on buttocks. Musculoskeletal: No deficits noted. Historical: - Allergies: 17:46 No Known Allergies; tl4 - PMHx: 17:46 CKD; compressed discs; Diabetes - NIDDM; gastric ulcer; Hypertension; Kidney stone; tl4 Orthostatic hypotension; peptic ulcer disease (Unknown); - Immunization history:: Adult Immunizations unknown. - Infectious Disease History:: Denies. - Social history:: Smoking status: Patient denies any tobacco usage or history of. Screenin:45 [facility] ED Fall Risk Assessment (Adult) History of falling in the last 3 months, kc6 including since admission No falls in past 3 months (0 pts) Confusion or Disorientation No (0 pts) Intoxicated or Sedated No (0 pts) Impaired Gait No (0 pts) Mobility Assist Device Used No (0 pt) Altered Elimination No (0 pt) Score/Fall Risk Level 0 - 2 = Low Risk Oriented to surroundings, Maintained a safe environment. Abuse screen: Denies threats or abuse. Denies injuries from another. Nutritional screening: No deficits noted. Tuberculosis screening: No symptoms or risk factors identified. Assessment: 18:45 General: Appears in no apparent distress. comfortable, well groomed, well developed, kc6 Behavior is calm, cooperative, appropriate for age. Pain: Complains of pain in coccyx and gluteal cleft. Neuro: Level of Consciousness is awake, alert, obeys commands, Oriented to person, place, time, situation, Appropriate for age. Cardiovascular: Reports shortness of breath, Denies chest pain, Capillary refill < 3 seconds Rhythm is sinus tachycardia. Respiratory: Airway is patent Trachea midline Respiratory effort is even, unlabored, Respiratory pattern is regular, symmetrical, Breath sounds are clear bilaterally. GI: No signs and/or symptoms were reported involving the gastrointestinal system. : No signs and/or symptoms were reported regarding the genitourinary system. EENT: No signs and/or symptoms were reported regarding the EENT system. Derm: Skin is healthy with good turgor, has lesions on the AMIE upper extremities Skin is dry, Skin is pale, Skin temperature is warm Abscess located on gluteal cleft is quarter sized, has purulent drainage, is hot to touch, is red. Musculoskeletal: No signs and/or symptoms reported regarding the musculoskeletal system. Circulation, motion, and sensation intact. Capillary refill < 3 seconds, Range of motion: intact in all extremities. 19:00 Reassessment: only able to collect CBC and BMP at this time. handoff of care to kc6 MEGHANN Loza. informed that blood cultures, lactate and blue top are still pending. 19:05 General: Appears in no apparent distress. Behavior is calm, cooperative. kj2 Cardiovascular: Patient's skin is warm and dry. Respiratory: Airway is patent Respiratory effort is even, unlabored. 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 22:25 Reassessment: Patient appears in no apparent distress at this time. Patient and/or kj2 family updated on plan of care and expected duration. Pain level reassessed. Patient is alert, oriented x 3, equal unlabored respirations, skin warm/dry/pink. 23:18 Reassessment: Patient appears in no apparent distress at this time. Patient and/or kj2 family updated on plan of care and expected duration. Pain level reassessed. Patient is alert, oriented x 3, equal unlabored respirations, skin warm/dry/pink. 23:20 Reassessment: midline 18g, 8cm placed by MEGHANN Triana. kj2 Vital Signs: 17:43 BP 92 / 57; Pulse 110; Resp 20; Temp 97.7; Pulse Ox 96% on R/A; Weight 95.25 kg; Height tl4 6 ft. 2 in. ; Pain 9/10; 19:22 BP 102 / 68; Pulse 90; Resp 16; Pulse Ox 100% ; kj2 22:25 BP 104 / 70; Pulse 92; Resp 18; Pulse Ox 100% on R/A; kj2 17:43 Body Mass Index 26.96 (95.25 kg, 187.96 cm) tl4 17:43 Pain Scale: Adult tl4 ED Course: 17:38 Patient arrived in ED. mg5 17:42 Jose Carlos Carrasco PA is PHCP. cp 17:42 Sly Norton MD is Attending Physician. cp 17:45 Triage completed. tl4 17:47 Arm band placed on left wrist. tl4 18:35 Saima Armenta, MEGHANN is Primary Nurse. kc6 18:37 Chest Single View XRAY In Process Unspecified. EDMS 18:45 Patient has correct armband on for positive identification. Placed in gown. Bed in low kc6 position. Call light in reach. Side rails up X 1. library monitor on. Pulse ox on. NIBP on. Door closed. Noise minimized. Lights dimmed. Warm blanket given. Pillow given. 18:45 Patient maintains SpO2 saturation greater than 95% on room air. kc6 18:55 CBC with Diff Sent. em1 18:55 CMP Sent. em1 18:56 Inserted saline lock: 22 gauge in right wrist, using aseptic technique. Blood em1 collected. Flushed with 10 mL NS. 19:00 Report given to Denia Mathews RN. kc6 19:03 EKG done, by ED staff, reviewed by Jose Carlos TAMEZ. em1 19:23 Provided Education on: call light, fall precautions. Report received from MEGHANN Landaverde. kj2 20:43 Chest Abd Pelvis Wo Con In Process Unspecified. EDMS 21:51 Kanu Patrick MD is Hospitalizing Provider. cp 22:23 Type And Screen Sent. kj2 22:24 Blood Culture Adult (2) Sent. kj2 22:24 Lactate w/ 2H reflex if indic. Sent. kj2 22:24 Protime (+inr) Sent. kj2 22:32 CBC with Automated Diff Sent. cg 22:32 Comprehensive Metabolic Panel Sent. cg 23:19 No provider procedures requiring assistance completed. kj2 23:23 Patient admitted, IV remains in place. kj2 Administered Medications: 21:39 Not Given (Physician Discretion): ns 0.9% 1000 ml IV at 1 bolus Per protocol; to be cp given as a bolus over 30 minutes 22:23 Drug: NS 0.9% IV (30 ml/kg) 30 ml/kg IV at bolus once; Sepsis Protocol; to be given as kj2 a bolus over 90 minutes {Note: midline in upper right arm.} Route: IV; Rate: bolus; Site: Other; 23:23 Follow up: IV Status: Infusion continued upon admission; IV Intake: 2000ml kj2 22:24 Drug: metroNIDAZOLE IVPB 500 mg 100 ml IVPB once over 30 mins Volume: 100 ml; Route: kj2 IVPB; Infused Over: 30 mins; Site: right upper arm; 22:55 Follow up: IV Status: Completed infusion; IV Intake: 100ml kj2 23:16 Follow up: Response: No adverse reaction kj2 23:23 Follow up: Response: No adverse reaction kj2 23:16 Drug: Piperacillin-Tazobactam IVPB 3.375 grams IVPB once over 60 mins; (mix in NS 100 kj2 mL) Route: IVPB; Infused Over: 60 mins; Site: right upper arm; 23:24 Follow up: IV Status: Infusion continued; Infusion continued upon admission kj2 Medication: 19:23 VIS not applicable for this client. kj2 Intake: 22:55 IV: 100ml; Total: 100ml. kj2 23:23 IV: 2000ml; Total: 2100ml. kj2 Outcome: 21:54 Decision to Hospitalize by Provider. cp 23:22 Admitted to Med/surg accompanied by tech, via stretcher, kj2 23:22 Condition: stable 23:28 Patient left the ED. kj2 Signatures: Dispatcher [employer] Niko Us em1 Jose Carlos Carrasco PA PA cp Carey Barragan, RN RN cg Saima Armenta RN RN kc6 Jaylyn Mitchell mg5 Yair Young RN RN tl4 Li Mathews, RN RN kj2
[2023-12-18] MEDS ORDERED: ACETAMINOPHEN 325 MG TABLET PO PRN (21:57)
[2023-12-18] MEDS ORDERED: ONDANSETRON 4 MG/2 ML VIAL IV PRN (21:57)
--- NOTE | 2023-12-18 21:57 | P.HP ---
Certification for Inpatient Patient admitted to: Inpatient With expected LOS: >2 Midnights Practitioner: I am a practitioner with admitting privileges, knowledge of patient current condition, hospital course, and medical plan of care. Services: Services provided to patient in accordance with Admission requirements found in Title 42 Section 412.3 of the Code of Federal Regulations Patient History Date of Service: 12/19/23 Reason for admission: Abscess Perirectal History of Present Illness: 48-year-old with past medical history of diabetes, hypertension, CKD stage II, history of kidney stone, orthostatic hypotension, GERD, history of gastric ulcer, and anemia , previous history of right Gluteal Fold and Perianal Abscess with Fistula who was brought to ER with c/o cyst between buttocks that has gotten significantly worse today. Wound appears to have purulent drainage. Patient is admitted recently and had underwent incision and drainage by Dr. Fowler. Denies any fever or chills. No nausea vomiting or diarrhea. No chest pain. He also complains of shortness of breath which has been progressively getting worse from last admission.. Worse with movements and exercise. Associated with cough with mucoid expectoration. Patient was assessed in the ER and is admitted for further management. Allergies No Known Allergies Allergy (Verified 08/02/19 10:37) Home medications list reviewed: Yes Home Medications: Gabapentin [Neurontin] 600 mg PO TID 04/02/19 Fluoxetine HCl [Prozac] 1 cap PO DAILY 12/20/20 Morphine *Extended Release* [MS Contin*] 1 tab PO DAILY 12/20/20 Carvedilol [Coreg] 12.5 mg PO BID 01/05/22 Hydrocodone Bit/Acetaminophen [Hydrocodon-Acetaminophn 10-325] 10 mg PO Q6H PRN 01/05/22 Collagenase [Santyl Ointment*] 30 gm TP BEDTIME 02/17/22 Doxepin HCl 75 mg PO BEDTIME 02/17/22 Cyclobenzaprine [Flexeril*] 10 mg PO TID PRN 09/12/23 Amox/Clavulanate [Augmentin 875-125 Tab] 1 each PO BID #20 tab 09/15/23 Doxycycline Hyclate 100 mg PO BID #20 cap 09/15/23 - Past Medical/Surgical History Diabetic: Yes Past Medical History: Reviewed- Non-Contributory -: Chronic back pain -: DM II Dx age 22 -: Gastric ulcer -: Anemia -: HTN -: CKD II with proteinuria/ Hx MIGUEL followed by Dr. Ferguson Past Surgical History: Reviewed- Non-Contributory -: R knee surgery -: Gastric bypass -: Phimosis skin graft -: Circumcision -: Jackie -: rt knee surg Psychosocial/ Personal History: Patient lives at home with his , is disabled - Family History Mother -: Heart disease, Diabetes Notes: of cirrrosis of liver Father -: Diabetes Brother -: Hypertension, Diabetes Notes: at 39yr old from "natural causes" - Social History Alcohol use: No CD- Drugs: No Caffeine use: Yes Review of Systems 10-point ROS is otherwise unremarkable Physical Examination - Vital Signs Temperature: 97.7 F Blood Pressure: 92/57 Pulse: 110 Respirations: 20 Pulse Ox (%): 94 - Physical Exam General: Alert, Oriented x3, Mild distress HEENT: Atraumatic, Normocephalic Neck: Supple, No Thyromegaly Respiratory: Clear to auscultation bilaterally, Normal air movement Cardiovascular: Normal pulses, Regular rate/rhythm, Normal S1 S2 Capillary refill: <2 Seconds Gastrointestinal: Soft and benign, W/out hepatosplenomegaly Musculoskeletal: No clubbing, Erythema Integumentary: No rashes, Tenderness/swelling, Erythema Neurological: Normal speech, Normal strength at 5/5 x4 extr Lymphatics: No axilla or inguinal lymphadenopathy - Studies Laboratory Data (last 24 hrs) 12/18/23 12/18/23 18:53 18:53 WBC 22.70 H Hgb 8.8 L Hct 27.3 L Plt Count 288 Sodium 142 Potassium 3.5 BUN 16 Creatinine 1.84 H Glucose 108 H Total Bilirubin 0.6 AST 20 ALT 19 Alkaline Phosphatase 187 H Assessment and Plan - Plan Perineal cyst vs abscess CT findings noted Will consult Dr. Fowler Started on IV antibiotic Pain control Bilateral airspace disease Started on IV antibiotic Will get a repeat x-ray in a.m. Mucinex MIGUEL on CKD2 Renal function monitor Electrolytes monitor and replace accordingly History of hypertension Will hold antihypertensives for now as the patient has borderline hypotension Diabetes Insulin sliding scale Accu-Chek before every meal and at bedtime Anemia of chronic disease Monitor H&H closely No overt bleeding at this time Chronic back pain Continued home meds GI/DVT prophylaxis Advanced directive full code Discharge Plan: Home Plan to discharge in: 48 Hours - Advance Directives Does patient have a Living Will: No Does patient have a Durable POA for Healthcare: No - Code Status/Comfort Care Code Status: Full Code Time Spent Managing Pts Care (In Minutes): 48
[2023-12-18] MEDS ORDERED: METRONIDAZOLE 500mg IVPB 500 MG/100 ML BAG IV ONE (22:11)
[2023-12-18] MEDS ORDERED: NA CHLORIDE 0.9% 0 ML ONE (22:12)
[2023-12-18] MEDS ORDERED: NA CHLORIDE 0.9% 100 ML ONE (22:12)
[2023-12-18] MEDS ORDERED: PIPERACIL/TAZO 3.375 GM VIAL IV ONE (22:13)
[2023-12-18] MEDS ORDERED: NA CHLORIDE 0.9% 2,000 ML ONE (22:15)
[2023-12-18 22:35] LABS: PT Prothrombin Time 15.1 SECONDS (9.4-12.5); PTT, Activated Partial Thromb 34.6 SECONDS (24.3-36.9); Protime INR 1.36
[2023-12-19] MEDS: HYDROCODONE/APAP 5/325 MG TAB PO PRN (02:38)
[2023-12-19] MEDS: MORPHINE 2 MG/ML SYR IV PRN (03:53)
[2023-12-19] MEDS: VANCOMYCIN 1 GM in NA CHLORIDE 0.9% 250 ML IVPB SCH (04:00)
[2023-12-19] MEDS: NA CHLORIDE 0.9% 500 ML ONE (04:33)
[2023-12-19] MEDS: VANCOMYCIN 1 GM/VIAL ONE (04:34)
[2023-12-19] MEDS: NA CHLORIDE 0.9% 1,000 ML IV SCH ×2 (04:50→09:01)
[2023-12-19] MEDS: VANCOMYCIN 1.75 GM in NA CHLORIDE 0.9% 500 ML IVPB SCH (04:57)
[2023-12-19] MEDS: METRONIDAZOLE 500mg IVPB 500 MG/100 ML BAG IV SCH (07:17)
[2023-12-19 07:56] LABS: Absolute Lymphocytes (CBC) 0.7 K/uL (0.7-4.9); Absolute Monocytes 0.5 K/uL (0.1-1.3); Absolute Neutrophil 17.5 K/uL (1.8-8.0); Basophils % 0.1 % (0-1.3); Eosinophils % 0.1 % (0-4.4); Hematocrit 30.9 % (39.6-49.0); Hemoglobin 9.4 g/dL (13.6-17.9); Lymphocytes % 3.5 % (15.3-44.8); MCH 34.6 pg (27.0-35.0); MCHC 30.3 g/dL (32.0-36.0); MCV 114.4 fL (80-100); MPV 8.7 fL (7.6-11.3); Monocytes % 2.8 % (3.3-12.3); Neutrophils % 93.5 % (41.7-73.7); Nucleated Red Blood Cells % 0.1 % (0-0); Platelets 293 thou/uL (152-406); Red Cell Distribution Width 16.2 % (12.1-15.2)
[2023-12-19] MEDS: HYDROCORTISONE SUC 100 MG INJ IV ONE (08:34)
[2023-12-19] MEDS: CEFTRIAXONE 1,000 MG in NA CHLORIDE 0.9% 50 ML IVPB SCH (08:36)
[2023-12-19] MEDS: GABAPENTIN 300 MG CAP PO SCH (09:00)
[2023-12-19] MEDS: FLUOXETINE 20 MG CAP PO SCH (09:00)
[2023-12-19] MEDS: carvediloL 12.5 MG TAB PO SCH (09:00)
[2023-12-19] MEDS: ENOXAPARIN 40 MG/0.4 ML SQ SCH (09:00)
--- NOTE | 2023-12-19 09:08 | P.PN ---
Subjective Date of Service: 12/19/23 Chief Complaint: Abscess Perirectal, severe sepsis with shock, resp failure Subjective: Worsening (moved to ICU for BiPap) Review of Systems General: Fever, Weakness, Malaise Eyes: Unremarkable ENT: Unremarkable Respiratory: Cough, Shortness of Breath, SOB with Excertion, Other (worsened just after shift change to resp failure, 84% on NRB, initiated BiPap) Cardiovascular: Light Headedness Gastrointestinal: Unremarkable Genitourinary: Unremarkable Musculoskeletal: Unremarkable Integumentary: Other (pale, diaphoretic, multiple areas of scabbing, midline to right upper arm, initiated 22g to left hand/wrist (3rd attempt)) Neurological: Weakness, Other (malaise) Lymphatics: Unremarkable Physical Examination - Vital Signs Temperature: 97.6 F Blood Pressure: 103/59 Pulse: 104 Respirations: 18 Pulse Ox (%): 94 - Physical Exam General: Moderate distress, Obese HEENT: Atraumatic, Normocephalic Neck: Supple Respiratory: Crackles/rales (bilaterally) Cardiovascular: No edema, Regular rate/rhythm, Other (blood pressure below 100) Capillary refill: >2 Seconds Gastrointestinal: Hypoactive, Other (rectal/buttock pain) Musculoskeletal: Other Integumentary: Skin lesion (multiple areas of scabbing), Other (buttock/rectal abscess) Neurological: Other (pale, weak, feels like he cannot breathe), Abnormal strength, Abnormal tone Lymphatics: No axilla or inguinal lymphadenopathy External genitalia: Deferred Rectal: Other (as noted, admission for worsening sepsis) - Studies Laboratory Data (last 24 hrs) 12/18/23 12/18/23 12/18/23 21:56 18:53 18:53 WBC 22.70 H Hgb 8.8 L Hct 27.3 L Plt Count 288 PT 15.1 H INR 1.36 APTT 34.6 Sodium 142 Potassium 3.5 BUN 16 Creatinine 1.84 H Glucose 108 H Total Bilirubin 0.6 AST 20 ALT 19 Alkaline Phosphatase 187 H Assessment And Plan - Plan Assessment and Plan - Plan #1 Perineal cyst vs abscess progressed to severe sepsis with shock and lactic acidosis CT findings noted Will consult Dr. Fowler Started on IV antibiotic Pain control transfer to ICU, ABG, Bipap, Consult Dr. Jeter repeat lactate and blood cultures, draw procal, CPK, PTT #2 probably secondary to #1 Bilateral airspace disease progressed to acute respiratory failure with hypoxia Started on IV antibiotic Will get a repeat x-ray in a.m. Bipap -> Vapotherm Start Heparin 5000u sc q 8h repeat CXR appears ALI/ARDS picture #3 MIGUEL on CKD2 Renal function monitor Electrolytes monitor and replace accordingly Consult Dr. Ferguson #4 History of hypertension Will hold antihypertensives for now as the patient has borderline hypotension #5 Diabetes Insulin sliding scale Accu-Chek before every meal and at bedtime am fsbs 89, hypoglycemic episode may have contributed to decreased responsiveness, recheck ordered recheck 60s, pt given juice and sugar barely came up, add D5 to LR ordered per Dr. Jeter #6 Anemia of chronic disease Monitor H&H closely No overt bleeding at this time T&S #7 Chronic back pain Continued home meds GI/DVT prophylaxis Advanced directive full code Discharge Plan: Home Plan to discharge in: 48 Hours - Advance Directives Does patient have a Living Will: No Does patient have a Durable POA for Healthcare: No - Code Status/Comfort Care Code Status: Full Code Time Spent Managing Pts Care (In Minutes): critical care 48 min Plan to discharge in: Greater than 2 days - Code Status/Comfort Care Code Status Assessed: Yes (Full) Critical Care: Yes (50)
[2023-12-19] MEDS ORDERED: HEPARIN/D5W 25,000 UNIT/500 ML BAG IV SCH (09:17)
[2023-12-19 09:45] LABS: Blood Gas Oxyhemoglobin 90.8 % (94-97)
[2023-12-19 10:10] LABS: Albumin 1.4 g/dL (3.4-5.0); Albumin/Globulin Ratio 0.4 (1.1-1.8); Anion Gap 18.3 mEq/L (5.0-15.0); Bilirubin Total 0.6 mg/dL (0.2-1.0); Globulin 3.7 g/dL (2.3-3.5); Magnesium 1.5 mg/dL (1.6-2.4); Potassium 3.3 mEq/L (3.5-5.1); Protein, Total 5.1 g/dL (6.4-8.2); Thyroid Stimulating Hormone 0.678 uIU/mL (0.358-3.740)
[2023-12-19] MEDS: SODIUM BICARB 50 MEQ/50ML VIAL IV ONE (10:30)
[2023-12-19] MEDS: Ringers Lactate 1,000 ML IV SCH (11:00)
[2023-12-19] MEDS ORDERED: GLUCAGON 1 MG/VIAL IM PRN (11:12)
[2023-12-19] MEDS ORDERED: D10W 125 ML IV PRN (11:12)
[2023-12-19 11:33] LABS: Barbiturates NEGATIVE (NEGATIVE); Benzodiazepines NEGATIVE (NEGATIVE); Cocaine NEGATIVE (NEGATIVE); METHAMPHETAM NEGATIVE (NEGATIVE); Methadone NEGATIVE (NEGATIVE); Opiates POSITIVE (NEGATIVE); Phencyclidine NEGATIVE (NEGATIVE); THC Cannibis NEGATIVE (NEGATIVE)
[2023-12-19 11:44] LABS: Calcium Oxalate Crystals- Ur Few /HPF (None Seen); Specific Gravity 1.024 (1.005-1.030); Sqamous Epithelial <5 /HPF (None Seen); Transitional Epithelial <5 /HPF (None Seen); Urine Bacteria 20-50 /HPF (<20); Urine Bilirubin NEGATIVE (Negative); Urine Blood Trace (Negative); Urine Clarity Extremely Turbid (Clear); Urine Color Yellow (Yellow); Urine Culture Reflex Order REFLEXED; Urine Glucose NEGATIVE (Negative); Urine Ketones NEGATIVE (Negative); Urine Microscopic Reflex YN ORDER UMIC; Urine Mucus Slight /HPF (None Seen); Urine Nitrite 2+ (Negative); Urine Protein 1+ (Negative); Urine Urobilinogen Normal (Normal); Urine WBC 20-50 /HPF (<5)
[2023-12-19] MEDS: HEPARIN 5000 UNIT/ML 1 ML VIAL SQ SCH (11:50)
[2023-12-19] MEDS: D5LR 1,000 ML IV SCH (11:51)
[2023-12-19 12:03] LABS: MA/CREAT RATIO 22.7 (< 30.0); UR MICROALBUMIN 2.2 mg/dL (< 1.9)
--- NOTE | 2023-12-19 12:40 | EKG ---
Test Date: 2023-12-18 Test Time: 19:01:18 Escape Wheel Tooth Cutter: AWILDA MEASUREMENT RESULTS: Intervals: Rate: 90 OK: 162 QRSD: 104 QT: 386 QTc: 472 [place]: P: 0 OK: 162 QRS: 14 T: 137 INTERPRETIVE STATEMENTS: Normal sinus rhythm Low voltage QRS Borderline ECG Compared to ECG 11/10/2023 08:38:34 Low QRS voltage now present T-wave abnormality no longer present Electronically Signed On 12-19-23 12:38:48 LEGAL WRITING PROFESSOR by Domenico Walter
[2023-12-19] MEDS ORDERED: NOREPINEPHRINE 4 MG in D5W 250 ML IV SCH (14:00)
--- NOTE | 2023-12-19 14:15 | RAD REPORT ---
EXAMINATION: ONE VIEW CHEST XR CLINICAL INDICATION: Male, 48 years old.,sob TECHNIQUE: Frontal chest projection is submitted. Examination is limited by patient positioning and t echnique. COMPARISON: 12/18/2023 FINDINGS: Central interstitial prominence and confluent bilateral central predominant fluffy opacities, progres sive. No pneumothorax or sizable effusion. The heart is normal in size. Mediastinal contours are unremarkable. IMPRESSION: Progressive central interstitial prominence and airspace opacities, most concerning for pulmonary vitaly ma.
--- NOTE | 2023-12-19 14:22 | P.PN ---
Subjective Date of Service: 12/19/23 Chief Complaint: Abscess Perirectal, severe sepsis with shock, resp failure This morning patient was complaining of dyspnea Shultis went into respiratory distress, his saturation was 80% by SpO2 on nasal cannula 6 L, he was put on nonrebreathing mask, transferred to ICU. Review of Systems is unable to be obtained Physical Examination - Vital Signs Temperature: 97.6 F Blood Pressure: 103/59 Pulse: 104 Respirations: 18 Pulse Ox (%): 94 - Physical Exam Other Physical/Emotional Findings: - Physical Exam. General: Morbidly obese, not acutely ill looking, in no apparent distress,. HEENT: Normocephalic, atraumatic,. Neck: Supple, without JVD or goiter or thyroid mass. Respiratory: No acute respite distress, clear to auscultation bilaterally, no crackles no wheezing or rhonchi. Cardiovascular: Distant heart sound. Gastrointestinal: Distended, decreased bowel sounds, no palpable mass. Musculoskeletal: No cyanosis, No peripheral edema. Integumentary: No rashes - Studies Laboratory Data (last 24 hrs) 12/18/23 12/18/23 12/18/23 21:56 18:53 18:53 WBC 22.70 H Hgb 8.8 L Hct 27.3 L Plt Count 288 PT 15.1 H INR 1.36 APTT 34.6 Sodium 142 Potassium 3.5 BUN 16 Creatinine 1.84 H Glucose 108 H Total Bilirubin 0.6 AST 20 ALT 19 Alkaline Phosphatase 187 H Assessment And Plan - Plan This is 48 years old gentleman with a past medical history notable for status post Rahul-en-Y gastric bypass, CKD stage II, anemia of chronic disease, type 2 diabetes, hypertension, gastric ulcer. 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 He presented to emergency room for anal pain with a purulent discharge and CT of the chest and abdomen revealed bilateral pulmonary infiltration, a recurrent perianal abscess, patient was started on broad-spectrum antibiotics and admitted on general medical floor on December 17. This morning he developed acute respiratory failure on the floor and transferred to MICU #1 acute hypoxic respiratory failure #2 presumed acute lung injury/ARDS related #3 #3 recurrent perianal abscess with severe sepsis #4 MIGUEL on CKD with severe non-anion gap metabolic acidosis #5 history of type 2 diabetes and hypoglycemia episode Continue broad-spectrum empiric antibiotics with ceftriaxone, metronidazole, IV vancomycin, BiPAP/high flow nasal oxygen, hydrocortisone IV x 1, fluid challenge with Ringer's lactate, bicarb drip started, mortar man, manager grant, general surgeon on board. Patient is in critical condition, once patient is more stable , we will do surgical I&D to control source of infection.
--- NOTE | 2023-12-19 14:59 | RAD REPORT ---
EXAMINATION: ONE VIEW CHEST XR CLINICAL INDICATION: Male, 48 years old.,PICC line TECHNIQUE: Frontal chest projection is submitted. Examination is limited by patient positioning and t echnique. COMPARISON: Chest radiograph of earlier the same day FINDINGS: Partial improvement of central interstitial prominence. Stable to mildly improved fluffy central pred ominant opacities. Left arm PICC has been placed with tip at the level of the distal SVC. No pneumothorax or sizable effusion. The heart is normal in size. Mediastinal contours are unremarkable. IMPRESSION: Satisfactory positioning of left arm PICC. Changes of pulmonary edema, partially improved.
[2023-12-19] MEDS: INSULIN REGULAR (HUMAN) 100 UNIT/ML SQ SCH (16:14)
[2023-12-19] MEDS: FUROSEMIDE 40 MG/4 ML VIAL IV ONE ×2 (16:18→22:22)
[2023-12-19 19:23] LABS: Anion Gap 13.3 mEq/L (5.0-15.0); Magnesium 1.5 mg/dL (1.6-2.4); Potassium 3.3 mEq/L (3.5-5.1)
--- NOTE | 2023-12-19 19:33 | P.CNS ---
Date of Consult: 12/19/23 Reason for Consult: MIGUEL/ CKD Requesting Physician: NIRAJ Sylvester Chief Complaint: Abscess Perirectal, severe sepsis with shock, resp failure History of Present Illness: 48-year-old with past medical history of diabetes, hypertension, CKD stage II, history of kidney stone, orthostatic hypotension, GERD, history of gastric ulcer, and anemia , previous history of right Gluteal Fold and Perianal Abscess with Fistula who was brought to ER with c/o cyst between buttocks that has gotten significantly worse today. Wound appears to have purulent drainage. Patient is admitted recently and had underwent incision and drainage by Dr. Fowler. Denies any fever or chills. No nausea vomiting or diarrhea. No chest pain. He also complains of shortness of breath which has been progressively getting worse from last admission.. Worse with movements and exercise. Associated with cough with mucoid expectoration. Patient was assessed in the ER and is admitted for further management. Feeling better this morning. +BM Allergies No Known Allergies Allergy (Verified 08/02/19 10:37) Home medications list reviewed: Yes Home Medications: Gabapentin [Neurontin] 600 mg PO TID 04/02/19 Fluoxetine HCl [Prozac] 1 cap PO DAILY 12/20/20 Morphine *Extended Release* [MS Contin*] 1 tab PO DAILY 12/20/20 Carvedilol [Coreg] 12.5 mg PO BID 01/05/22 Hydrocodone Bit/Acetaminophen [Hydrocodon-Acetaminophn 10-325] 10 mg PO Q6H PRN 01/05/22 Collagenase [Santyl Ointment*] 30 gm TP BEDTIME 02/17/22 Doxepin HCl 75 mg PO BEDTIME 02/17/22 Cyclobenzaprine [Flexeril*] 10 mg PO TID PRN 09/12/23 Amox/Clavulanate [Augmentin 875-125 Tab] 1 each PO BID #20 tab 09/15/23 Doxycycline Hyclate 100 mg PO BID #20 cap 09/15/23 - Past Medical/Surgical History Diabetic: Yes -: Chronic back pain -: DM II Dx age 22 -: Gastric ulcer -: Anemia -: HTN -: CKD II (Dr. Ferguson/ [facility]) -: R knee surgery -: Gastric bypass -: Phimosis skin graft -: Circumcision -: Jackie -: rt knee surg Psychosocial/ Personal History: Patient lives at home with his , is disabled - Family History Mother Medical History: Heart disease, Diabetes Notes: of cirrrosis of liver Father Medical History: Diabetes Brother Medical History: Hypertension, Diabetes Notes: at 39yr old from "natural causes" - Social History Smoking Status: Unknown if ever smoked Alcohol use: No CD- Drugs: No Caffeine use: Yes Review of Systems 10-point ROS is otherwise unremarkable General: Weakness, Malaise Physical Examination Temp Pulse Resp BP Pulse Ox 97.6 F 104 H 18 103/59 L 94 12/19/23 18:24 12/19/23 18:24 12/19/23 18:24 12/19/23 18:24 12/19/23 18:24 General: In no apparent distress, Oriented x3, Cooperative HEENT: Atraumatic Neck: Supple Respiratory: Normal air movement Cardiovascular: No edema, Regular rate/rhythm Gastrointestinal: Soft and benign, Non-distended Musculoskeletal: No clubbing, No contractures Integumentary: No rashes, No cyanosis Neurological: Normal speech Laboratory Data (last 24 hrs) 12/18/23 12/18/23 21:56 18:53 WBC 22.70 H Hgb 8.8 L Hct 27.3 L Plt Count 288 PT 15.1 H INR 1.36 APTT 34.6 Imagings Data: [id number] EXAMINATION: ONE VIEW CHEST XR CLINICAL INDICATION: Male, 48 years old.,PICC line TECHNIQUE: Frontal chest projection is submitted. Examination is limited by patient positioning and technique. COMPARISON: Chest radiograph of earlier the same day FINDINGS: Partial improvement of central interstitial prominence. Stable to mildly improve d fluffy central predominant opacities. Left arm PICC has been placed with tip at the level of the distal SVC. No pneumothorax or sizable effusion. The heart is normal in size. Mediastinal contours are unremarkable. IMPRESSION: Satisfactory positioning of left arm PICC. Changes of pulmonary edema, partially improved. [id number] EXAMINATION: ONE VIEW CHEST XR CLINICAL INDICATION: Male, 48 years old.,sob TECHNIQUE: Frontal chest projection is submitted. Examination is limited by patient positioning and technique. COMPARISON: 12/18/2023 FINDINGS: Central interstitial prominence and confluent bilateral central predominant fluffy opacities, progressive. No pneumothorax or sizable effusion. The heart is normal in size. Mediastinal contours are unremarkable. IMPRESSION: Progressive central interstitial prominence and airspace opacities, most concerning for pulmonary edema. [id number] EXAMINATION: ONE VIEW CHEST XR CLINICAL INDICATION: Male, 48 years old.SOB TECHNIQUE: 1 View, AP supine, X-ray of the chest was performed. [id number]. COMPARISON: Chest radiograph 11/10/2023, chest CT 09/12/2023 FINDINGS: Lungs and pleura: Ill-defined bilateral airspace disease which has progressed since 11/10/2023. No effusion. Heart and mediastinum: Normal heart size. Unremarkable mediastinal contours. Osseous structures: No acute abnormality. Tubes/lines: None Other: None. IMPRESSION: Increased ill-defined irregular bilateral airspace disease which could reflect multifocal pneumonia. [id number] EXAM: CT CHEST, ABDOMEN AND PELVIS WITHOUT CONTRAST CLINICAL INDICATION: Male, 48 years old Abd pain;Rectal drainage;SOB TECHNIQUE: CT chest, abdomen and pelvis was performed, without IV contrast, as per department protocol. Axial, sagittal and coronal reconstructions were obtained. One or more of the following dose reduction techniques were used: Automated exposure control, adjustment of the mA and/or kV according to the patient size, and/or iterative reconstruction. Unless otherwise specified, incidental findings do not require dedicated imaging follow-up. [id number]. COMPARISON: 09/12/2023, 08/15/2023 FINDINGS: The lack of intravenous contrast limits the sensitivity of this exam for evaluation of solid visceral organs, vascular structures, and retroperitoneum. Chest: LOWER NECK/CHEST WALL: Visualized thyroid gland and soft tissues are normal. LUNGS AND AIRWAYS: Worsened multifocal nodular and groundglass opacities, previously mainly in the left lung and now diffuse. PLEURA: No pleural effusion. No pneumothorax. Hemidiaphragms are normally positioned. MEDIASTINUM AND LYMPH NODES: Dense material in the distal esophagus could be from a prior study with oral contrast. THORACIC AORTA: Normal caliber and configuration. PULMONARY ARTERIES: Normal caliber. HEART: Trace pericardial effusion. Coronary artery calcifications which are mild. Abdomen/Pelvis LIVER: Normal in size and contour. No focal lesion. GALLBLADDER/BILE DUCTS: Cholecystectomy PANCREAS: Pancreatic atrophy. SPLEEN: Normal size. No focal lesion. ADRENALS: Normal; no mass. KIDNEYS AND URETERS: Punctate stone in the right kidney. No hydronephrosis. GASTROINTESTINAL TRACT: Rahul-en-Y gastric bypass. Moderate stool in the colon. No bowel obstruction. PERITONEUM: No free fluid. LYMPH NODES: No lymphadenopathy. ABDOMINAL AORTA AND OTHER VESSELS: Normal caliber aorta and IVC. URINARY BLADDER: Normal contour. REPRODUCTIVE ORGANS: No pathologic process. MUSCULOSKELETAL: No acute or suspicious osseous abnormality. Healed remote left 11th rib fracture. Remote T11 compression fracture. ADDITIONAL FINDINGS: Gas and fluid containing collection in the right medial gluteal fold and perianal region measuring approximately 4.2 x 4.9 cm x 2 cm. IMPRESSION: 1. Perianal abscess with or without fistula. 2. Worsened bilateral airspace disease compared with 09/12/2023. The appearance is most consistent with infection or inflammation but the differential is broader as the findings are progressive and chronic. 3. Dense fluid in the distal esophagus is presumably recently ingested oral contrast. This may be from an outside facility. Oral contrast is seen distally within the bowel. Retention of contrast in the esophagus could be from reflux or possible a stricture. Chronic aspiration could conceivably explain the progressive lung findings. Conclusions/Impression: Stage I MIGUEL in the setting of hypotension CKD II with Proteinuria -No NSAIDs -Albumin IV X2 Hypokalemia -Replete as ordered Acute Metabolic Acidosis -Improving Hypomagnesemia -Replete as ordered Hypotension Sepsis -Continue Abx -Albumin IV X2 -Vasopressor support prn Peripheral Edema Pulmonary Edema -Lasix as ordered Hypoalbuminemia -Albumin IV X2 -Recommend protein supplementation Anemia in chronic illness Macrocytosis -Monitor H&H -PRBC prn PeriAnal Abscess -Continue Abx -Follow up with surgery Acute Infective Cystitis with Hematuria -Continue Abx -Follow up culture Hospitalist and ER notes reviewed Thank you kindly for the consultationi
[2023-12-19] MEDS: ALBUMIN HUMAN 25% 100 ML IV SCH (19:50)
[2023-12-19] MEDS: Magnesium Sulfate 2gm IVPB 2 G/50 ML BAG IV ONE (22:22)
[2023-12-19] MEDS: Mupirocin NASAL 2 APPL/1 GM TUBE NAS SCH (22:22)
[2023-12-19] MEDS: KCL 20 MEQ/100 mL IVPB 20 MEQ/100 ML BAG IV SCH (22:24)
--- NOTE | 2023-12-20 00:11 | CON ---
Diagnoses: Perianal abscess, bilateral pneumoniae. History Of Present Illness: This is a case of a 48-year-old patient who comes to us with multiple me dical problems including bilateral pneumonia, known by us due to history of fistulas and abscess recu rrence. Last time was several months ago when he had a perineal abscess, multiple have to be drained . He has multiple medical problems that include kidney disease, lung disease, diabetes, hypertension . Allergies: NONE. Medications: Reviewed including Neurontin, Coreg, Flexeril, doxycycline. Past Medical History: As above, diabetes, gastric ulcers, anemia, hypertension, perineal abscess, mu ltiple fistulous. Past Surgical History: Surgeries include I and D perianal, perineal abscess, knee surgeries. The fi stulas and abscess were done over the summer. He is completely healed by that. Surgery also include s a gastric bypass, cholecystectomy, circumcision, right knee surgery. Family History: Includes heart disease and diabetes. He does not smoke. He does not drink alcohol. Review of Systems: Perianal tenderness, perineal pain. No nausea, vomiting. History of constipation. No trauma. 10 p oints are otherwise unremarkable. See medical history, comes with bilateral pneumoniae, but not shor t of breath. Physical Examination: Vital Signs: Reviewed. The patient is awake and alert. BiPAP for assist in respiration and process is still removed and be able to talk to me without getting short of breath chest bilateral breath so unds. Abdomen: Soft and depressible. SKIN: Perianal area once again is sensitive in that area, does not allow a physical examination at t his moment. Anyway, he has pictures present to it and we had also seen him in the past with a perian al abscess. We also discussed the CAT scan with the patient. Extremities: Good capillary refill. Diagnostic Data: CAT scan of the abdomen and pelvis interpreted by Dr. Garg reviewed with the patient showing the perianal abscess, cannot rule out fistulous. Assessment: This is a 48-year-old patient with bilateral pneumonia with some exacerbation of that to day. Given some Lasix. From the surgical standpoint, I had opportunity to see if I can take him to surgery and do a UA, anoscopy, proctoscopy, I and D of perianal and perirectal abscess with benefits, alternatives, and risks including, but not limited to infection, bleeding, damage to adjacent struct ures as anesthesia complication, nonhealing wound, SD, and . He also understands as an outpatie nt, we are recommending to see a colorectal surgeon as with the last time that about the c ause of this problems and diminished chance of recurrence. RICHARD/TAMIKO Voice ID: [id number] Report ID: [id number]
[2023-12-20 04:54] LABS: Absolute Lymphocytes (CBC) 0.6 K/uL (0.7-4.9); Absolute Monocytes 0.9 K/uL (0.1-1.3); Absolute Neutrophil 17.1 K/uL (1.8-8.0); Basophils % 0.2 % (0-1.3); Eosinophils % 0.2 % (0-4.4); Hematocrit 23.7 % (39.6-49.0); Lymphocytes % 3.4 % (15.3-44.8); MCH 36.2 pg (27.0-35.0); MCHC 33.7 g/dL (32.0-36.0); MCV 107.2 fL (80-100); MPV 8.3 fL (7.6-11.3); Monocytes % 4.7 % (3.3-12.3); Nucleated RBC Absolute Count 0.1 (0-0); Nucleated Red Blood Cells % 0.2 % (0-0); Platelets 241 thou/uL (152-406); RBC Red Blood Cell Count 2.21 M/uL (4.33-5.43); Red Cell Distribution Width 15.8 % (12.1-15.2)
[2023-12-20 04:56] LABS: Neutrophils % 91.5 % (41.7-73.7)
[2023-12-20 05:04] LABS: Albumin 1.9 g/dL (3.4-5.0); Anion Gap 11.1 mEq/L (5.0-15.0); Magnesium 1.9 mg/dL (1.6-2.4); Phosphorus 3.9 mg/dL (2.5-4.9); Potassium 3.1 mEq/L (3.5-5.1); Uric Acid 3.4 mg/dL (3.5-7.2)
[2023-12-20] MEDS: KCL 20 MEQ/100 mL IVPB 20 MEQ/100 ML BAG IV SCH (06:02)
--- NOTE | 2023-12-20 07:25 | RAD REPORT ---
EXAMINATION: ONE VIEW CHEST XR CLINICAL INDICATION: Male, 48 years old.Resp failure TECHNIQUE: 1 View, AP supine, X-ray of the chest was performed. [id number]. COMPARISON: 12/19/2023 FINDINGS: Lungs and pleura: Similar severe bilateral interstitial and airspace disease. No effusion. Heart and mediastinum: Mild coronary medley. Unremarkable mediastinal contours. Osseous structures: No acute abnormality. Tubes/lines: Left subclavian approach PICC with tip overlying the distal SVC. Other: None. IMPRESSION: Severe bilateral airspace disease which is unchanged since 12/19/2023. This could represent edema, mu ltifocal pneumonia, and/or ARDS.
--- NOTE | 2023-12-20 08:30 | P.CNS ---
Date of Consult: 12/19/23 Reason for Consult: Respiratory failure ARDS Chief Complaint: Abscess Perirectal, severe sepsis with shock, resp failure History of Present Illness: Patient is 48 years of age admitted with perianal abscess developed respiratory distress bilateral pulmonary infiltrates transferred to the ICU currently on BiPAP patient also has metabolic acidosis has been a progressive worsening of his chest x-ray Allergies No Known Allergies Allergy (Verified 08/02/19 10:37) Home Medications: Gabapentin [Neurontin] 600 mg PO TID 04/02/19 Fluoxetine HCl [Prozac] 1 cap PO DAILY 12/20/20 Morphine *Extended Release* [MS Contin*] 1 tab PO DAILY 12/20/20 Carvedilol [Coreg] 12.5 mg PO BID 01/05/22 Hydrocodone Bit/Acetaminophen [Hydrocodon-Acetaminophn 10-325] 10 mg PO Q6H PRN 01/05/22 Collagenase [Santyl Ointment*] 30 gm TP BEDTIME 02/17/22 Doxepin HCl 75 mg PO BEDTIME 02/17/22 Cyclobenzaprine [Flexeril*] 10 mg PO TID PRN 09/12/23 Amox/Clavulanate [Augmentin 875-125 Tab] 1 each PO BID #20 tab 09/15/23 Doxycycline Hyclate 100 mg PO BID #20 cap 09/15/23 - Past Medical/Surgical History Diabetic: Yes -: Chronic back pain -: DM II Dx age 22 -: Gastric ulcer -: Anemia -: HTN -: CKD II with proteinuria/ Hx MIGUEL followed by Dr. Ferguson -: R knee surgery -: Gastric bypass -: Phimosis skin graft -: Circumcision -: Jackie -: rt knee surg Psychosocial/ Personal History: Patient lives at home with his , is disabled - Family History Mother Medical History: Heart disease, Diabetes Notes: of cirrrosis of liver Father Medical History: Diabetes Brother Medical History: Hypertension, Diabetes Notes: at 39yr old from "natural causes" - Social History Smoking Status: Unknown if ever smoked Alcohol use: No CD- Drugs: No Caffeine use: Yes Review of Systems 10-point ROS is otherwise unremarkable General: Weakness Respiratory: Shortness of Breath Physical Examination Temp Pulse Resp BP Pulse Ox 97.8 F 95 H 16 108/85 92 12/20/23 00:00 12/20/23 07:00 12/20/23 07:00 12/20/23 07:00 12/20/23 07:00 General: Alert, Oriented x3, Moderate distress Respiratory: Clear to auscultation bilaterally Cardiovascular: No edema, Regular rate/rhythm, Normal S1 S2 Gastrointestinal: Normal bowel sounds, Soft and benign - Problems (1) ARDS (adult respiratory distress syndrome) Current Visit: Yes Status: Acute Plan: Patient is 48 years of age admitted with acute lung injury which has been progressive also appears to have chronic renal failure admitted with hypoglycemia currently on BiPAP seen by general surgery he has a perianal abscess can DC vancomycin for now due to possibility of nephrotoxicity (2) Metabolic acidosis Current Visit: Yes Status: Acute Plan: Patient has a chronic metabolic acidosis severe hypoalbuminemia normal delta gap when corrected most likely he has renal tubular acidosis patient was will be given some diuretics nephrology consult patient's white count is elevated DC vancomycin patient's toxicology screen is negative for salicylate he does not have any ketones patient will be started on Levophed if necessary (3) Perianal abscess Current Visit: Yes Status: Acute Plan: Continue with Rocephin and metronidazole add p.o. DC vancomycin
--- NOTE | 2023-12-20 08:38 | P.PN ---
Subjective Date of Service: 12/20/23 Chief Complaint: ARDS Patient states that is improving chest x-ray seems to be a little better white count is declining Review of Systems General: Malaise Respiratory: Shortness of Breath Physical Examination - Vital Signs Temperature: 97.8 F Blood Pressure: 108/85 Pulse: 95 Respirations: 16 Pulse Ox (%): 92 - Physical Exam General: Alert, Oriented x3, Mild distress Neck: Supple Respiratory: Crackles/rales, Friction rub Cardiovascular: Normal pulses, Regular rate/rhythm Other Physical/Emotional Findings: - Physical Exam. General: Morbidly obese, not acutely ill looking, in no apparent distress,. HEENT: Normocephalic, atraumatic,. Neck: Supple, without JVD or goiter or thyroid mass. Respiratory: No acute respite distress, clear to auscultation bilaterally, no crackles no wheezing or rhonchi. Cardiovascular: Distant heart sound. Gastrointestinal: Distended, decreased bowel sounds, no palpable mass. Musculoskeletal: No cyanosis, No peripheral edema. Integumentary: No rashes Assessment And Plan - Current Problems (Diagnosis) (1) ARDS (adult respiratory distress syndrome) Current Visit: Yes Status: Acute Plan: Patient has ARDS continue with BiPAP oxygenation improving trial of steroids for 24 hours patient has had 80 mg of Lasix yesterday DC vancomycin HIV test ordered (2) Metabolic acidosis Current Visit: Yes Status: Acute Plan: Patient has chronic hypochloremic metabolic acidosis possibility that he has underlying renal tubular acidosis patient is now has elevated sodium is also hypokalemic potassium replacement (3) Perianal abscess Current Visit: Yes Status: Acute Plan: Continue with Rocephin and metronidazole add p.o. DC vancomycin
[2023-12-20] MEDS: METHYLPREDNISOLONE 40 MG INJ IV SCH (08:44)
[2023-12-20] MEDS: CYCLOBENZAPRINE 10 MG TAB PO PRN (13:08)
[2023-12-20] MEDS: DOXEPIN HCL 25 MG CAP PO SCH (20:22)
[2023-12-20] MEDS: GLUCERNA SHAKE 237 ML CAN PO SCH (20:23)
[2023-12-21 05:36] LABS: Absolute Lymphocytes (CBC) 0.6 K/uL (0.7-4.9); Absolute Monocytes 0.6 K/uL (0.1-1.3); Absolute Neutrophil 13.2 K/uL (1.8-8.0); Basophils % 0.2 % (0-1.3); Hematocrit 22.5 % (39.6-49.0); Hemoglobin 7.4 g/dL (13.6-17.9); Lymphocytes % 4.4 % (15.3-44.8); MCH 35.5 pg (27.0-35.0); MCHC 32.9 g/dL (32.0-36.0); MCV 108.1 fL (80-100); MPV 8.6 fL (7.6-11.3); Monocytes % 3.8 % (3.3-12.3); Neutrophils % 91.6 % (41.7-73.7); Nucleated RBC Absolute Count 0.1 (0-0); Nucleated Red Blood Cells % 0.5 % (0-0); Platelets 190 thou/uL (152-406); RBC Red Blood Cell Count 2.08 M/uL (4.33-5.43); Red Cell Distribution Width 15.5 % (12.1-15.2)
[2023-12-21 05:51] LABS: Anion Gap 9.1 mEq/L (5.0-15.0); Magnesium 2.2 mg/dL (1.6-2.4); Potassium 3.1 mEq/L (3.5-5.1)
[2023-12-21] MEDS: KCL 20 MEQ/100 mL IVPB 20 MEQ/100 ML BAG IV SCH ×2 (08:01→17:42)
[2023-12-21] MEDS: EPINEPHRINE 1 MG/ML VIAL ONE (08:19)
[2023-12-21] MEDS: BUPIVACAINE 0.75% (PF) 2 ML SP ONE (08:20)
[2023-12-21] MEDS ORDERED: FENTANYL CITR 100 MCG/2 ML ONE (08:24)
[2023-12-21] MEDS ORDERED: MIDAZOLAM HCL 2 MG/2 ML INJ ONE (08:24)
[2023-12-21] MEDS ORDERED: propofoL 200 MG/20 ML VIAL IV ONE (08:24)
[2023-12-21] MEDS ORDERED: LIDOCAINE 1% MPF 5 ML VIAL ONE ×2 (08:24→09:14)
--- NOTE | 2023-12-21 09:05 | P.PN ---
Subjective Date of Service: 12/20/23 Patient chart was reviewed. Patient with a history of gastric bypass and he had weighed 500 pounds at 1 time. He ended up losing most of his weight over the next 2 years. He has had issues with scratching whenever he has lesions on his skin. He has gone boils on his arms and his nose. In September he had no issues. He was also found to have some pulmonary issues at that time per CT imaging. These issues have seemed to progress on images done on this admission. Patient also had a perirectal abscess. This will need to be drained. Unsure as to the pathology of the pulmonary issues. Imaging studies resemble ARDS. There appears to be some acute on chronic pulmonary issues. Workup pending. Review of Systems 10-point ROS is otherwise unremarkable Physical Examination - Vital Signs Temperature: 98 F Blood Pressure: 147/94 Pulse: 64 Respirations: 28 Pulse Ox (%): 96 - Physical Exam General: Alert, Other (Tachypneic and looks anxious laying in bed) Respiratory: Diminished, Crackles/rales, Expiratory wheezes Cardiovascular: Regular rate/rhythm, Normal S1 S2 Gastrointestinal: Normal bowel sounds, Hypoactive, Soft and benign, Non- distended Musculoskeletal: No clubbing, No contractures, No erythema Integumentary: Other (Multiple skin lesions throughout) Neurological: Other (No focal deficits) Assessment & Plan - Problems (Diagnosis) (1) Interstitial lung disease Current Visit: Yes Status: Acute (2) Macrocytic anemia Current Visit: Yes Status: Acute (3) Metabolic acidosis Current Visit: Yes Status: Acute (4) Perianal abscess Current Visit: Yes Status: Acute (5) Acute worsening of stage 3 chronic kidney disease Current Visit: No Status: Acute (6) History of Rahul-en-Y gastric bypass Current Visit: No Status: Acute (7) Peripheral arterial disease Current Visit: No Status: Acute (8) DM type 2 (diabetes mellitus, type 2) Current Visit: No Status: Chronic - Plan Plan: 1. Patient looks like he has had some chronic lung changes. Abnormal CT scan findings of the chest in September. These have progressed over the last few months. Patient with appears to be some form of interstitial lung disease that has progressed into ARDS findings. ARDS from infection tends to be very acute and patient would not of had prior abnormal lung changes. Oxygenation is still very poor. Continues on antibiotics and steroids. Workup for other causes of interstitial lung disease at this time pending. If patient's pulmonary status improves he may benefit from bronchoscopy. 2. Patient with perianal abscess; scheduled for I&D. Continue on antibiotic therapy. 3. Acute on chronic kidney disease; continue monitoring renal function which is stable 4. Anion gap metabolic acidosis; continue monitoring bicarb levels 5. History of diabetes type 2; strict blood sugar control 6. GI DVT prophylaxis - Advance Directives Does patient have a Living Will: No Does patient have a Durable POA for Healthcare: No - Code Status/Comfort Care Code Status: Full Code
[2023-12-21] MEDS: DEXMEDETOMIDINE HCL 200 MCG in NA CHLORIDE 0.9% 98 ML IV SCH (09:26)
[2023-12-21] MEDS: NA CHLORIDE 0.9% 1,000 ML ONE (09:50)
--- NOTE | 2023-12-21 10:08 | RAD REPORT ---
EXAM: Chest Single View HISTORY: ARDS COMPARISON: Yesterday FINDINGS: LUNGS/PLEURA: Widespread interstitial and airspace disease bilaterally. This is unchanged. MEDIASTINUM: The mediastinal silhouette is within normal limits. CARDIAC: Similar size and configuration UPPER ABDOMEN: No significant abnormality. BONES: No acute fracture. LINES/TUBES/OTHER: Left subclavian approach PICC with tip overlying the proximal SVC which is retract ed from yesterday. IMPRESSION: Widespread bilateral airspace disease without significant interval change. The PICC has been retracte d slightly and is now overlying the proximal SVC.
--- NOTE | 2023-12-21 10:57 | P.BOP ---
Preoperative diagnosis: Perianal/perirectal/R buttock abscess Postoperative diagnosis: same Primary procedure: EUA, Anoscopy, rigid proctoscopy Secondary procedure: I&D complex perirectal abscess Estimated blood loss: <10cc Specimen: culture, necrotic tissue Findings: Perianal/perirectal/R buttock abscess Anesthesia: Spinal Complications: None Drain(s): Other (wet to dry NS) Transferred to: Recovery Room Condition: Good
--- NOTE | 2023-12-21 12:19 | P.PN ---
Subjective Date of Service: 12/21/23 Chief Complaint: ARDS Patient is status post I&D of his perianal abscess morning he felt better shortness of breath is improved still has diffuse bilateral changes on his chest x-ray able to speak in full sentences Review of Systems General: Weakness Respiratory: Shortness of Breath Physical Examination - Vital Signs Temperature: 97.5 F Blood Pressure: 156/85 Pulse: 56 Respirations: 24 Pulse Ox (%): 96 - Physical Exam General: Alert, Oriented x3, Mild distress Respiratory: Crackles/rales Cardiovascular: No edema, Normal S1 S2 Other Physical/Emotional Findings: - Physical Exam. General: Morbidly obese, not acutely ill looking, in no apparent distress,. HEENT: Normocephalic, atraumatic,. Neck: Supple, without JVD or goiter or thyroid mass. Respiratory: No acute respite distress, clear to auscultation bilaterally, no crackles no wheezing or rhonchi. Cardiovascular: Distant heart sound. Gastrointestinal: Distended, decreased bowel sounds, no palpable mass. Musculoskeletal: No cyanosis, No peripheral edema. Integumentary: No rashes Assessment And Plan - Current Problems (Diagnosis) (1) ARDS (adult respiratory distress syndrome) Current Visit: Yes Status: Acute Plan: Patient has developed ARDS etiology unknown lab tests are still pending and to to BiPAP with Precedex Klebsiella pneumonia isolated in the urine sensitive to Rocephin patient's white count is declining white count is declining coronavirus test ordered (2) Metabolic acidosis Current Visit: Yes Status: Acute Plan: Patient has underlying chronic metabolic acidosis hyperchloremic anion gap (3) Perianal abscess Current Visit: Yes Status: Acute Plan: Continue with Rocephin and metronidazole add p.o. DC vancomycin
[2023-12-21 13:29] LABS: Absolute Lymphocytes (CBC) 0.6 K/uL (0.7-4.9); Absolute Monocytes 0.5 K/uL (0.1-1.3); Absolute Neutrophil 13.1 K/uL (1.8-8.0); Hemoglobin 7.4 g/dL (13.6-17.9); Lymphocytes % 4.5 % (15.3-44.8); MCH 34.7 pg (27.0-35.0); MCV 108.5 fL (80-100); MPV 8.7 fL (7.6-11.3); Monocytes % 3.6 % (3.3-12.3); Neutrophils % 91.9 % (41.7-73.7); Nucleated Red Blood Cells % 0.2 % (0-0); Platelets 187 thou/uL (152-406); RBC Red Blood Cell Count 2.12 M/uL (4.33-5.43); Red Cell Distribution Width 15.1 % (12.1-15.2)
[2023-12-21 14:11] LABS: Anion Gap 9.4 mEq/L (5.0-15.0); BUN Blood Urea Nitrogen 25 mg/dL (7-18); Bicarbonate 22 mEq/L (21-32); Creatine Phosphokinase 23 U/L (39-308); Ferritin 484.2 ng/mL (26-388); Glomerular Filtration Rate 55 ml/min (=/>90); Glucose Level 173 mg/dL (74-106); Magnesium 2.2 mg/dL (1.6-2.4); Potassium 3.4 mEq/L (3.5-5.1); Sodium Level 145 mEq/L (136-145)
[2023-12-21 15:38] LABS: SARS-CoV-2 Antigen CONTROL BLUE LINE VIS/BG OK; SARS-CoV-2 Antigen Rapid Res Negative (Negative)
--- NOTE | 2023-12-21 16:46 | P.PN ---
Date of Service: 12/21/23 Subjective Patient respiratory status stable. Patient is planned on going to general surgery. I&D of perirectal abscess. Continue workup for other causes of interstitial lung disease. Inflammatory markers pending. Appreciate pulmonary and surgery input. Physical Examination - Vital Signs Reviewed - Physical Exam General: Alert, Other (Tachypneic and looks anxious laying in bed) Respiratory: Diminished, Crackles/rales, Expiratory wheezes Cardiovascular: Regular rate/rhythm, Normal S1 S2 Gastrointestinal: Normal bowel sounds, Hypoactive, Soft and benign, Non- distended Musculoskeletal: No clubbing, No contractures, No erythema Integumentary: Other (Multiple skin lesions throughout) Neurological: Other (No focal deficits) Assessment & Plan - Problems (Diagnosis) (1) Interstitial lung disease/ARDS Current Visit: Yes Status: Acute (2) Macrocytic anemia Current Visit: Yes Status: Acute (3) Metabolic acidosis Current Visit: Yes Status: Acute (4) Perianal abscess Current Visit: Yes Status: Acute (5) Acute worsening of stage 3 chronic kidney disease Current Visit: No Status: Acute (6) History of Rahul-en-Y gastric bypass Current Visit: No Status: Acute (7) Peripheral arterial disease Current Visit: No Status: Acute (8) DM type 2 (diabetes mellitus, type 2) Current Visit: No Status: Chronic - Plan Plan of care as mentioned below: 1. Patient looks like he has had some chronic lung changes. Abnormal CT scan findings of the chest in September and 2021. These have progressed over the last few months. Patient with appears to be some form of interstitial lung disease that has progressed into ARDS findings. Oxygenation is still very poor. Continues on antibiotics and steroids. Workup for other causes of interstitial lung disease at this time pending. If patient's pulmonary status improves he may benefit from bronchoscopy. 2. Patient with perianal abscess; scheduled for I&D. Continue on antibiotic therapy. 3. Acute on chronic kidney disease; continue monitoring renal function which is stable 4. Anion gap metabolic acidosis; continue monitoring bicarb levels 5. History of diabetes type 2; strict blood sugar control 6. GI DVT prophylaxis - Advance Directives Does patient have a Living Will: No Does patient have a Durable POA for Healthcare: No - Code Status/Comfort Care Code Status: Full Code Critical care time spent on patient care was 30 minutes
--- NOTE | 2023-12-21 21:06 | P.PN ---
Date of Service: 12/21/23 Vital Signs Temp Pulse Resp BP Pulse Ox 98 F 64 30 H 147/94 H 95 12/21/23 16:43 12/21/23 16:43 12/21/23 20:47 12/21/23 16:43 12/21/23 20:47 Medications Acetaminophen (Acetaminophen 325 Mg Tablet) 650 mg PO Q4HP PRN PRN Reason: Pain scale 2-4 (Mild) Hydrocodone Bitart/Acetaminophen (Hydrocodone/Apap 5/325 Mg Tab) 1 tab PO Q4H PRN PRN Reason: Pain scale 5-7 (Moderate) Last Admin: 12/21/23 03:20 Dose: 1 tab Cyclobenzaprine HCl (Cyclobenzaprine 10 Mg Tab) 10 mg PO TID PRN PRN Reason: MUSCLE SPASMS Last Admin: 12/21/23 19:54 Dose: 10 mg Doxepin HCl (Doxepin Hcl 25 Mg Cap) 75 mg PO BEDTIME [facility] Last Admin: 12/21/23 19:53 Dose: 75 mg Enteral Nutritional Formula (Glucerna Shake 237 Ml Can) 237 ml PO BID [facility] Last Admin: 12/21/23 19:55 Dose: 237 ml Fluoxetine HCl (Fluoxetine 20 Mg Cap) 40 mg PO DAILY [facility] Last Admin: 12/21/23 08:01 Dose: 40 mg Gabapentin (Gabapentin 300 Mg Cap) 600 mg PO TID [facility] Last Admin: 12/21/23 19:53 Dose: 600 mg Glucagon (Glucagon 1 Mg/Vial) 1 mg IM 1X PRN PRN Reason: HYPOGLYCEMIA Heparin Sodium (Porcine) (Heparin 5000 Unit/Ml 1 Ml Vial) 5,000 unit SQ Q12HR [facility] Last Admin: 12/21/23 20:56 Dose: 5,000 unit Ceftriaxone Sodium 1,000 mg/ (Sodium Chloride) 50 mls @ 100 mls/hr IVPB DAILY [facility]; Protocol Last Admin: 12/21/23 08:01 Dose: 50 mls Metronidazole/Sodium Chloride (Flagyl 500mg/100 Ml Iv Premix) 500 mg in 100 mls @ 200 mls/hr IV Q8H [facility]; Protocol Last Admin: 12/21/23 14:27 Dose: 100 mls Dextrose (Dextrose 10% Water Iv Soln.) 125 mls @ 0 mls/hr IV PRN PRN; Protocol PRN Reason: HYPOGLYCEMIA Dexmedetomidine HCl 200 mcg/ (Sodium Chloride) 100 mls @ 9.616 mls/hr IV TITR [facility]; Protocol Last Titration: 12/21/23 10:00 Dose: 0 mcg/kg/hr, 0 mls/hr Insulin Human Regular (Insulin Regular (Human) 100 Unit/Ml) 0 unit SQ Q6HR [facility]; Protocol Last Admin: 12/21/23 17:43 Dose: 2 unit Methylprednisolone Sodium Succinate (Methylprednisolone 40 Mg Inj) 40 mg IV Q12HR [facility] Last Admin: 12/21/23 19:54 Dose: 40 mg Morphine Sulfate (Morphine 2 Mg/Ml Syr) 2 mg IV Q4H PRN PRN Reason: Pain scale 8-10 (Severe) Last Admin: 12/21/23 20:47 Dose: 2 mg Mupirocin (Mupirocin Nasal 2 Appl/1 Gm Tube) 1 appl BERTHA BID [facility] Stop: 12/24/23 09:01 Last Admin: 12/21/23 19:54 Dose: 1 appl Ondansetron HCl (Ondansetron 4 Mg/2 Ml Vial) 4 mg IV Q6HP PRN PRN Reason: NAUSEA / VOMITING Microbiology Results 12/18/23 21:53 Blood - Blood Aerobic Blood Culture - Preliminary No growth in 24 hours. 12/18/23 21:53 Blood - Blood Anaerobic Blood Culture - Preliminary No growth in 24 hours. 12/18/23 21:53 Blood - Blood Aerobic Blood Culture - Preliminary No growth in 24 hours. 12/18/23 21:53 Blood - Blood Anaerobic Blood Culture - Preliminary No growth in 24 hours. Assessment/ Plan: Nephrology No dyspnea No chest pain No acute events overnight Vitals, medications, blood work and imaging reviewed in the chart General: In no apparent distress, Oriented x3, Cooperative HEENT: Atraumatic Neck: Supple Respiratory: Normal air movement Cardiovascular: No edema, Regular rate/rhythm Gastrointestinal: Soft and benign, Non-distended Musculoskeletal: No clubbing, No contractures Integumentary: No rashes, No cyanosis Neurological: Normal speech Laboratory Data (last 24 hrs) 12/18/23 12/18/23 21:56 18:53 WBC 22.70 H Hgb 8.8 L Hct 27.3 L Plt Count 288 PT 15.1 H INR 1.36 APTT 34.6 Imagings Data: [id number] EXAMINATION: ONE VIEW CHEST XR CLINICAL INDICATION: Male, 48 years old.,PICC line TECHNIQUE: Frontal chest projection is submitted. Examination is limited by patient positioning and technique. COMPARISON: Chest radiograph of earlier the same day FINDINGS: Partial improvement of central interstitial prominence. Stable to mildly improved fluffy central predominant opacities. Left arm PICC has been placed with tip at the level of the distal SVC. No pneumothorax or sizable effusion. The heart is normal in size. Mediastinal contours are unremarkable. IMPRESSION: Satisfactory positioning of left arm PICC. Changes of pulmonary edema, partially improved. [id number] EXAMINATION: ONE VIEW CHEST XR CLINICAL INDICATION: Male, 48 years old.,sob TECHNIQUE: Frontal chest projection is submitted. Examination is limited by patient positioning and technique. COMPARISON: 12/18/2023 FINDINGS: Central interstitial prominence and confluent bilateral central predominant fluffy opacities, progressive. No pneumothorax or sizable effusion. The heart is normal in size. Mediastinal contours are unremarkable. IMPRESSION: Progressive central interstitial prominence and airspace opacities, most concerning for pulmonary edema. [id number] EXAMINATION: ONE VIEW CHEST XR CLINICAL INDICATION: Male, 48 years old.SOB TECHNIQUE: 1 View, AP supine, X-ray of the chest was performed. [id number]. COMPARISON: Chest radiograph 11/10/2023, chest CT 09/12/2023 FINDINGS: Lungs and pleura: Ill-defined bilateral airspace disease which has progressed since 11/10/2023. No effusion. Heart and mediastinum: Normal heart size. Unremarkable mediastinal contours. Osseous structures: No acute abnormality. Tubes/lines: None Other: None. IMPRESSION: Increased ill-defined irregular bilateral airspace disease which could reflect multifocal pneumonia. [id number] EXAM: CT CHEST, ABDOMEN AND PELVIS WITHOUT CONTRAST CLINICAL INDICATION: Male, 48 years old Abd pain;Rectal drainage;SOB TECHNIQUE: CT chest, abdomen and pelvis was performed, without IV contrast, as per department protocol. Axial, sagittal and coronal reconstructions were obtained. One or more of the following dose reduction techniques were used: Automated exposure control, adjustment of the mA and/or kV according to the patient size, and/or iterative reconstruction. Unless otherwise specified, incidental findings do not require dedicated imaging follow-up. [id number]. COMPARISON: 09/12/2023, 08/15/2023 FINDINGS: The lack of intravenous contrast limits the sensitivity of this exam for evaluation of solid visceral organs, vascular structures, and retroperitoneum. Chest: LOWER NECK/CHEST WALL: Visualized thyroid gland and soft tissues are normal. LUNGS AND AIRWAYS: Worsened multifocal nodular and groundglass opacities, previously mainly in the left lung and now diffuse. PLEURA: No pleural effusion. No pneumothorax. Hemidiaphragms are normally positioned. MEDIASTINUM AND LYMPH NODES: Dense material in the distal esophagus could be from a prior study with oral contrast. THORACIC AORTA: Normal caliber and configuration. PULMONARY ARTERIES: Normal caliber. HEART: Trace pericardial effusion. Coronary artery calcifications which are mild. Abdomen/Pelvis LIVER: Normal in size and contour. No focal lesion. GALLBLADDER/BILE DUCTS: Cholecystectomy PANCREAS: Pancreatic atrophy. SPLEEN: Normal size. No focal lesion. ADRENALS: Normal; no mass. KIDNEYS AND URETERS: Punctate stone in the right kidney. No hydronephrosis. GASTROINTESTINAL TRACT: Rahul-en-Y gastric bypass. Moderate stool in the colon. No bowel obstruction. PERITONEUM: No free fluid. LYMPH NODES: No lymphadenopathy. ABDOMINAL AORTA AND OTHER VESSELS: Normal caliber aorta and IVC. URINARY BLADDER: Normal contour. REPRODUCTIVE ORGANS: No pathologic process. MUSCULOSKELETAL: No acute or suspicious osseous abnormality. Healed remote left 11th rib fracture. Remote T11 compression fracture. ADDITIONAL FINDINGS: Gas and fluid containing collection in the right medial gluteal fold and perianal region measuring approximately 4.2 x 4.9 cm x 2 cm. IMPRESSION: 1. Perianal abscess with or without fistula. 2. Worsened bilateral airspace disease compared with 09/12/2023. The appearance is most consistent with infection or inflammation but the differential is broader as the findings are progressive and chronic. 3. Dense fluid in the distal esophagus is presumably recently ingested oral contrast. This may be from an outside facility. Oral contrast is seen distally within the bowel. Retention of contrast in the esophagus could be from reflux or possible a stricture. Chronic aspiration could conceivably explain the progressive lung findings. Conclusions/Impression: Stage I MIGUEL in the setting of hypotension CKD II with Proteinuria -No NSAIDs Hypokalemia -Replete as ordered Acute Metabolic Acidosis -Improving Hypomagnesemia -Replete as ordered Acute Hypoxic Respiratory Failure ARDS -Continue Oxygen supplementation -Continue Steroids -Pulmonary following Sepsis -Continue Abx -Vasopressor support prn Peripheral Edema Pulmonary Edema -Lasix prn Hypoalbuminemia -Recommend protein supplementation Anemia in chronic illness Macrocytosis -Monitor H&H -PRBC prn PeriAnal Abscess -Continue Abx -Follow up with surgery Acute Infective Cystitis with Hematuria -Continue Abx -Follow up culture Hospitalist and Pulmonary notes reviewed Case reviewed with Dr. Jeter Patient care 35min
--- NOTE | 2023-12-21 23:59 | OP ---
Date of Procedure: 12/21/2023 Surgeon: Angelo Fowler MD Preoperative Diagnoses: Perianal, perirectal, right buttock abscess; respiratory insufficiency; mult iple medical problems; bilateral pneumonia. Postoperative Diagnoses: Perianal, perirectal, right buttock abscess; respiratory insufficiency; mul tiple medical problems; bilateral pneumonia. Procedures: Exam under anesthesia, anoscopy, rigid proctoscopy, incision and drainage of complex per irectal abscess. Estimated Blood Loss: Less than 10 cc. Specimens: Culture and necrotic tissue. Findings: The patient has a perirectal abscess that extended into perianal and right buttock region. Anesthesia: Spinal. Complications: None. Packing: Wet-to-dry. Indications: This is a case of a male, who comes to us to the ICU with multiple medical problems. E vanesa though, he has all these problems and have heart issues and lung issues, still I have to address the issue of the perianal, perirectal abscess and right buttock abscess. We were able to discuss jaxon t with the primary doctor, bridge painter helper, Anesthesia until they gave me a window of opportunity to ad dress this issue of the perianal abscess. We understand there are many risks involved including infe ction, bleeding, damage to adjacent structures, even ventilator dependency, but at the same time, I w ould need to fix this perianal abscess. Otherwise, this may be just added to his list of problems an d recovery may be delay. So, the anesthesiologist decided to do a spinal anesthetic and gave me a wi ndow of opportunity of to address this issue, so we explained to the patient the benefits, alternativ es, and risks, which include, but not limited to infection, bleeding, damage to adjacent structures, anesthesia complication, recurrence, PA, and even . He also understands this may not relieve an y symptoms. He might need more than one surgical intervention including further debridement. He sig ariella a consent. Description Of Procedure: The patient was brought to operating room, placed in supine position. Ane sthesia was previously done, spinal, and then we proceeded to place the patient on lithotomy position with proper protection. A time-out was called. We noticed the area of the disease. We really arsen ed this in advance. We noticed this perianal right buttock abscess area. The CAT scan may extend in to the perirectal region, so we did a rectal examination after time-out and after that, proceeded to do anoscopy, rigid proctoscopy inside the rectum. We did not see the mucosa coming through. We know the abscess goes near the rectum area. Once we removed the right buttock and perianal necrotic tiss ue, we were able to address this cavity all the way down to the rectum, but I did not see any connect ion to the rectum at this moment. So, profuse irrigation was done and the pulse lavage was done with several liters of saline to help also including these cavities. Local anesthetic was applied. Hemo stasis was obtained and then we proceeded to pack the area with a dry dressing. The size of the area is about 5 x 5, at least 6 cm deep. The patient tolerated the procedure well. The patient was sent to recovery in stable condition. RICHARD/TAMIKO Voice ID: [id number] Report ID: [id number]
[2023-12-22 04:19] LABS: Rheumatoid Factor NEG (NEG)
[2023-12-22 04:42] LABS: Absolute Lymphocytes (CBC) 0.6 K/uL (0.7-4.9); Absolute Monocytes 0.6 K/uL (0.1-1.3); Absolute Neutrophil 15.2 K/uL (1.8-8.0); Basophils % 0.1 % (0-1.3); Hematocrit 22.4 % (39.6-49.0); Hemoglobin 7.2 g/dL (13.6-17.9); Lymphocytes % 3.5 % (15.3-44.8); MCH 34.9 pg (27.0-35.0); MCHC 32.2 g/dL (32.0-36.0); MCV 108.4 fL (80-100); MPV 8.6 fL (7.6-11.3); Monocytes % 3.4 % (3.3-12.3); Nucleated RBC Absolute Count 0.1 (0-0); Nucleated Red Blood Cells % 0.3 % (0-0); Platelets 171 thou/uL (152-406); RBC Red Blood Cell Count 2.06 M/uL (4.33-5.43); Red Cell Distribution Width 15.7 % (12.1-15.2)
[2023-12-22 04:58] LABS: Anion Gap 8.3 mEq/L (5.0-15.0); Magnesium 2.2 mg/dL (1.6-2.4); Phosphorus 2.2 mg/dL (2.5-4.9); Potassium 3.3 mEq/L (3.5-5.1)
[2023-12-22] MEDS: POTASSIUM PHOS IN 0.9 % NACL 15 MMOL/250 ML BAG IV ONE (05:55)
[2023-12-22 07:45] LABS: Differential Total Cells Count 100; Lymphocytes 5 % (15-42); Monocytes 0 % (0-10); Platelet Estimate ADEQ; Segmented Neutrophils 95 % (40-80)
[2023-12-22 07:46] LABS: Anisocytosis 1+; Blood Morphology Comment NOTED (NOT SEEN); Macrocytosis 1+; Polychromasia 1+
--- NOTE | 2023-12-22 07:49 | RAD REPORT ---
Procedure: Chest Single View HISTORY: Chest pain COMPARISON: December 21, 2023 FINDINGS: Minimal improvement in extensive bilateral pulmonary opacities. No significant pleural effusion noted. The heart remains enlarged IMPRESSION: Minimal improvement in the diffuse bilateral pulmonary opacities
--- NOTE | 2023-12-22 08:15 | P.PN ---
Date of Service: 12/22/23 Subjective Patient doing little bit better. Patient more awake and alert and chest x-ray looks slightly improved. Will try to wean down his oxygen requirements. Continue with IV steroids for his respiratory issues. Continue with IV antibiotics. Did well postoperatively. Physical Examination - Vital Signs Reviewed - Physical Exam General: Alert, Other (Tachypneic and looks anxious laying in bed) Respiratory: Diminished, Crackles/rales, Expiratory wheezes Cardiovascular: Regular rate/rhythm, Normal S1 S2 Gastrointestinal: Normal bowel sounds, Hypoactive, Soft and benign, Non- distended Musculoskeletal: No clubbing, No contractures, No erythema Integumentary: Other (Multiple skin lesions throughout) Neurological: Other (No focal deficits) Assessment & Plan - Problems (Diagnosis) (1) Interstitial lung disease/ARDS Current Visit: Yes Status: Acute (2) Macrocytic anemia Current Visit: Yes Status: Acute (3) Metabolic acidosis Current Visit: Yes Status: Acute (4) Perianal abscess Current Visit: Yes Status: Acute (5) Acute worsening of stage 3 chronic kidney disease Current Visit: No Status: Acute (6) History of Rahul-en-Y gastric bypass Current Visit: No Status: Acute (7) Peripheral arterial disease Current Visit: No Status: Acute (8) DM type 2 (diabetes mellitus, type 2) Current Visit: No Status: Chronic - Plan Plan of care as mentioned below: 1. Patient looks like he has had some chronic lung changes. Abnormal CT scan findings of the chest in September and 2021. These have progressed over the last few months. Patient with appears to be some form of interstitial lung disease that has progressed into ARDS findings. Oxygenation is still very poor. Continues on antibiotics and steroids. Workup for other causes of interstitial lung disease at this time pending. If patient's pulmonary status improves he may benefit from bronchoscopy. Pulmonary following the patient and appreciate their assistance. 2. Patient with perianal abscess; status post I&D. Continue on antibiotic therapy. 3. Acute on chronic kidney disease; continue monitoring renal function which is stable 4. Anion gap metabolic acidosis; continue monitoring bicarb levels; respiratory status has slowly improved 5. History of diabetes type 2; strict blood sugar control 6. GI DVT prophylaxis - Advance Directives Does patient have a Living Will: No Does patient have a Durable POA for Healthcare: No - Code Status/Comfort Care Code Status: Full Code Critical care time spent on patient care was 30 minutes
[2023-12-22] MEDS: KCL 20 MEQ/100 mL IVPB 20 MEQ/100 ML BAG IV SCH (09:00)
--- NOTE | 2023-12-22 10:20 | ECHO ---
HEIGHT: 6 ft 2 in WEIGHT: 212 lb 0 oz DATE OF STUDY: 12/21/[address]: Miriam Boss MD 2-DIMENSIONAL: YES M.MODE: YES DOPPLER: YES COLOR FLOW: YES TDS: PORTABLE: YES DEFINITY: BUBBLE STUDY: DIAGNOSIS: RESPIRATORY FAILURE CARDIAC HISTORY: CATHERIZATION: NO SURGERY: NO PROSTHETIC VALVE: NO PACEMAKER: NO MEASUREMENTS (cm) DIASTOLIC (NORMALS) SYSTOLIC (NORMALS) IVSd 1.3 (0.6-1.2) LA Diam 3.8 (1.9-4.0) LVEF 60-65% LVIDd 4.4 (3.5-5.7) LVIDs 2.7 (2.0-3.5) %FS 38% LVPWd 1.4 (0.6-1.2) Ao Diam 3.3 (2.0-3.7) 2 DIMENSIONAL ASSESSMENT: RIGHT ATRIUM: NORMAL LEFT ATRIUM: ENLARGED RIGHT VENTRICLE: NORMAL LEFT VENTRICLE: NORMAL TRICUSPID VALVE: MODERATE TO SEVERE TRICUSPID REGURGITATION MITRAL VALVE: MILD MITRAL REGURGITATION PULMONIC VALVE: NORMAL AORTIC VALVE: NORMAL PERICARDIAL EFFUSION: NONE AORTIC ROOT: NORMAL LEFT VENTRICULAR WALL MOTION: NORMAL DOPPLER/COLOR FLOW: SEE BELOW COMMENTS: 1. NORMAL LEFT VENTRICULAR EJECTION FRACTION 60-65% WITH NORMAL WALL MOTION 2. LEFT ATRIAL ENLARGEMENT 3. DIASTOLIC DYSFUNCTION 4. SEVERE PULMONARY HYPERTENSION WITH RIGHT VENTRICULAR SYSTOLIC PRESSURE GREATER THAN 75 mmHg 5. MILD TRICUSPID REGURGITATION TECHNOLOGIST: BRADLEY CORRIGAN
[2023-12-22] MEDS: PIPER TAZO 3.375 GM in NA CHLORIDE 0.9% 100 ML IV SCH (10:42)
--- NOTE | 2023-12-22 11:09 | P.PN ---
Nephrology Remains in the ICU, off BIPAP when seen but on HFNC, no acute resp distress when seen, stable vitals, discussed renal function tests Vitals, medications, blood work and imaging reviewed in the chart General: In no apparent distress, but appears ill HEENT: Atraumatic, HFNC Neck: Supple Respiratory: Non tachypnec, no wheezing Cardiovascular: No sig edema, mild tachy Gastrointestinal: Soft and benign, Non-distended Musculoskeletal: No contractures Integumentary: No rashes Neurological: Awake, alert, conversive Laboratory Data (last 24 hrs) Reviewed in the EMR [id number] EXAM: CT CHEST, ABDOMEN AND PELVIS WITHOUT CONTRAST CLINICAL INDICATION: Male, 48 years old Abd pain;Rectal drainage;SOB TECHNIQUE: CT chest, abdomen and pelvis was performed, without IV contrast, as per department protocol. Axial, sagittal and coronal reconstructions were obtained. One or more of the following dose reduction techniques were used: Automated exposure control, adjustment of the mA and/or kV according to the patient size, and/or iterative reconstruction. Unless otherwise specified, incidental findings do not require dedicated imaging follow-up. [id number]. COMPARISON: 09/12/2023, 08/15/2023 FINDINGS: The lack of intravenous contrast limits the sensitivity of this exam for evaluation of solid visceral organs, vascular structures, and retroperitoneum. Chest: LOWER NECK/CHEST WALL: Visualized thyroid gland and soft tissues are normal. LUNGS AND AIRWAYS: Worsened multifocal nodular and groundglass opacities, previously mainly in the left lung and now diffuse. PLEURA: No pleural effusion. No pneumothorax. Hemidiaphragms are normally positioned. MEDIASTINUM AND LYMPH NODES: Dense material in the distal esophagus could be from a prior study with oral contrast. THORACIC AORTA: Normal caliber and configuration. PULMONARY ARTERIES: Normal caliber. HEART: Trace pericardial effusion. Coronary artery calcifications which are mild. Abdomen/Pelvis LIVER: Normal in size and contour. No focal lesion. GALLBLADDER/BILE DUCTS: Cholecystectomy PANCREAS: Pancreatic atrophy. SPLEEN: Normal size. No focal lesion. ADRENALS: Normal; no mass. KIDNEYS AND URETERS: Punctate stone in the right kidney. No hydronephrosis. GASTROINTESTINAL TRACT: Rahul-en-Y gastric bypass. Moderate stool in the colon. No bowel obstruction. PERITONEUM: No free fluid. LYMPH NODES: No lymphadenopathy. ABDOMINAL AORTA AND OTHER VESSELS: Normal caliber aorta and IVC. URINARY BLADDER: Normal contour. REPRODUCTIVE ORGANS: No pathologic process. MUSCULOSKELETAL: No acute or suspicious osseous abnormality. Healed remote left 11th rib fracture. Remote T11 compression fracture. ADDITIONAL FINDINGS: Gas and fluid containing collection in the right medial gluteal fold and perianal region measuring approximately 4.2 x 4.9 cm x 2 cm. IMPRESSION: 1. Perianal abscess with or without fistula. 2. Worsened bilateral airspace disease compared with 09/12/2023. The appearance is most consistent with infection or inflammation but the differential is broader as the findings are progressive and chronic. 3. Dense fluid in the distal esophagus is presumably recently ingested oral contrast. This may be from an outside facility. Oral contrast is seen distally within the bowel. Retention of contrast in the esophagus could be from reflux or possible a stricture. Chronic aspiration could conceivably explain the progressive lung findings. Conclusions/Impression: Stage I MIGUEL 2nd to hemodynamics, resp failure -Stable renal function currently but cont to monitor closely Hypokalemia -Replete as ordered Acute Hypoxic Respiratory Failure ARDS possibly -Management per pulm -TTE shows enlarged LA, diastolic dysfunction, pulm HTN unspecified. Target neg fluid balance, use lasix intermittently Pyuria, bacteriuria, cystitis -Complete Abx course
--- NOTE | 2023-12-22 12:26 | P.PN ---
Subjective Date of Service: 12/22/23 Chief Complaint: ARDS Patient states that he is feeling better although he did experience desaturation at night Review of Systems General: Weakness Respiratory: Shortness of Breath Physical Examination - Vital Signs Temperature: 97.1 F Blood Pressure: 128/89 Pulse: 87 Respirations: 19 Pulse Ox (%): 100 - Physical Exam General: Alert, Oriented x3 Respiratory: Clear to auscultation bilaterally, Friction rub Cardiovascular: Regular rate/rhythm Other Physical/Emotional Findings: - Physical Exam. General: Morbidly obese, not acutely ill looking, in no apparent distress,. HEENT: Normocephalic, atraumatic,. Neck: Supple, without JVD or goiter or thyroid mass. Respiratory: No acute respite distress, clear to auscultation bilaterally, no crackles no wheezing or rhonchi. Cardiovascular: Distant heart sound. Gastrointestinal: Distended, decreased bowel sounds, no palpable mass. Musculoskeletal: No cyanosis, No peripheral edema. Integumentary: No rashes Assessment And Plan - Current Problems (Diagnosis) (1) ARDS (adult respiratory distress syndrome) Current Visit: Yes Status: Acute Plan: Patient admitted with ARDS actively feeling better has diffuse interstitial changes on chest x-ray white count is mildly elevated continue to wean down on O2 titrate sat to 88 to 90% another 24 hours of steroid treatment (2) Metabolic acidosis Current Visit: Yes Status: Acute Plan: Patient is acidosis has improved (3) Perianal abscess Current Visit: Yes Status: Acute Plan: Continue with Rocephin and metronidazole add p.o. DC vancomycin
[2023-12-22] MEDS: FUROSEMIDE 20 MG/ 2ML VIAL IV ONE (12:51)
[2023-12-23 05:01] LABS: Absolute Lymphocytes (CBC) 0.5 K/uL (0.7-4.9); Absolute Monocytes 0.7 K/uL (0.1-1.3); Absolute Neutrophil 14.1 K/uL (1.8-8.0); Basophils % 0.1 % (0-1.3); Hemoglobin 7.3 g/dL (13.6-17.9); Lymphocytes % 3.6 % (15.3-44.8); MCH 35.6 pg (27.0-35.0); MCHC 33.2 g/dL (32.0-36.0); MCV 107.2 fL (80-100); MPV 7.7 fL (7.6-11.3); Monocytes % 4.3 % (3.3-12.3); Nucleated Red Blood Cells % 0.1 % (0-0); Platelets 108 thou/uL (152-406); RBC Red Blood Cell Count 2.06 M/uL (4.33-5.43); Red Cell Distribution Width 15.4 % (12.1-15.2)
[2023-12-23 05:19] LABS: Magnesium 1.8 mg/dL (1.6-2.4); Phosphorus 1.8 mg/dL (2.5-4.9)
[2023-12-23] MEDS: POTASSIUM PHOS IN 0.9 % NACL 15 MMOL/250 ML BAG IV ONE (05:49)
[2023-12-23] MEDS: MAGNESIUM SULFATE 1 gm IVPB 1 GM/100 ML BAG IV ONE (05:49)
[2023-12-23] MEDS: KCL 20 MEQ/100 mL IVPB 20 MEQ/100 ML BAG IV ONE (08:26)
--- NOTE | 2023-12-23 09:27 | RAD REPORT ---
Procedure: Chest Single View HISTORY: ARDS COMPARISON: December 22, 2023 FINDINGS: Mild worsening in the extensive bilateral pulmonary opacities. No significant pleural effusion noted. The heart remains enlarged. PICC line in place IMPRESSION: Mild worsening in extensive bilateral pulmonary opacities
--- NOTE | 2023-12-23 12:04 | P.PN ---
Subjective Date of Service: 12/23/23 Chief Complaint: ARDS Patient states that he is subjectively improving Review of Systems General: Weakness Respiratory: Shortness of Breath Physical Examination - Vital Signs Temperature: 98.6 F Blood Pressure: 145/91 Pulse: 77 Respirations: 23 Pulse Ox (%): 96 - Physical Exam General: Alert, In no apparent distress, Oriented x3, Oriented x2 Respiratory: Clear to auscultation bilaterally, Diminished Cardiovascular: No edema, Normal pulses, Regular rate/rhythm Other Physical/Emotional Findings: - Physical Exam. General: Morbidly obese, not acutely ill looking, in no apparent distress,. HEENT: Normocephalic, atraumatic,. Neck: Supple, without JVD or goiter or thyroid mass. Respiratory: No acute respite distress, clear to auscultation bilaterally, no crackles no wheezing or rhonchi. Cardiovascular: Distant heart sound. Gastrointestinal: Distended, decreased bowel sounds, no palpable mass. Musculoskeletal: No cyanosis, No peripheral edema. Integumentary: No rashes Assessment And Plan - Current Problems (Diagnosis) (1) ARDS (adult respiratory distress syndrome) Current Visit: Yes Status: Acute Plan: Patient has ARDS oxygenation is improving we will [employer] exchange administrator to p.o. prednisone patient is still requiring high concentration of oxygen he is on Vapotherm 75% high flow oxygen (2) Metabolic acidosis Current Visit: Yes Status: Acute Plan: Renal function is improved anion gap is now normal (3) Perianal abscess Current Visit: Yes Status: Acute Plan: Continue with Rocephin and metronidazole add p.o. DC vancomycin
[2023-12-23] MEDS: predniSONE 20 MG TAB PO SCH (20:12)
[2023-12-24 05:15] LABS: Absolute Lymphocytes (CBC) 0.7 K/uL (0.7-4.9); Absolute Monocytes 1.2 K/uL (0.1-1.3); Absolute Neutrophil 16.2 K/uL (1.8-8.0); Basophils % 0.1 % (0-1.3); Hematocrit 23.4 % (39.6-49.0); Hemoglobin 7.5 g/dL (13.6-17.9); Lymphocytes % 3.6 % (15.3-44.8); MCH 34.7 pg (27.0-35.0); MCV 108.3 fL (80-100); MPV 9.8 fL (7.6-11.3); Monocytes % 6.4 % (3.3-12.3); Nucleated Red Blood Cells % 0.1 % (0-0); Platelets 96 thou/uL (152-406); RBC Red Blood Cell Count 2.16 M/uL (4.33-5.43); Red Cell Distribution Width 15.4 % (12.1-15.2)
[2023-12-24 05:23] LABS: Neutrophils % 89.9 % (41.7-73.7)
[2023-12-24 05:36] LABS: Anion Gap 8.2 mEq/L (5.0-15.0); Magnesium 1.9 mg/dL (1.6-2.4); Phosphorus 1.9 mg/dL (2.5-4.9); Potassium 3.2 mEq/L (3.5-5.1)
[2023-12-24] MEDS: POTASSIUM PHOS IN 0.9 % NACL 15 MMOL/250 ML BAG IV ONE (06:00)
--- NOTE | 2023-12-24 08:02 | RAD REPORT ---
Procedure: Chest Single View HISTORY: Chest pain COMPARISON: December 23, 2023 FINDINGS: Minimal improvement in the diffuse bilateral pulmonary opacities. Heart remains enlarged. PICC line in place IMPRESSION: Minimal improvement in the diffuse bilateral pulmonary opacities
[2023-12-24] MEDS: POTASSIUM CL SA 10 MEQ TAB PO ONE (08:49)
[2023-12-24] MEDS: APIXABAN 2.5 MG TABLET PO SCH (08:50)
[2023-12-24 10:40] LABS: Cyclic Citrullinated Peptide 87 Units (<20)
--- NOTE | 2023-12-24 11:16 | P.PN ---
Subjective Date of Service: 12/25/23 Chief Complaint: ARDS Patient is subjectively improving his sats are 100 responsive cooperative Review of Systems General: Weakness Respiratory: Shortness of Breath Physical Examination - Vital Signs Temperature: 98.2 F Blood Pressure: 121/72 Pulse: 86 Respirations: 22 Pulse Ox (%): 100 - Physical Exam General: Alert, Oriented x3 Respiratory: Crackles/rales (Lateral) Cardiovascular: No edema, Regular rate/rhythm, Normal S1 S2 Other Physical/Emotional Findings: - Physical Exam. General: Morbidly obese, not acutely ill looking, in no apparent distress,. HEENT: Normocephalic, atraumatic,. Neck: Supple, without JVD or goiter or thyroid mass. Respiratory: No acute respite distress, clear to auscultation bilaterally, no crackles no wheezing or rhonchi. Cardiovascular: Distant heart sound. Gastrointestinal: Distended, decreased bowel sounds, no palpable mass. Musculoskeletal: No cyanosis, No peripheral edema. Integumentary: No rashes - Studies Microbiology Data (last 24 hrs): 12/18/23 21:53 Blood - Blood Aerobic Blood Culture - Final No growth in 5 days. 12/18/23 21:53 Blood - Blood Anaerobic Blood Culture - Final No growth in 5 days. 12/18/23 21:53 Blood - Blood Aerobic Blood Culture - Final No growth in 5 days. 12/18/23 21:53 Blood - Blood Anaerobic Blood Culture - Final No growth in 5 days. Assessment And Plan - Current Problems (Diagnosis) (1) ARDS (adult respiratory distress syndrome) Current Visit: Yes Status: Acute Plan: Patient has ARDS seems to be clinically improving of the chest x-ray shows no significant change labs reviewed white count is mildly elevated function is improving microorganisms are all sensitive to Zosyn blood sugars elevated start on Lantus (2) Metabolic acidosis Current Visit: Yes Status: Acute Plan: Renal function is improved anion gap is now normal [place] acidosis and hyperchloremia have both improved (3) Perianal abscess Current Visit: Yes Status: Acute Plan: Continue with Rocephin and metronidazole add p.o. DC vancomycin (4) Pulmonary HTN Current Visit: Yes Status: Acute - Plan Patient has severe pulmonary hypertension I suspect is secondary to diastolic failure
--- NOTE | 2023-12-24 11:26 | P.PN ---
Nephrology Remains in the ICU, on/off BIPAP, no acute resp distress when seen, stable vitals, discussed renal function tests Vitals, medications, blood work and imaging reviewed in the chart General: In no apparent distress, but appears ill HEENT: Atraumatic, BIPAP mask Neck: Supple Respiratory: Non tachypnec, no wheezing Cardiovascular: No sig edema, mild tachy Gastrointestinal: Soft and benign, Non-distended Ext leonard present Musculoskeletal: No contractures Integumentary: No rashes Neurological: Awake, alert, conversive Laboratory Data (last 24 hrs) Reviewed in the EMR Conclusions/Impression: Stage I MIGUEL 2nd to hemodynamics, resp failure -resolved -Stable renal function currently but cont to monitor closely Hypokalemia -Will place on scheduled PO KCL Acute Hypoxic Respiratory Failure ARDS possibly -Management per pulm -TTE showed enlarged LA, diastolic dysfunction, pulm HTN unspecified. Target neg fluid balance, will place on scheduled lower dose lasix Pyuria, bacteriuria, cystitis -Complete Abx course
[2023-12-24] MEDS: INSULIN GLARGINE 100 UNIT/ML SQ SCH (12:16)
[2023-12-24] MEDS: FUROSEMIDE 20 MG TABLET PO SCH (12:18)
[2023-12-24] MEDS: ALBUMIN HUMAN 25% 100 ML IV ONE (12:18)
[2023-12-25] MEDS: FUROSEMIDE 20 MG/ 2ML VIAL IV ONE (00:36)
[2023-12-25] MEDS: MORPHINE 2 MG/ML SYR IV PRN (01:44)
[2023-12-25 03:22] LABS: C-ANCA Anti-Proteinase 3 <1.0 AI (<1.0); P-ANCA Anti-Myeloperoxidase Ab <1.0 AI (<1.0)
[2023-12-25 06:22] LABS: Anion Gap 8.1 mEq/L (5.0-15.0); C-Reactive Protein 11.4 mg/L (<3.00); Potassium 3.1 mEq/L (3.5-5.1)
[2023-12-25 06:26] LABS: Albumin/Globulin Ratio 0.7 (1.1-1.8); Anion Gap 7.1 mEq/L (5.0-15.0); Bilirubin Total 0.7 mg/dL (0.2-1.0); Globulin 2.7 g/dL (2.3-3.5); Magnesium 1.6 mg/dL (1.6-2.4); Phosphorus 1.6 mg/dL (2.5-4.9); Potassium 3.1 mEq/L (3.5-5.1); Protein, Total 4.7 g/dL (6.4-8.2)
[2023-12-25 06:39] LABS: Absolute Lymphocytes (CBC) 0.8 K/uL (0.7-4.9); Absolute Monocytes 1.1 K/uL (0.1-1.3); Absolute Neutrophil 17.7 K/uL (1.8-8.0); Basophils % 0.1 % (0-1.3); Hematocrit 22.1 % (39.6-49.0); Hemoglobin 7.1 g/dL (13.6-17.9); Lymphocytes % 4.2 % (15.3-44.8); MCHC 32.3 g/dL (32.0-36.0); MCV 108.4 fL (80-100); MPV 9.1 fL (7.6-11.3); Monocytes % 5.5 % (3.3-12.3); Neutrophils % 90.2 % (41.7-73.7); Nucleated Red Blood Cells % 0.1 % (0-0); Platelets 84 thou/uL (152-406); RBC Red Blood Cell Count 2.04 M/uL (4.33-5.43); Red Cell Distribution Width 15.6 % (12.1-15.2)
[2023-12-25] MEDS: POTASSIUM PHOS IN 0.9 % NACL 15 MMOL/250 ML BAG IV ONE (07:43)
[2023-12-25] MEDS: KCL 20 MEQ/100 mL IVPB 20 MEQ/100 ML BAG IV SCH (07:46)
--- NOTE | 2023-12-25 08:11 | RAD REPORT ---
EXAMINATION: ONE VIEW CHEST XR CLINICAL INDICATION: Male, 48 years old.,ARDS TECHNIQUE: Frontal chest projection is submitted. Examination is limited by patient positioning and t echnique. COMPARISON: 12/24/2023 FINDINGS: Progressive central interstitial prominence and fluffy central predominant airspace opacities. No pn eumothorax or sizable effusion. Stable cardiomegaly. Mediastinal contours are unremarkable. IMPRESSION: Progressive findings most suggestive of pulmonary edema.
[2023-12-25] MEDS: HYDROCODONE/APAP 5/325 MG TAB PO PRN (08:45)
[2023-12-25 09:08] LABS: Anti-Double Strand DNA Antibod <1 IU/mL (<=4)
[2023-12-25] MEDS: POTASSIUM CL SA 10 MEQ TAB PO SCH (09:21)
[2023-12-25 09:42] LABS: Anisocytosis 1+; Basophilic Stippling 1+; Blood Morphology Comment NOTED (NOT SEEN); Macrocytosis 2+; Platelet Estimate DECR; Platelets Clumped FEW; White Blood Cell Scan OK (OK)
--- NOTE | 2023-12-25 10:20 | P.PN ---
Subjective Date of Service: 12/25/23 Chief Complaint: ARDS severe pulmonary hypertension Patient is improving he still requiring high concentrations of oxygen otherwise eating and drinking Review of Systems General: Weakness Respiratory: Shortness of Breath Physical Examination - Vital Signs Temperature: 98.2 F Blood Pressure: 121/72 Pulse: 86 Respirations: 22 Pulse Ox (%): 100 - Physical Exam General: Alert, Oriented x3 Respiratory: Clear to auscultation bilaterally Cardiovascular: No edema, Regular rate/rhythm Other Physical/Emotional Findings: - Physical Exam. General: Morbidly obese, not acutely ill looking, in no apparent distress,. HEENT: Normocephalic, atraumatic,. Neck: Supple, without JVD or goiter or thyroid mass. Respiratory: No acute respite distress, clear to auscultation bilaterally, no crackles no wheezing or rhonchi. Cardiovascular: Distant heart sound. Gastrointestinal: Distended, decreased bowel sounds, no palpable mass. Musculoskeletal: No cyanosis, No peripheral edema. Integumentary: No rashes Assessment And Plan - Current Problems (Diagnosis) (1) ARDS (adult respiratory distress syndrome) Current Visit: Yes Status: Acute Plan: Patient has ARDS clinically stable still requiring high concentrations of oxygen reduce the dose of prednisone (2) Metabolic acidosis Current Visit: Yes Status: Acute Plan: Metabolic acidosis has resolved (3) Perianal abscess Current Visit: Yes Status: Acute Plan: Changed to p.o. Augmentin (4) Pulmonary HTN Current Visit: Yes Status: Acute Plan: Patient has severe pulmonary hypertension I suspect is secondary to diastolic dysfunction also add low-dose spironolactone patient is also hypokalemic CT pulmonary angio to rule out thromboembolism
[2023-12-25] MEDS: Magnesium Sulfate 2gm IVPB 2 G/50 ML BAG IV ONE (10:54)
[2023-12-25] MEDS: SPIRONOLACTONE 25 MG TABLET PO SCH (10:54)
[2023-12-25] MEDS: ALBUMIN HUMAN 25% 12.5 GM, FUROSEMIDE 100 MG in NA CHLORIDE 0.9% 40 ML IV SCH (10:54)
--- NOTE | 2023-12-25 12:38 | RAD REPORT ---
EXAM: CT Chest For Pe Angio TECHNIQUE: CT angiogram of the chest was performed following intravenous contrast administration, inc luding sagittal and coronal as well as maximum intensity projection reformats. One or more of the following dose reduction techniques were used: Automated exposure control, adjustment of the mA and k V according to patient size, and iterative reconstruction. Unless otherwise specified, incidental findings do not require dedicated imaging follow-up. INDICATION: HS MAIN RO PE Y COMPARISON: Same day chest radiograph. CT chest 12/18/2023. FINDINGS: LINES/TUBES: None. PULMONARY ARTERIES: Main pulmonary arteries are normal in caliber. No filling defects within the pul monary arteries to suggest pulmonary embolus. LUNGS AND AIRWAYS: Progressive interlobular septal thickening and scattered geographic central predom inant groundglass opacities. Less pronounced geographic alveolar opacification surrounding the fissures most notably on the right. PLEURA: No pneumothorax. Small layering bilateral pleural effusions more so on the right. HEART AND MEDIASTINUM: The visualized thyroid gland is normal. No mediastinal, hilar, or axillary lym phadenopathy. Heart is unremarkable. No pericardial effusion. SOFT TISSUES AND BONES: No acute osseous abnormality. No significant soft tissue finding. UPPER ABDOMEN: Sequelae of bariatric surgery. Mild fat stranding adjacent to the greater curvature an teriorly, nonspecific and may relate to mild gastritis. IMPRESSION: No evidence of acute central pulmonary emboli. Progressive interstitial and alveolar findings as above, with developing small bilateral effusions, s uggesting worsening pulmonary edema. Superimposed pneumonia would be difficult to exclude. Mild fat stranding along the greater curvature, may relate to ongoing gastritis.
--- NOTE | 2023-12-25 12:51 | P.PN ---
Nephrology Remains in the ICU, on/off BIPAP, diuresed with extra dose of IV lasix ordered by primary team and Spironolactone addition by pulm Vitals, medications, blood work and imaging reviewed in the chart General: In no apparent distress, but appears ill HEENT: Atraumatic, BIPAP mask Neck: Supple Respiratory: Non tachypnec, no wheezing Cardiovascular: No sig edema, mild tachy Gastrointestinal: Soft and benign, Non-distended Ext leonard present Musculoskeletal: No contractures Integumentary: No rashes Neurological: Awake, alert, conversive Laboratory Data (last 24 hrs) Reviewed in the EMR Conclusions/Impression: Stage I MIGUEL 2nd to hemodynamics, resp failure -resolved -Stable renal function currently but cont to monitor closely with diuretic escalation Hypokalemia -Will place on scheduled PO KCL, Spironolactone also ordered. Monitor mg levels Acute Hypoxic Respiratory Failure ARDS possibly -Management per pulm -TTE showed enlarged LA, diastolic dysfunction, pulm HTN unspecified. Target neg fluid balance although recorded output > 4L with additional diuretic doses ordered by other providers, did place on scheduled lower dose lasix. Agree with Spironolactone but lower BP may not allow for the ordered 50 mg dose, would lower Pyuria, bacteriuria, cystitis -Complete Abx course
[2023-12-25 18:07] LABS: Specific Gravity 1.013 (1.005-1.030); Urine Bilirubin NEGATIVE (Negative); Urine Blood Negative (Negative); Urine Clarity Clear (Clear); Urine Color Colorless (Yellow); Urine Glucose 3+ (Negative); Urine Ketones NEGATIVE (Negative); Urine Microscopic Reflex YN NO UMIC; Urine Nitrite NEGATIVE (Negative); Urine Protein NEGATIVE (Negative); Urine Urobilinogen Normal (Normal)
[2023-12-25] MEDS: AMOX/K CLAV 875 MG TAB PO SCH (20:30)
[2023-12-25] MEDS: predniSONE 20 MG TAB PO SCH (20:30)
[2023-12-26 05:33] LABS: Absolute Eosinophils 0.1 K/uL (0-0.5); Absolute Lymphocytes (CBC) 0.9 K/uL (0.7-4.9); Absolute Monocytes 1.2 K/uL (0.1-1.3); Absolute Neutrophil 16.4 K/uL (1.8-8.0); Basophils % 0.1 % (0-1.3); Eosinophils % 0.7 % (0-4.4); Hematocrit 21.4 % (39.6-49.0); Hemoglobin 7.1 g/dL (13.6-17.9); Lymphocytes % 4.8 % (15.3-44.8); MCH 35.6 pg (27.0-35.0); MCHC 33.1 g/dL (32.0-36.0); MCV 107.7 fL (80-100); MPV 9.8 fL (7.6-11.3); Monocytes % 6.2 % (3.3-12.3); Neutrophils % 88.2 % (41.7-73.7); Nucleated Red Blood Cells % 0.1 % (0-0); Platelets 117 thou/uL (152-406); RBC Red Blood Cell Count 1.99 M/uL (4.33-5.43); Red Cell Distribution Width 16.5 % (12.1-15.2)
[2023-12-26 05:52] LABS: Magnesium 1.7 mg/dL (1.6-2.4)
[2023-12-26] MEDS: POTASS/SODIUM PHOSPHATE 1 PKT POWD.PACK PO SCH (06:44)
[2023-12-26] MEDS: POTASSIUM CL SA 10 MEQ TAB PO ONE (06:45)
--- NOTE | 2023-12-26 07:08 | P.PN ---
Date of Service: 12/23/23 Subjective Patient is stable; however, Patient has not really shown a lot of improvement. Will continue with steroids and we try to diurese patient aggressively. Continue with managing patient at this time. Physical Examination - Vital Signs Reviewed - Physical Exam General: Alert, Other (Tachypneic and looks anxious laying in bed) Respiratory: Diminished, Crackles/rales, Expiratory wheezes Cardiovascular: Regular rate/rhythm, Normal S1 S2 Gastrointestinal: Normal bowel sounds, Hypoactive, Soft and benign, Non- distended Musculoskeletal: No clubbing, No contractures, No erythema Integumentary: Other (Multiple skin lesions throughout) Neurological: Other (No focal deficits) Assessment & Plan - Problems (Diagnosis) (1) Interstitial lung disease/ARDS Current Visit: Yes Status: Acute (2) Macrocytic anemia Current Visit: Yes Status: Acute (3) Metabolic acidosis Current Visit: Yes Status: Acute (4) Perianal abscess Current Visit: Yes Status: Acute (5) Acute worsening of stage 3 chronic kidney disease Current Visit: No Status: Acute (6) History of Rahul-en-Y gastric bypass Current Visit: No Status: Acute (7) Peripheral arterial disease Current Visit: No Status: Acute (8) DM type 2 (diabetes mellitus, type 2) Current Visit: No Status: Chronic - Plan Plan of care as mentioned below: 1. Patient looks like he has had some chronic lung changes. Abnormal CT scan findings of the chest in September and 2021. These have progressed over the last few months. Patient with appears to be some form of interstitial lung disease that has progressed into ARDS findings. Oxygenation is still very poor. Continues on antibiotics and steroids. Workup for other causes of interstitial lung disease at this time pending. If patient's pulmonary status improves he may benefit from bronchoscopy. Pulmonary following the patient and appreciate their assistance. 2. Patient with perianal abscess; status post I&D. Continue on antibiotic therapy. 3. Acute on chronic kidney disease; continue monitoring renal function which is stable 4. Anion gap metabolic acidosis; continue monitoring bicarb levels; respiratory status has slowly improved 5. History of diabetes type 2; strict blood sugar control 6. GI DVT prophylaxis - Advance Directives Does patient have a Living Will: No Does patient have a Durable POA for Healthcare: No - Code Status/Comfort Care Code Status: Full Code Critical care time spent on patient care was 30 minutes
--- NOTE | 2023-12-26 07:16 | P.PN ---
Date of Service: 12/26/23 Subjective Patient with 10L of UOP over the last 24-36hrs; no improvement with oxygenation. Pt remains on steroids. If continues to decline may need higher level of care. No signs of worsening or progression of infection. Physical Examination - Vital Signs Reviewed - Physical Exam General: Alert, Tachypneic and looks tired and anxious; Respiratory: Diminished, but otherwise clear Cardiovascular: Regular rate/rhythm, Normal S1 S2 Gastrointestinal: Normal bowel sounds, Hypoactive, Soft and benign, Non- distended Musculoskeletal: No clubbing, No contractures, No erythema Integumentary: Other (Multiple skin lesions throughout) Neurological: No focal deficits; generalized weakness Assessment & Plan - Problems (Diagnosis) (1) Interstitial lung disease/ARDS Current Visit: Yes Status: Acute (2) Macrocytic anemia Current Visit: Yes Status: Acute (3) Metabolic acidosis Current Visit: Yes Status: Acute (4) Perianal abscess Current Visit: Yes Status: Acute (5) Acute worsening of stage 3 chronic kidney disease Current Visit: Yes Status: Acute (6) History of Rahul-en-Y gastric bypass Current Visit: No Status: Chronic (7) Peripheral arterial disease Current Visit: No Status: Chronic (8) DM type 2 (diabetes mellitus, type 2) Current Visit: No Status: Chronic (9) Thrombocytopenia Current Visit: Yes Status: Acute - Plan Plan of care as mentioned below: 1. Patient respiratory status with no signifcant improvement despite 10L of UOP the last 24-36hrs; pt will continue with steroids and pulmnary consultation appreciated. Echo with severe pulmonary HTN and diastolic dysfunction. 2. Patient with perianal abscess; status post I&D. Continue on antibiotic therapy. stable; may repeat imaging to further evaluate 3. Acute on chronic kidney disease; continue monitoring renal function-stable even after 10L of UOP over the last 36hrs. 4. Anion gap metabolic acidosis-resolved; patient repeat blood gases pending but apparently ABG machine not working-will d/w [employer] supervisor 5. History of diabetes type 2; strict blood sugar control; remains stable. 6. Thrombocytopenia-? etiology; DC'd heparin and started eliquis 7. GI DVT prophylaxis - Advance Directives Does patient have a Living Will: No Does patient have a Durable POA for Healthcare: No - Code Status/Comfort Care Code Status: Full Code Critical care time spent on patient care was 30 minutes
--- NOTE | 2023-12-26 07:40 | P.PN ---
Date of Service: 12/25/23 Subjective Patient still no improvement; requiring increased oxygenation on high flow. Patient was on BIPAP overnight. Appreciate pulmonary assistance. Will give albumin and lasix drip; Continue with abx; CT chest pending Physical Examination - Vital Signs Reviewed - Physical Exam General: Alert, tachypneic and looks tired and anxious; Respiratory: Diminished, but otherwise clear Cardiovascular: Regular rate/rhythm, Normal S1 S2 Gastrointestinal: Normal bowel sounds, Hypoactive, Soft and benign, Non- distended Musculoskeletal: No clubbing, No contractures, No erythema Integumentary: Other (Multiple skin lesions throughout) Neurological: No focal deficits; generalized weakness Assessment & Plan - Problems (Diagnosis) (1) Interstitial lung disease/ARDS Current Visit: Yes Status: Acute (2) Macrocytic anemia Current Visit: Yes Status: Acute (3) Metabolic acidosis Current Visit: Yes Status: Acute (4) Perianal abscess Current Visit: Yes Status: Acute (5) Acute worsening of stage 3 chronic kidney disease Current Visit: Yes Status: Acute (6) History of Rahul-en-Y gastric bypass Current Visit: No Status: Chronic (7) Peripheral arterial disease Current Visit: No Status: Chronic (8) DM type 2 (diabetes mellitus, type 2) Current Visit: No Status: Chronic (9) Thrombocytopenia Current Visit: Yes Status: Acute - Plan Plan of care as mentioned below: 1. Patient respiratory status with no signifcant improvement pt will continue with steroids & diuretics. Pulmnary consultation appreciated. Echo with severe pulmonary HTN and diastolic dysfunction. 2. Patient with perianal abscess; status post I&D. Continue on antibiotic therapy. stable; may repeat imaging to further evaluate 3. Acute on chronic kidney disease; continue monitoring renal function-stable 4. 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 History of diabetes type 2; strict blood sugar control; remains stable. 6. Thrombocytopenia-? etiology; DC'd heparin and started eliquis; HIT Ab 7. GI DVT prophylaxis - Advance Directives Does patient have a Living Will: No Does patient have a Durable POA for Healthcare: No - Code Status/Comfort Care Code Status: Full Code Critical care time spent on patient care was 30 minutes
--- NOTE | 2023-12-26 07:44 | P.PN ---
Date of Service: 12/24/23 Subjective Patient with no clinical improvement-continue with diuresing and steroids; may need bronch once more stable. Elevated inflammatory markers Physical Examination - Vital Signs Reviewed - Physical Exam General: Alert, tachypneic otherwise no distress Respiratory: Diminished, but otherwise clear Cardiovascular: Regular rate/rhythm, Normal S1 S2 Gastrointestinal: Normal bowel sounds, Hypoactive, Soft and benign, Non- distended Musculoskeletal: No clubbing, No contractures, No erythema Integumentary: Other (Multiple skin lesions throughout) Neurological: No focal deficits; generalized weakness Assessment & Plan - Problems (Diagnosis) (1) Interstitial lung disease/ARDS Current Visit: Yes Status: Acute (2) Macrocytic anemia Current Visit: Yes Status: Acute (3) Metabolic acidosis Current Visit: Yes Status: Acute (4) Perianal abscess Current Visit: Yes Status: Acute (5) Acute worsening of stage 3 chronic kidney disease Current Visit: Yes Status: Acute (6) History of Rahul-en-Y gastric bypass Current Visit: No Status: Chronic (7) Peripheral arterial disease Current Visit: No Status: Chronic (8) DM type 2 (diabetes mellitus, type 2) Current Visit: No Status: Chronic (9) Thrombocytopenia Current Visit: Yes Status: Acute - Plan Plan of care as mentioned below: 1. Patient respiratory status stable; slight improvement and weaned FiO2 on high flow to 70%. Continue to try to wean down. 2. Patient with perianal abscess; status post I&D. Continue on antibiotic therapy. stable; appreciate surgery eval 3. Acute on chronic kidney disease; continue monitoring renal function closely; appreciate nephrology input 4. Anion gap metabolic acidosis-resolved; 5. History of diabetes type 2; strict blood sugar control; remains stable. 6. Thrombocytopenia-? etiology; will monitor 7. GI DVT prophylaxis - Advance Directives Does patient have a Living Will: No Does patient have a Durable POA for Healthcare: No - Code Status/Comfort Care Code Status: Full Code Critical care time spent on patient care was 30 minutes
--- NOTE | 2023-12-26 08:42 | RAD REPORT ---
Procedure: Chest Single View HISTORY: Chest pain COMPARISON: December 25, 2023 FINDINGS: No significant change in extensive bilateral pulmonary opacities Small bilateral pleural effusions The heart is enlarged. PICC line in place IMPRESSION: No change in extensive bilateral pulmonary opacities
[2023-12-26] MEDS: FUROSEMIDE 20 MG TABLET PO SCH (09:05)
[2023-12-26] MEDS: SPIRONOLACTONE 25 MG TABLET PO SCH (09:06)
[2023-12-26] MEDS: MAGNESIUM SULFATE 1 gm IVPB 1 GM/100 ML BAG IV ONE ×2 (09:07→14:38)
[2023-12-26] MEDS: POTASSIUM PHOS 30 MM in NA CHLORIDE 0.9% 500 ML IV ONE (09:08)
--- NOTE | 2023-12-26 13:55 | P.PN ---
Nephrology Remains in the ICU, on/off BIPAP, diuresed heavily over the past 48h without radiographic improvement noted on imaging, O2 sats on monitor remains in the upper 80-low 90s, BP lower/soft with diuresis, cont to get electrolyte repletion Vitals, medications, blood work and imaging reviewed in the chart General: In no apparent distress, but appears ill HEENT: Atraumatic, off BIPAP mask and on HFNC Neck: Supple Respiratory: Mildly tachypnec, no wheezing Cardiovascular: No sig edema, mild tachy Gastrointestinal: Soft and benign, Non-distended Ext leonard present Musculoskeletal: No contractures Integumentary: No rashes Neurological: Awake, alert, conversive Laboratory Data (last 24 hrs) Reviewed in the EMR Conclusions/Impression: Stage I MIGUEL 2nd to hemodynamics, resp failure -resolved -Stable renal function currently but cont to monitor closely with diuretic escalation and softer BP Hypokalemia -Cont to replete, Spironolactone also ordered by Pulm. Monitor mg levels, replete Acute Hypoxic Respiratory Failure ARDS pattern -Serologic w/u neg -Management per pulm -TTE showed enlarged LA, diastolic dysfunction, pulm HTN unspecified. Target neg fluid balance although recorded output > 10L over 48h with additional diuretic doses ordered by other providers, so would be cautious to not over diurese as there has not been any radiographic or clinical change with diuresis alone Pyuria, bacteriuria, cystitis -Complete Abx course
[2023-12-27 00:35] LABS: Aldolase 10.8 U/L (<=8.1)
[2023-12-27 05:54] LABS: Absolute Eosinophils 0.3 K/uL (0-0.5); Absolute Lymphocytes (CBC) 0.9 K/uL (0.7-4.9); Absolute Monocytes 1.2 K/uL (0.1-1.3); Absolute Neutrophil 19.6 K/uL (1.8-8.0); Basophils % 0.2 % (0-1.3); Eosinophils % 1.1 % (0-4.4); Hematocrit 24.3 % (39.6-49.0); Hemoglobin 7.7 g/dL (13.6-17.9); Lymphocytes % 3.9 % (15.3-44.8); MCH 35.2 pg (27.0-35.0); MCHC 31.9 g/dL (32.0-36.0); MCV 110.5 fL (80-100); MPV 10.1 fL (7.6-11.3); Monocytes % 5.3 % (3.3-12.3); Neutrophils % 89.5 % (41.7-73.7); Platelets 129 thou/uL (152-406)
[2023-12-27 06:05] LABS: Magnesium 2.1 mg/dL (1.6-2.4); Phosphorus 2.9 mg/dL (2.5-4.9)
[2023-12-27 08:40] LABS: Anisocytosis 1+; Blood Morphology Comment NOTED (NOT SEEN); Hypochromasia 1+; Macrocytosis 2+; Platelet Estimate DECR; White Blood Cell Scan OK (OK)
[2023-12-27 08:41] LABS: Basophilic Stippling 1+; Ovalocytes 1+; Polychromasia 1+
[2023-12-27] MEDS: APIXABAN 2.5 MG TABLET PO SCH (09:54)
--- NOTE | 2023-12-27 12:18 | P.PN ---
Subjective Date of Service: 12/27/23 Chief Complaint: ARDS severe pulmonary hypertension Patient has ARDS requiring high concentrations of oxygen and significant negative fluid balance Review of Systems General: Weakness Respiratory: Shortness of Breath Physical Examination - Vital Signs Temperature: 97.2 F Blood Pressure: 97/56 Pulse: 78 Respirations: 23 Pulse Ox (%): 96 - Physical Exam General: Alert, Oriented x3, Mild distress Respiratory: Clear to auscultation bilaterally, Diminished Cardiovascular: No edema, Regular rate/rhythm Other Physical/Emotional Findings: - Physical Exam. General: Morbidly obese, not acutely ill looking, in no apparent distress,. HEENT: Normocephalic, atraumatic,. Neck: Supple, without JVD or goiter or thyroid mass. Respiratory: No acute respite distress, clear to auscultation bilaterally, no crackles no wheezing or rhonchi. Cardiovascular: Distant heart sound. Gastrointestinal: Distended, decreased bowel sounds, no palpable mass. Musculoskeletal: No cyanosis, No peripheral edema. Integumentary: No rashes Assessment And Plan - Current Problems (Diagnosis) (1) ARDS (adult respiratory distress syndrome) Current Visit: Yes Status: Acute Plan: Patient has ARDS new with low-dose steroids and may have negative fluid balance patient is on spironolactone I have increased his EPAP to 10 titrate sat to 90% Dobbhoff try a nasal tube feed possible transfer to an LTAC facility (2) Perianal abscess Current Visit: Yes Status: Acute Plan: Changed to p.o. Augmentin (3) Pulmonary HTN Current Visit: Yes Status: Acute Plan: Patient has severe pulmonary hypertension I suspect is secondary to diastolic dysfunction also add low-dose spironolactone patient is also hypokalemic CT pulmonary angio to rule out thromboembolism - Plan Patient has severe pulmonary hypertension I suspect is secondary to diastolic failure
[2023-12-27] MEDS: clonazePAM 0.5 MG TAB PO PRN (13:10)
[2023-12-27 13:41] LABS: Anti-Nuclear Antibody Screen Negative (Negative)
--- NOTE | 2023-12-27 16:29 | RAD REPORT ---
EXAMINATION: ONE VIEW CHEST XR CLINICAL INDICATION: Hypoxia, respiratory failure TECHNIQUE: Frontal chest projection is submitted. Examination is limited by patient positioning and t echnique. COMPARISON: 12/26/2023 FINDINGS: Moderate bilateral pulmonary opacities have mildly improved since comparison study. The heart is uppe r limit of normal in size. Left PICC line is tip in SVC. IMPRESSION: Mild improvement in lung aeration seen since comparison study.
--- NOTE | 2023-12-27 21:56 | P.PN ---
Date of Service: 12/27/23 Vital Signs Temp Pulse Resp BP Pulse Ox 98 F 98 H 37 H 102/56 L 89 L 12/27/23 16:00 12/27/23 18:00 12/27/23 18:00 12/27/23 18:00 12/27/23 18:00 Medications Acetaminophen (Acetaminophen 325 Mg Tablet) 650 mg PO Q4HP PRN PRN Reason: Pain scale 2-4 (Mild) Hydrocodone Bitart/Acetaminophen (Hydrocodone/Apap 5/325 Mg Tab) 1 tab PO Q4H PRN PRN Reason: Pain scale 5-7 (Moderate) Last Admin: 12/27/23 17:47 Dose: 1 tab Amoxicillin/Clavulanate Potassium (Amox/K Clav 875 Mg Tab) 875 mg PO BID [facility]; Protocol Last Admin: 12/27/23 20:44 Dose: 875 mg Apixaban (Apixaban 2.5 Mg Tablet) 2.5 mg PO BID [facility] Last Admin: 12/27/23 20:44 Dose: 2.5 mg Clonazepam (Clonazepam 0.5 Mg Tab) 0.5 mg PO BID PRN PRN Reason: ANXIETY Last Admin: 12/27/23 20:42 Dose: 0.5 mg Cyclobenzaprine HCl (Cyclobenzaprine 10 Mg Tab) 10 mg PO TID PRN PRN Reason: MUSCLE SPASMS Last Admin: 12/27/23 20:43 Dose: 10 mg Doxepin HCl (Doxepin Hcl 25 Mg Cap) 75 mg PO BEDTIME [facility] Last Admin: 12/27/23 20:44 Dose: 75 mg Enteral Nutritional Formula (Glucerna Shake 237 Ml Can) 237 ml PO BID [facility] Last Admin: 12/27/23 20:48 Dose: 237 ml Fluoxetine HCl (Fluoxetine 20 Mg Cap) 40 mg PO DAILY [facility] Last Admin: 12/27/23 09:53 Dose: 40 mg Furosemide (Furosemide 20 Mg Tablet) 40 mg PO DAILY [facility] Last Admin: 12/27/23 07:12 Dose: Not Given Gabapentin (Gabapentin 300 Mg Cap) 600 mg PO TID [facility] Last Admin: 12/27/23 20:44 Dose: 600 mg Glucagon (Glucagon 1 Mg/Vial) 1 mg IM 1X PRN PRN Reason: HYPOGLYCEMIA Dextrose (Dextrose 10% Water Iv Soln.) 125 mls @ 0 mls/hr IV PRN PRN; Protocol PRN Reason: HYPOGLYCEMIA Insulin Glargine (Insulin Glargine 100 Unit/Ml) 10 unit SQ DAILY [facility] Last Admin: 12/27/23 09:54 Dose: 10 unit Insulin Human Regular (Insulin Regular (Human) 100 Unit/Ml) 0 unit SQ Q6HR [facility]; Protocol Last Admin: 12/27/23 17:48 Dose: 2 unit Morphine Sulfate (Morphine 2 Mg/Ml Syr) 2 mg IV Q4H PRN PRN Reason: Pain scale 8-10 (Severe) Last Admin: 12/27/23 12:30 Dose: 2 mg Ondansetron HCl (Ondansetron 4 Mg/2 Ml Vial) 4 mg IV Q6HP PRN PRN Reason: NAUSEA / VOMITING Potassium Chloride (Potassium Cl Sa 10 Meq Tab) 20 meq PO DAILY [facility] Last Admin: 12/27/23 09:53 Dose: 20 meq Prednisone (Prednisone 20 Mg Tab) 10 mg PO BID [facility] Last Admin: 12/27/23 20:43 Dose: 10 mg Spironolactone (Spironolactone 25 Mg Tablet) 25 mg PO DAILY [facility] Last Admin: 12/27/23 07:11 Dose: Not Given Microbiology Results 12/18/23 21:53 Blood - Blood Aerobic Blood Culture - Final No growth in 5 days. 12/18/23 21:53 Blood - Blood Anaerobic Blood Culture - Final No growth in 5 days. 12/18/23 21:53 Blood - Blood Aerobic Blood Culture - Final No growth in 5 days. 12/18/23 21:53 Blood - Blood Anaerobic Blood Culture - Final No growth in 5 days. Assessment/ Plan: Nephrology Dyspnea on bipap No chest pain No acute events overnight Vitals, medications, blood work and imaging reviewed in the chart General: In no apparent distress, Oriented x3, Cooperative HEENT: Atraumatic Neck: Supple Respiratory: Normal air movement Cardiovascular: No edema, Regular rate/rhythm Gastrointestinal: Soft and benign, Non-distended Musculoskeletal: No clubbing, No contractures Integumentary: No rashes, No cyanosis Neurological: Normal speech Laboratory Data (last 24 hrs) 12/18/23 12/18/23 21:56 18:53 WBC 22.70 H Hgb 8.8 L Hct 27.3 L Plt Count 288 PT 15.1 H INR 1.36 APTT 34.6 Imagings Data: EXAMINATION: ONE VIEW CHEST XR CLINICAL INDICATION: Male, 48 years old.,PICC line TECHNIQUE: Frontal chest projection is submitted. Examination is limited by patient positioning and technique. COMPARISON: Chest radiograph of earlier the same day FINDINGS: Partial improvement of central interstitial prominence. Stable to mildly improved fluffy central predominant opacities. Left arm PICC has been placed with tip at the level of the distal SVC. No pneumothorax or sizable effusion. The heart is normal in size. Mediastinal contours are unremarkable. IMPRESSION: Satisfactory positioning of left arm PICC. Changes of pulmonary edema, partially improved. EXAMINATION: ONE VIEW CHEST XR CLINICAL INDICATION: Male, 48 years old.,sob TECHNIQUE: Frontal chest projection is submitted. Examination is limited by patient positioning and technique. COMPARISON: 12/18/2023 FINDINGS: Central interstitial prominence and confluent bilateral central predominant fluffy opacities, progressive. No pneumothorax or sizable effusion. The heart is normal in size. Mediastinal contours are unremarkable. IMPRESSION: Progressive central interstitial prominence and airspace opacities, most concerning for pulmonary edema. EXAMINATION: ONE VIEW CHEST XR CLINICAL INDICATION: Male, 48 years old.SOB TECHNIQUE: 1 View, AP supine, X-ray of the chest was performed. [id number]. COMPARISON: Chest radiograph 11/10/2023, chest CT 09/12/2023 FINDINGS: Lungs and pleura: Ill-defined bilateral airspace disease which has progressed since 11/10/2023. No effusion. Heart and mediastinum: Normal heart size. Unremarkable mediastinal contours. Osseous structures: No acute abnormality. Tubes/lines: None Other: None. IMPRESSION: Increased ill-defined irregular bilateral airspace disease which could reflect multifocal pneumonia. EXAM: CT CHEST, ABDOMEN AND PELVIS WITHOUT CONTRAST CLINICAL INDICATION: Male, 48 years old Abd pain;Rectal drainage;SOB TECHNIQUE: CT chest, abdomen and pelvis was performed, without IV contrast, as per department protocol. Axial, sagittal and coronal reconstructions were obtained. One or more of the following dose reduction techniques were used: Automated exposure control, adjustment of the mA and/or kV according to the patient size, and/or iterative reconstruction. Unless otherwise specified, incidental findings do not require dedicated imaging follow-up. [id number]. COMPARISON: 09/12/2023, 08/15/2023 FINDINGS: The lack of intravenous contrast limits the sensitivity of this exam for evaluation of solid visceral organs, vascular structures, and retroperitoneum. Chest: LOWER NECK/CHEST WALL: Visualized thyroid gland and soft tissues are normal. LUNGS AND AIRWAYS: Worsened multifocal nodular and groundglass opacities, previously mainly in the left lung and now diffuse. PLEURA: No pleural effusion. No pneumothorax. Hemidiaphragms are normally positioned. MEDIASTINUM AND LYMPH NODES: Dense material in the distal esophagus could be from a prior study with oral contrast. THORACIC AORTA: Normal caliber and configuration. PULMONARY ARTERIES: Normal caliber. HEART: Trace pericardial effusion. Coronary artery calcifications which are mild. Abdomen/Pelvis LIVER: Normal in size and contour. No focal lesion. GALLBLADDER/BILE DUCTS: Cholecystectomy PANCREAS: Pancreatic atrophy. SPLEEN: Normal size. No focal lesion. ADRENALS: Normal; no mass. KIDNEYS AND URETERS: Punctate stone in the right kidney. No hydronephrosis. GASTROINTESTINAL TRACT: Rahul-en-Y gastric bypass. Moderate stool in the colon. No bowel obstruction. PERITONEUM: No free fluid. LYMPH NODES: No lymphadenopathy. ABDOMINAL AORTA AND OTHER VESSELS: Normal caliber aorta and IVC. URINARY BLADDER: Normal contour. REPRODUCTIVE ORGANS: No pathologic process. MUSCULOSKELETAL: No acute or suspicious osseous abnormality. Healed remote left 11th rib fracture. Remote T11 compression fracture. ADDITIONAL FINDINGS: Gas and fluid containing collection in the right medial gluteal fold and perianal region measuring approximately 4.2 x 4.9 cm x 2 cm. IMPRESSION: 1. Perianal abscess with or without fistula. 2. Worsened bilateral airspace disease compared with 09/12/2023. The appearance is most consistent with infection or inflammation but the differential is broader as the findings are progressive and chronic. 3. Dense fluid in the distal esophagus is presumably recently ingested oral contrast. This may be from an outside facility. Oral contrast is seen distally within the bowel. Retention of contrast in the esophagus could be from reflux or possible a stricture. Chronic aspiration could conceivably explain the progressive lung findings. Conclusions/Impression: Stage I MIGUEL in the setting of hypotension CKD II with Proteinuria -No NSAIDs Hypokalemia -Replete prn Hypomagnesemia -Replete prn Hypophosphatemia -Replete as ordered Acute Hypoxic Respiratory Failure ARDS -Continue Oxygen supplementation -Continue Steroids -Pulmonary following Hypotension -Albumin prn -Vasopressor prn Diastolic CHF, A/C Pulmonary HTN Peripheral Edema/ Pulmonary Edema -Continue Furosemide and Spironolactone Hypoalbuminemia -Recommend protein supplementation Anemia in chronic illness Macrocytosis -Monitor H&H -PRBC prn PeriAnal Abscess -Continue Abx -Follow up with surgery Acute Infective Cystitis with Hematuria -Continue Abx Hospitalist and Pulmonary notes reviewed Patient care 35min
[2023-12-28 04:57] LABS: Anion Gap 7.2 mEq/L (5.0-15.0); Phosphorus 2.4 mg/dL (2.5-4.9); Potassium 4.2 mEq/L (3.5-5.1)
[2023-12-28] MEDS: SODIUM PHOSPHATE 15 MM in NA CHLORIDE 0.9% 250 ML IV ONE ×2 (07:00→08:27)
[2023-12-28] MEDS: Meropenem 1,000 MG in NA CHLORIDE 0.9% 100 ML IV SCH (15:00)
[2023-12-28] MEDS ORDERED: predniSONE 10 MG TAB PO SCH (21:00)
--- NOTE | 2023-12-28 21:12 | P.PN ---
Date of Service: 12/28/23 Vital Signs Temp Pulse Resp BP Pulse Ox 97.1 F 89 23 H 116/64 96 12/28/23 16:05 12/28/23 18:00 12/28/23 20:09 12/28/23 18:00 12/28/23 20:09 Medications Acetaminophen (Acetaminophen 325 Mg Tablet) 650 mg PO Q4HP PRN PRN Reason: Pain scale 2-4 (Mild) Hydrocodone Bitart/Acetaminophen (Hydrocodone/Apap 5/325 Mg Tab) 1 tab PO Q4H PRN PRN Reason: Pain scale 5-7 (Moderate) Last Admin: 12/28/23 20:09 Dose: 1 tab Amoxicillin/Clavulanate Potassium (Amox/K Clav 875 Mg Tab) 875 mg PO BID [facility]; Protocol Last Admin: 12/28/23 20:10 Dose: 875 mg Apixaban (Apixaban 2.5 Mg Tablet) 2.5 mg PO BID [facility] Last Admin: 12/28/23 20:10 Dose: 2.5 mg Clonazepam (Clonazepam 0.5 Mg Tab) 0.5 mg PO BID PRN PRN Reason: ANXIETY Last Admin: 12/28/23 19:53 Dose: 0.5 mg Cyclobenzaprine HCl (Cyclobenzaprine 10 Mg Tab) 10 mg PO TID PRN PRN Reason: MUSCLE SPASMS Last Admin: 12/28/23 20:09 Dose: 10 mg Doxepin HCl (Doxepin Hcl 25 Mg Cap) 75 mg PO BEDTIME [facility] Last Admin: 12/28/23 20:10 Dose: 75 mg Enteral Nutritional Formula (Glucerna Shake 237 Ml Can) 237 ml PO BID [facility] Last Admin: 12/28/23 20:11 Dose: 237 ml Fluoxetine HCl (Fluoxetine 20 Mg Cap) 40 mg PO DAILY [facility] Last Admin: 12/27/23 09:53 Dose: 40 mg Furosemide (Furosemide 20 Mg Tablet) 40 mg PO DAILY [facility] Last Admin: 12/28/23 08:32 Dose: Not Given Gabapentin (Gabapentin 300 Mg Cap) 600 mg PO TID [facility] Last Admin: 12/28/23 20:09 Dose: 600 mg Glucagon (Glucagon 1 Mg/Vial) 1 mg IM 1X PRN PRN Reason: HYPOGLYCEMIA Dextrose (Dextrose 10% Water Iv Soln.) 125 mls @ 0 mls/hr IV PRN PRN; Protocol PRN Reason: HYPOGLYCEMIA Meropenem 1,000 mg/ Sodium (Chloride) 100 mls @ 200 mls/hr IV Q8H [facility] Last Admin: 12/28/23 15:00 Dose: 100 mls Insulin Glargine (Insulin Glargine 100 Unit/Ml) 10 unit SQ DAILY [facility] Last Admin: 12/28/23 08:31 Dose: 10 unit Insulin Human Regular (Insulin Regular (Human) 100 Unit/Ml) 0 unit SQ Q6HR [facility]; Protocol Last Admin: 12/28/23 18:00 Dose: Not Given Morphine Sulfate (Morphine 2 Mg/Ml Syr) 2 mg IV Q4H PRN PRN Reason: Pain scale 8-10 (Severe) Last Admin: 12/28/23 17:34 Dose: 2 mg Ondansetron HCl (Ondansetron 4 Mg/2 Ml Vial) 4 mg IV Q6HP PRN PRN Reason: NAUSEA / VOMITING Potassium Chloride (Potassium Cl Sa 10 Meq Tab) 20 meq PO DAILY [facility] Last Admin: 12/28/23 08:31 Dose: 20 meq Spironolactone (Spironolactone 25 Mg Tablet) 25 mg PO DAILY [facility] Last Admin: 12/28/23 08:32 Dose: Not Given Microbiology Results 12/18/23 21:53 Blood - Blood Aerobic Blood Culture - Final No growth in 5 days. 12/18/23 21:53 Blood - Blood Anaerobic Blood Culture - Final No growth in 5 days. 12/18/23 21:53 Blood - Blood Aerobic Blood Culture - Final No growth in 5 days. 12/18/23 21:53 Blood - Blood Anaerobic Blood Culture - Final No growth in 5 days. Assessment/ Plan: Nephrology Dyspnea on bipap No chest pain No acute events overnight Vitals, medications, blood work and imaging reviewed in the chart General: In no apparent distress, Oriented x3, Cooperative HEENT: Atraumatic Neck: Supple Respiratory: Normal air movement Cardiovascular: No edema, Regular rate/rhythm Gastrointestinal: Soft and benign, Non-distended Musculoskeletal: No clubbing, No contractures Integumentary: No rashes, No cyanosis Neurological: Normal speech Laboratory Data (last 24 hrs) 12/18/23 12/18/23 21:56 18:53 WBC 22.70 H Hgb 8.8 L Hct 27.3 L Plt Count 288 PT 15.1 H INR 1.36 APTT 34.6 Imagings Data: EXAMINATION: ONE VIEW CHEST XR CLINICAL INDICATION: Male, 48 years old.,PICC line TECHNIQUE: Frontal chest projection is submitted. Examination is limited by patient positioning and technique. COMPARISON: Chest radiograph of earlier the same day FINDINGS: Partial improvement of central interstitial prominence. Stable to mildly improved fluffy central predominant opacities. Left arm PICC has been placed with tip at the level of the distal SVC. No pneumothorax or sizable effusion. The heart is normal in size. Mediastinal contours are unremarkable. IMPRESSION: Satisfactory positioning of left arm PICC. Changes of pulmonary edema, partially improved. EXAMINATION: ONE VIEW CHEST XR CLINICAL INDICATION: Male, 48 years old.,sob TECHNIQUE: Frontal chest projection is submitted. Examination is limited by patient positioning and technique. COMPARISON: 12/18/2023 FINDINGS: Central interstitial prominence and confluent bilateral central predominant fluffy opacities, progressive. No pneumothorax or sizable effusion. The heart is normal in size. Mediastinal contours are unremarkable. IMPRESSION: Progressive central interstitial prominence and airspace opacities, most concerning for pulmonary edema. EXAMINATION: ONE VIEW CHEST XR CLINICAL INDICATION: Male, 48 years old.SOB TECHNIQUE: 1 View, AP supine, X-ray of the chest was performed. [id number]. COMPARISON: Chest radiograph 11/10/2023, chest CT 09/12/2023 FINDINGS: Lungs and pleura: Ill-defined bilateral airspace disease which has progressed since 11/10/2023. No effusion. Heart and mediastinum: Normal heart size. Unremarkable mediastinal contours. Osseous structures: No acute abnormality. Tubes/lines: None Other: None. IMPRESSION: Increased ill-defined irregular bilateral airspace disease which could reflect multifocal pneumonia. EXAM: CT CHEST, ABDOMEN AND PELVIS WITHOUT CONTRAST CLINICAL INDICATION: Male, 48 years old Abd pain;Rectal drainage;SOB TECHNIQUE: CT chest, abdomen and pelvis was performed, without IV contrast, as per department protocol. Axial, sagittal and coronal reconstructions were obtained. One or more of the following dose reduction techniques were used: Automated exposure control, adjustment of the mA and/or kV according to the patient size, and/or iterative reconstruction. Unless otherwise specified, incidental findings do not require dedicated imaging follow-up. [id number]. COMPARISON: 09/12/2023, 08/15/2023 FINDINGS: The lack of intravenous contrast limits the sensitivity of this exam for evaluation of solid visceral organs, vascular structures, and retroperitoneum. Chest: LOWER NECK/CHEST WALL: Visualized thyroid gland and soft tissues are normal. LUNGS AND AIRWAYS: Worsened multifocal nodular and groundglass opacities, previously mainly in the left lung and now diffuse. PLEURA: No pleural effusion. No pneumothorax. Hemidiaphragms are normally po sitioned. MEDIASTINUM AND LYMPH NODES: Dense material in the distal esophagus could be from a prior study with oral contrast. THORACIC AORTA: Normal caliber and configuration. PULMONARY ARTERIES: Normal caliber. HEART: Trace pericardial effusion. Coronary artery calcifications which are mild. Abdomen/Pelvis LIVER: Normal in size and contour. No focal lesion. GALLBLADDER/BILE DUCTS: Cholecystectomy PANCREAS: Pancreatic atrophy. SPLEEN: Normal size. No focal lesion. ADRENALS: Normal; no mass. KIDNEYS AND URETERS: Punctate stone in the right kidney. No hydronephrosis. GASTROINTESTINAL TRACT: Rahul-en-Y gastric bypass. Moderate stool in the colon. No bowel obstruction. PERITONEUM: No free fluid. LYMPH NODES: No lymphadenopathy. ABDOMINAL AORTA AND OTHER VESSELS: Normal caliber aorta and IVC. URINARY BLADDER: Normal contour. REPRODUCTIVE ORGANS: No pathologic process. MUSCULOSKELETAL: No acute or suspicious osseous abnormality. Healed remote left 11th rib fracture. Remote T11 compression fracture. ADDITIONAL FINDINGS: Gas and fluid containing collection in the right medial gluteal fold and perianal region measuring approximately 4.2 x 4.9 cm x 2 cm. IMPRESSION: 1. Perianal abscess with or without fistula. 2. Worsened bilateral airspace disease compared with 09/12/2023. The appearance is most consistent with infection or inflammation but the differential is broader as the findings are progressive and chronic. 3. Dense fluid in the distal esophagus is presumably recently ingested oral contrast. This may be from an outside facility. Oral contrast is seen distally within the bowel. Retention of contrast in the esophagus could be from reflux or possible a stricture. Chronic aspiration could conceivably explain the progressive lung findings. Conclusions/Impression: Stage I MIGUEL in the setting of hypotension CKD II with Proteinuria -No NSAIDs Hypokalemia -Replete prn Hypomagnesemia -Replete prn Hypophosphatemia -Replete as ordered Acute Hypoxic Respiratory Failure ARDS -Continue Oxygen supplementation -Continue Steroids -Pulmonary following Hypotension -Albumin prn -Vasopressor prn Diastolic CHF, A/C Pulmonary HTN Peripheral Edema/ Pulmonary Edema -Continue Furosemide and Spironolactone Hypoalbuminemia -Recommend protein supplementation Anemia in chronic illness Macrocytosis -Monitor H&H -PRBC prn PeriAnal Abscess -Continue Abx -Follow up with surgery Acute Infective Cystitis with Hematuria -Continue Abx Hospitalist and Pulmonary notes reviewed Case reviewed with Dr. Boss Patient care 35min
--- NOTE | 2023-12-29 05:03 | P.PN ---
Date of Service: 12/28/23 Subjective Patient still not significantly improved. Remains on BiPAP support. Continue with steroids and diuretics. Patient's condition has not improved. In order for patient to transfer most likely will need to be intubated but patient is refusing to be intubated at this time. Physical Examination - Vital Signs Reviewed - Physical Exam General: Alert, tachypneic; looks tired and anxious; Respiratory: Diminished, but otherwise clear Cardiovascular: Regular rate/rhythm, Normal S1 S2 Gastrointestinal: Normal bowel sounds, Hypoactive, Soft and benign, Non- distended Musculoskeletal: No clubbing, No contractures, No erythema Integumentary: Multiple skin lesions throughout Neurological: No focal deficits; generalized weakness Assessment & Plan - Problems (Diagnosis) (1) Interstitial lung disease/ARDS; Current Visit: Yes Status: Acute (2) Macrocytic anemia Current Visit: Yes Status: Acute (3) Metabolic acidosis Current Visit: Yes Status: Acute (4) Perianal abscess; wound cultures positive for Enterococcus and Citrobacter Current Visit: Yes Status: Acute (5) Acute worsening of stage 3 chronic kidney disease Current Visit: Yes Status: Acute (6) History of Rahul-en-Y gastric bypass Current Visit: No Status: Chronic (7) Peripheral arterial disease Current Visit: No Status: Chronic (8) DM type 2 (diabetes mellitus, type 2) Current Visit: No Status: Chronic (9) Thrombocytopenia Current Visit: Yes Status: Acute - Plan Plan of care as mentioned below: 1. Patient respiratory status with no signifcant improvement pt will continue with steroids & diuretics. Pulmnary consultation appreciated. Echo with severe pulmonary HTN and diastolic dysfunction. Clinical condition is not really improving. Patient remains on BiPAP. 2. Patient with perianal abscess; status post I&D. Continue on antibiotic therapy. stable; may repeat imaging to further evaluate; on meropenem 3. Acute on chronic kidney disease; continue monitoring renal function-stable 4. Anion gap metabolic acidosis-resolved; patient repeat blood gases pending but apparently ABG machine not working-will d/w supervisor dental laboratory 5. History of diabetes type 2; strict blood sugar control; remains stable. 6. Thrombocytopenia-? etiology; DC'd heparin and started eliquis; HIT Ab pending; Improving slowly 7. Leukocytosis; continue antibiotics. 8. GI DVT prophylaxis - Advance Directives Does patient have a Living Will: No Does patient have a Durable POA for Healthcare: No - Code Status/Comfort Care Code Status: Full Code Critical care time spent on patient care was 30 minutes
--- NOTE | 2023-12-29 05:05 | P.PN ---
Date of Service: 12/27/23 Subjective Today we had a long discussion with the patient regarding his prognosis. He contemplated being intubated but after talking with his family he wanted to hold off. He does understand that he may not be able to get transferred unless he gets on mechanical ventilation.Discussed with patient's brother and his as well. Physical Examination - Vital Signs Reviewed - Physical Exam General: Alert, tachypneic; looks tired and anxious; Respiratory: Diminished, but otherwise clear Cardiovascular: Regular rate/rhythm, Normal S1 S2 Gastrointestinal: Normal bowel sounds, Hypoactive, Soft and benign, Non- distended Musculoskeletal: No clubbing, No contractures, No erythema Integumentary: Multiple skin lesions throughout Neurological: No focal deficits; generalized weakness Assessment & Plan - Problems (Diagnosis) (1) Interstitial lung disease/ARDS; Current Visit: Yes Status: Acute (2) Macrocytic anemia Current Visit: Yes Status: Acute (3) Metabolic acidosis Current Visit: Yes Status: Acute (4) Perianal abscess; wound cultures positive for Enterococcus and Citrobacter Current Visit: Yes Status: Acute (5) Acute worsening of stage 3 chronic kidney disease Current Visit: Yes Status: Acute (6) History of Rahul-en-Y gastric bypass Current Visit: No Status: Chronic (7) Peripheral arterial disease Current Visit: No Status: Chronic (8) DM type 2 (diabetes mellitus, type 2) Current Visit: No Status: Chronic (9) Thrombocytopenia Current Visit: Yes Status: Acute - Plan At this time, we will continue plan of care as mentioned below: 1. Patient respiratory status with no signifcant improvement pt will continue with steroids & diuretics. Pulmnary consultation appreciated. Echo with severe pulmonary HTN and diastolic dysfunction. Clinical condition is not really improving. Patient remains on BiPAP. 2. Patient with perianal abscess; status post I&D. Continue on antibiotic therapy. stable; may repeat imaging to further evaluate; on meropenem; repeat surgery on hold 3. Acute on chronic kidney disease; continue monitoring renal function-stable 4. Anion gap metabolic acidosis-resolved; patient repeat blood gases pending but apparently ABG machine not working-will d/w supervisor wash house 5. History of diabetes type 2; strict blood sugar control; remains stable. 6. Thrombocytopenia-? etiology; DC'd heparin and started eliquis; HIT Ab pending; Improving slowly 7. Leukocytosis; continue antibiotics. 8. GI DVT prophylaxis - Advance Directives Does patient have a Living Will: No Does patient have a Durable POA for Healthcare: No - Code Status/Comfort Care Code Status: Full Code Critical care time spent on patient care was 30 minutes
[2023-12-29 05:49] LABS: Absolute Eosinophils 0.4 K/uL (0-0.5); Absolute Lymphocytes (CBC) 1.4 K/uL (0.7-4.9); Absolute Monocytes 1.5 K/uL (0.1-1.3); Absolute Neutrophil 20.8 K/uL (1.8-8.0); Basophils % 0.2 % (0-1.3); Eosinophils % 1.7 % (0-4.4); Hematocrit 24.6 % (39.6-49.0); Hemoglobin 7.7 g/dL (13.6-17.9); Lymphocytes % 5.7 % (15.3-44.8); MCH 35.3 pg (27.0-35.0); MCHC 31.3 g/dL (32.0-36.0); MCV 112.8 fL (80-100); MPV 9.5 fL (7.6-11.3); Monocytes % 6.2 % (3.3-12.3); Neutrophils % 86.2 % (41.7-73.7); Platelets 156 thou/uL (152-406); RBC Red Blood Cell Count 2.18 M/uL (4.33-5.43); Red Cell Distribution Width 17.7 % (12.1-15.2)
[2023-12-29 06:07] LABS: Albumin 1.9 g/dL (3.4-5.0); Albumin/Globulin Ratio 0.6 (1.1-1.8); Anion Gap 8.7 mEq/L (5.0-15.0); Bilirubin Total 0.6 mg/dL (0.2-1.0); Globulin 3.3 g/dL (2.3-3.5); Magnesium 1.7 mg/dL (1.6-2.4); Phosphorus 2.5 mg/dL (2.5-4.9); Potassium 3.7 mEq/L (3.5-5.1); Protein, Total 5.2 g/dL (6.4-8.2)
[2023-12-29] MEDS: MAGNESIUM SULFATE 1 gm IVPB 1 GM/100 ML BAG IV ONE (06:48)
[2023-12-29] MEDS ORDERED: KCL 20 MEQ/100 mL IVPB 20 MEQ/100 ML BAG IV SCH (07:00)
[2023-12-29 07:29] LABS: Differential Total Cells Count 100; Segmented Neutrophils 88 % (40-80)
[2023-12-29 07:30] LABS: Anisocytosis 1+; Blood Morphology Comment NOTED (NOT SEEN); Eosinophils 2 % (0-3); Hypochromasia 1+; Lymphocytes 6 % (15-42); Macrocytosis 2+; Monocytes 4 % (0-10); Platelet Estimate ADEQ; Polychromasia 1+; Stomatocytes 1+
[2023-12-29] MEDS: POTASSIUM PHOS IN 0.9 % NACL 15 MMOL/250 ML BAG IV ONE (07:37)
--- NOTE | 2023-12-29 07:55 | RAD REPORT ---
EXAMINATION: ONE VIEW CHEST XR CLINICAL INDICATION: pneumonia TECHNIQUE: Frontal chest projection is submitted. Examination is limited by patient positioning and t echnique. COMPARISON: 12/27/2023 FINDINGS: Extensive bilateral pulmonary opacities are present likely representing pulmonary edema or pneumonia and appearing unchanged. The heart is mildly enlarged in size. Left-sided PICC line is tip in SVC. IMPRESSION: Stable chest noted since 12/27/2023 study.
[2023-12-29] MEDS: DEXMEDETOMIDINE HCL 1,000 MCG in NA CHLORIDE 0.9% 490 ML IV SCH (10:37)
--- NOTE | 2023-12-29 12:55 | P.PN ---
Subjective Date of Service: 12/29/23 Chief Complaint: ARDS severe pulmonary hypertension No change in patient's condition he still continues to remain very hypoxic requiring BiPAP diffuse changes on chest x-ray Review of Systems General: Weakness Respiratory: Shortness of Breath Physical Examination - Vital Signs Temperature: 97.2 F Blood Pressure: 81/62 Pulse: 95 Respirations: 36 Pulse Ox (%): 98 - Physical Exam General: Alert, Oriented x3, Mild distress Respiratory: Clear to auscultation bilaterally Cardiovascular: No edema, Regular rate/rhythm, Normal S1 S2 Other Physical/Emotional Findings: - Physical Exam. General: Morbidly obese, not acutely ill looking, in no apparent distress,. HEENT: Normocephalic, atraumatic,. Neck: Supple, without JVD or goiter or thyroid mass. Respiratory: No acute respite distress, clear to auscultation bilaterally, no crackles no wheezing or rhonchi. Cardiovascular: Distant heart sound. Gastrointestinal: Distended, decreased bowel sounds, no palpable mass. Musculoskeletal: No cyanosis, No peripheral edema. Integumentary: No rashes Assessment And Plan - Current Problems (Diagnosis) (1) ARDS (adult respiratory distress syndrome) Current Visit: Yes Status: Acute Plan: Patient has ARDS still requiring high concentrations of oxygen will check ABG his clonazepam prognosis is poor white steroids white count is elevated agree with meropenem for now check for urine cultures blood cultures chemistries unremarkable trial of dexmedetomidine (2) Perianal abscess Current Visit: Yes Status: Acute Plan: Changed to p.o. Augmentin (3) Pulmonary HTN Current Visit: Yes Status: Acute Plan: Patient has severe pulmonary hypertension I suspect is secondary to diastolic dysfunction also add low-dose spironolactone patient is also hypokalemic CT pulmonary angio to rule out thromboembolism - Plan Patient has severe pulmonary hypertension I suspect is secondary to diastolic failure
[2023-12-29 14:43] LABS: Specific Gravity 1.014 (1.005-1.030); Sqamous Epithelial <5 /HPF (None Seen); Urine Bacteria <20 /HPF (<20); Urine Bilirubin NEGATIVE (Negative); Urine Blood Negative (Negative); Urine Clarity Clear (Clear); Urine Color Light-Yellow (Yellow); Urine Crystals Unidentified Few /HPF (None Seen); Urine Culture Reflex Order NOT NEEDED; Urine Glucose 1+ (Negative); Urine Ketones NEGATIVE (Negative); Urine Microscopic Reflex YN ORDER UMIC; Urine Nitrite NEGATIVE (Negative); Urine Protein TRACE (Negative); Urine RBC <5 /HPF (None Seen); Urine Urobilinogen Normal (Normal); Urine WBC <5 /HPF (<5); Urine WBC Clump Rare /HPF (None Seen); Urine Yeast (Budding) Trace /HPF (None Seen)
--- NOTE | 2023-12-29 15:25 | P.PN ---
Subjective Date of Service: 12/29/23 Chief Complaint: ARDS severe pulmonary hypertension He states that he is doing okay, no significant private branch exchange installer the past 24-hour, dyspnea on minimal exertion, but no productive cough, persistent rectal pain but no purulent discharge, tolerating oral diet well without any abdominal pain and nausea and vomiting, condom catheter draining urine well. Review of Systems Other: Consitutional; fever(-), chills (-), rigor(-), night sweat(-), unintentional weight loss(-) HEENT; epistaxis (-), otorrhea (-), otalgia (-) Respiratory; shortness of breath (+), wheezing (-), cough (-), sputum (-), pleuritic chest pain (-) Cardiovascular; chest pain (-), peripheral edema (-), paroxysmal nocturnal dyspnea (-), orthopnea (-) Gastrointestinal; nausea (-), vomiting (-), abdominal pain (-), diarrhea (-), constipation (-), melena (-), hematochezia (-) Urinary; urinary frequency (-), dysuria (-), urgency (-), flank pain (-), gross hematuria (-) Skin; rash (-), pruritus (-) 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 General: Morbidly obese, not acutely ill looking, in no apparent distress,. HEENT: Normocephalic, atraumatic,. Neck: Supple, without JVD or goiter or thyroid mass. Respiratory: No acute respite distress, clear to auscultation bilaterally, no crackles no wheezing or rhonchi. Cardiovascular: Distant heart sound. Gastrointestinal: Distended, decreased bowel sounds, no palpable mass. Musculoskeletal: No cyanosis, No peripheral edema. Integumentary: No rashes Assessment And Plan - Plan This is 48 years old gentleman with a past medical history notable for status post Rahul-en-Y gastric bypass, CKD stage II, anemia of chronic disease, type 2 diabetes, hypertension, gastric ulcer. 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 He presented to emergency room for anal pain with a purulent discharge and CT of the chest and abdomen revealed bilateral pulmonary infiltration, a recurrent perianal abscess, patient was started on broad-spectrum antibiotics and admitted on general medical floor on December 17. This morning he developed acute respiratory failure on the floor and transferred to MICU #1 acute hypoxic respiratory failure, not improving #2 presumed acute lung injury/ARDS related #3, persistent #3 recurrent perianal abscess with severe sepsis status post surgical I&D on December 20 are growing Enterococcus faecalis, Citrobacter #4 MIGUEL on CKD with severe non-anion gap metabolic acidosis, resolved #5 history of type 2 diabetes and hypoglycemia episode, improved #6 anemia of inflammation/infection Repeat chest x-ray today personally reviewed, no significant change, will downgrade antibiotics to only meropenem based on wound culture/sensitivity result, patient continued to require high flow nasal oxygen, he declined to be refused to be intubated in order to transfer to another hospital for high-level care,\
[2023-12-29 15:31] LABS: Arterial Blood Carboxyhemoglob 1.4 % (0-1.5); Blood Gas Oxyhemoglobin 85.5 % (94-97); Blood O2 Saturation 89.7 % (92-98.5)
[2023-12-29 15:32] LABS: Blood Gas THB 10.7 g/dl (12-18)
[2023-12-29] MEDS: propofoL 1,000 MG/100 ML VIAL IV ONE (16:15)
[2023-12-29] MEDS: NA CHLORIDE 0.9% 0 ML ONE (16:15)
[2023-12-29] MEDS ORDERED: HALOPERIDOL LACT 5 MG/ML INJ IV PRN (16:21)
[2023-12-29] MEDS: LORazepam 2 MG/ML VIAL IV PRN (17:11)
[2023-12-29] MEDS: propofoL 1,000 MG/100 ML VIAL IV SCH (17:19)
--- NOTE | 2023-12-29 17:21 | RAD REPORT ---
Procedure: Chest Single View HISTORY: Intubation FINDINGS: Tip of an endotracheal tube lies at the level of the top of the aortic arch in good position.
[2023-12-29] MEDS: FENTANYL CITR 100 MCG/2 ML IV PRN (17:22)
[2023-12-29] MEDS ORDERED: SUCCINYLCHOLINE 20 MG/ML (10 ML) IV ONE (18:33)
--- NOTE | 2023-12-29 21:46 | P.PN ---
Date of Service: 12/29/23 Vital Signs Temp Pulse Resp BP Pulse Ox 97.2 F 72 28 H 88/57 L 92 12/29/23 15:25 12/29/23 18:00 12/29/23 18:00 12/29/23 18:00 12/29/23 18:00 Medications Acetaminophen (Acetaminophen 325 Mg Tablet) 650 mg PO Q4HP PRN PRN Reason: Pain scale 2-4 (Mild) Hydrocodone Bitart/Acetaminophen (Hydrocodone/Apap 5/325 Mg Tab) 1 tab PO Q4H PRN PRN Reason: Pain scale 5-7 (Moderate) Last Admin: 12/29/23 01:00 Dose: 1 tab Apixaban (Apixaban 2.5 Mg Tablet) 2.5 mg PO BID [facility] Last Admin: 12/29/23 19:21 Dose: Not Given Clonazepam (Clonazepam 0.5 Mg Tab) 0.5 mg PO BID PRN PRN Reason: ANXIETY Last Admin: 12/29/23 07:15 Dose: 0.5 mg Cyclobenzaprine HCl (Cyclobenzaprine 10 Mg Tab) 10 mg PO TID PRN PRN Reason: MUSCLE SPASMS Last Admin: 12/29/23 15:41 Dose: 10 mg Doxepin HCl (Doxepin Hcl 25 Mg Cap) 75 mg PO BEDTIME [facility] Last Admin: 12/29/23 19:21 Dose: Not Given Enteral Nutritional Formula (Glucerna Shake 237 Ml Can) 237 ml PO BID [facility] Last Admin: 12/29/23 19:21 Dose: Not Given Fentanyl Citrate (Fentanyl Citr 100 Mcg/2 Ml) 25 mcg IV Q4HP PRN PRN Reason: Pain scale 8-10 (Severe) Last Admin: 12/29/23 17:22 Dose: 25 mcg Fluoxetine HCl (Fluoxetine 20 Mg Cap) 40 mg PO DAILY [facility] Last Admin: 12/29/23 09:00 Dose: 40 mg Furosemide (Furosemide 20 Mg Tablet) 40 mg PO DAILY [facility] Last Admin: 12/29/23 08:46 Dose: Not Given Gabapentin (Gabapentin 300 Mg Cap) 600 mg PO TID [facility] Last Admin: 12/29/23 15:41 Dose: 600 mg Glucagon (Glucagon 1 Mg/Vial) 1 mg IM 1X PRN PRN Reason: HYPOGLYCEMIA Haloperidol Lactate (Haloperidol Lact 5 Mg/Ml Inj) 2 mg IV Q4HP PRN PRN Reason: ANXIETY Dextrose (Dextrose 10% Water Iv Soln.) 125 mls @ 0 mls/hr IV PRN PRN; Protocol PRN Reason: HYPOGLYCEMIA Meropenem 1,000 mg/ Sodium (Chloride) 100 mls @ 200 mls/hr IV Q8H [facility] Last Admin: 12/29/23 14:51 Dose: 100 mls Dexmedetomidine HCl 1,000 mcg/ (Sodium Chloride) 500 mls @ 9.888 mls/hr IV TITR [facility]; Protocol Last Admin: 12/29/23 10:37 Dose: 0.2 mcg/kg/hr, 9.9 mls/hr Propofol (Diprivan) 1,000 mg in 100 mls @ 2.966 mls/hr IV TITR [facility]; Protocol Last Admin: 12/29/23 20:20 Dose: 33.71 mcg/kg/min, 20 mls/hr Insulin Glargine (Insulin Glargine 100 Unit/Ml) 10 unit SQ DAILY [facility] Last Admin: 12/29/23 09:00 Dose: 10 unit Insulin Human Regular (Insulin Regular (Human) 100 Unit/Ml) 0 unit SQ Q6HR [facility]; Protocol Last Admin: 12/29/23 18:00 Dose: Not Given Lorazepam (Lorazepam 2 Mg/Ml Vial) 2 mg IV Q2HP PRN PRN Reason: Sedation-Propofol not effect Last Admin: 12/29/23 17:11 Dose: 2 mg Midazolam HCl (Midazolam Hcl 2 Mg/2 Ml Inj) 2 mg IV Q2HP PRN PRN Reason: Sedation-Propofol not effect Morphine Sulfate (Morphine 2 Mg/Ml Syr) 2 mg IV Q4H PRN PRN Reason: Pain scale 8-10 (Severe) Last Admin: 12/29/23 16:03 Dose: 2 mg Ondansetron HCl (Ondansetron 4 Mg/2 Ml Vial) 4 mg IV Q6HP PRN PRN Reason: NAUSEA / VOMITING Potassium Chloride (Potassium Cl Sa 10 Meq Tab) 20 meq PO DAILY [facility] Last Admin: 12/29/23 09:00 Dose: 20 meq Spironolactone (Spironolactone 25 Mg Tablet) 25 mg PO DAILY [facility] Last Admin: 12/29/23 08:45 Dose: Not Given Microbiology Results 12/18/23 21:53 Blood - Blood Aerobic Blood Culture - Final No growth in 5 days. 12/18/23 21:53 Blood - Blood Anaerobic Blood Culture - Final No growth in 5 days. 12/18/23 21:53 Blood - Blood Aerobic Blood Culture - Final No growth in 5 days. 12/18/23 21:53 Blood - Blood Anaerobic Blood Culture - Final No growth in 5 days. Assessment/ Plan: Nephrology Dyspnea on bipap No chest pain Weakness and fatigue No acute events overnight Vitals, medications, blood work and imaging reviewed in the chart General: In no apparent distress, Oriented x3, Cooperative HEENT: Atraumatic Neck: Supple Respiratory: Normal air movement Cardiovascular: No edema, Regular rate/rhythm Gastrointestinal: Soft and benign, Non-distended Musculoskeletal: No clubbing, No contractures Integumentary: No rashes, No cyanosis Neurological: Normal speech Laboratory Data (last 24 hrs) 12/18/23 12/18/23 21:56 18:53 WBC 22.70 H Hgb 8.8 L Hct 27.3 L Plt Count 288 PT 15.1 H INR 1.36 APTT 34.6 Imagings Data: EXAMINATION: ONE VIEW CHEST XR CLINICAL INDICATION: Male, 48 years old.,PICC line TECHNIQUE: Frontal chest projection is submitted. Examination is limited by patient positioning and technique. COMPARISON: Chest radiograph of earlier the same day FINDINGS: Partial improvement of central interstitial prominence. Stable to mildly improved fluffy central predominant opacities. Left arm PICC has been placed with tip at the level of the distal SVC. No pneumothorax or sizable effusion. The heart is normal in size. Mediastinal contours are unremarkable. IMPRESSION: Satisfactory positioning of left arm PICC. Changes of pulmonary edema, partially improved. EXAMINATION: ONE VIEW CHEST XR CLINICAL INDICATION: Male, 48 years old.,sob TECHNIQUE: Frontal chest projection is submitted. Examination is limited by patient positioning and technique. COMPARISON: 12/18/2023 FINDINGS: Central interstitial prominence and confluent bilateral central predominant fluffy opacities, progressive. No pneumothorax or sizable effusion. The heart is normal in size. Mediastinal contours are unremarkable. IMPRESSION: Progressive central interstitial prominence and airspace opacities, most concerning for pulmonary edema. EXAMINATION: ONE VIEW CHEST XR CLINICAL INDICATION: Male, 48 years old.SOB TECHNIQUE: 1 View, AP supine, X-ray of the chest was performed. [id number]. COMPARISON: Chest radiograph 11/10/2023, chest CT 09/12/2023 FINDINGS: Lungs and pleura: Ill-defined bilateral airspace disease which has progressed since 11/10/2023. No effusion. Heart and mediastinum: Normal heart size. Unremarkable mediastinal contours. Osseous structures: No acute abnormality. Tubes/lines: None Other: None. IMPRESSION: Increased ill-defined irregular bilateral airspace disease which could reflect multifocal pneumonia. EXAM: CT CHEST, ABDOMEN AND PELVIS WITHOUT CONTRAST CLINICAL INDICATION: Male, 48 years old Abd pain;Rectal drainage;SOB TECHNIQUE: CT chest, abdomen and pelvis was performed, without IV contrast, as per department protocol. Axial, sagittal and coronal reconstructions were obtained. One or more of the following dose reduction techniques were used: Automated exposure control, adjustment of the mA and/or kV according to the patient size, and/or iterative reconstruction. Unless otherwise specified, incidental findings do not require dedicated imaging follow-up. [id number]. COMPARISON: 09/12/2023, 08/15/2023 FINDINGS: The lack of intravenous contrast limits the sensitivity of this exam for evaluation of solid visceral organs, vascular structures, and retroperitoneum. Chest: LOWER NECK/CHEST WALL: Visualized thyroid gland and soft tissues are normal. LUNGS AND AIRWAYS: Worsened multifocal nodular and groundglass opacities, previously mainly in the left lung and now diffuse. PLEURA: No pleural effusion. No pneumothorax. Hemidiaphragms are normally positioned. MEDIASTINUM AND LYMPH NODES: Dense material in the distal esophagus could be from a prior study with oral contrast. THORACIC AORTA: Normal caliber and configuration. PULMONARY ARTERIES: Normal caliber. HEART: Trace pericardial effusion. Coronary artery calcifications which are mild. Abdomen/Pelvis LIVER: Normal in size and contour. No focal lesion. GALLBLADDER/BILE DUCTS: Cholecystectomy PANCREAS: Pancreatic atrophy. SPLEEN: Normal size. No focal lesion. ADRENALS: Normal; no mass. KIDNEYS AND URETERS: Punctate stone in the right kidney. No hydronephrosis. GASTROINTESTINAL TRACT: Rahul-en-Y gastric bypass. Moderate stool in the colon. No bowel obstruction. PERITONEUM: No free fluid. LYMPH NODES: No lymphadenopathy. ABDOMINAL AORTA AND OTHER VESSELS: Normal caliber aorta and IVC. URINARY BLADDER: Normal contour. REPRODUCTIVE ORGANS: No pathologic process. MUSCULOSKELETAL: No acute or suspicious osseous abnormality. Healed remote left 11th rib fracture. Remote T11 compression fracture. ADDITIONAL FINDINGS: Gas and fluid containing collection in the right medial gluteal fold and perianal region measuring approximately 4.2 x 4.9 cm x 2 cm. IMPRESSION: 1. Perianal abscess with or without fistula. 2. Worsened bilateral airspace disease compared with 09/12/2023. The appearance is most consistent with infection or inflammation but the differential is broader as the findings are progressive and chronic. 3. Dense fluid in the distal esophagus is presumably recently ingested oral contrast. This may be from an outside facility. Oral contrast is seen distally within the bowel. Retention of contrast in the esophagus could be from reflux or possible a stricture. Chronic aspiration could conceivably explain the progressive lung findings. Conclusions/Impression: Stage I MIGUEL in the setting of hypotension CKD II with Proteinuria -No NSAIDs Hypokalemia -Replete prn Hypomagnesemia -Replete prn Hypophosphatemia -Replete as ordered Acute Hypoxic Respiratory Failure ARDS -Continue Oxygen supplementation -Continue Steroids -Pulmonary following Hypotension -Albumin prn -Vasopressor prn Diastolic CHF, A/C Pulmonary HTN Peripheral Edema/ Pulmonary Edema -Continue Furosemide and Spironolactone Hypoalbuminemia -Recommend protein supplementation Anemia in chronic illness Macrocytosis -Monitor H&H -PRBC prn PeriAnal Abscess -Continue Abx -Follow up with surgery Acute Infective Cystitis with Hematuria -Continue Abx Hospitalist and Pulmonary notes reviewed Case reviewed with Dr. Sylvester Patient care 35min
[2023-12-29] MEDS: FUROSEMIDE 40 MG/4 ML VIAL IV ONE (23:33)
[2023-12-29] MEDS: ALBUTEROL 2.5 MG/3 ML NEB SOL NEB ONE (23:53)
[2023-12-30] MEDS ORDERED: CISATRACURIUM BESYLATE 40 MG in NA CHLORIDE 0.9% 80 ML IV PRN (01:22)
[2023-12-30] MEDS: FUROSEMIDE 40 MG/4 ML VIAL IV ONE (01:57)
[2023-12-30] MEDS: CISATRACURIUM INJECTION 2 MG/ML (10 ML Vial) IV PRN (01:57)
[2023-12-30] MEDS: dexAMETHasone 10 MG/ML VIAL IV ONE (01:58)
[2023-12-30] MEDS: MIDAZOLAM HCL 2 MG/2 ML INJ IV PRN (03:54)
[2023-12-30 05:51] LABS: Absolute Eosinophils 0.1 K/uL (0-0.5); Absolute Lymphocytes (CBC) 0.3 K/uL (0.7-4.9); Absolute Monocytes 0.4 K/uL (0.1-1.3); Absolute Neutrophil 20.1 K/uL (1.8-8.0); Basophils % 0.2 % (0-1.3); Eosinophils % 0.2 % (0-4.4); Hematocrit 28.8 % (39.6-49.0); Hemoglobin 9.3 g/dL (13.6-17.9); Lymphocytes % 1.3 % (15.3-44.8); MCH 35.9 pg (27.0-35.0); MCHC 32.3 g/dL (32.0-36.0); MCV 111.3 fL (80-100); MPV 9.7 fL (7.6-11.3); Monocytes % 1.9 % (3.3-12.3); Neutrophils % 96.4 % (41.7-73.7); Platelets 219 thou/uL (152-406); RBC Red Blood Cell Count 2.59 M/uL (4.33-5.43); Red Cell Distribution Width 17.7 % (12.1-15.2)
[2023-12-30 05:57] LABS: Anion Gap 8.7 mEq/L (5.0-15.0); Phosphorus 3.8 mg/dL (2.5-4.9); Potassium 4.7 mEq/L (3.5-5.1); Uric Acid 4.6 mg/dL (3.5-7.2)
--- NOTE | 2023-12-30 05:59 | RAD REPORT ---
EXAM DESCRIPTION: XR CHEST 1 VIEW 12/30/2023 12:35 AM FILM PROCESSOR CLINICAL HISTORY: 48 years, Male, Vent desaturation. COMPARISON: XR Chest 12/29/2023 4:54:59 PM. FINDINGS: 1 view of the chest (AP portable projection) was obtained. Prior films were compared. There is norm al lung volume. There is a endotracheal tube at mid trachea line at approximately 4.6 cm from the tami. Mediastinum: The cardiomediastinal silhouette appears normal in size and shape. Again there is identi fied presence of a pneumomediastinum and pneumopericardium and small subcutaneous emphysema within the right lower neck area. Lungs: Again there are extensive bilateral interstitial opacities perhaps corresponding to atypical p neumonia an/or ARDS and/or pulmonary edema. Heart: The heart is normal in size. Thoracic aorta: The thoracic aorta demonstrate to be normal. Pulmonary vasculature: The pulmonary vasculature is normal in distribution. Pleura: The costophrenic angles demonstrate to be sharp. Osseous structures: The bony structures demonstrate to be within normal limits. Other: External EKG leads within the [id number] limits diagnosis. IMPRESSION: Endotracheal tube in satisfactory position. Persistent bilateral interstitial airspace opacities. Again there is findings suspicious for pneumome diastinum and pneumopericardium and small subcutaneous emphysema within the right lower neck area. Electronically signed by: Jim Graham MD 12/30/2023 12:49 AM FILM PROCESSOR Due to temporary technical issues with the PACS/[employer] reporting system, reports are being ana d by the in-house radiologist without review as a courtesy to ensure prompt reporting the interpreting radiologist is fully responsible for the content of the report. Transcribed Date/Time: 12/30/2023 5:59 AM
--- NOTE | 2023-12-30 08:50 | RAD REPORT ---
EXAMINATION: ONE VIEW CHEST XR CLINICAL INDICATION: Male, 48 years old.,intubated TECHNIQUE: Frontal chest projection is submitted. Examination is limited by patient positioning and t echnique. COMPARISON: 12/29/2023 FINDINGS: Stable patchy airspace opacities,, now slightly more pronounced on the left, again may relate to mult ifocal pneumonia or edema/ARDS. Endotracheal tube unchanged in position. Pneumomediastinum and soft tissue gas extending to the right lower neck, stable. Lucency at the right apex, favored to be relat ed to soft tissue gas and/or skin folds rather than a true pneumothorax. The heart is normal in size. Mediastinal contours are otherwise unchanged. IMPRESSION: No significant interval change. Lucency at the right apex is favored to relate to soft tissue gas and /or skin folds, however attention on follow-up imaging is recommended.
[2023-12-30 10:22] LABS: Blood Gas Oxyhemoglobin 86.9 % (94-97); Blood O2 Saturation 89.9 % (92-98.5)
[2023-12-30 10:23] LABS: Blood Gas THB 15.1 g/dl (12-18)
--- NOTE | 2023-12-30 10:39 | P.PN ---
Subjective Date of Service: 12/30/23 Chief Complaint: ARDS severe pulmonary hypertension Subjective: Worsening He got intubated yesterday afternoon because he desaturated in 80s on high floor nasal cannula. Currently patient remained intubated, sedated and on mechanical ventilator. Borderline hypotension off vasopressor. he is on propofol, Predex, fentanyl Review of Systems is unable to be obtained Physical Examination - Vital Signs Temperature: 99.7 F Blood Pressure: 104/73 Pulse: 79 Respirations: 18 Pulse Ox (%): 92 - Physical Exam Other Physical/Emotional Findings: - Physical Exam. General: Morbidly obese, not acutely ill looking, in no apparent distress,. HEENT: Normocephalic, atraumatic,. Neck: Supple, without JVD or goiter or thyroid mass. Respiratory: No acute respite distress, clear to auscultation bilaterally, no crackles no wheezing or rhonchi. Cardiovascular: Distant heart sound. Gastrointestinal: Distended, decreased bowel sounds, no palpable mass. Musculoskeletal: No cyanosis, No peripheral edema. Integumentary: No rashes - Studies Imagings Data: Follow-up chest x-ray after intubation was read as pneumothorax of the right apex. Chest x-ray personally reviewed no definite pneumothorax that needs chest tube insertion Assessment And Plan - Plan This is 48 years old gentleman with a past medical history notable for status post Rahul-en-Y gastric bypass, CKD stage II, anemia of chronic disease, type 2 diabetes, hypertension, gastric ulcer. 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 He presented to emergency room for anal pain with a purulent discharge and CT of the chest and abdomen revealed bilateral pulmonary infiltration, a recurrent perianal abscess, patient was started on broad-spectrum antibiotics and admitted on general medical floor on December 17. This morning he developed acute respiratory failure on the floor and transferred to MICU #1 acute hypoxic respiratory failure, not improving status post intubation and on mechanical ventilator on December 28 #2 presumed acute lung injury/ARDS related #3, persistent #3 recurrent perianal abscess with severe sepsis status post surgical I&D on December 20 are growing Enterococcus faecalis, Citrobacter #4 MIGUEL on CKD with severe non-anion gap metabolic acidosis, resolved #5 history of type 2 diabetes and hypoglycemia episode, improved #6 anemia of inflammation/infection #7 questionable pneumomediastinum and pneumothorax of the right apex secondary to barotrauma Now patient is intubated, sedated on mechanical ventilator, no significant clinical improvement, will continue broad-spectrum antibiotics with meropenem, care of mechanical ventilator, pulmonology is considering withdrawal of life support due to barotrauma secondary to mechanical ventilator. Patient is in serious condition, poor prognosis, need to stay in ICU.
--- NOTE | 2023-12-30 11:59 | RAD REPORT ---
EXAMINATION: ONE VIEW CHEST XR CLINICAL INDICATION: Male, 48 years old., Intubated. Eval pneumothorax TECHNIQUE: Frontal chest projection is submitted. Examination is limited by patient positioning and t echnique. COMPARISON: 12/30/2023 FINDINGS: Stable pattern of patchy fluffy and interstitial opacities throughout the lungs. Stable pneumomediast inum and soft tissue gas along the right basal neck. Left arm PICC and endotracheal tube unchanged in position. No pneumothorax or sizable effusion. The heart is normal in size. Mediastinal contours are unremarkable. IMPRESSION: No appreciable pneumothorax. Stable findings as above.
--- NOTE | 2023-12-30 12:19 | P.PN ---
Subjective Date of Service: 12/30/23 Chief Complaint: ARDS severe pulmonary hypertension/patient on mechanical ventilator Patient was intubated yesterday due to significant hypoxemia currently on a ventilator Review of Systems is unable to be obtained Physical Examination - Vital Signs Temperature: 99.7 F Blood Pressure: 104/73 Pulse: 79 Respirations: 18 Pulse Ox (%): 92 - Physical Exam General: Unresponsive Respiratory: Clear to auscultation bilaterally Cardiovascular: No edema, Regular rate/rhythm, Normal S1 S2 Other Physical/Emotional Findings: - Physical Exam. General: Morbidly obese, not acutely ill looking, in no apparent distress,. HEENT: Normocephalic, atraumatic,. Neck: Supple, without JVD or goiter or thyroid mass. Respiratory: No acute respite distress, clear to auscultation bilaterally, no crackles no wheezing or rhonchi. Cardiovascular: Distant heart sound. Gastrointestinal: Distended, decreased bowel sounds, no palpable mass. Musculoskeletal: No cyanosis, No peripheral edema. Integumentary: No rashes Assessment And Plan - Current Problems (Diagnosis) (1) ARDS (adult respiratory distress syndrome) Current Visit: Yes Status: Acute Plan: Patient is currently on a ventilator severe ARDS 100% FiO2 has mild permissive hypercapnia count is declining patient is on meropenem patient is on pressure control mode with a pressure control of 15 PEEP of 10 no change in settings right now consulted Dr. Nguyen to insert Dobbhoff tube as patient has a gastric bypass Lovenox for DVT prophylaxis serial chest x-rays reviewed no evidence of pneumothorax endotracheal tube satisfactory position (2) Perianal abscess Current Visit: Yes Status: Acute Plan: Changed to p.o. Augmentin (3) Pulmonary HTN Current Visit: Yes Status: Acute Plan: Patient has severe pulmonary hypertension I suspect is secondary to diastolic dysfunction also add low-dose spironolactone patient is also hypokalemic CT pulmonary angio to rule out thromboembolism - Plan Patient has severe pulmonary hypertension I suspect is secondary to diastolic failure
--- NOTE | 2023-12-30 14:48 | RAD REPORT ---
EXAMINATION: ONE VIEW CHEST XR CLINICAL INDICATION: low TV, desatting TECHNIQUE: Frontal chest projection is submitted. Examination is limited by patient positioning and t echnique. COMPARISON: 12/30/2023 FINDINGS: Endotracheal intubation is noted. Tip of the ET tube is approximately 1 cm above the tami. Left-addi ed PICC line has tip in the SVC. Extensive bilateral pulmonary opacities are again seen, unchanged. Heart is mildly enlarged in size.
[2023-12-30] MEDS: FUROSEMIDE 40 MG/4 ML VIAL IV SCH (15:33)
[2023-12-30] MEDS ORDERED: SUCCINYLCHOLINE 20 MG/ML (10 ML) IV ONE (15:33)
[2023-12-30] MEDS: VANCOMYCIN 2 GM in NA CHLORIDE 0.9% 500 ML IVPB ONE (15:41)
[2023-12-30] MEDS: ENOXAPARIN 40 MG/0.4 ML SQ SCH (17:19)
--- NOTE | 2023-12-30 20:47 | P.PN ---
Date of Service: 12/30/23 Vital Signs Temp Pulse Resp BP Pulse Ox 97.5 F 69 29 H 95/68 92 12/30/23 20:00 12/30/23 20:00 12/30/23 20:00 12/30/23 20:00 12/30/23 20:00 Medications Acetaminophen (Acetaminophen 325 Mg Tablet) 650 mg PO Q4HP PRN PRN Reason: Pain scale 2-4 (Mild) Hydrocodone Bitart/Acetaminophen (Hydrocodone/Apap 5/325 Mg Tab) 1 tab PO Q4H PRN PRN Reason: Pain scale 5-7 (Moderate) Last Admin: 12/29/23 01:00 Dose: 1 tab Cisatracurium Besylate (Cisatracurium Injection 2 Mg/Ml (10 Ml Vial)) 2 mg IV Q2H PRN PRN Reason: SEDATION Last Admin: 12/30/23 18:50 Dose: 2 mg Clonazepam (Clonazepam 0.5 Mg Tab) 0.5 mg PO BID PRN PRN Reason: ANXIETY Last Admin: 12/29/23 07:15 Dose: 0.5 mg Cyclobenzaprine HCl (Cyclobenzaprine 10 Mg Tab) 10 mg PO TID PRN PRN Reason: MUSCLE SPASMS Last Admin: 12/29/23 15:41 Dose: 10 mg Doxepin HCl (Doxepin Hcl 25 Mg Cap) 75 mg PO BEDTIME [facility] Last Admin: 12/29/23 19:21 Dose: Not Given Enoxaparin Sodium (Enoxaparin 40 Mg/0.4 Ml) 40 mg SQ DAILY 5 PM [facility] Last Admin: 12/30/23 17:19 Dose: 40 mg Enteral Nutritional Formula (Glucerna Shake 237 Ml Can) 237 ml PO BID [facility] Last Admin: 12/30/23 07:47 Dose: Not Given Fentanyl Citrate (Fentanyl Citr 100 Mcg/2 Ml) 25 mcg IV Q4HP PRN PRN Reason: Pain scale 8-10 (Severe) Last Admin: 12/30/23 07:25 Dose: 25 mcg Fluoxetine HCl (Fluoxetine 20 Mg Cap) 40 mg PO DAILY [facility] Last Admin: 12/30/23 07:49 Dose: Not Given Furosemide (Furosemide 40 Mg/4 Ml Vial) 40 mg IV DAILY [facility] Last Admin: 12/30/23 15:33 Dose: 40 mg Gabapentin (Gabapentin 300 Mg Cap) 600 mg PO TID [facility] Last Admin: 12/30/23 14:00 Dose: Not Given Glucagon (Glucagon 1 Mg/Vial) 1 mg IM 1X PRN PRN Reason: HYPOGLYCEMIA Haloperidol Lactate (Haloperidol Lact 5 Mg/Ml Inj) 2 mg IV Q4HP PRN PRN Reason: ANXIETY Dextrose (Dextrose 10% Water Iv Soln.) 125 mls @ 0 mls/hr IV PRN PRN; Protocol PRN Reason: HYPOGLYCEMIA Meropenem 1,000 mg/ Sodium (Chloride) 100 mls @ 200 mls/hr IV Q8H [facility] Last Admin: 12/30/23 15:13 Dose: 100 mls Dexmedetomidine HCl 1,000 mcg/ (Sodium Chloride) 500 mls @ 9.888 mls/hr IV TITR [facility]; Protocol Last Admin: 12/30/23 16:58 Dose: 1.1 mcg/kg/hr, 54.4 mls/hr Propofol (Diprivan) 1,000 mg in 100 mls @ 2.966 mls/hr IV TITR [facility]; Protocol Last Admin: 12/30/23 20:12 Dose: 40 mcg/kg/min, 23.7 mls/hr Cisatracurium Besylate 40 mg/ (Sodium Chloride) 100 mls @ 0 mls/hr IV PRN PRN; Protocol PRN Reason: NEUROMUSCULAR BLOCKAGE Vancomycin HCl 1.25 gm/ Sodium (Chloride) 250 mls @ 166.667 mls/hr IVPB Q12HR [facility] Insulin Glargine (Insulin Glargine 100 Unit/Ml) 10 unit SQ DAILY [facility] Last Admin: 12/30/23 07:49 Dose: Not Given Insulin Human Regular (Insulin Regular (Human) 100 Unit/Ml) 0 unit SQ Q6HR [facility]; Protocol Last Admin: 12/30/23 17:19 Dose: Not Given Lorazepam (Lorazepam 2 Mg/Ml Vial) 2 mg IV Q2HP PRN PRN Reason: Sedation-Propofol not effect Last Admin: 12/30/23 02:52 Dose: 2 mg Midazolam HCl (Midazolam Hcl 2 Mg/2 Ml Inj) 2 mg IV Q2HP PRN PRN Reason: Sedation-Propofol not effect Last Admin: 12/30/23 05:47 Dose: 2 mg Morphine Sulfate (Morphine 2 Mg/Ml Syr) 2 mg IV Q4H PRN PRN Reason: Pain scale 8-10 (Severe) Last Admin: 12/30/23 18:41 Dose: 2 mg Ondansetron HCl (Ondansetron 4 Mg/2 Ml Vial) 4 mg IV Q6HP PRN PRN Reason: NAUSEA / VOMITING Potassium Chloride (Potassium Cl Sa 10 Meq Tab) 20 meq PO DAILY [facility] Last Admin: 12/30/23 07:47 Dose: Not Given Spironolactone (Spironolactone 25 Mg Tablet) 25 mg PO DAILY [facility] Last Admin: 12/30/23 07:47 Dose: Not Given Microbiology Results 12/18/23 21:53 Blood - Blood Aerobic Blood Culture - Final No growth in 5 days. 12/18/23 21:53 Blood - Blood Anaerobic Blood Culture - Final No growth in 5 days. 12/18/23 21:53 Blood - Blood Aerobic Blood Culture - Final No growth in 5 days. 12/18/23 21:53 Blood - Blood Anaerobic Blood Culture - Final No growth in 5 days. Assessment/ Plan: Nephrology Intubated yesterday due to worsening hypoxia Limited IH/ ROS due to sedation Case reviewed with family at bedside Vitals, medications, blood work and imaging reviewed in the chart General: Sedated HEENT: Atraumatic Neck: Supple Respiratory: Intubated Cardiovascular: No edema, Regular rate/rhythm Gastrointestinal: Soft and benign, Non-distended Musculoskeletal: No clubbing, No contractures Integumentary: No rashes, No cyanosis Neurological: No speech Laboratory Data (last 24 hrs) 12/18/23 12/18/23 21:56 18:53 WBC 22.70 H Hgb 8.8 L Hct 27.3 L Plt Count 288 PT 15.1 H INR 1.36 APTT 34.6 Imagings Data: EXAMINATION: ONE VIEW CHEST XR CLINICAL INDICATION: Male, 48 years old.,PICC line TECHNIQUE: Frontal chest projection is submitted. Examination is limited by patient positioning and technique. COMPARISON: Chest radiograph of earlier the same day FINDINGS: Partial improvement of central interstitial prominence. Stable to mildly improved fluffy central predominant opacities. Left arm PICC has been placed with tip at the level of the distal SVC. No pneumothorax or sizable effusion. The heart is normal in size. Mediastinal contours are unremarkable. IMPRESSION: Satisfactory positioning of left arm PICC. Changes of pulmonary edema, partially improved. EXAMINATION: ONE VIEW CHEST XR CLINICAL INDICATION: Male, 48 years old.,sob TECHNIQUE: Frontal chest projection is submitted. Examination is limited by patient positioning and technique. COMPARISON: 12/18/2023 FINDINGS: Central interstitial prominence and confluent bilateral central predominant fluffy opacities, progressive. No pneumothorax or sizable effusion. The heart is normal in size. Mediastinal contours are unremarkable. IMPRESSION: Progressive central interstitial prominence and airspace opacities, most concerning for pulmonary edema. EXAMINATION: ONE VIEW CHEST XR CLINICAL INDICATION: Male, 48 years old.SOB TECHNIQUE: 1 View, AP supine, X-ray of the chest was performed. [id number]. COMPARISON: Chest radiograph 11/10/2023, chest CT 09/12/2023 FINDINGS: Lungs and pleura: Ill-defined bilateral airspace disease which has progressed since 11/10/2023. No effusion. Heart and mediastinum: Normal heart size. Unremarkable mediastinal contours. Osseous structures: No acute abnormality. Tubes/lines: None Other: None. IMPRESSION: Increased ill-defined irregular bilateral airspace disease which could reflect multifocal pneumonia. EXAM: CT CHEST, ABDOMEN AND PELVIS WITHOUT CONTRAST CLINICAL INDICATION: Male, 48 years old Abd pain;Rectal drainage;SOB TECHNIQUE: CT chest, abdomen and pelvis was performed, without IV contrast, as per department protocol. Axial, sagittal and coronal reconstructions were obtained. One or more of the following dose reduction techniques were used: Automated exposure control, adjustment of the mA and/or kV according to the patient size, and/or iterative reconstruction. Unless otherwise specified, incidental findings do not require dedicated imaging follow-up. [id number]. COMPARISON: 09/12/2023, 08/15/2023 FINDINGS: The lack of intravenous contrast limits the sensitivity of this exam for evaluation of solid visceral organs, vascular structures, and retroperitoneum. Chest: LOWER NECK/CHEST WALL: Visualized thyroid gland and soft tissues are normal. LUNGS AND AIRWAYS: Worsened multifocal nodular and groundglass opacities, previously mainly in the left lung and now diffuse. PLEURA: No pleural effusion. No pneumothorax. Hemidiaphragms are normally positioned. MEDIASTINUM AND LYMPH NODES: Dense material in the distal esophagus could be from a prior study with oral contrast. THORACIC AORTA: Normal caliber and configuration. PULMONARY ARTERIES: Normal caliber. HEART: Trace pericardial effusion. Coronary artery calcifications which are mild. Abdomen/Pelvis LIVER: Normal in size and contour. No focal lesion. GALLBLADDER/BILE DUCTS: Cholecystectomy PANCREAS: Pancreatic atrophy. SPLEEN: Normal size. No focal lesion. ADRENALS: Normal; no mass. KIDNEYS AND URETERS: Punctate stone in the right kidney. No hydronephrosis. GASTROINTESTINAL TRACT: Rahul-en-Y gastric bypass. Moderate stool in the colon. No bowel obstruction. PERITONEUM: No free fluid. LYMPH NODES: No lymphadenopathy. ABDOMINAL AORTA AND OTHER VESSELS: Normal caliber aorta and IVC. URINARY BLADDER: Normal contour. REPRODUCTIVE ORGANS: No pathologic process. MUSCULOSKELETAL: No acute or suspicious osseous abnormality. Healed remote left 11th rib fracture. Remote T11 compression fracture. ADDITIONAL FINDINGS: Gas and fluid containing collection in the right medial gluteal fold and perianal region measuring approximately 4.2 x 4.9 cm x 2 cm. IMPRESSION: 1. Perianal abscess with or without fistula. 2. Worsened bilateral airspace disease compared with 09/12/2023. The appearance is most consistent with infection or inflammation but the differential is broader as the findings are progressive and chronic. 3. Dense fluid in the distal esophagus is presumably recently ingested oral contrast. This may be from an outside facility. Oral contrast is seen distally within the bowel. Retention of contrast in the esophagus could be from reflux or possible a stricture. Chronic aspiration could conceivably explain the progressive lung findings. Conclusions/Impression: Stage I MIGUEL in the setting of hypotension CKD II with Proteinuria -No NSAIDs Hypokalemia -Replete prn Hypomagnesemia -Replete prn Hypophosphatemia -Replete pRN Acute Hypoxic Respiratory Failure ARDS -Continue Oxygen supplementation -Continue Steroids -Intubated 12-28-; continue ventilatory support -Pulmonary following Hypotension -Albumin prn -Vasopressor prn Diastolic CHF, A/C Pulmonary HTN Peripheral Edema/ Pulmonary Edema -Continue Furosemide and Spironolactone Hypoalbuminemia -Recommend protein supplementation Anemia in chronic illness Macrocytosis -Monitor H&H -PRBC prn PeriAnal Abscess -Continue Abx -Follow up with surgery Acute Infective Cystitis with Hematuria -Continue Abx Hospitalist and Pulmonary notes reviewed Case reviewed with Dr. Sylvester Patient care 35min
[2023-12-30] MEDS: VANCOMYCIN 1.25 GM in NA CHLORIDE 0.9% 250 ML IVPB SCH (21:07)
[2023-12-31] MEDS ORDERED: MORPHINE 2 MG/ML SYR IV PRN ×2 (01:15→12:07)
[2023-12-31 06:05] LABS: Arterial Blood Carboxyhemoglob 0.7 % (0-1.5); Blood Gas Oxyhemoglobin 48.6 % (94-97); Blood O2 Saturation 50.5 % (92-98.5)
[2023-12-31 06:06] LABS: Blood Gas THB 10.4 g/dl (12-18)
[2023-12-31 06:15] VITALS: BMI 26.2
--- NOTE | 2023-12-31 06:45 | P.PN ---
Date of Service: 12/31/23 This morning ABG significantly worse than previous pH 7.1, pCO2 96.2, pO2 40, HCO3 31.8, O2 50.5%, BE 3.4 CXR demonstrates right pneumothorax. Dr. Fowler notified and will come to place chest tube. Working on consent per Mr. Ayers's , Sheri. [facility] transfer in progress. Will reassess post intervention. BP/HR 137/107, 84. 91% at this time on mechanical ventilation.
[2023-12-31 07:46] LABS: Absolute Basophils 0.3 K/uL (0-0.5); Absolute Lymphocytes (CBC) 0.5 K/uL (0.7-4.9); Absolute Monocytes 3.2 K/uL (0.1-1.3); Absolute Neutrophil 27.7 K/uL (1.8-8.0); Basophils % 0.8 % (0-1.3); Hematocrit 31.8 % (39.6-49.0); Lymphocytes % 1.5 % (15.3-44.8); MCH 35.6 pg (27.0-35.0); MCHC 31.4 g/dL (32.0-36.0); MCV 113.2 fL (80-100); MPV 9.7 fL (7.6-11.3); Monocytes % 10.2 % (3.3-12.3); Neutrophils % 87.5 % (41.7-73.7); Nucleated Red Blood Cells % 0.1 % (0-0); Platelets 281 thou/uL (152-406); RBC Red Blood Cell Count 2.81 M/uL (4.33-5.43); Red Cell Distribution Width 16.6 % (12.1-15.2)
[2023-12-31 08:02] LABS: Albumin 2.2 g/dL (3.4-5.0); Albumin/Globulin Ratio 0.5 (1.1-1.8); Anion Gap 14.8 mEq/L (5.0-15.0); Bilirubin Total 0.7 mg/dL (0.2-1.0); Globulin 4.6 g/dL (2.3-3.5); Phosphorus 8.2 mg/dL (2.5-4.9); Potassium 5.8 mEq/L (3.5-5.1); Protein, Total 6.8 g/dL (6.4-8.2)
--- NOTE | 2023-12-31 08:55 | RAD REPORT ---
EXAMINATION: ONE VIEW CHEST XR CLINICAL INDICATION: Male, 48 years old.,ARDS TECHNIQUE: Frontal chest projection is submitted. Examination is limited by patient positioning and t echnique. COMPARISON: 12/30/2023 FINDINGS: New moderate right-sided pneumothorax. Increased lucency at the left apex as well concerning for a sm all pneumothorax. Endotracheal tube and left arm PICC unchanged in position. Otherwise stable extent of hazy bilateral airspace opacities. The heart is normal in size. Mediastinal contours are un changed, with stable pneumomediastinum. Soft tissue gas at the base of the neck has since improved. IMPRESSION: Moderate right pneumothorax. Probable small left apical pneumothorax as well. Otherwise stable findin gs including bilateral hazy airspace opacities, may reflect pulmonary edema or ARDS. THIS REPORT CONTAINS FINDINGS THAT MAY BE CRITICAL TO PATIENT CARE. The findings were verbally commun icated via telephone to Flaquito Jeter MD on 12/31/2023 8:53 AM.
[2023-12-31 09:06] LABS: Band Neutrophils 1 % (0-1); Blood Morphology Comment NOTED (NOT SEEN); Differential Total Cells Count 100; Macrocytosis 2+; Monocytes 8 % (0-10); Platelet Estimate ADEQ; Platelets Clumped NOTED; Polychromasia SLIGHT; Segmented Neutrophils 91 % (40-80)
[2023-12-31 09:07] LABS: Stomatocytes 1+
[2023-12-31 09:58] VITALS: O2SAT 97
--- NOTE | 2023-12-31 10:30 | PN ---
Date of Progress Note: 12/31/2023 Mr. Ayers is a 48-year-old patient with multiple medical problems, comes to us with respiratory compla int, weakness, malaise. As part of the workup, the patient has history of fistula, so they called me to evaluate for that area. I took him to Surgery and drained some of his fistula as a way how to tr rosy to diminish a lot of workload on his body, but from his lung standpoint, he never got to recover . He is getting into an area which shows more congestion. He has been in the ICU for a long time an d recently, on ventilator and when the ventilator comes in, then he trauma with a right pneu mothorax that showed this morning. I came, talked to the family that person is intubated, and he has diminished breath sounds on the right side and his lungs look deteriorated for the last f ew days. So the family decided to hold treatment. I still explained to them the benefits, alternati ves, and risks of chest tube placement which include, but not limited to, infection, bleeding, damage to adjacent structures, anesthesia complication, empyema, bleeding, CO, even , but before I beulah n explained that, the ICU nurse just stopped me in the hallway and said that she is thinking and not even proceeding with it. I just want to make sure that she is informed on her decision. We know the family. We had seen them in the past. We developed a trust with them, and she is very convinced of what is going on. He has been sick for several months. He talked to her before about how he does n ot feel great, but even though she tried many times to get him in the hospital, he just did not want to do so until he comes sick with multiorgan problems, including the lungs, including kidneys, includ ing integumentary in the case of fistulas and abscess in the perianal region. That area at this mome nt is under control, but his lungs have not recovered. So I discussed with her, and she does not wan t to proceed with the chest tube placement. I explained to them this with the high pressure in the v ent may lead into tension pneumothorax and she is about to sign DNR. I will be available in case she changed her mind since she is very convinced, and she looks like she is having an informed consent of withdrawal treatment. RICHARD/TAMIKO Voice ID: [id number] Report ID: [id number]
--- NOTE | 2023-12-31 11:12 | P.PN ---
Subjective Date of Service: 12/31/23 Chief Complaint: ARDS severe pulmonary hypertension/patient on mechanical ventilator Subjective: Worsening ABG this morning reviewed, severe hypoxic respiratory failure, progressing, follow-up chest x-ray personally reviewed increased in size of the right pneu mothorax. Patient remained intubated on mechanical ventilator Review of Systems is unable to be obtained Physical Examination - Vital Signs Temperature: 97.7 F Blood Pressure: 100/64 Pulse: 105 Respirations: 24 Pulse Ox (%): 97 - Physical Exam Other Physical/Emotional Findings: - Physical Exam. General: Morbidly obese, sedated, intubated,. HEENT: Normocephalic, atraumatic,. Neck: Supple, without JVD or goiter or thyroid mass. Respiratory: No acute respite distress, clear to auscultation bilaterally, no crackles no wheezing or rhonchi. Cardiovascular: Distant heart sound. Gastrointestinal: Distended, decreased bowel sounds, no palpable mass. Musculoskeletal: No cyanosis, No peripheral edema. Integumentary: No rashes Assessment And Plan - Plan This is 48 years old gentleman with a past medical history notable for status post Rahul-en-Y gastric bypass, CKD stage II, anemia of chronic disease, type 2 diabetes, hypertension, gastric ulcer. 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 He presented to emergency room for anal pain with a purulent discharge and CT of the chest and abdomen revealed bilateral pulmonary infiltration, a recurrent perianal abscess, patient was started on broad-spectrum antibiotics and admitted on general medical floor on December 17. This morning he developed acute respiratory failure on the floor and transferred to MICU #1 acute hypoxic respiratory failure, not improving status post intubation and on mechanical ventilator on December 28 #2 presumed acute lung injury/ARDS related #3, persistent #3 recurrent perianal abscess with severe sepsis status post surgical I&D on December 20 are growing Enterococcus faecalis, Citrobacter #4 MIGUEL on CKD with severe non-anion gap metabolic acidosis, resolved #5 history of type 2 diabetes and hypoglycemia episode, improved #6 anemia of inflammation/infection #7 right pneumothorax secondary to barotrauma Patient continued to progress, a follow-up x-ray revealed increased size of the right pneumothorax, ABG consistent with worsening severe hypoxic respiratory failure. Patient family refused chest tube insertion and wants to place patient in DNR. We tried to transfer him to a tertiary facility in [facility] and [facility]. This morning patient was accepted in [facility] by Dr. Hamm in [facility] only on condition of full code. Despite multiple physicians including myself explained to family that there is a possibility of survivor of the patient if patient is transferred to high-level care with a full code, patient family, Mrs. Ayers insist on withdrawal of life support and DNR. Patient was placed in DNR per patient request. [employer] was contacted as patient is living donor but the refuses donation of living organs.
--- NOTE | 2023-12-31 11:42 | P.PN ---
Subjective Date of Service: 12/31/23 Chief Complaint: ARDS severe pulmonary hypertension/patient on mechanical ventilator Patient's condition has deteriorated he is unresponsive now has a pneumothorax on the right side Review of Systems is unable to be obtained Physical Examination - Vital Signs Temperature: 97.7 F Blood Pressure: 100/64 Pulse: 105 Respirations: 24 Pulse Ox (%): 97 - Physical Exam General: Unresponsive Respiratory: Diminished Other Physical/Emotional Findings: - Physical Exam. General: Morbidly obese, sedated, intubated,. HEENT: Normocephalic, atraumatic,. Neck: Supple, without JVD or goiter or thyroid mass. Respiratory: No acute respite distress, clear to auscultation bilaterally, no crackles no wheezing or rhonchi. Cardiovascular: Distant heart sound. Gastrointestinal: Distended, decreased bowel sounds, no palpable mass. Musculoskeletal: No cyanosis, No peripheral edema. Integumentary: No rashes Assessment And Plan - Current Problems (Diagnosis) (1) ARDS (adult respiratory distress syndrome) Current Visit: Yes Status: Acute Plan: Patient has ARDS patient has become progressively worse now has developed pneumothorax on the right side possibly on the left side since family members refused chest tubes right now comfort care the plan to withdraw him from the ve ntilator patient also has been multiorgan failure and has become progressively more hypercapnic for comfort care only - Plan Patient has severe pulmonary hypertension I suspect is secondary to diastolic failure
[2023-12-31] MEDS ORDERED: LORazepam 2 MG/ML VIAL IV PRN (12:08)
[2023-12-31] MEDS ORDERED: FENTANYL CITR 100 MCG/2 ML IV PRN (12:09)
[2023-12-31] MEDS: FENTANYL 25 MCG/PATCH TD SCH (13:32)
[2023-12-31 14:31] VITALS: BP 75/58; TEMP 97.9
--- NOTE | 2023-12-31 16:07 | P.DS ---
Admission Date: 12/18/23 Discharge Date: 12/31/23 Disposition: Discharge Condition: Reason for Admission: ARDS severe pulmonary hypertension/patient on mechanical ventilator Consultations: [employer] and division operations specialist Brief History of Present Illness: This is 48 years old gentleman with a past medical history notable for status post Rahul-en-Y gastric bypass, CKD stage II, anemia of chronic disease, type 2 diabetes, hypertension, gastric ulcer. 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 He presented to emergency room for anal pain with a purulent discharge and CT of the chest and abdomen revealed bilateral pulmonary infiltration, a recurrent perianal abscess, patient was started on broad-spectrum antibiotics and admitted on general medical floor on December 17. The next morning he developed acute respiratory failure on the floor and transferred to MICU. Hospital Course: He was found to have acute severe hypoxic respiratory failure by ABG, his chest x-ray revealed sudden onset of extensive bilateral pulmonary filtration, which consistent with acute respiratory distress syndrome ( ARDS). He was treated w ith high flow nasal cannula, broad-spectrum antibiotics with meropenem and IV vancomycin, IV furosemide, IV hydrocortisone. He underwent bedside surgical I&D on December 20. Wound culture was growing Enterococcus faecalis and Citrobacter. He did not improve at all in spite of all his treatments. Transfer to higher level of care was strongly recommended but patient declined to be intubated to be transferred. He continued to decline and desaturated in 80% on high flow oxygen and ended up intubated and placed on mechanical ventilator on December 28. He required 100% oxygen on ventilator. His hospital course was complicated by right pneumothorax and pneumomediastinum secondary to barotrauma the next day. His right pneumothorax got worse to the point where chest tube insertion is required on December 30 , however his family refused chest tube insertion and transfer to [facility] even though patient was accepted in [facility] in [facility]. His family decided to place him in DNR. [employer] was contacted as patient was a living donor but his declined organ donation. His family requested to withdraw his care and he was extubated and with his family members at bedside on 13:56 on December 31, 2023. Discharge diagnosis #1 acute severe hypoxic respiratory failure, #2 ARDS related #3, persistent #3 recurrent perianal abscess with severe sepsis #4 MIGUEL on CKD with severe non-anion gap metabolic acidosis, resolved #5 history of type 2 diabetes and hypoglycemia episode, improved #6 anemia of inflammation/infection #7 right pneumothorax secondary to barotrauma Vital Signs/Physical Exam: Temp Pulse Resp BP Pulse Ox 97.9 F 128 H 24 H 75/58 L 99 12/31/23 12:00 12/31/23 13:30 12/31/23 13:30 12/31/23 13:30 12/31/23 13:30 Other Physical/Emotional Findings: - Physical Exam. General: Morbidly obese, sedated,. HEENT: Normocephalic, atraumatic, endotracheal tube in place. Neck: Supple, without JVD or goiter or thyroid mass,. Respiratory: No acute respite distress, clear to auscultation bilaterally, no crackles no wheezing or rhonchi. Cardiovascular: Distant heart sound. Gastrointestinal: Distended, decreased bowel sounds, no palpable mass. Musculoskeletal: No cyanosis, No peripheral edema. Integumentary: No rashes Laboratory Data at Discharge: WBC 31.70 thou/uL (4.3-10.9) H 12/31/23 07:25 Hgb 10.0 g/dL (13.6-17.9) L 12/31/23 07:25 Hct 31.8 % (39.6-49.0) L 12/31/23 07:25 Plt Count 281 thou/uL (152-406) D 12/31/23 07:25 PT 15.1 SECONDS (9.4-12.5) H 12/18/23 21:56 INR 1.36 12/18/23 21:56 APTT Cancelled 12/19/23 09:17 Sodium 137 mEq/L (136-145) 12/31/23 07:25 Potassium 5.8 mEq/L (3.5-5.1) H D 12/31/23 07:25 BUN 38 mg/dL (7-18) H 12/31/23 07:25 Creatinine 1.79 mg/dL (0.70-1.30) H 12/31/23 07:25 Glucose 209 mg/dL (74-106) H 12/31/23 07:25 Uric Acid 4.6 mg/dL (3.5-7.2) 12/30/23 05:00 Phosphorus 8.2 mg/dL (2.5-4.9) H 12/31/23 07:25 Magnesium 2.0 mg/dL (1.6-2.4) 12/31/23 07:25 Total Bilirubin 0.7 mg/dL (0.2-1.0) 12/31/23 07:25 AST 12 U/L (15-37) L 12/31/23 07:25 ALT 29 U/L (16-61) 12/31/23 07:25 Alkaline Phosphatase 95 U/L (45-117) 12/31/23 07:25 Home Medications: Gabapentin [Neurontin] 600 mg PO TID 04/02/19 Fluoxetine HCl [Prozac] 1 cap PO DAILY 12/20/20 Morphine *Extended Release* [MS Contin*] 1 tab PO DAILY 12/20/20 Hydrocodone Bit/Acetaminophen [Hydrocodon-Acetaminophn 10-325] 10 mg PO Q6H PRN 01/05/22 carvediloL [Coreg] 12.5 mg PO BID 01/05/22 Collagenase [Santyl Ointment*] 30 gm TP BEDTIME 02/17/22 Doxepin HCl 75 mg PO BEDTIME 02/17/22 Cyclobenzaprine [Flexeril*] 10 mg PO TID PRN 09/12/23 Amox/Clavulanate [Augmentin 875-125 Tab] 1 each PO BID #20 tab 09/15/23 Doxycycline Hyclate 100 mg PO BID #20 cap 09/15/23 Followup: Erma Riojas FNP [Primary Care Provider] -
--- NOTE | 2023-12-31 19:02 | P.PN ---
Date of Service: 12/31/23 Vital Signs Temp Pulse Resp BP Pulse Ox 97.9 F 128 H 24 H 75/58 L 99 12/31/23 12:00 12/31/23 13:30 12/31/23 13:30 12/31/23 13:30 12/31/23 13:30 Microbiology Results 12/18/23 21:53 Blood - Blood Aerobic Blood Culture - Final No growth in 5 days. 12/18/23 21:53 Blood - Blood Anaerobic Blood Culture - Final No growth in 5 days. 12/18/23 21:53 Blood - Blood Aerobic Blood Culture - Final No growth in 5 days. 12/18/23 21:53 Blood - Blood Anaerobic Blood Culture - Final No growth in 5 days. Assessment/ Plan: Nephrology Respiratory status much worse today despite the intubation Limited IH/ ROS due to sedation Case reviewed with family Vitals, medications, blood work and imaging reviewed in the chart General: Sedated HEENT: Atraumatic Neck: Supple Respiratory: Intubated Cardiovascular: No edema, Regular rate/rhythm Gastrointestinal: Soft and benign, Non-distended Musculoskeletal: No clubbing, No contractures Integumentary: No rashes, No cyanosis Neurological: No speech Laboratory Data (last 24 hrs) 12/18/23 12/18/23 21:56 18:53 WBC 22.70 H Hgb 8.8 L Hct 27.3 L Plt Count 288 PT 15.1 H INR 1.36 APTT 34.6 Imagings Data: EXAMINATION: ONE VIEW CHEST XR CLINICAL INDICATION: Male, 48 years old.,PICC line TECHNIQUE: Frontal chest projection is submitted. Examination is limited by patient positioning and technique. COMPARISON: Chest radiograph of earlier the same day FINDINGS: Partial improvement of central interstitial prominence. Stable to mildly improved fluffy central predominant opacities. Left arm PICC has been placed with tip at the level of the distal SVC. No pneumothorax or sizable effusion. The heart is normal in size. Mediastinal contours are unremarkable. IMPRESSION: Satisfactory positioning of left arm PICC. Changes of pulmonary edema, partially improved. EXAMINATION: ONE VIEW CHEST XR CLINICAL INDICATION: Male, 48 years old.,sob TECHNIQUE: Frontal chest projection is submitted. Examination is limited by patient positioning and technique. COMPARISON: 12/18/2023 FINDINGS: Central interstitial prominence and confluent bilateral central predominant fluffy opacities, progressive. No pneumothorax or sizable effusion. The heart is normal in size. Mediastinal contours are unremarkable. IMPRESSION: Progressive central interstitial prominence and airspace opacities, most concerning for pulmonary edema. EXAMINATION: ONE VIEW CHEST XR CLINICAL INDICATION: Male, 48 years old.SOB TECHNIQUE: 1 View, AP supine, X-ray of the chest was performed. [id number]. COMPARISON: Chest radiograph 11/10/2023, chest CT 09/12/2023 FINDINGS: Lungs and pleura: Ill-defined bilateral airspace disease which has progressed since 11/10/2023. No effusion. Heart and mediastinum: Normal heart size. Unremarkable mediastinal contours. Osseous structures: No acute abnormality. Tubes/lines: None Other: None. IMPRESSION: Increased ill-defined irregular bilateral airspace disease which could reflect multifocal pneumonia. EXAM: CT CHEST, ABDOMEN AND PELVIS WITHOUT CONTRAST CLINICAL INDICATION: Male, 48 years old Abd pain;Rectal drainage;SOB TECHNIQUE: CT chest, abdomen and pelvis was performed, without IV contrast, as per department protocol. Axial, sagittal and coronal reconstructions were obtained. One or more of the following dose reduction techniques were used: Automated exposure control, adjustment of the mA and/or kV according to the patient size, and/or iterative reconstruction. Unless otherwise specified, incidental findings do not require dedicated imaging follow-up. [id number]. COMPARISON: 09/12/2023, 08/15/2023 FINDINGS: The lack of intravenous contrast limits the sensitivity of this exam for evaluation of solid visceral organs, vascular structures, and retroperitoneum. Chest: LOWER NECK/CHEST WALL: Visualized thyroid gland and soft tissues are normal. LUNGS AND AIRWAYS: Worsened multifocal nodular and groundglass opacities, previously mainly in the left lung and now diffuse. PLEURA: No pleural effusion. No pneumothorax. Hemidiaphragms are normally positioned. MEDIASTINUM AND LYMPH NODES: Dense material in the distal esophagus could be from a prior study with oral contrast. THORACIC AORTA: Normal caliber and configuration. PULMONARY ARTERIES: Normal caliber. HEART: Trace pericardial effusion. Coronary artery calcifications which are mild. Abdomen/Pelvis LIVER: Normal in size and contour. No focal lesion. GALLBLADDER/BILE DUCTS: Cholecystectomy PANCREAS: Pancreatic atrophy. SPLEEN: Normal size. No focal lesion. ADRENALS: Normal; no mass. KIDNEYS AND URETERS: Punctate stone in the right kidney. No hydronephrosis. GASTROINTESTINAL TRACT: Rahul-en-Y gastric bypass. Moderate stool in the colon. No bowel obstruction. PERITONEUM: No free fluid. LYMPH NODES: No lymphadenopathy. ABDOMINAL AORTA AND OTHER VESSELS: Normal caliber aorta and IVC. URINARY BLADDER: Normal contour. REPRODUCTIVE ORGANS: No pathologic process. MUSCULOSKELETAL: No acute or suspicious osseous abnormality. Healed remote left 11th rib fracture. Remote T11 compression fracture. ADDITIONAL FINDINGS: Gas and fluid containing collection in the right medial glu teal fold and perianal region measuring approximately 4.2 x 4.9 cm x 2 cm. IMPRESSION: 1. Perianal abscess with or without fistula. 2. Worsened bilateral airspace disease compared with 09/12/2023. The appearance is most consistent with infection or inflammation but the differential is broader as the findings are progressive and chronic. 3. Dense fluid in the distal esophagus is presumably recently ingested oral contrast. This may be from an outside facility. Oral contrast is seen distally within the bowel. Retention of contrast in the esophagus could be from reflux or possible a stricture. Chronic aspiration could conceivably explain the progressive lung findings. [id number] EXAMINATION: ONE VIEW CHEST XR CLINICAL INDICATION: Male, 48 years old.,ARDS TECHNIQUE: Frontal chest projection is submitted. Examination is limited by patient positioning and technique. COMPARISON: 12/30/2023 FINDINGS: New moderate right-sided pneumothorax. Increased lucency at the left apex as well concerning for a small pneumothorax. Endotracheal tube and left arm PICC unchanged in position. Otherwise stable extent of hazy bilateral airspace opacities. The heart is normal in size. Mediastinal contours are unchanged, with stable pneumomediastinum. Soft tissue gas at the base of the neck has since improved. IMPRESSION: Moderate right pneumothorax. Probable small left apical pneumothorax as well. Otherwise stable findings including bilateral hazy airspace opacities, may reflect pulmonary edema or ARDS. Conclusions/Impression: Stage I MIGUEL in the setting of hypotension CKD II with Proteinuria -No NSAIDs Hyperkalemia -Discontinue Spironolactone and Glucerna -Lokelma prn Hypomagnesemia -Replete prn Hypophosphatemia -Replete prn Acute Hypoxic Respiratory Failure ARDS BL Pneumothorax -Continue Oxygen supplementation -Continue Steroids -Intubated 12-29-23; continue ventilatory support -Pulmonary following Hypotension -Albumin prn -Vasopressor prn Diastolic CHF, A/C Pulmonary HTN Peripheral Edema/ Pulmonary Edema -Continue Furosemide -Discontinue Spironolactone Hypoalbuminemia -Recommend protein supplementation Anemia in chronic illness Macrocytosis -Monitor H&H -PRBC prn PeriAnal Abscess -Continue Abx -Follow up with surgery Acute Infective Cystitis with Hematuria -Continue Abx Hospitalist and Pulmonary notes reviewed Patient care 45min Family is planning to withdraw care due to the worsening of his condition
== END 2023-12-31 13:56 | disposition expired | DRG 853 ==
LOC: ER 17:35 → 2ND 21:57 → 3RD-ICU 12-19 09:00
PROVIDERS: ADMIT Family Medicine; ATTEND Internal Medicine
PROC: 4A033R1 Measurement of Arterial Saturation, Peripheral, Percutaneous Approach (ICD-10-PCS; 2023-12-19)
PROC: 5A09557 Assistance with Respiratory Ventilation, Greater than 96 Consecutive Hours, Continuous Positive Airway Pressure (ICD-10-PCS; 2023-12-19)
PROC: 5A0955A Assistance with Respiratory Ventilation, Greater than 96 Consecutive Hours, High Flow/Velocity Cannula (ICD-10-PCS; 2023-12-19)
PROC: 02HV33Z Insertion of Infusion Device into Superior Vena Cava, Percutaneous Approach (ICD-10-PCS; 2023-12-19)
PROC: 0D9P8ZZ Drainage of Rectum, Via Natural or Artificial Opening Endoscopic (ICD-10-PCS; principal; 2023-12-21 10:00)
PROC: 5A1945Z Respiratory Ventilation, 24-96 Consecutive Hours (ICD-10-PCS; 2023-12-29)
PROC: 0BH17EZ Insertion of Endotracheal Airway into Trachea, Via Natural or Artificial Opening (ICD-10-PCS; 2023-12-29)
PROC: 0DH67UZ Insertion of Feeding Device into Stomach, Via Natural or Artificial Opening (ICD-10-PCS; 2023-12-29)
PROC: 0T9B70Z Drainage of Bladder with Drainage Device, Via Natural or Artificial Opening (ICD-10-PCS; 2023-12-29)
DX: A41.81 Sepsis due to Enterococcus (principal); I50.33 Acute on chronic diastolic (congestive) heart failure; J18.9 Pneumonia, unspecified organism; J80 Acute respiratory distress syndrome; R65.21 Severe sepsis with septic shock; E44.1 Mild protein-calorie malnutrition; K61.0 Anal abscess; L02.31 Cutaneous abscess of buttock; N17.9 Acute kidney failure, unspecified; E87.20 Acidosis, unspecified; J81.1 Chronic pulmonary edema; N30.01 Acute cystitis with hematuria; K61.1 Rectal abscess; E11.52 Type 2 diabetes mellitus with diabetic peripheral angiopathy with gangrene; I13.0 Hypertensive heart and chronic kidney disease with heart failure and stage 1 through stage 4 chronic kidney disease, or unspecified chronic kidney disease; J93.9 Pneumothorax, unspecified; R65.20 Severe sepsis without septic shock; N18.30 Chronic kidney disease, stage 3 unspecified; E11.22 Type 2 diabetes mellitus with diabetic chronic kidney disease; E11.649 Type 2 diabetes mellitus with hypoglycemia without coma; D63.1 Anemia in chronic kidney disease; D50.9 Iron deficiency anemia, unspecified; G89.29 Other chronic pain; M54.9 Dorsalgia, unspecified; E87.6 Hypokalemia; E83.42 Hypomagnesemia; N25.89 Other disorders resulting from impaired renal tubular function; E88.09 Other disorders of plasma-protein metabolism, not elsewhere classified; K21.9 Gastro-esophageal reflux disease without esophagitis; I27.20 Pulmonary hypertension, unspecified; D69.6 Thrombocytopenia, unspecified; K27.9 Peptic ulcer, site unspecified, unspecified as acute or chronic, without hemorrhage or perforation; T70.29XA Other effects of high altitude, initial encounter; Z66 Do not resuscitate; Z78.1 Physical restraint status; Z68.29 Body mass index [BMI] 29.0-29.9, adult; Z11.52 Encounter for screening for COVID-19; Z79.02 Long term (current) use of antithrombotics/antiplatelets; Z79.899 Other long term (current) drug therapy; Z90.49 Acquired absence of other specified parts of digestive tract; Z98.84 Bariatric surgery status
CPT/HCPCS: 36415; 36600; 71045; 71250; 71275; 74176; 80048; 80053; 80069; 80307; 81001; 81003; 82043; 82085; 82435; 82533; 82550; 82570; 82607; 82728; 82805; 82947; 83540; 83605; 83735; 84100; 84132; 84145; 84300; 84443; 84550; 85025; 85610; 85730; 86021; 86022; 86038; 86140; 86200; 86225; 86430; 86480; 86850; 86900; 86901; 87040; 87070; 87075; 87077; 87086; 87088; 87186; 87205; 87389; 87811; 88304; 93005; 93306; 94002; 94003; 94010; 94640; 94660; 94760; 97110; 97161; 97165; 97530; 99285; J0171; J0696; J1100; J1644; J1650; J1720; J1940; J2003; J2185; J2250; J2270; J2543; J2704; J2919; J3010; J3475; J3480; J7030; J7040; J7050; J7060; J7120; J7121; J7512; J7613; P9047; Q9967